=== PATIENT | male | born 1980 | race Caucasian/White ===

== ENCOUNTER 2018-07-08 14:22 | Emergency (ER) | payer MEDICAID, SELFPAY ==
[2018-07-08 14:23] VITALS: BP 155/99; PULSE 104; RESP 18; TEMP 36.2; O2SAT 99; BMI 23.3
--- NOTE | 2018-07-08 15:07 | ED.VISSUMM ---
- ER Visit Summary Date of Service: 07/08/18 Chief Complaint: Left flank pain History of Present Illness: The patient is a 37 M presenting with left flank pain. Patient states this started after lunch today. He has pain in the left flank. He states this morning he noted blood in his urine. He has a family history of kidney stones, no personal history of kidney stones. He has nausea with no vomiting. No fever. Denies other complaints. Physical Examination: Vitals are stable. Patient is afebrile. Alert no acute distress. HEENT exam is unremarkable. Neck is supple. Lungs are clear and equal bilaterally. Heart is regular rate and rhythm. Abdomen is soft nontender nondistended. No guarding or rebound Back: Left CVA tenderness Extremities are unremarkable. Skin is warm and dry. Remainder of exam is unremarkable. Emergency Department Course and Treatment: Patient was given IV morphine, zofran, toradol. CT flank shows left hydronephrosis secondary to 6 mm calculus at the ureteropelvic junction. Urinalysis shows 0 white blood cells, over 100 red blood cells. On reevaluation, patient is resting comfortably. He is given prescription for [place] and Zofran. Advised to follow-up with . Advised return to ED if worsening complaints. Disposition: Discharge home Impression: Urolithiasis This note was generated with [employer] dictation software. It may contain incorrect words, spelling, and punctuation that were not noted in review of the chart prior to signing ED Disposition - Plan for ED Patient: Referrals: Ramiro Sheets MD [Primary Care Provider] -
--- NOTE | 2018-07-08 15:09 | CT_ITS ---
STUDY: CT ABDOMEN AND PELVIS WITHOUT CONTRAST REASON FOR EXAM: Male, 37 years old. Left flank pain, hematuria. RADIATION DOSAGE (If Supplied By Facility): CTDIvol = ( 12.15 ) mGy, DLP = ( 682.99 ) mGycm TECHNIQUE: Transaxial images were obtained from the dome of the diaphragm to the symphysis pubis without oral contrast, and without intravenous contrast. Sagittal and coronal images were reconstructed. Individualized dose optimization techniques were used for this CT. COMPARISON: None. FINDINGS: Body wall soft tissues: No acute process. Osseous structures: No acute process. Mild scoliosis. Minimal lumbar spondylosis without evidence of significant stenosis. There is mild foraminal narrowing on the right at L5-S1 secondary to disc narrowing and posterior lateral disc margin osteophytic lipping. Inferior chest: Lung bases clear, normal distal esophagus, mild cardiomegaly, ectasia in particular of the left ventricle compared to the other chambers, coronary calcifications present in the proximal circumflex, proximal LAD, distal RCA. Hepatobiliary: Unremarkable liver, gallbladder and biliary tree. Pancreas: No acute process. Spleen: Normal. Adrenal glands: Normal. Urogenital: 3 punctate nonobstructing calyceal calculi are present in the right kidney without right-sided hydronephrosis or hydroureter. There is mild acute left hydronephrosis with renal plethora, perinephric stranding, grade 1 bordering on grade 2 pelvocaliectasis, retained nonobstructing calyceal calculi in the mid polar and inferior pole calyces, the largest measuring about 6 mm, calculus at the ureteropelvic junction measuring approximate 6 mm contributing to obstruction. Distal ureters normal. Unremarkable urinary bladder, prostate and seminal vesicles. Grossly simple appearing cyst of the left kidney measures 11.6 mm, oval shaped, sharply circumscribed margins, central water density. Pelvic floor and sidewalls and retroperitoneum: No mass or adenopathy. Vasculature: No acute process. Stomach: No acute process. Small bowel and mesentery: No acute process. Large bowel: Normal appendix. Unremarkable large bowel and rectum. Free fluid or free air: None. CT/Abdomen/Pelvis without Cont IMPRESSION: Left hydronephrosis secondary to 6 mm calculus at the ureteropelvic junction. Retained calyceal calculi in the right and left kidneys more numerous and larger on the left. Grossly simple appearing left renal cyst measuring 11.6 mm, incompletely characterized on noncontrast CT. Mild cardiomegaly. Ectasia in particular of the left ventricle compared to the other chambers. Coronary calcifications unusual for the patient's age. Electronically Signed: Lawson Ferris MD at 16:27 EST Tel , Service support ,
[2018-07-08] MEDS: Morphine 4 MG/ML Syringe IV (15:47)
[2018-07-08] MEDS: Ondansetron 4 MG/2 ML Vial IV (15:47)
[2018-07-08] MEDS: Ketorolac 30 MG/ML Syringe IV (15:48)
[2018-07-08 16:11] LABS: Bacteria 0 SEEN /hpf (None Seen); Mucous, Urine 0 SEEN /hpf (<or=2+); Squamous Epithelial Cells - UA 0 SEEN /hpf (0-5); White Blood Cells 0 SEEN /hpf (0-5)
[2018-07-08 16:36] LABS: Color, Urine Yellow (Yellow); Glucose, Dipstick Normal (Normal); Ketone-Dipstick 5 mg/dl (Negative); Leukocyte Esterase-Dipstick 25 /ul (Negative); Nitrite-Dipstick Negative (Negative); Occult Blood-Urine 250 /ul (Negative); Protein-Dipstick 30 mg/dl (Negative); Specific Gravity, Urine 1.015 (1.002-1.030); Urine Bilirubin Dipstick Negative (Negative); Urine Clarity Cloudy (Clear); Urine Urobilinogen Normal (Normal)
[2018-07-08 16:49] LABS: Red Blood Cells-Urine > 100 SEEN /hpf (0-5)
--- NOTE | 2018-07-08 16:54 | DCINST.ED_ITS ---
ED Disposition - Plan for ED Patient: Instructions: ED Stone Renal W Colic Prescriptions: Hydrocodone Bitart/Apap 5-325 [[place] 5MG-325MG] 1 tablet PO Q6H PRN PRN 3 Days #10 tablet PRN Reason: Pain Ondansetron [Zofran Odt] 4 mg PO Q8H PRN PRN #10 tablet PRN Reason: Nausea Referrals: Ramiro Sheets MD [Primary Care Provider] - Salvador Rush MD [STAFF PHYSICIAN] -
[2018-07-08 17:25] VITALS: BP 131/89; PULSE 86; RESP 16; O2SAT 97
== END 2018-07-08 17:28 | disposition home or self-care (01) ==
PROVIDERS: Emergency Provider Emergency Medicine; Family Provider Family Medicine; PCP Family Medicine
DX: N13.2 Hydronephrosis with renal and ureteral calculous obstruction (principal); I10 Essential (primary) hypertension; E78.00 Pure hypercholesterolemia, unspecified; Z84.1 Family history of disorders of kidney and ureter
CPT/HCPCS: 74176; 81001; 96374; 96375; 99283; A4216; J2405

== ENCOUNTER → 2021-03-02 17:09 | Outpatient (CLI) | payer MEDICAID, SELFPAY ==
--- NOTE | 2021-03-02 17:42 | CT_ITS ---
STUDY: CT ABDOMEN AND PELVIS WITHOUT CONTRAST REASON FOR EXAM: Male, 40 years old. Hematuria RADIATION DOSAGE (If Supplied By Facility): CTDIvol = ( 10.29 ) mGy, DLP = ( 570.84 ) mGycm TECHNIQUE: Transaxial images were obtained from the dome of the diaphragm to the symphysis pubis without oral contrast, and without intravenous contrast. Sagittal and coronal images were reconstructed. Individualized dose optimization techniques were used for this CT. COMPARISON: 07/08/2018 FINDINGS: The visualized lung bases demonstrate atelectasis and some groundglass opacity. The visualized portions of the heart are within normal limits. Normal liver. Normal gallbladder and extrahepatic biliary system. Normal spleen. Normal pancreas. Normal bilateral adrenal glands. Normal right kidney. Normal left kidney. There are multiple bilateral coarse renal stones most notably however is an obstructing stone in the distal left ureter measuring up to 6 mm. Normal visualized stomach. Normal small intestine. Normal colon. The appendix is visualized and appears normal. Normal abdominal aorta. Normal inferior vena cava. Normal retroperitoneum. Multiple bladder calculi. There are prostatic calcifications. Normal abdominal wall. Normal osseous structures. CT/Abdomen/Pelvis without Cont IMPRESSION: Obstructing stone of the distal left ureter with moderate associated hydroureteronephrosis. Bladder calculi. Multiple coarse bilateral nonobstructing renal calyceal stones. Electronically Signed: Alejo Ledesma MD at 18:21 EDT Tel , Service support ,
== END ==
PROVIDERS: PCP Family Medicine
DX: R31.0 Gross hematuria (principal); R10.9 Unspecified abdominal pain
CPT/HCPCS: 74176

== ENCOUNTER 2021-03-03 09:02 | Emergency (ER) | payer MEDICAID, SELFPAY ==
[2021-03-03 09:03] VITALS: BP 166/104; PULSE 111; RESP 16; TEMP 36; O2SAT 98; BMI 28.4
--- NOTE | 2021-03-03 09:28 | EDS_ITS ---
HPI History of Present Illness Chief Complaint: Flank Pain Informant: patient and other Onset/Context/Timing Onset: Yesterday Context: Sudden Onset Timing: Continuous Quality: Burning Location: Left flank Worsened by: Nothing Relieved by: Nothing Associated Symptoms Associated Symptoms: Nausea, vomiting, hematuria Narrative Narrative: Patient presents with left flank pain that began yesterday. Patient states it began suddenly. Patient states it radiates into his left lower abdomen. Patient describes his pain as burning. Patient states nothing makes it better nothing makes it worse. Patient noted some blood in his urine today. Patient had an outpatient CT scan done yesterday which showed a left distal ureteral calculus measuring up to 6 mm. Patient states his pain became worse today. Patient had nausea and vomiting yesterday. Prior similar symptoms: Yes PFSH PFSH Medical History (Updated 03/03/21 @ 12:[address] Harman Toro DO) Kidney stone Home Medications atorvastatin 20 mg PO QHS 07/08/18 [History Last Taken Unknown] clonidine HCl 0.1 mg PO BID 07/08/18 [History Last Taken Unknown] fenofibrate nanocrystallized 145 mg PO DAILY 07/08/18 [History Last Taken Unknown] folic acid 0.4 mg PO DAILY@0800 07/08/18 [History Last Taken Unknown] garlic 350 mg PO DAILY 07/08/18 [History Last Taken Unknown] loratadine [Claritin] 10 mg PO DAILY 07/08/18 [History Last Taken Unknown] uipbjezu-tnk-QW-lycopen-lutein [Certavite Sr-Antioxidant Tab] 1 ea PO DAILY 07/08/18 [History Last Taken Unknown] omega-3 fatty acids-fish oil [Fish Oil 1,000 mg Capsule] 3 ea PO DAILY 07/08/18 [History Last Taken Unknown] ondansetron 4 mg PO Q8H PRN PRN #10 tab 07/08/18 [Rx Last Taken Unknown] oxycodone-acetaminophen 1 tab PO Q6H PRN PRN 3 Days #12 tablet 03/03/21 [Rx Last Taken Unknown] Allergy/AdvReac Type Severity Reaction Status Date / Time risperidone [From Risperdal] Allergy Unknown Verified 03/03/21 09:07 Surgical History no surgical history no surgical history Social History Smoking Status: Never smoker ROS ROS ED Constitutional Constitutional ED: Reports sweats; Denies chills or fever(s) Eyes Eyes: Denies blurry vision or change in vision ENT ENT ED: Denies rhinorrhea or sore throat Cardiovascular Cardiovascular: Denies chest pain or palpitations Respiratory/Chest Respiratory/Chest: Denies cough or dyspnea Gastrointestinal Gastrointestinal: Reports abdominal pain, nausea and vomiting Genitourinary Genitourinary ED: Reports hematuria; Denies dysuria Musculoskeletal Musculoskeletal: Reports back pain; Denies neck pain Integumentary Denies abscess or rash Neurologic Neurologic: Reports headache(s); Denies weakness Allergic/Immunologic Allergic/Immunologic ED: Denies mouth swelling or urticaria EXAM Physical Exam Const Vital Signs: 03/03/21 09:03 Temperature 96.8 F L Temperature Source Temporal Pulse Rate 111 H Respiratory Rate 16 Blood Pressure 166/104 H Blood Pressure Mean 124 Pulse Ox 98 Oxygen Delivery Method Room Air Positive well nourished and well developed General Appearance ED: well developed HEENT Reports moist mucous membranes Neck supple and no JVD Resp normal respiratory effort and clear to auscultation bilaterally Cardio regular rate, regular rhythm and no murmurs GI normal to inspection, nondistended, normoactive bowel sounds Palpation: soft and tender LLQ; Negative for guarding or rebound tenderness present Back/Spine General Back: CVA tenderness left Extremity normal to inspection General Extremety ED: Negative for edema or tenderness General Extremity: Negative for edema Neuro oriented x3, CN's II-XII intact bilaterally and no sensory deficits noted Sensorium / Orientation: alert Motor Exam: strength 5/5 throughout Psych mental status grossly normal Skin no rashes or lesions noted MDM MDM MDM Narrative Medical decision making narrative: Patient was given IV fluids, morphine, Zofran, and Toradol. CBC shows a leukocytosis of 16.4. Urinalysis does not show any evidence of urinary tract infection. Basic metabolic profile was within normal limits. Patient is feeling better on reevaluation. Patient was instructed to drink plenty of fluids. Patient was given a prescription for Percocet. Patient was given a referral for urology. Patient was instructed to return if worse in any way. Patient and caregiver understood and were agreeable with the plan. All questions were answered. Lab Data Attestation: I reviewed the patient's lab results. Labs: Laboratory Results - last 24 hr 1003/03/21 03/03/21 09:25 09:25 10:28 WBC 16.4 H RBC 5.39 Hgb 15.8 Hct 46.3 MCV 85.9 MCH 29.3 MCHC 34.1 RDW Std Deviation 40.0 RDW Coeff of Jaime 13.0 Plt Count 400 MPV 9.1 Immature Gran % (Auto) 0.500 Neut % (Auto) 82.4 H Lymph % (Auto) 11.9 L [place] % (Auto) 3.8 Eos % (Auto) 0.9 Baso % (Auto) 0.5 Absolute Neuts (auto) 13.5 H Absolute Lymphs (auto) 1.95 Nucleated RBC % 0 Sodium 137 Potassium 3.8 Chloride 104 Carbon Dioxide 25.0 Anion Gap 8 BUN 17 Creatinine 1.45 H Estim Creat Clear Calc 59.89 Est GFR (MDRD) Af Amer 69 Est GFR (MDRD) Non-Af 57 L BUN/Creatinine Ratio 11.7 Glucose 123 H Calcium 10.2 H Urine Color Yellow Urine Clarity Clear Urine pH 8.0 Ur Specific [place] 1.015 Urine Protein Negative Urine Glucose (UA) Normal Urine Ketones Negative Urine Occult Blood 50 H Urine Nitrite Negative Urine Bilirubin Negative Urine Urobilinogen Normal Ur Leukocyte Esterase Negative Urine RBC 5-10 SEEN Urine WBC 0-5 SEEN Ur Squamous Epith Cells 0-5 SEEN Urine Bacteria RARE Urine Mucus 1+ Discharge Plan Triage Chief Complaint: Flank Pain ED Provider: Harman Toro Dx/Rx/DC Orders Clinical Impression: Calculus of distal left ureter Instructions: ED Kidney Stone w/ Colic Prescriptions: New oxycodone-acetaminophen [oxycodone-acetaminophen] 1 TABLET tablet 1 tab PO Q6H PRN PRN (Reason: Pain) 3 Days Qty: 12 RF: 0 No Action clonidine HCl 0.1 MG tablet 0.1 mg PO BID RF: 0 atorvastatin 20 MG tablet 20 mg PO QHS RF: 0 folic acid 0.4 MG tablet 0.4 mg PO DAILY@0800 RF: 0 feyihltt-hce-FZ-lycopen-lutein [CertaVite Senior] 1 EACH tablet 1 ea PO DAILY RF: 0 fenofibrate nanocrystallized 145 MG tablet 145 mg PO DAILY RF: 0 omega-3 fatty acids-fish oil [Fish Oil] 1 EACH capsule 3 ea PO DAILY RF: 0 loratadine [Claritin Liqui-Gel] 10 MG capsule 10 mg PO DAILY RF: 0 garlic 200 MG tablet 350 mg PO DAILY RF: 0 ondansetron 4 MG tablet 4 mg PO Q8H PRN PRN (Reason: Nausea) Qty: 10 RF: 0 Primary Care Provider: Ramiro Sheets Referrals: Ramiro Sheets MD [Primary Care Provider] - 3-5 Days Salvador Rush MD [STAFF PHYSICIAN] - 3-5 Days Disposition Disposition: Home, Self Care
[2021-03-03 09:39] LABS: Absolute Lymphocyte Count 1.95 X10^3/uL (0.83-4.51); Absolute Neutrophil Count 13.5 X10^3/uL (2.0-7.7); Basophil# 0.08 X10^3/uL; Basophil% 0.5 % (0-1); Eosinophil# 0.15 X10^3/uL; Eosinophils% 0.9 % (0-5); Hematocrit 46.3 % (40-54); Hemoglobin 15.8 g/dL (13.0-16.5); Lymphocyte # 1.95 X10^3/ul (0.83-4.51); Lymphocyte % 11.9 % (19-41); Mean Corp Hgb Conc 34.1 g/dL (32-36); Mean Corpuscular Hgb 29.3 pg (27.0-32.0); Mean Corpuscular Volume 85.9 fL (80-94); Mean Platelet Vol. 9.1 fl (6.2-12.0); Monocyte# 0.63 X10^3/uL; Monocyte% 3.8 % (0-10); NRBC Flagged by Analyzer 0 % (0-5); Neutrophil # 13.49 X10^3/uL (2.7-7.7); Neutrophil % 82.4 % (47-70); Platelet Count 400 K/mm3 (150-450); Red Blood Count 5.39 M/mm3 (4.6-6.2); White Blood Count 16.4 K/mm3 (4.4-11.0)
[2021-03-03 09:53] LABS: Anion Gap 8 (5-15); BUN 17 mg/dL (7-18); BUN/Creat Ratio 11.7 RATIO (10-20); Calcium,Total 10.2 mg/dL (8.5-10.1); Chloride 104 mmol/L (98-107); Creatinine, Serum 1.45 mg/dL (0.70-1.30); EST Glomerular Filtration Rate 57 mL/min (>60); Est Glom Filt Rate - Afr Amer 69 mL/min (>60); Estimated Creatinine Clearance 59.89 ml/min; Glucose 123 mg/dL (74-106); Potassium 3.8 mmol/L (3.5-5.1); Sodium Level 137 mmol/L (136-145)
[2021-03-03] MEDS: 0.9% Normal Saline 1,000 ML 1000 ML IV (10:34)
[2021-03-03 10:35] LABS: Color, Urine Yellow (Yellow); Glucose, Dipstick Normal (Normal); Ketone-Dipstick Negative (Negative); Leukocyte Esterase-Dipstick Negative /ul (Negative); Nitrite-Dipstick Negative (Negative); Occult Blood-Urine 50 /ul (Negative); Protein-Dipstick Negative (Negative); Specific Gravity, Urine 1.015 (1.002-1.030); Urine Bilirubin Dipstick Negative (Negative); Urine Clarity Clear (Clear); Urine Urobilinogen Normal (Normal)
[2021-03-03] MEDS: Ondansetron 4 MG/2 ML Vial IV (10:38)
[2021-03-03] MEDS: Ketorolac 30 MG/ML Syringe IV (10:38)
[2021-03-03] MEDS: Morphine 4 MG/ML Syringe IV (10:39)
[2021-03-03 10:41] LABS: Bacteria RARE /hpf (None Seen); Mucous, Urine 1+ /hpf (<or=2+); Red Blood Cells-Urine 5-10 SEEN /hpf (0-5); Squamous Epithelial Cells - UA 0-5 SEEN /hpf (0-5); White Blood Cells 0-5 SEEN /hpf (0-5)
[2021-03-03 12:28] VITALS: PULSE 71; RESP 16; O2SAT 99
--- NOTE | 2021-03-03 12:28 | ED.RN ---
THIS NURSE REVIEWED D/C INSTRUCTIONS WITH PT AND CIVIL RIGHTS REPRESENTATIVE. BOTH VERBALIZED UNDERSTANDING OF INSTRUCTIONS. IV D/C. IV CATHETER INTACT. PT TOLERATED WELL. PT DENIES FURTHER NEEDS OR QUESTIONS AT THIS TIME. PT AMBULATES FROM ROOM ON OWN WITHOUT ASSISTANCE FROM STAFF
== END 2021-03-03 12:37 | disposition home or self-care (01) ==
PROVIDERS: Emergency Provider Emergency Medicine; PCP Family Medicine
DX: N20.2 Calculus of kidney with calculus of ureter (principal)
CPT/HCPCS: 80048; 81001; 85025; 96361; 96374; 96375; 99283; J7030; A4216; J2405

== ENCOUNTER → 2022-02-23 | Outpatient (CLI) | payer MEDICAID, SELFPAY ==
[2022-02-23 08:50] LABS: Hematocrit 45.8 % (40-54); Hemoglobin 15.4 g/dL (13.0-16.5); Mean Corp Hgb Conc 33.6 g/dL (32-36); Mean Corpuscular Hgb 29.1 pg (27.0-32.0); Mean Corpuscular Volume 86.4 fL (80-94); Mean Platelet Vol. 9.4 fl (6.2-12.0); Platelet Count 382 K/mm3 (150-450); RBC Distribution Width CV 13.4 % (11.6-14.6); White Blood Count 9.8 K/mm3 (4.4-11.0)
[2022-02-23 09:17] LABS: ALB/GLOB Ratio 1.2 RATIO (0.9-2.4); AST(SGOT) 53 U/L (15-37); Alanine Aminotransfer ALT/SGPT 120 U/L (16-61); Alkaline Phosphatase 72 U/L (45-117); Anion Gap 8 (5-15); BUN 10 mg/dL (7-18); BUN/Creat Ratio 9.9 RATIO (10-20); Calcium,Total 9.5 mg/dL (8.5-10.1); Chloride 108 mmol/L (98-107); Creatinine, Serum 1.01 mg/dL (0.70-1.30); EST Glomerular Filtration Rate 86 mL/min (>60); Est Glom Filt Rate - Afr Amer 104 mL/min (>60); Globulin 3.4 g/dL (2.2-4.2); Glucose 113 mg/dL (74-106); Potassium 3.7 mmol/L (3.5-5.1); Protein, Total 7.4 g/dL (6.4-8.2); Sodium Level 140 mmol/L (136-145)
[2022-02-23 09:21] LABS: Hemoglobin A1c 5.8 % (3.8-5.6)
[2022-02-26 02:48] LABS: Cholesterol 199 mg/dL (200); High Density Lipoprotein 35 mg/dL; Triglycerides 239 mg/dL; Very Low Density Lipoprotein 48 mg/dL (5-40)
[2022-02-27 17:52] LABS: Trileptal-Oxcarbazepine 22 ug/mL (10-35)
== END | disposition home or self-care (01) ==
LOC: LAB 07:58
PROVIDERS: PCP Family Medicine; Referring Provider Psychiatry & Neurology Child & Adolescent Psychiatry; Visit Provider Psychiatry & Neurology Child & Adolescent Psychiatry
DX: Z79.899 Other long term (current) drug therapy (principal)
CPT/HCPCS: 36415; 80053; 80061; 82542; 83036; 85027

== ENCOUNTER 2022-04-17 09:39 | Emergency (ER) | payer MEDICAID, SELFPAY ==
[2022-04-17 09:39] VITALS: BP 165/106; PULSE 87; RESP 16; TEMP 36.3; O2SAT 97; BMI 30.9
--- NOTE | 2022-04-17 10:21 | CT_ITS ---
STUDY: CT BRAIN WITHOUT CONTRAST REASON FOR EXAM: Male, 41 years old. Encephalopathy RADIATION DOSAGE (If Supplied By Facility): CTDIvol = ( 44.99 ) mGy, DLP = ( 779.24 ) mGycm TECHNIQUE: Transaxial CT imaging of the brain was performed without administration of intravenous contrast material. Individualized dose optimization techniques were used for this CT. COMPARISON: No relevant priors. FINDINGS: Normal soft tissue structures. Normal calvarium. Normal size ventricles and extra-axial spaces for the patient''s age. Normal white matter tracts of the cerebral hemispheres. Normal basal ganglia and thalami. Normal brainstem. Normal cerebellum. There is no intracranial hemorrhage. There are no findings of an acute ischemic infarction. Mucous retention cyst in the left maxillary sinus consistent with chronic sinusitis. CT/Brain/Head without Contrast IMPRESSION: Normal unenhanced CT scan of the brain. Electronically Signed: Lawson Bal MD at 10:50 EST ,
--- NOTE | 2022-04-17 10:21 | EX.ED.DYSGE1 ---
HPI History of Present Illness Chief Complaint: Hypertension Narrative Narrative: 41-year-old male past medical history of IDD, hyper cholesterolemia presents with caregiver because of headaches and elevated blood pressure. They state that he is not on blood pressure medication, but today his blood pressure was elevated above 200 systolic. He denies any chest pain or shortness of breath. No nausea or vomiting, no other symptoms. While his blood pressure may have come down and is currently 165/106, they state that he needs to be evaluated. He has been getting headaches recently and he states he gets them all the time. He took Tylenol this morning. He has an appoint with his primary care provider on to address his blood pressure readings which have been elevated recently, but caregiver states that he had a family member recently so he is under a lot of stress. [facility] Medical History Kidney stone Home Medications atorvastatin 20 mg tablet 20 mg PO QHS 07/08/18 [History Last Taken Unknown] clonidine HCl 0.1 mg tablet 0.1 mg PO BID 07/08/18 [History Last Taken Unknown] fenofibrate nanocrystallized 145 mg tablet 145 mg PO DAILY 07/08/18 [History Last Taken Unknown] folic acid 400 mcg tablet 0.4 mg PO DAILY@0800 07/08/18 [History Last Taken Unknown] garlic 200 mg tablet 350 mg PO DAILY 07/08/18 [History Last Taken Unknown] loratadine 10 mg capsule (Claritin Liqui-Gel) 10 mg PO DAILY 07/08/18 [History Last Taken Unknown] krwenbcx-rwq-xsmxf acid 0.4 mg-lycopene 300 mcg-lutein 250 mcg tablet (CertaVite Senior) 1 ea PO DAILY 07/08/18 [History Last Taken Unknown] omega-3 fatty acids-fish oil 340 mg-1,000 mg capsule (Fish Oil) 3 ea PO DAILY 07/08/18 [History Last Taken Unknown] ondansetron 4 mg disintegrating tablet 4 mg PO Q8H PRN PRN Nausea #10 tabs 07/08/18 [Rx Last Taken Unknown] oxycodone-acetaminophen 5 mg-325 mg tablet 1 tab PO Q6H PRN PRN Pain 3 days #12 TABLETS 03/03/21 [Rx Last Taken Unknown] dexamethasone 6 mg tablet 6 mg PO DAILY #5 tabs 02/09/22 [Rx Last Taken Unknown] quetiapine 150 mg tablet,extended release 24 hr tablet PO 02/09/22 [History Last Taken Unknown] Allergy/AdvReac Type Severity Reaction Status Date / Time risperidone [From Risperdal] Allergy Unknown Verified 04/17/22 09:43 Social History Smoking Status: Never smoker ROS ROS ED ROS Narrative Constitutional: No fever, no chills. Elevated blood pressure reading this morning above 200 systolic. HEENT: No sore throat. No neck pain. No loss of vision. No rhinorrhea. Cardiovascular: No chest pain. No palpitations. No pedal edema. Respiratory: No cough, no shortness of breath. Abdominal: No abdominal pain. No nausea. No vomiting. Genitourinary: No dysuria. No hematuria. Musculoskeletal: No myalgias. No arthralgias. Neurologic: Positive headaches. No dizziness. No lightheadedness. Skin: No rash. No change in color. Psychiatric: No depression. No anxiety. EXAM Physical Exam Narrative Exam Narrative: Afebrile. Vital signs noted. HEENT: Normocephalic. Atraumatic. PERRL, EOMI. Neck soft and supple. No point tenderness or step off. Cardiovascular: Regular rate and rhythm. No murmurs, rubs, or gallops appreciated. Respiratory: No tachypnea. Lungs clear to auscultation bilaterally. Gastrointestinal: Abdomen soft, nontender, with normoactive bowel sounds. No rebound or guarding. Neurological: Awake. Alert. Oriented x3, consistent with IDD, nonfocal, nonlateralizing. Skin: No rash. Normal color. No pallor. Musculoskeletal: No pedal edema. Full range of motion extremities. Const Vital Signs: 04/17/22 09:39 Temperature 97.3 F L Temperature Source Temporal Pulse Rate 87 Respiratory Rate 16 Blood Pressure 165/106 H Blood Pressure Mean 125 Pulse Ox 97 Oxygen Delivery Method Room Air MDM MDM MDM Narrative Medical decision making narrative: CT of the brain was obtained. His current blood pressure is 165/106. I see in his medications that he used to take clonidine 0.1 mg twice a day, but that was in 2019. They confirmed that he takes clonidine 0.2 mg, but this may not be necessary for his blood pressure. Blood pressure reading currently is 165/106. This is come down considerably from his reported above [address] of the brain was obtained which shows no evidence of acute hemorrhage. At this point in time, I feel he can be discharged to follow-up with his primary care provider. They already have a scheduled appointment. Return instructions were reviewed. Disposition is discharged home in stable condition. Radiography Diagnostic Testing: Clinical Impression(s) from Imaging Studies Brain CT 04/17/22 10:21 IMPRESSION: Normal unenhanced CT scan of the brain. Electronically Signed: Lawson Bal MD at 10:50 EST , Discharge Plan Triage Chief Complaint: Hypertension ED Provider: Guero Foster Dx/Rx/DC Orders Clinical Impression: Headache, Elevated blood pressure reading Instructions: ED Hypertension, To Be Confirmed Prescriptions: No Action quetiapine 150 mg tablet extended release 24 hr PO Label Comments: TAKE 1 TABLET BY MOUTHEONCE DAILY AT 4PM dexamethasone 6 mg tablet 6 mg PO DAILY Qty: 5 0RF clonidine HCl 0.1 MG tablet 0.1 mg PO BID atorvastatin 20 MG tablet 20 mg PO QHS folic acid 0.4 MG tablet 0.4 mg PO DAILY@0800 owbuozlh-ebg-GN-lycopen-lutein [CertaVite Senior] 1 EACH tablet 1 ea PO DAILY fenofibrate nanocrystallized 145 MG tablet 145 mg PO DAILY omega-3 fatty acids-fish oil [Fish Oil] 1 EACH capsule 3 ea PO DAILY loratadine [Claritin Liqui-Gel] 10 MG capsule 10 mg PO DAILY garlic 200 MG tablet 350 mg PO DAILY ondansetron 4 MG tablet 4 mg PO Q8H PRN PRN (Reason: Nausea) Qty: 10 0RF oxycodone-acetaminophen [oxycodone-acetaminophen] 1 TABLET tablet 1 tab PO Q6H PRN PRN (Reason: Pain) 3 Days Qty: 12 0RF Primary Care Provider: Ramiro Sheets Referrals: Ramiro Sheets MD [Primary Care Provider] - [facility] appointment Disposition Disposition: Home, Self Care
[2022-04-17 11:29] VITALS: BP 166/95; PULSE 67; RESP 16; O2SAT 97
== END 2022-04-17 11:29 | disposition home or self-care (01) ==
PROVIDERS: Emergency Provider Emergency Medicine; PCP Family Medicine; Visit Provider Emergency Medicine
DX: R51.9 Headache, unspecified (principal); R03.0 Elevated blood-pressure reading, without diagnosis of hypertension; E78.00 Pure hypercholesterolemia, unspecified; Z63.4 Disappearance and death of family member
CPT/HCPCS: 70450; 99282

== ENCOUNTER → 2022-08-09 | Outpatient (CLI) | payer MEDICAID, SELFPAY ==
[2022-08-09 10:38] LABS: ALB/GLOB Ratio 1.3 RATIO (0.9-2.4); AST(SGOT) 63 U/L (15-37); Alanine Aminotransfer ALT/SGPT 138 U/L (16-61); Albumin, Serum 4.1 g/dL (3.2-5.0); Alkaline Phosphatase 56 U/L (45-117); Anion Gap 5 (5-15); BUN 13 mg/dL (7-18); BUN/Creat Ratio 11.7 RATIO (10-20); Chloride 105 mmol/L (98-107); Cholesterol 151 mg/dL (200); Creatinine, Serum 1.11 mg/dL (0.70-1.30); EST Glomerular Filtration Rate 77 mL/min (>60); Est Glom Filt Rate - Afr Amer 93 mL/min (>60); Globulin 3.2 g/dL (2.2-4.2); Glucose 91 mg/dL (74-106); High Density Lipoprotein 42 mg/dL; Potassium 3.9 mmol/L (3.5-5.1); Protein, Total 7.3 g/dL (6.4-8.2); Sodium Level 136 mmol/L (136-145); Triglycerides 142 mg/dL; Very Low Density Lipoprotein 28 mg/dL (5-40)
[2022-08-09 10:43] LABS: Hemoglobin A1c 5.4 % (3.8-5.6)
== END | disposition home or self-care (01) ==
LOC: LAB 08:53
PROVIDERS: PCP Family Medicine; Visit Provider Psychiatry & Neurology Child & Adolescent Psychiatry
DX: Z79.899 Other long term (current) drug therapy (principal)
CPT/HCPCS: 36415; 80053; 80061; 83036

== ENCOUNTER → 2023-05-29 | Outpatient (CLI) | payer MEDICAID, SELFPAY | END | disposition home or self-care (01) | LOC: LABSPEC 12:12 | PROVIDERS: PCP Family Medicine; Referring Provider Physician Assistant; Visit Provider Physician Assistant | DX: R30.0 Dysuria (principal) | CPT/HCPCS: 87077; 87086; 87088 ==

== ENCOUNTER 2023-07-16 10:00 | Outpatient (RCR) | payer MEDICAID, SELFPAY ==
--- NOTE | 2023-06-03 12:52 | HP.PTEVAL_ITS ---
Patient's Visit Information Visit Information Visit Information: CHAN ACE is a 42 year old M referred to Physical Therapy by Dr. 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 Date of Evaluation: 06/03/23 Physical Therapist: Milly Andrew PT, Cert MDT Visit Plan Frequency: 2x /Week Duration: 4-6 Weeks Plan: POSTURE CORRECTION/STRENGTHENING, INSTRUCTION IN APPROPRIATE BODY MECHANICS WITH WORK SIMULATION AND ACTIVITY MODIFICATIONS. DLS STARTING WITH A NEUTRAL SPINE PROGRESSING ROM TOLERATED. LATOYA LE ROM, STRETCHING AND STRENGTHENING. HEP INSTRUCTION. 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 PATIENT LIVES IN A PRISON WITH EXHAUST AND MUFFLER FITTER CARE AVAILABLE. Disability: MILD INTELECTUALLY DISABLITIY. IMPULSE CONTROL DISORDER. Delusional Personality Disorder. Present symptoms: MID BACK PAIN. SHARP PAIN IN L THIGH (PATIENT POINTS TO PROXIMAL L THIGH AND REPORTS IT STARTED WHEN HE GOT TO WORK TODAY AND TODAY IS THE FIRST DAY HE HAD IT). Present since: ABOUT A YEAR Pain Scale: WORST 9/10, LEAST 7/10 Currently: 9/10 Is it getting better, worse or staying the same: STAYING THE SAME Commenced as a result of: NO APPARENT REASON OTHER THAN SLEEPING ON THE FLOOR FROM TIME TO TIME. Symptoms at onset: SAME Worse: WHEN I LIFT UP THOSE HEAVY PLATES, TAKING THE TRASH OUT AND LIFTING IT UP TO THROW IT IN THE DUMPSTER. Better: SITTING IN THE RECLINER UPSTAIRS Disturbed sleep: YES Previous history/Previous treatment: PAIN MEDICATION PRESCRIBED BY DOCTOR A YEAR AGO AND STILL TAKES IT ON AND OFF. SEEMED TO HELP INITALLY BUT NOT HELPING MUCH NOW. ICE PACKS. NO BACK SURGERY OR CHIROPRACTIC. Coughing/sneezing/straining: POSITIVE FOR INCREASED BACK PAIN. Gait: NO AD USE. WALKING USUALLY DOES NOT INCREASE PAIN UNLESS REALLY FAR LIKE SHOPPING AT [employer]. Bowel or Bladder Dysfunction: NO Accidents: NO Unexplained weight loss: NO Imaging: BACK X-RAYS ABOUT A YEAR AGO THAT SHOWED MODERATE ARTHRITIS PER SENIOR SHAREPOINT ARCHITECT REPORT. PMH/Recent major surgery: HTN, HIGH CHOLESTEROL, SEE DISABILITIES ABOVE. FLAT FEET - ORIF LATOYA ANKLES. OTHER: PATIENTS CAREGIVER NATALIE IS WITH HIM THROUGHOUT THE EVAL TODAY. Objective Objective: Sitting/Standing Posture: POOR. FH. RSH'S. INCREASED KYPHOSIS. DECREASED LORDOSIS. NO RELEVANT LATERAL SHIFT. Active Correction of posture: ABLE TO CORRECT BUT DOES NOT MAINTAIN. Other Observations: POOR POSTURAL AWARENESS. INDEP GAIT AND TRANSFERS. RESPONDS BETTER TO VISUAL CUES THAN VERBAL CUES ALONE. GENERALLY PLEASANT AND COOPERATIVE TO WORK WITH. EXPRESSING APPRECIATION FOR HELP WITH HIS PAIN. FAIR HISTORIAN BUT LOOKS TO HIS CAREGIVER TO HELP WITH HIS HISTORY AT TIMES. Sensory deficit: LATOYA UE AND LE LIGHT TOUCH SENSATION APPEARS GROSSLY INTACT AND SYMMETRICAL ROM deficit: LATOYA UE AND LE ROM WFL BUT LE HS AND CALF TIGHTNESS EVIDENT. Motor deficit: LATOYA UE AND LE STRENGTH GROSSLY 5/5 WITH MMT'ING AND PATIENT DENIES INCREASED PAIN WITH TESTING AND DOES NOT EXHIBIT PAIN BEHAVIOR WITH TESTING. Reflexes: UNABLE TO ELICIT LATOYA UE DTR'S BUT LATOYA LE DTR'S 2/3. Lumbar mvmt loss: flex - MIN ext - MOD R SG - MOD L SG - MOD PATIENT REPORTS MILD INCREASED MID BACK PAIN WITH LUMBAR ROM TESTING ALL PLANES. THORACIC MVMT LOSS: R ROT - MOD L ROT - MOD PATIENT C/O INCREASED MID BACK PAIN WITH R THORACIC ROT BUT NOT L ROT TESTING ALTHOUGH HE HAS A LITTLE BIT MORE MOTION TO THE R THAN LEFT. CERVICAL ROM TESTING - PATIENT DENIES PAIN WITH CERVICAL ROM TESTING ALL PLANES AND CERVICAL ROM IS GROSSLY WFL HOWEVER L ROT OBVIOUSLY MORE LIMITED THAN R. Postural Strength: Poor. Core strength: FAIR TREATMENT: THER ACT - INSTRUCTED PATIENT/CAREGIVER IN USE OF LUMBAR SUPPORT IN SITTING, FREQUENT BREAKS FROM SITTING, MINIMIZING LIFTING THAT INCREASES BACK PAIN AND IMPORTANCE OF POSTURE CONTROL. DISCUSSED POC AND PATIENT AND CAREGIVER AGREEABLE. PATIENT RESPONDED REALLY WELL TO POSTURE CORRECTION WITH LUMBAR SUPPORT IN SITTING IN CLINIC TODAY AND REPORTED 0/10 PAIN. Balance/Special Test Scores Oswestry Low Back Score: 8 Goals Goal 1:: PATIENT WILL REPORT DECREASED BACK PAIN TO 0-3/10 X 1 WEEK TO EASE ADL'S. Goal Time Frame: 4-6 Weeks Goal 2:: PATIENT WILL HAVE INCREASED TRUNK ROM ALL PLANES WITHOUT C/O PAIN. Goal Time Frame: 4-6 Weeks Goal 3:: PATIENT WILL HAVE INCREASED TRUNK AND POSTURAL STRENGTH BY ONE GRADE Goal Time Frame: 4-6 Weeks Goal 4:: INDEP HEP Goal Time Frame: 4-6 Weeks Rehabilitation Potential Physical Therapy Diagnosis: THIS PATIENT PRESENTS TO PT WITH C/O CONSTANT MID BACK PAIN INCREASING WITH LIFTING. HE HAS DECREASED POSTURAL AND CORE STRENGTH, POSTURAL AND TRUNK STIFFNESS AND IS A GOOD CANDIDATE FOR PT. Rehabilitation Potential: Good Anticipated Interventions Patient/Client Instruction: Educate patient on: Condition, Plan of Care and Risk Factors For the Purpose of:: To improve self management Therapeutic Exercise to Include: Strength training, Body mechanics, Postural training, Flexibilty training, Neuromotor development and Dynamic Lumbar Stabilization For the Purpose of:: To decrease pain, To increase ROM, To improve muscle performance and motor function, To increase tolerance to activity/condition/po sition and To improve ability of physical actions for home/community/work/leisure Cryotherapy (ice pack, ice massage): Yes Thermo therapy (hot pack): Yes For the Purpose of:: To decrease pain, To decrease swelling/inflammation and To improve nutrient delivery to tissue Text: Thank you for the opportunity to evaluate your patient. For Medicare and Medicare HMO plans, please review the plan of care and approve it. It will need to be FAXED BACK to us at [phone] for Medicare purposes. For Medicare only, by signing this I certify the plan of care. Please let me know if there are questions or concerns regarding this plan of care. Physician Signature:_ Date:
--- NOTE | 2023-08-25 21:14 | HP.PTDCSUM ---
Discharge Summary D/C summary: It has been my pleasure to treat CHAN ACE referred by Dr. 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 Discharge Date: 07/16/23 Please see the following information for a summary of their discharge status. Subjective Subjective: PATIENT REPORTS HE IS DOING BETTER OVER-ALL AND FEELS HE CAN MANAGE WITHOUT PHYSICAL THERAPY NOW. STILL GETS MID BACK PAIN BUT IT COMES AND GOES. PROVOKED WITH LIFTING. DENIES LE SX'S. DOING HEP. Pain Back: Pain Intensity (Out of 10): 0 Overall Improvement % Improvement: 50 Objective Objective/Function: PATIENT WAS SEEN TODAY FOR RE-ASSESSMENT OF PROGRESS TOWARD THE SET PT GOALS AND THE NEED FOR FURTHER PHYSICAL THERAPY VS READINESS FOR DISCHARGE. PATIENT HAS MADE GOOD PROGRESS WITH PT, HAS TOLERATED PROGRESSIVE RESISTIVE EX WELL AND IS REPORTING TOLERATING SITTING, STANDING AND SLEEPING BETTER. HE IS APPROPRIATE FOR DISCHARGE TO [facility] AT THIS TIME. UPON EXAM TODAY: THIS PATIENT AMBULATES INDEP'LY INTO PT WITH HIS CAREGIVER. HE IS INDEP WITH GAIT AND TRANSFERS. HE IS ABLE TO FOLLOW COMMANDS FOR TESTING. LATOYA UE AND LE ROM AND STRENGTH IS GROSSLY WFL. Lumbar mvmt loss: flex - MIN ext - MOD R SG - MIN L SG - MIN PATIENT DENIES PAIN WITH LUMBAR ROM TESTING TODAY. THORACIC MVMT LOSS: R ROT - MIN L ROT - MIN PATIENT DENIES PAIN WITH THORACIC ROM TESTING TODAY. CERVICAL ROM TESTING - PATIENT DENIES PAIN WITH CERVICAL ROM TESTING ALL PLANES AND CERVICAL ROM IS GROSSLY WFL HOWEVER L ROT OBVIOUSLY MORE LIMITED THAN R. Postural Strength: FAIR PLUS Core strength: GOOD MINUS Goals Goal 1:: PATIENT WILL REPORT DECREASED BACK PAIN TO 0-3/10 X 1 WEEK TO EASE ADL'S. Goal Progress: Goal Met Goal 2:: PATIENT WILL HAVE INCREASED TRUNK ROM ALL PLANES WITHOUT C/O PAIN. Goal Progress: Goal Met Goal 3:: PATIENT WILL HAVE INCREASED TRUNK AND POSTURAL STRENGTH BY ONE GRADE Goal Progress: Goal Met Goal 4:: INDEP [facility] Goal Progress: Goal Met Plan Plan: D/C D/C Information d/c sentence: If there are questions or concerns regarding this patient's physical therapy, please feel free to call me at [phone]. Thank you for the referral of this patient. Sincerely, Milly Andrew, PT, Cert MDT Balance/Gait/Functional tests Balance/Special Test Scores Oswestry Low Back Score: 8 30 Second Chair Rise Test Seconds: 16 Improvement % Improvement: 50
== END 2023-07-16 19:00 | disposition home or self-care (01) ==
LOC: PT 10:00
PROVIDERS: PCP Family Medicine; Visit Provider Family Medicine
DX: M54.50 Low back pain, unspecified (principal); G89.29 Other chronic pain
CPT/HCPCS: 97110; 97162; 97164; 97530

== ENCOUNTER 2023-12-19 08:47 | Day surgery (SDC) | payer MEDICAID, SELFPAY ==
[2023-12-19] VITALS (9 sets, daily range): BP systolic 84–110; BP diastolic 39–76; PULSE 58–82; RESP 16; TEMP 36–36.3; O2SAT 95–98; BMI 28.3
--- NOTE | 2023-12-19 | IMM_PTH ---
PATIENT: CHAN ACE LOC: EN U#:[id number] AGE/SX: 43/M ROOM: RE12/19/[address]: Dr. Michael Laguerre DO : 1980 BED: DIS: 12/19/2023 SPEC #: [id number] RECD: 12/20/23 11:13 STATUS: HUSSEIN REQ #: [id number] LUNA: 12/19/23 00:[address]: Mcihael Laguerre DEPT: IMMUNOHISTOCHEMISTRY RECD BY: Shawn Lopez ENTERED: 12/20/23 11:14 SP TYPE: IMMUNO OTHR DR: Dr. Ramiro Sheets MD Tissues: Ileum, NOS Procedures: BCL-2 (add) CD20 (add) CD45 (add) CD5 (add) CD79A (add) KI-67 (add) CD3 (initial) PHYSICIAN & INSTITUTION [place] [address] SPECIMEN INFORMATION: Tissue Source: Terminal ileum biopsy Clinical Info: Encounter for screening for malignant neoplasm of colon Specimen Number: [id number] CPT code: 85604,24952g2 METHODOLOGY: Deparaffinized sections of prefer/formalin-fixed tissue or PAP/DQ stained slides are incubated with monoclonal/polyclonal antibodies/oligonucleotide probes. Localization is made via biotin free immunoperoxidase method. Appropriate controls are performed and reacted as expected. Results on target cell population are indicated in the following table: RESULTS: ANTIBODY / CLONE RESULT CD3 (PS1) positive CD5 (SP10) positive CD20 (L26) positive CD45 (RP2/18) positive CD79a (11E3) positive BCL-2 (bcl-2/100/D5) positive Ki-67 (30-9) positive,low These tests were developed and their performance characteristics determined by [facility]. They may not have been cleared or approved by the U.S. Food and Drug Administration. The FDA has determined that such clearance or approval is not necessary. The above immunohistochemical/dualISH markers are ordered and reviewed by the Pathologist. INTERPRETATION: Terminal ileum, biopsy: Polytypic lymphoid aggregates. SILVIANO/ 12/23/2023
[2023-12-19] MEDS: Lactated Ringers 1,000 ML 15 ML IV (09:35)
--- NOTE | 2023-12-19 09:43 | PRE.ANES_ITS ---
ASA Classification* ASA Classification ASA Classification: 2 Assessment & Plan Anesthesia* Anesthesia Assessment Anesthesia Assessment: Discussed sedation and/or anesthesia options, risks, benefits, and alternatives with patient/parents/legal guardian/POA. Questions invited. The patient/parents/legal guardian/POA seems to understand and agrees to proceed with anesthesia plan. Reviewed the physical assessment, medical history, allergy history and patient home medications list prior to surgery/procedure/anesthetic and documented any changes. Performed airway and anesthesia risk assessments. Anesthesia Type Anesthesia Type: MAC (see written pre-anesthesia record for full assessment) Anesthesia Focused Assessment* Temperature: 97.2 F Pulse Rate: 82 Blood Pressure: 106/76 Respiratory Rate: 16 Pulse Ox: 97 Airway Assessment Mouth opens: >3 cm Mallampati Score: II Focused Labs Anesthesia Preop lab: CBC WBC 9.8 K/mm3 (4.4-11.0) 02/23/22 08:11 RBC 5.30 M/mm3 (4.6-6.2) 02/23/22 08:11 Hgb 15.4 g/dL (13.0-16.5) 02/23/22 08:11 Hct 45.8 % (40-54) 02/23/22 08:11 Plt Count 382 K/mm3 (150-450) 02/23/22 08:11 CHEMISTRY Potassium 3.9 mmol/L (3.5-5.1) 08/09/22 08:55 Sodium 136 mmol/L (136-145) 08/09/22 08:55 BUN 13 mg/dL (7-18) 08/09/22 08:55 Creatinine 1.11 mg/dL (0.70-1.30) 08/09/22 08:55 Glucose 91 mg/dL (74-106) 08/09/22 08:55 COAG Pre-Assessment Diagnosis/Proposed Procedure Planned Operative Procedure(s): CSCOPE OA Anesthesia History 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 When Was Last Pacemaker Check QUESTION #4 FULL TEXT: You/Your Family Experience fever (hyperthermia) with Anesthesia Last Oral Intake Last Oral intake: Last Oral Intake NPO since 04:00 12/19/23 09:26 Meds taken in AM with sips of Yes 12/19/23 09:26 water? 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 Female No 12/16/23 15:36 HX of Motion Sickness No 12/16/23 15:36 HX of N/V After Surgery No 12/16/23 15:36 Non-Smoker Yes 12/16/23 15:36 Duration of Surgery greater No 12/16/23 15:36 than 60 minutes Number of Risk Factors 1 12/16/23 15:36 PONV Score Low Risk 12/16/23 15:36 Height & Weight Height & Weight: Anesthesia: Height & Weight Height 5 ft 6 in 12/19/23 09:26 Weight: 79.469 kg 12/19/23 09:26 Body Mass Index (BMI) 28.3 12/19/23 09:26 Respiratory Assessment Respiratory Assessment - edge trimming machine operator: Respiratory Tract Infection Hx - edge trimming machine operator Hx Respiratory Tract Infection No 12/16/23 15:36 STOP Sleep Apnea STOP Sleep Apnea - edge trimming machine operator: STOP Sleep Apnea - edge trimming machine operator Hx Hypertension Yes: CONTROLLED WITH MED 12/16/23 15:36 Hx Sleep Apnea No 12/16/23 15:36 CPAP BIPAP Do you snore loudly (louder Yes 12/16/23 15:36 than talking or can be heard Do you often feel tired/ Yes 12/16/23 15:36 fatigued/ sleepy during daytime? Has anyone observed you stop No 12/16/23 15:36 breathing during sleep? STOP Results Positive 12/16/23 15:36 QUESTION #5 FULL TEXT : Do you snore loudly (louder than talking or can be heard through closed doors)? 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 Specify any problems Hx of Preganancy in last 3 N/A 12/16/23 15:36 Months Nurse Filling Out Transfusion DSCHRIBER 12/16/23 15:36 & Questions: Date: 12/16/23 12/16/23 15:36 Time: 15:37 12/16/23 15:36 Patient unable to answer at this time (ie. 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 machine operator: /Reproductive Hx- edge trimming machine operator Hx Now No 12/16/23 15:36 Gestational Age (in weeks): EDC: Hx Hx Para Hx Section SAB No 12/16/23 15:36 Active Medications Active Medications: Current Medications Generic Name Dose Route Start Last Admin Trade Name Jonatanq PRN Reason Stop Dose Admin Lactated Ringer's 1,000 mls @ 15 mls/hr 12/19/23 09:15 12/19/23 09:35 IV 15 mls/hr .Q48H VIDHI Administration PFSH Medical History (Updated 12/16/23 @ 15:42 by Debora Wong) Lives in residential Arthritis Back pain Non-smoker Shortness of breath on exertion Intellectual disability Recurrent major depression in full remission Hyperlipidemia Essential hypertension Urinary tract infection with hematuria Home Medications ?Medication ?Instructions ?Recorded ?Last Taken ?Type fenofibrate nanocrystallized 145 145 mg PO DAILY 07/08/18 12/18/23 History mg tablet folic acid 400 mcg tablet 0.4 mg PO DAILY@0800 07/08/18 12/18/23 History garlic 200 mg tablet 350 mg PO DAILY 07/08/18 12/18/23 History loratadine 10 mg capsule (Claritin 10 mg PO DAILY 07/08/18 12/18/23 History Liqui-Gel) omega-3 fatty acids-fish oil 340 3 ea PO DAILY 07/08/18 12/15/23 History mg-1,000 mg capsule (Fish Oil) ammonium lactate 12 % topical cream 1 applic topical DAILY 05/29/23 12/18/23 History atorvastatin 40 mg tablet 40 mg PO DAILY 05/29/23 12/18/23 History clonidine HCl 0.2 mg tablet 0.2 mg PO BID 05/29/23 12/19/23 06:30 History doxazosin 2 mg tablet 2 mg PO QHS 05/29/23 12/18/23 History fluticasone propionate 50 2 spray intranasal DAILY 05/29/23 12/18/23 History mcg/actuation nasal spray,suspension (Allergy Relief (fluticasone)) losartan 100 mg tablet 100 mg PO DAILY 05/29/23 12/19/23 06:30 History multivitamin-ferrous 1 tab PO DAILY 05/29/23 12/18/23 History fumarate-folic acid 18 mg-400 mcg tablet (Certavite-Antioxidant) nabumetone 500 mg tablet 500 mg PO BID PRN pain 05/29/23 Unknown History quetiapine 150 mg tablet,extended 150 mg PO 1600 05/29/23 12/18/23 History release 24 hr neomycin-bacitracn Zn-polymyx 3.5 1 applic topical TID PRN dry skin 11/05/23 Unknown History mg-400 unit-5,000 unit/gram top oint (Neosporin (guj-lmi-amfay)) oxcarbazepine 600 mg tablet 600 mg PO BID 11/05/23 12/19/23 06:30 History polyethylene glycol 3350 17 238 g PO ONCE Colonoscopy prep 11/12/23 12/19/23 Rx gram/dose oral powder (Miralax) #238 grams Allergy/AdvReac Type Severity Reaction Status Date / Time risperidone (From Risperdal) Allergy ANXIETY Verified 12/19/23 09:23 Surgical History (Updated 12/16/23 @ 15:42 by Debora Wong) Hx of cystoscopy History of testicular surgery History of ankle surgery Social History (Updated 11/05/23 @ 09:22 by Fanta Quiroga) household members: other details: Lives with others in residential home number of children: 0 Smoking Status: Never smoker alcohol intake: never substance use type: does not use Review of Systems (Anesthesia) ROS Narrative System reviewed and no additional complaints, except as documented.
--- NOTE | 2023-12-19 10:00 | COLBX_PTH ---
PATIENT: CHAN ACE LOC: EN U#:[id number] AGE/SX: 43/M ROOM: RE12/19/[address]: Dr. Michael Laguerre DO : 1980 BED: DIS: 12/19/2023 SPEC #: [id number] RECD: 12/19/23 10:55 STATUS: HUSSEIN REEllen #: [id number] LUNA: 12/19/23 10:[address]: Michael Laguerre DEPT: SURGICAL PATHOLOGY RECD BY: Holli Nguyễn ENTERED: 12/19/23 11:29 SP TYPE: COLON BX OTF DR: Dr. Ramiro Sheets MD Tissues: Ileum, NOS Procedures: Surgery Specimen Level IV HEADER OPERATION: Colonoscopy with biopsy PRE-OP DIAGNOSIS: Encounter for screening for malignant neoplasm of colon TISSUE SUBMITTED: Terminal ileum biopsy MICROSCOPIC DIAGNOSIS Terminal ileum, biopsy: Focal acute ileitis with associated mucosal denudation. Polytypic lymphoid aggregates. See comment. AM.mr 12/20/2023 COMMENT A mucosal ulcer is suspected. Eosinophils are mildly increased in the lambda propria. The significance is unclear. Benign lymphoid aggregates are also present. Immunohistochemistry ([id number]) supports the above diagnosis and reveals polytypic lymphoid aggregates. Case has been reviewed in consultation with Dr. Johnson who concurs with the above diagnosis. IDC:BARNEY MICROSCOPIC DESCRIPTION Slides are reviewed. GROSS DESCRIPTION Received in fixative is one container labeled with the patient's name and designated Terminal ileum biopsy. The specimen consists of multiple irregular fragments of light sands soft tissue that in aggregate measure 1.2 x 0.3 x 0.1 cm. The specimen is totally submitted in one cassette. 12/19/2023 TC:2 CPT:77552
--- NOTE | 2023-12-19 10:05 | HP.PCM_ITS ---
HPI - General General Date of Admission: 12/19/23 Date of Service: 12/19/23 Chief Complaint: Screening colonoscopy HPI Narrative CHAN ACE, is a 43 M who presents today for screening colonoscopy. He is never had a colonoscopy in the past. He does not have any abdominal pain, chest pain or shortness of breath. REPLACED BY [facility] Medical History (Updated 12/16/23 @ 15:42 by Debora Wong) Lives in shelter Arthritis Back pain Non-smoker Shortness of breath on exertion Intellectual disability Recurrent major depression in full remission Hyperlipidemia Essential hypertension Urinary tract infection with hematuria Home Medications ?Medication ?Instructions ?Recorded ?Last Taken ?Type fenofibrate nanocrystallized 145 145 mg PO DAILY 07/08/18 12/18/23 History mg tablet folic acid 400 mcg tablet 0.4 mg PO DAILY@0800 07/08/18 12/18/23 History garlic 200 mg tablet 350 mg PO DAILY 07/08/18 12/18/23 History loratadine 10 mg capsule (Claritin 10 mg PO DAILY 07/08/18 12/18/23 History Liqui-Gel) omega-3 fatty acids-fish oil 340 3 ea PO DAILY 07/08/18 12/15/23 History mg-1,000 mg capsule (Fish Oil) ammonium lactate 12 % topical cream 1 applic topical DAILY 05/29/23 12/18/23 History atorvastatin 40 mg tablet 40 mg PO DAILY 05/29/23 12/18/23 History clonidine HCl 0.2 mg tablet 0.2 mg PO BID 05/29/23 12/19/23 06:30 History doxazosin 2 mg tablet 2 mg PO QHS 05/29/23 12/18/23 History fluticasone propionate 50 2 spray intranasal DAILY 05/29/23 12/18/23 History mcg/actuation nasal spray,suspension (Allergy Relief (fluticasone)) losartan 100 mg tablet 100 mg PO DAILY 05/29/23 12/19/23 06:30 History multivitamin-ferrous 1 tab PO DAILY 05/29/23 12/18/23 History fumarate-folic acid 18 mg-400 mcg tablet (Certavite-Antioxidant) nabumetone 500 mg tablet 500 mg PO BID PRN pain 05/29/23 Unknown History quetiapine 150 mg tablet,extended 150 mg PO 1600 05/29/23 12/18/23 History release 24 hr neomycin-bacitracn Zn-polymyx 3.5 1 applic topical TID PRN dry skin 11/05/23 Unknown History mg-400 unit-5,000 unit/gram top oint (Neosporin ([id number])) oxcarbazepine 600 mg tablet 600 mg PO BID 11/05/23 12/19/23 06:30 History polyethylene glycol 3350 17 238 g PO ONCE Colonoscopy prep 11/12/23 12/19/23 Rx gram/dose oral powder (Miralax) #238 grams Allergy/AdvReac Type Severity Reaction Status Date / Time risperidone (From Risperdal) Allergy ANXIETY Verified 12/19/23 09:23 Surgical History (Updated 12/16/23 @ 15:42 by Debora Wong) Hx of cystoscopy History of testicular surgery History of ankle surgery Social History (Updated 11/05/23 @ 09:22 by Fanta Quiroga) household members: other details: Lives with others in residential home number of children: 0 Smoking Status: Never smoker alcohol intake: never substance use type: does not use ROS Review of Systems ROS Unobtainable: other Constitutional Constitutional: Denies fatigue, fever(s), poor appetite, weight gain or weight loss ENT HEENT: Denies mouth lesions Cardiovascular Cardiovascular: Denies abdominal bloating, abdominal edema or abdominal pain Respiratory/Chest Respiratory/Chest: Denies change in mental status, change in phlegm color, chest congestion or chest tightness Gastrointestinal Gastrointestinal: Denies belching, bloating, change in bowel habits, change in stool character, chewing difficulty, coffee ground emesis, constipation, cramping, diarrhea, dyspepsia, dysphagia, early satiety, excessive flatus, fecal incontinence, heartburn, hematemesis, hematochezia, hemorrhoids, loose stools, melena, nausea, odynophagia, rectal bleeding, tenesmus, vomiting or weight changes Genitourinary Genitourinary: Denies abdominal discomfort, burning urination or itching Musculoskeletal Musculoskeletal: Reports as per HPI; Denies muscle weakness or myalgias Integumentary Integumentary: Denies jaundice Neurologic Neurologic: Denies lack of coordination or weakness Psychiatric Psychiatric: Denies confusion, depression, memory loss, mood swings, paranoia or suicidal ideation Endocrine Endocrinology: Denies systems reviewed and no addt'l complaints, except as documented Hematologic/Lymphatic Hematologic/Lymphatic: Denies anemia, easy bleeding, easy bruising or lymphadenopathy Allergic/Immunologic Allergic/Immunologic: Denies systems reviewed and no addt'l complaints, except as documented Vital Signs Vital Signs Vital Signs: 12/19/23 09:20 12/19/23 09:26 12/19/23 09:43 Temperature 97.2 F L 97.2 F L Temperature Source Temporal Pulse Rate 82 82 Respiratory Rate 16 16 Respiratory Pattern Normal Blood Pressure 106/76 106/76 Blood Pressure Mean 86 Blood Pressure Source Monitor Blood Pressure Position Semi-Fowlers Blood Pressure Location Left Arm Pulse Ox 97 97 Oxygen Delivery Method Room Air Weight Weight: 175 lb 3.2 oz Body Mass Index (BMI) 28.3 Physical Exam Const alert General Appearance: cooperative Orientation / Consciousness: oriented to person HEENT hearing grossly normal bilaterally Head and Scalp: normal to inspection Face and Sinus: face symmetric Nose: external nose normal Mouth: oral and palatal mucosa normal Eyes conjunctivae normal General Eye: normal appearance of both eyes Neck full ROM General: normal visual inspection Lymph Lymphatic: no lymphadenopathy noted Chest inspection of chest normal and palpation of chest normal Chest: symmetrical chest wall rise Resp normal respiratory effort Effort and Inspection: able to speak in complete sentences Cardio regular rate GI non-distended Percussion: normal to percussion Rectal Exam: deferred Neuro Speech: speech normal Gait (Neuro): normal gait Assessment & Plan Assessment/Plan (1) Encounter for screening for malignant neoplasm of colon: PLAN: He was explained alternatives, risk, benefits including not withstanding bleeding, infection, sepsis, perforation, need for emergent surgery . He will have an ASA of 3.
--- NOTE | 2023-12-19 10:33 | OP.COLON_ITS ---
Patient Name: Shay Burciaga Procedure Date: 12/19/2023 10:03 AM Date of : 1980 Age: 43 Procedure: Colonoscopy Indications: Screening for colorectal malignant neoplasm Providers: Michael Laguerre DO Medicines: Monitored Anesthesia Care Patient Profile: This is a 43 year old male. Refer to note in patient chart for documentation of history and physical. Last Colonoscopy: none. The patient's first colonoscopy is today. Complications: No immediate complications. Procedure: Pre-Anesthesia Assessment: - Prior to the procedure, a History and Physical was performed, and patient medications and allergies were reviewed. The patient is competent. The risks and benefits of the procedure and the sedation options and risks were discussed with the patient. All questions were answered and informed consent was obtained. Patient identification and proposed procedure were verified by the physician in the pre-procedure area. Mental Status Examination: alert and oriented. Airway Examination: normal oropharyngeal airway and neck mobility. Respiratory Examination: clear to auscultation. CV Examination: normal. Prophylactic Antibiotics: The patient does not require prophylactic antibiotics. Prior Anticoagulants: The patient has taken no anticoagulant or antiplatelet agents. ASA Grade Assessment: III - A patient with severe systemic disease. After reviewing the risks and benefits, the patient was deemed in satisfactory condition to undergo the procedure. The anesthesia plan was to use monitored anesthesia care (MAC). Immediately prior to administration of medications, the patient was re-assessed for adequacy to receive sedatives. The heart rate, respiratory rate, oxygen saturations, blood pressure, adequacy of pulmonary ventilation, and response to care were monitored throughout the procedure. The physical status of the patient was re-assessed after the procedure. After I obtained informed consent, the scope was passed under direct vision. Throughout the procedure, the patient's blood pressure, pulse, and oxygen saturations were monitored continuously. The pediatric colonoscope was introduced through the anus and advanced to the terminal ileum. The colonoscopy was performed without difficulty. The patient tolerated the procedure well. The quality of the bowel preparation was adequate. The terminal ileum, ileocecal valve, appendiceal orifice, and rectum were photographed. Scope In: 10:13:35 AM Scope Withdrawal Time 0 hours 7 minutes 36 seconds Scope Out: 10:25:21 AM Total Procedure Duration Time 0 hours 11 minutes 46 seconds Findings: The perianal and digital rectal examinations were normal. The colon (entire examined portion) appeared normal. Localized mild inflammation characterized by erythema and aphthous ulcerations was found in the terminal ileum. Biopsies were taken with a cold forceps for histology. Verification of patient identification for the specimen was done. Estimated blood loss was minimal. Impression: - The entire examined colon is normal. - Mild inflammation was found in the ileum secondary to ileitis. Biopsied. Recommendation: - Discharge patient to home. - Resume previous diet. - Continue present medications. - Repeat colonoscopy in 5 years for surveillance based on pathology results. Procedure Code(s): --- Professional --- 35037, Colonoscopy, flexible; with biopsy, single or multiple CPT copyright 2021 [employer]. All rights reserved. The codes documented in this report are preliminary and upon offal roller review may be revised to meet current compliance requirements. Michael Laguerre DO 12/19/2023 10:32:20 AM This report has been signed electronically. Number of Addenda: 0 Note Initiated On: 12/19/2023 10:03 AM
--- NOTE | 2023-12-19 10:33 | OP.CCLET_ITS ---
12/19/2023 Ramiro Sheets Re : Colonoscopy procedure for Shay Burciaga Dear Sudeep This procedure was performed on December. My impressions and recommendations are as follows: Impressions : - The entire examined colon is normal. - Mild inflammation was found in the ileum secondary to ileitis. Biopsied. Recommendations : - Discharge patient to home. - Resume previous diet. - Continue present medications. - Repeat colonoscopy in 5 years for surveillance based on pathology results. My findings are described in the full procedure note, which is enclosed. If I can be of further assistance, please feel free to contact me at . Sincerely, Michael Laguerre, 12/19/2023 10:32:20 AM This report has been signed electronically.
--- NOTE | 2023-12-19 10:36 | PCM.POST.ANE ---
Anesthesia: Postop Eval I Current Vital Signs Temperature: 97.3 F Pulse Rate: 73 Blood Pressure: 84/39 Respiratory Rate: 16 Pulse Ox: 96 Oxygen Delivery Method: Room Air Assessment Airway patent: Yes Spontaneous unlabored respirations: Yes Mental status: Asleep nausea: No Vomiting: No Anesthesia Complication: No Fluid Hydration Crystalloid volume administer (ml): 600 Total IV fluid infused: 600 Progress Note Anesthesia document: Postop Eval 1 completed: Yes
--- NOTE | 2023-12-19 10:51 | PCM.POSTANE2 ---
Anesthesia Postop Eval I Sum Postop Eval Completion status Anesthesia document: Postop Eval 1 completed: Yes Anesthesia Postop Eval I Summary Anesthesia Postop Eval I Summary: Anesthesia Postop Eval I: Assessment Summary Airway patent Yes 12/19/23 10:37 [email or web address] Spontaneous unlabored Yes 12/19/23 10:37 [email or web address] respirations Mental status Asleep 12/19/23 10:37 [email or web address] nausea No 12/19/23 10:37 [email or web address] Vomiting No 12/19/23 10:37 [email or web address] Anesthesia Postop Eval I: Fluid Summary Crystalloid volume administer 600 12/19/23 10:37 [email or web address] (ml) Colloids volume administered ( ml) Blood Product volume administered (ml) Total IV fluid infused 600 12/19/23 10:37 [email or web address] Anesthesia Postop Eval I: Summary Notes Anesthesia Complication No 12/19/23 10:37 [email or web address] Anesthesia Complication Comment: Post-operative progress note Anesthesia: Postop Eval II Evaluation Mental status: Awake Pain Level: 0 nausea: No Vomiting: No
== END 2023-12-19 11:13 | disposition home or self-care (01) ==
LOC: EN 08:49 → AC 08:50
PROVIDERS: PCP Family Medicine; Referring Provider Family Medicine; Visit Provider Internal Medicine Gastroenterology
PROC: 0DJD8ZZ Inspection of Lower Intestinal Tract, Via Natural or Artificial Opening Endoscopic (ICD-10-PCS; CPT 45378; principal; 2023-12-19 09:55)
DX: Z12.11 Encounter for screening for malignant neoplasm of colon (principal); K50.00 Crohn's disease of small intestine without complications; I10 Essential (primary) hypertension; E78.5 Hyperlipidemia, unspecified; F79 Unspecified intellectual disabilities; Z79.899 Other long term (current) drug therapy
CPT/HCPCS: 45380; 88305; 88341; 88342; J7120; J2405

== ENCOUNTER → 2024-02-14 | Outpatient (CLI) | payer MEDICAID, SELFPAY ==
[2024-02-14 12:11] LABS: Absolute Lymphocyte Count 1.76 X10^3/uL (0.83-4.51); Basophil# 0.06 X10^3/uL; Basophil% 0.5 % (0-1); Eosinophil# 0.54 X10^3/uL; Eosinophils% 4.6 % (0-5); Hematocrit 42.4 % (40-54); Lymphocyte # 1.76 X10^3/ul (0.83-4.51); Lymphocyte % 14.8 % (19-41); Mean Corpuscular Hgb 29.1 pg (27.0-32.0); Mean Corpuscular Volume 88.1 fL (80-94); Mean Platelet Vol. 9.2 fl (6.2-12.0); Monocyte% 3.4 % (0-10); NRBC Flagged by Analyzer 0 % (0-5); Neutrophil # 9.03 X10^3/uL (2.7-7.7); Neutrophil % 76.1 % (47-70); Platelet Count 344 K/mm3 (150-450); RBC Distribution Width CV 13.4 % (11.6-14.6); RBC Distribution Width SD 43.2 fl (35.1-43.9); Red Blood Count 4.81 M/mm3 (4.6-6.2); White Blood Count 11.9 K/mm3 (4.4-11.0)
[2024-02-14 13:03] LABS: ALB/GLOB Ratio 1.4 RATIO (0.9-2.4); AST(SGOT) 53 U/L (15-37); Alanine Aminotransfer ALT/SGPT 121 U/L (16-61); Albumin, Serum 3.9 g/dL (3.2-5.0); Alkaline Phosphatase 71 U/L (45-117); Anion Gap 8 (5-15); BUN 18 mg/dL (7-18); BUN/Creat Ratio 13.8 RATIO (10-20); Chloride 103 mmol/L (98-107); EST Glomerular Filtration Rate 63 mL/min (>60); Est Glom Filt Rate - Afr Amer 77 mL/min (>60); Globulin 2.7 g/dL (2.2-4.2); Glucose 164 mg/dL (74-106); Potassium 3.9 mmol/L (3.5-5.1); Protein, Total 6.6 g/dL (6.4-8.2); Sodium Level 136 mmol/L (136-145)
== END | disposition home or self-care (01) ==
LOC: LABSPEC 11:13
PROVIDERS: PCP Family Medicine; Visit Provider Internal Medicine
DX: F06.30 Mood disorder due to known physiological condition, unspecified (principal)
CPT/HCPCS: 80053; 85025

== ENCOUNTER → 2024-06-26 | Outpatient (CLI) | payer MEDICAID, SELFPAY ==
[2024-06-26 08:11] LABS: Hematocrit 42.3 % (40-54); Mean Corp Hgb Conc 33.1 g/dL (32-36); Mean Corpuscular Hgb 28.6 pg (27.0-32.0); Mean Corpuscular Volume 86.5 fL (80-94); Mean Platelet Vol. 9.3 fl (6.2-12.0); Platelet Count 324 K/mm3 (150-450); RBC Distribution Width CV 13.3 % (11.6-14.6); RBC Distribution Width SD 42.1 fl (35.1-43.9); Red Blood Count 4.89 M/mm3 (4.6-6.2); White Blood Count 9.2 K/mm3 (4.4-11.0)
[2024-06-26 08:32] LABS: ALB/GLOB Ratio 1.2 RATIO (0.9-2.4); AST(SGOT) 41 U/L (15-37); Alanine Aminotransfer ALT/SGPT 99 U/L (16-61); Albumin, Serum 3.7 g/dL (3.2-5.0); Alkaline Phosphatase 63 U/L (45-117); Anion Gap 8 (5-15); BUN 17 mg/dL (7-18); BUN/Creat Ratio 15.7 RATIO (10-20); Calcium,Total 9.4 mg/dL (8.5-10.1); Chloride 107 mmol/L (98-107); Creatinine, Serum 1.08 mg/dL (0.70-1.30); EST Glomerular Filtration Rate 78 mL/min (>60); Est Glom Filt Rate - Afr Amer 95 mL/min (>60); Globulin 3.2 g/dL (2.2-4.2); Glucose 107 mg/dL (74-106); Potassium 3.8 mmol/L (3.5-5.1); Protein, Total 6.9 g/dL (6.4-8.2); Sodium Level 138 mmol/L (136-145)
[2024-07-02 09:08] LABS: Trileptal-Oxcarbazepine 31 ug/mL (10-35)
== END | disposition home or self-care (01) ==
LOC: LABSPEC 07:48
PROVIDERS: PCP Family Medicine; Referring Provider Internal Medicine; Visit Provider Internal Medicine
DX: F06.30 Mood disorder due to known physiological condition, unspecified (principal)
CPT/HCPCS: 80053; 82542; 85027

== ENCOUNTER 2024-10-08 16:52 | Observation (INO) | payer MEDICAID, SELFPAY ==
[2024-10-08 16:53] VITALS: BP 141/94; PULSE 101; RESP 16; TEMP 36.4; O2SAT 98; BMI 30.5
--- NOTE | 2024-10-08 17:09 | CT_ITS ---
PROCEDURE: ABDOMEN/PELVIS W IV CONT ONLY 10/08/2024 REASON FOR EXAM: ABDOMINAL PAIN. HISTORY OF KIDNEY STONES. TECHNIQUE: Abdomen and pelvis CT with intravenous contrast. Coronal and Sagittal reconstruction series were provided. PATIENT PREPARATION: Per protocol ORAL CONTRAST TYPE: None. CONTRAST: 100 mL of Isovue 370 One or more dose reduction techniques were used (e.g., Automated exposure control, adjustment of the mA and/or kV according to patient size, use of iterative reconstruction technique. RADIATION DOSE SUMMARY: DLP: 1100 mGycm COMPARISON: 03/02/2021 FINDINGS: Limited sections of the lung bases demonstrate no focal pulmonary mass. Coronary atherosclerosis. Heart is borderline enlarged. The liver, spleen, pancreas, and both adrenal glands demonstrate no acute findings. Hepatic steatosis. The gallbladder is unremarkable. Tiny hiatal hernia; otherwise stomach is unremarkable. The aorta and IVC demonstrate no acute findings. There is no free air, free fluid or intestinal obstruction. The small bowel loops are not dilated. The appendix is normal. No bowel obstruction. The pelvic structures are intact. There is no solid pelvic mass. 9 mm obstructive stone at the distal left ureter with associated upstream moderate hydroureteronephrosis. Scattered additional nonobstructive stones are noted within the bilateral kidneys. Multiple cystic structures within bilateral kidneys measuring up to 2.9 cm within the left and 1.6 cm within the right. Multiple urinary bladder stones are noted. Mild thickening of the urinary bladder wall which may reflect cystitis versus partial nondistention; consider correlation with urinalysis. Enlarged prostate with abutment onto the urinary bladder wall. Visualized osseous structures demonstrate no acute abnormality. Bilateral small fat containing inguinal hernias, right larger than left. CT/Abdomen/Pelvis W IV Cont ONLY IMPRESSION: 9 mm obstructive stone at the distal left ureter with associated upstream moder ate hydroureteronephrosis. Multiple urinary bladder stones are noted. Mild thickening of the urinary bladd er wall which may reflect cystitis versus partial nondistention; consider correlation with urinalysis. Enlarged prostate with ab utment onto the urinary bladder wall. Reading Location: [facility]
--- NOTE | 2024-10-08 17:10 | ED.VIS.GI ---
HPI HPI - GI History of Present Illness Chief Complaint: Abd Pain Informant: patient and other (Staff member of patient's facility.) Abdominal Pain/Flank Pain Onset: Days Context: Gradual Onset Timing: Continuous Quality: Dull Location: See Diagram (Back pain and periumbilical.) Current Severity: Mild Maximum Severity: Mild Worsened by: Nothing Relieved by: Nothing Nausea/Vomiting/Emesis GI Symptom: Negative for Nausea or Vomiting Diarrhea/Melena/Hematochezia GI Symptom: Negative for Diarrhea, Melena or Hematochezia Associated Symptoms Associated Symptoms: Negative for Dysuria, Frequency or Hematuria Narrative Narrative: 43-year-old male from [facility]. History of hypertension kidney stones. Said the back pain for the last 5 days. Went to urgent care today sent in the Emergency Department for further evaluation. Recently was on antibiotic for possible UTI because he had blood in his urine but the culture ended up being negative. Staff this with the patient states that he has had no vomiting diarrhea or fever. No dysuria. Prior similar symptoms: No Recent Illness/Hospitalization: No PFSH PFSH Medical History Lives in [facility] Arthritis Back pain Non-smoker Shortness of breath on exertion Intellectual disability Recurrent major depression in full remission Hyperlipidemia Essential hypertension Urinary tract infection with hematuria Home Medications ?Medication ?Instructions ?Recorded ?Last Taken ?Type fenofibrate nanocrystallized 145 145 mg PO DAILY 07/08/18 12/18/23 History mg tablet folic acid 400 mcg tablet 0.4 mg PO DAILY@0800 07/08/18 12/18/23 History garlic 200 mg tablet 350 mg PO DAILY 07/08/18 12/18/23 History loratadine 10 mg capsule (Claritin 10 mg PO DAILY 07/08/18 12/18/23 History Liqui-Gel) omega-3 fatty acids-fish oil 340 3 ea PO DAILY 07/08/18 12/15/23 History mg-1,000 mg capsule (Fish Oil) ammonium lactate 12 % topical cream 1 applic topical DAILY 05/29/23 12/18/23 History atorvastatin 40 mg tablet 40 mg PO DAILY 05/29/23 12/18/23 History clonidine HCl 0.2 mg tablet 0.2 mg PO BID 05/29/23 12/19/23 06:30 History doxazosin 2 mg tablet 2 mg PO QHS 05/29/23 12/18/23 History fluticasone propionate 50 2 spray intranasal DAILY 05/29/23 12/18/23 History mcg/actuation nasal spray,suspension (Allergy Relief (fluticasone)) losartan 100 mg tablet 100 mg PO DAILY 05/29/23 12/19/23 06:30 History multivitamin-ferrous 1 tab PO DAILY 05/29/23 12/18/23 History fumarate-folic acid 18 mg-400 mcg tablet (Certavite-Antioxidant) nabumetone 500 mg tablet 500 mg PO BID PRN pain 05/29/23 Unknown History quetiapine 150 mg tablet,extended 150 mg PO 1600 05/29/23 12/18/23 History release 24 hr neomycin-bacitracn Zn-polymyx 3.5 1 applic topical TID PRN dry skin 11/05/23 Unknown History mg-400 unit-5,000 unit/gram top oint (Neosporin ([id number])) oxcarbazepine 600 mg tablet 600 mg PO BID 11/05/23 12/19/23 06:30 History polyethylene glycol 3350 17 238 g PO ONCE Colonoscopy prep 11/12/23 12/19/23 Rx gram/dose oral powder (Miralax) #238 grams Allergy/AdvReac Type Severity Reaction Status Date / Time risperidone (From Risperdal) Allergy ANXIETY Verified 10/08/24 16:53 Surgical History Hx of cystoscopy History of testicular surgery History of ankle surgery Social History household members: other details: Lives with others in residential home number of children: 0 Smoking Status: Never smoker alcohol intake: never substance use type: does not use ROS ROS ED Constitutional Constitutional ED: Denies chills or fever(s) ENT ENT ED: Denies ear pain Cardiovascular Cardiovascular: Denies chest pain Respiratory/Chest Respiratory/Chest: Denies cough Gastrointestinal Gastrointestinal: Reports abdominal pain; Denies constipation, diarrhea, melena, nausea or vomiting Genitourinary Genitourinary ED: Denies dysuria or hematuria Musculoskeletal Musculoskeletal: Denies arthralgias Integumentary Denies abscess Psychiatric Psychiatric: Denies anxiety Endocrine Endocrinology: Denies polydipsia Hematologic/Lymphatic Hematologic/Lymphatic: Denies easy bleeding Allergic/Immunologic Allergic/Immunologic ED: Denies mouth swelling, tongue swelling or urticaria EXAM Physical Exam Narrative Exam Narrative: Well-appearing middle-aged male. Vital signs stable afebrile. Does not look septic toxic. Staff member with him. No acute distress. H EENT exam pupils round react light. Moist mucous membranes. No trauma. Neck nontender. Lungs clear to auscultation bilaterally. Heart regular rhythm no murmur. Chest wall ribs nontender. Abdomen soft, nondistended normal bowel sounds without peritoneal signs. Mild periumbilical tenderness. No rebound guarding rigidity. No hernia or mass. No obstruction. Back nontender. Moving all 4 extremities. Nontender no edema. Neurologically patient is awake alert. Answer questions following commands. Limited informant. Const Vital Signs: 10/08/24 16:53 10/08/24 18:52 Temperature 97.6 F L Temperature Source Temporal Pulse Rate 101 H 78 Respiratory Rate 16 20 H Blood Pressure 141/94 H 154/97 H Blood Pressure Mean 109 116 Pulse Ox 98 96 Oxygen Delivery Method Room Air Room Air Positive well nourished and well developed; Negative for cachectic, contractures or unkempt General Appearance ED: well developed, NAD and pallor; Negative for unkempt, cachectic or contractures Nutritional Appearance: Negative for cachectic HEENT Reports moist mucous membranes normocephalic and atraumatic Eyes PERRL and EOMs intact bilaterally Neck no lymphadenopathy, supple and no JVD Resp normal respiratory effort and clear to auscultation bilaterally Cardio regular rate, regular rhythm, S1 normal heart sound, S2 normal heart sound and no murmurs GI non-distended and no masses; Negative for non-tender GI Narrative: Very mild periumbilical tenderness. Auscultation: normoactive bowel sounds Palpation: soft and tender; Negative for guarding, rigid, hepatomegaly, splenomegaly, hernia, mass, pulsatile mass or rebound tenderness present Back/Spine no CVA tenderness General Back: Negative for CVA tenderness Cervical Spine: Negative for cervical spine tenderness Thoracic Spine / Upper Back: Negative for thoracic spinal tenderness Lumbar Spine / Lower Back: Negative for lumbar spinal tenderness Extremity General Extremety ED: Negative for edema or tenderness General Extremity: Negative for edema Neuro CN's II-XII intact bilaterally and moves all extremities Sensorium / Orientation: alert, oriented to person and oriented to place Motor Exam: strength 5/5 throughout Psych mental status grossly normal and thought process normal Appearance: Negative for unkempt Skin no wounds General Skin Exam: pallor; Negative for jaundice Lesions: no lesions Rashes: no rashes Trauma: Negative for abrasion Nails: Negative for discolored MDM MDM MDM Narrative Medical decision making narrative: 43-year-old male atypical back and abdominal pain. Really not classic for kidney stone. Differential would include gastritis. Possible pancreatitis or gallbladder disease but I do not think it is very likely I do not think is appendicitis and clinically does not come off as a bowel obstruction. CAT scan labs to be obtained. Given Toradol for pain. Patient require additional pain medications he was initially given for morphine and 4 Zofran. Then given additional 6 mg of morphine. CAT scans consistent with a large left ureteral 9 mm stone with obstruction. Discussed patient's case with urology on-call and the patient will be admitted for intractable pain and possible urologic procedure. At the hospitalist on page. History & Record Review Discussion w/independent historian: Other (Staff that is with him.) Additional record(s) reviewed:: Prior inpatient record, Prior outpatient record, Prior ED visit and Prior labs Lab Data Attestation: I reviewed the patient's lab results. Lab results narrative: CBC shows no elevated white count 13.8. H&H 13 and 40. Platelets 327. Chemistry shows sodium 135. Gap 15. BUN and creatinine 18 and 1.32. Liver enzymes shows slightly elevated AST and ALT. UA shows occult blood in the urine. No nitrates. Awaiting micro. CAT scan shows a left distal ureter, ureteral calculi about 9 mm with hydroureter and hydronephrosis. Labs: Laboratory Results - last 24 hr 10/08/24 10/08/24 17:17 18:31 WBC 13.8 H RBC 4.73 Hgb 13.7 Hct 40.6 MCV 85.8 MCH 29.0 MCHC 33.7 RDW Std Deviation 41.9 RDW Coeff of Jaime 13.4 Plt Count 327 MPV 9.0 Immature Gran % (Auto) 0.700 Neut % (Auto) 68.7 Lymph % (Auto) 19.2 [place] % (Auto) 8.0 Eos % (Auto) 2.9 Baso % (Auto) 0.5 Absolute Neuts (auto) 9.5 H Absolute Lymphs (auto) 2.64 Nucleated RBC % 0 Sodium 135 Potassium 4.0 Chloride 101 Carbon Dioxide 19.3 L Anion Gap 15 BUN 18 Creatinine 1.32 H Estim Creat Clear Calc 72.57 Est GFR (MDRD) Non-Af 68 BUN/Creatinine Ratio 13.4 Glucose 100 H Calcium 9.9 Total Bilirubin 0.33 AST 51 H ALT 66 H Alkaline Phosphatase 75 Total Protein 7.1 Albumin 4.4 Globulin 2.7 Albumin/Globulin Ratio 1.6 Urine Color Yellow Urine Clarity Cloudy Urine pH 7.0 Ur Specific [place] 1.010 Urine Protein 30 H Urine Glucose (UA) Normal Urine Ketones Negative Urine Occult Blood 250 H Urine Nitrite Negative Urine Bilirubin Negative Urine Urobilinogen Normal Ur Leukocyte Esterase 25 H Radiography Diagnostic Testing: Clinical Impression(s) from Imaging Studies Abdomen/Pelvis CT 10/08/24 17:09 IMPRESSION: 9 mm obstructive stone at the distal left ureter with associated upstream moderate hydroureteronephrosis. Multiple urinary bladder stones are noted. Mild thickening of the urinary bladder wall which may reflect cystitis versus partial nondistention; consider correlation with urinalysis. Enlarged prostate with abutment onto the urinary bladder wall. Reading Location: [facility] Discharge Plan Triage Chief Complaint: Abd Pain ED Provider: Brad Goins Dx/Rx/DC Orders Prescriptions: No Action quetiapine 150 mg tablet extended release 24 hr 150 mg PO 1600 Patient Comments: TAKE 1 TABLET BY MOUTHEONCE DAILY AT 4PM ammonium lactate 12 % cream 1 applic topical DAILY atorvastatin 40 mg tablet 40 mg PO DAILY Certavite-Antioxidant 18-400 mg-mcg tablet 1 tab PO DAILY clonidine HCl 0.2 mg tablet 0.2 mg PO BID doxazosin 2 mg tablet 2 mg PO QHS fluticasone propionate [Allergy Relief (fluticasone)] 50 mcg/actuation spray,suspension 2 spray intranasal DAILY Rx Instructions: administer into each nostril losartan 100 mg tablet 100 mg PO DAILY nabumetone 500 mg tablet 500 mg PO BID PRN (Reason: pain) Patient Comments: take 1 tablet by mouth twice a day oxcarbazepine 600 mg tablet 600 mg PO BID Neosporin (fvh-vrw-gzgin) 3.5mg-400 unit- 5,000 unit/gram ointment 1 applic topical TID PRN (Reason: dry skin) Rx Instructions: To inside of nose for dry patches folic acid 0.4 MG tablet 0.4 mg PO DAILY@0800 fenofibrate nanocrystallized 145 MG tablet 145 mg PO DAILY Fish Oil 1 EACH capsule 3 ea PO DAILY Claritin Liqui-Gel 10 MG capsule 10 mg PO DAILY garlic 200 MG tablet 350 mg PO DAILY polyethylene glycol 3350 [Miralax] 17 gram/dose powder 238 g PO ONCE Qty: 238 0RF Rx Instructions: Mix 8.3oz bottle with 2-32oz bottles of yellow or orange Gatorade. Use as directed by Physician. Primary Care Provider: Ramiro Sheets Referrals: Ramiro Sheets MD [Primary Care Provider] - Print Language: Tamazight
[2024-10-08] MEDS: Ketorolac 30 MG/ML Syringe IV (17:14)
[2024-10-08 17:41] LABS: Absolute Lymphocyte Count 2.64 X10^3/uL (0.83-4.51); Absolute Neutrophil Count 9.5 X10^3/uL (2.0-7.7); Basophil# 0.07 X10^3/uL; Basophil% 0.5 % (0-1); Eosinophils% 2.9 % (0-5); Hematocrit 40.6 % (40-54); Hemoglobin 13.7 g/dL (13.0-16.5); Lymphocyte # 2.64 X10^3/ul (0.83-4.51); Lymphocyte % 19.2 % (19-41); Mean Corp Hgb Conc 33.7 g/dL (32-36); Mean Corpuscular Volume 85.8 fL (80-94); NRBC Flagged by Analyzer 0 % (0-5); Neutrophil # 9.46 X10^3/uL (2.7-7.7); Neutrophil % 68.7 % (47-70); Platelet Count 327 K/mm3 (150-450); RBC Distribution Width CV 13.4 % (11.6-14.6); RBC Distribution Width SD 41.9 fl (35.1-43.9); Red Blood Count 4.73 M/mm3 (4.6-6.2); White Blood Count 13.8 K/mm3 (4.4-11.0)
[2024-10-08] MEDS: Ondansetron 4 MG/2 ML Vial IV (17:45)
[2024-10-08] MEDS: morphine 8 MG/ML Syringe 4 MG IV (17:45)
[2024-10-08 18:03] LABS: ALB/GLOB Ratio 1.6 RATIO (0.9-2.4); AST(SGOT) 51 U/L (<=37); Alanine Aminotransfer ALT/SGPT 66 U/L (<=46); Albumin, Serum 4.4 g/dL (3.5-5.0); Alkaline Phosphatase 75 U/L (40-129); Anion Gap 15 (5-15); BUN 18 mg/dL (4-19); BUN/Creat Ratio 13.4 RATIO (10-20); Calcium,Total 9.9 mg/dL (7.6-11.0); Carbon Dioxide 19.3 mmol/L (21.0-32.0); Chloride 101 mmol/L (98-108); Creatinine, Serum 1.32 mg/dL (0.70-1.20); EST Glomerular Filtration Rate 68 (>60); Estimated Creatinine Clearance 72.57 ml/min (50-250); Globulin 2.7 g/dL (2.2-4.2); Glucose 100 mg/dL (70-99); Protein, Total 7.1 g/dL (5.9-8.4); Sodium Level 135 mmol/L (133-145); Total Bilirubin 0.33 mg/dL (0.00-1.30)
[2024-10-08 18:34] LABS: Mucous, Urine 0 SEEN /hpf (<or=2+); Squamous Epithelial Cells - UA 0 SEEN /hpf (0-5); White Blood Cells 0 SEEN /hpf (0-5)
[2024-10-08 18:42] LABS: Color, Urine Yellow (Yellow); Glucose, Dipstick Normal (Normal); Ketone-Dipstick Negative (Negative); Leukocyte Esterase-Dipstick 25 /ul (Negative); Nitrite-Dipstick Negative (Negative); Occult Blood-Urine 250 /ul (Negative); Protein-Dipstick 30 mg/dl (Negative); Urine Bilirubin Dipstick Negative (Negative); Urine Clarity Cloudy (Clear); Urine Urobilinogen Normal (Normal)
[2024-10-08 18:52] VITALS: BP 154/97; PULSE 78; RESP 20; O2SAT 96
[2024-10-08] MEDS: morphine 8 MG/ML Syringe 6 MG IV (19:53)
[2024-10-08 19:56] VITALS: BP 149/90; PULSE 96; RESP 18; TEMP 36.7; O2SAT 97
--- NOTE | 2024-10-08 20:02 | PCM.HP.STD ---
HPI - General General Date of Admission: 10/08/24 Date of Service: 10/08/24 Chief Complaint: Abdominal pain, flank pain. HPI Narrative The patient is a 43 y/o M w/ intellectual debilities living in a senior care w/ PMHx: CKD stage II per GFR trending, HTN, HLD, Anxiety and Depression/Mood disorder, Obesity who presents to the [facility] ED on 10/08/24 with history of abdominal pain with no associated nausea or emesis but persistent described primarily in the back/flank and periumbilical region with history of previous kidney stones noting that the discomfort in the back/flank is been ongoing for at least 5 days sent to the urgent care initially referred to the ED given concern for possible UTI and antibiotic needs with no fevers or chills. Patient currently notes pain is improved after morphine but discussion with patient and senior care staff he rates his discomfort previously potentially 7-8 out of 10 in severity and more in the back/flank. Workup in the ED included T97.6, heart rate 101, BP 141/94, respiratory rate 16, percent room air with most recent repeat vital signs T98, heart rate 96, BP 149/90, respiratory rate 18, 97% on room air, CBC with WBC 13.8, hemoglobin 13.7, platelet 327 with left shift, CMP with come back side 19.3, BUN/creatinine 18/1.32, GFR 68, glucose 100, AST/LT 51/66, urinalysis with no obvious overt UTI but pending urine RBC/WBC/squamous epithelial cells/urine bacteria, CT abdomen and pelvis with a 9 mm obstructive stone at the distal left ureter with associated upstream moderate hydroureteronephrosis with multiple urinary bladder stones, mild thickening of the urinary bladder wall reflective of possible cystitis versus partial nondistention with an enlarged prostate with abutment into the urinary bladder wall. In the ED patient ministered Zofran 4 mg IV x 2, morphine 4 mg IV x 1, morphine 6 mg IV x 1, Toradol 30 mg IV x 1. ED discussed case with urology. [facility] Medical History Lives in senior care Arthritis Back pain Non-smoker Shortness of breath on exertion Intellectual disability Recurrent major depression in full remission Hyperlipidemia Essential hypertension Urinary tract infection with hematuria Home Medications ?Medication ?Instructions ?Recorded ?Last Taken ?Type fenofibrate nanocrystallized 145 145 mg PO DAILY 07/08/18 12/18/23 History mg tablet folic acid 400 mcg tablet 0.4 mg PO DAILY@0800 07/08/18 12/18/23 History garlic 200 mg tablet 350 mg PO DAILY 07/08/18 12/18/23 History loratadine 10 mg capsule (Claritin 10 mg PO DAILY 07/08/18 12/18/23 History Liqui-Gel) omega-3 fatty acids-fish oil 340 3 ea PO DAILY 07/08/18 12/15/23 History mg-1,000 mg capsule (Fish Oil) ammonium lactate 12 % topical cream 1 applic topical DAILY 05/29/23 12/18/23 History atorvastatin 40 mg tablet 40 mg PO DAILY 05/29/23 12/18/23 History clonidine HCl 0.2 mg tablet 0.2 mg PO BID 05/29/23 12/19/23 06:30 History doxazosin 2 mg tablet 2 mg PO QHS 05/29/23 12/18/23 History fluticasone propionate 50 2 spray intranasal DAILY 05/29/23 12/18/23 History mcg/actuation nasal spray,suspension (Allergy Relief (fluticasone)) losartan 100 mg tablet 100 mg PO DAILY 05/29/23 12/19/23 06:30 History multivitamin-ferrous 1 tab PO DAILY 05/29/23 12/18/23 History fumarate-folic acid 18 mg-400 mcg tablet (Certavite-Antioxidant) nabumetone 500 mg tablet 500 mg PO BID PRN pain 05/29/23 Unknown History quetiapine 150 mg tablet,extended 150 mg PO 1600 05/29/23 12/18/23 History release 24 hr neomycin-bacitracn Zn-polymyx 3.5 1 applic topical TID PRN dry skin 11/05/23 Unknown History mg-400 unit-5,000 unit/gram top oint (Neosporin ([id number]-dscqn)) oxcarbazepine 600 mg tablet 600 mg PO BID 11/05/23 12/19/23 06:30 History polyethylene glycol 3350 17 238 g PO ONCE Colonoscopy prep 11/12/23 12/19/23 Rx gram/dose oral powder (Miralax) #238 grams Allergy/AdvReac Type Severity Reaction Status Date / Time risperidone (From Risperdal) Allergy ANXIETY Verified 10/08/24 16:53 Family History (Updated 10/08/24 @ 20:[address] Yamileth Aguirre MD) Mother Hyperlipidemia Father Hyperlipidemia Surgical History Hx of cystoscopy History of testicular surgery History of ankle surgery Social History household members: other details: Lives with others in residential home number of children: 0 Smoking Status: Never smoker alcohol intake: never substance use type: does not use ROS ROS Narrative Admission Review of Systems: CONSTITUTIONAL: No weight loss, fever, chills, + weakness or fatigue. HEENT: Eyes: No visual loss, blurred vision, double vision or yellow sclerae. Ears, Nose, Throat: No hearing loss, sneezing, congestion, runny nose or sore throat. SKIN: No rash or itching, lesions, wounds. CARDIOVASCULAR: No chest pain, chest pressure or chest discomfort, palpitations, edema, orthopnea, syncopal events. RESPIRATORY: No shortness of breath, cough or sputum, wheezing, hemoptysis. GASTROINTESTINAL: + Decreased appetite. No markedly reported nausea, vomiting or diarrhea, abdominal pain, melena, BRBPR. GENITOURINARY: + Flank discomfort. No dysuria, frequency, urgency or retention. NEUROLOGICAL: No headache, dizziness, syncope, paralysis, ataxia, numbness or tingling in the extremities, focal weakness, change in bowel or bladder control, seizure. MUSCULOSKELETAL: + muscle, back pain, joint pain or stiffness. HEMATOLOGIC: No anemia, bleeding or bruising. LYMPHATICS: No enlarged nodes. No history of splenectomy. PSYCHIATRIC: + History of anxiety and depression/intellectual debility. ENDOCRINOLOGIC: No reports of sweating, cold or heat intolerance. No polyuria or polydipsia. ALLERGIES: + Allergic rhinitis. Vital Signs Vital Signs Vital Signs: 10/08/24 16:53 10/08/24 18:52 10/08/24 19:56 Temperature 97.6 F L 98.0 F Temperature Source Temporal Pulse Rate 101 H 78 96 Respiratory Rate 16 20 H 18 Blood Pressure 141/94 H 154/97 H 149/90 H Blood Pressure Mean 109 116 109 Pulse Ox 98 96 97 Oxygen Delivery Method Room Air Room Air Weight Weight: 189 lb 2.506 oz Body Mass Index (BMI) 30.5 Physical Exam Narrative Physical Examination: General: Awake, alert, oriented to self, place, recent vents, senior care staff present, remains cooperative, seated upright in ED bed, pain currently resolved following recent morphine he notes. Skin: Normal color, normal turgor, no icterus, no cyanosis except occasional stage ecchymoses, abrasion. HEENT: AT/NC, EOMI, PERRLA, moderately dry MM, no carotid bruits or JVD noted. Lungs: Mildly diminished, greater bases, appropriate effort, no rales, ronchi or wheezing. Heart: Mildly tachycardic with regular rhythm; no gallop, rub audible. Abdomen: Soft, NTTP currently and no flank discomfort but did have recent morphine, no obvious distention, distant BS, no appreciated HSM. Extremities: No cyanosis, clubbing, or edema. Neurological: Patient awake, alert, oriented as noted, cognitive function impaired baseline but currently is baseline intact per discussion with senior care staff, pupils equally reactive to light and accommodation, cranial nerves grossly normal, moving all 4 extremities, no focal deficits, strength moderately globally decreased secondary to acute presentation. Psychiatric: Affect appears fatigued, denies any current pain, no acute evidence of depressive or anxiety feelings but does have underlying psychiatric history. Results Lab / Micro Data 10/08/24 17:17 10/08/24 17:17 Labs: Laboratory Results - last 24 hr 10/08/24 17:17: WBC 13.8 H, RBC 4.73, Hgb 13.7, Hct 40.6, MCV 85.8, MCH 29.0, MCHC 33.7, RDW Std Deviation 41.9, RDW Coeff of Jaime 13.4, Plt Count 327, MPV 9.0, Immature Gran % (Auto) 0.700, Neut % (Auto) 68.7, Lymph % (Auto) 19.2, [place] % (Auto) 8.0, Eos % (Auto) 2.9, Baso % (Auto) 0.5, Absolute Neuts (auto) 9.5 H, Absolute Lymphs (auto) 2.64, Nucleated RBC % 0, Sodium 135, Potassium 4.0, Chloride 101, Carbon Dioxide 19.3 L, Anion Gap 15, BUN 18, Creatinine 1.32 H, Estim Creat Clear Calc 72.57, Est GFR (MDRD) Non-Af 68, BUN/Creatinine Ratio 13.4, Glucose 100 H, Calcium 9.9, Total Bilirubin 0.33, AST 51 H, ALT 66 H, Alkaline Phosphatase 75, Total Protein 7.1, Albumin 4.4, Globulin 2.7, Albumin/Globulin Ratio 1.6 10/08/24 18:31: Urine Color Yellow, Urine Clarity Cloudy, Urine pH 7.0, Ur Specific [place] 1.010, Urine Protein 30 H, Urine Glucose (UA) Normal, Urine Ketones Negative, Urine Occult Blood 250 H, Urine Nitrite Negative, Urine Bilirubin Negative, Urine Urobilinogen Normal, Ur Leukocyte Esterase 25 H Imaging Radiology Impression Abdomen/Pelvis CT 10/08/24 17:09 IMPRESSION: 9 mm obstructive stone at the distal left ureter with associated upstream moderate hydroureteronephrosis. Multiple urinary bladder stones are noted. Mild thickening of the urinary bladder wall which may reflect cystitis versus partial nondistention; consider correlation with urinalysis. Enlarged prostate with abutment onto the urinary bladder wall. Reading Location: [facility] Assessment & Plan Assessment/Plan (1) Kidney stone on left side: PLAN: Plan The patient is a 43 y/o M w/ intellectual debilities living in a senior care w/ PMHx: CKD stage II per GFR trending, HTN, HLD, Anxiety and Depression/Mood disorder, Obesity who presents to the [facility] ED on 10/08/24 with history of abdominal pain with no associated nausea or emesis but persistent described primarily in the back/flank and periumbilical region with history of previous kidney stones noting that the discomfort in the back/flank is been ongoing for at least 5 days sent to the urgent care initially referred to the ED given concern for possible UTI and antibiotic needs with no fevers or chills. #1. Acute Flank Pain secondary to Acute obstructive stone at the distal left ureter with associated upstream moderate hydronephrosis with also incidentally noted enlarged prostate abutting the urinary bladder wall: Will admit to [facility], maintain on hydration, currently urinalysis with no overt evidence of UTI but awaiting completion of UA with addition of Rocephin if appropriate if needed, will allow cardiac diet until midnight with n.p.o. following for urological intervention, urology consulted and aware of patient, will have PRN oral and IV pain regimen, PRN anti-emetics, monitor I&Os. #2. Chronic Kidney Disease Stage II per GFR trending: Admission BUN/Cr 18/1.32, GFR 68, baseline renal function 1.0-1.3, repeat BMP in AM. #3. Anxiety and depression/mood disorder complicated by underlying intellectual disability: Will continue patient home oxcarbazepine and Seroquel home regimen, encourage continued outpatient follow-up as previously arranged. #4. Hypertension: Continue home regimen including clonidine, doxazosin, losartan, PRN hydralazine. #5. Hyperlipidemia: Will continue patient home statin and fenofibrate regimen. #6. Obesity: Weight loss and lifestyle changes encouraged. #7. DVT prophylaxis: SCDs, hold chemoprophylaxis for planned urological intervention given size. #8. CODE STATUS: Full Code per discussion with the senior care staff. Charges/Coding Visit Charges Inpatient E&M: 54553 Init Hosp L3
--- NOTE | 2024-10-08 20:19 | CASEMGMT ---
Social Work SW met with patient and patients caregiver. Patient is from [place] [facility], his father is his legal guardian. Patient lives in the basement with approx 10 steps to get down to his room. prison staff state they are able to assist should patient require assistance with his ADLs. Updates should be called to Tena Ross LPN at [phone]. Fior Handley, SUPERVISOR [employer], CRA OFFICER
[2024-10-08 21:03] LABS: Bacteria 2+ /hpf (None Seen); Red Blood Cells-Urine > 100 SEEN /hpf (0-5)
[2024-10-08 21:35] VITALS: BP 135/88; PULSE 88; RESP 16; TEMP 36.7; O2SAT 96
[2024-10-08 21:36] VITALS: BMI 31.1
[2024-10-08] MEDS: guaiFENesin 10 ML UDC (200MG/10ML) 20 ML PO (22:02)
[2024-10-08] MEDS: Acetaminophen 325 MG Tablet 650 MG PO (22:02)
[2024-10-08] MEDS: 0.9% Normal Saline (1000mL) 1,000 ML 100 ML IV (22:03)
[2024-10-08] MEDS: Atorvastatin Calcium 40 MG Tablet PO (22:03)
[2024-10-08] MEDS: cloNIDine HCl 0.2 MG Tablet PO (22:03)
[2024-10-08] MEDS: Doxazosin 1 MG Tablet 2 MG PO (22:03)
[2024-10-08] MEDS: OXcarbazepine 600 MG Tablet PO (22:04)
[2024-10-08] MEDS: Famotidine 20 MG Tablet PO (22:04)
[2024-10-08] MEDS: 0.9% Saline Lock 10 ML Syringe IV (22:07)
--- OUTSIDE RECORDS SUMMARY | 2024-10-08 22:16 | XMS RPT_ITS | CCD ---
Author Organization [facility] Clini[facility] Care Team Providers Care Oncology Patient Navigator Name Role Phone Dr. Ramiro Rosa Primary Care Provider Dr. Ramiro Rosa Referring Provider [phone] NORRIS Calvillo Attending Provider NORRIS Isidro Attending Provider Ramiro Rosa MD Primary Care Provider Ramiro Rosa MD Primary Care Provider Ramiro Rosa Primary Care Provider Dr. Ramiro Rosa Primary Care Provider Dr. Ramiro Rosa Referring Provider NORRIS Isidro Attending Provider Dr. Ramiro Rosa Primary Care Provider Dr. Ramiro Rosa Referring Provider NORRIS Isidro Attending Provider Ramiro Rosa Primary Care Unavailable Ramiro Rosa Referring Unavailable Friend, Michael Consulting Unavailable Friend, Michael Attending Unavailable Moe, Ramiro Primary Care Unavailable Fanta Quiroga Attending Unavailable Moe, Ramiro Primary Care Unavailable Moe, Ramiro Attending Unavailable Moe, Ramiro Primary Care Unavailable Dajuan Metz Attending Unavailable Moe, Ramiro Primary Care Unavailable Dajuan Metz Attending Unavailable Dajuan Metz Referring Unavailable Moe, Ramiro Primary Care Unavailable Moe, Ramiro Referring Unavailable Friend, Michael Attending Unavailable Dr. Ramiro Rosa MD Primary Care Provider Dr. Dajuan Morrison MD Attending Provider Dr. Dajuan Dickson MD Referring Provider Ramiro Ware Primary Care Provider SEAN VERDUZCO Attending Unavailable SELF Referring Unavailable RAMIRO ROSA Primary Care Unavailabl e RAMIRO ROSA Primary Care Unavailable RAMIRO ROSA Attending Unavailable RAMIRO ROSA Referring Unavailable RAMIRO ROSA Attending Unavailable RAMIRO ROSA Primary Care Unavailable RAMIRO ROSA Primary Care Unavailable RAMIRO ROSA Attending Unavailable Allergies Allergy Classification Reported Allergen(s) Allergy Type Date of Onset Reaction(s) Facility risperiDONE (1 source) risperiDONE Drug Allergy 5 Anxiety [facility] (10 sources) risperiDONE; Translations: [RISPERIDONE] Drug Allergy 5 Mental Status Change [facility] (20 sources) risperiDONE Drug Allergy 5 [facility] (1 source) risperiDONE Drug Allergy 4 [facility] Repository Medications Current Medications Medication Drug Class(es) Dates Sig (Normalized) Sig (Original) atorvastatin 40 mg oral tablet (20 sources) HMG-CoA Reductase Inhibitor Start: 04-19-2022 End: 08-20-2024 take 1 tablet by mouth once daily atorvastatin (Lipitor) 40 MG tablet Indications: Hyperlipidemia LDL goal Take 1 tablet (40 mg) by mouth daily. 90 tablet 1 08/20/2024 Active Start: 07-08-2018 End: 05-29-2023 take 1 tablet by mouth at bedtime Atorvastatin 20 MG tablet Discontinued 20 mg PO AT BEDTIME July 08, 2018 12:00am May 29, 2023 10:02am Comment on above: Take 1 tablet by marcell once daily. bacitracin 0.4 unt/mg / neomycin 0.0035 mg/mg / polymyxin b 5 unt/mg topical ointment (20 sources) Aminoglycoside Antibacterial, Polymyxin-class Antibacterial Start: 11-05-2023 Neomycin-Bacitracnzn -Polymyxnb (Neosporin (Div-Jpc-Luijj)) 3.5mg-400 unit- 5,000 unit/gram ointment Active 1 NMA TOPICAL THREE TIMES A DAY as needed for dry skin November 04, 2023 11:00pm To inside of nose for dry patches Start: 02-19-2022 neomycin-bacit racin-polymyxin (Neosporin) ointment APPLY TOPICALLY TO INSIDE OF NOSE 3 TIMES DAILY NEEDED FOR DRY PATCHES 02/19/2022 Active Comment on above: APPLY TOPICALLY TO I NSIDE OF NOSE 3 TIMES DAILY NEEDED FOR DRY PATCHES cephalexin 500 mg oral capsule (3 sources) Cephalosporin Antibacterial Start: 5 End: take 1 capsule by mouth twice daily cephALEXin (KEFLEX) 500 mg capsule Take 1 capsule by mouth two times a day for 7 days. 14 capsule 09/27/2024 10/04/2024 Active Start: 02-18-2023 End: 02-18-2023 take 1 capsule by mouth four times daily cephALEXin (KEFLEX) 500 mg capsule Take 1 capsule by mouth four times daily for 5 days. 20 capsule 0 02/18/2023 02/18/2023 Discontinued Comment on above: Take 1 capsule by [facility] four times daily for 5 days. clonazePAM 0.5 mg oral tablet (9 sources) Benzodiazepine Start: 04-08-20 take 0.25 mg by mouth twice daily clonazePAM (KlonoPIN) 0.5 MG tablet Take 0.25 mg by mouth 2 times daily. 04/08/2024 Active cloNIDine hydrochloride 0.2 mg oral tablet (20 sources) Central alpha-2 Adrenergic Agonist Start: 02-20-20 take 1 tablet by mouth twice daily cloNIDine (Catapres) 0.2 MG tablet TAKE 1 TABLET BY MOUTH TWICE DAILY (7AM,8PM) 02/19/2022 Active Start: 06-13-2017 End: 05-29-2023 take 1 tablet by mouth twice daily cloNIDine HCl (CATAPRES) 0.1 mg tablet Take 1 tablet by mouth two times a day. 06/13/2017 Active Comment on above: Take 1 tablet by [facility] two times a day. docosahexaenoic acid 120 mg / eicosapentaenoic acid 180 mg oral capsule (20 sources) Start: 022 End: 025 take 3 capsules by mouth once daily omega-3 (Fish Oil) 1000 MG capsule Indications: Hyperlipidemia LDL goal TAKE 3 CAPSULES (3000MG) BY MOUTH ONCE EVERY DAY 93 capsule 1 10/02/2024 Active doxazosin 2 mg oral tablet (20 sources) alpha-Adrenergic Laisha Start: End: take 1 tablet by mouth once daily at bedtime doxazosin (Cardura) 2 MG tablet TAKE 1 TABLET BY MOUTH EVERY NIGHT AT BEDTIME (8PM) 31 tablet 11 07/14/2024 Active Comment on above: TAKE 1 TABLET BY MARCELL TH EVERY NIGHT AT BEDTIME (8PM) doxycycline monohydrate 100 mg oral tablet (1 source) Tetracycline-class Drug Start: End: take 1 tablet by mouth twice daily doxycycline monohydrate 100 mg tablet Take 1 tablet by mouth two times a day for 7 days. 14 tablet 0 02/18/2023 02/25/2023 Active Comment on above: Take 1 tablet by marcell th two times a day for 7 days. fenofibrate 145 mg oral tablet (20 sources) Peroxisome Proliferator Receptor alpha Agonist Start: End: take 1 tablet by mouth once daily fenofibrate (Tricor) 145 MG tablet Indications: Hyperlipidemia LDL goal Take 1 tablet (145 mg) by mouth daily. 93 tablet 1 10/02/2024 Active Comment on above: Take 1 tablet by marcell th once daily. fluticasone propionate 0.05 mg/actuat metered dose nasal spray (20 sources) Corticosteroid Start: End: take 2 spray(s) nasal route once daily fluticasone (Flonase) 50 MCG/ACT nasal spray Indications: Seasonal allergic rhinitis due to pollen Administer 2 sprays into each nostril daily. Shake gently. Before first use, prime pump. After use, clean tip and replace cap. 16 g 02/03/2024 Active Start: 05-29-2023 take 50 ug nasal rou te once daily Fluticasone Propionate (Allergy Relief (Fluticasone)) 50 mcg/actuation spray,suspension Active 2 NMA INTRANASAL DAILY May 29, 2023 12:00am administer into each nostril Start: 05-29-2023 take 1 spray(s) nasa l route once daily Fluticasone Propionate (Allergy Relief (Fluticasone)) 50 mcg/actuation spray,suspension Active 2 SPRAY INTRANASAL DAILY May 29, 2023 1:00am administer into each nostril Start: 03-29-2023 End: 02-03-2024 take 2 spray(s) nasal route once daily fluticasone (Flonase) 50 MCG/ACT nasal spray Indications: Seasonal allergic rhinitis due to pollen USE 2 SPRAYS IN EACH NOSTRIL ONCE EVERY DAY (8AM) SHAKE GENTLY. BEFORE FIRST USE, PRIME PUMP. AFTER USE, CLEAN TIP AND REPLACE CAP 16 g 11 03/29/2023 02/03/2024 Discontinued (Reorder) Start: 08-14-2022 End: 03-29-2023 take 2 spray(s) nasal route once daily fluticasone (Flonase) 50 MCG/ACT nasal spray Indications: Seasonal allergic rhinitis due to pollen Administer 2 sprays into each nostril daily. Shake gently. Before first use, prime pump. After use, clean tip and replace cap. 16 g 3 12/07/2022 03/29/2023 Discontinued Start: 02-19-2022 fluticasone (F LONASE) 50 mcg/actuation nasal spray 2 Sprays. 02/19/2022 Active Start: 02-19-2022 take 2 spray(s) nasa l route once daily at bedtime fluticasone (Flonase) 50 MCG/ACT nasal spray USE 2 SPRAYS IN EACH NOSTRIL EVERY NIGHT AT BEDTIME (8PM) 0 02/19/2022 Active Comment on above: 2 Sprays. folic acid 0.4 mg oral tablet (20 sources) Start: 02-19-2022 End: 10-02-2024 take 1 tablet by mouth once daily folic acid (Folvite) 400 MCG tablet Take 1 tablet (400 mcg) by mouth daily. 93 tablet 1 10/02/2024 Active Start: 07-08-2018 take 1 tablet by marcell th once daily Folic Acid 0.4 MG tablet Active 0.4 mg PO DAILY@0800 July 08, 2018 12:00am Comment on above: Take 1 tablet by marcell th once daily. garlic preparation 350 mg oral tablet (20 sources) Non-Standardized Food Allergenic Extract Start: 04-06-2024 take 1 tablet by mouth once daily Garlic 350 MG tablet TAKE 1 TABLET BY MOUTH ONCE EVERY DAY 31 tablet 11 04/06/2024 Active Start: 11-12-2023 End: 04-06-2024 take 1 tablet by mouth once daily Garlic 350 MG tablet TAKE 1 TABLET BY MOUTH ONCE EVERY DAY 31 tablet 4 11/12/2023 04/06/2024 Discontinued Start: 11-12-2023 take 1 tablet by marcell th once daily Garlic 350 MG tablet TAKE 1 TABLET BY MOUTH ONCE EVERY DAY 31 tablet 4 11/12/2023 Active Start: 06-04-2023 End: 11-12-2023 take 1 tablet by mouth once daily Garlic 350 MG tablet Take 1 tablet by mouth daily. 90 tablet 1 06/04/2023 11/12/2023 Discontinued Start: 06-04-2023 take 1 tablet by marcell th once daily Garlic 350 MG tablet Take 1 tablet by mouth daily. 90 tablet 1 06/04/2023 Active Start: 01-08-2023 take 1 tablet by marcell th once daily Garlic 350 MG tablet Take 1 tablet by mouth daily. 90 tablet 1 01/08/2023 Active Start: 08-27-2022 End: 01-08-2023 take 1 tablet by mouth once daily Garlic 350 MG tablet Take 1 tablet by mouth daily. 90 tablet 1 08/27/2022 01/08/2023 Discontinued (Reorder) Start: 08-27-2022 take 1 tablet by marcell th once daily Garlic 350 MG tablet Take 1 tablet by mouth daily. 90 tablet 1 08/27/2022 Active Start: 03-09-2022 End: 08-27-2022 take 1 tablet by mouth in the morning Garlic 350 MG tablet Take 1 tablet by mouth in the morning. 90 tablet 1 03/09/2022 08/27/2022 Discontinued (Reorder) Start: 03-09-2022 take 1 tablet by marcell th in the morning Garlic 350 MG tablet Take 1 tablet by mouth in the morning. 90 tablet 1 03/09/2022 Active Start: 02-19-2022 take 350 mg by mouth once deloris y GARLIC Take 350 mg by mouth once daily. 02/19/2022 Active Start: 02-19-2022 take 350 mg by mouth once deloris y GARLIC Take 350 mg by mouth once daily. 0 02/19/2022 Active Start: 07-08-2018 Garlic 200 MG tablet Active 350 mg PO DAILY July 08, 2018 12:00am Start: 07-08-2018 take 350 mg by mouth once deloris y Garlic Active 350 MG PO DAILY July 08, 2018 12:00am Start: 07-08-2018 take 350 mg by mouth once deloris y Garlic Active 350 MG PO DAILY July 08, 2018 1:00am Comment on above: Take 350 mg by mouth once daily. ammonium lactate 120 mg/ml topical cream (20 sources) Start: 05-29-2023 Ammonium Lactate 12 % cream Active 1 NMA TOPICAL DAILY May 29, 2023 12:00am Start: 02-19-2022 End: 06-23-2024 ammonium lactate (Amlactin) 12 % cream APPLY TOPICALLY TO FEET ONCE EVERY DAY (8PM) 385 g 11 06/23/2024 Active Comment on above: APPLY TOPICALLY TO F EET ONCE EVERY DAY (8PM) loratadine 10 mg oral tablet (20 sources) Start: 02-19-2022 End: 12-19-2023 take 1 tablet by mouth once daily loratadine (Claritin) 10 MG tablet TAKE 1 TABLET BY MOUTH ONCE EVERY DAY (4PM) 31 tablet 11 12/19/2023 Active Start: 07-08-2018 take 1 capsule by [facility] once daily Loratadine (Claritin) 10 MG capsule Active 10 mg PO DAILY July 08, 2018 12:00am Comment on above: TAKE 1 TABLET BY MARCELL ONCE EVERY DAY (4PM) losartan potassium 100 mg oral tablet (20 sources) Angiotensin 2 Receptor Laisha Start: 09-04-2024 take 1 tablet by mouth once daily losartan (Cozaar) 100 MG tablet Take 1 tablet (100 mg) by mouth daily. 30 tablet 5 09/04/2024 Active Start: 05-04-2022 End: 11-01-2022 take 1 tablet by mouth once daily losartan (COZAAR) 100 mg tablet Take 1 tablet by mouth once daily. 11/01/2022 Active Start: 04-19-2022 End: 05-04-2022 take 1 tablet by mouth once daily losartan (Cozaar) 50 MG tablet Take 1 tablet (50 mg) by mouth daily. 30 tablet 0 04/19/2022 05/04/2022 Discontinued Comment on above: Take 1 tablet by marcell once daily. Multiple Vitamins-Minerals (CertaVite/Antioxida nts) tablet (20 sources) Start: 10-02-2024 take 1 tablet by mouth once daily Multiple Vitamins-Minerals (CertaVite/Antioxid ants) tablet Take 1 tablet by mouth daily. 93 tablet 1 10/02/2024 Active Start: 05-01-2024 End: 10-02-2024 take 1 tablet by mouth once daily Multiple Vitamins-Minerals (CertaVite/Antioxidants) tablet Take 1 tablet by mouth daily. 90 tablet 1 05/01/2024 10/02/2024 Discontinued (Reorder) Start: 05-01-2024 take 1 tablet by marcell th once daily Multiple Vitamins-Minerals (CertaVite/Antioxidants) tablet Take 1 tablet by mouth daily. 90 tablet 1 05/01/2024 Active Start: 12-03-2023 End: 05-01-2024 take 1 tablet by mouth once daily Multiple Vitamins-Minerals (CertaVite/Antioxidants) tablet Take 1 tablet by mouth daily. 90 tablet 1 12/03/2023 05/01/2024 Discontinued (Reorder) Start: 12-03-2023 take 1 tablet by marcell th once daily Multiple Vitamins-Minerals (CertaVite/Antioxidants) tablet Take 1 tablet by mouth daily. 90 tablet 1 12/03/2023 Active Start: 07-02-2023 End: 12-03-2023 take 1 tablet by mouth once daily Multiple Vitamins-Minerals (CertaVite/Antioxidants) tablet Take 1 tablet by mouth daily. 90 tablet 1 07/02/2023 12/03/2023 Discontinued (Reorder) Start: 07-02-2023 take 1 tablet by marcell th once daily Multiple Vitamins-Minerals (CertaVite/Antioxidants) tablet Take 1 tablet by mouth daily. 90 tablet 1 07/02/2023 Active Start: 08-08-2022 End: 07-02-2023 take 1 tablet by mouth once daily Multiple Vitamins-Minerals (CertaVite/Antioxidants) tablet TAKE 1 TABLET BY MOUTH ONCE EVERY DAY 30 tablet 10 08/08/2022 07/02/2023 Discontinued (Reorder) Start: 08-08-2022 take 1 tablet by marcell th once daily Multiple Vitamins-Minerals (CertaVite/Antioxidants) tablet TAKE 1 TABLET BY MOUTH ONCE EVERY DAY 30 tablet 10 08/08/2022 Active Start: 02-19-2022 End: 08-08-2022 take 1 tablet by mouth once daily Multiple Vitamins-Minerals (CertaVite/Antioxidants) tablet Take 1 tablet by mouth daily. 0 02/19/2022 08/08/2022 Discontinued Start: 02-19-2022 take 1 tablet by marcell th once daily Multiple Vitamins-Minerals (CertaVite/Antioxidants) tablet Take 1 tablet by mouth daily. 0 02/19/2022 Active Ubflgwmpgjyl-Rbny-Erazv Acid (Certavite-Antioxidant) 18-400 mg-mcg tablet (3 sources) Start: 05-29-2023 Multivitamin-I mony-Folic Acid (Certavite-Antioxidant) 18-400 mg-mcg tablet Active 1 {tbl} PO DAILY May 29, 2023 12:00am Start: 05-29-2023 take 1 tablet by marcell th once daily Miclrocswvas-Oqax-Xyusm Acid (Certavite-Antioxidant) 18-400 mg-mcg tablet Active 1 TABLET PO DAILY May 29, 2023 1:00am Start: 05-29-2023 take 1 tablet by marcell th once daily Aoxmvadqbizj-Tkbu-Ewrql Acid (Certavite-Antioxidant) 18-400 mg-mcg tablet Active 1 TABLET PO DAILY May 29, 2023 12:00am multivitamin/iron/folic acid (CERTAVITE-ANTIOXIDANT ORAL) (3 sources) multivitamin/iro n/folic acid (CERTAVITE-ANTIOXIDANT ORAL) Take by mouth. Active multivitamin/iro n/folic acid (CERTAVITE-ANTIOXIDANT ORAL) Take by mouth. 0 Active Comment on above: Take by mouth. nabumetone 500 mg oral tablet (20 sources) Nonsteroidal Anti-inflammatory Drug Start: take 1 tablet by mouth twice daily as needed for pain nabumetone (Relafen) 500 MG tablet Take 1 tablet (500 mg) by mouth 2 times daily as needed for mild pain (1-3) or moderate pain (4-6). 60 tablet 09/24/2024 Active Start: 10-26-2022 End: 07-23-2024 nabumetone (RELAFEN) 500 mg tablet Take 500 mg by mouth. 10/26/2022 Active Start: 08-27-2022 End: 10-18-2022 take 1 tablet by mouth twice daily nabumetone (Relafen) 500 MG tablet Take 1 tablet (500 mg) by mouth 2 times daily. 60 tablet 0 10/18/2022 Active Comment on above: Take 500 mg by mouth . omega 8-tbh-pbk-fish oil 300 mg-100 mg- 150 mg-1,000 mg cap (3 sources) Start: 02-19-2022 take 3 capsules by mouth once daily omega 1-gcb-oud-fish oil 300 mg-100 mg- 150 mg-1,000 mg cap TAKE 3 CAPSULES (3000MG) BY MOUTH ONCE EVERY DAY 02/19/2022 Active Start: 02-19-2022 take 3 capsules by out once daily omega 4-pyy-hle-fish oil 300 mg-100 mg- 150 mg-1,000 mg cap TAKE 3 CAPSULES (3000MG) BY MOUTH ONCE EVERY DAY 0 02/19/2022 Active Comment on above: TAKE 3 CAPSULES (300 0MG) BY MOUTH ONCE EVERY DAY Nome-3 Fatty Acids-Fish Oil (Fish Oil 1,000 Mg Capsule) 1 EACH capsule (6 sources) Start: 07-08-2018 Nome-3 Fatty Acids-Fish Oil (Fish Oil 1,000 Mg Capsule) 1 EACH capsule Active 3 NMA PO DAILY July 08, 2018 12:00am Start: 07-08-2018 Nome-3 Fatty Acids-Fish Oil (Fish Oil 1,000 Mg Capsule) 1 EACH capsule Active 3 EACH PO DAILY July 08, 2018 12:00am Start: 07-08-2018 Nome-3 Fatty Acids-Fish Oil (Fish Oil 1,000 Mg Capsule) 1 EACH capsule Active 3 EACH PO DAILY July 08, 2018 1:00am OXcarbazepine 600 mg oral tablet (20 sources) Anti-epileptic Agent Start: 02-19-2022 take 1 tablet by mouth twice daily OXcarbazepine (Trileptal) 600 MG tablet TAKE 1 TABLET BY MOUTH TWICE DAILY (7AM,8PM) 02/19/2022 Active Comment on above: TAKE 1 TABLET BY MARCELL TWICE DAILY (7AM,8PM) polyethylene glycol 3350 95157 mg powder for oral solution (1 source) Osmotic Laxative Start: 11-12-2023 Polyethylene Glycol 3350 (Miralax) 17 gram/dose powder Active 238 g PO ONCE 238 November 11, 2023 11:00pm Mix 8.3oz bottle with 2-32oz bottles of yellow or orange Gatorade. Use as directed by Physician. QUEtiapine 100 mg oral tablet (20 sources) Atypical Antipsychotic Start: 04-14-2024 take 1 tablet by mouth once daily QUEtiapine (SEROquel) 100 MG tablet Take 100 mg by mouth daily. 04/14/2024 Active Start: 02-09-2022 End: 05-29-2023 take 1 tablet by mouth every twenty-four hours Quetiapine 150 mg tablet extended release 24 hr Active 150 mg PO 1600 May 29, 2023 10:06am Start: 02-09-2022 End: 04-20-2024 take 150 mg by mouth once daily Quetiapine Active 150 MG PO DAILY May 29, 2023 11:06am Comment on above: Take 150 mg by mouth . Completed/Discontinued Medications Medication Drug Class(es) Dates Sig (Normalized) Sig (Original) acetaminophen 325 mg / HYDROcodone bitartrate 5 mg oral tablet (6 sources) Opioid Agonist Start: 07-08-2018 End: 07-11-2018 Hydrocodone-Acetami nophen 1 TABLET tablet Discontinued 1 {tbl} PO EVERY 6 HOURS NEEDED as needed for Pain 10 July 08, 2018 12:00am July 10, 2018 12:00am July 11, 2018 12:09am Start: 07-08-2018 End: 07-11-2018 take 1 tablet by mouth every six hours as needed Hydrocodone-Acetaminophen Discontinued 1 TABLET PO EVERY 6 HOURS NEEDED 10 July 08, 2018 1:00am July 11, 2018 1:09am acetaminophen 325 mg / oxyCODONE hydrochloride 5 mg oral tablet (6 sources) Opioid Agonist Start: 03-03-2021 End: 05-29-2023 Oxycodone-Acetaminophen 1 TABLET tablet Discontinued 1 {tbl} PO EVERY 6 HOURS NEEDED as needed for Pain 12 March 03, 2021 May 29, 2023 10:07am Start: 03-03-2021 End: 05-29-2023 take 1 tablet by mouth every six hours as needed Oxycodone-Acetaminophen Discontinued 1 TABLET PO EVERY 6 HOURS NEEDED 04 07March 03, 2021 May 29, 2023 11:07am amoxicillin 875 mg / clavulanate 125 mg oral tablet (3 sources) Penicillin-class Antibacterial Start: 05-29-2023 End: 12-16-2023 Amoxicillin-Pot Clavulanate 875-125 mg tablet Discontinued 1 {tbl} PO TWICE A DAY 20 Lavinia 24th, 2024 12:00am December 16, 2023 2:32pm Start: 05-29-2023 take 1 tablet by marcell twice daily Amoxicillin-Pot Clavulanate Active 1 TABLET PO TWICE A DAY May 29, 2023 1:00am bisacodyl 5 mg delayed release oral tablet (1 source) Stimulant Laxative Start: 11-12-2023 End: 12-16-2023 take 1 tablet by mouth once Bisacodyl (Dulcolax (Bisacodyl)) 5 mg tablet,delayed release (DR/EC) Discontinued 5 mg PO ONCE November 11, 2023 11:00pm December 16, 2023 2:32pm Take as directed by physician, per colonoscopy prep instructions carbamide peroxide 65 mg/ml otic solution (20 sources) Start: 05-29-2023 End: 10-24-2023 carbamide peroxide (Debrox) 6.5 % otic solution Carbamide Peroxide Active 5 DRP OTIC TWICE A DAY May 29, 2023 1:00am 1st 2 days of month 05/29/2023 10/24/2023 Discontinued (Therapy completed) Start: 05-29-2023 End: 12-16-2023 Carbamide Peroxide 6.5 % juan m ps Discontinued 5 NMA OTIC TWICE A DAY May 29, 2023 12:00am December 16, 2023 2:33pm 1st 2 days of month Start: 02-19-2022 End: 04-24-2023 carbamide peroxide (EAR DROP S) 6.5 % otic solution INSTILL 5 DROPS IN BOTH EARS TWICE DAILY THE 1ST 4 DAYS OF THE MONTH (7AM,8PM) 02/19/2022 Active Comment on above: INSTILL 5 DROPS IN B OTH EARS TWICE DAILY THE 1ST 4 DAYS OF THE MONTH (7AM,8PM) dexamethasone 6 mg oral tablet (6 sources) Corticosteroid Start: 02-10-20 End: 05-29-19 take 1 tablet by mouth once daily Dexamethasone 6 mg tablet Discontinued 6 mg PO DAILY February 08, 2022 11:00pm May 29, 2023 10:07am Tfktbyua-Joj-Zz-Lycop en-Lutein (Certavite Sr-Antioxidant Tab) 1 EACH tablet (6 sources) Start: 07-09-19 End: 05-29-19 Thpsgoov-Oli-Cl-Lyco pen-Lutein (Certavite Sr-Antioxidant Tab) 1 EACH tablet Discontinued 1 NMA PO DAILY July 08, 2018 12:00am May 29, 2023 10:07am Start: 07-08-2018 End: 05-29-2023 Yyduhndh-Mqu-Fs-Lycopen-Lute in (Certavite Sr-Antioxidant Tab) 1 EACH tablet Discontinued 1 EACH PO DAILY July 08, 2018 1:00am May 29, 2023 11:07am Start: 07-08-2018 End: 05-29-2023 Ghnowuti-Sca-Jv-Lycopen-Lute in (Certavite Sr-Antioxidant Tab) 1 EACH tablet Discontinued 1 EACH PO DAILY July 08, 2018 12:00am May 29, 2023 10:07am Start: 07-08-2018 Emxbyddd-Fzc-B i-Xyuryhm-Ymgoea (Certavite Sr-Antioxidant Tab) 1 EACH tablet Active 1 EACH PO DAILY July 08, 2018 12:00am Start: 07-08-2018 Nlzalmjk-Inh-B n-Lcnyvvc-Tayhog (Certavite Sr-Antioxidant Tab) 1 EACH tablet Active 1 EACH PO DAILY July 08, 2018 1:00am multivitamin with minerals (Cerovite) 18-400 mg-mcg tablet tablet (1 source) End: 04-18-2023 multivitamin with minerals (Cerovite) 18-400 mg-mcg tablet tablet Take by mouth. 0 04/18/2023 Discontinued (Therapy completed) ondansetron 4 mg disintegrating oral tablet (6 sources) Serotonin-3 Receptor Antagonist Start: 07-08-2018 End: 05-29-2023 take 1 tablet by mouth every eight hours as needed for nausea Ondansetron 4 MG tablet Discontinued 4 mg PO EVERY 8 HOURS NEEDED as needed for Nausea July 08, 2018 12:00am May 29, 2023 10:07am Problems Active Problems Problem Classification Problem Date Documented Date Episodic/Chronic Developmental disorders (20 sources) Intellectual disability; Translations: [Unspecified intellectual disabilities] Onset: 10-13-2018 02-19-2022 Chronic Disorders of lipid metabolism (20 sources) Hyperlipidemia; Translations: [Hyperlipidemia, unspecified] Onset: 03-11-2015 02-19-2022 Chronic Essential hypertension (20 sources) Essential hypertension; Translations: [Essential (primary) hypertension] Onset: 10-09-2017 02-19-2022 Chronic Headache; including migraine (5 sources) Headache; Translations: [Headache] 04-25-2022 Episodic Mood disorders (20 sources) Recurrent major depression in full remission; Translations: [Major depressive disorder, recurrent, in full remission] Onset: 10-19-2019 02-19-2022 Chronic Mood disorders (1 source) Mood disorder due to known physiological condition, unspecified; Translations: [Mood disorder due to known physiological condition, unspecified] Onset: 07-09-2024 Episodic Other circulatory disease (5 sources) Elevated blood pressure; Translations: [Elevated blood-pressure reading, without diagnosis of hypertension] 04-25-2022 Episodic Other injuries and conditions due to external causes (1 source) Avulsion of toenail; Translations: [Other specified injuries of unspecified foot, initial encounter] 02-18-2023 Episodic Other nervous system disorders (1 source) Other chronic pain; Translations: [Other chronic pain] Onset: 09-04-2023 Chronic Other upper respiratory disease (20 sources) Allergic rhinitis due to pollen; Translations: [Allergic rhinitis due to pollen] Onset: 10-12-2021 02-19-2022 Chronic Other upper respiratory disease (2 sources) Allergic rhinitis due to pollen; Translations: [Allergic rhinitis due to pollen] Onset: 02-19-2022 Chronic Residual codes; unclassified (19 sources) Obstructive sleep apnea syndrome; Translations: [Obstructive sleep apnea (adult) (pediatric)] Onset: 10-24-2023 10-24-2023 Chronic Residual codes; unclassified (2 sources) Obstructive sleep apnea (adult) (pediatric); Translations: [Obstructive sleep apnea (adult) (pediatric)] Onset: 10-24-2023 Chronic Unclassified (1 source) Low back pain, unspecified; Translations: [Low back pain, unspecified] Onset: 09-04-2023 Viral infection (8 sources) Disease caused by 2019-nCoV; Translations: [COVID-19] Episodic Past or Other Problems Problem Classification Problem Date Documented Da te Episodic/Chronic Calculus of urinary tract (20 sources) Ureteric stone of lower third of ureter; Translations: [Calculus of ureter] Onset: 04-17-2019 02-19-2022 Episodic Genitourinary symptoms and ill-defined conditions (20 sources) Benign essential microscopic hematuria; Translations: [Benign essential microscopic hematuria] Onset: 08-31-2020 02-19-2022 Episodic Mood disorders (20 sources) Mood disorders Onset: 04-18-2023 Resolved: 04-20-2024 04-18-2023 Other ear and sense organ disorders (20 sources) Impacted cerumen of bilateral ears; Translations: [Impacted cerumen, bilateral] Onset: 10-09-2017 02-19-2022 Episodic Other lower respiratory disease (20 sources) Snoring; Translations: [Snoring] Onset: 10-24-2023 10-24-2023 Episodic Other lower respiratory disease (2 sources) Snoring; Translations: [Snoring] Onset: 10-24-2023 Episodic Other screening for suspected conditions (not mental disorders or infectious disease) (14 sources) Patient encounter status; Translations: [Encounter for screening for diabetes mellitus] Onset: 10-24-2023 04-18-2023 Episodic Spondylosis; intervertebral disc disorders; other back problems (20 sources) Acute low back pain; Translations: [Acute midline low back pain without sciatica] Onset: 08-27-2022 Episodic Urinary tract infections (20 sources) Cystitis; Translations: [Cystitis, unspecified without hematuria] Onset: 08-31-2020 02-19-2022 Episodic Results Test Name Value Interpretation Reference Range Facility 36on 10-02-2024 36 Reviewed chart. Refi ll appropriate. RX sent. Normal [facility] 36 Pharmacy sent over f ax requesting refills for a 31 day supply with 11 refills OR 93 day supply with 3 refills. I pended a 93 day supply with 1 refill. Next appt: 10/15/2024 Normal [facility] Bacteria Ur Culton Bacteria identified Cx Nom (U) ORGANISM ID: 1 <10,000 CFU/ml Normal urogenital princess Normal [facility] Comment on above: Performed By: #### 6 30-4 #### [facility] CLIA [id number] [address] [place] [address] [place] [address] [place] CNOVon 09-27-2024 CNOV Office Visit ([facility] ) CHAN BURCIAGA ([id number]) 1980 M Date Time Provider Department 09/27/24 10:00 AM SEAN VERDUZCO [facility] During your visit today, we recorded the following information about you: Temperature Pulse Blood pressure Weight 97.1 degrees 96/minute 110/66 86.2 kg Sean Verduzco APRN.[facility] 09/27/2024 10:14 AM Signed [facility] Subjective Chan Burciaga is a 43 year old male. Patient presents with: Hematuria HPI Nontoxic-appearing 43-year-old male presents urgent care accompanied by caregiver. Chief complaint hematuria. Duration of symptoms 2 days. Associated symptoms dysuria and bloody urine. Pain after urination only for short amount of time. History of UTIs and kidney stones. States this feels a UTI. It is not as painful as a kidney stone. Is able to pass urine without difficulties. No fevers vomiting abdominal pain back pain flank pain testicular pain penile drainage or rashes. States overall feels well. Past medical history prescription medications allergies reviewed. Review of Systems Constitutional: Negative for appetite change, chills, diaphoresis, fatigue and fever. Gastrointestinal: Negative for abdominal pain, diarrhea, nausea and vomiting. Genitourinary: Positive for dysuria and hematuria. Negative for decreased urine volume, enuresis, flank pain, genital sores, penile discharge, penile pain, penile swelling, scrotal swelling, testicular pain and urgency. Objective BP 110/66 Pulse 96 Temp 36.2 ?C (97.1 ?F) Wt 86.2 kg (190 lb 0.6 oz) SpO2 96% Physical Exam Constitutional: Appearance: Normal appearance. He is normal weight. HENT: Head: Normocephalic. Cardiovascular: Rate and Rhythm: Normal rate and regular rhythm. Pulmonary: Effort: Pulmonary effort is normal. Breath sounds: Normal breath sounds. Abdominal: Tenderness: There is no abdominal tenderness. There is no right CVA tenderness, left CVA tenderness or guarding. Musculoskeletal: Cervical back: Normal range of motion. Neurological: Mental Status: He is alert. {ASSESSMENT/PLAN: 1. Acute cystitis with hematuria - ICD9: 595.0, ICD10: N30.01 - BACTERIAL CULTURE, URINE - UA DIP, URINE (POC) Differentials include renal calculi versus acute cystitis versus pyelonephritis. Treat as acute cystitis. placed on Keflex. Urine dip positive for blood and protein. Red flags prompt ER evaluation discussed. Follow-up with PCP 2 to 3 days. Patient was educated on supportive therapies. Patient was instructed to immediately proceed to emergency room for any new, worsening, or symptoms lasting longer than anticipated. The patient's clinical presentation is otherwise unremarkable at this time. Based on exam and clinical finding, the patient is stable for discharge. Plan of care was discussed with patient. Patient verbalizes understanding and agrees to plan of care. This note was generated using [facility] software. It may contain errors in wording, punctuation, or spelling. Sean Verduzco APRN.[facility] History and Record Review Clinical information obtained from an independent historian. History obtained from or confirmed by: other (see comments) and parent. External record(s) reviewed: prior outpatient record. Disposition The patient was discharged. Procedures Referring Provider: SELF [[id number]] Allergies As of Date: 09/27/2024 Noted Allergy Reaction RISPERIDONE 03/10/2015 1 - Mental Status Change Date Reviewed: 09/27/2024 Reviewed by: Sean Verduzco APRN.CONTENT CHECKER - Fully Assessed Reason for Visit: Hematuria [335] Primary Visit Diagnosis:Acute cystitis with hematuria [N30.01] Order(s):BACTERIAL CULTURE, URINE [SQURCUL] Order #: [id number]. #:[id number] UA DIP, URINE (POC) [[id number]] Order #: [id number] UA DIP, URINE (POC) [[id number]] Order #: [id number]. #:[id number] -LAB cephALEXin (KEFLEX) 500 mg capsuleTake 1 capsule by mouth two times a day for 7 days.Disp: 14 capsuleRfl: 0 Prescriptions as of 09/27/2024 - cephALEXin (KEFLEX) 500 mg capsule Take 1 capsule by mouth two times a day for 7 days. - ammonium lactate (LAC-HYDRIN) 12 % cream APPLY TOPICALLY TO FEET ONCE EVERY DAY (8PM) - atorvastatin (LIPITOR) 40 mg tablet Take 1 tablet by mouth once daily. - cloNIDine HCl (CATAPRES) 0.1 mg tablet Take 1 tablet by mouth two times a day. - carbamide peroxide (EAR DROPS) 6.5 % otic solution INSTILL 5 DROPS IN BOTH EARS TWICE DAILY THE 1ST 4 DAYS OF THE MONTH (7AM,8PM) - doxazosin (CARDURA) 2 mg tablet TAKE 1 TABLET BY MOUTH EVERY NIGHT AT BEDTIME (8PM) - fenofibrate nanocrystallized (TRICOR) 145 mg tablet Take 1 tablet by mouth once daily. - fluticasone (FLONASE) 50 mcg/actuation nasal spray 2 Sprays. - folic acid 400 mcg tablet Take 1 tablet by mouth once daily. - loratadine (CLARITIN) 10 mg tablet TAKE 1 TABLET BY M (more content not included)... Normal [facility] UA DIP, URINE (POC)on 2024 BILIRUBIN UA (POCT) Small Abnormal Negative [facility] CLARITY UA (POCT) Cloudy [facility] COLOR UA (POCT) Red [facility] GLUCOSE UA (POCT) Negative Negative mg/dL [facility] Hemoglobin Ql (U) Large Abnormal Negative [facility] Interpretation and review of laboratory results Abnormal [facility] KETONE UA (POCT) Negative Negative mg/dL [facility] LEUKOCYTES UA (POCT) Negative Negative [facility] NITRITE UA (POCT) Negative Negative [facility] PH UA (POCT) 6.5 4.5 - 8.0 [facility] Protein Ql (U) 100 mg/dL Abnormal Negative [facility] SPECIFIC GRAVITY UA (POCT) 1.02 1.005 - 1.030 [facility] UROBILINOGEN UA (POCT) 1 Lin l E.U./dL [facility] Location:[address], [place], [address] [facility] POINT OF CARE [facility] 36on 09-24-2024 36 Medication name: nab umetone (Relafen) 500 MG tablet Medication dosage: 500 mg (Miligrams Monthly quantity needed: 60 How many day supply requestin days Medication route: oral (PO) Medication administration time(s): 2 times a day (BID) If taking medication PRN, reason for taking medication: as needed for mild pain (1-3) or moderate pain (4-6) If this is a controlled substance do you receive this or any other controlled medication from any other doctor or facility: N/A Ordering provider: Ramiro Rosa MD Date of last office visit: 04/20/24 Date of next office visit: 10/15/24 Date of last refill: (see medication tab): 07/23/24 Updated/Validated preferred pharmacy: Yes [facility] - [facility] [address] [facility] [address] [address] Patient instructed to contact the pharmacy prior to picking up the medication: Yes [place] [id number] 36 Notified Brad. [place] [address] Yes, he is still see ing Dr. Rosa and yes I will continue to sign for his home care [place] [address] Name of caller: Brad ([facility]) Contact phone number: [phone] Relationship to Patient: na Provider: Dr. Rosa Practice: [facility] Chief Complaint/Reason for Call: Calling to advise Pt will have re-cert for penitentiary next week. Needs to verify that Pt is still seeing Dr. Rosa and that Dr. Rosa will continue to follow Pt for services. Please advise Best time of day caller can be reached: Any AM Patient advised that office/PCP has 24-48 business hours to return their call: Yes [facility] 3609-04-2024 36 Rx sent. Follow up a s scheduled. [place] [address] Received fax for ref ill request. Pended. [facility] 3608-20-2024 36 Prescription Request : Last medication check: 10/24/2023 Last physical exam: 04/20/2024 Next scheduled appointment: 10/15/2024 CSA on file (date): N/A Last urine drug screen: N/A Last date of refill on this medication 05/01/[address] 08-10-2024 [address] 07-23-2024 36 Medication name: nab umetone (Relafen) 500 MG tablet Medication dosage: 500 mg (Miligrams Monthly quantity needed: 60 How many day supply requestin days Medication route: oral (PO) Medication administration time(s): as needed (PRN) If taking medication PRN, reason for taking medication: mild pain(1-3) or moderate pain(4-6) If this is a controlled substance do you receive this or any other controlled medication from any other doctor or facility: No Ordering provider: Dr. Rosa Date of last office visit: 04.20.2024 Date of next office visit: 10.20.2024 Date of last refill: (see medication tab): 09.27.2023 Updated/Validated preferred pharmacy: Yes Patient instructed to contact the pharmacy prior to picking up the medication: Yes [address] 07-15-2024 36 Notified Brad. [place] [address] Okay to continue, ye s we will sign and follow [place] [address] Name of caller: Brad Contact phone number: [phone] Relationship to Patient: [facility] Provider: Dr. Rosa Practice: [facility] Chief Complaint/Reason for Call: Brad called and stated Chan is doing fine and is asking to re certify patient for penitentiary to be continued and is asking to have a call back by 07/17/24. Brad is asking to follow and sign the plan of care. Please advise. Best time of day caller can be reached: any Patient advised that office/PCP has 24-48 business hours to return their call: Yes [address] 07-14-2024 36 Medication name: doxazosin (Cardura) 2 MG tablet Medication dosage: 2 mg (Miligrams Monthly quantity needed: 31 tab How many day supply requestin/refills Medication route: oral (PO) Medication administration time(s): bedtime (HS) If taking medication PRN, reason for taking medication: N/A If this is a controlled substance do you receive this or any other controlled medication from any other doctor or facility: N/A Ordering provider: Dr. Rosa Date of last office visit: 04/20/24 Date of next office visit: 10/20/24 Date of last refill: (see medication tab): 07/11/23 Updated/Validated preferred pharmacy: Yes Patient instructed to contact the pharmacy prior to picking up the medication: Yes Normal [facility] Trileptal-Oxcarbazepineon OXCARBAZEPINE 31 ug/mL Normal 10-35 [facility] Comment on above: Result Comment: This test was developed and its performance characteristics determined by [facility]. It has not been cleared or approved by the Food and Drug Administration. Detection Limit = 1 Performed at: [address] [id number] Clinical Material Handler: Andra Sawant MD, Phone: [phone] Performed By: #### L 3800.1700, L100.0500, L500.4050 #### [facility] [address] [place], [address] Albumin to globulin ratioOrd ered By: Dajuan Morrison on 06-26-2024 Albumin/Globulin [Mass ratio] 1.2 {ratio} 0.9-2.4 [facility] Bilirubin, totalOrdered By: Dajuan Morrison on 06-26-2024 Bilirubin [Mass/Vol] 0.50 mg/dL 0.20-1.00 [facility] Comment on above: For patients on eltr ombopag therapy, use of Dimension [place] TBIL is not recommended. Blood urea nitrogen (BUN)/cr eatinine ratioOrdered By: Dajuan Morrison on 06-26-2024 Urea nitrogen/Creatinine [Mass ratio] 15.7 mg/mg 10-20 [facility] CBC-Complete Blood Cnt No Di ffon 06-26-2024 Erythrocyte distribution width (RBC) [Ratio] 13.3 % Normal 11.6-14.6 [facility] Comment on above: Performed By: #### L 3800.1700, L100.0500, L500.4050 #### [facility] [address] [place], [address] Hematocrit (Bld) [Volume fraction] 42.3 % Normal 40-54 [facility] Comment on above: Performed By: #### L 3800.1700, L100.0500, L500.4050 #### [facility] [address] [place], [address] Hemoglobin (Bld) [Mass/Vol] 14.0 g/dL Normal 13.0-16.5 [facility] Comment on above: Performed By: #### L 3800.1700, L100.0500, L500.4050 #### [facility] [address] [place], [address] MCH (RBC) [Entitic mass] 28.6 pg Normal 27.0-32.0 [facility] Comment on above: Performed By: #### L 3800.1700, L100.0500, L500.4050 #### [facility] [address] [place], [address] MCHC (RBC) [Mass/Vol] 33.1 g/dL Normal 32-36 [facility] Comment on above: Performed By: #### L 3800.1700, L100.0500, L500.4050 #### [facility] [address] [place], [address] MCV (RBC) [Entitic vol] 86.5 fL Normal 80-94 [facility] Comment on above: Performed By: #### L 3800.1700, L100.0500, L500.4050 #### [facility] [address] [place], [address] Platelet mean volume (Bld) [Entitic vol] 9.3 fL Normal 6.2-12.0 [facility] Comment on above: Performed By: #### L 3800.1700, L100.0500, L500.4050 #### [facility] [address] [place], [address] Platelets (Bld) [#/Vol] 324 10*3/uL Normal 150-450 [facility] Comment on above: Performed By: #### L 3800.1700, L100.0500, L500.4050 #### [facility] [address] [place], [address] RBC (Bld) [#/Vol] 4.89 10*6/uL Normal 4.6-6.2 [facility] Comment on above: Performed By: #### L 3800.1700, L100.0500, L500.4050 #### [facility] [address] [place], [address] RDW SD 42.1 fl Normal 35.1-43.9 [facility] Comment on above: Performed By: #### L 3800.1700, L100.0500, L500.4050 #### [facility] [address] [place], [address] WBC (Bld) [#/Vol] 9.2 10*3/uL Normal 4.4-11.0 [facility] Comment on above: Performed By: #### L 3800.1700, L100.0500, L500.4050 #### [facility] [address] [place], [address] Carbon dioxide measurementOr dered By: Dajuan Morrison on 06-26-2024 CO2 [Moles/Vol] 23.0 mmol/L 21.0-32.0 [facility] Chloride measurementOrdered By: Dajuan Morrison on 06-26-2024 Chloride [Moles/Vol] 107 mmol/L 98-107 [facility] Comprehensive Metabolic Prof ilon 06-26-2024 Albumin [Mass/Vol] 3.7 g/dL Normal 3.2-5.0 [facility] Comment on above: Performed By: #### L 3800.1700, L100.0500, L500.4050 #### [facility] [address] [place], [address] Albumin/Globulin [Mass ratio] 1.2 {ratio} Normal 0.9-2.4 [facility] Comment on above: Performed By: #### L 3800.1700, L100.0500, L500.4050 #### [facility] [address] [place], [address] ALK P 63 U/L Normal 45-117 [facility] Comment on above: Performed By: #### L 3800.1700, L100.0500, L500.4050 #### [facility] [address] [place], [address] ALT [Catalytic activity/Vol] 99 U/L High 16-61 [facility] Comment on above: Performed By: #### L 3800.1700, L100.0500, L500.4050 #### [facility] [address] [place], [address] AST [Catalytic activity/Vol] 41 U/L High 15-37 [facility] Comment on above: Performed By: #### L 3800.1700, L100.0500, L500.4050 #### [facility] [address] [place], [address] Bilirubin [Mass/Vol] 0.50 mg/dL Normal 0.20-1.00 [facility] Comment on above: Result Comment: For patients on eltrombopag therapy, use of Dimension [place] TBIL is not recommended. Performed By: #### L 3800.1700, L100.0500, L500.4050 #### [facility] [address] [place], [address] BUN/CRE 15.7 RATIO Normal 10-20 [facility] Comment on above: Performed By: #### L 3800.1700, L100.0500, L500.4050 #### [facility] [address] [place], [address] CA,Total 9.4 mg/dL Normal 8.5-10.1 [facility] Comment on above: Performed By: #### L 3800.1700, L100.0500, L500.4050 #### [facility] [address] [place], [address] Chloride [Moles/Vol] 107 mmol/L Normal 98-107 [facility] Comment on above: Performed By: #### L 3800.1700, L100.0500, L500.4050 #### [facility] [address] [place], [address] CO2 [Moles/Vol] 23.0 mmol/L Normal 21.0-32.0 [facility] Comment on above: Performed By: #### L 3800.1700, L100.0500, L500.4050 #### [facility] [address] [place], [address] Creatinine [Mass/Vol] 1.08 mg/dL Normal 0.70-1.30 [facility] Comment on above: Result Comment: The validity of the calculated GFR GFRAA in patients over 70 years has not been determined. Clinical correlation is essential. Performed By: #### L 3800.1700, L100.0500, L500.4050 #### [facility] [address] [place], [address] EST GFR - AA 95 mL/min Normal >60 [facility] Comment on above: Result Comment: Afri can [place] GFR Calc Performed By: #### L 3800.1700, L100.0500, L500.4050 #### [facility] [address] [place], [address] GAP 8 Normal 5-15 [facility] Comment on above: Performed By: #### L 3800.1700, L100.0500, L500.4050 #### [facility] [address] [place], [address] GFR/1.73 sq M.predicted among non-blacks MDRD (S/P/Bld) [Vol rate/Area] 78 mL/min/{1.73_m2} Normal >60 [facility] Comment on above: Result Comment: Non- GFR Calc Performed By: #### L 3800.1700, L100.0500, L500.4050 #### [facility] [address] [place], [address] Globulin (S) [Mass/Vol] 3.2 g/dL Normal 2.2-4.2 [facility] Comment on above: Performed By: #### L 3800.1700, L100.0500, L500.4050 #### [facility] [address] [place], [address] Glucose [Mass/Vol] 107 mg/dL High 74-106 [facility] Comment on above: Result Comment: Fast ing Glucose result from 100 to 125 mg/dL suggests IMPAIRED HOMEOSTASIS per A.D.A. criteria. Performed By: #### L 3800.1700, L100.0500, L500.4050 #### [facility] [address] [place], [address] Potassium [Moles/Vol] 3.8 mmol/L Normal 3.5-5.1 [facility] Comment on above: Performed By: #### L 3800.1700, L100.0500, L500.4050 #### [facility] [address] [place], [address] Sodium [Moles/Vol] 138 mmol/L Normal 136-145 [facility] Comment on above: Performed By: #### L 3800.1700, L100.0500, L500.4050 #### [facility] [address] [place], [address] T PROT 6.9 g/dL Normal 6.4-8.2 [facility] Comment on above: Performed By: #### L 3800.1700, L100.0500, L500.4050 #### [facility] [address] [place], [address] Urea nitrogen [Mass/Vol] 17 mg/dL Normal 7-18 [facility] Comment on above: Performed By: #### L 3800.1700, L100.0500, L500.4050 #### [facility] [address] [place], [address] Erythrocyte distribution wid th ratioOrdered By: Dajuan Morrison on 06-26-2024 Erythrocyte distribution width (RBC) [Ratio] 13.3 % 11.6-14.6 [facility] Erythrocyte distribution wid th standard deviationOrdered By: Dajuan Morrison on 06-26-2024 Erythrocyte distribution width (RBC) [Entitic vol] 42.1 fL 35.1-43.9 [facility] Estimated glomerular filtrat ion rate (GFR) AmericanOrdered By: Dajuan Morrison on 06-26-2024 Estimated GFR (MDRD) Amer 95 mL/min >60 [facility] Comment on above: GFR Calc Glomerular filtration rate ( GFR) estimationOrdered By: Dajuan Morrison on 06-26-2024 Estimated GFR (MDRD) Non-Af Amer 78 mL/min >60 [facility] Comment on above: Non- GFR Calc Glucose measurementOrdered B y: Dajuan Morrison on 06-26-2024 Glucose [Mass/Vol] 107 mg/dL High 74-106 [facility] Comment on above: Fasting Glucose resu lt from 100 to 125 mg/dL suggests IMPAIRED HOMEOSTASIS per A.D.A. criteria. Hematocrit Auto (Bld) [Volum e fraction]Ordered By: Dajuan Morrison on 06-26-2024 Hematocrit (Bld) [Volume fraction] 42.3 % 40-54 [facility] Hemoglobin measurementOrdere d By: Dajuan Morrison on 06-26-2024 Hemoglobin (Bld) [Mass/Vol] 14.0 g/dL 13.0-16.5 [facility] - Chemistry and C hemistry - challengeOrdered By: Dajuan Morrison on 06-26-2024 AST [Catalytic activity/Vol] 41 U/L High 15-37 [facility] MCV (mean corpuscular volume ) determinationOrdered By: Dajuan Morrison on 06-26-2024 MCV (RBC) [Entitic vol] 86.5 fL 80-94 [facility] Mean corpuscular hemoglobin (MCH) determinationOrdered By: Dajuan Morrison on 06-26-2024 MCH (RBC) [Entitic mass] 28.6 pg 27.0-32.0 [facility] Mean corpuscular hemoglobin concentration (MCHC) determinationOrdered By: Dajuan Morrison on 06-26-2024 MCHC (RBC) [Mass/Vol] 33.1 g/dL 32-36 [facility] Mean platelet volume determi nationOrdered By: Dajuan Morrison on 06-26-2024 Platelet mean volume (Bld) [Entitic vol] 9.3 fL 6.2-12.0 [facility] OXcarbazepine [Mass/Vol]Orde red By: Dajuan Morrison on 06-26-2024 Oxcarbazepine Level 31 ug/mL 10-35 [facility] Comment on above: This test was develo ped and its performance characteristicsdetermined by [employer]. It has not been cleared orapproved by the Food and Drug Administration. Detection Limit = 1Performed at: [facility] [place] [id number] [place], [place] [id number] Director: Andra Sawant MD, Phone: [phone] Platelet countOrdered By: Mary Morrison on 06-26-2024 Platelets (Bld) [#/Vol] 324 10*3/uL 150-450 [facility] Potassium measurementOrdered By: Dajuan Morrison on 06-26-2024 Potassium [Moles/Vol] 3.8 mmol/L 3.5-5.1 [facility] RBC Auto (Bld) [#/Vol]Ordere d By: Dajuan Morrison on 06-26-2024 RBC (Bld) [#/Vol] 4.89 10*6/uL 4.6-6.2 [facility] Serum anion gap measurementO rdered By: Dajuan Morrison on 06-26-2024 Anion gap [Moles/Vol] 8 mmol/L 5-15 [facility] Serum globulin measurementOr dered By: Dajuan Morrison on 06-26-2024 Globulin (S) [Mass/Vol] 3.2 g/dL 2.2-4.2 [facility] Serum or plasma alanine rousseau otransferase (ALT) measurementOrdered By: Dajuan Morrison on 06-26-2024 ALT [Catalytic activity/Vol] 99 U/L High 16-61 [facility] Serum or plasma albumin ashlee urement (mass/volume)Ordered By: Dajuan Morrison on 06-26-2024 Albumin [Mass/Vol] 3.7 g/dL 3.2-5.0 [facility] Serum or plasma alkaline monica sphatase measurementOrdered By: Dajuan Morrison on 06-26-2024 ALP [Catalytic activity/Vol] 63 U/L 45-117 [facility] Serum or plasma calcium ashlee urement (mass/volume)Ordered By: Dajuan Morrison on 06-26-2024 Calcium [Mass/Vol] 9.4 mg/dL 8.5-10.1 [facility] Serum or plasma creatinine m easurement (mass/volume)Ordered By: Dajuan Morrison on 06-26-2024 Creatinine [Mass/Vol] 1.08 mg/dL 0.70-1.30 [facility] Comment on above: The validity of the calculated GFR & GFRAA in patients over 70 years has not been determined. Clinical correlation is essential. Serum or plasma urea nitroge n measurement (mass/volume)Ordered By: Dajuan Morrison on 06-26-2024 Urea nitrogen [Mass/Vol] 17 mg/dL 7-18 [facility] Sodium levelOrdered By: Cricket Morrison on 06-26-2024 Sodium [Moles/Vol] 138 mmol/L 136-145 [facility] Total proteinOrdered By: Juvenal Morrison on 06-26-2024 Protein [Mass/Vol] 6.9 g/dL 6.4-8.2 [facility] White blood cell (WBC) count Ordered By: Dajuan Morrison on 06-26-2024 WBC (Bld) [#/Vol] 9.2 10*3/uL 4.4-11.0 [facility] 36on 06-23-2024 36 Prescription Request : Last medication check: 10/24/2023 Last physical exam: 04/20/2024 Next scheduled appointment: 10/20/2024 Last date of refill on this medication: 06/04/23 [facility] 36on 05-04-2024 36 Reviewed chart. Refi ll appropriate. RX sent. [facility] 36 [place] [facility] requesting refill for Folic Acid 400mcg for 9 days w/1 refill. Prescription Request: Last medication check: 10/24/2023 Last physical exam: 04/20/2024 Next scheduled appointment: 10/20/2024 Last date of refill on this medication: 12/03/2023 [facility] 36on 05-01-2024 36 Reviewed chart. Refi ll appropriate. RX sent. [facility] 36 Prescription Request : Last medication check: 10/24/23 Last physical exam: 04/20/24 Next scheduled appointment: 10/20/24 Last date of refill on this medication 12/03/23 90 day 1 refill [facility] Office Visiton 04-20-2024 Follow-up visit [id number] Cb Burciaga 1980 M Date Provider Department Center 04/20/2024 [id number] [facility] Family History Family Status - Relation Status Age at Mother Father Alive Level of Service:67850 [place] PERIODIC PREVENTIVE MED EST PATIENT 40-64YRS Reason for Visit and Comments: Annual Exam [83] Blood Work [932401] Health Maintenance [872] - 4th covid vaccine- not done [facility] Progress Noteon 04-20-2024 Progress Note Stable, continue Foster nase and Claritin. Normal [facility] Progress Note Stable, managed by luiz cole continue current medications Normal [facility] Progress Note Stable, no current problem [facility] Progress Note controlled, continue a atorvastatin 40 mg daily and fenofibrate 145 mg daily Normal [facility] Progress Note Can roll, continue clonidine 0.2 mg, doxazosin 2 mg losartan 100 mg Normal [facility] Progress Note Stable, no sleep [employer] ea on sleep sleep study Normal [facility] Progress Note 04/20/2024 Chan Burciaga (: 1980) is a 43 y.o. male , Established patient, here for evaluation of the following chief complaint(s): Annual Exam, Blood Work, and Health Maintenance (4th covid vaccine- not done) ASSESSMENT/PLAN: 1. Annual physical exam 2. Essential hypertension Assessment & Plan: Can roll, continue clonidine 0.2 mg, doxazosin 2 mg losartan 100 mg 3. Hyperlipidemia LDL goal <100 Assessment & Plan: controlled, continue a atorvastatin 40 mg daily and fenofibrate 145 mg daily Orders: - Lipid panel 4. Intellectual disability Assessment & Plan: Stable, no current problem 5. Recurrent major depressive disorder, in full remission (HCC) Assessment & Plan: Stable, managed by psych continue current medications 6. Seasonal allergic rhinitis due to pollen Assessment & Plan: Stable, continue Flonase and Claritin. 7. Loud snoring Assessment & Plan: Stable, no sleep apnea on sleep sleep study 8. Screening for diabetes mellitus - Comprehensive metabolic panel 9. Screening for prostate cancer - PSA Total (Screening) Follow up in about 6 months (around 10/19/2024). SUBJECTIVE/OBJECTIVE: MIGUEL ÁNGEL Bird comes in today for an annual exam, he has no complaints today. He has a history of loud snoring but he had a sleep study which was negative for sleep apnea, he has an intellectual disability and he lives in a [facility]. He has hypertension and his blood pressure is excellent today he has hyperlipidemia which is controlled seasonal allergies and he has depression and anxiety. Review of Systems Constitutional: Negative for activity change, appetite change, chills, fever and unexpected weight change. HENT: Negative for ear pain and sore throat. Respiratory: Negative for shortness of breath. Cardiovascular: Negative for chest pain and palpitations. Gastrointestinal: Negative for abdominal pain, blood in stool, constipation and diarrhea. Genitourinary: Negative for dysuria, frequency, hematuria and urgency. Musculoskeletal: Negative for arthralgias and back pain. Skin: Negative. Neurological: Negative for weakness and numbness. Psychiatric/Behavioral: Negative for dysphoric mood. The patient is not nervous/anxious. Vitals: 04/20/24 1104 BP: 117/74 Pulse: 73 SpO2: 94% Weight: 190 lb 12.8 oz (86.5 kg) Height: 5' 5.5 (1.664 m) Physical Exam Vitals and nursing note reviewed. Constitutional: General: He is not in acute distress. Appearance: Normal appearance. He is obese. HENT: Right Ear: Tympanic membrane, ear canal and external ear normal. Left Ear: Tympanic membrane, ear canal and external ear normal. Mouth/Throat: Mouth: Mucous membranes are moist. Pharynx: Oropharynx is clear. Eyes: Extraocular Movements: Extraocular movements intact. Conjunctiva/sclera: Conjunctivae normal. Pupils: Pupils are equal, round, and reactive to light. Neck: Thyroid: No thyromegaly. Cardiovascular: Rate and Rhythm: Normal rate and regular rhythm. Heart sounds: Normal heart sounds. No murmur heard. Pulmonary: Effort: Pulmonary effort is normal. Breath sounds: Normal breath sounds. Abdominal: General: Bowel sounds are normal. Palpations: Abdomen is soft. Tenderness: There is no abdominal tenderness. Musculoskeletal: General: Normal range of motion. Cervical back: Neck supple. Lymphadenopathy: Cervical: No cervical adenopathy. Skin: General: Skin is warm and dry. Neurological: General: No focal deficit present. Mental Status: He is alert and oriented to person, place, and time. Psychiatric: Mood and Affect: Mood normal. An electronic signature was used to authenticate this note. Ramiro Rosa MD 04/20/2024 12:50 PM [facility] Progress Note Patient verified by last name and date of . [facility] 36on 04-17-2024 36 lm to pre-visit plan for appointment with dr Rosa on 04/20/24 11am. Please ask patient to arrive 15 minutes early with Photo ID, insurance card Fasting: yes Put call through to office for pvp [facility] 36on 04-06-2024 36 Reviewed chart. Refi ll appropriate. RX sent. [facility] 36 Prescription Request : Last medication check: 10/24/2023 Last physical exam: 04/18/2023 Next scheduled appointment: 04/20/2024 Last date of refill on this medication: 11/12/2023 [facility] 36on 03-20-2024 36 Notified on angela luo. [facility] 36 Will follow patient. Thank you. [facility] 36 Name of caller: Brad Contact phone number: [phone] Relationship to Patient: [facility] Provider: Dr. Rosa Practice: [facility] Chief Complaint/Reason for Call: Caller stated pt plan of care is up next week and they will be doing a re certification for pt and caller wants to make sure Dr. Rosa will still be following patient. Please advise. Thank you. Best time of day caller can be reached: Any Patient advised that office/PCP has 24-48 business hours to return their call: Yes [facility] CBC W/Diff, Automatedon 02-03 Absolute Lymph 1.76 X10 3/uL Normal 0.83-4.51 [facility] Comment on above: Performed By: #### L 100.0100, L500.4050 #### [facility] [address] [place], [address] Absolute Neut 9.0 X10 3/uL High 2.0-7.7 [facility] Comment on above: Performed By: #### L 100.0100, L500.4050 #### [facility] [address] [place], [address] Basophils/100 WBC (Bld) 0.5 % Normal 0-1 [facility] Comment on above: Performed By: #### L 100.0100, L500.4050 #### [facility] [address] [place], [address] Eosinophils/100 WBC (Bld) 4.6 % Normal 0-5 [facility] Comment on above: Performed By: #### L 100.0100, L500.4050 #### [facility] [address] [place], [address] Erythrocyte distribution width (RBC) [Ratio] 13.4 % Normal 11.6-14.6 [facility] Comment on above: Performed By: #### L 100.0100, L500.4050 #### [facility] [address] [place] [place], [address] Hematocrit (Bld) [Volume fraction] 42.4 % Normal 40-54 [facility] Comment on above: Performed By: #### L 100.0100, L500.4050 #### [facility] [address] [place], [address] Hemoglobin (Bld) [Mass/Vol] 14.0 g/dL Normal 13.0-16.5 [facility] Comment on above: Performed By: #### L 100.0100, L500.4050 #### [facility] [address] [place] [place], [address] IG% 0.600 Normal 0.0-0.9 [facility] Comment on above: Result Comment: IG% - Immature Granulocytes (promyelocytes, myelocytes and metamyelocytes) > 1% indicates that a LEFT SHIFT is Present. Performed By: #### L 100.0100, L500.4050 #### [facility] [address] [place], [address] Lymphocytes/100 WBC (Bld) 14.8 % Low 19-41 [facility] Comment on above: Performed By: #### L 100.0100, L500.4050 #### [facility] [address] [place], [address] MCH (RBC) [Entitic mass] 29.1 pg Normal 27.0-32.0 [facility] Comment on above: Performed By: #### L 100.0100, L500.4050 #### [facility] [address] [place], [address] MCHC (RBC) [Mass/Vol] 33.0 g/dL Normal 32-36 [facility] Comment on above: Performed By: #### L 100.0100, L500.4050 #### [facility] [address] [place], [address] MCV (RBC) [Entitic vol] 88.1 fL Normal 80-94 [facility] Comment on above: Performed By: #### L 100.0100, L500.4050 #### [facility] [address] [place], [address] Monocytes/100 WBC (Bld) 3.4 % Normal 0-10 [facility] Comment on above: Performed By: #### L 100.0100, L500.4050 #### [facility] [address] [place], [address] Neutrophils/100 WBC (Bld) 76.1 % High 47-70 [facility] Comment on above: Performed By: #### L 100.0100, L500.4050 #### [facility] [address] [place], [address] Nucleated RBC (Bld) [#/Vol] 0 10*3/uL Normal 0-5 [facility] Comment on above: Performed By: #### L 100.0100, L500.4050 #### [facility] [address] [place], [address] Platelet mean volume (Bld) [Entitic vol] 9.2 fL Normal 6.2-12.0 [facility] Comment on above: Performed By: #### L 100.0100, L500.4050 #### [facility] [address] [place], [address] Platelets (Bld) [#/Vol] 344 10*3/uL Normal 150-450 [facility] Comment on above: Performed By: #### L 100.0100, L500.4050 #### [facility] [address] [place], [address] RBC (Bld) [#/Vol] 4.81 10*6/uL Normal 4.6-6.2 [facility] Comment on above: Performed By: #### L 100.0100, L500.4050 #### [facility] [address] [place], [address] RDW SD 43.2 fl Normal 35.1-43.9 [facility] Comment on above: Performed By: #### L 100.0100, L500.4050 #### [facility] [address] [place], [address] WBC (Bld) [#/Vol] 11.9 10*3/uL High 4.4-11.0 [facility] Comment on above: Performed By: #### L 100.0100, L500.4050 #### [facility] [address] [place], [address] Comprehensive Metabolic Prof [facility] 02-14-2024 Albumin [Mass/Vol] 3.9 g/dL Normal 3.2-5.0 [facility] Comment on above: Performed By: #### L 100.0100, L500.4050 #### [facility] [address] [place], [address] Albumin/Globulin [Mass ratio] 1.4 {ratio} Normal 0.9-2.4 [facility] Comment on above: Performed By: #### L 100.0100, L500.4050 #### [facility] [address] [place], [address] ALK P 71 U/L Normal 45-117 [facility] Comment on above: Performed By: #### L 100.0100, L500.4050 #### [facility] [address] [place], [address] ALT [Catalytic activity/Vol] 121 U/L High 16-61 [facility] Comment on above: Performed By: #### L 100.0100, L500.4050 #### [facility] [address] [place], [address] AST [Catalytic activity/Vol] 53 U/L High 15-37 [facility] Comment on above: Performed By: #### L 100.0100, L500.4050 #### [facility] [address] [place], [address] Bilirubin [Mass/Vol] 0.50 mg/dL Normal 0.20-1.00 [facility] Comment on above: Result Comment: For patients on eltrombopag therapy, use of Dimension [place] TBIL is not recommended. Performed By: #### L 100.0100, L500.4050 #### [facility] [address] [place], [address] BUN/CRE 13.8 RATIO Normal 10-20 [facility] Comment on above: Performed By: #### L 100.0100, L500.4050 #### [facility] [address] [place], [address] CA,Total 10.0 mg/dL Normal 8.5-10.1 [facility] Comment on above: Performed By: #### L 100.0100, L500.4050 #### [facility] [address] [place], [address] Chloride [Moles/Vol] 103 mmol/L Normal 98-107 [facility] Comment on above: Performed By: #### L 100.0100, L500.4050 #### [facility] [address] [place], [address] CO2 [Moles/Vol] 25.0 mmol/L Normal 21.0-32.0 [facility] Comment on above: Performed By: #### L 100.0100, L500.4050 #### [facility] [address] [place], [address] Creatinine [Mass/Vol] 1.30 mg/dL Normal 0.70-1.30 [facility] Comment on above: Result Comment: The validity of the calculated GFR GFRAA in patients over 70 years has not been determined. Clinical correlation is essential. Performed By: #### L 100.0100, L500.4050 #### [facility] [address] [place], [address] EST GFR - AA 77 mL/min Normal >60 [facility] Comment on above: Result Comment: Afri can Slovak GFR Calc Performed By: #### L 100.0100, L500.4050 #### [facility] [address] [place] [place], [address] GAP 8 Normal 5-15 [facility] Comment on above: Performed By: #### L 100.0100, L500.4050 #### [facility] [address] [place], [address] GFR/1.73 sq M.predicted among non-blacks MDRD (S/P/Bld) [Vol rate/Area] 63 mL/min/{1.73_m2} Normal >60 [facility] Comment on above: Result Comment: Non- GFR Calc Performed By: #### L 100.0100, L500.4050 #### [facility] [address] [place], [address] Globulin (S) [Mass/Vol] 2.7 g/dL Normal 2.2-4.2 [facility] Comment on above: Performed By: #### L 100.0100, L500.4050 #### [facility] [address] [place], [address] Glucose [Mass/Vol] 164 mg/dL High 74-106 [facility] Comment on above: Result Comment: Fast ing Glucose result greater than or equal to 126 mg/dL suggests DIABETES MELLITUS per A.D.A. criteria. Performed By: #### L 100.0100, L500.4050 #### [facility] [address] [place], [address] Potassium [Moles/Vol] 3.9 mmol/L Normal 3.5-5.1 [facility] Comment on above: Performed By: #### L 100.0100, L500.4050 #### [facility] [address] [place], [address] Sodium [Moles/Vol] 136 mmol/L Normal 136-145 [facility] Comment on above: Performed By: #### L 100.0100, L500.4050 #### [facility] [address] [place], [address] T PROT 6.6 g/dL Normal 6.4-8.2 [facility] Comment on above: Performed By: #### L 100.0100, L500.4050 #### [facility] [address] [place], [address] Urea nitrogen [Mass/Vol] 18 mg/dL Normal 7-18 [facility] Comment on above: Performed By: #### L 100.0100, L500.4050 #### [facility] [address] [place], [address] 36on 02-03-2024 36 Pharmacy requesting refill. Prescription Request: Last medication check: 10/24/2023 Last physical exam: 04/18/2023 Next scheduled appointment: 04/20/2024 Last date of refill on this medication: 03/29/2023 [facility] 36on 01-24-2024 36 Yes, thank you [facility] 36 Name of caller: Brad Contact phone number: [phone] Relationship to Patient: [facility] Provider: Dr Rosa Practice: [facility] Chief Complaint/Reason for Call: Caller stated that there are no changes with patient. Caller is asking if Dr Rosa will continue to follow patient for nursing and plan of care. Best time of day caller can be reached: any Patient advised that office/PCP has 24-48 business hours to return their call: No Normal [facility] 36on 01-17-2024 36 Message released to patient as written. YANNICK Deal CNP 01/16/2024 9:02 PM EDT Home sleep study demonstrates no sleep related disorder- no sleep apnea detected. Patient's further questions if applicable: Iesha, patient's caregiver voiced understanding, no further questions or concerns at this time. Were all questions from office addressed or relayed to the patient from encounter: Yes Normal [facility] Home sleep teston 01-16-2024 [facility] 36on 12-19-2023 36 Prescription Request : Last medication check: 10/24/23 Last physical exam: 04/18/23 Next scheduled appointment: 04/20/24 Last date of refill on this medication 06/07/23 [facility] CD3 (initial)on 12-19-2023 CD3 (initial) ------- Patient Age/Sex Location Account Attending Physician CHAN BURCIAGA/Andrez VALENCIA [id number] Michael Laguerre DO Specimen: [id number] Received: 12/20/23-1112 Status: HUSSEIN Pressley Num: [id number] Spec Type: IMMUNO Subm Dr: Michael Laguerre DO PHYSICIAN INSTITUTION [place] [address] SPECIMEN INFORMATION: Tissue Source: Terminal ileum biopsy Clinical Info: Encounter for screening for malignant neoplasm of colon Specimen Number: [id number] CPT code: 67522,07780y3 METHODOLOGY: Deparaffinized sections of prefer/formalin-fixed tissue or PAP/DQ stained slides are incubated with monoclonal/polyclonal antibodies/oligonucleotide probes. Localization is made via biotin free immunoperoxidase method. Appropriate controls are performed and reacted as expected. Results on target cell population are indicated in the following table: RESULTS: ANTIBODY / CLONE RESULT CD3 (PS1) positive CD5 (SP10) positive CD20 (L26) positive CD45 (RP2/18) positive CD79a (11E3) positive BCL-2 (bcl-2/100/D5) positive Ki-67 (30-9) positive,low These tests were developed and their performance characteristics determined by [facility]. They may not have been cleared or approved by the U.S. Food and Drug Administration. The FDA has determined that such clearance or approval is not necessary. The above immunohistochemical/dualISH markers are ordered and reviewed by the Pathologist. INTERPRETATION: Terminal ileum, biopsy: Polytypic lymphoid aggregates. AM/mr 12/23/2023 Signed (signature on file) Dr. Huy Pollock, DO 12/23/23 1536 Normal [facility] Comment on above: Performed By: #### P CD3 #### [facility] [address] [place], [address] Colonoscopy Reporton 024 Colonoscopy Report [facility] Medical Records Department [address] [place] [address] Colonoscopy Report MR#: [id number] Acct: [id number] Name: CHAN BURCIAGA Rep #: [id number] : 1980 43 From: Michael Laguerre DO PCP: Dr. Ramiro Rosa MD Status:REG [facility] Patient Name: Chan Burciaga Procedure Date: 12/19/2023 10:03 AM Date of : 1980 Age: 43 Procedure: Colonoscopy Indications: Screening for colorectal malignant neoplasm Providers: Michael Laguerre DO Medicines: Monitored Anesthesia Care Patient Profile: This is a 43 year old male. Refer to note in patient chart for documentation of history and physical. Last Colonoscopy: none. The patient's first colonoscopy is today. Complications: No immediate complications. Procedure: Pre-Anesthesia Assessment: - Prior to the procedure, a History and Physical was performed, and patient medications and allergies were reviewed. The patient is competent. The risks and benefits of the procedure and the sedation options and risks were discussed with the patient. All questions were answered and informed consent was obtained. Patient identification and proposed procedure were verified by the physician in the pre-procedure area. Mental Status Examination: alert and oriented. Airway Examination: normal oropharyngeal airway and neck mobility. Respiratory Examination: clear to auscultation. CV Examination: normal. Prophylactic Antibiotics: The patient does not require prophylactic antibiotics. Prior Anticoagulants: The patient has taken no anticoagulant or antiplatelet agents. ASA Grade Assessment: III - A patient with severe systemic disease. After reviewing the risks and benefits, the patient was deemed in satisfactory condition to undergo the procedure. The anesthesia plan was to use monitored anesthesia care (MAC). Immediately prior to administration of medications, the patient was re-assessed for adequacy to receive sedatives. The heart rate, respiratory rate, oxygen saturations, blood pressure, adequacy of pulmonary ventilation, and response to care were monitored throughout the procedure. The physical status of the patient was re-assessed after the procedure. After I obtained informed consent, the scope was passed under direct vision. Throughout the procedure, the patient's blood pressure, pulse, and oxygen saturations were monitored continuously. The pediatric colonoscope was introduced through the anus and advanced to the terminal ileum. The colonoscopy was performed without difficulty. The patient tolerated the procedure well. The quality of the bowel preparation was adequate. The terminal ileum, ileocecal valve, appendiceal orifice, and rectum were photographed. Scope In: 10:13:35 AM Scope Withdrawal Time 0 hours 7 minutes 36 seconds Scope Out: 10:25:21 AM Total Procedure Duration Time 0 hours 11 minutes 46 seconds Findings: The perianal and digital rectal examinations were normal. The colon (entire examined portion) appeared normal. Localized mild inflammation characterized by erythema and aphthous ulcerations was found in the terminal ileum. Biopsies were taken with a cold forceps for histology. Verification of patient identification for the specimen was done. Estimated blood loss was minimal. Impression: - The entire examined colon is normal. - Mild inflammation was found in the ileum secondary to ileitis. Biopsied. Recommendation: - Discharge patient to home. - Resume previous diet. - Continue present medications. - Repeat colonoscopy in 5 years for surveillance based on pathology results. Procedure Code(s): --- Professional --- 15433, Colonoscopy, flexible; with biopsy, single or multiple CPT copyright 2021 [employer]. All rights reserved. The codes documented in this report are preliminary and upon machine pack assembler review may be revised to meet current compliance requirements. Michael Laguerre DO 12/19/2023 10:32:20 AM This report has been signed electronically. Number of Addenda: 0 Note Initiated On: 12/19/2023 10:03 AM 12/19/23 1032 Date Michael Aden Signature: Date (if indicated) CC: Dr. Ramiro Rosa MD; Michael Laguerre DO Date Dictated: 12/19/23 1003 Date Transcribed: Felt Cutting Machine Operator: DARRELL Signed [facility] MR/POSTOP.ANEon 12-19-2023 MR/POSTOP.ANE [facility] Medical Records Department [address] [place] [address] Anesthesia Postop Eval I 12/19/23 1036 MR#: [id number] Acct: [id number] Name: CHAN UBRCIAGA Rep #: [id number] : 1980 43 From: Esvin Awan PCP: Dr. Ramiro Rosa MD Status:REG SDC Y Race: C Location: [place] [address] Anesthesia: Postop Eval I Current Vital Signs Temperature: 97.3 F Pulse Rate: 73 Blood Pressure: 84/39 Respiratory Rate: 16 Pulse Ox: 96 Oxygen Delivery Method: Room Air Assessment Airway patent: Yes Spontaneous unlabored respirations: Yes Mental status: Asleep nausea: No Vomiting: No Anesthesia Complication: No Fluid Hydration Crystalloid volume administer (ml): 600 Total IV fluid infused: 600 Progress Note Anesthesia document: Postop Eval 1 completed: Yes 12/19/23 1037 Date Esvin Regalado Signature: Date CC: Signed [facility] MR/UWRAMLZM4en 12-19-2023 MR/POSTOPAN2 [facility] Medical Records Department [address] [place] [address] Anesthesia Postop Eval II 12/19/23 1051 MR#: [id number] Acct: [id number] Name: MALKACHAN Rep #: [id number] : 1980 43 From: Harman Conrad MD PCP: Dr. Ramiro Rosa MD Status:REG SD Y Race: C Location: [place] [address] Anesthesia Postop Eval I Sum Postop Eval Completion status Anesthesia document: Postop Eval 1 completed: Yes Anesthesia Postop Eval I Summary Anesthesia Postop Eval I Summary: Anesthesia Postop Eval I: Assessment Summary Airway patent Yes 12/19/23 10:37 [email or web address] Spontaneous unlabored Yes 12/19/23 10:37 [email or web address] respirations Mental status Asleep 12/19/23 10:37 [email or web address] nausea No 12/19/23 10:37 [email or web address] Vomiting No 12/19/23 10:37 [email or web address] Anesthesia Postop Eval I: Fluid Summary Crystalloid volume administer 600 12/19/23 10:37 [email or web address] (ml) Colloids volume administered ( ml) Blood Product volume administered (ml) Total IV fluid infused 600 12/19/23 10:37 [email or web address] Anesthesia Postop Eval I: Summary Notes Anesthesia Complication No 12/19/23 10:37 [email or web address] Anesthesia Complication Comment: Post-operative progress note Anesthesia: Postop Eval II Evaluation Mental status: Awake Pain Level: 0 nausea: No Vomiting: No 12/19/23 1051 Date Harman Conrad MD Cosigner Signature: Date CC: Signed [facility] Surgery Specimen Level Zhou 12-19-2023 Surgery Specimen Level IV Patient Age/Sex Location Account Attending Physician MARTIR BURCIAGAN 43/M EN [id number] Michael Laguerre DO Specimen: [id number] Received: 12/19/23 Status: HUSSEIN Hartmanjoann Num: [id number] Spec Type: COLON BX Subm Dr: Michael Laguerre DO HEADER OPERATION: Colonoscopy with biopsy PRE-OP DIAGNOSIS: Encounter for screening for malignant neoplasm of colon TISSUE SUBMITTED: Terminal ileum biopsy MICROSCOPIC DIAGNOSIS Terminal ileum, biopsy: Focal acute ileitis with associated mucosal denudation. Polytypic lymphoid aggregates. See comment. AM. 12/20/2023 COMMENT A mucosal ulcer is suspected. Eosinophils are mildly increased in the lambda propria. The significance is unclear. Benign lymphoid aggregates are also present. Immunohistochemistry ([id number]) supports the above diagnosis and reveals polytypic lymphoid aggregates. Case has been reviewed in consultation with Dr. Johnson who concurs with the above diagnosis. IDC:BARNEY MICROSCOPIC DESCRIPTION Slides are reviewed. GROSS DESCRIPTION Received in fixative is one container labeled with the patient's name and designated Terminal ileum biopsy. The specimen consists of multiple irregular fragments of light sands soft tissue that in aggregate measure 1.2 x 0.3 x 0.1 cm. The specimen is totally submitted in one cassette. BARNEY. 12/19/2023 TC:2 CPT:29559 Patient Age/Sex Location Account Attending Physician CHAN BURCIAGA 43/M EN [id number] Michael Laguerre DO Signed (signature on file) Dr. Huy Pollock DO 12/23/23 1218 [facility] Comment on above: Performed By: #### P MARIS #### [facility] [place], [address] 36on 12-03-2023 36 Reviewed chart. Refi ll appropriate. RX sent. [facility] 36 Prescription Request : Last medication check: 10/24/23 Last physical exam: 04/18/23 Next scheduled appointment: 01/09/24 Last date of refill on this medication 06/26/23 [facility] 36on 11-21-2023 36 Notified on angela luo. [facility] 36 Yes, recertification would be appropriate [facility] 36 Name of caller: Brad Contact phone number: [phone] Relationship to Patient: [facility] Provider: Dr. Rosa Practice: [facility] Chief Complaint/Reason for Call: Brad is requesting confirmation, of medical recertification for [facility]. Please advise. Best time of day caller can be reached: any Patient advised that office/PCP has 24-48 business hours to return their call: Yes [facility] 36on 11-12-2023 36 Prescription Request : Last medication check: 10/24/23 Last physical exam: 04/18/23 Next scheduled appointment: 04/20/24 Last date of refill on this medication 06/04/23 [facility] Office Visiton 10-24-2023 Follow-up visit [id number] Cb Burciaga 1980 M Date Provider Department Center 10/24/2023 [id number] ROSA [facility] Family History Family Status - Relation Status Age at Mother Father Alive Level of Service:79119 [place] OFFICE/OUTPATIENT ESTABLISHED MOD MDM 30 MIN Reason for Visit and Comments: Hypertension [193895] Hyperlipidemia [182] Depression [32] Medication Check [[id number]] - 6 month Health Maintenance [872] - Hiv/hep c screening- refuse Hep b vaccine- advised to go to pharmacy if wanting this Tdap vaccine-advised to go to pharmacy if wanting this Colonoscopy- agree [facility] Progress Noteon 10-24-2023 Progress Note Stable, continue Cla ritin and Flonase. [facility] Progress Note Remission, continue Seroquel 150 mg nightly Normal [facility] Progress Note Controlled, continue atorvastatin 40 mg daily and fenofibrate 100 mg daily [facility] Progress Note Controlled, continue doxazosin 2 mg, clonidine 0.2 mg twice a day and losartan 100 mg daily Normal [facility] Progress Note Order home sleep study. Normal [facility] Progress Note Witnessed apneic epi sodes, will schedule patient for home sleep study. Normal [facility] Progress Note 10/24/2023 Chan Burciaga (: 1980) is a 43 y.o. male , Established patient, here for evaluation of the following chief complaint(s): Hypertension, Hyperlipidemia, Depression, Medication Check (6 month), and Health Maintenance (Hiv/hep c screening- refuse/Hep b vaccine- advised to go to pharmacy if wanting this /Tdap vaccine-advised to go to pharmacy if wanting this /Colonoscopy- agree) ASSESSMENT/PLAN: 1. Essential hypertension Assessment & Plan: Controlled, continue doxazosin 2 mg, clonidine 0.2 mg twice a day and losartan 100 mg daily 2. Hyperlipidemia LDL goal <100 Assessment & Plan: Controlled, continue atorvastatin 40 mg daily and fenofibrate 100 mg daily 3. Recurrent major depressive disorder, in full remission (HCC) Assessment & Plan: Remission, continue Seroquel 150 mg nightly 4. Seasonal allergic rhinitis due to pollen Assessment & Plan: Stable, continue Claritin and Flonase. 5. MILAGROS (obstructive sleep apnea) Assessment & Plan: Witnessed apneic episodes, will schedule patient for home sleep study. Orders: - Home sleep test 6. Loud snoring Assessment & Plan: Order home sleep study. Orders: - Home sleep test 7. Screening for colon cancer - External referral to Gastroenterology Follow up in about 6 months (around 04/24/2024) for annual. SUBJECTIVE/OBJECTIVE: [facility] -Chan comes in today for 6-month follow-up on his multiple health issues which include hypertension which is well-controlled today, hyperlipidemia, depression which is in full remission seasonal allergies and his department head that is with him said they were on a weekend trip and they were in the same hotel room when he was snoring very loudly and his snoring would slow down and he would gasp and start breathing again and snoring loudly again. Review of Systems Constitutional: Negative for activity change, appetite change, chills, fever and unexpected weight change. HENT: Negative for ear pain and sore throat. Respiratory: Negative for shortness of breath. Cardiovascular: Negative for chest pain and palpitations. Gastrointestinal: Negative for abdominal pain, blood in stool, constipation and diarrhea. Genitourinary: Negative for dysuria, frequency, hematuria and urgency. Musculoskeletal: Negative for arthralgias and back pain. Skin: Negative. Neurological: Negative for weakness and numbness. Psychiatric/Behavioral: Negative for dysphoric mood. The patient is not nervous/anxious. Vitals: 10/24/23 0929 BP: 115/76 Pulse: 66 SpO2: 95% Weight: 183 lb 9.6 oz (83.3 kg) Height: 5' 5.5 (1.664 m) Physical Exam Vitals and nursing note reviewed. Constitutional: General: He is not in acute distress. Appearance: Normal appearance. HENT: Right Ear: Tympanic membrane, ear canal and external ear normal. Left Ear: Tympanic membrane, ear canal and external ear normal. Mouth/Throat: Mouth: Mucous membranes are moist. Pharynx: Oropharynx is clear. Eyes: Extraocular Movements: Extraocular movements intact. Conjunctiva/sclera: Conjunctivae normal. Pupils: Pupils are equal, round, and reactive to light. Neck: Thyroid: No thyromegaly. Vascular: No carotid bruit. Cardiovascular: Rate and Rhythm: Normal rate and regular rhythm. Heart sounds: Normal heart sounds. No murmur heard. Pulmonary: Effort: Pulmonary effort is normal. Breath sounds: Normal breath sounds. Abdominal: General: Bowel sounds are normal. Palpations: Abdomen is soft. Tenderness: There is no abdominal tenderness. Musculoskeletal: General: Normal range of motion. Cervical back: Neck supple. Lymphadenopathy: Cervical: No cervical adenopathy. Skin: General: Skin is warm and dry. Neurological: General: No focal deficit present. Mental Status: He is alert and oriented to person, place, and time. Psychiatric: Mood and Affect: Mood normal. An electronic signature was used to authenticate this note. Ramiro Rosa MD 10/24/2023 11:50 AM [facility] Progress Note Patient verified by last name and date of . [facility] 36on 10-23-2023 36 Left a message to re turn call to [facility] for appointment with Dr. Rosa on 10/24/23. If the patient calls back during business hours, please transfer to our backline. Otherwise, Please arrive 15 minutes early with your insurance card and photo ID. Thank you! Normal [facility] PT D/C Summary (1)on 024 PT D/C Summary (1) [facility] [address] [place] [address] / REHABILITATION SERVICES DISCHARGE SUMMARY MR#: [id number] Acct: [id number] Name: CHAN BURCIAGA Rep #: [id number] : 1980 42 From: Milly Andrew PT, Cert. MDT Referring Dr.: Dr. Ramiro Rosa MD Status: R EG RCR Insurance: MEDICAID SELF PAY INSURANCE Discharge Summary D/C summary: It has been my pleasure to treat CHAN BURCIAGA referred by Dr. Ramiro Rosa MD, with the diagnosis of CHRONIC MIDLINE LBP WITHOUT SCIATICA for a total of 13 visit(s). Discharge Date: 07/16/23 Please see the following information for a summary of their discharge status. Subjective Subjective: PATIENT REPORTS HE IS DOING BETTER OVER-ALL AND FEELS HE CAN MANAGE WITHOUT PHYSICAL THERAPY NOW. STILL GETS MID BACK PAIN BUT IT COMES AND GOES. PROVOKED WITH LIFTING. DENIES LE SX'S. DOING HEP. Pain Back: Pain Intensity (Out of 10): 0 Overall Improvement % Improvement: 50 Objective Objective/Function: PATIENT WAS SEEN TODAY FOR RE-ASSESSMENT OF PROGRESS TOWARD THE SET PT GOALS AND THE NEED FOR FURTHER PHYSICAL THERAPY VS READINESS FOR DISCHARGE. PATIENT HAS MADE GOOD PROGRESS WITH PT, HAS TOLERATED PROGRESSIVE RESISTIVE EX WELL AND IS REPORTING TOLERATING SITTING, STANDING AND SLEEPING BETTER. HE IS APPROPRIATE FOR DISCHARGE TO [facility] AT THIS TIME. UPON EXAM TODAY: THIS PATIENT AMBULATES INDEP'LY INTO PT WITH HIS CAREGIVER. HE IS INDEP WITH GAIT AND TRANSFERS. HE IS ABLE TO FOLLOW COMMANDS FOR TESTING. LATOYA UE AND LE ROM AND STRENGTH IS GROSSLY WFL. Lumbar mvmt loss: flex - MIN ext - MOD R SG - MIN L SG - MIN PATIENT DENIES PAIN WITH LUMBAR ROM TESTING TODAY. THORACIC MVMT LOSS: R ROT - MIN L ROT - MIN PATIENT DENIES PAIN WITH THORACIC ROM TESTING TODAY. CERVICAL ROM TESTING - PATIENT DENIES PAIN WITH CERVICAL ROM TESTING ALL PLANES AND CERVICAL ROM IS GROSSLY WFL HOWEVER L ROT OBVIOUSLY MORE LIMITED THAN R. Postural Strength: FAIR PLUS Core strength: GOOD MINUS Goals Goal 1:: PATIENT WILL REPORT DECREASED BACK PAIN TO 0-3/10 X 1 WEEK TO EASE ADL'S. Goal Progress: Goal Met Goal 2:: PATIENT WILL HAVE INCREASED TRUNK ROM ALL PLANES WITHOUT C/O PAIN. Goal Progress: Goal Met Goal 3:: PATIENT WILL HAVE INCREASED TRUNK AND POSTURAL STRENGTH BY ONE GRADE Goal Progress: Goal Met Goal 4:: INDEP HEP Goal Progress: Goal Met Plan Plan: D/C D/C Information d/c sentence: If there are questions or concerns regarding this patient's physical therapy, please feel free to call me at [phone]. Thank you for the referral of this patient. Sincerely, Milly Andrew, PT, Cert MDT Balance/Gait/Functional tests Balance/Special Test Scores Oswestry Low Back Score: 8 30 Second Chair Rise Test Seconds: 16 Improvement % Improvement: 50 08/25/232114 CC: Dr. Ramiro Rosa MD MERY Signed [facility] Culture, urineOrdered By: St heri Miles on 05-29-2023 Bacteria identified Cx Nom (U) [place] odontolyticus [facility] - Chemistry and C hemistry - challengeon 05-29-2023 Bilirubin Ql (U) Small (1+) [facility] Glucose Ql (U) Negative [facility] Ketones Ql (U) Negative [facility] pH (U) 7.5 [pH] [facility] Specific gravity (U) [Rel density] 1.010 [facility] Urobilinogen (U) [Mass/Vol] 0.8977820 mg/dL [facility] - Hematology and Cell countson 05-29-2023 Hemoglobin Ql (U) Hemolyzed [facility] - Specimen inform ationon 05-29-2023 Clarity (U) Slightly Hazy [facility] Color (U) Dk Yellow [facility] - Urinalysison Nitrite Ql (U) Negative [facility] Protein Ql (U) Trace [facility] No Panel Informationon 05-29 Urine Leukocytes Positive [facility] Urine Non-Hemolyzed Blood Large [facility] XR Lumbar spine 4 Viewson Mild to moderate mul tilevel degenerative changes. Probable bilateral renal calculi measuring up to 1 cm. Further evaluation with renal ultrasound is recommended. Report Dictated on Electronically Signed By: Isidro Lara Electronically Signed Date/Time: 08/27/2022 4:16 PM EDT [facility] Patient Name: CHAN CONNELL : 1980 Exam Date/Time: 08/27/2022 10:41 Procedure: XR LUMBAR SPINE COMP INCL BEND VW Ordering Provider: ROSA DARRELL Reason For Exam: midline lowback pain LUMBAR SPINE: CLINICAL INDICATION: Back pain. TECHNIQUE: AP, lateral, bilateral oblique and coned-down L5-S1. COMPARISON: None. FINDINGS: Five lumbar vertebrae are present. No acute fracture or subluxation. Mild to moderate multilevel disc height loss and osteophyte formation. Lower lumbar facet arthropathy. There is no spondylolysis or spondylolisthesis. Multiple calcifications are seen overlying the expected locations of the bilateral kidneys measuring up to 1 cm. [facility] Isidro Lara MD - 08/27/2022 Patient Name: CHAN BURCIAGA : 1980 Exam Date/Time: 08/27/2022 10:41 Procedure: XR LUMBAR SPINE COMP INCL BEND VW Ordering Provider: ROSA DARRELL Reason For Exam: midline lowback pain LUMBAR SPINE: CLINICAL INDICATION: Back pain. TECHNIQUE: AP, lateral, bilateral oblique and coned-down L5-S1. COMPARISON: None. FINDINGS: Five lumbar vertebrae are present. No acute fracture or subluxation. Mild to moderate multilevel disc height loss and osteophyte formation. Lower lumbar facet arthropathy. There is no spondylolysis or spondylolisthesis. Multiple calcifications are seen overlying the expected locations of the bilateral kidneys measuring up to 1 cm. IMPRESSION: Mild to moderate multilevel degenerative changes. Probable bilateral renal calculi measuring up to 1 cm. Further evaluation with renal ultrasound is recommended. Report Dictated on Electronically Signed By: Isidro Lara Electronically Signed Date/Time: 08/27/2022 4:[address] [facility] 3sun Radiology Study observation (narrative) [employer] XR Lumbar spine 4 ViewsOrder ed By: Isidro Lara on 08-27-2022 [employer] Work Phone: Basophil percentageOrdered B y: Dr. Borden on 08-09-2022 Bilirubin [Mass/Vol] 0.40 mg/dL 0.20-1.00 [facility] Comment on above: For patients on eltr ombopag therapy, use of Dimension [place] TBIL is not recommended. Chloride [Moles/Vol] 105 mmol/L 98-107 [facility] Cholesterol [Mass/Vol] 151 mg/dL <200 [facility] Comment on above: <200 mg/dL Desirable 200-240 mg/dL Borderline >240 mg/dL High Risk Glucose [Mass/Vol] 91 mg/dL 74-106 [facility] Potassium [Moles/Vol] 3.9 mmol/L 3.5-5.1 [facility] Protein [Mass/Vol] 7.3 g/dL 6.4-8.2 [facility] Sodium [Moles/Vol] 136 mmol/L 136-145 [facility] Triglyceride [Mass/Vol] 142 mg/dL <199 [facility] Comment on above: The drugs N-Acetylcy steine and Metamizole may falsely depress this assay.Serum Triglycerides Reference Interval Normal <150 mg/dL Borderline high 150 - 199 mg/dL High 200 - 499 mg/dL Very High > or = 500 mg/dL Laboratory - Chemistry and C hemistry - challengeOrdered By: Dr. Borden on 08-09-2022 ALP [Catalytic activity/Vol] 56 U/L 45-117 [facility] ALT [Catalytic activity/Vol] 138 U/L 16-61 [facility] CO2 [Moles/Vol] 26.0 mmol/L 21.0-32.0 [facility] Globulin (S) [Mass/Vol] 3.2 g/dL 2.2-4.2 [facility] Urea nitrogen/Creatinine [Mass ratio] 11.7 mg/mg 10-20 [facility] No Panel InformationOrdered By: Dr. Borden on 08-09-2022 Estimated GFR (MDRD) Amer 93 mL/min >60 [facility] Comment on above: GFR Calc Estimated GFR (MDRD) Non-Af Amer 77 mL/min >60 [facility] Comment on above: Non- GFR Calc Serum or plasma albumin ashlee urement (mass/volume)Ordered By: Dr. Borden on 08-09-2022 Albumin [Mass/Vol] 4.1 g/dL 3.2-5.0 [facility] Serum or plasma albumin/glob ulin mass ratioOrdered By: Dr. Borden on 08-09-2022 Albumin/Globulin [Mass ratio] 1.3 {ratio} 0.9-2.4 [facility] Serum or plasma calcium ashlee urement (mass/volume)Ordered By: Dr. Borden on 08-09-2022 Calcium [Mass/Vol] 10.0 mg/dL 8.5-10.1 [facility] Serum or plasma cholesterol in HDL measurement (mass/volume)Ordered By: Dr. Borden on 08-09-2022 Cholesterol in HDL [Mass/Vol] 42 mg/dL >40 [facility] Comment on above: The drugs N-Acetylcy steine and Metamizole may falsely depress this assay. Reference Range HDL <40 mg/dL Low HDL Cholesterol HDL >or= 60 mg/dL High HDL Cholesterol Serum or plasma cholesterol in VLDL measurement (mass/volume)Ordered By: Dr. Borden on 08-09-2022 Cholesterol in VLDL [Mass/Vol] 28 mg/dL 5-40 [facility] Serum or plasma creatinine m easurement (mass/volume)Ordered By: Dr. Borden on 08-09-2022 Creatinine [Mass/Vol] 1.11 mg/dL 0.70-1.30 [facility] Comment on above: The validity of the calculated GFR & GFRAA in patients over 70 years has not been determined. Clinical correlation is essential. Serum or plasma low density lipoprotein (LDL) cholesterol measurement (mass/volume)Ordered By: Dr. Borden on 08-09-2022 Cholesterol in LDL [Mass/Vol] 81 mg/dL 0-130 [facility] Serum or plasma urea nitroge n measurement (mass/volume)Ordered By: Dr. Borden on 08-09-2022 Urea nitrogen [Mass/Vol] 13 mg/dL 7-18 [facility] Thin prep Papanicolaou smear with manual screeningOrdered By: Dr. Borden on 08-09-2022 Thin prep Papanicolaou smear with manual screening 63 U/L 15-37 [facility] Thin prep Papanicolaou smear with manual screening 5 5-15 [facility] Whole blood hemoglobin A1c/t otal hemoglobin ratio (mass fraction)Ordered By: Dr. Borden on 08-09-2022 HbA1c (Bld) [Mass fraction] 5.4 % 3.8-5.6 [facility] Comment on above: Normal < 5.7 % Predi abetic 5.7 - 6.4 % Diabetic >or= 6.5 % Please note range changes. Basophil percentageon 2021 Bilirubin [Mass/Vol] 0.30 mg/dL 0.20-1.00 [facility] Work Phone: Comment on above: For patients on eltr ombopag therapy, use of Dimension [place] TBIL is not recommended. Chloride [Moles/Vol] 108 mmol/L 98-107 [facility] Work Phone: Cholesterol [Mass/Vol] 199 mg/dL <200 [facility] Work Phone: Comment on above: <200 mg/dL Desirable 200-240 mg/dL Borderline >240 mg/dL High Risk Glucose [Mass/Vol] 113 mg/dL 74-106 [facility] Work Phone: Comment on above: Fasting Glucose resu lt from 100 to 125 mg/dL suggests IMPAIRED HOMEOSTASIS per A.D.A. criteria. Potassium [Moles/Vol] 3.7 mmol/L 3.5-5.1 [facility] Work Phone: Protein [Mass/Vol] 7.4 g/dL 6.4-8.2 [facility] Work Phone: Sodium [Moles/Vol] 140 mmol/L 136-145 [facility] Work Phone: Triglyceride [Mass/Vol] 239 mg/dL <199 [facility] Work Phone: Comment on above: The drugs N-Acetylcy steine and Metamizole may falsely depress this assay.Serum Triglycerides Reference Interval Normal <150 mg/dL Borderline high 150 - 199 mg/dL High 200 - 499 mg/dL Very High > or = 500 mg/dL WBC (Bld) [#/Vol] 9.8 10*3/uL 4.4-11.0 [facility] Work Phone: Blood erythrocytes count (nu mber/volume)on 02-23-2022 RBC (Bld) [#/Vol] 5.30 10*6/uL 4.6-6.2 [facility] Work Phone: Blood hemoglobin measurement (mass/volume)on 02-23-2022 Hemoglobin (Bld) [Mass/Vol] 15.4 g/dL 13.0-16.5 [facility] Work Phone: Blood platelet mean volumeon 02-23-2022 Platelet mean volume (Bld) [Entitic vol] 9.4 fL 6.2-12.0 [facility] Work Phone: Determination of erythrocyte mean corpuscular volume (MCV)on 02-23-2022 MCV (RBC) [Entitic vol] 86.4 fL 80-94 [facility] Work Phone: Hematocrit Auto (Bld) [Volum e fraction]on 02-23-2022 Hematocrit (Bld) [Volume fraction] 45.8 % 40-54 [facility] Work Phone: Laboratory - Chemistry and C hemistry - challengeon 02-23-2022 ALP [Catalytic activity/Vol] 72 U/L 45-117 [facility] Work Phone: ALT [Catalytic activity/Vol] 120 U/L 16-61 [facility] Work Phone: CO2 [Moles/Vol] 24.0 mmol/L 21.0-32.0 [facility] Work Phone: Globulin (S) [Mass/Vol] 3.4 g/dL 2.2-4.2 [facility] Work Phone: Urea nitrogen/Creatinine [Mass ratio] 9.9 mg/mg 10-20 [facility] Work Phone: Laboratory - Hematology and Cell countson 02-23-2022 Erythrocyte distribution width (RBC) [Entitic vol] 42.0 fL 35.1-43.9 [facility] Work Phone: Erythrocyte distribution width (RBC) [Ratio] 13.4 % 11.6-14.6 [facility] Work Phone: MCH (RBC) [Entitic mass] 29.1 pg 27.0-32.0 [facility] Work Phone: MCHC Auto (RBC) [Mass/Vol]on 02-23-2022 MCHC (RBC) [Mass/Vol] 33.6 g/dL 32-36 [facility] Work Phone: No Panel Informationon 02-23 Estimated GFR (MDRD) Amer 104 mL/min >60 [facility] Work Phone: Comment on above: GFR Calc Estimated GFR (MDRD) Non-Af Amer 86 mL/min >60 [facility] Work Phone: Comment on above: Non- GFR Calc Platelets bldon 02-23-2022 Platelets (Bld) [#/Vol] 382 10*3/uL 150-450 [facility] Work Phone: Serum or plasma albumin ashlee urement (mass/volume)on 02-23-2022 Albumin [Mass/Vol] 4.0 g/dL 3.2-5.0 [facility] Work Phone: Serum or plasma albumin/glob ulin mass ratioon 02-23-2022 Albumin/Globulin [Mass ratio] 1.2 {ratio} 0.9-2.4 [facility] Work Phone: Serum or plasma calcium ashlee urement (mass/volume)on 02-23-2022 Calcium [Mass/Vol] 9.5 mg/dL 8.5-10.1 [facility] Work Phone: Serum or plasma cholesterol in HDL measurement (mass/volume)on 02-23-2022 Cholesterol in HDL [Mass/Vol] 35 mg/dL >40 [facility] Work Phone: Comment on above: The drugs N-Acetylcy steine and Metamizole may falsely depress this assay. Reference Range HDL <40 mg/dL Low HDL Cholesterol HDL >or= 60 mg/dL High HDL Cholesterol Serum or plasma cholesterol in VLDL measurement (mass/volume)on 02-23-2022 Cholesterol in VLDL [Mass/Vol] 48 mg/dL 5-40 [facility] Work Phone: Serum or plasma creatinine m easurement (mass/volume)on 02-23-2022 Creatinine [Mass/Vol] 1.01 mg/dL 0.70-1.30 [facility] Work Phone: Comment on above: The validity of the calculated GFR & GFRAA in patients over 70 years has not been determined. Clinical correlation is essential. Serum or plasma low density lipoprotein (LDL) cholesterol measurement (mass/volume)on 02-23-2022 Cholesterol in LDL [Mass/Vol] 116 mg/dL 0-130 [facility] Work Phone: Serum or plasma oxcarbazepin e measurement (mass/volume)on 02-23-2022 OXcarbazepine [Mass/Vol] 22 ug/mL 10-35 [facility] Work Phone: Comment on above: This test was develo ped and its performance characteristicsdetermined by [facility]. It has not been cleared orapproved by the Food and Drug Administration. Detection Limit = 1Performed at: - [facility] [id number] [place], [place] [id number] Director: Andra Sawant MD, Phone: [phone] Serum or plasma urea nitroge n measurement (mass/volume)on 02-23-2022 Urea nitrogen [Mass/Vol] 10 mg/dL 7-18 [facility] Work Phone: Thin prep Papanicolaou smear with manual screeningon 02-23-2022 Thin prep Papanicolaou smear with manual screening 53 U/L 15-37 [facility] Work Phone: Thin prep Papanicolaou smear with manual screening 8 5-15 [facility] Work Phone: Whole blood hemoglobin A1c/t otal hemoglobin ratio (mass fraction)on 02-23-2022 HbA1c (Bld) [Mass fraction] 5.8 % 3.8-5.6 [facility] Work Phone: Comment on above: Normal < 5.7 % Predi abetic 5.7 - 6.4 % Diabetic >or= 6.5 % Please note range changes. No Panel Informationon 02-19 POC SARS CoV-2 Antigen Negative [facility] Work Phone: No Panel Informationon 02-09 POC SARS CoV-2 Antigen Positive [facility] Work Phone: Vital Signs Date Time Vital Sign Value Performing Clinician Facility 09-27-2024 09:54-0400 Body temperature 97.11 [degF] Sean Verduzco DIRECTOR OF PHYSIOTHERAPY SERVICES.CONTENT CHECKER Work Phone: [facility] 09-27-2024 09:54-0400 Body weight 86.2 kg Sean Verduzco APRN.CONTENT CHECKER Work Phone: [facility] 09-27-2024 09:54-0400 Diastolic blood pressure 66 mm[Hg] Sean Verduzco DIRECTOR OF PHYSIOTHERAPY SERVICES.CONTENT CHECKER Work Phone: [facility] 09-27-2024 09:54-0400 Heart rate 96 /min Sean Verduzco DIRECTOR OF PHYSIOTHERAPY SERVICES.CONTENT CHECKER Work Phone: [facility] 09-27-2024 09:54-0400 SaO2% (BldA) [Mass fraction] 96 % Sean Verduzco APRN.CONTENT CHECKER Work Phone: [facility] 09-27-2024 09:54-0400 Systolic blood pressure 110 mm[Hg] Sean Verduzco DIRECTOR OF PHYSIOTHERAPY SERVICES.CONTENT CHECKER Work Phone: [facility] 04-20-2024 11:04-0500 Body height 166.4 cm Ramiro Moe MD Work Phone: [employer] [facility] 04-20-2024 11:04-0500 Body mass index (BMI) [Ratio] 31.27 kg/m2 Ramiro Rosa MD Work Phone: [facility] 04-20-2024 11:04-0500 Body weight 86.55 kg Ramiro Rosa MD Work Phone: [facility] 04-20-2024 11:04-0500 Diastolic blood pressure 74 mm[Hg] Ramiro Rosa MD Work Phone: [facility] 04-20-2024 11:04-0500 Heart rate 73 /min Ramiro Rosa MD Work Phone: [facility] 04-20-2024 11:04-0500 SaO2% (BldA) [Mass fraction] 94 % Ramiro Rosa MD Work Phone: [facility] 04-20-2024 11:04-0500 Systolic blood pressure 117 mm[Hg] Ramiro Rosa MD Work Phone: [facility] 10-24-2023 09:29-0400 Body height 166.4 cm Ramiro Rosa MD Work Phone: [facility] 10-24-2023 09:29-0400 Body mass index (BMI) [Ratio] 30.09 kg/m2 Ramiro Rosa MD Work Phone: [facility] 10-24-2023 09:29-0400 Body weight 83.28 kg Ramiro Rosa MD Work Phone: [facility] 10-24-2023 09:29-0400 Diastolic blood pressure 76 mm[Hg] Ramiro Rosa MD Work Phone: [facility] 10-24-2023 09:29-0400 Heart rate 66 /min Ramiro Rosa MD Work Phone: [facility] 10-24-2023 09:29-0400 SaO2% (BldA) [Mass fraction] 95 % Ramiro Rosa MD Work Phone: [facility] 10-24-2023 09:29-0400 Systolic blood pressure 115 mm[Hg] Ramiro Rosa MD Work Phone: [facility] 09-27-2023 11:13-0400 Body height 166.4 cm Ramiro Rosa MD Work Phone: [facility] 09-27-2023 11:13-0400 Body mass index (BMI) [Ratio] 29.6 kg/m2 Ramiro Rosa MD Work Phone: [facility] 09-27-2023 11:13-0400 Body weight 81.92 kg Ramiro Rosa MD Work Phone: [facility] 09-27-2023 11:13-0400 Diastolic blood pressure 81 mm[Hg] Ramiro Rosa MD Work Phone: [facility] 09-27-2023 11:13-0400 Heart rate 82 /min Ramiro Rosa MD Work Phone: [facility] 09-27-2023 11:13-0400 SaO2% (BldA) [Mass fraction] 95 % Ramiro Rosa MD Work Phone: [facility] 09-27-2023 11:13-0400 Systolic blood pressure 122 mm[Hg] Ramiro Rosa MD Work Phone: [facility] 05-29-2023 10:14-0500 Body temperature 98.2 [degF] Dr. Ramiro Rosa Work Phone: [facility] 05-29-2023 10:14-0500 Diastolic blood pressure 74 mm[Hg] Dr. Ramiro Rosa Work Phone: [facility] 05-29-2023 10:14-0500 Heart rate 98 /min Dr. Ramiro Rosa Work Phone: [facility] 05-29-2023 10:14-0500 Respiratory rate 18 /min Dr. Ramiro Rosa Work Phone: [facility] 05-29-2023 10:14-0500 SaO2% (BldA) [Mass fraction] 97 % Dr. Ramiro Rosa Work Phone: [facility] 05-29-2023 10:14-0500 Systolic blood pressure 115 mm[Hg] Dr. Ramiro Rosa Work Phone: [facility] 04-18-2023 09:03-0500 Body height 166.4 cm Ramiro Rosa MD Work Phone: [facility] 04-18-2023 09:03-0500 Body mass index (BMI) [Ratio] 30.65 kg/m2 Ramiro Rosa MD Work Phone: [facility] 04-18-2023 09:03-0500 Body weight 84.82 kg Ramiro Rosa MD Work Phone: [facility] 04-18-2023 09:03-0500 Diastolic blood pressure 72 mm[Hg] Ramiro Rosa MD Work Phone: [facility] 04-18-2023 09:03-0500 Heart rate 79 /min Ramiro Rosa MD Work Phone: [facility] 04-18-2023 09:03-0500 SaO2% (BldA) [Mass fraction] 94 % Ramiro Rosa MD Work Phone: [facility] 04-18-2023 09:03-0500 Systolic blood pressure 108 mm[Hg] Ramiro Rosa MD Work Phone: [facility] 02-18-2023 14:49-0400 Body temperature 98.01 [degF] Yulia Lujan DIRECTOR OF PHYSIOTHERAPY SERVICES.CONTENT CHECKER Work Phone: [facility] 02-18-2023 14:49-0400 Body weight 84.19 kg Yulia Lujan DIRECTOR OF PHYSIOTHERAPY SERVICES.CONTENT CHECKER Work Phone: [facility] 02-18-2023 14:49-0400 Diastolic blood pressure 70 mm[Hg] Yulia Lujan DIRECTOR OF PHYSIOTHERAPY SERVICES.CONTENT CHECKER Work Phone: [facility] 02-18-2023 14:49-0400 Heart rate 98 /min Yulia Lujan DIRECTOR OF PHYSIOTHERAPY SERVICES.CONTENT CHECKER Work Phone: [facility] 02-18-2023 14:49-0400 Respiratory rate 16 /min Yulia Lujan DIRECTOR OF PHYSIOTHERAPY SERVICES.CONTENT CHECKER Work Phone: [facility] 02-18-2023 14:49-0400 SaO2% (BldA) [Mass fraction] 96 % Yulia Lujan DIRECTOR OF PHYSIOTHERAPY SERVICES.CONTENT CHECKER Work Phone: [facility] 02-18-2023 14:49-0400 Systolic blood pressure 124 mm[Hg] Yulia Lujan DIRECTOR OF PHYSIOTHERAPY SERVICES.CONTENT CHECKER Work Phone: [facility] 10-18-2022 14:23-0400 Body height 166.4 cm Ramiro Rosa MD Work Phone: [facility] 10-18-2022 14:23-0400 Body mass index (BMI) [Ratio] 30.15 kg/m2 Ramiro Rosa MD Work Phone: [facility] 10-18-2022 14:23-0400 Body weight 83.46 kg Ramiro Rosa MD Work Phone: [facility] 10-18-2022 14:23-0400 Diastolic blood pressure 84 mm[Hg] Ramiro Rosa MD Work Phone: [facility] 10-18-2022 14:23-0400 Heart rate 90 /min Ramiro Rosa MD Work Phone: [facility] 10-18-2022 14:23-0400 SaO2% (BldA) [Mass fraction] 95 % Ramiro Rosa MD Work Phone: [facility] 10-18-2022 14:23-0400 Systolic blood pressure 125 mm[Hg] Ramiro Rosa MD Work Phone: [facility] 08-27-2022 09:43-0400 Body height 166.4 cm Ramiro Rosa MD Work Phone: [facility] 08-27-2022 09:43-0400 Body mass index (BMI) [Ratio] 29.53 kg/m2 Ramiro Rosa MD Work Phone: [facility] 08-27-2022 09:43-0400 Body weight 81.74 kg Ramiro Rosa MD Work Phone: [facility] 08-27-2022 09:43-0400 Diastolic blood pressure 62 mm[Hg] Ramiro Rosa MD Work Phone: [facility] 08-27-2022 09:43-0400 Heart rate 65 /min Ramiro Rosa MD Work Phone: [facility] 08-27-2022 09:43-0400 Systolic blood pressure 110 mm[Hg] Ramiro Rosa MD Work Phone: [facility] 04-17-2022 11:29-0500 Diastolic blood pressure 95 mm[Hg] Dr. Ramiro Rosa Work Phone: [facility] Work Phone: 04-17-2022 11:29-0500 Heart rate 67 /min Dr. Ramiro Rosa Work Phone: [facility] Work Phone: 04-17-2022 11:29-0500 Respiratory rate 16 /min Dr. Ramiro Rosa Work Phone: [facility] Work Phone: 04-17-2022 11:29-0500 SaO2% (BldA) [Mass fraction] 97 % Dr. Ramiro Rosa Work Phone: [facility] Work Phone: 04-17-2022 11:29-0500 Systolic blood pressure 166 mm[Hg] Dr. Ramiro Rosa Work Phone: [facility] Work Phone: 04-17-2022 09:39-0500 Body height 165.[address] Ramiro Rosa Work Phone: [facility] Work Phone: 04-17-2022 09:39-0500 Body mass index (BMI) [Ratio] 30.9 kg/m2 Dr. Ramiro Rosa Work Phone: [facility] Work Phone: 04-17-2022 09:39-0500 Body temperature 97.3 [degF] Dr. Ramiro Rosa Work Phone: [facility] Work Phone: 04-17-2022 09:39-0500 Body weight 84.[address] Ramiro Rosa Work Phone: [facility] Work Phone: 02-19-2022 10:12-0400 Body temperature 97.2 [degF] Dr. Ramiro Rosa Work Phone: [facility] Work Phone: 02-19-2022 10:12-0400 Diastolic blood pressure 88 mm[Hg] Dr. Ramiro Rosa Work Phone: [facility] Work Phone: 02-19-2022 10:12-0400 Heart rate 81 /min Dr. Ramiro Rosa Work Phone: [facility] Work Phone: 02-19-2022 10:12-0400 Respiratory rate 16 /min Dr. Ramiro Rosa Work Phone: [facility] Work Phone: 02-19-2022 10:12-0400 SaO2% (BldA) [Mass fraction] 97 % Dr. Ramiro Rosa Work Phone: [facility] Work Phone: 02-19-2022 10:12-0400 Systolic blood pressure 128 mm[Hg] Dr. Ramiro Rosa Work Phone: [facility] Work Phone: 02-09-2022 09:43-0400 Body height 165.[address] Ramiro Rosa Work Phone: [facility] Work Phone: 02-09-2022 09:43-0400 Body mass index (BMI) [Ratio] 29.2 kg/m2 Dr. Ramiro Rosa Work Phone: [facility] Work Phone: 02-09-2022 09:43-0400 Body temperature 97.5 [degF] Dr. Ramiro Rosa Work Phone: [facility] Work Phone: 02-09-2022 09:43-0400 Body weight 79.[address] Ramiro Rosa Work Phone: [facility] Work Phone: 02-09-2022 09:43-0400 Diastolic blood pressure 82 mm[Hg] Dr. Ramiro Rosa Work Phone: [facility] Work Phone: 02-09-2022 09:43-0400 Heart rate 101 /min Dr. Ramiro Rosa Work Phone: [facility] Work Phone: 02-09-2022 09:43-0400 Respiratory rate 17 /min Dr. Ramiro Rosa Work Phone: [facility] Work Phone: 02-09-2022 09:43-0400 SaO2% (BldA) [Mass fraction] 97 % Dr. Ramiro Rosa Work Phone: [facility] Work Phone: 02-09-2022 09:43-0400 Systolic blood pressure 120 mm[Hg] Dr. Ramiro Rosa Work Phone: [facility] Work Phone: Encounters Encounter Date Encounter Type Care Provider Facility Start: 10-02-2024 End: 10-02-[address] [facility] Comment on above: Hyperlipidemia LDL g oal <100 Start: 09-28-2024 End: 09-29-2024 Follow-up encounter Nicole PISANO Work Phone: [facility] Comment on above: Results Start: 09-27-2024 End: 09-27-2024 Office outpatient visit 25 minutes Sean Verduzco DIRECTOR OF PHYSIOTHERAPY SERVICES.CONTENT CHECKER Work Phone: [facility] Comment on above: Acute cystitis with hematuria (Primary Dx) Start: 09-27-2024 End: 09-27-2024 ambulatory [facility] Facility:[facility] Start: 08-20-2024 End: 08-20-2024 Refill Virgie Cee DIRECTOR OF PHYSIOTHERAPY SERVICES - CONTENT CHECKER Work Phone: [facility] Comment on above: Hyperlipidemia LDL g oal <100 Start: 08-10-2024 End: 08-10-2024 Telephone encounter Ramiro Rosa MD Work Phone: [facility] Clinical Communication Start: 07-23-2024 End: 07-23-2024 Refill Ramiro Rosa MD Work Phone: [facility] Start: 07-14-2024 End: 07-14-2024 Refill Ramiro Rosa MD Work Phone: [facility] Start: 06-26-2024 End: 06-26-[address] Ramiro Rosa MD Work Phone: [facility] Work Phone: Start: 06-26-2024 End: 06-26-[address] Dajuan Morrison MD -Laboratory, Specimen Work Phone: Start: 06-26-2024 End: 06-26-2024 ambulatory Ramiro Rosa Facility:[facility] Start: 06-23-2024 End: 06-23-2024 Refill Ramiro Rosa MD Work Phone: [facility] Start: 05-04-2024 End: 05-04-2024 Refill Virgie Bridenthal DIRECTOR OF PHYSIOTHERAPY SERVICES - CONTENT CHECKER [facility] Phone[facility] Start: 05-01-2024 End: 05-01-2024 Refill Virgie Bridenthal DIRECTOR OF PHYSIOTHERAPY SERVICES - CONTENT CHECKER Work Phone: [facility] Comment on above: Hyperlipidemia LDL g oal <100 Start: 04-20-2024 End: 04-20-2024 ambulatory RAMIRO ROSA [facility] Start: 04-20-2024 End: 04-20-2024 Encounter for general adult medical examination without abnormal findings RAMIRO MOE [facility] Start: 04-20-2024 End: 04-20-2024 Patient encounter procedure Ramiro Rosa MD Work Phone: [facility] Work Phone: Start: 04-20-2024 End: 04-20-2024 Periodic preventive med est patient 40-64yrs Ramiro Rosa MD Work Phone: [facility] Comment on above: Annual physical exam (Primary Dx); Essential hypertension; Hyperlipidemia LDL goal <100; Intellectual disability; Recurrent major depressive disorder, in full remission (HCC); Seasonal allergic rhinitis due to pollen; Loud snoring; Screening for diabetes mellitus; Screening for prostate cancer Start: 04-03-2024 End: 04-06-2024 Refill Ramiro Rosa MD Work Phone: [facility] Start: 02-14-2024 End: 02-14-2024 ambulatory Ramiro Rosa Facility:[facility] Start: 02-03-2024 End: 02-03-2024 Refill Virgie Bridenthal DIRECTOR OF PHYSIOTHERAPY SERVICES - CONTENT CHECKER Work Phone: [facility] Comment on above: Seasonal allergic rh initis due to pollen Start: 01-17-2024 End: 01-17-2024 Telephone encounter Coco Cheema DIRECTOR OF PHYSIOTHERAPY SERVICES - CONTENT CHECKER Work Phone: [facility] Comment on above: Results; Release of Information Start: 01-09-2024 End: 01-09-2024 ambulatory Ramiro Rosa MD Work Phone: [facility] Comment on above: MILAGROS (obstructive sle ep apnea); Loud snoring Start: 12-19-2023 ambulatory Ramiro Rosa Facility :[facility] Start: 12-19-2023 End: 12-19-2023 ambulatory Ramiro Rosa Facility:[facility] Start: 12-18-2023 End: 12-19-2023 Refill Ramiro Rosa MD Work Phone: [facility] Start: 12-03-2023 End: 12-03-2023 Refill Puja D'Cecily [facility] Comment on above: Hyperlipidemia LDL g oal <100 Start: 11-12-2023 End: 11-12-2023 Refill Ramiro Rosa MD Work Phone: [facility] Start: 11-05-2023 ambulatory Ramiro Rosa Facility :[facility] Start: 10-24-2023 End: 10-24-2023 Office outpatient visit 25 minutes Ramiro Rosa MD Work Phone: [facility] Comment on above: Essential hypertensi on (Primary Dx); Hyperlipidemia LDL goal <100; Recurrent major depressive disorder, in full remission (HCC); Seasonal allergic rhinitis due to pollen; MILAGROS (obstructive sleep apnea); Loud snoring; Screening for colon cancer Start: 10-24-2023 End: 10-24-2023 ambulatory RAMIRO ROSA [facility] Start: 09-27-2023 End: 09-27-2023 Office outpatient visit 15 minutes Ramiro Rosa MD Work Phone: [facility] Comment on above: Chronic midline low back pain without sciatica (Primary Dx) Start: 07-16-2023 End: 07-16-[address] Ramiro Rosa Work Phone: [facility] Work Phone: Start: 07-16-2023 End: 07-16-[address] Ramiro Rosa Work Phone: [facility]-Physical Therapy Work Phone: Start: 07-10-2023 Refill Ramiro Rosa MD Work Phone: [facility] Start: 07-02-2023 Refill Puja D'Cecily [facility] Comment on above: Essential hypertensi on (Primary Dx); Hyperlipidemia LDL goal <100 Start: 06-07-2023 Refill Ramiro Rosa MD Work Phone: [facility] Start: 05-29-2023 End: 05-29-[address] Ramiro Rosa Work Phone: [facility] Work Phone: Start: 05-29-2023 End: 05-29-[address] Ramiro Rosa Work Phone: [facility]-Laboratory, Specimen Work Phone: Start: 05-29-2023 End: 05-29-[address] Ramiro Rosa Work Phone: [facility] Work Phone: Start: 04-24-2023 Refill Ramiro Rosa MD Work Phone: [facility] Start: 04-18-2023 End: 04-18-2023 Patient encounter procedure Ramiro Rosa MD Work Phone: [facility] Work Phone: Start: 04-18-2023 End: 04-18-2023 Periodic preventive med est patient 40-64yrs Ramiro Rosa MD Work Phone: [facility] Comment on above: Annual physical exam (Primary Dx); Essential hypertension; Seasonal allergic rhinitis due to pollen; Recurrent major depressive disorder, in full remission (HCC); Hyperlipidemia LDL goal <100; Intellectual disability; Screening for diabetes mellitus; Screening for prostate cancer; Chronic midline low back pain without sciatica Start: 03-29-2023 Refill Ramiro Rosa MD Work Phone: [facility] Comment on above: Seasonal allergic rh initis due to pollen Start: 02-18-2023 ambulatory [facility] Start: 02-18-2023 End: 02-18-2023 Patient encounter procedure Milly Miller RN [facility] Clinical Communication Comment on above: Toenail torn away (P rimary Dx) Start: 01-08-2023 Refill Ramiro Rosa MD Work Phone: [facility] Start: 12-07-2022 Refill Ramiro Rosa MD Work Phone: [facility] Comment on above: Seasonal allergic rh initis due to pollen Start: 10-31-2022 Refill Ramiro Rosa MD Work Phone: [facility] Start: 10-19-2022 Telephone encounter Ramiro Vasquez MD Work Phone: [facility] Comment on above: Medication Problem ( nabumetone (Relafen) 500 MG tablet //) Start: 10-18-2022 End: 10-18-2022 Office outpatient visit 25 minutes Ramiro Rosa MD Work Phone: [facility] Comment on above: Essential hypertensi on (Primary Dx); Hyperlipidemia LDL goal <100; Recurrent major depressive disorder, in full remission (HCC); Acute midline low back pain without sciatica Start: 08-27-2022 End: 08-27-2022 Subsequent hospital visit by physician Ramiro Rosa MD Work Phone: [facility] Radiology Comment on above: Acute midline low ba ck pain without sciatica Start: 08-27-2022 End: 08-27-2022 Office outpatient visit 15 minutes Ramiro Rosa MD Work Phone: [facility] Comment on above: Acute midline low ba ck pain without sciatica (Primary Dx) Start: 08-09-2022 End: 08-09-2022 ambulatory [facility] Work Phone: Start: 08-09-2022 End: 08-09-2022 Patient encounter procedure [facility]Labor[facility] Start: 08-07-2022 Refill Ramiro Rosa MD Work Phone: [facility] Start: 07-06-2022 Refill Ramiro Rosa MD Work Phone: [facility] Start: 05-04-2022 Telephone encounter Ramiro Vasquez MD Work Phone: [facility] Comment on above: other (BP readings f or one week patient may need more meds) Start: 04-17-2022 End: 04-17-2022 Emergency department patient visit Dr. Ramiro Rosa Work Phone: [facility]-Emergency Department Start: 02-23-2022 End: 02-23-[address] Ramiro Rosa Work Phone: [facility] Work Phone: Start: 02-23-2022 End: 02-23-[address] Ramiro Rosa Work Phone: [facility]-Laboratory Start: 02-19-2022 End: 02-19-[address] Ramiro Rosa Work Phone: [facility] Start: 02-09-2022 End: 02-09-[address] Ramiro Rosa Work Phone: [facility] Procedures Date Procedure Procedure Detail Performing Clinician Start: 09-27-2024 Urnls dip stick/tabl et rgnt auto w/o microscopy [facility] Provider Start: 04-20-2024 Lipid 1995 panel - S joe or Plasma Virgie Coleman DIRECTOR OF PHYSIOTHERAPY SERVICES - CONTENT CHECKER Work Phone: Start: 01-16-2024 HOME SLEEP TEST Ramiro Rosa MD Work Phone: Start: 12-19-2023 Colonoscopy Ramiro rose MD Work Phone: Start: 05-29-[address] Paulo Rosa Work Phone: Start: 04-18-2023 Lipid 1996 panel - S joe or Plasma Ramiro Rosa MD Work Phone: Start: 08-27-2022 Radex spine lumbosac ral minimum 4 views Ramiro Rosa MD Work Phone: Start: 08-09-2022 Lipid 1995 panel - S joe or Plasma Ramiro Rosa MD Work Phone: Start: 04-17-2022 CT of head without contrast Dr. Ramiro Rosa Work Phone: Start: 02-23-2022 Lipid 1996 panel - S joe or Plasma Ramiro Rosa MD Work Phone: Start: 06-15-2021 Lipid 1995 panel - S joe or Plasma Yulia Tai DIRECTOR OF PHYSIOTHERAPY SERVICES.CONTENT CHECKER Work Phone: Plan of Treatment Date Care Activity Detail Author Start: 2053 RSV Immunization for Adults (1 - 1-dose 75+ series) RSV Immunization for Adults (1 - 1-dose 75+ series) [facility] Start: 2038 RSV Immunization age d 60 or older (1 - 1-dose 60+ series) RSV Immunization aged 60 or older (1 - 1-dose 60+ series) [facility] Start: 12-18-2033 Screening for malign ant neoplasm of colon [facility] Start: 04-20-2029 Lipid panel [facility] Start: 2028 Zoster Vaccines (1 o f 2) Zoster Vaccines (1 of 2) [facility] Start: 04-18-2028 Lipid panel Lipid Panel [facility] Start: 08-10-2027 Lipid panel Lipid Panel [facility] Start: 04-20-2027 Diabetes Screening Diabetes Screenin g [facility] Start: 02-23-2027 Lipid panel Lipid Panel [facility] Start: 06-15-2026 Lipid 1996 panel - Serum or Plasma Lipid Screening [facility] Start: 08-09-2025 Diabetes mellitus screening Diabetes Screening [facility] Start: 02-23-2025 Diabetes mellitus screening Diabetes Screening [facility] Start: 10-23-2024 DTaP/Tdap/Td Vaccine s (1 - Tdap) DTaP/Tdap/Td Vaccines (1 - Tdap) [facility] Comment on above: Postponed from 10/16 (Patient Refused) Start: 10-23-2024 Hepatitis B Vaccines (1 of 3 - 19+ 3-dose series) Hepatitis B Vaccines (1 of 3 - 19+ 3-dose series) [facility] Comment on above: Postponed from 10/16 (Patient Refused) Start: 10-23-2024 Hepatitis C screening Hepatitis C Sc reening [facility] Comment on above: Postponed from 10/16 (Patient Refused) Start: 10-23-2024 HIV screening HIV Screening [facility] Comment on above: Postponed from 10/16 (Patient Refused) Start: 10-20-2024 End: 10-20-2024 Patient encounter procedure 10/20/2024 11:30 AM EDT Office Visit [address] [place] [address] Ramiro Rosa MD [address] [place], [place] [address] [address] [facility] Start: 10-19-2024 Depression Monitoring Depression Mon [facility] Start: 10-15-2024 End: 10-15-2024 Patient encounter procedure 10/15/2024 11:45 AM EDT Office Visit [address] [place] [address] Ramiro Rosa MD [address] [place], [place] [address] [address] [facility] Start: 09-16-2024 Diabetes mellitus screening Diabetes Screening [facility] Start: 04-24-2024 Depression Monitoring [facility] Start: 04-20-2024 End: 04-20-2025 Comprehensive metabolic 1998 panel - Serum or Plasma Comprehensive metabolic panel Lab Routine Screening for diabetes mellitus Expected: 04/20/2024 (Approximate), Expires: 04/20/2025 [facility] Comment on above: Expected: 04/20/2024 (Approximate), Expires: 04/20/2025 Start: 04-20-2024 End: 04-20-2025 Lipid 1996 panel - Serum or Plasma Lipid panel Lab Routine Hyperlipidemia LDL goal <100 Expected: 04/20/2024 (Approximate), Expires: 04/20/2025 [facility] Work Phone: Comment on above: Expected: 04/20/2024 (Approximate), Expires: 04/20/2025 Start: 04-20-2024 End: 04-20-2025 PSA Total (Screening) PSA Total (Screening) Lab Routine Screening for prostate cancer Expected: 04/20/2024 (Approximate), Expires: 04/20/2025 [facility] Comment on above: Expected: 04/20/2024 (Approximate), Expires: 04/20/2025 Start: 04-20-2024 End: 04-20-2024 Patient encounter procedure [facility] Start: 01-09-2024 End: 01-09-2024 Clinical Support 01/09/2024 9:00 AM EDT Clinical Support [facility] [address] [place] [phone] Ramiro Rosa MD [address] [place], [place] [address] [facility] Start: 01-05-2024 COVID-19 Vaccine () COVID-19 Vaccine () [facility] Start: 01-05-2024 COVID-19 Vaccine () COVID-19 Vaccine () [facility] Start: 01-05-2024 Influenza vaccination Influenza Vacc ine (#1) [facility] Start: 10-24-2023 End: 10-23-2024 Home sleep test Home sleep test Sleep Center Routine MILAGROS (obstructive sleep apnea) Loud snoring Expected: 10/24/2023 (Approximate), Expires: 10/23/2024 [facility] [employer] Work Phone: Comment on above: Expected: 10/24/2023 (Approximate), Expires: 10/23/2024 Start: 10-24-2023 End: 10-24-2023 Patient encounter procedure 10/24/2023 9:30 AM EDT Office Visit [facility] [address] [place] [address] Ramiro Rosa MD [address] [place] [id number] [facility] Start: 10-18-2023 Depression Monitoring Depression Mon itoring [facility] Start: 10-18-2023 Depresssion Monitoring Depresssion M onitoring [facility] Start: 10-17-2023 Screening for malign ant neoplasm of colon [facility] Start: 08-10-2023 Diabetes mellitus screening Diabetes Screening [facility] Start: 05-29-2023 Urine culture Urine Culture [facility] Start: 05-29-2023 [facility] Start: 04-18-2023 End: 04-18-2024 Comprehensive metabolic 1998 panel - Serum or Plasma Comprehensive metabolic panel Lab Routine Screening for diabetes mellitus Expected: 04/18/2023 (Approximate), Expires: 04/18/2024 [facility] [employer] Work Phone: Comment on above: Expected: 04/18/2023 (Approximate), Expires: 04/18/2024 Start: 04-18-2023 End: 04-18-2024 Lipid 1996 panel - Serum or Plasma Lipid panel Lab Routine Hyperlipidemia LDL goal <100 Expected: 04/18/2023 (Approximate), Expires: 04/18/2024 [facility] Comment on above: Expected: 04/18/2023 (Approximate), Expires: 04/18/2024 Start: 04-18-2023 End: 04-18-2024 PSA Total (Screening) PSA Total (Screening) Lab Routine Screening for prostate cancer Expected: 04/18/2023 (Approximate), Expires: 04/18/2024 [facility] Comment on above: Expected: 04/18/2023 (Approximate), Expires: 04/18/2024 Start: 04-18-2023 End: 04-18-2023 Patient encounter procedure 04/18/2023 9:30 AM EST Office Visit [facility] [address] [place] [address] [place] [address] Ramiro Rosa MD [address] [place], [place] [address] [address] [facility] Start: 01-04-2023 Covid-19 Vaccine ( season) Covid-19 Vaccine ( season) [facility] Start: 01-04-2023 Influenza vaccination Influenza Vacc ine (#1) [facility] Start: 10-18-2022 End: 10-18-2022 Patient encounter procedure 10/18/2022 Office Visit [facility] Ramiro Rosa MD [address] [place] [id number] [facility] Start: 05-06-2022 Depression Assessment Depression Ass essment [facility] Start: 06-05-2021 COVID-19 Vaccine (4 - Booster for Moderna series) COVID-19 Vaccine (4 - Booster for Moderna series) [facility] Start: 06-05-2021 COVID-19 Vaccine (4 - Moderna series) COVID-19 Vaccine (4 - Moderna series) [facility] Start: 1997 DTaP/Tdap/Td Vaccine s (1 - Tdap) DTaP/Tdap/Td Vaccines (1 - Tdap) [facility] Start: 1997 Hepatitis B Vaccine (1 of 3 - 19+ 3-dose series) Hepatitis B Vaccine (1 of 3 - 19+ 3-dose series) [facility] Start: 1997 Hepatitis B Vaccines (1 of 3 - 19+ 3-dose series) Hepatitis B Vaccines (1 of 3 - 19+ 3-dose series) [facility] Start: 1997 Urine microalbumin profile DTaP,Tdap,Td Vaccine (1 - Tdap) [facility] Start: 1996 Anxiety Screening Anxiety Screening [facility] Start: 1996 Depression Screening Depression Scre [facility] Start: 1996 Hepatitis C screening Hepatitis C [facility] Start: 1996 Hepatitis C Screening Hepatitis C [facility] Start: 1996 HIV Screening HIV Screening [facility] Start: 1996 HIV screening HIV Screening [facility] Start: 1990 [facility]: [facility] Hepatitis B Vaccine (1 of 3 - 3-dose series) Hepatitis B Vaccine (1 of 3 - 3-dose series) [facility] Start: 1978 Hepatitis B Vaccines (1 of 3 - 3-dose series) Hepatitis B Vaccines (1 of 3 - 3-dose series) [facility] Start: 1978 HIV screening HIV Screening [facility] Start: 1978 Screening for malign ant neoplasm of colon [facility] Bacteria identified in Urine by Culture BACTERIAL CULTURE, URINE Microbiology Routine Acute cystitis with hematuria Ordered: 09/27/2024 [facility] Work Phone: Comment on above: Ordered: 09/27/2024 OUTSIDE PROCEDURE SCAN OUTSIDE P ROCEDURE SCAN Procedures Ordered: 08/27/2022 [facility] Comment on above: Ordered: 08/27/2022 Patient Education ED Hypertensio n, To Be Confirmed [facility] Work Phone: Patient referral [facility] Work Phone: UA DIP, URINE (POC) UA DIP, URIN E (POC) Lab Routine Acute cystitis with hematuria Ordered: 09/27/2024 [facility] Comment on above: Ordered: 09/27/2024 Immunizations Immunization Date Immunization Notes Care Provider Kobi richards 03-26-2024 Seasonal, trivalent, recombinant, injectable influenza vaccine, preservative free Ramiro Rosa MD Work Phone: [facility] 02-07-2023 influenza, injectabl e, quadrivalent, contains preservative Milly Miller RN [facility] 02-07-2023 Seasonal, quadrivale nt, recombinant, injectable influenza vaccine, preservative free Puja D'Cecily [facility] 02-07-2023 influenza virus vacc ine, unspecified formulation Ramiro Rosa MD Work Phone: [facility] 02-23-2022 Influenza, injectabl e, Madin Beaumont Canine Kidney, preservative free, quadrivalent Ramiro Rosa MD Work Phone: [facility] 02-23-2022 influenza virus vacc ine, unspecified formulation Ramiro Rosa MD Work Phone: [facility] 04-10-2021 Moderna SARS-CoV-2 Vaccination Ramiro Rosa MD Work Phone: [facility] 01-25-2021 influenza, injectabl e, quadrivalent, preservative free Ramiro Rosa MD Work Phone: [facility] 03-24-2020 Seasonal, quadrivale nt, recombinant, injectable influenza vaccine, preservative free Ramiro Rosa MD Work Phone: [facility] 02-11-2019 Influenza, injectabl e, Madin Marcela Canine Kidney, preservative free, quadrivalent Ramiro Rosa MD Work Phone: [facility] 04-11-2018 influenza, seasonal, injectable Ramiro Rosa MD Work Phone: [facility] 04-10-2017 influenza, injectabl e, quadrivalent, contains preservative Ramiro Rosa MD Work Phone: [facility] 03-28-2016 influenza, injectabl e, quadrivalent, contains preservative Ramiro Rosa MD Work Phone: [facility] 03-08-2014 influenza, seasonal, injectable Ramiro Rosa MD Work Phone: [facility] 09-14-2013 measles, mumps and r ubella virus vaccine Ramiro Rosa MD Work Phone: [facility] 02-25-2009 influenza virus vacc ine, whole virus Ramiro Rosa MD Work Phone: [facility] Payers Date Payer Category Payer Self-pay [id number] 2017 Medicaid [id number] 2009 Medicaid [id number] 78 [id number] Unknown [id number] Unknown [id number] [id number] Unknown [id number] [id number] Unknown [id number] Unknown [id number] Unknown [id number] [id number] Social History Date Type Detail Facility Start: 02-19-2022 End: 05-29-2023 Tobacco smoking status AKIS Unknown if ever smoked [facility] Start: 03-02-2021 None [facility] Start: 03-02-2021 Non-smoker [facility] Start: 1980 Sex Assigned At Male [facility] Start: 12-16-2023 [facility] Start: 04-19-2022 End: 04-20-2024 Alcohol intake Current non-drinker of alcohol (finding) [facility] Start: 1980 Sex Assigned At Not on file [facility] Start: 04-09-2022 End: 08-27-2022 Exposure to SARS-CoV-2 (event) Not sure [facility] Start: 08-27-2022 End: 10-24-2023 History of Social function [facility] Start: 08-27-2022 End: 10-24-2023 Tobacco use panel [facility] Start: 10-08-2022 End: 10-18-2022 Exposure to SARS-CoV-2 (event) Yes [facility] National Score (1-10 0), lower number is lower risk Not on file [facility] (I/We) worried [facility] (my/our) food would run out before (I/we) got money to buy more. Never true [facility] In the past 12 month s, was there a time when you were not able to pay the mortgage or rent on time? No [facility] Are you now , , , , never or living with a partner? Never [facility] Do you feel stress - tense, restless, nervous, or anxious, or unable to sleep at night because your mind is troubled all the time - these days [OSQ] Only a little [facility] Start: 12-04-2021 End: 07-09-2024 Sex Male (finding) [facility] How often do you nee d to have someone help you when you read instructions, pamphlets, or other written material from your doctor or pharmacy [SILS] Always [facility] Mental Status Date Assessment Result Facility 04-17-2022 Cognitive function Level Of Cons ciousness Awake;Alert;Appropriate;Follow s Commands [facility] Work Phone: Clinical Notes 05-04-2022 to 10-02-2024 Telephone Encounter - YANNICK Jones CNP - 10/02/2024 12:47 PM EDTTelephone Encounter - YANNICK Jones CNP - 10/02/2024 12:47 PM ALVAREZ Lynch 04/20/2024 11:00 AM EST Note Date & Type Note Facility 10-02-2024 Telephone encounter Note Reviewed chart. Refill appropriate. RX sent. [facility] 10-02-2024 Miscellaneous Notes Reviewed chart. Refill appropriate. RX sent. Pharmacy sent over fax requesting refills for a 31 day supply with 11 refills OR 93 day supply with 3 refills. I pended a 93 day supply with 1 refill. Next appt: 10/15/2024 documented in this encounter [facility] 10-02-2024 Telephone encounter Note Pharmacy sent over fax requesting refills for a 31 day supply with 11 refills OR 93 day supply with 3 refills. I pended a 93 day supply with 1 refill. Next appt: 10/15/2024 [facility] 09-29-2024 Telephone encounter Note Tena nurse with [facility] calling back-given provider's recommendations and verbalizes understanding. [facility] 09-29-2024 Miscellaneous Notes Tena nurse with [facility] calling back-given provider's recommendations and verbalizes understanding. Left message for patient to return call for results.Sabrina Dang LPN Please let patient know urine culture revealed no UTI. Please follow-up with PCP to ensure resolution of blood in the urine documented in this encounter [facility] 09-28-2024 Telephone encounter Note Left message for patient to return call for results.Sabrina Dang LPN [facility] 09-28-2024 Telephone encounter Note Please let patient know urine culture revealed no UTI. Please follow-up with PCP to ensure resolution of blood in the urine [facility] 09-27-2024 Note HNO ID: [id number] Author: SEAN VERDUZCO APRN.CONTENT CHECKER Service: ? Author Type: Nurse Practitioner Type: Progress Notes Filed: 09/27/2024 10:14 Note Text: [facility] Subjective Chan Bucriaga is a 43 year old male. Patient presents with: Hematuria HPI Nontoxic-appearing 43-year-old male presents urgent care accompanied by caregiver. Chief complaint hematuria. Duration of symptoms 2 days. Associated symptoms dysuria and bloody urine. Pain after urination only for short amount of time. History of UTIs and kidney stones. States this feels a UTI. It is not as painful as a kidney stone. Is able to pass urine without difficulties. No fevers vomiting abdominal pain back pain flank pain testicular pain penile drainage or rashes. States overall feels well. Past medical history prescription medications allergies reviewed. Review of Systems Constitutional: Negative for appetite change, chills, diaphoresis, fatigue and fever. Gastrointestinal: Negative for abdominal pain, diarrhea, nausea and vomiting. Genitourinary: Positive for dysuria and hematuria. Negative for decreased urine volume, enuresis, flank pain, genital sores, penile discharge, penile pain, penile swelling, scrotal swelling, testicular pain and urgency. Objective BP 110/66 Pulse 96 Temp 36.2 ?C (97.1 ?F) Wt 86.2 kg (190 lb 0.6 oz) SpO2 96% Physical Exam Constitutional: Appearance: Normal appearance. He is normal weight. HENT: Head: Normocephalic. Cardiovascular: Rate and Rhythm: Normal rate and regular rhythm. Pulmonary: Effort: Pulmonary effort is normal. Breath sounds: Normal breath sounds. Abdominal: Tenderness: There is no abdominal tenderness. There is no right CVA tenderness, left CVA tenderness or guarding. Musculoskeletal: Cervical back: Normal range of motion. Neurological: Mental Status: He is alert. {ASSESSMENT/PLAN: 1. Acute cystitis with hematuria - ICD9: 595.0, ICD10: N30.01 - BACTERIAL CULTURE, URINE - UA DIP, URINE (POC) Differentials include renal calculi versus acute cystitis versus pyelonephritis. Treat as acute cystitis. placed on Keflex. Urine dip positive for blood and protein. Red flags prompt ER evaluation discussed. Follow-up with PCP 2 to 3 days. Patient was educated on supportive therapies. Patient was instructed to immediately proceed to emergency room for any new, worsening, or symptoms lasting longer than anticipated. The patient's clinical presentation is otherwise unremarkable at this time. Based on exam and clinical finding, the patient is stable for discharge. Plan of care was discussed with patient. Patient verbalizes understanding and agrees to plan of care. This note was generated using [facility] software. It may contain errors in wording, punctuation, or spelling. Sean Verduzco APRN.CONTENT CHECKER History and Record Review Clinical information obtained from an independent historian. History obtained from or confirmed by: other (see comments) and parent. External record(s) reviewed: prior outpatient record. Disposition The patient was discharged. Procedures [facility] 09-27-2024 History of Presen t illness Narrative [facility] Subjective Chan Burciaga is a 43 year old male. Patient presents with: Hematuria HPI Nontoxic-appearing 43-year-old male presents urgent care accompanied by caregiver. Chief complaint hematuria. Duration of symptoms 2 days. Associated symptoms dysuria and bloody urine. Pain after urination only for short amount of time. History of UTIs and kidney stones. States this feels a UTI. It is not as painful as a kidney stone. Is able to pass urine without difficulties. No fevers vomiting abdominal pain back pain flank pain testicular pain penile drainage or rashes. States overall feels well. Past medical history prescription medications allergies reviewed. Review of Systems Constitutional: Negative for appetite change, chills, diaphoresis, fatigue and fever. Gastrointestinal: Negative for abdominal pain, diarrhea, nausea and vomiting. Genitourinary: Positive for dysuria and hematuria. Negative for decreased urine volume, enuresis, flank pain, genital sores, penile discharge, penile pain, penile swelling, scrotal swelling, testicular pain and urgency. Objective BP 110/66 Pulse 96 Temp 36.2 C (97.1 F) Wt 86.2 kg (190 lb 0.6 oz) SpO2 96% Physical Exam Constitutional: Appearance: Normal appearance. He is normal weight. HENT: Head: Normocephalic. Cardiovascular: Rate and Rhythm: Normal rate and regular rhythm. Pulmonary: Effort: Pulmonary effort is normal. Breath sounds: Normal breath sounds. Abdominal: Tenderness: There is no abdominal tenderness. There is no right CVA tenderness, left CVA tenderness or guarding. Musculoskeletal: Cervical back: Normal range of motion. Neurological: Mental Status: He is alert. {ASSESSMENT/PLAN: 1. Acute cystitis with hematuria - ICD9: 595.0, ICD10: N30.01 - BACTERIAL CULTURE, URINE - UA DIP, URINE (POC) Differentials include renal calculi versus acute cystitis versus pyelonephritis. Treat as acute cystitis. placed on Keflex. Urine dip positive for blood and protein. Red flags prompt ER evaluation discussed. Follow-up with PCP 2 to 3 days. Patient was educated on supportive therapies. Patient was instructed to immediately proceed to emergency room for any new, worsening, or symptoms lasting longer than anticipated. The patient's clinical presentation is otherwise unremarkable at this time. Based on exam and clinical finding, the patient is stable for discharge. Plan of care was discussed with patient. Patient verbalizes understanding and agrees to plan of care. This note was generated using [facility] software. It may contain errors in wording, punctuation, or spelling. Sean Verduzco APRN.CONTENT CHECKER History and Record Review Clinical information obtained from an independent historian. History obtained from or confirmed by: other (see comments) and parent. External record(s) reviewed: prior outpatient record. Disposition The patient was discharged. Procedures documented in this encounter [facility] 08-20-2024 Telephone encounter Note Prescription Request: Last medication check: 10/24/2023 Last physical exam: 04/20/2024 Next scheduled appointment: 10/15/2024 CSA on file (date): N/A Last urine drug screen: N/A Last date of refill on this medication 05/01/2024 [facility] 08-20-2024 Miscellaneous Notes Prescription Request: Last medication check: 10/24/2023 Last physical exam: 04/20/2024 Next scheduled appointment: 10/15/2024 CSA on file (date): N/A Last urine drug screen: N/A Last date of refill on this medication 05/01/2024 documented in this encounter [facility] 08-10-2024 Telephone encounter Note Error [facility] 08-10-2024 Miscellaneous Notes Error documented in this encounter [facility] 07-23-2024 Telephone encounter Note Medication name: nabumetone (Relafen) 500 MG tablet Medication dosage: 500 mg (Miligrams Monthly quantity needed: 60 How many day supply requestin days Medication route: oral (PO) Medication administration time(s): as needed (PRN) If taking medication PRN, reason for taking medication: mild pain(1-3) or moderate pain(4-6) If this is a controlled substance do you receive this or any other controlled medication from any other doctor or facility: No Ordering provider: Dr. Rosa Date of last office visit: 04.20.2024 Date of next office visit: 10.20.2024 Date of last refill: (see medication tab): 09.27.2023 Updated/Validated preferred pharmacy: Yes Patient instructed to contact the pharmacy prior to picking up the medication: Yes [facility] 07-23-2024 Miscellaneous Notes Medication name: nabumetone (Relafen) 500 MG tablet Medication dosage: 500 mg (Miligrams Monthly quantity needed: 60 How many day supply requestin days Medication route: oral (PO) Medication administration time(s): as needed (PRN) If taking medication PRN, reason for taking medication: mild pain(1-3) or moderate pain(4-6) If this is a controlled substance do you receive this or any other controlled medication from any other doctor or facility: No Ordering provider: Dr. Rosa Date of last office visit: 04.20.2024 Date of next office visit: 10.20.2024 Date of last refill: (see medication tab): 09.27.2023 Updated/Validated preferred pharmacy: Yes Patient instructed to contact the pharmacy prior to picking up the medication: Yes documented in this encounter [facility] 07-14-2024 Telephone encounter Note Medication name: doxazosin (Cardura) 2 MG tablet Medication dosage: 2 mg (Miligrams Monthly quantity needed: 31 tab How many day supply requestin/refills Medication route: oral (PO) Medication administration time(s): bedtime (HS) If taking medication PRN, reason for taking medication: N/A If this is a controlled substance do you receive this or any other controlled medication from any other doctor or facility: N/A Ordering provider: Dr. Rosa Date of last office visit: 04/20/24 Date of next office visit: 10/20/24 Date of last refill: (see medication tab): 07/11/23 Updated/Validated preferred pharmacy: Yes Patient instructed to contact the pharmacy prior to picking up the medication: Yes [facility] 07-14-2024 Miscellaneous Notes Medication name: doxazosin (Cardura) 2 MG tablet Medication dosage: 2 mg (Miligrams Monthly quantity needed: 31 tab How many day supply requestin/refills Medication route: oral (PO) Medication administration time(s): bedtime (HS) If taking medication PRN, reason for taking medication: N/A If this is a controlled substance do you receive this or any other controlled medication from any other doctor or facility: N/A Ordering provider: Dr. Rosa Date of last office visit: 04/20/24 Date of next office visit: 10/20/24 Date of last refill: (see medication tab): 07/11/23 Updated/Validated preferred pharmacy: Yes Patient instructed to contact the pharmacy prior to picking up the medication: Yes documented in this encounter [facility] 06-23-2024 Telephone encounter Note Prescription Request: Last medication check: 10/24/2023 Last physical exam: 04/20/2024 Next scheduled appointment: 10/20/2024 Last date of refill on this medication: 06/04/23 [facility] 06-23-2024 Miscellaneous Notes Prescription Request: Last medication check: 10/24/2023 Last physical exam: 04/20/2024 Next scheduled appointment: 10/20/2024 Last date of refill on this medication: 06/04/23 documented in this encounter [facility] 05-04-2024 Telephone encounter Note Reviewed chart. Refill appropriate. RX sent. [facility] 05-04-2024 Miscellaneous Notes Reviewed chart. Refill appropriate. RX sent. [facility] requesting refill for Folic Acid 400mcg for 9 days w/1 refill. Prescription Request: Last medication check: 10/24/2023 Last physical exam: 04/20/2024 Next scheduled appointment: 10/20/2024 Last date of refill on this medication: 12/03/2023 documented in this encounter [facility] 05-04-2024 Telephone encounter Note [facility] requesting refill for Folic Acid 400mcg for 9 days w/1 refill. Prescription Request: Last medication check: 10/24/2023 Last physical exam: 04/20/2024 Next scheduled appointment: 10/20/2024 Last date of refill on this medication: 12/03/2023 [facility] 05-01-2024 Telephone encounter Note Reviewed chart. Refill appropriate. RX sent. [facility] 05-01-2024 Miscellaneous Notes Reviewed chart. Refill appropriate. RX sent. Prescription Request: Last medication check: 10/24/23 Last physical exam: 04/20/24 Next scheduled appointment: 10/20/24 Last date of refill on this medication 12/03/23 90 day 1 refill documented in this encounter [facility] 05-01-2024 Telephone encounter Note Prescription Request: Last medication check: 10/24/23 Last physical exam: 04/20/24 Next scheduled appointment: 10/20/24 Last date of refill on this medication 12/03/23 90 day 1 refill [facility] 04-20-2024 Evaluation + Plan note Associated Problem(s): Seasonal allergic rhinitis due to pollen Stable, continue Flonase and Claritin. [facility] 04-20-2024 Evaluation + Plan note Associated Problem(s): Recurrent major depressive disorder, in full remission (HCC) Stable, managed by psych continue current medications [facility] 04-20-2024 Miscellaneous Notes Associated Problem(s): Seasonal allergic rhinitis due to pollen Stable, continue Flonase and Claritin. Associated Problem(s): Recurrent major depressive disorder, in full remission (HCC) Stable, managed by psych continue current medications Associated Problem(s): Intellectual disability Stable, no current problem Associated Problem(s): Hyperlipidemia LDL goal <100 controlled, continue a atorvastatin 40 mg daily and fenofibrate 145 mg daily Associated Problem(s): Essential hypertension Can roll, continue clonidine 0.2 mg, doxazosin 2 mg losartan 100 mg Associated Problem(s): Loud snoring Stable, no sleep apnea on sleep sleep study documented in this encounter [facility] 04-20-2024 Evaluation + Plan note Associated Problem(s): Intellectual disability Stable, no current problem [facility] 04-20-2024 Evaluation + Plan note Associated Problem(s): Hyperlipidemia LDL goal <100 controlled, continue a atorvastatin 40 mg daily and fenofibrate 145 mg daily [facility] 04-20-2024 Evaluation + Plan note Associated Problem(s): Essential hypertension Can roll, continue clonidine 0.2 mg, doxazosin 2 mg losartan 100 mg [facility] 04-20-2024 Evaluation + Plan note Associated Problem(s): Loud snoring Stable, no sleep apnea on sleep sleep study [facility] 04-20-2024 History of Presen t illness Narrative Patient verified by last name and date of . Images from the original note were not included. 04/20/2024 Chan Burciaga (: 1980) is a 43 y.o. male , Established patient, here for evaluation of the following chief complaint(s): Annual Exam, Blood Work, and Health Maintenance (4th covid vaccine- not done) ASSESSMENT/PLAN: 1. Annual physical exam 2. Essential hypertension Assessment & Plan: Can roll, continue clonidine 0.2 mg, doxazosin 2 mg losartan 100 mg 3. Hyperlipidemia LDL goal <100 Assessment & Plan: controlled, continue a atorvastatin 40 mg daily and fenofibrate 145 mg daily Orders: - Lipid panel 4. Intellectual disability Assessment & Plan: Stable, no current problem 5. Recurrent major depressive disorder, in full remission (HCC) Assessment & Plan: Stable, managed by psych continue current medications 6. Seasonal allergic rhinitis due to pollen Assessment & Plan: Stable, continue Flonase and Claritin. 7. Loud snoring Assessment & Plan: Stable, no sleep apnea on sleep sleep study 8. Screening for diabetes mellitus - Comprehensive metabolic panel 9. Screening for prostate cancer - PSA Total (Screening) Follow up in about 6 months (around 10/19/2024). SUBJECTIVE/OBJECTIVE: MIGUEL ÁNGEL Bird comes in today for an annual exam, he has no complaints today. He has a history of loud snoring but he had a sleep study which was negative for sleep apnea, he has an intellectual disability and he lives in a [facility]. He has hypertension and his blood pressure is excellent today he has hyperlipidemia which is controlled seasonal allergies and he has depression and anxiety. Review of Systems Constitutional: Negative for activity change, appetite change, chills, fever and unexpected weight change. HENT: Negative for ear pain and sore throat. Respiratory: Negative for shortness of breath. Cardiovascular: Negative for chest pain and palpitations. Gastrointestinal: Negative for abdominal pain, blood in stool, constipation and diarrhea. Genitourinary: Negative for dysuria, frequency, hematuria and urgency. Musculoskeletal: Negative for arthralgias and back pain. Skin: Negative. Neurological: Negative for weakness and numbness. Psychiatric/Behavioral: Negative for dysphoric mood. The patient is not nervous/anxious. Vitals: 04/20/24 1104 BP: 117/74 Pulse: 73 SpO2: 94% Weight: 190 lb 12.8 oz (86.5 kg) Height: 5' 5.5 (1.664 m) Physical Exam Vitals and nursing note reviewed. Constitutional: General: He is not in acute distress. Appearance: Normal appearance. He is obese. HENT: Right Ear: Tympanic membrane, ear canal and external ear normal. Left Ear: Tympanic membrane, ear canal and external ear normal. Mouth/Throat: Mouth: Mucous membranes are moist. Pharynx: Oropharynx is clear. Eyes: Extraocular Movements: Extraocular movements intact. Conjunctiva/sclera: Conjunctivae normal. Pupils: Pupils are equal, round, and reactive to light. Neck: Thyroid: No thyromegaly. Cardiovascular: Rate and Rhythm: Normal rate and regular rhythm. Heart sounds: Normal heart sounds. No murmur heard. Pulmonary: Effort: Pulmonary effort is normal. Breath sounds: Normal breath sounds. Abdominal: General: Bowel sounds are normal. Palpations: Abdomen is soft. Tenderness: There is no abdominal tenderness. Musculoskeletal: General: Normal range of motion. Cervical back: Neck supple. Lymphadenopathy: Cervical: No cervical adenopathy. Skin: General: Skin is warm and dry. Neurological: General: No focal deficit present. Mental Status: He is alert and oriented to person, place, and time. Psychiatric: Mood and Affect: Mood normal. An electronic signature was used to authenticate this note. Ramiro Rosa MD 04/20/2024 12:50 PM documented in this encounter [facility] 04-06-2024 Telephone encounter Note Reviewed chart. Refill appropriate. RX sent. [facility] 04-06-2024 Miscellaneous Notes Reviewed chart. Refill appropriate. RX sent. Prescription Request: Last medication check: 10/24/2023 Last physical exam: 04/18/2023 Next scheduled appointment: 04/20/2024 Last date of refill on this medication: 11/12/2023 documented in this encounter [facility] 04-06-2024 Telephone encounter Note Prescription Request: Last medication check: 10/24/2023 Last physical exam: 04/18/2023 Next scheduled appointment: 04/20/2024 Last date of refill on this medication: 11/12/2023 [facility] 02-03-2024 Telephone encounter Note [facility] 02-03-2024 Miscellaneous Notes Pharmacy requesting refill. Prescription Request: Last medication check: 10/24/2023 Last physical exam: 04/18/2023 Next scheduled appointment: 04/20/2024 Last date of refill on this medication: 03/29/2023 documented in this encounter [facility] 02-03-2024 Telephone encounter Note Pharmacy requesting refill. Prescription Request: Last medication check: 10/24/2023 Last physical exam: 04/18/2023 Next scheduled appointment: 04/20/2024 Last date of refill on this medication: 03/29/2023 [facility] 01-17-2024 Telephone encounter Note Message released to patient as written. YANNICK Deal CNP 01/16/2024 9:02 PM EDT Home sleep study demonstrates no sleep related disorder- no sleep apnea detected. Patient's further questions if applicable: Iesha, patient's caregiver voiced understanding, no further questions or concerns at this time. Were all questions from office addressed or relayed to the patient from encounter: Yes [facility] 01-17-2024 Miscellaneous Notes Message released to patient as written. Coco Cheema APRN - [facility] 01/16/2024 9:02 PM EDT Home sleep study demonstrates no sleep related disorder- no sleep apnea detected. Patient's further questions if applicable: Iesha, patient's caregiver voiced understanding, no further questions or concerns at this time. Were all questions from office addressed or relayed to the patient from encounter: Yes documented in this encounter [facility] 12-19-2023 Note [facility] Medical Records Department [address] [place] [address] History Physical Exam 12/19/23 1005 MR#: [id number] Acct: [id number] Name: CHAN BURCIAGA Rep #: [id number] : 1980 43 From: Michael Laguerre DO PCP: Dr. Ramiro Rosa MD Status:[facility] Location: [place] [address] HPI - General General Date of Admission: 12/19/23 Date of Service: 12/19/23 Chief Complaint: Screening colonoscopy HPI Narrative CHAN BURCIAGA, is a 43 M who presents today for screening colonoscopy. He is never had a colonoscopy in the past. He does not have any abdominal pain, chest pain or shortness of breath. [facility] Medical History (Updated 12/16/23 @ 15:42 by Debora Wong) Lives in [facility] Arthritis Back pain Non-smoker Shortness of breath on exertion Intellectual disability Recurrent major depression in full remission Hyperlipidemia Essential hypertension Urinary tract infection with hematuria Home Medications ???Medication ???Instructions ???Recorded ???Last Taken ???Type fenofibrate nanocrystallized 145 145 mg PO DAILY 07/08/18 12/18/23 History mg tablet folic acid 400 mcg tablet 0.4 mg PO DAILY@0800 07/08/18 12/18/23 History garlic 200 mg tablet 350 mg PO DAILY 07/08/18 12/18/23 History loratadine 10 mg capsule (Claritin 10 mg PO DAILY 07/08/18 12/18/23 History Liqui-Gel) omega-3 fatty acids-fish oil 340 3 ea PO DAILY 07/08/18 12/15/23 History mg-1,000 mg capsule (Fish Oil) ammonium lactate 12 % topical cream 1 applic topical DAILY 05/29/23 12/18/23 History atorvastatin 40 mg tablet 40 mg PO DAILY 05/29/23 12/18/23 History clonidine HCl 0.2 mg tablet 0.2 mg PO BID 05/29/23 12/19/23 06:30 History doxazosin 2 mg tablet 2 mg PO QHS 05/29/23 12/18/23 History fluticasone propionate 50 2 spray intranasal DAILY 05/29/23 12/18/23 History mcg/actuation nasal spray,suspension (Allergy Relief (fluticasone)) losartan 100 mg tablet 100 mg PO DAILY 05/29/23 12/19/23 06:30 History multivitamin-ferrous 1 tab PO DAILY 05/29/23 12/18/23 History fumarate-folic acid 18 mg-400 mcg tablet (Certavite-Antioxidant) nabumetone 500 mg tablet 500 mg PO BID PRN pain 05/29/23 Unknown History quetiapine 150 mg tablet,extended 150 mg PO 1600 05/29/23 12/18/23 History release 24 hr neomycin-bacitracn Zn-polymyx 3.5 1 applic topical TID PRN dry skin 11/05/23 Unknown History mg-400 unit-5,000 unit/gram top oint (Neosporin ([id number])) oxcarbazepine 600 mg tablet 600 mg PO BID 11/05/23 12/19/23 06:30 History polyethylene glycol 3350 17 238 g PO ONCE Colonoscopy prep 11/12/23 12/19/23 Rx gram/dose oral powder (Miralax) #238 grams Allergy/AdvReac Type Severity Reaction Status Date / Time risperidone (From Risperdal) Allergy ANXIETY Verified 12/19/23 09:23 Surgical History (Updated 12/16/23 @ 15:42 by Debora Wong) Hx of cystoscopy History of testicular surgery History of ankle surgery Social History (Updated 11/05/23 @ 09:22 by Fanta Quiroga) household members: other details: Lives with others in residential home number of children: 0 Smoking Status: Never smoker alcohol intake: never substance use type: does not use ROS Review of Systems ROS Unobtainable: other Constitutional Constitutional: Denies fatigue, fever(s), poor appetite, weight gain or weight loss ENT HEENT: Denies mouth lesions Cardiovascular Cardiovascular: Denies abdominal bloating, abdominal edema or abdominal pain Respiratory/Chest Respiratory/Chest: Denies change in mental status, change in phlegm color, chest congestion or chest tightness Gastrointestinal Gastrointestinal: Denies belching, bloating, change in bowel habits, change in stool character, chewing difficulty, coffee ground emesis, constipation, cramping, diarrhea, dyspepsia, dysphagia, early satiety, excessive flatus, fecal incontinence, heartburn, hematemesis, hematochezia, hemorrhoids, loose stools, melena, nausea, odynophagia, rectal bleeding, tenesmus, vomiting or weight changes Genitourinary Genitourinary: Denies abdominal discomfort, burning urination or itching Musculoskeletal Musculoskeletal: Reports as per HPI; Denies muscle weakness or myalgias Integumentary Integumentary: Denies jaundice Neurologic Neurologic: Denies lack of coordination or weakness Psychiatric Psychiatric: Denies confusion, depression, memory loss, mood swings, paranoia or suicidal ideation Endocrine Endocrinology: Denies systems reviewed and no addt'l complaints, except as documented Hematologic/Lymphatic Hematologic/Lymphatic: Denies anemia, easy bleeding, easy bruising or lymphadenopathy Allergic/Immunologic Allergic/Immunologic: Denies systems reviewed and no addt'l complaints, except as documented Vital Signs Vital Signs Vital Signs: 12/19/23 09:20 12/19/23 09: (more content not included)... [facility] 12-19-2023 Telephone encounter Note Prescription Request: Last medication check: 10/24/23 Last physical exam: 04/18/23 Next scheduled appointment: 04/20/24 Last date of refill on this medication 06/07/23 [facility] 12-19-2023 Miscellaneous Notes Prescription Request: Last medication check: 10/24/23 Last physical exam: 04/18/23 Next scheduled appointment: 04/20/24 Last date of refill on this medication 06/07/23 documented in this encounter [facility] 12-03-2023 Telephone encounter Note Reviewed chart. Refill appropriate. RX sent. [facility] 12-03-2023 Miscellaneous Notes Reviewed chart. Refill appropriate. RX sent. Prescription Request: Last medication check: 10/24/23 Last physical exam: 04/18/23 Next scheduled appointment: 01/09/24 Last date of refill on this medication 06/26/23 documented in this encounter [facility] 12-03-2023 Telephone encounter Note Prescription Request: Last medication check: 10/24/23 Last physical exam: 04/18/23 Next scheduled appointment: 01/09/24 Last date of refill on this medication 06/26/23 [facility] 11-12-2023 Telephone encounter Note Prescription Request: Last medication check: 10/24/23 Last physical exam: 04/18/23 Next scheduled appointment: 04/20/24 Last date of refill on this medication 06/04/23 [facility] 11-12-2023 Miscellaneous Notes Prescription Request: Last medication check: 10/24/23 Last physical exam: 04/18/23 Next scheduled appointment: 04/20/24 Last date of refill on this medication 06/04/23 documented in this encounter [facility] 10-24-2023 Evaluation + Plan note Associated Problem(s): Seasonal allergic rhinitis due to pollen Stable, continue Claritin and Flonase. [facility] 10-24-2023 Evaluation + Plan note Associated Problem(s): Recurrent major depressive disorder, in full remission (HCC) Remission, continue Seroquel 150 mg nightly [facility] 10-24-2023 Miscellaneous Notes Associated Problem(s): Seasonal allergic rhinitis due to pollen Stable, continue Claritin and Flonase. Associated Problem(s): Recurrent major depressive disorder, in full remission (HCC) Remission, continue Seroquel 150 mg nightly Associated Problem(s): Hyperlipidemia LDL goal <100 Controlled, continue atorvastatin 40 mg daily and fenofibrate 100 mg daily Associated Problem(s): Essential hypertension Controlled, continue doxazosin 2 mg, clonidine 0.2 mg twice a day and losartan 100 mg daily Associated Problem(s): Loud snoring Order home sleep study. Associated Problem(s): MILAGROS (obstructive sleep apnea) Witnessed apneic episodes, will schedule patient for home sleep study. documented in this encounter [facility] 10-24-2023 Evaluation + Plan note Associated Problem(s): Hyperlipidemia LDL goal <100 Controlled, continue atorvastatin 40 mg daily and fenofibrate 100 mg daily [facility] 10-24-2023 Evaluation + Plan note Associated Problem(s): Essential hypertension Controlled, continue doxazosin 2 mg, clonidine 0.2 mg twice a day and losartan 100 mg daily [facility] 10-24-2023 Evaluation + Plan note Associated Problem(s): Loud snoring Order home sleep study. [facility] 10-24-2023 Evaluation + Plan note Associated Problem(s): MILAGROS (obstructive sleep apnea) Witnessed apneic episodes, will schedule patient for home sleep study. [facility] 10-24-2023 History of Presen t illness Narrative Patient verified by last name and date of . Images from the original note were not included. 10/24/2023 Chan Burciaga (: 1980) is a 43 y.o. male , Established patient, here for evaluation of the following chief complaint(s): Hypertension, Hyperlipidemia, Depression, Medication Check (6 month), and Health Maintenance (Hiv/hep c screening- refuse/Hep b vaccine- advised to go to pharmacy if wanting this /Tdap vaccine-advised to go to pharmacy if wanting this /Colonoscopy- agree) ASSESSMENT/PLAN: 1. Essential hypertension Assessment & Plan: Controlled, continue doxazosin 2 mg, clonidine 0.2 mg twice a day and losartan 100 mg daily 2. Hyperlipidemia LDL goal <100 Assessment & Plan: Controlled, continue atorvastatin 40 mg daily and fenofibrate 100 mg daily 3. Recurrent major depressive disorder, in full remission (HCC) Assessment & Plan: Remission, continue Seroquel 150 mg nightly 4. Seasonal allergic rhinitis due to pollen Assessment & Plan: Stable, continue Claritin and Flonase. 5. MILAGROS (obstructive sleep apnea) Assessment & Plan: Witnessed apneic episodes, will schedule patient for home sleep study. Orders: - Home sleep test 6. Loud snoring Assessment & Plan: Order home sleep study. Orders: - Home sleep test 7. Screening for colon cancer - External referral to Gastroenterology Follow up in about 6 months (around 04/24/2024) for annual. SUBJECTIVE/OBJECTIVE: MIGUEL ÁNGEL Monaco comes in today for 6-month follow-up on his multiple health issues which include hypertension which is well-controlled today, hyperlipidemia, depression which is in full remission seasonal allergies and his department head that is with him said they were on a weekend trip and they were in the same hotel room when he was snoring very loudly and his snoring would slow down and he would gasp and start breathing again and snoring loudly again. Review of Systems Constitutional: Negative for activity change, appetite change, chills, fever and unexpected weight change. HENT: Negative for ear pain and sore throat. Respiratory: Negative for shortness of breath. Cardiovascular: Negative for chest pain and palpitations. Gastrointestinal: Negative for abdominal pain, blood in stool, constipation and diarrhea. Genitourinary: Negative for dysuria, frequency, hematuria and urgency. Musculoskeletal: Negative for arthralgias and back pain. Skin: Negative. Neurological: Negative for weakness and numbness. Psychiatric/Behavioral: Negative for dysphoric mood. The patient is not nervous/anxious. Vitals: 10/24/23 0929 BP: 115/76 Pulse: 66 SpO2: 95% Weight: 183 lb 9.6 oz (83.3 kg) Height: 5' 5.5 (1.664 m) Physical Exam Vitals and nursing note reviewed. Constitutional: General: He is not in acute distress. Appearance: Normal appearance. HENT: Right Ear: Tympanic membrane, ear canal and external ear normal. Left Ear: Tympanic membrane, ear canal and external ear normal. Mouth/Throat: Mouth: Mucous membranes are moist. Pharynx: Oropharynx is clear. Eyes: Extraocular Movements: Extraocular movements intact. Conjunctiva/sclera: Conjunctivae normal. Pupils: Pupils are equal, round, and reactive to light. Neck: Thyroid: No thyromegaly. Vascular: No carotid bruit. Cardiovascular: Rate and Rhythm: Normal rate and regular rhythm. Heart sounds: Normal heart sounds. No murmur heard. Pulmonary: Effort: Pulmonary effort is normal. Breath sounds: Normal breath sounds. Abdominal: General: Bowel sounds are normal. Palpations: Abdomen is soft. Tenderness: There is no abdominal tenderness. Musculoskeletal: General: Normal range of motion. Cervical back: Neck supple. Lymphadenopathy: Cervical: No cervical adenopathy. Skin: General: Skin is warm and dry. Neurological: General: No focal deficit present. Mental Status: He is alert and oriented to person, place, and time. Psychiatric: Mood and Affect: Mood normal. An electronic signature was used to authenticate this note. Ramiro Rosa MD 10/24/2023 11:50 AM documented in this encounter [facility] 09-27-2023 Evaluation + Plan note Associated Problem(s): Chronic midline low back pain without sciatica Will refill his nabumetone and he is to take that regularly twice a day for up to 1 to 2 weeks. Rx sent if we need to we will send him back to physical therapy. [facility] 09-27-2023 Miscellaneous Notes Associated Problem(s): Chronic midline low back pain without sciatica Will refill his nabumetone and he is to take that regularly twice a day for up to 1 to 2 weeks. Rx sent if we need to we will send him back to physical therapy. documented in this encounter [facility] 09-27-2023 History of Presen t illness Narrative Patient verified by last name and date of . Images from the original note were not included. 09/27/2023 Chan Burciaga (: 1980) is a 42 y.o. male , Established patient, here for evaluation of the following chief complaint(s): Back Pain (Was better after physical therapy then pain is back ) ASSESSMENT/PLAN: 1. Chronic midline low back pain without sciatica Assessment & Plan: Will refill his nabumetone and he is to take that regularly twice a day for up to 1 to 2 weeks. Rx sent if we need to we will send him back to physical therapy. Follow up if symptoms worsen or fail to improve. SUBJECTIVE/OBJECTIVE: MIGUEL ÁNGEL Monaco comes in today complaining that his arthritis in his lower back is flared up again for the last 3 to 4 days. He does take Tylenol that seems to help but he also has nabumetone that helps even more if he takes it regularly. He denies any injury to his back, he denies any pain or numbness or tingling down his legs or loss of bowel or bladder control. Review of Systems Gastrointestinal: Denies stool incontinence Genitourinary: Denies urine incontinence Musculoskeletal: Positive for back pain and myalgias. Negative for gait problem and joint swelling. Neurological: Negative for weakness and numbness. Vitals: 09/27/23 1113 BP: 122/81 Pulse: 82 SpO2: 95% Weight: 180 lb 9.6 oz (81.9 kg) Height: 5' 5.5 (1.664 m) Physical Exam An electronic signature was used to authenticate this note. Ramiro Rosa MD 09/27/2023 12:24 PM documented in this encounter [facility] 08-25-2023 Discharge summary Note Date/Time August 25, 2023 9:15pm [facility] Physical [facility] [address] [place] [address] / REHABILITATION SERVICES DISCHARGE SUMMARY MR#: [id number] Acct: [id number] Name: CHAN BURCIAGA Rep #: [id number] : 1980 42 From: Milly Andrew PT, Cert. MDT Referring Dr.: Dr. Ramiro Rosa MD Status: REG RCR Insurance: MEDICAID SELF PAY INSURANCE Discharge Summary D/C summary: It has been my pleasure to treat CHAN BURCIAGA referred by Dr. Ramiro Rosa MD, with the diagnosis of CHRONIC MIDLINE LBP WITHOUT SCIATICA for a total of 13visit(s). Discharge Date: 07/16/23 Please see the following information for a summary of their discharge status. Subjective Subjective: PATIENT REPORTS HE IS DOING BETTER OVER-ALL AND FEELS HE CAN MANAGE WITHOUT PHYSICAL THERAPY NOW. STILL GETS MID BACK PAIN BUT IT COMES AND GOES. PROVOKED WITH LIFTING. DENIES LE SX'S. DOING HEP. Pain Back: Pain Intensity (Out of 10): 0 Overall Improvement % Improvement: 50 Objective Objective/Function: PATIENT WAS SEEN TODAY FOR RE-ASSESSMENT OF PROGRESS TOWARD THE SET PT GOALS AND THE NEED FOR FURTHER PHYSICAL THERAPY VS READINESS FOR DISCHARGE. PATIENT HAS MADE GOOD PROGRESS WITH PT, HAS TOLERATED PROGRESSIVE RESISTIVE EX WELL AND IS REPORTING TOLERATING SITTING, STANDING AND SLEEPING BETTER. HE IS APPROPRIATE FOR DISCHARGE TO [facility] AT THIS TIME. UPON EXAM TODAY: THIS PATIENT AMBULATES INDEP'LY INTO PT WITH HIS CAREGIVER. HE IS INDEP WITH GAIT AND TRANSFERS. HE IS ABLE TO FOLLOW COMMANDS FOR TESTING. LATOYA UE AND LE ROM AND STRENGTH IS GROSSLY WFL. Lumbar mvmt loss: flex - MIN ext - MOD R SG - MIN L SG - MIN PATIENT DENIES PAIN WITH LUMBAR ROM TESTING TODAY. THORACIC MVMT LOSS: R ROT - MIN L ROT - MIN PATIENT DENIES PAIN WITH THORACIC ROM TESTING TODAY. CERVICAL ROM TESTING - PATIENT DENIES PAIN WITH CERVICAL ROM TESTING ALL PLANESAND CERVICAL ROM IS GROSSLY WFL HOWEVER L ROT OBVIOUSLY MORE LIMITED THAN R. Postural Strength: FAIR PLUS Core strength: GOOD MINUS Goals Goal 1:: PATIENT WILL REPORT DECREASED BACK PAIN TO 0-3/10 X 1 WEEK TO EASE ADL'S. Goal Progress: Goal Met Goal 2:: PATIENT WILL HAVE INCREASED TRUNK ROM ALL PLANES WITHOUT C/O PAIN. Goal Progress: Goal Met Goal 3:: PATIENT WILL HAVE INCREASED TRUNK AND POSTURAL STRENGTH BY ONE GRADE Goal Progress: Goal Met Goal 4:: INDEP HEP Goal Progress: Goal Met Plan Plan: D/C D/C Information d/c sentence: If there are questions or concerns regarding this patient's physical therapy, please feel free to call me at [phone]. Thank you for the referral of thispatient. Sincerely, Milly Andrew, PT, Cert MDT Balance/Gait/Functional tests Balance/Special Test Scores Oswestry Low Back Score: 8 30 Second Chair Rise Test Seconds: 16 Improvement % Improvement: 50 <Electronically signed by Surinder Sandra PT. MDT> 08/25/232114 CC: Dr. Ramiro Rosa MD ~ MERY Signed [facility] Work Phone: 1(933) 994-428503-07-2024 Telephone encounter Note* Telephone Encounter - Puja White - 07/11/2023 8:27 AM EST Prescription Request: Last medication check: 10/18/22 Last physical exam: 04/18/23 Next scheduled appointment: 10/24/23 Last date of refill on this medication [facility]/08/23 [id number] Miscellaneous Notes* Telephone Encounter - Puja White - 07/11/2023 8:27 AM EST Prescription Request: Last medication check: 10/18/22 Last physical exam: 04/18/23 Next scheduled appointment: 10/24/23 Last date of refill on this medication 01/08/23 documented in this [id number] Telephone encounter Note* Telephone Encounter - Puja White - 07/02/2023 12:04 PM EST Prescription Request: Last medication check: 10/18/22 Last physical exam: 04/18/23 Next scheduled appointment: 10/24/23 Last date of refill on this medication 08/08/22 [id number] Miscellaneous Notes* Telephone Encounter - Puja White - 07/02/2023 12:04 PM EST Prescription Request: Last medication check: 10/18/22 Last physical exam: 04/18/23 Next scheduled appointment: 10/24/23 Last date of refill on this medication 08/08/22 documented in this [facility]02-02-2024 Telephone encounter Note* Telephone Encounter - Puja White - 06/07/2023 8:01 AM EST Prescription Request: Last medication check: 10/18/22 Last physical exam: 04/18/23 Next scheduled appointment: 10/24/23 Last date of refill on this medication 08/08/22 [place] [id number] Miscellaneous Notes* Telephone Encounter - Puja White - 06/07/2023 8:01 AM EST Prescription Request: Last medication check: 10/18/22 Last physical exam: 04/18/23 Next scheduled appointment: 10/24/23 Last date of refill on this medication 08/08/22 documented in this [facility]12-20-2023 Telephone encounter Note* Telephone Encounter - Antonella Silva MA - 04/24/2023 11:30 AM EST Prescription Request: Last medication check: 10/18/22 Last physical exam: 04/18/23 Next scheduled appointment: 10/24/2023 Last date of refill on this medication: 02/19/22 [id number] Miscellaneous Notes* Telephone Encounter - Antonella Silva MA - 04/24/2023 11:30 AM EST Prescription Request: Last medication check: 10/18/22 Last physical exam: 04/18/23 Next scheduled appointment: 10/24/2023 Last date of refill on this medication: 02/19/22 documented in this [facility]12-14-2023 Evaluation + Plan note* Assessment & Plan Note - Ramiro Rosa MD - 04/18/2023 10:35 AM EST Associated Problem(s): Chronic midline low back pain without sciatica Continue nabumetone and will start him in physical therapy. [facility] [id number] Miscellaneous Notes* Assessment & Plan Note - Ramiro Rosa MD - 04/18/2023 10:35 AM ESTAssociated Problem(s): Chronic midline low back pain without sciatica Continue nabumetone and will start him in physical therapy. * Assessment & Plan Note - Ramiro Rosa MD - 04/18/2023 10:34 AM EST Associated Problem(s): Hyperlipidemia LDL goal <100 Controlled, continue atorvastatin 40 mg daily and fenofibrate 145 mg daily * Assessment & Plan Note - Ramiro Rosa MD - 04/18/2023 10:34 AM EST Associated Problem(s): Intellectual disability Stable, no significant change * Assessment & Plan Note - Ramiro Rosa MD - 04/18/2023 10:33 AM EST Associated Problem(s): Recurrent major depressive disorder, in full remission (HCC) Remission, continue Trileptal and Seroquel, these are managed by psych * Assessment & Plan Note - Ramiro Rosa MD - 04/18/2023 10:33 AM EST Associated Problem(s): Seasonal allergic rhinitis due to pollen Currently stable, continue allergy medicines as needed. * Assessment & Plan Note - Ramiro Rosa MD - 04/18/2023 10:33 AM EST Associated Problem(s): Essential hypertension Controlled, continue clonidine 0.2 mg, doxazosin 2 mg and losartan 100 mg documented in this [facility]12-14-2023 Evaluation + Plan note* Assessment & Plan Note - Ramiro Rosa MD - 04/18/2023 10:34 AM EST Associated Problem(s): Hyperlipidemia LDL goal <100 Controlled, continue atorvastatin 40 mg daily and fenofibrate 145 mg daily [facility] [id number] Evaluation + Plan note* Assessment & Plan Note - Ramiro Rosa MD - 04/18/2023 10:34 AM ESTAssociated Problem(s): Intellectual disability Stable, no significant change [facility] [id number] Evaluation + Plan note* Assessment & Plan Note - Ramiro Rosa MD - 04/18/2023 10:33 AM ESTAssociated Problem(s): Recurrent major depressive disorder, in full remission (HCC) Remission, continue Trileptal and Seroquel, these are managed by psych [facility] [id number] Evaluation + Plan note* Assessment & Plan Note - Ramiro Rosa MD - 04/18/2023 10:33 AM ESTAssociated Problem(s): Seasonal allergic rhinitis due to pollen Currently stable, continue allergy medicines as needed. [place] [id number] Evaluation + Plan note* Assessment & Plan Note - Ramiro Rosa MD - 04/18/2023 10:33 AM ESTAssociated Problem(s): Essential hypertension Controlled, continue clonidine 0.2 mg, doxazosin 2 mg and losartan 100 mg [place] [id number] History of Present illness Narrative* Antonella Silva MA - 04/18/2023 9:30 AM EST Patient was verified by name and . * Ramiro Rosa MD - 04/18/2023 9:30 AM EST Images from the original note were not included. 04/18/2023 Chan Burciaga (: 1980) is a 42 y.o. male , Established patient, here for evaluation of thefollowing chief complaint(s): Annual Exam, Health Maintenance (Did not get a 4th COVID vaccine-only 3), and Blood Work ASSESSMENT/PLAN: 1. Annual physical exam Comments: Healthy male, fill out paperwork for his [facility] 2. Essential hypertension Assessment & Plan: Controlled, continue clonidine 0.2 mg, doxazosin 2 mg and losartan 100 mg 3. Seasonal allergic rhinitis due to pollen Assessment & Plan: Currently stable, continue allergy medicines as needed. 4. Recurrent major depressive disorder, in full remission (HCC) Assessment & Plan: Remission, continue Trileptal and Seroquel, these are managed by psych 5. Hyperlipidemia LDL goal <100 Assessment & Plan: Controlled, continue atorvastatin 40 mg daily and fenofibrate 145 mg daily Orders: - Lipid panel 6. Intellectual disability Assessment & Plan: Stable, no significant change 7. Screening for diabetes mellitus - Comprehensive metabolic panel 8. Screening for prostate cancer - PSA Total (Screening) 9. Chronic midline low back pain without sciatica Assessment & Plan: Continue nabumetone and will start him in physical therapy. Orders: - External referral to Physical Therapy Follow up in about 6 months (around 10/18/2023). SUBJECTIVE/OBJECTIVE: [facility] Carlos Enrique comes in today for an annual exam, he needs fasting lab work his only complaint is continued back pain that comes and goes in the has treated it with a NSAID multiple times and it seems tohelp and he also uses Tylenol for. He denies any radiation of pain into his arms or down his legs and no weakness numbness or tinglingor loss of bowel or bladder control. Review of Systems Constitutional: Negative for activity change, appetite change, chills, fever and unexpected weight change. HENT: Negative for ear pain and sore throat. Respiratory: Negative for shortness of breath. Cardiovascular: Negative for chest pain and palpitations. Gastrointestinal: Negative for abdominal pain, blood in stool, constipation and diarrhea. Genitourinary: Negative for dysuria, frequency, hematuria and urgency. Musculoskeletal: Negative for arthralgias and back pain. Skin: Negative. Neurological: Negative for weakness and numbness. Psychiatric/Behavioral: Negative for dysphoric mood. The patient is not nervous/anxious. Vitals: 04/18/23 0903 BP: 108/72 Pulse: 79 SpO2: 94% Weight: 187 lb (84.8 kg) Height: 5' 5.5 (1.664 m) Physical Exam Vitals and nursing note reviewed. Constitutional: General: He is not in acute distress. Appearance: Normal appearance. HENT: Right Ear: Tympanic membrane, ear canal and external ear normal. Left Ear: Tympanic membrane, ear canal and external ear normal. Mouth/Throat: Mouth: Mucous membranes are moist. Pharynx: Oropharynx is clear. Eyes: Extraocular Movements: Extraocular movements intact. Conjunctiva/sclera: Conjunctivae normal. Pupils: Pupils are equal, round, and reactive to light. Neck: Thyroid: No thyromegaly. Vascular: No carotid bruit. Cardiovascular: Rate and Rhythm: Normal rate and regular rhythm. Heart sounds: Normal heart sounds. No murmur heard. Pulmonary: Effort: Pulmonary effort is normal. Breath sounds: Normal breath sounds. Abdominal: General: Bowel sounds are normal. Palpations: Abdomen is soft. Tenderness: There is no abdominal tenderness. Musculoskeletal: General: Normal range of motion. Cervical back: Neck supple. Comments: Back is straight with normal range of motion he points to an area of the lower thoracic area just left of midline. And says that is where his pain seems to come from. All of his extremitieshas free range of motion and muscle strength is 5/5. Lymphadenopathy: Cervical: No cervical adenopathy. Skin: General: Skin is warm and dry. Neurological: General: No focal deficit present. Mental Status: He is alert and oriented to person, place, and time. Deep Tendon Reflexes: Reflexes normal. Psychiatric: Mood and Affect: Mood normal. An electronic signature was used to authenticate this note. Ramiro Rosa MD 04/18/2023 10:35 AM documented in this encounterSSt. Mary's Medical [id number] Telephone encounter Note* Telephone Encounter - YANNICK Jones CNP - 03/29/2023 11:06 AM EST Reviewed chart. Refill appropriate. RX sent. [facility] [id number] Miscellaneous Notes* Telephone Encounter - YANNICK Jones CNP - 03/29/2023 11:06 AM EST Reviewed chart. Refill appropriate. RX sent. * Telephone Encounter - Antonella Silva MA - 03/29/2023 11:04 AM EST Prescription Request: Last medication check: 10/18/22 Last physical exam: 04/19/22 Next scheduled appointment: 04/18/23 Last date of refill on this medication 8.4.23 documented in this [facility]11-24-2023 Telephone encounter Note* Telephone Encounter - Antonella Silva MA - 03/29/2023 11:04 AM EST Prescription Request: Last medication check: 10/18/22 Last physical exam: 04/19/22 Next scheduled appointment: 04/18/23 Last date of refill on this medication 8.4.23 [facility] [id number] Telephone encounter Note* Telephone Encounter - Ramiro Rosa MD - 02/18/2023 4:11 PM EDT Okay, thank you [facility] [id number] Miscellaneous Notes* Telephone Encounter - Ramiro Rosa MD - 02/18/2023 4:11 PM EDT Okay, thank you * Telephone Encounter - Antonella Silva MA - 02/18/2023 3:46 PM EDT Notified, states he went to urgent care today but will keep appt on 02/25/23 with the foot doctor as well. * Telephone Encounter - Ramiro Rosa MD - 02/18/2023 3:45 PM EDT If he has an appointment on the with the foot doctor he should keep that. * Telephone Encounter - Milly Miller RN - 02/18/2023 12:27 PM EDT S: Patient's caregiver Iesha spoke with [facility] nurse regarding toe injury B: Onset of symptoms/concern this morning A: Pt picked off one of his toenails this morning- right 1st digit. It was bandaged and antibiotic ointment applied. Unknown if bleeding or if pt is in pain. Nursing staff emailed her and asked her to get an appointment to check the toe. Pt has done this before. There are no appointments available this week that [facility] nurse can schedule. Offered first available which is 02-25-23. Declined stating that pt has an appointment on that day with his foot doctor. Asking if there is anyway for him to be seen this week. R: TE sent to the office for review. Please contact Iesha at [phone] if able to be seen sooner or with further interventions. Advised to keep covered with antibiotic ointment. Ice if painful.Understands care advice. Instructed to call back with new or worsening symptoms. Reason for Disposition Toenail is completely torn off Protocols used: Toe [id number] documented in this encounterSSt. Mary's Medical [id number] Telephone encounter Note* Telephone Encounter - Antonella Silva MA - 02/18/2023 3:46 PM EDT Notified, states he went to urgent care today but will keep appt on 02/25/23 with the foot doctor as well. [facility] [id number] Telephone encounter Note* Telephone Encounter - Ramiro Rosa MD - 02/18/2023 3:45 PM EDT If he has an appointment on the with the foot doctor he should keep that. [id number] History of Present illness Narrative* Tai YuliaYANNICK díaz.CONTENT CHECKER - 02/18/2023 3:00 PM EDT This note was created using TrialReachriter. Subjective Chan Burciaga is a 42 year old male. 42 year old male with PMH mild ID, impulse control, NOS, mycotic toenails, hyperlipidemia, and organic brain delusional personality disorder presents for complaints of toe pain. Acute onset 0130 today He ripped his toenail off, citing that he has a habit of doing same. States bored and nothing to do Accompanied by staff of [place], where patient resides, citing he has done similar in past. 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 Wanted to get him checked out Staff applied topical ATB cream No fever or chills No active bleeding Pain when he puts on his tennis shoes. The history is provided by the patient and a caregiver. The history is limited by a developmental delay. No site interpreter was used. Pain (foot) Pain location: right great toe. This is a new problem. The current episode started today. There hasbeen a history of trauma. The problem occurs constantly. The problem has been unchanged. The quality of the pain is described as sharp. The pain is at a severity of 4/10. The pain is mild. Pertinent negatives include no fever, inability to bear weight, itching, joint locking, joint swelling, limited range of motion, numbness, stiffness or tingling. The symptoms are aggravated by activity (wearingof shoes). Treatments tried: ATB ointment. The treatment provided no relief. Family history does not include gout or rheumatoid arthritis. There is no history of diabetes, gout, osteoarthritis or rheumatoid arthritis. No past medical history on file. No past surgical history on file. ALLERGIES Risperidone MEDICATIONS ammonium lactate (LAC-HYDRIN) 12 % cream APPLY TOPICALLY TO FEET ONCE EVERY DAY (8PM) atorvastatin (LIPITOR) 40 mg tablet Take 1 tablet by mouth once daily. carbamide peroxide (EAR DROPS) 6.5 % otic solution INSTILL 5 DROPS IN BOTH EARS TWICE DAILY THE 1ST4 DAYS OF THE MONTH (7AM,8PM) cloNIDine HCl (CATAPRES) 0.1 mg tablet Take 1 tablet by mouth two times a day. doxazosin (CARDURA) 2 mg tablet TAKE 1 TABLET BY MOUTH EVERY NIGHT AT BEDTIME (8PM) doxycycline monohydrate 100 mg tablet Take 1 tablet by mouth two times a day for 7 days. fenofibrate nanocrystallized (TRICOR) 145 mg tablet Take 1 tablet by mouth once daily. fluticasone (FLONASE) 50 mcg/actuation nasal spray 2 Sprays. folic acid 400 mcg tablet Take 1 tablet by mouth once daily. GARLIC Take 350 mg by mouth once daily. loratadine (CLARITIN) 10 mg tablet TAKE 1 TABLET BY MOUTH ONCE EVERY DAY (4PM) losartan (COZAAR) 100 mg tablet Take 1 tablet by mouth once daily. multivitamin/iron/folic acid (CERTAVITE-ANTIOXIDANT ORAL) Take by mouth. nabumetone (RELAFEN) 500 mg tablet Take 500 mg by mouth. Wbxlmfyu-RtxmsamuzXr-Uypklzolm 3.5-500-10,000 sf-zagw-iund oint APPLY TOPICALLY TO INSIDE OF NOSE 3TIMES DAILY NEEDED FOR DRY PATCHES omega 3-sds-brb-fish oil 300 mg-100 mg- 150 mg-1,000 mg cap TAKE 3 CAPSULES (3000MG) BY MOUTH ONCE EVERY DAY OXcarbazepine (TRILEPTAL) 600 mg tablet TAKE 1 TABLET BY MOUTH TWICE DAILY (7AM,8PM) QUEtiapine XR (SEROQUEL XR) 150 mg Tb24 Take 150 mg by mouth. No family history on file. Review of Systems Constitutional: Negative for activity change, appetite change, chills and fever. Eyes: Negative for photophobia, discharge, redness, itching and visual disturbance. Respiratory: Negative for apnea, cough, choking and chest tightness. Cardiovascular: Negative for chest pain, palpitations and leg swelling. Gastrointestinal: Negative for abdominal pain, diarrhea, nausea and vomiting. Musculoskeletal: Negative for gout and stiffness. Right great toe Skin: Negative for color change, itching, pallor, rash and wound. Allergic/Immunologic: Negative for environmental allergies, food allergies and immunocompromised state. Neurological: Negative for dizziness, tingling, facial asymmetry, numbness and headaches. Hematological: Negative for adenopathy. Does not bruise/bleed easily. Psychiatric/Behavioral: Negative for agitation and behavioral problems. Objective BP 124/70 Pulse 98 Temp 36.7 C (98 F) Resp 16 Wt 84.2 kg (185 lb 9.6 oz) SpO2 96% Physical Exam Vitals and nursing note reviewed. Constitutional: General: He is not in acute distress. Appearance: Normal appearance. He is not ill-appearing, toxic-appearing or diaphoretic. HENT: Head: Normocephalic and atraumatic. Right Ear: External ear normal. Left Ear: External ear normal. Nose: Nose normal. No congestion or rhinorrhea. Mouth/Throat: Mouth: Mucous membranes are moist. Pharynx: Oropharynx is clear. No oropharyngeal exudate or posterior oropharyngeal erythema. Eyes: General: Right eye: No discharge. Left eye: No discharge. Extraocular Movements: Extraocular movements intact. Conjunctiva/sclera: Conjunctivae normal. Pupils: Pupils are equal, round, and reactive to light. Cardiovascular: Rate and Rhythm: Normal rate and regular rhythm. Pulses: Normal pulses. Heart sounds: Normal heart sounds. No murmur heard. No friction rub. No gallop. Pulmonary: Effort: Pulmonary effort is normal. No respiratory distress. Breath sounds: Normal breath sounds. No stridor. No wheezing, rhonchi or rales. Chest: Chest wall: No tenderness. Abdominal: General: Abdomen is flat. There is no distension. Palpations: Abdomen is soft. There is no mass. Tenderness: There is no abdominal tenderness. There is no guarding or rebound. Hernia: No hernia is present. Musculoskeletal: General: Tenderness and signs of injury present. No swelling or deformity. Normal range of motion. Cervical back: Normal range of motion and neck supple. No rigidity or tenderness. Right lower leg: No edema. Left lower leg: No edema. Comments: Right great toe with nail absent. White cream substance noted (consistent with caregiver story of topical ATB ointment applied) No active bleeding No abscess +full range of motion. Lymphadenopathy: Cervical: No cervical adenopathy. Skin: General: Skin is warm and dry. Capillary Refill: Capillary refill takes less than 2 seconds. Coloration: Skin is not jaundiced or pale. Findings: No bruising, lesion or rash. Neurological: General: No focal deficit present. Mental Status: He is alert and oriented to person, place, and time. Cranial Nerves: No cranial nerve deficit. Sensory: No sensory deficit. Motor: No weakness. Coordination: Coordination normal. Gait: Gait normal. Deep Tendon Reflexes: Reflexes normal. Psychiatric: Mood and Affect: Mood normal. Behavior: Behavior normal. Thought Content: Thought content normal. Assessment and Plan ASSESSMENT/PLAN: 1. Toenail torn away - ICD9: 959.7, ICD10: S99.829A Traumatically, self induced by patient History of same No red flags DSD applied over toe Post op shoe Will provide Doxycyline Warm soapy soaks Follow up with podiatry in 2 weeks Yulia Lujan APRN.CONTENT CHECKER documented in this encounterMem[facility] System[facility]23 Telephone encounter Note * Telephone Encounter - Milly Miller RN - 02/18/2023 12:27 PM EDT S: Patient's caregiver Iesha spoke with [facility] nurse regarding toe injury B: Onset of symptoms/concern this morning A: Pt picked off one of his toenails this morning- right 1st digit. It was bandaged and antibiotic ointment applied. Unknown if bleeding or if pt is in pain. Nursing staff emailed her and asked her to get an appointment to check the toe. Pt has done this before. There are no appointments available this week that [facility] nurse can schedule. Offered first available which is 02-25-23. Declined stating that pt has an appointment on that day with his foot doctor. Asking if there is anyway for him to be seen this week. R: TE sent to the office for review. Please contact Iesha at [phone] if able to be seen sooner or with further interventions. Advised to keep covered with antibiotic ointment. Ice if painful.Understands care advice. Instructed to call back with new or worsening symptoms. Reason for Disposition Toenail is completely torn off Protocols used: Toe [id number] [facility] [id number] Telephone encounter Note* Telephone Encounter - Cindi Fisher MA - 01/08/2023 11:18 AM EDT Prescription Request: Last medication check: 10/18/22 Last physical exam: 04/19/22 Next scheduled appointment: 04/18/23 Last date of refill on this medication 07/09/22 31 days 5 refills [facility] [id number] Miscellaneous Notes* Telephone Encounter - Cindi Fisher MA - 01/08/2023 11:18 AM EDT Prescription Request: Last medication check: 10/18/22 Last physical exam: 04/19/22 Next scheduled appointment: 04/18/23 Last date of refill on this medication 07/09/22 31 days 5 refills documented in this [facility]08-04-2023 Telephone encounter Note* Telephone Encounter - Cindi Fisher MA - 12/07/2022 6:51 AM EDT Prescription Request: Last medication check: 10/18/22 Last physical exam: 04/19/22 Next scheduled appointment: 04/18/23 Last date of refill on this medication 08/14/22 16g 3 refills [facility] [id number] Miscellaneous Notes* Telephone Encounter - Cindi Fisher MA - 12/07/2022 6:51 AM EDT Prescription Request: Last medication check: 10/18/22 Last physical exam: 04/19/22 Next scheduled appointment: 04/18/23 Last date of refill on this medication 08/14/22 16g 3 refills documented in this [facility]06-29-2023 Telephone encounter Note* Telephone Encounter - Antonella Silva MA - 11/01/2022 10:58 AM EDT Prescription Request: Last medication check: 10/18/22 Last physical exam: 04/19/22 Next scheduled appointment: 04/18/23 Last date of refill on this medication: 05/15/22 [facility] [id number] Miscellaneous Notes* Telephone Encounter - Antonella Silva MA - 11/01/2022 10:58 AM EDT Prescription Request: Last medication check: 10/18/22 Last physical exam: 04/19/22 Next scheduled appointment: 04/18/23 Last date of refill on this medication: 05/15/22 documented in this [facility]SSt[facility] [id number] Telephone encounter Note* Telephone Encounter - Azul Walters - 10/25/2022 3:00 PM EDT Message released to patient as written. Patient's further questions if applicable: Yes Iesha states she has a new # [phone]. Iesha states they need the order for the prescription faxed to their office at [phone]. Stating the patient should take the medication once every 12 hours as needed for pain. Please advise. Were all questions from office addressed or relayed to the patient from encounter: Yes [facility] [id number] Miscellaneous Notes* Telephone Encounter - Azul Walters - 10/25/2022 3:00 PM EDT Message released to patient as written. Patient's further questions if applicable: Yes Iesha states she has a new # [phone]. Iesha states they need the order for the prescription faxed to their office at [phone]. Stating the patient should take the medication once every 12 hours as needed for pain. Please advise. Were all questions from office addressed or relayed to the patient from encounter: Yes * Telephone Encounter - Antonella Silva MA - 10/24/2022 9:17 AM EDT Called Iesha, no answer and no vm. * Telephone Encounter - Antonella Silva MA - 10/23/2022 8:20 AM EDT Images from the original note were not included. YANNICK Deal CNP [facility] Services Tech 23 hours ago (8:32 AM) HL It was sent for 60 tablets. Even though it was sent saying twice a day he can use it twice a day, which is every 12 hours, as needed. Called Iesha, no answer and no vm. * Telephone Encounter - Antonella Silva MA - 10/22/2022 8:41 AM EDT Images from the original note were not included. YANNICK Deal CNP [facility] Clinical Support Services Tech 8 minutes ago (8:32 AM) HL It was sent for 60 tablets. Even though it was sent saying twice a day he can use it twice a day, which is every 12 hours, as needed. I called Iesha back, no answer and vm is not set up. * Telephone Encounter - YANNICK Deal CNP - 10/22/2022 8:32 AM EDT It was sent for 60 tablets. Even though it was sent saying twice a day he can use it twice a day, which is every 12 hours, as needed. 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 Rosa Practice: [facility] Chief Complaint/Reason for Call: Caller stated they received pt Rx for nabumetone (Relafen) 500 MG tablet and stated this is written to take 1 tablet by mouth 2 times daily. Caller stated this needs to be changed to one tablet by mouth every 12 hours as needed for pain, or something similar to that. Caller stated this needs to be a written order and to please fax this to: [phone] Attn: Laureen Gilmore. Please advise. Thank you. Best time of day caller can be reached: Any Patient advised that office/PCP has 24-48 business hours to return their call: Yes documented in this encounterSSt. Mary's Medical [id number] Telephone encounter Note* Telephone Encounter - Antonella Silva MA - 10/24/2022 9:17 AM EDT Called Iesha, no answer and no vm. [facility] [id number] Telephone encounter Note* Telephone Encounter - Antonella Silva MA - 10/23/2022 8:20 AM EDT Images from the original note were not included. Coco Cheema, DIRECTOR OF PHYSIOTHERAPY SERVICES - CONTENT CHECKER [facility] Clinical Support Services Tech 23 hours ago (8:32 AM) HL It was sent for 60 tablets. Even though it was sent saying twice a day he can use it twice a day, which is every 12 hours, as needed. Called Iesha, no answer and no vm. [facility] [id number] Telephone encounter Note* Telephone Encounter - Antonella Silva MA - 10/22/2022 8:41 AM EDT Images from the original note were not included. YANNICK Deal CNP [facility] Clinical Support Services Tech 8 minutes ago (8:32 AM) HL It was sent for 60 tablets. Even though it was sent saying twice a day he can use it twice a day, which is every 12 hours, as needed. I called Iesha back, no answer and vm is not set up. [facility] [id number] Telephone encounter Note* Telephone Encounter - YANNICK Deal CNP - 10/22/2022 8:32 AM EDT It was sent for 60 tablets. Even though it was sent saying twice a day he can use it twice a day, which is every 12 hours, as needed. 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 Caller stated this needs to be changed to one tablet by mouth every 12 hours as needed for pain, or something similar to that. Caller stated this needs to be a written order and to please fax this to: [phone] Attn: Laureen Gilmore. Please advise. Thank you. Best time of day caller can be reached: Any Patient advised that office/PCP has 24-48 business hours to return their call: Yes [facility] [id number] Evaluation + Plan note* Assessment & Plan Note - Ramiro Rosa MD - 10/18/2022 4:30 PM EDTAssociated Problem(s): Recurrent major depressive disorder, in full remission (HCC) Remission, continue Trileptal and Seroquel as prescribed by his psych. [place] [id number] Evaluation + Plan note* Assessment & Plan Note - Ramiro Rosa MD - 10/18/2022 4:30 PM EDTAssociated Problem(s): Hyperlipidemia LDL goal <100 Controlled, continue atorvastatin 40 mg daily and fenofibrate 145 mg daily [place] [id number] Evaluation + Plan note* Assessment & Plan Note - Ramiro Rosa MD - 10/18/2022 4:30 PM EDTAssociated Problem(s): Acute midline low back pain without sciatica Comes and goes, we will get him a refill on his nabumetone to be used twice a day as needed. [address] [id number] Miscellaneous Notes* Assessment & Plan Note - Ramiro Rosa MD - 10/18/2022 4:30 PM EDTAssociated Problem(s): Recurrent major depressive disorder, in full remission (HCC) Remission, continue Trileptal and Seroquel as prescribed by his psych. * Assessment & Plan Note - Ramiro Rosa MD - 10/18/2022 4:30 PM EDT Associated Problem(s): Hyperlipidemia LDL goal <100 Controlled, continue atorvastatin 40 mg daily and fenofibrate 145 mg daily * Assessment & Plan Note - Ramiro Rosa MD - 10/18/2022 4:30 PM EDT Associated Problem(s): Acute midline low back pain without sciatica Comes and goes, we will get him a refill on his nabumetone to be used twice a day as needed. * Assessment & Plan Note - Ramiro Rosa MD - 10/18/2022 4:29 PM EDT Associated Problem(s): Essential hypertension Controlled, continue losartan 100 mg daily documented in this [facility]06-15-2023 Evaluation + Plan note* Assessment & Plan Note - Ramiro Rosa MD - 10/18/2022 4:29 PM EDT Associated Problem(s): Essential hypertension Controlled, continue losartan 100 mg daily [facility] [id number] History of Present illness Narrative* Lexus Landrum MA - 10/18/2022 2:15 PM EDT Patient verified by last name and date of . Patient wants a stain applicator in the room during during the visit. no Distribution Center Supervisor na [place] in room during visit * Ramiro Rosa MD - 10/18/2022 2:15 PM EDT Images from the original note were not included. 10/18/2022 Chan Burciaga (: 1980) is a 42 y.o. male , Established patient, here for evaluation of thefollowing chief complaint(s): Hyperlipidemia, Hypertension, Depression (Tried to do PHQ9 but pt was not really understanding the questions ), and Medication Check ASSESSMENT/PLAN: 1. Essential hypertension Assessment & Plan: Controlled, continue losartan 100 mg daily 2. Hyperlipidemia LDL goal <100 Assessment & Plan: Controlled, continue atorvastatin 40 mg daily and fenofibrate 145 mg daily 3. Recurrent major depressive disorder, in full remission (HCC) Assessment & Plan: Remission, continue Trileptal and Seroquel as prescribed by his psych. 4. Acute midline low back pain without sciatica Assessment & Plan: Comes and goes, we will get him a refill on his nabumetone to be used twice a day as needed. Follow up in about 6 months (around 04/19/2023). SUBJECTIVE/OBJECTIVE: MIGUEL ÁNGEL Monaco comes in today for 6-month follow-up on his hypertension, hyperlipidemia depression and he said he is back pain has started bothering him again and he is wondering about getting some more medication for that. He denies any other complaints at this time, see ROS. He needs paperwork filled out for [employer]. Review of Systems Constitutional: Negative for activity change, appetite change, chills, fever and unexpected weight change. HENT: Negative for ear pain and sore throat. Respiratory: Negative for shortness of breath. Cardiovascular: Negative for chest pain and palpitations. Gastrointestinal: Negative for abdominal pain, blood in stool, constipation and diarrhea. Genitourinary: Negative for dysuria, frequency, hematuria and urgency. Musculoskeletal: Positive for back pain. Negative for arthralgias. Skin: Negative. Neurological: Negative for weakness and numbness. Psychiatric/Behavioral: Negative for dysphoric mood. The patient is not nervous/anxious. Vitals: 10/18/22 1423 BP: 125/84 Pulse: 90 SpO2: 95% Weight: 184 lb (83.5 kg) Height: 5' 5.5 (1.664 m) Physical Exam Vitals and nursing note reviewed. Constitutional: General: He is not in acute distress. Appearance: Normal appearance. HENT: Right Ear: Tympanic membrane, ear canal and external ear normal. Left Ear: Tympanic membrane, ear canal and external ear normal. Mouth/Throat: Mouth: Mucous membranes are moist. Pharynx: Oropharynx is clear. Eyes: Extraocular Movements: Extraocular movements intact. Pupils: Pupils are equal, round, and reactive to light. Cardiovascular: Rate and Rhythm: Normal rate and regular rhythm. Heart sounds: Normal heart sounds. No murmur heard. Pulmonary: Effort: Pulmonary effort is normal. Breath sounds: Normal breath sounds. Abdominal: General: Bowel sounds are normal. Palpations: Abdomen is soft. Tenderness: There is no abdominal tenderness. Musculoskeletal: General: Normal range of motion. Cervical back: Neck supple. Skin: General: Skin is warm and dry. Neurological: General: No focal deficit present. Mental Status: He is alert and oriented to person, place, and time. Psychiatric: Mood and Affect: Mood normal. An electronic signature was used to authenticate this note. Ramiro Rosa MD 10/18/2022 4:31 PM documented in this [facility]04-24-2023 Evaluation + Plan note* Assessment & Plan Note - Ramiro Rosa MD - 08/27/2022 12:35 PM EDT Associated Problem(s): Acute midline low back pain without sciatica We will send him for x-rays of his lumbar spine. Nabumetone 500 mg twice a day for up to 7 days and he can use Tylenol in addition to that. [facility] [id number] Miscellaneous Notes* Assessment & Plan Note - Ramiro Rosa MD - 08/27/2022 12:35 PM EDTAssociated Problem(s): Acute midline low back pain without sciatica We will send him for x-rays of his lumbar spine. Nabumetone 500 mg twice a day for up to 7 days and he can use Tylenol in addition to that. documented in this [place] [id number] History of Present illness Narrative* Ramiro Rosa MD - 08/27/2022 9:45 AM EDT Images from the original note were not included. 08/27/2022 Chan Burciaga (: 1980) is a 41 y.o. male , Established patient, here for evaluation of thefollowing chief complaint(s): Back Pain (For last week and half) ASSESSMENT/PLAN: 1. Acute midline low back pain without sciatica Assessment & Plan: We will send him for x-rays of his lumbar spine. Nabumetone 500 mg twice a day for up to 7 days and he can use Tylenol in addition to that. Orders: - XR lumbar spine complete 4+ views Follow up if symptoms worsen or fail to improve. SUBJECTIVE/OBJECTIVE: HPI -Chan comes in today complaining of some mid back pain, he says he slept on the floor 2 weeks ago and since then he has been complaining of pain worse in the morning when he gets up and then throughout the day seems to improve but he says he takes Tylenol every morning and occasionally he willtake it in the evening. He denies any pain down his legs no numbness or tingling of his legs and denies any loss of bowel or bladder control and he points to his midline at the upper lumbar region as to where the pain is located. Review of Systems Gastrointestinal: Denies stool incontinence Genitourinary: Denies urinary incontinence Musculoskeletal: Positive for back pain and myalgias. Negative for arthralgias, gait problem and joint swelling. Neurological: Negative for weakness and numbness. Vitals: 08/27/22 0943 BP: 110/62 Pulse: 65 Weight: 180 lb 3.2 oz (81.7 kg) Height: 5' 5.5 (1.664 m) Physical Exam Vitals and nursing note reviewed. Constitutional: General: He is not in acute distress. Appearance: Normal appearance. He is obese. Genitourinary: Comments: Back is straight with normal lordotic curve, he has some mild tenderness to palpation of the midline over the spinous processes at the upper lumbar lower thoracic region. He has decreased flexion normal extension with pain on extreme extension and lateral flexion is normal. Lower extremities are completely normal. Neurological: Mental Status: He is alert. An electronic signature was used to authenticate this note. Ramiro Rosa MD 08/27/2022 12:36 PM documented in this [place] [id number] Telephone encounter Note* Telephone Encounter - YANNICK Jones CNP - 08/08/2022 9:05 AM EDT Reviewed chart. Refill appropriate. RX sent. [facility] [id number] Miscellaneous Notes* Telephone Encounter - YANNICK Jones CNP - 08/08/2022 9:05 AM EDT Reviewed chart. Refill appropriate. RX sent. * Telephone Encounter - Lexus Landrum MA - 08/08/2022 8:23 AM EDT Prescription Request: Last medication check: 10/12/21 Last physical exam: 04/19/22 Next scheduled appointment: 10/18/22 CSA on file (date): na Last urine drug screen: na Last date of refill on this medication 02/19/22 loratadine, folic acid, fenofibrate, multivitamin, omega 3 all 1month 5 refills 04/19/22 atorvastatin 90 day 1 refill documented in this [place] [id number] Telephone encounter Note* Telephone Encounter - Lexus Landrum MA - 08/08/2022 8:23 AM EDT Prescription Request: Last medication check: 10/12/21 Last physical exam: 04/19/22 Next scheduled appointment: 10/18/22 CSA on file (date): na Last urine drug screen: na Last date of refill on this medication 02/19/22 loratadine, folic acid, fenofibrate, multivitamin, omega 3 all 1month 5 refills 04/19/22 atorvastatin 90 day 1 refill [facility] [id number] Telephone encounter Note* Telephone Encounter - YANNICK Deal CNP - 07/09/2022 2:58 PM EST Rx sent. Follow up as scheduled. [facility] [id number] Miscellaneous Notes* Telephone Encounter - YANNICK Deal CNP - 07/09/2022 2:58 PM EST Rx sent. Follow up as scheduled. * Telephone Encounter - Lexus Landrum MA - 07/09/2022 7:23 AM EST Prescription Request: Last medication check: 10/12/21 Last physical exam: 04/19/22 Next scheduled appointment: 10/18/22 CSA on file (date): na Last urine drug screen: na Last date of refill on this medication 02/26/22 90 day 1 refill documented in this encounterSSt. [facility] [id number] Telephone encounter Note* Telephone Encounter - Lexus Landrum MA - 07/09/2022 7:23 AM EST Prescription Request: Last medication check: 10/12/21 Last physical exam: 04/19/22 Next scheduled appointment: 10/18/22 CSA on file (date): na Last urine drug screen: na Last date of refill on this medication 02/26/22 90 day 1 refill [facility] [id number] Telephone encounter Note* Telephone Encounter - Cindi Fisher - 05/04/2022 12:42 PM EST Iesha notified. [facility] [id number] Miscellaneous Notes* Telephone Encounter - Cindi Fisher - 05/04/2022 12:42 PM EST Iesha notified. * Telephone Encounter - YANNICK Jones CNP - 05/04/2022 12:24 PM EST The fax was reviewed. Blood pressures remain elevated. Increase losartan to 100 mg and monitor blood pressure daily, provide readings to office in 2 weeks. Will sent new rx * Telephone Encounter - Dmitry Benedict - 05/04/2022 11:05 AM EST URGENT: PATIENT WILL BE OUT OF BP MEDICATION THIS WEEKEND. 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 Patient will be out of Blood Pressure medication this weekend. Please advise / refill Losartan 50 MG if provider wishes to keep patient on this me dication per BP reading review. Please advise Best time of day caller can be reached: Available until 9pm Patient advised that office/PCP has 24-48 business hours to return their call: Yes documented in this encounterSSt. Mary's Medical [id number] Telephone encounter Note* Telephone Encounter - YANNICK Jones CNP - 05/04/2022 12:24 PM EST The fax was reviewed. Blood pressures remain elevated. Increase losartan to 100 mg and monitor blood pressure daily, provide readings to office in 2 weeks. Will sent new rx [facility] [id number] Telephone encounter Note* Telephone Encounter - Dmitry Benedict - 05/04/2022 11:05 AM EST URGENT: PATIENT WILL BE OUT OF BP MEDICATION THIS WEEKEND. 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 Patient will be out of Blood Pressure medication this weekend. Please advise / refill Losartan 50 MG if provider wishes to keep patient on this me dication per BP reading review. Please advise Best time of day caller can be reached: Available until 9pm Patient advised that office/PCP has 24-48 business hours to return their call: Yes [facility] complaint+Reason for visit Narrative* Chief Complaint COVID COVID TEST Reason for Visit COVID-19 [facility] Work Phone: Chief complaint+Reason for visit Narrative* Chief Complaint COVID COVID TEST HTN Reason for Visit COVID-19 [facility] Work Phone: Evaluation note* Diagnosis Onset Date Resolution Status COVID-19 acute [facility] Work Phone: Evaluation noteNo assessment information available [facility] Work Phone: Evaluation note* Diagnosis Acute midline low back pain without sciatica- Primary Acute midline low back pain without sciatica documented in this encounter [facility]* Diagnosis Acute midline low back pain without sciatica documented in this encounter [facility]* Diagnosis Essential hypertension- Primary Unspecified essential hypertension Hyperlipidemia LDL goal <100 Other and unspecified hyperlipidemia Recurrent major depressive disorder, in full remission (HCC) Acute midline low back pain without sciatica documented in this encounter [facility]* Diagnosis Seasonal allergic rhinitis due to pollen documented in this encounter [facility]* Diagnosis Toenail torn away- Primary [facility]* Diagnosis Seasonal allergic rhinitis due to pollen documented in this encounter [facility]* Diagnosis Annual physical exam- Primary Routine general medical examination at a health care facility Essential hypertension Unspecified essential hypertension Seasonal allergic rhinitis due to pollen Recurrent major depressive disorder, in full remission (HCC) Hyperlipidemia LDL goal <100 Other and unspecified hyperlipidemia Intellectual disability Unspecified mental retardation Screening for diabetes mellitus Screening for prostate cancer Special screening for malignant neoplasm of prostate Chronic midline low back pain without sciatica [facility]* Diagnosis Onset Date Resolution Status Urinary tract infection with hematuria acute [facility] Work Phone: Evaluation note* Diagnosis Essential hypertension- Primary Unspecified essential hypertension Hyperlipidemia LDL goal <100 Other and unspecified hyperlipidemia [facility]* Diagnosis Chronic midline low back pain without sciatica- Primary [facility] in this encounter [facility]* Diagnosis Essential hypertension- Primary Unspecified essential hypertension Hyperlipidemia LDL goal <100 Other and unspecified hyperlipidemia Recurrent major depressive disorder, in full remission (HCC) Seasonal allergic rhinitis due to pollen MILAGROS (obstructive sleep apnea) Obstructive sleep apnea (adult) (pediatric) Loud snoring Screening for colon cancer Special screening for malignant neoplasms, colon [facility] Diagnosis Hyperlipidemia LDL goal <100 Other and unspecified hyperlipidemia [facility] Diagnosis Seasonal allergic rhinitis due to pollen [facility] Diagnosis MILAGROS (obstructive sleep apnea) Obstructive sleep apnea (adult) (pediatric) Loud snoring [facility] Diagnosis Annual physical exam- Primary Routine general medical examination at a health care facility Essential hypertension Unspecified essential hypertension Seasonal allergic rhinitis due to pollen Hyperlipidemia LDL goal <100 Other and unspecified hyperlipidemia Recurrent major depressive disorder, in full remission (HCC) Intellectual disability Unspecified mental retardation Acute midline low back pain without sciatica- Primary Essential hypertension- Primary Unspecified essential hypertension Hyperlipidemia LDL goal <100 Other and unspecified hyperlipidemia Recurrent major depressive disorder, in full remission (HCC) Acute midline low back pain without sciatica Annual physical exam- Primary Routine general medical examination at a health care facility Essential hypertension Unspecified essential hypertension Seasonal allergic rhinitis due to pollen Recurrent major depressive disorder, in full remission (HCC) Hyperlipidemia LDL goal <100 Other and unspecified hyperlipidemia Intellectual disability Unspecified mental retardation Screening for diabetes mellitus Screening for prostate cancer Special screening for malignant neoplasm of prostate Chronic midline low back pain without sciatica Chronic midline low back pain without sciatica- Primary Essential hypertension- Primary Unspecified essential hypertension Hyperlipidemia LDL goal <100 Other and unspecified hyperlipidemia Recurrent major depressive disorder, in full remission (HCC) Seasonal allergic rhinitis due to pollen MILAGROS (obstructive sleep apnea) Obstructive sleep apnea (adult) (pediatric) Loud snoring Screening for colon cancer Special screening for malignant neoplasms, colon Annual physical exam- Primary Routine general medical examination at a health care facility Essential hypertension Unspecified essential hypertension Hyperlipidemia LDL goal <100 Other and unspecified hyperlipidemia Intellectual disability Unspecified mental retardation Recurrent major depressive disorder, in full remission (HCC) Seasonal allergic rhinitis due to pollen Loud snoring Screening for diabetes mellitus Screening for prostate cancer Special screening for malignant neoplasm of prostate [facility] Annual physical exam- Primary Routine general medical examination at a health care facility Essential hypertension Unspecified essential hypertension Seasonal allergic rhinitis due to pollen Hyperlipidemia LDL goal <100 Other and unspecified hyperlipidemia Recurrent major depressive disorder, in full remission (HCC) Intellectual disability Unspecified mental retardation Acute midline low back pain without sciatica- Primary Essential hypertension- Primary Unspecified essential hypertension Hyperlipidemia LDL goal <100 Other and unspecified hyperlipidemia Recurrent major depressive disorder, in full remission (HCC) Acute midline low back pain without sciatica Annual physical exam- Primary Routine general medical examination at a health care facility Essential hypertension Unspecified essential hypertension Seasonal allergic rhinitis due to pollen Recurrent major depressive disorder, in full remission (HCC) Hyperlipidemia LDL goal <100 Other and unspecified hyperlipidemia Intellectual disability Unspecified mental retardation Screening for diabetes mellitus Screening for prostate cancer Special screening for malignant neoplasm of prostate Chronic midline low back pain without sciatica Chronic midline low back pain without sciatica- Primary Essential hypertension- Primary Unspecified essential hypertension Hyperlipidemia LDL goal <100 Other and unspecified hyperlipidemia Recurrent major depressive disorder, in full remission (HCC) Seasonal allergic rhinitis due to pollen MILAGROS (obstructive sleep apnea) Obstructive sleep apnea (adult) (pediatric) Loud snoring Screening for colon cancer Special screening for malignant neoplasms, colon Annual physical exam- Primary Routine general medical examination at a health care facility Essential hypertension Unspecified essential hypertension Hyperlipidemia LDL goal <100 Other and unspecified hyperlipidemia Intellectual disability Unspecified mental retardation Recurrent major depressive disorder, in full remission (HCC) Seasonal allergic rhinitis due to pollen Loud snoring Screening for diabetes mellitus Screening for prostate cancer Special screening for malignant neoplasm of prostate Hyperlipidemia LDL goal <100 Other and unspecified hyperlipidemia [facility] Diagnosis Annual physical exam- Primary Routine general medical examination at a health care facility Essential hypertension Unspecified essential hypertension Seasonal allergic rhinitis due to pollen Hyperlipidemia LDL goal <100 Other and unspecified hyperlipidemia Recurrent major depressive disorder, in full remission (HCC) Intellectual disability Unspecified mental retardation Acute midline low back pain without sciatica- Primary Essential hypertension- Primary Unspecified essential hypertension Hyperlipidemia LDL goal <100 Other and unspecified hyperlipidemia Recurrent major depressive disorder, in full remission (HCC) Acute midline low back pain without sciatica Annual physical exam- Primary Routine general medical examination at a health care facility Essential hypertension Unspecified essential hypertension Seasonal allergic rhinitis due to pollen Recurrent major depressive disorder, in full remission (HCC) Hyperlipidemia LDL goal <100 Other and unspecified hyperlipidemia Intellectual disability Unspecified mental retardation Screening for diabetes mellitus Screening for prostate cancer Special screening for malignant neoplasm of prostate Chronic midline low back pain without sciatica Chronic midline low back pain without sciatica- Primary Essential hypertension- Primary Unspecified essential hypertension Hyperlipidemia LDL goal <100 Other and unspecified hyperlipidemia Recurrent major depressive disorder, in full remission (HCC) Seasonal allergic rhinitis due to pollen MILAGROS (obstructive sleep apnea) Obstructive sleep apnea (adult) (pediatric) Loud snoring Screening for colon cancer Special screening for malignant neoplasms, colon Annual physical exam- Primary Routine general medical examination at a health care facility Essential hypertension Unspecified essential hypertension Hyperlipidemia LDL goal <100 Other and unspecified hyperlipidemia Intellectual disability Unspecified mental retardation Recurrent major depressive disorder, in full remission (HCC) Seasonal allergic rhinitis due to pollen Loud snoring Screening for diabetes mellitus Screening for prostate cancer Special screening for malignant neoplasm of prostate Hyperlipidemia LDL goal <100 Other and unspecified hyperlipidemia [facility] Diagnosis Acute cystitis with hematuria- Primary Acute cystitis [facility] Diagnosis Annual physical exam- Primary Routine general medical examination at a health care facility Essential hypertension Unspecified essential hypertension Seasonal allergic rhinitis due to pollen Hyperlipidemia LDL goal <100 Other and unspecified hyperlipidemia Recurrent major depressive disorder, in full remission (HCC) Intellectual disability Unspecified mental retardation Acute midline low back pain without sciatica- Primary Essential hypertension- Primary Unspecified essential hypertension Hyperlipidemia LDL goal <100 Other and unspecified hyperlipidemia Recurrent major depressive disorder, in full remission (HCC) Acute midline low back pain without sciatica Annual physical exam- Primary Routine general medical examination at a health care facility Essential hypertension Unspecified essential hypertension Seasonal allergic rhinitis due to pollen Recurrent major depressive disorder, in full remission (HCC) Hyperlipidemia LDL goal <100 Other and unspecified hyperlipidemia Intellectual disability Unspecified mental retardation Screening for diabetes mellitus Screening for prostate cancer Special screening for malignant neoplasm of prostate Chronic midline low back pain without sciatica Chronic midline low back pain without sciatica- Primary Essential hypertension- Primary Unspecified essential hypertension Hyperlipidemia LDL goal <100 Other and unspecified hyperlipidemia Recurrent major depressive disorder, in full remission (HCC) Seasonal allergic rhinitis due to pollen MILAGROS (obstructive sleep apnea) Obstructive sleep apnea (adult) (pediatric) Loud snoring Screening for colon cancer Special screening for malignant neoplasms, colon Annual physical exam- Primary Routine general medical examination at a health care facility Essential hypertension Unspecified essential hypertension Hyperlipidemia LDL goal <100 Other and unspecified hyperlipidemia Intellectual disability Unspecified mental retardation Recurrent major depressive disorder, in full remission (HCC) Seasonal allergic rhinitis due to pollen Loud snoring Screening for diabetes mellitus Screening for prostate cancer Special screening for malignant neoplasm of prostate Hyperlipidemia LDL goal <100 Other and unspecified hyperlipidemia documented in this encounter [facility] for referral (narrative)No reason for referral [facility]WC[facility] Work Phone: Advance Directives No Advanced Directives Records Found Advance Directive Response Recorded Date/ Time Living Will No March 03 12:18pm Power of Pesticide Control Inspector No March 03, 2021 12:18pm Advance Directive Response Recorded Date/ Time Living Will No April 17, 2 022 11:27am Power of Pesticide Control Inspector No April 17, 2022 11:27am Advance Directive Response Recorded Date/ Time Living Will No April 17, 2 022 12:27pm Power of Pesticide Control Inspector No April 17, 2022 12:27pm Reason for Referral Specialty Diagnoses / Procedures Referred By Di cook Referred To Contact Physical Therapy Diagnoses Chronic midline low back pain without sciatica Procedures [place] OFFICE/OUTPATIENT [facility] MDM 60-74 MINUTES Ramiro Rosa MD [address] [facility] [facility] [place] [address] Referral ID Status Reason Start Date Expiration Date Visits Requested Visits Authorized [id number] Pending Review Eval and Treat 3 10/15/2023 99 99 Scheduling Instructions [facility] Specialty Diagnoses / Procedures Referred By Di cook Referred To Contact Sleep Medicine Diagnoses MILAGROS (obstructive sleep apnea) Loud snoring Procedures Home sleep test Ramiro Rosa MD [address] [facility], [facility] [place] [address] Referral ID Status Reason Start Date Expiration Date V isits Requested Visits Authorized [id number] Authorized 10/24/2023 10/18/2024 1 1 Specialty Diagnoses / Procedures Referred By Di cook Referred To Contact Gastroenterology Diagnoses Screening for colon cancer Procedures [place] OFFICE/OUTPATIENT [facility] MDM 60 MINUTES Ramiro Rosa MD [address] [place] [address], [facility] [place] [address] [address], [address] [place] [address] Referral ID Status Reason Start Date Expiration Date Visits Requested Visits Authorized [id number] Pending Review Specialty Services Required 10/24/2023 10/23/2024 1 1 Chief Complaint and Reason for Visit Chief Complaint URINARY COMPLAINTS/F LANK PAIN Reason for Visit Urinary tract infect ion with hematuria Chief Complaint URINARY COMPLAINTS/F LANK PAIN LOW BACK PAIN. RX HERE Reason for Visit Urinary tract infect ion with hematuria Summary Purpose Family History No Family History Records FoundNo Family History Records FoundNo Family History Records Found Additional Source Comments Goals (unrecognized section and content) Goals may be documented in a n alternate sectionGoals may be documented in an alternate sectionGoals may be documented in an alternate sectionGoals may be documented in an alternate sectionGoals may be documented in an alternate sectionGoals may be documented in an alternate section Reason for Visit (unrecogniz ed section and content) Reason Comments Med Refill Reason Comments Back Pain For last week and hwang lf Reason Comments Hyperlipidemia Hypertension Depression Tried to do PHQ9 but pt was not really understanding the questions Medication Check Reason Onset Date Comments Medication Problem 10/19/2022 nabumetone (R elafen) 500 MG tablet Reason Onset Date Comments Med Refill 12/07/2022 Reason Onset Date Comments Med Refill 01/08/2023 Reason Onset Date Comments Toe Injury 02/18/2023 Reason Comments Ingrown Toenail right big toenail fe ll off x 1:30am Reason Comments Annual Exam Health Maintenance Did not get a 4th [place] VID vaccine-only 3 Blood Work Reason Onset Date Comments Med Refill 06/07/2023 Reason Onset Date Comments Med Refill 07/02/2023 Reason Comments Back Pain Was better after phy sical therapy then pain is back Reason Comments Hypertension Hyperlipidemia Depression Medication Check 6 month Health Maintenance Hiv/hep c screening- refuseHep b vaccine- advised to go to pharmacy if wanting this Tdap vaccine-advised to go to pharmacy if wanting this Colonoscopy- agree Reason Onset Date Comments Med Refill 12/03/2023 Reason Onset Date Comments Results 01/17/2024 Release of Information 01/17/2024 Reason Onset Date Comments Med Refill 02/03/2024 Specialty Diagnoses / Procedures Referred By Contneto t Referred To Contact Sleep Medicine Diagnoses MILAGROS (obstructive sleep apnea) Loud snoring Procedures Home sleep test Ramiro oRsa MD [employer] [id number] Referral ID Status Reason Start Date Expiration Date Visits Re quested Visits Authorized [id number] Closed 10/24/2023 10/18/2024 1 1 Reason Onset Date Comments other 05/04/2022 BP readings for one week patient may need more meds Reason Comments Annual Exam Blood Work Health Maintenance 4th covid vaccine- n ot done Reason Onset Date Comments Med Refill 05/01/2024 Reason Onset Date Comments Med Refill 05/04/2024 Reason Onset Date Comments Med Refill 07/14/2024 Reason Onset Date Comments Med Refill 07/23/2024 Reason Onset Date Comments Med Refill 08/10/2024 Error (VOID this visit) 08/10/2024 Reason Onset Date Comments Med Refill 08/20/2024 Reason Comments Hematuria Reason Onset Date Comments Results 09/28/2024 Reason Onset Date Comments Med Refill 10/02/2024 Care Teams (unrecognized sec tion and content) Oncology Patient Navigator Relationship Specialty Start Date [place] [address] PCP - General 03/11/15 Team Status: Active Member Role Status Dates Dr. Ramiro Rosa MD Family Provider Active Dr. Ramiro Rosa MD Primary Care Provider Active Team Status: Inactive Member Role Status Dates Dr. Ramiro Rosa MD Primary Care Provider Active Dr. Eleni Borden MD Attending Provider Active Oncology Patient Navigator Relationship Specialty Start Date [place] [address] PCP - General 03/11/15 Oncology Patient Navigator Relationship Specialty Start Date End [place] [address] PCP - General 03/11/15 Oncology Patient Navigator Relationship Specialty Start Date End Date Ramiro Rosa MD [address] [place] [address] PCP - General 03/11/15 Oncology Patient Navigator Relationship Specialty Start Date End Date Ramiro Rosa MD [address] [place] [address] PCP - General 03/11/15 Oncology Patient Navigator Relationship Specialty Start Date End Date Ramiro Rosa MD [address] [place] [address] PCP - General 03/11/15 Oncology Patient Navigator Relationship Specialty Start Date End Date Ramiro Rosa MD [address] [place] [address] PCP - General 03/11/15 Oncology Patient Navigator Relationship Specialty Start Date End Date Ramiro Rosa MD [address] [facility] [place] [address] PCP - General 03/11/15 Oncology Patient Navigator Relationship Specialty Start Date End Date Ramiro Rosa [address] [facility] [place] [address] PCP - General Family Medicine 06/12/21 Oncology Patient Navigator Relationship Specialty Start Date End Date Ramiro Rosa MD [address] [facility] [place] [address] PCP - General 03/11/15 Oncology Patient Navigator Relationship Specialty Start Date End Date Ramiro Rosa MD [address] [facility] [place] [address] PCP - General 03/11/15 Oncology Patient Navigator Relationship Specialty Start Date End Date Ramiro Rosa MD [address] [place] [address] [place] [address] PCP - General 03/11/15 Team Status: Inactive Member Role Status Dates Dr. Ramiro Rosa MD Primary Care Provider, Referri ng Provider Active NORRIS Ramos Attending Provider Active Team Status: Inactive Member Role Status Dates Dr. Ramiro Rosa MD Primary Care Provider Active NORRIS Ramos Attending Provider, Referring Pr ovider Active Oncology Patient Navigator Relationship Specialty Start Date End Date Ramiro Rosa MD [address] [facility] [place] [address] PCP - General 03/11/15 Oncology Patient Navigator Relationship Specialty Start Date End Date Ramiro Rosa MD [address] [facility] [place] [address] PCP - General 03/11/15 Team Status: Inactive Member Role Status Dates Dr. Ramiro Rosa MD Primary Care Provider, Attendi Provider Active Oncology Patient Navigator Relationship Specialty Start Date End Date Ramiro Rosa MD [address] [facility] [place] [address] PCP - General 03/11/15 Oncology Patient Navigator Relationship Specialty Start Date End Date Ramiro Rosa MD [address] [facility] [place] [address] PCP - General 03/11/15 Oncology Patient Navigator Relationship Specialty Start Date End Date Ramiro Rosa MD [address] [facility] [place] [address] PCP - General 03/11/15 Oncology Patient Navigator Relationship Specialty Start Date End Date Ramiro Rosa MD [address] [facility] [place] [address] PCP - General 03/11/15 Oncology Patient Navigator Relationship Specialty Start Date End Date Ramiro Rosa MD [address] [facility] [place] [address] PCP - General 03/11/15 Oncology Patient Navigator Relationship Specialty Start Date End Date Ramiro Rosa MD [address] [facility] [place] [address] PCP - General 03/11/15 Oncology Patient Navigator Relationship Specialty Start Date End Date Ramiro Rosa MD [address] [facility] [place] [address] PCP - General 03/11/15 Oncology Patient Navigator Relationship Specialty Start Date End Date Ramiro Rosa MD [address] [facility] [place] [address] PCP - General 03/11/15 Oncology Patient Navigator Relationship Specialty Start Date End Date Ramiro Rosa MD [address] [facility] [place] [address] PCP - General 03/11/15 Oncology Patient Navigator Relationship Specialty Start Date End Date Ramiro Rosa MD [address] [place] [address] PCP - General 03/11/15 Oncology Patient Navigator Relationship Specialty Start Date End Date [place]ami[place] Rosa [place] [address] PCP - General 03/11/15 Oncology Patient Navigator Relationship Specialty Start Date End Date Ramiro Rosa MD [address] [place] [address] PCP - General 03/11/15 Oncology Patient Navigator Relationship Specialty Start Date End Date Ramiro Rosa MD [address] [place] [address] PCP - General 03/11/15 Oncology Patient Navigator Relationship Specialty Start Date End Date Ramiro Rosa MD [address] [place] [address] PCP - General 03/11/15 Team Status: Inactive Member Role Status Dates Dr. Ramiro Rosa MD Primary Care Provider Active Start: June 26, 2024 End: June 26, 2024 Dr. Dajuan HINDS MD Attending Provider Active Start: June 26, 2024 End: June 26, 2024 Dr. Dajuan HINDS MD Referring Provider Active Start: June 26, 2024 End: June 26, 2024 Oncology Patient Navigator Relationship Specialty Start Date End Date Ramiro Rosa MD [address] [place] [address] PCP - General 03/11/15 Oncology Patient Navigator Relationship Specialty Start Date End Date Ramiro Rosa [address] [place], [place] [id number] PCP - General Family Medicine 06/12/21 Oncology Patient Navigator Relationship Specialty Start Date End Date Ramiro Rosa [address] [place] [address] PCP - General Family Medicine 06/12/21 Source Comments (unrecognize d section and content) In the event this informatio n is protected by the Federal Confidentiality of Alcohol and Drug Abuse Patient Records regulations: The Federal rules restrict any use of the information to criminally investigate or prosecute any alcohol or drug abuse patient.[facility] the event this information is protected by the Federal Confidentiality of Alcohol and Drug Abuse Patient Records regulations: The Federal rules restrict any use of the information to criminally investigate or prosecute any alcohol or drug abuse patient.[facility] System[facility] the event this information is protected by the Federal Confidentiality of Alcohol and Drug Abuse Patient Records regulations: The Federal rules restrict any use of the information to criminally investigate or prosecute any alcohol or drug abuse patient.[facility] (unrecognized sect ion and content) No Status Records FoundNo Status Records FoundNo Status Records Found INFORMATION SOURCE (unrecogn ized section and content) DATE CREATED AUTHOR 07/11/2024 [facility] DATE CREATED AUTHOR AUTHOR'S ORGANIZ ATION 10/02/2024 [facility] DATE CREATED AUTHOR AUTHOR'S ORGANIZ ATION 10/04/2024 [facility] FOR RECORDS PERTAINING TO PATIENTS WHO ARE OR HAVE BEEN ENROLLED IN A CHEMICAL DEPENDENCY/SUBSTANCEABUSE PROGRAM, SOME INFORMATION MAY BE OMITTED. This clinical summary was aggregated from multiple sources. Caution should be exercised in using it in the provision of clinical care. This summary normalizes information from multiple sources, and as a consequence, information in this document may materially change the coding, format and clinical context of patient data. In addition, data may be omitted in some cases. CLINICAL DECISIONS SHOULD BE BASED ON THE PRIMARY CLINICAL RECORDS. [facility] [facility]. provides no warranty or guarantee of the accuracy or completeness of information in this document.
--- OUTSIDE RECORDS SUMMARY | 2024-10-08 22:19 | XMS RPT_ITS | CCD ---
Author Organization [facility] CliniSyia Care Team Providers Care Irrigation District Manager Name Role Phone Dr. Ramiro Rosa Primary Care Provider Dr. Ramiro Rosa Referring Provider NORRIS Calvillo Attending Provider [phone] NORRIS Isidro Attending Provider Ramiro Rosa MD Primary Care Provider Ramiro Rosa MD Primary Care Provider Ramiro Rosa Primary Care Provider Dr. Ramiro Rosa Primary Care Provider Dr. Ramiro Rosa Referring Provider [phone] NORRIS Isidro Attending Provider Dr. Ramiro Rosa Primary Care Provider Dr. Ramiro Rosa Referring Provider [phone] NORRIS Isidro Attending Provider Ramiro Rosa Primary Care Unavailable Ramiro Rosa Referring Unavailable Friend, Michael Consulting Unavailable Friend, Michael Attending Unavailable Moe, Ramiro Primary Care Unavailable Fanta Quiroga Attending Unavailable Moe, Ramiro Primary Care Unavailable Moe, Ramiro Attending Unavailable Moe, Ramiro Primary Care Unavailable Dajuan Metz Attending Unavailable Moe, Ramiro Primary Care Unavailable Dajuan Metz Attending Unavailable Dajuan Metz Referring Unavailable Ome, Ramiro Primary Care Unavailable Moe, Ramiro Referring Unavailable Friend, Michael Attending Unavailable Dr. Ramiro Rosa MD Primary Care Provider Dr. Dajuan Morrison MD Attending Provider Dr. Dajuan Dickson MD Referring Provider Ramiro Ware Primary Care Provider [phone] SEAN VERDUZCO Attending Unavailable SELF Referring Unavailable [...] (1 source) risperiDONE Drug Allergy 5 Anxiety [facility] (10 sources) risperiDONE; Translations: [RISPERIDONE] Drug Allergy 5 Mental Status Change [facility] (20 sources) risperiDONE Drug Allergy 5 [facility] (1 source) risperiDONE Drug Allergy 4 [facility] Repository Medications Current Medications Medication Drug Class(es) [...] Polymyxin-class Antibacterial Start: 11-05-2023 Neomycin-Bacitracnzn -Polymyxnb (Neosporin (Skh-Ejk-Pbxth)) 3.5mg-400 unit- 5,000 unit/gram ointment Active 1 [...] on above: Take 1 capsule by mo [facility] four times daily for 5 days. [...] Comment on above: Take 1 tablet [facility]. docosahexaenoic acid [...] Start: 07-08-2018 take 1 capsule by mo [facility] once daily Loratadine (Claritin) 10 MG [...] tablet by mouth daily. 0 02/19/2022 Active Yxcajkkieeqq-Lhvv-Sykgw Acid (Certavite-Antioxidant) 18-400 mg-mcg tablet (3 sources) Start: 05-29-2023 Multivitamin-I mony-Folic Acid (Certavite-Antioxidant) 18-400 mg-mcg tablet Active 1 {tbl} PO DAILY May 29, 2023 12:00am Start: 05-29-2023 take 1 tablet by marcell th once daily Hpbthiobsylu-Zrmm-Jwznz Acid (Certavite-Antioxidant) 18-400 mg-mcg tablet Active 1 TABLET PO DAILY May 29, 2023 1:00am Start: 05-29-2023 take 1 tablet by marcell th once daily Knjpnipnpeaw-Fuxy-Jikdi Acid (Certavite-Antioxidant) 18-400 mg-mcg tablet Active 1 [...] Take 500 mg by mouth . omega 3-hfm-okm-fish oil 300 mg-100 mg- 150 mg-1,000 mg cap (3 sources) Start: 02-19-2022 take 3 capsules by mouth once daily omega 2-tst-mfx-fish oil 300 mg-100 mg- 150 mg-1,000 mg cap TAKE 3 CAPSULES (3000MG) BY MOUTH ONCE EVERY DAY 02/19/2022 Active Start: 02-19-2022 take 3 capsules by out once daily omega 6-tiq-wqa-fish oil 300 mg-100 mg- 150 mg-1,000 mg cap TAKE 3 CAPSULES (3000MG) BY MOUTH ONCE EVERY DAY 0 02/19/2022 Active Comment on above: TAKE 3 CAPSULES (300 0MG) BY MOUTH ONCE EVERY DAY [place]-3 Fatty Acids-Fish Oil (Fish Oil 1,000 Mg Capsule) 1 EACH capsule (6 sources) Start: 07-08-2018 [place]-3 Fatty Acids-Fish Oil (Fish Oil 1,000 Mg Capsule) 1 EACH capsule Active 3 NMA PO DAILY July 08, 2018 12:00am Start: 07-08-2018 [place]-3 Fatty Acids-Fish Oil (Fish Oil 1,000 Mg Capsule) 1 EACH capsule Active 3 EACH PO DAILY July 08, 2018 12:00am Start: 07-08-2018 [place]-3 Fatty Acids-Fish Oil (Fish Oil 1,000 Mg [...] MARCELL TWICE DAILY (7AM,8PM) polyethylene glycol 3350 88529 mg powder for oral solution (1 source) [...] 08, 2022 11:00pm May 29, 2023 10:07am Uvwhpcxd-Bqf-Un-Lycop en-Lutein (Certavite Sr-Antioxidant Tab) 1 EACH tablet (6 sources) Start: 07-09-19 End: 05-29-19 Xzsxawlb-Tsc-Kj-Lyco pen-Lutein (Certavite Sr-Antioxidant Tab) 1 EACH tablet Discontinued 1 NMA PO DAILY July 08, 2018 12:00am May 29, 2023 10:07am Start: 07-08-2018 End: 05-29-2023 Wxoigcae-Tqd-Jk-Lycopen-Lute in (Certavite Sr-Antioxidant Tab) 1 EACH tablet Discontinued 1 EACH PO DAILY July 08, 2018 1:00am May 29, 2023 11:07am Start: 07-08-2018 End: 05-29-2023 Ergieqlw-Wmm-Rf-Lycopen-Lute in (Certavite Sr-Antioxidant Tab) 1 EACH tablet Discontinued 1 EACH PO DAILY July 08, 2018 12:00am May 29, 2023 10:07am Start: 07-08-2018 Vnefvyrs-Clo-Q t-Wiiujuz-Jlarao (Certavite Sr-Antioxidant Tab) 1 EACH tablet Active 1 EACH PO DAILY July 08, 2018 12:00am Start: 07-08-2018 Newzslxp-Hem-B z-Mohmugq-Wtaxvd (Certavite Sr-Antioxidant Tab) 1 EACH tablet Active [...] chart. Refi ll appropriate. RX sent. Normal [facility] 36 Pharmacy sent over f ax requesting refills for a 31 day supply with 11 refills OR 93 day supply with 3 refills. I pended a 93 day supply with 1 refill. Next appt: 10/15/2024 Normal [facility] Bacteria Ur Culton Bacteria identified Cx Nom (U) ORGANISM ID: 1 <10,000 CFU/ml Normal urogenital princess Normal [facility] Comment on above: Performed By: #### 6 30-4 #### [facility] CLIA [id number] [address] [place] [address] [place] [address] [place] CNOVon 09-27-2024 CNOV Office Visit (UCWSTR ) CHAN BURCIAGA ([id number]) 1980 M Date Time Provider Department 09/27/24 10:00 AM SEAN VERDUZCO [facility] During your visit today, we recorded the following information about you: Temperature Pulse Blood pressure Weight 97.1 degrees 96/minute 110/66 86.2 kg Sean Verduzco APRN.[facility] 09/27/2024 10:14 AM Signed [facility] [employer] [...] of care. This note was generated using [employer] software. It may contain errors in wording, punctuation, or spelling. Sean Verduzco APRN.[facility] History and Record Review Clinical information obtained from an independent historian. History obtained from or confirmed by: other (see comments) and parent. External record(s) reviewed: prior outpatient record. Disposition The patient was discharged. Procedures Referring Provider: SELF [200] Allergies As of Date: 09/27/2024 Noted Allergy Reaction RISPERIDONE 03/10/2015 1 - Mental Status Change Date Reviewed: 09/27/2024 Reviewed by: Sean Verduzco APRN.COMBINE OPERATOR - Fully Assessed Reason for Visit: Hematuria [335] Primary Visit Diagnosis:Acute cystitis with hematuria [N30.01] Order(s):BACTERIAL CULTURE, URINE [SQURCUL] Order #: [id number]. #:[id number] UA DIP, URINE (POC) [[id number]] Order #: [id number] UA DIP, URINE (POC) [[id number]] Order #: [id number]. #:[id number] -LAB cephALEXin (KEFLEX) 500 mg capsuleTake 1 [...] BY M (more content not included)... Normal [facility] UA DIP, URINE (POC)on 2024 BILIRUBIN UA (POCT) Small Abnormal Negative [facility] CLARITY UA (POCT) Cloudy [facility] COLOR UA (POCT) [facility] GLUCOSE UA (POCT) Negative Negative mg/dL [facility] Hemoglobin Ql (U) Large Abnormal Negative [facility] Interpretation and review of laboratory results Abnormal [facility] KETONE UA (POCT) Negative Negative mg/dL [facility] LEUKOCYTES UA (POCT) Negative Negative [facility] NITRITE UA (POCT) Negative Negative [facility] PH UA (POCT) 6.5 4.5 - 8.0 [facility] Protein Ql (U) 100 mg/dL Abnormal Negative [facility] SPECIFIC GRAVITY UA (POCT) 1.02 1.005 - 1.030 [facility] UROBILINOGEN UA (POCT) 1 Lin l E.U./dL [facility] Location:[address], [place], [address] [facility] POINT OF CARE [facility] 36on 09-24-2024 36 Medication name: nab umetone [...] medication tab): 07/23/24 Updated/Validated preferred pharmacy: Yes [facility] ([facility]) - [facility] [address] [facility] [address] [address] Patient instructed to contact the pharmacy prior to picking up the medication: Yes [place] [id number] 36 Notified Brad. [place] [address] Yes, he is still see ing Dr. Rosa and yes I will continue to sign for his home care [place] [address] Name of caller: Brad ([facility]) Contact phone number: [phone] Relationship to Patient: na Provider: Dr. Rosa Practice: [facility] Chief Complaint/Reason for Call: Calling to advise Pt will have re-cert for shelter next week. Needs to verify that Pt is still seeing Dr. Rosa and that Dr. Rosa will continue to follow Pt for services. Please advise Best time of day caller can be reached: Any AM Patient advised that office/PCP has 24-48 business hours to return their call: Yes [facility] 3609-04-2024 36 Rx sent. Follow up a s scheduled. [place] [address] Received fax for ref ill request. Pended. [facility] 3608-20-2024 36 Prescription Request : Last medication check: 10/24/2023 Last physical exam: 04/20/2024 Next scheduled appointment: 10/15/2024 CSA on file (date): N/A Last urine drug screen: N/A Last date of refill on this medication 05/01/[address] 08-10-2024 [address] 07-23-2024 36 Medication name: nab umetone [...] prior to picking up the medication: Yes [address] 07-15-2024 36 Notified Brda. [place] [address] Okay to continue, ye s we will sign and follow [place] [address] Name of caller: Brad Contact phone number: [phone] Relationship to Patient: [facility] Provider: Dr. Rosa Practice: [facility] Chief Complaint/Reason for Call: Brad called and stated Chan is doing fine and is asking to re certify patient for shelter to be continued and is asking to have a call back by 07/17/24. Brad is asking to follow and sign the plan of care. Please advise. Best time of day caller can be reached: any Patient advised that office/PCP has 24-48 business hours to return their call: Yes [address] 07-14-2024 36 Medication name: doxazosin (Cardura) [...] to picking up the medication: Yes Normal [facility] Trileptal-Oxcarbazepineon OXCARBAZEPINE 31 ug/mL Normal 10-35 [facility] Comment on above: Result Comment: This test was developed and its performance characteristics determined by [facility]. It has not been cleared or approved by the Food and Drug Administration. Detection Limit = 1 Performed at: [address] [id number] Senior Warehouse Clerk: Andra Sawant MD, Phone: [phone] Performed By: #### L 3800.1700, L100.0500, L500.4050 #### [facility] [address] [place], [address] Albumin to globulin ratioOrd ered By: Dajuan Morrison on 06-26-2024 Albumin/Globulin [Mass ratio] 1.2 {ratio} 0.9-2.4 [facility] Bilirubin, totalOrdered By: Dajuan Morrison on 06-26-2024 Bilirubin [Mass/Vol] 0.50 mg/dL 0.20-1.00 [facility] Comment on above: For patients on eltr ombopag therapy, use of Dimension [place] TBIL is not recommended. Blood urea nitrogen (BUN)/cr eatinine ratioOrdered By: Dajuan Morrison on 06-26-2024 Urea nitrogen/Creatinine [Mass ratio] 15.7 mg/mg 10-20 [facility] CBC-Complete Blood Cnt No Di ffon 06-26-2024 Erythrocyte distribution width (RBC) [Ratio] 13.3 % Normal 11.6-14.6 [facility] Comment on above: Performed By: #### L 3800.1700, L100.0500, L500.4050 #### [facility] [address] [place], [address] Hematocrit (Bld) [Volume fraction] 42.3 % Normal 40-54 [facility] Comment on above: Performed By: #### L 3800.1700, L100.0500, L500.4050 #### [facility] [address] [place], [address] Hemoglobin (Bld) [Mass/Vol] 14.0 g/dL Normal 13.0-16.5 [facility] Comment on above: Performed By: #### L 3800.1700, L100.0500, L500.4050 #### [facility] [address] [place], [address] MCH (RBC) [Entitic mass] 28.6 pg Normal 27.0-32.0 [facility] Comment on above: Performed By: #### L 3800.1700, L100.0500, L500.4050 #### [facility] [address] [place], [address] MCHC (RBC) [Mass/Vol] 33.1 g/dL Normal 32-36 [facility] Comment on above: Performed By: #### L 3800.1700, L100.0500, L500.4050 #### [facility] [address] [place], [address] MCV (RBC) [Entitic vol] 86.5 fL Normal 80-94 [facility] Comment on above: Performed By: #### L 3800.1700, L100.0500, L500.4050 #### [facility] [address] [place], [address] Platelet mean volume (Bld) [Entitic vol] 9.3 fL Normal 6.2-12.0 [facility] Comment on above: Performed By: #### L 3800.1700, L100.0500, L500.4050 #### [facility] [address] [place], [address] Platelets (Bld) [#/Vol] 324 10*3/uL Normal 150-450 [facility] Comment on above: Performed By: #### L 3800.1700, L100.0500, L500.4050 #### [facility] [address] [place], [address] RBC (Bld) [#/Vol] 4.89 10*6/uL Normal 4.6-6.2 [facility] Comment on above: Performed By: #### L 3800.1700, L100.0500, L500.4050 #### [facility] [address] [place], [address] RDW SD 42.1 fl Normal 35.1-43.9 [facility] Comment on above: Performed By: #### L 3800.1700, L100.0500, L500.4050 #### [facility] [address] [place], [address] WBC (Bld) [#/Vol] 9.2 10*3/uL Normal 4.4-11.0 [facility] Comment on above: Performed By: #### L 3800.1700, L100.0500, L500.4050 #### [facility] [address] [place], [address] Carbon dioxide measurementOr dered By: Dajuan Morrison on 06-26-2024 CO2 [Moles/Vol] 23.0 mmol/L 21.0-32.0 [facility] Chloride measurementOrdered By: Dajuan Morrison on 06-26-2024 Chloride [Moles/Vol] 107 mmol/L 98-107 [facility] Comprehensive Metabolic Prof ilon 06-26-2024 Albumin [Mass/Vol] 3.7 g/dL Normal 3.2-5.0 [facility] Comment on above: Performed By: #### L 3800.1700, L100.0500, L500.4050 #### [facility] [address] [place], [address] Albumin/Globulin [Mass ratio] 1.2 {ratio} Normal 0.9-2.4 [facility] Comment on above: Performed By: #### L 3800.1700, L100.0500, L500.4050 #### [facility] [address] [place], [address] ALK P 63 U/L Normal 45-117 [facility] Comment on above: Performed By: #### L 3800.1700, L100.0500, L500.4050 #### [facility] [address] [place], [address] ALT [Catalytic activity/Vol] 99 U/L High 16-61 [facility] Comment on above: Performed By: #### L 3800.1700, L100.0500, L500.4050 #### [facility] [address] [place], [address] AST [Catalytic activity/Vol] 41 U/L High 15-37 [facility] Comment on above: Performed By: #### L 3800.1700, L100.0500, L500.4050 #### [facility] [address] [place], [address] Bilirubin [Mass/Vol] 0.50 mg/dL Normal 0.20-1.00 [facility] Comment on above: Result Comment: For patients on eltrombopag therapy, use of Dimension [place] TBIL is not recommended. Performed By: #### L 3800.1700, L100.0500, L500.4050 #### [facility] [address] [place], [address] BUN/CRE 15.7 RATIO Normal 10-20 [facility] Comment on above: Performed By: #### L 3800.1700, L100.0500, L500.4050 #### [facility] [address] [place], [address] CA,Total 9.4 mg/dL Normal 8.5-10.1 [facility] Comment on above: Performed By: #### L 3800.1700, L100.0500, L500.4050 #### [facility] [address] [place], [address] Chloride [Moles/Vol] 107 mmol/L Normal 98-107 [facility] Comment on above: Performed By: #### L 3800.1700, L100.0500, L500.4050 #### [facility] [address] [place], [address] CO2 [Moles/Vol] 23.0 mmol/L Normal 21.0-32.0 [facility] Comment on above: Performed By: #### L 3800.1700, L100.0500, L500.4050 #### [facility] [address] [place], [address] Creatinine [Mass/Vol] 1.08 mg/dL Normal 0.70-1.30 [facility] Comment on above: Result Comment: The validity of the calculated GFR GFRAA in patients over 70 years has not been determined. Clinical correlation is essential. Performed By: #### L 3800.1700, L100.0500, L500.4050 #### [facility] [address] [place], [address] EST GFR - AA 95 mL/min Normal >60 [facility] Comment on above: Result Comment: Afri can Samoan GFR Calc Performed By: #### L 3800.1700, L100.0500, L500.4050 #### [facility] [address] [place], [address] GAP 8 Normal 5-15 [facility] Comment on above: Performed By: #### L 3800.1700, L100.0500, L500.4050 #### [facility] [address] [place], [address] GFR/1.73 sq M.predicted among non-blacks MDRD (S/P/Bld) [Vol rate/Area] 78 mL/min/{1.73_m2} Normal >60 [facility] Comment on above: Result Comment: Non- GFR Calc Performed By: #### L 3800.1700, L100.0500, L500.4050 #### [facility] [address] [place], [address] Globulin (S) [Mass/Vol] 3.2 g/dL Normal 2.2-4.2 [facility] Comment on above: Performed By: #### L 3800.1700, L100.0500, L500.4050 #### [facility] [address] [place], [address] Glucose [Mass/Vol] 107 mg/dL High 74-106 [facility] Comment on above: Result Comment: Fast ing Glucose result from 100 to 125 mg/dL suggests IMPAIRED HOMEOSTASIS per A.D.A. criteria. Performed By: #### L 3800.1700, L100.0500, L500.4050 #### [facility] [address] [place], [address] Potassium [Moles/Vol] 3.8 mmol/L Normal 3.5-5.1 [facility] Comment on above: Performed By: #### L 3800.1700, L100.0500, L500.4050 #### [facility] [address] [place], [address] Sodium [Moles/Vol] 138 mmol/L Normal 136-145 [facility] Comment on above: Performed By: #### L 3800.1700, L100.0500, L500.4050 #### [facility] [address] [place], [address] T PROT 6.9 g/dL Normal 6.4-8.2 [facility] Comment on above: Performed By: #### L 3800.1700, L100.0500, L500.4050 #### [facility] [address] [place], [address] Urea nitrogen [Mass/Vol] 17 mg/dL Normal 7-18 [facility] Comment on above: Performed By: #### L 3800.1700, L100.0500, L500.4050 #### [facility] [address] [place], [address] Erythrocyte distribution wid th ratioOrdered By: Dajuan Morrison on 06-26-2024 Erythrocyte distribution width (RBC) [Ratio] 13.3 % 11.6-14.6 [facility] Erythrocyte distribution wid th standard deviationOrdered By: Dajuan Morrison on 06-26-2024 Erythrocyte distribution width (RBC) [Entitic vol] 42.1 fL 35.1-43.9 [facility] Estimated glomerular filtrat ion rate (GFR) AmericanOrdered By: Dajuan Morrison on 06-26-2024 Estimated GFR (MDRD) Amer 95 mL/min >60 [facility] Comment on above: GFR Calc Glomerular filtration rate ( GFR) estimationOrdered By: Dajuan Morrison on 06-26-2024 Estimated GFR (MDRD) Non-Af Amer 78 mL/min >60 [facility] Comment on above: Non- GFR Calc Glucose measurementOrdered B y: Dajuan Morrison on 06-26-2024 Glucose [Mass/Vol] 107 mg/dL High 74-106 [facility] Comment on above: Fasting Glucose resu lt from 100 to 125 mg/dL suggests IMPAIRED HOMEOSTASIS per A.D.A. criteria. Hematocrit Auto (Bld) [Volum e fraction]Ordered By: Dajuan Morrison on 06-26-2024 Hematocrit (Bld) [Volume fraction] 42.3 % 40-54 [facility] Hemoglobin measurementOrdere d By: Dajuan Morrison on 06-26-2024 Hemoglobin (Bld) [Mass/Vol] 14.0 g/dL 13.0-16.5 [facility] - Chemistry and C hemistry - challengeOrdered By: Dajuan Morrison on 06-26-2024 AST [Catalytic activity/Vol] 41 U/L High 15-37 [facility] MCV (mean corpuscular volume ) determinationOrdered By: Dajuan Morrison on 06-26-2024 MCV (RBC) [Entitic vol] 86.5 fL 80-94 [facility] Mean corpuscular hemoglobin (MCH) determinationOrdered By: Dajuan Morrison on 06-26-2024 MCH (RBC) [Entitic mass] 28.6 pg 27.0-32.0 [facility] Mean corpuscular hemoglobin concentration (MCHC) determinationOrdered By: Dajuan Morrison on 06-26-2024 MCHC (RBC) [Mass/Vol] 33.1 g/dL 32-36 [facility] Mean platelet volume determi nationOrdered By: Dajuan Morrison on 06-26-2024 Platelet mean volume (Bld) [Entitic vol] 9.3 fL 6.2-12.0 [facility] OXcarbazepine [Mass/Vol]Orde red By: Dajuan Morrison on 06-26-2024 Oxcarbazepine Level 31 ug/mL 10-35 [facility] Comment on above: This test was develo ped and its performance characteristicsdetermined by [employer]. It has not been cleared orapproved by the Food and Drug Administration. Detection Limit = 1Performed at: [facility] [place] [address] [place], [place] [id number] Director: Andra Sawant MD, Phone: [phone] Platelet countOrdered By: Mary Morrison on 06-26-2024 Platelets (Bld) [#/Vol] 324 10*3/uL 150-450 [facility] Potassium measurementOrdered By: Dajuan Morrison on 06-26-2024 Potassium [Moles/Vol] 3.8 mmol/L 3.5-5.1 [facility] RBC Auto (Bld) [#/Vol]Ordere d By: Dajuan Morrison on 06-26-2024 RBC (Bld) [#/Vol] 4.89 10*6/uL 4.6-6.2 [facility] Serum anion gap measurementO rdered By: Dajuan Morrison on 06-26-2024 Anion gap [Moles/Vol] 8 mmol/L 5-15 [facility] Serum globulin measurementOr dered By: Dajuan Morrison on 06-26-2024 Globulin (S) [Mass/Vol] 3.2 g/dL 2.2-4.2 [facility] Serum or plasma alanine rousseau otransferase (ALT) measurementOrdered By: Dajuan Morrison on 06-26-2024 ALT [Catalytic activity/Vol] 99 U/L High 16-61 [facility] Serum or plasma albumin ashlee urement (mass/volume)Ordered By: Dajuan Morrison on 06-26-2024 Albumin [Mass/Vol] 3.7 g/dL 3.2-5.0 [facility] Serum or plasma alkaline monica sphatase measurementOrdered By: Dajuan Morrison on 06-26-2024 ALP [Catalytic activity/Vol] 63 U/L 45-117 [facility] Serum or plasma calcium ashlee urement (mass/volume)Ordered By: Dajuan Morrison on 06-26-2024 Calcium [Mass/Vol] 9.4 mg/dL 8.5-10.1 [facility] Serum or plasma creatinine m easurement (mass/volume)Ordered By: Dajuan Morrison on 06-26-2024 Creatinine [Mass/Vol] 1.08 mg/dL 0.70-1.30 [facility] Comment on above: The validity of the calculated GFR & GFRAA in patients over 70 years has not been determined. Clinical correlation is essential. Serum or plasma urea nitroge n measurement (mass/volume)Ordered By: Dajuan Morrison on 06-26-2024 Urea nitrogen [Mass/Vol] 17 mg/dL 7-18 [facility] Sodium levelOrdered By: Cricket Morrison on 06-26-2024 Sodium [Moles/Vol] 138 mmol/L 136-145 [facility] Total proteinOrdered By: Juvenal Morrison on 06-26-2024 Protein [Mass/Vol] 6.9 g/dL 6.4-8.2 [facility] White blood cell (WBC) count Ordered By: Dajuan Morrison on 06-26-2024 WBC (Bld) [#/Vol] 9.2 10*3/uL 4.4-11.0 [facility] 36on 06-23-2024 36 Prescription Request : Last medication check: 10/24/2023 Last physical exam: 04/20/2024 Next scheduled appointment: 10/20/2024 Last date of refill on this medication: 06/04/23 [facility] 36on 05-04-2024 36 Reviewed chart. Refi ll appropriate. RX sent. [facility] 36 [facility] requesting refill for Folic Acid 400mcg for 9 days w/1 refill. Prescription Request: Last medication check: 10/24/2023 Last physical exam: 04/20/2024 Next scheduled appointment: 10/20/2024 Last date of refill on this medication: 12/03/2023 [facility] 36on 05-01-2024 36 Reviewed chart. Refi ll appropriate. RX sent. [facility] 36 Prescription Request : Last medication check: 10/24/23 Last physical exam: 04/20/24 Next scheduled appointment: 10/20/24 Last date of refill on this medication 12/03/23 90 day 1 refill [facility] Office Visiton 04-20-2024 Follow-up visit [id number] Cb Burciaga 1980 M Date Provider Department Center 04/20/2024 [id number] Family History Family Status - Relation Status Age at Mother Father Alive Level of Service:70645 DE PERIODIC PREVENTIVE MED EST PATIENT 40-64YRS Reason for Visit and Comments: Annual Exam [83] Blood Work [828772] Health Maintenance [872] - 4th covid vaccine- not done [facility] Progress Noteon 04-20-2024 Progress Note Stable, continue Foster nase and Claritin. 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 He has hypertension and his blood pressure [...] note. Ramiro Rosa MD 04/20/2024 12:50 PM [facility] Progress Note Patient verified by last name and date of . [facility] 36on 04-17-2024 36 lm to pre-visit plan for appointment with dr Rosa on 04/20/24 11am. Please ask patient to arrive 15 minutes early with Photo ID, insurance card Fasting: yes Put call through to office for pvp [facility] 36on 04-06-2024 36 Reviewed chart. Refi ll appropriate. RX sent. [facility] 36 Prescription Request : Last medication check: 10/24/2023 Last physical exam: 04/18/2023 Next scheduled appointment: 04/20/2024 Last date of refill on this medication: 11/12/2023 [facility] 36on 03-20-2024 36 Notified on angela luo. [facility] 36 Will follow patient. Thank you. [facility] 36 Name of caller: Brad Contact phone number: [phone] Relationship to Patient: [facility] Provider: Dr. Rosa Practice: [facility] [...] business hours to return their call: Yes [facility] CBC W/Diff, Automatedon 02-03 Absolute Lymph 1.76 X10 3/uL Normal 0.83-4.51 [facility] Comment on above: Performed By: #### L 100.0100, L500.4050 #### [facility] Laboratory [address] [place], [address] Absolute Neut 9.0 X10 3/uL High 2.0-7.7 [facility] Comment on above: Performed By: #### L 100.0100, L500.4050 #### [facility] [address] [place], [address] Basophils/100 WBC (Bld) 0.5 % Normal 0-1 [facility] Comment on above: Performed By: #### L 100.0100, L500.4050 #### [facility] [address] [place], [address] Eosinophils/100 WBC (Bld) 4.6 % Normal 0-5 [facility] Comment on above: Performed By: #### L 100.0100, L500.4050 #### [facility] [address] [place], [address] Erythrocyte distribution width (RBC) [Ratio] 13.4 % Normal 11.6-14.6 [facility] Comment on above: Performed By: #### L 100.0100, L500.4050 #### [facility] [address] [place], [address] Hematocrit (Bld) [Volume fraction] 42.4 % Normal 40-54 [facility] Comment on above: Performed By: #### L 100.0100, L500.4050 #### [facility] [address] [place], [address] Hemoglobin (Bld) [Mass/Vol] 14.0 g/dL Normal 13.0-16.5 [facility] Comment on above: Performed By: #### L 100.0100, L500.4050 #### [facility] [address] [place], [address] IG% 0.600 Normal 0.0-0.9 [facility] Comment on above: Result Comment: IG% - Immature Granulocytes (promyelocytes, myelocytes and metamyelocytes) > 1% indicates that a LEFT SHIFT is Present. Performed By: #### L 100.0100, L500.4050 #### [facility] [address] [place], [address] Lymphocytes/100 WBC (Bld) 14.8 % Low 19-41 [facility] Comment on above: Performed By: #### L 100.0100, L500.4050 #### [facility] [address] [place], [address] MCH (RBC) [Entitic mass] 29.1 pg Normal 27.0-32.0 [facility] Comment on above: Performed By: #### L 100.0100, L500.4050 #### [facility] [address] [place], [address] MCHC (RBC) [Mass/Vol] 33.0 g/dL Normal 32-36 [facility] Comment on above: Performed By: #### L 100.0100, L500.4050 #### [facility] [address] [place], [address] MCV (RBC) [Entitic vol] 88.1 fL Normal 80-94 [facility] Comment on above: Performed By: #### L 100.0100, L500.4050 #### [facility] [address] [place], [address] Monocytes/100 WBC (Bld) 3.4 % Normal 0-10 [facility] Comment on above: Performed By: #### L 100.0100, L500.4050 #### [facility] [address] [place], [address] Neutrophils/100 WBC (Bld) 76.1 % High 47-70 [facility] Comment on above: Performed By: #### L 100.0100, L500.4050 #### [facility] [address] [place], [address] Nucleated RBC (Bld) [#/Vol] 0 10*3/uL Normal 0-5 [facility] Comment on above: Performed By: #### L 100.0100, L500.4050 #### [facility] [address] [place], [address] Platelet mean volume (Bld) [Entitic vol] 9.2 fL Normal 6.2-12.0 [facility] Comment on above: Performed By: #### L 100.0100, L500.4050 #### [facility] [address] [place], [address] Platelets (Bld) [#/Vol] 344 10*3/uL Normal 150-450 [facility] Comment on above: Performed By: #### L 100.0100, L500.4050 #### [facility] [address] [place], [address] RBC (Bld) [#/Vol] 4.81 10*6/uL Normal 4.6-6.2 [facility] Comment on above: Performed By: #### L 100.0100, L500.4050 #### [facility] [address] [place], [address] RDW SD 43.2 fl Normal 35.1-43.9 [facility] Comment on above: Performed By: #### L 100.0100, L500.4050 #### [facility] [address] [place], [address] WBC (Bld) [#/Vol] 11.9 10*3/uL High 4.4-11.0 [facility] Comment on above: Performed By: #### L 100.0100, L500.4050 #### [facility] [address] [place], [address] Comprehensive Metabolic Prof [facility] 02-14-2024 Albumin [Mass/Vol] 3.9 g/dL Normal 3.2-5.0 [facility] Comment on above: Performed By: #### L 100.0100, L500.4050 #### [facility] [address] [place], [address] Albumin/Globulin [Mass ratio] 1.4 {ratio} Normal 0.9-2.4 [facility] Comment on above: Performed By: #### L 100.0100, L500.4050 #### [facility] [address] [place], [address] ALK P 71 U/L Normal 45-117 [facility] Comment on above: Performed By: #### L 100.0100, L500.4050 #### [facility] [address] [place], [address] ALT [Catalytic activity/Vol] 121 U/L High 16-61 [facility] Comment on above: Performed By: #### L 100.0100, L500.4050 #### [facility] [address] [place], [address] AST [Catalytic activity/Vol] 53 U/L High 15-37 [facility] Comment on above: Performed By: #### L 100.0100, L500.4050 #### [facility] [address] [place], [address] Bilirubin [Mass/Vol] 0.50 mg/dL Normal 0.20-1.00 [facility] Comment on above: Result Comment: For patients on eltrombopag therapy, use of Dimension [place] TBIL is not recommended. Performed By: #### L 100.0100, L500.4050 #### [facility] [address] [place], [address] BUN/CRE 13.8 RATIO Normal 10-20 [facility] Comment on above: Performed By: #### L 100.0100, L500.4050 #### [facility] [address] [place], [address] CA,Total 10.0 mg/dL Normal 8.5-10.1 [facility] Comment on above: Performed By: #### L 100.0100, L500.4050 #### [facility] [address] [place], [address] Chloride [Moles/Vol] 103 mmol/L Normal 98-107 [facility] Comment on above: Performed By: #### L 100.0100, L500.4050 #### [facility] [address] [place], [address] CO2 [Moles/Vol] 25.0 mmol/L Normal 21.0-32.0 [facility] Comment on above: Performed By: #### L 100.0100, L500.4050 #### [facility] [address] [place], [address] Creatinine [Mass/Vol] 1.30 mg/dL Normal 0.70-1.30 [facility] Comment on above: Result Comment: The validity of the calculated GFR GFRAA in patients over 70 years has not been determined. Clinical correlation is essential. Performed By: #### L 100.0100, L500.4050 #### [facility] [address] [place], [address] EST GFR - AA 77 mL/min Normal >60 [facility] Comment on above: Result Comment: Afri can Samoan GFR Calc Performed By: #### L 100.0100, L500.4050 #### [facility] [address] [place], [address] GAP 8 Normal 5-15 [facility] Comment on above: Performed By: #### L 100.0100, L500.4050 #### [facility] [address] [place], [address] GFR/1.73 sq M.predicted among non-blacks MDRD (S/P/Bld) [Vol rate/Area] 63 mL/min/{1.73_m2} Normal >60 [facility] Comment on above: Result Comment: Non- GFR Calc Performed By: #### L 100.0100, L500.4050 #### [facility] [address] [place], [address] Globulin (S) [Mass/Vol] 2.7 g/dL Normal 2.2-4.2 [facility] Comment on above: Performed By: #### L 100.0100, L500.4050 #### [facility] [address] [place], [address] Glucose [Mass/Vol] 164 mg/dL High 74-106 [facility] Comment on above: Result Comment: Fast ing Glucose result greater than or equal to 126 mg/dL suggests DIABETES MELLITUS per A.D.A. criteria. Performed By: #### L 100.0100, L500.4050 #### [facility] [address] [place], [address] Potassium [Moles/Vol] 3.9 mmol/L Normal 3.5-5.1 [facility] Comment on above: Performed By: #### L 100.0100, L500.4050 #### [facility] [address] [place], [address] Sodium [Moles/Vol] 136 mmol/L Normal 136-145 [facility] Comment on above: Performed By: #### L 100.0100, L500.4050 #### [facility] [address] [place], [address] T PROT 6.6 g/dL Normal 6.4-8.2 [facility] Comment on above: Performed By: #### L 100.0100, L500.4050 #### [facility] [address] [place], [address] Urea nitrogen [Mass/Vol] 18 mg/dL Normal 7-18 [facility] Comment on above: Performed By: #### L 100.0100, L500.4050 #### [facility] [address] [place], [address] 36on 02-03-2024 36 Pharmacy requesting refill. Prescription Request: Last medication check: 10/24/2023 Last physical exam: 04/18/2023 Next scheduled appointment: 04/20/2024 Last date of refill on this medication: 03/29/2023 [facility] 36on 01-24-2024 36 Yes, thank you [facility] 36 Name of caller: Brad Contact phone number: [phone] Relationship to Patient: [facility] Provider: Dr Rosa Practice: [facility] Chief Complaint/Reason for Call: Caller stated that there are no changes with patient. Caller is asking if Dr Rosa will continue to follow patient for nursing and plan of care. Best time of day caller can be reached: any Patient advised that office/PCP has 24-48 business hours to return their call: No Normal [facility] 36on 01-17-2024 36 Message released to patient as written. YANNICK Deal CNP 01/16/2024 9:02 PM EDT Home sleep study demonstrates no sleep related disorder- no sleep apnea detected. Patient's further questions if applicable: Iesha, patient's caregiver voiced understanding, no further questions or concerns at this time. Were all questions from office addressed or relayed to the patient from encounter: Yes Normal [facility] Home sleep teston 01-16-2024 [facility] 36on 12-19-2023 36 Prescription Request : Last medication check: 10/24/23 Last physical exam: 04/18/23 Next scheduled appointment: 04/20/24 Last date of refill on this medication 06/07/23 [facility] CD3 (initial)on 12-19-2023 CD3 (initial) ------- Patient Age/Sex Location Account Attending Physician CHAN BURCIAGA/Andrez VALENCIA [id number] Michael Laguerre DO Specimen: [id number] Received: 12/20/23-1112 Status: HUSSEIN Pressley Num: [id number] Spec Type: IMMUNO Subm Dr: Michael Laguerre DO PHYSICIAN INSTITUTION [place] [address] SPECIMEN INFORMATION: Tissue Source: Terminal ileum biopsy Clinical Info: Encounter for screening for malignant neoplasm of colon Specimen Number: [id number] CPT code: 86905,34602j8 METHODOLOGY: Deparaffinized sections of prefer/formalin-fixed tissue or [...] developed and their performance characteristics determined by [facility]. They may not have been cleared or approved by the U.S. Food and Drug Administration. The FDA has determined that such clearance or approval is not necessary. The above immunohistochemical/dualISH markers are ordered and reviewed by the Pathologist. INTERPRETATION: Terminal ileum, biopsy: Polytypic lymphoid aggregates. AM/mr 12/23/2023 Signed (signature on file) Dr. Huy Pollock, DO 12/23/23 1536 Normal [facility] Comment on above: Performed By: #### P CD3 #### [facility] [address] [place], [address] Colonoscopy Reporton 024 Colonoscopy Report [facility] Medical Records Department [address] [place] [address] Colonoscopy Report MR#: [id number] Acct: [id number] Name: CHAN BURCIAGA Rep #: [id number] : 1980 43 From: Michael Laguerre DO PCP: Dr. Ramiro Rosa MD [place] [facility] [place] Name: Chan Burciaga Procedure Date: 12/19/2023 [...] pathology results. Procedure Code(s): --- Professional --- 97419, Colonoscopy, flexible; with biopsy, single or multiple CPT copyright 2021 [employer]. All rights reserved. The codes documented in this report are preliminary and upon fraternity house cook review may be revised to meet current compliance requirements. Michael Laguerre DO 12/19/2023 10:32:20 AM This report has been signed electronically. Number of Addenda: 0 Note Initiated On: 12/19/2023 10:03 AM 12/19/23 1032 Date Michael Aden Signature: Date (if indicated) CC: Dr. Ramiro Rosa MD; Michael Laguerre DO Date Dictated: 12/19/23 1003 Date Transcribed: Curb Supervisor: DARRELL Signed [facility] MR/POSTOP.ANEon 12-19-2023 MR/POSTOP.ANE [facility] Medical Records Department [address] [place] [address] Anesthesia Postop Eval I 12/19/23 1036 MR#: [id number] Acct: [id number] Name: CHAN BURCIAGA Rep #: [id number] : 1980 43 From: Esvin Awan PCP: Dr. Ramiro Rosa MD Status:REG SDC Y Race: C Location: [place] [address] Anesthesia: Postop Eval I Current Vital Signs [...] Date Esvin Regalado Signature: Date CC: Signed [facility] MR/[id number] 12-19-2023 MR/POSTOPAN2 [facility] Medical Records Department [address] [place] [address] Anesthesia Postop Eval II 12/19/23 1051 MR#: [id number] Acct: [id number] Name: MALKACHAN Rep #: [id number] : 1980 43 From: Harman Conrad MD PCP: Dr. Ramiro Rosa MD Status:REG SD Y Race: C Location: [place] [address] Anesthesia Postop Eval I Sum Postop Eval [...] MD Cosigner Signature: Date CC: Signed Normal [facility] Surgery Specimen Level Zhou 12-19-2023 Surgery Specimen Level IV Patient Age/Sex Location Account Attending Physician MARTIR BURCIAGAN 43/M EN [id number] Michael Laguerre DO Specimen: [id number] Received: 12/19/23 Status: HUSSEIN Hartmanjoann Num: [id number] Spec Type: COLON BX Subm Dr: Michael [...] Benign lymphoid aggregates are also present. Immunohistochemistry ([id number]) supports the above diagnosis and reveals polytypic [...] submitted in one cassette. BARNEY. 12/19/2023 TC:2 CPT:08045 Patient Age/Sex Location Account Attending Physician CHAN BURCIAGA 43/M EN [id number] Michael Laguerre DO Signed (signature on file) Dr. Huy Pollock DO 12/23/23 1218 Normal [facility] Comment on above: Performed By: #### P MARIS #### [facility] [place], [address] 36on 12-03-2023 36 Reviewed chart. Refi ll appropriate. RX sent. [facility] 36 Prescription Request : Last medication check: 10/24/23 Last physical exam: 04/18/23 Next scheduled appointment: 01/09/24 Last date of refill on this medication 06/26/23 [facility] 36on 11-21-2023 36 Notified on angela luo. [facility] 36 Yes, recertification would be appropriate [facility] 36 Name of caller: Brad Contact phone number: [phone] Relationship to Patient: [facility] Provider: Dr. Rosa Practice: [facility] Chief Complaint/Reason for Call: Brad is requesting confirmation, of medical recertification for shelter. Please advise. Best time of day caller can be reached: any Patient advised that office/PCP has 24-48 business hours to return their call: Yes [facility] 36on 11-12-2023 36 Prescription Request : Last medication check: 10/24/23 Last physical exam: 04/18/23 Next scheduled appointment: 04/20/24 Last date of refill on this medication 06/04/23 [facility] Office Visiton 10-24-2023 Follow-up visit [id number] Cb Burciaga 1980 M Date Provider Department Center 10/24/2023 [id number]-LOLUWARAMIRO ROSA [facility] Family History Family Status - Relation Status Age at Mother Father Alive Level of Service:82548 DE OFFICE/OUTPATIENT ESTABLISHED MOD MDM 30 MIN Reason for Visit and Comments: Hypertension [918509] Hyperlipidemia [182] Depression [32] Medication Check [3859125807] - 6 month Health Maintenance [872] - Hiv/hep c screening- refuse Hep b vaccine- advised to go to pharmacy if wanting this Tdap vaccine-advised to go to pharmacy if wanting this Colonoscopy- agree [facility] Progress Noteon 10-24-2023 Progress Note Stable, continue Cla ritin and Flonase. [facility] Progress Note Remission, continue Seroquel 150 mg nightly Normal [facility] Progress Note Controlled, continue atorvastatin 40 mg daily and fenofibrate 100 mg daily [facility] Progress Note Controlled, continue doxazosin 2 mg, clonidine 0.2 mg twice a day and losartan 100 mg daily Normal [facility] Progress Note Order home sleep study. Normal [facility] Progress Note Witnessed apneic epi sodes, will schedule patient for home sleep study. Normal [facility] Progress Note 10/24/2023 Chan Burciaga (: 1980) [...] 6 months (around 04/24/2024) for annual. 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 Ramiro Rosa MD 10/24/2023 11:50 AM [facility] Progress Note Patient verified by last name and date of . [facility] 36on 10-23-2023 36 Left a message to re turn call to [facility] for appointment with Dr. Rosa on 10/24/23. If the patient calls back during business hours, please transfer to our backline. Otherwise, Please arrive 15 minutes early with your insurance card and photo ID. Thank you! Normal [facility] PT D/C Summary (1)on 024 PT D/C Summary (1) [facility] Physical Therapy [facility] [address] [facility] [place] [address] / REHABILITATION SERVICES DISCHARGE SUMMARY MR#: [id number] Acct: [id number] Name: CHAN BURCIAGA Rep #: [id number] : 1980 42 From: Milly Andrew PT, [...] BETTER. HE IS APPROPRIATE FOR DISCHARGE TO [facility] AT THIS TIME. UPON EXAM TODAY: THIS [...] please feel free to call me at [phone]. Thank you for the referral of this patient. Sincerely, Milly Andrew, PT, Cert MDT Balance/Gait/Functional tests Balance/Special Test Scores Oswestry Low Back Score: 8 30 Second Chair Rise Test Seconds: 16 Improvement % Improvement: 50 08/25/232114 CC: Dr. Ramiro Rosa MD MERY Signed Normal [facility] Culture, urineOrdered By: St heri Miles on 05-29-2023 Bacteria identified Cx Nom (U) [place] odontolyticus [facility] Laboratory - Chemistry and C hemistry - challengeon 05-29-2023 Bilirubin Ql (U) Small (1+) [facility] Glucose Ql (U) Negative [facility] Ketones Ql (U) Negative [facility] pH (U) 7.5 [pH] [facility] Specific gravity (U) [Rel density] 1.010 [facility] Urobilinogen (U) [Mass/Vol] 0.2645608 mg/dL [facility] Laboratory - Hematology and Cell countson 05-29-2023 Hemoglobin Ql (U) Hemolyzed [facility] Laboratory - Specimen inform ationon 05-29-2023 Clarity (U) Slightly Hazy [facility] Color (U) Dk Yellow [facility] Laboratory - Urinalysison Nitrite Ql (U) Negative [facility] Protein Ql (U) Trace [facility] No Panel Informationon 05-29 Urine Leukocytes Positive [facility] Urine Non-Hemolyzed Blood Large [facility] XR Lumbar spine 4 Viewson Mild to [...] bilateral kidneys measuring up to 1 cm. [facility] Isidro Lara MD - 08/27/2022 Patient [...] Electronically Signed Date/Time: 08/27/2022 4:16 PM EDT [facility] Radiology Study observation (narrative) [facility] XR Lumbar spine 4 ViewsOrder ed By: Isidro Lara on 08-27-2022 [employer] Work Phone: Basophil percentageOrdered B y: Dr. Borden on 08-09-2022 Bilirubin [Mass/Vol] 0.40 mg/dL 0.20-1.00 [facility] Comment on above: For patients on eltr ombopag therapy, use of Dimension [place] TBIL is not recommended. Chloride [Moles/Vol] 105 mmol/L 98-107 [facility] Cholesterol [Mass/Vol] 151 mg/dL <200 [facility] Comment on above: <200 mg/dL Desirable 200-240 mg/dL Borderline >240 mg/dL High Risk Glucose [Mass/Vol] 91 mg/dL 74-106 [facility] Potassium [Moles/Vol] 3.9 mmol/L 3.5-5.1 [facility] Protein [Mass/Vol] 7.3 g/dL 6.4-8.2 [facility] Sodium [Moles/Vol] 136 mmol/L 136-145 [facility] Triglyceride [Mass/Vol] 142 mg/dL <199 [facility] Comment on above: The drugs N-Acetylcy steine and Metamizole may falsely depress this assay.Serum Triglycerides Reference Interval Normal <150 mg/dL Borderline high 150 - 199 mg/dL High 200 - 499 mg/dL Very High > or = 500 mg/dL Laboratory - Chemistry and C hemistry - challengeOrdered By: Dr. Borden on 08-09-2022 ALP [Catalytic activity/Vol] 56 U/L 45-117 [facility] ALT [Catalytic activity/Vol] 138 U/L 16-61 [facility] CO2 [Moles/Vol] 26.0 mmol/L 21.0-32.0 [facility] Globulin (S) [Mass/Vol] 3.2 g/dL 2.2-4.2 [facility] Urea nitrogen/Creatinine [Mass ratio] 11.7 mg/mg 10-20 [facility] No Panel InformationOrdered By: Dr. Borden on 08-09-2022 Estimated GFR (MDRD) Amer 93 mL/min >60 [facility] Comment on above: GFR Calc Estimated GFR (MDRD) Non-Af Amer 77 mL/min >60 [facility] Comment on above: Non- GFR Calc Serum or plasma albumin ashlee urement (mass/volume)Ordered By: Dr. Borden on 08-09-2022 Albumin [Mass/Vol] 4.1 g/dL 3.2-5.0 [facility] Serum or plasma albumin/glob ulin mass ratioOrdered By: Dr. Borden on 08-09-2022 Albumin/Globulin [Mass ratio] 1.3 {ratio} 0.9-2.4 [facility] Serum or plasma calcium ashlee urement (mass/volume)Ordered By: Dr. Borden on 08-09-2022 Calcium [Mass/Vol] 10.0 mg/dL 8.5-10.1 [facility] Serum or plasma cholesterol in HDL measurement (mass/volume)Ordered By: Dr. Borden on 08-09-2022 Cholesterol in HDL [Mass/Vol] 42 mg/dL >40 [facility] Comment on above: The drugs N-Acetylcy steine and Metamizole may falsely depress this assay. Reference Range HDL <40 mg/dL Low HDL Cholesterol HDL >or= 60 mg/dL High HDL Cholesterol Serum or plasma cholesterol in VLDL measurement (mass/volume)Ordered By: Dr. Borden on 08-09-2022 Cholesterol in VLDL [Mass/Vol] 28 mg/dL 5-40 [facility] Serum or plasma creatinine m easurement (mass/volume)Ordered By: Dr. Borden on 08-09-2022 Creatinine [Mass/Vol] 1.11 mg/dL 0.70-1.30 [facility] Comment on above: The validity of the calculated GFR & GFRAA in patients over 70 years has not been determined. Clinical correlation is essential. Serum or plasma low density lipoprotein (LDL) cholesterol measurement (mass/volume)Ordered By: Dr. Borden on 08-09-2022 Cholesterol in LDL [Mass/Vol] 81 mg/dL 0-130 [facility] Serum or plasma urea nitroge n measurement (mass/volume)Ordered By: Dr. Borden on 08-09-2022 Urea nitrogen [Mass/Vol] 13 mg/dL 7-18 [facility] Thin prep Papanicolaou smear with manual screeningOrdered By: Dr. Borden on 08-09-2022 Thin prep Papanicolaou smear with manual screening 63 U/L 15-37 [facility] Thin prep Papanicolaou smear with manual screening 5 5-15 [facility] Whole blood hemoglobin A1c/t otal hemoglobin ratio (mass fraction)Ordered By: Dr. Borden on 08-09-2022 HbA1c (Bld) [Mass fraction] 5.4 % 3.8-5.6 [facility] Comment on above: Normal < 5.7 % Predi abetic 5.7 - 6.4 % Diabetic >or= 6.5 % Please note range changes. Basophil percentageon 2021 Bilirubin [Mass/Vol] 0.30 mg/dL 0.20-1.00 [facility] Work Phone: Comment on above: For patients on eltr ombopag therapy, use of Dimension [place] TBIL is not recommended. Chloride [Moles/Vol] 108 mmol/L 98-107 [facility] Work Phone: Cholesterol [Mass/Vol] 199 mg/dL <200 [facility] Work Phone: Comment on above: <200 mg/dL Desirable 200-240 mg/dL Borderline >240 mg/dL High Risk Glucose [Mass/Vol] 113 mg/dL 74-106 [facility] Work Phone: Comment on above: Fasting Glucose resu lt from 100 to 125 mg/dL suggests IMPAIRED HOMEOSTASIS per A.D.A. criteria. Potassium [Moles/Vol] 3.7 mmol/L 3.5-5.1 [facility] Work Phone: Protein [Mass/Vol] 7.4 g/dL 6.4-8.2 [facility] Work Phone: Sodium [Moles/Vol] 140 mmol/L 136-145 [facility] Work Phone: Triglyceride [Mass/Vol] 239 mg/dL <199 [facility] Work Phone: Comment on above: The drugs N-Acetylcy steine and Metamizole may falsely depress this assay.Serum Triglycerides Reference Interval Normal <150 mg/dL Borderline high 150 - 199 mg/dL High 200 - 499 mg/dL Very High > or = 500 mg/dL WBC (Bld) [#/Vol] 9.8 10*3/uL 4.4-11.0 [facility] Work Phone: Blood erythrocytes count (nu mber/volume)on 02-23-2022 RBC (Bld) [#/Vol] 5.30 10*6/uL 4.6-6.2 [facility] Work Phone: Blood hemoglobin measurement (mass/volume)on 02-23-2022 Hemoglobin (Bld) [Mass/Vol] 15.4 g/dL 13.0-16.5 [facility] Work Phone: Blood platelet mean volumeon 02-23-2022 Platelet mean volume (Bld) [Entitic vol] 9.4 fL 6.2-12.0 [facility] Work Phone: Determination of erythrocyte mean corpuscular volume (MCV)on 02-23-2022 MCV (RBC) [Entitic vol] 86.4 fL 80-94 [facility] Work Phone: Hematocrit Auto (Bld) [Volum e fraction]on 02-23-2022 Hematocrit (Bld) [Volume fraction] 45.8 % 40-54 [facility] Work Phone: Laboratory - Chemistry and C hemistry - challengeon 02-23-2022 ALP [Catalytic activity/Vol] 72 U/L 45-117 [facility] Work Phone: ALT [Catalytic activity/Vol] 120 U/L 16-61 [facility] Work Phone: CO2 [Moles/Vol] 24.0 mmol/L 21.0-32.0 [facility] Work Phone: Globulin (S) [Mass/Vol] 3.4 g/dL 2.2-4.2 [facility] Work Phone: Urea nitrogen/Creatinine [Mass ratio] 9.9 mg/mg 10-20 [facility] Work Phone: Laboratory - Hematology and Cell countson 02-23-2022 Erythrocyte distribution width (RBC) [Entitic vol] 42.0 fL 35.1-43.9 [facility] Work Phone: Erythrocyte distribution width (RBC) [Ratio] 13.4 % 11.6-14.6 [facility] Work Phone: MCH (RBC) [Entitic mass] 29.1 pg 27.0-32.0 [facility] Work Phone: MCHC Auto (RBC) [Mass/Vol]on 02-23-2022 MCHC (RBC) [Mass/Vol] 33.6 g/dL 32-36 [facility] Work Phone: No Panel Informationon 02-23 Estimated GFR (MDRD) Amer 104 mL/min >60 [facility] Work Phone: Comment on above: GFR Calc Estimated GFR (MDRD) Non-Af Amer 86 mL/min >60 [facility] Work Phone: Comment on above: Non- GFR Calc Platelets bldon 02-23-2022 Platelets (Bld) [#/Vol] 382 10*3/uL 150-450 [facility] Work Phone: Serum or plasma albumin ashlee urement (mass/volume)on 02-23-2022 Albumin [Mass/Vol] 4.0 g/dL 3.2-5.0 [facility] Work Phone: Serum or plasma albumin/glob ulin mass ratioon 02-23-2022 Albumin/Globulin [Mass ratio] 1.2 {ratio} 0.9-2.4 [facility] Work Phone: Serum or plasma calcium ashlee urement (mass/volume)on 02-23-2022 Calcium [Mass/Vol] 9.5 mg/dL 8.5-10.1 [facility] Work Phone: Serum or plasma cholesterol in HDL measurement (mass/volume)on 02-23-2022 Cholesterol in HDL [Mass/Vol] 35 mg/dL >40 [facility] Work Phone: Comment on above: The drugs N-Acetylcy steine and Metamizole may falsely depress this assay. Reference Range HDL <40 mg/dL Low HDL Cholesterol HDL >or= 60 mg/dL High HDL Cholesterol Serum or plasma cholesterol in VLDL measurement (mass/volume)on 02-23-2022 Cholesterol in VLDL [Mass/Vol] 48 mg/dL 5-40 [facility] Work Phone: Serum or plasma creatinine m easurement (mass/volume)on 02-23-2022 Creatinine [Mass/Vol] 1.01 mg/dL 0.70-1.30 [facility] Work Phone: Comment on above: The validity of the calculated GFR & GFRAA in patients over 70 years has not been determined. Clinical correlation is essential. Serum or plasma low density lipoprotein (LDL) cholesterol measurement (mass/volume)on 02-23-2022 Cholesterol in LDL [Mass/Vol] 116 mg/dL 0-130 [facility] Work Phone: Serum or plasma oxcarbazepin e measurement (mass/volume)on 02-23-2022 OXcarbazepine [Mass/Vol] 22 ug/mL 10-35 [facility] Work Phone: Comment on above: This test was develo ped and its performance characteristicsdetermined by [facility]. It has not been cleared orapproved by the Food and Drug Administration. Detection Limit = 1Performed at: - [facility] [id number] [place], [place] [id number] Director: Andra Sawant MD, Phone: [phone] Serum or plasma urea nitroge n measurement (mass/volume)on 02-23-2022 Urea nitrogen [Mass/Vol] 10 mg/dL 7-18 [facility] Work Phone: Thin prep Papanicolaou smear with manual screeningon 02-23-2022 Thin prep Papanicolaou smear with manual screening 53 U/L 15-37 [facility] Work Phone: Thin prep Papanicolaou smear with manual screening 8 5-15 [facility] Work Phone: Whole blood hemoglobin A1c/t otal hemoglobin ratio (mass fraction)on 02-23-2022 HbA1c (Bld) [Mass fraction] 5.8 % 3.8-5.6 [facility] Work Phone: Comment on above: Normal < 5.7 % Predi abetic 5.7 - 6.4 % Diabetic >or= 6.5 % Please note range changes. No Panel Informationon 02-19 POC SARS CoV-2 Antigen Negative [facility] Work Phone: No Panel Informationon 02-09 POC SARS CoV-2 Antigen Positive [facility] Work Phone: Vital Signs Date Time Vital Sign Value Performing Clinician Facility 09-27-2024 09:54-0400 Body temperature 97.11 [degF] Sean Verduzco CHILDCARE AIDE.COMBINE OPERATOR Work Phone: [facility] 09-27-2024 09:54-0400 Body weight 86.2 kg Sean Verduzco APRN.COMBINE OPERATOR Work Phone: [facility] 09-27-2024 09:54-0400 Diastolic blood pressure 66 mm[Hg] Sean Verduzco CHILDCARE AIDE.COMBINE OPERATOR Work Phone: [facility] 09-27-2024 09:54-0400 Heart rate 96 /min Sean Verduzco CHILDCARE AIDE.COMBINE OPERATOR Work Phone: [facility] 09-27-2024 09:54-0400 SaO2% (BldA) [Mass fraction] 96 % Sean Verduzco APRN.COMBINE OPERATOR Work Phone: [facility] 09-27-2024 09:54-0400 Systolic blood pressure 110 mm[Hg] Sean Verduzco CHILDCARE AIDE.COMBINE OPERATOR Work Phone: [facility] 04-20-2024 11:04-0500 Body height 166.4 cm Ramiro Moe MD Work Phone: [facility] 04-20-2024 11:04-0500 Body mass index (BMI) [Ratio] 31.27 kg/m2 Ramiro Rosa MD Work Phone: [facility] 04-20-2024 11:04-0500 Body weight 86.55 kg Ramiro Rosa MD Work Phone: [facility] 04-20-2024 11:04-0500 Diastolic blood pressure 74 mm[Hg] Ramiro Rosa MD Work Phone: [facility] 04-20-2024 11:04-0500 Heart rate 73 /min Ramiro Rosa MD Work Phone: [facility] 04-20-2024 11:04-0500 SaO2% (BldA) [Mass fraction] 94 % Ramiro Rosa MD Work Phone: [facility] 04-20-2024 11:04-0500 Systolic blood pressure 117 mm[Hg] Ramiro Rosa MD Work Phone: [facility] 10-24-2023 09:29-0400 Body height 166.4 cm Ramiro Rosa MD Work Phone: [facility] 10-24-2023 09:29-0400 Body mass index (BMI) [Ratio] 30.09 kg/m2 Ramiro Rosa MD Work Phone: [facility] 10-24-2023 09:29-0400 Body weight 83.28 kg Ramiro Rosa MD Work Phone: [facility] 10-24-2023 09:29-0400 Diastolic blood pressure 76 mm[Hg] Ramiro Rosa MD Work Phone: [facility] 10-24-2023 09:29-0400 Heart rate 66 /min Ramiro Rosa MD Work Phone: [facility] 10-24-2023 09:29-0400 SaO2% (BldA) [Mass fraction] 95 % Ramiro Rosa MD Work Phone: [facility] 10-24-2023 09:29-0400 Systolic blood pressure 115 mm[Hg] Ramiro Rosa MD Work Phone: [facility] 09-27-2023 11:13-0400 Body height 166.4 cm Ramiro Rosa MD Work Phone: [facility] 09-27-2023 11:13-0400 Body mass index (BMI) [Ratio] 29.6 kg/m2 Ramiro Rosa MD Work Phone: [facility] 09-27-2023 11:13-0400 Body weight 81.92 kg Ramiro Rosa MD Work Phone: [facility] 09-27-2023 11:13-0400 Diastolic blood pressure 81 mm[Hg] Ramiro Rosa MD Work Phone: [facility] 09-27-2023 11:13-0400 Heart rate 82 /min Ramiro Rosa MD Work Phone: [facility] 09-27-2023 11:13-0400 SaO2% (BldA) [Mass fraction] 95 % Ramiro Rosa MD Work Phone: [facility] 09-27-2023 11:13-0400 Systolic blood pressure 122 mm[Hg] Ramiro Rosa MD Work Phone: [facility] 05-29-2023 10:14-0500 Body temperature 98.2 [degF] Dr. Ramiro Rosa Work Phone: [facility] 05-29-2023 10:14-0500 Diastolic blood pressure 74 mm[Hg] Dr. Ramiro Rosa Work Phone: [facility] 05-29-2023 10:14-0500 Heart rate 98 /min Dr. Ramiro Rosa Work Phone: [facility] 05-29-2023 10:14-0500 Respiratory rate 18 /min Dr. Ramiro Rosa Work Phone: [facility] 05-29-2023 10:14-0500 SaO2% (BldA) [Mass fraction] 97 % Dr. Ramiro Rosa Work Phone: [facility] 05-29-2023 10:14-0500 Systolic blood pressure 115 mm[Hg] Dr. Ramiro Rosa Work Phone: [facility] 04-18-2023 09:03-0500 Body height 166.4 cm Ramiro Rosa MD Work Phone: [facility] 04-18-2023 09:03-0500 Body mass index (BMI) [Ratio] 30.65 kg/m2 Ramiro Rosa MD Work Phone: [facility] 04-18-2023 09:03-0500 Body weight 84.82 kg Ramiro Rosa MD Work Phone: [facility] 04-18-2023 09:03-0500 Diastolic blood pressure 72 mm[Hg] Ramiro Rosa MD Work Phone: [facility] 04-18-2023 09:03-0500 Heart rate 79 /min Ramiro Roas MD Work Phone: [facility] 04-18-2023 09:03-0500 SaO2% (BldA) [Mass fraction] 94 % Ramiro Rosa MD Work Phone: [facility] 04-18-2023 09:03-0500 Systolic blood pressure 108 mm[Hg] Ramiro Rosa MD Work Phone: [facility] 02-18-2023 14:49-0400 Body temperature 98.01 [degF] Yulia Lujan CHILDCARE AIDE.COMBINE OPERATOR Work Phone: [facility] 02-18-2023 14:49-0400 Body weight 84.19 kg Yulia Lujan CHILDCARE AIDE.COMBINE OPERATOR Work Phone: [facility] 02-18-2023 14:49-0400 Diastolic blood pressure 70 mm[Hg] Yulia Lujan CHILDCARE AIDE.COMBINE OPERATOR Work Phone: [facility] 02-18-2023 14:49-0400 Heart rate 98 /min Yulia Lujan CHILDCARE AIDE.COMBINE OPERATOR Work Phone: [facility] 02-18-2023 14:49-0400 Respiratory rate 16 /min Yulia Lujan CHILDCARE AIDE.COMBINE OPERATOR Work Phone: [facility] 02-18-2023 14:49-0400 SaO2% (BldA) [Mass fraction] 96 % Yulia Lujan CHILDCARE AIDE.COMBINE OPERATOR Work Phone: [facility] 02-18-2023 14:49-0400 Systolic blood pressure 124 mm[Hg] Yulia Lujan CHILDCARE AIDE.COMBINE OPERATOR Work Phone: [facility] 10-18-2022 14:23-0400 Body height 166.4 cm Ramiro Rosa MD Work Phone: [facility] 10-18-2022 14:23-0400 Body mass index (BMI) [Ratio] 30.15 kg/m2 Ramiro Rosa MD Work Phone: [facility] 10-18-2022 14:23-0400 Body weight 83.46 kg Ramiro Rosa MD Work Phone: [facility] 10-18-2022 14:23-0400 Diastolic blood pressure 84 mm[Hg] Ramiro Rosa MD Work Phone: [facility] 10-18-2022 14:23-0400 Heart rate 90 /min Ramiro Rosa MD Work Phone: [facility] 10-18-2022 14:23-0400 SaO2% (BldA) [Mass fraction] 95 % Ramiro Rosa MD Work Phone: [facility] 10-18-2022 14:23-0400 Systolic blood pressure 125 mm[Hg] Ramiro Rosa MD Work Phone: [facility] 08-27-2022 09:43-0400 Body height 166.4 cm Ramiro Rosa MD Work Phone: [facility] 08-27-2022 09:43-0400 Body mass index (BMI) [Ratio] 29.53 kg/m2 Ramiro Rosa MD Work Phone: [facility] 08-27-2022 09:43-0400 Body weight 81.74 kg Ramiro Rosa MD Work Phone: [facility] 08-27-2022 09:43-0400 Diastolic blood pressure 62 mm[Hg] Ramiro Rosa MD Work Phone: [facility] 08-27-2022 09:43-0400 Heart rate 65 /min Ramiro Rosa MD Work Phone: [facility] 08-27-2022 09:43-0400 Systolic blood pressure 110 mm[Hg] Ramiro Rosa MD Work Phone: [facility] 04-17-2022 11:29-0500 Diastolic blood pressure 95 mm[Hg] Dr. Ramiro Rosa Work Phone: [facility] Work Phone: 04-17-2022 11:29-0500 Heart rate 67 /min Dr. Ramiro Rosa Work Phone: [facility] Work Phone: 04-17-2022 11:29-0500 Respiratory rate 16 /min Dr. Ramiro Rosa Work Phone: [facility] Work Phone: 04-17-2022 11:29-0500 SaO2% (BldA) [Mass fraction] 97 % Dr. Ramiro Rosa Work Phone: [facility] Work Phone: 04-17-2022 11:29-0500 Systolic blood pressure 166 mm[Hg] Dr. Ramiro Rosa Work Phone: [facility] Work Phone: 04-17-2022 09:39-0500 Body height 165.[address] Ramiro Rosa Work Phone: [facility] Work Phone: 04-17-2022 09:39-0500 Body mass index (BMI) [Ratio] 30.9 kg/m2 Dr. Ramiro Rosa Work Phone: [facility] Work Phone: 04-17-2022 09:39-0500 Body temperature 97.3 [degF] Dr. Ramiro Rosa Work Phone: [facility] Work Phone: 04-17-2022 09:39-0500 Body weight 84.[address] Ramiro Rosa Work Phone: [facility] Work Phone: 02-19-2022 10:12-0400 Body temperature 97.2 [degF] Dr. Ramiro Rosa Work Phone: [facility] Work Phone: 02-19-2022 10:12-0400 Diastolic blood pressure 88 mm[Hg] Dr. Ramiro Rosa Work Phone: [facility] Work Phone: 02-19-2022 10:12-0400 Heart rate 81 /min Dr. Ramiro Rosa Work Phone: [facility] Work Phone: 02-19-2022 10:12-0400 Respiratory rate 16 /min Dr. Ramiro Rosa Work Phone: [facility] Work Phone: 02-19-2022 10:12-0400 SaO2% (BldA) [Mass fraction] 97 % Dr. Ramiro Rosa Work Phone: [facility] Work Phone: 02-19-2022 10:12-0400 Systolic blood pressure 128 mm[Hg] Dr. Ramiro Rosa Work Phone: [facility] Work Phone: 02-09-2022 09:43-0400 Body height 165.[address] Ramiro Rosa Work Phone: [facility] Work Phone: 02-09-2022 09:43-0400 Body mass index (BMI) [Ratio] 29.2 kg/m2 Dr. Ramiro Rosa Work Phone: [facility] Work Phone: 02-09-2022 09:43-0400 Body temperature 97.5 [degF] Dr. Ramiro Rosa Work Phone: [facility] Work Phone: 02-09-2022 09:43-0400 Body weight 79.[address] Ramiro Rosa Work Phone: [facility] Work Phone: 02-09-2022 09:43-0400 Diastolic blood pressure 82 mm[Hg] Dr. Ramiro Rosa Work Phone: [facility] Work Phone: 02-09-2022 09:43-0400 Heart rate 101 /min Dr. Ramiro Rosa Work Phone: [facility] Work Phone: 02-09-2022 09:43-0400 Respiratory rate 17 /min Dr. Ramiro Rosa Work Phone: [facility] Work Phone: 02-09-2022 09:43-0400 SaO2% (BldA) [Mass fraction] 97 % Dr. Ramiro Rosa Work Phone: [facility] Work Phone: 02-09-2022 09:43-0400 Systolic blood pressure 120 mm[Hg] Dr. Ramiro Rosa Work Phone: [facility] Work Phone: Encounters Encounter Date Encounter Type Care Provider Facility Start: 10-02-2024 End: 10-02-2024 Refill Puja D'Cecily [facility] Comment on above: Hyperlipidemia LDL g oal <100 Start: 09-28-2024 End: 09-29-2024 Follow-up encounter Nicole PISANO Work Phone: [facility] Comment on above: Results Start: 09-27-2024 End: 09-27-2024 Office outpatient visit 25 minutes Sean Verduzco CHILDCARE AIDE.COMBINE OPERATOR Work Phone: [facility] Comment on above: Acute cystitis with hematuria (Primary Dx) Start: 09-27-2024 End: 09-27-2024 ambulatory [facility] Facility:[facility] Start: 08-20-2024 End: 08-20-2024 Refill Virgie Cee CHILDCARE AIDE - COMBINE OPERATOR Work Phone: [facility] Comment on above: Hyperlipidemia LDL g oal <100 Start: 08-10-2024 End: 08-10-2024 Telephone encounter Ramiro Rosa MD Work Phone: [facility] Clinical Communication Start: 07-23-2024 End: 07-23-2024 Refill Ramiro Rosa MD Work Phone: [facility] Start: 07-14-2024 End: 07-14-2024 Refill Ramiro Rosa MD Work Phone: [facility] Start: 06-26-2024 End: 06-26-[address] Ramiro Rosa MD Work Phone: [facility] Work Phone: Start: 06-26-2024 End: 06-26-[address] Dajuan Morrison MD -Laboratory, Specimen Work Phone: Start: 06-26-2024 End: 06-26-2024 ambulatory Ramiro Rosa Facility:[facility] Start: 06-23-2024 End: 06-23-2024 Refill Ramiro Rosa MD Work Phone: [facility] Start: 05-04-2024 End: 05-04-2024 Refill Virgie Bridenthal CHILDCARE AIDE - COMBINE OPERATOR Work Phone: [facility] Start: 05-01-2024 End: 05-01-2024 Refill Virgie Bridenthal CHILDCARE AIDE - COMBINE OPERATOR Work Phone: [facility] Comment on above: Hyperlipidemia LDL g oal <100 Start: 04-20-2024 End: 04-20-2024 ambulatory RAMIRO ROSA [facility] Start: 04-20-2024 End: 04-20-2024 Encounter for general adult medical examination without abnormal findings RAMIRO MOE [facility] Start: 04-20-2024 End: 04-20-2024 Patient encounter procedure Ramiro Rosa MD Work Phone: [facility] Work Phone: Start: 04-20-2024 End: 04-20-2024 Periodic preventive med est patient 40-64yrs Ramiro Rosa MD Work Phone: [facility] Comment on above: Annual physical exam (Primary Dx); Essential hypertension; Hyperlipidemia LDL goal <100; Intellectual disability; Recurrent major depressive disorder, in full remission (HCC); Seasonal allergic rhinitis due to pollen; Loud snoring; Screening for diabetes mellitus; Screening for prostate cancer Start: 04-03-2024 End: 04-06-2024 Refill Ramiro Rosa MD Work Phone: [facility] Start: 02-14-2024 End: 02-14-2024 ambulatory Ramiro Rosa Facility:[facility] Start: 02-03-2024 End: 02-03-2024 Refill Virgie Bridenthal CHILDCARE AIDE - COMBINE OPERATOR Work Phone: [facility] Comment on above: Seasonal allergic rh initis due to pollen Start: 01-17-2024 End: 01-17-2024 Telephone encounter Coco Cheema CHILDCARE AIDE - COMBINE OPERATOR Work Phone: [facility] Comment on above: Results; Release of Information Start: 01-09-2024 End: 01-09-2024 ambulatory Ramiro Rosa MD Work Phone: [facility] Comment on above: MILAGROS (obstructive sle ep apnea); Loud snoring Start: 12-19-2023 ambulatory Ramiro Rosa Facility :[facility] Start: 12-19-2023 End: 12-19-2023 ambulatory Ramiro Rosa Facility:[facility] Start: 12-18-2023 End: 12-19-2023 Refill Ramiro Rosa MD Work Phone: [facility] Start: 12-03-2023 End: 12-03-2023 Refill Puja D'Cecily [facility] Comment on above: Hyperlipidemia LDL g oal <100 Start: 11-12-2023 End: 11-12-2023 Refill Ramiro Rosa MD Work Phone: [facility] Start: 11-05-2023 ambulatory Ramiro Rosa Facility :[facility] Start: 10-24-2023 End: 10-24-2023 Office outpatient visit 25 minutes Ramiro Rosa MD Work Phone: [facility] Comment on above: Essential hypertensi on (Primary Dx); Hyperlipidemia LDL goal <100; Recurrent major depressive disorder, in full remission (HCC); Seasonal allergic rhinitis due to pollen; MILAGROS (obstructive sleep apnea); Loud snoring; Screening for colon cancer Start: 10-24-2023 End: 10-24-2023 ambulatory RAMIRO ROSA [facility] Start: 09-27-2023 End: 09-27-2023 Office outpatient visit 15 minutes Ramiro Rosa MD Work Phone: [facility] Comment on above: Chronic midline low back pain without sciatica (Primary Dx) Start: 07-16-2023 End: 07-16-[address] Ramiro Rosa Work Phone: [facility] Work Phone: Start: 07-16-2023 End: 07-16-[address] Ramiro Rosa Work Phone: [facility]-Physical Therapy Work Phone: Start: 07-10-2023 Refill Ramiro Rosa MD Work Phone: [facility] Medicine Start: 07-02-2023 Refill Puja D'Cecily [facility] Comment on above: Essential hypertensi on (Primary Dx); Hyperlipidemia LDL goal <100 Start: 06-07-2023 Refill Ramiro Rosa MD Work Phone: [facility] Medicine Start: 05-29-2023 End: 05-29-[address] Ramiro Rosa Work Phone: [facility] Work Phone: Start: 05-29-2023 End: 05-29-[address] Ramiro Rosa Work Phone: [facility]-Laboratory, Specimen Work Phone: Start: 05-29-2023 End: 05-29-[address] Ramiro Rosa Work Phone: [facility] Work Phone: Start: 04-24-2023 Refill Ramiro Rosa MD Work Phone: [facility] Medicine Start: 04-18-2023 End: 04-18-2023 Patient encounter procedure Ramiro Rosa MD Work Phone: [facility] Work Phone: Start: 04-18-2023 End: 04-18-2023 Periodic preventive med est patient 40-64yrs Ramiro Rosa MD Work Phone: [facility] Medicine Comment on above: Annual physical exam (Primary Dx); Essential hypertension; Seasonal allergic rhinitis due to pollen; Recurrent major depressive disorder, in full remission (HCC); Hyperlipidemia LDL goal <100; Intellectual disability; Screening for diabetes mellitus; Screening for prostate cancer; Chronic midline low back pain without sciatica Start: 03-29-2023 Refill Ramiro Rosa MD Work Phone: [facility] Medicine Comment on above: Seasonal allergic rh initis due to pollen Start: 02-18-2023 ambulatory Milly Miller RN [facility] Start: 02-18-2023 End: 02-18-2023 Patient encounter procedure Milly Miller RN [facility] Clinical Communication Comment on above: Toenail torn away (P rimary Dx) Start: 01-08-2023 Refill Ramiro Rosa MD Work Phone: [facility] Start: 12-07-2022 Refill Ramiro Rosa MD Work Phone: [facility] Medicine Comment on above: Seasonal allergic rh initis due to pollen Start: 10-31-2022 Refill Ramiro Rosa MD Work Phone: [facility] Medicine Start: 10-19-2022 Telephone encounter Ramiro Vasquez MD Work Phone: [facility] Comment on above: Medication Problem ( nabumetone (Relafen) 500 MG tablet //) Start: 10-18-2022 End: 10-18-2022 Office outpatient visit 25 minutes Ramiro Rosa MD Work Phone: [facility] Medicine Comment on above: Essential hypertensi on (Primary Dx); Hyperlipidemia LDL goal <100; Recurrent major depressive disorder, in full remission (HCC); Acute midline low back pain without sciatica Start: 08-27-2022 End: 08-27-2022 Subsequent hospital visit by physician Ramiro Rosa MD Work Phone: [facility] Radiology Comment on above: Acute midline low ba ck pain without sciatica Start: 08-27-2022 End: 08-27-2022 Office outpatient visit 15 minutes Ramiro Rosa MD Work Phone: [facility] Comment on above: Acute midline low ba ck pain without sciatica (Primary Dx) Start: 08-09-2022 End: 08-09-2022 ambulatory [facility] Work Phone: Start: 08-09-2022 End: 08-09-2022 Patient encounter procedure [facility]-Laboratory Start: 08-07-2022 Refill Ramiro Rosa MD Work Phone: [facility] Start: 07-06-2022 Refill Ramiro Rosa MD Work Phone: [facility] Start: 05-04-2022 Telephone encounter Ramiro Vasquez MD Work Phone: [facility] Comment on above: other (BP readings f or one week patient may need more meds) Start: 04-17-2022 End: 04-17-2022 Emergency department patient visit Dr. Ramiro Rosa Work Phone: [facility]-Emergency Department Start: 02-23-2022 End: 02-23-[address] Ramiro Rosa Work Phone: [facility] Work Phone: Start: 02-23-2022 End: 02-23-[address] Ramiro Rosa Work Phone: [facility]-Laboratory Start: 02-19-2022 End: 02-19-[address] Ramiro Rosa Work Phone: [facility] Start: 02-09-2022 End: 02-09-[address] Ramiro Rosa Work Phone: [facility] Procedures Date Procedure Procedure Detail Performing Clinician Start: 09-27-2024 Urnls dip stick/tabl et rgnt auto w/o microscopy [facility] Provider Start: 04-20-2024 Lipid 1995 panel - S joe or Plasma Virgie Coleman CHILDCARE AIDE - COMBINE OPERATOR Work Phone: Start: 01-16-2024 HOME SLEEP TEST [...] - S joe or Plasma Yulia Tai CHILDCARE AIDE.COMBINE OPERATOR Work Phone: Plan of Treatment Date Care Activity Detail Author Start: 2053 RSV Immunization for Adults (1 - 1-dose 75+ series) RSV Immunization for Adults (1 - 1-dose 75+ series) [facility] Start: 2038 RSV Immunization age d 60 or older (1 - 1-dose 60+ series) RSV Immunization aged 60 or older (1 - 1-dose 60+ series) [facility] Start: 12-18-2033 Screening for malign ant neoplasm of colon [facility] Start: 04-20-2029 Lipid panel [facility] Start: 2028 Zoster Vaccines (1 o f 2) Zoster Vaccines (1 of 2) [facility] Start: 04-18-2028 Lipid panel Lipid Panel [facility] Start: 08-10-2027 Lipid panel Lipid Panel [facility] Start: 04-20-2027 Diabetes Screening Diabetes Screenin g [facility] Start: 02-23-2027 Lipid panel Lipid Panel [facility] Start: 06-15-2026 Lipid 1996 panel - Serum or Plasma Lipid Screening [facility] Start: 08-09-2025 Diabetes mellitus screening Diabetes Screening [facility] Start: 02-23-2025 Diabetes mellitus screening Diabetes Screening [facility] Start: 10-23-2024 DTaP/Tdap/Td Vaccine s (1 - Tdap) DTaP/Tdap/Td Vaccines (1 - Tdap) [facility] Comment on above: Postponed from 10/16 (Patient Refused) Start: 10-23-2024 Hepatitis B Vaccines (1 of 3 - 19+ 3-dose series) Hepatitis B Vaccines (1 of 3 - 19+ 3-dose series) [facility] Comment on above: Postponed from 10/16 (Patient Refused) Start: 10-23-2024 Hepatitis C screening Hepatitis C Sc reening [facility] Comment on above: Postponed from 10/16 (Patient Refused) Start: 10-23-2024 HIV screening HIV Screening [facility] Comment on above: Postponed from 10/16 (Patient Refused) Start: 10-20-2024 End: 10-20-2024 Patient encounter procedure 10/20/2024 11:30 AM EDT Office [address] [place] [address] Ramiro Rosa MD [address] [place], [place] [address] [address] [facility] Start: 10-19-2024 Depression Monitoring Depression Mon [facility] Start: 10-15-2024 End: 10-15-2024 Patient encounter procedure 10/15/2024 11:45 AM EDT Office Visit [address] [place] [address] Ramiro Rosa MD [address] [place], [place] [address] [address] [facility] Start: 09-16-2024 Diabetes mellitus screening Diabetes Screening [facility] Start: 04-24-2024 [facility] Start: 04-20-2024 End: 04-20-2025 Comprehensive metabolic 1998 panel - Serum or Plasma Comprehensive metabolic panel Lab Routine Screening for diabetes mellitus Expected: 04/20/2024 (Approximate), Expires: 04/20/2025 [facility] Comment on above: Expected: 04/20/2024 (Approximate), Expires: 04/20/2025 Start: 04-20-2024 End: 04-20-2025 Lipid 1996 panel - Serum or Plasma Lipid panel Lab Routine Hyperlipidemia LDL goal <100 Expected: 04/20/2024 (Approximate), Expires: 04/20/2025 [facility] Work Phone: Comment on above: Expected: 04/20/2024 (Approximate), Expires: 04/20/2025 Start: 04-20-2024 End: 04-20-2025 PSA Total (Screening) PSA Total (Screening) Lab Routine Screening for prostate cancer Expected: 04/20/2024 (Approximate), Expires: 04/20/2025 [facility] Comment on above: Expected: 04/20/2024 (Approximate), Expires: 04/20/2025 Start: 04-20-2024 End: 04-20-2024 Patient encounter procedure [facility] Start: 01-09-2024 End: 01-09-2024 Clinical Support 01/09/2024 9:00 AM EDT Clinical Support [facility] [address] [place] [id number] Ramiro Rosa MD [address] [place], [address] [place] [address] [facility] Start: 01-05-2024 COVID-19 Vaccine () COVID-19 Vaccine () [facility] Start: 01-05-2024 COVID-19 Vaccine () COVID-19 Vaccine () [facility] Start: 01-05-2024 Influenza vaccination Influenza Vacc ine (#1) [facility] Start: 10-24-2023 End: 10-23-2024 Home sleep test Home sleep test Sleep Center Routine MILAGROS (obstructive sleep apnea) Loud snoring Expected: 10/24/2023 (Approximate), Expires: 10/23/2024 [facility] [employer] Work Phone: Comment on above: Expected: 10/24/2023 (Approximate), Expires: 10/23/2024 Start: 10-24-2023 End: 10-24-2023 Patient encounter procedure 10/24/2023 9:30 AM EDT Office Visit [facility] Medicine [address] [place] [id number] Ramiro Rosa MD [address] [place] [id number] [facility] Start: 10-18-2023 Depression Monitoring Depression Mon itoring [facility] Start: 10-18-2023 Depresssion Monitoring Depresssion M onitoring [facility] Start: 10-17-2023 Screening for malign ant neoplasm of colon [facility] Start: 08-10-2023 Diabetes mellitus screening Diabetes Screening [facility] Start: 05-29-2023 Urine culture Urine Culture [facility] Start: 05-29-2023 [facility] Start: 04-18-2023 End: 04-18-2024 Comprehensive metabolic 1998 panel - Serum or Plasma Comprehensive metabolic panel Lab Routine Screening for diabetes mellitus Expected: 04/18/2023 (Approximate), Expires: 04/18/2024 [facility] [employer] Work Phone: Comment on above: Expected: 04/18/2023 (Approximate), Expires: 04/18/2024 Start: 04-18-2023 End: 04-18-2024 Lipid 1996 panel - Serum or Plasma Lipid panel Lab Routine Hyperlipidemia LDL goal <100 Expected: 04/18/2023 (Approximate), Expires: 04/18/2024 [facility] Comment on above: Expected: 04/18/2023 (Approximate), Expires: 04/18/2024 Start: 04-18-2023 End: 04-18-2024 PSA Total (Screening) PSA Total (Screening) Lab Routine Screening for prostate cancer Expected: 04/18/2023 (Approximate), Expires: 04/18/2024 [facility] Comment on above: Expected: 04/18/2023 (Approximate), Expires: 04/18/2024 Start: 04-18-2023 End: 04-18-2023 Patient encounter procedure 04/18/2023 9:30 AM EST Office Visit [facility] Medicine [address] [place] [address] [place] [address] Ramiro Rosa MD [address] [place], [place] [address] [address] [facility] Start: 01-04-2023 Covid-19 Vaccine ( season) Covid-19 Vaccine ( season) [facility] Start: 01-04-2023 Influenza vaccination Influenza Vacc ine (#1) [facility] Start: 10-18-2022 End: 10-18-2022 Patient encounter procedure 10/18/2022 Office Visit [facility] Ramiro Rosa MD [address] [place] [id number] [facility] Start: 05-06-2022 Depression Assessment Depression Ass essment [facility] Start: 06-05-2021 COVID-19 Vaccine (4 - Booster for Moderna series) COVID-19 Vaccine (4 - Booster for Moderna series) [facility] Start: 06-05-2021 COVID-19 Vaccine (4 - Moderna series) COVID-19 Vaccine (4 - Moderna series) [facility] Start: 1997 DTaP/Tdap/Td Vaccine s (1 - Tdap) DTaP/Tdap/Td Vaccines (1 - Tdap) [facility] Start: 1997 Hepatitis B Vaccine (1 of 3 - 19+ 3-dose series) Hepatitis B Vaccine (1 of 3 - 19+ 3-dose series) [facility] Start: 1997 Hepatitis B Vaccines (1 of 3 - 19+ 3-dose series) Hepatitis B Vaccines (1 of 3 - 19+ 3-dose series) [facility] Start: 1997 Urine microalbumin profile DTaP,Tdap,Td Vaccine (1 - Tdap) [facility] Start: 1996 Anxiety Screening Anxiety Screening [facility] Start: 1996 Depression Screening Depression Scre [facility] Start: 1996 Hepatitis C screening Hepatitis C [facility] Start: 1996 Hepatitis C Screening Hepatitis C [facility] Start: 1996 HIV Screening HIV Screening [facility] Start: 1996 HIV screening HIV Screening [facility] Start: 1990 [facility]: 1978 Hepatitis B Vaccine (1 of 3 - 3-dose series) Hepatitis B Vaccine (1 of 3 - 3-dose series) [facility] Start: 1978 Hepatitis B Vaccines (1 of 3 - 3-dose series) Hepatitis B Vaccines (1 of 3 - 3-dose series) [facility] Start: 1978 HIV screening HIV Screening [facility] Start: 1978 Screening for malign ant neoplasm of colon [facility] Bacteria identified in Urine by Culture BACTERIAL CULTURE, URINE Microbiology Routine Acute cystitis with hematuria Ordered: 09/27/2024 [facility] Work Phone: Comment on above: Ordered: 09/27/2024 OUTSIDE PROCEDURE SCAN OUTSIDE P ROCEDURE SCAN Procedures Ordered: 08/27/2022 [facility] Comment on above: Ordered: 08/27/2022 Patient Education ED Hypertensio n, To Be Confirmed [facility] Work Phone: Patient referral [facility] Work Phone: UA DIP, URINE (POC) UA DIP, URIN E (POC) Lab Routine Acute cystitis with hematuria Ordered: 09/27/2024 [facility] Comment on above: Ordered: 09/27/2024 Immunizations Immunization Date Immunization Notes Care Provider Kobi richards 03-26-2024 Seasonal, trivalent, recombinant, injectable influenza vaccine, preservative free Ramiro Rosa MD Work Phone: [facility] 02-07-2023 influenza, injectabl e, quadrivalent, contains preservative Milly Miller RN [facility] 02-07-2023 Seasonal, quadrivale nt, recombinant, injectable influenza vaccine, preservative free Puja D'Cecily [facility] 02-07-2023 influenza virus vacc ine, unspecified formulation Ramiro Rosa MD Work Phone: [facility] 02-23-2022 Influenza, injectabl e, Madin Cruger Canine Kidney, preservative free, quadrivalent Ramiro Rosa MD Work Phone: [facility] 02-23-2022 influenza virus vacc ine, unspecified formulation Ramiro Rosa MD Work Phone: [facility] 04-10-2021 Moderna SARS-CoV-2 Vaccination Ramiro Rosa MD Work Phone: [facility] 01-25-2021 influenza, injectabl e, quadrivalent, preservative free Ramiro Rosa MD Work Phone: [facility] 03-24-2020 Seasonal, quadrivale nt, recombinant, injectable influenza vaccine, preservative free Ramiro Rosa MD Work Phone: [facility] 02-11-2019 Influenza, injectabl e, Madin Marcela Canine Kidney, preservative free, quadrivalent Ramiro Rosa MD Work Phone: [facility] 04-11-2018 influenza, seasonal, injectable Ramiro Rosa MD Work Phone: [facility] 04-10-2017 influenza, injectabl e, quadrivalent, contains preservative Ramiro Rosa MD Work Phone: [facility] 03-28-2016 influenza, injectabl e, quadrivalent, contains preservative Ramiro Rosa MD Work Phone: [facility] 03-08-2014 influenza, seasonal, injectable Ramiro Rosa MD Work Phone: [facility] 09-14-2013 measles, mumps and r ubella virus vaccine Ramiro Rosa MD Work Phone: [facility] 02-25-2009 influenza virus vacc ine, whole virus Ramiro Rosa MD Work Phone: [facility] Payers Date Payer Category Payer Self-pay [id number] 2017 Medicaid [id number] 2009 Medicaid [id number] Unknown [id number] Unknown [id number] Unknown [id number] Unknown [id number] Unknown [id number] Unknown [id number] Social History Date Type Detail Facility Start: 02-19-2022 End: 05-29-2023 Tobacco smoking status VTIS Unknown if ever smoked [facility] Start: 03-02-2021 None [facility] Start: 03-02-2021 Non-smoker [facility] Start: 1980 Sex Assigned At Male [facility] Start: 12-16-2023 [facility] Start: 04-19-2022 End: 04-20-2024 Alcohol intake Current non-drinker of alcohol (finding) [facility] Start: 1980 Sex Assigned At Not on file [facility] Start: 04-09-2022 End: 08-27-2022 Exposure to SARS-CoV-2 (event) Not sure [facility] Start: 08-27-2022 End: 10-24-2023 History of Social function [facility] Start: 08-27-2022 End: 10-24-2023 Tobacco use panel [facility] Start: 10-08-2022 End: 10-18-2022 Exposure to SARS-CoV-2 (event) Yes [facility] National Score (1-10 0), lower number is lower risk Not on file [facility] (I/We) worried [facility] (my/our) food would run out before (I/we) got money to buy more. Never true [facility] In the past 12 month s, was there a time when you were not able to pay the mortgage or rent on time? No [facility] Are you now , , , , never or living with a partner? Never [facility] Do you feel stress - tense, restless, nervous, or anxious, or unable to sleep at night because your mind is troubled all the time - these days [OSQ] Only a little [facility] Start: 12-04-2021 End: 07-09-2024 Sex Male (finding) [facility] How often do you nee d to have someone help you when you read instructions, pamphlets, or other written material from your doctor or pharmacy [SILS] Always [facility] Mental Status Date Assessment Result Facility 04-17-2022 Cognitive function Level Of Cons ciousness Awake;Alert;Appropriate;Follow s Commands [facility] Work Phone: Clinical Notes 05-04-2022 to 10-02-2024 Telephone Encounter - YANNICK Jones CNP - 10/02/2024 12:47 PM EDTTelephone Encounter - YANNICK Jones CNP - 10/02/2024 12:47 PM ALVAREZ Lynch 04/20/2024 11:00 AM EST Note Date & Type Note Facility 10-02-2024 Telephone encounter Note Reviewed chart. Refill appropriate. RX sent. [facility] 10-02-2024 Miscellaneous Notes Reviewed chart. Refill appropriate. RX sent. Pharmacy sent over fax requesting refills for a 31 day supply with 11 refills OR 93 day supply with 3 refills. I pended a 93 day supply with 1 refill. Next appt: 10/15/2024 documented in this encounter [facility] 10-02-2024 Telephone encounter Note Pharmacy sent over fax requesting refills for a 31 day supply with 11 refills OR 93 day supply with 3 refills. I pended a 93 day supply with 1 refill. Next appt: 10/15/2024 [facility] 09-29-2024 Telephone encounter Note [facility] calling back-given provider's recommendations and verbalizes understanding. [facility] 09-29-2024 Miscellaneous Notes [facility] with [facility] calling back-given provider's recommendations and verbalizes understanding. Left message for patient to return call for results.Sabrina Dang LPN Please let patient know urine culture revealed no UTI. Please follow-up with PCP to ensure resolution of blood in the urine documented in this encounter [facility] 09-28-2024 Telephone encounter Note Left message for patient to return call for results.Sabrina Dang LPN [facility] 09-28-2024 Telephone encounter Note Please let patient know urine culture revealed no UTI. Please follow-up with PCP to ensure resolution of blood in the urine [facility] 09-27-2024 Note HNO ID: [id number] Author: SEAN VERDUZCO APRN.COMBINE OPERATOR Service: ? Author Type: Nurse Practitioner Type: Progress Notes Filed: 09/27/2024 10:14 Note Text: NUBIA DA SILVA Subjective Chan Burciaga is a 43 year [...] of care. This note was generated using [employer] software. It may contain errors in wording, punctuation, or spelling. Sean Verduzco APRN.COMBINE OPERATOR History and Record Review Clinical information obtained from an independent historian. History obtained from or confirmed by: other (see comments) and parent. External record(s) reviewed: prior outpatient record. Disposition The patient was discharged. Procedures [facility] 09-27-2024 History of Presen t illness Narrative [...] of care. This note was generated using [employer] software. It may contain errors in wording, punctuation, or spelling. Sean Verduzco APRN.COMBINE OPERATOR History and Record Review Clinical information obtained from an independent historian. History obtained from or confirmed by: other (see comments) and parent. External record(s) reviewed: prior outpatient record. Disposition The patient was discharged. Procedures documented in this encounter [facility] 08-20-2024 Telephone encounter Note Prescription Request: Last medication check: 10/24/2023 Last physical exam: 04/20/2024 Next scheduled appointment: 10/15/2024 CSA on file (date): N/A Last urine drug screen: N/A Last date of refill on this medication 05/01/2024 [facility] 08-20-2024 Miscellaneous Notes Prescription Request: Last medication check: 10/24/2023 Last physical exam: 04/20/2024 Next scheduled appointment: 10/15/2024 CSA on file (date): N/A Last urine drug screen: N/A Last date of refill on this medication 05/01/2024 documented in this encounter [facility] 08-10-2024 Telephone encounter Note Error [facility] 08-10-2024 Miscellaneous Notes Error documented in this encounter [facility] 07-23-2024 Telephone encounter Note Medication name: nabumetone [...] prior to picking up the medication: Yes [facility] 07-23-2024 Miscellaneous Notes Medication name: nabumetone (Relafen) [...] the medication: Yes documented in this encounter [facility] 07-14-2024 Telephone encounter Note Medication name: doxazosin [...] prior to picking up the medication: Yes [facility] 07-14-2024 Miscellaneous Notes Medication name: doxazosin (Cardura) [...] the medication: Yes documented in this encounter [facility] 06-23-2024 Telephone encounter Note Prescription Request: Last medication check: 10/24/2023 Last physical exam: 04/20/2024 Next scheduled appointment: 10/20/2024 Last date of refill on this medication: 06/04/23 [facility] 06-23-2024 Miscellaneous Notes Prescription Request: Last medication check: 10/24/2023 Last physical exam: 04/20/2024 Next scheduled appointment: 10/20/2024 Last date of refill on this medication: 06/04/23 documented in this encounter [facility] 05-04-2024 Telephone encounter Note Reviewed chart. Refill appropriate. RX sent. [facility] 05-04-2024 Miscellaneous Notes Reviewed chart. Refill appropriate. RX sent. [facility] requesting refill for Folic Acid 400mcg for 9 days w/1 refill. Prescription Request: Last medication check: 10/24/2023 Last physical exam: 04/20/2024 Next scheduled appointment: 10/20/2024 Last date of refill on this medication: 12/03/2023 documented in this encounter [facility] 05-04-2024 Telephone encounter Note [facility] requesting refill for Folic Acid 400mcg for 9 days w/1 refill. Prescription Request: Last medication check: 10/24/2023 Last physical exam: 04/20/2024 Next scheduled appointment: 10/20/2024 Last date of refill on this medication: 12/03/2023 [facility] 05-01-2024 Telephone encounter Note Reviewed chart. Refill appropriate. RX sent. [facility] 05-01-2024 Miscellaneous Notes Reviewed chart. Refill appropriate. RX sent. Prescription Request: Last medication check: 10/24/23 Last physical exam: 04/20/24 Next scheduled appointment: 10/20/24 Last date of refill on this medication 12/03/23 90 day 1 refill documented in this encounter [facility] 05-01-2024 Telephone encounter Note Prescription Request: Last medication check: 10/24/23 Last physical exam: 04/20/24 Next scheduled appointment: 10/20/24 Last date of refill on this medication 12/03/23 90 day 1 refill [facility] 04-20-2024 Evaluation + Plan note Associated Problem(s): Seasonal allergic rhinitis due to pollen Stable, continue Flonase and Claritin. [facility] 04-20-2024 Evaluation + Plan note Associated Problem(s): Recurrent major depressive disorder, in full remission (HCC) Stable, managed by psych continue current medications [facility] 04-20-2024 Miscellaneous Notes Associated Problem(s): Seasonal allergic [...] sleep sleep study documented in this encounter [facility] 04-20-2024 Evaluation + Plan note Associated Problem(s): Intellectual disability Stable, no current problem [facility] 04-20-2024 Evaluation + Plan note Associated Problem(s): Hyperlipidemia LDL goal <100 controlled, continue a atorvastatin 40 mg daily and fenofibrate 145 mg daily [facility] 04-20-2024 Evaluation + Plan note Associated Problem(s): Essential hypertension Can roll, continue clonidine 0.2 mg, doxazosin 2 mg losartan 100 mg [facility] 04-20-2024 Evaluation + Plan note Associated Problem(s): Loud snoring Stable, no sleep apnea on sleep sleep study [facility] 04-20-2024 History of Presen t illness Narrative [...] intellectual disability and he lives in a [facility]. He has hypertension and his blood pressure [...] 04/20/2024 12:50 PM documented in this encounter [facility] 04-06-2024 Telephone encounter Note Reviewed chart. Refill appropriate. RX sent. [facility] 04-06-2024 Miscellaneous Notes Reviewed chart. Refill appropriate. RX sent. Prescription Request: Last medication check: 10/24/2023 Last physical exam: 04/18/2023 Next scheduled appointment: 04/20/2024 Last date of refill on this medication: 11/12/2023 documented in this encounter [facility] 04-06-2024 Telephone encounter Note Prescription Request: Last medication check: 10/24/2023 Last physical exam: 04/18/2023 Next scheduled appointment: 04/20/2024 Last date of refill on this medication: 11/12/2023 [facility] 02-03-2024 Telephone encounter Note [facility] 02-03-2024 Miscellaneous Notes Pharmacy requesting refill. Prescription Request: Last medication check: 10/24/2023 Last physical exam: 04/18/2023 Next scheduled appointment: 04/20/2024 Last date of refill on this medication: 03/29/2023 documented in this encounter [facility] 02-03-2024 Telephone encounter Note Pharmacy requesting refill. Prescription Request: Last medication check: 10/24/2023 Last physical exam: 04/18/2023 Next scheduled appointment: 04/20/2024 Last date of refill on this medication: 03/29/2023 [facility] 01-17-2024 Telephone encounter Note Message released to patient as written. YANNICK Deal CNP 01/16/2024 9:02 PM EDT Home sleep study demonstrates no sleep related disorder- no sleep apnea detected. Patient's further questions if applicable: Iesha, patient's caregiver voiced understanding, no further questions or concerns at this time. Were all questions from office addressed or relayed to the patient from encounter: Yes [facility] 01-17-2024 Miscellaneous Notes Message released to patient [...] from encounter: Yes documented in this encounter [facility] 12-19-2023 Note [facility] Medical Records Department [address] [place] [address] History Physical Exam 12/19/23 1005 MR#: [id number] Acct: [id number] Name: CHAN BURCIAGA Rep #: [id number] : 1980 43 From: Michael Laguerre DO PCP: Dr. Ramiro Rosa MD Status:[facility] Location: [place] [address] HPI - General General Date of Admission: 12/19/23 Date of Service: 12/19/23 Chief Complaint: Screening colonoscopy HPI Narrative CHAN BURCIAGA, is a 43 M who presents today for screening colonoscopy. He is never had a colonoscopy in the past. He does not have any abdominal pain, chest pain or shortness of breath. [facility] Medical History (Updated 12/16/23 @ 15:42 by Debora Wong) Lives in [facility] Arthritis Back pain Non-smoker Shortness of breath [...] History mg-400 unit-5,000 unit/gram top oint (Neosporin (dst-rvn-bswes)) oxcarbazepine 600 mg tablet 600 mg PO BID 11/05/23 12/19/23 06:30 History polyethylene glycol 3350 17 238 g PO ONCE Colonoscopy prep 11/12/23 12/19/23 Rx gram/dose oral powder (Miralax) #238 grams Allergy/AdvReac Type Severity Reaction Status Date / Time risperidone (From Risperdal) Allergy ANXIETY Verified 12/19/23 09:23 Surgical History (Updated 12/16/23 @ 15:42 by Debora Wnog) Hx of cystoscopy History of testicular surgery [...] 09:20 12/19/23 09: (more content not included)... [facility] 12-19-2023 Telephone encounter Note Prescription Request: Last medication check: 10/24/23 Last physical exam: 04/18/23 Next scheduled appointment: 04/20/24 Last date of refill on this medication 06/07/23 [facility] 12-19-2023 Miscellaneous Notes Prescription Request: Last medication check: 10/24/23 Last physical exam: 04/18/23 Next scheduled appointment: 04/20/24 Last date of refill on this medication 06/07/23 documented in this encounter [facility] 12-03-2023 Telephone encounter Note Reviewed chart. Refill appropriate. RX sent. [facility] 12-03-2023 Miscellaneous Notes Reviewed chart. Refill appropriate. RX sent. Prescription Request: Last medication check: 10/24/23 Last physical exam: 04/18/23 Next scheduled appointment: 01/09/24 Last date of refill on this medication 06/26/23 documented in this encounter [facility] 12-03-2023 Telephone encounter Note Prescription Request: Last medication check: 10/24/23 Last physical exam: 04/18/23 Next scheduled appointment: 01/09/24 Last date of refill on this medication 06/26/23 [facility] 11-12-2023 Telephone encounter Note Prescription Request: Last medication check: 10/24/23 Last physical exam: 04/18/23 Next scheduled appointment: 04/20/24 Last date of refill on this medication 06/04/23 [facility] 11-12-2023 Miscellaneous Notes Prescription Request: Last medication check: 10/24/23 Last physical exam: 04/18/23 Next scheduled appointment: 04/20/24 Last date of refill on this medication 06/04/23 documented in this encounter [facility] 10-24-2023 Evaluation + Plan note Associated Problem(s): Seasonal allergic rhinitis due to pollen Stable, continue Claritin and Flonase. [facility] 10-24-2023 Evaluation + Plan note Associated Problem(s): Recurrent major depressive disorder, in full remission (HCC) Remission, continue Seroquel 150 mg nightly [facility] 10-24-2023 Miscellaneous Notes Associated Problem(s): Seasonal allergic [...] home sleep study. documented in this encounter [facility] 10-24-2023 Evaluation + Plan note Associated Problem(s): Hyperlipidemia LDL goal <100 Controlled, continue atorvastatin 40 mg daily and fenofibrate 100 mg daily [facility] 10-24-2023 Evaluation + Plan note Associated Problem(s): Essential hypertension Controlled, continue doxazosin 2 mg, clonidine 0.2 mg twice a day and losartan 100 mg daily [facility] 10-24-2023 Evaluation + Plan note Associated Problem(s): Loud snoring Order home sleep study. [facility] 10-24-2023 Evaluation + Plan note Associated Problem(s): MILAGROS (obstructive sleep apnea) Witnessed apneic episodes, will schedule patient for home sleep study. 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 Rx sent if we need to we will send him back to physical therapy. [facility] 09-27-2023 Miscellaneous Notes Associated Problem(s): Chronic midline low back pain without sciatica Will refill his nabumetone and he is to take that regularly twice a day for up to 1 to 2 weeks. Rx sent if we need to we will send him back to physical therapy. documented in this encounter [facility] 09-27-2023 History of Presen t illness Narrative [...] 09/27/2023 12:24 PM documented in this encounter [facility] 08-25-2023 Discharge summary Note Date/Time August 25, 2023 9:15pm [facility] Physical Therapy [facility] [address] [place] [address] / REHABILITATION SERVICES DISCHARGE SUMMARY MR#: [id number] Acct: [id number] Name: CHAN BURCIAGA Rep #: [id number] : 1980 42 From: Milly Andrew PT, [...] BETTER. HE IS APPROPRIATE FOR DISCHARGE TO [facility] AT THIS TIME. UPON EXAM TODAY: THIS [...] please feel free to call me at [phone]. Thank you for the referral of thispatient. Sincerely, Milly Andrew, PT, Cert MDT Balance/Gait/Functional tests Balance/Special Test Scores Oswestry Low Back Score: 8 30 Second Chair Rise Test Seconds: 16 Improvement % Improvement: 50 <Electronically signed by Surinder Sandra PT. MDT> 08/25/232114 CC: Dr. Ramiro Rosa MD ~ MERY Signed [facility] Work Phone: 1(360) 465-303103-07-2024 Telephone encounter Note* Telephone Encounter - Puja White - 07/11/2023 8:27 AM EST Prescription Request: Last medication check: 10/18/22 Last physical exam: 04/18/23 Next scheduled appointment: 10/24/23 Last date of refill on this medication 01/08/23 [id number] Miscellaneous Notes* Telephone Encounter - Puja White - 07/11/2023 8:27 AM EST Prescription Request: Last medication check: 10/18/22 Last physical exam: 04/18/23 Next scheduled appointment: 10/24/23 Last date of refill on this medication 01/08/23 [id number] Telephone encounter Note* Telephone Encounter - Puja White - 07/02/2023 12:04 PM EST Prescription Request: Last medication check: 10/18/22 Last physical exam: 04/18/23 Next scheduled appointment: 10/24/23 Last date of refill on this medication 08/08/22 [id number] Miscellaneous Notes* Telephone Encounter - Puja White - 07/02/2023 12:04 PM EST Prescription Request: Last medication check: 10/18/22 Last physical exam: 04/18/23 Next scheduled appointment: 10/24/23 Last date of refill on this medication 08/08/22 documented in this [facility]02-02-2024 Telephone encounter Note* Telephone Encounter - Puja White - 06/07/2023 8:01 AM EST Prescription Request: Last medication check: 10/18/22 Last physical exam: 04/18/23 Next scheduled appointment: 10/24/23 Last date of refill on this medication 08/08/22 [place] [id number] Miscellaneous Notes* Telephone Encounter - Puja White - 06/07/2023 8:01 AM EST Prescription Request: Last medication check: 10/18/22 Last physical exam: 04/18/23 Next scheduled appointment: 10/24/23 Last date of refill on this medication 08/08/22 documented in this [facility]12-20-2023 Telephone encounter Note* Telephone Encounter - Antonella Silva MA - 04/24/2023 11:30 AM EST Prescription Request: Last medication check: 10/18/22 Last physical exam: 04/18/23 Next scheduled appointment: 10/24/2023 Last date of refill on this medication: 02/19/22 [id number] Miscellaneous Notes* Telephone Encounter - Antonella Silva MA - 04/24/2023 11:30 AM EST Prescription Request: Last medication check: 10/18/22 Last physical exam: 04/18/23 Next scheduled appointment: 10/24/2023 Last date of refill on this medication: 02/19/22 documented in this [facility]12-14-2023 Evaluation + Plan note* Assessment & Plan Note - Ramiro Rosa MD - 04/18/2023 10:35 AM EST Associated Problem(s): Chronic midline low back pain without sciatica Continue nabumetone and will start him in physical therapy. [id number] Miscellaneous Notes* Assessment & Plan Note - [...] and losartan 100 mg documented in this [facility]12-14-2023 Evaluation + Plan note* Assessment & Plan Note - Ramiro Rosa MD - 04/18/2023 10:34 AM EST Associated Problem(s): Hyperlipidemia LDL goal <100 Controlled, continue atorvastatin 40 mg daily and fenofibrate 145 mg daily [id number] Evaluation + Plan note* Assessment & Plan Note - Ramiro Rosa MD - 04/18/2023 10:34 AM ESTAssociated Problem(s): Intellectual disability Stable, no significant change [id number] Evaluation + Plan note* Assessment & Plan Note - Ramiro Rosa MD - 04/18/2023 10:33 AM ESTAssociated Problem(s): Recurrent major depressive disorder, in full remission (HCC) Remission, continue Trileptal and Seroquel, these are managed by psych [id number] Evaluation + Plan note* Assessment & Plan Note - Ramiro Rosa MD - 04/18/2023 10:33 AM ESTAssociated Problem(s): Seasonal allergic rhinitis due to pollen Currently stable, continue allergy medicines as needed. [place] [id number] Evaluation + Plan note* Assessment & Plan Note - Ramiro Rosa MD - 04/18/2023 10:33 AM ESTAssociated Problem(s): Essential hypertension Controlled, continue clonidine 0.2 mg, doxazosin 2 mg and losartan 100 mg [place] [id number] History of Present illness Narrative* Antonella Silva [...] Healthy male, fill out paperwork for his [facility] 2. Essential hypertension Assessment & Plan: Controlled, [...] in about 6 months (around 10/18/2023). SUBJECTIVE/OBJECTIVE: [facility] Carlos Enrique comes in today for an [...] AM documented in this [facility] [id number] Telephone encounter Note* Telephone Encounter - YANNICK Jones CNP - 03/29/2023 11:06 AM EST Reviewed chart. Refill appropriate. RX sent. [id number] Miscellaneous Notes* Telephone Encounter - YANNICK Jones CNP - 03/29/2023 11:06 AM EST Reviewed chart. Refill appropriate. RX sent. * Telephone Encounter - Antonella Silva MA - 03/29/2023 11:04 AM EST Prescription Request: Last medication check: 10/18/22 Last physical exam: 04/19/22 Next scheduled appointment: 04/18/23 Last date of refill on this medication 8.4.23 documented in this [facility]11-24-2023 Telephone encounter Note* Telephone Encounter - Antonella Silva MA - 03/29/2023 11:04 AM EST Prescription Request: Last medication check: 10/18/22 Last physical exam: 04/19/22 Next scheduled appointment: 04/18/23 Last date of refill on this medication 8.4.23 [id number] Telephone encounter Note* Telephone Encounter - Ramiro Rosa MD - 02/18/2023 4:11 PM EDT Okay, thank you [id number] Miscellaneous Notes* Telephone Encounter - Ramiro Rosa [...] EDT S: Patient's caregiver Iesha spoke with [facility] nurse regarding toe injury B: Onset of [...] are no appointments available this week that [facility] nurse can schedule. Offered first available which is 02-25-23. Declined stating that pt has an appointment on that day with his foot doctor. Asking if there is anyway for him to be seen this week. R: TE sent to the office for review. Please contact Iesha at [phone] if able to be seen sooner or with further interventions. Advised to keep covered with antibiotic ointment. Ice if painful.Understands care advice. Instructed to call back with new or worsening symptoms. Reason for Disposition Toenail is completely torn off Protocols used: Toe [id number] documented in this encounterSSt. [facility] [id number] Telephone encounter Note* Telephone Encounter - Antonella Silva MA - 02/18/2023 3:46 PM EDT Notified, states he went to urgent care today but will keep appt on 02/25/23 with the foot doctor as well. [facility] [id number] Telephone encounter Note* Telephone Encounter - Ramiro Rosa MD - 02/18/2023 3:45 PM EDT If he has an appointment on the with the foot doctor he should keep that. [id number] History of Present illness Narrative* Tai YuliaYANNICK díaz.COMBINE OPERATOR - 02/18/2023 3:00 PM EDT This note was created using [employer]. Subjective Chan Burciaga is a 42 year old male. 42 year old male with PMH mild ID, impulse control, NOS, mycotic toenails, hyperlipidemia, and organic brain delusional personality disorder presents for complaints of toe pain. Acute onset 0130 today He ripped his toenail off, citing that he has a habit of doing same. States bored and nothing to do Accompanied by staff of [facility], where patient resides, citing he has done similar in past. 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 Wanted to get him checked out Staff applied topical ATB cream No fever or chills No active bleeding Pain when he puts on his tennis shoes. The history is provided by the patient and a caregiver. The history is limited by a developmental delay. No english language learner teacher was used. Pain (foot) Pain location: right [...] mg tablet Take 500 mg by mouth. Nywdiejv-VuryffhnrMk-Qepxulmiq 3.5-500-10,000 mf-uhil-jyxz oint APPLY TOPICALLY TO INSIDE OF NOSE 3TIMES DAILY NEEDED FOR DRY PATCHES omega 7-wkq-mun-fish oil 300 mg-100 mg- 150 mg-1,000 mg [...] with podiatry in 2 weeks Yulia Lujan APRN.COMBINE OPERATOR [facility] * Telephone Encounter - Milly Miller RN - 02/18/2023 12:27 PM EDT S: Patient's caregiver Iesha spoke with [facility] nurse regarding toe injury B: Onset of [...] are no appointments available this week that [facility] nurse can schedule. Offered first available which is 02-25-23. Declined stating that pt has an appointment on that day with his foot doctor. Asking if there is anyway for him to be seen this week. R: TE sent to the office for review. Please contact Iesha at [phone] if able to be seen sooner or with further interventions. Advised to keep covered with antibiotic ointment. Ice if painful.Understands care advice. Instructed to call back with new or worsening symptoms. Reason for Disposition Toenail is completely torn off Protocols used: Toe [id number] [id number] Telephone encounter Note* Telephone Encounter - Cindi Fisher MA - 01/08/2023 11:18 AM EDT Prescription Request: Last medication check: 10/18/22 Last physical exam: 04/19/22 Next scheduled appointment: 04/18/23 Last date of refill on this medication 07/09/22 31 days 5 refills [facility]hikju14-03-3876 Miscellaneous Notes* Telephone Encounter - Cindi Fisher MA - 01/08/2023 11:18 AM EDT Prescription Request: Last medication check: 10/18/22 Last physical exam: 04/19/22 Next scheduled appointment: 04/18/23 Last date of refill on this medication 07/09/22 31 days 5 refills documented in this [facility]08-04-2023 Telephone encounter Note* Telephone Encounter - Cindi Fisher MA - 12/07/2022 6:51 AM EDT Prescription Request: Last medication check: 10/18/22 Last physical exam: 04/19/22 Next scheduled appointment: 04/18/23 Last date of refill on this medication 08/14/22 16g 3 refills [facility]Oxnhua10-93-5221 Miscellaneous Notes* Telephone Encounter - Cindi Fisher MA - 12/07/2022 6:51 AM EDT Prescription Request: Last medication check: 10/18/22 Last physical exam: 04/19/22 Next scheduled appointment: 04/18/23 Last date of refill on this medication 08/14/22 16g 3 refills documented in this [facility]06-29-2023 Telephone encounter Note* Telephone Encounter - Antonella Silva MA - 11/01/2022 10:58 AM EDT Prescription Request: Last medication check: 10/18/22 Last physical exam: 04/19/22 Next scheduled appointment: 04/18/23 Last date of refill on this medication: 05/15/22 [facility]Xniisc36-47-7253 Miscellaneous Notes* Telephone Encounter - Antonella Silva MA - 11/01/2022 10:58 AM EDT Prescription Request: Last medication check: 10/18/22 Last physical exam: 04/19/22 Next scheduled appointment: 04/18/23 Last date of refill on this medication: 05/15/22 documented in [facility] CampusJodgvs09-78-2114 Telephone encounter Note* Telephone Encounter - Azul Walters - 10/25/2022 3:00 PM EDT Message released to patient as written. Patient's further questions if applicable: Yes Iesha states she has a new # [phone]. Iesha states they need the order for the prescription faxed to their office at [phone]. Stating the patient should take the medication once every 12 hours as needed for pain. Please advise. Were all questions from office addressed or relayed to the patient from encounter: Yes [facility]Xsjuey49-83-4659 Miscellaneous Notes* Telephone Encounter - Azul Walters - 10/25/2022 3:00 PM EDT Message released to patient as written. Patient's further questions if applicable: Yes Iesha states she has a new # [phone]. Iesha states they need the order for the prescription faxed to their office at [phone]. Stating the patient should take the medication [...] note were not included. YANNICK Deal CNP [facility] Clinical Community Organization Worker 23 hours ago (8:32 AM) HL It [...] note were not included. 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 Rosa Practice: [facility] Chief [...] order and to please fax this to: [phone] Attn: Laureen Gilmore. Please advise. Thank you. Best time of day caller can be reached: Any Patient advised that office/PCP has 24-48 business hours to return their call: Yes documented in this encounterSSt. [facility] CampusJrkkjc29-41-3511 Telephone encounter Note* Telephone Encounter - Antonella Silva MA - 10/24/2022 9:17 AM EDT Called Iesha, no answer and no vm. [facility] HospitalJapwrx57-11-6252 Telephone encounter Note* Telephone Encounter - Antonella Silva MA - 10/23/2022 8:20 AM EDT Images from the original note were not included. Coco Cheema, CHILDCARE AIDE - COMBINE OPERATOR [facility] Clinical Community Organization Worker 23 hours ago (8:32 AM) HL It was sent for 60 tablets. Even though it was sent saying twice a day he can use it twice a day, which is every 12 hours, as needed. Called Iesha, no answer and no vm. [facility] HospitalBelrgl45-81-1759 Telephone encounter Note* Telephone Encounter - Antonella Silva MA - 10/22/2022 8:41 AM EDT Images from the original note were not included. YANNICK Deal CNP [facility] Clinical Community Organization Worker 8 minutes ago (8:32 AM) HL It was sent for 60 tablets. Even though it was sent saying twice a day he can use it twice a day, which is every 12 hours, as needed. I called Iesha back, no answer and vm is not set up. [facility] [id number] Telephone encounter Note* Telephone Encounter - YANNICK Deal CNP - 10/22/2022 8:32 AM EDT It was sent for 60 tablets. Even though it was sent saying twice a day he can use it twice a day, which is every 12 hours, as needed. 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 Rosa Practice: [facility] Chief Complaint/Reason for Call: Caller stated they [...] order and to please fax this to: [phone] Attn: Laureen Gilmore. Please advise. Thank you. Best time of day caller can be reached: Any Patient advised that office/PCP has 24-48 business hours to return their call: Yes [facility]Jvdxlo42-43-8508 Evaluation + Plan note* Assessment & Plan Note - Ramiro Rosa MD - 10/18/2022 4:30 PM EDTAssociated Problem(s): Recurrent major depressive disorder, in full remission (HCC) Remission, continue Trileptal and Seroquel as prescribed by his psych. [place] [id number] Evaluation + Plan note* Assessment & Plan Note - Ramiro Rosa MD - 10/18/2022 4:30 PM EDTAssociated Problem(s): Hyperlipidemia LDL goal <100 Controlled, continue atorvastatin 40 mg daily and fenofibrate 145 mg daily [place] [id number] Evaluation + Plan note* Assessment & Plan Note - Ramiro Rosa MD - 10/18/2022 4:30 PM EDTAssociated Problem(s): Acute midline low back pain without sciatica Comes and goes, we will get him a refill on his nabumetone to be used twice a day as needed. [address]Mkgbwd84-33-3985 Miscellaneous Notes* Assessment & Plan Note - [...] losartan 100 mg daily documented in this [facility]06-15-2023 Evaluation + Plan note* Assessment & Plan Note - Ramiro Rosa MD - 10/18/2022 4:29 PM EDT Associated Problem(s): Essential hypertension Controlled, continue losartan 100 mg daily [facility] HospitalNbdrgb89-23-9229 History of Present illness Narrative* Lexus Landrum MA - 10/18/2022 2:15 PM EDT Patient verified by last name and date of . Patient wants a plastics fabrication supervisor in the room during during the visit. no Horseback Riding Instructor na Chelsea in room during visit * [...] He needs paperwork filled out for [employer]. Review of Systems Constitutional: Negative for activity [...] MD 10/18/2022 4:31 PM documented in this [facility]04-24-2023 Evaluation + Plan note* Assessment & Plan Note - Ramiro Rosa MD - 08/27/2022 12:35 PM EDT Associated Problem(s): Acute midline low back pain without sciatica We will send him for x-rays of his lumbar spine. Nabumetone 500 mg twice a day for up to 7 days and he can use Tylenol in addition to that. [facility] HospitalBuxxrw93-67-1115 Miscellaneous Notes* Assessment & Plan Note - Ramiro Rosa MD - 08/27/2022 12:35 PM EDTAssociated Problem(s): Acute midline low back pain without sciatica We will send him for x-rays of his lumbar spine. Nabumetone 500 mg twice a day for up to 7 days and he can use Tylenol in addition to that. documented in this [place] [address]-24-2023 History of Present illness Narrative* Ramiro Rosa [...] MD 08/27/2022 12:36 PM documented in this [place] [address]-05-2023 Telephone encounter Note* Telephone Encounter - YANNICK Jones CNP - 08/08/2022 9:05 AM EDT Reviewed chart. Refill appropriate. RX sent. [facility] HospitalGkjpfx19-02-8158 Miscellaneous Notes* Telephone Encounter - YANNICK Jones [...] 90 day 1 refill documented in this [place] [address]-05-2023 Telephone encounter Note* Telephone Encounter - Lexus Landrum MA - 08/08/2022 8:23 AM EDT Prescription Request: Last medication check: 10/12/21 Last physical exam: 04/19/22 Next scheduled appointment: 10/18/22 CSA on file (date): na Last urine drug screen: na Last date of refill on this medication 02/19/22 loratadine, folic acid, fenofibrate, multivitamin, omega 3 all 1month 5 refills 04/19/22 atorvastatin 90 day 1 refill [facility]Xytbfj37-57-2764 Telephone encounter Note* Telephone Encounter - YANNICK Deal CNP - 07/09/2022 2:58 PM EST Rx sent. Follow up as scheduled. [facility] HospitalLgfrje07-97-6260 Miscellaneous Notes* Telephone Encounter - YANNICK Deal [...] refill documented in this encounterSSt. [facility] CampusQpaphw82-75-0589 Telephone encounter Note* Telephone Encounter - Lexus Landrum MA - 07/09/2022 7:23 AM EST Prescription Request: Last medication check: 10/12/21 Last physical exam: 04/19/22 Next scheduled appointment: 10/18/22 CSA on file (date): na Last urine drug screen: na Last date of refill on this medication 02/26/22 90 day 1 refill [facility] HospitalSfintd89-25-3524 Telephone encounter Note* Telephone Encounter - Cindi Fisher - 05/04/2022 12:42 PM EST Iesha notified. 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 [facility] CampusYtkeqf52-59-5629 Telephone encounter Note* Telephone Encounter - YANNICK Jones CNP - 05/04/2022 12:24 PM EST The fax was reviewed. Blood pressures remain elevated. Increase losartan to 100 mg and monitor blood pressure daily, provide readings to office in 2 weeks. Will sent new rx [employer] [id number] Telephone encounter Note* Telephone Encounter - Dmitry Benedict - 05/04/2022 11:05 AM EST URGENT: PATIENT WILL BE OUT OF BP MEDICATION THIS WEEKEND. 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 complaint+Reason for visit Narrative* Chief Complaint COVID COVID TEST Reason for Visit COVID-19 [facility] Work Phone: Chief complaint+Reason for visit Narrative* Chief Complaint COVID COVID TEST HTN Reason for Visit COVID-19 [facility] Work Phone: Evaluation note* Diagnosis Onset Date Resolution Status COVID-19 acute [facility] Work Phone: Evaluation noteNo assessment information available [facility] Work Phone: Evaluation note* Diagnosis Acute midline low back pain without sciatica- Primary Acute midline low back pain without sciatica documented in this [facility]* Diagnosis Acute midline low back pain without sciatica documented in this encounter [facility]* Diagnosis Essential hypertension- Primary Unspecified essential hypertension Hyperlipidemia LDL goal <100 Other and unspecified hyperlipidemia Recurrent major depressive disorder, in full remission (HCC) Acute midline low back pain without sciatica documented in this encounter [facility]* Diagnosis Seasonal allergic rhinitis due to pollen documented in this encounter [facility]* Diagnosis Toenail torn away- Primary [facility]* Diagnosis Seasonal allergic rhinitis due to pollen documented in this encounter [facility]* Diagnosis Annual physical exam- Primary Routine [...] pain without sciatica [facility]* Diagnosis Onset Date Resolution Status Urinary tract infection with hematuria acute [facility] Work Phone: Evaluation note* Diagnosis Essential hypertension- Primary Unspecified essential hypertension Hyperlipidemia LDL goal <100 Other and unspecified hyperlipidemia [facility] this [facility]* Diagnosis Chronic midline low back pain without sciatica- Primary documented in this encounter [facility]* Diagnosis Essential hypertension- Primary Unspecified essential hypertension Hyperlipidemia LDL goal <100 Other and unspecified hyperlipidemia Recurrent major depressive disorder, in full remission (HCC) Seasonal allergic rhinitis due to pollen MILAGROS (obstructive sleep apnea) Obstructive sleep apnea (adult) (pediatric) Loud snoring Screening for colon cancer Special screening for malignant neoplasms, colon documented in this encounter [facility]* Diagnosis Hyperlipidemia LDL goal <100 Other and unspecified hyperlipidemia documented in this encounter [facility]* Diagnosis Seasonal allergic rhinitis due to pollen documented in this encounter [facility]* Diagnosis MILAGROS (obstructive sleep apnea) Obstructive sleep apnea (adult) (pediatric) Loud snoring [facility]* Diagnosis Annual physical exam- Primary Routine [...] and unspecified hyperlipidemia [facility]* Diagnosis Annual physical exam- Primary Routine [...] and unspecified hyperlipidemia [facility] this encounter [facility]* Diagnosis Acute cystitis with hematuria- Primary Acute cystitis [facility] Diagnosis Annual physical exam- Primary Routine [...] and unspecified hyperlipidemia documented in this encounter [facility] for referral (narrative)No reason for referral information availableWWexner Medical Center Work Phone: Advance Directives No Advanced Directives Records Found Advance Directive Response Recorded Date/ Time Living Will No March 03 12:18pm Power of Bead Maker No March 03, 2021 12:18pm Advance Directive Response Recorded Date/ Time Living Will No April 17, 2 022 11:27am Power of Bead Maker No April 17, 2022 11:27am Advance Directive Response Recorded Date/ Time Living Will No April 17, 2 022 12:27pm Power of Bead Maker No April 17, 2022 12:27pm Reason for Referral Specialty Diagnoses / Procedures Referred By Di cook Referred To Contact Physical Therapy Diagnoses Chronic midline low back pain without sciatica Procedures DE OFFICE/OUTPATIENT [facility] HIGH MDM 60-74 MINUTES Ramiro Rosa MD [address] [facility] [facility], [place] [address] Referral ID Status Reason Start Date Expiration Date Visits Requested Visits Authorized [id number] Pending Review Eval and Treat 3 10/15/2023 99 99 Scheduling Instructions [facility] [place] Specialty Diagnoses / Procedures Referred By Di cook Referred To Contact Sleep Medicine Diagnoses MILAGROS (obstructive sleep apnea) Loud snoring Procedures Home sleep test Ramiro Rosa MD [address] [facility] [place] [address] Referral ID Status Reason Start Date Expiration Date V isits Requested Visits Authorized [id number] Authorized 10/24/2023 10/18/2024 1 1 Specialty Diagnoses / Procedures Referred By Di cook Referred To Contact Gastroenterology Diagnoses Screening for colon cancer Procedures DE OFFICE/OUTPATIENT [facility] MDM 60 MINUTES Ramiro Rosa MD [address] [place] [address], [facility] [place] [address] [address], [address] [place] [address] Referral ID Status Reason Start Date Expiration Date Visits Requested Visits Authorized [id number] Pending Review Specialty Services Required 10/24/2023 10/23/2024 [...] Procedures Home sleep test Ramiro Rosa MD [place] [phone] Referral ID Status Reason Start Date Expiration Date Visits Re quested Visits Authorized [id number] Closed 10/24/2023 10/18/2024 1 1 Reason Onset [...] Care Teams (unrecognized sec tion and content) Irrigation District Manager Relationship Specialty Start Date [place] [address] PCP - General 03/11/15 Team Status: Active Member Role Status Dates Dr. Ramiro Rosa MD Family Provider Active Dr. Ramiro Rosa MD Primary Care Provider Active Team Status: Inactive Member Role Status Dates Dr. Ramiro Rosa MD Primary Care Provider Active Dr. lEeni Borden MD Attending Provider Active Irrigation District Manager Relationship Specialty Start Date [place] [address] PCP - General 03/11/15 Irrigation District Manager Relationship Specialty Start Date [place] [address] PCP - General 03/11/15 Irrigation District Manager Relationship Specialty Start Date End Date Ramiro Rosa MD [address] [place] [id number] PCP - General 03/11/15 Irrigation District Manager Relationship Specialty Start Date End Date Ramiro Rosa MD [address] [place] [id number] PCP - General 03/11/15 Irrigation District Manager Relationship Specialty Start Date End Date Ramiro Rosa MD [address] [place] [id number] PCP - General 03/11/15 Irrigation District Manager Relationship Specialty Start Date End Date Ramiro Rosa MD [address] [place] [id number] PCP - General 03/11/15 Irrigation District Manager Relationship Specialty Start Date End Date Ramiro Rosa MD [address] [facility] [place] [address] PCP - General 03/11/15 Irrigation District Manager Relationship Specialty Start Date End Date Ramiro Rosa [address] [facility] [place] [address] PCP - General Family Medicine 06/12/21 Irrigation District Manager Relationship Specialty Start Date End Date Ramiro Rosa MD [address] [facility] [place] [address] PCP - General 03/11/15 Irrigation District Manager Relationship Specialty Start Date End Date Ramiro Rosa MD [address] [facility] [place] [address] PCP - General 03/11/15 Irrigation District Manager Relationship Specialty Start Date End Date Ramiro Rosa MD [address] [place] [address] [place] [address] PCP - General 03/11/15 Team Status: Inactive Member Role Status Dates Dr. Ramiro Rosa MD Primary Care Provider, Referri ng Provider Active NORRIS Ramos Attending Provider Active Team Status: Inactive Member Role Status Dates Dr. Ramiro Rosa MD Primary Care Provider Active NORRIS Ramos Attending Provider, Referring Pr ovider Active Irrigation District Manager Relationship Specialty Start Date End Date Ramiro Rosa MD [address] [facility] [place] [address] PCP - General 03/11/15 Irrigation District Manager Relationship Specialty Start Date End Date Ramiro Rosa MD [address] [facility] [place] [address] PCP - General 03/11/15 Team Status: Inactive Member Role Status Dates Dr. Ramiro Rosa MD Primary Care Provider, Attendi Provider Active Irrigation District Manager Relationship Specialty Start Date End Date Ramiro Rosa MD [address] [facility] [place] [address] PCP - General 03/11/15 Irrigation District Manager Relationship Specialty Start Date End Date Ramiro Rosa MD [address] [facility] [place] [address] PCP - General 03/11/15 Irrigation District Manager Relationship Specialty Start Date End Date Ramiro Rosa MD [address] [facility] [place] [address] PCP - General 03/11/15 Irrigation District Manager Relationship Specialty Start Date End Date Ramiro Rosa MD [address] [facility] [place] [address] PCP - General 03/11/15 Irrigation District Manager Relationship Specialty Start Date End Date Ramiro Rosa MD [address] [facility] [place] [address] PCP - General 03/11/15 Irrigation District Manager Relationship Specialty Start Date End Date Ramiro Rosa MD [address] [facility] [place] [address] PCP - General 03/11/15 Irrigation District Manager Relationship Specialty Start Date End Date Ramiro Rosa MD [address] [facility] [place] [address] PCP - General 03/11/15 Irrigation District Manager Relationship Specialty Start Date End Date Ramiro Rosa MD [address] [facility] [place] [address] PCP - General 03/11/15 Irrigation District Manager Relationship Specialty Start Date End Date Ramiro Rosa MD [address] [facility] [place] [address] PCP - General 03/11/15 Irrigation District Manager Relationship Specialty Start Date End Date Ramiro Rosa MD [address] [place] [address] PCP - General 03/11/15 Irrigation District Manager Relationship Specialty Start Date End Date [place]amiro Rosa [place] [address] PCP - General 03/11/15 Irrigation District Manager Relationship Specialty Start Date End Date Ramiro Rosa MD [address] [place] [address] PCP - General 03/11/15 Irrigation District Manager Relationship Specialty Start Date End Date Ramiro Rosa MD [address] [place] [address] PCP - General 03/11/15 Irrigation District Manager Relationship Specialty Start Date End Date Ramiro Rosa MD [address] [place] [address] PCP - General 03/11/15 Team Status: Inactive Member Role Status Dates Dr. Ramiro Rosa MD Primary Care Provider Active Start: June 26, 2024 End: June 26, 2024 Dr. Dajuan HINDS MD Attending Provider Active Start: June 26, 2024 End: June 26, 2024 Dr. Dajuan HINDS MD Referring Provider Active Start: June 26, 2024 End: June 26, 2024 Irrigation District Manager Relationship Specialty Start Date End Date Ramiro Rosa MD [address] [place] [address] PCP - General 03/11/15 Irrigation District Manager Relationship Specialty Start Date End Date Ramiro Rosa [address] [place], [place] [id number] PCP - General Family Medicine 06/12/21 Irrigation District Manager Relationship Specialty Start Date End Date Ramiro Rosa [address] [place] [address] PCP - General Family Medicine 06/12/21 Source Comments (unrecognize d section and content) In the event this informatio n is protected by the Federal Confidentiality of Alcohol and Drug Abuse Patient Records regulations: The Federal rules restrict any use of the information to criminally investigate or prosecute any alcohol or drug abuse patient.[facility] the event this information is protected by the Federal Confidentiality of Alcohol and Drug Abuse Patient Records regulations: The Federal rules restrict any use of the information to criminally investigate or prosecute any alcohol or drug abuse patient.[facility] Center[facility] the event this information is protected by the Federal Confidentiality of Alcohol and Drug Abuse Patient Records regulations: The Federal rules restrict any use of the information to criminally investigate or prosecute any alcohol or drug abuse patient.[facility] (unrecognized sect ion and content) No Status Records FoundNo Status Records FoundNo Status Records Found INFORMATION SOURCE (unrecogn ized section and content) DATE CREATED AUTHOR 07/11/2024 [facility] DATE CREATED AUTHOR AUTHOR'S ORGANIZ ATION 10/02/2024 [facility] DATE CREATED AUTHOR AUTHOR'S ORGANIZ ATION 10/04/2024 [facility] FOR RECORDS PERTAINING TO PATIENTS WHO ARE [...] BE BASED ON THE PRIMARY CLINICAL RECORDS. [facility]. provides no warranty or guarantee of the accuracy or completeness of information in this document.
[2024-10-09] VITALS (10 sets, daily range): BP systolic 121–156; BP diastolic 78–87; PULSE 79–87; RESP 16–18; TEMP 36.1–36.8; O2SAT 88–98; BMI 31.6
[2024-10-09] MEDS: oxyCODONE 5 MG Tablet PO (01:00)
[2024-10-09] MEDS: Morphine 4 MG/ML Syringe IV (03:45)
[2024-10-09] MEDS: 0.9% Saline Lock 10 ML Syringe IV (03:45)
[2024-10-09] MEDS: guaiFENesin 10 ML UDC (200MG/10ML) 20 ML PO (03:46)
[2024-10-09 05:15] LABS: Absolute Neutrophil Count 4.9 X10^3/uL (2.0-7.7); Basophil# 0.06 X10^3/uL; Basophil% 0.7 % (0-1); Eosinophils% 5.5 % (0-5); Hematocrit 38.1 % (40-54); Hemoglobin 12.7 g/dL (13.0-16.5); Lymphocyte % 31.8 % (19-41); Mean Corp Hgb Conc 33.3 g/dL (32-36); Mean Corpuscular Hgb 28.8 pg (27.0-32.0); Mean Corpuscular Volume 86.4 fL (80-94); Mean Platelet Vol. 8.8 fl (6.2-12.0); Monocyte# 0.77 X10^3/uL; Monocyte% 8.4 % (0-10); NRBC Flagged by Analyzer 0 % (0-5); Neutrophil # 4.87 X10^3/uL (2.7-7.7); Neutrophil % 53.3 % (47-70); Platelet Count 332 K/mm3 (150-450); RBC Distribution Width CV 13.7 % (11.6-14.6); RBC Distribution Width SD 42.9 fl (35.1-43.9); Red Blood Count 4.41 M/mm3 (4.6-6.2); White Blood Count 9.1 K/mm3 (4.4-11.0)
[2024-10-09 05:57] LABS: ALB/GLOB Ratio 1.8 RATIO (0.9-2.4); AST(SGOT) 40 U/L (<=37); Alanine Aminotransfer ALT/SGPT 55 U/L (<=46); Albumin, Serum 3.9 g/dL (3.5-5.0); Alkaline Phosphatase 67 U/L (40-129); Anion Gap 12 (5-15); BUN 17 mg/dL (4-19); BUN/Creat Ratio 12.4 RATIO (10-20); Calcium,Total 9.1 mg/dL (7.6-11.0); Carbon Dioxide 21.2 mmol/L (21.0-32.0); Chloride 104 mmol/L (98-108); Creatinine, Serum 1.39 mg/dL (0.70-1.20); EST Glomerular Filtration Rate 64 (>60); Estimated Creatinine Clearance 67.68 ml/min (50-250); Globulin 2.2 g/dL (2.2-4.2); Glucose 100 mg/dL (70-99); Potassium 3.8 mmol/L (3.3-5.1); Protein, Total 6.2 g/dL (5.9-8.4); Sodium Level 137 mmol/L (133-145); Total Bilirubin 0.38 mg/dL (0.00-1.30)
--- NOTE | 2024-10-09 06:04 | EKG12_ITS ---
Test Reason : SOB Blood Pressure : */* mmHG Vent. Rate : 82 BPM Atrial Rate : 82 BPM P-R Int : 158 ms QRS Dur : 100 ms QT Int : 374 ms P-R-T Axes : 36 -24 26 degrees QTcB Int : 436 ms Normal sinus rhythm Incomplete right bundle branch block Borderline ECG When compared with ECG of 28-Sep-2010 09:58, Vent. rate has decreased by [address] no longer depressed in Lateral leads T wave inversion no longer evident in Lateral leads Confirmed by Delbert Faye ([id number]), editor newspaper KATELYNN RODRIGUEZ ([id number]) on 10/12/2024 9:11:11 AM Referred By: MELIDA Confirmed By: Delbert Faye
[2024-10-09] MEDS: 0.9% Normal Saline (1000mL) 1,000 ML 100 ML IV (08:14)
--- NOTE | 2024-10-09 11:39 | PCM.CONS.U ---
HPI Consult Data Date of Consult: 10/09/24 HPI Narrative Reason for Consultation: BPH with obstruction, bladder stones, and left kidney stone HPI Narrative: CHAN ACE, is a 43 M who presentswith abdominal pain CAT scan was done demonstrated stone and obstructing the left kidney plan to do a cystoscopy left stent placement today he also has multiple stones his bladder he does have significant BPH with obstruction a very large prostate. At this point were to do this place a stent to alleviate obstruction and what the deal with the other stones and of the findings a separate setting once everything stable. FORMERLY [facility], [facility]–1983 Medical History Lives in assisted Arthritis Back pain Non-smoker Shortness of breath on exertion Intellectual disability Recurrent major depression in full remission Hyperlipidemia Essential hypertension Urinary tract infection with hematuria Home Medications ?Medication ?Instructions ?Recorded ?Last Taken ?Type fenofibrate nanocrystallized 145 145 mg PO DAILY 07/08/18 12/18/23 History mg tablet folic acid 400 mcg tablet 0.4 mg PO DAILY@0800 07/08/18 12/18/23 History garlic 200 mg tablet 350 mg PO DAILY 07/08/18 12/18/23 History loratadine 10 mg capsule (Claritin 10 mg PO DAILY 07/08/18 12/18/23 History Liqui-Gel) omega-3 fatty acids-fish oil 340 3 ea PO DAILY 07/08/18 12/15/23 History mg-1,000 mg capsule (Fish Oil) ammonium lactate 12 % topical cream 1 applic topical DAILY 05/29/23 12/18/23 History atorvastatin 40 mg tablet 40 mg PO DAILY 05/29/23 12/18/23 History clonidine HCl 0.2 mg tablet 0.2 mg PO BID 05/29/23 12/19/23 06:30 History doxazosin 2 mg tablet 2 mg PO QHS 05/29/23 12/18/23 History fluticasone propionate 50 2 spray intranasal DAILY 05/29/23 12/18/23 History mcg/actuation nasal spray,suspension (Allergy Relief (fluticasone)) losartan 100 mg tablet 100 mg PO DAILY 05/29/23 12/19/23 06:30 History multivitamin-ferrous 1 tab PO DAILY 05/29/23 12/18/23 History fumarate-folic acid 18 mg-400 mcg tablet (Certavite-Antioxidant) nabumetone 500 mg tablet 500 mg PO BID PRN pain 05/29/23 Unknown History quetiapine 150 mg tablet,extended 150 mg PO 1600 05/29/23 12/18/23 History release 24 hr neomycin-bacitracn Zn-polymyx 3.5 1 applic topical TID PRN dry skin 11/05/23 Unknown History mg-400 unit-5,000 unit/gram top oint (Neosporin ([id number]-bsnls)) oxcarbazepine 600 mg tablet 600 mg PO BID 11/05/23 12/19/23 06:30 History polyethylene glycol 3350 17 238 g PO ONCE Colonoscopy prep 11/12/23 12/19/23 Rx gram/dose oral powder (Miralax) #238 grams Allergy/AdvReac Type Severity Reaction Status Date / Time risperidone (From Risperdal) Allergy ANXIETY Verified 10/08/24 16:53 Family History (Updated 10/08/24 @ 20:[address] Yamileth Aguirre MD) Mother Hyperlipidemia Father Hyperlipidemia Surgical History Hx of cystoscopy History of testicular surgery History of ankle surgery Social History household members: other details: Lives with others in residential home number of children: 0 Smoking Status: Never smoker alcohol intake: never substance use type: does not use Lab / Micro Data 10/09/24 05:03 10/09/24 05:03 Labs: Laboratory Results - last 24 hr 10/08/24 17:17: WBC 13.8 H, RBC 4.73, Hgb 13.7, Hct 40.6, MCV 85.8, MCH 29.0, MCHC 33.7, RDW Std Deviation 41.9, RDW Coeff of Jaime 13.4, Plt Count 327, MPV 9.0, Immature Gran % (Auto) 0.700, Neut % (Auto) 68.7, Lymph % (Auto) 19.2, Wayne % (Auto) 8.0, Eos % (Auto) 2.9, Baso % (Auto) 0.5, Absolute Neuts (auto) 9.5 H, Absolute Lymphs (auto) 2.64, Nucleated RBC % 0, Sodium 135, Potassium 4.0, Chloride 101, Carbon Dioxide 19.3 L, Anion Gap 15, BUN 18, Creatinine 1.32 H, Estim Creat Clear Calc 72.57, Est GFR (MDRD) Non-Af 68, BUN/Creatinine Ratio 13.4, Glucose 100 H, Calcium 9.9, Total Bilirubin 0.33, AST 51 H, ALT 66 H, Alkaline Phosphatase 75, Total Protein 7.1, Albumin 4.4, Globulin 2.7, Albumin/Globulin Ratio 1.6 10/08/24 18:31: Urine Color Yellow, Urine Clarity Cloudy, Urine pH 7.0, Ur Specific [place] 1.010, Urine Protein 30 H, Urine Glucose (UA) Normal, Urine Ketones Negative, Urine Occult Blood 250 H, Urine Nitrite Negative, Urine Bilirubin Negative, Urine Urobilinogen Normal, Ur Leukocyte Esterase 25 H, Urine RBC > 100 SEEN, Urine WBC 0 SEEN, Ur Squamous Epith Cells 0 SEEN, Urine Bacteria 2+, Urine Mucus 0 SEEN 10/09/24 05:03: WBC 9.1, RBC 4.41 L, Hgb 12.7 L, Hct 38.1 L, MCV 86.4, MCH 28.8, MCHC 33.3, RDW Std Deviation 42.9, RDW Coeff of Jaime 13.7, Plt Count 332, MPV 8.8, Immature Gran % (Auto) 0.300, Neut % (Auto) 53.3, Lymph % (Auto) 31.8, Wayne % (Auto) 8.4, Eos % (Auto) 5.5 H, Baso % (Auto) 0.7, Absolute Neuts (auto) 4.9, Absolute Lymphs (auto) 2.90, Nucleated RBC % 0, Sodium 137, Potassium 3.8, Chloride 104, Carbon Dioxide 21.2, Anion Gap 12, BUN 17, Creatinine 1.39 H, Estim Creat Clear Calc 67.68, Est GFR (MDRD) Non-Af 64, BUN/Creatinine Ratio 12.4, Glucose 100 H, Calcium 9.1, Total Bilirubin 0.38, AST 40 H, ALT 55 H, Alkaline Phosphatase 67, Total Protein 6.2, Albumin 3.9, Globulin 2.2, Albumin/Globulin Ratio 1.8 Imaging Radiology Impression Abdomen/Pelvis CT 10/08/24 17:09 IMPRESSION: 9 mm obstructive stone at the distal left ureter with associated upstream moderate hydroureteronephrosis. Multiple urinary bladder stones are noted. Mild thickening of the urinary bladder wall which may reflect cystitis versus partial nondistention; consider correlation with urinalysis. Enlarged prostate with abutment onto the urinary bladder wall. Reading Location: [id number]
--- NOTE | 2024-10-09 12:14 | PRE.ANES_ITS ---
ASA Classification* ASA Classification ASA Classification: 3 and E Assessment & Plan Anesthesia* Anesthesia Assessment Anesthesia Assessment: Discussed sedation and/or anesthesia options, risks, benefits, and alternatives with patient/parents/legal guardian/POA. Questions invited. The patient/parents/legal guardian/POA seems to understand and agrees to proceed with anesthesia plan. Reviewed the physical assessment, medical history, allergy history and patient home medications list prior to surgery/procedure/anesthetic and documented any changes. Performed airway and anesthesia risk assessments. Anesthesia Type Anesthesia Type: MAC Anesthesia Focused Assessment* Temperature: 97.8 F Pulse Rate: 87 Blood Pressure: 156/81 Respiratory Rate: 16 Pulse Ox: 95 Airway Assessment Mouth opens: >3 cm Mallampati Score: II Labs Anesthesia Preop lab: CBC WBC 9.1 K/mm3 (4.4-11.0) 10/09/24 05:03 10/09/24 RBC 4.41 M/mm3 (4.6-6.2) L 10/09/24 05:03 10/09/24 Hgb 12.7 g/dL (13.0-16.5) L 10/09/24 05:03 5 Hct 38.1 % (40-54) L 10/09/24 05:03 10/09/24 Plt Count 332 K/mm3 (150-450) 10/09/24 05:03 10/09/24 CHEMISTRY Potassium 3.8 mmol/L (3.3-5.1) 10/09/24 05:03 10/09/24 Sodium 137 mmol/L (133-145) 10/09/24 05:03 10/09/24 BUN 17 mg/dL (4-19) 10/09/24 05:03 10/09/24 Creatinine 1.39 mg/dL (0.70-1.20) H 10/09/24 05:03 Glucose 100 mg/dL (70-99) H 10/09/24 05:03 10/09/24 COAG Pre-Assessment Diagnosis/Proposed Procedure Planned Operative Procedure(s): Cystoscopy ureteral stent placement. Anesthesia History Anesthesia History - clinical studies specialist: Anesthesia History - clinical studies specialist Hx Hospitalization No 12/16/23 15:36 Any Problems With Anesthesia No 12/16/23 15:36 Cholinesterase deficiency No 12/16/23 15:36 You/Your Family Experience No 12/16/23 15:36 fever (hyperthermia) with Relationship Recent Exposure to Contagious No 12/19/23 09:20 Disease Does patient have nerve No 12/16/23 15:36 stimulator Patient instructed to have device shut off --Does patient have Pacemaker No 10/09/24 10:19 or ICD? When Was Last Pacemaker Check QUESTION #4 FULL TEXT: You/Your Family Experience fever (hyperthermia) with Anesthesia Last Oral Intake Last Oral intake: Last Oral Intake NPO since 00:00 10/09/24 10:19 Meds taken in AM with sips of No 10/09/24 10:19 water? Meds patient instructed to take am of surgery PONV PONV - clinical studies specialist: PONV - clinical studies specialist Female HX of Motion Sickness HX of N/V After Surgery Non-Smoker Duration of Surgery greater than 60 minutes Number of Risk Factors PONV Score Height & Weight Height & Weight: Anesthesia: Height & Weight Height 5 ft 4.96 in 10/09/24 10:19 Weight: 86 kg 10/09/24 10:19 Body Mass Index (BMI) 31.6 10/09/24 10:19 Respiratory Assessment Respiratory Assessment - clinical studies specialist: Respiratory Tract Infection Hx - clinical studies specialist Hx Respiratory Tract Infection No 12/16/23 15:36 STOP Sleep Apnea STOP Sleep Apnea - clinical studies specialist: STOP Sleep Apnea - clinical studies specialist Hx Hypertension Yes: CONTROLLED WITH MED 10/08/24 21:22 Hx Sleep Apnea No 10/08/24 21:22 CPAP BIPAP Do you snore loudly (louder Yes 10/08/24 21:22 than talking or can be heard Do you often feel tired/ Yes 10/08/24 21:22 fatigued/ sleepy during daytime? Has anyone observed you stop No 10/08/24 21:22 breathing during sleep? STOP Results Positive 10/08/24 21:22 QUESTION #5 FULL TEXT : Do you snore loudly (louder than talking or can be heard through closed doors)? Tobacco Use History Tobacco Use History - clinical studies specialist: Tobacco Use History - clinical studies specialist Tobacco Use Non-smoker 03/02/21 15:59 Smoking Status Never smoker 10/08/24 21:22 Hx Tobacco Use No 10/08/24 21:22 Years Smoking Packs Smoked per Day Smoking Cessation Date was within the last 15 years Hx Smoking Cessation Date Hx Smoking Cessation Counseling Hematologic Medial History Hematologic Hx - clinical studies specialist: Hematologic Medical Hx - websphere commerce architect Hx of Blood Transfusion No 10/08/24 21:22 Hx of Transfusion in last 3 No 10/08/24 21:22 Months Date of Last Transfusion (if within last 3 months) Ever experience any problems No 10/08/24 21:22 with transfusion(s)? Specify any problems Hx of Preganancy in last 3 N/A 10/08/24 21:22 Months Nurse Filling Out Transfusion [email or web address] 10/08/24 21:22 & Questions: Date: 10/08/24 10/08/24 21:22 Time: 10/08/24 21:22 Patient unable to answer at this time (ie. confused, unrespo /Reproduction History /Reproductive History - clinical studies specialist: /Reproductive Hx- clinical studies specialist Hx Now Gestational Age (in weeks): EDC: Hx Hx Para Hx Section SAB No 12/16/23 15:36 Active Medications Active Medications: Current Medications Generic Name Dose Route Start Last Admin Trade Name Freq PRN Reason Stop Dose Admin Acetaminophen 650 mg 10/08/24 21:21 10/08/24 22:02 Acetaminophen 325 Mg Tablet PO 650 mg Q4H PRN PRN Administration Fever, pain 1-10/10 Al Hydroxide/Mg Hydroxide 30 ml 10/08/24 21:21 Mag Hydrox/Al Hydrox/Simeth 30 Ml Udc PO Q6H PRN PRN Gastric Burning Albuterol Sulfate 2.5 mg 10/08/24 21:21 Albuterol 2.5 Mg/3 Ml Vial.Neb. INHALATION Q2H PRN PRN Dyspnea, wheezing Atorvastatin Calcium 40 mg 10/08/24 22:00 10/08/24 22:03 Atorvastatin Calcium 40 Mg Tablet PO 40 mg 2200 VIDHI Administration Clonidine 0.2 mg 10/08/24 22:00 10/08/24 22:03 Clonidine Hcl 0.2 Mg Tablet PO 0.2 mg BID VIDHI Administration Protocol Doxazosin Mesylate 2 mg 10/08/24 22:00 10/08/24 22:03 Doxazosin 1 Mg Tablet PO 2 mg QHS VIDHI Administration Famotidine 20 mg 10/08/24 22:00 10/08/24 22:04 Famotidine 20 Mg Tablet PO 20 mg BID VIDHI Administration Fenofibrate 145 mg 10/09/24 10:00 Fenofibrate 145 Mg Tablet PO DAILY [facility] Fluticasone Propionate 2 spray 10/09/24 10:00 Fluticasone 0.05% 1 [place] Nasal.Sry NASAL DAILY [facility] Guaifenesin 20 ml 10/08/24 21:21 10/09/24 03:46 Guaifenesin 10 Ml Udc (200mg/10ml) PO 20 ml Q4H PRN PRN Administration COUGH Hydralazine HCl 10 mg 10/08/24 21:21 Hydralazine 20 Mg/Ml Vial IV Q4H PRN PRN SBP > 160 Protocol Sodium Chloride 250 mls @ 15 mls/hr 10/08/24 21:42 IV .[id number] PRN Saline Flush Sodium Chloride 250 mls @ 15 mls/hr 10/08/24 21:42 IV .[id number] PRN Additional IVPB Infusion Cefazolin Sodium 2 gm/ Sodium 110 mls @ 150 mls/hr 10/09/24 12:04 Chloride IV 10/09/24 12:47 X1 ONE Ketorolac Tromethamine 15 mg 10/08/24 21:21 Ketorolac 15 Mg/Ml Vial IV 10/13/24 21:21 Q6H PRN PRN Pain Score 1-10 Lactic Acid 1 applic 10/09/24 10:00 Ammonium Lactate 225 Gm Bottle TOPICAL DAILY [facility] Loratadine 10 mg 10/09/24 10:00 Loratadine 10 Mg Tablet PO DAILY [facility] Losartan Potassium 100 mg 10/09/24 10:00 Losartan Potassium 100 Mg Tablet PO DAILY [facility] Protocol Melatonin 3 mg 10/08/24 21:21 Melatonin 3 Mg Tablet PO QHS PRN PRN INSOMNIA Morphine Sulfate 4 mg 10/08/24 21:21 10/09/24 03:45 Morphine 4 Mg/Ml Syringe IV 4 mg Q3H PRN PRN Administration Pain Score 6-10 Ondansetron HCl 4 mg 10/08/24 21:21 Ondansetron 4 Mg/2 Ml Vial IV Q8H PRN PRN NAUSEA/VOMITING Oxcarbazepine 600 mg 10/08/24 22:00 10/08/24 22:04 Oxcarbazepine 600 Mg Tablet PO 600 mg BID VIDHI Administration Oxycodone HCl 5 mg 10/08/24 21:21 10/09/24 01:00 Oxycodone 5 Mg Tablet PO 5 mg Q4H PRN PRN Administration Pain Score 4-10 Prochlorperazine Edisylate 5 mg 10/08/24 21:21 Prochlorperazine 10 Mg/2 Ml Vial IV Q4H PRN PRN Breakthrough nausea/vomiting Quetiapine Fumarate 100 mg 10/09/24 16:00 Quetiapine 100 Mg Tablet PO 1600 VIDHI Quetiapine Fumarate 50 mg 10/09/24 16:00 Quetiapine 25 Mg Tablet PO 1600 VIDHI Senna/Docusate Sodium 2 tablet 10/08/24 21:21 Senna/Docusate Sodium 1 Tablet PO BID PRN PRN Constipation Sodium Chloride 10 - 40 ml 10/08/24 21:42 10/09/24 03:45 0.9% Saline Lock 10 Ml Syringe IV 10 ml UD PRN Administration SALINE FLUSH PFSH Medical History Lives in shelter Arthritis Back pain Non-smoker Shortness of breath on exertion Intellectual disability Recurrent major depression in full remission Hyperlipidemia Essential hypertension Urinary tract infection with hematuria Home Medications ?Medication ?Instructions ?Recorded ?Last Taken ?Type fenofibrate nanocrystallized 145 145 mg PO DAILY 07/0812/18/23 History mg tablet folic acid 400 mcg tablet 0.4 mg PO DAILY@0800 9 12/18/23 History garlic 200 mg tablet 350 mg PO DAILY 07/08/18 History loratadine 10 mg capsule (Claritin 10 mg PO DAILY 09/2112/18/23 History Liqui-Gel) omega-3 fatty acids-fish oil 340 3 ea PO DAILY 9 12/15/23 History mg-1,000 mg capsule (Fish Oil) ammonium lactate 12 % topical cream 1 applic topical D AILY 05/29/23 12/18/23 History atorvastatin 40 mg tablet 40 mg PO DAILY 05/29/2312/04 History clonidine HCl 0.2 mg tablet 0.2 mg PO BID 05/29/23 06:30 History doxazosin 2 mg tablet 2 mg PO QHS 05/29/23 4 History fluticasone propionate 50 2 spray intranasal DAILY 12/18/23 History mcg/actuation nasal spray,suspension (Allergy Relief (fluticasone)) losartan 100 mg tablet 100 mg PO DAILY 05/29/23 06:30 History multivitamin-ferrous 1 tab PO DAILY 05/29/2312/04 History fumarate-folic acid 18 mg-400 mcg tablet (Certavite-Antioxidant) nabumetone 500 mg tablet 500 mg PO BID PRN pain 05/29 Unknown History quetiapine 150 mg tablet,extended 150 mg PO 1600 05/2912/18/23 History release 24 hr neomycin-bacitracn Zn-polymyx 3.5 1 applic topical TID PRN dry skin 11/05/23 Unknown History mg-400 unit-5,000 unit/gram top oint (Neosporin (jdg-qwj-cxydr)) oxcarbazepine 600 mg tablet 600 mg PO BID 11/05/23 06:30 History polyethylene glycol 3350 17 238 g PO ONCE Colonoscopy prep 11/12/23 12/19/23 Rx gram/dose oral powder (Miralax) #238 grams Allergy/AdvReac Type Severity Reaction Status Date / Time risperidone (From Risperdal) Allergy ANXIETY Verified 10/08/24 16:53 Family History Mother Hyperlipidemia Father Hyperlipidemia Surgical History Hx of cystoscopy History of testicular surgery History of ankle surgery Social History household members: other details: Lives with others in residential home number of children: 0 Smoking Status: Never smoker alcohol intake: never substance use type: does not use Review of Systems (Anesthesia) ROS Narrative System reviewed and no additional complaints, except as documented.
[2024-10-09] MEDS: Cefazolin 2 GM in 0.9% Normal Saline (100mL Bag) 100 ML IV (12:26)
--- NOTE | 2024-10-09 12:46 | OP.PCM_ITS ---
Operative Report (Standard) Operative Information Date of Procedure: 10/09/24 Pre-Operative Diagnosis: Left obstructing kidney stone Post-Operative Diagnosis: Same Surgery/Procedure Performed: Cystoscopy and left stent placement lens polisher hand: No Type of Anesthesia: General RN Documented Start/Stop Times: Operation Date: 10/09/24 08:00 Case Time Into Pre-Op 10/09/24 11:35 Into Room 10/09/24 12:26 Anesthesia Start 10/09/24 12:31 Procedure Start 10/09/24 12:42 Procedure End 10/09/24 12:46 Procedure Start Time: 12:42 Procedure Stop Time: 12:46 Select all DRAINS/GRAFTS/IMPLANTS that apply: None and Drains Drain details: left stent Estimated Blood Loss: None Specimen collected: No Description of surgery: Patient was taken back to the operating room after smooth induction of anesthesia he was placed in dorsolithotomy position. One of the bladder with a 21 Green[place]ic rigid cystourethroscope found that he had a very large obstructive prostate very large median lobe a bunch of stones in the base of his bladder did not plan to do anything at this point with this but significant findings that he is going to have the stones lasered out at some point in the future and also we need to have surgery on his prostate from such a large obstructing prostate. He did have a large stone blocking his left kidney so wire was put up in the left kidney and we placed a stent to the left side to allow the kidney to drain and allow the ureter to dilate for anticipation for laser lithotripsy in the future. Patient acetic was a reversed thing back to the PACU good condition and we will set him up for outpatient surgery to laser the stone. Surgical Findings: Stent placement a left-sided en bloc kidney Complications Complications: No Admit VTE Documentation VTE Present on Admission: No VTE Mechan Device Prophylaxis: SCD's VTE Pharm Prophylaxis ordered?: No
--- NOTE | 2024-10-09 13:02 | PCM.POST.ANE ---
Anesthesia: Postop Eval I Current Vital Signs Temperature: 97.3 F Pulse Rate: 87 Blood Pressure: 126/78 Respiratory Rate: 16 Pulse Ox: 93 Oxygen Delivery Method: Nasal Cannula Oxygen Flow Rate (L/min): 3 Assessment Airway patent: Yes Spontaneous unlabored respirations: Yes Mental status: Awake and Calm nausea: No Vomiting: No Anesthesia Complication: No Fluid Hydration Crystalloid volume administer (ml): 500 Total IV fluid infused: 500 Progress Note Anesthesia document: Postop Eval 1 completed: Yes
--- NOTE | 2024-10-09 13:14 | CASEMGMT ---
Social Work SW attempted to call pt's father/guardian with no answer, VM left. SW called Custodial nurse Tena Ross ([phone]) who states father is out at a job site and unable to return calls right now. Tena confirms pt can return to halfway when medically ready. snf will provide transportation. Meenu Blank, cotton program technician is to be called with discharge and she will arrange transport ([phone]). Green sheet placed on pt chart to facilitate weekend discharge. SW also requested halfway fax guardianship papers to [facility]. Plan: Return to Custodial, when medically ready CALVIN Kendall
--- NOTE | 2024-10-09 13:38 | POSTOPAN2_ITS ---
Anesthesia Postop Eval I Sum Postop Eval Completion status Anesthesia document: Postop Eval 1 completed: Yes Anesthesia Postop Eval I Summary Anesthesia Postop Eval I Summary: Anesthesia Postop Eval I: Assessment Summary Airway patent Yes 10/09/24 13:03 [email or web address] Spontaneous unlabored Yes 10/09/24 13:03 [email or web address] [email or web address] respirations Mental status Awake,Calm 10/09/24 13:03 [email or web address] [email or web address] nausea No 10/09/24 13:03 WASTE [email or web address] Vomiting No 10/09/24 13:03 [email or web address] [email or web address] Anesthesia Postop Eval I: Fluid Summary Crystalloid volume administer 500 10/09/24 13:03 [email or web address] [email or web address] (ml) Colloids volume administered ( ml) Blood Product volume administered (ml) Total IV fluid infused 500 10/09/24 13:03 [email or web address] [email or web address] Anesthesia Postop Eval I: Summary Notes Anesthesia Complication No 10/09/24 13:03 [email or web address] [email or web address] Anesthesia Complication Comment: Post-operative progress note Anesthesia: Postop Eval II Evaluation Mental status: Awake Pain Level: 0 nausea: No Vomiting: No
--- NOTE | 2024-10-09 13:38 | PCM.POSTANE2 ---
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 Spontaneous unlabored Yes 10/09/24 13:03 BOARD MILL [email or web address] respirations Mental status Awake,Calm 10/09/24 13:03 BOARD MILL [email or web address] nausea No 10/09/24 13:03 BOARD MILL [email or web address] Vomiting No 10/09/24 13:03 BOARD MILL [email or web address] Anesthesia Postop Eval I: Fluid Summary Crystalloid volume administer 500 10/09/24 13:03 BOARD MILL [email or web address] (ml) Colloids volume administered ( ml) Blood Product volume administered (ml) Total IV fluid infused 500 10/09/24 13:03 BOARD MILL [email or web address] Anesthesia Postop Eval I: Summary Notes Anesthesia Complication No 10/09/24 13:03 BOARD MILL [email or web address] Anesthesia Complication Comment: Post-operative progress note Anesthesia: Postop Eval II Evaluation Mental status: Awake Pain Level: 0 nausea: No Vomiting: No
[2024-10-09] MEDS: Fenofibrate 145 MG Tablet PO (13:50)
[2024-10-09] MEDS: Losartan Potassium 100 MG Tablet PO (13:50)
[2024-10-09] MEDS: Fluticasone 0.05% 1 SPRAY NASAL.SRY 2 SPRAY NASAL (13:50)
[2024-10-09] MEDS: Loratadine 10 MG Tablet PO (13:51)
[2024-10-09] MEDS: cloNIDine HCl 0.2 MG Tablet PO (13:51)
[2024-10-09] MEDS: Famotidine 20 MG Tablet PO (13:52)
[2024-10-09] MEDS: OXcarbazepine 600 MG Tablet PO (13:52)
--- NOTE | 2024-10-09 14:59 | NURSING ---
[facility] notified that pt will be discharged today
--- NOTE | 2024-10-09 15:45 | PCM.DC ---
Discharge Instructions Diet Discharge Diet: Low fat / Low cholesterol DC O2, CPAP, BIPAP needs Home O2 Discharge instructions: No Dressing / Incision Discharge Activity: Return to Normal Activity Dressing / Incision Call your doctor if you observe: Fever of 101 or Higher, Shortness of breath, Dizziness, Fainting spells, Swelling in the ankles, Chest pain and Increased palpitations (irregular heartbeat) Follow Up Care Test Results: Test results from this visit will be discussed in further detail at your follow-up appointment, if applicable. Discharge Plan Admission Admit Date/Time: 10/08/24 20:03 Attending Provider: Austin Mares Primary Care Provider: Ramiro Sheets Consulting Providers: Salvador Rush; Yamileth Aguirre Instructions Patient Instructions: Having a Ureteral Stent Additional Instructions / Restrictions: Constipation is a risk with narcotics therefore I do recommend [id number] stool softeners while taking narcotics. Discharge Orders/Prescriptions Prescriptions: New oxycodone 5 mg Tablet 5 mg PO Q4H PRN PRN (Reason: Pain Score 4-10) 3 Days Qty: 10 0RF Continued quetiapine 150 mg tablet extended release 24 hr 150 mg PO 1600 Patient Comments: TAKE 1 TABLET BY MOUTHEONCE DAILY AT 4PM ammonium lactate 12 % cream 1 applic topical DAILY atorvastatin 40 mg tablet 40 mg PO DAILY Certavite-Antioxidant 18-400 mg-mcg tablet 1 tab PO DAILY clonidine HCl 0.2 mg tablet 0.2 mg PO BID doxazosin 2 mg tablet 2 mg PO QHS fluticasone propionate [Allergy Relief (fluticasone)] 50 mcg/actuation spray,suspension 2 spray intranasal DAILY Rx Instructions: administer into each nostril losartan 100 mg tablet 100 mg PO DAILY nabumetone 500 mg tablet 500 mg PO BID PRN (Reason: pain) Patient Comments: take 1 tablet by mouth twice a day oxcarbazepine 600 mg tablet 600 mg PO BID Neosporin (uxb-saj-hjdcy) 3.5mg-400 unit- 5,000 unit/gram ointment 1 applic topical TID PRN (Reason: dry skin) Rx Instructions: To inside of nose for dry patches folic acid 0.4 MG tablet 0.4 mg PO DAILY@0800 fenofibrate nanocrystallized 145 MG tablet 145 mg PO DAILY Fish Oil 1 EACH capsule 3 ea PO DAILY Claritin Liqui-Gel 10 MG capsule 10 mg PO DAILY garlic 200 MG tablet 350 mg PO DAILY polyethylene glycol 3350 [Miralax] 17 gram/dose powder 238 g PO ONCE Qty: 238 0RF Rx Instructions: Mix 8.3oz bottle with 2-32oz bottles of yellow or orange Gatorade. Use as directed by Physician. Referrals / Follow Up: Ramiro Sheets MD [Primary Care Provider] - Within 1 Week Salvador Rush MD [Med Staff - Active Staff] - Within 2 Weeks Disposition Disposition (needs filled in before D/C Order can be placed): Home, Self Care
--- NOTE | 2024-10-09 16:08 | PCM.DC.SUM ---
Providers Date of Admission: 10/08/24 Primary Care Physician: Dr. Ramiro Sheets MD Consultations 10/08/24 21:21 Consult: Urology Routine Consulting Provider: Salvador Rush Reason for Consult: Obstructive nephrolithiasis, hydronephrosis EMERGENT Consult: No MD Notified: Yes Date Notified: 10/08/24 Time Notified: 20:04 Method of Notification: ED Physician Initiated Reason For Visit: NEPHROLITHIASIS, OBSTRUCTIVE WITH HYDRONEPHROSIS Diagnosis Discharge Diagnosis (1) Kidney stone on left side: Status: Acute Code(s): N20.0 - Calculus of kidney Medications at Discharge Home Medications fenofibrate nanocrystallized 145 mg tablet 145 mg PO DAILY 07/08/18 folic acid 400 mcg tablet 0.4 mg PO DAILY@0800 07/08/18 garlic 200 mg tablet 350 mg PO DAILY 07/08/18 loratadine 10 mg capsule (Claritin Liqui-Gel) 10 mg PO DAILY 07/08/18 omega-3 fatty acids-fish oil 340 mg-1,000 mg capsule (Fish Oil) 3 ea PO DAILY 07/08/18 ammonium lactate 12 % topical cream 1 applic topical DAILY 05/29/23 atorvastatin 40 mg tablet 40 mg PO DAILY 05/29/23 clonidine HCl 0.2 mg tablet 0.2 mg PO BID 05/29/23 doxazosin 2 mg tablet 2 mg PO QHS 05/29/23 fluticasone propionate 50 mcg/actuation nasal spray,suspension (Allergy Relief (fluticasone)) 2 spray intranasal DAILY 05/29/23 losartan 100 mg tablet 100 mg PO DAILY 05/29/23 multivitamin-ferrous fumarate-folic acid 18 mg-400 mcg tablet (Certavite-Antioxidant) 1 tab PO DAILY 05/29/23 nabumetone 500 mg tablet 500 mg PO BID PRN pain 05/29/23 quetiapine 150 mg tablet,extended release 24 hr 150 mg PO 1600 05/29/23 neomycin-bacitracn Zn-polymyx 3.5 mg-400 unit-5,000 unit/gram top oint (Neosporin ([id number]-zswya)) 1 applic topical TID PRN dry skin 11/05/23 oxcarbazepine 600 mg tablet 600 mg PO BID 11/05/23 polyethylene glycol 3350 17 gram/dose oral powder (Miralax) 238 g PO ONCE Colonoscopy prep #238 grams 11/12/23 oxycodone 5 mg tablet 5 mg PO Q4H PRN PRN Pain Score 4-10 3 days #10 tabs 10/09/24 Hospital Course Operations - (Cystoscopy with left ureteral stent) Procedures None Summary of Care Provided Minutes Spent on Discharge: 32 Hospital Course: Per HPI: The patient is a 43 y/o M w/ intellectual debilities living in a halfway w/ PMHx: CKD stage II per GFR trending, HTN, HLD, Anxiety and Depression/Mood disorder, Obesity who presents to the [facility] ED on 10/08/24 with history of abdominal pain with no associated nausea or emesis but persistent described primarily in the back/flank and periumbilical region with history of previous kidney stones noting that the discomfort in the back/flank is been ongoing for at least 5 days sent to the urgent care initially referred to the ED given concern for possible UTI and antibiotic needs with no fevers or chills. Patient currently notes pain is improved after morphine but discussion with patient and halfway staff he rates his discomfort previously potentially 7-8 out of 10 in severity and more in the back/flank. Workup in the ED included T97.6, heart rate 101, BP 141/94, respiratory rate 16, percent room air with most recent repeat vital signs T98, heart rate 96, BP 149/90, respiratory rate 18, 97% on room air, CBC with WBC 13.8, hemoglobin 13.7, platelet 327 with left shift, CMP with come back side 19.3, BUN/creatinine 18/1.32, GFR 68, glucose 100, AST/LT 51/66, urinalysis with no obvious overt UTI but pending urine RBC/WBC/squamous epithelial cells/urine bacteria, CT abdomen and pelvis with a 9 mm obstructive stone at the distal left ureter with associated upstream moderate hydroureteronephrosis with multiple urinary bladder stones, mild thickening of the urinary bladder wall reflective of possible cystitis versus partial nondistention with an enlarged prostate with abutment into the urinary bladder wall. In the ED patient ministered Zofran 4 mg IV x 2, morphine 4 mg IV x 1, morphine 6 mg IV x 1, Toradol 30 mg IV x 1. ED discussed case with urology. Hospital Course: 1. Left ureteral stone?43-year-old male who resides in a halfway secondary to intellectual debilities presents to the hospital with abdominal pain and left flank pain. He was to have a left ureteral stone. The pain going on for about 5 days so urology was consulted and had a cystoscopy today with a left ureteral stent. He will need to follow-up as an outpatient with urology for definitive laser lithotripsy. He did tolerate the procedure well and there is no signs of UTI within normal white blood cell count, and an unimpressive, at least from an infectious standpoint, urinalysis. Will plan for 3 days of oxycodone on discharge secondary to the flank pain, I do recommend continued stool softeners while taking narcotics. 2. Essential hypertension, hyperlipidemia, anxiety, depression, mood disorder, intellectual disability are chronic medical conditions which complicate his care. His home medications were continued where appropriate Physical Exam Narrative General: Alert, Oriented x3, Cooperative, No apparent distress HEENT: Atraumatic, PERRLA, EOMI, Normocephalic Oral: Moist Mucosa Neck: Supple, No JVD Lungs: Clear to auscultation, Normal air movement, No rhonchi, No wheeze, No rales Cardiovascular: Regular rate, Regular Rhythm, Normal S1, Normal S2, No murmurs Abdomen: Soft, Non Tender, Non-Distended, No Hepato-splenomegaly Extremities: No edema, Capillary Refill Less than 3 Seconds Skin: No rashes, No breakdown Musculoskeletal: No Tenderness to Palpation of Joints or Extremities Neurological: No focal neurological deficits, Motor Exam 5/5 strength throughout, Sensory exam intact to light touch and pain Psych/Mental Status: Normal Affect, Appropriate Weight / BMI Weight Weight: 189 lb 9.561 oz Body Mass Index (BMI) 31.6 ABG / Lab / Microbiology Data 10/09/24 05:03 10/09/24 05:03 Laboratory: Laboratory Results - last 24 hr 10/08/24 17:17: WBC 13.8 H, RBC 4.73, Hgb 13.7, Hct 40.6, MCV 85.8, MCH 29.0, MCHC 33.7, RDW Std Deviation 41.9, RDW Coeff of Jaime 13.4, Plt Count 327, MPV 9.0, Immature Gran % (Auto) 0.700, Neut % (Auto) 68.7, Lymph % (Auto) 19.2, [place] % (Auto) 8.0, Eos % (Auto) 2.9, Baso % (Auto) 0.5, Absolute Neuts (auto) 9.5 H, Absolute Lymphs (auto) 2.64, Nucleated RBC % 0, Sodium 135, Potassium 4.0, Chloride 101, Carbon Dioxide 19.3 L, Anion Gap 15, BUN 18, Creatinine 1.32 H, Estim Creat Clear Calc 72.57, Est GFR (MDRD) Non-Af 68, BUN/Creatinine Ratio 13.4, Glucose 100 H, Calcium 9.9, Total Bilirubin 0.33, AST 51 H, ALT 66 H, Alkaline Phosphatase 75, Total Protein 7.1, Albumin 4.4, Globulin 2.7, Albumin/Globulin Ratio 1.6 10/08/24 18:31: Urine Color Yellow, Urine Clarity Cloudy, Urine pH 7.0, Ur Specific [place] 1.010, Urine Protein 30 H, Urine Glucose (UA) Normal, Urine Ketones Negative, Urine Occult Blood 250 H, Urine Nitrite Negative, Urine Bilirubin Negative, Urine Urobilinogen Normal, Ur Leukocyte Esterase 25 H, Urine RBC > 100 SEEN, Urine WBC 0 SEEN, Ur Squamous Epith Cells 0 SEEN, Urine Bacteria 2+, Urine Mucus 0 SEEN 10/09/24 05:03: WBC 9.1, RBC 4.41 L, Hgb 12.7 L, Hct 38.1 L, MCV 86.4, MCH 28.8, MCHC 33.3, RDW Std Deviation 42.9, RDW Coeff of Jaime 13.7, Plt Count 332, MPV 8.8, Immature Gran % (Auto) 0.300, Neut % (Auto) 53.3, Lymph % (Auto) 31.8, [place] % (Auto) 8.4, Eos % (Auto) 5.5 H, Baso % (Auto) 0.7, Absolute Neuts (auto) 4.9, Absolute Lymphs (auto) 2.90, Nucleated RBC % 0, Sodium 137, Potassium 3.8, Chloride 104, Carbon Dioxide 21.2, Anion Gap 12, BUN 17, Creatinine 1.39 H, Estim Creat Clear Calc 67.68, Est GFR (MDRD) Non-Af 64, BUN/Creatinine Ratio 12.4, Glucose 100 H, Calcium 9.1, Total Bilirubin 0.38, AST 40 H, ALT 55 H, Alkaline Phosphatase 67, Total Protein 6.2, Albumin 3.9, Globulin 2.2, Albumin/Globulin Ratio 1.8 Radiography Diagnostic Testing: Radiology Impression Abdomen/Pelvis CT 10/08/24 17:09 IMPRESSION: 9 mm obstructive stone at the distal left ureter with associated upstream moderate hydroureteronephrosis. Multiple urinary bladder stones are noted. Mild thickening of the urinary bladder wall which may reflect cystitis versus partial nondistention; consider correlation with urinalysis. Enlarged prostate with abutment onto the urinary bladder wall. Reading Location: [facility] D/C Instructions Discharge Diet: Low fat / Low cholesterol Call your doctor if you observe: Fever of 101 or Higher, Shortness of breath, Dizziness, Fainting spells, Swelling in the ankles, Chest pain and Increased palpitations (irregular heartbeat) DC O2, CPAP, BIPAP Needs Home O2 Discharge instructions: No Meaningful Use Info Meaningful Use Meaningful Use Diagnoses (Choose all that apply): None applicable Ischemic Stroke Statin Dosing Therapy Reference: STATIN DOSE THERAPY REFERENCE: * Patients > 75 years receive moderate or high dose statin therapy. * Patients 75 years or YOUNGER should receive HIGH intensity statin dose unless contraindicated. You will be required to document reason for non-treatment if statin daily dose does not meet guidelines. HIGH DOSE STATIN THERAPY DAILY Atorvastatin > than or = to 40 mg Rosuvastatin > than or = to 20 mg Amlodipine + Atorvastatin > than or = to 2.5/40 mg Ezetimibe + Simvastatin 10/80 mg Simvastatin 80mg Discharge Plan Admission Admit Date/Time: 10/08/24 20:03 Attending Provider: Austin Mares Primary Care Provider: Ramiro Sheets Consulting Providers: Salvador Rush; Yamileth Aguirre Instructions Patient Instructions: Having a Ureteral Stent Additional Instructions / Restrictions: Constipation is a risk with narcotics therefore I do recommend [id number] stool softeners while taking narcotics. Discharge Orders/Prescriptions Prescriptions: New oxycodone 5 mg Tablet 5 mg PO Q4H PRN PRN (Reason: Pain Score 4-10) 3 Days Qty: 10 0RF Continued quetiapine 150 mg tablet extended release 24 hr 150 mg PO 1600 Patient Comments: TAKE 1 TABLET BY MOUTHEONCE DAILY AT 4PM ammonium lactate 12 % cream 1 applic topical DAILY atorvastatin 40 mg tablet 40 mg PO DAILY Certavite-Antioxidant 18-400 mg-mcg tablet 1 tab PO DAILY clonidine HCl 0.2 mg tablet 0.2 mg PO BID doxazosin 2 mg tablet 2 mg PO QHS fluticasone propionate [Allergy Relief (fluticasone)] 50 mcg/actuation spray,suspension 2 spray intranasal DAILY Rx Instructions: administer into each nostril losartan 100 mg tablet 100 mg PO DAILY nabumetone 500 mg tablet 500 mg PO BID PRN (Reason: pain) Patient Comments: take 1 tablet by mouth twice a day oxcarbazepine 600 mg tablet 600 mg PO BID Neosporin ([id number]-[id number]-[id number]) 3.5mg-400 unit- 5,000 unit/gram ointment 1 applic topical TID PRN (Reason: dry skin) Rx Instructions: To inside of nose for dry patches folic acid 0.4 MG tablet 0.4 mg PO DAILY@0800 fenofibrate nanocrystallized 145 MG tablet 145 mg PO DAILY Fish Oil 1 EACH capsule 3 ea PO DAILY Claritin Liqui-Gel 10 MG capsule 10 mg PO DAILY garlic 200 MG tablet 350 mg PO DAILY polyethylene glycol 3350 [Miralax] 17 gram/dose powder 238 g PO ONCE Qty: 238 0RF Rx Instructions: Mix 8.3oz bottle with 2-32oz bottles of yellow or orange Gatorade. Use as directed by Physician. Referrals / Follow Up: Ramiro Sheets MD [Primary Care Provider] - Within 1 Week Salvador Rush MD [Med Staff - Active Staff] - Within 2 Weeks Disposition Disposition (needs filled in before D/C Order can be placed): Home, Self Care Charges/Coding Visit Charges Inpatient E&M: 32326 Disch Hosp >30min
--- OUTSIDE RECORDS SUMMARY | 2024-10-10 15:40 | XMS RPT_ITS | CCD ---
Author Organization [facility] Care Team Providers Care Applications System Analyst Name Role Phone Dr. Ramiro Rosa Primary Care Provider Dr. Ramiro Rosa Referring Provider NORRIS Calvillo Attending Provider NORRIS Isidro Attending Provider Ramiro Rosa MD Primary Care Provider Ramiro Rosa MD Primary Care Provider Ramiro Rosa Primary Care Provider Dr. Ramiro Rosa Primary Care Provider Dr. Ramiro Rosa Referring Provider NORRIS Isidro Attending Provider Dr. Ramiro Rosa Primary Care Provider Dr. Ramiro Rosa Referring Provider [phone] NORRIS Isidro Attending Provider Dr. Ramiro Rosa MD Primary Care Provider Dr. Dajuan Morrison MD Attending Provider Dr. Dajuan Dickson MD Referring Provider UnavailRamiro Dominguez Primary Care Provider SEAN VERDUZCO Attending Unavailable SELF Referring Unavailable RAMIRO ROSA Primary Care UnavailRAMIRO Gonzalez Primary Care UnavailZACH Evangelista Attending Unavailable MOE, RAMIRO Attending Unavailable MOE, RAMIRO Referring Unavailable MOE, RAMIRO Primary Care Unavailable MOE, RAMIRO Attending Unavailable MOE, RAMIRO Primary Care Unavailable MOE, RAMIRO Attending Unavailable MOE, RAMIRO Primary Care Unavailable Black OLS, Dajuan Attending Unavailable Moe, Ramiro Primary Care Unavailable Black Dajuan HINDS Attending Unavailable Dajuan Metz Referring Unavailable Moe, Ramiro Primary Care Unavailable AdriSalvador Consulting Unavailable Austin Mares F Attending Unavailable Moe, Ramiro Primary Care Unavailable White, Yamileth L Admitting Unavailable White, Yamileth L Consulting Unavailable EuniceoniAustin bell F Consulting Unavailable White, Yamileth L Attending Unavailable Adri, Kyree Consulting Unavailable Moe, Ramiro Primary Care Unavailable KobradyonisCruzAustin F Attending Unavailable White, Yamileth L Admitting Unavailable White, Yamileth L Consulting Unavailable JunaidNickiy Attending Unavailable Moe, Ramiro Primary Care Unavailable Friend, Michael Consulting Unavailable Friend, Michael Attending Unavailable Moe, Ramiro Primary Care Unavailable Moe, Ramiro Referring Unavailable Friend, Michael Attending Unavailable Moe, Ramiro Primary Care Unavailable Moe, Ramiro Referring Unavailable Moe , Dr. Rubio Primary Care Provider [phone] rPince HERNANDEZ, Dr. Graff Attending Provider Unavailkimberlee Morrison MD, Dr. Graff Referring Provider Unavailkimberlee Goins MD, Dr. Salinas Emergency Provider Dr. Yamileth Aguirre MD Admit Provider [phone] Carla HERNANDEZ, Dr. Yamileth Best Attending Provider Carla HERNANDEZ, Dr. Yamileth Best Other Provider [phone] Dr. Salvador Rush MD Other Provider [phone] Vishnu HERNANDEZ, Dr. Austin Salmon Attending Provider Dr. Austin Mares MD Other Provider Allergies Allergy Classification Reported Allergen(s) Allergy Type Date of Onset Reaction(s) Facility risperiDONE (1 source) risperiDONE Drug Allergy 5 Anxiety [facility] (13 sources) risperiDONE; Translations: [RISPERIDONE] Drug Allergy 5 Mental Status Change [facility] (20 sources) risperiDONE Drug Allergy 5 [facility] (1 source) risperiDONE Drug Allergy [facility] Repository Medications Current Medications Medication Drug Class(es) Dates Sig (Normalized) Sig (Original) atorvastatin 40 mg oral tablet (20 sources) HMG-CoA Reductase Inhibitor Start: 04-19-2022 End: 08-20-2024 take 1 tablet by mouth once daily Atorvastatin 40 mg tablet Active 40 mg PO DAILY May 29, 2023 1:00am Start: 07-08-2018 End: 05-29-2023 take 1 tablet by mouth at bedtime Atorvastatin 20 MG tablet Discontinued 20 mg PO AT BEDTIME July 08, 2018 1:00am May 29, 2023 11:02am Comment on above: Take 1 tablet by marcell th once daily. bacitracin 0.4 unt/mg / neomycin 0.0035 mg/mg / polymyxin b 5 unt/mg topical ointment (20 sources) Aminoglycoside Antibacterial, Polymyxin-class Antibacterial Start: 11-05-2023 Neomycin-Bacitracnzn -Polymyxnb (Neosporin (Otg-Vxh-Jxece)) 3.5mg-400 unit- 5,000 unit/gram ointment Active 1 NMA TOPICAL THREE TIMES A DAY as needed for dry skin November 05, 2023 12:00am To inside of nose for dry patches Start: 02-19-2022 Neomycin-Bacit racnZn-Polymyxin 3.5-500-10,000 kh-arbu-klcx oint APPLY TOPICALLY TO INSIDE OF NOSE 3 TIMES DAILY NEEDED FOR DRY PATCHES 02/19/2022 Active Comment on above: APPLY TOPICALLY TO I NSIDE OF NOSE 3 TIMES DAILY NEEDED FOR DRY PATCHES cephalexin 500 mg oral capsule (3 sources) Cephalosporin Antibacterial Start: End: take 1 capsule by mouth twice [...] on above: Take 1 capsule by mo uth four times daily for 5 days. clonazePAM 0.5 mg oral tablet (10 sources) Benzodiazepine Start: take 1 tablet by mouth three times daily clonazePAM (KLONOPIN) 0.5 mg tablet Take 0.5 mg by mouth three times a day. 10/05/2024 Active Start: 04-08-2024 take 0.25 mg by mout h twice daily clonazePAM (KlonoPIN) 0.5 MG tablet Take 0.25 mg by mouth 2 times daily. 04/08/2024 Active docosahexaenoic acid 120 mg / eicosapentaenoic acid 180 mg oral capsule (20 sources) Start: 02-19-2022 End: 10-02-2024 take 3 capsules by mouth once daily omega-3 (Fish Oil) 1000 MG capsule Indications: Hyperlipidemia LDL goal TAKE 3 CAPSULES (3000MG) BY MOUTH ONCE EVERY DAY 93 capsule 1 10/02/2024 Active doxazosin 2 mg oral tablet (20 sources) alpha-Adrenergic Laisha Start: 02-26-2022 End: 07-14-2024 take 1 tablet by mouth at bedtime Doxazosin 2 mg tablet Active 2 mg PO AT BEDTIME May 29, 2023 1:00am Comment on above: TAKE 1 TABLET BY MARCELL EVERY NIGHT AT BEDTIME (8PM) doxycycline monohydrate 100 mg oral tablet (1 source) Tetracycline-class Drug Start: 02-18-2023 End: 02-25-2023 take 1 tablet by mouth twice daily doxycycline monohydrate 100 mg tablet Take 1 tablet by mouth two times a day for 7 days. 14 tablet 0 02/18/2023 02/25/2023 Active Comment on above: Take 1 tablet by marcell th two times a day for 7 days. fluticasone propionate 0.05 mg/actuat metered dose nasal spray (20 sources) Corticosteroid Start: 02-03-2024 End: 03-04-2024 take 2 spray(s) nasal route once daily fluticasone (Flonase) 50 MCG/ACT nasal spray Indications: Seasonal allergic rhinitis due to pollen Administer 2 sprays into each nostril daily. Shake gently. Before first use, prime pump. After use, clean tip and replace cap. 16 g 11 02/03/2024 Active Start: 05-29-2023 take 50 ug nasal rou te once daily Fluticasone Propionate (Allergy Relief (Fluticasone)) 50 mcg/actuation spray,suspension Active 2 NMA INTRANASAL DAILY May 29, 2023 1:00am administer into each nostril Start: 05-29-2023 take [...] tablet by mouth once daily folic acid 400 mcg tablet Take 1 tablet by mouth once daily. 02/19/2022 Active Start: 07-08-2018 take 1 tablet by marcell th once daily Folic Acid 0.4 MG tablet Active 0.4 mg PO DAILY@0800 July 08, 2018 1:00am Comment on above: Take 1 tablet by [...] 350 mg PO DAILY July 08, 2018 1:00am Start: 07-08-2018 Garlic 200 MG tablet Active [...] 1 NMA TOPICAL DAILY May 29, 2023 1:00am Start: 02-19-2022 End: 06-23-2024 ammonium lactate (LAC-HYDRIN ) 12 % cream APPLY TOPICALLY TO FEET ONCE EVERY DAY (8PM) 02/19/2022 Active Comment on above: APPLY TOPICALLY TO F EET ONCE EVERY DAY (8PM) loratadine 10 mg oral tablet (20 sources) Start: 02-19-2022 End: 12-19-2023 take 1 tablet by mouth once daily loratadine (CLARITIN) 10 mg tablet TAKE 1 TABLET BY MOUTH ONCE EVERY DAY (4PM) 02/19/2022 Active Start: 07-08-2018 take 1 capsule by mo [facility] once daily Loratadine (Claritin Liqui-Gel) 10 MG capsule Active 10 mg PO DAILY July 08, 2018 1:00am Comment on above: TAKE 1 TABLET BY MARCELL ONCE EVERY DAY (4PM) losartan potassium 100 mg oral tablet (20 sources) Angiotensin 2 Receptor Laisha Start: 05-29-2023 take 1 tablet by mouth once daily Losartan 100 mg tablet Active 100 mg PO DAILY May 29, 2023 1:00am Start: 05-04-2022 End: 11-01-2022 take 1 tablet by mouth once daily losartan (Cozaar) 100 MG tablet Take 1 tablet (100 mg) by mouth daily. 30 tablet 5 09/04/2024 Active Start: 04-19-2022 End: 05-04-2022 take 1 tablet by mouth once daily losartan (Cozaar) 50 MG tablet Take 1 tablet (50 mg) by mouth daily. 30 tablet 0 04/19/2022 05/04/2022 Discontinued Comment on above: Take 1 tablet by marcell th once daily. Multiple Vitamins-Minerals (CertaVite/Antioxida nts) tablet [...] BY MOUTH ONCE EVERY DAY 30 tablet 08/08/2022 07/02/2023 Discontinued (Reorder) Start: 08-08-2022 take 1 tablet by marcell th once daily Multiple Vitamins-Minerals (CertaVite/Antioxidants) tablet TAKE 1 TABLET BY MOUTH ONCE EVERY DAY 30 tablet 08/08/2022 Active Start: 02-19-2022 End: 08-08-2022 take 1 tablet by mouth once daily Multiple Vitamins-Minerals (CertaVite/Antioxidants) tablet Take 1 tablet by mouth daily. 0 02/19/2022 08/08/2022 Discontinued Start: 02-19-2022 take 1 tablet by marcell th once daily Multiple Vitamins-Minerals (CertaVite/Antioxidants) tablet Take 1 tablet by mouth daily. 0 02/19/2022 Active Enqimmkcdidd-Nhbq-Waxvr Acid (Certavite-Antioxidant) 18-400 mg-mcg tablet (5 sources) Start: 05-29-2023 Multivitamin-I mony-Folic Acid (Certavite-Antioxidant) 18-400 mg-mcg tablet Active 1 {tbl} PO DAILY May 29, 2023 1:00am Start: 05-29-2023 Multivitamin-I mony-Folic Acid (Certavite-Antioxidant) 18-400 mg-mcg tablet Active 1 {tbl} PO DAILY May 29, 2023 12:00am Start: 05-29-2023 take 1 tablet by marcell th once daily Bunkgmfdlupa-Lzar-Icsxj Acid (Certavite-Antioxidant) 18-400 mg-mcg tablet Active 1 TABLET PO DAILY May 29, 2023 1:00am Start: 05-29-2023 take 1 tablet by marcell th once daily Bceupwaldhga-Wzkx-Bgyjk Acid (Certavite-Antioxidant) 18-400 mg-mcg tablet Active 1 TABLET PO DAILY May 29, 2023 12:00am multivitamin/iron/folic acid (CERTAVITE-ANTIOXIDANT ORAL) (4 sources) multivitamin/iro n/folic acid (CERTAVITE-ANTIOXIDANT ORAL) Take by mouth. Active multivitamin/iro n/folic acid (CERTAVITE-ANTIOXIDANT ORAL) Take by mouth. 0 Active Comment on above: Take by mouth. nabumetone 500 mg oral tablet (20 sources) Nonsteroidal Anti-inflammatory Drug Start: End: take 1 tablet by mouth twice daily as needed for pain Nabumetone 500 mg tablet Active 500 mg PO TWICE A DAY as needed for pain May 29, 2023 1:00am Start: 08-27-2022 End: 10-18-2022 take 1 tablet by mouth twice daily nabumetone (Relafen) 500 MG tablet Take 1 tablet (500 mg) by mouth 2 times daily. 60 tablet 0 10/18/2022 Active Comment on above: Take 500 mg by mouth . omega 1-rdf-wfm-fish oil 300 mg-100 mg- 150 mg-1,000 mg cap (4 sources) Start: 02-19-2022 take 3 capsules by mouth once daily omega 3-olf-ein-fish oil 300 mg-100 mg- 150 mg-1,000 mg cap TAKE 3 CAPSULES (3000MG) BY MOUTH ONCE EVERY DAY 02/19/2022 Active Start: 02-19-2022 take 3 capsules by m out once daily omega 3-kav-ioh-fish oil 300 mg-100 mg- 150 mg-1,000 mg cap TAKE 3 CAPSULES (3000MG) BY MOUTH ONCE EVERY DAY 0 02/19/2022 Active Comment on above: TAKE 3 CAPSULES (300 0MG) BY MOUTH ONCE EVERY DAY [place]-3 Fatty Acids-Fish Oil (Fish Oil 1,000 Mg Capsule) 1 EACH capsule (7 sources) Start: 07-08-2018 [place]-3 Fatty Acids-Fish Oil (Fish Oil 1,000 Mg Capsule) 1 EACH capsule Active 3 NMA PO DAILY July 08, 2018 1:00am Start: 07-08-2018 [place]-3 Fatty Acids-Fish Oil (Fish Oil 1,000 Mg Capsule) 1 EACH capsule Active 3 NMA PO DAILY July 08, 2018 12:00am Start: 07-08-2018 [place]-3 Fatty Acids-Fish Oil (Fish Oil 1,000 Mg Capsule) 1 EACH capsule Active 3 EACH PO DAILY July 08, 2018 12:00am Start: 07-08-2018 [place]-3 Fatty Acids-Fish Oil (Fish Oil 1,000 Mg Capsule) 1 EACH capsule Active 3 EACH PO DAILY July 08, 2018 1:00am [place]-3 Fatty Acids-Fish Oil (Fish Oil) 1 EACH capsule (1 source) Start: 07-08-2018 [place]-3 Fatty Acids-Fish Oil (Fish Oil) 1 EACH capsule Active 3 NMA PO DAILY July 08, 2018 1:00am OXcarbazepine 600 mg oral tablet (20 sources) Anti-epileptic Agent Start: 02-19-2022 take 1 tablet by mouth twice daily Oxcarbazepine 600 mg tablet Active 600 mg PO TWICE A DAY November 05, 2023 12:00am Comment on above: TAKE 1 TABLET BY MARCELL TH TWICE DAILY (7AM,8PM) oxyCODONE hydrochloride 5 mg oral tablet (1 source) Opioid Agonist Start: 10-09-2024 take 1 tablet by mouth every four hours as needed for pain Oxycodone 5 mg Tablet Active 5 mg PO EVERY 4 HOURS NEEDED as needed for Pain Score 4-10 10 3 October 09, 2024 polyethylene glycol 3350 24649 mg powder for oral solution (3 sources) Osmotic Laxative Start: 11-12-2023 Polyethylene Glycol 3350 (Miralax) 17 gram/dose powder Active 238 g PO ONCE 238 November 12, 2023 12:00am Mix 8.3oz bottle with 2-32oz bottles of [...] 150 mg PO 1600 May 29, 2023 11:06am Start: 02-09-2022 End: 04-20-2024 take 150 mg by mouth once daily Quetiapine Active 150 MG PO DAILY May 29, 2023 11:06am take 1 tablet by mouth once QUEt iapine (SEROQUEL) 200 mg tablet Take 200 mg by mouth every afternoon. Active Comment on above: Take 150 mg by mouth . Completed/Discontinued Medications Medication Drug Class(es) Dates Sig (Normalized) Sig (Original) acetaminophen 325 mg / HYDROcodone bitartrate 5 mg oral tablet (8 sources) Opioid Agonist Start: 07-08-2018 End: 07-11-2018 Hydrocodone-Acetami nophen 1 TABLET tablet Discontinued 1 {tbl} PO EVERY 6 HOURS NEEDED as needed for Pain 10 July 08, 2018 1:00am July 10, 2018 1:00am July 11, 2018 1:09am Start: 07-08-2018 End: 07-11-2018 take 1 tablet by mouth every six hours as needed Hydrocodone-Acetaminophen Discontinued 1 TABLET PO EVERY 6 HOURS NEEDED 10 July 08, 2018 1:00am July 11, 2018 1:09am acetaminophen 325 mg / oxyCODONE hydrochloride 5 mg oral tablet (8 sources) Opioid Agonist Start: 03-03-2021 End: 05-29-2023 Oxycodone-Acetaminophen 1 TABLET tablet Discontinued 1 {tbl} PO EVERY 6 HOURS NEEDED as needed for Pain 12 March 03, 2021 May 29, 2023 11:07am Start: 03-03-2021 End: 05-29-2023 take 1 tablet by mouth every six hours as needed Oxycodone-Acetaminophen Discontinued 1 TABLET PO EVERY 6 HOURS NEEDED 12 March 03, 2021 May 29, 2023 11:07am amoxicillin 875 mg / clavulanate 125 mg oral tablet (5 sources) Penicillin-class Antibacterial Start: 05-29-2023 End: 12-16-2023 Amoxicillin-Pot Clavulanate 875-125 mg tablet Discontinued 1 {tbl} PO TWICE A DAY May 29, 2023 1:00am December 16, 2023 3:32pm Start: 05-29-2023 take 1 tablet by [facility] twice daily Amoxicillin-Pot Clavulanate Active 1 TABLET PO TWICE A DAY May 29, 2023 1:00am bisacodyl 5 mg delayed release oral tablet (3 sources) Stimulant Laxative Start: 11-12-2023 End: 12-16-2023 take 1 tablet by mouth once Bisacodyl (Dulcolax (Bisacodyl)) 5 mg tablet,delayed release (DR/EC) Discontinued 5 mg PO ONCE November 12, 2023 12:00am December 16, 2023 3:32pm Take as directed by physician, per colonoscopy [...] TWICE A DAY May 29, 2023 1:00am December 16, 2023 3:33pm 1st 2 days of month Start: 02-19-2022 End: 04-24-2023 carbamide peroxide (EAR DROP S) 6.5 % otic solution INSTILL 5 DROPS IN BOTH EARS TWICE DAILY THE 1ST 4 DAYS OF THE MONTH (7AM,8PM) 02/19/2022 Active Comment on above: INSTILL 5 DROPS IN B OTH EARS TWICE DAILY THE 1ST 4 DAYS OF THE MONTH (7AM,8PM) cloNIDine hydrochloride 0.1 mg oral tablet (20 sources) Central alpha-2 Adrenergic Agonist Start: take 1 tablet by mouth twice daily Clonidine Hcl 0.2 mg tablet Active 0.2 mg PO TWICE A DAY May 29, 2023 1:00am Start: 06-13-2017 End: 05-29-2023 take 1 tablet by mouth twice daily Clonidine Hcl 0.1 MG tablet Discontinued 0.1 mg PO TWICE A DAY July 08, 2018 1:00am May 29, 2023 11:03am Comment on above: Take 1 tablet by [facility] two times a day. dexamethasone 6 mg oral tablet (8 sources) Corticosteroid Start: End: take 1 tablet by mouth once daily Dexamethasone 6 mg tablet Discontinued 6 mg PO DAILY February 09, 2022 12:00am May 29, 2023 11:07am fenofibrate 145 mg oral tablet (20 sources) Peroxisome Proliferator Receptor alpha Agonist Start: 019 End: 025 take 1 tablet by mouth once daily Fenofibrate Nanocrystallized 145 mg tablet Discontinued 145 mg PO DAILY May 29, 2023 1:00am May 29, 2023 11:07am Comment on above: Take 1 tablet by marcell once daily. Pzmxnymo-Rgm-Gs-Lycop en-Lutein (Certavite Sr-Antioxidant Tab) 1 EACH tablet (8 sources) Start: 019 End: Vwmpyidq-Ibk-Mg-Lycopen -Lutein (Certavite Sr-Antioxidant Tab) 1 EACH tablet Discontinued 1 NMA PO DAILY July 08, 2018 1:00am May 29, 2023 11:07am Start: 07-08-2018 End: 05-29-2023 Pqnwbmhm-Csb-Gh-Lycopen-Lute in (Certavite Sr-Antioxidant Tab) 1 EACH tablet Discontinued 1 NMA PO DAILY July 08, 2018 12:00am May 29, 2023 10:07am Start: 07-08-2018 End: 05-29-2023 Nvylwhup-Okp-Vj-Lycopen-Lute in (Certavite Sr-Antioxidant Tab) 1 EACH tablet Discontinued 1 EACH PO DAILY July 08, 2018 1:00am May 29, 2023 11:07am Start: 07-08-2018 End: 05-29-2023 Aczjcato-Fsi-Wd-Lycopen-Lute in (Certavite Sr-Antioxidant Tab) 1 EACH tablet Discontinued 1 EACH PO DAILY July 08, 2018 12:00am May 29, 2023 10:07am Start: 07-08-2018 Cvobhfif-Fdd-P e-Kjtzvlq-Uekskf (Certavite Sr-Antioxidant Tab) 1 EACH tablet Active 1 EACH PO DAILY July 08, 2018 12:00am Start: 07-08-2018 Ilfyjapv-Dnr-Y y-Gfaysey-Hiqbit (Certavite Sr-Antioxidant Tab) 1 EACH tablet Active 1 EACH PO DAILY July 08, 2018 1:00am multivitamin with minerals (Cerovite) 18-400 mg-mcg tablet tablet (1 source) End: 04-18-2023 multivitamin with minerals (Cerovite) 18-400 mg-mcg tablet tablet Take by mouth. 0 04/18/2023 Discontinued (Therapy completed) ondansetron 4 mg disintegrating oral tablet (8 sources) Serotonin-3 Receptor Antagonist Start: 07-08-2018 End: 05-29-2023 take 1 tablet by mouth every eight hours as needed for nausea Ondansetron 4 MG tablet Discontinued 4 mg PO EVERY 8 HOURS NEEDED as needed for Nausea July 08, 2018 1:00am May 29, 2023 11:07am Problems Active Problems Problem Classification Problem Date Documented Da te Episodic/Chronic Abdominal pain (10 sources) Unspecified abdominal pain; Translations: [Abdominal pain] Onset: 10-08-2024 10-08-2024 Episodic Calculus of urinary tract (20 sources) Ureteric stone of lower third of ureter; Translations: [Calculus of ureter] Onset: 04-17-2019 02-19-2022 Episodic Developmental disorders (20 sources) Intellectual disability; Translations: [Unspecified intellectual disabilities] Onset: 10-13-2018 02-19-2022 Chronic Disorders of lipid metabolism (20 sources) Hyperlipidemia; Translations: [Hyperlipidemia, unspecified] Onset: 03-11-2015 02-19-2022 Chronic Essential hypertension (20 sources) Essential hypertension; Translations: [Essential (primary) hypertension] Onset: 10-09-2017 02-19-2022 Chronic Genitourinary symptoms and ill-defined conditions (20 sources) Benign essential microscopic hematuria; Translations: [Benign essential microscopic hematuria] Onset: 08-31-2020 02-19-2022 Episodic Headache; including migraine (7 sources) Headache; Translations: [Headache] 04-25-2022 Episodic Mood disorders (20 sources) Recurrent major depression in full remission; Translations: [Major depressive disorder, recurrent, in full remission] Onset: 10-19-2019 02-19-2022 Chronic Other circulatory disease (7 sources) Elevated blood pressure; Translations: [Elevated blood-pressure reading, without diagnosis of hypertension] 04-25-2022 Episodic Other circulatory disease (4 sources) H/O: hypertension; Translations: [Personal history of other diseases of the circulatory system] 10-08-2024 Episodic Other injuries and conditions due to external causes (1 source) Avulsion of toenail; Translations: [Other specified injuries of unspecified foot, initial encounter] 02-18-2023 Episodic Other upper respiratory disease (20 sources) Allergic [...] sleep apnea (adult) (pediatric)] Onset: 10-24-2023 Chronic Spondylosis; intervertebral disc disorders; other back problems (20 sources) Acute low back pain; Translations: [Acute midline low back pain without sciatica] Onset: 08-27-2022 Episodic Unclassified (1 source) Midline low back pain, unspecified chronicity, unspecified whether sciatica present; Translations: [Midline low back pain, unspecified chronicity, unspecified whether sciatica present] Onset: 10-08-2024 Urinary tract infections (20 sources) Cystitis; Translations: [Cystitis, unspecified without hematuria] Onset: 08-31-2020 02-19-2022 Episodic Viral infection (10 sources) Disease caused by 2019-nCoV; Translations: [COVID-19] Episodic Past or Other Problems Problem Classification Problem Date Documented Date Episodic/Chronic Mood disorders (1 source) Mood disorder due to known physiological condition, unspecified; Translations: [Mood disorder due to known physiological condition, unspecified] Onset: 07-09-2024 Episodic Mood disorders (20 sources) Mood disorders [...] conditions (not mental disorders or infectious disease) (16 sources) Patient encounter status; Translations: [Encounter for screening for diabetes mellitus] Onset: 10-24-2023 04-18-2023 Episodic Results Test Name Value Interpretation Reference Range Facility Absolute lymphocyte countOrd ered By: Yamileth Aguirre on 10-09-2024 Lymphocytes Auto (Unsp spec) [#/Vol] 2.90 10*3/uL 0.83-4.51 [facility] Absolute neutrophil countOrd ered By: Yamileth Aguirre on 10-09-2024 Neutrophils (Bld) [#/Vol] 4.9 10*3/uL 2.0-7.7 [facility] Anion gap in Serum or Plasma Ordered By: Yamileth Carla on 10-09-2024 Anion gap [Moles/Vol] 12 mmol/L 5-15 [facility] Automated lymphocyte count a s percentage of total leukocytesOrdered By: Yamileth Carla on 10-09-2024 Lymphocytes/100 WBC Auto (Unsp spec) 31.8 % 19- [facility] BUN/creatinine ratioOrdered By: [facility] Carla on 10-09-2024 Urea nitrogen/Creatinine [Mass ratio] 12.4 mg/mg 10- [facility] Basophil percentageOrdered B y: Yamileth Carla on 10-09-2024 Basophils/100 WBC (Bld) 0.7 % 0-1 [facility] Bilirubin, totalOrdered By: Yamileth Carla on 10-09-2024 Bilirubin [Mass/Vol] 0.38 mg/dL 0.00-1.30 [facility] CBC W/Diff, Automatedon Absolute Lymph 2.90 X10 3/uL Normal 0.83-4.51 [facility] Comment on above: Performed By: #### L 500.4050, L100.0100 ####[facility] [address] [place], [address] Absolute Neut 4.9 X10 3/uL Normal 2.0-7.7 [facility] Comment on above: Performed By: #### L 500.4050, L100.0100 ####[facility] [address] [place], [address] Basophils/100 WBC (Bld) 0.7 % Normal 0-1 [facility] Comment on above: Performed By: #### L [id number], L100.0100 ####[facility] [address] [place], [address] Eosinophils/100 WBC (Bld) 5.5 % High 0-5 [facility] Comment on above: Performed By: #### L 500.4050, L100.0100 ####[facility] [address] [place], [address] Erythrocyte distribution width (RBC) [Ratio] 13.7 % Normal 11.6-14.6 [facility] Comment on above: Performed By: #### L 500.4050, L100.0100 ####[facility] [address] [place], [address] Hematocrit (Bld) [Volume fraction] 38.1 % Low 40-54 [facility] Comment on above: Performed By: #### L 500.4050, L100.0100 ####[facility] [address] [place], [address] Hemoglobin (Bld) [Mass/Vol] 12.7 g/dL Low 13.0-16.5 [facility] Comment on above: Performed By: #### L 500.4050, L100.0100 ####[facility] [address] [place], [address] IG% 0.300 Normal 0.0-0.9 [facility] Comment on above: Result Comment: IG% - Immature Granulocytes (promyelocytes, myelocytes and metamyelocytes) > 1% indicates that a LEFT SHIFT is Present. Performed By: #### L 500.4050, L100.0100 ####[facility] [address] [place], [address] Lymphocytes/100 WBC (Bld) 31.8 % Normal 19-41 [facility] Comment on above: Performed By: #### L [id number], L100.0100 ####[facility] [address] [place], [address] MCH (RBC) [Entitic mass] 28.8 pg Normal 27.0-32.0 [facility] Comment on above: Performed By: #### L [id number], L100.0100 ####[facility] [address] [place], [address] MCHC (RBC) [Mass/Vol] 33.3 g/dL Normal 32-36 [facility] [facility] Comment on above: Performed By: #### L 500.4050, L100.0100 ####[facility] [address] [place], [address] MCV (RBC) [Entitic vol] 86.4 fL Normal 80-94 [facility] Comment on above: Performed By: #### L 500.4050, L100.0100 ####[facility] [address] [place], [address] Monocytes/100 WBC (Bld) 8.4 % Normal 0-10 [facility] Comment on above: Performed By: #### L 500.4050, L100.0100 ####[facility] [address] [place], [address] Neutrophils/100 WBC (Bld) 53.3 % Normal 47-70 [facility] Comment on above: Performed By: #### L 500.4050, L100.0100 ####[facility] [address] [place], [address] Nucleated RBC (Bld) [#/Vol] 0 10*3/uL Normal 0-5 [facility] Comment on above: Performed By: #### L 500.4050, L100.0100 ####[facility] [address] [place], [address] Platelet mean volume (Bld) [Entitic vol] 8.8 fL Normal 6.2-12.0 [facility] Comment on above: Performed By: #### L 500.4050, L100.0100 ####[facility] [address] [place], [address] Platelets (Bld) [#/Vol] 332 10*3/uL Normal 150-450 [facility] Comment on above: Performed By: #### L 500.4050, L100.0100 ####[facility] [address] [place], [address] RBC (Bld) [#/Vol] 4.41 10*6/uL Low 4.6-6.2 [facility] Comment on above: Performed By: #### L 500.4050, L100.0100 ####[facility] [address] [place], [address] RDW SD 42.9 fl Normal 35.1-43.9 [facility] Comment on above: Performed By: #### L 500.4050, L100.0100 ####[facility] [address] [place], [address] WBC (Bld) [#/Vol] 9.1 10*3/uL Normal 4.4-11.0 [facility] Comment on above: Performed By: #### L 500.4050, L100.0100 ####[facility] [address] [place], [address] Carbon dioxide, total [Moles /volume] in Central venous bloodOrdered By: Yamileth Aguirre on 10-09-2024 CO2 [Moles/Vol] 21.2 mmol/L 21.0-32.0 [facility] Chloride assayOrdered By: Cnythia Aguirre on 10-09-2024 Chloride [Moles/Vol] 104 mmol/L 98-108 [facility] Comprehensive Metabolic Prof ilon 10-09-2024 Albumin [Mass/Vol] 3.9 g/dL Normal 3.5-5.0 [facility] Comment on above: Performed By: #### L 500.4050, L100.0100 ####[facility] [address] [place], [address] Albumin/Globulin [Mass ratio] 1.8 {ratio} Normal 0.9-2.4 [facility] Comment on above: Performed By: #### L 500.4050, L100.0100 ####[facility] [address] [place], [address] ALK PHOS 67 U/L Normal 40-129 [facility] Comment on above: Performed By: #### L 500.4050, L100.0100 ####[facility] [address] [place], [address] ALT [Catalytic activity/Vol] 55 U/L High <=46 [facility] Comment on above: Performed By: #### L 500.4050, L100.0100 ####[facility] [address] [place], [address] AST [Catalytic activity/Vol] 40 U/L High <=37 [facility] Comment on above: Performed By: #### L 500.4050, L100.0100 ####[facility] [address] [place], [address] Bilirubin [Mass/Vol] 0.38 mg/dL Normal 0.00-1.30 [facility] Comment on above: Performed By: #### L 500.4050, L100.0100 ####[facility] [address] [place], [address] BUN/CRE 12.4 RATIO Normal 10-20 [facility] Comment on above: Performed By: #### L 500.4050, L100.0100 ####[facility] [address] [place], [address] Calcium [Mass/Vol] 9.1 mg/dL Normal 7.6-11.0 [facility] Comment on above: Performed By: #### L 500.4050, L100.0100 ####[facility] [address] [place], [address] Chloride [Moles/Vol] 104 mmol/L Normal 98-108 [facility] Comment on above: Performed By: #### L 500.4050, L100.0100 ####[facility] [address] [place], [address] CO2 [Moles/Vol] 21.2 mmol/L Normal 21.0-32.0 [facility] Comment on above: Performed By: #### L 500.4050, L100.0100 ####[facility] [address] [place], [address] Creatinine [Mass/Vol] 1.39 mg/dL High 0.70-1.20 [facility] Comment on above: Performed By: #### L 500.4050, L100.0100 ####[facility] [address] [place], [address] ECRCL 67.68 ml/min Normal 50-250 [facility] Comment on above: Performed By: #### L 500.4050, L100.0100 ####[facility] [address] [place], [address] GAP 12 Normal 5-15 [facility] Comment on above: Performed By: #### L 500.4050, L100.0100 ####[facility] [address] [place], [address] GFR/1.73 sq M.predicted among non-blacks MDRD (S/P/Bld) [Vol rate/Area] 64 mL/min/{1.73_m2} Normal >60 [facility] Comment on above: Result Comment: mL/m in/1.73m2 CKD-EPI Creatinine Equation (2020) Performed By: #### L 500.4050, L100.0100 ####[facility] [address] [place], [address] Globulin (S) [Mass/Vol] 2.2 g/dL Normal 2.2-4.2 [facility] Comment on above: Performed By: #### L 500.4050, L100.0100 ####[facility] [address] [place], [address] Glucose [Mass/Vol] 100 mg/dL High 70-99 [facility] Comment on above: Performed By: #### L 500.4050, L100.0100 ####[facility] [address] [place], [address] Potassium [Moles/Vol] 3.8 mmol/L Normal 3.3-5.1 [facility] Comment on above: Performed By: #### L 500.4050, L100.0100 ####[facility] [address] [place], [address] Sodium [Moles/Vol] 137 mmol/L Normal 133-145 [facility] Comment on above: Performed By: #### L 500.4050, L100.0100 ####[facility] [address] [place], [address] T PROT 6.2 g/dL Normal 5.9-8.4 [facility] Comment on above: Performed By: #### L 500.4050, L100.0100 ####[facility] [address] [place], [address] Urea nitrogen [Mass/Vol] 17 mg/dL Normal 4-19 [facility] Comment on above: Performed By: #### L 500.4050, L100.0100 ####[facility] [address] [place], [address] Consultation - Urologyon Consultation - Urology [facility] Medical Records Department [address] [place] [address] Consultation - Urology 10/09/24 1139 MR#: [id number] Acct: [id number] Name: CHAN BURCIAGA Rep #: [id number] : 1980 43 From: Salvador Rush MD PCP: Dr. Ramiro Rosa MD Status:ADM IN Location: MS3 LD350-9 HPI Consult Data Date of Consult: 10/09/24 HPI Narrative Reason for Consultation: BPH with obstruction, bladder stones, and left kidney stone HPI Narrative: CHAN BURCIAGA, is a 43 M who presentswith abdominal pain CAT scan was done demonstrated stone and obstructing the left kidney plan to do a cystoscopy left stent placement today he also has multiple stones his bladder he does have significant BPH with obstruction a very large prostate. At this point were to do this place a stent to alleviate obstruction and what the deal with the other stones and of the findings a separate setting once everything stable. [facility] Medical History Lives in [facility] Arthritis Back pain Non-smoker Shortness of breath on exertion Intellectual disability Recurrent major depression in full remission Hyperlipidemia Essential hypertension Urinary tract infection with hematuria Home Medications ???Medication ???Instructions ???Recorded ???Last Taken ???Type fenofibrate nanocrystallized 145 145 mg PO DAILY 07/08/18 12/18/23 History mg tablet folic acid 400 mcg tablet 0.4 mg PO DAILY@0800 07/08/1812/04 History garlic 200 mg tablet 350 mg PO DAILY 07/08/18 12/18/23 History loratadine 10 mg capsule (Claritin 10 mg PO DAILY 07/08/18 12/18/23 History Liqui-Gel) omega-3 fatty acids-fish oil 340 3 ea PO DAILY 07/08/18 12/15/23 Hi story mg-1,000 mg capsule (Fish Oil) ammonium lactate 12 % topical cream 1 applic topical DAILY 05/29/23 12/18/23 History atorvastatin 40 mg tablet 40 mg PO DAILY 05/29/23 12/18/23 H istory clonidine HCl 0.2 mg tablet 0.2 mg PO BID 05/29/23 12/19/23 06 :30 History doxazosin 2 mg tablet 2 mg PO QHS 05/29/23 12/18/23 Hist ory fluticasone propionate 50 2 spray intranasal DAILY 05/29/23 12/18/23 History mcg/actuation nasal spray,suspension (Allergy Relief (fluticasone)) losartan 100 mg tablet 100 mg PO DAILY 05/29/23 12/19/23 06:30 History multivitamin-ferrous 1 tab PO DAILY 05/29/23 12/18/23 H istory fumarate-folic acid 18 mg-400 mcg tablet (Certavite-Antioxidant) nabumetone 500 mg tablet 500 mg PO BID PRN pain 05/29/23 Un known History quetiapine 150 mg tablet,extended 150 mg PO 1600 05/29/23 12/18/23 History release 24 hr neomycin-bacitracn Zn-polymyx 3.5 1 applic topical TID PRN dry skin 11/05/23 Unknown History mg-400 unit-5,000 unit/gram top oint (Neosporin (vra-rvo-jqwam)) oxcarbazepine 600 mg tablet 600 mg PO BID 11/05/23 12/19/23 06 :30 History polyethylene glycol 3350 17 238 g PO ONCE Colonoscopy prep 01/2712/19/23 Rx gram/dose oral powder (Miralax) #238 grams Allergy/AdvReac Type Severity Reaction Status Date / Time risperidone (From Risperdal) Allergy ANXIETY Verified 10/08/24 16:53 Family History (Updated 10/08/24 @ 20:[address] Yamileth Aguirre MD) Mother Hyperlipidemia Father Hyperlipidemia Surgical History Hx of cystoscopy History of testicular surgery History of ankle surgery Social History household members: other details: Lives with others in residential home number of children: 0 Smoking Status: Never smoker alcohol intake: never substance use type: does not use Lab / Micro Data 10/09/24 05:03 10/09/24 05:03 Labs: Laboratory Results - last 24 hr 10/08/24 17:17: WBC 13.8 H, RBC 4.73, Hgb 13.7, Hct 40.6, MCV 85.8, MCH 29.0, MCHC 33.7, RDW Std Deviation 41.9, RDW Coeff of Jaime 13.4, Plt Count 327, MPV 9.0, Immature Gran % (Auto) 0.700, Neut % (Auto) 68.7, Lymph % (Auto) 19.2, [place] % (Auto) 8.0, Eos % (Auto) 2.9, Baso % (Auto) 0.5, Absolute Neuts (auto) 9.5 H, Absolute Lymphs (auto) 2.64, Nucleated RBC % 0, Sodium 135, Potassium 4.0, Chloride 101, Carbon Dioxide 19.3 L, Anion Gap 15, BUN 18, Creatinine 1.32 H, Estim Creat Clear Calc 72.57, Est GFR (MDRD) Non-Af 68, BUN/Creatinine Ratio 13.4, Glucose 100 H, Calcium 9.9, Total Bilirubin 0.33, AST 51 H, ALT 66 H, Alkaline Phosphatase 75, Total Protein 7.1, Albumin 4.4, Globulin 2.7, Albumin/Globulin Ratio 1.6 10/08/24 18:31: Urine Color Yellow, Urine Clarity Cloudy, Urine pH 7.0, Ur Specific [place] 1.010, U rine Protein 30 H, Urine Glucose (UA) Normal, Urine Ketones Negative, Urine Occult Blood 250 H, Urine Nitrite Negative, Urine Bilirubin Negative, Urine Urobilinogen Normal, Ur Leukocyte Esterase 25 H, Urine RBC > 100 SEEN, (more content not included)... Normal [facility] Discharge Instructionon Discharge Instruction [facility] Medical Records Department [address] [place] [address] Instructions for Home/Discharge Instructions 10/09/24 1545 MR#: [id number] Acct: [id number] Name: CHAN BURCIAGA Rep #: [id number] : 1980 43 From: Austin Mares MD PCP: Dr. Ramiro Rosa MD Status:ADM IN Discharge Instructions Diet Discharge Diet: Low fat / Low cholesterol DC O2, CPAP, BIPAP needs Home O2 Discharge instructions: No Dressing / Incision Discharge Activity: Return to Normal Activity Dressing / Incision Call your doctor if you observe: Fever of 101 or Higher, Shortness of breath, Dizziness, Fainting spells, Swelling in the ankles, Chest pain and Increased palpitations (irregular heartbeat) Follow Up Care Test Results: Test results from this visit will be discussed in further detail at your follow-up appointment, if applicable. Discharge Plan Admission Admit Date/Time: 10/08/24 20:03 Attending Provider: Austin Mares Primary Care Provider: Ramiro Rosa Consulting Providers: Salvador Rush; Yamileth Aguirre Instructions Patient Instructions: Having a Ureteral Stent Additional Instructions / Restrictions: Constipation is a risk with narcotics therefore I do recommend nzwb-eli-twzomos stool softeners while taking narcotics. Discharge Orders/Prescriptions Prescriptions: New oxycodone 5 mg Tablet 5 mg PO Q4H PRN PRN (Reason: Pain Score 4-10) 3 Days Qty: 10 0RF Continued quetiapine 150 mg tablet extended release 24 hr 150 mg PO 1600 Patient Comments: TAKE 1 TABLET BY MOUTHEONCE DAILY AT 4PM ammonium lactate 12 % cream 1 applic topical DAILY atorvastatin 40 mg tablet 40 mg PO DAILY Certavite-Antioxidant 18-400 mg-mcg tablet 1 tab PO DAILY clonidine HCl 0.2 mg tablet 0.2 mg PO BID doxazosin 2 mg tablet 2 mg PO QHS fluticasone propionate [Allergy Relief (fluticasone)] 50 mcg/actuation spray,suspension 2 spray intranasal DAILY Rx Instructions: administer into each nostril losartan 100 mg tablet 100 mg PO DAILY nabumetone 500 mg tablet 500 mg PO BID PRN (Reason: pain) Patient Comments: take 1 tablet by mouth twice a day oxcarbazepine 600 mg tablet 600 mg PO BID Neosporin (lzf-xht-cgghz) 3.5mg-400 unit- 5,000 unit/gram ointment 1 applic topical TID PRN (Reason: dry skin) Rx Instructions: To inside of nose for dry patches folic acid 0.4 MG tablet 0.4 mg PO DAILY@0800 fenofibrate nanocrystallized 145 MG tablet 145 mg PO DAILY Fish Oil 1 EACH capsule 3 ea PO DAILY Claritin Liqui-Gel 10 MG capsule 10 mg PO DAILY garlic 200 MG tablet 350 mg PO DAILY polyethylene glycol 3350 [Miralax] 17 gram/dose powder 238 g PO ONCE Qty: 238 0RF Rx Instructions: Mix 8.3oz bottle with 2-32oz bottles of yellow or orange Gatorade. Use as directed by Physician. Referrals / Follow Up: Ramiro Rosa MD [Primary Care Provider] - Within 1 Week Salvador Rush MD [Med Staff - Active Staff] - Within 2 Weeks Disposition Disposition (needs filled in before D/C Order can be placed): Home, Self Care 10/09/24 2469 Austin Mares MD CC: Dr. Yamileth Aguirre MD; Dr. Ramiro Rosa MD; Dr. Salvador Rush MD Signed Normal [facility] Eosinophil percentageOrdered By: Yamileth Aguirre on 10-09-2024 Eosinophils/100 WBC (Bld) 5.5 % High 0-5 [facility] Erythrocyte distribution wid th ratioOrdered By: Yamileth Carla on 10-09-2024 Erythrocyte distribution width (RBC) [Ratio] 13.7 % 11.6-14.6 [facility] Erythrocyte distribution wid th standard deviationOrdered By: Yamileth Aguirre on 10-09-2024 Erythrocyte distribution width (RBC) [Ratio] 42.9 fl 35.1-43.9 [facility] Glomerular filtration rate ( GFR) estimation/1.73 sq m using serum, plasma, or whole bOrdered By: Yamileth Aguirre on 10-09-2024 GFR/1.73 sq M.predicted among non-blacks MDRD (S/P/Bld) [Vol rate/Area] 64 mL/min/{1.73_m2} >60 [facility] Comment on above: mL/min/1.73m2 CKD-EP I Creatinine Equation (2020) Hematocrit Auto (Bld) [Volum e fraction]Ordered By: Yamileth Aguirre on 10-09-2024 Hematocrit (Bld) [Volume fraction] 38.1 % Low 40-54 [facility] Hemoglobin measurementOrdere d By: Yamileth Aguirre on 10-09-2024 Hemoglobin (Bld) [Mass/Vol] 12.7 g/dL Low 13.0-16.5 [facility] Immature granulocytes/100 WB C Auto (Bld)Ordered By: Yamileth Aguirre on 10-09-2024 Immature granulocytes/100 WBC (Bld) 0.300 % 0.0-0.9 [facility] Comment on above: IG% - Immature Granu locytes (promyelocytes, myelocytes and metamyelocytes) > 1% indicates that a LEFT SHIFT is Present. Laboratory - Chemistry and C hemistry - challengeOrdered By: Yamileth Aguirre on 10-09-2024 AST [Catalytic activity/Vol] 40 U/L High <38 [facility] MCV (mean corpuscular volume ) determinationOrdered By: Yamileth White on 10-09-2024 MCV (RBC) [Entitic vol] 86.4 fL 80-94 [facility] MR/POSTOP.ANEon 10-09-2024 MR/POSTOP.ANE [facility] Medical Records Department [address] [facility] [address] Anesthesia Postop Eval I 10/09/24 1302 MR#: [id number] Acct: [id number] Name: CHAN BURCIAGA Rep #: [id number] : 1980 43 From: Jeevan Madden CRNA PCP: Dr. Ramiro Rosa MD Status:ADM IN Y Race: C Location: [place] [address] Anesthesia: Postop Eval I Current Vital Signs Temperature: 97.3 F Pulse Rate: 87 Blood Pressure: 126/78 Respiratory Rate: 16 Pulse Ox: 93 Oxygen Delivery Method: Nasal Cannula Oxygen Flow Rate (L/min): 3 Assessment Airway patent: Yes Spontaneous unlabored respirations: Yes Mental status: Awake and Calm nausea: No Vomiting: No Anesthesia Complication: No Fluid Hydration Crystalloid volume administer (ml): 500 Total IV fluid infused: 500 Progress Note Anesthesia document: Postop Eval 1 completed: Yes 10/09/24 1303 Date Jeevan Madden [employer]SEM[employer]ER Cosigner Signature: Date CC: Signed Normal [facility] [id number] 10-09-2024 MR/POSTOPAN2 [facility] Medical Records Department [address] [place] [address] Anesthesia Postop Eval II 10/09/24 1338 MR#: [id number] Acct: [id number] Name: CHAN BURCIAGA Rep #: [id number] : 1980 43 From: Sandro Julian MD PCP: Dr. Ramiro Rosa MD Status:ADM IN Y Race: C Location: MS3 DV139-7 Anesthesia Postop Eval I Sum Postop Eval Completion status Anesthesia document: Postop Eval 1 completed: Yes Anesthesia Postop Eval I Summary Anesthesia Postop Eval I Summary: Anesthesia Postop Eval I: Assessment Summary Airway patent Yes 10/09/24 13:03 [employer]ER.SOBR Spontaneous unlabored Yes 10/09/24 13:03 [employer].SOBR respirations Mental status Awake,Calm 10/09/24 13:03 [employer].SOBR nausea No 10/09/24 13:03 [employer] CONDITION[employer]IT [employer].SOBR Vomiting No 10/09/24 13:03 [employer].SOBR Anesthesia Postop Eval I: Fluid Summary Crystalloid volume administer 500 10/09/24 13:03 [employer] CONDITION[employer]IT [employer]ER.SOBR (ml) Colloids volume administered ( ml) Blood Product volume administered (ml) Total IV fluid infused 500 10/09/24 13:03 [employer].SOBR Anesthesia Postop Eval I: Summary Notes Anesthesia Complication No 10/09/24 13:03 [employer].SOBR Anesthesia Complication Comment: Post-operative progress note Anesthesia: Postop Eval II Evaluation Mental status: Awake Pain Level: 0 nausea: No Vomiting: No 10/09/24 1338 Date Sandro Julian MD Cosigner Signature: Date CC: Signed Normal [facility] Mean corpuscular hemoglobin (MCH) determinationOrdered By: Yamileth Aguirre on 10-09-2024 MCH (RBC) [Entitic mass] 28.8 pg 27.0-32.0 [facility] Mean corpuscular hemoglobin concentration (MCHC) determinationOrdered By: Yamileth Aguirre on 10-09-2024 MCHC (RBC) [Mass/Vol] 33.3 g/dL 32-36 [facility] Mean platelet volume determi nationOrdered By: White on 10-09-2024 Platelet mean volume (Bld) [Entitic vol] 8.8 fL 6.2-12.0 [facility] Monocyte percentageOrdered B y: White on 10-09-2024 Monocytes/100 WBC (Bld) 8.4 % 0-10 [facility] Neutrophil percentageOrdered By: Yamileth White on 10-09-2024 Neutrophils/100 WBC (Bld) 53.3 % 47-70 [facility] Nucleated red blood cell per centageOrdered By: White on 10-09-2024 Nucleated RBC/100 WBC (Bld) [Ratio] 0 % 0-5 [facility] Operative Reporton Operative Report [facility] Medical Records Department [address] [place] [address] Operative Report 10/09/24 1246 MR#: [id number] Acct: [id number] Name: CHAN BURCIAGA Rep #: [id number] : 1980 43 From: Salvador Rush MD PCP: Dr. Ramiro Rosa MD Status:ADM IN [facility] (Standard) Operative Information Date of Procedure: 10/09/24 Pre-Operative Diagnosis: Left obstructing kidney stone Post-Operative Diagnosis: Same Surgery/Procedure Performed: Cystoscopy and left stent placement correction officer supervisor: No Type of Anesthesia: General RN Documented Start/Stop Times: Operation Date: 10/09/24 08:00 Case Time Into Pre-Op 10/09/24 11:35 Into Room 10/09/24 12:26 Anesthesia Start 10/09/24 12:31 Procedure Start 10/09/24 12:42 Procedure End 10/09/24 12:46 Procedure Start Time: 12:42 Procedure Stop Time: 12:46 Select all DRAINS/GRAFTS/IMPLANTS that apply: None and Drains Drain details: left stent Estimated Blood Loss: None Specimen collected: No Description of surgery: Patient was taken back to the operating room after smooth induction of anesthesia he was placed in dorsolithotomy position. One of the bladder with a 21 [place] rigid cystourethroscope found that he had a very large obstructive prostate very large median lobe a bunch of stones in the base of his bladder did not plan to do anything at this point with this but significant findings that he is going to have the stones lasered out at some point in the future and also we need to have surgery on his prostate from such a large obstructing prostate. He did have a large stone blocking his left kidney so wire was put up in the left kidney and we placed a stent to the left side to allow the kidney to drain and allow the ureter to dilate for anticipation for laser lithotripsy in the future. Patient acetic was a reversed thing back to the PACU good condition and we will set him up for outpatient surgery to laser the stone. Surgical Findings: Stent placement a left-sided en bloc kidney Complications Complications: No Admit VTE Documentation VTE Present on Admission: No VTE Mechan Device Prophylaxis: SCD's VTE Pharm Prophylaxis ordered?: No 10/09/24 1248 Cosigner Signature (if applicable): CC: Dr. Yamileth Aguirre MD; Dr. Ramiro Rosa MD; Dr. Salvador Rush MD Signed Normal [facility] Platelet countOrdered By: Cynthia triston Carla on 10-09-2024 Platelets (Bld) [#/Vol] 332 10*3/uL 150-450 [facility] Potassium measurement (mass/ volume)Ordered By: Yamileth Aguirre on 10-09-2024 Potassium (Unsp spec) [Mass/Vol] 3.8 mmol/L 3.3-5.1 [facility] RBC Auto (Bld) [#/Vol]Ordere d By: Yamileth Aguirre on 10-09-2024 RBC (Bld) [#/Vol] 4.41 10*6/uL Low 4.6-6.2 [facility] Serum creatinine measurement (mass/volume)Ordered By: Yamileth Aguirre on 10-09-2024 Creatinine [Mass/Vol] 1.39 mg/dL High 0.70-1.20 [facility] Serum globulin measurementOr dered By: Yamileth Aguirre on 10-09-2024 Globulin (S) [Mass/Vol] 2.2 g/dL 2.2-4.2 [facility] Serum glucose measurement (m ass/volume)Ordered By: Yamileth Aguirre on 10-09-2024 Glucose [Mass/Vol] 100 mg/dL High 70-99 [facility] Serum or plasma alanine rousseau otransferase (ALT) measurementOrdered By: Yamileth Aguirre on 10-09-2024 ALT [Catalytic activity/Vol] 55 U/L High <47 [facility] Serum or plasma albumin ashlee urement (mass/volume)Ordered By: Yamileth Aguirre on 10-09-2024 Albumin [Mass/Vol] 3.9 g/dL 3.5-5.0 [facility] Serum or plasma albumin/glob ulin mass ratioOrdered By: Yamileth Aguirre on 10-09-2024 Albumin/Globulin [Mass ratio] 1.8 {ratio} 0.9-2.4 [facility] Serum or plasma alkaline monica sphatase measurementOrdered By: Yamileth Carla on 10-09-2024 ALP [Catalytic activity/Vol] 67 U/L 40-129 [facility] Serum or plasma calcium ashlee urement (mass/volume)Ordered By: Yamileth Aguirre on 10-09-2024 Calcium [Mass/Vol] 9.1 mg/dL 7.6-11.0 [facility] Serum or plasma urea nitroge n measurement (mass/volume)Ordered By: Yamileth Aguirre on 10-09-2024 Urea nitrogen [Mass/Vol] 17 mg/dL 4-19 [facility] Sodium levelOrdered By: Treyu mn Carla on 10-09-2024 Sodium [Moles/Vol] 137 mmol/L 133-145 [facility] Total proteinOrdered By: Aut umn Carla on 10-09-2024 Protein [Mass/Vol] 6.2 g/dL 5.9-8.4 [facility] [facility] White blood cell (WBC) count Ordered By: Yamileth Aguirre on 10-09-2024 WBC (Bld) [#/Vol] 9.1 10*3/uL 4.4-11.0 [facility] 36on 10-08-2024 36 Agree, thank you [facility] 36 S: Patient's caregiv er, Iesha, spoke with [facility] nurse regarding abdominal pain and back pain B:onset symptoms/concern: back pain at least 5 day , seen in on 09/27 for UTI- completed antibiotic Abdominal pain- today A: Per Iesha, Patient complaints of mid abdominal pain. Pain is intermittent. Ranging from mild to moderate. No bloody or black Bm's. Patient is urinating regularly. Has not had blood in urine since UC visit. No swelling/pain in genitals. Back pain remains the same as when had UTI symptoms. No known injury. Denies diarrhea, vomiting, fever, injury, yellow sclera, pallor, chest pain. R: no openings in advised timeframe- advised UC in the next 24 hours.nathalie is agreeable to plan. Reason for Disposition [1] MODERATE pain (e.g., interferes with normal activities) AND [2] pain comes and goes (cramps) AND [3] present > 24 hours (Exception: Pain with Vomiting or Diarrhea - see that Guideline.) Protocols used: Abdominal Pain -ADULT-[facility] Abdomen/Pelvis W IV Cont ONL Yon 10-08-2024 Abdomen/Pelvis W IV Cont ONLY [facility] Imaging Services [address], [place] [address] Abdomen/Pelvis W IV Cont ONLY MR#: [id number] Acct: [id number] Name: CHAN BURCIAGA Rep #: [id number] : 1980 M 43 From: Jd Garza PCP: Dr. Ramiro Rosa MD Status: REG ER Study: Abdomen/Pelvis W IV Cont ONLY Date of Exam: Exam# [id number] Ordering Dr: Brad Goins MD PROCEDURE: ABDOMEN/PELVIS W IV CONT ONLY 10/08/2024 REASON FOR EXAM: ABDOMINAL PAIN. HISTORY OF KIDNEY STONES. TECHNIQUE: Abdomen and pelvis CT with intravenous contrast. Coronal and Sagittal reconstruction series were provided. PATIENT PREPARATION: Per protocol ORAL CONTRAST TYPE: None. CONTRAST: 100 mL of Isovue 370 One or more dose reduction techniques were used (e.g., Automated exposure control, adjustment of the mA and/or kV according to patient size, use of iterative reconstruction technique. RADIATION DOSE SUMMARY: DLP: 1100 mGycm COMPARISON: 03/02/2021 FINDINGS: Limited sections of the lung bases demonstrate no focal pulmonary mass. Coronary atherosclerosis. Heart is borderline enlarged. The liver, spleen, pancreas, and both adrenal glands demonstrate no acute findings. Hepatic steatosis. The gallbladder is unremarkable. Tiny hiatal hernia; otherwise stomach is unremarkable. The aorta and IVC demonstrate no acute findings. There is no free air, free fluid or intestinal obstruction. The small bowel loops are not dilated. The appendix is normal. No bowel obstruction. The pelvic structures are intact. There is no solid pelvic mass. 9 mm obstructive stone at the distal left ureter with associated upstream moderate hydroureteronephrosis. Scattered additional nonobstructive stones are noted within the bilateral kidneys. Multiple cystic structures within bilateral kidneys measuring up to 2.9 cm within the left and 1.6 cm within the right. Multiple urinary bladder stones are noted. Mild thickening of the urinary bladder wall which may reflect cystitis versus partial nondistention; consider correlation with urinalysis. Enlarged prostate with abutment onto the urinary bladder wall. Visualized osseous structures demonstrate no acute abnormality. Bilateral small fat containing inguinal hernias, right larger than left. CT/Abdomen/Pelvis W IV Cont ONLY IMPRESSION: 9 mm obstructive stone at the distal left ureter with associated upstream moderate hydroureteronephrosis. Multiple urinary bladder stones are noted. Mild thickening of the urinary bladder wall which may reflect cystitis versus partial nondistention; consider correlation with urinalysis. Enlarged prostate with abutment onto the urinary bladder wall. Reading Location: [facility] CC: Dr. Ramiro Rosa MD; Dr. Brad Goins MD Mold Puller: Signed Normal [facility] Absolute lymphocyte countOrd ered By: Brad Goins on 10-08-2024 Lymphocytes Auto (Unsp spec) [#/Vol] 2.64 10*3/uL 0.83-4.51 [facility] Absolute neutrophil countOrd ered By: Brad Goins on 10-08-2024 Neutrophils (Bld) [#/Vol] 9.5 10*3/uL High 2.0-7.7 [facility] Anion gap in Serum or Plasma Ordered By: Brad Goins on 10-08-2024 Anion gap [Moles/Vol] 15 mmol/L 5-15 [facility] Automated lymphocyte count a s percentage of total leukocytesOrdered By: Brad Goins on 10-08-2024 Lymphocytes/100 WBC Auto (Unsp spec) 19.2 % 19-41 [facility] BUN/creatinine ratioOrdered By: Brad Goins on 10-08-2024 Urea nitrogen/Creatinine [Mass ratio] 13.4 mg/mg 10-20 [facility] Basophil percentageOrdered B y: Brad Goins on 10-08-2024 Basophils/100 WBC (Bld) 0.5 % 0-1 [facility] Bilirubin Test strip Ql (U)O rdered By: Brad Goins on 10-08-2024 Bilirubin Ql (U) Negative Negative [facility] Bilirubin, totalOrdered By: Brad Goins on 10-08-2024 Bilirubin [Mass/Vol] 0.33 mg/dL 0.00-1.30 [facility] CBC W/Diff, Automatedon Absolute Lymph 2.64 X10 3/uL Normal 0.83-4.51 [facility] Comment on above: Performed By: #### L 100.0100, L500.4050 #### [facility] [address] [place], [address] Absolute Neut 9.5 X10 3/uL High 2.0-7.7 [facility] Comment on above: Performed By: #### L 100.0100, L500.4050 #### [facility] [address] [place], [address] Basophils/100 WBC (Bld) 0.5 % Normal 0-1 [facility] Comment on above: Performed By: #### L 100.0100, L500.4050 #### [facility] [address] [place], [address] Eosinophils/100 WBC (Bld) 2.9 % Normal 0-5 [facility] Comment on above: Performed By: #### L 100.0100, L500.4050 #### [facility] [address] [place], [address] Erythrocyte distribution width (RBC) [Ratio] 13.4 % Normal 11.6-14.6 [facility] Comment on above: Performed By: #### L 100.0100, L500.4050 #### [facility] [address] [place], [address] Hematocrit (Bld) [Volume fraction] 40.6 % Normal 40-54 [facility] Comment on above: Performed By: #### L 100.0100, L500.4050 #### [facility] [address] [place], [address] Hemoglobin (Bld) [Mass/Vol] 13.7 g/dL Normal 13.0-16.5 [facility] Comment on above: Performed By: #### L 100.0100, L500.4050 #### [facility] [address] [place], [address] IG% 0.700 Normal 0.0-0.9 [facility] Comment on above: Result Comment: IG% - Immature Granulocytes (promyelocytes, myelocytes and metamyelocytes) > 1% indicates that a LEFT SHIFT is Present. Performed By: #### L 100.0100, L500.4050 #### [facility] [address] [place], [address] Lymphocytes/100 WBC (Bld) 19.2 % Normal 19-41 [facility] Comment on above: Performed By: #### L 100.0100, L500.4050 #### [facility] [address] [place], [address] MCH (RBC) [Entitic mass] 29.0 pg Normal 27.0-32.0 [facility] Comment on above: Performed By: #### L 100.0100, L500.4050 #### [facility] [address] [place], [address] MCHC (RBC) [Mass/Vol] 33.7 g/dL Normal 32-36 [facility] Comment on above: Performed By: #### L 100.0100, L500.4050 #### [facility] [address] [place], [address] MCV (RBC) [Entitic vol] 85.8 fL Normal 80-94 [facility] Comment on above: Performed By: #### L 100.0100, L500.4050 #### [facility] [address] [place], [address] Monocytes/100 WBC (Bld) 8.0 % Normal 0-10 [facility] Comment on above: Performed By: #### L 100.0100, L500.4050 #### [facility] [address] [place], [address] Neutrophils/100 WBC (Bld) 68.7 % Normal 47-70 [facility] Comment on above: Performed By: #### L 100.0100, L500.4050 #### [facility] [address] [place], [address] Nucleated RBC (Bld) [#/Vol] 0 10*3/uL Normal 0-5 [facility] Comment on above: Performed By: #### L 100.0100, L500.4050 #### [facility] [address] [place], [address] Platelet mean volume (Bld) [Entitic vol] 9.0 fL Normal 6.2-12.0 [facility] Comment on above: Performed By: #### L 100.0100, L500.4050 #### [facility] [address] [place], [address] Platelets (Bld) [#/Vol] 327 10*3/uL Normal 150-450 [facility] Comment on above: Performed By: #### L 100.0100, L500.4050 #### [facility] [address] [place], [address] RBC (Bld) [#/Vol] 4.73 10*6/uL Normal 4.6-6.2 [facility] Comment on above: Performed By: #### L 100.0100, L500.4050 #### [facility] [address] [place], [address] RDW SD 41.9 fl Normal 35.1-43.9 [facility] Comment on above: Performed By: #### L 100.0100, L500.4050 #### [facility] [address] [place], [address] WBC (Bld) [#/Vol] 13.8 10*3/uL High 4.4-11.0 [facility] Comment on above: Performed By: #### L 100.0100, L500.4050 #### [facility] [address] [place], [address] CNOVon 10-08-2024 CNOV Office Visit (UCWSTR ) CHAN BURCIAGA ([id number]) 1980 M Date Time Provider Department 10/08/24 4:15 PM ZACH CARDENAS [facility] During your visit today, we recorded the following information about you: Temperature Pulse Respiration Blood pressure 97 degrees 97/minute 20/minute 134/88 Weight 85 kg Zach Cardenas MD 10/08/2024 4:34 PM Signed [facility] Subjective Chan Medrano Gualberto is a 43 year old male. Patient presents with: Back Pain: Mid lower back pain, lower abd pain x 1 week Patient presents with persistent back pain. He was evaluated he we did not hear 09/27/2024. Urinalysis showed blood and he was treated with Keflex. Urine culture had no significant growth. He returns today with mid lumbar pain and now has abdominal pain. He is unable to localize the abdominal pain. He has had no fever, nausea, vomiting, diarrhea, constipation. He has been treated with acetaminophen for pain. He has a history of kidney stones. Back Pain Review of Systems Musculoskeletal: Positive for back pain. Objective BP 134/88 Pulse 97 Temp 36.1 ?C (97 ?F) Resp 20 Wt 85 kg (187 lb 6.3 oz) SpO2 95% Physical Exam Constitutional: General: He is not in acute distress. Appearance: He is not ill-appearing. Comments: Accompanied by [facility] caregiver Eyes: Extraocular Movements: Extraocular movements intact. Conjunctiva/sclera: Conjunctivae normal. Pupils: Pupils are equal, round, and reactive to light. Cardiovascular: Rate and Rhythm: Normal rate and regular rhythm. Heart sounds: No murmur heard. Pulmonary: Effort: No respiratory distress. Breath sounds: No wheezing or rhonchi. Abdominal: General: There is no distension. Palpations: There is no mass. Tenderness: There is abdominal tenderness (Discomfort with palpation over the suprapubic area). There is no right CVA tenderness or left CVA tenderness. Musculoskeletal: Cervical back: Neck supple. Comments: BACK: Normal curvature of spine. Midline mid lumbar discomfort with palpation. No paraspinal tenderness. Straight leg test negative. Deep tendon reflexes 2+/4 at patellas. Normal lower extremity strength. Neurological: Mental Status: He is alert. {ASSESSMENT/PLAN: 1. Midline low back pain, unspecified chronicity, unspecified whether sciatica present - ICD9: 724.2, ICD10: M54.50 (primary diagnosis) 2. Abdominal pain, unspecified abdominal location - ICD9: 789.00, ICD10: R10.9 3. Microscopic hematuria - ICD9: 599.72, ICD10: R31.29 4. History of kidney stones - ICD9: V13.01, ICD10: Z87.442 - UA DIP, URINE (POC) - large blood. + protein. Suspect renal calculus. Proceed to the emergency room for persistent back pain and now abdominal pain where imaging is available. His caregiver will take him. Zach Cardenas MD MDM Procedures Allergies As of Date: 10/08/2024 Noted Allergy Reaction RISPERIDONE 03/10/2015 1 - Mental Status Change Date Reviewed: 10/08/2024 Reviewed by: Aislinn Simpson LPN - Fully Assessed Reason for Visit: Back Pain [12] Cmt: Mid lower back pain, lower abd pain x 1 week Primary Visit Diagnosis:Midline low back pain, unspecified chronicity, unspecified whether sciatica present [M54.50] Other Visit Diagnoses:Abdominal pain, unspecified abdominal location [R10.9] Microscopic hematuria [R31.29] History of kidney stones [Z87.442] Order(s):UA DIP, URINE (POC) [4557966] Order #: [id number] #:[id number] -LAB Prescriptions as of 10/08/2024 - clonazePAM (KLONOPIN) 0.5 mg tablet Take 0.5 mg by mouth three times a day. - QUEtiapine (SEROQUEL) 100 mg tablet Take 100 mg by mouth once daily. - ammonium lactate (LAC-HYDRIN) 12 % cream APPLY TOPICALLY TO FEET ONCE EVERY DAY (8PM) - atorvastatin (LIPITOR) 40 mg tablet Take 1 tablet by mouth once daily. - cloNIDine HCl (CATAPRES) 0.2 mg tablet Take 0.2 mg by mouth two times a day. - [...] TABLET BY MOUTH ONCE EVERY DAY (4PM) - losartan (COZAAR) 100 mg tablet Take 1 tablet by mouth once daily. - OXcarbazepine (TRILEPTAL) 600 mg tablet TAKE 1 TABLET BY MOUTH TWICE DAILY (7AM,8PM) - QUEtiapine (SEROQUEL) 200 mg tablet Take 200 mg by mouth every afternoon. - nabumetone (RELAFEN) 500 mg tablet Take 500 mg by mouth. - Lvpernzc-KurprtbqwZw-Auiqrl vikram 3.5-500-10,000 sm-vbfw-bfoi oint APPLY TOPICALLY TO INSIDE OF NOSE 3 TIMES DAILY NEEDED FOR DR (more content not included)... Normal [facility] Carbon dioxide, total [Moles /volume] in Central venous bloodOrdered By: Brad Goins on 10-08-2024 CO2 [Moles/Vol] 19.3 mmol/L Low 21.0-32.0 [facility] Chloride assayOrdered By: Hemanth Goins on 10-08-2024 Chloride [Moles/Vol] 101 mmol/L 98-108 [facility] Comprehensive Metabolic Prof ilon 10-08-2024 Albumin [Mass/Vol] 4.4 g/dL Normal 3.5-5.0 [facility] Comment on above: Performed By: #### L 100.0100, L500.4050 #### [facility] [address] [place], [address] Albumin/Globulin [Mass ratio] 1.6 {ratio} Normal 0.9-2.4 [facility] Comment on above: Performed By: #### L 100.0100, L500.4050 #### [facility] [address] [place], [address] ALK PHOS 75 U/L Normal 40-129 [facility] Comment on above: Performed By: #### L 100.0100, L500.4050 #### [facility] [address] [place], [address] ALT [Catalytic activity/Vol] 66 U/L High <=46 [facility] Comment on above: Performed By: #### L 100.0100, L500.4050 #### [facility] [address] [place], [address] AST [Catalytic activity/Vol] 51 U/L High <=37 [facility] Comment on above: Performed By: #### L 100.0100, L500.4050 #### [facility] [address] [place], [address] Bilirubin [Mass/Vol] 0.33 mg/dL Normal 0.00-1.30 [facility] Comment on above: Performed By: #### L 100.0100, L500.4050 #### [facility] [address] [place], [address] BUN/CRE 13.4 RATIO Normal 10-20 [facility] Comment on above: Performed By: #### L 100.0100, L500.4050 #### [facility] [address] [place], [address] Calcium [Mass/Vol] 9.9 mg/dL Normal 7.6-11.0 [facility] Comment on above: Performed By: #### L 100.0100, L500.4050 #### [facility] [address] [place], [address] Chloride [Moles/Vol] 101 mmol/L Normal 98-108 [facility] Comment on above: Performed By: #### L 100.0100, L500.4050 #### [facility] [address] [place], [address] CO2 [Moles/Vol] 19.3 mmol/L Low 21.0-32.0 [facility] Comment on above: Performed By: #### L 100.0100, L500.4050 #### [facility] [address] [place], [address] Creatinine [Mass/Vol] 1.32 mg/dL High 0.70-1.20 [facility] Comment on above: Performed By: #### L 100.0100, L500.4050 #### [facility] [address] [place], [address] ECRCL 72.57 ml/min Normal 50-250 [facility] Comment on above: Performed By: #### L 100.0100, L500.4050 #### [facility] [address] [place], [address] GAP 15 Normal 5-15 [facility] Comment on above: Performed By: #### L 100.0100, L500.4050 #### [facility] [address] [place], [address] GFR/1.73 sq M.predicted among non-blacks MDRD (S/P/Bld) [Vol rate/Area] 68 mL/min/{1.73_m2} Normal >60 [facility] Comment on above: Result Comment: mL/m in/1.73m2 CKD-EPI Creatinine Equation (2020) Performed By: #### L 100.0100, L500.4050 #### [facility] [address] [place], [address] Globulin (S) [Mass/Vol] 2.7 g/dL Normal 2.2-4.2 [facility] Comment on above: Performed By: #### L 100.0100, L500.4050 #### [facility] [address] [place], [address] Glucose [Mass/Vol] 100 mg/dL High 70-99 [facility] Comment on above: Performed By: #### L 100.0100, L500.4050 #### [facility] [address] [place], [address] Potassium [Moles/Vol] 4.0 mmol/L Normal 3.3-5.1 [facility] Comment on above: Performed By: #### L 100.0100, L500.4050 #### [facility] [address] [place], [address] Sodium [Moles/Vol] 135 mmol/L Normal 133-145 [facility] Comment on above: Performed By: #### L 100.0100, L500.4050 #### [facility] [address] [place], [address] T PROT 7.1 g/dL Normal 5.9-8.4 [facility] Comment on above: Performed By: #### L 100.0100, L500.4050 #### [facility] [address] [place], [address] Urea nitrogen [Mass/Vol] 18 mg/dL Normal 4-19 [facility] Comment on above: Performed By: #### L 100.0100, L500.4050 #### [facility] [address] [place], [address] Emergency Department Summary on 10-08-2024 Emergency Department Summary [facility] Medical Records Department [address] [place] [address] Emergency Department Summary 10/08/24 MR#: [id number] Acct: [id number] Name: CHAN BURCIAGA Rep #: [id number] : 1980 43 From: Brad Goins MD PCP: Dr. Ramiro Rosa MD Status:ADM IN Location: [facility]3 JR710-2 HPI HPI - GI History of Present Illness Chief Complaint: Abd Pain Informant: patient and other (Staff member of patient's facility.) Abdominal Pain/Flank Pain Onset: Days Context: Gradual Onset Timing: Continuous Quality: Dull Location: See Diagram (Back pain and periumbilical.) Current Severity: Mild Maximum Severity: Mild Worsened by: Nothing Relieved by: Nothing Nausea/Vomiting/Emesis GI Symptom: Negative for Nausea or Vomiting Diarrhea/Melena/Hematochezi a GI Symptom: Negative for Diarrhea, Melena or Hematochezia Associated Symptoms Associated Symptoms: Negative for Dysuria, Frequency or Hematuria Narrative Narrative: 43-year-old male from [facility]. History of hypertension kidney stones. Said the back pain for the last 5 days. Went to urgent care today sent in the Emergency Department for further evaluation. Recently was on antibiotic for possible UTI because he had blood in his urine but the culture ended up being negative. Staff this with the patient states that he has had no vomiting diarrhea or fever. No dysuria. Prior similar symptoms: No Recent Illness/Hospitalization: No [facility] Medical History Lives in [facility] Arthritis Back pain Non-smoker Shortness of breath on exertion Intellectual disability Recurrent major depression in full remission Hyperlipidemia Essential hypertension Urinary tract infection with hematuria Home Medications ???Medication ???Instructions ???Recorded ???Last Taken ???Type fenofibrate nanocrystallized 145 145 mg PO DAILY 07/08/18 12/18/23 History mg tablet folic acid 400 mcg tablet 0.4 mg PO DAILY@0800 07/08/1812/04 History garlic 200 mg tablet 350 mg PO DAILY 07/08/18 12/18/23 History loratadine 10 mg capsule (Claritin 10 mg PO DAILY 07/08/18 12/18/23 History Liqui-Gel) omega-3 fatty acids-fish oil 340 3 ea PO DAILY 07/08/18 12/15/23 Hi story mg-1,000 mg capsule (Fish Oil) ammonium lactate 12 % topical cream 1 applic topical DAILY 05/29/23 12/18/23 History atorvastatin 40 mg tablet 40 mg PO DAILY 05/29/23 12/18/23 H istory clonidine HCl 0.2 mg tablet 0.2 mg PO BID 05/29/23 12/19/23 06 :30 History doxazosin 2 mg tablet 2 mg PO QHS 05/29/23 12/18/23 Hist ory fluticasone propionate 50 2 spray intranasal DAILY 05/29/23 12/18/23 History mcg/actuation nasal spray,suspension (Allergy Relief (fluticasone)) losartan 100 mg tablet 100 mg PO DAILY 05/29/23 12/19/23 06:30 History multivitamin-ferrous 1 tab PO DAILY 05/29/23 12/18/23 H istory fumarate-folic acid 18 mg-400 mcg tablet (Certavite-Antioxidant) nabumetone 500 mg tablet 500 mg PO BID PRN pain 05/29/23 Un known History quetiapine 150 mg tablet,extended 150 mg PO 1600 05/29/23 12/18/23 History release 24 hr neomycin-bacitracn Zn-polymyx 3.5 1 applic topical TID PRN dry skin 11/05/23 Unknown History mg-400 unit-5,000 unit/gram top oint (Neosporin (aqv-pvy-ybfxb)) oxcarbazepine 600 mg tablet 600 mg PO BID 11/05/23 12/19/23 06 :30 History polyethylene glycol 3350 17 238 g PO ONCE Colonoscopy prep 01/2712/19/23 Rx gram/dose oral powder (Miralax) #238 grams Allergy/AdvReac Type Severity Reaction Status Date / Time risperidone (From Risperdal) Allergy ANXIETY Verified 10/08/24 16:53 Surgical History Hx of cystoscopy History of testicular surgery History of ankle surgery Social History household members: other details: Lives with others in residential home number of children: 0 Smoking Status: Never smoker alcohol intake: never substance use type: does not use ROS ROS ED Constitutional Constitutional ED: Denies chills or fever(s) ENT ENT ED: Denies ear pain Cardiovascular Cardiovascular: Denies chest pain Respiratory/Chest Respiratory/Chest: Denies cough Gastrointestinal Gastrointestinal: Reports abdominal pain; Denies constipation, diarrhea, melena, nausea or vomiting Genitourinary Genitourinary ED: Denies dysuria or hematuria Musculoskeletal Musculoskeletal: Denies arthralgias Integumentary Denies abscess Psychiatric Psychiatric: Denies anxiety Endocrine Endocrinology: Denies polydipsia Hematologic/Lymphatic Hematologic/Lymphatic: Denies easy bleeding Allergic/Immunologic Allergic/Immunologic ED: Denies mouth swelling, tongue swelling or urticaria EXAM Physical E (more content not included)... Normal [facility] Eosinophil percentageOrdered By: Brad Goins on 10-08-2024 Eosinophils/100 WBC (Bld) 2.9 % 0-5 [facility] Erythrocyte distribution wid th ratioOrdered By: Brad Goins on 10-08-2024 Erythrocyte distribution width (RBC) [Ratio] 13.4 % 11.6-14.6 [facility] Erythrocyte distribution wid th standard deviationOrdered By: Brad Goins on 10-08-2024 Erythrocyte distribution width (RBC) [Ratio] 41.9 fl 35.1-43.9 [facility] Glomerular filtration rate ( GFR) estimation/1.73 sq m using serum, plasma, or whole bOrdered By: Brad Goins on 10-08-2024 GFR/1.73 sq M.predicted among non-blacks MDRD (S/P/Bld) [Vol rate/Area] 68 mL/min/{1.73_m2} >60 [facility] Comment on above: mL/min/1.73m2 CKD-EP I Creatinine Equation (2020) H AND P Exam - [facility] 10-08-2024 H&P Exam - Hospitalist [facility] Medical Records Department [address] [place] [address] H P Exam - Hospitalist 10/08/242001 MR#: [id number] Acct: [id number] Name: CHAN BURCIAGA Rep #: [id number] : 1980 43 From: Yamileth Aguirre MD PCP: Dr. Ramiro Rosa MD Status:ADM IN Location: [facility] [place] RI233-1 HPI - General General Date of Admission: 10/08/24 Date of Service: 10/08/24 Chief Complaint: Abdominal pain, flank pain. HPI Narrative The patient is a 43 y/o M w/ intellectual debilities living in a mcc w/ PMHx: CKD stage II per GFR trending, HTN, HLD, Anxiety and Depression/Mood disorder, Obesity who presents to the [facility] ED on 10/08/24 with history of abdominal pain with no associated nausea or emesis but persistent described primarily in the back/flank and periumbilical region with history of previous kidney stones noting that the discomfort in the back/flank is been ongoing for at least 5 days sent to the urgent care initially referred to the ED given concern for possible UTI and antibiotic needs with no fevers or chills. Patient currently notes pain is improved after morphine but discussion with patient and mcc staff he rates his discomfort previously potentially 7-8 out of 10 in severity and more in the back/flank. Workup in the ED included T97.6, heart rate 101, BP 141/94, respiratory rate 16, percent room air with most recent repeat vital signs T98, heart rate 96, BP 149/90, respiratory rate 18, 97% on room air, CBC with WBC 13.8, hemoglobin 13.7, platelet 327 with left shift, CMP with come back side 19.3, BUN/creatinine 18/1.32, GFR 68, glucose 100, AST/LT 51/66, urinalysis with no obvious overt UTI but pending urine RBC/WBC/squamous epithelial cells/urine bacteria, CT abdomen and pelvis with a 9 mm obstructive stone at the distal left ureter with associated upstream moderate hydroureteronephrosis with multiple urinary bladder stones, mild thickening of the urinary bladder wall reflective of possible cystitis versus partial nondistention with an enlarged prostate with abutment into the urinary bladder wall. In the ED patient ministered Zofran 4 mg IV x 2, morphine 4 mg IV x 1, morphine 6 mg IV x 1, Toradol 30 mg IV x 1. ED discussed case with urology. [facility] Medical History Lives in mcc Arthritis Back pain Non-smoker Shortness of breath on exertion Intellectual disability Recurrent major depression in full remission Hyperlipidemia Essential hypertension Urinary tract infection with hematuria Home Medications ???Medication ???Instructions ???Recorded ???Last Taken ???Type fenofibrate nanocrystallized 145 145 mg PO DAILY 07/08/18 12/18/23 History mg tablet folic acid 400 mcg tablet 0.4 mg PO DAILY@0800 07/08/1812/04 History garlic 200 mg tablet 350 mg PO DAILY 07/08/18 12/18/23 History loratadine 10 mg capsule (Claritin 10 mg PO DAILY 07/08/18 12/18/23 History Liqui-Gel) omega-3 fatty acids-fish oil 340 3 ea PO DAILY 07/08/18 12/15/23 Hi story mg-1,000 mg capsule (Fish Oil) ammonium lactate 12 % topical cream 1 applic topical DAILY 05/29/23 12/18/23 History atorvastatin 40 mg tablet 40 mg PO DAILY 05/29/23 12/18/23 H istory clonidine HCl 0.2 mg tablet 0.2 mg PO BID 05/29/23 12/19/23 06 :30 History doxazosin 2 mg tablet 2 mg PO QHS 05/29/23 12/18/23 Hist ory fluticasone propionate 50 2 spray intranasal DAILY 05/29/23 12/18/23 History mcg/actuation nasal spray,suspension (Allergy Relief (fluticasone)) losartan 100 mg tablet 100 mg PO DAILY 05/29/23 12/19/23 06:30 History multivitamin-ferrous 1 tab PO DAILY 05/29/23 12/18/23 H istory fumarate-folic acid 18 mg-400 mcg tablet (Certavite-Antioxidant) nabumetone 500 mg tablet 500 mg PO BID PRN pain 05/29/23 Un known History quetiapine 150 mg tablet,extended 150 mg PO 1600 05/29/23 12/18/23 History release 24 hr neomycin-bacitracn Zn-polymyx 3.5 1 applic topical TID PRN dry skin 11/05/23 Unknown History mg-400 unit-5,000 unit/gram top oint (Neosporin (hzg-yvn-vmpoy)) oxcarbazepine 600 mg tablet 600 mg PO BID 11/05/23 12/19/23 06 :30 History polyethylene glycol 3350 17 238 g PO ONCE Colonoscopy prep 01/2712/19/23 Rx gram/dose oral powder (Miralax) #238 grams Allergy/AdvReac Type Severity Reaction Status Date / Time risperidone (From Risperdal) Allergy ANXIETY Verified 10/08/24 16:53 Family History (Updated 10/08/24 @ 20:[address] Yamileth Aguirre MD) Mother Hyperlipidemia Father Hyperlipidemia Surgical History Hx of cystoscopy History of testicular surgery History of ankle surgery Social History household members: other details: Lives with oth (more content not included)... Normal [facility] Hematocrit Auto (Bld) [Volum e fraction]Ordered By: Brad Goins on 10-08-2024 Hematocrit (Bld) [Volume fraction] 40.6 % 40-54 [facility] Hemoglobin measurementOrdere d By: Brad Goins on 10-08-2024 Hemoglobin (Bld) [Mass/Vol] 13.7 g/dL 13.0-16.5 [facility] Immature granulocytes/100 WB C Auto (Bld)Ordered By: Brad Goins on 10-08-2024 Immature granulocytes/100 WBC (Bld) 0.700 % 0.0-0.9 [facility] Comment on above: IG% - Immature Granu locytes (promyelocytes, myelocytes and metamyelocytes) > 1% indicates that a LEFT SHIFT is Present. Ketones Test strip Ql (U)Ord ered By: Brad Goins on 10-08-2024 Ketones Ql (U) Negative Negative [facility] Laboratory - Chemistry and C hemistry - challengeOrdered By: Brad Goins on 10-08-2024 AST [Catalytic activity/Vol] 51 U/L High <38 [facility] MCV (mean corpuscular volume ) determinationOrdered By: Brad Goins on 10-08-2024 MCV (RBC) [Entitic vol] 85.8 fL 80-94 [facility] Mean corpuscular hemoglobin (MCH) determinationOrdered By: Brad Goins on 10-08-2024 MCH (RBC) [Entitic mass] 29.0 pg 27.0-32.0 [facility] Mean corpuscular hemoglobin concentration (MCHC) determinationOrdered By: Brad Goins on 10-08-2024 MCHC (RBC) [Mass/Vol] 33.7 g/dL 32-36 [facility] Mean platelet volume determi nationOrdered By: Brad Goins on 10-08-2024 Platelet mean volume (Bld) [Entitic vol] 9.0 fL 6.2-12.0 [facility] Microscopic analysis of urin e for red blood cells (RBC)Ordered By: Brad Goins on 10-08-2024 Microscopic analysis of urine for red blood cells (RBC) > 100 SEEN /hpf 0-5 [facility] Monocyte percentageOrdered B y: Brad oGins on 10-08-2024 Monocytes/100 WBC (Bld) 8.0 % 0-10 [facility] Mucus LM Ql (Urine sed)Order ed By: Brad Goins on 10-08-2024 Mucus Ql (Urine sed) 0 SEEN /hpf [facility] Neutrophil percentageOrdered By: Brad Goins on 10-08-2024 Neutrophils/100 WBC (Bld) 68.7 % 47-70 [facility] Nitrite Test strip Ql (U)Ord ered By: Brad Goins on 10-08-2024 Nitrite Ql (U) Negative Negative [facility] Nucleated red blood cell per centageOrdered By: Brad Goins on 10-08-2024 Nucleated RBC/100 WBC (Bld) [Ratio] 0 % 0-5 [facility] Platelet countOrdered By: Hemanth Goins on 10-08-2024 Platelets (Bld) [#/Vol] 327 10*3/uL 150-450 [facility] Potassium measurement (mass/ volume)Ordered By: Brad Goins on 10-08-2024 Potassium (Unsp spec) [Mass/Vol] 4.0 mmol/L 3.3-5.1 [facility] Protein Test strip Ql (U)Ord ered By: Brad Goins on 10-08-2024 Protein Ql (U) 30 mg/dl High Negative [facility] RBC Auto (Bld) [#/Vol]Ordere d By: Brad Goins on 10-08-2024 RBC (Bld) [#/Vol] 4.73 10*6/uL 4.6-6.2 [facility] Serum creatinine measurement (mass/volume)Ordered By: Brad Goins on 10-08-2024 Creatinine [Mass/Vol] 1.32 mg/dL High 0.70-1.20 [facility] Serum globulin measurementOr dered By: Brad Goins on 10-08-2024 Globulin (S) [Mass/Vol] 2.7 g/dL 2.2-4.2 [facility] Serum glucose measurement (m ass/volume)Ordered By: Brad Goins on 10-08-2024 Glucose [Mass/Vol] 100 mg/dL High 70-99 [facility] Serum or plasma alanine rousseau otransferase (ALT) measurementOrdered By: Brad Goins on 10-08-2024 ALT [Catalytic activity/Vol] 66 U/L High <47 [facility] Serum or plasma albumin ashlee urement (mass/volume)Ordered By: Brad Goins on 10-08-2024 Albumin [Mass/Vol] 4.4 g/dL 3.5-5.0 [facility] Serum or plasma albumin/glob ulin mass ratioOrdered By: Brad Goins on 10-08-2024 Albumin/Globulin [Mass ratio] 1.6 {ratio} 0.9-2.4 [facility] Serum or plasma alkaline monica sphatase measurementOrdered By: Brad Goins on 10-08-2024 ALP [Catalytic activity/Vol] 75 U/L 40-129 [facility] Serum or plasma calcium ashlee urement (mass/volume)Ordered By: Brad Goins on 10-08-2024 Calcium [Mass/Vol] 9.9 mg/dL 7.6-11.0 [facility] Serum or plasma urea nitroge n measurement (mass/volume)Ordered By: Brad Goins on 10-08-2024 Urea nitrogen [Mass/Vol] 18 mg/dL 4-19 [facility] Sodium levelOrdered By: Brad Goins on 10-08-2024 Sodium [Moles/Vol] 135 mmol/L 133-145 [facility] Squamous epithelial cells de tection in urine sediment by light microscopyOrdered By: Brad Goins on 10-08-2024 Epithelial cells.squamous LM Ql (Urine sed) 0 SEEN /hpf 0-5 [facility] Total proteinOrdered By: Marek Goins on 10-08-2024 Protein [Mass/Vol] 7.1 g/dL 5.9-8.4 [facility] UA DIP, URINE (POC)on 2024 BILIRUBIN UA (POCT) Negative Negative [facility] CLARITY [facility] (POCT) [facility] COLOR UA (POCT) Dark yellow [facility] GLUCOSE UA (POCT) Negative Negative mg/dL [facility] Hemoglobin Ql (U) Large Abnormal Negative [facility] Interpretation and review of laboratory results Abnormal [facility] KETONE UA (POCT) Negative Negative mg/dL [facility] LEUKOCYTES UA (POCT) Negative Negative [facility] NITRITE UA (POCT) Negative Negative [facility] PH UA (POCT) 7 4.5 - 8.0 [facility] Protein Ql (U) 30 mg/dL Abnormal Negative [facility] SPECIFIC GRAVITY UA (POCT) 1.02 1.005 - 1.030 [facility] UROBILINOGEN UA (POCT) 1 Lin l E.U./dL [facility] Location:[address], [place], [place], [id number] [place] [address] POINT OF CARE [facility] Urinalysis, Completeon 10-08 BACTERIA 2+ /hpf Normal None Seen [facility] Comment on above: Order Comment: CLEAN CATCH Performed By: #### L 400.0001 ####[facility] [address] [place], [place], [id number] RBC > 100 SEEN Normal 0-5 [facility] Comment on above: Order Comment: CLEAN CATCH Performed By: #### L 400.0001 ####[facility] [address] [place], [place], [id number] EPI,SQUAMOUS 0 SEEN Normal 0-5 [facility] Comment on above: Order Comment: CLEAN CATCH Performed By: #### L 400.0001 ####[facility] [address] [place], [place], [id number] Mucus Ql (Urine sed) 0 SEEN Normal [facility] Comment on above: Order Comment: CLEAN CATCH Performed By: #### L 400.0001 ####[facility] [address] [place], [place], [phone] WBC 0 SEEN Normal 0-5 [facility] Comment on above: Order Comment: CLEAN CATCH Performed By: #### L 400.0001 ####[facility] [address] [place], [place], [id number] Urine clarityOrdered By: Marek Goins on 10-08-2024 Clarity (U) Cloudy Clear [facility] Urine color determinationOrd ered By: Brad Goins on 10-08-2024 Color (U) Yellow Yellow [facility] Urine glucose detectionOrder ed By: Brad Goins on 10-08-2024 Glucose Ql (U) Normal mg/dl Normal [facility] Urine leukocyte esterase det ection by dipstickOrdered By: Brad Goins on 10-08-2024 Leukocyte esterase Test strip Ql (U) 25 /ul High Negative [facility] Urine pHOrdered By: Brad Greer ghjoey on 10-08-2024 pH (U) 7.0 [pH] 5.0 - 8.0 [facility] Urine sediment bacteria coun t by microscopy (number/high power field)Ordered By: Brad Goins on 10-08-2024 Bacteria LM.HPF (Urine sed) [#/Area] 2 /[HPF] None Seen [facility] Urine specific gravity measu rementOrdered By: Brad Goins on 10-08-2024 Specific gravity (U) [Rel density] 1.010 1.002-1.03 0 [facility] Urine urobilinogen measureme ntOrdered By: Brad Goins on 10-08-2024 Urobilinogen Ql (U) Normal mg/dl Normal [facility] White blood cell (WBC) count Ordered By: Brad Goins on 10-08-2024 WBC (Bld) [#/Vol] 13.8 10*3/uL High 4.4-11.0 [facility] White blood cell countOrdere d By: Brad Goins on 10-08-2024 White blood cell count 0 SEEN /hpf 0-[address] [facility] 36on 10-02-2024 36 Reviewed chart. Refi ll appropriate. RX sent. Normal [facility] 36 Pharmacy sent over f ax requesting refills for a 31 day supply with 11 refills OR 93 day supply with 3 refills. I pended a 93 day supply with 1 refill. Next appt: 10/15/2024 Normal [facility] Bacteria Ur Culton Bacteria identified Cx Nom (U) ORGANISM ID: 1 <10,000 CFU/ml Normal urogenital princess Normal [facility] Comment on above: Performed By: #### 6 30-4 #### [facility] CLIA [id number] [address] [place] [address] STATES OF [facility] CNOVon 09-27-2024 CNOV Office Visit (UCWSTR ) CHAN BURCIAGA ([id number]) 1980 M Date Time Provider Department 09/27/24 10:00 AM SEAN VERDUZCO [facility] During your visit today, we recorded the following information about you: Temperature Pulse Blood pressure Weight 97.1 degrees 96/minute 110/66 86.2 kg Sean Verduzco APRN.[employer] 09/27/2024 10:14 AM Signed [facility] Subjective Chan Medrano Gualberto is a 43 year old male. Patient [...] of care. This note was generated using Epic Playground software. It may contain errors in wording, punctuation, or spelling. Sean Verduzco APRN.[employer]GEANT History and Record Review Clinical information obtained from an independent historian. History obtained from or confirmed by: other (see comments) and parent. External record(s) reviewed: prior outpatient record. Disposition The patient was discharged. Procedures Referring Provider: SELF [200] Allergies As of Date: 09/27/2024 Noted Allergy Reaction RISPERIDONE 03/10/2015 1 - Mental Status Change Date Reviewed: 09/27/2024 Reviewed by: Sean Verduzco APRN.[facility] - Fully Assessed Reason for Visit: Hematuria [335] Primary Visit Diagnosis:Acute cystitis with hematuria [N30.01] Order(s):BACTERIAL CULTURE, URINE [SQURCUL] Order #: [id number]. #:[id number] UA DIP, URINE (POC) [2790113] Order #: [id number] UA DIP, URINE (POC) [9382009] Order #: [id number]. #:[id number] -LAB cephALEXin (KEFLEX) 500 mg capsuleTake 1 [...] BY M (more content not included)... Normal [facility] UA DIP, URINE (POC)on 2024 BILIRUBIN UA (POCT) Small Abnormal Negative [facility] CLARITY UA (POCT) Cloudy [facility] COLOR UA (POCT) Red [facility] GLUCOSE UA (POCT) Negative Negative mg/dL [facility] Hemoglobin Ql (U) Large Abnormal Negative [facility] Interpretation and review of laboratory results Abnormal [facility] KETONE UA (POCT) Negative Negative mg/dL [facility] LEUKOCYTES UA (POCT) Negative Negative [facility] NITRITE UA (POCT) Negative Negative [facility] PH UA (POCT) 6.5 4.5 - 8.0 [facility] Protein Ql (U) 100 mg/dL Abnormal Negative [facility] SPECIFIC GRAVITY UA (POCT) 1.02 1.005 - 1.030 [facility] UROBILINOGEN UA (POCT) 1 Lin l E.U./dL [facility] Location:[address], [address] [place] [address] POINT OF CARE [facility] 36on 09-24-2024 36 Medication name: nab umetone [...] medication tab): 07/23/24 Updated/Validated preferred pharmacy: Yes Steve MCBRIDE ([facility]) - [facility] [address] [facility] [address] [address] Patient instructed to contact the pharmacy prior to picking up the medication: Yes [facility] 36on 09-16-2024 36 Notified [place] [address] Yes, he is still see ing Dr. Rosa and yes I will continue to sign for his home care [place] [address] Name of caller: Brad ([facility]) Contact phone number: [phone] Relationship to Patient: na Provider: Dr. Rosa Practice: [facility] Chief Complaint/Reason for Call: Calling to advise Pt will have re-cert for retirement next week. Needs to verify that Pt is still seeing Dr. Rosa and that Dr. Rosa will continue to follow Pt for services. Please advise Best time of day caller can be reached: Any AM Patient advised that office/PCP has 24-48 business hours to return their call: Yes [address] 09-04-2024 36 Rx sent. Follow up a s scheduled. [place] [address] Received fax for ref ill request. Pended. [place] [id number] 36 Prescription Request : Last medication check: 10/24/2023 Last physical exam: 04/20/2024 Next scheduled appointment: 10/15/2024 CSA on file (date): N/A Last urine drug screen: N/A Last date of refill on this medication 05/01/[address] 08-10-2024 [address] 07-23-2024 36 Medication name: nab umetone [...] prior to picking up the medication: Yes [place] [id number] 36 Notified Brad. [facility] 36 Okay to continue, ye s we will sign and follow [facility] 36 Name of caller: Brad Contact phone number: [phone] Relationship to Patient: [facility] Provider: Dr. Rosa Practice: [facility] Chief Complaint/Reason for Call: Brad called and stated Chan is doing fine and is asking to re certify patient for retirement to be continued and is asking to have a call back by 07/17/24. Brad is asking to follow and sign the plan of care. Please advise. Best time of day caller can be reached: any Patient advised that office/PCP has 24-48 business hours to return their call: Yes [address] 07-14-2024 36 Medication name: doxazosin (Cardura) [...] prior to picking up the medication: Yes [facility] Trileptal-Oxcarbazepineon OXCARBAZEPINE 31 ug/mL Normal 10-35 [facility] Comment on above: Result Comment: This test was developed and its performance characteristics determined by [employer]. It has not been cleared or approved by the Food and Drug Administration. Detection Limit = 1 Performed at: [address] [id number] Graduate Teaching Assistant: Andra Sawant MD, Phone: [phone] Performed By: #### L 500.4510, L3800.1700, L100.0500 ####[facility] [address] [place], [address] Albumin to globulin ratioOrd ered By: Dajuan Prince on 06-26-2024 Albumin/Globulin [Mass ratio] 1.2 {ratio} 0.9-2.4 [facility] Bilirubin, totalOrdered By: Dajaun Prince on 06-26-2024 Bilirubin [Mass/Vol] 0.50 mg/dL 0.20-1.00 [facility] Comment on above: For patients on eltr ombopag therapy, use of Dimension Graham TBIL is not recommended. Blood urea nitrogen (BUN)/cr eatinine ratioOrdered By: Dajuanlalitha Morrison on 06-26-2024 Urea nitrogen/Creatinine [Mass ratio] 15.7 mg/mg 10-20 [facility] CBC-Complete Blood Cnt No Di ffon 06-26-2024 Erythrocyte distribution width (RBC) [Ratio] 13.3 % Normal 11.6-14.6 [facility] Comment on above: Performed By: #### L 500.4050, L3800.1700, L100.0500 ####[facility] [address] [place], [address] Hematocrit (Bld) [Volume fraction] 42.3 % Normal 40-54 [facility] Comment on above: Performed By: #### L 500.4050, L3800.1700, L100.0500 ####[facility] [address] [place], [address] Hemoglobin (Bld) [Mass/Vol] 14.0 g/dL Normal 13.0-16.5 [facility] Comment on above: Performed By: #### L 500.4050, L3800.1700, L100.0500 ####[facility] [address] [place], [address] MCH (RBC) [Entitic mass] 28.6 pg Normal 27.0-32.0 [facility] Comment on above: Performed By: #### L 500.4050, L3800.1700, L100.0500 ####[facility] [address] [place], [address] MCHC (RBC) [Mass/Vol] 33.1 g/dL Normal 32-36 [facility] Comment on above: Performed By: #### L 500.4050, L3800.1700, L100.0500 ####[facility] [address] [place], [address] MCV (RBC) [Entitic vol] 86.5 fL Normal 80-94 [facility] Comment on above: Performed By: #### L 500.4050, L3800.1700, L100.0500 ####[facility] [address] [place], [address] Platelet mean volume (Bld) [Entitic vol] 9.3 fL Normal 6.2-12.0 [facility] Comment on above: Performed By: #### L 500.4050, L3800.1700, L100.0500 ####[facility] [address] [place], [address] Platelets (Bld) [#/Vol] 324 10*3/uL Normal 150-450 [facility] Comment on above: Performed By: #### L 500.4050, L3800.1700, L100.0500 ####[facility] [address] [place], [address] RBC (Bld) [#/Vol] 4.89 10*6/uL Normal 4.6-6.2 [facility] Comment on above: Performed By: #### L 500.4050, L3800.1700, L100.0500 ####[facility] [address] [place], [address] RDW SD 42.1 fl Normal 35.1-43.9 [facility] Comment on above: Performed By: #### L 500.4050, L3800.1700, L100.0500 ####[facility] [address] [place], [address] WBC (Bld) [#/Vol] 9.2 10*3/uL Normal 4.4-11.0 [facility] Comment on above: Performed By: #### L 500.4050, L3800.1700, L100.0500 ####[facility] [address] [place], [address] Carbon dioxide measurementOr dered By: Dajuan Morrison on 06-26-2024 CO2 [Moles/Vol] 23.0 mmol/L 21.0-32.0 [facility] Chloride measurementOrdered By: Dajuan Morrison on 06-26-2024 Chloride [Moles/Vol] 107 mmol/L 98-107 [facility] Comprehensive Metabolic Prof ilon 06-26-2024 Albumin [Mass/Vol] 3.7 g/dL Normal 3.2-5.0 [facility] Comment on above: Performed By: #### L 500.4050, L3800.1700, L100.0500 ####[facility] [address] [place], [address] Albumin/Globulin [Mass ratio] 1.2 {ratio} Normal 0.9-2.4 [facility] Comment on above: Performed By: #### L 500.4050, L3800.1700, L100.0500 ####[facility] [address] [place], [address] ALK P 63 U/L Normal 45-117 [facility] Comment on above: Performed By: #### L 500.4050, L3800.1700, L100.0500 ####[facility] [address] [place], [address] ALT [Catalytic activity/Vol] 99 U/L High 16-61 [facility] Comment on above: Performed By: #### L 500.4050, L3800.1700, L100.0500 ####[facility] [address] [place], [address] AST [Catalytic activity/Vol] 41 U/L High 15-37 [facility] Comment on above: Performed By: #### L 500.4050, L3800.1700, L100.0500 ####[facility] [address] [place], [address] Bilirubin [Mass/Vol] 0.50 mg/dL Normal 0.20-1.00 [facility] Comment on above: Result Comment: For patients on eltrombopag therapy, use of Dimension Graham TBIL is not recommended. Performed By: #### L 500.4050, L3800.1700, L100.0500 ####[facility] [address] [place], [address] BUN/CRE 15.7 RATIO Normal 10-20 [facility] Comment on above: Performed By: #### L 500.4050, L3800.1700, L100.0500 ####[facility] [address] [place], [address] CA,Total 9.4 mg/dL Normal 8.5-10.1 [facility] Comment on above: Performed By: #### L 500.4050, L3800.1700, L100.0500 ####[facility] [address] [place], [address] Chloride [Moles/Vol] 107 mmol/L Normal 98-107 [facility] Comment on above: Performed By: #### L 500.4050, L3800.1700, L100.0500 ####[facility] [address] [place], [address] CO2 [Moles/Vol] 23.0 mmol/L Normal 21.0-32.0 [facility] Comment on above: Performed By: #### L 500.4050, L3800.1700, L100.0500 ####[facility] [address] [place], [address] Creatinine [Mass/Vol] 1.08 mg/dL Normal 0.70-1.30 [facility] Comment on above: Result Comment: The validity of the calculated GFR GFRAA in patients over 70 years has not been determined. Clinical correlation is essential. Performed By: #### L 500.4050, L3800.1700, L100.0500 ####[facility] [address] [place], [address] EST GFR - AA 95 mL/min Normal >60 [facility] Comment on above: Result Comment: Afri can Japanese GFR Calc Performed By: #### L 500.4050, L3800.1700, L100.0500 ####[facility] [address] [place], [address] GAP 8 Normal 5-15 [facility] Comment on above: Performed By: #### L 500.4050, L3800.1700, L100.0500 ####[facility] [address] [place], [address] GFR/1.73 sq M.predicted among non-blacks MDRD (S/P/Bld) [Vol rate/Area] 78 mL/min/{1.73_m2} Normal >60 [facility] Comment on above: Result Comment: Non- GFR Calc Performed By: #### L 500.4050, L3800.1700, L100.0500 ####[facility] [address] [place], [address] Globulin (S) [Mass/Vol] 3.2 g/dL Normal 2.2-4.2 [facility] Comment on above: Performed By: #### L 500.4050, L3800.1700, L100.0500 ####[facility] [address] [place], [address] Glucose [Mass/Vol] 107 mg/dL High 74-106 [facility] Comment on above: Result Comment: Fast ing Glucose result from 100 to 125 mg/dL suggests IMPAIRED HOMEOSTASIS per A.D.A. criteria. Performed By: #### L 500.4050, L3800.1700, L100.0500 ####[facility] [address] [place], [address] Potassium [Moles/Vol] 3.8 mmol/L Normal 3.5-5.1 [facility] Comment on above: Performed By: #### L 500.4050, L3800.1700, L100.0500 ####[facility] [address] [place], [address] Sodium [Moles/Vol] 138 mmol/L Normal 136-145 [facility] Comment on above: Performed By: #### L 500.4050, L3800.1700, L100.0500 ####[facility] [address] [place], [address] T PROT 6.9 g/dL Normal 6.4-8.2 [facility] Comment on above: Performed By: #### L 500.4050, L3800.1700, L100.0500 ####[facility] [address] [place], [address] Urea nitrogen [Mass/Vol] 17 mg/dL Normal 7-18 [facility] Comment on above: Performed By: #### L 500.4050, L3800.1700, L100.0500 ####[facility] [address] [place], [address] Erythrocyte distribution wid th ratioOrdered By: Dajuan Morrison on 06-26-2024 Erythrocyte distribution width (RBC) [Ratio] 13.3 % 11.6-14.6 [facility] Erythrocyte distribution wid th standard deviationOrdered By: Dajuan Morrison on 06-26-2024 Erythrocyte distribution width (RBC) [Entitic vol] 42.1 fL 35.1-43.9 [facility] Erythrocyte distribution width (RBC) [Ratio] 42.1 fl 35.1-43.9 [facility] Estimated glomerular filtrat ion rate (GFR) AmericanOrdered By: Dajuan Morrison on 06-26-2024 Estimated GFR (MDRD) Amer 95 mL/min >60 [facility] Comment on above: GFR Calc Glomerular filtration rate ( GFR) estimationOrdered By: Dajuan Morrison on 06-26-2024 Estimated GFR (MDRD) Non-Af Amer 78 mL/min >60 [facility] Comment on above: Non- GFR Calc GFR/1.73 sq M.predicted among non-blacks MDRD (S/P/Bld) [Vol rate/Area] 78 mL/min/{1.73_m2} >60 [facility] Comment on above: Non- GFR Calc Glucose measurementOrdered B y: Dajuan Morrison on 06-26-2024 Glucose [Mass/Vol] 107 mg/dL High 74-106 [facility] Comment on above: Fasting Glucose resu lt from 100 to 125 mg/dL suggests IMPAIRED HOMEOSTASIS per A.D.A. criteria. Hematocrit Auto (Bld) [Volum e fraction]Ordered By: Dajuan Morrison on 06-26-2024 Hematocrit (Bld) [Volume fraction] 42.3 % 40-54 [facility] Hemoglobin measurementOrdere d By: Dajuan Morrison on 06-26-2024 Hemoglobin (Bld) [Mass/Vol] 14.0 g/dL 13.0-16.5 [facility] Laboratory - Chemistry and C hemistry - challengeOrdered By: Dajuan Morrison on 06-26-2024 AST [Catalytic activity/Vol] 41 U/L High 15-37 [facility] MCV (mean corpuscular volume ) determinationOrdered By: Dajuan Morrison on 06-26-2024 MCV (RBC) [Entitic vol] 86.5 fL 80-94 [facility] Mean corpuscular hemoglobin (MCH) determinationOrdered By: Dajuan Morrison on 06-26-2024 MCH (RBC) [Entitic mass] 28.6 pg 27.0-32.0 [facility] Mean corpuscular hemoglobin concentration (MCHC) determinationOrdered By: Dajuan Morrison on 06-26-2024 MCHC (RBC) [Mass/Vol] 33.1 g/dL 32-36 [facility] Mean platelet volume determi nationOrdered By: Dajuan Morriosn on 06-26-2024 Platelet mean volume (Bld) [Entitic vol] 9.3 fL 6.2-12.0 [facility] OXcarbazepine [Mass/Vol]Orde red By: Dajuan Morrison on 06-26-2024 Oxcarbazepine Level 31 ug/mL 10-35 [facility] Comment on above: This test was develo ped and its performance characteristicsdetermined by [facility]. It has not been cleared orapproved by the Food and Drug Administration. Detection Limit = 1Performed at: [facility] [employer] [id number] Director: Andra Sawant MD, Phone: [phone] Platelet countOrdered By: aMry Morrison on 06-26-2024 Platelets (Bld) [#/Vol] 324 10*3/uL 150-450 [facility] Potassium measurementOrdered By: Dajuan Morrison on 06-26-2024 Potassium [Moles/Vol] 3.8 mmol/L 3.5-5.1 [facility] RBC Auto (Bld) [#/Vol]Ordere d By: Dajuan Morrison on 06-26-2024 RBC (Bld) [#/Vol] 4.89 10*6/uL 4.6-6.2 [facility] Serum anion gap measurementO rdered By: Dajuan Morrison on 06-26-2024 Anion gap [Moles/Vol] 8 mmol/L 5-15 [facility] Serum globulin measurementOr dered By: Dajuan Morrison on 06-26-2024 Globulin (S) [Mass/Vol] 3.2 g/dL 2.2-4.2 [facility] Serum or plasma alanine rousseau otransferase (ALT) measurementOrdered By: Dajuan Morrison on 06-26-2024 ALT [Catalytic activity/Vol] 99 U/L High 16-61 [facility] Serum or plasma albumin ashlee urement (mass/volume)Ordered By: Dajuan Morrison on 06-26-2024 Albumin [Mass/Vol] 3.7 g/dL 3.2-5.0 [facility] Serum or plasma alkaline monica sphatase measurementOrdered By: Dajuan Morrison on 06-26-2024 ALP [Catalytic activity/Vol] 63 U/L 45-117 [facility] Serum or plasma calcium ashlee urement (mass/volume)Ordered By: Dajuan Morrison on 06-26-2024 Calcium [Mass/Vol] 9.4 mg/dL 8.5-10.1 [facility] Serum or plasma creatinine m easurement (mass/volume)Ordered By: Dajuan Morrison on 06-26-2024 Creatinine [Mass/Vol] 1.08 mg/dL 0.70-1.30 [facility] Comment on above: The validity of the calculated GFR & GFRAA in patients over 70 years has not been determined. Clinical correlation is essential. Serum or plasma oxcarbazepin e measurement (mass/volume)Ordered By: Dajuan Morrison on 06-26-2024 OXcarbazepine [Mass/Vol] 31 ug/mL 10-35 [facility] Comment on above: This test was develo ped and its performance characteristicsdetermined by [facility] [employer]. It has not been cleared orapproved by the Food and Drug Administration. Detection Limit = 1Performed at: [facility] [employer] [address] [id number] Director: Andra Sawant MD, Phone: [phone] Serum or plasma urea nitroge n measurement (mass/volume)Ordered By: Dajuan Morrison on 06-26-2024 Urea nitrogen [Mass/Vol] 17 mg/dL 7-18 [facility] Sodium levelOrdered By: Cricket Morrison on 06-26-2024 Sodium [Moles/Vol] 138 mmol/L 136-145 [facility] Total proteinOrdered By: Juvenal Morrison on 06-26-2024 Protein [Mass/Vol] 6.9 g/dL 6.4-8.2 [facility] White blood cell (WBC) count Ordered By: Dajuan Morrison on 06-26-2024 WBC (Bld) [#/Vol] 9.2 10*3/uL 4.4-11.0 [facility] 36on 06-23-2024 36 Prescription Request : Last medication check: 10/24/2023 Last physical exam: 04/20/2024 Next scheduled appointment: 10/20/2024 Last date of refill on this medication: 06/04/23 [facility] 36on 05-04-2024 36 Reviewed chart. Refi ll appropriate. RX sent. Normal [facility] 36 [place] pharmacy requesting refill for Folic Acid 400mcg for 9 days w/1 refill. Prescription Request: Last medication check: 10/24/2023 Last physical exam: 04/20/2024 Next scheduled appointment: 10/20/2024 Last date of refill on this medication: 12/03/2023 [facility] 36on 05-01-2024 36 Reviewed chart. Refi ll appropriate. RX sent. Normal [facility] 36 Prescription Request : Last medication check: 10/24/23 Last physical exam: 04/20/24 Next scheduled appointment: 10/20/24 Last date of refill on this medication 12/03/23 90 day 1 refill Normal [facility] Office Visiton 04-20-2024 Follow-up visit [id number] Cb Burciaga 1980 M Date Provider Department Center 04/20/2024 [id number] ROSA [facility] Family History Family Status - Relation Status Age at Mother Father Alive Level of Service:23275 AL PERIODIC PREVENTIVE MED EST PATIENT 40-64YRS Reason for Visit and Comments: Annual Exam [83] Blood Work [408588] Health Maintenance [872] - 4th covid vaccine- not done Normal [facility] Progress Noteon 04-20-2024 Progress Note Stable, continue Foster nase and Claritin. 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 Ramiro Rosa MD 04/20/2024 12:50 PM [facility] Progress Note Patient verified by last name and date of . [facility] 36on 04-17-2024 36 lm to pre-visit plan for appointment with dr Rosa on 04/20/24 11am. Please ask patient to arrive 15 minutes early with Photo ID, insurance card Fasting: yes Put call through to office for pvp [facility] 36on 04-06-2024 36 Reviewed chart. Refi ll appropriate. RX sent. [place] [id number] Prescription Request : Last medication check: 10/24/2023 Last physical exam: 04/18/2023 Next scheduled appointment: 04/20/2024 Last date of refill on this medication: 11/12/2023 [place] [address]on 03-20-2024 36 Notified on angela luo. Normal [facility] 36 Will follow patient. Thank you. Normal [facility] 36 Name of caller: Brad Contact phone number: [phone] Relationship to Patient: [facility] Provider: Dr. Rosa Practice: [facility] Chief [...] business hours to return their call: Yes Normal [facility] CBC W/Diff, Automatedon 10- Absolute Lymph 1.76 X10 3/uL Normal 0.83-4.51 [facility] Comment on above: Performed By: #### L 100.0100, L500.4050 #### [facility] [address] [place], [address] Absolute Neut 9.0 X10 3/uL High 2.0-7.7 [facility] Comment on above: Performed By: #### L 100.0100, L500.4050 #### [facility] [address] [place], [address] Basophils/100 WBC (Bld) 0.5 % Normal 0-1 [facility] Comment on above: Performed By: #### L 100.0100, L500.4050 #### [facility] [address] [place], [address] Eosinophils/100 WBC (Bld) 4.6 % Normal 0-5 [facility] Comment on above: Performed By: #### L 100.0100, L500.4050 #### [facility] [address] [place], [address] Erythrocyte distribution width (RBC) [Ratio] 13.4 % Normal 11.6-14.6 [facility] Comment on above: Performed By: #### L 100.0100, L500.4050 #### [facility] [address] [place], [address] Hematocrit (Bld) [Volume fraction] 42.4 % Normal 40-54 [facility] Comment on above: Performed By: #### L 100.0100, L500.4050 #### [facility] [address] [place], [address] Hemoglobin (Bld) [Mass/Vol] 14.0 g/dL Normal 13.0-16.5 [facility] Comment on above: Performed By: #### L 100.0100, L500.4050 #### [facility] [address] [place], [address] IG% 0.600 Normal 0.0-0.9 [facility] Comment on above: Result Comment: IG% - Immature Granulocytes (promyelocytes, myelocytes and metamyelocytes) > 1% indicates that a LEFT SHIFT is Present. Performed By: #### L 100.0100, L500.4050 #### [facility] [address] [place], [address] Lymphocytes/100 WBC (Bld) 14.8 % Low 19-41 [facility] Comment on above: Performed By: #### L 100.0100, L500.4050 #### [facility] [address] [place], [address] MCH (RBC) [Entitic mass] 29.1 pg Normal 27.0-32.0 [facility] Comment on above: Performed By: #### L 100.0100, L500.4050 #### [facility] [address] [place], [address] MCHC (RBC) [Mass/Vol] 33.0 g/dL Normal 32-36 [facility] Comment on above: Performed By: #### L 100.0100, L500.4050 #### [facility] [address] [place], [address] MCV (RBC) [Entitic vol] 88.1 fL Normal 80-94 [facility] Comment on above: Performed By: #### L 100.0100, L500.4050 #### [facility] [address] [place], [address] Monocytes/100 WBC (Bld) 3.4 % Normal 0-10 [facility] Comment on above: Performed By: #### L 100.0100, L500.4050 #### [facility] [address] [place], [address] Neutrophils/100 WBC (Bld) 76.1 % High 47-70 [facility] Comment on above: Performed By: #### L 100.0100, L500.4050 #### [facility] [address] [place], [address] Nucleated RBC (Bld) [#/Vol] 0 10*3/uL Normal 0-5 [facility] Comment on above: Performed By: #### L 100.0100, L500.4050 #### [facility] [address] [place], [address] Platelet mean volume (Bld) [Entitic vol] 9.2 fL Normal 6.2-12.0 [facility] Comment on above: Performed By: #### L 100.0100, L500.4050 #### [facility] [address] [place], [address] Platelets (Bld) [#/Vol] 344 10*3/uL Normal 150-450 [facility] Comment on above: Performed By: #### L 100.0100, L500.4050 #### [facility] [address] [place], [address] RBC (Bld) [#/Vol] 4.81 10*6/uL Normal 4.6-6.2 [facility] Comment on above: Performed By: #### L 100.0100, L500.4050 #### [facility] [address] [place], [address] RDW SD 43.2 fl Normal 35.1-43.9 [facility] Comment on above: Performed By: #### L 100.0100, L500.4050 #### [facility] [address] [place], [address] WBC (Bld) [#/Vol] 11.9 10*3/uL High 4.4-11.0 [facility] Comment on above: Performed By: #### L 100.0100, L500.4050 #### [facility] [address] [place], [address] Comprehensive Metabolic Prof il 02-14-2024 Albumin [Mass/Vol] 3.9 g/dL Normal 3.2-5.0 [facility] Comment on above: Performed By: #### L 100.0100, L500.4050 #### [facility] [address] [place], [address] Albumin/Globulin [Mass ratio] 1.4 {ratio} Normal 0.9-2.4 [facility] Comment on above: Performed By: #### L 100.0100, L500.4050 #### [facility] [address] [place], [address] ALK P 71 U/L Normal 45-117 [facility] Comment on above: Performed By: #### L 100.0100, L500.4050 #### [facility] [address] [place], [address] ALT [Catalytic activity/Vol] 121 U/L High 16-61 [facility] Comment on above: Performed By: #### L 100.0100, L500.4050 #### [facility] [address] [place], [address] AST [Catalytic activity/Vol] 53 U/L High 15-37 [facility] Comment on above: Performed By: #### L 100.0100, L500.4050 #### [facility] [address] [place], [address] Bilirubin [Mass/Vol] 0.50 mg/dL Normal 0.20-1.00 [facility] Comment on above: Result Comment: For patients on eltrombopag therapy, use of Dimension Graham TBIL is not recommended. Performed By: #### L 100.0100, L500.4050 #### [facility] [address] [place], [address] BUN/CRE 13.8 RATIO Normal 10-20 [facility] Comment on above: Performed By: #### L 100.0100, L500.4050 #### [facility] [address] [place], [address] CA,Total 10.0 mg/dL Normal 8.5-10.1 [facility] Comment on above: Performed By: #### L 100.0100, L500.4050 #### [facility] [address] [place], [address] Chloride [Moles/Vol] 103 mmol/L Normal 98-107 [facility] Comment on above: Performed By: #### L 100.0100, L500.4050 #### [facility] [address] [place], [address] CO2 [Moles/Vol] 25.0 mmol/L Normal 21.0-32.0 [facility] Comment on above: Performed By: #### L 100.0100, L500.4050 #### [facility] [address] [place], [address] Creatinine [Mass/Vol] 1.30 mg/dL Normal 0.70-1.30 [facility] Comment on above: Result Comment: The validity of the calculated GFR GFRAA in patients over 70 years has not been determined. Clinical correlation is essential. Performed By: #### L 100.0100, L500.4050 #### [facility] [address] [place], [address] EST GFR - AA 77 mL/min Normal >60 [facility] Comment on above: Result Comment: Afri can Japanese GFR Calc Performed By: #### L 100.0100, L500.4050 #### [facility] [address] [place], [address] GAP 8 Normal 5-15 [facility] Comment on above: Performed By: #### L 100.0100, L500.4050 #### [facility] [address] [place], [address] GFR/1.73 sq M.predicted among non-blacks MDRD (S/P/Bld) [Vol rate/Area] 63 mL/min/{1.73_m2} Normal >60 [facility] Comment on above: Result Comment: Non- GFR Calc Performed By: #### L 100.0100, L500.4050 #### [facility] [address] [place], [address] Globulin (S) [Mass/Vol] 2.7 g/dL Normal 2.2-4.2 [facility] Comment on above: Performed By: #### L 100.0100, L500.4050 #### [facility] [address] [place], [address] Glucose [Mass/Vol] 164 mg/dL High 74-106 [facility] Comment on above: Result Comment: Fast ing Glucose result greater than or equal to 126 mg/dL suggests DIABETES MELLITUS per A.D.A. criteria. Performed By: #### L 100.0100, L500.4050 #### [facility] [address] [place], [address] Potassium [Moles/Vol] 3.9 mmol/L Normal 3.5-5.1 [facility] Comment on above: Performed By: #### L 100.0100, L500.4050 #### [facility] [address] [place], [address] Sodium [Moles/Vol] 136 mmol/L Normal 136-145 [facility] Comment on above: Performed By: #### L 100.0100, L500.4050 #### [facility] [address] [place], [address] T PROT 6.6 g/dL Normal 6.4-8.2 [facility] Comment on above: Performed By: #### L 100.0100, L500.4050 #### [facility] [address] [place], [address] Urea nitrogen [Mass/Vol] 18 mg/dL Normal 7-18 [facility] Comment on above: Performed By: #### L 100.0100, L500.4050 #### [facility] [address] [place], [address] 36on 02-03-2024 36 Pharmacy requesting refill. Prescription Request: Last medication check: 10/24/2023 Last physical exam: 04/18/2023 Next scheduled appointment: 04/20/2024 Last date of refill on this medication: 03/29/2023 [facility] 36on 01-24-2024 36 Yes, thank you [facility] 36 Name of caller: Brad Contact phone number: [phone] Relationship to Patient: [facility] Provider: Dr Rosa Practice: [facility] Chief Complaint/Reason for Call: Caller stated that there are no changes with patient. Caller is asking if Dr Rosa will continue to follow patient for nursing and plan of care. Best time of day caller can be reached: any Patient advised that office/PCP has 24-48 business hours to return their call: No [facility] 36on 01-17-2024 36 Message released to patient as written. YANNICK Deal CNP 01/16/2024 9:02 PM EDT Home sleep study demonstrates no sleep related disorder- no sleep apnea detected. Patient's further questions if applicable: Iesha, patient's caregiver voiced understanding, no further questions or concerns at this time. Were all questions from office addressed or relayed to the patient from encounter: Yes [facility] Home sleep teston 01-16-2024 [facility] 36on 12-19-2023 36 Prescription Request : Last medication check: 10/24/23 Last physical exam: 04/18/23 Next scheduled appointment: 04/20/24 Last date of refill on this medication 06/07/23 [facility] CD3 (initial)on 12-19-2023 CD3 (initial) ------- Patient Age/Sex Location Account Attending Physician CHAN BURCIAGA/Andrez EN [id number] Michael Laguerre DO Specimen: [id number] Received: 12/20/23-1113 Status: HUSSEIN Pressley Num: [id number] Spec Type: IMMUNO Subm Dr: Michael Laguerre, PHYSICIAN INSTITUTION [place] [id number] SPECIMEN INFORMATION: Tissue Source: Terminal ileum biopsy Clinical Info: Encounter for screening for malignant neoplasm of colon Specimen Number: [id number] CPT code: 50539,01909s7 METHODOLOGY: Deparaffinized sections of prefer/formalin-fixed tissue or [...] developed and their performance characteristics determined by [facility]. They may not have been cleared or approved by the U.S. Food and Drug Administration. The FDA has determined that such clearance or approval is not necessary. The above immunohistochemical/dualISH markers are ordered and reviewed by the Pathologist. INTERPRETATION: Terminal ileum, biopsy: Polytypic lymphoid aggregates. AM/mr 12/23/2023 Signed (signature on file) Dr. Huy Pollock, 12/23/23 1536 Normal [facility] Comment on above: Performed By: #### P CD3 #### [facility] [address] [place] [address], [address] Colonoscopy Reporton 024 Colonoscopy Report [facility] Medical Records Department [address] [place] [address] Colonoscopy Report MR#: [id number] Acct: [id number] Name: CHAN BURCIAGA Rep #: [id number] : 1980 43 From: Michael Laguerre DO PCP: Dr. Ramiro Rosa MD Status:[facility] Patient Name: Chan Burciaga Procedure Date: 12/19/2023 [...] pathology results. Procedure Code(s): --- Professional --- 28276, Colonoscopy, flexible; with biopsy, single or multiple CPT copyright 2021 [employer]. All rights reserved. The codes documented in this report are preliminary and upon informix developer review may be revised to meet current compliance requirements. Michael Laguerre DO 12/19/2023 10:32:20 AM This report has been signed electronically. Number of Addenda: 0 Note Initiated On: 12/19/2023 10:03 AM 12/19/23 1032 Date Michael Laguerre DO Cosigner Signature: Date (if indicated) CC: Dr. Ramiro Rosa MD; Michael Laguerre DO Date Dictated: 12/19/23 1003 Date Transcribed: Mold Puller: DARRELL Signed [facility] MR/POSTOP.Brian 12-19-2023 MR/POSTOP.[facility] Medical Records Department [address] [place] [address] Anesthesia Postop Eval I 12/19/23 1036 MR#: [id number] Acct: [id number] Name: CHAN BURCIAGA Rep #: [id number] : 1980 43 From: Esvin Awan PCP: Dr. Ramiro Rosa MD [place] [facility] [place] C Location: [place] [address] Anesthesia: Postop Eval I Current Vital Signs [...] Date Esvin Regalado Signature: Date CC: Signed Normal [facility] MR/[id number] 12-19-2023 [facility] Medical Records Department [address] [place] [address] Anesthesia Postop Eval II 12/19/23 1051 MR#: [id number] Acct: [id number] Name: CHAN BURCIAGA Rep #: [id number] : 1980 43 From: Harman Conrad MD PCP: Dr. Ramiro Rosa MD [place] [facility] [place] [place] Race: C Location: [place] [address] Anesthesia Postop Eval I Sum Postop Eval [...] No Vomiting: No 12/19/23 1051 Date Harman Pegueroer Signature: Date CC: Signed Normal [facility] Surgery Specimen Level Zhou 12-19-2023 Surgery Specimen Level IV Patient Age/Sex Location Account Attending Physician CHAN BURCIAGA 43/M EN [id number] Michael Laguerre DO Specimen: [id number] Received: 12/19/23 Status: HUSSEIN Pressley Num: [id number] Spec Type: COLON BX Subm Dr: Michael Laguerre DO HEADER OPERATION: Colonoscopy with biopsy PRE-OP DIAGNOSIS: Encounter for screening for malignant neoplasm of colon TISSUE SUBMITTED: Terminal ileum biopsy MICROSCOPIC DIAGNOSIS Terminal ileum, biopsy: Focal acute ileitis with associated mucosal denudation. Polytypic lymphoid aggregates. See comment. AM.mr 12/20/2023 COMMENT A mucosal ulcer is suspected. Eosinophils are mildly increased in the lambda propria. The significance is unclear. Benign lymphoid aggregates are also present. Immunohistochemistry ([id number]) supports the above diagnosis and reveals polytypic [...] submitted in one cassette. BARNEY. 12/19/2023 TC:2 CPT:97731 Patient Age/Sex Location Account Attending Physician CHAN BURCIAGA 43/M EN [id number] Michael Laguerre DO Signed (signature on file) Dr. Huy Pollock, 12/23/23 1218 Normal [facility] Comment on above: Performed By: #### P MARIS ####[facility] [id number] [place], [address] 36on 12-03-2023 36 Reviewed chart. Refi ll appropriate. RX sent. [place] [employer] [facility] 36 Prescription Request : Last medication check: 10/24/23 Last physical exam: 04/18/23 Next scheduled appointment: 01/09/24 Last date of refill on this medication 06/26/23 [facility] 36on 11-21-2023 36 Notified on angela luo. [facility] 36 Yes, recertification would be appropriate [facility] 36 Name of caller: Brad Contact phone number: [phone] Relationship to Patient: [facility] Provider: Dr. Rosa Practice: [facility] Chief Complaint/Reason for Call: Brad is requesting confirmation, of medical recertification for retirement. Please advise. Best time of day caller can be reached: any Patient advised that office/PCP has 24-48 business hours to return their call: Yes [facility] 36on 11-12-2023 36 Prescription Request : Last medication check: 10/24/23 Last physical exam: 04/18/23 Next scheduled appointment: 04/20/24 Last date of refill on this medication 06/04/23 [facility] Office Visiton 10-24-2023 Follow-up visit [id number] Cb Burciaga 1980 M Date Provider Department Center 10/24/2023 02381-PVXNYORAMIRO ROSA [facility] Family History Family Status - Relation Status Age at Mother Father Alive Level of Service:34421 AL OFFICE/OUTPATIENT ESTABLISHED MOD MDM 30 MIN Reason for Visit and Comments: Hypertension [772460] Hyperlipidemia [182] Depression [32] Medication Check [9514121237] - 6 month Health Maintenance [872] - Hiv/hep c screening- refuse Hep b vaccine- advised to go to pharmacy if wanting this Tdap vaccine-advised to go to pharmacy if wanting this Colonoscopy- agree [facility] Progress Noteon 10-24-2023 Progress Note Stable, continue Cla ritin and Flonase. Normal [facility] Progress Note Remission, continue Seroquel 150 mg nightly Normal [facility] Progress Note Controlled, continue atorvastatin 40 mg daily and fenofibrate 100 mg daily [facility] Progress Note Controlled, continue doxazosin 2 mg, clonidine 0.2 mg twice a day and losartan 100 mg daily [facility] Progress Note Order home sleep study. Normal [facility] Progress Note Witnessed apneic epi sodes, will schedule patient for home sleep study. Normal [facility] Progress Note 10/24/2023 Chan Burciaga (: 1980) [...] 6 months (around 04/24/2024) for annual. SUBJECTIVE/OBJECTIVE: HPI -Chan comes in today for 6-month follow-up on his multiple health issues which include hypertension which is well-controlled today, hyperlipidemia, depression which is in full remission seasonal allergies and his hammerer helper that is with him said they were [...] note. Ramiro Rosa MD 10/24/2023 11:50 AM [facility] Progress Note Patient verified by last name and date of . [facility] 36on 10-23-2023 36 Left a message to re turn call to [facility] for appointment with Dr. Rosa on 10/24/23. If the patient calls back during business hours, please transfer to our backline. Otherwise, Please arrive 15 minutes early with your insurance card and photo ID. Thank you! [facility] Culture, urineOrdered By: St heri Miles on 05-29-2023 Bacteria identified Cx Nom (U) [place] odontolyticus [facility] Laboratory - Chemistry and C hemistry - challengeon 05-29-2023 Bilirubin Ql (U) Small (1+) [facility] Glucose Ql (U) Negative [facility] Ketones Ql (U) Negative [facility] pH (U) 7.5 [pH] [facility] Specific gravity (U) [Rel density] 1.010 [facility] Urobilinogen (U) [Mass/Vol] 0.0392784 mg/dL [facility] Laboratory - Hematology and Cell countson 05-29-2023 Hemoglobin Ql (U) Hemolyzed [facility] Laboratory - Specimen inform ationon 05-29-2023 Clarity (U) Slightly Hazy [facility] Color (U) Dk Yellow [facility] Laboratory - Urinalysison Nitrite Ql (U) Negative [facility] Protein Ql (U) Trace [facility] No Panel Informationon 05-29 Urine Leukocytes Positive [facility] Urine Non-Hemolyzed Blood Large [facility] XR Lumbar spine 4 Viewson Mild to moderate mul tilevel degenerative changes. Probable bilateral renal calculi measuring up to 1 cm. Further evaluation with renal ultrasound is recommended. Report Dictated on Electronically Signed By: Isidro Lara Electronically Signed Date/Time: 08/27/2022 4:16 PM EDT [employer] [facility]LL [facility] 1980 [id number] Exam Date/Time: 08/27/2022 10:41 Procedure: XR LUMBAR [...] bilateral kidneys measuring up to 1 cm. [employer] Isidro Lara MD - 08/27/2022 Patient Name: CHAN BURCIAGA : 1980 [facility]#: [id number] Exam Date/Time: 08/27/2022 10:41 Procedure: XR LUMBAR [...] Electronically Signed Date/Time: 08/27/2022 4:16 PM EDT [facility] [employer] Radiology Study observation (narrative) [facility] [employer] XR Lumbar spine 4 ViewsOrder ed By: Isidro Lara on 08-27-2022 [facility] [employer] Work Phone: [id number] percentageOrdered B y: Dr. Borden on 08-09-2022 Bilirubin [Mass/Vol] 0.40 mg/dL 0.20-1.00 [facility] Comment on above: For patients on eltr ombopag therapy, use of Dimension Graham TBIL is not recommended. Chloride [Moles/Vol] 105 mmol/L 98-107 [facility] Cholesterol [Mass/Vol] 151 mg/dL <200 [facility] Comment on above: <200 mg/dL Desirable 200-240 mg/dL Borderline >240 mg/dL High Risk Glucose [Mass/Vol] 91 mg/dL 74-106 [facility] Potassium [Moles/Vol] 3.9 mmol/L 3.5-5.1 [facility] Protein [Mass/Vol] 7.3 g/dL 6.4-8.2 [facility] Sodium [Moles/Vol] 136 mmol/L 136-145 [facility] Triglyceride [Mass/Vol] 142 mg/dL <199 [facility] Comment on above: The drugs N-Acetylcy steine and Metamizole may falsely depress this assay.Serum Triglycerides Reference Interval Normal <150 mg/dL Borderline high 150 - 199 mg/dL High 200 - 499 mg/dL Very High > or = 500 mg/dL Laboratory - Chemistry and C hemistry - challengeOrdered By: Dr. Borden on 08-09-2022 ALP [Catalytic activity/Vol] 56 U/L 45-117 [facility] ALT [Catalytic activity/Vol] 138 U/L 16-61 [facility] CO2 [Moles/Vol] 26.0 mmol/L 21.0-32.0 [facility] Globulin (S) [Mass/Vol] 3.2 g/dL 2.2-4.2 [facility] Urea nitrogen/Creatinine [Mass ratio] 11.7 mg/mg 10-20 [facility] No Panel InformationOrdered By: Dr. Borden on 08-09-2022 Estimated GFR (MDRD) Amer 93 mL/min >60 [facility] Comment on above: GFR Calc Estimated GFR (MDRD) Non-Af Amer 77 mL/min >60 [facility] Comment on above: Non- GFR Calc Serum or plasma albumin ashlee urement (mass/volume)Ordered By: Dr. Borden on 08-09-2022 Albumin [Mass/Vol] 4.1 g/dL 3.2-5.0 [facility] Serum or plasma albumin/glob ulin mass ratioOrdered By: Dr. Borden on 08-09-2022 Albumin/Globulin [Mass ratio] 1.3 {ratio} 0.9-2.4 [facility] Serum or plasma calcium ashlee urement (mass/volume)Ordered By: Dr. Borden on 08-09-2022 Calcium [Mass/Vol] 10.0 mg/dL 8.5-10.1 [facility] Serum or plasma cholesterol in HDL measurement (mass/volume)Ordered By: Dr. Borden on 08-09-2022 Cholesterol in HDL [Mass/Vol] 42 mg/dL >40 [facility] Comment on above: The drugs N-Acetylcy steine and Metamizole may falsely depress this assay. Reference Range HDL <40 mg/dL Low HDL Cholesterol HDL >or= 60 mg/dL High HDL Cholesterol Serum or plasma cholesterol in VLDL measurement (mass/volume)Ordered By: Dr. Borden on 08-09-2022 Cholesterol in VLDL [Mass/Vol] 28 mg/dL 5-40 [facility] Serum or plasma creatinine m easurement (mass/volume)Ordered By: Dr. Borden on 08-09-2022 Creatinine [Mass/Vol] 1.11 mg/dL 0.70-1.30 [facility] Comment on above: The validity of the calculated GFR & GFRAA in patients over 70 years has not been determined. Clinical correlation is essential. Serum or plasma low density lipoprotein (LDL) cholesterol measurement (mass/volume)Ordered By: Dr. Borden on 08-09-2022 Cholesterol in LDL [Mass/Vol] 81 mg/dL 0-130 [facility] Serum or plasma urea nitroge n measurement (mass/volume)Ordered By: Dr. Borden on 08-09-2022 Urea nitrogen [Mass/Vol] 13 mg/dL 7-18 [facility] Thin prep Papanicolaou smear with manual screeningOrdered By: Dr. Borden on 08-09-2022 Thin prep Papanicolaou smear with manual screening 63 U/L 15-37 [facility] Thin prep Papanicolaou smear with manual screening 5 5-15 [facility] Whole blood hemoglobin A1c/t otal hemoglobin ratio (mass fraction)Ordered By: Dr. Borden on 08-09-2022 HbA1c (Bld) [Mass fraction] 5.4 % 3.8-5.6 [facility] Comment on above: Normal < 5.7 % Predi abetic 5.7 - 6.4 % Diabetic >or= 6.5 % Please note range changes. Basophil percentageon 2021 Bilirubin [Mass/Vol] 0.30 mg/dL 0.20-1.00 [facility] Work Phone: Comment on above: For patients on eltr ombopag therapy, use of Dimension Graham TBIL is not recommended. Chloride [Moles/Vol] 108 mmol/L 98-[address] [facility] Work Phone: Cholesterol [Mass/Vol] 199 mg/dL <200 [facility] Work Phone: Comment on above: <200 mg/dL Desirable 200-240 mg/dL Borderline >240 mg/dL High Risk Glucose [Mass/Vol] 113 mg/dL 74-106 [facility] Work Phone: Comment on above: Fasting Glucose resu lt from 100 to 125 mg/dL suggests IMPAIRED HOMEOSTASIS per A.D.A. criteria. Potassium [Moles/Vol] 3.7 mmol/L 3.5-5.1 [facility] Work Phone: Protein [Mass/Vol] 7.4 g/dL 6.4-8.2 [facility] Work Phone: Sodium [Moles/Vol] 140 mmol/L 136-145 [facility] Work Phone: Triglyceride [Mass/Vol] 239 mg/dL <199 [facility] Work Phone: Comment on above: The drugs N-Acetylcy steine and Metamizole may falsely depress this assay.Serum Triglycerides Reference Interval Normal <150 mg/dL Borderline high 150 - 199 mg/dL High 200 - 499 mg/dL Very High > or = 500 mg/dL WBC (Bld) [#/Vol] 9.8 10*3/uL 4.4-11.0 [facility] Work Phone: Blood erythrocytes count (nu mber/volume)on 02-23-2022 RBC (Bld) [#/Vol] 5.30 10*6/uL 4.6-6.2 [facility] Work Phone: Blood hemoglobin measurement (mass/volume)on 02-23-2022 Hemoglobin (Bld) [Mass/Vol] 15.4 g/dL 13.0-16.5 [facility] Work Phone: Blood platelet mean volumeon 02-23-2022 Platelet mean volume (Bld) [Entitic vol] 9.4 fL 6.2-12.0 [facility] Work Phone: Determination of erythrocyte mean corpuscular volume (MCV)on 02-23-2022 MCV (RBC) [Entitic vol] 86.4 fL 80-94 [facility] Work Phone: Hematocrit Auto (Bld) [Volum e fraction]on 02-23-2022 Hematocrit (Bld) [Volume fraction] 45.8 % 40-54 [facility] Work Phone: Laboratory - Chemistry and C hemistry - challengeon 02-23-2022 ALP [Catalytic activity/Vol] 72 U/L 45-117 [facility] Work Phone: ALT [Catalytic activity/Vol] 120 U/L 16-61 [facility] Work Phone: CO2 [Moles/Vol] 24.0 mmol/L 21.0-32.0 [facility] Work Phone: Globulin (S) [Mass/Vol] 3.4 g/dL 2.2-4.2 [facility] Work Phone: Urea nitrogen/Creatinine [Mass ratio] 9.9 mg/mg 10-20 [facility] Work Phone: Laboratory - Hematology and Cell countson 02-23-2022 Erythrocyte distribution width (RBC) [Entitic vol] 42.0 fL 35.1-43.9 [facility] Work Phone: Erythrocyte distribution width (RBC) [Ratio] 13.4 % 11.6-14.6 [facility] Work Phone: MCH (RBC) [Entitic mass] 29.1 pg 27.0-32.0 [facility] Work Phone: MCHC Auto (RBC) [Mass/Vol]on 02-23-2022 MCHC (RBC) [Mass/Vol] 33.6 g/dL 32-36 [facility] Work Phone: No Panel Informationon 02-23 Estimated GFR (MDRD) Amer 104 mL/min >60 [facility] Work Phone: Comment on above: GFR Calc Estimated GFR (MDRD) Non-Af Amer 86 mL/min >60 [facility] Work Phone: Comment on above: Non- GFR Calc Platelets bldon 02-23-2022 Platelets (Bld) [#/Vol] 382 10*3/uL 150-450 [facility] Work Phone: Serum or plasma albumin ashlee urement (mass/volume)on 02-23-2022 Albumin [Mass/Vol] 4.0 g/dL 3.2-5.0 [facility] Work Phone: Serum or plasma albumin/glob ulin mass ratioon 02-23-2022 Albumin/Globulin [Mass ratio] 1.2 {ratio} 0.9-2.4 [facility] Work Phone: Serum or plasma calcium ashlee urement (mass/volume)on 02-23-2022 Calcium [Mass/Vol] 9.5 mg/dL 8.5-10.1 [facility] Work Phone: Serum or plasma cholesterol in HDL measurement (mass/volume)on 02-23-2022 Cholesterol in HDL [Mass/Vol] 35 mg/dL >40 [facility] Work Phone: Comment on above: The drugs N-Acetylcy steine and Metamizole may falsely depress this assay. Reference Range HDL <40 mg/dL Low HDL Cholesterol HDL >or= 60 mg/dL High HDL Cholesterol Serum or plasma cholesterol in VLDL measurement (mass/volume)on 02-23-2022 Cholesterol in VLDL [Mass/Vol] 48 mg/dL 5-40 [facility] Work Phone: Serum or plasma creatinine m easurement (mass/volume)on 02-23-2022 Creatinine [Mass/Vol] 1.01 mg/dL 0.70-1.30 [facility] Work Phone: Comment on above: The validity of the calculated GFR & GFRAA in patients over 70 years has not been determined. Clinical correlation is essential. Serum or plasma low density lipoprotein (LDL) cholesterol measurement (mass/volume)on 02-23-2022 Cholesterol in LDL [Mass/Vol] 116 mg/dL 0-130 [facility] Work Phone: Serum or plasma oxcarbazepin e measurement (mass/volume)on 02-23-2022 OXcarbazepine [Mass/Vol] 22 ug/mL 10-35 [facility] Work Phone: Comment on above: This test was develo ped and its performance characteristicsdetermined by [employer] [facility] [employer]. It has not been cleared orapproved by the Food and Drug Administration. Detection Limit = 1Performed at: [facility] [id number] Director: Andra Sawant MD, Phone: [phone] Serum or plasma urea nitroge n measurement (mass/volume)on 02-23-2022 Urea nitrogen [Mass/Vol] 10 mg/dL 7-18 [facility] Work Phone: Thin prep Papanicolaou smear with manual screeningon 02-23-2022 Thin prep Papanicolaou smear with manual screening 53 U/L 15-37 [facility] Work Phone: Thin prep Papanicolaou smear with manual screening 8 5-15 [facility] Work Phone: Whole blood hemoglobin A1c/t otal hemoglobin ratio (mass fraction)on 02-23-2022 HbA1c (Bld) [Mass fraction] 5.8 % 3.8-5.6 [facility] Work Phone: Comment on above: Normal < 5.7 % Predi abetic 5.7 - 6.4 % Diabetic >or= 6.5 % Please note range changes. No Panel Informationon 02-19 POC SARS CoV-2 Antigen Negative [facility] Work Phone: No Panel Informationon 02-09 POC SARS CoV-2 Antigen Positive [facility] Work Phone: Vital Signs Date Time Vital Sign Value Performing Clinician Facility 10-09-2024 13:56-0400 SaO2% (BldA) [Mass fraction] 95 % Dr. Ramiro Rosa MD Work Phone: [facility] 10-09-2024 13:32-0400 Body temperature 98.1 [degF] Dr. Ramiro Rosa MD Work Phone: 3(687)911-960503 [place] [address] 10-09-2024 13:32-0400 Diastolic blood pressure 87 mm[Hg] Dr. Ramiro Rosa MD Work Phone: 0(813)124-083303 [place] [address] 10-09-2024 13:32-0400 Heart rate 80 /min Dr. Ramiro Rosa MD Work Phone: 5(052)614-955703 [place] [address] 10-09-2024 13:32-0400 Respiratory rate 16 /min Dr. Ramiro Rosa MD Work Phone: 4(059)765-978903 [place] [address] 10-09-2024 13:32-0400 Systolic blood pressure 144 mm[Hg] Dr. Ramiro Rosa MD Work Phone: 8(636)269-580503 [place] [address] 10-09-2024 13:10-0400 Inhaled oxygen flow rate 2 L/min Dr. Ramiro Rosa MD Work Phone: 4(621)716-827503 [place] [address] 10-09-2024 10:19-0400 Body height [address] Ramiro Rosa MD Work Phone: 0(391)637-813303 [place] [address] 10-09-2024 10:19-0400 Body mass index (BMI) [Ratio] 31.6 kg/m2 Dr. Ramiro Rosa MD Work Phone: 5(629)799-967003 [place] [address] 10-09-2024 10:19-0400 Body weight [address] Ramiro Rosa MD Work Phone: 0(155)375-847203 [place] [address] 10-08-2024 19:56-0400 Body temperature 98 [degF] Dr. Ramiro Rosa MD Work Phone: 8(781)446-089703 [place] [address] 10-08-2024 19:56-0400 Diastolic blood pressure 90 mm[Hg] Dr. Ramiro Rosa MD Work Phone: 2(703)086-240303 [place] [address] 10-08-2024 19:56-0400 Heart rate 96 /min Dr. Ramiro Rosa MD Work Phone: [facility] 10-08-2024 19:56-0400 Respiratory rate 18 /min Dr. Ramiro Rosa MD Work Phone: [facility] 10-08-2024 19:56-0400 SaO2% (BldA) [Mass fraction] 97 % Dr. Ramiro Rosa MD Work Phone: [facility] 10-08-2024 19:56-0400 Systolic blood pressure 149 mm[Hg] Dr. Ramiro Rosa MD Work Phone: [facility] 10-08-2024 16:53-0400 Body height 167.[address] Ramiro Rosa MD Work Phone: [facility] 10-08-2024 16:53-0400 Body mass index (BMI) [Ratio] 30.5 kg/m2 Dr. Ramiro Rosa MD Work Phone: [facility] 10-08-2024 16:53-0400 Body weight 85.[address] Ramiro Rosa MD Work Phone: [facility] 10-08-2024 16:16-0400 Body temperature 97 [degF] Zach Cardenas MD Work Phone: [facility] 10-08-2024 16:16-0400 Body weight 85 kg aZch Cardenas MD Work Phone: [facility] 10-08-2024 16:16-0400 Diastolic blood pressure 88 mm[Hg] Zach Cardenas MD Work Phone: [facility] 10-08-2024 16:16-0400 Heart rate 97 /min Zach Cardenas MD Work Phone: [facility] 10-08-2024 16:16-0400 Respiratory rate 20 /min Zach Cardenas MD Work Phone: [facility] 10-08-2024 16:16-0400 SaO2% (BldA) [Mass fraction] 95 % Zach Cardenas MD Work Phone: [facility] 10-08-2024 16:16-0400 Systolic blood pressure 134 mm[Hg] Zach Cardenas MD Work Phone: [facility] 09-27-2024 09:54-0400 Body temperature 97.11 [degF] [facility] RAIL DIRECTOR.FORENSIC SERGEANT Work Phone: [facility] 09-27-2024 09:54-0400 Body weight 86.2 kg [facility] RAIL DIRECTOR.FORENSIC SERGEANT Work Phone: [facility] 09-27-2024 09:54-0400 Diastolic blood pressure 66 mm[Hg] [facility] RAIL DIRECTOR.FORENSIC SERGEANT Work Phone: [facility] 09-27-2024 09:54-0400 Heart rate 96 /min [facility] RAIL DIRECTOR.FORENSIC SERGEANT Work Phone: [facility] 09-27-2024 09:54-0400 SaO2% (BldA) [Mass fraction] 96 % [facility] RAIL DIRECTOR.FORENSIC SERGEANT Work Phone: [facility] 09-27-2024 09:54-0400 Systolic blood pressure 110 mm[Hg] [facility] RAIL DIRECTOR.FORENSIC SERGEANT Work Phone: [facility] 04-20-2024 11:04-0500 Body height 166.4 cm Ramiro Rosa MD Work Phone: [facility] [employer] 04-20-2024 11:04-0500 Body mass index (BMI) [Ratio] 31.27 kg/m2 Ramiro Rosa MD Work Phone: [facility] [employer] 04-20-2024 11:04-0500 Body weight 86.55 kg Ramiro Rosa MD Work Phone: [facility] [employer] 04-20-2024 11:04-0500 Diastolic blood pressure 74 mm[Hg] Ramiro Rosa MD Work Phone: [facility] [employer] 04-20-2024 11:04-0500 Heart rate 73 /min Ramiro Rosa MD Work Phone: [facility] [employer] 04-20-2024 11:04-0500 SaO2% (BldA) [Mass fraction] 94 % Ramiro Rosa MD Work Phone: [facility] [employer] 04-20-2024 11:04-0500 Systolic blood pressure 117 mm[Hg] Ramiro Rosa MD Work Phone: [facility] [employer] 10-24-2023 09:29-0400 Body height 166.4 cm Ramiro Rosa MD Work Phone: [facility] [employer] 10-24-2023 09:29-0400 Body mass index (BMI) [Ratio] 30.09 kg/m2 Ramiro Rosa MD Work Phone: [facility] [employer] 10-24-2023 09:29-0400 Body weight 83.28 kg Ramiro Rosa MD Work Phone: [facility] [employer] 10-24-2023 09:29-0400 Diastolic blood pressure 76 mm[Hg] Ramiro Rosa MD Work Phone: [facility] [employer] 10-24-2023 09:29-0400 Heart rate 66 /min Ramiro Rosa MD Work Phone: [facility] [employer] 10-24-2023 09:29-0400 SaO2% (BldA) [Mass fraction] 95 % Ramiro Rosa MD Work Phone: [facility] [employer] 10-24-2023 09:29-0400 Systolic blood pressure 115 mm[Hg] Ramiro Rosa MD Work Phone: [facility] [employer] 09-27-2023 11:13-0400 Body height 166.4 cm Ramiro Rosa MD Work Phone: [employer] 09-27-2023 11:13-0400 Body mass index (BMI) [Ratio] 29.6 kg/m2 Ramiro Rosa MD Work Phone: [employer] 09-27-2023 11:13-0400 Body weight 81.92 kg Ramiro Rosa MD Work Phone: [facility] 09-27-2023 11:13-0400 Diastolic blood pressure 81 mm[Hg] Ramiro Rosa MD Work Phone: [facility] 09-27-2023 11:13-0400 Heart rate 82 /min Ramiro Rosa MD Work Phone: [facility] 09-27-2023 11:13-0400 SaO2% (BldA) [Mass fraction] 95 % Ramiro Rosa MD Work Phone: [facility] 09-27-2023 11:13-0400 Systolic blood pressure 122 mm[Hg] Ramiro Rosa MD Work Phone: [facility] 05-29-2023 10:14-0500 Body temperature 98.2 [degF] Dr. Ramiro Rosa Work Phone: [facility] 05-29-2023 10:14-0500 Diastolic blood pressure 74 mm[Hg] Dr. Ramiro Rosa Work Phone: [facility] 05-29-2023 10:14-0500 Heart rate 98 /min Dr. Ramiro Rosa Work Phone: [facility] 05-29-2023 10:14-0500 Respiratory rate 18 /min Dr. Ramiro Rosa Work Phone: [facility] 05-29-2023 10:14-0500 SaO2% (BldA) [Mass fraction] 97 % Dr. Ramiro Rosa Work Phone: [facility] 05-29-2023 10:14-0500 Systolic blood pressure 115 mm[Hg] Dr. Ramiro Rosa Work Phone: [facility] 04-18-2023 09:03-0500 Body height 166.4 cm Ramrio Rosa MD Work Phone: [facility] 04-18-2023 09:03-0500 Body mass index (BMI) [Ratio] 30.65 kg/m2 Ramiro Rosa MD Work Phone: [facility] 04-18-2023 09:03-0500 Body weight 84.82 kg Ramiro Rosa MD Work Phone: [facility] 04-18-2023 09:03-0500 Diastolic blood pressure 72 mm[Hg] Ramiro Rosa MD Work Phone: [facility] 04-18-2023 09:03-0500 Heart rate 79 /min Ramiro Rosa MD Work Phone: [facility] 04-18-2023 09:03-0500 SaO2% (BldA) [Mass fraction] 94 % Ramiro Rosa MD Work Phone: [facility] 04-18-2023 09:03-0500 Systolic blood pressure 108 mm[Hg] Ramiro Rosa MD Work Phone: [facility] 02-18-2023 14:49-0400 Body temperature 98.01 [degF] Yulia Lujan RAIL DIRECTOR.FORENSIC SERGEANT Work Phone: [facility] 02-18-2023 14:49-0400 Body weight 84.19 kg Yulia Lujan RAIL DIRECTOR.FORENSIC SERGEANT Work Phone: [facility] 02-18-2023 14:49-0400 Diastolic blood pressure 70 mm[Hg] Yulia Lujan RAIL DIRECTOR.FORENSIC SERGEANT Work Phone: [facility] 02-18-2023 14:49-0400 Heart rate 98 /min Yulia Lujan RAIL DIRECTOR.FORENSIC SERGEANT Work Phone: [facility] 02-18-2023 14:49-0400 Respiratory rate 16 /min Yulia Lujan RAIL DIRECTOR.FORENSIC SERGEANT Work Phone: [facility] 02-18-2023 14:49-0400 SaO2% (BldA) [Mass fraction] 96 % Yulia Lujan RAIL DIRECTOR.FORENSIC SERGEANT Work Phone: [facility] 02-18-2023 14:49-0400 Systolic blood pressure 124 mm[Hg] Yulia Lujan RAIL DIRECTOR.FORENSIC SERGEANT Work Phone: [facility] 10-18-2022 14:23-0400 Body height 166.4 cm Ramiro Rosa MD Work Phone: [facility] [employer] 10-18-2022 14:23-0400 Body mass index (BMI) [Ratio] 30.15 kg/m2 Ramiro Rosa MD Work Phone: [facility] [employer] 10-18-2022 14:23-0400 Body weight 83.46 kg Ramiro Rosa MD Work Phone: [facility] [employer] 10-18-2022 14:23-0400 Diastolic blood pressure 84 mm[Hg] Ramiro Rosa MD Work Phone: [facility] [employer] 10-18-2022 14:23-0400 Heart rate 90 /min Ramiro Rosa MD Work Phone: [facility] [employer] 10-18-2022 14:23-0400 SaO2% (BldA) [Mass fraction] 95 % Ramiro Rosa MD Work Phone: [facility] [employer] 10-18-2022 14:23-0400 Systolic blood pressure 125 mm[Hg] Ramiro Rosa MD Work Phone: [facility] [employer] 08-27-2022 09:43-0400 Body height 166.4 cm Ramiro Rosa MD Work Phone: [facility] [employer] 08-27-2022 09:43-0400 Body mass index (BMI) [Ratio] 29.53 kg/m2 Ramiro Rosa MD Work Phone: [facility] [employer] 08-27-2022 09:43-0400 Body weight 81.74 kg Ramiro Rosa MD Work Phone: [facility] [employer] 08-27-2022 09:43-0400 Diastolic blood pressure 62 mm[Hg] Ramiro Rosa MD Work Phone: [facility] [employer] 08-27-2022 09:43-0400 Heart rate 65 /min Ramiro Rosa MD Work Phone: [facility] 08-27-2022 09:43-0400 Systolic blood pressure 110 mm[Hg] Ramiro Rosa MD Work Phone: [facility] 04-17-2022 11:29-0500 Diastolic blood pressure 95 mm[Hg] Dr. Ramiro Rosa Work Phone: [facility] Work Phone: 04-17-2022 11:29-0500 Heart rate 67 /min Dr. Ramiro Rosa Work Phone: [facility] Work Phone: 04-17-2022 11:29-0500 Respiratory rate 16 /min Dr. Ramiro Rosa Work Phone: [facility] Work Phone: 04-17-2022 11:29-0500 SaO2% (BldA) [Mass fraction] 97 % Dr. Ramiro Rosa Work Phone: [facility] Work Phone: 04-17-2022 11:29-0500 Systolic blood pressure 166 mm[Hg] Dr. Ramiro Rosa Work Phone: [facility] Work Phone: 04-17-2022 09:39-0500 Body height 165.[address] Ramiro Rosa Work Phone: [facility] Work Phone: 04-17-2022 09:39-0500 Body mass index (BMI) [Ratio] 30.9 kg/m2 Dr. Ramiro Rosa Work Phone: [facility] Work Phone: 04-17-2022 09:39-0500 Body temperature 97.3 [degF] Dr. Ramiro Rosa Work Phone: [facility] Work Phone: 04-17-2022 09:39-0500 Body weight 84.[address] Ramiro Rosa Work Phone: [facility] Work Phone: 02-19-2022 10:12-0400 Body temperature 97.2 [degF] Dr. Ramiro Rosa Work Phone: [facility] Work Phone: 02-19-2022 10:12-0400 Diastolic blood pressure 88 mm[Hg] Dr. Ramiro Rosa Work Phone: [facility] Work Phone: 02-19-2022 10:12-0400 Heart rate 81 /min Dr. Ramiro Rosa Work Phone: [facility] Work Phone: 02-19-2022 10:12-0400 Respiratory rate 16 /min Dr. Ramiro Rosa Work Phone: [facility] Work Phone: 02-19-2022 10:12-0400 SaO2% (BldA) [Mass fraction] 97 % Dr. Ramiro Rosa Work Phone: [facility] Work Phone: 02-19-2022 10:12-0400 Systolic blood pressure 128 mm[Hg] Dr. Ramiro Rosa Work Phone: [facility] Work Phone: 02-09-2022 09:43-0400 Body height 165.[address] Ramiro Rosa Work Phone: [facility] Work Phone: 02-09-2022 09:43-0400 Body mass index (BMI) [Ratio] 29.2 kg/m2 Dr. Ramiro Rosa Work Phone: [facility] Work Phone: 02-09-2022 09:43-0400 Body temperature 97.5 [degF] Dr. Ramiro Rosa Work Phone: [facility] Work Phone: 02-09-2022 09:43-0400 Body weight 79.[address] Ramiro Rosa Work Phone: [facility] Work Phone: 02-09-2022 09:43-0400 Diastolic blood pressure 82 mm[Hg] Dr. Ramiro Rosa Work Phone: [facility] Work Phone: 02-09-2022 09:43-0400 Heart rate 101 /min Dr. Ramiro Rosa Work Phone: [facility] Work Phone: 02-09-2022 09:43-0400 Respiratory rate 17 /min Dr. Ramiro Rosa Work Phone: [facility] Work Phone: 02-09-2022 09:43-0400 SaO2% (BldA) [Mass fraction] 97 % Dr. Ramiro Rosa Work Phone: [facility] Work Phone: 02-09-2022 09:43-0400 Systolic blood pressure 120 mm[Hg] Dr. Ramiro Rosa Work Phone: [facility] Work Phone: Encounters Encounter Date Encounter Type Care Provider Facility Start: 10-09-2024 Non-patient / Non-visit Dr. Odette Mares MD -[facility] Work Phone: Start: 10-08-2024 ambulatory Salvador Rush Faci lity:[facility] Start: 10-08-2024 End: 10-09-2024 Evaluation and management of inpatient Salvador Rush Facility:[facility] Start: 10-08-2024 End: 10-08-2024 Office outpatient visit 25 minutes Zach Cardenas MD Work Phone: [facility] Comment on above: Midline low back taurus n, unspecified chronicity, unspecified whether sciatica present (Primary Dx); Abdominal pain, unspecified abdominal location; Microscopic hematuria; History of kidney stones Start: 10-08-2024 End: 10-08-2024 ambulatory RAMIRO ROSA Facility:[facility] Start: 10-02-2024 End: 10-02-2024 Refill Puja [facility] Comment on above: Hyperlipidemia LDL g oal <100 Start: 09-28-2024 End: 09-29-2024 Follow-up encounter Nicole PISANO Work Phone: [facility] Comment on above: Results Start: 09-27-2024 End: 09-27-2024 Office outpatient visit 25 minutes [facility] RAIL DIRECTOR.FORENSIC SERGEANT Work Phone: [facility] Comment on above: Acute cystitis with hematuria (Primary Dx) Start: 09-27-2024 End: 09-27-2024 ambulatory [facility] Facility:[facility] Start: 08-20-2024 End: 08-20-2024 Refill Virgie Cee RAIL DIRECTOR - [employer]IC [employer]GEANT Work Phone: [facility] Comment on above: Hyperlipidemia LDL g oal <100 Start: 08-10-2024 End: 08-10-2024 Telephone encounter Ramiro Rosa MD Work Phone: [facility] Clinical Communication Start: 07-23-2024 End: 07-23-2024 Refill Ramiro Rosa MD Work Phone: [facility] Start: 07-14-2024 End: 07-14-2024 Refill Ramiro Rosa MD Work Phone: [facility] Start: 06-26-2024 End: 06-26-[address] Ramiro Rosa MD Work Phone: [facility] Work Phone: Start: 06-26-2024 End: 06-26-[address] Dajuan Morrison MD -Laboratory, Specimen Work Phone: Start: 06-26-2024 End: 06-26-2024 ambulatory Dajuan HINDS Facility:[facility] Start: 06-23-2024 End: 06-23-2024 Refill Ramiro Rosa MD Work Phone: [facility] Start: 05-04-2024 End: 05-04-2024 Refill Virgie Bridenthal RAIL DIRECTOR - [employer]GEANT Work Phone: [facility] Start: 05-01-2024 End: 05-01-2024 Refill Virgie Bridenthal RAIL DIRECTOR - [employer]GEANT Work Phone: [facility] Comment on above: Hyperlipidemia LDL g oal <100 Start: 04-20-2024 End: 04-20-2024 ambulatory [facility] Start: 04-20-2024 End: 04-20-2024 Encounter for general adult medical examination without abnormal findings [facility] Start: 04-20-2024 End: 04-20-2024 Patient encounter procedure Ramiro Rosa MD Work Phone: [facility] Work Phone: Start: 04-20-2024 End: 04-20-2024 Periodic preventive med est patient 40-64yrs Ramiro Rosa MD Work Phone: [facility] Comment on above: Annual physical exam (Primary Dx); Essential hypertension; Hyperlipidemia LDL goal <100; Intellectual disability; Recurrent major depressive disorder, in full remission (HCC); Seasonal allergic rhinitis due to pollen; Loud snoring; Screening for diabetes mellitus; Screening for prostate cancer Start: 04-03-2024 End: 04-06-2024 Refill Ramiro Rosa MD Work Phone: [facility] Start: 02-14-2024 End: 02-14-2024 ambulatory Dajuan HINDS Facility:[facility] Start: 02-03-2024 End: 02-03-2024 Refill Virgie Bridenthal RAIL DIRECTOR - [employer]GEANT Work Phone: [facility] Comment on above: Seasonal allergic rh initis due to pollen Start: 01-17-2024 End: 01-17-2024 Telephone encounter Coco Cheema RAIL DIRECTOR - FORENSIC SERGEANT Work Phone: [facility] Comment on above: Results; Release of Information Start: 01-09-2024 End: 01-09-2024 ambulatory Ramiro Rosa MD Work Phone: [facility] Comment on above: MILAGROS (obstructive sle ep apnea); Loud snoring Start: 12-19-2023 ambulatory [facility] Facility :[facility] Start: 12-19-2023 End: 12-19-2023 ambulatory [facility] Facility:[facility] Start: 12-18-2023 End: 12-19-2023 Refill Ramiro Rosa MD Work Phone: [facility] Start: 12-03-2023 End: 12-03-2023 Refill Puja D'Cecily [facility] Comment on above: Hyperlipidemia LDL g oal <100 Start: 11-12-2023 End: 11-12-2023 Refill Ramiro Rosa MD Work Phone: [facility] Start: 11-05-2023 ambulatory [facility] Start: 10-24-2023 End: 10-24-2023 Office outpatient visit 25 minutes Ramiro Rosa MD Work Phone: [facility] Comment on above: Essential hypertensi on (Primary Dx); Hyperlipidemia LDL goal <100; Recurrent major depressive disorder, in full remission (HCC); Seasonal allergic rhinitis due to pollen; MILAGROS (obstructive sleep apnea); Loud snoring; Screening for colon cancer Start: 10-24-2023 End: 10-24-2023 ambulatory RAMIRO ROSA [facility] Start: 09-27-2023 End: 09-27-2023 Office outpatient visit 15 minutes Ramiro Rosa MD Work Phone: [facility] Comment on above: Chronic midline low back pain without sciatica (Primary Dx) Start: 07-16-2023 End: 07-16-[address] Ramiro Rosa Work Phone: [facility] Work Phone: Start: 07-16-2023 End: 07-16-[address] Ramiro Rosa Work Phone: [facility]-Physical Therapy Work Phone: Start: 07-10-2023 Refill Ramiro Rosa MD Work Phone: [facility] Start: 07-02-2023 Refill Puja D'Cecily [facility] Comment on above: Essential hypertensi on (Primary Dx); Hyperlipidemia LDL goal <100 Start: 06-07-2023 Refill Ramiro Rosa MD Work Phone: [facility] Start: 05-29-2023 End: 05-29-[address] Ramiro Rosa Work Phone: [facility] Work Phone: Start: 05-29-2023 End: 05-29-[address] Ramiro Rosa Work Phone: [facility]-Laboratory, Specimen Work Phone: Start: 05-29-2023 End: 05-29-[address] Ramiro Rosa Work Phone: [facility] Work Phone: Start: 04-24-2023 Refill Ramiro Rosa MD Work Phone: [facility] Start: 04-18-2023 End: 04-18-2023 Patient encounter procedure Ramiro Rosa MD Work Phone: [facility] Work Phone: Start: 04-18-2023 End: 04-18-2023 Periodic preventive med est patient 40-64yrs Ramiro Rosa MD Work Phone: [facility] Comment on above: Annual physical exam (Primary Dx); Essential hypertension; Seasonal allergic rhinitis due to pollen; Recurrent major depressive disorder, in full remission (HCC); Hyperlipidemia LDL goal <100; Intellectual disability; Screening for diabetes mellitus; Screening for prostate cancer; Chronic midline low back pain without sciatica Start: 03-29-2023 Refill Ramiro Rosa MD Work Phone: [facility] Comment on above: Seasonal allergic rh initis due to pollen Start: 02-18-2023 ambulatory Milly Miller RN [facility] Clin ical Communication Start: 02-18-2023 End: 02-18-2023 Patient encounter procedure Milly Miller RN [facility] Clinical Communication Comment on above: Toenail torn away (P rimary Dx) Start: 01-08-2023 Refill Ramiro Rosa MD Work Phone: [facility] Start: 12-07-2022 Refill Ramiro Rosa MD Work Phone: [facility] Comment on above: Seasonal allergic rh initis due to pollen Start: 10-31-2022 Refill Ramiro Rosa MD Work Phone: [facility] Start: 10-19-2022 Telephone encounter Ramiro Vasquez MD Work Phone: [facility] Comment on above: Medication Problem ( nabumetone (Relafen) 500 MG tablet //) Start: 10-18-2022 End: 10-18-2022 Office outpatient visit 25 minutes Ramiro Rosa MD Work Phone: [facility] Comment on above: Essential hypertensi on (Primary Dx); Hyperlipidemia LDL goal <100; Recurrent major depressive disorder, in full remission (HCC); Acute midline low back pain without sciatica Start: 08-27-2022 End: 08-27-2022 Subsequent hospital visit by physician Ramiro Rosa MD Work Phone: [facility] Rad[facility] Comment on above: Acute midline low ba ck pain without sciatica Start: 08-27-2022 End: 08-27-2022 Office outpatient visit 15 minutes Ramiro Rosa MD Work Phone: [facility] Comment on above: Acute midline low ba ck pain without sciatica (Primary Dx) Start: 08-09-2022 End: 08-09-2022 ambulatory [facility] Work Phone: Start: 08-09-2022 End: 08-09-2022 Patient encounter procedure [facility]Laboratory Start: 08-07-2022 Refill Ramiro Rosa MD Work Phone: [facility] Start: 07-06-2022 Refill Ramiro Rosa MD Work Phone: [facility] Start: 05-04-2022 Telephone encounter Ramiro Vasquez MD Work Phone: [facility] Comment on above: other (BP readings f or one week patient may need more meds) Start: 04-17-2022 End: 04-17-2022 Emergency department patient visit Dr. Ramiro Rosa Work Phone: [facility]-Emergency Department Start: 02-23-2022 End: 02-23-[address] Ramiro Rosa Work Phone: [facility] Work Phone: Start: 02-23-2022 End: 02-23-[address] Ramiro Rosa Work Phone: [facility]Laboratory Start: 02-19-2022 End: 02-19-[address] Ramiro Rosa Work Phone: [facility] Start: 02-09-2022 End: 02-09-[address] Ramiro Rosa Work Phone: [facility] Procedures Date Procedure Procedure Detail Performing Clinician Start: 10-09-2024 Fluoroscopic guidance Kayla Rosa MD Work Phone: Start: 10-09-2024 Insertion of stent i nto ureter Dr. Ramiro Rosa MD Work Phone: Start: 10-09-[address] Ramiro Rosa MD Work Phone: Start: 10-08-2024 Urnls dip stick/tabl et reagent auto microscopy Dr. Ramiro Rosa MD Work Phone: Start: 10-08-[address] Ramiro Rosa MD Work Phone: Start: 10-08-2024 Computed tomography of abdomen and pelvis with intravenous contrast Dr. Ramiro Rosa MD Work Phone: Start: 10-08-2024 Urnls dip stick/tabl et rgnt auto w/o microscopy Zach Cardenas MD Work Phone: Start: 09-27-2024 Urnls dip stick/tabl et rgnt auto w/o microscopy [facility] Provider Start: 06-26-2024 Measurement of renal function Dr. Ramiro Rosa MD Work Phone: Comment on above: GFR Calc Start: 04-20-2024 Lipid 1996 panel - S joe or Plasma Virgie Dudleyal RAIL DIRECTOR - [employer]IC [employer]GEANT Work Phone: Start: 01-16-2024 HOME SLEEP TEST Ramiro Rosa MD Work Phone: Start: 12-19-2023 Colonoscopy Ramiro rose MD Work Phone: Start: 05-29-[address] Paulo Rosa Work Phone: Start: 04-18-2023 Lipid 1996 panel - S joe or Plasma Ramiro Rosa MD Work Phone: Start: 08-27-2022 Radex spine lumbosac ral minimum 4 views Ramiro Rosa MD Work Phone: Start: 08-09-2022 Lipid 1996 panel - S joe or Plasma Ramiro Rosa MD Work Phone: Start: 04-17-2022 CT of head without contrast Dr. Ramiro Rosa Work Phone: Start: 02-23-2022 Lipid 1996 panel - S joe or Plasma Ramiro Rosa MD Work Phone: Start: 06-15-2021 Lipid 1996 panel - S joe or Plasma Yulia Lujan APRN.FORENSIC SERGEANT Work Phone: Plan of Treatment Date Care Activity Detail Author Start: 2053 RSV Immunization for Adults (1 - 1-dose 75+ series) RSV Immunization for Adults (1 - 1-dose 75+ series) [facility] Start: 2038 RSV Immunization age d 60 or older (1 - 1-dose 60+ series) RSV Immunization aged 60 or older (1 - 1-dose 60+ series) [facility] Start: 12-18-2033 Screening for malign ant neoplasm of colon [facility] Start: 04-20-2029 Lipid panel [facility] Start: 2028 Zoster Vaccines (1 of 2) Zoster Vacc romulo (1 of 2) [facility] Start: 04-18-2028 Lipid panel Lipid Panel [facility] Start: 08-10-2027 Lipid panel Lipid Panel [facility] Start: 04-20-2027 Diabetes Screening Diabetes Screenin g [facility] Start: 02-23-2027 Lipid panel Lipid Panel [facility] Start: 06-15-2026 Lipid 1996 panel - S joe or Plasma Lipid Screening [facility] Start: 08-09-2025 Diabetes mellitus screening Diabetes Screening [facility] Start: 02-23-2025 Diabetes mellitus screening Diabetes Screening [facility] Start: 10-23-2024 DTaP/Tdap/Td Vaccine s (1 - Tdap) DTaP/Tdap/Td Vaccines (1 - Tdap) [facility] Comment on above: Postponed from 10/16 (Patient Refused) Start: 10-23-2024 Hepatitis B Vaccines (1 of 3 - 19+ 3-dose series) Hepatitis B Vaccines (1 of 3 - 19+ 3-dose series) [facility] Comment on above: Postponed from 10/16 (Patient Refused) Start: 10-23-2024 Hepatitis C screening Hepatitis C Sc reening [facility] Comment on above: Postponed from 10/16 (Patient Refused) Start: 10-23-2024 HIV screening HIV Screening [facility] Comment on above: Postponed from 10/16 (Patient Refused) Start: 10-20-2024 End: 10-20-2024 Patient encounter procedure 10/20/2024 11:30 AM EDT [address] [place] [address] [place] [address] Ramiro Rosa MD [address] [place] [id number] [facility] Start: 10-19-2024 Depression Monitoring Depression [facility] Start: 10-15-2024 End: 10-15-2024 Patient encounter procedure 10/15/2024 11:45 AM EDT Office [address] [place] [address] Ramiro Rosa MD [address] [place] [id number] [facility] Start: 10-09-2024 Patient discharge [facility] Start: 10-08-2024 Following clinical pathway protocol [facility] Start: 10-08-2024 Assessment of risk o f venous thromboembolism [facility] Start: 10-08-2024 Consultation [facility] Start: 10-08-2024 Incentive spirometry [facility] Start: 10-08-2024 Inhalation therapy procedure [facility] Start: 10-08-2024 Insertion of cathete r into peripheral vein [facility] Start: 10-08-2024 Introduction of urin kashif catheter [facility] Start: 10-08-2024 Measuring intake and output [facility] Start: 10-08-2024 Oxygen therapy [facility] Start: 10-08-2024 Providing care accor ding to standard [facility] Start: 10-08-2024 Provision of activit y privileges [facility] Start: 10-08-2024 Referral to service [facility] Start: 10-08-2024 [facility] Start: 10-08-2024 Verification routine [facility] Start: 10-08-2024 Admission procedure [facility] Start: 10-08-2024 Hospital admission, emergency, from emergency room, medical nature [facility] Start: 09-16-2024 Diabetes mellitus screening Diabetes Screening [facility] Start: 04-24-2024 Depression Monitoring Depression Mon [facility] Start: 04-20-2024 End: 04-20-2025 Comprehensive metabolic 1998 panel - Serum or Plasma Comprehensive metabolic panel Lab Routine Screening for diabetes mellitus Expected: 04/20/2024 (Approximate), Expires: 04/20/2025 [facility] Comment on above: Expected: 04/20/2024 (Approximate), Expires: 04/20/2025 Start: 04-20-2024 End: 04-20-2025 Lipid 1996 panel - Serum or Plasma Lipid panel Lab Routine Hyperlipidemia LDL goal <100 Expected: 04/20/2024 (Approximate), Expires: 04/20/2025 [facility] Work Phone: Comment on above: Expected: 04/20/2024 (Approximate), Expires: 04/20/2025 Start: 04-20-2024 End: 04-20-2025 PSA Total (Screening) PSA Total (Screening) Lab Routine Screening for prostate cancer Expected: 04/20/2024 (Approximate), Expires: 04/20/2025 [facility] Comment on above: Expected: 04/20/2024 (Approximate), Expires: 04/20/2025 Start: 04-20-2024 End: 04-20-2024 Patient encounter procedure [facility] Start: 01-09-2024 End: 01-09-2024 Clinical Support 01/09/2024 9:00 AM EDT Clinical Support [facility] [address] [place] [address] Ramiro Rosa MD [facility] [place] [address] [facility] Start: 01-05-2024 COVID-19 Vaccine () COVID-19 Vaccine () [facility] Start: 01-05-2024 COVID-19 Vaccine () COVID-19 Vaccine () [facility] Start: 01-05-2024 Influenza vaccination Influenza Vacc ine (#1) [facility] Start: 10-24-2023 End: 10-23-2024 Home sleep test Home sleep test Sleep Center Routine MILAGROS (obstructive sleep apnea) Loud snoring Expected: 10/24/2023 (Approximate), Expires: 10/23/2024 [facility] [facility] Work Phone: Comment on above: Expected: 10/24/2023 (Approximate), Expires: 10/23/2024 Start: 10-24-2023 End: 10-24-2023 Patient encounter procedure 10/24/2023 9:30 AM EDT Office Visit [facility] Medicine [address] [place] [address] [place] [address] Ramiro Rosa MD [address] [place] [address] [facility] [place] [address] [facility] Medicine Start: 10-18-2023 Depression Monitoring Depression Mon itoring [facility] Start: 10-18-2023 Depresssion Monitoring Depresssion M onitoring [facility] Start: 10-17-2023 Screening for malign ant neoplasm of colon [facility] Start: 08-10-2023 Diabetes mellitus screening Diabetes Screening [facility] Start: 05-29-2023 Urine culture Urine Culture [facility] Start: 05-29-2023 [facility] Start: 04-18-2023 End: 04-18-2024 Comprehensive metabolic 1998 panel - Serum or Plasma Comprehensive metabolic panel Lab Routine Screening for diabetes mellitus Expected: 04/18/2023 (Approximate), Expires: 04/18/2024 [facility] Work Phone: Comment on above: Expected: 04/18/2023 (Approximate), Expires: 04/18/2024 Start: 04-18-2023 End: 04-18-2024 Lipid 1996 panel - Serum or Plasma Lipid panel Lab Routine Hyperlipidemia LDL goal <100 Expected: 04/18/2023 (Approximate), Expires: 04/18/2024 [facility] Comment on above: Expected: 04/18/2023 (Approximate), Expires: 04/18/2024 Start: 04-18-2023 End: 04-18-2024 PSA Total (Screening) PSA Total (Screening) Lab Routine Screening for prostate cancer Expected: 04/18/2023 (Approximate), Expires: 04/18/2024 [facility] Comment on above: Expected: 04/18/2023 (Approximate), Expires: 04/18/2024 Start: 04-18-2023 End: 04-18-2023 Patient encounter procedure 04/18/2023 9:30 AM EST Office Visit [facility] Medicine [address] [place] [id number] Ramiro Rosa MD [address] [place] [id number] [facility] Start: 01-04-2023 Covid-19 Vaccine ( season) Covid-19 Vaccine ( season) [facility] Start: 01-04-2023 Influenza vaccination Influenza Vacc ine (#1) [facility] Start: 10-18-2022 End: 10-18-2022 Patient encounter procedure 10/18/2022 Office Visit Family Medicine Ramiro Rosa MD [address] [place] [id number] [facility] Start: 05-06-2022 Depression Assessment Depression Ass essment [facility] Start: 06-05-2021 COVID-19 Vaccine (4 - Booster for Moderna series) COVID-19 Vaccine (4 - Booster for Moderna series) [facility] Start: 06-05-2021 COVID-19 Vaccine (4 - Moderna series) COVID-19 Vaccine (4 - Moderna series) [facility] Start: 1997 DTaP/Tdap/Td Vaccine s (1 - Tdap) DTaP/Tdap/Td Vaccines (1 - Tdap) [facility] Start: 1997 Hepatitis B Vaccine (1 of 3 - 19+ 3-dose series) Hepatitis B Vaccine (1 of 3 - 19+ 3-dose series) [facility] Start: 1997 Hepatitis B Vaccines (1 of 3 - 19+ 3-dose series) Hepatitis B Vaccines (1 of 3 - 19+ 3-dose series) [facility] Start: 1997 Urine microalbumin profile DTaP,Tdap,Td Vaccine (1 - Tdap) [facility] Start: 1996 Anxiety Screening Anxiety Screening [facility] Start: 1996 Depression Screening Depression Scre [facility] Start: 1996 Hepatitis C screening Hepatitis C [facility] Start: 1996 Hepatitis C Screening Hepatitis C [facility] Start: 1996 HIV Screening HIV Screening [facility] Start: 1996 HIV screening HIV Screening [facility] Start: 1990 [facility] Hepatitis B Vaccine (1 of 3 - 3-dose series) Hepatitis B Vaccine (1 of 3 - 3-dose series) [facility] Start: 1978 Hepatitis B Vaccines (1 of 3 - 3-dose series) Hepatitis B Vaccines (1 of 3 - 3-dose series) [facility] Start: 1978 HIV screening HIV Screening [facility] Start: 1978 Screening for malign ant neoplasm of colon [facility] Bacteria identified in Urine by Culture BACTERIAL CULTURE, URINE Microbiology Routine Acute cystitis with hematuria Ordered: 09/27/2024 [facility] Work Phone: Comment on above: Ordered: 09/27/2024 OUTSIDE PROCEDURE SCAN OUTSIDE P ROCEDURE SCAN Procedures Ordered: 08/27/2022 [facility] Comment on above: Ordered: 08/27/2022 Patient Education [facility] Work Phone: Patient referral [facility] Work Phone: UA DIP, URINE (POC) UA DIP, URIN E (POC) Lab Routine Acute cystitis with hematuria Ordered: 09/27/2024 [facility] Comment on above: Ordered: 09/27/2024 Immunizations Immunization Date Immunization Notes Care Provider Kobi [facility] 03-26-2024 Seasonal, trivalent, recombinant, injectable influenza vaccine, preservative free Ramiro Rosa MD Work Phone: [facility] 02-07-2023 influenza, injectabl e, quadrivalent, contains preservative Milly Miller RN [facility] 02-07-2023 Seasonal, quadrivale nt, recombinant, injectable influenza vaccine, preservative free Puja D'Cecily [facility] 02-07-2023 influenza virus vacc ine, unspecified formulation Ramiro Rosa MD Work Phone: [facility] 02-23-2022 Influenza, injectabl e, Madin Marcela Canine Kidney, preservative free, quadrivalent Ramiro Rosa MD Work Phone: [facility] 02-23-2022 influenza virus vacc ine, unspecified formulation Ramiro Rosa MD Work Phone: [facility] 04-10-2021 Moderna SARS-CoV-2 Vaccination Ramiro Rosa MD Work Phone: [facility] 01-25-2021 influenza, injectabl e, quadrivalent, preservative free Ramiro Rosa MD Work Phone: [facility] 03-24-2020 Seasonal, quadrivale nt, recombinant, injectable influenza vaccine, preservative free Ramiro Rosa MD Work Phone: [facility] 02-11-2019 Influenza, injectabl e, Madin [place] Canine Kidney, preservative free, quadrivalent Ramiro Rosa MD Work Phone: [facility] 04-11-2018 influenza, seasonal, injectable Ramiro Rosa MD Work Phone: [facility] 04-10-2017 influenza, injectabl e, quadrivalent, contains preservative Ramiro Rosa MD Work Phone: [facility] 03-28-2016 influenza, injectabl e, quadrivalent, contains preservative Ramiro Rosa MD Work Phone: [facility] 03-08-2014 influenza, seasonal, injectable Ramiro Rosa MD Work Phone: [facility] 09-14-2013 measles, mumps and r ubella virus vaccine Ramiro Rosa MD Work Phone: [facility] 02-25-2009 influenza virus vacc ine, whole virus Ramiro Rosa MD Work Phone: [facility] Payers Date Payer Category Payer Self-pay [id number] 2017 Medicaid [id number] 2009 Medicaid [id number] Unknown [id number] [id number] Unknown [id number] 2.16.8 [id number] Unknown [id number] 2.16.8 [id number] Unknown [id number] 2.16.8 [id number] Unknown [id number] 2.16.8 [id number] Unknown [id number] 2.16.8 [id number] Unknown [id number] 2.16.8 [id number] Unknown [id number] 16.8 [id number] Social History Date Type Detail Facility Start: 02-19-2022 End: 05-29-2023 Tobacco smoking status NHIS Unknown if ever smoked [facility] Start: 03-02-2021 None [facility] Start: 03-02-2021 Non-smoker [facility] Start: 1980 Sex Assigned At Male W [facility] Start: 12-16-2023 End: 10-08-2024 Tobacco smoking status MSIS Never smoked tobacco [facility] Start: 04-19-2022 End: 04-20-2024 Alcohol intake Current non-drinker of alcohol (finding) [facility] Start: 1980 Sex Assigned At Not on file [facility] Start: 04-09-2022 End: 08-27-2022 Exposure to SARS-CoV-2 (event) Not sure [facility] Start: 08-18-2020 End: 08-27-2022 History of Social function [facility] Start: 08-18-2020 End: 08-27-2022 Tobacco use panel [facility] Start: 10-08-2022 End: 10-18-2022 Exposure to SARS-CoV-2 (event) Yes [facility] National Score (1-100), lower number is lower risk Not on file [facility] (I/We) worried [facility] (my/our) food would run out before (I/we) got money to buy more. Never true [facility] In the past 12 month s, was there a time when you were not able to pay the mortgage or rent on time? No [facility] Are you now , , , , never or living with a partner? Never [facility] Do you feel stress - tense, restless, nervous, or anxious, or unable to sleep at night because your mind is troubled all the time - these days [OSQ] Only a little [facility] Start: 12-04-2021 End: 07-09-2024 Sex Male (finding) [facility] How often do you nee d to have someone help you when you read instructions, pamphlets, or other written material from your doctor or pharmacy [SILS] Always [facility] Start: 10-08-2024 Tobacco use and exposure Smokeless tobacco non-user [facility] Goals Date Patient Goal Desired Activity /State Functional Status Date Assessment Result Facility 10-09-2024 Functional status Bathroom Privi lege;Back to bed [facility] Work Phone: Mental Status Date Assessment Result Facility 10-09-2024 Cognitive function Level Of Cons ciousness Awake;Alert;Appropriate [facility] Work Phone: 10-09-2024 Cognitive function Voice/Name [facility] Work Phone: 10-09-2024 Cognitive function Cooperative;Anxious [facility] Work Phone: 04-17-2022 Cognitive function Level Of Cons ciousness Awake;Alert;Appropriate;Follow s Commands [facility] Work Phone: Clinical Notes 05-04-2022 to 10-09-2024 Note Date & Type Note Facility 10-09-2024 Consult note [facility] 10-09-2024 Consult note [facility] 10-09-2024 Discharge summary [facility] 10-09-2024 Note [facility] Medical Records Department [address] [place] [address] Discharge Summary 10/09/24 1608 MR#: [id number] Acct: [id number] Name: CHAN BURCIAGA Rep #: [id number] : 1980 43 From: Austin Mares MD PCP: Dr. Ramiro Rosa MD Status:ADM IN [id number] Providers Date of Admission: 10/08/24 Primary Care Physician: Dr. Ramiro Rosa MD Consultations 10/08/24 21:21 Consult: Urology Routine Consulting Provider: Salvador Rush Reason for Consult: Obstructive nephrolithiasis, hydronephrosis EMERGENT Consult: No MD Notified: Yes Date Notified: 10/08/24 Time Notified: 20:04 Method of Notification: ED Physician Initiated Reason For Visit: NEPHROLITHIASIS, OBSTRUCTIVE WITH HYDRONEPHROSIS Diagnosis Discharge Diagnosis (1) Kidney stone on left side: Status: Acute Code(s): N20.0 - Calculus of kidney Medications at Discharge Home Medications fenofibrate nanocrystallized 145 mg tablet 145 mg PO DAILY 07/08/18 folic acid 400 mcg tablet 0.4 mg PO DAILY@0800 07/08/18 garlic 200 mg tablet 350 mg PO DAILY 07/08/18 loratadine 10 mg capsule (Claritin Liqui-Gel) 10 mg PO DAILY 07/08/18 omega-3 fatty acids-fish oil 340 mg-1,000 mg capsule (Fish Oil) 3 ea PO DAILY 07/08/18 ammonium lactate 12 % topical cream 1 applic topical DAILY 05/29/23 atorvastatin 40 mg tablet 40 mg PO DAILY 05/29/23 clonidine HCl 0.2 mg tablet 0.2 mg PO BID 05/29/23 doxazosin 2 mg tablet 2 mg PO QHS 05/29/23 fluticasone propionate 50 mcg/actuation nasal spray,suspension (Allergy Relief (fluticasone)) 2 spray intranasal DAILY 05/29/23 losartan 100 mg tablet 100 mg PO DAILY 05/29/23 multivitamin-ferrous fumarate-folic acid 18 mg-400 mcg tablet (Certavite-Antioxidant) 1 tab PO DAILY 05/29/23 nabumetone 500 mg tablet 500 mg PO BID PRN pain 05/29/23 quetiapine 150 mg tablet,extended release 24 hr 150 mg PO 1600 05/29/23 neomycin-bacitracn Zn-polymyx 3.5 mg-400 unit-5,000 unit/gram top oint (Neosporin (iyy-gam-mlmns)) 1 applic topical TID PRN dry skin 11/05/23 oxcarbazepine 600 mg tablet 600 mg PO BID 11/05/23 polyethylene glycol 3350 17 gram/dose oral powder (Miralax) 238 g PO ONCE Colonoscopy prep #238 grams 11/12/23 oxycodone 5 mg tablet 5 mg PO Q4H PRN PRN Pain Score 4-10 3 days #10 tabs 10/09/24 Hospital Course Operations - (Cystoscopy with left ureteral stent) Procedures None Summary of Care Provided Minutes Spent on Discharge: 32 Hospital Course: Per HPI: The patient is a 43 y/o M w/ intellectual debilities living in a mcc w/ PMHx: CKD stage II per GFR trending, HTN, HLD, Anxiety and Depression/Mood disorder, Obesity who presents to the [facility] ED on 10/08/24 with history of abdominal pain with no associated nausea or emesis but persistent described primarily in the back/flank and periumbilical region with history of previous kidney stones noting that the discomfort in the back/flank is been ongoing for at least 5 days sent to the urgent care initially referred to the ED given concern for possible UTI and antibiotic needs with no fevers or chills. Patient currently notes pain is improved after morphine but discussion with patient and mcc staff he rates his discomfort previously potentially 7-8 out of 10 in severity and more in the back/flank. Workup in the ED included T97.6, heart rate 101, BP 141/94, respiratory rate 16, percent room air with most recent repeat vital signs T98, heart rate 96, BP 149/90, respiratory rate 18, 97% on room air, CBC with WBC 13.8, hemoglobin 13.7, platelet 327 with left shift, CMP with come back side 19.3, BUN/creatinine 18/1.32, GFR 68, glucose 100, AST/LT 51/66, urinalysis with no obvious overt UTI but pending urine RBC/WBC/squamous epithelial cells/urine bacteria, CT abdomen and pelvis with a 9 mm obstructive stone at the distal left ureter with associated upstream moderate hydroureteronephrosis with multiple urinary bladder stones, mild thickening of the urinary bladder wall reflective of possible cystitis versus partial nondistention with an enlarged prostate with abutment into the urinary bladder wall. In the ED patient ministered Zofran 4 mg IV x 2, morphine 4 mg IV x 1, morphine 6 mg IV x 1, Toradol 30 mg IV x 1. ED discussed case with urology. Hospital Course: 1. Left ureteral stone???43-year-old male who resides in a mcc secondary to intellectual debilities presents to the hospital with abdominal pain and left flank pain. He was to have a left ureteral stone. The pain going on for about 5 days so urology was consulted and had a cystoscopy today with a left ureteral stent. He will need to follow-up as an outpatient with urology for definitive laser lithotripsy. He did tolerate the procedure well and there is no signs of UTI within normal white blood cell count, and an unimpressive, at least from an infectious standpoin (more content not included)... [facility] 10-09-2024 Discharge summary [facility] 10-09-2024 Consult note Note Date/Time October 09, 2024 4:25pm [facility] Medical Records Department [address] [place] [address] Anesthesia Postop Eval II 10/09/24 1338 MR#: [id number] Acct: [id number] Name: CHAN BURCIAGA Rep #:[id number] : 1980 43 From: Sandro Julian MD PCP: Dr. Ramiro Rosa MD Status:ADM IN Y Race: C Location: [facility] Postop Eval I Sum Postop Eval Completion status Anesthesia document: Postop Eval 1 completed: Yes Anesthesia Postop Eval I Summary Anesthesia Postop Eval I Summary: Anesthesia Postop Eval I: Assessment Summary Airway patent Yes 10/09/24 13:03 AIR CONDITIONING UNIT [email or web address] Spontaneous unlabored Yes 10/09/24 13:03 AIR CONDITIONING UNIT [email or web address] respirations Mental status Awake,Calm 10/09/24 13:03 AIR CONDITIONING UNIT [email or web address] nausea No 10/09/24 13:03 AIR CONDITIONING UNIT [email or web address] Vomiting No 10/09/24 13:03 AIR CONDITIONING UNIT [email or web address] Anesthesia Postop Eval I: Fluid Summary Crystalloid volume administer 500 10/09/24 13:03 AIR CONDITIONING UNIT [email or web address] (ml) Colloids volume administered ( ml) Blood Product volume administered (ml) Total IV fluid infused 500 10/09/24 13:03 AIR CONDITIONING UNIT [email or web address] Anesthesia Postop Eval I: Summary Notes Anesthesia Complication No 10/09/24 13:03 AIR CONDITIONING UNIT [email or web address] Anesthesia Complication Comment: Post-operative progress note Anesthesia: Postop Eval II Evaluation Mental status: Awake Pain Level: 0 nausea: No Vomiting: No 10/09/24 1338 <Electronically signed by Sandro Julian MD > Date _ Sandro Julian MD Cosigner Signature: Date CC: ~ Signed [facility] Work Phone: 1(175) 610-849406-06-2025 Consult note Author Jeevan Madden [facility] Note Date/Time October 09, 2024 1:03p [facility] Medical Records Department [address] [place] [address] Anesthesia Postop Eval I 10/09/24 1302 MR#: [id number] Acct: [id number] Name: CHAN BURCIAGA Rep #:[id number] : 1980 43 From: Jeevan LUNDBERG PCP: Dr. Ramiro Rosa MD Status:ADM IN Y Race: C Location: [place] [address] Anesthesia: Postop Eval I Current Vital Signs Temperature: 97.3 F Pulse Rate: 87 Blood Pressure: 126/78 Respiratory Rate: 16 Pulse Ox: 93 Oxygen Delivery Method: Nasal Cannula Oxygen Flow Rate (L/min): 3 Assessment Airway patent: Yes Spontaneous unlabored respirations: Yes Mental status: Awake and Calm nausea: No Vomiting: No Anesthesia Complication: No Fluid Hydration Crystalloid volume administer (ml): 500 Total IV fluid infused: 500 Progress Note Anesthesia document: Postop Eval 1 completed: Yes 10/09/24 1303 <Electronically signed by Jeevan Madden CRNA> Date _ Jeevan Madden CRNA Cosigner Signature: Date CC: ~ Signed [facility] Work Phone: 1(563) 113-744106-06-2025 Consult note Author Sandro Julian [facility] Note Date/Time October 09, 2024 4:25p [facility] Medical Records Department [address] [facility] [place] [address] Pre-Anesthesia Evaluation 10/09/24 1214 MR#: [id number] Acct: [id number] Name: CHAN BURCIAGA Rep #:[id number] : 1980 43 From: Sandro Julian MD PCP: Dr. Ramiro Rosa MD Status:ADM IN Y Race: C Location: MS3 MS308 -1 ASA Classification* ASA Classification ASA Classification: 3 and E Assessment & Plan Anesthesia* Anesthesia Assessment Anesthesia Assessment: Discussed sedation and/or anesthesia options, risks, benefits, and alternatives with patient/parents/legal guardian/POA. Questions invited. The patient/parents/legal guardian/POA seems to understand and agrees to proceedwith anesthesia plan. Reviewed the physical assessment, medical history, allergy history and patient home medications list prior to surgery/procedure/anesthetic and documented any changes. Performed airway and anesthesia risk assessments. Anesthesia Type Anesthesia Type: MAC Anesthesia Focused Assessment* Temperature: 97.8 F Pulse Rate: 87 Blood Pressure: 156/81 Respiratory Rate: 16 Pulse Ox: 95 Airway Assessment Mouth opens: >3 cm Mallampati Score: II Labs Anesthesia Preop lab: CBC WBC 9.1 K/mm3 (4.4-11.0) 10/09/24 05:03 10/09/24 RBC 4.41 M/mm3 (4.6-6.2) L 10/09/24 05:03 10/09/24 Hgb 12.7 g/dL (13.0-16.5) L 10/09/24 05:03 5 Hct 38.1 % (40-54) L 10/09/24 05:03 10/09/24 Plt Count 332 K/mm3 (150-450) 10/09/24 05:03 10/09/24 CHEMISTRY Potassium 3.8 mmol/L (3.3-5.1) 10/09/24 05:03 10/09/24 Sodium 137 mmol/L (133-145) 10/09/24 05:03 10/09/24 BUN 17 mg/dL (4-19) 10/09/24 05:03 10/09/24 Creatinine 1.39 mg/dL (0.70-1.20) H 10/09/24 05:03 Glucose 100 mg/dL (70-99) H 10/09/24 05:03 10/09/24 COAG Pre-Assessment Diagnosis/Proposed Procedure Planned Operative Procedure(s): Cystoscopy ureteral stent placement. Anesthesia History Anesthesia History - change of address clerk: Anesthesia History - change of address clerk Hx Hospitalization No 12/16/23 15:36 Any Problems With Anesthesia No 12/16/23 15:36 Cholinesterase deficiency No 12/16/23 15:36 You/Your Family Experience No 12/16/23 15:36 fever (hyperthermia) with Relationship Recent Exposure to Contagious No 12/19/23 09:20 Disease Does patient have nerve No 12/16/23 15:36 stimulator Patient instructed to have device shut off --Does patient have Pacemaker No 10/09/24 10:19 or ICD? When Was Last Pacemaker Check QUESTION #4 FULL TEXT: You/Your Family Experience fever (hyperthermia) with Anesthesia Last Oral Intake Last Oral intake: Last Oral Intake NPO since 00:00 10/09/24 10:19 Meds taken in AM with sips of No 10/09/24 10:19 water? Meds patient instructed to take am of surgery PONV PONV - change of address clerk: PONV - change of address clerk Female HX of Motion Sickness HX of N/V After Surgery Non-Smoker Duration of Surgery greater than 60 minutes Number of Risk Factors PONV Score Height & Weight Height & Weight: Anesthesia: Height & Weight Height 5 ft 4.96 in 10/09/24 10:19 Weight: 86 kg 10/09/24 10:19 Body Mass Index (BMI) 31.6 10/09/24 10:19 Respiratory Assessment Respiratory Assessment - change of address clerk: Respiratory Tract Infection Hx - change of address clerk Hx Respiratory Tract Infection No 12/16/23 15:36 STOP Sleep Apnea STOP Sleep Apnea - change of address clerk: STOP Sleep Apnea - change of address clerk Hx Hypertension Yes: CONTROLLED WITH MED 10/08/24 21:22 Hx Sleep Apnea No 10/08/24 21:22 CPAP BIPAP Do you snore loudly (louder Yes 10/08/24 21:22 than talking or can be heard Do you often feel tired/ Yes 10/08/24 21:22 fatigued/ sleepy during daytime? Has anyone observed you stop No 10/08/24 21:22 breathing during sleep? STOP Results Positive 10/08/24 21:22 QUESTION #5 FULL TEXT : Do you snore loudly (louder than talking or can be heard through closed doors)? 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 Specify any problems Hx of Preganancy in last 3 N/A 10/08/24 21:22 Months Nurse Filling Out Transfusion [email or web address] 10/08/24 21:22 & Questions: Date: 10/08/24 10/08/24 21:22 Time: :10/08/24 21:22 Patient unable to answer at this time (ie. confused, unrespo /Reproduction History /Reproductive History - change of address clerk: /Reproductive Hx- change of address clerk Hx Now Gestational Age (in weeks): EDC: Hx Hx Para Hx Section SAB No 12/16/23 15:36 Active Medications Active Medications: Current Medications Generic Name Dose Route Start Last Admin Trade Name Freq PRN Reason Stop Dose Admin Acetaminophen 650 mg 10/08/24 21:21 10/08/24 22:02 Acetaminophen 325 Mg Tablet PO 650 mg Q4H PRN PRN Administration Fever, pain 1-10 Al Hydroxide/Mg Hydroxide 30 ml 10/08/24 21:21 Mag Hydrox/Al Hydrox/Simeth 30 Ml Udc PO Q6H PRN PRN Gastric Burning Albuterol Sulfate 2.5 mg 10/08/24 21:21 Albuterol 2.5 Mg/3 Ml Vial.Neb. INHALATION Q2H PRN PRN Dyspnea, wheezing Atorvastatin Calcium 40 mg 10/08/24 22:00 10/08/24 22:03 Atorvastatin Calcium 40 Mg Tablet PO 40 mg 2200 VIDHI Administration Clonidine 0.2 mg 10/08/24 22:00 10/08/24 22:03 Clonidine Hcl 0.2 Mg Tablet PO 0.2 mg BID VIDHI Administration Protocol Doxazosin Mesylate 2 mg 10/08/24 22:00 10/08/24 22:03 Doxazosin 1 Mg Tablet PO 2 mg QHS VIDHI Administration Famotidine 20 mg 10/08/24 22:00 10/08/24 22:04 Famotidine 20 Mg Tablet PO 20 mg BID VIDHI Administration Fenofibrate 145 mg 10/09/24 10:00 Fenofibrate 145 Mg Tablet PO DAILY [facility] Fluticasone Propionate 2 spray 10/09/24 10:00 Fluticasone 0.05% 1 [place] Nasal.Sry NASAL DAILY [facility] Guaifenesin 20 ml 10/08/24 21:21 10/09/24 03:46 Guaifenesin 10 Ml Udc (200mg/10ml) PO 20 ml Q4H PRN PRN Administration COUGH Hydralazine HCl 10 mg 10/08/24 21:21 Hydralazine 20 Mg/Ml Vial IV Q4H PRN PRN SBP > 160 Protocol Sodium Chloride 250 mls @ 15 mls/hr 10/08/24 21:42 IV .[id number] PRN Saline Flush Sodium Chloride 250 mls @ 15 mls/hr 10/08/24 21:42 IV .[id number] PRN Additional IVPB Infusion Cefazolin Sodium 2 gm/ Sodium 110 mls @ 150 mls/hr 10/09/24 12:04 Chloride IV 10/09/24 12:47 X1 ONE Ketorolac Tromethamine 15 mg 10/08/24 21:21 Ketorolac 15 Mg/Ml Vial IV 10/13/24 21:21 Q6H PRN PRN Pain Score 1-10 Lactic Acid 1 applic 10/09/24 10:00 Ammonium Lactate 225 Gm Bottle TOPICAL DAILY [facility] Loratadine 10 mg 10/09/24 10:00 Loratadine 10 Mg Tablet PO DAILY [facility] Losartan Potassium 100 mg 10/09/24 10:00 Losartan Potassium 100 Mg Tablet PO DAILY [facility] Protocol Melatonin 3 mg 10/08/24 21:21 Melatonin 3 Mg Tablet PO QHS PRN PRN INSOMNIA Morphine Sulfate 4 mg 10/08/24 21:21 10/09/24 03:45 Morphine 4 Mg/Ml Syringe IV 4 mg Q3H PRN PRN Administration Pain Score 6-10 Ondansetron HCl 4 mg 10/08/24 21:21 Ondansetron 4 Mg/2 Ml Vial IV Q8H PRN PRN NAUSEA/VOMITING Oxcarbazepine 600 mg 10/08/24 22:00 10/08/24 22:04 Oxcarbazepine 600 Mg Tablet PO 600 mg BID VIDHI Administration Oxycodone HCl 5 mg 10/08/24 21:21 10/09/24 01:00 Oxycodone 5 Mg Tablet PO 5 mg Q4H PRN PRN Administration Pain Score 4-10 Prochlorperazine Edisylate 5 mg 10/08/24 21:21 Prochlorperazine 10 Mg/2 Ml Vial IV Q4H PRN PRN Breakthrough nausea/vomiting Quetiapine Fumarate 100 mg 10/09/24 16:00 Quetiapine 100 Mg Tablet PO 1600 VIDHI Quetiapine Fumarate 50 mg 10/09/24 16:00 Quetiapine 25 Mg Tablet PO 1600 VIDHI Senna/Docusate Sodium 2 tablet 10/08/24 21:21 Senna/Docusate Sodium 1 Tablet PO BID PRN PRN Constipation Sodium Chloride 10 - 40 ml 10/08/24 21:42 10/09/24 03:45 0.9% Saline Lock 10 Ml Syringe IV 10 ml UD PRN Administration SALINE FLUSH PFSH Medical History Lives in [facility] Arthritis Back pain Non-smoker Shortness of breath on exertion Intellectual disability Recurrent major depression in full remission Hyperlipidemia Essential hypertension Urinary tract infection with hematuria Home Medications ?Medication ?Instructions ?Recorded ?Last Taken ?Type fenofibrate nanocrystallized 145 145 mg PO DAILY 07/0812/18/23 History mg tablet folic acid 400 mcg tablet 0.4 mg PO DAILY@0800 9 12/18/23 History garlic 200 mg tablet 350 mg PO DAILY 07/08/18 History loratadine 10 mg capsule (Claritin 10 mg PO DAILY 09/2112/18/23 History Liqui-Gel) omega-3 fatty acids-fish oil 340 3 ea PO DAILY 9 12/15/23 History mg-1,000 mg capsule (Fish Oil) ammonium lactate 12 % topical cream 1 applic topical D AILY 05/29/23 12/18/23 History atorvastatin 40 mg tablet 40 mg PO DAILY 05/29/2312/04 History clonidine HCl 0.2 mg tablet 0.2 mg PO BID 05/29/23 06:30 History doxazosin 2 mg tablet 2 mg PO QHS 05/29/23 4 History fluticasone propionate 50 2 spray intranasal DAILY 12/18/23 History mcg/actuation nasal spray,suspension (Allergy Relief (fluticasone)) losartan 100 mg tablet 100 mg PO DAILY 05/29/23 06:30 History multivitamin-ferrous 1 tab PO DAILY 05/29/2312/04 History fumarate-folic acid 18 mg-400 mcg tablet (Certavite-Antioxidant) nabumetone 500 mg tablet 500 mg PO BID PRN pain 05/29 Unknown History quetiapine 150 mg tablet,extended 150 mg PO 1600 05/2912/18/23 History release 24 hr neomycin-bacitracn Zn-polymyx 3.5 1 applic topical TID PRN dry skin 11/05/23 Unknown History mg-400 unit-5,000 unit/gram top oint (Neosporin (shs-mwf-cbygu)) oxcarbazepine 600 mg tablet 600 mg PO BID 11/05/23 06:30 History polyethylene glycol 3350 17 238 g PO ONCE Colonoscopy prep 11/12/23 12/19/23 Rx gram/dose oral powder (Miralax) #238 grams Allergy/AdvReac Type Severity Reaction Status Date / Time risperidone (From Risperdal) Allergy ANXIETY Verified 10/08/24 16:53 Family History Mother Hyperlipidemia Father Hyperlipidemia Surgical History Hx of cystoscopy History of testicular surgery History of ankle surgery Social History household members: other details: Lives with others in residential home number of children: 0 Smoking Status: Never smoker alcohol intake: never substance use type: does not use Review of Systems (Anesthesia) ROS Narrative System reviewed and no additional complaints, except as documented. 10/09/24 1214 <Electronically signed by Sandro Julian MD > Date _ Sandro Julian MD Cosign Signature: Date CC: ~ Signed [facility] Work Phone: 1(852) 848-659906-06-2025 Consult note Author Salvador Rush [facility] Note Date/Time October 09, 2024 12:10 pm [facility] Medical Records Department [address] [place] [address] Consultation - Urology 10/09/24 1139 MR#: [id number] Acct: [id number] Name: CHAN BURCIAGA Rep #:[id number] : 1980 43 From: Salvador Rush MD PCP: Dr. Ramiro Rosa MD Status:ADM IN Location: [facility] [place] FI249-4 HPI Consult Data Date of Consult: 10/09/24 HPI Narrative Reason for Consultation: BPH with obstruction, bladder stones, and left kidney stone HPI Narrative: CHAN BURCIAGA, is a 43 M who presentswith abdominal pain CAT scan was done demonstrated stone and obstructing the left kidney plan to do a cystoscopy left stent placement today he also has multiple stones his bladder he does have significant BPH with obstruction a very large prostate. At this point were to dothis place a stent to alleviate obstruction and what the deal with the other stones and of the findings a separate setting once everything stable. [facility] Medical History Lives in [facility] Arthritis Back pain Non-smoker Shortness of breath on exertion Intellectual disability Recurrent major depression in full remission Hyperlipidemia Essential hypertension Urinary tract infection with hematuria Home Medications ?Medication ?Instructions ?Recorded ?Last Taken ?Type fenofibrate nanocrystallized 145 145 mg PO DAILY 07/0812/18/23 History mg tablet folic acid 400 mcg tablet 0.4 mg PO DAILY@0800 9 12/18/23 History garlic 200 mg tablet 350 mg PO DAILY 07/08/18 History loratadine 10 mg capsule (Claritin 10 mg PO DAILY 0309/2112/18/23 History Liqui-Gel) omega-3 fatty acids-fish oil 340 3 ea PO DAILY 9 12/15/23 History mg-1,000 mg capsule (Fish Oil) ammonium lactate 12 % topical cream 1 applic topical D AILY 05/29/23 12/18/23 History atorvastatin 40 mg tablet 40 mg PO DAILY 05/29/2312/04 History clonidine HCl 0.2 mg tablet 0.2 mg PO BID 05/29/23 06:30 History doxazosin 2 mg tablet 2 mg PO QHS 05/29/23 4 History fluticasone propionate 50 2 spray intranasal DAILY 12/18/23 History mcg/actuation nasal spray,suspension (Allergy Relief (fluticasone)) losartan 100 mg tablet 100 mg PO DAILY 05/29/23 06:30 History multivitamin-ferrous 1 tab PO DAILY 05/29/2312/04 History fumarate-folic acid 18 mg-400 mcg tablet (Certavite-Antioxidant) nabumetone 500 mg tablet 500 mg PO BID PRN pain 05/29 Unknown History quetiapine 150 mg tablet,extended 150 mg PO 1600 05/2912/18/23 History release 24 hr neomycin-bacitracn Zn-polymyx 3.5 1 applic topical TID PRN dry skin 11/05/23 Unknown History mg-400 unit-5,000 unit/gram top oint (Neosporin (gce-fdt-fubsy)) oxcarbazepine 600 mg tablet 600 mg PO BID 11/05/23 06:30 History polyethylene glycol 3350 17 238 g PO ONCE Colonoscopy prep 11/12/23 12/19/23 Rx gram/dose oral powder (Miralax) #238 grams Allergy/AdvReac Type Severity Reaction Status Date / Time risperidone (From Risperdal) Allergy ANXIETY Verified 10/08/24 16:53 Family History (Updated 10/08/24 @ 20:[address] Yamileth Aguirre MD) Mother Hyperlipidemia Father Hyperlipidemia Surgical History Hx of cystoscopy History of testicular surgery History of ankle surgery Social History household members: other details: Lives with others in residential home number of children: 0 Smoking Status: Never smoker alcohol intake: never substance use type: does not use Lab / Micro Data 10/09/24 05:03 10/09/24 05:03 Labs: Laboratory Results - last 24 hr 10/08/24 17:17: WBC 13.8 H, RBC 4.73, Hgb 13.7, Hct 40.6, MCV 85.8, MCH 29.0, MCHC 33.7, RDW Std Deviation 41.9, RDW Coeff of Jaime 13.4, Plt Count 327, MPV 9.0, Immature Gran % (Auto) 0.700, Neut % (Auto) 68.7, Lymph % (Auto) 19.2, [place]% (Auto) 8.0, Eos % (Auto) 2.9, Baso % (Auto) 0.5, Absolute Neuts (auto) 9.5 H, Absolute Lymphs (auto) 2.64, Nucleated RBC % 0, Sodium 135, Potassium 4.0, Chloride 101, Carbon Dioxide 19.3 L, Anion Gap 15, BUN 18, Creatinine 1.32 H, Estim Creat Clear Calc 72.57, Est GFR (MDRD) Non-Af 68, BUN/Creatinine Ratio 13.4, Glucose 100 H, Calcium 9.9, Total Bilirubin 0.33, AST 51 H, ALT 66 H, Alkaline Phosphatase 75, Total Protein 7.1, Albumin 4.4, Globulin 2.7, Albumin/Globulin Ratio 1.6 10/08/24 18:31: Urine Color Yellow, Urine Clarity Cloudy, Urine pH 7.0, Ur Specific [place] 1.010, Urine Protein 30 H, Urine Glucose (UA) Normal, Urine Ketones Negative, Urine Occult Blood 250 H, Urine Nitrite Negative, Urine Bilirubin Negative, Urine Urobilinogen Normal, Ur Leukocyte Esterase 25 H, UrineRBC > 100 SEEN, Urine WBC 0 SEEN, Ur Squamous Epith Cells 0 SEEN, Urine Bacteria2+, Urine Mucus 0 SEEN 10/09/24 05:03: WBC 9.1, RBC 4.41 L, Hgb 12.7 L, Hct 38.1 L, MCV 86.4, MCH 28.8,MCHC 33.3, RDW Std Deviation 42.9, RDW Coeff of Jaime 13.7, Plt Count 332, MPV 8.8, Immature Gran % (Auto) 0.300, Neut % (Auto) 53.3, Lymph % (Auto) 31.8, [place]% (Auto) 8.4, Eos % (Auto) 5.5 H, Baso % (Auto) 0.7, Absolute Neuts (auto) 4.9, Absolute Lymphs (auto) 2.90, Nucleated RBC % 0, Sodium 137, Potassium 3.8, Chloride 104, Carbon Dioxide 21.2, Anion Gap 12, BUN 17, Creatinine 1.39 H, Estim Creat Clear Calc 67.68, Est GFR (MDRD) Non-Af 64, BUN/Creatinine Ratio 12.4, Glucose 100 H, Calcium 9.1, Total Bilirubin 0.38, AST 40 H, ALT 55 H, Alkaline Phosphatase 67, Total Protein 6.2, Albumin 3.9, Globulin 2.2, Albumin/Globulin Ratio 1.8 Imaging Radiology Impression Abdomen/Pelvis CT 10/08/24 17:09 IMPRESSION: 9 mm obstructive stone at the distal left ureter with associated upstream moderate hydroureteronephrosis. Multiple urinary bladder stones are noted. Mild thickening of the urinary bladder wall which may reflect cystitis versus partial nondistention; consider correlation with urinalysis. Enlarged prostate with abutment onto the urinary bladder wall. Reading Location: [facility] 10/09/24 1140 <Electronically signed by Salvador Rush MD> Cosigner Signature (if applicable): CC: Dr. Ramiro Rosa MD~ Signed ADDENDUM by Dr. Salvador Rush MD on 10/09/24 at 1210 Addendum 43-year-old male with obstructing stone we are unable to get a hold of family orguardian, the patient is agreeable with having the procedure done for cystoscopyand stent placement we had to Drs. Review his chart myself and Dr. Julian and tyreeeed that surgical intervention with an emergency stent is appropriate to unblock his kidney clear of any infection plus the patient has given assent. 10/09/24 1210<Electronically signed by Salvador Rush MD> Cosigner Signature (if applicable): cc: Dr. Ramiro Rosa MD ~* Signed [facility] Work Phone: 1(767) 254-487706-06-2025 Consult note [facility] Medical Records Department [address] [place] [address] Anesthesia Postop Eval I 10/09/24 1302 MR#: [id number] Acct: [id number] Name: CHAN BURCIAGA Rep #:[id number] : 1980 43 From: Jeevan LUNDBERG PCP: Dr. Ramiro Rosa MD Status:ADM IN Y Race: C Location: [place] [address] Anesthesia: Postop Eval I Current Vital Signs Temperature: 97.3 F Pulse Rate: 87 Blood Pressure: 126/78 Respiratory Rate: 16 Pulse Ox: 93 Oxygen Delivery Method: Nasal Cannula Oxygen Flow Rate (L/min): 3 Assessment Airway patent: Yes Spontaneous unlabored respirations: Yes Mental status: Awake and Calm nausea: No Vomiting: No Anesthesia Complication: No Fluid Hydration Crystalloid volume administer (ml): 500 Total IV fluid infused: 500 Progress Note Anesthesia document: Postop Eval 1 completed: Yes 10/09/24 1303 [employer] CONDITIONING UNIT [employer]SEMBLER> Date _ Jeevan Madden AIR CONDITIONING UNIT ASSEMBLER Cosigner Signature: Date CC: ~ Signed [facility]06-06-2025 Procedure note [facility] Medical Records Department [address] [place] [address] Operative Report 10/09/24 1246 MR#: [id number] Acct: [id number] Name: CHAN BURCIAGA Rep #:[id number] : 1980 43 From: Salvador Rush MD PCP: Dr. Ramiro Rosa MD Status:ADM IN [facility] (Standard[facility] Operative Information Date of Procedure: 10/09/24 Pre-Operative Diagnosis: Left obstructing kidney stone Post-Operative Diagnosis: Same Surgery/Procedure Performed: Cystoscopy and left stent placement correction officer supervisor: No Type of Anesthesia: General RN Documented Start/Stop Times: Operation Date: 10/09/24 08:00 Case Time Into Pre-Op 10/09/24 11:35 Into Room 10/09/24 12:26 Anesthesia Start 10/09/24 12:31 Procedure Start 10/09/24 12:42 Procedure End 10/09/24 12:46 Procedure Start Time: 12:42 Procedure Stop Time: 12:46 Select all DRAINS/GRAFTS/IMPLANTS that apply: None and Drains Drain details: left stent Estimated Blood Loss: None Specimen collected: No Description of surgery: Patient was taken back to the operating room after smooth induction of anesthesia he was placed in dorsolithotomy position. One of the bladder with a 21 [place] rigid cystourethroscope found that he had a very large obstructive prostate very large median lobe a bunch of stones in the base of his bladder did not plan to do anything at this point with this but significant findings that heis going tohave the stones lasered out at some point in the future and also we need to have surgery on his prostate from such a large obstructing prostate. Chandan have a large stone blocking his left kidney so wire was put up in the left kidney and we placed a stent to the left side to allow the kidney to drain and allow the ureter to dilate for anticipation for laser lithotripsy in the future. Patient acetic was a reversed thing back to the PACU good condition and we willset him up for outpatient surgery to laser the stone. Surgical Findings: Stent placement a left-sided en bloc kidney Complications Complications: No Admit VTE Documentation VTE Present on Admission: No VTE Mechan Device Prophylaxis: SCD's VTE Pharm Prophylaxis ordered?: No 10/09/24 1248 Cosigner Signature (if applicable): CC: Dr. Yamileth Aguirre MD; Dr. Ramiro Rosa MD; Dr. Salvador Rush MD~ Signed [facility]06-06-2025 Consult note [facility] Medical Records Department [address] [place] [address] Consultation - Urology 10/09/24 1139 MR#: [id number] Acct: [id number] Name: CHAN BURCIAGA Rep #:[id number] : 1980 43 From: Salvador Rush MD PCP: Dr. Ramiro Rosa MD Status:ADM IN Location: [facility] FI477-9 HPI Consult Data Date of Consult: 10/09/24 HPI Narrative Reason for Consultation: BPH with obstruction, bladder stones, and left kidney stone HPI Narrative: CHAN BURCIAGA, is a 43 M who presentswith abdominal pain CAT scan was done demonstrated stone and obstructing the left kidney plan to do a cystoscopy left stent placement today he also has multiple stones his bladder he does have significant BPH with obstruction a very large prostate. At this point were to dothis place a stent to alleviate obstruction and what the deal with the other stones and of the findings a separate setting once everything stable. [facility] Medical History Lives in [facility] Arthritis Back pain Non-smoker Shortness of breath on exertion Intellectual disability Recurrent major depression in full remission Hyperlipidemia Essential hypertension Urinary tract infection with hematuria Home Medications ?Medication ?Instructions ?Recorded ?Last Taken ?Type fenofibrate nanocrystallized 145 145 mg PO DAILY 07/0812/18/23 History mg tablet folic acid 400 mcg tablet 0.4 mg PO DAILY@0800 9 12/18/23 History garlic 200 mg tablet 350 mg PO DAILY 07/08/18 History loratadine 10 mg capsule (Claritin 10 mg PO DAILY 09/2112/18/23 History Liqui-Gel) omega-3 fatty acids-fish oil 340 3 ea PO DAILY 9 12/15/23 History mg-1,000 mg capsule (Fish Oil) ammonium lactate 12 % topical cream 1 applic topical D AILY 05/29/23 12/18/23 History atorvastatin 40 mg tablet 40 mg PO DAILY 05/29/2312/04 History clonidine HCl 0.2 mg tablet 0.2 mg PO BID 05/29/23 06:30 History doxazosin 2 mg tablet 2 mg PO QHS 05/29/23 4 History fluticasone propionate 50 2 spray intranasal DAILY 12/18/23 History mcg/actuation nasal spray,suspension (Allergy Relief (fluticasone)) losartan 100 mg tablet 100 mg PO DAILY 05/29/23 06:30 History multivitamin-ferrous 1 tab PO DAILY 05/29/2312/04 History fumarate-folic acid 18 mg-400 mcg tablet (Certavite-Antioxidant) nabumetone 500 mg tablet 500 mg PO BID PRN pain 05/29 Unknown History quetiapine 150 mg tablet,extended 150 mg PO 1600 05/2912/18/23 History release 24 hr neomycin-bacitracn Zn-polymyx 3.5 1 applic topical TID PRN dry skin 11/05/23 Unknown History mg-400 unit-5,000 unit/gram top oint (Neosporin (ygr-wzs-iccxi)) oxcarbazepine 600 mg tablet 600 mg PO BID 11/05/23 06:30 History polyethylene glycol 3350 17 238 g PO ONCE Colonoscopy prep 11/12/23 12/19/23 Rx gram/dose oral powder (Miralax) #238 grams Allergy/AdvReac Type Severity Reaction Status Date / Time risperidone (From Risperdal) Allergy ANXIETY Verified 10/08/24 16:53 Family History (Updated 10/08/24 @ 20:[address] Yamileth Aguirre MD) Mother Hyperlipidemia Father Hyperlipidemia Surgical History Hx of cystoscopy History of testicular surgery History of ankle surgery Social History household members: other details: Lives with others in residential home number of children: 0 Smoking Status: Never smoker alcohol intake: never substance use type: does not use Lab / Micro Data 10/09/24 05:03 10/09/24 05:03 Labs: Laboratory Results - last 24 hr 10/08/24 17:17: WBC 13.8 H, RBC 4.73, Hgb 13.7, Hct 40.6, MCV 85.8, MCH 29.0, MCHC 33.7, RDW Std Deviation 41.9, RDW Coeff of Jaime 13.4, Plt Count 327, MPV 9.0, Immature Gran % (Auto) 0.700, Neut % (Auto) 68.7, Lymph % (Auto) 19.2, [place]% (Auto) 8.0, Eos % (Auto) 2.9, Baso % (Auto) 0.5, Absolute Neuts (auto) 9.5 H, Absolute Lymphs (auto) 2.64, Nucleated RBC % 0, Sodium 135, Potassium 4.0, Chloride 101, Carbon Dioxide 19.3 L, Anion Gap 15, BUN 18, Creatinine 1.32 H, Estim Creat Clear Calc 72.57, Est GFR (MDRD) Non-Af 68, BUN/Creatinine Ratio 13.4, Glucose 100 H, Calcium 9.9, Total Bilirubin 0.33, AST 51 H, ALT 66 H, Alkaline Phosphatase 75, Total Protein 7.1, Albumin 4.4, Globulin 2.7, Albumin/ Globulin Ratio 1.6 10/08/24 18:31: Urine Color Yellow, Urine Clarity Cloudy, Urine pH 7.0, Ur Specific [place] 1.010, Urine Protein 30 H, Urine Glucose (UA) Normal, Urine Ketones Negative, Urine Occult Blood 250 H, Urine Nitrite Negative, Urine Bilirubin Negative, Urine Urobilinogen Normal, Ur Leukocyte Esterase 25 H, UrineRBC > 100 SEEN, Urine WBC 0 SEEN, Ur Squamous Epith Cells 0 SEEN, Urine Bacteria2+, Urine Mucus 0 SEEN 10/09/24 05:03: WBC 9.1, RBC 4.41 L, Hgb 12.7 L, Hct 38.1 L, MCV 86.4, MCH 28.8,MCHC 33.3, RDW Std Deviation 42.9, RDW Coeff of Jaime 13.7, Plt Count 332, MPV 8.8, Immature Gran % (Auto) 0.300, Neut % (Auto) 53.3, Lymph % (Auto) 31.8, [place]% (Auto) 8.4, Eos % (Auto) 5.5 H, Baso % (Auto) 0.7, Absolute Neuts (auto) 4.9, Absolute Lymphs (auto) 2.90, Nucleated RBC % 0, Sodium 137, Potassium 3.8, Chloride 104, Carbon Dioxide 21.2, Anion Gap 12, BUN 17, Creatinine 1.39 H, Estim Creat Clear Calc 67.68, Est GFR (MDRD) Non-Af 64, BUN/Creatinine Ratio 12.4, Glucose 100 H, Calcium 9.1, Total Bilirubin 0.38, AST 40 H, ALT 55 H, Alkaline Phosphatase 67, Total Protein 6.2, Albumin 3.9, Globulin 2.2, Albumin/ Globulin Ratio 1.8 Imaging Radiology Impression Abdomen/Pelvis CT 10/08/24 17:09 IMPRESSION: 9 mm obstructive stone at the distal left ureter with associated upstream moderate hydroureteronephrosis. Multiple urinary bladder stones are noted. Mild thickening of the urinary bladder wall which may reflect cystitis versus partial nondistention; consider correlation with urinalysis. Enlarged prostate with abutment onto the urinary bladder wall. Reading Location: [facility] 10/09/24 1140 Cosigner Signature (if applicable): CC: Dr. Ramiro Rosa MD~ Signed ADDENDUM by Dr. Salvador Rush MD on 10/09/24 at 1210 Addendum 43-year-old male with obstructing stone we are unable to get a hold of family orguardian, the patient is agreeable with having the procedure done for cystoscopyand stent placement we had to Drs. Review his chart myself and Dr. Julian and hollis that surgical intervention with an emergency stent is appropriate to unblock his kidney clear of any infection plus the patient has given assent. 10/09/24 1210 Cosigner Signature (if applicable): cc: Dr. Ramiro Rosa MD ~* Signed [facility]06-06-2025 Discharge summary Author Brad Goins [facility] Note Date/Time October 08, 2024 10:07 pm [facility] Medical Records Department [address] [place] [address] Emergency Department Summary 10/08/24 MR#: [id number] Acct: [id number] Name: CHAN BURCIAGA Rep #:[id number] : 1980 43 From: Brad Goins MD PCP: Dr. Ramiro Rosa MD Status:ADM IN Location: [facility] SL184-4 HPI HPI - GI History of Present Illness Chief Complaint: Abd Pain Informant: patient and other (Staff member of patient's facility.) Abdominal Pain/Flank Pain Onset: Days Context: Gradual Onset Timing: Continuous Quality: Dull Location: See Diagram (Back pain and periumbilical.) Current Severity: Mild Maximum Severity: Mild Worsened by: Nothing Relieved by: Nothing Nausea/Vomiting/Emesis GI Symptom: Negative for Nausea or Vomiting Diarrhea/Melena/Hematochezia GI Symptom: Negative for Diarrhea, Melena or Hematochezia Associated Symptoms Associated Symptoms: Negative for Dysuria, Frequency or Hematuria Narrative Narrative: 43-year-old male from [facility]. History of hypertension kidney stones. Said the back pain for the last 5 days. Went to urgent care today sent in the Emergency Department for further evaluation. Recently was on antibiotic for possible UTI because he had blood in his urine but the culture ended up being negative. Staff this with the patient states that he has had no vomiting diarrhea or fever. No dysuria. Prior similar symptoms: No Recent Illness/Hospitalization: No PFSH PFSH Medical History Lives in [facility] Arthritis Back pain Non-smoker Shortness of breath on exertion Intellectual disability Recurrent major depression in full remission Hyperlipidemia Essential hypertension Urinary tract infection with hematuria Home Medications ?Medication ?Instructions ?Recorded ?Last Taken ?Type fenofibrate nanocrystallized 145 145 mg PO DAILY 07/0812/18/23 History mg tablet folic acid 400 mcg tablet 0.4 mg PO DAILY@0800 9 12/18/23 History garlic 200 mg tablet 350 mg PO DAILY 07/08/18 History loratadine 10 mg capsule (Claritin 10 mg PO DAILY 09/2112/18/23 History Liqui-Gel) omega-3 fatty acids-fish oil 340 3 ea PO DAILY 9 12/15/23 History mg-1,000 mg capsule (Fish Oil) ammonium lactate 12 % topical cream 1 applic topical D AILY 05/29/23 12/18/23 History atorvastatin 40 mg tablet 40 mg PO DAILY 05/29/2312/04 History clonidine HCl 0.2 mg tablet 0.2 mg PO BID 05/29/23 06:30 History doxazosin 2 mg tablet 2 mg PO QHS 05/29/23 4 History fluticasone propionate 50 2 spray intranasal DAILY 12/18/23 History mcg/actuation nasal spray,suspension (Allergy Relief (fluticasone)) losartan 100 mg tablet 100 mg PO DAILY 05/29/23 06:30 History multivitamin-ferrous 1 tab PO DAILY 05/29/2312/04 History fumarate-folic acid 18 mg-400 mcg tablet (Certavite-Antioxidant) nabumetone 500 mg tablet 500 mg PO BID PRN pain 05/29 Unknown History quetiapine 150 mg tablet,extended 150 mg PO 1600 05/2912/18/23 History release 24 hr neomycin-bacitracn Zn-polymyx 3.5 1 applic topical TID PRN dry skin 11/05/23 Unknown History mg-400 unit-5,000 unit/gram top oint (Neosporin ([id number])) oxcarbazepine 600 mg tablet 600 mg PO BID 11/05/23 06:30 History polyethylene glycol 3350 17 238 g PO ONCE Colonoscopy prep 11/12/23 12/19/23 Rx gram/dose oral powder (Miralax) #238 grams Allergy/AdvReac Type Severity Reaction Status Date / Time risperidone (From Risperdal) Allergy ANXIETY Verified 10/08/24 16:53 Surgical History Hx of cystoscopy History of testicular surgery History of ankle surgery Social History household members: other details: Lives with others in residential home number of children: 0 Smoking Status: Never smoker alcohol intake: never substance use type: does not use ROS ROS ED Constitutional Constitutional ED: Denies chills or fever(s) ENT ENT ED: Denies ear pain Cardiovascular Cardiovascular: Denies chest pain Respiratory/Chest Respiratory/Chest: Denies cough Gastrointestinal Gastrointestinal: Reports abdominal pain; Denies constipation, diarrhea, melena,nausea or vomiting Genitourinary Genitourinary ED: Denies dysuria or hematuria Musculoskeletal Musculoskeletal: Denies arthralgias Integumentary Denies abscess Psychiatric Psychiatric: Denies anxiety Endocrine Endocrinology: Denies polydipsia Hematologic/Lymphatic Hematologic/Lymphatic: Denies easy bleeding Allergic/Immunologic Allergic/Immunologic ED: Denies mouth swelling, tongue swelling or urticaria EXAM Physical Exam Narrative Exam Narrative: Well-appearing middle-aged male. Vital signs stable afebrile. Does not look septic toxic. Staff member with him. No acute distress. H EENT exam pupils round react light. Moist mucous membranes. No trauma. Neck nontender. Lungs clear to auscultation bilaterally. Heart regular rhythm no murmur. Chest wall ribs nontender. Abdomen soft, nondistended normal bowel sounds without peritoneal signs. Mild periumbilical tenderness. No rebound guarding rigidity. No hernia or mass. No obstruction. Back nontender. Moving all 4 extremities. Nontender no edema. Neurologically patient is awake alert. Answer questions following commands. Limited informant. Const Vital Signs: 10/08/24 16:53 10/08/24 18:52 Temperature 97.6 F L Temperature Source Temporal Pulse Rate 101 H 78 Respiratory Rate 16 20 H Blood Pressure 141/94 H 154/97 H Blood Pressure Mean 109 116 Pulse Ox 98 96 Oxygen Delivery Method Room Air Room Air Positive well nourished and well developed; Negative for cachectic, contracturesor unkempt General Appearance ED: well developed, NAD and pallor; Negative for unkempt, cachectic or contractures Nutritional Appearance: Negative for cachectic HEENT Reports moist mucous membranes normocephalic and atraumatic Eyes PERRL and EOMs intact bilaterally Neck no lymphadenopathy, supple and no JVD Resp normal respiratory effort and clear to auscultation bilaterally Cardio regular rate, regular rhythm, S1 normal heart sound, S2 normal heart sound and no murmurs GI non-distended and no masses; Negative for non-tender GI Narrative: Very mild periumbilical tenderness. Auscultation: normoactive bowel sounds Palpation: soft and tender; Negative for guarding, rigid, hepatomegaly, splenomegaly, hernia, mass, pulsatile mass or rebound tenderness present Back/Spine no CVA tenderness General Back: Negative for CVA tenderness Cervical Spine: Negative for cervical spine tenderness Thoracic Spine / Upper Back: Negative for thoracic spinal tenderness Lumbar Spine / Lower Back: Negative for lumbar spinal tenderness Extremity General Extremety ED: Negative for edema or tenderness General Extremity: Negative for edema Neuro CN's II-XII intact bilaterally and moves all extremities Sensorium / Orientation: alert, oriented to person and oriented to place Motor Exam: strength 5/5 throughout Psych mental status grossly normal and thought process normal Appearance: Negative for unkempt Skin no wounds General Skin Exam: pallor; Negative for jaundice Lesions: no lesions Rashes: no rashes Trauma: Negative for abrasion Nails: Negative for discolored MDM MDM MDM Narrative Medical decision making narrative: 43-year-old male atypical back and abdominal pain. Really not classic for kidney stone. Differential would include gastritis. Possible pancreatitis or gallbladder disease but I do not think it is very likely I do not think is appendicitis and clinically does not come off as a bowel obstruction. CAT scan labs to be obtained. Given Toradol for pain. Patient require additional pain medications he was initially given for morphine and 4 Zofran. Then given additional 6 mg of morphine. CAT scans consistent with a large left ureteral 9 mm stone with obstruction. Discussed patient's case with urology on-call and the patient will be admitted for intractable pain and possible urologic procedure. At the hospitalist on page. History & Record Review Discussion w/independent historian: Other (Staff that is with him.) Additional record(s) reviewed:: Prior inpatient record, Prior outpatient record,Prior ED visit and Prior labs Lab Data Attestation: I reviewed the patient's lab results. Lab results narrative: CBC shows no elevated white count 13.8. H&H 13 and 40. Platelets 327. Chemistry shows sodium 135. Gap 15. BUN and creatinine 18 and 1.32. Liver enzymes shows slightly elevated AST and ALT. UA shows occult blood in the urine. No nitrates. Awaiting micro. CAT scan shows a left distal ureter, ureteral calculi about 9 mm with hydroureter and hydronephrosis. Labs: Laboratory Results - last 24 hr 10/08/24 10/08/24 17:17 18:31 WBC 13.8 H RBC 4.73 Hgb 13.7 Hct 40.6 MCV 85.8 MCH 29.0 MCHC 33.7 RDW Std Deviation 41.9 RDW Coeff of Jaime 13.4 Plt Count 327 MPV 9.0 Immature Gran % (Auto) 0.700 Neut % (Auto) 68.7 Lymph % (Auto) 19.2 [place] % (Auto) 8.0 Eos % (Auto) 2.9 Baso % (Auto) 0.5 Absolute Neuts (auto) 9.5 H Absolute Lymphs (auto) 2.64 Nucleated RBC % 0 Sodium 135 Potassium 4.0 Chloride 101 Carbon Dioxide 19.3 L Anion Gap 15 BUN 18 Creatinine 1.32 H Estim Creat Clear Calc 72.57 Est GFR (MDRD) Non-Af 68 BUN/Creatinine Ratio 13.4 Glucose 100 H Calcium 9.9 Total Bilirubin 0.33 AST 51 H ALT 66 H Alkaline Phosphatase 75 Total Protein 7.1 Albumin 4.4 Globulin 2.7 Albumin/Globulin Ratio 1.6 Urine Color Yellow Urine Clarity Cloudy Urine pH 7.0 Ur Specific [place] 1.010 Urine Protein 30 H Urine Glucose (UA) Normal Urine Ketones Negative Urine Occult Blood 250 H Urine Nitrite Negative Urine Bilirubin Negative Urine Urobilinogen Normal Ur Leukocyte Esterase 25 H Radiography Diagnostic Testing: Clinical Impression(s) from Imaging Studies Abdomen/Pelvis CT 10/08/24 17:09 IMPRESSION: 9 mm obstructive stone at the distal left ureter with associated upstream moderate hydroureteronephrosis. Multiple urinary bladder stones are noted. Mild thickening of the urinary bladder wall which may reflect cystitis versus partial nondistention; consider correlation with urinalysis. Enlarged prostate with abutment onto the urinary bladder wall. Reading Location: [facility] Discharge Plan Triage Chief Complaint: Abd Pain ED Provider: Brad Goins Dx/Rx/DC Orders Prescriptions: No Action quetiapine 150 mg tablet extended release 24 hr 150 mg PO 1600 Patient Comments: TAKE 1 TABLET BY MOUTHEONCE DAILY AT 4PM ammonium lactate 12 % cream 1 applic topical DAILY atorvastatin 40 mg tablet 40 mg PO DAILY Certavite-Antioxidant 18-400 mg-mcg tablet 1 tab PO DAILY clonidine HCl 0.2 mg tablet 0.2 mg PO BID doxazosin 2 mg tablet 2 mg PO QHS fluticasone propionate [Allergy Relief (fluticasone)] 50 mcg/actuation spray,suspension 2 spray intranasal DAILY Rx Instructions: administer into each nostril losartan 100 mg tablet 100 mg PO DAILY nabumetone 500 mg tablet 500 mg PO BID PRN (Reason: pain) Patient Comments: take 1 tablet by mouth twice a day oxcarbazepine 600 mg tablet 600 mg PO BID Neosporin (isl-pqn-ruola) 3.5mg-400 unit- 5,000 unit/gram ointment 1 applic topical TID PRN (Reason: dry skin) Rx Instructions: To inside of nose for dry patches folic acid 0.4 MG tablet 0.4 mg PO DAILY@0800 fenofibrate nanocrystallized 145 MG tablet 145 mg PO DAILY Fish Oil 1 EACH capsule 3 ea PO DAILY Claritin Liqui-Gel 10 MG capsule 10 mg PO DAILY garlic 200 MG tablet 350 mg PO DAILY polyethylene glycol 3350 [Miralax] 17 gram/dose powder 238 g PO ONCE Qty: 238 0RF Rx Instructions: Mix 8.3oz bottle with 2-32oz bottles of yellow or orange Gatorade. Use as directed by Physician. Primary Care Provider: Ramiro Rosa Referrals: Ramiro Rosa MD [Primary Care Provider] - Print Language: Chinese What to do if you have Problems For any increased pain, shortness of breath, bleeding, nausea or vomiting, chestpain, or any unexpected problems, contact your Primary Care Provider. Call [facility] ([phone]) or report to the closest Emergency Room. Call 911 if necessary. 10/08/242206 <Electronically signed by Brad Goins MD> Cosigner Signature (if applicable): CC: Dr. Ramiro Rosa MD ~ Signed [facility] Work Phone: [phone] History and physical note Author Yamileth Aguirre [facility] Note Date/Time October 08, 2024 8:46p m [facility] Medical Records Department [address] [place] [address] H&P Exam - Hospitalist 10/08/242001 MR#: [id number] Acct: [id number] Name: CHAN BURCIAGA Rep #:[id number] : 1980 43 From: Yamileth Aguirre MD PCP: Dr. Ramiro Rosa MD Status:ADM IN Location: MI3 [id number] HPI - General General Date of Admission: 10/08/24 Date of Service: 10/08/24 Chief Complaint: Abdominal pain, flank pain. HPI Narrative The patient is a 43 y/o M w/ intellectual debilities living in a [facility] w/ PMHx: CKD stage II per GFR trending, HTN, HLD, Anxiety and Depression/Mood disorder, Obesity who presents to the [facility] ED on 10/08/24 with history of abdominalpain with no associated nausea or emesis but persistent described primarily in the back/flank and periumbilical region with history of previous kidney stones noting that the discomfort in the back/flank is been ongoing for at least 5 dayssent to the urgent care initially referred to the ED given concern for possible UTI and antibiotic needs with no fevers or chills. Patient currently notes painis improved after morphine but discussion with patient and [facility] staff he rates his discomfort previously potentially 7-8 out of 10 in severity and more in the back/flank. Workup in the ED included T97.6, heart rate 101, BP 141/94, respiratory rate 16, percent room air with most recent repeat vital signs T98, heart rate 96, BP 149/90, respiratory rate 18, 97% on room air, CBC with WBC 13.8, hemoglobin 13.7, platelet 327 with left shift, CMP with come back side 19.3, BUN/creatinine 18/1.32, GFR 68, glucose 100, AST/LT 51/66, urinalysis withno obvious overt UTI but pending urine RBC/WBC/squamous epithelial cells/urine bacteria, CT abdomen and pelvis with a 9 mm obstructive stone at the distal leftureter with associated upstream moderate hydroureteronephrosis with multiple urinary bladder stones, mild thickening of the urinary bladder wall reflective of possible cystitis versus partial nondistention with an enlarged prostate withabutment into the urinary bladder wall. In the ED patient ministered Zofran 4 mg IV x 2, morphine 4 mg IV x 1, morphine 6 mg IV x 1, Toradol 30 mg IV x 1. EDdiscussed case with urology. [facility] Medical History Lives in [facility] Arthritis Back pain Non-smoker Shortness of breath on exertion Intellectual disability Recurrent major depression in full remission Hyperlipidemia Essential hypertension Urinary tract infection with hematuria Home Medications ?Medication ?Instructions ?Recorded ?Last Taken ?Type fenofibrate nanocrystallized 145 145 mg PO DAILY 07/0812/18/23 History mg tablet folic acid 400 mcg tablet 0.4 mg PO DAILY@0800 9 12/18/23 History garlic 200 mg tablet 350 mg PO DAILY 07/08/18 History loratadine 10 mg capsule (Claritin 10 mg PO DAILY 09/2112/18/23 History Liqui-Gel) omega-3 fatty acids-fish oil 340 3 ea PO DAILY 9 12/15/23 History mg-1,000 mg capsule (Fish Oil) ammonium lactate 12 % topical cream 1 applic topical D AILY 05/29/23 12/18/23 History atorvastatin 40 mg tablet 40 mg PO DAILY 05/29/2312/04 History clonidine HCl 0.2 mg tablet 0.2 mg PO BID 05/29/23 06:30 History doxazosin 2 mg tablet 2 mg PO QHS 05/29/23 4 History fluticasone propionate 50 2 spray intranasal DAILY 12/18/23 History mcg/actuation nasal spray,suspension (Allergy Relief (fluticasone)) losartan 100 mg tablet 100 mg PO DAILY 05/29/23 06:30 History multivitamin-ferrous 1 tab PO DAILY 05/29/2312/04 History fumarate-folic acid 18 mg-400 mcg tablet (Certavite-Antioxidant) nabumetone 500 mg tablet 500 mg PO BID PRN pain 05/29 Unknown History quetiapine 150 mg tablet,extended 150 mg PO 1600 05/2912/18/23 History release 24 hr neomycin-bacitracn Zn-polymyx 3.5 1 applic topical TID PRN dry skin 11/05/23 Unknown History mg-400 unit-5,000 unit/gram top oint (Neosporin ([id number])) oxcarbazepine 600 mg tablet 600 mg PO BID 11/05/23 06:30 History polyethylene glycol 3350 17 238 g PO ONCE Colonoscopy prep 11/12/23 12/19/23 Rx gram/dose oral powder (Miralax) #238 grams Allergy/AdvReac Type Severity Reaction Status Date / Time risperidone (From Risperdal) Allergy ANXIETY Verified 10/08/24 16:53 Family History (Updated 10/08/24 @ 20:[address] Yamileth Aguirre MD) Mother Hyperlipidemia Father Hyperlipidemia Surgical History Hx of cystoscopy History of testicular surgery History of ankle surgery Social History household members: other details: Lives with others in residential home number of children: 0 Smoking Status: Never smoker alcohol intake: never substance use type: does not use ROS ROS Narrative Admission Review of Systems: CONSTITUTIONAL: No weight loss, fever, chills, + weakness or fatigue. HEENT: Eyes: No visual loss, blurred vision, double vision or yellow sclerae. Ears, Nose, Throat: No hearing loss, sneezing, congestion, runny nose or sore throat. SKIN: No rash or itching, lesions, wounds. CARDIOVASCULAR: No chest pain, chest pressure or chest discomfort, palpitations,edema, orthopnea, syncopal events. RESPIRATORY: No shortness of breath, cough or sputum, wheezing, hemoptysis. GASTROINTESTINAL: + Decreased appetite. No markedly reported nausea, vomiting ordiarrhea, abdominal pain, melena, BRBPR. GENITOURINARY: + Flank discomfort. No dysuria, frequency, urgency or retention. NEUROLOGICAL: No headache, dizziness, syncope, paralysis, ataxia, numbness or tingling in the extremities, focal weakness, change in bowel or bladder control,seizure. MUSCULOSKELETAL: + muscle, back pain, joint pain or stiffness. HEMATOLOGIC: No anemia, bleeding or bruising. LYMPHATICS: No enlarged nodes. No history of splenectomy. PSYCHIATRIC: + History of anxiety and depression/intellectual debility. ENDOCRINOLOGIC: No reports of sweating, cold or heat intolerance. No polyuria orpolydipsia. ALLERGIES: + Allergic rhinitis. Vital Signs Vital Signs Vital Signs: 10/08/24 16:53 10/08/24 18:52 10/08/24 19:56 Temperature 97.6 F L 98.0 F Temperature Source Temporal Pulse Rate 101 H 78 96 Respiratory Rate 16 20 H 18 Blood Pressure 141/94 H 154/97 H 149/90 H Blood Pressure Mean 109 116 109 Pulse Ox 98 96 97 Oxygen Delivery Method Room Air Room Air Weight Weight: 189 lb 2.506 oz Body Mass Index (BMI) 30.5 Physical Exam Narrative Physical Examination: General: Awake, alert, oriented to self, place, recent vents, [facility] staff present, remains cooperative, seated upright in ED bed, pain currently resolved following recent morphine he notes. Skin: Normal color, normal turgor, no icterus, no cyanosis except occasional stage ecchymoses, abrasion. HEENT: AT/NC, EOMI, PERRLA, moderately dry MM, no carotid bruits or JVD noted. Lungs: Mildly diminished, greater bases, appropriate effort, no rales, ronchi orwheezing. Heart: Mildly tachycardic with regular rhythm; no gallop, rub audible. Abdomen: Soft, NTTP currently and no flank discomfort but did have recent morphine, no obvious distention, distant BS, no appreciated HSM. Extremities: No cyanosis, clubbing, or edema. Neurological: Patient awake, alert, oriented as noted, cognitive function impaired baseline but currently is baseline intact per discussion with [facility]cc staff, pupils equally reactive to light and accommodation, cranial nerves grossly normal, moving all 4 extremities, no focal deficits, strength moderatelyglobally decreased secondary to acute presentation. Psychiatric: Affect appears fatigued, denies any current pain, no acute evidenceof depressive or anxiety feelings but does have underlying psychiatric history. Results Lab / Micro Data 10/08/24 17:17 10/08/24 17:17 Labs: Laboratory Results - last 24 hr 10/08/24 17:17: WBC 13.8 H, RBC 4.73, Hgb 13.7, Hct 40.6, MCV 85.8, MCH 29.0, MCHC 33.7, RDW Std Deviation 41.9, RDW Coeff of Jaime 13.4, Plt Count 327, MPV 9.0, Immature Gran % (Auto) 0.700, Neut % (Auto) 68.7, Lymph % (Auto) 19.2, [place]% (Auto) 8.0, Eos % (Auto) 2.9, Baso % (Auto) 0.5, Absolute Neuts (auto) 9.5 H, Absolute Lymphs (auto) 2.64, Nucleated RBC % 0, Sodium 135, Potassium 4.0, Chloride 101, Carbon Dioxide 19.3 L, Anion Gap 15, BUN 18, Creatinine 1.32 H, Estim Creat Clear Calc 72.57, Est GFR (MDRD) Non-Af 68, BUN/Creatinine Ratio 13.4, Glucose 100 H, Calcium 9.9, Total Bilirubin 0.33, AST 51 H, ALT 66 H, Alkaline Phosphatase 75, Total Protein 7.1, Albumin 4.4, Globulin 2.7, Albumin/Globulin Ratio 1.6 10/08/24 18:31: Urine Color Yellow, Urine Clarity Cloudy, Urine pH 7.0, Ur Specific [place] 1.010, Urine Protein 30 H, Urine Glucose (UA) Normal, Urine Ketones Negative, Urine Occult Blood 250 H, Urine Nitrite Negative, Urine Bilirubin Negative, Urine Urobilinogen Normal, Ur Leukocyte Esterase 25 H Imaging Radiology Impression Abdomen/Pelvis CT 10/08/24 17:09 IMPRESSION: 9 mm obstructive stone at the distal left ureter with associated upstream moderate hydroureteronephrosis. Multiple urinary bladder stones are noted. Mild thickening of the urinary bladder wall which may reflect cystitis versus partial nondistention; consider correlation with urinalysis. Enlarged prostate with abutment onto the urinary bladder wall. Reading Location: [id number] Assessment & Plan Assessment/Plan (1) Kidney stone on left side: PLAN: Plan The patient is a 43 y/o M w/ intellectual debilities living in a [facility] w/ PMHx: CKD stage II per GFR trending, HTN, HLD, Anxiety and Depression/Mood disorder, Obesity who presents to the [facility] ED on 10/08/24 with history of abdominalpain with no associated nausea or emesis but persistent described primarily in the back/flank and periumbilical region with history of previous kidney stones noting that the discomfort in the back/flank is been ongoing for at least 5 dayssent to the urgent care initially referred to the ED given concern for possible UTI and antibiotic needs with no fevers or chills. #1. Acute Flank Pain secondary to Acute obstructive stone at the distal left ureter with associated upstream moderate hydronephrosis with also incidentally noted enlarged prostate abutting the urinary bladder wall: Will admit to [facility], maintain on hydration, currently urinalysis with no overt evidence of UTI but awaiting completion of UA with addition of Rocephin if appropriate if needed, will allow cardiac diet until midnight with n.p.o. following for urological intervention, urology consulted and aware of patient, will have PRN oral and IV pain regimen, PRN anti-emetics, monitor I&Os. #2. Chronic Kidney Disease Stage II per GFR trending: Admission BUN/Cr 18/1.32,GFR 68, baseline renal function 1.0-1.3, repeat BMP in AM. #3. Anxiety and depression/mood disorder complicated by underlying intellectualdisability: Will continue patient home oxcarbazepine and Seroquel home regimen, encourage continued outpatient follow-up as previously arranged. #4. Hypertension: Continue home regimen including clonidine, doxazosin, losartan, PRN hydralazine. #5. Hyperlipidemia: Will continue patient home statin and fenofibrate regimen. #6. Obesity: Weight loss and lifestyle changes encouraged. #7. DVT prophylaxis: SCDs, hold chemoprophylaxis for planned urological intervention given size. #8. CODE STATUS: Full Code per discussion with the [facility] staff. Charges/Coding Visit Charges Inpatient E&M: 19583 Init Hosp L3 10/08/242045 <Electronically signed by Yamileth Aguirre MD> Cosigner Signature (if applicable): CC: Dr. Yamileth Aguirre MD; Dr. Ramiro Rosa MD~ Signed [facility] Work Phone: [phone] Discharge summary [facility] Medical Records Department [address] [place] [address] Emergency Department Summary 10/08/24 MR#: [id number] Acct: [id number] Name: CHAN BURCIAGA Rep #:[id number] : 1980 43 From: Brad Goins MD PCP: Dr. Ramiro Rosa MD Status:ADM IN Location: MI3 [id number] HPI HPI - GI History of Present Illness Chief Complaint: Abd Pain Informant: patient and other (Staff member of patient's facility.) Abdominal Pain/Flank Pain Onset: Days Context: Gradual Onset Timing: Continuous Quality: Dull Location: See Diagram (Back pain and periumbilical.) Current Severity: Mild Maximum Severity: Mild Worsened by: Nothing Relieved by: Nothing Nausea/Vomiting/Emesis GI Symptom: Negative for Nausea or Vomiting Diarrhea/Melena/Hematochezia GI Symptom: Negative for Diarrhea, Melena or Hematochezia Associated Symptoms Associated Symptoms: Negative for Dysuria, Frequency or Hematuria Narrative Narrative: 43-year-old male from [facility]. History of hypertension kidney stones. Said the back pain for thelast 5 days. Went to urgent care today sent in the Emergency Department for further evaluation. Recently was on antibiotic for possible UTI because he had blood in his urine but the culture ended up being negative. Staff this with the patient states that he has had no vomiting diarrhea or fever. Nodysuria. Prior similar symptoms: No Recent Illness/Hospitalization: No PFSH [facility] Medical History Lives in [facility] Arthritis Back pain Non-smoker Shortness of breath on exertion Intellectual disability Recurrent major depression in full remission Hyperlipidemia Essential hypertension Urinary tract infection with hematuria Home Medications ?Medication ?Instructions ?Recorded ?Last Taken ?Type fenofibrate nanocrystallized 145 145 mg PO DAILY 07/0812/18/23 History mg tablet folic acid 400 mcg tablet 0.4 mg PO DAILY@0800 9 12/18/23 History garlic 200 mg tablet 350 mg PO DAILY 07/08/18 History loratadine 10 mg capsule (Claritin 10 mg PO DAILY 09/2112/18/23 History Liqui-Gel) omega-3 fatty acids-fish oil 340 3 ea PO DAILY 9 12/15/23 History mg-1,000 mg capsule (Fish Oil) ammonium lactate 12 % topical cream 1 applic topical D AILY 05/29/23 12/18/23 History atorvastatin 40 mg tablet 40 mg PO DAILY 05/29/2312/04 History clonidine HCl 0.2 mg tablet 0.2 mg PO BID 05/29/23 06:30 History doxazosin 2 mg tablet 2 mg PO QHS 05/29/23 4 History fluticasone propionate 50 2 spray intranasal DAILY 12/18/23 History mcg/actuation nasal spray,suspension (Allergy Relief (fluticasone)) losartan 100 mg tablet 100 mg PO DAILY 05/29/23 06:30 History multivitamin-ferrous 1 tab PO DAILY 05/29/2312/04 History fumarate-folic acid 18 mg-400 mcg tablet (Certavite-Antioxidant) nabumetone 500 mg tablet 500 mg PO BID PRN pain 05/29 Unknown History quetiapine 150 mg tablet,extended 150 mg PO 1600 05/2912/18/23 History release 24 hr neomycin-bacitracn Zn-polymyx 3.5 1 applic topical TID PRN dry skin 11/05/23 Unknown History mg-400 unit-5,000 unit/gram top oint (Neosporin ([id number])) oxcarbazepine 600 mg tablet 600 mg PO BID 11/05/23 06:30 History polyethylene glycol 3350 17 238 g PO ONCE Colonoscopy prep 11/12/23 12/19/23 Rx gram/dose oral powder (Miralax) #238 grams Allergy/AdvReac Type Severity Reaction Status Date / Time risperidone (From Risperdal) Allergy ANXIETY Verified 10/08/24 16:53 Surgical History Hx of cystoscopy History of testicular surgery History of ankle surgery Social History household members: other details: Lives with others in residential home number of children: 0 Smoking Status: Never smoker alcohol intake: never substance use type: does not use ROS ROS ED Constitutional Constitutional ED: Denies chills or fever(s) ENT ENT ED: Denies ear pain Cardiovascular Cardiovascular: Denies chest pain Respiratory/Chest Respiratory/Chest: Denies cough Gastrointestinal Gastrointestinal: Reports abdominal pain; Denies constipation, diarrhea, melena,nausea or vomiting Genitourinary Genitourinary ED: Denies dysuria or hematuria Musculoskeletal Musculoskeletal: Denies arthralgias Integumentary Denies abscess Psychiatric Psychiatric: Denies anxiety Endocrine Endocrinology: Denies polydipsia Hematologic/Lymphatic Hematologic/Lymphatic: Denies easy bleeding Allergic/Immunologic Allergic/Immunologic ED: Denies mouth swelling, tongue swelling or urticaria EXAM Physical Exam Narrative Exam Narrative: Well-appearing middle-aged male. Vital signs stable afebrile. Does not look septic toxic. Staff member with him. No acute distress. H EENT exam pupils round react light. Moist mucous membranes. No trauma. Neck nontender. Lungs clear to auscultation bilaterally. Heart regular rhythm no murmur. Chestwall ribs nontender. Abdomen soft, nondistended normal bowel sounds without peritoneal signs. Mild periumbilical tenderness. No rebound guarding rigidity. No hernia or mass. No obstruction. Back nontender. Moving all 4 extremities. Nontender no edema. Neurologically patient is awake alert. Answer questions following commands. Limited informant. Const Vital Signs: 10/08/24 16:53 10/08/24 18:52 Temperature 97.6 F L Temperature Source Temporal Pulse Rate 101 H 78 Respiratory Rate 16 20 H Blood Pressure 141/94 H 154/97 H Blood Pressure Mean 109 116 Pulse Ox 98 96 Oxygen Delivery Method Room Air Room Air Positive well nourished and well developed; Negative for cachectic, contracturesor unkempt General Appearance ED: well developed, NAD and pallor; Negative for unkempt, cachectic or contractures Nutritional Appearance: Negative for cachectic HEENT Reports moist mucous membranes normocephalic and atraumatic Eyes PERRL and EOMs intact bilaterally Neck no lymphadenopathy, supple and no JVD Resp normal respiratory effort and clear to auscultation bilaterally Cardio regular rate, regular rhythm, S1 normal heart sound, S2 normal heart sound and no murmurs GI non-distended and no masses; Negative for non-tender GI Narrative: Very mild periumbilical tenderness. Auscultation: normoactive bowel sounds Palpation: soft and tender; Negative for guarding, rigid, hepatomegaly, splenomegaly, hernia, mass,pulsatile mass or rebound tenderness present Back/Spine no CVA tenderness General Back: Negative for CVA tenderness Cervical Spine: Negative for cervical spine tenderness Thoracic Spine / Upper Back: Negative for thoracic spinal tenderness Lumbar Spine / Lower Back: Negative for lumbar spinal tenderness Extremity General Extremety ED: Negative for edema or tenderness General Extremity: Negative for edema Neuro CN's II-XII intact bilaterally and moves all extremities Sensorium / Orientation: alert, oriented to person and oriented to place Motor Exam: strength 5/5 throughout Psych mental status grossly normal and thought process normal Appearance: Negative for unkempt Skin no wounds General Skin Exam: pallor; Negative for jaundice Lesions: no lesions Rashes: no rashes Trauma: Negative for abrasion Nails: Negative for discolored MDM MDM MDM Narrative Medical decision making narrative: 43-year-old male atypical back and abdominal pain. Really not classic for kidney stone. Differential would include gastritis. Possible pancreatitis or gallbladder disease but I do not think it is very likely I do not think is appendicitis and clinically does not come off as a bowel obstruction. CATscan labs to be obtained. Given Toradol for pain. Patient require additional pain medications he was initially given for morphine and 4 Zofran. Then given additional 6 mg of morphine. CAT scans consistent with a large left ureteral 9 mm stone with obstruction. Discussed patient's case with urology on-call and the patient will be admitted for intractable pain and possible urologic procedure. At the hospitalist on page. History & Record Review Discussion w/independent historian: Other (Staff that is with him.) Additional record(s) reviewed:: Prior inpatient record, Prior outpatient record,Prior ED visit and Prior labs Lab Data Attestation: I reviewed the patient's lab results. Lab results narrative: CBC shows no elevated white count 13.8. H&H 13 and 40. Platelets 327. Chemistry shows sodium 135. Gap 15. BUN and creatinine 18 and 1.32. Liver enzymes shows slightly elevated AST and ALT. UA shows occult blood in the urine. No nitrates. Awaiting micro. CAT scan shows a left distal ureter, ureteral calculi about 9 mm with hydroureter and hydronephrosis. Labs: Laboratory Results - last 24 hr 10/08/24 10/08/24 17:17 18:31 WBC 13.8 H RBC 4.73 Hgb 13.7 Hct 40.6 MCV 85.8 MCH 29.0 MCHC 33.7 RDW Std Deviation 41.9 RDW Coeff of Jaime 13.4 Plt Count 327 MPV 9.0 Immature Gran % (Auto) 0.700 Neut % (Auto) 68.7 Lymph % (Auto) 19.2 [place] % (Auto) 8.0 Eos % (Auto) 2.9 Baso % (Auto) 0.5 Absolute Neuts (auto) 9.5 H Absolute Lymphs (auto) 2.64 Nucleated RBC % 0 Sodium 135 Potassium 4.0 Chloride 101 Carbon Dioxide 19.3 L Anion Gap 15 BUN 18 Creatinine 1.32 H Estim Creat Clear Calc 72.57 Est GFR (MDRD) Non-Af 68 BUN/Creatinine Ratio 13.4 Glucose 100 H Calcium 9.9 Total Bilirubin 0.33 AST 51 H ALT 66 H Alkaline Phosphatase 75 Total Protein 7.1 Albumin 4.4 Globulin 2.7 Albumin/Globulin Ratio 1.6 Urine Color Yellow Urine Clarity Cloudy Urine pH 7.0 Ur Specific [place] 1.010 Urine Protein 30 H Urine Glucose (UA) Normal Urine Ketones Negative Urine Occult Blood 250 H Urine Nitrite Negative Urine Bilirubin Negative Urine Urobilinogen Normal Ur Leukocyte Esterase 25 H Radiography Diagnostic Testing: Clinical Impression(s) from Imaging Studies Abdomen/Pelvis CT 10/08/24 17:09 IMPRESSION: 9 mm obstructive stone at the distal left ureter with associated upstream moderate hydroureteronephrosis. Multiple urinary bladder stones are noted. Mild thickening of the urinary bladder wall which may reflect cystitis versus partial nondistention; consider correlation with urinalysis. Enlarged prostate with abutment onto the urinary bladder wall. Reading Location: [facility] Discharge Plan Triage Chief Complaint: Abd Pain ED Provider: Brad Goins Dx/Rx/DC Orders Prescriptions: No Action quetiapine 150 mg tablet extended release 24 hr 150 mg PO 1600 Patient Comments: TAKE 1 TABLET BY MOUTHEONCE DAILY AT 4PM ammonium lactate 12 % cream 1 applic topical DAILY atorvastatin 40 mg tablet 40 mg PO DAILY Certavite-Antioxidant 18-400 mg-mcg tablet 1 tab PO DAILY clonidine HCl 0.2 mg tablet 0.2 mg PO BID doxazosin 2 mg tablet 2 mg PO QHS fluticasone propionate [Allergy Relief (fluticasone)] 50 mcg/actuation spray,suspension 2 spray intranasal DAILY Rx Instructions: administer into each nostril losartan 100 mg tablet 100 mg PO DAILY nabumetone 500 mg tablet 500 mg PO BID PRN (Reason: pain) Patient Comments: take 1 tablet by mouth twice a day oxcarbazepine 600 mg tablet 600 mg PO BID Neosporin (yep-rdp-lrrgn) 3.5mg-400 unit- 5,000 unit/gram ointment 1 applic topical TID PRN (Reason: dry skin) Rx Instructions: To inside of nose for dry patches folic acid 0.4 MG tablet 0.4 mg PO DAILY@0800 fenofibrate nanocrystallized 145 MG tablet 145 mg PO DAILY Fish Oil 1 EACH capsule 3 ea PO DAILY Claritin Liqui-Gel 10 MG capsule 10 mg PO DAILY garlic 200 MG tablet 350 mg PO DAILY polyethylene glycol 3350 [Miralax] 17 gram/dose powder 238 g PO ONCE Qty: 238 0RF Rx Instructions: Mix 8.3oz bottle with 2-32oz bottles of yellow or orange Gatorade. Use as directed by Physician. Primary Care Provider: Ramiro Rosa Referrals: Ramiro Rosa MD [Primary Care Provider] - Print Language: Chinese What to do if you have Problems For any increased pain, shortness of breath, bleeding, nausea or vomiting, chestpain, or any unexpected problems, contact your Primary Care Provider. Call [facility] ([phone]) or report tothe closest Emergency Room. Call 911 if necessary. 10/08/242206 Cosigner Signature (if applicable): CC: Dr. Ramiro Rosa MD ~ Signed [facility]06-05-2025 Evaluation note* Diagnosis Onset Date Resolution Status Admit Date Abdominal pain acute October 08, 2024 8:03pm History of hypertension acute J 2024 8:03pm Intractable abdominal pain acute October 08, 2024 8:03pm Kidney stone on left side acute October 08, 2024 8:03pm [facility] Work Phone: [phone]) 156-249106-05-2025 History and physical note [facility] Medical Records Department [address] [place] [address] H&P Exam - Hospitalist 10/08/242001 MR#: [id number] Acct: [id number] Name: CHAN BURCIAGA Rep #:[id number] : 1980 43 From: Yamileth Aguirre MD PCP: Dr. Ramiro Rosa MD Status:ADM IN Location: [facility] [place] JO847-3 HPI - General General Date of Admission: 10/08/24 Date of Service: 10/08/24 Chief Complaint: Abdominal pain, flank pain. HPI Narrative The patient is a 43 y/o M w/ intellectual debilities living in a [facility] w/ PMHx: CKD stage II per GFR trending, HTN, HLD, Anxiety and Depression/Mood disorder, Obesity who presents to the [facility] ED on 10/08/24 with history of abdominalpain with no associated nausea or emesis but persistent described primarily in the back/flank and periumbilical region with history of previous kidney stones noting that the discomfort in the back/flank is been ongoing for at least 5 dayssent to the urgent care initially referred to the ED given concern for possible UTI and antibiotic needs with no fevers or chills. Patient currently notes painis improved after morphine but discussion with patient and [facility] staff he rates his discomfort previously potentially 7-8 out of 10 in severity and more in the back/flank. Workup in the ED included T97.6, heart rate 101, BP 141/94, respiratory rate 16, percent room air with most recent repeat vital signs T98, heart rate 96, BP 149/90, respiratory rate 18, 97% on room air, CBC with WBC 13.8, hemoglobin 13.7, platelet 327 with left shift, CMP with come back side 19.3, BUN/creatinine 18/1.32, GFR 68, glucose 100, AST/LT 51/66, urinalysis withno obvious overt UTI but pending urine RBC/WBC/squamous epithelial cells/urine bacteria, CT abdomen and pelvis with a 9 mm obstructive stone at the distal leftureter with associated upstream moderate hydroureteronephrosis with multiple urinary bladder stones, mild thickening of the urinary bladder wall reflective of possible cystitis versus partial nondistention with an enlarged prostate withabutment into the urinary bladder wall. In the ED patient ministered Zofran 4 mg IV x 2, morphine 4 mg IV x 1, morphine 6 mg IV x 1, Toradol 30 mg IV x 1. EDdiscussed case with urology. [facility] Medical History Lives in mcc Arthritis Back pain Non-smoker Shortness of breath on exertion Intellectual disability Recurrent major depression in full remission Hyperlipidemia Essential hypertension Urinary tract infection with hematuria Home Medications ?Medication ?Instructions ?Recorded ?Last Taken ?Type fenofibrate nanocrystallized 145 145 mg PO DAILY 07/0812/18/23 History mg tablet folic acid 400 mcg tablet 0.4 mg PO DAILY@0800 9 12/18/23 History garlic 200 mg tablet 350 mg PO DAILY 07/08/18 History loratadine 10 mg capsule (Claritin 10 mg PO DAILY 09/2112/18/23 History Liqui-Gel) omega-3 fatty acids-fish oil 340 3 ea PO DAILY 9 12/15/23 History mg-1,000 mg capsule (Fish Oil) ammonium lactate 12 % topical cream 1 applic topical D AILY 05/29/23 12/18/23 History atorvastatin 40 mg tablet 40 mg PO DAILY 05/29/2312/04 History clonidine HCl 0.2 mg tablet 0.2 mg PO BID 05/29/23 06:30 History doxazosin 2 mg tablet 2 mg PO QHS 05/29/23 4 History fluticasone propionate 50 2 spray intranasal DAILY 12/18/23 History mcg/actuation nasal spray,suspension (Allergy Relief (fluticasone)) losartan 100 mg tablet 100 mg PO DAILY 05/29/23 06:30 History multivitamin-ferrous 1 tab PO DAILY 05/29/2312/04 History fumarate-folic acid 18 mg-400 mcg tablet (Certavite-Antioxidant) nabumetone 500 mg tablet 500 mg PO BID PRN pain 05/29 Unknown History quetiapine 150 mg tablet,extended 150 mg PO 1600 05/2912/18/23 History release 24 hr neomycin-bacitracn Zn-polymyx 3.5 1 applic topical TID PRN dry skin 11/05/23 Unknown History mg-400 unit-5,000 unit/gram top oint (Neosporin (shh-uts-xmlsu)) oxcarbazepine 600 mg tablet 600 mg PO BID 11/05/23 06:30 History polyethylene glycol 3350 17 238 g PO ONCE Colonoscopy prep 11/12/23 12/19/23 Rx gram/dose oral powder (Miralax) #238 grams Allergy/AdvReac Type Severity Reaction Status Date / Time risperidone (From Risperdal) Allergy ANXIETY Verified 10/08/24 16:53 Family History (Updated 10/08/24 @ 20:[address] Yamileth Aguirre MD) Mother Hyperlipidemia Father Hyperlipidemia Surgical History Hx of cystoscopy History of testicular surgery History of ankle surgery Social History household members: other details: Lives with others in residential home number of children: 0 Smoking Status: Never smoker alcohol intake: never substance use type: does not use ROS ROS Narrative Admission Review of Systems: CONSTITUTIONAL: No weight loss, fever, chills, + weakness or fatigue. HEENT: Eyes: No visual loss, blurred vision, double vision or yellow sclerae. Ears, Nose, Throat: No hearing loss, sneezing, congestion, runny nose or sore throat. SKIN: No rash or itching, lesions, wounds. CARDIOVASCULAR: No chest pain, chest pressure or chest discomfort, palpitations,edema, orthopnea, syncopal events. RESPIRATORY: No shortness of breath, cough or sputum, wheezing, hemoptysis. GASTROINTESTINAL: + Decreased appetite. No markedly reported nausea, vomiting ordiarrhea, abdominalpain, melena, BRBPR. GENITOURINARY: + Flank discomfort. No dysuria, frequency, urgency or retention. NEUROLOGICAL: No headache, dizziness, syncope, paralysis, ataxia, numbness or tingling in the extremities, focal weakness, change in bowel or bladder control,seizure. MUSCULOSKELETAL: + muscle, back pain, joint pain or stiffness. HEMATOLOGIC: No anemia, bleeding or bruising. LYMPHATICS: No enlarged nodes. No history of splenectomy. PSYCHIATRIC: + History of anxiety and depression/intellectual debility. ENDOCRINOLOGIC: No reports of sweating, cold or heat intolerance. No polyuria orpolydipsia. ALLERGIES: + Allergic rhinitis. Vital Signs Vital Signs Vital Signs: 10/08/24 16:53 10/08/24 18:52 10/08/24 19:56 Temperature 97.6 F L 98.0 F Temperature Source Temporal Pulse Rate 101 H 78 96 Respiratory Rate 16 20 H 18 Blood Pressure 141/94 H 154/97 H 149/90 H Blood Pressure Mean 109 116 109 Pulse Ox 98 96 97 Oxygen Delivery Method Room Air Room Air Weight Weight: 189 lb 2.506 oz Body Mass Index (BMI) 30.5 Physical Exam Narrative Physical Examination: General: Awake, alert, oriented to self, place, recent vents, [facility]cc staff present, remains cooperative, seated upright in ED bed, pain currently resolved following recent morphine he notes. Skin: Normal color, normal turgor, no icterus, no cyanosis except occasional stage ecchymoses, abrasion. HEENT: AT/NC, EOMI, PERRLA, moderately dry MM, no carotid bruits or JVD noted. Lungs: Mildly diminished, greater bases, appropriate effort, no rales, ronchi orwheezing. Heart: Mildly tachycardic with regular rhythm; no gallop, rub audible. Abdomen: Soft, NTTP currently and no flank discomfort but did have recent morphine, no obvious distention, distant BS, no appreciated HSM. Extremities: No cyanosis, clubbing, or edema. Neurological: Patient awake, alert, oriented as noted, cognitive function impaired baseline but currently is baseline intact per discussion with mcc staff, pupils equally reactive to light andaccommodation, cranial nerves grossly normal, moving all 4 extremities, no focal deficits, strength moderatelyglobally decreased secondary to acute presentation. Psychiatric: Affect appears fatigued, denies any current pain, no acute evidenceof depressive or anxiety feelings but does have underlying psychiatric history. Results Lab / Micro Data 10/08/24 17:17 10/08/24 17:17 Labs: Laboratory Results - last 24 hr 10/08/24 17:17: WBC 13.8 H, RBC 4.73, Hgb 13.7, Hct 40.6, MCV 85.8, MCH 29.0, MCHC 33.7, RDW Std Deviation 41.9, RDW Coeff of Jaime 13.4, Plt Count 327, MPV 9.0, Immature Gran % (Auto) 0.700, Neut % (Auto) 68.7, Lymph % (Auto) 19.2, [place]% (Auto) 8.0, Eos % (Auto) 2.9, Baso % (Auto) 0.5, Absolute Neuts (auto) 9.5 H, Absolute Lymphs (auto) 2.64, Nucleated RBC % 0, Sodium 135, Potassium 4.0, Chloride 101, Carbon Dioxide 19.3 L, Anion Gap 15, BUN 18, Creatinine 1.32 H, Estim Creat Clear Calc 72.57, Est GFR (MDRD) Non-Af 68, BUN/Creatinine Ratio 13.4, Glucose 100 H, Calcium 9.9, Total Bilirubin 0.33, AST 51 H, ALT 66 H, Alkaline Phosphatase 75, Total Protein 7.1, Albumin 4.4, Globulin 2.7, Albumin/ Globulin Ratio 1.6 10/08/24 18:31: Urine Color Yellow, Urine Clarity Cloudy, Urine pH 7.0, Ur Specific [place] 1.010, Urine Protein 30 H, Urine Glucose (UA) Normal, Urine Ketones Negative, Urine Occult Blood 250 H, Urine Nitrite Negative, Urine Bilirubin Negative, Urine Urobilinogen Normal, Ur Leukocyte Esterase 25 H Imaging Radiology Impression Abdomen/Pelvis CT 10/08/24 17:09 IMPRESSION: 9 mm obstructive stone at the distal left ureter with associated upstream moderate hydroureteronephrosis. Multiple urinary bladder stones are noted. Mild thickening of the urinary bladder wall which may reflect cystitis versus partial nondistention; consider correlation with urinalysis. Enlarged prostate with abutment onto the urinary bladder wall. Reading Location: [facility] Assessment & Plan Assessment/Plan (1) Kidney stone on left side: PLAN: Plan The patient is a 43 y/o M w/ intellectual debilities living in a [facility] w/ PMHx: CKD stage II per GFR trending, HTN, HLD, Anxiety and Depression/Mood disorder, Obesity who presents to the [facility] ED on 10/08/24 with history of abdominalpain with no associated nausea or emesis but persistent described primarily in the back/flank and periumbilical region with history of previous kidney stones noting that the discomfort in the back/flank is been ongoing for at least 5 dayssent to the urgent care initially referred to the ED given concern for possible UTI and antibiotic needs with no fevers or chills. #1. Acute Flank Pain secondary to Acute obstructive stone at the distal left ureter with associatedupstream moderate hydronephrosis with also incidentally noted enlarged prostate abutting the urinary bladder wall: Will admit to MS, maintain on hydration, currently urinalysis with no overt evidenceof UTI but awaiting completion of UA with addition of Rocephin if appropriate if needed, will allowcardiac diet until midnight with n.p.o. following for urological intervention, urology consulted and aware of patient, will have PRN oral and IV pain regimen, PRN anti-emetics, monitor I&Os. #2. Chronic Kidney Disease Stage II per GFR trending: Admission BUN/Cr 18/1.32,GFR 68, baseline renal function 1.0-1.3, repeat BMP in AM. #3. Anxiety and depression/mood disorder complicated by underlying intellectualdisability: Will continue patient home oxcarbazepine and Seroquel home regimen, encourage continued outpatient follow-upas previously arranged. #4. Hypertension: Continue home regimen including clonidine, doxazosin, losartan, PRN hydralazine. #5. Hyperlipidemia: Will continue patient home statin and fenofibrate regimen. #6. Obesity: Weight loss and lifestyle changes encouraged. #7. DVT prophylaxis: SCDs, hold chemoprophylaxis for planned urological intervention given size. #8. CODE STATUS: Full Code per discussion with the [facility] staff. Charges/Coding Visit Charges Inpatient E&M: 89357 Init Hosp L3 10/08/242045 Cosigner Signature (if applicable): CC: Dr. Yamileth Aguirre MD; Dr. Ramiro Rosa MD~ Signed [facility]06-05-2025 Radiology Diagnostic study note [facility] Imaging Services [address], [place] [address] Abdomen/Pelvis W IV Cont ONLY MR#: [id number] Acct: [id number] Name: CHAN BURCIAGA Rep #: [id number] : 1980 M 43 From: Silvia Morley MD PCP: Dr. Ramiro Rosa MD Status: REG ER Study:Abdomen/Pelvis W IV Cont ONLY Date of E xam: 10/08/24 Exam# [id number] Ordering Dr: Devin Goins MD PROCEDURE: ABDOMEN/PELVIS W IV CONT ONLY 10/08/2024 REASON FOR EXAM: ABDOMINAL PAIN. HISTORY OF KIDNEY STONES. TECHNIQUE: Abdomen and pelvis CT with intravenous contrast. Coronal and Sagittal reconstruction series were provided. PATIENT PREPARATION: Per protocol ORAL CONTRAST TYPE: None. CONTRAST: 100 mL of Isovue 370 One or more dose reduction techniques were used (e.g., Automated exposure control, adjustment of the mA and/or kV according to patient size, use of iterative reconstruction technique. RADIATION DOSE SUMMARY: DLP: 1100 mGycm COMPARISON: 03/02/2021 FINDINGS: Limited sections of the lung bases demonstrate no focal pulmonary mass. Coronary atherosclerosis. Heart is borderline enlarged. The liver, spleen, pancreas, and both adrenal glands demonstrate no acute findings. Hepatic steatosis. The gallbladder is unremarkable. Tiny hiatal hernia; otherwise stomach is unremarkable. The aorta and IVC demonstrate no acute findings. There is no free air, free fluid or intestinal obstruction. The small bowel loops are not dilated. The appendix is normal. No bowel obstruction. The pelvic structures are intact. There is no solid pelvic mass. 9 mm obstructive stone at the distal left ureter with associated upstream moderate hydroureteronephrosis. Scattered additional nonobstructive stones are noted within the bilateral kidneys. Multiple cystic structures within bilateral kidneys measuring up to 2.9 cm within the left and 1.6 cm within the right. Multiple urinary bladder stones are noted. Mild thickening of the urinary bladder wall which may reflect cystitis versus partial nondistention; consider correlation with urinalysis. Enlarged prostate with abutment onto the urinary bladder wall. Visualized osseous structures demonstrate no acute abnormality. Bilateral small fat containing inguinal hernias, right larger than left. CT/Abdomen/Pelvis W IV Cont ONLY IMPRESSION: 9 mm obstructive stone at the distal left ureter with associated upstream moderate hydroureteronephrosis. Multiple urinary bladder stones are noted. Mild thickening of the urinary bladder wall which may reflect cystitis versus partial nondistention; consider correlation with urinalysis. Enlarged prostate with abutment onto the urinary bladder wall. Reading Location: [facility] CC: Dr. Ramiro Rosa MD; Dr. Brad Goins MD ~ Mold Puller: Signed [facility] [facility] NoteHNO ID: [id number] Author: ZACH CARDENAS MD Service: ? Author Type: Physician Type: Progress Notes Filed: 10/08/2024 16:34 Note Text: [facility] Subjective Chan Burciaga is a 43 year old male. Patient presents with: Back Pain: Mid lower back pain, lower abd pain x 1 week Patient presents with persistent back pain. He was evaluated he we did not hear 09/27/2024. Urinalysis showed blood and he was treated with Keflex. Urine culture had no significant growth. He returns today with mid lumbar pain and now has abdominal pain. He is unable to localize the abdominal pain. He has had no fever, nausea, vomiting, diarrhea, constipation. He has been treated with acetaminophen for pain. He has a history of kidney stones. Back Pain Review of Systems Musculoskeletal: Positive for back pain. Objective BP 134/88 Pulse 97 Temp 36.1 ?C (97 ?F) Resp 20 Wt 85 kg (187 lb 6.3 oz) SpO2 95% Physical Exam Constitutional: General: He is not in acute distress. Appearance: He is not ill-appearing. Comments: Accompanied by mcc caregiver Eyes: Extraocular Movements: Extraocular movements intact. Conjunctiva/sclera: Conjunctivae normal. Pupils: Pupils are equal, round, and reactive to light. Cardiovascular: Rate and Rhythm: Normal rate and regular rhythm. Heart sounds: No murmur heard. Pulmonary: Effort: No respiratory distress. Breath sounds: No wheezing or rhonchi. Abdominal: General: There is no distension. Palpations: There is no mass. Tenderness: There is abdominal tenderness (Discomfort with palpation over the suprapubic area). There is no right CVA tenderness or left CVA tenderness. Musculoskeletal: Cervical back: Neck supple. Comments: BACK: Normal curvature of spine. Midline mid lumbar discomfort with palpation. No paraspinal tenderness. Straight leg test negative. Deep tendon reflexes 2+/4 at patellas. Normal lower extremity strength. Neurological: Mental Status: He is alert. {ASSESSMENT/PLAN: 1. Midline low back pain, unspecified chronicity, unspecified whether sciatica present - ICD9: 724.2, ICD10: M54.50 (primary diagnosis) 2. Abdominal pain, unspecified abdominal location - ICD9: 789.00, ICD10: R10.9 3. Microscopic hematuria - ICD9: 599.72, ICD10: R31.29 4. History of kidney stones - ICD9: V13.01, ICD10: Z87.442 - UA DIP, URINE (POC) - large blood. + protein. Suspect renal calculus. Proceed to the emergency room for persistent back pain and now abdominal pain where imaging is available. His caregiver will take him. Zach Cardenas MD [facility]06-05-2025 History of Present illness Narrative* Zach Cardenas MD - 10/08/2024 4:27 PM EDT [facility] Subjective Chan Burciaga is a 43 year old male. Patient presents with: Back Pain: Mid lower back pain, lower abd pain x 1 week Patient presents with persistent back pain. He was evaluated he we did not hear 09/27/2024. Urinalysis showed blood and he was treated with Keflex. Urine culture had no significant growth. He returns today with mid lumbar pain and now has abdominal pain. He is unable to localize the abdominal pain. He has had no fever, nausea, vomiting, diarrhea, constipation. He has been treated with acetaminophen for pain. He has a history of kidney stones. Back Pain Review of Systems Musculoskeletal: Positive for back pain. Objective BP 134/88 Pulse 97 Temp 36.1 C (97 F) Resp 20 Wt 85 kg (187 lb 6.3 oz) SpO2 95% Physical Exam Constitutional: General: He is not in acute distress. Appearance: He is not ill-appearing. Comments: Accompanied by mcc caregiver Eyes: Extraocular Movements: Extraocular movements intact. Conjunctiva/sclera: Conjunctivae normal. Pupils: Pupils are equal, round, and reactive to light. Cardiovascular: Rate and Rhythm: Normal rate and regular rhythm. Heart sounds: No murmur heard. Pulmonary: Effort: No respiratory distress. Breath sounds: No wheezing or rhonchi. Abdominal: General: There is no distension. Palpations: There is no mass. Tenderness: There is abdominal tenderness (Discomfort with palpation over the suprapubic area). There is no right CVA tenderness or left CVA tenderness. Musculoskeletal: Cervical back: Neck supple. Comments: BACK: Normal curvature of spine. Midline mid lumbar discomfort with palpation. No paraspinal tenderness. Straight leg test negative. Deep tendon reflexes 2+/4 at patellas. Normal lower extremity strength. Neurological: Mental Status: He is alert. {ASSESSMENT/PLAN: 1. Midline low back pain, unspecified chronicity, unspecified whether sciatica present - ICD9: 724.2, ICD10: M54.50 (primary diagnosis) 2. Abdominal pain, unspecified abdominal location - ICD9: 789.00, ICD10: R10.9 3. Microscopic hematuria - ICD9: 599.72, ICD10: R31.29 4. History of kidney stones - ICD9: V13.01, ICD10: Z87.442 - UA DIP, URINE (POC) - large blood. + protein. Suspect renal calculus. Proceed to the emergency room for persistent back pain and now abdominal pain where imaging is available. His caregiver will take him. Zach Cardenas MD MDM Procedures [facility] Telephone encounter Note * Telephone Encounter - YANNICK Jones CNP - 10/02/2024 12:47 PM EDT Reviewed chart. Refill appropriate. [facility]. [id number] Miscellaneous Notes* Telephone Encounter - YANNICK Jones CNP - 10/02/2024 12:47 PM EDT Reviewed chart. Refill appropriate. RX sent. * Telephone Encounter - Puja White - 10/02/2024 12:18 PM EDT Pharmacy sent over fax requesting refills for a 31 day supply with 11 refills OR 93 day supply with3 refills. I pended a 93 day supply with 1 refill. Next appt: 10/15/2024 documented in this encounterSOur [facility] Mer[facility] HospitalQmoafs56-10-2693 Telephone encounter Note* Telephone Encounter - Puja White - 10/02/2024 12:18 PM EDT Pharmacy sent over fax requesting refills for a 31 day supply with 11 refills OR 93 day supply with3 refills. I pended a 93 day supply with 1 refill. Next appt: 10/15/2024 [facility] [id number] Telephone encounter Note* Telephone Encounter - Pari Wiley RN - 09/29/2024 2:15 PM EDT Tena nurse with [facility] ([facility]) calling back-given provider's recommendations and verbalizes understanding. [facility]05-27-2025 Miscellaneous Notes* Telephone Encounter - Pari Wiley RN - 09/29/2024 2:15 PM EDT Tena nurse with [facility] ([facility]) calling back-given provider's recommendations and verbalizes understanding. * Telephone Encounter - Sabrina Dang LPN - 09/28/2024 3:10 PM EDT Left message for patient to return call for results.Sabrina Dang LPN * Telephone Encounter - Nicole Starr PA - 09/28/2024 10:04 AM EDT Please let patient know urine culture revealed no UTI. Please follow-up with PCP to ensure resolution of blood in the urine [facility]05-[facility]25 Telephone encounter Note * Telephone Encounter - Sabrina Dang LPN - 09/28/2024 3:10 PM EDT Left message for patient to return call for results.Sabrina Dang LPN [facility]05-26-2025 Telephone encounter Note* Telephone Encounter - Nicole Starr PA - 09/28/2024 10:04 AM EDT Please let patient know urine culture revealed no UTI. Please follow-up with PCP to ensure resolution of blood in the urine [facility]05-25-2025 NoteHNO ID: [id number] Author: SEAN VERDUZCO APRN.FORENSIC SERGEANT Service: ? Author Type: Nurse Practitioner Type: Progress Notes Filed: 09/27/2024 10:14 Note Text: [facility] Subjective Chan Burciaga is a [...] of care. This note was generated using Epic Playground software. It may contain errors in wording, punctuation, or spelling. Sean Verduzco APRN.SHELBY History and Record Review Clinical information obtained from an independent historian. History obtained from or confirmed by: other (see comments) and parent. External record(s) reviewed: prior outpatient record. Disposition The patient was [facility]. [facility] History of Present illness Narrative* Sean Verduzco APRN.SHELBY - 09/27/2024 10:00 AM EDT [facility] Subjective Chan Burciaga is a 43 year old male. Patient presents with: Hematuria HPI Nontoxic-appearing 43-year-old male presents urgent care accompanied by caregiver. Chief complaint hematuria. Duration of symptoms 2 days. Associated symptoms dysuria and bloody urine. Pain after urination only for short amount of time. History of UTIs and kidney stones. States this feels a UTI. Itis not as painful as a kidney stone. Is able to pass urine without difficulties. No fevers vomitingabdominal pain back pain flank pain testicular pain penile drainage or rashes. States overall feelswell. Past medical history prescription medications allergies reviewed. [...] is no right CVA tenderness, left CVA tendernessor guarding. Musculoskeletal: Cervical back: Normal range of [...] for discharge. Plan of care was discussed withpatient. Patient verbalizes understanding and agrees to plan of care. This note was generated usingEpic Playground software. It may contain errors in wording, punctuation, or spelling. Sean Verduzco APRN.FORENSIC SERGEANT History and Record Review Clinical information obtained from an independent historian. History obtained from or confirmed by:other (see comments) and parent. External record(s) reviewed: prior outpatient record. Disposition The patient was discharged. Procedures documented in [facility]04-17-2025 Telephone encounter Note * Telephone Encounter - Barb Leung MA - 08/20/2024 9:00 AM EDT Prescription Request: Last medication check: 10/24/2023 Last physical exam: 04/20/2024 Next scheduled appointment: 10/15/2024 CSA on file (date): N/A Last urine drug screen: N/A Last date of refill on this medication 05/01/2024 [id number] Miscellaneous Notes* Telephone Encounter - Barb Leung MA - 08/20/2024 9:00 AM EDT Prescription Request: Last medication check: 10/24/2023 Last physical exam: 04/20/2024 Next scheduled appointment: 10/15/2024 CSA on file (date): N/A Last urine drug screen: N/A Last date of refill on this medication 05/01/2024 documented in this [facility]04-07-2025 Telephone encounter Note* Telephone Encounter - Carmella Morrison - 08/10/2024 1:27 PM EDT Error [facility] CenterSdhctw17-87-5667 Miscellaneous Notes* Telephone Encounter - Carmella Morrison - 08/10/2024 1:27 PM EDT Error documented in this [facility]03-20-2025 Telephone encounter Note* Telephone Encounter - Geovanna Rebollar - 07/23/2024 12:38 PM EDT Medication name: nabumetone (Relafen) 500 MG tablet [...] prior to picking up the medication: Yes [facility] CenterQswbsb08-87-2482 Miscellaneous Notes* Telephone Encounter - Geovanna Rebollar - 07/23/2024 12:38 PM EDT Medication name: nabumetone (Relafen) 500 MG tablet [...] up the medication: Yes documented in this [facility]03-11-2025 Telephone encounter Note* Telephone Encounter - Lucila Malik - 07/14/2024 1:08 PM EDT Medication name: doxazosin (Cardura) 2 MG tablet [...] prior to picking up the medication: Yes [facility] CenterYlbvjp58-04-0246 Miscellaneous Notes* Telephone Encounter - Lucila Malik - 07/14/2024 1:08 PM EDT Medication name: doxazosin (Cardura) 2 MG tablet [...] up the medication: Yes documented in this encounterSOur [facility] of Mer[facility] HospitalBfxubf78-70-9581 Telephone encounter Note* Telephone Encounter - Antonella Silva MA - 06/23/2024 10:22 AM EST Prescription Request: Last medication check: 10/24/2023 Last physical exam: 04/20/2024 Next scheduled appointment: 10/20/2024 Last date of refill on this medication: 06/04/23 [facility] CenterSilbmk31-53-3208 Miscellaneous Notes* Telephone Encounter - Antonella Silva MA - 06/23/2024 10:22 AM EST Prescription Request: Last medication check: 10/24/2023 Last physical exam: 04/20/2024 Next scheduled appointment: 10/20/2024 Last date of refill on this medication: 06/04/23 documented in this [facility]12-30-2024 Telephone encounter Note* Telephone Encounter - YANNICK Jones CNP - 05/04/2024 9:45 AM EST Reviewed chart. Refill appropriate. RX sent. [place] [id number] Miscellaneous Notes* Telephone Encounter - YANNICK Jones CNP - 05/04/2024 9:45 AM EST Reviewed chart. Refill appropriate. RX sent. * Telephone Encounter - Rizwana Gupta MA - 05/04/2024 9:43 AM EST [facility] [facility] requesting refill for Folic Acid 400mcg for 9 days w/1 refill. Prescription Request: Last medication check: 10/24/2023 Last physical exam: 04/20/2024 Next scheduled appointment: 10/20/2024 Last date of refill on this medication: 12/03/2023 documented in this [facility]12-30-2024 Telephone encounter Note* Telephone Encounter - Rizwana Gupta MA - 05/04/2024 9:43 AM EST [facility] [facility] requesting refill for Folic Acid 400mcg for 9 days w/1 refill. Prescription Request: Last medication check: 10/24/2023 Last physical exam: 04/20/2024 Next scheduled appointment: 10/20/2024 Last date of refill on this medication: 12/03/2023 [place] [id number] Telephone encounter Note* Telephone Encounter - YANNICK Jones CNP - 05/01/2024 11:31 AM EST Reviewed chart. Refill appropriate. [address]. [address]whhi02-01-7679 Miscellaneous Notes* Telephone Encounter - YANNICK Jones CNP - 05/01/2024 11:31 AM EST Reviewed chart. Refill appropriate. RX sent. * Telephone Encounter - Lexus Landrum MA - 05/01/2024 10:04 AM EST Prescription Request: Last medication check: 10/24/23 Last physical exam: 04/20/24 Next scheduled appointment: 10/20/24 Last date of refill on this medication 12/03/23 90 day 1 refill documented in this [facility]12-27-2024 Telephone encounter Note* Telephone Encounter - Lexus Landrum MA - 05/01/2024 10:04 AM EST Prescription Request: Last medication check: 10/24/23 Last physical exam: 04/20/24 Next scheduled appointment: 10/20/24 Last date of refill on this medication 12/03/23 90 day 1 refill [place] [id number] Evaluation + Plan note* Assessment & Plan Note - Ramiro Rosa MD - 04/20/2024 12:50 PM ESTAssociated Problem(s): Seasonal allergic rhinitis due to pollen Stable, continue Flonase and Claritin. [id number] Evaluation + Plan note* Assessment & Plan Note - Ramiro Rosa MD - 04/20/2024 12:50 PM ESTAssociated Problem(s): Recurrent major depressive disorder, in full remission (HCC) Stable, managed by psych continue current medications [facility] CenterFantdk91-85-9099 Miscellaneous Notes* Assessment & Plan Note - Ramiro Rosa MD - 04/20/2024 12:50 PM ESTAssociated Problem(s): Seasonal allergic rhinitis due to pollen Stable, continue Flonase and Claritin. * Assessment & Plan Note - Ramiro Rosa MD - 04/20/2024 12:50 PM EST Associated Problem(s): Recurrent major depressive disorder, in full remission (HCC) Stable, managed by psych continue current medications * Assessment & Plan Note - Ramiro Rosa MD - 04/20/2024 12:49 PM EST Associated Problem(s): Intellectual disability Stable, no current problem * Assessment & Plan Note - Ramiro Rosa MD - 04/20/2024 12:49 PM EST Associated Problem(s): Hyperlipidemia LDL goal <100 controlled, continue a atorvastatin 40 mg daily and fenofibrate 145 mg daily * Assessment & Plan Note - Ramiro Rosa MD - 04/20/2024 12:48 PM EST Associated Problem(s): Essential hypertension Can roll, continue clonidine 0.2 mg, doxazosin 2 mg losartan 100 mg * Assessment & Plan Note - Ramiro Rosa MD - 04/20/2024 12:48 PM EST Associated Problem(s): Loud snoring Stable, no sleep apnea on sleep sleep study documented in this [facility]12-16-2024 Evaluation + Plan note* Assessment & Plan Note - Ramiro Rosa MD - 04/20/2024 12:49 PM EST Associated Problem(s): Intellectual disability Stable, no current problem [facility] [id number] Evaluation + Plan note* Assessment & Plan Note - Ramiro Rosa MD - 04/20/2024 12:49 PM ESTAssociated Problem(s): Hyperlipidemia LDL goal <100 controlled, continue a atorvastatin 40 mg daily and fenofibrate 145 mg daily [facility] CenterLfbxvh69-79-5730 Evaluation + Plan note* Assessment & Plan Note - Raimro Rosa MD - 04/20/2024 12:48 PM ESTAssociated Problem(s): Essential hypertension Can roll, continue clonidine 0.2 mg, doxazosin 2 mg losartan 100 mg [place] [id number] Evaluation + Plan note* Assessment & Plan Note - Ramiro Rosa MD - 04/20/2024 12:48 PM ESTAssociated Problem(s): Loud snoring Stable, no sleep apnea on sleep sleep study [id number] History of Present illness Narrative* Lexus Landrum MA - 04/20/2024 11:00 AM EST Patient verified by last name and date of . * Ramiro Rosa MD - 04/20/2024 11:00 AM EST Images from the original note were not included. 04/20/2024 Chan Burciaga (: 1980) is a 43 y.o. male , Established patient, here for evaluation of thefollowing chief complaint(s): Annual Exam, Blood Work, and [...] MD 04/20/2024 12:50 PM documented in this [facility]12-02-2024 Telephone encounter Note* Telephone Encounter - Virgie Cee APRN - [facility] - 04/06/2024 2:12 PM EST Reviewed chart. Refill appropriate. RX sent. [facility] CenterBrmrjq59-07-2077 Miscellaneous Notes* Telephone Encounter - YANNICK Jones CNP - 04/06/2024 2:12 PM EST Reviewed chart. Refill appropriate. RX sent. * Telephone Encounter - Rizwana Gupta MA - 04/06/2024 1:37 PM EST Prescription Request: Last medication check: 10/24/2023 Last physical exam: 04/18/2023 Next scheduled appointment: 04/20/2024 Last date of refill on this medication: 11/12/2023 documented in this [facility]12-02-2024 Telephone encounter Note* Telephone Encounter - Rizwana Gupta MA - 04/06/2024 1:37 PM EST Prescription Request: Last medication check: 10/24/2023 Last physical exam: 04/18/2023 Next scheduled appointment: 04/20/2024 Last date of refill on this medication: 11/12/2023 [facility] CenterYaynyz34-50-5085 Telephone encounter Note* Telephone Encounter - YANNICK Jones CNP - 02/03/2024 10:05 AM EDT [facility] CenterXpyboj10-44-1577 Miscellaneous Notes* Telephone Encounter - YANNICK Jones CNP - 02/03/2024 10:05 AM EDT * Telephone Encounter - Rizwana Gupta MA - 02/03/2024 9:28 AM EDT Pharmacy requesting refill. Prescription Request: Last medication check: 10/24/2023 Last physical exam: 04/18/2023 Next scheduled appointment: 04/20/2024 Last date of refill on this medication: 03/29/2023 documented in this encounterSOur Lady of Mercy HospitalMpehng39-40-3347 Telephone encounter Note* Telephone Encounter - Rizwana Gupta MA - 02/03/2024 9:28 AM EDT Pharmacy requesting refill. Prescription Request: Last medication check: 10/24/2023 Last physical exam: 04/18/2023 Next scheduled appointment: 04/20/2024 Last date of refill on this medication: 03/29/2023 [facility] [id number] Telephone encounter Note* Telephone Encounter - Lynn Watts - 01/17/2024 11:08 AM EDT Message released to patient as written. YANNICK Deal CNP 01/16/2024 9:02 PM EDT Home sleep study demonstrates no sleep related disorder- no sleep apnea detected. Patient's further questions if applicable: Iesha, patient's caregiver voiced understanding, no further questions or concerns at this time. Were all questions from office addressed or relayed to the patient from encounter: Yes [facility] CenterVmmnpw11-58-6627 Miscellaneous Notes* Telephone Encounter - Lynn Watts - 01/17/2024 11:08 AM EDT Message released to patient as written. YANNICK Deal CNP 01/16/2024 9:02 PM EDT Home sleep study demonstrates no sleep related disorder- no sleep apnea detected. Patient's further questions if applicable: Iesha, patient's caregiver voiced understanding, no further questions or concerns at this time. Were all questions from office addressed or relayed to the patient from encounter: Yes documented in this [facility]08-15-2024 [facility] Medical Records Department [address] [place] [address] History Physical Exam 12/19/23 1005 MR#: [id number] Acct: [id number] Name: CHAN BURCIAGA Rep #: [id number] : 1980 43 From: Michael Friend DO PCP: Dr. Ramiro Rosa MD Status:[facility] Location: [place] [address] HPI - General General Date of Admission: 12/19/23 Date of Service: 12/19/23 Chief Complaint: Screening colonoscopy HPI Narrative CHAN BURCIAGA, is a 43 M who presents today for screening colonoscopy. He is never had a colonoscopy in the past. He does not have any abdominal pain, chest pain or shortness of breath. [facility] Medical History (Updated 12/16/23 @ 15:42 [...] History mg-400 unit-5,000 unit/gram top oint (Neosporin ([id number])) oxcarbazepine 600 mg tablet 600 mg PO [...] 12/19/23 09:20 12/19/23 09: (more content not included)...[facility]08-15-2024 Telephone encounter Note* Telephone Encounter - Lexus Landrum MA - 12/19/2023 7:45 AM EDT Prescription Request: Last medication check: 10/24/23 Last physical exam: 04/18/23 Next scheduled appointment: 04/20/24 Last date of refill on this medication 06/07/23 [facility] CenterHnsdip75-12-1717 Miscellaneous Notes* Telephone Encounter - Lexus Landrum MA - 12/19/2023 7:45 AM EDT Prescription Request: Last medication check: 10/24/23 Last physical exam: 04/18/23 Next scheduled appointment: 04/20/24 Last date of refill on this medication 06/07/23 documented in this [facility]07-30-2024 Telephone encounter Note* Telephone Encounter - YANNICK Jones CNP - 12/03/2023 5:32 PM EDT Reviewed chart. Refill appropriate. RX sent. [facility] CenterBpzuzp05-99-6311 Miscellaneous Notes* Telephone Encounter - YANNICK Jones CNP - 12/03/2023 5:32 PM EDT Reviewed chart. Refill appropriate. RX sent. * Telephone Encounter - Puja White - 12/03/2023 4:40 PM EDT Prescription Request: Last medication check: 10/24/23 Last physical exam: 04/18/23 Next scheduled appointment: 01/09/24 Last date of refill on this medication 06/26/23 documented in this [facility]07-30-2024 Telephone encounter Note* Telephone Encounter - Puja White - 12/03/2023 4:40 PM EDT Prescription Request: Last medication check: 10/24/23 Last physical exam: 04/18/23 Next scheduled appointment: 01/09/24 Last date of refill on this medication 06/26/23 [facility] CenterLiwbzx84-24-1391 Telephone encounter Note* Telephone Encounter - Lexus Landrum MA - 11/12/2023 7:05 AM EDT Prescription Request: Last medication check: 10/24/23 Last physical exam: 04/18/23 Next scheduled appointment: 04/20/24 Last date of refill on this medication 06/04/23 [facility] CenterRfgxmq48-41-0264 Miscellaneous Notes* Telephone Encounter - Lexus Landrum MA - 11/12/2023 7:05 AM EDT Prescription Request: Last medication check: 10/24/23 Last physical exam: 04/18/23 Next scheduled appointment: 04/20/24 Last date of refill on this medication 06/04/23 documented in this encounterSOur Lady of Mercy HospitalXhpnli95-14-7575 Evaluation + Plan note* Assessment & Plan Note - Ramiro Rosa MD - 10/24/2023 11:48 AM EDT Associated Problem(s): Seasonal allergic rhinitis due to pollen Stable, continue Claritin and Flonase. [facility] CenterJxntns91-93-6188 Evaluation + Plan note* Assessment & Plan Note - Ramiro Rosa MD - 10/24/2023 11:48 AM EDTAssociated Problem(s): Recurrent major depressive disorder, in full remission (HCC) Remission, continue Seroquel 150 mg nightly [facility] CenterTvlbqg60-03-8449 Miscellaneous Notes* Assessment & Plan Note - Ramiro Rosa MD - 10/24/2023 11:48 AM EDTAssociated Problem(s): Seasonal allergic rhinitis due to pollen Stable, continue Claritin and Flonase. * Assessment & Plan Note - Ramiro Rosa MD - 10/24/2023 11:48 AM EDT Associated Problem(s): Recurrent major depressive disorder, in full remission (HCC) Remission, continue Seroquel 150 mg nightly * Assessment & Plan Note - Ramiro Rosa MD - 10/24/2023 11:47 AM EDT Associated Problem(s): Hyperlipidemia LDL goal <100 Controlled, continue atorvastatin 40 mg daily and fenofibrate 100 mg daily * Assessment & Plan Note - Ramiro Rosa MD - 10/24/2023 11:46 AM EDT Associated Problem(s): Essential hypertension Controlled, continue doxazosin 2 mg, clonidine 0.2 mg twice a day and losartan 100 mg daily * Assessment & Plan Note - Ramiro Rosa MD - 10/24/2023 11:45 AM EDT Associated Problem(s): Loud snoring Order home sleep study. * Assessment & Plan Note - Ramiro Rosa MD - 10/24/2023 11:45 AM EDT Associated Problem(s): MILAGROS (obstructive sleep apnea) Witnessed apneic episodes, will schedule patient for home sleep study. documented in this [facility]06-20-2024 Evaluation + Plan note* Assessment & Plan Note - Ramiro Rosa MD - 10/24/2023 11:47 AM EDT Associated Problem(s): Hyperlipidemia LDL goal <100 Controlled, continue atorvastatin 40 mg daily and fenofibrate 100 mg daily [facility] [id number] Evaluation + Plan note* Assessment & Plan Note - Ramiro Rosa MD - 10/24/2023 11:46 AM EDTAssociated Problem(s): Essential hypertension Controlled, continue doxazosin 2 mg, clonidine 0.2 mg twice a day and losartan 100 mg daily [facility] CenterTscdia14-30-3253 Evaluation + Plan note* Assessment & Plan Note - Ramiro Rosa MD - 10/24/2023 11:45 AM EDTAssociated Problem(s): Loud snoring Order home sleep study. [facility] CenterJtltvf70-63-1853 Evaluation + Plan note* Assessment & Plan Note - Ramiro Rosa MD - 10/24/2023 11:45 AM EDTAssociated Problem(s): MILAGROS (obstructive sleep apnea) Witnessed apneic episodes, will schedule patient for home sleep study. [facility] CenterPbybso10-45-6121 History of Present illness Narrative* Lexus Landrum MA - 10/24/2023 9:30 AM EDT Patient verified by last name and date of . * Ramiro Rosa MD - 10/24/2023 9:30 AM EDT Images from the original note were not included. 10/24/2023 Chan Burciaga (: 1980) is a 43 y.o. male , Established patient, here for evaluation of thefollowing chief complaint(s): Hypertension, Hyperlipidemia, Depression, Medication Check [...] hyperlipidemia, depression which is in full remission seasonalallergies and his hammerer helper that is with him said they were [...] MD 10/24/2023 11:50 AM documented in this [facility]05-24-2024 Evaluation + Plan note* Assessment & Plan Note - Ramiro Rosa MD - 09/27/2023 12:24 PM EDT Associated Problem(s): Chronic midline low back pain without sciatica Will refill his nabumetone and he is to take that regularly twice a day for up to 1 to 2 weeks. Rx sent if we need to we will send him back to physical therapy. [facility] CenterXfxrei90-59-2018 Miscellaneous Notes* Assessment & Plan Note - Ramiro Rosa MD - 09/27/2023 12:24 PM EDTAssociated Problem(s): Chronic midline low back pain without sciatica Will refill his nabumetone and he is to take that regularly twice a day for up to 1 to 2 weeks. Rx sent if we need to we will send him back to physical therapy. documented in this [facility]05-24-2024 History of Present illness Narrative* Lexus Landrum MA - 09/27/2023 11:15 AM EDT Patient verified by last name and date of . * Ramiro Rosa MD - 09/27/2023 11:15 AM EDT Images from the original note were not included. 09/27/2023 Chan Burciaga (: 1980) is a 42 y.o. male , Established patient, here for evaluation of thefollowing chief complaint(s): Back Pain (Was better after [...] MD 09/27/2023 12:24 PM documented in this [place] [address]-21-2024 Discharge summary Author Milly Andrew [facility] August 25, 2023 9:15pm Note Date/Time August 25, 2023 9:1 5pm [facility] Physical Therapy [facility] [address] [place] [address] / REHABILITATION SERVICES DISCHARGE SUMMARY MR#: [id number] Acct: [id number] Name: CHAN BURCIAGA Rep #: [id number] : 1980 42 From: Milly Andrew PT, [...] BETTER. HE IS APPROPRIATE FOR DISCHARGE TO [facility] AT THIS TIME. UPON EXAM TODAY: THIS [...] please feel free to call me at [phone]. Thank you for the referral of thispatient. Sincerely, Milly Andrew, PT, Cert MDT Balance/Gait/Functional tests Balance/Special Test Scores Oswestry Low Back Score: 8 30 Second Chair Rise Test Seconds: 16 Improvement % Improvement: 50 <Electronically signed by Milly Andrew PT Cert. MDT> 08/25/232114 CC: Dr. Ramiro Rosa MD ~ MERY Signed [facility] Work Phone: 1(588) 822-946203-07-2024 Telephone encounter Note* Telephone Encounter - Puja White - 07/11/2023 8:27 AM EST Prescription Request: Last medication check: 10/18/22 Last physical exam: 04/18/23 Next scheduled appointment: 10/24/23 Last date of refill on this medication 01/08/23 [facility] CenterZdyutb87-92-9332 Miscellaneous Notes* Telephone Encounter - Puja White - 07/11/2023 8:27 AM EST Prescription Request: Last medication check: 10/18/22 Last physical exam: 04/18/23 Next scheduled appointment: 10/24/23 Last date of refill on this medication 01/08/23 documented in this [facility]02-27-2024 Telephone encounter Note* Telephone Encounter - Puja White - 07/02/2023 12:04 PM EST Prescription Request: Last medication check: 10/18/22 Last physical exam: 04/18/23 Next scheduled appointment: 10/24/23 Last date of refill on this medication 08/08/22 [facility] CenterRjowfz56-76-0490 Miscellaneous Notes* Telephone Encounter - Puja White - 07/02/2023 12:04 PM EST Prescription Request: Last medication check: 10/18/22 Last physical exam: 04/18/23 Next scheduled appointment: 10/24/23 Last date of refill on this medication 08/08/22 documented in this [facility]02-02-2024 Telephone encounter Note* Telephone Encounter - Puja White - 06/07/2023 8:01 AM EST Prescription Request: Last medication check: 10/18/22 Last physical exam: 04/18/23 Next scheduled appointment: 10/24/23 Last date of refill on this medication 08/08/22 [address]hcika01-92-9810 Miscellaneous Notes* Telephone Encounter - uPja White - 06/07/2023 8:01 AM EST Prescription Request: Last medication check: 10/18/22 Last physical exam: 04/18/23 Next scheduled appointment: 10/24/23 Last date of refill on this medication 08/08/22 documented in this [facility]12-20-2023 Telephone encounter Note* Telephone Encounter - Antonella Silva MA - 04/24/2023 11:30 AM EST Prescription Request: Last medication check: 10/18/22 Last physical exam: 04/18/23 Next scheduled appointment: 10/24/2023 Last date of refill on this medication: 02/19/22 [facility] CenterMvzmix81-35-5162 Miscellaneous Notes* Telephone Encounter - Antonella Silva MA - 04/24/2023 11:30 AM EST Prescription Request: Last medication check: 10/18/22 Last physical exam: 04/18/23 Next scheduled appointment: 10/24/2023 Last date of refill on this medication: 02/19/22 documented in this [facility]12-14-2023 Evaluation + Plan note* Assessment & Plan Note - Ramiro Rosa MD - 04/18/2023 10:35 AM EST Associated Problem(s): Chronic midline low back pain without sciatica Continue nabumetone and will start him in physical therapy. [place] [id number] Miscellaneous Notes* Assessment & Plan Note - [...] mg and losartan 100 mg documented in [facility]12-14-2023 Evaluation + Plan note* Assessment & Plan Note - Ramiro Rosa MD - 04/18/2023 10:34 AM EST Associated Problem(s): Hyperlipidemia LDL goal <100 Controlled, continue atorvastatin 40 mg daily and fenofibrate 145 mg daily [facility] CenterAshcky39-13-7269 Evaluation + Plan note* Assessment & Plan Note - Ramiro Rosa MD - 04/18/2023 10:34 AM ESTAssociated Problem(s): Intellectual disability Stable, no significant change [address]Fiyswv51-95-3525 Evaluation + Plan note* Assessment & Plan Note - Ramiro Rosa MD - 04/18/2023 10:33 AM ESTAssociated Problem(s): Recurrent major depressive disorder, in full remission (HCC) Remission, continue Trileptal and Seroquel, these are managed by psych [facility] CenterIyifrd00-55-9750 Evaluation + Plan note* Assessment & Plan Note - Ramiro Rosa MD - 04/18/2023 10:33 AM ESTAssociated Problem(s): Seasonal allergic rhinitis due to pollen Currently stable, continue allergy medicines as needed. [place] [id number] Evaluation + Plan note* Assessment & Plan Note - Ramiro Rosa MD - 04/18/2023 10:33 AM ESTAssociated Problem(s): Essential hypertension Controlled, continue clonidine 0.2 mg, doxazosin 2 mg and losartan 100 mg [place] [id number] History of Present illness Narrative* Antonella Silva [...] in about 6 months (around 10/18/2023). SUBJECTIVE/OBJECTIVE: HPI -Chan comes in today for an annual exam, [...] MD 04/18/2023 10:35 AM documented in this [facility]11-24-2023 Telephone encounter Note* Telephone Encounter - VirgieYANNICK Willams CNP - 03/29/2023 11:06 AM EST Reviewed chart. Refill appropriate. RX sent. [facility] CenterAknqbj81-21-8910 Miscellaneous Notes* Telephone Encounter - YANNICK Jones CNP - 03/29/2023 11:06 AM EST Reviewed chart. Refill appropriate. RX sent. * Telephone Encounter - Antonella Silva MA - 03/29/2023 11:04 AM EST Prescription Request: Last medication check: 10/18/22 Last physical exam: 04/19/22 Next scheduled appointment: 04/18/23 Last date of refill on this medication 8.4.23 documented in this encounterSOur [facility] HospitalYjokku28-20-9817 Telephone encounter Note* Telephone Encounter - Antonella Silva MA - 03/29/2023 11:04 AM EST Prescription Request: Last medication check: 10/18/22 Last physical exam: 04/19/22 Next scheduled appointment: 04/18/23 Last date of refill on this medication 8.4.23 [facility] CenterAbpxdp88-98-5332 Telephone encounter Note* Telephone Encounter - Ramiro Rosa MD - 02/18/2023 4:11 PM EDT Okareli, thank you [facility] CenterOeyklw39-85-6782 Miscellaneous Notes* Telephone Encounter - Ramiro Rosa [...] EDT S: Patient's caregiver Iesha spoke with [facility] nurse regarding toe injury B: Onset [...] are no appointments available this week that [facility] nurse can schedule. Offered first available which is 02-25-23. Declined stating that pt has an appointment on that day with his foot doctor. Asking if there is anyway for him to be seen this week. R: TE sent to the office for review. Please contact Iesha at [phone] if able to be seen sooner or with further interventions. Advised to keep covered with antibiotic ointment. Ice if painful.Understands care advice. Instructed to call back with new or worsening symptoms. Reason for Disposition Toenail is completely torn off Protocols used: Toe Jleegs-[id number]-KA documented in this [facility]2023 Telephone encounter Note* Telephone Encounter - Antonella Silva MA - 02/18/2023 3:46 PM EDT Notified, states he went to urgent care today but will keep appt on 02/25/23 with the foot doctor as well. [facility] CenterEpmuez90-98-8438 Telephone encounter Note* Telephone Encounter - Ramiro Rosa MD - 02/18/2023 3:45 PM EDT If he has an appointment on the with the foot doctor he should keep that. [facility] CenterUvuvju01-54-3194 History of Present illness Narrative* Yulia Lujan APRN.FORENSIC SERGEANT - 02/18/2023 3:00 PM EDT This note was created using TrackerSphereriter. Subjective Chan Burciaga is a 42 year old male. 42 year old male with PMH mild ID, impulse control, NOS, mycotic toenails, hyperlipidemia, and organic brain delusional personality disorder presents for complaints of toe pain. Acute onset 0130 today He ripped his toenail off, citing that he has a habit of doing same. States bored and nothing to do Accompanied by staff of [facility], where patient resides, citing he has done similar in past. 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 Wanted to get him checked out Staff applied topical ATB cream No fever or chills No active bleeding Pain when he puts on his tennis shoes. The history is provided by the patient and a caregiver. The history is limited by a developmental delay. No language and literature division chair was used. Pain (foot) Pain location: right [...] mg tablet Take 500 mg by mouth. Aguqlnfe-AizhstapyBe-Nrjcjfrie 3.5-500-10,000 va-finl-jles oint APPLY TOPICALLY TO INSIDE OF NOSE 3TIMES DAILY NEEDED FOR DRY PATCHES omega 7-jeu-zxn-fish oil 300 mg-100 mg- 150 mg-1,000 mg [...] with podiatry in 2 weeks Yulia Lujan APRN.FORENSIC SERGEANT [facility] Tele[facility] Note * Telephone Encounter - Milly Miller RN - 02/18/2023 12:27 PM EDT S: Patient's caregiver Iesha spoke with [facility] nurse regarding toe injury B: Onset [...] are no appointments available this week that [facility] nurse can schedule. Offered first available which is 02-25-23. Declined stating that pt has an appointment on that day with his foot doctor. Asking if there is anyway for him to be seen this week. R: TE sent to the office for review. Please contact Iesha at [phone] if able to be seen sooner or with further interventions. Advised to keep covered with antibiotic ointment. Ice if painful.Understands care advice. Instructed to call back with new or worsening symptoms. Reason for Disposition Toenail is completely torn off Protocols used: Toe Jlsyhf-OZBMZ-IP [facility] CenterQennah28-92-1539 Telephone encounter Note* Telephone Encounter - Cindi Fisher MA - 01/08/2023 11:18 AM EDT Prescription Request: Last medication check: 10/18/22 Last physical exam: 04/19/22 Next scheduled appointment: 04/18/23 Last date of refill on this medication 07/09/22 31 days 5 refills [facility] CenterUvbqkf36-07-4351 Miscellaneous Notes* Telephone Encounter - Cindi Fisher MA - 01/08/2023 11:18 AM EDT Prescription Request: Last medication check: 10/18/22 Last physical exam: 04/19/22 Next scheduled appointment: 04/18/23 Last date of refill on this medication 07/09/22 31 days 5 refills documented in this encounterSOur [facility] HospitalZxlwjn54-46-6997 Telephone encounter Note* Telephone Encounter - Cindi Fisher MA - 12/07/2022 6:51 AM EDT Prescription Request: Last medication check: 10/18/22 Last physical exam: 04/19/22 Next scheduled appointment: 04/18/23 Last date of refill on this medication 08/14/22 16g 3 refills [facility] CenterMgiefh99-67-8522 Miscellaneous Notes* Telephone Encounter - Cindi Fisher MA - 12/07/2022 6:51 AM EDT Prescription Request: Last medication check: 10/18/22 Last physical exam: 04/19/22 Next scheduled appointment: 04/18/23 Last date of refill on this medication 08/14/22 16g 3 refills documented in this [facility]06-29-2023 Telephone encounter Note* Telephone Encounter - Antonella Silva MA - 11/01/2022 10:58 AM EDT Prescription Request: Last medication check: 10/18/22 Last physical exam: 04/19/22 Next scheduled appointment: 04/18/23 Last date of refill on this medication: 05/15/22 [facility] CenterAncdwt99-58-6697 Miscellaneous Notes* Telephone Encounter - Antonella Silva MA - 11/01/2022 10:58 AM EDT Prescription Request: Last medication check: 10/18/22 Last physical exam: 04/19/22 Next scheduled appointment: 04/18/23 Last date of refill on this medication: 05/15/22 documented in this [facility]06-22-2023 Telephone encounter Note* Telephone Encounter - Azul Walters - 10/25/2022 3:00 PM EDT Message released to patient as written. Patient's further questions if applicable: Yes Iesha states she has a new # [phone]. Iesha states they need the order for the prescription faxed to their office at [phone]. Stating the patient should take the medication once every 12 hours as needed for pain. Please advise. Were all questions from office addressed or relayed to the patient from encounter: Yes [facility] CenterHfbizs76-38-9427 Miscellaneous Notes* Telephone Encounter - Azul Walters - 10/25/2022 3:00 PM EDT Message released to patient as written. Patient's further questions if applicable: Yes Iesha states she has a new # [phone]. Iesha states they need the order for the prescription faxed to their office at [phone]. Stating the patient should take the medication [...] note were not included. YANNICK Deal CNP Clinical End User Consultant 23 hours ago (8:32 AM) HL It [...] note were not included. YANNICK Deal CNP Clinical End User Consultant 8 minutes ago (8:32 AM) HL It [...] hours, as needed. * Telephone Encounter - Madelin Puentes - 10/19/2022 2:14 PM EDT Name of caller: Iesha Cali Contact phone number: [phone] Relationship to Patient: Mannequin Molder, Usp Provider: Dr. Rosa Practice: [place] Chief Complaint/Reason for Call: Caller stated they [...] order and to please fax this to: [phone] Attn: Laureen Gilmore. Please advise. Thank you. Best time of day caller can be reached: Any Patient advised that office/PCP has 24-48 business hours to return their call: Yes documented in this encounterSOur [facility] of Mercy HospitalLkdvnx79-39-6674 Telephone encounter Note* Telephone Encounter - Antonella Silva MA - 10/24/2022 9:17 AM EDT Called Iesha, no answer and no vm. [facility] CenterVneffy22-30-8257 Telephone encounter Note* Telephone Encounter - Antonella Silva MA - 10/23/2022 8:20 AM EDT Images from the original note were not included. YANNICK Deal CNP [facility] Rikki Levine Clinical End User Consultant 23 hours ago (8:32 AM) HL It was sent for 60 tablets. Even though it was sent saying twice a day he can use it twice a day, which is every 12 hours, as needed. Called Iesha, no answer and no vm. [facility] CenterYevqdk00-96-3455 Telephone encounter Note* Telephone Encounter - Antonella Silva MA - 10/22/2022 8:41 AM EDT Images from the original note were not included. YANNICK Deal CNP [facility] Rikki Levine Clinical End User Consultant 8 minutes ago (8:32 AM) HL It was sent for 60 tablets. Even though it was sent saying twice a day he can use it twice a day, which is every 12 hours, as needed. I called Iesha back, no answer and vm is not set up. [facility] CenterPddydl07-76-7793 Telephone encounter Note* Telephone Encounter - YANNICK Deal CNP - 10/22/2022 8:32 AM EDT It was sent for 60 tablets. Even though it was sent saying twice a day he can use it twice a day, which is every 12 hours, as needed. [facility] CenterBkvncv11-05-1980 Telephone encounter Note* Telephone Encounter - Madelin MaguireJose Manuel Puentes - 10/19/2022 2:14 PM EDT Name of caller: Iesha Carranzacker Contact phone number: [phone] Relationship to Patient: Mannequin Molder, Usp Provider: Dr. Rosa Practice: [facility] Chief [...] order and to please fax this to: [phone] Attn: Laureen Gilmore. Please advise. Thank you. Best time of day caller can be reached: Any Patient advised that office/PCP has 24-48 business hours to return their call: Yes [facility] CenterMxhins96-40-2227 Evaluation + Plan note* Assessment & Plan Note - Ramiro Rosa MD - 10/18/2022 4:30 PM EDTAssociated Problem(s): Recurrent major depressive disorder, in full remission (HCC) Remission, continue Trileptal and Seroquel as prescribed by his psych. [facility] CenterCsfrvl47-41-9301 Evaluation + Plan note* Assessment & Plan Note - Ramiro Rosa MD - 10/18/2022 4:30 PM EDTAssociated Problem(s): Hyperlipidemia LDL goal <100 Controlled, continue atorvastatin 40 mg daily and fenofibrate 145 mg daily [facility] CenterGdjgyr64-95-6894 Evaluation + Plan note* Assessment & Plan Note - Ramiro Rosa MD - 10/18/2022 4:30 PM EDTAssociated Problem(s): Acute midline low back pain without sciatica Comes and goes, we will get him a refill on his nabumetone to be used twice a day as needed. [address]Lpqwsu13-00-6011 Miscellaneous Notes* Assessment & Plan Note - [...] losartan 100 mg daily documented in this [facility]06-15-2023 Evaluation + Plan note* Assessment & Plan Note - Ramiro Rosa MD - 10/18/2022 4:29 PM EDT Associated Problem(s): Essential hypertension Controlled, continue losartan 100 mg daily [facility] CenterJbyxxp92-31-2838 History of Present illness Narrative* Lexus Landrum MA - 10/18/2022 2:15 PM EDT Patient verified by last name and date of . Patient wants a human services worker in the room during during the visit. no [employer] Supervisor javon Tran in room during visit * Ramiro Rosa [...] He needs paperwork filled out for [employer]. Review of Systems Constitutional: Negative for activity [...] MD 10/18/2022 4:31 PM documented in this [facility]04-24-2023 Evaluation + Plan note* Assessment & Plan Note - Ramiro Rosa MD - 08/27/2022 12:35 PM EDT Associated Problem(s): Acute midline low back pain without sciatica We will send him for x-rays of his lumbar spine. Nabumetone 500 mg twice a day for up to 7 days and he can use Tylenol in addition to that. [facility] CenterXgkcpi86-40-0523 Miscellaneous Notes* Assessment & Plan Note - Ramiro Rosa MD - 08/27/2022 12:35 PM EDTAssociated Problem(s): Acute midline low back pain without sciatica We will send him for x-rays of his lumbar spine. Nabumetone 500 mg twice a day for up to 7 days and he can use Tylenol in addition to that. documented in this [facility]04-24-2023 History of Present illness Narrative* Ramiro Rosa [...] MIGUEL ÁNGEL Monaco comes in today complaining of some mid [...] MD 08/27/2022 12:36 PM documented in this [facility]04-05-2023 Telephone encounter Note* Telephone Encounter - YANNICK Jones CNP - 08/08/2022 9:05 AM EDT Reviewed chart. Refill appropriate. RX sent. [facility] CenterLvbloe59-63-8919 Miscellaneous Notes* Telephone Encounter - YANNICK Jones [...] 90 day 1 refill documented in this [place] [address]-05-2023 Telephone encounter Note* Telephone Encounter - Lexus Landrum MA - 08/08/2022 8:23 AM EDT Prescription Request: Last medication check: 10/12/21 Last physical exam: 04/19/22 Next scheduled appointment: 10/18/22 CSA on file (date): na Last urine drug screen: na Last date of refill on this medication 02/19/22 loratadine, folic acid, fenofibrate, multivitamin, omega 3 all 1month 5 refills 04/19/22 atorvastatin 90 day 1 refill [facility] CenterBzkhrg30-25-4205 Telephone encounter Note* Telephone Encounter - YANNICK Deal CNP - 07/09/2022 2:58 PM EST Rx sent. Follow up as scheduled. [facility] CenterSehylu23-61-7091 Miscellaneous Notes* Telephone Encounter - YANNICK Deal [...] 90 day 1 refill documented in this encounterSOur [facility] of Mercy HospitalIkdbum30-50-4721 Telephone encounter Note* Telephone Encounter - Lexus Landrum MA - 07/09/2022 7:23 AM EST Prescription Request: Last medication check: 10/12/21 Last physical exam: 04/19/22 Next scheduled appointment: 10/18/22 CSA on file (date): na Last urine drug screen: na Last date of refill on this medication 02/26/22 90 day 1 refill [facility] CenterKepyoh25-53-4757 Telephone encounter Note* Telephone Encounter - Cindi Fisher - 05/04/2022 12:42 PM EST Iesha notified. [facility] Pglbks69-25-6876 Miscellaneous Notes* Telephone Encounter - Cindi Fisher - 05/04/2022 12:42 PM EST Iesha notified. * Telephone Encounter - YANNICK Jones CNP - 05/04/2022 12:24 PM EST The fax was reviewed. Blood pressures remain elevated. Increase losartan to 100 mg and monitor blood pressure daily, provide readings to office in 2 weeks. Will sent new rx * Telephone Encounter - Dmitry Marichuy - 05/04/2022 11:05 AM EST URGENT: PATIENT WILL BE OUT OF BP MEDICATION THIS WEEKEND. Name of caller: Iesha Contact phone number: [phone] Relationship to Patient: Mannequin Molder at [facility] Provider: Dr Rosa Practice: [facility] Chief Complaint/Reason for Call: Caller sent [...] return their call: Yes documented in this encounterS[facility] [id number] Telephone encounter Note* Telephone Encounter - YANNICK Jones CNP - 05/04/2022 12:24 PM EST The fax was reviewed. Blood pressures remain elevated. Increase losartan to 100 mg and monitor blood pressure daily, provide readings to office in 2 weeks. [id number] Telephone encounter Note* Telephone Encounter - Dmitry Benedict - 05/04/2022 11:05 AM EST URGENT: PATIENT WILL BE OUT OF BP MEDICATION THIS WEEKEND. Name of caller: Iesha Contact phone number: [phone] Relationship to Patient: Mannequin Molder at [facility] Provider: Dr Rosa Practice: [facility] Chief Complaint/Reason for Call: Caller sent [...] business hours to return their call: Yes [facility]+Reason for visit Narrative* Chief Complaint COVID COVID TEST Reason for Visit COVID-19 [facility] Work Phone: Chief complaint+Reason for visit Narrative* Chief Complaint COVID COVID TEST HTN [facility] Visit [facility] Work Phone: Discharge summary Author Austin Mares [facility] Note Date/Time October 09, 2024 3:53p m [facility] Medical Records Department [address] [place] [address] Instructions for Home/Discharge Instructions 10/09/24 1545 MR#: [id number] Acct: [id number] Name: CHAN BURCIAGA Rep #:[id number] : 1980 43 From: Austin avalos MD PCP: Dr. Ramiro Rosa MD Status:ADM IN Discharge Instructions Diet Discharge Diet: Low fat / Low cholesterol DC O2, CPAP, BIPAP needs Home O2 Discharge instructions: No Dressing / Incision Discharge Activity: Return to Normal Activity Dressing / Incision Call your doctor if you observe: Fever of 101 or Higher, Shortness of breath, Dizziness, Fainting spells, Swelling in the ankles, Chest pain and Increased palpitations (irregular heartbeat) Follow Up Care Test Results: Test results from this visit will be discussed in further detail at your follow- up appointment, if applicable. Discharge Plan Admission Admit Date/Time: 10/08/24 20:03 Attending Provider: Austin Mares Primary Care Provider: Ramiro Rosa Consulting Providers: Salvador Rush; Yamileth Aguirre Instructions Patient Instructions: Having a Ureteral Stent Additional Instructions / Restrictions: Constipation is a risk with narcotics therefore I do recommend qzyu-fne-sxqrmoi stool softeners while taking narcotics. Discharge Orders/Prescriptions Prescriptions: New oxycodone 5 mg Tablet 5 mg PO Q4H PRN PRN (Reason: Pain Score 4-10) 3 Days Qty: 10 0RF Continued quetiapine 150 mg tablet extended release 24 hr 150 mg PO 1600 Patient Comments: TAKE 1 TABLET BY MOUTHEONCE DAILY AT 4PM ammonium lactate 12 % cream 1 applic topical DAILY atorvastatin 40 mg tablet 40 mg PO DAILY Certavite-Antioxidant 18-400 mg-mcg tablet 1 tab PO DAILY clonidine HCl 0.2 mg tablet 0.2 mg PO BID doxazosin 2 mg tablet 2 mg PO QHS fluticasone propionate [Allergy Relief (fluticasone)] 50 mcg/actuation spray,suspension 2 spray intranasal DAILY Rx Instructions: administer into each nostril losartan 100 mg tablet 100 mg PO DAILY nabumetone 500 mg tablet 500 mg PO BID PRN (Reason: pain) Patient Comments: take 1 tablet by mouth twice a day oxcarbazepine 600 mg tablet 600 mg PO BID Neosporin (dca-pzw-wddth) 3.5mg-400 unit- 5,000 unit/gram ointment 1 applic topical TID PRN (Reason: dry skin) Rx Instructions: To inside of nose for dry patches folic acid 0.4 MG tablet 0.4 mg PO DAILY@0800 fenofibrate nanocrystallized 145 MG tablet 145 mg PO DAILY Fish Oil 1 EACH capsule 3 ea PO DAILY Claritin Liqui-Gel 10 MG capsule 10 mg PO DAILY garlic 200 MG tablet 350 mg PO DAILY polyethylene glycol 3350 [Miralax] 17 gram/dose powder 238 g PO ONCE Qty: 238 0RF Rx Instructions: Mix 8.3oz bottle with 2-32oz bottles of yellow or orange Gatorade. Use as directed by Physician. Referrals / Follow Up: Ramiro Rosa MD [Primary Care Provider] - Within 1 Week Salvador Rush MD [Med Staff - Active Staff] - Within 2 Weeks Disposition Disposition (needs filled in before D/C Order can be placed): Home, Self Care 10/09/24 0684<Electronically signed by Austin Mares MD>Austin Mares MD CC: Dr. Yamileth Aguirre MD; Dr. Ramiro Rosa MD; Dr. Salvador Rush MD ~ Signed [facility] Work Phone: Discharge summary Author Austin Mares [facility] Note Date/Time October 09, 2024 4:15p m [facility] Medical Records Department [address] [place] [address] Discharge Summary 10/09/24 1608 MR#: [id number] Acct: [id number] Name: CHAN BURCIAGA Rep #:[id number] : 1980 43 From: Austin avalos MD PCP: Dr. Ramiro Rosa MD Status:ADM IN Location: [facility] [place] [id number] Providers Date of Admission: 10/08/24 Primary Care Physician: Dr. Ramiro Rosa MD Consultations 10/08/24 21:21 Consult: Urology Routine Consulting Provider: Salvador Rush Reason for Consult: Obstructive nephrolithiasis, hydronephrosis EMERGENT Consult: No MD Notified: Yes Date Notified: 10/08/24 Time Notified: 20:04 Method of Notification: ED Physician Initiated Reason For Visit: NEPHROLITHIASIS, OBSTRUCTIVE WITH HYDRONEPHROSIS Diagnosis Discharge Diagnosis (1) Kidney stone on left side: Status: Acute Code(s): N20.0 - Calculus of kidney Medications at Discharge Home Medications fenofibrate nanocrystallized 145 mg tablet 145 mg PO DAILY 07/08/18 folic acid 400 mcg tablet 0.4 mg PO DAILY@0800 07/08/18 garlic 200 mg tablet 350 mg PO DAILY 07/08/18 loratadine 10 mg capsule (Claritin Liqui-Gel) 10 mg PO DAILY 07/08/18 omega-3 fatty acids-fish oil 340 mg-1,000 mg capsule (Fish Oil) 3 ea PO DAILY 07/08/18 ammonium lactate 12 % topical cream 1 applic topical DAILY 05/29/23 atorvastatin 40 mg tablet 40 mg PO DAILY 05/29/23 clonidine HCl 0.2 mg tablet 0.2 mg PO BID 05/29/23 doxazosin 2 mg tablet 2 mg PO QHS 05/29/23 fluticasone propionate 50 mcg/actuation nasal spray,suspension (Allergy Relief (fluticasone)) 2 spray intranasal DAILY 05/29/23 losartan 100 mg tablet 100 mg PO DAILY 05/29/23 multivitamin-ferrous fumarate-folic acid 18 mg-400 mcg tablet (Certavite- Antioxidant) 1 tab PO DAILY 05/29/23 nabumetone 500 mg tablet 500 mg PO BID PRN pain 05/29/23 quetiapine 150 mg tablet,extended release 24 hr 150 mg PO 1600 05/29/23 neomycin-bacitracn Zn-polymyx 3.5 mg-400 unit-5,000 unit/gram top oint (Neosporin (hhr-jnj-jsrns)) 1 applic topical TID PRN dry skin 11/05/23 oxcarbazepine 600 mg tablet 600 mg PO BID 11/05/23 polyethylene glycol 3350 17 gram/dose oral powder (Miralax) 238 g PO ONCE Colonoscopy prep #238 grams 11/12/23 oxycodone 5 mg tablet 5 mg PO Q4H PRN PRN Pain Score 4-10 3 days #10 tabs 10/09/24 Hospital Course Operations - (Cystoscopy with left ureteral stent) Procedures None Summary of Care Provided Minutes Spent on Discharge: 32 Hospital Course: Per HPI: The patient is a 43 y/o M w/ intellectual debilities living in a mcc w/ PMHx: CKD stage II per GFR trending, HTN, HLD, Anxiety and Depression/Mood disorder, Obesity who presents to the [facility] ED on 10/08/24 with history of abdominal pain with no associated nausea or emesis but persistent described primarily in the back/flank and periumbilical region with history of previous kidney stones noting that the discomfort in the back/flank is been ongoing for at least 5 days sent to the urgent care initially referred to the EDgiven concern for possible UTI and antibiotic needs with no fevers or chills. Patient currently notes pain is improved after morphine but discussion with patient and mcc staff he rates his discomfort previously potentially 7-8 out of 10 in severity and more in the back/flank. Workup in the ED included T97.6, heart rate 101, BP 141/94, respiratory rate 16, percent room air with most recent repeat vital signs T98, heart rate 96, BP 149/90, respiratory rate 18, 97% on room air, CBC with WBC 13.8, hemoglobin 13.7, platelet 327 with left shift, CMP with come back side 19.3, BUN/creatinine 18/1.32, GFR 68, glucose 100, AST/LT 51/66, urinalysis with no obvious overt UTI but pending urine RBC/WBC/squamous epithelial cells/urine bacteria, CT abdomen and pelvis with a 9mm obstructive stone at the distal left ureter with associated upstream moderatehydroureteronephrosis with multiple urinary bladder stones, mild thickening of the urinary bladder wall reflective of possible cystitis versus partial nondistention with an enlarged prostate with abutment into the urinary bladder wall. In the ED patient ministered Zofran 4 mg IV x 2, morphine 4 mg IV x 1, morphine 6 mg IV x 1, Toradol 30 mg IV x 1. ED discussed case with urology. Hospital Course: 1. Left ureteral stone?43-year-old male who resides in a mcc secondary to intellectual debilities presents to the hospital with abdominal pain and leftflank pain. He was to have a left ureteral stone. The pain going on for about 5 days so urology was consulted and had a cystoscopy today with a left ureteral stent. He will need to follow-up as an outpatient with urology for definitive laser lithotripsy. He did tolerate the procedure well and there is no signs of UTI within normal white blood cell count, and an unimpressive, at least from an infectious standpoint, urinalysis. Will plan for 3 days of oxycodone on discharge secondary to the flank pain, I do recommend continued stool softeners while taking narcotics. 2. Essential hypertension, hyperlipidemia, anxiety, depression, mood disorder, intellectual disability are chronic medical conditions which complicate his care. His home medications were continued where appropriate Physical Exam Narrative General: Alert, Oriented x3, Cooperative, No apparent distress HEENT: Atraumatic, PERRLA, EOMI, Normocephalic Oral: Moist Mucosa Neck: Supple, No JVD Lungs: Clear to auscultation, Normal air movement, No rhonchi, No wheeze, No rales Cardiovascular: Regular rate, Regular Rhythm, Normal S1, Normal S2, No murmurs Abdomen: Soft, Non Tender, Non-Distended, No Hepato-splenomegaly Extremities: No edema, Capillary Refill Less than 3 Seconds Skin: No rashes, No breakdown Musculoskeletal: No Tenderness to Palpation of Joints or Extremities Neurological: No focal neurological deficits, Motor Exam 5/5 strength throughout, Sensory exam intact to light touch and pain Psych/Mental Status: Normal Affect, Appropriate Weight / BMI Weight Weight: 189 lb 9.561 oz Body Mass Index (BMI) 31.6 ABG / Lab / Microbiology Data 10/09/24 05:03 10/09/24 05:03 Laboratory: Laboratory Results - last 24 hr 10/08/24 17:17: WBC 13.8 H, RBC 4.73, Hgb 13.7, Hct 40.6, MCV 85.8, MCH 29.0, MCHC 33.7, RDW Std Deviation 41.9, RDW Coeff of Jaime 13.4, Plt Count 327, MPV 9.0, Immature Gran % (Auto) 0.700, Neut % (Auto) 68.7, Lymph % (Auto) 19.2, [place]% (Auto) 8.0, Eos % (Auto) 2.9, Baso % (Auto) 0.5, Absolute Neuts (auto) 9.5 H, Absolute Lymphs (auto) 2.64, Nucleated RBC % 0, Sodium 135, Potassium 4.0, Chloride 101, Carbon Dioxide 19.3 L, Anion Gap 15, BUN 18, Creatinine 1.32 H, Estim Creat Clear Calc 72.57, Est GFR (MDRD) Non-Af 68, BUN/Creatinine Ratio 13.4, Glucose 100 H, Calcium 9.9, Total Bilirubin 0.33, AST 51 H, ALT 66 H, Alkaline Phosphatase 75, Total Protein 7.1, Albumin 4.4, Globulin 2.7, Albumin/Globulin Ratio 1.6 10/08/24 18:31: Urine Color Yellow, Urine Clarity Cloudy, Urine pH 7.0, Ur Specific [place] 1.010, Urine Protein 30 H, Urine Glucose (UA) Normal, Urine Ketones Negative, Urine Occult Blood 250 H, Urine Nitrite Negative, Urine Bilirubin Negative, Urine Urobilinogen Normal, Ur Leukocyte Esterase 25 H, UrineRBC > 100 SEEN, Urine WBC 0 SEEN, Ur Squamous Epith Cells 0 SEEN, Urine Bacteria2+, Urine Mucus 0 SEEN 10/09/24 05:03: WBC 9.1, RBC 4.41 L, Hgb 12.7 L, Hct 38.1 L, MCV 86.4, MCH 28.8,MCHC 33.3, RDW Std Deviation 42.9, RDW Coeff of Jaime 13.7, Plt Count 332, MPV 8.8, Immature Gran % (Auto) 0.300, Neut % (Auto) 53.3, Lymph % (Auto) 31.8, [place]% (Auto) 8.4, Eos % (Auto) 5.5 H, Baso % (Auto) 0.7, Absolute Neuts (auto) 4.9, Absolute Lymphs (auto) 2.90, Nucleated RBC % 0, Sodium 137, Potassium 3.8, Chloride 104, Carbon Dioxide 21.2, Anion Gap 12, BUN 17, Creatinine 1.39 H, Estim Creat Clear Calc 67.68, Est GFR (MDRD) Non-Af 64, BUN/Creatinine Ratio 12.4, Glucose 100 H, Calcium 9.1, Total Bilirubin 0.38, AST 40 H, ALT 55 H, Alkaline Phosphatase 67, Total Protein 6.2, Albumin 3.9, Globulin 2.2, Albumin/Globulin Ratio 1.8 Radiography Diagnostic Testing: Radiology Impression Abdomen/Pelvis CT 10/08/24 17:09 IMPRESSION: 9 mm obstructive stone at the distal left ureter with associated upstream moderate hydroureteronephrosis. Multiple urinary bladder stones are noted. Mild thickening of the urinary bladder wall which may reflect cystitis versus partial nondistention; consider correlation with urinalysis. Enlarged prostate with abutment onto the urinary bladder wall. Reading Location: [facility] D/C Instructions Discharge Diet: Low fat / Low cholesterol Call your doctor if you observe: Fever of 101 or Higher, Shortness of breath, Dizziness, Fainting spells, Swelling in the ankles, Chest pain and Increased palpitations (irregular heartbeat) DC O2, CPAP, BIPAP Needs Home O2 Discharge instructions: No Meaningful Use Info Meaningful Use Meaningful Use Diagnoses (Choose all that apply): None applicable Ischemic Stroke Statin Dosing Therapy Reference: STATIN DOSE THERAPY REFERENCE: * Patients > 75 years receive moderate or high dose statin therapy. * Patients 75 years or YOUNGER should receive HIGH intensity statin dose unless contraindicated. You will be required to document reason for non-treatment if statin daily dose does not meet guidelines. HIGH DOSE STATIN THERAPY DAILY Atorvastatin > than or = to 40 mg Rosuvastatin > than or = to 20 mg Amlodipine + Atorvastatin > than or = to 2.5/40 mg Ezetimibe + Simvastatin 10/80 mg Simvastatin 80mg Discharge Plan Admission Admit Date/Time: 10/08/24 20:03 Attending Provider: Austin Mares Primary Care Provider: Ramiro Rosa Consulting Providers: Salvador Rush; Yamileth Aguirre Instructions Patient Instructions: Having a Ureteral Stent Additional Instructions / Restrictions: Constipation is a risk with narcotics therefore I do recommend oyge-eoj-kefncxu stool softeners while taking narcotics. Discharge Orders/Prescriptions Prescriptions: New oxycodone 5 mg Tablet 5 mg PO Q4H PRN PRN (Reason: Pain Score 4-10) 3 Days Qty: 10 0RF Continued quetiapine 150 mg tablet extended release 24 hr 150 mg PO 1600 Patient Comments: TAKE 1 TABLET BY MOUTHEONCE DAILY AT 4PM ammonium lactate 12 % cream 1 applic topical DAILY atorvastatin 40 mg tablet 40 mg PO DAILY Certavite-Antioxidant 18-400 mg-mcg tablet 1 tab PO DAILY clonidine HCl 0.2 mg tablet 0.2 mg PO BID doxazosin 2 mg tablet 2 mg PO QHS fluticasone propionate [Allergy Relief (fluticasone)] 50 mcg/actuation spray,suspension 2 spray intranasal DAILY Rx Instructions: administer into each nostril losartan 100 mg tablet 100 mg PO DAILY nabumetone 500 mg tablet 500 mg PO BID PRN (Reason: pain) Patient Comments: take 1 tablet by mouth twice a day oxcarbazepine 600 mg tablet 600 mg PO BID Neosporin (yzy-kfm-pkill) 3.5mg-400 unit- 5,000 unit/gram ointment 1 applic topical TID PRN (Reason: dry skin) Rx Instructions: To inside of nose for dry patches folic acid 0.4 MG tablet 0.4 mg PO DAILY@0800 fenofibrate nanocrystallized 145 MG tablet 145 mg PO DAILY Fish Oil 1 EACH capsule 3 ea PO DAILY Claritin Liqui-Gel 10 MG capsule 10 mg PO DAILY garlic 200 MG tablet 350 mg PO DAILY polyethylene glycol 3350 [Miralax] 17 gram/dose powder 238 g PO ONCE Qty: 238 0RF Rx Instructions: Mix 8.3oz bottle with 2-32oz bottles of yellow or orange Gatorade. Use as directed by Physician. Referrals / Follow Up: Ramiro Rosa MD [Primary Care Provider] - Within 1 Week Salvador Rush MD [Med Staff - Active Staff] - Within 2 Weeks Disposition Disposition (needs filled in before D/C Order can be placed): Home, Self Care Charges/Coding Visit Charges Inpatient E&M: 96011 Disch Hosp >30min 10/09/24 1615 <Electronically signed by Austin Mares MD> Cosigner Signature (if applicable): CC: Dr. Ramiro Rosa MD; Dr. Austin Mares MD~ Signed [facility] Work Phone: Evaluation note* Diagnosis Onset Date Resolution Status COVID-19 acute [facility] Work Phone: Evaluation noteNo assessment information available [facility] Work Phone: Evaluation note* Diagnosis Acute midline low back pain without sciatica- Primary Acute midline low back pain without sciatica [facility] Diagnosis Acute midline low back pain without sciatica [facility] Diagnosis Essential hypertension- Primary Unspecified essential hypertension Hyperlipidemia LDL goal <100 Other and unspecified hyperlipidemia Recurrent major depressive disorder, in full remission (HCC) Acute midline low back pain without sciatica [facility] Diagnosis Seasonal allergic rhinitis due to pollen [facility]* Diagnosis Toenail torn away- Primary [facility] Diagnosis Seasonal allergic rhinitis due to pollen [facility]* Diagnosis Annual physical exam- Primary Routine [...] pain without sciatica [facility]* Diagnosis Onset Date Resolution Status Urinary tract infection with hematuria acute [facility] Work Phone: Evaluation note* Diagnosis Essential hypertension- Primary Unspecified essential hypertension Hyperlipidemia LDL goal <100 Other and unspecified hyperlipidemia [facility]* Diagnosis Chronic midline low back pain without sciatica- Primary [facility]* Diagnosis Essential hypertension- Primary Unspecified essential hypertension Hyperlipidemia LDL goal <100 Other and unspecified hyperlipidemia Recurrent major depressive disorder, in full remission (HCC) Seasonal allergic rhinitis due to pollen MILAGROS (obstructive sleep apnea) Obstructive sleep apnea (adult) (pediatric) Loud snoring Screening for colon cancer Special screening for malignant neoplasms, colon [facility] Diagnosis Hyperlipidemia LDL goal <100 Other and unspecified hyperlipidemia [facility]* Diagnosis Seasonal allergic rhinitis due to pollen documented [facility]* Diagnosis MILAGROS (obstructive sleep apnea) Obstructive sleep apnea (adult) (pediatric) Loud snoring documented in this encounter [facility]* Diagnosis Annual physical exam- Primary [...] and unspecified hyperlipidemia [facility]* Diagnosis Annual physical exam- [...] and unspecified hyperlipidemia [facility]* Diagnosis Acute cystitis with hematuria- Primary Acute cystitis documented [facility]* Diagnosis Annual physical exam- [...] and unspecified hyperlipidemia [facility] Diagnosis Onset Date Resolution Status Admit Date Abdominal pain acute October 08, 2024 8:03pm History of hypertension acute J 2024 8:03pm Intractable abdominal pain acute October 08, 2024 8:03pm Kidney stone on left side acute October 08, 2024 8:03pm [facility] Work Phone: Evaluation note* Diagnosis Midline low back pain, unspecified chronicity, unspecified whether sciatica present- Primary Abdominal pain, unspecified abdominal location Microscopic hematuria History of kidney stones Personal history of urinary calculi [facility] Author Yamileth Aguirre [facility] Note Date/Time October 08, 2024 8:46p m [facility] Medical Records Department [address] [place] [address] H&P Exam - Hospitalist 10/08/242001 MR#: [id number] Acct: [id number] Name: CHAN BURCIAGA Rep #:[id number] : 1980 43 From: Yamileth Aguirre MD PCP: Dr. Ramiro Rosa MD Status:ADM IN Location: [facility] [place] [id number] HPI - General General Date of Admission: 10/08/24 Date of Service: 10/08/24 Chief Complaint: Abdominal pain, flank pain. HPI Narrative The patient is a 43 y/o M w/ intellectual debilities living in a mcc w/ PMHx: CKD stage II per GFR trending, HTN, HLD, Anxiety and Depression/Mood disorder, Obesity who presents to the [facility] ED on 10/08/24 with history of abdominalpain with no associated nausea or emesis but persistent described primarily in the back/flank and periumbilical region with history of previous kidney stones noting that the discomfort in the back/flank is been ongoing for at least 5 dayssent to the urgent care initially referred to the ED given concern for possible UTI and antibiotic needs with no fevers or chills. Patient currently notes painis improved after morphine but discussion with patient and mcc staff he rates his discomfort previously potentially 7-8 out of 10 in severity and more in the back/flank. Workup in the ED included T97.6, heart rate 101, BP 141/94, respiratory rate 16, percent room air with most recent repeat vital signs T98, heart rate 96, BP 149/90, respiratory rate 18, 97% on room air, CBC with WBC 13.8, hemoglobin 13.7, platelet 327 with left shift, CMP with come back side 19.3, BUN/creatinine 18/1.32, GFR 68, glucose 100, AST/LT 51/66, urinalysis withno obvious overt UTI but pending urine RBC/WBC/squamous epithelial cells/urine bacteria, CT abdomen and pelvis with a 9 mm obstructive stone at the distal leftureter with associated upstream moderate hydroureteronephrosis with multiple urinary bladder stones, mild thickening of the urinary bladder wall reflective of possible cystitis versus partial nondistention with an enlarged prostate withabutment into the urinary bladder wall. In the ED patient ministered Zofran 4 mg IV x 2, morphine 4 mg IV x 1, morphine 6 mg IV x 1, Toradol 30 mg IV x 1. EDdiscussed case with urology. [facility] Medical History Lives in mcc Arthritis Back pain Non-smoker Shortness of breath on exertion Intellectual disability Recurrent major depression in full remission Hyperlipidemia Essential hypertension Urinary tract infection with hematuria Home Medications ?Medication ?Instructions ?Recorded ?Last Taken ?Type fenofibrate nanocrystallized 145 145 mg PO DAILY 07/0812/18/23 History mg tablet folic acid 400 mcg tablet 0.4 mg PO DAILY@0800 9 12/18/23 History garlic 200 mg tablet 350 mg PO DAILY 07/08/18 History loratadine 10 mg capsule (Claritin 10 mg PO DAILY 09/2112/18/23 History Liqui-Gel) omega-3 fatty acids-fish oil 340 3 ea PO DAILY 9 12/15/23 History mg-1,000 mg capsule (Fish Oil) ammonium lactate 12 % topical cream 1 applic topical D AILY 05/29/23 12/18/23 History atorvastatin 40 mg tablet 40 mg PO DAILY 05/29/2312/04 History clonidine HCl 0.2 mg tablet 0.2 mg PO BID 05/29/23 06:30 History doxazosin 2 mg tablet 2 mg PO QHS 05/29/23 4 History fluticasone propionate 50 2 spray intranasal DAILY 12/18/23 History mcg/actuation nasal spray,suspension (Allergy Relief (fluticasone)) losartan 100 mg tablet 100 mg PO DAILY 05/29/23 06:30 History multivitamin-ferrous 1 tab PO DAILY 05/29/2312/04 History fumarate-folic acid 18 mg-400 mcg tablet (Certavite-Antioxidant) nabumetone 500 mg tablet 500 mg PO BID PRN pain 05/29 Unknown History quetiapine 150 mg tablet,extended 150 mg PO 1600 05/2912/18/23 History release 24 hr neomycin-bacitracn Zn-polymyx 3.5 1 applic topical TID PRN dry skin 11/05/23 Unknown History mg-400 unit-5,000 unit/gram top oint (Neosporin (adw-flm-eblpc)) oxcarbazepine 600 mg tablet 600 mg PO BID 11/05/23 06:30 History polyethylene glycol 3350 17 238 g PO ONCE Colonoscopy prep 11/12/23 12/19/23 Rx gram/dose oral powder (Miralax) #238 grams Allergy/AdvReac Type Severity Reaction Status Date / Time risperidone (From Risperdal) Allergy ANXIETY Verified 10/08/24 16:53 Family History (Updated 10/08/24 @ 20:[address] Yamileth Aguirre MD) Mother Hyperlipidemia Father Hyperlipidemia Surgical History Hx of cystoscopy History of testicular surgery History of ankle surgery Social History household members: other details: Lives with others in residential home number of children: 0 Smoking Status: Never smoker alcohol intake: never substance use type: does not use ROS ROS Narrative Admission Review of Systems: CONSTITUTIONAL: No weight loss, fever, chills, + weakness or fatigue. HEENT: Eyes: No visual loss, blurred vision, double vision or yellow sclerae. Ears, Nose, Throat: No hearing loss, sneezing, congestion, runny nose or sore throat. SKIN: No rash or itching, lesions, wounds. CARDIOVASCULAR: No chest pain, chest pressure or chest discomfort, palpitations,edema, orthopnea, syncopal events. RESPIRATORY: No shortness of breath, cough or sputum, wheezing, hemoptysis. GASTROINTESTINAL: + Decreased appetite. No markedly reported nausea, vomiting ordiarrhea, abdominal pain, melena, BRBPR. GENITOURINARY: + Flank discomfort. No dysuria, frequency, urgency or retention. NEUROLOGICAL: No headache, dizziness, syncope, paralysis, ataxia, numbness or tingling in the extremities, focal weakness, change in bowel or bladder control,seizure. MUSCULOSKELETAL: + muscle, back pain, joint pain or stiffness. HEMATOLOGIC: No anemia, bleeding or bruising. LYMPHATICS: No enlarged nodes. No history of splenectomy. PSYCHIATRIC: + History of anxiety and depression/intellectual debility. ENDOCRINOLOGIC: No reports of sweating, cold or heat intolerance. No polyuria orpolydipsia. ALLERGIES: + Allergic rhinitis. Vital Signs Vital Signs Vital Signs: 10/08/24 16:53 10/08/24 18:52 10/08/24 19:56 Temperature 97.6 F L 98.0 F Temperature Source Temporal Pulse Rate 101 H 78 96 Respiratory Rate 16 20 H 18 Blood Pressure 141/94 H 154/97 H 149/90 H Blood Pressure Mean 109 116 109 Pulse Ox 98 96 97 Oxygen Delivery Method Room Air Room Air Weight Weight: 189 lb 2.506 oz Body Mass Index (BMI) 30.5 Physical Exam Narrative Physical Examination: General: Awake, alert, oriented to self, place, recent vents, [facility] staff present, remains cooperative, seated upright in ED bed, pain currently resolved following recent morphine he notes. Skin: Normal color, normal turgor, no icterus, no cyanosis except occasional stage ecchymoses, abrasion. HEENT: AT/NC, EOMI, PERRLA, moderately dry MM, no carotid bruits or JVD noted. Lungs: Mildly diminished, greater bases, appropriate effort, no rales, ronchi orwheezing. Heart: Mildly tachycardic with regular rhythm; no gallop, rub audible. Abdomen: Soft, NTTP currently and no flank discomfort but did have recent morphine, no obvious distention, distant BS, no appreciated HSM. Extremities: No cyanosis, clubbing, or edema. Neurological: Patient awake, alert, oriented as noted, cognitive function impaired baseline but currently is baseline intact per discussion with [facility] staff, pupils equally reactive to light and accommodation, cranial nerves grossly normal, moving all 4 extremities, no focal deficits, strength moderatelyglobally decreased secondary to acute presentation. Psychiatric: Affect appears fatigued, denies any current pain, no acute evidenceof depressive or anxiety feelings but does have underlying psychiatric history. Results Lab / Micro Data 10/08/24 17:17 10/08/24 17:17 Labs: Laboratory Results - last 24 hr 10/08/24 17:17: WBC 13.8 H, RBC 4.73, Hgb 13.7, Hct 40.6, MCV 85.8, MCH 29.0, MCHC 33.7, RDW Std Deviation 41.9, RDW Coeff of Jaime 13.4, Plt Count 327, MPV 9.0, Immature Gran % (Auto) 0.700, Neut % (Auto) 68.7, Lymph % (Auto) 19.2, [place]% (Auto) 8.0, Eos % (Auto) 2.9, Baso % (Auto) 0.5, Absolute Neuts (auto) 9.5 H, Absolute Lymphs (auto) 2.64, Nucleated RBC % 0, Sodium 135, Potassium 4.0, Chloride 101, Carbon Dioxide 19.3 L, Anion Gap 15, BUN 18, Creatinine 1.32 H, Estim Creat Clear Calc 72.57, Est GFR (MDRD) Non-Af 68, BUN/Creatinine Ratio 13.4, Glucose 100 H, Calcium 9.9, Total Bilirubin 0.33, AST 51 H, ALT 66 H, Alkaline Phosphatase 75, Total Protein 7.1, Albumin 4.4, Globulin 2.7, Albumin/Globulin Ratio 1.6 10/08/24 18:31: Urine Color Yellow, Urine Clarity Cloudy, Urine pH 7.0, Ur Specific [place] 1.010, Urine Protein 30 H, Urine Glucose (UA) Normal, Urine Ketones Negative, Urine Occult Blood 250 H, Urine Nitrite Negative, Urine Bilirubin Negative, Urine Urobilinogen Normal, Ur Leukocyte Esterase 25 H Imaging Radiology Impression Abdomen/Pelvis CT 10/08/24 17:09 IMPRESSION: 9 mm obstructive stone at the distal left ureter with associated upstream moderate hydroureteronephrosis. Multiple urinary bladder stones are noted. Mild thickening of the urinary bladder wall which may reflect cystitis versus partial nondistention; consider correlation with urinalysis. Enlarged prostate with abutment onto the urinary bladder wall. Reading Location: [id number] Assessment & Plan Assessment/Plan (1) Kidney stone on left side: PLAN: Plan The patient is a 43 y/o M w/ intellectual debilities living in a [facility] w/ PMHx: CKD stage II per GFR trending, HTN, HLD, Anxiety and Depression/Mood disorder, Obesity who presents to the [facility] ED on 10/08/24 with history of abdominalpain with no associated nausea or emesis but persistent described primarily in the back/flank and periumbilical region with history of previous kidney stones noting that the discomfort in the back/flank is been ongoing for at least 5 dayssent to the urgent care initially referred to the ED given concern for possible UTI and antibiotic needs with no fevers or chills. #1. Acute Flank Pain secondary to Acute obstructive stone at the distal left ureter with associated upstream moderate hydronephrosis with also incidentally noted enlarged prostate abutting the urinary bladder wall: Will admit to [facility], maintain on hydration, currently urinalysis with no overt evidence of UTI but awaiting completion of UA with addition of Rocephin if appropriate if needed, will allow cardiac diet until midnight with n.p.o. following for urological intervention, urology consulted and aware of patient, will have PRN oral and IV pain regimen, PRN anti-emetics, monitor I&Os. #2. Chronic Kidney Disease Stage II per GFR trending: Admission BUN/Cr 18/1.32,GFR 68, baseline renal function 1.0-1.3, repeat BMP in AM. #3. Anxiety and depression/mood disorder complicated by underlying intellectualdisability: Will continue patient home oxcarbazepine and Seroquel home regimen, encourage continued outpatient follow-up as previously arranged. #4. Hypertension: Continue home regimen including clonidine, doxazosin, losartan, PRN hydralazine. #5. Hyperlipidemia: Will continue patient home statin and fenofibrate regimen. #6. Obesity: Weight loss and lifestyle changes encouraged. #7. DVT prophylaxis: SCDs, hold chemoprophylaxis for planned urological intervention given size. #8. CODE STATUS: Full Code per discussion with the [facility] staff. Charges/Coding Visit Charges Inpatient E&M: 25514 Init Hosp L3 10/08/242045 <Electronically signed by Yamileth Aguirre MD> Cosigner Signature (if applicable): CC: Dr. Yamileth Aguirre MD; Dr. Ramiro Rosa MD~ Signed [facility] Work Phone: Hospital Discharge instructions Additional Instructions Constipation is a risk with narcotics therefore I do recommend optu-avq-cnlmiby stool softeners while taking narcotics.[facility] Work Phone: Reason for referral (narrative)No reason for referral information availableWMercy Health St[facility] Work Phone: Advance Directives Advance Directive Response Recorded Date/ Time Living Will No March 03 12:18pm Power of Value Analysis Coordinator No March 03, 2021 12:18pm Advance Directive Response Recorded Date/ Time Living Will No April 17, 022 11:27am Power of Value Analysis Coordinator No April 17, 2022 11:27am Advance Directive Response Recorded Date/ Time Living Will No April 17, 022 12:27pm Power of Value Analysis Coordinator No April 17, 2022 12:27pm Advance Directive Response Recorded Date/ Time Do you have a Healthcare Power of Value Analysis Coordinator? Yes October 08, 2024 5:01pm Advance Directive Response Recorded Date/ Time Do you have a Healthcare Power of Value Analysis Coordinator? Yes October 08, 2024 9:22pm Reason for Referral Specialty Diagnoses / Procedures Referred By Contac t Referred To Contact Physical Therapy Diagnoses Chronic midline low back pain without sciatica Procedures AL OFFICE/OUTPATIENT NEW HIGH MDM 60-74 MINUTES Ramiro Rosa MD [address] [place] [id number] Referral ID Status Reason Start Date Expiration Date Visits Requested Visits Authorized [id number] Pending Review Eval and Treat 3 10/15/2023 99 99 Scheduling Instructions [facility] [place] Specialty Diagnoses / Procedures Referred By Di t Referred To Contact Sleep Medicine Diagnoses MILAGROS (obstructive sleep apnea) Loud snoring Procedures Home sleep test Ramiro Rosa MD [address] [place] [address] Referral ID Status Reason Start Date Expiration Date V isits Requested Visits Authorized [id number] Authorized 10/24/2023 10/18/2024 1 1 Specialty Diagnoses / Procedures Referred By Contac t Referred To Contact Gastroenterology Diagnoses Screening for colon cancer Procedures AL OFFICE/OUTPATIENT NEW [facility] MDM 60 MINUTES Ramiro Rosa MD [address] [place] [address] FriendMichael Thierno, [facility] [address] [place] [address] Referral ID Status Reason Start Date Expiration Date Visits Requested Visits Authorized [id number] Pending Review Specialty Services Required 10/24/2023 10/23/2024 1 1 Chief Complaint and Reason for Visit Chief Complaint URINARY COMPLAINTS/F LANK PAIN Reason for Visit Urinary tract infect ion with hematuria Chief Complaint URINARY COMPLAINTS/F LANK PAIN LOW BACK PAIN. RX HERE Reason for Visit Urinary tract infect ion with hematuria Chief Complaint Admit Date NEPHROLITHIASIS, OBSTRUCTIVE WITH HYDRON EPHROSIS October 08, 2024 8:03pm Reason for Visit Admit Date Abdominal pain October 08, 2024 8:03p m History of hypertension October 08, 2024 8 :03pm Intractable abdominal pain October 08 8:03pm Kidney stone on left side October 08, 2024 8:03pm Chief Complaint Admit Date NEPHROLITHIASIS, OBSTRUCTIVE WITH HYDRON EPHROSIS October 08, 2024 8:03pm NEPHROLITHIASIS, OBSTRUCTIVE WITH HYDRON EPHROSIS October 09, 2024 4:08pm Summary Purpose Family History Relationship Condition Age at Onset Recorded Date/T drew mother Hyperlipidemia Unknown father Hyperlipidemia Unknown Additional Source Comments Goals (unrecognized section and [...] 02/03/2024 Specialty Diagnoses / Procedures Referred By Contac t Referred To Contact Sleep Medicine Diagnoses MILAGROS (obstructive sleep apnea) Loud snoring Procedures Home sleep test Ramiro Rosa MD [address] [place] [address], [place] [address] Referral ID Status Reason Start Date Expiration Date Visits Re quested Visits Authorized [id number] Closed 10/24/2023 10/18/2024 1 1 Reason Onset [...] Reason Onset Date Comments Med Refill 10/02/2024 Reason Comments Back Pain Mid lower back pain, lower abd pain x 1 week Care Teams (unrecognized sec tion and content) Team Status: Active Member Role Status Dates [...] June 26, 2024 End: June 26, 2024 Team Status: Active Member Role Status Dates Dr. Ramiro Rosa MD Primary Care Provider Active Start: October 08, 2024 Dr. Brad Goins MD Emergency Provider Active S tart: October 08, 2024 Dr. Yamileth Aguirre MD Admit Provider Active St art: October 08, 2024 Dr. Yamileth Aguirre MD Attending Provider Active Start: October 08, 2024 Dr. Yamileth Aguirre MD Other Provider Active St art: October 08, 2024 Applications System Analyst Relationship Specialty Start Date [place] [address] PCP - General 03/11/15 Team Status: Active Member Role Status Dates Dr. Ramiro Rosa MD Family Provider Active Dr. Ramiro Rosa MD Primary Care Provider Active Team Status: Inactive Member Role Status Dates Dr. Ramiro Rosa MD Primary Care Provider Active Dr. Eleni Borden MD Attending Provider Active Applications System Analyst Relationship Specialty Start Date [place] [address] PCP - General 03/11/15 Applications System Analyst Relationship Specialty Start Date End Date Ramiro Rosa MD [address] [place] [id number] PCP - General 03/11/15 Applications System Analyst Relationship Specialty Start Date End Date Ramiro Rosa MD [address] [place] [id number] PCP - General 03/11/15 Applications System Analyst Relationship Specialty Start Date End Date Ramiro Rosa MD [address] [place] [address] PCP - General 03/11/15 Applications System Analyst Relationship Specialty Start Date End Date Ramiro Rosa MD [address] [place] [id number] PCP - General 03/11/15 Applications System Analyst Relationship Specialty Start Date End Date Ramiro Rosa MD [address] [place] [address] PCP - General 03/11/15 Applications System Analyst Relationship Specialty Start Date End Date Ramiro Rosa MD [address] [place] [address] PCP - General 03/11/15 Applications System Analyst Relationship Specialty Start Date End Date Ramiro Rosa [address] [place] [id number] PCP - General Family Medicine 06/12/21 Applications System Analyst Relationship Specialty Start Date End Date Ramiro Rosa MD [address] [place] [address] PCP - General 03/11/15 Applications System Analyst Relationship Specialty Start Date End Date Ramiro Rosa MD [address] [place] [address] PCP - General 03/11/15 Applications System Analyst Relationship Specialty Start Date End Date Ramiro Rosa MD [address] [place] [address] PCP - General 03/11/15 Team Status: Inactive Member Role Status Dates Dr. Ramiro Rosa MD Primary Care Provider, Referri ng Provider Active Bernabe PISANO PA Attending Provider Active Team Status: Inactive Member Role Status Dates Dr. Ramiro Rosa MD Primary Care Provider Active Bernabe PISANO PA Attending Provider, Referring Pr ovider Active Applications System Analyst Relationship Specialty Start Date End Date Ramiro Rosa MD [address] [place] [address] PCP - General 03/11/15 Applications System Analyst Relationship Specialty Start Date End Date Ramiro Rosa MD [address] [place] [address] PCP - General 03/11/15 Team Status: Inactive Member Role Status Dates Dr. Ramiro Rosa MD Primary Care Provider, [facility] Provider Active Applications System Analyst Relationship Specialty Start Date End Date Ramiro Rosa MD [address] [facility] [place] [address] PCP - General 03/11/15 Applications System Analyst Relationship Specialty Start Date End Date Ramiro Rosa MD [address] [facility] [place] [address] PCP - General 03/11/15 Applications System Analyst Relationship Specialty Start Date End Date Ramiro Rosa MD [address] [place] [address] PCP - General 03/11/15 Applications System Analyst Relationship Specialty Start Date End Date Ramiro Rosa MD [address] [place] [address] PCP - General 03/11/15 Applications System Analyst Relationship Specialty Start Date End Date Ramiro Rosa MD [address] [place] [address] PCP - General 03/11/15 Applications System Analyst Relationship Specialty Start Date End Date Ramiro Rosa MD [address] [facility] [place] [address] PCP - General 03/11/15 Applications System Analyst Relationship Specialty Start Date End Date Ramiro Rosa MD [address] [facility] [place] [address] PCP - General 03/11/15 Applications System Analyst Relationship Specialty Start Date End Date Ramiro Rosa MD [address] [facility] [place] [address] PCP - General 03/11/15 Applications System Analyst Relationship Specialty Start Date End Date Ramiro Rosa MD [address] [place] [address] PCP - General 03/11/15 Applications System Analyst Relationship Specialty Start Date End Date Ramiro Rosa MD [address] [facility] [place] [address] PCP - General 03/11/15 Applications System Analyst Relationship Specialty Start Date End Date Ramiro Rosa MD [address] [facility] [place] [address] PCP - General 03/11/15 Applications System Analyst Relationship Specialty Start Date End Date Ramiro Rosa MD [address] [facility] [place] [address] PCP - General 03/11/15 Applications System Analyst Relationship Specialty Start Date End Date Ramiro Rosa MD [address] [place] [address] PCP - General 03/11/15 Applications System Analyst Relationship Specialty Start Date End Date Ramiro Rosa MD [address] [facility] [place] [address] PCP - General 03/11/15 Applications System Analyst Relationship Specialty Start Date End Date Ramiro Rosa MD [address] [facility] [place] [phone] PCP - General 03/11/15 Applications System Analyst Relationship Specialty Start Date End Date Ramiro Rosa [address] [facility] [place] [id number] PCP - General Family Medicine 06/12/21 Applications System Analyst Relationship Specialty Start Date End Date Ramiro Rosa [address] [facility] [place] [phone] PCP - General Family Medicine 06/12/21 Applications System Analyst Relationship Specialty Start Date End Date Ramiro Rosa [address] [facility] [place] [phone] PCP - General Family Medicine 06/12/21 Team Status: Inactive Member Role Status Dates Dr. Ramiro Rosa MD Primary Care Provider Active Start: October 08, 2024 End: October 09, 2024 Dr. Brad Goins MD Emergency Provider Active S tart: October 08, 2024 End: October 09, 2024 Dr. Yamileth Aguirre MD Admit Provider Active St art: October 08, 2024 End: October 09, 2024 Dr. Yamileth Aguirre MD Other Provider Active St art: October 08, 2024 End: October 09, 2024 Dr. Salvador Rush MD Other Provider Active Start: October 08, 2024 End: October 09, 2024 Dr. Austin Mares MD Attending Provider Active Start: October 08, 2024 End: October 09, 2024 Team Status: Active Member Role Status Dates Dr. Ramiro Rosa MD Primary Care Provider Active Start: October 09, 2024 Dr. Brad Goins MD Emergency Provider Active S tart: October 09, 2024 Dr. Yamileth Aguirre MD Admit Provider Active St art: October 09, 2024 Dr. Yamileth Aguirre MD Other Provider Active St art: October 09, 2024 Dr. Salvador Rush MD Other Provider Active Start: October 09, 2024 Dr. Austin Mares MD Attending Provider Active Start: October 09, 2024 Dr. Austin Mares MD Other Provider Active Start: October 09, 2024 Source Comments (unrecognize d section and content) In the event this informatio n is protected by the Federal Confidentiality of Alcohol and Drug Abuse Patient Records regulations: The Federal rules restrict any use of the information to criminally investigate or prosecute any alcohol or drug abuse patient.[facility] the event this information is protected by the Federal Confidentiality of Alcohol and Drug Abuse Patient Records regulations: The Federal rules restrict any use of the information to criminally investigate or prosecute any alcohol or drug abuse patient.[facility] Hospital[facility] the event this information is protected by the Federal Confidentiality of Alcohol and Drug Abuse Patient Records regulations: The Federal rules restrict any use of the information to criminally investigate or prosecute any alcohol or drug abuse patient.[facility] Hospital[facility] the event this information is protected by the Federal Confidentiality of Alcohol and Drug Abuse Patient Records regulations: The Federal rules restrict any use of the information to criminally investigate or prosecute any alcohol or drug abuse patient.[facility] (unrecognized sect ion and content) No Status Records FoundNo Status Records FoundNo Status Records Found INFORMATION SOURCE (unrecogn ized section and content) DATE CREATED AUTHOR 10/10/2024 [facility] DATE CREATED AUTHOR AUTHOR'S ORGANIZ ATION 10/10/2024 [facility] DATE CREATED AUTHOR AUTHOR'S ORGANIZ ATION 10/10/2024 [facility] FOR RECORDS PERTAINING TO PATIENTS WHO [...] BE BASED ON THE PRIMARY CLINICAL RECORDS. [employer] [facility]. provides no warranty or guarantee of the accuracy or completeness of information in this document.
== END 2024-10-09 16:25 | disposition home or self-care (01) ==
LOC: ED 19:48 → MS3 10-09 06:19
PROVIDERS: Urology; Admitting Provider Family Medicine; Emergency Provider Emergency Medicine; PCP Family Medicine; Visit Provider Family Medicine
PROC: (CPT 52332; principal; 2024-10-09 07:50)
DX: N13.2 Hydronephrosis with renal and ureteral calculous obstruction (principal); E66.9 Obesity, unspecified; I12.9 Hypertensive chronic kidney disease with stage 1 through stage 4 chronic kidney disease, or unspecified chronic kidney disease; E78.5 Hyperlipidemia, unspecified; N18.2 Chronic kidney disease, stage 2 (mild); F79 Unspecified intellectual disabilities; F41.9 Anxiety disorder, unspecified; F39 Unspecified mood [affective] disorder; N40.1 Benign prostatic hyperplasia with lower urinary tract symptoms; N13.8 Other obstructive and reflux uropathy; Z68.30 Body mass index [BMI] 30.0-30.9, adult; F32.A Depression, unspecified
CPT/HCPCS: 52332; 00910; C1769; C2617; 36415; 74177; 76000; 80053; 81001; 85025; 93005; 94668; 96361; 96374; 96375; 96376; 99221; 99284; Q9967; A4216; G0378; J2405

== ENCOUNTER 2024-10-23 05:59 | Day surgery (SDC) | payer MEDICAID, SELFPAY ==
--- NOTE | 2024-10-15 11:13 | PAT.ANESEVAL ---
Pre-Assessment Diagnosis/Proposed Procedure Planned Operative Procedure(s): LEFT URETEROSCOPY LASER STENT Anesthesia History Anesthesia History - strapping machine tender: Anesthesia History - strapping machine tender Hx Hospitalization Yes: 10/09/24 KIDNEY STONE 10/15/24 10:22 Any Problems With Anesthesia No 10/15/24 10:22 Cholinesterase deficiency No 10/15/24 10:22 You/Your Family Experience No 10/15/24 10:22 fever (hyperthermia) with Relationship Recent Exposure to Contagious No 12/19/23 09:20 Disease Does patient have nerve No 10/15/24 10:22 stimulator Patient instructed to have device shut off --Does patient have Pacemaker or ICD? When Was Last Pacemaker Check QUESTION #4 FULL TEXT: You/Your Family Experience fever (hyperthermia) with Anesthesia Last Oral Intake Last Oral intake: Last Oral Intake NPO since Meds taken in AM with sips of water? Meds patient instructed to take am of surgery PONV PONV - strapping machine tender: PONV - strapping machine tender Female No 10/15/24 10:22 HX of Motion Sickness No 10/15/24 10:22 HX of N/V After Surgery No 10/15/24 10:22 Non-Smoker No 10/15/24 10:22 Duration of Surgery greater No 10/15/24 10:22 than 60 minutes Number of Risk Factors PONV Score Height & Weight Height & Weight: Anesthesia: Height & Weight Height 5 ft 4.96 in 10/09/24 10:19 Respiratory Assessment Respiratory Assessment - strapping machine tender: Respiratory Tract Infection Hx - strapping machine tender Hx Respiratory Tract Infection No: COUGH 10/15/24 10:22 STOP Sleep Apnea STOP Sleep Apnea - strapping machine tender: STOP Sleep Apnea - strapping machine tender Hx Hypertension Yes: CONTROLLED WITH MED 10/15/24 10:22 Hx Sleep Apnea No 10/15/24 10:22 CPAP BIPAP Do you snore loudly (louder Yes 10/15/24 10:22 than talking or can be heard Do you often feel tired/ Yes 10/15/24 10:22 fatigued/ sleepy during daytime? Has anyone observed you stop No 10/15/24 10:22 breathing during sleep? STOP Results Positive 10/15/24 10:22 QUESTION #5 FULL TEXT : Do you snore loudly (louder than talking or can be heard through closed doors)? Tobacco Use History Tobacco Use History - strapping machine tender: Tobacco Use History - strapping machine tender Tobacco Use Non-smoker 03/02/21 15:59 Smoking Status Never smoker 10/15/24 10:22 Hx Tobacco Use No 10/15/24 10:22 Years Smoking Packs Smoked per Day Smoking Cessation Date was within the last 15 years Hx Smoking Cessation Date Hx Smoking Cessation Counseling Hematologic Medial History Hematologic Hx - strapping machine tender: Hematologic Medical Hx - opener tender Hx of Blood Transfusion No 10/15/24 10:22 Hx of Transfusion in last 3 No 10/15/24 10:22 Months Date of Last Transfusion (if within last 3 months) Ever experience any problems No 10/15/24 10:22 with transfusion(s)? Specify any problems Hx of Preganancy in last 3 N/A 10/15/24 10:22 Months Nurse Filling Out Transfusion DSCHRIBER 10/15/24 10:22 & Questions: Date: 10/15/24 10/15/24 10:22 Time: 10:24 10/15/24 10:22 Patient unable to answer at this time (ie. confused, unrespo /Reproduction History /Reproductive History - strapping machine tender: /Reproductive Hx- strapping machine tender Hx Now No 10/15/24 10:22 Gestational Age (in weeks): EDC: Hx Hx Para Hx Section SAB No 10/15/24 10:22 [facility] Medical History (Updated 10/15/24 @ 10:30 by Debora Wong) Anxiety Dietary restriction Lives in halfway Arthritis Back pain Non-smoker Shortness of breath on exertion Intellectual disability Recurrent major depression in full remission Hyperlipidemia Essential hypertension Urinary tract infection with hematuria Home Medications ?Medication ?Instructions ?Recorded ?Last Taken ?Type fenofibrate nanocrystallized 145 145 mg PO DAILY 07/08/18 12/18/23 History mg tablet folic acid 400 mcg tablet 0.4 mg PO DAILY@0800 07/08/18 12/18/23 History garlic 200 mg tablet 350 mg PO DAILY 07/08/18 12/18/23 History loratadine 10 mg capsule (Claritin 10 mg PO DAILY 07/08/18 12/18/23 History Liqui-Gel) omega-3 fatty acids-fish oil 340 3 ea PO DAILY 07/08/18 12/15/23 History mg-1,000 mg capsule (Fish Oil) ammonium lactate 12 % topical cream 1 applic topical DAILY 05/29/23 12/18/23 History atorvastatin 40 mg tablet 40 mg PO DAILY 05/29/23 12/18/23 History clonidine HCl 0.2 mg tablet 0.2 mg PO BID 05/29/23 12/19/23 06:30 History doxazosin 2 mg tablet 2 mg PO QHS 05/29/23 12/18/23 History fluticasone propionate 50 2 spray intranasal DAILY 05/29/23 12/18/23 History mcg/actuation nasal spray,suspension (Allergy Relief (fluticasone)) losartan 100 mg tablet 100 mg PO DAILY 05/29/23 12/19/23 06:30 History multivitamin-ferrous 1 tab PO DAILY 05/29/23 12/18/23 History fumarate-folic acid 18 mg-400 mcg tablet (Certavite-Antioxidant) nabumetone 500 mg tablet 500 mg PO BID PRN pain 05/29/23 Unknown History quetiapine 150 mg tablet,extended 100 mg PO 0700 05/29/23 12/18/23 History release 24 hr neomycin-bacitracn Zn-polymyx 3.5 1 applic topical TID PRN dry skin 11/05/23 Unknown History mg-400 unit-5,000 unit/gram top oint (Neosporin ([id number])) oxcarbazepine 600 mg tablet 600 mg PO BID 11/05/23 12/19/23 06:30 History clonazepam 0.5 mg tablet 0.25 mg PO TID 10/15/24 Unknown History quetiapine 200 mg tablet 200 mg PO 1600 10/15/24 Unknown History Allergy/AdvReac Type Severity Reaction Status Date / Time risperidone (From Risperdal) Allergy ANXIETY Verified 10/15/24 10:16 Family History Mother Hyperlipidemia Father Hyperlipidemia Surgical History (Updated 10/15/24 @ 10:30 by Debora Wong) Hx of colonoscopy Hx of cystoscopy Hx of cystoscopy History of testicular surgery History of ankle surgery Social History household members: other details: Lives with others in residential home number of children: 0 Smoking Status: Never smoker alcohol intake: never substance use type: does not use Audit: Pertinent Findings Pertinent Findings EKG Perinent findings: 10/09/2024. Normal sinus rhythm. Incomplete right bundle branch block. Rate 82 bpm. Recommendation Anesthesia Recommendation Anesthesia recommendation: OPTIMIZED for anesthesia
[2024-10-23] VITALS (10 sets, daily range): BP systolic 100–136; BP diastolic 63–92; PULSE 65–97; RESP 16–18; TEMP 35.7–36.2; O2SAT 93–97; BMI 31.4
--- OUTSIDE RECORDS SUMMARY | 2024-10-23 06:09 | XMS RPT_ITS | CCD ---
Author Organization [facility] CliniSyga Care Team Providers Care Furnace Puncher Name Role Phone Dr. Ramiro Rosa Primary [...] Dr. Ramiro Rosa MD Primary Care Provider Prince HERNANDEZ, Dr. Graff Attending Provider Dr. Dajuan Dickson MD Referring Provider Ramiro Ware Primary Care Provider Dr. Ramiro Rosa MD Primary Care Provider Dr. Dajuan Morrison MD Attending Provider Dr. Dajuan Dickson MD Referring Provider Dr. Brad Amos MD Emergency Provider Carla HERNANDEZ, Dr. Yamileth Best Admit Provider Carla HERNANDEZ, Dr. Yamileth Best Attending Provider Carla HERNANDEZ, Dr. Yamileth Best Other Provider Adri HERNANDEZ, Dr. Salvador Duran Other Provider Vishnu HERNANDEZ, Dr. Austin Salmon Attending Provider Vishnu HERNANDEZ, Dr. Austin Salmon Other Provider SEAN VERDUZCO Attending Unavailable SELF Referring Unavailable MOE, RAMIRO KALPANA Primary Care Unavailabl e MOE, RAMIRO KALPANA Primary Care Unavailabl e ZACH CARDENAS Attending Unavailable MOE, RAMIRO Attending Unavailable MOE, RAMIRO Primary Care Unavailable MOE, RAMIRO Attending Unavailable MOE, RAMIRO Primary Care Unavailable MOE, RAMIRO Attending Unavailable MOE, RAMIRO Primary Care Unavailable MOE, RAMIRO Attending Unavailable MOE, RAMIRO Referring Unavailable MOE, RAMIRO Primary Care Unavailable Austin Mares Attending Unavailable Moe, Ramiro Primary Care Unavailable Yamileth Aguirre L Admitting Unavailable AdriSalvador Consulting Unavailable White, Yamileth L Consulting Unavailable Austin Mares Consulting Unavailable Moe, Ramiro Primary Care Unavailable AdriSalvador Attending Unavailable Moe, Ramiro Primary Care Unavailable Austin Mares Attending Unavailable Carla, Yamileth L Admitting Unavailable AdriSalvador Consulting Unavailable WhiteYamileth L Consulting Unavailable Fanta Quiroga Attending Unavailable Moe, Ramiro Primary Care Unavailable Friend, Michael Consulting Unavailable Friend, Michael Attending Unavailable Moe, Ramiro Primary Care Unavailable Moe, Ramiro Referring Unavailable Friend, Michael Attending Unavailable Moe, Ramiro Primary Care Unavailable Moe, Ramiro Referring Unavailable Black Dajuan HINDS Referring Unavailable Moe, Ramiro Primary Care Unavailable Dajuan Metz Attending Unavailable Black Dajuan HINDS Attending Unavailable Moe, Ramiro Primary Care Unavailable Delbert Faye Attending Unavailable Moe, Ramiro Primary Care Unavailable White, Yamileth L Referring Unavailable White, Yamileth L Attending Unavailable Allergies Allergy Classification Reported Allergen(s) Allergy Type Date of Onset Reaction(s) Facility risperiDONE (1 source) risperiDONE Drug Allergy 5 [facility] (13 sources) risperiDONE; Translations: [RISPERIDONE] Drug Allergy 5 Mental Status Change [facility] (20 sources) risperiDONE Drug Allergy 5 Anxiety [facility] (1 source) risperiDONE Drug Allergy 5 [facility] Repository Medications Current Medications Medication [...] tablet by marcell th once daily. bacitracin 0.5 unt/mg / neomycin 0.0035 mg/mg / polymyxin b 10 unt/mg topical ointment (20 sources) Aminoglycoside Antibacterial, Polymyxin-class Antibacterial Start: 10-15-2024 cdlkvcbg-onkiuapivf-z olymyxin (Neosporin) 5-400-5000 ointment Apply topically 3 times daily. 28 g 2 10/15/2024 Active Start: 11-05-2023 Neomycin-Bacit racnzn-Polymyxnb (Neosporin (Wwz-Ans-Lipnj)) 3.5mg-400 unit- 5,000 unit/gram ointment Active 1 NMA TOPICAL THREE TIMES A DAY as needed for dry skin November 05, 2023 12:00am To inside of nose for dry patches Start: 02-19-2022 End: 10-15-2024 aimkdrph-omndzfisih-tjyhwhri n (Neosporin) ointment APPLY TOPICALLY TO INSIDE OF NOSE 3 TIMES DAILY NEEDED FOR DRY PATCHES 02/19/2022 10/15/2024 Discontinued (Reorder) Comment on above: APPLY TOPICALLY TO I [...] on above: Take 1 capsule by mo [facility] four times daily for 5 days. clonazePAM 0.5 mg oral tablet (12 sources) Benzodiazepine Start: take 0.5 tablet by mouth three times daily clonazePAM (KlonoPIN) 0.5 MG tablet Take 0.5 tablets (0.25 mg) by mouth 3 times daily. 10/15/2024 Active Start: 10-05-2024 take 1 tablet by marcell three times daily clonazePAM (KLONOPIN) 0.5 mg tablet Take 0.5 mg by mouth three times a day. 10/05/2024 Active Start: 04-08-2024 End: 10-15-2024 take 0.25 mg by mouth twice daily clonazePAM (KlonoPIN) 0.5 MG tablet Take 0.25 mg by mouth 2 times daily. 04/08/2024 10/15/2024 Discontinued cloNIDine hydrochloride 0.2 mg oral tablet (20 sources) Central alpha-2 Adrenergic Agonist Start: 06-13-2017 take 1 tablet by mouth twice daily cloNIDine (Catapres) 0.2 MG tablet TAKE 1 TABLET BY MOUTH TWICE DAILY (7AM,8PM) 02/19/2022 Active Start: 06-13-2017 End: 05-29-2023 take 1 tablet by mouth twice daily Clonidine Hcl 0.1 MG tablet Discontinued 0.1 mg PO TWICE A DAY July 08, 2018 1:00am May 29, 2023 11:03am Comment on above: Take 1 tablet by marcell two times a day. docosahexaenoic acid 120 mg / eicosapentaenoic acid 180 mg oral capsule (20 sources) Start: End: take 3 capsules by mouth once daily [...] 1:00am Start: 02-19-2022 End: 06-23-2024 ammonium lactate (Amlactin) [...] Start: 07-08-2018 take 1 capsule by mo [facility] once daily Loratadine (Claritin Liqui-Gel) 10 MG capsule Active 10 mg PO DAILY July 08, 2018 1:00am Comment on above: [facility] (4PM) losartan potassium 100 [...] tablet by mouth daily. 0 02/19/2022 Active Mxlmqrncprjq-Nuev-Zwoxb Acid (Certavite-Antioxidant) 18-400 mg-mcg tablet (5 sources) Start: 05-29-2023 Multivitamin-I michell-Folic Acid (Certavite-Antioxidant) 18-400 mg-mcg tablet Active 1 {tbl} PO DAILY May 29, 2023 1:00am Start: 05-29-2023 Multivitamin-I michell-Folic Acid (Certavite-Antioxidant) 18-400 mg-mcg tablet Active 1 {tbl} PO DAILY May 29, 2023 12:00am Start: 05-29-2023 take 1 tablet by marcell th once daily Dtolvhdjdvme-Tqzl-Elxut Acid (Certavite-Antioxidant) 18-400 mg-mcg tablet Active 1 TABLET PO DAILY May 29, 2023 1:00am Start: 05-29-2023 take 1 tablet by marcell th once daily Ksahlcqhoula-Vmmk-Kzxri Acid (Certavite-Antioxidant) 18-400 mg-mcg tablet Active 1 TABLET PO DAILY May 29, 2023 12:00am multivitamin/iron/folic acid (CERTAVITE-ANTIOXIDANT ORAL) (4 sources) multivitamin/iro n/folic acid (CERTAVITE-ANTIOXIDANT ORAL) Take by mouth. Active multivitamin/iro n/folic acid (CERTAVITE-ANTIOXIDANT ORAL) Take by mouth. 0 Active Comment on above: Take by mouth. omega 2-vuv-jos-fish oil 300 mg-100 mg- 150 mg-1,000 mg cap (4 sources) Start: 02-19-2022 take 3 capsules by mouth once daily omega 6-dhx-dne-fish oil 300 mg-100 mg- 150 mg-1,000 mg cap TAKE 3 CAPSULES (3000MG) BY MOUTH ONCE EVERY DAY 02/19/2022 Active Start: 02-19-2022 take 3 capsules by m outh once daily omega 9-ubl-nun-fish oil 300 mg-100 mg- 150 mg-1,000 mg cap TAKE 3 CAPSULES (3000MG) BY MOUTH ONCE EVERY DAY 0 02/19/2022 Active Comment on above: TAKE 3 CAPSULES (300 0MG) BY MOUTH ONCE EVERY DAY [place]-3 Fatty Acids-Fish Oil (Fish Oil 1,000 Mg Capsule) 1 EACH capsule (7 sources) Start: 07-08-2018 [place]-3 Fatty Acids-Fish Oil (Fish Oil 1,000 Mg Capsule) 1 EACH capsule Active 3 NMA PO DAILY July 08, 2018 1:00am Start: 07-08-2018 [place]-3 Fatty Acids-Fish Oil (Fish Oil 1,000 Mg Capsule) 1 EACH capsule Active 3 NMA PO DAILY July 08, 2018 12:00am Start: 07-08-2018 [place]-3 Fatty Acids-Fish Oil (Fish Oil 1,000 Mg Capsule) 1 EACH capsule Active 3 EACH PO DAILY July 08, 2018 12:00am Start: 07-08-2018 [place]-3 Fatty Acids-Fish Oil (Fish Oil 1,000 Mg Capsule) 1 EACH capsule Active 3 EACH PO DAILY July 08, 2018 1:00am [place]-3 Fatty Acids-Fish Oil (Fish Oil) 1 EACH capsule (1 source) Start: 07-08-2018 [place]-3 Fatty Acids-Fish Oil (Fish Oil) 1 EACH capsule Active 3 NMA PO DAILY July 08, 2018 1:00am OXcarbazepine 600 mg oral tablet (20 sources) Anti-epileptic Agent Start: 02-19-2022 take 1 tablet by mouth twice daily OXcarbazepine (Trileptal) 600 MG tablet TAKE 1 TABLET BY MOUTH TWICE DAILY (7AM,8PM) 02/19/2022 Active Comment on above: TAKE 1 TABLET BY MARCELL TWICE DAILY (7AM,8PM) oxyCODONE hydrochloride 5 mg oral tablet (1 source) Opioid Agonist Start: 10-09-2024 take 1 tablet by mouth every four hours as needed for pain Oxycodone 5 mg Tablet Active 5 mg PO EVERY 4 HOURS NEEDED as needed for Pain Score 4-10 10 3 October 09, 2024 polyethylene glycol 3350 90313 mg powder for oral solution (3 sources) [...] 3:32pm Start: 05-29-2023 take 1 tablet by marcell th twice daily Amoxicillin-Pot Clavulanate Active 1 TABLET [...] MONTH (7AM,8PM) dexamethasone 6 mg oral tablet (8 sources) Corticosteroid Start: 02-10-20 End: 05-29-19 take 1 tablet by mouth once daily Dexamethasone 6 mg tablet Discontinued 6 mg PO DAILY February 09, 2022 12:00am May 29, 2023 11:07am Hujmdcyu-Zqa-Oj-Lycop en-Lutein (Certavite Sr-Antioxidant Tab) 1 EACH tablet (8 sources) Start: 07-09-19 End: 05-29-19 Rjrsgibq-Cqe-Hi-Lyco pen-Lutein (Certavite Sr-Antioxidant Tab) 1 EACH tablet Discontinued 1 NMA PO DAILY July 08, 2018 1:00am May 29, 2023 11:07am Start: 07-08-2018 End: 05-29-2023 Ughtlsij-Ppi-Dd-Lycopen-Lute in (Certavite Sr-Antioxidant Tab) 1 EACH tablet Discontinued 1 NMA PO DAILY July 08, 2018 12:00am May 29, 2023 10:07am Start: 07-08-2018 End: 05-29-2023 Bmjcaven-Eom-Rf-Lycopen-Lute in (Certavite Sr-Antioxidant Tab) 1 EACH tablet Discontinued 1 EACH PO DAILY July 08, 2018 1:00am May 29, 2023 11:07am Start: 07-08-2018 End: 05-29-2023 Ttlgiznx-Mjn-Lv-Lycopen-Lute in (Certavite Sr-Antioxidant Tab) 1 EACH tablet Discontinued 1 EACH PO DAILY July 08, 2018 12:00am May 29, 2023 10:07am Start: 07-08-2018 Mtsgrpyk-Gkr-M u-Jhqadqz-Meoumm (Certavite Sr-Antioxidant Tab) 1 EACH tablet Active 1 EACH PO DAILY July 08, 2018 12:00am Start: 07-08-2018 Apebzoiy-Iru-W c-Nkcvcba-Eigkbh (Certavite Sr-Antioxidant Tab) 1 EACH tablet Active 1 EACH PO DAILY July 08, 2018 1:00am multivitamin with minerals (Cerovite) 18-400 mg-mcg tablet tablet (1 source) End: 04-18-2023 multivitamin with minerals (Cerovite) 18-400 mg-mcg tablet tablet Take by mouth. 0 04/18/2023 Discontinued (Therapy completed) nabumetone 500 mg oral tablet (20 sources) Nonsteroidal Anti-inflammatory Drug Start: 09-24-2024 End: 10-15-2024 take 1 tablet by mouth twice daily as needed for pain nabumetone (Relafen) 500 MG tablet Take 1 tablet (500 mg) by mouth 2 times daily as needed for mild pain (1-3) or moderate pain (4-6). 60 tablet 09/24/2024 10/15/2024 Discontinued (Therapy completed) Start: 10-26-2022 End: 07-23-2024 take 1 tablet by mouth twice daily [...] above: Take 500 mg by mouth . ondansetron 4 mg disintegrating oral tablet (8 sources) Serotonin-3 Receptor Antagonist Start: End: take 1 tablet by mouth every eight hours as needed for nausea Ondansetron 4 MG tablet Discontinued 4 mg PO EVERY 8 HOURS NEEDED as needed for Nausea July 08, 2018 1:00am May 29, 2023 11:07am Problems Active Problems Problem Classification Problem Date Documented Date Episodic/Chronic Abdominal pain (10 sources) Abdominal pain; Translations: [Unspecified abdominal pain] Onset: 10-08-2024 10-08-2024 Episodic Calculus of [...] Onset: 10-09-2017 02-19-2022 Chronic Headache; including migraine (7 sources) Headache; Translations: [...] of the circulatory system] 10-08-2024 Episodic Other diseases of kidney and ureters (1 source) Hydronephrosis with renal and ureteral calculous obstruction; Translations: [Hydronephrosis with renal and ureteral calculous obstruction] Onset: 10-19-2024 Episodic Other injuries and conditions due to [...] pollen] Onset: 02-19-2022 Chronic Residual codes; unclassified (2 sources) Obstructive sleep apnea (adult) (pediatric); Translations: [Obstructive sleep apnea (adult) (pediatric)] Onset: 10-24-2023 Chronic Unclassified (1 source) Midline low back pain, unspecified chronicity, unspecified whether sciatica present; Translations: [Midline low back pain, unspecified chronicity, unspecified whether sciatica present] Onset: 10-08-2024 Viral infection (10 sources) Disease caused by 2019-nCoV; Translations: [COVID-19] Episodic Past or Other Problems Problem Classification Problem Date Documented Date Episodic/Chronic Genitourinary symptoms and ill-defined conditions (20 sources) Benign essential microscopic hematuria; Translations: [Benign essential microscopic hematuria] Onset: 08-31-2020 02-19-2022 Episodic Mood disorders (1 source) Mood disorder due [...] for diabetes mellitus] Onset: 10-24-2023 04-18-2023 Episodic Residual codes; unclassified (20 sources) Obstructive sleep apnea syndrome; Translations: [Obstructive sleep apnea (adult) (pediatric)] Onset: 10-24-2023 Resolved: 10-15-2024 10-24-2023 Chronic Spondylosis; intervertebral disc disorders; other back problems (20 sources) Acute low back pain; Translations: [Acute midline low back pain without sciatica] Onset: 08-27-2022 Episodic Urinary tract infections (20 sources) Cystitis; Translations: [Cystitis, unspecified without hematuria] Onset: 08-31-2020 02-19-2022 Episodic Results Test Name Value Interpretation Reference Range Facility MR/PATLionel 10-15-2024 [place]CODY [facility] [address] [place] [id number] PAT - Anesthesia 10/15/24 1113 MR#: [id number] Acct: [id number] Name: CHAN BURCIAGA Rep #: [id number] : 1980 43 From: Sandro Julian MD PCP: Dr. Ramiro Rosa MD Status:PRE [facility] Y Race: C Location: [facility] Pre-Assessment Diagnosis/Proposed Procedure Planned Operative Procedure(s): LEFT URETEROSCOPY LASER STENT Anesthesia History Anesthesia History - 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: Anesthesia History - 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 Hx Hospitalization Yes: 10/09/24 KIDNEY STONE 10/15/24 10:22 Any Problems With Anesthesia No 10/15/24 10:22 Cholinesterase deficiency No 10/15/24 10:22 You/Your Family Experience No 10/15/24 10:22 fever (hyperthermia) with Relationship Recent Exposure to Contagious No 12/19/23 09:20 Disease Does patient have nerve No 10/15/24 10:22 stimulator Patient instructed to have device shut off --Does patient have Pacemaker or ICD? When Was Last Pacemaker Check QUESTION #4 FULL TEXT: You/Your Family Experience fever (hyperthermia) with Anesthesia Last Oral Intake Last Oral intake: Last Oral Intake NPO since Meds taken in AM with sips of water? Meds patient instructed to take am of surgery PONV PONV - 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: PONV - 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 Female No 10/15/24 10:22 HX of Motion Sickness No 10/15/24 10:22 HX of N/V After Surgery No 10/15/24 10:22 Non-Smoker No 10/15/24 10:22 Duration of Surgery greater No 10/15/24 10:22 than 60 minutes Number of Risk Factors PONV Score Height Weight Height Weight: Anesthesia: Height Weight Height 5 ft 4.96 in 10/09/24 10:19 Respiratory Assessment Respiratory Assessment - 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: Respiratory Tract Infection Hx - 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 Hx Respiratory Tract Infection No: COUGH 10/15/24 10:22 STOP Sleep Apnea STOP Sleep Apnea - 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: STOP Sleep Apnea - 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 Hx Hypertension Yes: CONTROLLED WITH MED 10/15/24 10:22 Hx Sleep Apnea No 10/15/24 10:22 CPAP BIPAP Do you snore loudly (louder Yes 10/15/24 10:22 than talking or can be heard Do you often feel tired/ Yes 10/15/24 10:22 fatigued/ sleepy during daytime? Has anyone observed you stop No 10/15/24 10:22 breathing during sleep? STOP Results Positive 10/15/24 10:22 QUESTION #5 FULL TEXT : Do you snore loudly (louder than talking or can be heard through closed doors)? Tobacco Use History Tobacco 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: Tobacco 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 Tobacco Use Non-smoker 03/02/21 15:59 Smoking Status Never smoker 10/15/24 10:22 Hx Tobacco Use No 10/15/24 10:22 Years Smoking Packs Smoked per Day Smoking Cessation Date was within the last 15 years Hx Smoking Cessation Date Hx Smoking Cessation Counseling Hematologic Medial History Hematologic Hx - 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: 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 Hx of Blood Transfusion No 10/15/24 10:22 Hx of Transfusion in last 3 No 10/15/24 10:22 Months Date of Last Transfusion (if within last 3 months) Ever experience any problems No 10/15/24 10:22 with transfusion(s)? Specify any problems Hx of Preganancy in last 3 N/A 10/15/24 10:22 Months Nurse Filling Out Transfusion DSCHRIBER 10/15/24 10:22 Questions: Date: 10/15/24 10/15/24 10:22 Time: 10:24 10/15/24 10:22 Patient unable to answer at this time (ie. confused, unrespo /Reproduction History /Reproductive History - 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: /Reproductive Hx- 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 Hx Now No 10/15/24 10:22 Gestational Age (in weeks): EDC: Hx Hx Para Hx Section SAB No 10/15/24 10:22 [facility] Medical History (Updated 10/15/24 @ 10:30 by Debora Wong) Anxiety Dietary restriction Lives in [place] Arthritis Back pain Non-smoker Shortness of breath [...] topical cream 1 applic topical DAILY 05/29/23 08 (more content not included)... Normal [facility] Office Visiton 10-15-2024 Follow-up visit [id number] Cb Burciaga 1980 M Date Provider Department Center 10/15/2024 [id number] [facility] Family History Family Status - Relation Status Age at Mother Father Alive Level of Service:02061 [place] OFFICE/OUTPATIENT ESTABLISHED MOD MDM 30 MIN Reason for Visit and Comments: Follow-up [340018] - 6m follow up, medication check, recent ED visit for kidney stone Progress Noteon 10-15-2024 Progress Note Remission, continue Trileptal 600 mg and Seroquel 100 mg daily and clonazepam 0.25 mg 3 times a day Progress Note Controlled, continue atorvastatin 40 mg daily and fenofibrate 145 mg daily Progress Note Currently has a sten t in place is waiting for surgery to break up the stone. Follow-up with urology as scheduled. Progress Note Controlled, continue clonidine 0.2 mg, losartan 100 mg, Progress Note 10/15/2024 Chan Burciaga (: 1980) is a 43 y.o. male , Established patient, here for evaluation of the following chief complaint(s): Follow-up (6m follow up, medication check, recent ED visit for kidney stone) ASSESSMENT/PLAN: 1. Essential hypertension Assessment & Plan: Controlled, continue clonidine 0.2 mg, losartan 100 mg, 2. Calculus of kidney Assessment & Plan: Currently has a stent in place is waiting for surgery to break up the stone. Follow-up with urology as scheduled. 3. Hyperlipidemia LDL goal <100 Assessment & Plan: Controlled, continue atorvastatin 40 mg daily and fenofibrate 145 mg daily 4. Recurrent major depressive disorder, in full remission (HCC) Assessment & Plan: Remission, continue Trileptal 600 mg and Seroquel 100 mg daily and clonazepam 0.25 mg 3 times a day Follow up in about 6 months (around 04/16/2025). SUBJECTIVE/OBJECTIVE: MIGUEL ÁNGEL Monaco comes in today for a 6-month follow-up on his hypertension, hyperlipidemia and depression and these all seem to be well-controlled at this time. He recently had another kidney stone he had a stent placed and he is now waiting to have surgery to break up the stone. Review of Systems Constitutional: Negative for activity [...] mood. The patient is not nervous/anxious. Vitals: 10/15/24 1144 BP: 120/81 Pulse: 95 SpO2: 95% Weight: 190 lb (86.2 kg) Height: 5' 5 (1.651 m) Physical Exam Vitals and nursing note [...] to authenticate this note. Ramiro Rosa MD 10/15/2024 12:39 PM Normal [facility] 12 Lead EKGon 10-09-2024 12 Lead EKG [facility] Cardiovascular Services [address] [place] [address] 12 Lead EKG 10/09/24 0958 MR#: [id number] Acct: [id number] Name: CHAN BURCIAGA Rep #: [id number] : 1980 43 From: Delbert Faye MD Attending Dr: Dr. Austin Mares MD Status : DIS REAGAN Ordering Dr: Sandro Julian MD Date: 10/09/24 Location: [facility] Sex: M C Admitted: 10/08/24 Test Reason : SOB Blood Pressure : */* mmHG Vent. Rate : 82 BPM Atrial Rate : 82 BPM P-R Int : 158 ms QRS Dur : 100 ms QT Int : 374 ms P-R-T Axes : 36 -24 26 degrees QTcB Int : 436 ms Normal sinus rhythm Incomplete right bundle branch block Borderline ECG When compared with ECG of 28-Sep-2010 09:58, Vent. rate has decreased by [address] no longer depressed in Lateral leads T wave inversion no longer evident in Lateral leads Confirmed by Delbert Faye ([id number]), editor school photograph KATELYNN RODRIGUEZ ([id number]) on 10/12/2024 9:11:11 AM Referred By: CARLA Confirmed By: Delbert Faye 10/12/24 0911 Date Delbert Faye MD CC: Dr. Sandro Julian MD; Dr. Ramiro Rosa MD; Dr. Austin Mares MD Signed Normal [facility] Absolute lymphocyte countOrd ered By: Carla on 10-09-2024 Lymphocytes Auto (Unsp spec) [#/Vol] 2.90 10*3/uL 0.83-4.51 [facility] Absolute neutrophil countOrd ered By: Carla on 10-09-2024 Neutrophils (Bld) [#/Vol] 4.9 10*3/uL 2.0-7.7 [facility] Anion gap in Serum or Plasma Ordered By: Carla on 10-09-2024 Anion gap [Moles/Vol] 12 mmol/L 5-15 [facility] Automated lymphocyte count a s percentage of total leukocytesOrdered By: Yamileth Carla on 10-09-2024 Lymphocytes/100 WBC Auto (Unsp spec) 31.8 % 19-41 [facility] BUN/creatinine ratioOrdered By: White on 10-09-2024 Urea nitrogen/Creatinine [Mass ratio] 12.4 mg/mg 10-20 [facility] Basophil percentageOrdered B y: White on 10-09-2024 Basophils/100 WBC (Bld) 0.7 % 0-1 [facility] Bilirubin, totalOrdered By: White on 10-09-2024 Bilirubin [Mass/Vol] 0.38 mg/dL 0.00-1.30 [facility] CBC W/Diff, Automatedon Absolute Lymph 2.90 X10 3/uL Normal 0.83-4.51 [facility] Comment on above: Performed By: #### L 500.4050, L100.0100 ####[facility] [address] [place], [address] Absolute Neut 4.9 X10 3/uL Normal 2.0-7.7 [facility] Comment on above: Performed By: #### L 500.4050, L100.0100 ####[facility] [address] [place], [address] Basophils/100 WBC (Bld) 0.7 % Normal 0-1 [facility] Comment on above: Performed By: #### L 500.4050, L100.0100 ####[facility] [address] [place], [address] Eosinophils/100 WBC (Bld) 5.5 % High 0-5 [facility] Comment on above: Performed By: #### L 500.4050, L100.0100 ####[facility] [address] [place], [address] Erythrocyte distribution width (RBC) [Ratio] 13.7 % Normal 11.6-14.6 [facility] Comment on above: Performed By: #### L 500.4050, L100.0100 ####[facility] [address] [place], [address] Hematocrit (Bld) [Volume fraction] 38.1 % Low 40-54 [facility] Comment on above: Performed By: #### L 500.4050, L100.0100 ####[facility] [address] [place], [address] Hemoglobin (Bld) [Mass/Vol] 12.7 g/dL Low 13.0-16.5 [facility] Comment on above: Performed By: #### L 500.4050, L100.0100 ####[facility] [address] [place], [address] IG% 0.300 Normal 0.0-0.9 [facility] Comment on above: Result Comment: IG% - Immature Granulocytes (promyelocytes, myelocytes and metamyelocytes) > 1% indicates that a LEFT SHIFT is Present. Performed By: #### L 500.4050, L100.0100 ####[facility] [address] [place], [address] Lymphocytes/100 WBC (Bld) 31.8 % Normal 19-41 [facility] Comment on above: Performed By: #### L 500.4050, L100.0100 ####[facility] [address] [place], [address] MCH (RBC) [Entitic mass] 28.8 pg Normal 27.0-32.0 [facility] Comment on above: Performed By: #### L 500.4050, L100.0100 ####[facility] [address] [place], [address] MCHC (RBC) [Mass/Vol] 33.3 g/dL Normal 32-36 [facility] Comment on above: Performed By: #### L 500.4050, L100.0100 ####[facility] [address] [place], [address] MCV (RBC) [Entitic vol] 86.4 fL Normal 80-94 [facility] Comment on above: Performed By: #### L 500.4050, L100.0100 ####[facility] [address] [place], [address] Monocytes/100 WBC (Bld) 8.4 % Normal 0-10 [facility] Comment on above: Performed By: #### L 500.4050, L100.0100 ####[facility] [address] [place], [address] Neutrophils/100 WBC (Bld) 53.3 % Normal 47-70 [facility] Comment on above: Performed By: #### L 500.4050, L100.0100 ####[facility] [address] [place], [address] Nucleated RBC (Bld) [#/Vol] 0 10*3/uL Normal 0-5 [facility] Comment on above: Performed By: #### L 500.4050, L100.0100 ####[facility] [address] [place], [address] Platelet mean volume (Bld) [Entitic vol] 8.8 fL Normal 6.2-12.0 [facility] Comment on above: Performed By: #### L 500.4050, L100.0100 ####[facility] [address] [place], [address] Platelets (Bld) [#/Vol] 332 10*3/uL Normal 150-450 [facility] Comment on above: Performed By: #### L 500.4050, L100.0100 ####[facility] [address] [place], [address] RBC (Bld) [#/Vol] 4.41 10*6/uL Low 4.6-6.2 [facility] Comment on above: Performed By: #### L 500.4050, L100.0100 ####[facility] [address] [place], [address] RDW SD 42.9 fl Normal 35.1-43.9 [facility] Comment on above: Performed By: #### L 500.4050, L100.0100 ####[facility] [address] [place], [address] WBC (Bld) [#/Vol] 9.1 10*3/uL Normal 4.4-11.0 [facility] Comment on above: Performed By: #### L 500.4050, L100.0100 ####[facility] [address] [place], [address] Carbon dioxide, total [Moles /volume] in Central venous bloodOrdered By: Yamileth Aguirre on 10-09-2024 CO2 [Moles/Vol] 21.2 mmol/L 21.0-32.0 [facility] Chloride assayOrdered By: Cynthia Aguirre on 10-09-2024 Chloride [Moles/Vol] 104 mmol/L 98-108 [facility] Comprehensive Metabolic Prof ilon 10-09-2024 Albumin [Mass/Vol] 3.9 g/dL Normal 3.5-5.0 [facility] Comment on above: Performed By: #### L 500.4050, L100.0100 ####[facility] [address] [place], [address] Albumin/Globulin [Mass ratio] 1.8 {ratio} Normal 0.9-2.4 [facility] Comment on above: Performed By: #### L 500.4050, L100.0100 ####[facility] [address] [place], [address] ALK PHOS 67 U/L Normal 40-129 [facility] Comment on above: Performed By: #### L 500.4050, L100.0100 ####[facility] [address] [place], [address] ALT [Catalytic activity/Vol] 55 U/L High <=46 [facility] Comment on above: Performed By: #### L 500.4050, L100.0100 ####[facility] [address] [place], [address] AST [Catalytic activity/Vol] 40 U/L High <=37 [facility] Comment on above: Performed By: #### L 500.4050, L100.0100 ####[facility] [address] [place], [address] Bilirubin [Mass/Vol] 0.38 mg/dL Normal 0.00-1.30 [facility] Comment on above: Performed By: #### L 500.4050, L100.0100 ####[facility] [address] [place], [address] BUN/CRE 12.4 RATIO Normal 10-20 [facility] Comment on above: Performed By: #### L 500.4050, L100.0100 ####[facility] [address] [place], [address] Calcium [Mass/Vol] 9.1 mg/dL Normal 7.6-11.0 [facility] Comment on above: Performed By: #### L 500.4050, L100.0100 ####[facility] [address] [place], [address] Chloride [Moles/Vol] 104 mmol/L Normal 98-108 [facility] Comment on above: Performed By: #### L 500.4050, L100.0100 ####[facility] [address] [place], [address] CO2 [Moles/Vol] 21.2 mmol/L Normal 21.0-32.0 [facility] Comment on above: Performed By: #### L 500.4050, L100.0100 ####[facility] [address] [place], [address] Creatinine [Mass/Vol] 1.39 mg/dL High 0.70-1.20 [facility] Comment on above: Performed By: #### L 500.4050, L100.0100 ####[facility] [address] [place], [address] ECRCL 67.68 ml/min Normal 50-250 [facility] Comment on above: Performed By: #### L 500.4050, L100.0100 ####[facility] [address] [place], [address] GAP 12 Normal 5-15 [facility] Comment on above: Performed By: #### L 500.4050, L100.0100 ####[facility] [address] [place], [address] GFR/1.73 sq M.predicted among non-blacks MDRD (S/P/Bld) [Vol rate/Area] 64 mL/min/{1.73_m2} Normal >60 [facility] Comment on above: Result Comment: mL/m in/1.73m2 CKD-EPI Creatinine Equation (2020) Performed By: #### L 500.4050, L100.0100 ####[facility] [address] [place], [address] Globulin (S) [Mass/Vol] 2.2 g/dL Normal 2.2-4.2 [facility] Comment on above: Performed By: #### L 500.4050, L100.0100 ####[facility] [address] [place], [address] Glucose [Mass/Vol] 100 mg/dL High 70-99 [facility] Comment on above: Performed By: #### L 500.4050, L100.0100 ####[facility] [address] [place], [address] Potassium [Moles/Vol] 3.8 mmol/L Normal 3.3-5.1 [facility] Comment on above: Performed By: #### L 500.4050, L100.0100 ####[facility] [address] [place], [address] Sodium [Moles/Vol] 137 mmol/L Normal 133-145 [facility] Comment on above: Performed By: #### L 500.4050, L100.0100 ####[facility] [address] [place], [address] T PROT 6.2 g/dL Normal 5.9-8.4 [facility] Comment on above: Performed By: #### L 500.4050, L100.0100 ####[facility] [address] [place], [address] Urea nitrogen [Mass/Vol] 17 mg/dL Normal 4-19 [facility] Comment on above: Performed By: #### L 500.4050, L100.0100 ####[facility] [address] [place], [address] Consultation - Urologyon Consultation - Urology [facility] Medical Records Department [address] [place] [address] Consultation - Urology 10/09/24 1139 MR#: [id number] Acct: [id number] Name: CHAN BURCIAGA Rep #: [id number] : 1980 43 From: Salvador Rush MD PCP: Dr. Ramiro Rosa MD Status:[facility]M [facility] Consult Data Date of Consult: 10/09/24 [...] findings a separate setting once everything stable. [facility] Medical History Lives in [facility] Arthritis Back pain Non-smoker Shortness of breath [...] History mg-400 unit-5,000 unit/gram top oint (Neosporin (fei-yon-aqpnk)) oxcarbazepine 600 mg tablet 600 mg PO [...] RDW Std Deviation 41.9, RDW Coeff of Jamie 13.4, Plt Count 327, MPV 9.0, Immature Gran % (Auto) 0.700, Neut % (Auto) 68.7, Lymph % (Auto) 19.2, Ward % (Auto) 8.0, Eos % (Auto) 2.9, [...] Clarity Cloudy, Urine pH 7.0, Ur Specific [place] 1.010, U rine Protein 30 H, Urine Glucose (UA) Normal, Urine Ketones Negative, Urine Occult Blood 250 H, Urine Nitrite Negative, Urine Bilirubin Negative, Urine Urobilinogen Normal, Ur Leukocyte Esterase 25 H, Urine RBC > 100 SEEN, (more content not included)... Normal [facility] Discharge Instructionon Discharge Instruction [facility] Medical Records Department [address] [facility] [place] [address] Instructions for Home/Discharge Instructions 10/09/24 1545 MR#: [id number] Acct: [id number] Name: CHAN BURCIAGA Rep #: [id number] : 1980 43 From: Austin Mares MD [...] risk with narcotics therefore I do recommend tsir-dij-kcmmvpx stool softeners while taking narcotics. Discharge Orders/Prescriptions [...] mg tablet 600 mg PO BID Neosporin (pae-wxg-bhwrn) 3.5mg-400 unit- 5,000 unit/gram ointment 1 applic [...] can be placed): Home, Self Care 10/09/24 7532 Austin Mares MD CC: Dr. Yamileth Aguirre MD; Dr. Ramiro Rosa MD; Dr. Salvador Rush MD Signed Normal [facility] Eosinophil percentageOrdered By: Yamileth Aguirre on 10-09-2024 Eosinophils/100 WBC (Bld) 5.5 % High 0-5 [facility] Erythrocyte distribution wid th ratioOrdered By: [facility] Carla on 10-09-2024 Erythrocyte distribution width (RBC) [Ratio] 13.7 % 11.6-14.6 [facility] Erythrocyte distribution wid th standard deviationOrdered By: [facility] Carla on 10-09-2024 Erythrocyte distribution width (RBC) [Ratio] 42.9 fl 35.1-43.9 [facility] Glomerular filtration rate ( GFR) estimation/1.73 sq m using serum, plasma, or whole bOrdered By: Yamileth Aguirre on 10-09-2024 GFR/1.73 sq M.predicted among non-blacks MDRD (S/P/Bld) [Vol rate/Area] 64 mL/min/{1.73_m2} >60 [facility] Comment on above: mL/min/1.73m2 CKD-EP I Creatinine Equation (2020) Hematocrit Auto (Bld) [Volum e fraction]Ordered By: [facility] Carla on 10-09-2024 Hematocrit (Bld) [Volume fraction] 38.1 % Low 40-54 [facility] Hemoglobin measurementOrdere d By: [facility] Carla on 10-09-2024 Hemoglobin (Bld) [Mass/Vol] 12.7 g/dL Low 13.0-16.5 [facility] Immature granulocytes/100 WB C Auto (Bld)Ordered By: Yamileth Carla 10-09-2024 Immature granulocytes/100 WBC (Bld) 0.300 % 0.0-0.9 [facility] Comment on above: IG% - Immature Granu locytes (promyelocytes, myelocytes and metamyelocytes) > 1% indicates that a LEFT SHIFT is Present. Laboratory - Chemistry and C hemistry - challengeOrdered By: Yamileth Carla on 10-09-2024 AST [Catalytic activity/Vol] 40 U/L High <38 [facility] MCV (mean corpuscular volume ) determinationOrdered By: [facility] 10-09-2024 MCV (RBC) [Entitic vol] 86.4 fL 80-94 [facility] MR/POSTOP.ANEon 10-09-2024 MR/POSTOP.ANE [facility] Medical Records Department [address] [place] [address] Anesthesia Postop Eval I 10/09/24 1302 MR#: [id number] Acct: [id number] Name: CHAN BURCIAGA Rep #: [id number] : 1980 43 From: Jeevan Madden [employer]ICE [employer] PCP: Dr. Ramiro Rosa MD Status:ADM IN Y Race: C Location: LA3 [id number] Anesthesia: Postop Eval I Current Vital Signs [...] completed: Yes 10/09/24 1303 Date Jeevan Madden [employer]ICE [employer] Cosigner Signature: Date CC: Signed Normal [facility] MR/[id number] 10-09-2024 /POSTOPAN2 [facility] Medical Records Department [address] [place] [address] Anesthesia Postop Eval II 10/09/24 1338 MR#: [id number] Acct: [id number] Name: CHAN BURCIAGA Rep #: [id number] : 1980 43 From: Sandro Julian MD PCP: Dr. Ramiro Rosa MD Status:ADM IN Y Race: C Location: MS3 [id number] Anesthesia Postop Eval I Sum Postop Eval Completion status Anesthesia document: Postop Eval 1 completed: Yes Anesthesia Postop Eval I Summary Anesthesia Postop Eval I Summary: Anesthesia Postop Eval I: Assessment Summary Airway patent Yes 10/09/24 13:03 [employer].SOBR Spontaneous unlabored Yes 10/09/24 13:03 [employer].SOBR respirations Mental status Awake,Calm 10/09/24 13:03 [employer].SOBR nausea No 10/09/24 13:03 [employer].SOBR Vomiting No 10/09/24 13:03 [employer].SOBR Anesthesia Postop Eval I: Fluid Summary Crystalloid volume administer 500 10/09/24 13:03 [employer].SOBR (ml) Colloids volume administered ( ml) Blood Product volume administered (ml) Total IV fluid infused 500 10/09/24 13:03 [employer].SOBR Anesthesia Postop Eval I: Summary Notes Anesthesia Complication No 10/09/24 13:03 [employer].SOBR Anesthesia Complication Comment: Post-operative progress note Anesthesia: Postop Eval II Evaluation Mental status: Awake Pain Level: 0 nausea: No Vomiting: No 10/09/24 1338 Date Sandro Regalado Signature: Date CC: Signed Normal [facility] Mean corpuscular hemoglobin (MCH) determinationOrdered By: Carla on 10-09-2024 MCH (RBC) [Entitic mass] 28.8 pg 27.0-32.0 [facility] Mean corpuscular hemoglobin concentration (MCHC) determinationOrdered By: on 10-09-2024 MCHC (RBC) [Mass/Vol] 33.3 g/dL 32-36 [facility] Mean platelet volume determi nationOrdered By: on 10-09-2024 Platelet mean volume (Bld) [Entitic vol] 8.8 fL 6.2-12.0 [facility] Monocyte percentageOrdered B y: on 10-09-2024 Monocytes/100 WBC (Bld) 8.4 % 0-10 [facility] Neutrophil percentageOrdered By: on 10-09-2024 Neutrophils/100 WBC (Bld) 53.3 % 47-70 [facility] Nucleated red blood cell per centageOrdered By: Yamileth White on 10-09-2024 Nucleated RBC/100 WBC (Bld) [Ratio] 0 % 0-5 [facility] Operative Reporton 5 Operative Report [facility] Medical Records Department [address] [place] [address] Operative Report 10/09/24 1246 MR#: [id number] Acct: [id number] Name: CHAN BURCIAGA Rep #: [id number] : 1980 43 From: Salvador Rush MD PCP: Dr. Ramiro Rosa MD Status:ADM IN [facility] Operative Report (Standard) Operative Information Date of Procedure: 10/09/24 Pre-Operative Diagnosis: Left obstructing kidney stone Post-Operative Diagnosis: Same Surgery/Procedure Performed: Cystoscopy and left stent placement knockdown worker: No Type of Anesthesia: General RN Documented [...] One of the bladder with a 21 [place] rigid cystourethroscope found that he had a [...] MD; Dr. Salvador Rush MD Signed Normal [facility] Platelet countOrdered By: Cynthia goldstein Carla on 10-09-2024 Platelets (Bld) [#/Vol] 332 10*3/uL 150-450 [facility] Potassium measurement (mass/ volume)Ordered By: Yamileth Aguirre on 10-09-2024 Potassium (Unsp spec) [Mass/Vol] 3.8 mmol/L 3.3-5.1 [facility] RBC Auto (Bld) [#/Vol]Ordere d By: Yamileth Aguirre on 10-09-2024 RBC (Bld) [#/Vol] 4.41 10*6/uL Low 4.6-6.2 [facility] Serum creatinine measurement (mass/volume)Ordered By: Yamileth Aguirre on 10-09-2024 Creatinine [Mass/Vol] 1.39 mg/dL High 0.70-1.20 [facility] Serum globulin measurementOr dered By: Yamileth Aguirre on 10-09-2024 Globulin (S) [Mass/Vol] 2.2 g/dL 2.2-4.2 [facility] Serum glucose measurement (m ass/volume)Ordered By: Yamileth Aguirre on 10-09-2024 Glucose [Mass/Vol] 100 mg/dL High 70-99 [facility] Serum or plasma alanine rousseau otransferase (ALT) measurementOrdered By: Yamileth Aguirre on 10-09-2024 ALT [Catalytic activity/Vol] 55 U/L High <47 [facility] Serum or plasma albumin ashlee urement (mass/volume)Ordered By: Yamileth Aguirre on 10-09-2024 Albumin [Mass/Vol] 3.9 g/dL 3.5-5.0 [facility] Serum or plasma albumin/glob ulin mass ratioOrdered By: Yamileth Aguirre on 10-09-2024 Albumin/Globulin [Mass ratio] 1.8 {ratio} 0.9-2.4 [facility] Serum or plasma alkaline monica sphatase measurementOrdered By: Yamileth Carla on 10-09-2024 ALP [Catalytic activity/Vol] 67 U/L 40-129 [facility] Serum or plasma calcium ashlee urement (mass/volume)Ordered By: Yamileth Carla on 10-09-2024 Calcium [Mass/Vol] 9.1 mg/dL 7.6-11.0 [facility] Serum or plasma urea nitroge n measurement (mass/volume)Ordered By: Yamileth Aguirre on 10-09-2024 Urea nitrogen [Mass/Vol] 17 mg/dL 4-19 [facility] Sodium levelOrdered By: Treyu mn White on 10-09-2024 Sodium [Moles/Vol] 137 mmol/L 133-145 [facility] Total proteinOrdered By: Trey umn White on 10-09-2024 Protein [Mass/Vol] 6.2 g/dL 5.9-8.4 [facility] White blood cell (WBC) count Ordered By: Yamileth Aguirre on 10-09-2024 WBC (Bld) [#/Vol] 9.1 10*3/uL 4.4-11.0 [facility] 36on 10-08-2024 36 Agree, thank you 36 S: Patient's [facility] er, Iesha, spoke with [facility] nurse regarding abdominal pain and back pain B:onset symptoms/concern: back pain at least 5 day , seen in [facility] on 09/27 for UTI- completed antibiotic Abdominal [...] see that Guideline.) Protocols used: Abdominal Pain -ADULT-AH Normal [facility] Abdomen/Pelvis W IV Cont ONL Yon 10-08-2024 Abdomen/Pelvis W IV Cont ONLY [facility] Imaging Services [address] [place] [address] Abdomen/Pelvis W IV Cont ONLY MR#: [id number] Acct: [id number] Name: CHAN BURCIAGA Rep #: [id number] : 1980 M 43 From: Jd Garza PCP: Dr. Ramiro Rosa MD Status: REG ER Study: Abdomen/Pelvis W IV Cont ONLY Date of Exam: Exam# [id number] Ordering Dr: Brad Goins MD PROCEDURE: ABDOMEN/PELVIS [...] onto the urinary bladder wall. [place] Location: [facility] CC: Dr. Ramiro Rosa MD; Dr. Brad Goins MD Electronic Equipment Maint Tech: Signed Normal [facility] Absolute lymphocyte countOrd ered By: Brad Goins on 10-08-2024 Lymphocytes Auto (Unsp spec) [#/Vol] 2.64 10*3/uL 0.83-4.51 [facility] Absolute neutrophil countOrd ered By: Brad Goins on 10-08-2024 Neutrophils (Bld) [#/Vol] 9.5 10*3/uL High 2.0-7.7 [facility] Anion gap in Serum or Plasma Ordered By: Brad Goins on 10-08-2024 Anion gap [Moles/Vol] 15 mmol/L 5-15 [facility] Automated lymphocyte count a s percentage of total leukocytesOrdered By: Brad Goins on 10-08-2024 Lymphocytes/100 WBC Auto (Unsp spec) 19.2 % 19-41 [facility] BUN/creatinine ratioOrdered By: Brad Goins on 10-08-2024 Urea nitrogen/Creatinine [Mass ratio] 13.4 mg/mg 10-20 [facility] Basophil percentageOrdered B y: Brad Goins on 10-08-2024 Basophils/100 WBC (Bld) 0.5 % 0-1 [facility] Bilirubin Test strip Ql (U)O rdered By: Brad Goins on 10-08-2024 Bilirubin Ql (U) Negative Negative [facility] Bilirubin, totalOrdered By: Brad Goins on 10-08-2024 Bilirubin [Mass/Vol] 0.33 mg/dL 0.00-1.30 [facility] CBC W/Diff, Automatedon 06-0 5-2024 Absolute Lymph 2.64 X10 3/uL Normal 0.83-4.51 [facility] Comment on above: Performed By: #### L 100.0100, L500.4050 #### [facility] Laboratory [address] [place], [address] Absolute Neut 9.5 X10 3/uL High 2.0-7.7 [facility] Comment on above: Performed By: #### L 100.0100, L500.4050 #### [facility] [address] [place], [address] Basophils/100 WBC (Bld) 0.5 % Normal 0-1 [facility] Comment on above: Performed By: #### L 100.0100, L500.4050 #### [facility] [address] [place], [address] Eosinophils/100 WBC (Bld) 2.9 % Normal 0-5 [facility] Comment on above: Performed By: #### L 100.0100, L500.4050 #### [facility] [address] [place], [address] Erythrocyte distribution width (RBC) [Ratio] 13.4 % Normal 11.6-14.6 [facility] Comment on above: Performed By: #### L 100.0100, L500.4050 #### [facility] [address] [place], [address] Hematocrit (Bld) [Volume fraction] 40.6 % Normal 40-54 [facility] Comment on above: Performed By: #### L 100.0100, L500.4050 #### [facility] [address] [place], [address] Hemoglobin (Bld) [Mass/Vol] 13.7 g/dL Normal 13.0-16.5 [facility] Comment on above: Performed By: #### L 100.0100, L500.4050 #### [facility] [address] [place], [address] IG% 0.700 Normal 0.0-0.9 [facility] Comment on above: Result Comment: IG% - Immature Granulocytes (promyelocytes, myelocytes and metamyelocytes) > 1% indicates that a LEFT SHIFT is Present. Performed By: #### L 100.0100, L500.4050 #### [facility] [address] [place], [address] Lymphocytes/100 WBC (Bld) 19.2 % Normal 19-41 [facility] Comment on above: Performed By: #### L 100.0100, L500.4050 #### [facility] [address] [place], [address] MCH (RBC) [Entitic mass] 29.0 pg Normal 27.0-32.0 [facility] Comment on above: Performed By: #### L 100.0100, L500.4050 #### [facility] [address] [place], [address] MCHC (RBC) [Mass/Vol] 33.7 g/dL Normal 32-36 [facility] Comment on above: Performed By: #### L 100.0100, L500.4050 #### [facility] [address] [place], [address] MCV (RBC) [Entitic vol] 85.8 fL Normal 80-94 [facility] Comment on above: Performed By: #### L 100.0100, L500.4050 #### [facility] [address] [place], [address] Monocytes/100 WBC (Bld) 8.0 % Normal 0-10 [facility] Comment on above: Performed By: #### L 100.0100, L500.4050 #### [facility] [address] [place], [address] Neutrophils/100 WBC (Bld) 68.7 % Normal 47-70 [facility] Comment on above: Performed By: #### L 100.0100, L500.4050 #### [facility] [address] [place], [address] Nucleated RBC (Bld) [#/Vol] 0 10*3/uL Normal 0-5 [facility] Comment on above: Performed By: #### L 100.0100, L500.4050 #### [facility] [address] [place], [address] Platelet mean volume (Bld) [Entitic vol] 9.0 fL Normal 6.2-12.0 [facility] Comment on above: Performed By: #### L 100.0100, L500.4050 #### [facility] [address] [place], [address] Platelets (Bld) [#/Vol] 327 10*3/uL Normal 150-450 [facility] Comment on above: Performed By: #### L 100.0100, L500.4050 #### [facility] [address] [place], [address] RBC (Bld) [#/Vol] 4.73 10*6/uL Normal 4.6-6.2 [facility] Comment on above: Performed By: #### L 100.0100, L500.4050 #### [facility] [address] [place], [address] RDW SD 41.9 fl Normal 35.1-43.9 [facility] Comment on above: Performed By: #### L 100.0100, L500.4050 #### [facility] [address] [place], [address] WBC (Bld) [#/Vol] 13.8 10*3/uL High 4.4-11.0 [facility] Comment on above: Performed By: #### L 100.0100, L500.4050 #### [facility] [address] [place], [address] CNOVon 10-08-2024 CNOV Office Visit (UCWSTR ) BURCIAGAMARTIRN Marcela ([id number]) 1980 M Date Time Provider Department 10/08/24 4:15 PM ZACH CARDENAS [facility] During your visit today, we recorded the following information about you: Temperature Pulse Respiration Blood pressure 97 degrees 97/minute 20/minute 134/88 Weight 85 kg Zach Cardenas MD 10/08/2024 4:34 PM Signed [facility] Subjective Chan Burciaga is a [...] He is not ill-appearing. Comments: Accompanied by [facility] caregiver Eyes: Extraocular Movements: Extraocular movements intact. [...] kidney stones [Z87.442] Order(s):UA DIP, URINE (POC) [2089101] Order #: [id number]. #:[id number] Prescriptions as of 10/11/2024 - clonazePAM (KLONOPIN) 0.5 mg tablet Take [...] tablet Take 500 mg by mouth. - Vmafwvgz-GppmznjzgFw-Djhdnj vikram 3.5-500-10,000 bn-qjkm-vdqr oint APPLY TOPICALLY TO INSIDE OF NOSE 3 TIMES DAILY NEEDED FOR DR (more content not included)... Normal [facility] Carbon dioxide, total [Moles /volume] in Central venous bloodOrdered By: rBad Goins on 10-08-2024 CO2 [Moles/Vol] 19.3 mmol/L Low 21.0-32.0 [facility] Chloride assayOrdered By: Hemanth Goins on 10-08-2024 Chloride [Moles/Vol] 101 mmol/L 98-108 [facility] Comprehensive Metabolic Prof mono 10-08-2024 Albumin [Mass/Vol] 4.4 g/dL Normal 3.5-5.0 [facility] Comment on above: Performed By: #### L 100.0100, L500.4050 #### [facility] [address] [place], [address] Albumin/Globulin [Mass ratio] 1.6 {ratio} Normal 0.9-2.4 [facility] Comment on above: Performed By: #### L 100.0100, L500.4050 #### [facility] [address] [place], [address] ALK PHOS 75 U/L Normal 40-129 [facility] Comment on above: Performed By: #### L 100.0100, L500.4050 #### [facility] [address] [place], [address] ALT [Catalytic activity/Vol] 66 U/L High <=46 [facility] Comment on above: Performed By: #### L 100.0100, L500.4050 #### [facility] [address] [place], [address] AST [Catalytic activity/Vol] 51 U/L High <=37 [facility] Comment on above: Performed By: #### L 100.0100, L500.4050 #### [facility] [address] [place], [address] Bilirubin [Mass/Vol] 0.33 mg/dL Normal 0.00-1.30 [facility] Comment on above: Performed By: #### L 100.0100, L500.4050 #### [facility] [address] [place], [address] BUN/CRE 13.4 RATIO Normal 10-20 [facility] Comment on above: Performed By: #### L 100.0100, L500.4050 #### [facility] [address] [place], [address] Calcium [Mass/Vol] 9.9 mg/dL Normal 7.6-11.0 [facility] Comment on above: Performed By: #### L 100.0100, L500.4050 #### [facility] [address] [place], [address] Chloride [Moles/Vol] 101 mmol/L Normal 98-108 [facility] Comment on above: Performed By: #### L 100.0100, L500.4050 #### [facility] [address] [place], [address] CO2 [Moles/Vol] 19.3 mmol/L Low 21.0-32.0 [facility] Comment on above: Performed By: #### L 100.0100, L500.4050 #### [facility] [address] [place], [address] Creatinine [Mass/Vol] 1.32 mg/dL High 0.70-1.20 [facility] Comment on above: Performed By: #### L 100.0100, L500.4050 #### [facility] [address] [place], [address] ECRCL 72.57 ml/min Normal 50-250 [facility] Comment on above: Performed By: #### L 100.0100, L500.4050 #### [facility] [address] [place], [address] GAP 15 Normal 5-15 [facility] Comment on above: Performed By: #### L 100.0100, L500.4050 #### [facility] [address] [place], [address] GFR/1.73 sq M.predicted among non-blacks MDRD (S/P/Bld) [Vol rate/Area] 68 mL/min/{1.73_m2} Normal >60 [facility] Comment on above: Result Comment: mL/m in/1.73m2 CKD-EPI Creatinine Equation (2020) Performed By: #### L 100.0100, L500.4050 #### [facility] [address] [place], [address] Globulin (S) [Mass/Vol] 2.7 g/dL Normal 2.2-4.2 [facility] Comment on above: Performed By: #### L 100.0100, L500.4050 #### [facility] [address] [place], [address] Glucose [Mass/Vol] 100 mg/dL High 70-99 [facility] Comment on above: Performed By: #### L 100.0100, L500.4050 #### [facility] [address] [place], [address] Potassium [Moles/Vol] 4.0 mmol/L Normal 3.3-5.1 [facility] Comment on above: Performed By: #### L 100.0100, L500.4050 #### [facility] [address] [place], [address] Sodium [Moles/Vol] 135 mmol/L Normal 133-145 [facility] Comment on above: Performed By: #### L 100.0100, L500.4050 #### [facility] [address] [place], [address] T PROT 7.1 g/dL Normal 5.9-8.4 [facility] Comment on above: Performed By: #### L 100.0100, L500.4050 #### [facility] [address] [place], [address] Urea nitrogen [Mass/Vol] 18 mg/dL Normal 4-19 [facility] Comment on above: Performed By: #### L 100.0100, L500.4050 #### [facility] [address] [place], [address] Emergency Department Summary on 10-08-2024 Emergency Department Summary [facility] Medical Records Department [address] [place] [address] Emergency Department Summary 10/08/24 MR#: [id number] Acct: [id number] Name: CHAN BUCRIAGA Rep #: [id number] : 1980 43 From: Brad Goins MD PCP: Dr. Ramiro Rosa MD Status:ADM IN Location: MS3 SE851-1 HPI HPI - GI History of Present [...] or Hematuria Narrative Narrative: 43-year-old male from [facility]. History of hypertension kidney stones. Said the [...] Prior similar symptoms: No Recent Illness/[facility]: [facility] Medical History Lives in [facility] Arthritis Back pain Non-smoker Shortness of breath [...] History mg-400 unit-5,000 unit/gram top oint (Neosporin (zwk-jqx-utqnx)) oxcarbazepine 600 mg tablet 600 mg PO [...] Physical E (more content not included)... Normal [facility] Eosinophil percentageOrdered By: Brad Goins on 10-08-2024 Eosinophils/100 WBC (Bld) 2.9 % 0-5 [facility] Erythrocyte distribution wid th ratioOrdered By: Brad Goins on 10-08-2024 Erythrocyte distribution width (RBC) [Ratio] 13.4 % 11.6-14.6 [facility] Erythrocyte distribution wid th standard deviationOrdered By: Brad Goins on 10-08-2024 Erythrocyte distribution width (RBC) [Ratio] 41.9 fl 35.1-43.9 [facility] Glomerular filtration rate ( GFR) estimation/1.73 sq m using serum, plasma, or whole bOrdered By: Brad Goins on 10-08-2024 GFR/1.73 sq M.predicted among non-blacks MDRD (S/P/Bld) [Vol rate/Area] 68 mL/min/{1.73_m2} >60 [facility] Comment on above: mL/min/1.73m2 CKD-EP I Creatinine Equation (2020) [facility]&P Exam - Hospitalist [facility] Medical Records Department [address] [place] [address] H P Exam - Hospitalist 10/08/242001 MR#: [id number] Acct: [id number] Name: CHAN BURCIAGA Rep #: [id number] : 1980 43 From: Yamileth Aguirre MD PCP: Dr. Ramiro Rosa MD Status:ADM IN Location: MS3 MI915-0 HPI - General General Date of Admission: 10/08/24 Date of Service: 10/08/24 Chief Complaint: Abdominal pain, flank pain. HPI Narrative The patient is a 43 y/o M w/ intellectual debilities living in a [facility] w/ PMHx: CKD stage II per GFR trending, HTN, HLD, Anxiety and Depression/Mood disorder, Obesity who presents to the [facility] ED on 10/08/24 with history of abdominal [...] after morphine but discussion with patient and [facility] staff he rates his discomfort previously potentially [...] x 1. ED discussed case with urology. [facility] Medical History Lives in [facility] Arthritis Back pain Non-smoker Shortness of breath [...] History mg-400 unit-5,000 unit/gram top oint (Neosporin (aqd-lod-madek)) oxcarbazepine 600 mg tablet 600 mg PO [...] with oth (more content not included)... Normal [facility] Hematocrit Auto (Bld) [Volum e fraction]Ordered By: Brad Goins on 10-08-2024 Hematocrit (Bld) [Volume fraction] 40.6 % 40-54 [facility] Hemoglobin measurementOrdere d By: Brad Goins on 10-08-2024 Hemoglobin (Bld) [Mass/Vol] 13.7 g/dL 13.0-16.5 [facility] Immature granulocytes/100 WB C Auto (Bld)Ordered By: Brad Goins on 10-08-2024 Immature granulocytes/100 WBC (Bld) 0.700 % 0.0-0.9 [facility] Comment on above: IG% - Immature Granu locytes (promyelocytes, myelocytes and metamyelocytes) > 1% indicates that a LEFT SHIFT is Present. Ketones Test strip Ql (U)Ord ered By: Brad Goins on 10-08-2024 Ketones Ql (U) Negative Negative [facility] - Chemistry and C hemistry - challengeOrdered By: Brad Goins on 10-08-2024 AST [Catalytic activity/Vol] 51 U/L High <38 [facility] MCV (mean corpuscular volume ) determinationOrdered By: Brad Goins on 10-08-2024 MCV (RBC) [Entitic vol] 85.8 fL 80-94 [facility] Mean corpuscular hemoglobin (MCH) determinationOrdered By: Brad Goins on 10-08-2024 MCH (RBC) [Entitic mass] 29.0 pg 27.0-32.0 [facility] Mean corpuscular hemoglobin concentration (MCHC) determinationOrdered By: Brad Goins on 10-08-2024 MCHC (RBC) [Mass/Vol] 33.7 g/dL 32-36 [facility] Mean platelet volume determi nationOrdered By: Brad Goins on 10-08-2024 Platelet mean volume (Bld) [Entitic vol] 9.0 fL 6.2-12.0 [facility] Microscopic analysis of urin e for red blood cells (RBC)Ordered By: Brad Goins on 10-08-2024 Microscopic analysis of urine for red blood cells (RBC) > 100 SEEN /hpf 0-5 [facility] Monocyte percentageOrdered B y: Brad Goins on 10-08-2024 Monocytes/100 WBC (Bld) 8.0 % 0-10 [facility] Mucus LM Ql (Urine sed)Order ed By: Brad Goins on 10-08-2024 Mucus Ql (Urine sed) 0 SEEN /hpf [facility] Neutrophil percentageOrdered By: Brad Goins on 10-08-2024 Neutrophils/100 WBC (Bld) 68.7 % 47-70 [facility] Nitrite Test strip Ql (U)Ord ered By: Brad Goins on 10-08-2024 Nitrite Ql (U) Negative Negative [facility] Nucleated red blood cell per centageOrdered By: Brad Goins on 10-08-2024 Nucleated RBC/100 WBC (Bld) [Ratio] 0 % 0-5 [facility] Platelet countOrdered By: Hemanth Goins on 10-08-2024 Platelets (Bld) [#/Vol] 327 10*3/uL 150-450 [facility] Potassium measurement (mass/ volume)Ordered By: Brad Goins on 10-08-2024 Potassium (Unsp spec) [Mass/Vol] 4.0 mmol/L 3.3-5.1 [facility] Protein Test strip Ql (U)Ord ered By: Brad Goins on 10-08-2024 Protein Ql (U) 30 mg/dl High Negative [facility] RBC Auto (Bld) [#/Vol]Ordere d By: Brad Goins on 10-08-2024 RBC (Bld) [#/Vol] 4.73 10*6/uL 4.6-6.2 [facility] Serum creatinine measurement (mass/volume)Ordered By: Brad Goins on 10-08-2024 Creatinine [Mass/Vol] 1.32 mg/dL High 0.70-1.20 [facility] Serum globulin measurementOr dered By: Brad Goins on 10-08-2024 Globulin (S) [Mass/Vol] 2.7 g/dL 2.2-4.2 [facility] Serum glucose measurement (m ass/volume)Ordered By: Brad Goins on 10-08-2024 Glucose [Mass/Vol] 100 mg/dL High 70-99 [facility] Serum or plasma alanine rousseau otransferase (ALT) measurementOrdered By: Brad Goins on 10-08-2024 ALT [Catalytic activity/Vol] 66 U/L High <47 [facility] Serum or plasma albumin ashlee urement (mass/volume)Ordered By: Brad Goins on 10-08-2024 Albumin [Mass/Vol] 4.4 g/dL 3.5-5.0 [facility] Serum or plasma albumin/glob ulin mass ratioOrdered By: Brad Goins on 10-08-2024 Albumin/Globulin [Mass ratio] 1.6 {ratio} 0.9-2.4 [facility] Serum or plasma alkaline monica sphatase measurementOrdered By: Brad Goins on 10-08-2024 ALP [Catalytic activity/Vol] 75 U/L 40-129 [facility] Serum or plasma calcium ashlee urement (mass/volume)Ordered By: Brad Goins on 10-08-2024 Calcium [Mass/Vol] 9.9 mg/dL 7.6-11.0 [facility] Serum or plasma urea nitroge n measurement (mass/volume)Ordered By: Brad Goins on 10-08-2024 Urea nitrogen [Mass/Vol] 18 mg/dL 4-19 [facility] Sodium levelOrdered By: Brad Goins on 10-08-2024 Sodium [Moles/Vol] 135 mmol/L 133-145 [facility] Squamous epithelial cells de tection in urine sediment by light microscopyOrdered By: Brad Goins on 10-08-2024 Epithelial cells.squamous LM Ql (Urine sed) 0 SEEN /hpf 0-5 [facility] Total proteinOrdered By: Marek Goins on 10-08-2024 Protein [Mass/Vol] 7.1 g/dL 5.9-8.4 [facility] UA DIP, URINE (POC)on 2024 BILIRUBIN UA (POCT) Negative Negative [facility] CLARITY UA (POCT) Cloudy [facility] COLOR UA (POCT) Dark yellow [facility] GLUCOSE UA (POCT) Negative Negative mg/dL [facility] Hemoglobin Ql (U) Large Abnormal Negative [facility] Interpretation and review of laboratory results Abnormal [facility] KETONE UA (POCT) Negative Negative mg/dL [facility] LEUKOCYTES UA (POCT) Negative Negative [facility] NITRITE UA (POCT) Negative Negative [facility] PH UA (POCT) 7 4.5 - 8.0 [facility] Protein Ql (U) 30 mg/dL Abnormal Negative [facility] SPECIFIC GRAVITY UA (POCT) 1.02 1.005 - 1.030 [facility] UROBILINOGEN UA (POCT) 1 Lin l E.U./dL [facility] Location:[facility], [address] [place] [address], [place], [place], [id number] [place] [address] POINT OF CARE [facility] Urinalysis, Completeon 10-08 BACTERIA 2+ /hpf Normal None Seen [facility] Comment on above: Order Comment: CLEAN CATCH Performed By: #### L 400.0001 ####[facility] [address] [place], [address] RBC > 100 SEEN Normal 0-5 [facility] Comment on above: Order Comment: CLEAN CATCH Performed By: #### L 400.0001 ####[facility] [address] [place], [address] EPI,SQUAMOUS 0 SEEN Normal 0-5 [facility] Comment on above: Order Comment: CLEAN CATCH Performed By: #### L 400.0001 ####[facility] [address] [place], [address] Mucus Ql (Urine sed) 0 SEEN Normal [facility] Comment on above: Order Comment: CLEAN CATCH Performed By: #### L 400.0001 ####[facility] [address] [place], [address] WBC 0 SEEN Normal 0-5 [facility] Comment on above: Order Comment: CLEAN CATCH Performed By: #### L 400.0001 ####[facility] [address] [place], [address] Urine clarityOrdered By: Marek Goins on 10-08-2024 Clarity (U) Cloudy Clear [facility] Urine color determinationOrd ered By: Brad Goins on 10-08-2024 Color (U) Yellow Yellow [facility] Urine glucose detectionOrder ed By: Brad Goins on 10-08-2024 Glucose Ql (U) Normal mg/dl Normal [facility] Urine leukocyte esterase det ection by dipstickOrdered By: Brad Goins on 10-08-2024 Leukocyte esterase Test strip Ql (U) 25 /ul High Negative [facility] Urine pHOrdered By: Brad marquez on 10-08-2024 pH (U) 7.0 [pH] 5.0 - 8.0 [facility] Urine sediment bacteria coun t by microscopy (number/high power field)Ordered By: Brad Goins on 10-08-2024 Bacteria LM.HPF (Urine sed) [#/Area] 2 /[HPF] None Seen [facility] Urine specific gravity measu rementOrdered By: Brad Goins on 10-08-2024 Specific gravity (U) [Rel density] 1.010 1.002-1.03 0 [facility] Urine urobilinogen measureme ntOrdered By: Brad Goins on 10-08-2024 Urobilinogen Ql (U) Normal mg/dl Normal [facility] White blood cell (WBC) count Ordered By: Brad Goins on 10-08-2024 WBC (Bld) [#/Vol] 13.8 10*3/uL High 4.4-11.0 [facility] White blood cell countOrdere d By: Brad Goins on 10-08-2024 White blood cell count 0 SEEN /hpf 0-5 [facility] 36on 10-02-2024 36 Reviewed chart. Refi ll appropriate. RX sent. Normal [facility] 36 Pharmacy sent over f ax requesting refills for a 31 day supply with 11 refills OR 93 day supply with 3 refills. I pended a 93 day supply with 1 refill. Next appt: 10/15/2024 Normal [facility] Bacteria Ur Culton 5 Bacteria identified Cx Nom (U) ORGANISM ID: 1 <10,000 CFU/ml Normal urogenital princess Normal [facility] Comment on above: Performed By: #### 6 30-4 #### [facility] CLIA [id number] [address] [place] [address] [place] [facility] CNOVon 09-27-2024 CNOV Office Visit (UCWSTR ) CHAN BURCIAGA ([id number]) 1980 M Date Time Provider Department 09/27/24 10:00 AM SEAN VERDUZCO [facility] During your visit today, we recorded the following information about you: Temperature Pulse Blood pressure Weight 97.1 degrees 96/minute 110/66 86.2 kg Sean Verduzco APRN.[facility] 09/27/2024 10:14 AM Signed [facility] Subjective Chan Burciaga is a [...] of care. This note was generated using [employer] software. It may contain errors in wording, punctuation, or spelling. Sean Verduzco APRN.[employer] History and Record Review Clinical information obtained from an independent historian. History obtained from or confirmed by: other (see comments) and parent. External record(s) reviewed: prior outpatient record. Disposition The patient was discharged. Procedures Referring Provider: SELF [200] Allergies As of Date: 09/27/2024 Noted Allergy Reaction RISPERIDONE 03/10/2015 1 - Mental Status Change Date Reviewed: 09/27/2024 Reviewed by: Sean Verduzco APRN.[employer]ANDER - Fully Assessed Reason for Visit: Hematuria [335] Primary Visit Diagnosis:Acute cystitis with hematuria [N30.01] Order(s):BACTERIAL CULTURE, URINE [SQURCUL] Order #: [id number]. #:[id number] UA DIP, URINE (POC) [] Order #: [id number] UA DIP, URINE (POC) [] Order #: [id number]. #:[id number] -LAB cephALEXin (KEFLEX) 500 mg capsuleTake 1 [...] BY M (more content not included)... Normal [facility] UA DIP, URINE (POC)on 2024 BILIRUBIN UA (POCT) Small Abnormal Negative [facility] CLARITY UA (POCT) Cloudy [facility] COLOR UA (POCT) Red [facility] GLUCOSE UA (POCT) Negative Negative mg/dL [facility] Hemoglobin Ql (U) Large Abnormal Negative [facility] Interpretation and review of laboratory results Abnormal [facility] KETONE UA (POCT) Negative Negative mg/dL [facility] LEUKOCYTES UA (POCT) Negative Negative [facility] NITRITE UA (POCT) Negative Negative [facility] PH UA (POCT) 6.5 4.5 - 8.0 [facility] Protein Ql (U) 100 mg/dL Abnormal Negative [facility] SPECIFIC GRAVITY UA (POCT) 1.02 1.005 - 1.030 [facility] UROBILINOGEN UA (POCT) 1 Lin l E.U./dL [facility] Location:[address], [place], [place], [address] [place] [address] POINT OF CARE [facility] 3609-24-2024 36 Medication name: nab umetone (Relafen) 500 [...] 07/23/24 Updated/Validated preferred pharmacy: Yes Steve MCBRIDE ([facility]) - [facility] [address] [facility] [address] [place] [address] Patient instructed to contact the pharmacy prior to picking up the medication: Yes 36on 09-16-2024 36 Notified Brad. 36 Yes, he is still see ing Dr. Rosa and yes I will continue to sign for his home care 36 Name of caller: Brad ([facility]) Contact phone number: [phone] Relationship to Patient: na Provider: Dr. Rosa Practice: [facility] Chief Complaint/Reason for Call: Calling to advise Pt will have re-cert for residential next week. Needs to verify that Pt is still seeing Dr. Rosa and that Dr. Rosa will continue to follow Pt for services. Please advise Best time of day caller can be reached: Any AM Patient advised that office/PCP has 24-48 business hours to return their call: Yes [address] 09-04-2024 36 Rx sent. Follow up a s scheduled. [place] [address] Received fax for ref ill request. Pended. [address] 08-20-2024 36 Prescription Request : Last medication check: 10/24/2023 Last physical exam: 04/20/2024 Next scheduled appointment: 10/15/2024 CSA on file (date): N/A Last urine drug screen: N/A Last date of refill on this medication 05/01/[address] 08-10-2024 [address] 07-23-2024 36 Medication name: nab umetone [...] prior to picking up the medication: Yes [address] 07-15-2024 36 Notified Brad. [place] [address] Okay to continue, ye s we will sign and follow [place] [address] Name of caller: Brad Contact phone number: [phone] Relationship to Patient: [facility] Provider: Dr. Rosa Practice: [facility] Chief Complaint/Reason for Call: Brad called and stated Chan is doing fine and is asking to re certify patient for residential to be continued and is asking to have a call back by 07/17/24. Brad is asking to follow and sign the plan of care. Please advise. Best time of day caller can be reached: any Patient advised that office/PCP has 24-48 business hours to return their call: Yes 36on 07-14-2024 36 Medication name: doxazosin (Cardura) 2 [...] prior to picking up the medication: Yes Trileptal-Oxcarbazepineon OXCARBAZEPINE 31 ug/mL Normal 10-35 [facility] Comment on above: Result Comment: This test was developed and its performance characteristics determined by [employer]. It has not been cleared or approved by the Food and Drug Administration. Detection Limit = 1 Performed at: [address] [id number] Real Estate Appraiser: Andra Sawant MD, Phone: [phone] Performed By: #### L 500.4050, L3800.1700, L100.0500 ####[facility] [address] [place], [place], [id number] Albumin to globulin ratioOrd ered By: Dajuan Morrison on 06-26-2024 Albumin/Globulin [Mass ratio] 1.2 {ratio} 0.9-2.4 [facility] Bilirubin, totalOrdered By: Dajuan Morrison on 06-26-2024 Bilirubin [Mass/Vol] 0.50 mg/dL 0.20-1.00 [facility] Comment on above: For patients on eltr ombopag therapy, use of Dimension Dowling TBIL is not recommended. Blood urea nitrogen (BUN)/cr eatinine ratioOrdered By: Dajuan Morrison on 06-26-2024 Urea nitrogen/Creatinine [Mass ratio] 15.7 mg/mg 02-22 [facility] CBC-Complete Blood Cnt No Di ffon 06-26-2024 Erythrocyte distribution width (RBC) [Ratio] 13.3 % Normal 11.6-14.6 [facility] Comment on above: Performed By: #### L 500.4050, L3800.1700, L100.0500 ####[facility] [address] [place], [address] Hematocrit (Bld) [Volume fraction] 42.3 % Normal 40-54 [facility] Comment on above: Performed By: #### L 500.4050, L3800.1700, L100.0500 ####[facility] [address] [place], [address] Hemoglobin (Bld) [Mass/Vol] 14.0 g/dL Normal 13.0-16.5 [facility] Comment on above: Performed By: #### L 500.4050, L3800.1700, L100.0500 ####[facility] [address] [place], [address] MCH (RBC) [Entitic mass] 28.6 pg Normal 27.0-32.0 [facility] Comment on above: Performed By: #### L 500.4050, L3800.1700, L100.0500 ####[facility] [address] [place], [address] MCHC (RBC) [Mass/Vol] 33.1 g/dL Normal 32-36 [facility] Comment on above: Performed By: #### L 500.4050, L3800.1700, L100.0500 ####[facility] [address] [place], [address] MCV (RBC) [Entitic vol] 86.5 fL Normal 80-94 [facility] Comment on above: Performed By: #### L 500.4050, L3800.1700, L100.0500 ####[facility] [address] [place], [address] Platelet mean volume (Bld) [Entitic vol] 9.3 fL Normal 6.2-12.0 [facility] Comment on above: Performed By: #### L 500.4050, L3800.1700, L100.0500 ####[facility] [address] [place], [address] Platelets (Bld) [#/Vol] 324 10*3/uL Normal 150-450 [facility] Comment on above: Performed By: #### L 500.4050, L3800.1700, L100.0500 ####[facility] [address] [place], [address] RBC (Bld) [#/Vol] 4.89 10*6/uL Normal 4.6-6.2 [facility] Comment on above: Performed By: #### L 500.4050, L3800.1700, L100.0500 ####[facility] [address] [place], [address] RDW SD 42.1 fl Normal 35.1-43.9 [facility] Comment on above: Performed By: #### L 500.4050, L3800.1700, L100.0500 ####[facility] [address] [place], [address] WBC (Bld) [#/Vol] 9.2 10*3/uL Normal 4.4-11.0 [facility] Comment on above: Performed By: #### L 500.4050, L3800.1700, L100.0500 ####[facility] [address] [place], [address] Carbon dioxide measurementOr dered By: Dajuan Morrison on 06-26-2024 CO2 [Moles/Vol] 23.0 mmol/L 21.0-32.0 [facility] Chloride measurementOrdered By: Dajuan Morrison on 06-26-2024 Chloride [Moles/Vol] 107 mmol/L 98-107 [facility] Comprehensive Metabolic Prof ilon 06-26-2024 Albumin [Mass/Vol] 3.7 g/dL Normal 3.2-5.0 [facility] Comment on above: Performed By: #### L 500.4050, L3800.1700, L100.0500 ####[facility] [address] [place], [address] Albumin/Globulin [Mass ratio] 1.2 {ratio} Normal 0.9-2.4 [facility] Comment on above: Performed By: #### L 500.4050, L3800.1700, L100.0500 ####[facility] [address] [place], [address] ALK P 63 U/L Normal 45-117 [facility] Comment on above: Performed By: #### L 500.4050, L3800.1700, L100.0500 ####[facility] [address] [place], [address] ALT [Catalytic activity/Vol] 99 U/L High 16-61 [facility] Comment on above: Performed By: #### L 500.4050, L3800.1700, L100.0500 ####[facility] [address] [place], [address] AST [Catalytic activity/Vol] 41 U/L High 15-37 [facility] Comment on above: Performed By: #### L 500.4050, L3800.1700, L100.0500 ####[facility] [address] [place], [address] Bilirubin [Mass/Vol] 0.50 mg/dL Normal 0.20-1.00 [facility] Comment on above: Result Comment: For patients on eltrombopag therapy, use of Dimension Dowling TBIL is not recommended. Performed By: #### L 500.4050, L3800.1700, L100.0500 ####[facility] [address] [place], [address] BUN/CRE 15.7 RATIO Normal 10-20 [facility] Comment on above: Performed By: #### L 500.4050, L3800.1700, L100.0500 ####[facility] [address] [place], [address] CA,Total 9.4 mg/dL Normal 8.5-10.1 [facility] Comment on above: Performed By: #### L 500.4050, L3800.1700, L100.0500 ####[facility] [address] [place], [address] Chloride [Moles/Vol] 107 mmol/L Normal 98-107 [facility] Comment on above: Performed By: #### L 500.4050, L3800.1700, L100.0500 ####[facility] [address] [place], [address] CO2 [Moles/Vol] 23.0 mmol/L Normal 21.0-32.0 [facility] Comment on above: Performed By: #### L 500.4050, L3800.1700, L100.0500 ####[facility] [address] [place], [address] Creatinine [Mass/Vol] 1.08 mg/dL Normal 0.70-1.30 [facility] Comment on above: Result Comment: The validity of the calculated GFR GFRAA in patients over 70 years has not been determined. Clinical correlation is essential. Performed By: #### L 500.4050, L3800.1700, L100.0500 ####[facility] [address] [place], [address] EST GFR - AA 95 mL/min Normal >60 [facility] Comment on above: Result Comment: Afri can [place] GFR Calc Performed By: #### L 500.4050, L3800.1700, L100.0500 ####[facility] [address] [place], [address] GAP 8 Normal 5-15 [facility] Comment on above: Performed By: #### L 500.4050, L3800.1700, L100.0500 ####[facility] [address] [place], [address] GFR/1.73 sq M.predicted among non-blacks MDRD (S/P/Bld) [Vol rate/Area] 78 mL/min/{1.73_m2} Normal >60 [facility] Comment on above: Result Comment: Non- GFR Calc Performed By: #### L 500.4050, L3800.1700, L100.0500 ####[facility] [address] [place], [address] Globulin (S) [Mass/Vol] 3.2 g/dL Normal 2.2-4.2 [facility] Comment on above: Performed By: #### L 500.4050, L3800.1700, L100.0500 ####[facility] [address] [place], [address] Glucose [Mass/Vol] 107 mg/dL High 74-106 [facility] Comment on above: Result Comment: Fast ing Glucose result from 100 to 125 mg/dL suggests IMPAIRED HOMEOSTASIS per A.D.A. criteria. Performed By: #### L 500.4050, L3800.1700, L100.0500 ####[facility] [address] [place], [address] Potassium [Moles/Vol] 3.8 mmol/L Normal 3.5-5.1 [facility] Comment on above: Performed By: #### L 500.4050, L3800.1700, L100.0500 ####[facility] [address] [place], [address] Sodium [Moles/Vol] 138 mmol/L Normal 136-145 [facility] Comment on above: Performed By: #### L 500.4050, L3800.1700, L100.0500 ####[facility] [address] [place], [address] T PROT 6.9 g/dL Normal 6.4-8.2 [facility] Comment on above: Performed By: #### L 500.4050, L3800.1700, L100.0500 ####[facility] [address] [place], [address] Urea nitrogen [Mass/Vol] 17 mg/dL Normal 7-18 [facility] Comment on above: Performed By: #### L 500.4050, L3800.1700, L100.0500 ####[facility] [address] [place], [address] Erythrocyte distribution wid th ratioOrdered By: Dajuan Morrison on 06-26-2024 Erythrocyte distribution width (RBC) [Ratio] 13.3 % 11.6-14.6 [facility] Erythrocyte distribution wid th standard deviationOrdered By: Dajuan Morrison on 06-26-2024 Erythrocyte distribution width (RBC) [Entitic vol] 42.1 fL 35.1-43.9 [facility] Erythrocyte distribution width (RBC) [Ratio] 42.1 fl 35.1-43.9 [facility] Estimated glomerular filtrat ion rate (GFR) AmericanOrdered By: Dajuan Morrison on 06-26-2024 Estimated GFR (MDRD) Amer 95 mL/min >60 [facility] Comment on above: GFR Calc Glomerular filtration rate ( GFR) estimationOrdered By: Dajuan Morrison on 06-26-2024 Estimated GFR (MDRD) Non-Af Amer 78 mL/min >60 [facility] Comment on above: Non- GFR Calc GFR/1.73 sq M.predicted among non-blacks MDRD (S/P/Bld) [Vol rate/Area] 78 mL/min/{1.73_m2} >60 [facility] Comment on above: Non- GFR Calc Glucose measurementOrdered B y: Dajuan Morrison on 06-26-2024 Glucose [Mass/Vol] 107 mg/dL High 74-106 [facility] Comment on above: Fasting Glucose resu lt from 100 to 125 mg/dL suggests IMPAIRED HOMEOSTASIS per A.D.A. criteria. Hematocrit Auto (Bld) [Volum e fraction]Ordered By: Dajuan Morrison on 06-26-2024 Hematocrit (Bld) [Volume fraction] 42.3 % 40-54 [facility] Hemoglobin measurementOrdere d By: Dajuan Morrison on 06-26-2024 Hemoglobin (Bld) [Mass/Vol] 14.0 g/dL 13.0-16.5 [facility] Laboratory - Chemistry and C hemistry - challengeOrdered By: Dajuan Morrison on 06-26-2024 AST [Catalytic activity/Vol] 41 U/L High 15-37 [facility] MCV (mean corpuscular volume ) determinationOrdered By: Dajuan Morrison on 06-26-2024 MCV (RBC) [Entitic vol] 86.5 fL 80-94 [facility] Mean corpuscular hemoglobin (MCH) determinationOrdered By: Dajuan Morrison on 06-26-2024 MCH (RBC) [Entitic mass] 28.6 pg 27.0-32.0 [facility] Mean corpuscular hemoglobin concentration (MCHC) determinationOrdered By: Dajuan Morrison on 06-26-2024 MCHC (RBC) [Mass/Vol] 33.1 g/dL 32-36 [facility] Mean platelet volume determi nationOrdered By: Dajuan Morrison on 06-26-2024 Platelet mean volume (Bld) [Entitic vol] 9.3 fL 6.2-12.0 [facility] OXcarbazepine [Mass/Vol]Orde red By: Dajuan Morrison on 06-26-2024 Oxcarbazepine Level 31 ug/mL 10-35 [facility] Comment on above: This test was develo ped and its performance characteristicsdetermined by [employer]. It has not been cleared orapproved by the Food and Drug Administration. Detection Limit = 1Performed at: [facility] [address] [id number] Director: Andra Sawant MD, Phone: [phone] Platelet countOrdered By: Mary Morrison on 06-26-2024 Platelets (Bld) [#/Vol] 324 10*3/uL 150-450 [facility] Potassium measurementOrdered By: Dajuan Morrison on 06-26-2024 Potassium [Moles/Vol] 3.8 mmol/L 3.5-5.1 [facility] RBC Auto (Bld) [#/Vol]Ordere d By: Dajuan Morrison on 06-26-2024 RBC (Bld) [#/Vol] 4.89 10*6/uL 4.6-6.2 [facility] Serum anion gap measurementO rdered By: Dajuan Morrison on 06-26-2024 Anion gap [Moles/Vol] 8 mmol/L 5-15 [facility] Serum globulin measurementOr dered By: Dajuan Morrison on 06-26-2024 Globulin (S) [Mass/Vol] 3.2 g/dL 2.2-4.2 [facility] Serum or plasma alanine rousseau otransferase (ALT) measurementOrdered By: Dajuan Morrison on 06-26-2024 ALT [Catalytic activity/Vol] 99 U/L High 16-61 [facility] Serum or plasma albumin ashlee urement (mass/volume)Ordered By: Dajuan Morrison on 06-26-2024 Albumin [Mass/Vol] 3.7 g/dL 3.2-5.0 [facility] Serum or plasma alkaline monica sphatase measurementOrdered By: Dajuan Morrison on 06-26-2024 ALP [Catalytic activity/Vol] 63 U/L 45-117 [facility] Serum or plasma calcium ashlee urement (mass/volume)Ordered By: Dajuan Morrison on 06-26-2024 Calcium [Mass/Vol] 9.4 mg/dL 8.5-10.1 [facility] Serum or plasma creatinine m easurement (mass/volume)Ordered By: Dajuan Morrison on 06-26-2024 Creatinine [Mass/Vol] 1.08 mg/dL 0.70-1.30 [facility] Comment on above: The validity of the calculated GFR & GFRAA in patients over 70 years has not been determined. Clinical correlation is essential. Serum or plasma oxcarbazepin e measurement (mass/volume)Ordered By: Dajuan Morrison on 06-26-2024 OXcarbazepine [Mass/Vol] 31 ug/mL 10-35 [facility] Comment on above: This test was develo ped and its performance characteristicsdetermined by [employer]. It has not been cleared orapproved by the Food and Drug Administration. Detection Limit = 1Performed at: [facility] [employer] [id number] Director: Andra Sawant MD, Phone: [phone] Serum or plasma urea nitroge n measurement (mass/volume)Ordered By: Dajuan Morrison on 06-26-2024 Urea nitrogen [Mass/Vol] 17 mg/dL 7-18 [facility] Sodium levelOrdered By: Cricket Morrison on 06-26-2024 Sodium [Moles/Vol] 138 mmol/L 136-145 [facility] Total proteinOrdered By: Juvenal Morrison on 06-26-2024 Protein [Mass/Vol] 6.9 g/dL 6.4-8.2 [facility] White blood cell (WBC) count Ordered By: Dajuan Morrison on 06-26-2024 WBC (Bld) [#/Vol] 9.2 10*3/uL 4.4-11.0 [facility] 36on 06-23-2024 36 Prescription Request : Last medication check: 10/24/2023 Last physical exam: 04/20/2024 Next scheduled appointment: 10/20/2024 Last date of refill on this medication: 06/04/23 36on 05-04-2024 36 Reviewed chart. Refi ll appropriate. RX sent. 36 [facility] requesting refill for Folic Acid 400mcg for 9 days w/1 refill. Prescription Request: Last medication check: 10/24/2023 Last physical exam: 04/20/2024 Next scheduled appointment: 10/20/2024 Last date of refill on this medication: 12/03/2023 36on 05-01-2024 36 Reviewed chart. Refi ll appropriate. RX sent. Normal [facility] 36 Prescription Request : Last medication check: 10/24/23 Last physical exam: 04/20/24 Next scheduled appointment: 10/20/24 Last date of refill on this medication 12/03/23 90 day 1 refill Office Visiton 04-20-2024 Follow-up visit [id number] Cb Burciaga 1980 M Date Provider Department Center 04/20/2024 [id number]-FIVHGERAMIRO [facility] Family History Family Status - Relation Status Age at Mother Father Alive Level of Service:07370 [place] PERIODIC PREVENTIVE MED EST PATIENT 40-64YRS Reason for Visit and Comments: Annual Exam [83] Blood Work [851670] Health Maintenance [872] - 4th covid vaccine- not done Normal [facility] Progress Noteon 04-20-2024 Progress Note Stable, continue Foster nase and Claritin. Normal [facility] Progress Note Stable, managed by luiz cole continue current medications Normal [facility] Progress Note Stable, no current problem Normal [facility] Progress Note controlled, continue a atorvastatin 40 mg daily and fenofibrate 145 mg daily Normal [facility] Progress Note Can roll, continue clonidine 0.2 mg, doxazosin 2 mg losartan 100 mg Normal [facility] Progress Note Stable, no sleep disability manager ea on sleep sleep study Normal [facility] Progress Note 04/20/2024 Chanwale Burciaga (: 1980) is a 43 y.o. [...] intellectual disability and he lives in a chcf. He has hypertension and his blood pressure [...] note. Ramiro Rosa MD 04/20/2024 12:50 PM Progress Note Patient verified by last name and date of . [place] [address] 04-17-2024 36 lm to pre-visit plan for appointment with dr Rosa on 04/20/24 11am. Please ask patient to arrive 15 minutes early with Photo ID, insurance card Fasting: yes Put call through to office for pvp [place] [address]on 04-06-2024 36 Reviewed chart. Refi ll appropriate. RX sent. 36 Prescription Request : Last medication check: 10/24/2023 Last physical exam: 04/18/2023 Next scheduled appointment: 04/20/2024 Last date of refill on this medication: 11/12/2023 [place] [address] 03-20-2024 36 Notified on angela luo. [place] [address] Will follow patient. Thank you. [place] [address] Name of caller: Brad Contact phone number: [phone] Relationship to Patient: [facility] Provider: Dr. Rosa Practice: [facility] [...] hours to return their call: Yes Normal [facility] CBC W/Diff, Automatedon 10- Absolute Lymph 1.76 X10 3/uL Normal 0.83-4.51 [facility] Comment on above: Performed By: #### L 100.0100, L500.4050 #### [facility] [address] [place], [address] Absolute Neut 9.0 X10 3/uL High 2.0-7.7 [facility] Comment on above: Performed By: #### L 100.0100, L500.4050 #### [facility] [address] [place], [address] Basophils/100 WBC (Bld) 0.5 % Normal 0-1 [facility] Comment on above: Performed By: #### L 100.0100, L500.4050 #### [facility] [address] [place], [address] Eosinophils/100 WBC (Bld) 4.6 % Normal 0-5 [facility] Comment on above: Performed By: #### L 100.0100, L500.4050 #### [facility] [address] [place], [address] Erythrocyte distribution width (RBC) [Ratio] 13.4 % Normal 11.6-14.6 [facility] Comment on above: Performed By: #### L 100.0100, L500.4050 #### [facility] [address] [place], [address] Hematocrit (Bld) [Volume fraction] 42.4 % Normal 40-54 [facility] Comment on above: Performed By: #### L 100.0100, L500.4050 #### [facility] [address] [place], [address] Hemoglobin (Bld) [Mass/Vol] 14.0 g/dL Normal 13.0-16.5 [facility] Comment on above: Performed By: #### L 100.0100, L500.4050 #### [facility] [address] [place], [address] IG% 0.600 Normal 0.0-0.9 [facility] Comment on above: Result Comment: IG% - Immature Granulocytes (promyelocytes, myelocytes and metamyelocytes) > 1% indicates that a LEFT SHIFT is Present. Performed By: #### L 100.0100, L500.4050 #### [facility] [address] [place], [address] Lymphocytes/100 WBC (Bld) 14.8 % Low 19-41 [facility] Comment on above: Performed By: #### L 100.0100, L500.4050 #### [facility] [address] [place], [address] MCH (RBC) [Entitic mass] 29.1 pg Normal 27.0-32.0 [facility] Comment on above: Performed By: #### L 100.0100, L500.4050 #### [facility] [address] [place], [address] MCHC (RBC) [Mass/Vol] 33.0 g/dL Normal 32-36 [facility] Comment on above: Performed By: #### L 100.0100, L500.4050 #### [facility] [address] [place], [address] MCV (RBC) [Entitic vol] 88.1 fL Normal 80-94 [facility] Comment on above: Performed By: #### L 100.0100, L500.4050 #### [facility] [address] [place], [address] Monocytes/100 WBC (Bld) 3.4 % Normal 0-10 [facility] Comment on above: Performed By: #### L 100.0100, L500.4050 #### [facility] [address] [place], [address] Neutrophils/100 WBC (Bld) 76.1 % High 47-70 [facility] Comment on above: Performed By: #### L 100.0100, L500.4050 #### [facility] [address] [place], [address] Nucleated RBC (Bld) [#/Vol] 0 10*3/uL Normal 0-5 [facility] Comment on above: Performed By: #### L 100.0100, L500.4050 #### [facility] [address] [place], [address] Platelet mean volume (Bld) [Entitic vol] 9.2 fL Normal 6.2-12.0 [facility] Comment on above: Performed By: #### L 100.0100, L500.4050 #### [facility] [address] [place], [address] Platelets (Bld) [#/Vol] 344 10*3/uL Normal 150-450 [facility] Comment on above: Performed By: #### L 100.0100, L500.4050 #### [facility] [address] [place], [address] RBC (Bld) [#/Vol] 4.81 10*6/uL Normal 4.6-6.2 [facility] Comment on above: Performed By: #### L 100.0100, L500.4050 #### [facility] [address] [place], [address] RDW SD 43.2 fl Normal 35.1-43.9 [facility] Comment on above: Performed By: #### L 100.0100, L500.4050 #### [facility] [address] [place], [address] WBC (Bld) [#/Vol] 11.9 10*3/uL High 4.4-11.0 [facility] Comment on above: Performed By: #### L 100.0100, L500.4050 #### [facility] [address] [place], [address] Comprehensive Metabolic Prof ilon 02-14-2024 Albumin [Mass/Vol] 3.9 g/dL Normal 3.2-5.0 [facility] Comment on above: Performed By: #### L 100.0100, L500.4050 #### [facility] [facility] [address] [place], [address] Albumin/Globulin [Mass ratio] 1.4 {ratio} Normal 0.9-2.4 [facility] Comment on above: Performed By: #### L 100.0100, L500.4050 #### [facility] [address] [place], [address] ALK P 71 U/L Normal 45-117 [facility] Comment on above: Performed By: #### L 100.0100, L500.4050 #### [facility] [address] [place], [address] ALT [Catalytic activity/Vol] 121 U/L High 16-61 [facility] Comment on above: Performed By: #### L 100.0100, L500.4050 #### [facility] [address] [place], [address] AST [Catalytic activity/Vol] 53 U/L High 15-37 [facility] Comment on above: Performed By: #### L 100.0100, L500.4050 #### [facility] [address] [place], [address] Bilirubin [Mass/Vol] 0.50 mg/dL Normal 0.20-1.00 [facility] Comment on above: Result Comment: For patients on eltrombopag therapy, use of Dimension Dowling TBIL is not recommended. Performed By: #### L 100.0100, L500.4050 #### [facility] [address] [place], [address] BUN/CRE 13.8 RATIO Normal 10-20 [facility] Comment on above: Performed By: #### L 100.0100, L500.4050 #### [facility] [address] [place], [address] CA,Total 10.0 mg/dL Normal 8.5-10.1 [facility] Comment on above: Performed By: #### L 100.0100, L500.4050 #### [facility] [address] [place], [address] Chloride [Moles/Vol] 103 mmol/L Normal 98-107 [facility] Comment on above: Performed By: #### L 100.0100, L500.4050 #### [facility] [address] [place], [address] CO2 [Moles/Vol] 25.0 mmol/L Normal 21.0-32.0 [facility] Comment on above: Performed By: #### L 100.0100, L500.4050 #### [facility] [address] [place], [address] Creatinine [Mass/Vol] 1.30 mg/dL Normal 0.70-1.30 [facility] Comment on above: Result Comment: The validity of the calculated GFR GFRAA in patients over 70 years has not been determined. Clinical correlation is essential. Performed By: #### L 100.0100, L500.4050 #### [facility] [address] [place], [address] EST GFR - AA 77 mL/min Normal >60 [facility] Comment on above: Result Comment: Afri can [place] GFR Calc Performed By: #### L 100.0100, L500.4050 #### [facility] [address] [place], [address] GAP 8 Normal 5-15 [facility] Comment on above: Performed By: #### L 100.0100, L500.4050 #### [facility] [address] [place], [address] GFR/1.73 sq M.predicted among non-blacks MDRD (S/P/Bld) [Vol rate/Area] 63 mL/min/{1.73_m2} Normal >60 [facility] Comment on above: Result Comment: Non- GFR Calc Performed By: #### L 100.0100, L500.4050 #### [facility] [address] [place], [address] Globulin (S) [Mass/Vol] 2.7 g/dL Normal 2.2-4.2 [facility] Comment on above: Performed By: #### L 100.0100, L500.4050 #### [facility] [address] [place], [address] Glucose [Mass/Vol] 164 mg/dL High 74-106 [facility] Comment on above: Result Comment: Fast ing Glucose result greater than or equal to 126 mg/dL suggests DIABETES MELLITUS per A.D.A. criteria. Performed By: #### L 100.0100, L500.4050 #### [facility] [address] [place], [address] Potassium [Moles/Vol] 3.9 mmol/L Normal 3.5-5.1 [facility] Comment on above: Performed By: #### L 100.0100, L500.4050 #### [facility] [address] [place], [address] Sodium [Moles/Vol] 136 mmol/L Normal 136-145 [facility] Comment on above: Performed By: #### L 100.0100, L500.4050 #### [facility] [address] [place], [address] T PROT 6.6 g/dL Normal 6.4-8.2 [facility] Comment on above: Performed By: #### L 100.0100, L500.4050 #### [facility] [address] [place], [address] Urea nitrogen [Mass/Vol] 18 mg/dL Normal 7-18 [facility] Comment on above: Performed By: #### L 100.0100, L500.4050 #### [facility] [address] [place], [address] 36on 02-03-2024 36 Pharmacy requesting refill. Prescription Request: Last medication check: 10/24/2023 Last physical exam: 04/18/2023 Next scheduled appointment: 04/20/2024 Last date of refill on this medication: 03/29/2023 36on 01-24-2024 36 Yes, thank you 36 Name of caller: Brad Contact phone number: [phone] Relationship to Patient: [facility] Provider: Dr Rosa Practice: [facility] Chief Complaint/Reason for Call: Caller stated that there are no changes with patient. Caller is asking if Dr Rosa will continue to follow patient for nursing and plan of care. Best time of day caller can be reached: any Patient advised that office/PCP has 24-48 business hours to return their call: No 36on 01-17-2024 36 Message released to patient as written. YANNICK Deal CNP 01/16/2024 9:02 PM EDT Home sleep study demonstrates no sleep related disorder- no sleep apnea detected. Patient's further questions if applicable: Iesha, patient's caregiver voiced understanding, no further questions or concerns at this time. Were all questions from office addressed or relayed to the patient from encounter: Yes Home sleep teston 01-16-2024 [facility] 36on 12-19-2023 36 Prescription Request : Last medication check: 10/24/23 Last physical exam: 04/18/23 Next scheduled appointment: 04/20/24 Last date of refill on this medication 06/07/23 Normal [facility] CD3 (initial)on 12-19-2023 CD3 (initial) ------- Patient Age/Sex Location Account Attending Physician CHAN BURCIAGA/M EN [id number] Michael Laguerre DO Specimen: [id number] Received: 12/20/23 Status: HUSSEIN Pressley Num: [id number] Spec Type: IMMUNO Subm Dr: Michael Friend, PHYSICIAN INSTITUTION [place] [id number] SPECIMEN INFORMATION: Tissue Source: Terminal ileum biopsy Clinical Info: Encounter for screening for malignant neoplasm of colon Specimen Number: [id number] CPT code: 96187,02672u3 METHODOLOGY: Deparaffinized sections of prefer/formalin-fixed tissue or [...] developed and their performance characteristics determined by [facility]. They may not have been cleared or approved by the U.S. Food and Drug Administration. The FDA has determined that such clearance or approval is not necessary. The above immunohistochemical/dualISH markers are ordered and reviewed by the Pathologist. INTERPRETATION: Terminal ileum, biopsy: Polytypic lymphoid aggregates. AM/mr 12/23/2023 Signed (signature on file) Dr. Huy Pollock, 12/23/23 1536 Normal [facility] Comment on above: Performed By: #### P CD3 #### [facility] [address] [place], [address] Colonoscopy Reporton 024 Colonoscopy Report [facility] Medical Records Department [address] [place] [address] Colonoscopy Report MR#: [id number] Acct: [id number] Name: CHAN BURCIAGA Rep #: [id number] : 1980 43 From: Michael Laguerre DO PCP: Dr. Ramiro Rosa MD Status:REG [facility] Patient Name: Chan Burciaga Procedure Date: 12/19/2023 [...] pathology results. Procedure Code(s): --- Professional --- 72147, Colonoscopy, flexible; with biopsy, single or multiple CPT copyright 2021 [employer]. All rights reserved. The codes documented in this report are preliminary and upon airline lounge receptionist review may be revised to meet current compliance requirements. Michael Laguerre DO 12/19/2023 10:32:20 AM This report has been signed electronically. Number of Addenda: 0 Note Initiated On: 12/19/2023 10:03 AM 12/19/23 1032 Date Michael Laguerre DO Cosigner Signature: Date (if indicated) CC: Dr. Ramiro Rosa MD; Michael Laguerre DO Date Dictated: 12/19/23 1003 Date Transcribed: Electronic Equipment Maint Tech: RF Signed [facility] MR/POSTOP.[facility] 12-19-2023 MR/POSTOP.[facility] Medical Records Department [address] [place] [address] Anesthesia Postop Eval I 12/19/23 1036 MR#: [id number] Acct: [id number] Name: CHAN BURCIAGA Rep #: [id number] : 1980 43 From: Esvin Awan PCP: Dr. Ramiro Rosa MD Status:REG SDC Y Race: C Location: [place] [address] Anesthesia: Postop Eval I Current Vital Signs [...] 1 completed: Yes 12/19/23 1037 Date Esvin Goodemargaretjd Signature: Date CC: Signed Normal [facility] MR/[id number] 12-19-2023 MR/POSTOPAN2 [facility] Medical Records Department [address] [place] [address] Anesthesia Postop Eval II 12/19/23 1051 MR#: [id number] Acct: [id number] Name: CHAN BURCIAGA Rep #: [id number] : 1980 43 From: Harman Conrad MD PCP: Dr. Ramiro Rosa MD Status:REG [facility] Y Race: C Location: [place] [address] Anesthesia Postop Eval I Sum Postop Eval [...] No Vomiting: No 12/19/23 1051 Date Harman Regalado Signature: Date CC: Signed Normal [facility] Surgery Specimen Level Zhou 12-19-2023 Surgery Specimen Level IV Patient Age/Sex Location Account Attending Physician CHAN BURCIAGA/M EN [id number] Michael Laguerre DO Specimen: [id number] Received: 12/19/23 Status: HUSSEIN Pressley Num: [id number] Spec Type: COLON BX Subm Dr: Michael [...] Benign lymphoid aggregates are also present. Immunohistochemistry ([id number]) supports the above diagnosis and reveals polytypic [...] submitted in one cassette. BARNEY. 12/19/2023 TC:2 CPT:40363 Patient Age/Sex Location Account Attending Physician CHAN BURCIAGA 43/M EN [id number] Michael Shade, DO Signed (signature on file) Dr. Huy Pollock DO 12/23/23 1218 Normal [facility] Comment on above: Performed By: #### P SUIV ####[facility] [address] [place], [address] 36on 12-03-2023 36 Reviewed chart. Refi ll appropriate. RX sent. [place] [address] Prescription Request : Last medication check: 10/24/23 Last physical exam: 04/18/23 Next scheduled appointment: 01/09/24 Last date of refill on this medication 06/26/23 36on 11-21-2023 36 Notified on angela luo. [place] [address] Yes, recertification would be appropriate [place] [address] Name of caller: Brad Contact phone number: [phone] Relationship to Patient: [facility] Provider: Dr. Rosa Practice: [facility] Chief Complaint/Reason for Call: Brad is requesting confirmation, of medical recertification for residential. Please advise. Best time of day caller can be reached: any Patient advised that office/PCP has 24-48 business hours to return their call: Yes 36on 11-12-2023 36 Prescription Request : Last medication check: 10/24/23 Last physical exam: 04/18/23 Next scheduled appointment: 04/20/24 Last date of refill on this medication 06/04/23 Office Visiton 10-24-2023 Follow-up visit [id number] GualbertoCb awmitul 1980 M Date Provider Department Center 10/24/2023 [id number]-[id number] [facility]A [facility] Family History Family Status - Relation Status Age at Mother Father Alive Level of Service:73224 [place] OFFICE/OUTPATIENT ESTABLISHED MOD MDM 30 MIN Reason for Visit and Comments: Hypertension [078009] Hyperlipidemia [182] Depression [32] Medication Check [0676339497] - 6 month Health Maintenance [872] - Hiv/hep c screening- refuse Hep b vaccine- advised to go to pharmacy if wanting this Tdap vaccine-advised to go to pharmacy if wanting this Colonoscopy- agree Progress Noteon 10-24-2023 Progress Note Stable, continue Cla ritin and Flonase. Normal [facility] Progress Note Remission, continue Seroquel 150 mg nightly Normal [facility] Progress Note Controlled, continue atorvastatin 40 mg daily and fenofibrate 100 mg daily Normal [facility] Progress Note Controlled, continue doxazosin 2 mg, clonidine 0.2 mg twice a day and losartan 100 mg daily Normal [facility] Progress Note Order home sleep study. Normal [facility] Progress Note Witnessed apneic epi sodes, will schedule patient for home sleep study. Normal [facility] Progress Note 10/24/2023 Chan Burciaga (: 1980) [...] (around 04/24/2024) for annual. SUBJECTIVE/OBJECTIVE: MIGUEL ÁNGEL MirandaChan comes in today for 6-month follow-up on his multiple health issues which include hypertension which is well-controlled today, hyperlipidemia, depression which is in full remission seasonal allergies and his grounds caretaker that is with him said they were [...] note. Ramiro Rosa MD 10/24/2023 11:50 AM Progress Note Patient verified by last name and date of . 36on 10-23-2023 36 Left a message to re turn call to [facility] for appointment with Dr. Rosa on 10/24/23. If the patient calls back during business hours, please transfer to our backline. Otherwise, Please arrive 15 minutes early with your insurance card and photo ID. Thank you! Culture, urineOrdered By: St heri Miles on 05-29-2023 Bacteria identified Cx Nom (U) [place] odontolyticus [facility] - Chemistry and C hemistry - challengeon 05-29-2023 Bilirubin Ql (U) Small (1+) [facility] Glucose Ql (U) Negative [facility] Ketones Ql (U) Negative [facility] pH (U) 7.5 [pH] [facility] Specific gravity (U) [Rel density] 1.010 [facility] Urobilinogen (U) [Mass/Vol] 0.0120158 mg/dL [facility] - Hematology and Cell countson 05-29-2023 Hemoglobin Ql (U) Hemolyzed [facility] - Specimen inform ationon 05-29-2023 Clarity (U) Slightly Hazy [facility] Color (U) Dk Yellow [facility] - Urinalysison Nitrite Ql (U) Negative [facility] Protein Ql (U) Trace [facility] No Panel Informationon 05-29 Urine Leukocytes Positive [facility] Urine Non-Hemolyzed Blood Large [facility] XR Lumbar spine 4 Viewson Mild to moderate mul tilevel degenerative changes. Probable bilateral renal calculi measuring up to 1 cm. Further evaluation with renal ultrasound is recommended. Report Dictated on Electronically Signed By: Isidro Lara Electronically Signed Date/Time: 08/27/2022 4:16 PM EDT [facility] [employer] [facility] Patient Name: CHAN CONNELL : 1980 [...] bilateral kidneys measuring up to 1 cm. [facility] Isidro Lara MD - 08/27/2022 Patient [...] Electronically Signed Date/Time: 08/27/2022 4:16 PM EDT [facility] Study observation (narrative) [facility] XR Lumbar spine 4 ViewsOrder ed By: Isidro Lara on 08-27-2022 [facility] Work Phone: [id number] percentageOrdered B y: Dr. Borden on 08-09-2022 Bilirubin [Mass/Vol] 0.40 mg/dL 0.20-1.00 [facility] Comment on above: For patients on eltr ombopag therapy, use of Dimension Dowling TBIL is not recommended. Chloride [Moles/Vol] 105 mmol/L 98-107 [facility] Cholesterol [Mass/Vol] 151 mg/dL <200 [facility] Comment on above: <200 mg/dL Desirable 200-240 mg/dL Borderline >240 mg/dL High Risk Glucose [Mass/Vol] 91 mg/dL 74-106 [facility] Potassium [Moles/Vol] 3.9 mmol/L 3.5-5.1 [facility] Protein [Mass/Vol] 7.3 g/dL 6.4-8.2 [facility] Sodium [Moles/Vol] 136 mmol/L 136-145 [facility] Triglyceride [Mass/Vol] 142 mg/dL <199 [facility] Comment on above: The drugs N-Acetylcy steine and Metamizole may falsely depress this assay.Serum Triglycerides Reference Interval Normal <150 mg/dL Borderline high 150 - 199 mg/dL High 200 - 499 mg/dL Very High > or = 500 mg/dL Laboratory - Chemistry and C hemistry - challengeOrdered By: Dr. Borden on 08-09-2022 ALP [Catalytic activity/Vol] 56 U/L 45-117 [facility] ALT [Catalytic activity/Vol] 138 U/L 16-61 [facility] CO2 [Moles/Vol] 26.0 mmol/L 21.0-32.0 [facility] Globulin (S) [Mass/Vol] 3.2 g/dL 2.2-4.2 [facility] Urea nitrogen/Creatinine [Mass ratio] 11.7 mg/mg 10-20 [facility] No Panel InformationOrdered By: Dr. Borden on 08-09-2022 Estimated GFR (MDRD) Amer 93 mL/min >60 [facility] Comment on above: GFR Calc Estimated GFR (MDRD) Non-Af Amer 77 mL/min >60 [facility] Comment on above: Non- GFR Calc Serum or plasma albumin ashlee urement (mass/volume)Ordered By: Dr. Borden on 08-09-2022 Albumin [Mass/Vol] 4.1 g/dL 3.2-5.0 [facility] Serum or plasma albumin/glob ulin mass ratioOrdered By: Dr. Borden on 08-09-2022 Albumin/Globulin [Mass ratio] 1.3 {ratio} 0.9-2.4 [facility] Serum or plasma calcium ashlee urement (mass/volume)Ordered By: Dr. Borden on 08-09-2022 Calcium [Mass/Vol] 10.0 mg/dL 8.5-10.1 [facility] Serum or plasma cholesterol in HDL measurement (mass/volume)Ordered By: Dr. Borden on 08-09-2022 Cholesterol in HDL [Mass/Vol] 42 mg/dL >40 [facility] Comment on above: The drugs N-Acetylcy steine and Metamizole may falsely depress this assay. Reference Range HDL <40 mg/dL Low HDL Cholesterol HDL >or= 60 mg/dL High HDL Cholesterol Serum or plasma cholesterol in VLDL measurement (mass/volume)Ordered By: Dr. Borden on 08-09-2022 Cholesterol in VLDL [Mass/Vol] 28 mg/dL 5-40 [facility] Serum or plasma creatinine m easurement (mass/volume)Ordered By: Dr. Borden on 08-09-2022 Creatinine [Mass/Vol] 1.11 mg/dL 0.70-1.30 [facility] Comment on above: The validity of the calculated GFR & GFRAA in patients over 70 years has not been determined. Clinical correlation is essential. Serum or plasma low density lipoprotein (LDL) cholesterol measurement (mass/volume)Ordered By: Dr. Borden on 08-09-2022 Cholesterol in LDL [Mass/Vol] 81 mg/dL 0-130 [facility] Serum or plasma urea nitroge n measurement (mass/volume)Ordered By: Dr. Borden on 08-09-2022 Urea nitrogen [Mass/Vol] 13 mg/dL 7-18 [facility] Thin prep Papanicolaou smear with manual screeningOrdered By: Dr. Borden on 08-09-2022 Thin prep Papanicolaou smear with manual screening 63 U/L 15-37 [facility] Thin prep Papanicolaou smear with manual screening 5 5-15 [facility] Whole blood hemoglobin A1c/t otal hemoglobin ratio (mass fraction)Ordered By: Dr. Borden on 08-09-2022 HbA1c (Bld) [Mass fraction] 5.4 % 3.8-5.6 [facility] Comment on above: Normal < 5.7 % Predi abetic 5.7 - 6.4 % Diabetic >or= 6.5 % Please note range changes. Basophil percentageon 2021 Bilirubin [Mass/Vol] 0.30 mg/dL 0.20-1.00 [facility] Work Phone: Comment on above: For patients on eltr ombopag therapy, use of Dimension [place] TBIL is not recommended. Chloride [Moles/Vol] 108 mmol/L 98-107 [facility] Work Phone: Cholesterol [Mass/Vol] 199 mg/dL <200 [facility] Work Phone: Comment on above: <200 mg/dL Desirable 200-240 mg/dL Borderline >240 mg/dL High Risk Glucose [Mass/Vol] 113 mg/dL 74-106 [facility] Work Phone: Comment on above: Fasting Glucose resu lt from 100 to 125 mg/dL suggests IMPAIRED HOMEOSTASIS per A.D.A. criteria. Potassium [Moles/Vol] 3.7 mmol/L 3.5-5.1 [facility] Work Phone: Protein [Mass/Vol] 7.4 g/dL 6.4-8.2 [facility] Work Phone: Sodium [Moles/Vol] 140 mmol/L 136-145 [facility] Work Phone: Triglyceride [Mass/Vol] 239 mg/dL <199 [facility] Work Phone: Comment on above: The drugs N-Acetylcy steine and Metamizole may falsely depress this assay.Serum Triglycerides Reference Interval Normal <150 mg/dL Borderline high 150 - 199 mg/dL High 200 - 499 mg/dL Very High > or = 500 mg/dL WBC (Bld) [#/Vol] 9.8 10*3/uL 4.4-11.0 [facility] Work Phone: Blood erythrocytes count (nu mber/volume)on 02-23-2022 RBC (Bld) [#/Vol] 5.30 10*6/uL 4.6-6.2 [facility] Work Phone: Blood hemoglobin measurement (mass/volume)on 02-23-2022 Hemoglobin (Bld) [Mass/Vol] 15.4 g/dL 13.0-16.5 [facility] Work Phone: Blood platelet mean volumeon 02-23-2022 Platelet mean volume (Bld) [Entitic vol] 9.4 fL 6.2-12.0 [facility] Work Phone: Determination of erythrocyte mean corpuscular volume (MCV)on 02-23-2022 MCV (RBC) [Entitic vol] 86.4 fL 80-94 [facility] Work Phone: Hematocrit Auto (Bld) [Volum e fraction]on 02-23-2022 Hematocrit (Bld) [Volume fraction] 45.8 % 40-54 [facility] Work Phone: Laboratory - Chemistry and C hemistry - challengeon 02-23-2022 ALP [Catalytic activity/Vol] 72 U/L 45-117 [facility] Work Phone: ALT [Catalytic activity/Vol] 120 U/L 16-61 [facility] Work Phone: CO2 [Moles/Vol] 24.0 mmol/L 21.0-32.0 [facility] Work Phone: Globulin (S) [Mass/Vol] 3.4 g/dL 2.2-4.2 [facility] Work Phone: Urea nitrogen/Creatinine [Mass ratio] 9.9 mg/mg 10-20 [facility] Work Phone: Laboratory - Hematology and Cell countson 02-23-2022 Erythrocyte distribution width (RBC) [Entitic vol] 42.0 fL 35.1-43.9 [facility] Work Phone: Erythrocyte distribution width (RBC) [Ratio] 13.4 % 11.6-14.6 [facility] Work Phone: MCH (RBC) [Entitic mass] 29.1 pg 27.0-32.0 [facility] Work Phone: MCHC Auto (RBC) [Mass/Vol]on 02-23-2022 MCHC (RBC) [Mass/Vol] 33.6 g/dL 32-36 [facility] Work Phone: No Panel Informationon 02-23 Estimated GFR (MDRD) Amer 104 mL/min >60 [facility] Work Phone: Comment on above: GFR Calc Estimated GFR (MDRD) Non-Af Amer 86 mL/min >60 [facility] Work Phone: Comment on above: Non- GFR Calc Platelets bldon 02-23-2022 Platelets (Bld) [#/Vol] 382 10*3/uL 150-450 [facility] Work Phone: Serum or plasma albumin ashlee urement (mass/volume)on 02-23-2022 Albumin [Mass/Vol] 4.0 g/dL 3.2-5.0 [facility] Work Phone: Serum or plasma albumin/glob ulin mass ratioon 02-23-2022 Albumin/Globulin [Mass ratio] 1.2 {ratio} 0.9-2.4 [facility] Work Phone: Serum or plasma calcium ashlee urement (mass/volume)on 02-23-2022 Calcium [Mass/Vol] 9.5 mg/dL 8.5-10.1 [facility] Work Phone: Serum or plasma cholesterol in HDL measurement (mass/volume)on 02-23-2022 Cholesterol in HDL [Mass/Vol] 35 mg/dL >40 [facility] Work Phone: Comment on above: The drugs N-Acetylcy steine and Metamizole may falsely depress this assay. Reference Range HDL <40 mg/dL Low HDL Cholesterol HDL >or= 60 mg/dL High HDL Cholesterol Serum or plasma cholesterol in VLDL measurement (mass/volume)on 02-23-2022 Cholesterol in VLDL [Mass/Vol] 48 mg/dL 5-40 [facility] Work Phone: Serum or plasma creatinine m easurement (mass/volume)on 02-23-2022 Creatinine [Mass/Vol] 1.01 mg/dL 0.70-1.30 [facility] Work Phone: Comment on above: The validity of the calculated GFR & GFRAA in patients over 70 years has not been determined. Clinical correlation is essential. Serum or plasma low density lipoprotein (LDL) cholesterol measurement (mass/volume)on 02-23-2022 Cholesterol in LDL [Mass/Vol] 116 mg/dL 0-130 [facility] Work Phone: Serum or plasma oxcarbazepin e measurement (mass/volume)on 02-23-2022 OXcarbazepine [Mass/Vol] 22 ug/mL 10-35 [facility] Work Phone: Comment on above: This test was develo ped and its performance characteristicsdetermined by [employer]. It has not been cleared orapproved by the Food and Drug Administration. Detection Limit = 1Performed at: [facility] [place] [id number] [place], [place] [id number] Director: Andra Sawant MD, Phone: [phone] Serum or plasma urea nitroge n measurement (mass/volume)on 02-23-2022 Urea nitrogen [Mass/Vol] 10 mg/dL 7-18 [facility] Work Phone: Thin prep Papanicolaou smear with manual screeningon 02-23-2022 Thin prep Papanicolaou smear with manual screening 53 U/L 15- [facility] Work Phone: Thin prep Papanicolaou smear with manual screening 8 5-15 [facility] Work Phone: Whole blood hemoglobin A1c/t otal hemoglobin ratio (mass fraction)on 02-23-2022 HbA1c (Bld) [Mass fraction] 5.8 % 3.8-5.6 [facility] Work Phone: Comment on above: Normal < 5.7 % Predi abetic 5.7 - 6.4 % Diabetic >or= 6.5 % Please note range changes. No Panel Informationon 02-19 POC SARS CoV-2 Antigen Negative [facility] Work Phone: No Panel Informationon 02-09 POC SARS CoV-2 Antigen Positive [facility] Work Phone: Vital Signs Date Time Vital Sign Value Performing Clinician Facility 10-15-2024 11:44-0400 Body height 165.1 cm Ramiro Rosa MD Work Phone: [facility] 10-15-2024 11:44-0400 Body mass index (BMI) [Ratio] 31.62 kg/m2 Ramiro Rosa MD Work Phone: [facility] 10-15-2024 11:44-0400 Body weight 86.18 kg Ramiro Rosa MD Work Phone: [facility] 10-15-2024 11:44-0400 Diastolic blood pressure 81 mm[Hg] Ramiro Rosa MD Work Phone: [facility] 10-15-2024 11:44-0400 Heart rate 95 /min Ramiro Rosa MD Work Phone: [facility] 10-15-2024 11:44-0400 SaO2% (BldA) [Mass fraction] 95 % Ramiro Rosa MD Work Phone: [facility] 10-15-2024 11:44-0400 Systolic blood pressure 120 mm[Hg] Ramiro Rosa MD Work Phone: [facility] 10-09-2024 13:56-0400 SaO2% (BldA) [Mass fraction] 95 % Dr. Ramiro Rosa MD Work Phone: [facility] 10-09-2024 13:32-0400 Body temperature 98.1 [degF] Dr. Ramiro Rosa MD Work Phone: [phone](645)[phone] [place] [address] 10-09-2024 13:32-0400 Diastolic blood pressure 87 mm[Hg] Dr. Ramiro Rosa MD Work Phone: [phone])[phone] [place] [address] 10-09-2024 13:32-0400 Heart rate 80 /min Dr. Ramiro Rosa MD Work Phone: [facility] 10-09-2024 13:32-0400 Respiratory rate 16 /min Dr. Ramiro Rosa MD Work Phone: [facility] 10-09-2024 13:32-0400 Systolic blood pressure 144 mm[Hg] Dr. Ramiro Rosa MD Work Phone: [facility] 10-09-2024 13:10-0400 Inhaled oxygen flow rate 2 L/min Dr. Ramiro Rosa MD Work Phone: [facility] 10-09-2024 10:19-0400 Body height [address] Ramiro Rosa MD Work Phone: [facility] 10-09-2024 10:19-0400 Body mass index (BMI) [Ratio] 31.6 kg/m2 Dr. Ramiro Rosa MD Work Phone: [facility] 10-09-2024 10:19-0400 Body weight [address] Ramiro Rosa MD Work Phone: [facility] 10-08-2024 19:56-0400 Body temperature 98 [degF] Dr. Ramiro Rosa MD Work Phone: [facility] 10-08-2024 19:56-0400 Diastolic blood pressure 90 mm[Hg] Dr. Ramiro Rosa MD Work Phone: [facility] 10-08-2024 19:56-0400 Heart rate 96 /min Dr. Ramiro Rosa MD Work Phone: [facility] 10-08-2024 19:56-0400 Respiratory rate 18 /min Dr. Ramiro Rosa MD Work Phone: [facility] 10-08-2024 19:56-0400 SaO2% (BldA) [Mass fraction] 97 % Dr. Ramiro Rosa MD Work Phone: [facility] 10-08-2024 19:56-0400 Systolic blood pressure 149 mm[Hg] Dr. Ramiro Rosa MD Work Phone: [facility] 10-08-2024 16:53-0400 Body height 167.[address] Ramiro Rosa MD Work Phone: [facility] 10-08-2024 16:53-0400 Body mass index (BMI) [Ratio] 30.5 kg/m2 Dr. Ramiro Rosa MD Work Phone: [facility] 10-08-2024 16:53-0400 Body weight 85.[address] Ramiro Rosa MD Work Phone: [facility] 10-08-2024 16:16-0400 Body temperature 97 [degF] Zach Cardenas MD Work Phone: [facility] 10-08-2024 16:16-0400 Body weight 85 kg Zach Cardenas MD Work Phone: [facility] 10-08-2024 16:16-0400 Diastolic blood pressure 88 mm[Hg] Zach Cardenas MD Work Phone: [facility] 10-08-2024 16:16-0400 Heart rate 97 /min Zach Cardenas MD Work Phone: [facility] 10-08-2024 16:16-0400 Respiratory rate 20 /min Zach Cardenas MD Work Phone: [facility] 10-08-2024 16:16-0400 SaO2% (BldA) [Mass fraction] 95 % Zach Cardenas MD Work Phone: [facility] 10-08-2024 16:16-0400 Systolic blood pressure 134 mm[Hg] Zach Cardenas MD Work Phone: [facility] 09-27-2024 09:54-0400 Body temperature 97.11 [degF] Sean Pendlebury COMPONENTS ENGINEER.TIP BANDER Work Phone: [facility] 09-27-2024 09:54-0400 Body weight 86.2 kg Sean Penddevin COMPONENTS ENGINEER.TIP BANDER Work Phone: [facility] 09-27-2024 09:54-0400 Diastolic blood pressure 66 mm[Hg] Sean Pendlebury COMPONENTS ENGINEER.TIP BANDER Work Phone: [facility] 09-27-2024 09:54-0400 Heart rate 96 /min Sean Pendlebury COMPONENTS ENGINEER.TIP B[employer]ER Work Phone: [facility] 09-27-2024 09:54-0400 SaO2% (BldA) [Mass fraction] 96 % Sean Pendlebury COMPONENTS ENGINEER.TIP BANDER Work Phone: [facility] 09-27-2024 09:54-0400 Systolic blood pressure 110 mm[Hg] Sean Pendlebury COMPONENTS ENGINEER.TIP BANDER Work Phone: [facility] 04-20-2024 11:04-0500 Body height 166.4 cm Ramiro Rosa MD Work Phone: [employer] 04-20-2024 11:04-0500 Body mass index (BMI) [Ratio] 31.27 kg/m2 Ramiro Rosa MD Work Phone: [employer] 04-20-2024 11:04-0500 Body weight 86.55 kg Ramiro Rosa MD Work Phone: [facility] [employer] 04-20-2024 11:04-0500 Diastolic blood pressure 74 mm[Hg] Ramiro Rosa MD Work Phone: [employer] 04-20-2024 11:04-0500 Heart rate 73 /min Ramiro Rosa MD Work Phone: [employer] 04-20-2024 11:04-0500 SaO2% (BldA) [Mass fraction] 94 % Ramiro Rosa MD Work Phone: [facility] [employer] 04-20-2024 11:04-0500 Systolic blood pressure 117 mm[Hg] Ramiro Rosa MD Work Phone: [employer] 10-24-2023 09:29-0400 Body height 166.4 cm Ramiro Rosa MD Work Phone: [employer] 10-24-2023 09:29-0400 Body mass index (BMI) [Ratio] 30.09 kg/m2 Ramiro Rosa MD Work Phone: [employer] 10-24-2023 09:29-0400 Body weight 83.28 kg Ramiro Rosa MD Work Phone: [employer] 10-24-2023 09:29-0400 Diastolic blood pressure 76 mm[Hg] Ramiro Rosa MD Work Phone: [employer] 10-24-2023 09:29-0400 Heart rate 66 /min Ramiro Rosa MD Work Phone: [employer] 10-24-2023 09:29-0400 SaO2% (BldA) [Mass fraction] 95 % Ramiro Rosa MD Work Phone: [facility] 10-24-2023 09:29-0400 Systolic blood pressure 115 mm[Hg] Ramiro Rosa MD Work Phone: [facility] 09-27-2023 11:13-0400 Body height 166.4 cm Ramiro Rosa MD Work Phone: [facility] 09-27-2023 11:13-0400 Body mass index (BMI) [Ratio] 29.6 kg/m2 Ramiro Rosa MD Work Phone: [facility] 09-27-2023 11:13-0400 Body weight 81.92 kg Ramiro Rosa MD Work Phone: [facility] 09-27-2023 11:13-0400 Diastolic blood pressure 81 mm[Hg] Ramiro Rosa MD Work Phone: [facility] 09-27-2023 11:13-0400 Heart rate 82 /min Ramiro Rosa MD Work Phone: [facility] 09-27-2023 11:13-0400 SaO2% (BldA) [Mass fraction] 95 % Ramiro Rosa MD Work Phone: [facility] 09-27-2023 11:13-0400 Systolic blood pressure 122 mm[Hg] Ramiro Rosa MD Work Phone: [facility] 05-29-2023 10:14-0500 Body temperature 98.2 [degF] Dr. Ramiro Rosa Work Phone: [facility] 05-29-2023 10:14-0500 Diastolic blood pressure 74 mm[Hg] Dr. Ramiro Rosa Work Phone: [facility] 05-29-2023 10:14-0500 Heart rate 98 /min Dr. Ramiro Rosa Work Phone: [facility] 05-29-2023 10:14-0500 Respiratory rate 18 /min Dr. Ramiro Rosa Work Phone: [facility] 05-29-2023 10:14-0500 SaO2% (BldA) [Mass fraction] 97 % Dr. Ramiro Rosa Work Phone: [facility] 05-29-2023 10:14-0500 Systolic blood pressure 115 mm[Hg] Dr. Ramiro Rosa Work Phone: [facility] 04-18-2023 09:03-0500 Body height 166.4 cm Ramiro Rosa MD Work Phone: [facility] 04-18-2023 09:03-0500 Body mass index (BMI) [Ratio] 30.65 kg/m2 Ramiro Rosa MD Work Phone: [facility] 04-18-2023 09:03-0500 Body weight 84.82 kg Ramiro Rosa MD Work Phone: [facility] 04-18-2023 09:03-0500 Diastolic blood pressure 72 mm[Hg] Ramiro Rosa MD Work Phone: [facility] 04-18-2023 09:03-0500 Heart rate 79 /min Ramiro Rsoa MD Work Phone: [facility] 04-18-2023 09:03-0500 SaO2% (BldA) [Mass fraction] 94 % Ramiro Rosa MD Work Phone: [facility] 04-18-2023 09:03-0500 Systolic blood pressure 108 mm[Hg] Ramiro Rosa MD Work Phone: [facility] 02-18-2023 14:49-0400 Body temperature 98.01 [degF] Yulia Lujan COMPONENTS ENGINEER.[employer]IP BANDER Work Phone: [facility] 02-18-2023 14:49-0400 Body weight 84.19 kg Yulia Lujan COMPONENTS ENGINEER.TIP BANDER Work Phone: [facility] 02-18-2023 14:49-0400 Diastolic blood pressure 70 mm[Hg] Yulia Lujan COMPONENTS ENGINEER.TIP BANDER Work Phone: [facility] 02-18-2023 14:49-0400 Heart rate 98 /min Yulia Lujan COMPONENTS ENGINEER.[employer] B[employer]ER Work Phone: [facility] 02-18-2023 14:49-0400 Respiratory rate 16 /min Yulia Lujan COMPONENTS ENGINEER.TIP BANDER Work Phone: [facility] 02-18-2023 14:49-0400 SaO2% (BldA) [Mass fraction] 96 % Yulia Lujan COMPONENTS ENGINEER.TIP BANDER Work Phone: [facility] 02-18-2023 14:49-0400 Systolic blood pressure 124 mm[Hg] Yulia Lujan COMPONENTS ENGINEER.TIP BANDER Work Phone: [facility] 10-18-2022 14:23-0400 Body height 166.4 cm Ramiro Rosa MD Work Phone: [facility] [employer] 10-18-2022 14:23-0400 Body mass index (BMI) [Ratio] 30.15 kg/m2 Ramiro Rosa MD Work Phone: [facility] [employer] 10-18-2022 14:23-0400 Body weight 83.46 kg Ramiro Rosa MD Work Phone: [facility] [employer] 10-18-2022 14:23-0400 Diastolic blood pressure 84 mm[Hg] Ramiro Rosa MD Work Phone: [facility] [employer] 10-18-2022 14:23-0400 Heart rate 90 /min Ramiro Rsoa MD Work Phone: [facility] [employer] 10-18-2022 14:23-0400 SaO2% (BldA) [Mass fraction] 95 % Ramiro Rosa MD Work Phone: [facility] [employer] 10-18-2022 14:23-0400 Systolic blood pressure 125 mm[Hg] Ramiro Rosa MD Work Phone: [facility] [employer] 08-27-2022 09:43-0400 Body height 166.4 cm Ramiro Rosa MD Work Phone: [facility] 08-27-2022 09:43-0400 Body mass index (BMI) [Ratio] 29.53 kg/m2 Ramiro Rosa MD Work Phone: [facility] 08-27-2022 09:43-0400 Body weight 81.74 kg Ramiro Rosa MD Work Phone: [facility] 08-27-2022 09:43-0400 Diastolic blood pressure 62 mm[Hg] Ramiro Rosa MD Work Phone: [facility] 08-27-2022 09:43-0400 Heart rate 65 /min Ramiro Rosa MD Work Phone: [facility] 08-27-2022 09:43-0400 Systolic blood pressure 110 mm[Hg] Ramiro Rosa MD Work Phone: [facility] 04-17-2022 11:29-0500 Diastolic blood pressure 95 mm[Hg] Dr. Ramiro Rosa Work Phone: [facility] Work Phone: 04-17-2022 11:29-0500 Heart rate 67 /min Dr. Ramiro Rosa Work Phone: [facility] Work Phone: 04-17-2022 11:29-0500 Respiratory rate 16 /min Dr. Ramiro Rosa Work Phone: [facility] Work Phone: 04-17-2022 11:29-0500 SaO2% (BldA) [Mass fraction] 97 % Dr. Ramiro Rosa Work Phone: [facility] Work Phone: 04-17-2022 11:29-0500 Systolic blood pressure 166 mm[Hg] Dr. Ramiro Rosa Work Phone: [facility] Work Phone: 04-17-2022 09:39-0500 Body height 165.[address] Ramiro Rosa Work Phone: [facility] Work Phone: 04-17-2022 09:39-0500 Body mass index (BMI) [Ratio] 30.9 kg/m2 Dr. Ramiro Rosa Work Phone: [facility] Work Phone: 04-17-2022 09:39-0500 Body temperature 97.3 [degF] Dr. Ramrio Rosa Work Phone: [facility] Work Phone: 04-17-2022 09:39-0500 Body weight 84.[address] Ramiro Rosa Work Phone: [facility] Work Phone: 02-19-2022 10:12-0400 Body temperature 97.2 [degF] Dr. Ramiro Rosa Work Phone: [facility] Work Phone: 02-19-2022 10:12-0400 Diastolic blood pressure 88 mm[Hg] Dr. Ramiro Rosa Work Phone: [facility] Work Phone: 02-19-2022 10:12-0400 Heart rate 81 /min Dr. Ramiro Rosa Work Phone: [facility] Work Phone: 02-19-2022 10:12-0400 Respiratory rate 16 /min Dr. Ramiro Rosa Work Phone: [facility] Work Phone: 02-19-2022 10:12-0400 SaO2% (BldA) [Mass fraction] 97 % Dr. Ramiro Rosa Work Phone: [facility] Work Phone: 02-19-2022 10:12-0400 Systolic blood pressure 128 mm[Hg] Dr. Ramiro Rosa Work Phone: [facility] Work Phone: 02-09-2022 09:43-0400 Body height 165.[address] Ramiro Rosa Work Phone: [facility] Work Phone: 02-09-2022 09:43-0400 Body mass index (BMI) [Ratio] 29.2 kg/m2 Dr. Ramiro Rosa Work Phone: [facility] Work Phone: 02-09-2022 09:43-0400 Body temperature 97.5 [degF] Dr. Ramiro Rosa Work Phone: [facility] Work Phone: 02-09-2022 09:43-0400 Body weight 79.[address] Ramiro Rosa Work Phone: [facility] Work Phone: 02-09-2022 09:43-0400 Diastolic blood pressure 82 mm[Hg] Dr. Ramiro Rosa Work Phone: [facility] Work Phone: 02-09-2022 09:43-0400 Heart rate 101 /min Dr. Ramiro Rosa Work Phone: [facility] Work Phone: 02-09-2022 09:43-0400 Respiratory rate 17 /min Dr. Ramiro Rosa Work Phone: [facility] Work Phone: 02-09-2022 09:43-0400 SaO2% (BldA) [Mass fraction] 97 % Dr. Ramiro Rosa Work Phone: [facility] Work Phone: 02-09-2022 09:43-0400 Systolic blood pressure 120 mm[Hg] Dr. Ramiro Rosa Work Phone: [facility] Work Phone: Encounters Encounter Date Encounter Type Care Provider Facility Start: 10-23-2024 ambulatory [facility] Facility :[facility] Start: 10-15-2024 End: 10-15-2024 Office outpatient visit 25 minutes Ramiro Rosa MD Work Phone: [facility] Comment on above: Essential hypertensi on (Primary Dx); Calculus of kidney; Hyperlipidemia LDL goal <100; Recurrent major depressive disorder, in full remission (HCC) Start: 10-15-2024 End: 10-15-2024 ambulatory [facility] Start: 10-09-2024 Non-patient / Non-visit Dr. Odette Mares MD [facility] Work Phone: Start: 10-09-2024 End: 10-09-2024 ambulatory [facility] Facility:[facility] Start: 10-08-2024 End: 10-09-2024 ambulatory [facility] Facility:[facility] Start: 10-08-2024 End: 10-09-2024 Evaluation and management of inpatient Dr. Yamileth Aguirre MD -Medical Surgical 3 Work Phone: Start: 10-08-2024 End: 10-08-2024 Office outpatient visit 25 minutes Zach Cardenas MD Work Phone: [facility] Comment on above: Midline low back taurus n, unspecified chronicity, unspecified whether sciatica present (Primary Dx); Abdominal pain, unspecified abdominal location; Microscopic hematuria; History of kidney stones Start: 10-08-2024 End: 10-08-2024 ambulatory RAMIRO ROSA Facility:[facility] Start: 10-02-2024 End: 10-02-2024 Refill Puja D'Cecily [facility] Comment on above: Hyperlipidemia LDL g oal <100 Start: 09-28-2024 End: 09-29-2024 Follow-up encounter Nicole PISANO Work Phone: [facility] Comment on above: Results Start: 09-27-2024 End: 09-27-2024 Office outpatient visit 25 minutes Sean Verduzco APRN.CNP Work Phone: [facility] Comment on above: Acute cystitis with hematuria (Primary Dx) Start: 09-27-2024 End: 09-27-2024 ambulatory [facility] Facility:[facility] Start: 08-20-2024 End: 08-20-2024 Refill Virgie Bridenthal COMPONENTS ENGINEER - [employer] Work Phone: [facility] Comment on above: Hyperlipidemia LDL g oal <100 Start: 08-10-2024 End: 08-10-2024 Telephone encounter Ramiro Rosa MD Work Phone: [facility] Clinical Communication Start: 07-23-2024 End: 07-23-2024 Refill Ramiro Rosa MD Work Phone: [facility] Start: 07-14-2024 End: 07-14-2024 Refill Ramiro Rosa MD Work Phone: [facility] Start: 06-26-2024 End: 06-26-[address] Ramiro Rosa MD Work Phone: [facility] Work Phone: Start: 06-26-2024 End: 06-26-[address] Dajuan Morrison MD -Laboratory, Specimen Work Phone: Start: 06-26-2024 End: 06-26-2024 ambulatory Dajuan HINDS Facility:[facility] Start: 06-23-2024 End: 06-23-2024 Refill Ramiro Rosa MD Work Phone: [facility] Start: 05-04-2024 End: 05-04-2024 Refill Virgie Bridenthal COMPONENTS ENGINEER - [employer]ER Work Phone: [facility] Start: 05-01-2024 End: 05-01-2024 Refill Virgie Bridenthal COMPONENTS ENGINEER - [employer] B[employer]ER Work Phone: [facility] Comment on above: Hyperlipidemia LDL g oal <100 Start: 04-20-2024 End: 04-20-2024 ambulatory RAMIRO ROSA [facility] Start: 04-20-2024 End: 04-20-2024 Encounter for general adult medical examination without abnormal findings RAMIRO ROSA [facility] Start: 04-20-2024 End: 04-20-2024 Patient encounter procedure Ramiro Rosa MD Work Phone: [facility] Work Phone: Start: 04-20-2024 End: 04-20-2024 Periodic preventive med est patient 40-64yrs Ramiro Rosa MD Work Phone: [facility] Comment on above: Annual physical exam (Primary Dx); Essential hypertension; Hyperlipidemia LDL goal <100; Intellectual disability; Recurrent major depressive disorder, in full remission (HCC); Seasonal allergic rhinitis due to pollen; Loud snoring; Screening for diabetes mellitus; Screening for prostate cancer Start: 04-03-2024 End: 04-06-2024 Refill Ramiro Rosa MD Work Phone: [facility] Start: 02-14-2024 End: 02-14-2024 ambulatory Dajuan HINDS Facility:[facility] Start: 02-03-2024 End: 02-03-2024 Refill Virgie Cee COMPONENTS ENGINEER - [employer]ER Work Phone: [facility] Comment on above: Seasonal allergic rh initis due to pollen Start: 01-17-2024 End: 01-17-2024 Telephone encounter Coco Cheema COMPONENTS ENGINEER - [employer]ER Work Phone: [facility] Comment on above: Results; Release of Information Start: 01-09-2024 End: 01-09-2024 ambulatory Ramiro Rosa MD Work Phone: [facility] Comment on above: MILAGROS (obstructive sle ep apnea); Loud snoring Start: 12-19-2023 ambulatory Michael Laguerre Facility :[facility] Start: 12-19-2023 End: 12-19-2023 ambulatory [facility] Facility:[facility] Start: 12-18-2023 End: 12-19-2023 Refill Ramiro Rosa MD Work Phone: [facility] Start: 12-03-2023 End: 12-03-2023 Refill Puja D'Cecily [facility] Comment on above: Hyperlipidemia LDL g oal <100 Start: 11-12-2023 End: 11-12-2023 Refill Ramiro Rosa MD Work Phone: [facility] Start: 11-05-2023 ambulatory [facility] Start: 10-24-2023 End: 10-24-2023 Office outpatient visit 25 minutes Ramiro Rosa MD Work Phone: [facility] Comment on above: Essential hypertensi on (Primary Dx); Hyperlipidemia LDL goal <100; Recurrent major depressive disorder, in full remission (HCC); Seasonal allergic rhinitis due to pollen; MILAGROS (obstructive sleep apnea); Loud snoring; Screening for colon cancer Start: 10-24-2023 End: 10-24-2023 ambulatory RAMIRO MOE [facility] Start: 09-27-2023 End: 09-27-2023 Office outpatient visit 15 minutes Ramiro Rosa MD Work Phone: [facility] Comment on above: Chronic midline low back pain without sciatica (Primary Dx) Start: 07-16-2023 End: 07-16-[address] Ramiro Rosa Work Phone: [facility] Work Phone: Start: 07-16-2023 End: 07-16-[address] Ramiro Rosa Work Phone: [facility]-Physical Therapy Work Phone: Start: 07-10-2023 Refill Ramiro Rosa MD Work Phone: [facility] Start: 07-02-2023 Refill Puja CandidaCecily [facility] Comment on above: Essential hypertensi on (Primary Dx); Hyperlipidemia LDL goal <100 Start: 06-07-2023 Refill Ramiro Rosa MD Work Phone: [facility] Start: 05-29-2023 End: 05-29-[address] Ramiro Rosa Work Phone: [facility] Work Phone: Start: 05-29-2023 End: 05-29-[address] Ramiro Rosa Work Phone: [facility]-Laboratory, Specimen Work Phone: Start: 05-29-2023 End: 05-29-[address] Ramiro Rosa Work Phone: [facility] Work Phone: Start: 04-24-2023 Refill Ramiro Rosa MD Work Phone: [facility] Start: 04-18-2023 End: 04-18-2023 Patient encounter procedure Ramiro Rosa MD Work Phone: [facility] Work Phone: Start: 04-18-2023 End: 04-18-2023 Periodic preventive med est patient 40-64yrs Ramiro Rosa MD Work Phone: [facility] Comment on above: Annual physical exam (Primary Dx); Essential hypertension; Seasonal allergic rhinitis due to pollen; Recurrent major depressive disorder, in full remission (HCC); Hyperlipidemia LDL goal <100; Intellectual disability; Screening for diabetes mellitus; Screening for prostate cancer; Chronic midline low back pain without sciatica Start: 03-29-2023 Refill Ramiro Rosa MD Work Phone: [facility] Comment on above: Seasonal allergic rh initis due to pollen Start: 02-18-2023 [facility]ulatory [facility] Start: 02-18-2023 End: 02-18-2023 Patient encounter [facility] Comment on above: Toenail torn away (P rimary Dx) Start: 01-08-2023 Refill Ramiro Rosa MD Work Phone: [facility] Start: 12-07-2022 Refill Ramiro Rosa MD Work Phone: [facility] Comment on above: Seasonal allergic rh initis due to pollen Start: 10-31-2022 Refill Ramiro Rosa MD Work Phone: [facility] Start: 10-19-2022 Telephone encounter Ramiro Vasquez MD Work Phone: [facility] Comment on above: Medication Problem ( nabumetone (Relafen) 500 MG tablet //) Start: 10-18-2022 End: 10-18-2022 Office outpatient visit 25 minutes Ramiro Rosa MD Work Phone: [facility] Comment on above: Essential hypertensi on (Primary Dx); Hyperlipidemia LDL goal <100; Recurrent major depressive disorder, in full remission (HCC); Acute midline low back pain without sciatica Start: 08-27-2022 End: 08-27-2022 Subsequent hospital visit by physician Ramiro Rosa MD Work Phone: [facility] Radiology Comment on above: Acute midline low ba ck pain without sciatica Start: 08-27-2022 End: 08-27-2022 Office outpatient visit 15 minutes Ramiro Rosa MD Work Phone: [facility] Comment on above: Acute midline low ba ck pain without sciatica (Primary Dx) Start: 08-09-2022 End: 08-09-2022 ambulatory [facility] Work Phone: Start: 08-09-2022 End: 04-06-2023 Patient encounter procedure [facility] Start: 08-07-2022 Charity Rosa MD Work Phone: [facility] Start: 07-06-2022 Charity Rosa MD Work Phone: [facility] Start: 05-04-2022 Telephone encounter Ramiro Vasquez MD Work Phone: [facility] Comment on above: other (BP readings f or one week patient may need more meds) Start: 04-17-2022 End: 04-17-2022 Emergency department patient [facility] Start: 02-23-2022 End: 02-23-[address] Ramiro Rosa Work Phone: [facility] Work Phone: Start: 02-23-2022 End: 02-23-[address] [facility] Start: 02-19-2022 End: 02-19-[address] Ramiro Rosa Work Phone: [facility] Start: 02-09-2022 End: 02-09-[address] Ramiro Rosa Work Phone: [facility] Procedures Date Procedure Procedure Detail Performing Clinician [...] on above: GFR Calc Start: 04-20-2024 Lipid 1995 panel - S joe or Plasma Virgie Cee COMPONENTS ENGINEER - [employer]ER Work Phone: Start: 01-16-2024 HOME SLEEP TEST Ramiro Rosa MD Work Phone: Start: 12-19-2023 Colonoscopy Ramiro rose MD Work Phone: Start: 05-29-[address] Paulo Rosa Work Phone: Start: 04-18-2023 Lipid 1995 panel - S joe or Plasma Ramiro Rosa MD Work Phone: Start: 08-27-2022 Radex spine lumbosac ral minimum 4 views Ramiro Rosa MD Work Phone: Start: 08-09-2022 Lipid 1995 panel - S joe or Plasma Ramiro Rosa MD Work Phone: Start: 04-17-2022 CT of head without contrast Dr. Ramiro Rosa Work Phone: Start: 02-23-2022 Lipid 1995 panel - S joe or Plasma Ramiro Rosa MD Work Phone: Start: 06-15-2021 Lipid 1995 panel - S joe or Plasma Yulia Lujan COMPONENTS ENGINEER.TIP BANDER Work Phone: Plan of Treatment Date Care Activity Detail Author Start: 2053 RSV Immunization for Adults (1 - 1-dose 75+ series) RSV Immunization for Adults (1 - 1-dose 75+ series) [facility] Start: 2038 RSV Immunization age d 60 or older (1 - 1-dose 60+ series) RSV Immunization aged 60 or older (1 - 1-dose 60+ series) [facility] Start: 12-18-2033 Screening for malign ant neoplasm of colon [facility] Start: 04-20-2029 Lipid panel [facility] Start: 2028 Zoster Vaccines (1 of 2) Zoster Vacc romulo (1 of 2) [facility] Start: 04-18-2028 Lipid panel Lipid Panel [facility] Start: 08-10-2027 Lipid panel Lipid Panel [facility] Start: 04-20-2027 Diabetes Screening Diabetes Screenin g [facility] Start: 02-23-2027 Lipid panel Lipid Panel [facility] Start: 06-15-2026 Lipid 1996 panel - S joe or Plasma Lipid Screening [facility] Start: 08-09-2025 Diabetes mellitus screening Diabetes Screening [facility] Start: 04-22-2025 End: 04-22-2025 Patient encounter procedure 04/22/2025 10:00 AM EST Office Visit [address] [address] Ramiro Rosa MD [address] [place] [id number] [facility] Start: 04-16-2025 Depression Monitoring Depression Mon itoring [facility] Start: 02-23-2025 Diabetes mellitus screening Diabetes Screening [facility] Start: 10-23-2024 DTaP/Tdap/Td Vaccine s (1 - Tdap) DTaP/Tdap/Td Vaccines (1 - Tdap) [facility] Comment on above: Postponed from 10/16 (Patient Refused) Start: 10-23-2024 Hepatitis B Vaccines (1 of 3 - 19+ 3-dose series) Hepatitis B Vaccines (1 of 3 - 19+ 3-dose series) [facility] Comment on above: Postponed from 10/16 (Patient Refused) Start: 10-23-2024 Hepatitis C screening Hepatitis C Sc reening [facility] Comment on above: Postponed from 10/16 (Patient Refused) Start: 10-23-2024 HIV screening HIV Screening [facility] Comment on above: Postponed from 10/16 (Patient Refused) Start: 10-20-2024 End: 10-20-2024 Patient encounter procedure 10/20/2024 11:30 AM EDT Office Visit [facility] [address] [place] [address] Ramiro Rosa MD [address] [place] [id number] [facility] Start: 10-19-2024 Depression Monitoring Depression Mon [facility] Start: 10-15-2024 End: 10-15-2024 Patient encounter procedure 10/15/2024 11:45 AM EDT Office Visit [facility] [address] [place] [address] Ramiro Rosa MD [address] [place] [id number] [facility] Start: 10-09-2024 Patient discharge [facility] Start: 10-08-2024 Following clinical pathway protocol [facility] Start: 10-08-2024 Assessment of risk o f venous thromboembolism [facility] Start: 10-08-2024 Consultation [facility] Start: 10-08-2024 Incentive spirometry [facility] Start: 10-08-2024 Inhalation therapy procedure [facility] Start: 10-08-2024 Insertion of cathete r into peripheral vein [facility] Start: 10-08-2024 Introduction of urin kashif catheter [facility] Start: 10-08-2024 Measuring intake and output [facility] Start: 10-08-2024 Oxygen therapy [facility] Start: 10-08-2024 Providing care accor ding to standard [facility] Start: 10-08-2024 Provision of activit y privileges [facility] Start: 10-08-2024 Referral to service [facility] Start: 10-08-2024 [facility] Start: 10-08-2024 Verification routine [facility] Start: 10-08-2024 Admission procedure [facility] Start: 10-08-2024 Hospital admission, emergency, from emergency room, medical nature [facility] Start: 09-16-2024 Diabetes mellitus screening Diabetes Screening [facility] Start: 04-24-2024 Depression Monitoring Depression [facility] Start: 04-20-2024 End: 04-20-2025 Comprehensive metabolic 1998 panel - Serum or Plasma Comprehensive metabolic panel Lab Routine Screening for diabetes mellitus Expected: 04/20/2024 (Approximate), Expires: 04/20/2025 [facility] [employer] Comment on above: Expected: 04/20/2024 (Approximate), Expires: 04/20/2025 Start: 04-20-2024 End: 04-20-2025 Lipid 1996 panel - Serum or Plasma Lipid panel Lab Routine Hyperlipidemia LDL goal <100 Expected: 04/20/2024 (Approximate), Expires: 04/20/2025 [facility] [employer] [facility] Work Phone: Comment on above: Expected: 04/20/2024 (Approximate), Expires: 04/20/2025 Start: 04-20-2024 End: 04-20-2025 PSA Total (Screening) PSA Total (Screening) Lab Routine Screening for prostate cancer Expected: 04/20/2024 (Approximate), Expires: 04/20/2025 [facility] [employer] Comment on above: Expected: 04/20/2024 (Approximate), Expires: 04/20/2025 Start: 04-20-2024 End: 04-20-2024 Patient encounter procedure [facility] Start: 01-09-2024 End: 01-09-2024 Clinical Support 01/09/2024 9:00 AM EDT Clinical Support [facility] [address] [place] [address] Ramiro Rosa MD [address] [place] [address] [facility] Start: 01-05-2024 COVID-19 Vaccine ( season) COVID-19 Vaccine () [facility] Start: 01-05-2024 COVID-19 Vaccine () COVID-19 Vaccine () [facility] Start: 01-05-2024 Influenza vaccination Influenza Vacc ine (#1) [facility] Start: 10-24-2023 End: 10-23-2024 Home sleep test Home sleep test Sleep Center Routine MILAGROS (obstructive sleep apnea) Loud snoring Expected: 10/24/2023 (Approximate), Expires: 10/23/2024 [facility] Work Phone: Comment on above: Expected: 10/24/2023 (Approximate), Expires: 10/23/2024 Start: 10-24-2023 End: 10-24-2023 Patient encounter procedure 10/24/2023 9:30 AM EDT Office Visit [facility] [address] [place], [place] [address], [place] [address] Ramiro Rosa MD [address] [place] [address] [phone] [facility] Start: 10-18-2023 Depression Monitoring Depression Mon itoring [facility] Start: 10-18-2023 Depresssion Monitoring Depresssion M onitoring [facility] Start: 10-17-2023 Screening for malign ant neoplasm of colon [facility] Start: 08-10-2023 Diabetes mellitus screening Diabetes Screening [facility] Start: 05-29-2023 Urine culture Urine Culture [facility] Start: 05-29-2023 [facility] Start: 04-18-2023 End: 04-18-2024 Comprehensive metabolic 1998 panel - Serum or Plasma Comprehensive metabolic panel Lab Routine Screening for diabetes mellitus Expected: 04/18/2023 (Approximate), Expires: 04/18/2024 [facility] Work Phone: Comment on above: Expected: 04/18/2023 (Approximate), Expires: 04/18/2024 Start: 04-18-2023 End: 04-18-2024 Lipid 1996 panel - Serum or Plasma Lipid panel Lab Routine Hyperlipidemia LDL goal <100 Expected: 04/18/2023 (Approximate), Expires: 04/18/2024 [facility] Comment on above: Expected: 04/18/2023 (Approximate), Expires: 04/18/2024 Start: 04-18-2023 End: 04-18-2024 PSA Total (Screening) PSA Total (Screening) Lab Routine Screening for prostate cancer Expected: 04/18/2023 (Approximate), Expires: 04/18/2024 [facility] Comment on above: Expected: 04/18/2023 (Approximate), Expires: 04/18/2024 Start: 04-18-2023 End: 04-18-2023 Patient encounter procedure 04/18/2023 9:30 AM EST Office Visit [facility] [address] [place], [place] [address], [place] [address] Ramiro Rosa MD [address] [place] [id number] [facility] Start: 01-04-2023 Covid-19 Vaccine ( season) Covid-19 Vaccine ( season) [facility] Start: 01-04-2023 Influenza vaccination Influenza Vacc ine (#1) [facility] Start: 10-18-2022 End: 10-18-2022 Patient encounter procedure 10/18/2022 Office Visit Family [place] [address] [facility] Start: 05-06-2022 Depression Assessment Depression Ass essment [facility] Start: 01-31-2022 COVID-19 Vaccine (4 - Booster for Moderna series) COVID-19 Vaccine (4 - Booster for Moderna series) [facility] Start: 06-05-2021 COVID-19 Vaccine (4 - Moderna series) COVID-19 Vaccine (4 - Moderna series) [facility] Start: 1997 DTaP/Tdap/Td Vaccine s (1 - Tdap) DTaP/Tdap/Td Vaccines (1 - Tdap) [facility] Start: 1997 Hepatitis B Vaccine (1 of 3 - 19+ 3-dose series) Hepatitis B Vaccine (1 of 3 - 19+ 3-dose series) [facility] Start: 1997 Hepatitis B Vaccines (1 of 3 - 19+ 3-dose series) Hepatitis B Vaccines (1 of 3 - 19+ 3-dose series) [facility] Start: 1997 Urine microalbumin profile DTaP,Tdap,Td Vaccine (1 - Tdap) [facility] Start: 1996 Anxiety Screening Anxiety Screening [facility] Start: 1996 [facility] Start: 1996 Hepatitis C screening Hepatitis C [facility] Start: 1996 Hepatitis C Screening Hepatitis C [facility] Start: 1996 HIV Screening HIV Screening [facility] Start: 1996 HIV screening HIV Screening [facility] Start: 1990 [facility]: [facility] Hepatitis B Vaccine (1 of 3 - 3-dose series) Hepatitis B Vaccine (1 of 3 - 3-dose series) [facility] Start: 1978 Hepatitis B Vaccines (1 of 3 - 3-dose series) Hepatitis B Vaccines (1 of 3 - 3-dose series) [facility] Start: 1978 HIV screening HIV Screening [facility] Start: 1978 Screening for malign ant neoplasm of colon [facility] Bacteria identified in Urine by Culture BACTERIAL CULTURE, URINE Microbiology Routine Acute cystitis with hematuria Ordered: 09/27/2024 [facility] Work Phone: Comment on above: Ordered: 09/27/2024 OUTSIDE PROCEDURE SCAN OUTSIDE P ROCEDURE SCAN Procedures Ordered: 08/27/2022 [facility] Comment on above: Ordered: 08/27/2022 Patient Education [facility] Work Phone: Patient referral [facility] Work Phone: UA DIP, URINE (POC) UA DIP, URIN E (POC) Lab Routine Acute cystitis with hematuria Ordered: 09/27/2024 [facility] Comment on above: Ordered: 09/27/2024 Immunizations Immunization Date Immunization Notes Care Provider Kobi richards 03-26-2024 Seasonal, trivalent, recombinant, injectable influenza vaccine, preservative free Ramiro Rosa MD Work Phone: [facility] 02-07-2023 influenza, injectabl e, quadrivalent, contains preservative Milly Miller RN [facility] 02-07-2023 Seasonal, quadrivale nt, recombinant, injectable influenza vaccine, preservative free Puja D'Cecily [facility] 02-07-2023 influenza virus vacc ine, unspecified formulation Ramiro Rosa MD Work Phone: [facility] 02-23-2022 Influenza, injectabl e, Madin [place] Canine Kidney, preservative free, quadrivalent Ramiro Rosa MD Work Phone: [facility] 02-23-2022 influenza virus vacc ine, unspecified formulation Ramiro Rosa MD Work Phone: [facility] 04-10-2021 Moderna SARS-CoV-2 Vaccination Ramiro Rosa MD Work Phone: [facility] 01-25-2021 influenza, injectabl e, quadrivalent, preservative free Ramiro Rosa MD Work Phone: [facility] 03-24-2020 Seasonal, quadrivale nt, recombinant, injectable influenza vaccine, preservative free Ramiro Rosa MD Work Phone: [facility] 02-11-2019 Influenza, injectabl e, Madin Marcela Canine Kidney, preservative free, quadrivalent Ramiro Rosa MD Work Phone: [facility] 04-11-2018 influenza, seasonal, injectable Ramiro Rosa MD Work Phone: [facility] 04-10-2017 influenza, injectabl e, quadrivalent, contains preservative Ramiro Rosa MD Work Phone: [facility] 03-28-2016 influenza, injectabl e, quadrivalent, contains preservative Ramiro Rosa MD Work Phone: [facility] 03-08-2014 influenza, seasonal, injectable Ramiro Rosa MD Work Phone: [facility] 09-14-2013 measles, mumps and r ubella virus vaccine Ramiro Rosa MD Work Phone: [facility] 02-25-2009 influenza virus vacc ine, whole virus Ramiro Rosa MD Work Phone: [facility] Payers Date Payer Category Payer Self-pay [id number] 2017 Medicaid [id number] 2009 Medicaid [id number] Unknown [id number] [id number] Unknown [id number] 2.16.8 [id number] Unknown [id number] 2.16.8 [id number] Unknown [id number] [id number] Unknown [id number] 2.16.8 [id number] Unknown [id number] 2.16.8 [id number] Unknown [id number] 2.16.8 [id number] Unknown [id number] 2.16.8 [id number] Unknown [id number] [id number] Unknown [id number] [id number] Social History Date Type Detail Facility Start: 02-19-2022 End: 05-29-2023 Tobacco smoking status ARIS Unknown if ever smoked [facility] Start: 03-02-2021 None [facility] Start: 03-02-2021 Non-smoker [facility] Start: 1980 Sex Assigned At Male [facility] Start: 12-16-2023 End: 10-08-2024 Tobacco smoking status ARIS Never smoked tobacco [facility] Start: 04-19-2022 End: 10-15-2024 Alcohol intake Current non-drinker of alcohol (finding) [facility] Start: 1980 Sex Assigned At Not on file [facility] Start: 04-09-2022 End: 08-27-2022 Exposure to SARS-CoV-2 (event) Not sure [facility] Start: 08-27-2022 End: 10-24-2023 History of Social function [facility] Start: 08-27-2022 End: 10-24-2023 Tobacco use panel [facility] Start: 10-08-2022 End: 10-18-2022 Exposure to SARS-CoV-2 (event) Yes [facility] National Score (1-100), lower number is lower risk Not on file [facility] (I/We) worried [facility] (my/our) food would run out before (I/we) got money to buy more. Never true [facility] [employer] In the past 12 month s, was there a time when you were not able to pay the mortgage or rent on time? No [facility] Are you now , , , , never or living with a partner? Never [facility] Do you feel stress - tense, restless, nervous, or anxious, or unable to sleep at night because your mind is troubled all the time - these days [OSQ] Only a little [facility] Start: 12-04-2021 End: 07-09-2024 Sex Male (finding) [facility] How often do you nee d to have someone help you when you read instructions, pamphlets, or other written material from your doctor or pharmacy [SILS] Always [facility] Start: 10-08-2024 Tobacco use and exposure Smokeless tobacco non-user [facility] Goals Date Patient Goal Desired Activity /State Functional Status Date Assessment Result Facility 10-15-2024 Patient Health Quest ionnaire 2 item (PHQ-2) [Reported] [facility] 10-15-2024 PHQ-9 quick depressi on assessment panel [Reported.PHQ] [facility] 10-09-2024 Functional status Bathroom Privi lege;Back to bed [facility] Work Phone: Mental Status Date Assessment Result Facility 10-09-2024 Cognitive function Level Of Cons ciousness Awake;Alert;Appropriate [facility] Work Phone: 10-09-2024 Cognitive function Voice/Name [facility] Work Phone: 10-09-2024 Cognitive function Cooperative;Anxious [facility] Work Phone: 04-17-2022 Cognitive function Level Of Cons ciousness Awake;Alert;Appropriate;Follow s Commands [facility] Work Phone: Clinical Notes 05-04-2022 to 10-15-2024 Assessment & Plan Note - Ramiro Rosa MD - 10/15/2024 12:38 PM EDTAssessment & Plan Note - Ramiro Rosa MD - 10/15/2024 12:38 PM EDT Note Date & Type Note Facility 10-15-2024 Evaluation + Plan note Associ ated Problem(s): Recurrent major depressive disorder, in full remission (HCC) Remission, continue Trileptal 600 mg and Seroquel 100 mg daily and clonazepam 0.25 mg 3 times a day [facility] 10-15-2024 Miscellaneous Notes Associate d Problem(s): Recurrent major depressive disorder, in full remission (HCC) Remission, continue Trileptal 600 mg and Seroquel 100 mg daily and clonazepam 0.25 mg 3 times a day Associated Problem(s): Hyperlipidemia LDL goal <100 Controlled, continue atorvastatin 40 mg daily and fenofibrate 145 mg daily Associated Problem(s): Calculus of kidney Currently has a stent in place is waiting for surgery to break up the stone. Follow-up with urology as scheduled. Associated Problem(s): Essential hypertension Controlled, continue clonidine 0.2 mg, losartan 100 mg, documented in this encounter [facility] 10-15-2024 Evaluation + Plan note Associ ated Problem(s): Hyperlipidemia LDL goal <100 Controlled, continue atorvastatin 40 mg daily and fenofibrate 145 mg daily [facility] 10-15-2024 Evaluation + Plan note Associ ated Problem(s): Calculus of kidney Currently has a stent in place is waiting for surgery to break up the stone. Follow-up with urology as scheduled. [facility] 10-15-2024 Evaluation + Plan note Associ ated Problem(s): Essential hypertension Controlled, continue clonidine 0.2 mg, losartan 100 mg, [facility] 10-15-2024 History of Presen t illness Narrative Images from the original note were not included. 10/15/2024 Chan Burciaga (: 1980) is a 43 y.o. male , Established patient, here for evaluation of the following chief complaint(s): Follow-up (6m follow up, medication check, recent ED visit for kidney stone) ASSESSMENT/PLAN: 1. Essential hypertension Assessment & Plan: Controlled, continue clonidine 0.2 mg, losartan 100 mg, 2. Calculus of kidney Assessment & Plan: Currently has a stent in place is waiting for surgery to break up the stone. Follow-up with urology as scheduled. 3. Hyperlipidemia LDL goal <100 Assessment & Plan: Controlled, continue atorvastatin 40 mg daily and fenofibrate 145 mg daily 4. Recurrent major depressive disorder, in full remission (HCC) Assessment & Plan: Remission, continue Trileptal 600 mg and Seroquel 100 mg daily and clonazepam 0.25 mg 3 times a day Follow up in about 6 months (around 04/16/2025). SUBJECTIVE/OBJECTIVE: MIGUEL ÁNGEL Monaco comes in today for a 6-month follow-up on his hypertension, hyperlipidemia and depression and these all seem to be well-controlled at this time. He recently had another kidney stone he had a stent placed and he is now waiting to have surgery to break up the stone. Review of Systems Constitutional: Negative for activity [...] mood. The patient is not nervous/anxious. Vitals: 10/15/24 1144 BP: 120/81 Pulse: 95 SpO2: 95% Weight: 190 lb (86.2 kg) Height: 5' 5 (1.651 m) Physical Exam Vitals and nursing note [...] to authenticate this note. Ramiro Rosa MD 10/15/2024 12:39 PM documented in this encounter [facility] 10-09-2024 Consult note [facility] 10-09-2024 Consult note [facility] 10-09-2024 Discharge summary [facility] 10-09-2024 Note [facility] Medical Records Department [address] [place] [address] Discharge Summary 10/09/24 1608 MR#: [id number] Acct: [id number] Name: CHAN BURCIAGA Rep #: [id number] : 1980 43 From: Austin Mares MD PCP: Dr. 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 [facility] 10-09-2024 Discharge summary [facility] 10-09-2024 Consult note Note Date/Time October 09, 2024 4:25pm [facility] Medical Records Department [address] [place] [address] Anesthesia Postop Eval II 10/09/24 1338 MR#: [id number] Acct: [id number] Name: CHAN BURCIAGA Rep #:[id number] : 1980 43 From: Sandro Julian MD PCP: Dr. Ramiro Rosa MD Status:ADM IN Y Race: C Location: [facility] MS308 -1 Anesthesia Postop Eval I Sum Postop Eval Completion status Anesthesia document: Postop Eval 1 completed: Yes Anesthesia Postop Eval I Summary Anesthesia Postop Eval I Summary: Anesthesia Postop Eval I: Assessment Summary Airway patent Yes 10/09/24 13:03 VICE PRESIDENT FINANCIAL.SOBR Spontaneous unlabored Yes 10/09/24 13:03 VICE PRESIDENT FINANCIAL.SOBR respirations Mental status Awake,Calm 10/09/24 13:03 VICE PRESIDENT FINANCIAL.SOBR nausea No 10/09/24 13:03 VICE PRESIDENT FINANCIAL.SOBR Vomiting No 10/09/24 13:03 VICE PRESIDENT FINANCIAL.SOBR Anesthesia Postop Eval I: Fluid Summary Crystalloid volume administer 500 10/09/24 13:03 VICE PRESIDENT FINANCIAL.SOBR (ml) Colloids volume administered ( ml) Blood Product volume administered (ml) Total IV fluid infused 500 10/09/24 13:03 VICE PRESIDENT FINANCIAL.SOBR Anesthesia Postop Eval I: Summary Notes Anesthesia Complication No 10/09/24 13:03 VICE PRESIDENT FINANCIAL.SOBR Anesthesia Complication Comment: Post-operative progress note Anesthesia: Postop Eval II Evaluation Mental status: Awake Pain Level: 0 nausea: No Vomiting: No 10/09/24 1338 <Electronically signed by Sandro Julian MD > Date _ Sandro Regalado Signature: Date CC: ~ Signed [facility] Work Phone: 1(710) 768-328606-06-2025 Consult note Author Jeevan Madden [facility] Note Date/Time October 09, 2024 1:03p [facility] Medical Records Department [address] [facility] [place] [address] Anesthesia Postop Eval I 10/09/24 1302 MR#: [id number] Acct: [id number] Name: CHAN BURCIAGA Rep #:[id number] : 1980 43 From: Jeevan LUNDBERG PCP: Dr. Ramiro Rosa MD Status:ADM IN Y Race: C [facility] Anesthesia: Postop Eval I Current Vital Signs [...] by Jeevan Madden CRNA> Date _ Jeevan Regalado Signature: Date CC: ~ Signed [facility] Work Phone: 1(151) 278-437906-06-2025 Consult note Author Sandro Julian [facility] Note Date/Time October 09, 2024 4:25p m [facility] Medical Records Department [address] [place] [address] Pre-Anesthesia Evaluation 10/09/24 1214 MR#: [id number] Acct: [id number] Name: CHAN BURCIAGA Rep #:[id number] : 1980 43 From: Sandro Julian MD [...] stent placement. Anesthesia History Anesthesia History - 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: Anesthesia History - 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 Hx Hospitalization No 12/16/23 15:36 Any Problems [...] take am of surgery PONV PONV - 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: PONV - 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 Female HX of Motion Sickness HX of N/V After Surgery Non-Smoker Duration of Surgery greater than 60 minutes Number of Risk Factors PONV Score Height & Weight Height & Weight: Anesthesia: Height & Weight Height 5 ft 4.96 in 10/09/24 10:19 Weight: 86 kg 10/09/24 10:19 Body Mass Index (BMI) 31.6 10/09/24 10:19 Respiratory Assessment Respiratory Assessment - 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: Respiratory Tract Infection Hx - 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 Hx Respiratory Tract Infection No 12/16/23 15:36 STOP Sleep Apnea STOP Sleep Apnea - 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: STOP Sleep Apnea - 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 Hx Hypertension Yes: CONTROLLED WITH MED 10/08/24 [...] Tobacco Use History Tobacco 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: Tobacco 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 Tobacco Use Non-smoker 03/02/21 15:59 Smoking Status Never smoker 10/08/24 21:22 Hx Tobacco Use No 10/08/24 21:22 Years Smoking Packs Smoked per Day Smoking Cessation Date was within the last 15 years Hx Smoking Cessation Date Hx Smoking Cessation Counseling Hematologic Medial History Hematologic Hx - 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: 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 Hx of Blood Transfusion No 10/08/24 21:22 [...] confused, unrespo /Reproduction History /Reproductive History - 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: /Reproductive Hx- 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 Hx Now Gestational Age (in weeks): EDC: Hx Hx Para Hx Section SAB No 12/16/23 15:36 Active Medications Active Medications: Current Medications Generic Name Dose Route Start Last Admin Trade Name Freq PRN Reason Stop Dose Admin Acetaminophen 650 mg 10/08/24 21:21 10/08/24 22:02 Acetaminophen 325 Mg Tablet PO 650 mg Q4H PRN PRN Administration Fever, pain 1-10/10 Al Hydroxide/Mg Hydroxide 30 ml 10/08/24 21:21 [...] 10:00 Fenofibrate 145 Mg Tablet PO DAILY VIDHI Fluticasone Propionate 2 spray 10/09/24 10:00 Fluticasone 0.05% 1 [place] Nasal.Sry NASAL DAILY VIDHI Guaifenesin 20 ml 10/08/24 21:21 10/09/24 03:46 Guaifenesin 10 Ml Udc (200mg/10ml) PO 20 ml Q4H PRN PRN Administration COUGH Hydralazine HCl 10 mg 10/08/24 21:21 Hydralazine 20 Mg/Ml Vial IV Q4H PRN PRN SBP > 160 Protocol Sodium Chloride 250 mls @ 15 mls/hr 10/08/24 21:42 IV .[id number] PRN Saline Flush Sodium Chloride 250 mls @ 15 mls/hr 10/08/24 21:42 IV .[id number] PRN Additional IVPB Infusion Cefazolin Sodium 2 gm/ Sodium 110 mls @ 150 mls/hr 10/09/24 12:04 Chloride IV 10/09/24 12:47 X1 ONE Ketorolac Tromethamine 15 mg 10/08/24 21:21 Ketorolac 15 Mg/Ml Vial IV 10/13/24 21:21 Q6H PRN PRN Pain Score 1-10 Lactic Acid 1 applic 10/09/24 10:00 Ammonium Lactate 225 Gm Bottle TOPICAL DAILY VIDHI Loratadine 10 mg 10/09/24 10:00 Loratadine 10 Mg Tablet PO DAILY VIDHI Losartan Potassium 100 mg 10/09/24 10:00 Losartan Potassium 100 Mg Tablet PO DAILY [facility] Protocol Melatonin 3 mg 10/08/24 21:21 Melatonin [...] SALINE FLUSH PFSH Medical History Lives in chcf Arthritis Back pain Non-smoker Shortness of breath [...] History mg-400 unit-5,000 unit/gram top oint (Neosporin (sne-yue-bmhvv)) oxcarbazepine 600 mg tablet 600 mg PO [...] MD Cosigner Signature: Date CC: ~ Signed [facility] Work Phone: 1([phone]) 732-354506-06-2025 Consult note Author Salvador Rush [facility] Note Date/Time October 09, 2024 12:10 pm [facility] Medical Records Department [address] [place] [address] Consultation - Urology 10/09/24 1139 MR#: [id number] Acct: [id number] Name: CHAN BURCIAGA Rep #:[id number] : 1980 43 From: Salvador Rush MD PCP: Dr. Ramiro Rosa MD Status:ADM IN [facility] HPI Consult Data Date of Consult: 10/09/24 [...] findings a separate setting once everything stable. [facility] Medical History Lives in chcf Arthritis Back pain Non-smoker Shortness of breath [...] History mg-400 unit-5,000 unit/gram top oint (Neosporin (xcz-fia-qxlmo)) oxcarbazepine 600 mg tablet 600 mg PO [...] % (Auto) 68.7, Lymph % (Auto) 19.2, Ward% (Auto) 8.0, Eos % (Auto) 2.9, Baso [...] Clarity Cloudy, Urine pH 7.0, Ur Specific [place] 1.010, Urine Protein 30 H, Urine Glucose [...] % (Auto) 53.3, Lymph % (Auto) 31.8, Ward% (Auto) 8.4, Eos % (Auto) 5.5 H, [...] onto the urinary bladder wall. Reading Location: [facility] 10/09/24 1140 <Electronically signed by Salvador Rush [...] cc: Dr. Ramiro Rosa MD ~* Signed [facility] Work Phone: 1(221) 609-427606-06-2025 Consult note [facility] Medical Records Department [address] [facility] [place] [address] Anesthesia Postop Eval I 10/09/24 1302 MR#: [id number] Acct: [id number] Name: CHAN BURCIAGA Rep #:[id number] : 1980 43 From: Jeevan LUNDBERG PCP: Dr. Ramiro Rosa MD Status:ADM IN Y Race: C Location: [place] [address] Anesthesia: Postop Eval I Current Vital Signs [...] Postop Eval 1 completed: Yes 10/09/24 1303 VICE PRESIDENT FINANCIAL> Date _ Jeevan Madden VICE PRESIDENT FINANCIAL Cosigner Signature: Date CC: ~ Signed [facility]06-06-2025 Procedure note [facility] Medical Records Department [address] [place] [address] Operative Report 10/09/24 1246 MR#: [id number] Acct: [id number] Name: CHAN BURCIAGA Rep #:[id number] : 1980 43 From: Salvador Rush MD PCP: Dr. Ramiro Rosa MD Status:ADM IN Location: [facility] [id number] Operative Report (Standard) Operative Information Date of Procedure: 10/09/24 Pre-Operative Diagnosis: Left obstructing kidney stone Post-Operative Diagnosis: Same Surgery/Procedure Performed: Cystoscopy and left stent placement knockdown worker: No Type of Anesthesia: General RN Documented [...] One of the bladder with a 21 Slovak rigid cystourethroscope found that he had a [...] Rosa MD; Dr. Salvador Rush MD~ Signed [facility]06-06-2025 Consult note [facility] Medical Records Department [address] [place] [address] Consultation - Urology 10/09/24 1139 MR#: [id number] Acct: [id number] Name: CHAN BURCIAGA Rep #:[id number] : 1980 43 From: Salvador Rush MD PCP: Dr. Ramiro Rosa MD Status:ADM IN Location: [facility] LO418-6 HPI Consult Data Date of Consult: 10/09/24 [...] findings a separate setting once everything stable. [facility] Medical History Lives in chcf Arthritis Back pain Non-smoker Shortness of breath [...] History mg-400 unit-5,000 unit/gram top oint (Neosporin (yrs-uao-zzvpi)) oxcarbazepine 600 mg tablet 600 mg PO [...] % (Auto) 68.7, Lymph % (Auto) 19.2, Ward% (Auto) 8.0, Eos % (Auto) 2.9, Baso [...] Clarity Cloudy, Urine pH 7.0, Ur Specific [place] 1.010, Urine Protein 30 H, Urine Glucose [...] % (Auto) 53.3, Lymph % (Auto) 31.8, Ward% (Auto) 8.4, Eos % (Auto) 5.5 H, [...] onto the urinary bladder wall. Reading Location: [facility] 10/09/24 1140 Cosigner Signature (if applicable): CC: Dr. Ramiro Rosa MD~ Signed ADDENDUM by Dr. Salvador Rush MD on 10/09/24 at 1210 Addendum 43-year-old male with obstructing stone we are unable to get [facility], the patient is agreeable with having the procedure done for cystoscopyand stent placement we had to DrsJose Manuel Review his chart myself and Dr. Julian and tyreeeed that surgical intervention with an emergency stent is appropriate to unblock his kidney clear of any infection plus the patient has given assent. 10/09/24 1210 Cosigner Signature (if applicable): cc: Dr. Ramiro Rosa MD ~* Signed [facility]06-06-2025 Discharge summary Author Brad Goins [facility] Note Date/Time October 08, 2024 10:07 pm [facility] Medical Records Department [address] [place] [address] Emergency Department Summary 10/08/24 MR#: [id number] Acct: [id number] Name: CHAN BURCIAGA Rep #:[id number] : 1980 43 From: Brad Goins MD PCP: Dr. Ramiro Rosa MD Status:ADM IN Location: MS3 ZW494-5 HPI HPI - GI History of Present [...] or Hematuria Narrative Narrative: 43-year-old male from chcf. History of hypertension kidney stones. Said the [...] similar symptoms: No Recent Illness/Hospitalization: No PFSH [facility] Medical History Lives in chcf Arthritis Back pain Non-smoker Shortness of breath [...] History mg-400 unit-5,000 unit/gram top oint (Neosporin (hax-pdr-yabxr)) oxcarbazepine 600 mg tablet 600 mg PO [...] % (Auto) 68.7 Lymph % (Auto) 19.2 Ward % (Auto) 8.0 Eos % (Auto) 2.9 [...] Clarity Cloudy Urine pH 7.0 Ur Specific [place] 1.010 Urine Protein 30 H Urine Glucose [...] onto the urinary bladder wall. Reading Location: [facility] Discharge Plan Triage Chief Complaint: Abd Pain [...] mg tablet 600 mg PO BID Neosporin (nyb-qcb-rhwnx) 3.5mg-400 unit- 5,000 unit/gram ointment 1 applic [...] MD [Primary Care Provider] - Print Language: Danish What to do if you have Problems For any increased pain, shortness of breath, bleeding, nausea or vomiting, chestpain, or any unexpected problems, contact your Primary Care Provider. Call [facility] ([phone]) or report to the closest Emergency Room. Call 911 if necessary. 10/08/242206 <Electronically signed by Brad Goins MD> Cosigner Signature (if applicable): CC: Dr. Ramiro Rosa MD ~ Signed [facility] Work Phone: 1(221) [phone] History and physical note Author Yamileth Aguirre [facility] Note Date/Time October 08, 2024 8:46p m [facility] Medical Records Department [address] [place] [address] H&P Exam - Hospitalist 10/08/242001 MR#: [id number] Acct: [id number] Name: CHAN BURCIAGA Rep #:[id number] : 1980 43 From: Yamileth Aguirre MD PCP: Dr. Ramiro Rosa MD Status:ADM IN Location: [facility] GB787-1 HPI - General General Date of Admission: 10/08/24 Date of Service: 10/08/24 Chief Complaint: Abdominal pain, flank pain. 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 EDdiscussed case with urology. [facility] Medical History Lives in chcf Arthritis Back pain Non-smoker Shortness of breath [...] History mg-400 unit-5,000 unit/gram top oint (Neosporin (yjn-avv-xilct)) oxcarbazepine 600 mg tablet 600 mg PO [...] alert, oriented to self, place, recent vents, chcf staff present, remains cooperative, seated upright in [...] currently is baseline intact per discussion with chcf staff, pupils equally reactive to light and [...] % (Auto) 68.7, Lymph % (Auto) 19.2, Ward% (Auto) 8.0, Eos % (Auto) 2.9, Baso [...] Clarity Cloudy, Urine pH 7.0, Ur Specific [place] 1.010, Urine Protein 30 H, Urine Glucose [...] onto the urinary bladder wall. Reading Location: [facility] Assessment & Plan Assessment/Plan (1) Kidney stone on left side: PLAN: Plan The patient is a 43 y/o M w/ intellectual debilities living in a chcf w/ PMHx: CKD stage II per GFR trending, HTN, HLD, Anxiety and Depression/Mood disorder, Obesity who presents to the [facility] ED on 10/08/24 with history of abdominalpain [...] the urinary bladder wall: Will admit to [place], maintain on hydration, currently urinalysis with no [...] STATUS: Full Code per discussion with the chcf staff. Charges/Coding Visit Charges Inpatient E&M: 55701 Init Hosp L3 10/08/242045 <Electronically signed by Yamileth Aguirre MD> Cosigner Signature (if applicable): CC: Dr. Yamileth Aguirre MD; Dr. Ramiro Rosa MD~ Signed [facility] Work Phone: 1(661) 902-553306-05-2025 Discharge summary [facility] Medical Records Department [address] [place] [address] Emergency Department Summary 10/08/24 MR#: [id number] Acct: [id number] Name: CHAN BURCIAGA Rep #:[id number] : 1980 43 From: Brad Goins MD PCP: Dr. Ramiro Rosa MD Status:ADM IN Location: [facility]3 NO121-3 HPI HPI - GI History of Present [...] or Hematuria Narrative Narrative: 43-year-old male from chcf. History of hypertension kidney stones. Said the [...] similar symptoms: No Recent Illness/Hospitalization: No PFSH [facility] Medical History Lives in chcf Arthritis Back pain Non-smoker Shortness of breath [...] History mg-400 unit-5,000 unit/gram top oint (Neosporin (bkf-yiq-leqcp)) oxcarbazepine 600 mg tablet 600 mg PO [...] % (Auto) 68.7 Lymph % (Auto) 19.2 Ward % (Auto) 8.0 Eos % (Auto) 2.9 [...] Clarity Cloudy Urine pH 7.0 Ur Specific [place] 1.010 Urine Protein 30 H Urine Glucose [...] onto the urinary bladder wall. Reading Location: [facility] Discharge Plan Triage Chief Complaint: Abd Pain [...] mg tablet 600 mg PO BID Neosporin (wuv-stm-jejom) 3.5mg-400 unit- 5,000 unit/gram ointment 1 applic [...] MD [Primary Care Provider] - Print Language: Danish What to do if you have Problems For any increased pain, shortness of breath, bleeding, nausea or vomiting, chestpain, or any unexpected problems, contact your Primary Care Provider. Call [facility] ([phone]) or report tothe closest Emergency Room. Call 911 if necessary. 10/08/242206 Cosigner Signature (if applicable): CC: Dr. Ramiro Rosa MD ~ Signed [facility]06-05-2025 Evaluation note* Diagnosis Onset Date Resolution Status Admit Date Abdominal pain acute October 08, 2024 8:03pm History of hypertension acute J 2024 8:03pm Intractable abdominal pain acute October 08, 2024 8:03pm Kidney stone on left side acute October 08, 2024 8:03pm [facility] Work Phone: 1(457) 265-936306-05-2025 History and physical note [facility] Medical Records Department [address] [place] [address] H&P Exam - Hospitalist 10/08/242001 MR#: [id number] Acct: [id number] Name: CHAN BURCIAGA Rep #:[id number] : 1980 43 From: Yamileth Aguirre MD PCP: Dr. Ramiro Rosa MD Status:ADM IN Location: [facility] CE974-6 HPI - General General Date of Admission: 10/08/24 Date of Service: 10/08/24 Chief Complaint: Abdominal pain, flank pain. 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 EDdiscussed case with urology. [facility] Medical History Lives in chcf Arthritis Back pain Non-smoker Shortness of breath [...] History mg-400 unit-5,000 unit/gram top oint (Neosporin (eqo-dem-xapkf)) oxcarbazepine 600 mg tablet 600 mg PO [...] alert, oriented to self, place, recent vents, chcf staff present, remains cooperative, seated upright in [...] currently is baseline intact per discussion with chcf staff, pupils equally reactive to light andaccommodation, [...] % (Auto) 68.7, Lymph % (Auto) 19.2, Ward% (Auto) 8.0, Eos % (Auto) 2.9, Baso [...] Clarity Cloudy, Urine pH 7.0, Ur Specific [place] 1.010, Urine Protein 30 H, Urine Glucose [...] onto the urinary bladder wall. Reading Location: [facility] Assessment & Plan Assessment/Plan (1) Kidney stone on left side: PLAN: Plan The patient is a 43 y/o M w/ intellectual debilities living in a chcf w/ PMHx: CKD stage II per GFR trending, HTN, HLD, Anxiety and Depression/Mood disorder, Obesity who presents to the [facility] ED on 10/08/24 with history of abdominalpain [...] STATUS: Full Code per discussion with the chcf staff. Charges/Coding Visit Charges Inpatient E&M: 02068 Init Hosp L3 10/08/242045 Cosigner Signature (if applicable): CC: Dr. Yamileth Aguirre MD; Dr. Ramiro Rosa MD~ Signed [facility]06-05-2025 Radiology Diagnostic study note [facility] Imaging Services [address] [place], [place] [address] Abdomen/Pelvis W IV Cont ONLY MR#: [id number] Acct: [id number] Name: CHAN BURCIAGA Rep #: [id number] : 1980 M 43 From: Silvia Morley MD PCP: Dr. Ramiro Rosa MD Status: REG ER Study:Abdomen/Pelvis W IV Cont ONLY Date of E xam: 10/08/24 Exam# [id number] Ordering Dr: Devin Goins MD PROCEDURE: ABDOMEN/PELVIS [...] onto the urinary bladder wall. Reading Location: [facility] CC: Dr. Ramiro Rosa MD; Dr. Brad Goins MD ~ Electronic Equipment Maint Tech: Signed [facility]06-05-2025 NoteHNO ID: [id number] Author: ZACH CARDENAS MD Service: ? Author Type: Physician Type: Progress Notes Filed: 10/08/2024 16:34 Note Text: [facility] Subjective Chan Burciaga is a 43 [...] He is not ill-appearing. Comments: Accompanied by chcf caregiver Eyes: Extraocular Movements: Extraocular movements intact. [...] caregiver will take him. Zach Cardenas MD [facility]06-05-2025 History of Present illness Narrative* Zach [...] He is not ill-appearing. Comments: Accompanied by chcf caregiver Eyes: Extraocular Movements: Extraocular movements intact. [...] caregiver will take him. Zach Cardenas MD [facility] Telephone encounter Note * Telephone Encounter - YANNICK Jones CNP - 10/02/2024 12:47 PM EDT Reviewed chart. Refill appropriate. [id number] Miscellaneous Notes* Telephone Encounter - YANNICK Jones [...] refill. Next appt: 10/15/2024 documented in [facility] [id number] Telephone encounter Note* Telephone Encounter - Puja White - 10/02/2024 12:18 PM EDT Pharmacy sent over fax requesting refills for a 31 day supply with 11 refills OR 93 day supply with3 refills. I pended a 93 day supply with 1 refill. Next appt: 10/15/2024 [id number] Telephone encounter Note* Telephone Encounter - Pari Wiley RN - 09/29/2024 2:15 PM EDT Tena nurse with [facility] ([facility]y [facility] [place]) calling back-given provider's recommendations and verbalizes understanding. [facility]05-27-2025 Miscellaneous Notes* Telephone Encounter - Pari Wiley RN - 09/29/2024 2:15 PM EDT Tena nurse with [facility] ([facility] [place]) calling back-given provider's recommendations and verbalizes understanding. [...] blood in the urine [facility] Telephone encounter Note * Telephone Encounter - Sabrina Dang LPN - 09/28/2024 3:10 PM EDT Left message for patient to return call for results.Sabrina Dang LPN [facility]05-26-2025 Telephone encounter Note* Telephone Encounter - Nicole Starr PA - 09/28/2024 10:04 AM EDT Please let patient know urine culture revealed no UTI. Please follow-up with PCP to ensure resolution of blood in the urine [facility]05-25-2025 NoteHNO ID: [id number] Author: SEAN VERDUZCO APRN.TIP BANDER Service: ? Author Type: Nurse Practitioner Type: Progress Notes Filed: 09/27/2024 10:14 Note Text: [facility] Subjective Chan Burciaga is [...] of care. This note was generated using Quantapore software. It may contain errors in wording, punctuation, or spelling. Sean Verduzco APRN.SHELBY History and Record Review Clinical information obtained from an independent historian. History obtained from or confirmed by: other (see comments) and parent. External record(s) reviewed: prior outpatient record. Disposition The [facility] was [facility] History of Present illness Narrative* Sean [...] plan of care. This note was generated usingQuantapore software. It may contain errors in wording, punctuation, or spelling. Sean Verduzco APRN.TIP BANDER History and Record Review Clinical information obtained from an independent historian. History obtained from or confirmed by:other (see comments) and parent. External record(s) reviewed: prior outpatient record. Disposition The patient was discharged. Procedures documented in [facility] Telephone encounter Note * Telephone Encounter - Barb Leung MA - 08/20/2024 9:00 AM EDT Prescription Request: Last medication check: 10/24/2023 Last physical exam: 04/20/2024 Next scheduled appointment: 10/15/2024 CSA on file (date): N/A Last urine drug screen: N/A Last date of refill on this medication [id number] Miscellaneous Notes* Telephone Encounter - Barb Leung MA - 08/20/2024 9:00 AM EDT Prescription Request: Last medication check: 10/24/2023 Last physical exam: 04/20/2024 Next scheduled appointment: 10/15/2024 CSA on file (date): N/A Last urine drug screen: N/A Last date of refill on this medication 05/01/2024 documented [facility] this [facility]04-07-2025 Telephone encounter Note* Telephone Encounter - Carmella Morrison - 08/10/2024 1:27 PM EDT Error [facility] HospitalRatuwv57-38-3931 Miscellaneous Notes* Telephone Encounter - Carmella Morrison - 08/10/2024 1:27 PM EDT Error documented in this [facility]03-20-2025 Telephone encounter Note* Telephone Encounter - [...] prior to picking up the medication: Yes [facility] HospitalKcgqff18-98-9840 Miscellaneous Notes* Telephone Encounter - Geovanna Rebollar [...] up the medication: Yes documented in this [facility]03-11-2025 Telephone encounter Note* Telephone Encounter - [...] prior to picking up the medication: Yes [facility] HospitalYqqtpb72-87-8743 Miscellaneous Notes* Telephone Encounter - Lucila Malik [...] up the medication: Yes documented in this [facility]SMet[facility] CenterJykcsi99-65-0601 Telephone encounter Note* Telephone Encounter - Antonella Silva MA - 06/23/2024 10:22 AM EST Prescription Request: Last medication check: 10/24/2023 Last physical exam: 04/20/2024 Next scheduled appointment: 10/20/2024 Last date of refill on this medication: 06/04/23 [facility] HospitalXnjaea86-56-9301 Miscellaneous Notes* Telephone Encounter - Antonella Silva MA - 06/23/2024 10:22 AM EST Prescription Request: Last medication check: 10/24/2023 Last physical exam: 04/20/2024 Next scheduled appointment: 10/20/2024 Last date of refill on this medication: 06/04/23 documented in this [facility]12-30-2024 Telephone encounter Note* Telephone Encounter - YANNICK Jones CNP - 05/04/2024 9:45 AM EST Reviewed chart. Refill appropriate. RX sent. [facility] HospitalMgaadh51-08-0714 Miscellaneous Notes* Telephone Encounter - YANNICK Jones CNP - 05/04/2024 9:45 AM EST Reviewed chart. Refill appropriate. RX sent. * Telephone Encounter - Rizwana Gupta MA - 05/04/2024 9:43 AM EST [facility] requesting refill for Folic Acid 400mcg for 9 days w/1 refill. Prescription Request: Last medication check: 10/24/2023 Last physical exam: 04/20/2024 Next scheduled appointment: 10/20/2024 Last date of refill on this medication: 12/03/2023 documented in this [facility]12-30-2024 Telephone encounter Note* Telephone Encounter - Rizwana Gupta MA - 05/04/2024 9:43 AM EST [facility] requesting refill for Folic Acid 400mcg for 9 days w/1 refill. Prescription Request: Last medication check: 10/24/2023 Last physical exam: 04/20/2024 Next scheduled appointment: 10/20/2024 Last date of refill on this medication: 12/03/2023 [facility] HospitalCfmngz92-54-8016 Telephone encounter Note* Telephone Encounter - YANNICK Jones CNP - 05/01/2024 11:31 AM EST Reviewed chart. Refill appropriate. RX sent. [place] [id number] Miscellaneous Notes* Telephone Encounter - YANNICK Jones CNP - 05/01/2024 11:31 AM EST Reviewed chart. Refill appropriate. RX sent. * Telephone Encounter - Lexus Landrum MA - 05/01/2024 10:04 AM EST Prescription Request: Last medication check: 10/24/23 Last physical exam: 04/20/24 Next scheduled appointment: 10/20/24 Last date of refill on this medication 12/03/23 90 day 1 refill documented in this [facility]12-27-2024 Telephone encounter Note* Telephone Encounter - Lexus Landrum MA - 05/01/2024 10:04 AM EST Prescription Request: Last medication check: 10/24/23 Last physical exam: 04/20/24 Next scheduled appointment: 10/20/24 Last date of refill on this medication 12/03/23 90 day 1 refill [place] [id number] Evaluation + Plan note* Assessment & Plan Note - Ramiro Rosa MD - 04/20/2024 12:50 PM ESTAssociated Problem(s): Seasonal allergic rhinitis due to pollen Stable, continue Flonase and Claritin. [facility] HospitalQliklo16-50-2398 Evaluation + Plan note* Assessment & Plan Note - Ramiro Rosa MD - 04/20/2024 12:50 PM ESTAssociated Problem(s): Recurrent major depressive disorder, in full remission (HCC) Stable, managed by psych continue current medications [facility] HospitalFjereb40-09-6382 Miscellaneous Notes* Assessment & Plan Note - [...] on sleep sleep study documented in this [facility]12-16-2024 Evaluation + Plan note* Assessment & Plan Note - Ramiro Rosa MD - 04/20/2024 12:49 PM EST Associated Problem(s): Intellectual disability Stable, no current problem [facility] HospitalYfsuie82-57-3237 Evaluation + Plan note* Assessment & Plan Note - Ramiro Rosa MD - 04/20/2024 12:49 PM ESTAssociated Problem(s): Hyperlipidemia LDL goal <100 controlled, continue a atorvastatin 40 mg daily and fenofibrate 145 mg daily [facility] HospitalOawetz50-60-8712 Evaluation + Plan note* Assessment & Plan Note - Ramiro Rosa MD - 04/20/2024 12:48 PM ESTAssociated Problem(s): Essential hypertension Can roll, continue clonidine 0.2 mg, doxazosin 2 mg losartan 100 mg [place] [id number] Evaluation + Plan note* Assessment & Plan Note - Ramiro Rosa MD - 04/20/2024 12:48 PM ESTAssociated Problem(s): Loud snoring Stable, no sleep apnea on sleep sleep study AviacommApaomr80-68-4410 History of Present illness Narrative* Lexus Landrum [...] intellectual disability and he lives in a ch[facility]. He has hypertension and his blood pressure [...] MD 04/20/2024 12:50 PM documented in this [facility]12-02-2024 Telephone encounter Note* Telephone Encounter - YANNICK Jones CNP - 04/06/2024 2:12 PM EST Reviewed chart. Refill appropriate. RX sent. [facility] HospitalNxxuop52-34-7130 Miscellaneous Notes* Telephone Encounter - YANNICK Jones CNP - 04/06/2024 2:12 PM EST Reviewed chart. Refill appropriate. RX sent. * Telephone Encounter - Rizwana Gupta MA - 04/06/2024 1:37 PM EST Prescription Request: Last medication check: 10/24/2023 Last physical exam: 04/18/2023 Next scheduled appointment: 04/20/2024 Last date of refill on this medication: 11/12/2023 documented in this [facility]12-02-2024 Telephone encounter Note* Telephone Encounter - Rizwana Gupta MA - 04/06/2024 1:37 PM EST Prescription Request: Last medication check: 10/24/2023 Last physical exam: 04/18/2023 Next scheduled appointment: 04/20/2024 Last date of refill on this medication: 11/12/2023 [facility] HospitalWdibdp28-51-0649 Telephone encounter Note* Telephone Encounter - YANNICK Jones CNP - 02/03/2024 10:05 AM EDT [facility] HospitalNstxkk97-69-6071 Miscellaneous Notes* Telephone Encounter - YANNICK Jones CNP - 02/03/2024 10:05 AM EDT * Telephone Encounter - Rizwana Gupta MA - 02/03/2024 9:28 AM EDT Pharmacy requesting refill. Prescription Request: Last medication check: 10/24/2023 Last physical exam: 04/18/2023 Next scheduled appointment: 04/20/2024 Last date of refill on this medication: 03/29/2023 documented in this [facility]SM[facility] CenterGytdgi58-12-0171 Telephone encounter Note* Telephone Encounter - Rizwana Gupta MA - 02/03/2024 9:28 AM EDT Pharmacy requesting refill. Prescription Request: Last medication check: 10/24/2023 Last physical exam: 04/18/2023 Next scheduled appointment: 04/20/2024 Last date of refill on this medication: 03/29/2023 [facility] HospitalExestg34-88-1675 Telephone encounter Note* Telephone Encounter - Lynn [...] relayed to the patient from encounter: Yes [place] [id number] Miscellaneous Notes* Telephone Encounter - Lynn Watts - 01/17/2024 11:08 AM EDT Message released to patient as written. Coco Cheema APRN - [place] 01/16/2024 9:02 PM EDT Home sleep study demonstrates no sleep related disorder- no sleep apnea detected. Patient's further questions if applicable: Iesha, patient's caregiver voiced understanding, no further questions or concerns at this time. Were all questions from office addressed or relayed to the patient from encounter: Yes documented in this [facility]08-15-2024 [facility] Medical Records Department [address] [place] [address] History Physical Exam 12/19/23 1005 MR#: [id number] Acct: [id number] Name: CHAN BURCIAGA Rep #: [id number] : 1980 43 From: Michael Friend DO PCP: Dr. Ramiro Rosa MD Status:[facility] Location: [place] [address] HPI - General General Date of Admission: 12/19/23 Date of Service: 12/19/23 Chief Complaint: Screening colonoscopy HPI Narrative CHAN BURCIAGA, is a 43 M who presents today for screening colonoscopy. He is never had a colonoscopy in the past. He does not have any abdominal pain, chest pain or shortness of breath. [facility] Medical History (Updated 12/16/23 @ 15:42 by Debora Wong) Lives in chcf Arthritis Back pain Non-smoker Shortness of breath [...] History mg-400 unit-5,000 unit/gram top oint (Neosporin (bqs-fsl-jbokg)) oxcarbazepine 600 mg tablet 600 mg PO [...] 12/19/23 09:20 12/19/23 09: (more content not included)...[facility]08-15-2024 Telephone encounter Note* Telephone Encounter - Lexus Landrum MA - 12/19/2023 7:45 AM EDT Prescription Request: Last medication check: 10/24/23 Last physical exam: 04/18/23 Next scheduled appointment: 04/20/24 Last date of refill on this medication 06/07/23 [facility] HospitalUmnvil83-42-4066 Miscellaneous Notes* Telephone Encounter - Lexus Landrum MA - 12/19/2023 7:45 AM EDT Prescription Request: Last medication check: 10/24/23 Last physical exam: 04/18/23 Next scheduled appointment: 04/20/24 Last date of refill on this medication 06/07/23 documented in [facility]07-30-2024 Telephone encounter Note* Telephone Encounter - YANNICK Jones CNP - 12/03/2023 5:32 PM EDT Reviewed chart. Refill appropriate. RX sent. [facility] HospitalJglgbw15-49-9951 Miscellaneous Notes* Telephone Encounter - YANNICK Jones CNP - 12/03/2023 5:32 PM EDT Reviewed chart. Refill appropriate. RX sent. * Telephone Encounter - Puja White - 12/03/2023 4:40 PM EDT Prescription Request: Last medication check: 10/24/23 Last physical exam: 04/18/23 Next scheduled appointment: 01/09/24 Last date of refill on this medication 06/26/23 documented in this [facility]07-30-2024 Telephone encounter Note* Telephone Encounter - Puja White - 12/03/2023 4:40 PM EDT Prescription Request: Last medication check: 10/24/23 Last physical exam: 04/18/23 Next scheduled appointment: 01/09/24 Last date of refill on this medication 06/26/23 [facility] HospitalMlcrbc34-28-4367 Telephone encounter Note* Telephone Encounter - Lexus Landrum MA - 11/12/2023 7:05 AM EDT Prescription Request: Last medication check: 10/24/23 Last physical exam: 04/18/23 Next scheduled appointment: 04/20/24 Last date of refill on this medication 06/04/23 [facility] HospitalGanugd12-91-2390 Miscellaneous Notes* Telephone Encounter - Lexus Landrum MA - 11/12/2023 7:05 AM EDT Prescription Request: Last medication check: 10/24/23 Last physical exam: 04/18/23 Next scheduled appointment: 04/20/24 Last date of refill on this medication 06/04/23 documented in this encounterSMetro[facility] CenterUhocfd16-31-7105 Evaluation + Plan note* Assessment & Plan Note - Ramiro Rosa MD - 10/24/2023 11:48 AM EDT Associated Problem(s): Seasonal allergic rhinitis due to pollen Stable, continue Claritin and Flonase. [facility] HospitalHasuzz90-80-4898 Evaluation + Plan note* Assessment & Plan Note - Ramiro Rosa MD - 10/24/2023 11:48 AM EDTAssociated Problem(s): Recurrent major depressive disorder, in full remission (HCC) Remission, continue Seroquel 150 mg nightly [facility] HospitalTbrsyx51-69-1749 Miscellaneous Notes* Assessment & Plan Note - [...] for home sleep study. documented in this [facility]06-20-2024 Evaluation + Plan note* Assessment & Plan Note - Ramiro Rosa MD - 10/24/2023 11:47 AM EDT Associated Problem(s): Hyperlipidemia LDL goal <100 Controlled, continue atorvastatin 40 mg daily and fenofibrate 100 mg daily [facility] HospitalRafocr71-48-0835 Evaluation + Plan note* Assessment & Plan Note - Ramiro Rosa MD - 10/24/2023 11:46 AM EDTAssociated Problem(s): Essential hypertension Controlled, continue doxazosin 2 mg, clonidine 0.2 mg twice a day and losartan 100 mg daily [facility] HospitalNetefe58-14-1421 Evaluation + Plan note* Assessment & Plan Note - Ramiro Rosa MD - 10/24/2023 11:45 AM EDTAssociated Problem(s): Loud snoring Order home sleep study. [facility] HospitalPpcods82-36-3758 Evaluation + Plan note* Assessment & Plan Note - Ramiro Rosa MD - 10/24/2023 11:45 AM EDTAssociated Problem(s): MILAGROS (obstructive sleep apnea) Witnessed apneic episodes, will schedule patient for home sleep study. [facility] HospitalXatnjv89-67-7097 History of Present illness Narrative* Lexus Landrum [...] (around 04/24/2024) for annual. SUBJECTIVE/OBJECTIVE: MIGUEL ÁNGEL -Chan comes in today for 6-month follow-up on his multiple health issues which include hypertension which is well-controlled today, hyperlipidemia, depression which is in full remission seasonalallergies and his grounds caretaker that is with him said they were [...] MD 10/24/2023 11:50 AM documented in this [facility]05-24-2024 Evaluation + Plan note* Assessment & Plan Note - Ramiro Rosa MD - 09/27/2023 12:24 PM EDT Associated Problem(s): Chronic midline low back pain without sciatica Will refill his nabumetone and he is to take that regularly twice a day for up to 1 to 2 weeks. Rx sent if we need to we will send him back to physical therapy. [facility] HospitalAtwxzc31-85-4720 Miscellaneous Notes* Assessment & Plan Note - Ramiro Rosa MD - 09/27/2023 12:24 PM EDTAssociated Problem(s): Chronic midline low back pain without sciatica Will refill his nabumetone and he is to take that regularly twice a day for up to 1 to 2 weeks. Rx sent if we need to we will send him back to physical therapy. documented in this [facility]05-24-2024 History of Present illness Narrative* Lexus [...] MD 09/27/2023 12:24 PM documented in this [facility]04-21-2024 Discharge summary Author Milly Andrew [facility] August 25, 2023 9:15pm Note Date/Time August 25, 2023 9:1 5pm [facility] Physical Therapy [facility] [address] [place] [address] [address] [place] [address] / REHABILITATION SERVICES DISCHARGE SUMMARY MR#: [id number] Acct: [id number] Name: CHAN BURCIAGA Rep #: [id number] : 1980 42 From: Milly Andrew PT, [...] BETTER. HE IS APPROPRIATE FOR DISCHARGE TO [facility] AT THIS TIME. UPON EXAM TODAY: [...] please feel free to call me at [phone]. Thank you for the referral of thispatient. Sincerely, Milly Andrew, PT, Cert MDT Balance/Gait/Functional tests Balance/Special Test Scores Oswestry Low Back Score: 8 30 Second Chair Rise Test Seconds: 16 Improvement % Improvement: 50 <Electronically signed by Milly Andrew PT, Cert. MDT> 08/25/232114 CC: Dr. Ramiro Rosa MD ~ MERY Signed [facility] Work Phone: 1(548) 229-447503-07-2024 Telephone encounter Note* Telephone Encounter - Puja White - 07/11/2023 8:27 AM EST Prescription Request: Last medication check: 10/18/22 Last physical exam: 04/18/23 Next scheduled appointment: 10/24/23 Last date of refill on this medication 01/08/23 [facility] HospitalUgylxx81-76-5079 Miscellaneous Notes* Telephone Encounter - Puja White - 07/11/2023 8:27 AM EST Prescription Request: Last medication check: 10/18/22 Last physical exam: 04/18/23 Next scheduled appointment: 10/24/23 Last date of refill on this medication 01/08/23 documented in this [facility]02-27-2024 Telephone encounter Note* Telephone Encounter - Puja White - 07/02/2023 12:04 PM EST Prescription Request: Last medication check: 10/18/22 Last physical exam: 04/18/23 Next scheduled appointment: 10/24/23 Last date of refill on this medication 08/08/22 [facility] HospitalYdokox30-70-3737 Miscellaneous Notes* Telephone Encounter - Puja White - 07/02/2023 12:04 PM EST Prescription Request: Last medication check: 10/18/22 Last physical exam: 04/18/23 Next scheduled appointment: 10/24/23 Last date of refill on this medication 08/08/22 documented in this [facility]02-02-2024 Telephone encounter Note* Telephone Encounter - Puja White - 06/07/2023 8:01 AM EST Prescription Request: Last medication check: 10/18/22 Last physical exam: 04/18/23 Next scheduled appointment: 10/24/23 Last date of refill on this medication 08/08/22 [facility] HospitalEonels67-54-7170 Miscellaneous Notes* Telephone Encounter - Puja White - 06/07/2023 8:01 AM EST Prescription Request: Last medication check: 10/18/22 Last physical exam: 04/18/23 Next scheduled appointment: 10/24/23 Last date of refill on this medication 08/08/22 documented in this [facility]12-20-2023 Telephone encounter Note* Telephone Encounter - Antonella Silva MA - 04/24/2023 11:30 AM EST Prescription Request: Last medication check: 10/18/22 Last physical exam: 04/18/23 Next scheduled appointment: 10/24/2023 Last date of refill on this medication: 02/19/22 [place] [id number] Miscellaneous Notes* Telephone Encounter - Antonella Silva MA - 04/24/2023 11:30 AM EST Prescription Request: Last medication check: 10/18/22 Last physical exam: 04/18/23 Next scheduled appointment: 10/24/2023 Last date of refill on this medication: 02/19/22 documented in this [facility]12-14-2023 Evaluation + Plan note* Assessment & Plan Note - Ramiro Rosa MD - 04/18/2023 10:35 AM EST Associated Problem(s): Chronic midline low back pain without sciatica Continue nabumetone and will start him in physical therapy. [address]Dcjuym26-99-4351 Miscellaneous Notes* Assessment & Plan Note - [...] and losartan 100 mg documented in this [facility]12-14-2023 Evaluation + Plan note* Assessment & Plan Note - Ramiro Rosa MD - 04/18/2023 10:34 AM EST Associated Problem(s): Hyperlipidemia LDL goal <100 Controlled, continue atorvastatin 40 mg daily and fenofibrate 145 mg daily [facility] Hlukol09-85-8390 Evaluation + Plan note* Assessment & Plan Note - Ramiro Rosa MD - 04/18/2023 10:34 AM ESTAssociated Problem(s): Intellectual disability Stable, no significant change [facility] Jfqdqx15-54-3290 Evaluation + Plan note* Assessment & Plan Note - Ramiro Rosa MD - 04/18/2023 10:33 AM ESTAssociated Problem(s): Recurrent major depressive disorder, in full remission (HCC) Remission, continue Trileptal and Seroquel, these are managed by psych [facility] Wglduw31-19-7663 Evaluation + Plan note* Assessment & Plan Note - Ramiro Rosa MD - 04/18/2023 10:33 AM ESTAssociated Problem(s): Seasonal allergic rhinitis due to pollen Currently stable, continue allergy medicines as needed. [facility] Hwfdwh56-92-5311 Evaluation + Plan note* Assessment & Plan Note - Ramiro Rosa MD - 04/18/2023 10:33 AM ESTAssociated Problem(s): Essential hypertension Controlled, continue clonidine 0.2 mg, doxazosin 2 mg and losartan 100 mg [facility] Rjzjkp64-69-0139 History of Present illness Narrative* ALVAREZ Katz 04/18/2023 9:30 AM EST Patient was verified [...] Healthy male, fill out paperwork for his [facility] 2. Essential hypertension Assessment & Plan: Controlled, [...] MD 04/18/2023 10:35 AM documented in this [facility]11-24-2023 Telephone encounter Note* Telephone Encounter - YANNICK Jones CNP - 03/29/2023 11:06 AM EST Reviewed chart. Refill appropriate. RX sent. [facility] HospitalNctrgg41-09-8424 Miscellaneous Notes* Telephone Encounter - YANNICK Jones CNP - 03/29/2023 11:06 AM EST Reviewed chart. Refill appropriate. RX sent. * Telephone Encounter - Antonella Silva MA - 03/29/2023 11:04 AM EST Prescription Request: Last medication check: 10/18/22 Last physical exam: 04/19/22 Next scheduled appointment: 04/18/23 Last date of refill on this medication 8.4.23 documented in this [facility]11-24-2023 Telephone encounter Note* Telephone Encounter - Antonella Silva MA - 03/29/2023 11:04 AM EST Prescription Request: Last medication check: 10/18/22 Last physical exam: 04/19/22 Next scheduled appointment: 04/18/23 Last date of refill on this medication 8.4.23 [facility] HospitalJczkbc41-55-5801 Telephone encounter Note* Telephone Encounter - Ramiro Rosa MD - 02/18/2023 4:11 PM EDT Okay, thank you [facility] HospitalAcpptk25-35-3007 Miscellaneous Notes* Telephone Encounter - Ramiro Rosa MD - 02/18/2023 4:11 PM EDT Okay, thank you * Telephone Encounter - nAtonella Silva MA - 02/18/2023 3:46 PM EDT [...] EDT S: Patient's caregiver Iesha spoke with [facility] nurse regarding toe injury B: Onset of [...] are no appointments available this week that [facility] nurse can schedule. Offered first available which is 02-25-23. Declined stating that pt has an appointment on that day with his foot doctor. Asking if there is anyway for him to be seen this week. R: TE sent to the office for review. Please contact Iesha at [phone] if able to be seen sooner or with further interventions. Advised to keep covered with antibiotic ointment. Ice if painful.Understands care advice. Instructed to call back with new or worsening symptoms. Reason for Disposition Toenail is completely torn off Protocols used: Toe Qzoxyi-JOZPF-XL documented in this encounterSMetroHealth [facility] [id number] Telephone encounter Note* Telephone Encounter - Antonella Silva MA - 02/18/2023 3:46 PM EDT Notified, states he went to urgent care today but will keep appt on 02/25/23 with the foot doctor as well. [place] [id number] Telephone encounter Note* Telephone Encounter - Ramiro Rosa MD - 02/18/2023 3:45 PM EDT If he has an appointment on the with the foot doctor he should keep that. [facility] [id number] History of Present illness Narrative* Yulia Lujan APRN.TIP BANDER - 02/18/2023 3:00 PM EDT This note was created using [employer]. Subjective Chan Burciaga is a 42 year old male. 42 year old male with PMH mild ID, impulse control, NOS, mycotic toenails, hyperlipidemia, and organic brain delusional personality disorder presents for complaints of toe pain. Acute onset 0130 today He ripped his toenail off, citing that he has a habit of doing same. States bored and nothing to do Accompanied by staff of [facility], where patient resides, citing he has done similar in past. He has a cash person, and appt made for next week. Wanted to get him checked out Staff applied topical ATB cream No fever or chills No active bleeding Pain when he puts on his tennis shoes. The history is provided by the patient and a caregiver. The history is limited by a developmental delay. No foreign language teacher was used. Pain (foot) Pain location: [...] mg tablet Take 500 mg by mouth. Qvtxblom-XydsuxucwZb-Ousjpgbrb 3.5-500-10,000 js-yiqg-odjx oint APPLY TOPICALLY TO INSIDE OF NOSE 3TIMES DAILY NEEDED FOR DRY PATCHES omega 8-xwb-fna-fish oil 300 mg-100 mg- 150 mg-1,000 mg [...] with podiatry in 2 weeks Yulia Lujan APRN.TIP BANDER documented in this encounterC[facility]2023 Telephone encounter Note * Telephone Encounter - Milly Miller RN - 02/18/2023 12:27 PM EDT S: Patient's caregiver Iesha spoke with [facility] nurse regarding toe injury B: Onset of [...] are no appointments available this week that [facility] nurse can schedule. Offered first available which is 02-25-23. Declined stating that pt has an appointment on that day with his foot doctor. Asking if there is anyway for him to be seen this week. R: TE sent to the office for review. Please contact Iesha at [phone] if able to be seen sooner or with further interventions. Advised to keep covered with antibiotic ointment. Ice if painful.Understands care advice. Instructed to call back with new or worsening symptoms. Reason for Disposition Toenail is completely torn off Protocols used: Toe Rcsdyb-BVETU-SC [facility] [id number] Telephone encounter Note* Telephone Encounter - Cindi Fisher MA - 01/08/2023 11:18 AM EDT Prescription Request: Last medication check: 10/18/22 Last physical exam: 04/19/22 Next scheduled appointment: 04/18/23 Last date of refill on this medication 07/09/22 31 days 5 refills [facility] HospitalAfyecm20-46-1428 Miscellaneous Notes* Telephone Encounter - Cindi Fisher MA - 01/08/2023 11:18 AM EDT Prescription Request: Last medication check: 10/18/22 Last physical exam: 04/19/22 Next scheduled appointment: 04/18/23 Last date of refill on this medication 07/09/22 31 days 5 refills documented in this encounterSMetroHealth [facility] [id number] Telephone encounter Note* Telephone Encounter - Cindi Fisher MA - 12/07/2022 6:51 AM EDT Prescription Request: Last medication check: 10/18/22 Last physical exam: 04/19/22 Next scheduled appointment: 04/18/23 Last date of refill on this medication 08/14/22 16g 3 refills [facility] [id number] Miscellaneous Notes* Telephone Encounter - Cindi Fisher MA - 12/07/2022 6:51 AM EDT Prescription Request: Last medication check: 10/18/22 Last physical exam: 04/19/22 Next scheduled appointment: 04/18/23 Last date of refill on this medication 08/14/22 16g 3 refills [facility] this [facility]06-29-2023 Telephone encounter Note* Telephone Encounter - Antonella Silva MA - 11/01/2022 10:58 AM EDT Prescription Request: Last medication check: 10/18/22 Last physical exam: 04/19/22 Next scheduled appointment: 04/18/23 Last date of refill on this medication: 05/15/22 [facility] HospitalLdtfyu14-70-7439 Miscellaneous Notes* Telephone Encounter - Antonella Silva MA - 11/01/2022 10:58 AM EDT Prescription Request: Last medication check: 10/18/22 Last physical exam: 04/19/22 Next scheduled appointment: 04/18/23 Last date of refill on this medication: 05/15/22 documented in this [facility] Telephone encounter Note* Telephone Encounter - Azul Walters - 10/25/2022 3:00 PM EDT Message released to patient as written. Patient's further questions if applicable: Yes Iesha states she has a new # [phone]. Iesha states they need the order for the prescription faxed to their office at [phone]. Stating the patient should take the medication once every 12 hours as needed for pain. Please advise. Were all questions from office addressed or relayed to the patient from encounter: Yes [facility] HospitalAjtdru77-10-2976 Miscellaneous Notes* Telephone Encounter - Azul Walters - 10/25/2022 3:00 PM EDT Message released to patient as written. Patient's further questions if applicable: Yes Iesha states she has a new # [phone]. Iesha states they need the order for the prescription faxed to their office at [phone]. Stating the patient should take the medication [...] were not included. YANNICK Deal CNP Clinical Guitar Repairer 23 hours ago (8:32 AM) HL It [...] were not included. YANNICK Deal CNP Clinical Guitar Repairer 8 minutes ago (8:32 AM) HL It [...] 2:14 PM EDT Name of caller: Iesha Viraj Contact phone number: [phone] Relationship to Patient: State Federal Relations Deputy Director, Senior Living Provider: Dr. Rosa Practice: [facility] [...] order and to please fax this to: [phone] Attn: Laureen Gilmore. Please advise. Thank you. Best time of day caller can be reached: Any Patient advised that office/PCP has 24-48 business hours to return their call: Yes documented in this [facility]06-[facility]-20[facility] Telephone encounter Note* Telephone Encounter - Antonella Silva MA - 10/24/2022 9:17 AM EDT Called Iesha, no answer and no vm. [facility] HospitalXugllo09-66-2474 Telephone encounter Note* Telephone Encounter - Antonella Silva MA - 10/23/2022 8:20 AM EDT Images from the original note were not included. YANNICK Deal CNP mg [facility]ine Clinical Guitar Repairer 23 hours ago (8:32 AM) HL It was sent for 60 tablets. Even though it was sent saying twice a day he can use it twice a day, which is every 12 hours, as needed. Called Iesha, no answer and no vm. [facility] HospitalDkligq29-76-1853 Telephone encounter Note* Telephone Encounter - Antonella Silva MA - 10/22/2022 8:41 AM EDT Images from the original note were not included. YANNICK Deal CNP Clinical Guitar Repairer 8 minutes ago (8:32 AM) HL It was sent for 60 tablets. Even though it was sent saying twice a day he can use it twice a day, which is every 12 hours, as needed. I called Iesha back, no answer and vm is not set up. [facility] HospitalAgifjw78-43-5096 Telephone encounter Note* Telephone Encounter - YANNICK Deal CNP - 10/22/2022 8:32 AM EDT It was sent for 60 tablets. Even though it was sent saying twice a day he can use it twice a day, which is every 12 hours, as needed. [facility] HospitalRclqcy28-54-9463 Telephone encounter Note* Telephone Encounter - Madelin MaguireJose Manuel Puentes - 10/19/2022 2:14 PM EDT Name of caller: Iesha Cali Contact phone number: [phone] Relationship to Patient: State Federal Relations Deputy Director, Senior Living Provider: Dr. Rosa Practice: [facility] [...] order and to please fax this to: [phone] Attn: Laureen Gilmore. Please advise. Thank you. Best time of day caller can be reached: Any Patient advised that office/PCP has 24-48 business hours to return their call: Yes [facility] [id number] Evaluation + Plan note* Assessment & Plan Note - Ramiro Rosa MD - 10/18/2022 4:30 PM EDTAssociated Problem(s): Recurrent major depressive disorder, in full remission (HCC) Remission, continue Trileptal and Seroquel as prescribed by his psych. [facility] HospitalJaexpx02-03-4364 Evaluation + Plan note* Assessment & Plan Note - Ramiro Rosa MD - 10/18/2022 4:30 PM EDTAssociated Problem(s): Hyperlipidemia LDL goal <100 Controlled, continue atorvastatin 40 mg daily and fenofibrate 145 mg daily [facility] [id number] Evaluation + Plan note* Assessment & Plan Note - Ramiro Rosa MD - 10/18/2022 4:30 PM EDTAssociated Problem(s): Acute midline low back pain without sciatica Comes and goes, we will get him a refill on his nabumetone to be used twice a day as needed. [facility] HospitalYdswge27-55-1273 Miscellaneous Notes* Assessment & Plan Note - [...] losartan 100 mg daily documented in this [facility]06-15-2023 Evaluation + Plan note* Assessment & Plan Note - Ramiro Rosa MD - 10/18/2022 4:29 PM EDT Associated Problem(s): Essential hypertension Controlled, continue losartan 100 mg daily [facility] CenterGqhnrz87-43-1993 History of Present illness Narrative* Lexus Landrum MA - 10/18/2022 2:15 PM EDT Patient verified by last name and date of . Patient wants a rhic systems safety engineer in the room during during the visit. no Stove Polisher na [place] in room during visit * [...] MD 10/18/2022 4:31 PM documented in this [facility]04-24-2023 Evaluation + Plan note* Assessment & Plan Note - Ramiro Rosa MD - 08/27/2022 12:35 PM EDT Associated Problem(s): Acute midline low back pain without sciatica We will send him for x-rays of his lumbar spine. Nabumetone 500 mg twice a day for up to 7 days and he can use Tylenol in addition to that. [facility] HospitalXbpfta64-16-9021 Miscellaneous Notes* Assessment & Plan Note - Ramiro Rosa MD - 08/27/2022 12:35 PM EDTAssociated Problem(s): Acute midline low back pain without sciatica We will send him for x-rays of his lumbar spine. Nabumetone 500 mg twice a day for up to 7 days and he can use Tylenol in addition to that. documented in this [facility]04-24-2023 History of Present illness Narrative* Ramiro Rosa MD - 08/27/2022 9:45 AM EDT Images from the original note were not included. 08/27/2022 Chan Burciaga (: 1980) is a 41 y.o. male , Established patient, here for evaluation of thefolling chief complaint(s): Back Pain (For last week [...] MD 08/27/2022 12:36 PM documented in this encounterSMetroHealth [facility] Medical CenterCaiclo76-86-6103 Telephone encounter Note* Telephone Encounter - YANNICK Jones CNP - 08/08/2022 9:05 AM EDT Reviewed chart. Refill appropriate. RX sent. [facility] HospitalVaduuz35-88-0984 Miscellaneous Notes* Telephone Encounter - YANNICK Jones [...] 90 day 1 refill documented in this [facility]04-05-2023 Telephone encounter Note* Telephone Encounter - Lexus Landrum MA - 08/08/2022 8:23 AM EDT Prescription Request: Last medication check: 10/12/21 Last physical exam: 04/19/22 Next scheduled appointment: 10/18/22 CSA on file (date): na Last urine drug screen: na Last date of refill on this medication 02/19/22 loratadine, folic acid, fenofibrate, multivitamin, omega 3 all 1month 5 refills 04/19/22 atorvastatin 90 day 1 refill [facility] HospitalCdmudk74-32-3377 Telephone encounter Note* Telephone Encounter - YANNICK Deal CNP - 07/09/2022 2:58 PM EST Rx sent. Follow up as scheduled. [facility] HospitalGuwsvj60-74-3361 Miscellaneous Notes* Telephone Encounter - YANNICK Deal [...] 90 day 1 refill documented in this encounterSMetroHealth [facility] CenterWjzqzz37-63-1816 Telephone encounter Note* Telephone Encounter - Lexus Landrum MA - 07/09/2022 7:23 AM EST Prescription Request: Last medication check: 10/12/21 Last physical exam: 04/19/22 Next scheduled appointment: 10/18/22 CSA on file (date): na Last urine drug screen: na Last date of refill on this medication 02/26/22 90 day 1 refill [facility] HospitalHjyhmc79-85-4751 Telephone encounter Note* Telephone Encounter - Cindi Fisher - 05/04/2022 12:42 PM EST Iesha notified. 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 Blood pressures remain elevated. Increase losartan to 100 mg and monitor blood pressure daily, provide readings to office in 2 weeks. Will sent new rx [facility] Sizdje20-72-6057 Telephone encounter Note* Telephone Encounter - Dmitry Benedict - 05/04/2022 11:05 AM EST URGENT: PATIENT WILL BE OUT OF BP MEDICATION THIS WEEKEND. 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 [facility] Provider: Dr Rosa Practice: [facility] Chief Complaint/Reason for Call: Caller sent [...] business hours to return their call: Yes [facility] complaint+Reason for visit Narrative* Chief Complaint COVID COVID TEST Reason for Visit COVID-19 [facility] Work Phone: [place] complaint+Reason for visit Narrative* Chief Complaint COVID COVID TEST HTN Reason for Visit COVID-19 [facility] Work Phone: Discharge summary Author Austin Mares [facility] Note Date/Time October 09, 2024 3:53p m [facility] Medical Records Department [address] [place] [address] Instructions for Home/Discharge Instructions 10/09/24 1545 MR#: [id number] Acct: [id number] Name: CHAN BURCIAGA Rep #:[id number] : 1980 43 From: Austin avalos MD [...] risk with narcotics therefore I do recommend mtlo-pcj-bkkuqkr stool softeners while taking narcotics. Discharge Orders/Prescriptions [...] mg tablet 600 mg PO BID Neosporin (zrg-iyp-ohcak) 3.5mg-400 unit- 5,000 unit/gram ointment 1 applic [...] can be placed): Home, Self Care 10/09/24 5665<Electronically signed by Austin Mares MD>Austin Mares MD CC: Dr. Yamileth Aguirre MD; Dr. Ramiro Rosa MD; Dr. Salvador Rush MD ~ Signed [facility] Work Phone: Discharge summary Author Austin Mares [facility] Note Date/Time October 09, 2024 4:15p m [facility] Medical Records Department [address] [place] [address] Discharge Summary 10/09/24 1608 MR#: [id number] Acct: [id number] Name: CHAN BURCIAGA Rep #:[id number] : 1980 43 From: Austin avalos MD PCP: Dr. 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 w/ PMHx: CKD stage II per GFR trending, HTN, HLD, Anxiety and Depression/Mood disorder, Obesity who presents to the [facility] ED on 10/08/24 with history of abdominal [...] after morphine but discussion with patient and chcf staff he rates his discomfort previously potentially [...] ureteral stone?43-year-old male who resides in a chcf secondary to intellectual debilities presents to the [...] % (Auto) 68.7, Lymph % (Auto) 19.2, Ward% (Auto) 8.0, Eos % (Auto) 2.9, Baso [...] Clarity Cloudy, Urine pH 7.0, Ur Specific [place] 1.010, Urine Protein 30 H, Urine Glucose [...] % (Auto) 53.3, Lymph % (Auto) 31.8, Ward% (Auto) 8.4, Eos % (Auto) 5.5 H, [...] onto the urinary bladder wall. Reading Location: [facility] D/C Instructions Discharge Diet: Low fat / [...] risk with narcotics therefore I do recommend rkpp-unb-ovucyfs stool softeners while taking narcotics. Discharge Orders/Prescriptions [...] mg tablet 600 mg PO BID Neosporin (par-jlf-yofws) 3.5mg-400 unit- 5,000 unit/gram ointment 1 applic [...] Self Care Charges/Coding Visit Charges Inpatient E&M: 43779 Disch Hosp >30min 10/09/24 1615 <Electronically signed by Austin Mares MD> Cosigner Signature (if applicable): CC: Dr. Ramiro Rosa MD; Dr. Austin Mares MD~ Signed [facility] Work Phone: Evaluation note* Diagnosis Onset Date Resolution Status COVID-19 acute [facility] Work Phone: Evaluation noteNo assessment information available [facility] Work Phone: evaluation note* Diagnosis Acute midline low back pain without sciatica- Primary Acute midline low back pain without sciatica documented in this encounter [facility]* Diagnosis Acute midline low back pain without sciatica documented in this encounter [facility]* Diagnosis Essential hypertension- Primary Unspecified essential hypertension Hyperlipidemia LDL goal <100 Other and unspecified hyperlipidemia Recurrent major depressive disorder, in full remission (HCC) Acute midline low back pain without sciatica documented in this encounter [facility]* Diagnosis Seasonal allergic rhinitis due to pollen documented in this encounter [facility]* Diagnosis Toenail torn away- Primary documented in this encounter [facility]* Diagnosis Seasonal allergic rhinitis due to pollen documented [facility] this encounter [facility]* Diagnosis Annual physical exam- Primary [...] pain without sciatica documented in this encounter [facility]Evaluation note* Diagnosis Onset Date Resolution Status Urinary tract infection with hematuria acute [facility] Work Phone: evaluation note* Diagnosis Essential hypertension- Primary Unspecified essential hypertension Hyperlipidemia LDL goal <100 Other and unspecified hyperlipidemia documented in this encounter [facility]Evaluation note* Diagnosis Chronic midline low back pain without sciatica- Primary documented in this encounter [facility] note* Diagnosis Essential hypertension- Primary Unspecified essential hypertension Hyperlipidemia LDL goal <100 Other and unspecified hyperlipidemia Recurrent major depressive disorder, in full remission (HCC) Seasonal allergic rhinitis due to pollen MILAGROS (obstructive sleep apnea) Obstructive sleep apnea (adult) (pediatric) Loud snoring Screening for colon cancer Special screening for malignant neoplasms, colon documented in this encounter [facility]Evaluation note* Diagnosis Hyperlipidemia LDL goal <100 Other and unspecified hyperlipidemia [facility]* Diagnosis Seasonal allergic rhinitis due to pollen documented in this encounter [facility] HealthEvaluation note* Diagnosis MILAGROS (obstructive sleep apnea) Obstructive sleep apnea (adult) (pediatric) Loud snoring [facility] [...] neoplasm of prostate [facility]* Diagnosis Annual physical exam- Primary [...] and unspecified hyperlipidemia [facility]* [...] and unspecified hyperlipidemia documented in this encounter [facility]* Diagnosis Acute cystitis with hematuria- Primary Acute cystitis documented in this encounter [facility]* Diagnosis Annual physical exam- Primary Routine [...] and unspecified hyperlipidemia [facility]* Diagnosis Onset Date Resolution Status Admit Date Abdominal pain acute October 08, 2024 8:03pm History of hypertension acute J 2024 8:03pm Intractable abdominal pain acute October 08, 2024 8:03pm Kidney stone on left side acute October 08, 2024 8:03pm [facility] Work Phone: Evaluation note* Diagnosis Midline low back pain, unspecified chronicity, unspecified whether sciatica present- Primary Abdominal pain, unspecified abdominal location Microscopic hematuria History of kidney stones Personal history of urinary calculi documented [facility] this encounter [facility]* Diagnosis Annual physical exam- Primary Routine [...] Special screening for malignant neoplasm of prostate Essential hypertension- Primary Unspecified essential hypertension Calculus of kidney Hyperlipidemia LDL goal <100 Other and unspecified hyperlipidemia Recurrent major depressive disorder, in full remission (HCC) documented [facility] this encounter [facility] Author Yamileth Aguirre [facility] Note Date/Time October 08, 2024 8:46p [facility] Medical Records Department [address] [place] [address] H&P Exam - Hospitalist 10/08/242001 MR#: [id number] Acct: [id number] Name: MARTIR BURCIAGAN Rep #:[id number] : 1980 43 From: Yamileth Aguirre MD PCP: Dr. Ramiro Rosa MD Status:ADM IN Location: MS3 [id number] HPI - General General Date of Admission: 10/08/24 Date of Service: 10/08/24 Chief Complaint: Abdominal pain, flank pain. 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 EDdiscussed case with urology. [facility] Medical History Lives in chcf Arthritis Back pain Non-smoker Shortness of breath [...] History mg-400 unit-5,000 unit/gram top oint (Neosporin (zfz-bxf-vtvyg)) oxcarbazepine 600 mg tablet 600 mg PO [...] alert, oriented to self, place, recent vents, chcf staff present, remains cooperative, seated upright in [...] currently is baseline intact per discussion with chcf staff, pupils equally reactive to light and [...] % (Auto) 68.7, Lymph % (Auto) 19.2, Ward% (Auto) 8.0, Eos % (Auto) 2.9, Baso [...] Clarity Cloudy, Urine pH 7.0, Ur Specific [place] 1.010, Urine Protein 30 H, Urine Glucose [...] onto the urinary bladder wall. 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 Charges/Coding Visit Charges Inpatient E&M: 86480 Init Hosp L3 10/08/242045 <Electronically signed by Yamileth Aguirre MD> Cosigner Signature (if applicable): CC: Dr. Yamileth Aguirre MD; Dr. Ramiro Rosa MD~ Signed [facility] Work Phone: Hospital Discharge instructions Additional Instructions Constipation is a risk with narcotics therefore I do recommend [id number] stool softeners while taking narcotics.[facility] Work Phone: Reason for referral (narrative)No reason for referral information [facility] Work Phone: Advance Directives No Advanced Directives Records Found Advance Directive Response Recorded Date/ Time Living Will No March 03 12:18pm Power of Business Intelligence Etl Developer No March 03, 2021 12:18pm Advance Directive Response Recorded Date/ Time Living Will No April 17 11:27am Power of Business Intelligence Etl Developer No Daniel 13th, 2022 11:27am Advance Directive Response Recorded Date/ Time Living Will No April 17 12:27pm Power of Business Intelligence Etl Developer No April 17, 2022 12:27pm Advance Directive Response Recorded Date/ Time Do you have a Healthcare Power of Business Intelligence Etl Developer? Yes October 08, 2024 5:01pm Advance Directive Response Recorded Date/ Time Do you have a Healthcare Power of Business Intelligence Etl Developer? 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 Power of Business Intelligence Etl Developer 10/15/2024 11:37 AM Guar dianship papers Reason for Referral Specialty Diagnoses / Procedures Referred By Contac t Referred To Contact Physical Therapy Diagnoses Chronic midline low back pain without sciatica Procedures IA OFFICE/OUTPATIENT [facility] MDM 60-74 MINUTES Ramiro Rosa MD [address] [place] [address] Referral ID Status Reason Start Date Expiration Date Visits Requested Visits Authorized [id number] Pending Review Eval and Treat 3 10/15/2023 99 99 Scheduling Instructions [facility] Specialty Diagnoses / Procedures Referred By Liangac t Referred To Contact Sleep Medicine Diagnoses MILAGROS (obstructive sleep apnea) Loud snoring Procedures Home sleep test Ramiro Rosa MD [address] [place] [address] Referral ID Status Reason Start Date Expiration Date V isits Requested Visits Authorized [id number] Authorized 10/24/2023 10/18/2024 1 1 Specialty Diagnoses / Procedures Referred By Contac t Referred To Contact Gastroenterology Diagnoses Screening for colon cancer Procedures IA OFFICE/OUTPATIENT [facility] MDM 60 [place] [address] [address], [address], [address] [place] [address] Referral ID Status Reason Start Date Expiration Date Visits Requested Visits Authorized [id number] Pending Review Specialty Services Required 10/24/2023 10/23/2024 [...] WITH HYDRON EPHROSIS October 09, 2024 4:08pm Family History No Family History Records Found Relationship Condition Age at Onset Recorded Date/T drew mother Hyperlipidemia Unknown father Hyperlipidemia Unknown Summary Purpose Additional Source Comments Goals (unrecognized section and [...] 02/03/2024 Specialty Diagnoses / Procedures Referred By Di cook Referred To Contact Sleep Medicine Diagnoses MILAGROS (obstructive sleep apnea) Loud snoring Procedures Home sleep test Ramiro Rosa MD [address] [place] [address], [place] [address] Referral ID Status Reason Start Date Expiration Date Visits Re quested Visits Authorized [id number] Closed 10/24/2023 10/18/2024 1 1 Reason Onset [...] pain, lower abd pain x 1 week Reason Comments Follow-up 6m follow up, medica tion check, recent ED visit for kidney stone Care Teams (unrecognized sec tion and content) [...] Provider Active St art: October 08, 2024 Furnace Puncher Relationship Specialty Start Date [place] [address] PCP - General 03/11/15 Team Status: Active Member Role Status Dates Dr. Ramiro Rosa MD Family Provider Active Dr. Ramiro Rosa MD Primary Care Provider Active Team Status: Inactive Member Role Status Dates Dr. Ramiro Rosa MD Primary Care Provider Active Dr. Eleni Borden MD Attending Provider Active Furnace Puncher Relationship Specialty Start Date End Date Ramiro Rosa MD [address] [place] [id number] PCP - General 03/11/15 Furnace Puncher Relationship Specialty Start Date End Date Ramiro Rosa MD [address] [place] [address] [phone] PCP - General 03/11/15 Furnace Puncher Relationship Specialty Start Date End Date Ramiro Rosa MD [address] [place] [address] [id number] PCP - General 03/11/15 Furnace Puncher Relationship Specialty Start Date End Date Ramiro Rosa MD [address] [place], [place] [address], [place] [id number] PCP - General 03/11/15 Furnace Puncher Relationship Specialty Start Date End Date Ramiro Rosa MD [address] [place] [address] [phone] PCP - General 03/11/15 Furnace Puncher Relationship Specialty Start Date End Date Ramiro Rosa MD [address] [place] [address] PCP - General 03/11/15 Furnace Puncher Relationship Specialty Start Date End Date Ramiro Rosa MD [address] [place] [address] PCP - General 03/11/15 Furnace Puncher Relationship Specialty Start Date End Date Ramiro Rosa [address] [place] [id number] PCP - General Family Medicine 06/12/21 Furnace Puncher Relationship Specialty Start Date End Date Ramiro Rosa MD [address] [place] [id number] PCP - General 03/11/15 Furnace Puncher Relationship Specialty Start Date End Date Ramiro Rosa MD [address] [place] [id number] PCP - General 03/11/15 Furnace Puncher Relationship Specialty Start Date End Date Ramiro Rosa MD [address] [place] [phone] PCP - General 03/11/15 Team Status: Inactive Member Role Status Dates Dr. Ramiro Rosa MD Primary Care Provider, Referri ng Provider Active NORRIS Ramos Attending Provider Active Team Status: Inactive Member Role Status Dates Dr. Ramiro Rosa MD Primary Care Provider Active NORRIS Ramos Attending Provider, Referring Pr ovider Active Furnace Puncher Relationship Specialty Start Date End Date Ramiro Rosa MD [address] [place] [address] PCP - General 03/11/15 Furnace Puncher Relationship Specialty Start Date End Date Ramiro Rosa MD [address] [facility] [place] [address] PCP - General 03/11/15 Team Status: Inactive Member Role Status Dates Dr. Ramiro Rosa MD Primary Care Provider, [facility] Provider Active Furnace Puncher Relationship Specialty Start Date End Date Ramiro Rosa MD [address] [facility] [place] [address] PCP - General 03/11/15 Furnace Puncher Relationship Specialty Start Date End Date Ramiro Rosa MD [address] [facility] [place] [address] PCP - General 03/11/15 Furnace Puncher Relationship Specialty Start Date End Date Ramiro Rosa MD [address] [facility] [place] [address] PCP - General 03/11/15 Furnace Puncher Relationship Specialty Start Date End Date Ramiro Rosa MD [address] [facility] [place] [address] PCP - General 03/11/15 Furnace Puncher Relationship Specialty Start Date End Date Ramiro Rosa MD [address] [facility] [place] [address] PCP - General 03/11/15 Furnace Puncher Relationship Specialty Start Date End Date Ramiro Rosa MD [address] [facility] [place] [address] PCP - General 03/11/15 Furnace Puncher Relationship Specialty Start Date End Date Ramiro Rosa MD [address] [facility] [place] [address] PCP - General 03/11/15 Furnace Puncher Relationship Specialty Start Date End Date Ramiro Rosa MD [address] [facility] [place] [address] PCP - General 03/11/15 Furnace Puncher Relationship Specialty Start Date End Date Ramiro Rosa MD [address] [facility] [place] [address] PCP - General 03/11/15 Furnace Puncher Relationship Specialty Start Date End Date Ramiro Rosa MD [address] [facility] [place] [address] PCP - General 03/11/15 Furnace Puncher Relationship Specialty Start Date End Date Ramiro Rosa MD [address] [facility] [place] [address] PCP - General 03/11/15 Furnace Puncher Relationship Specialty Start Date End Date Ramiro Rosa MD [address] [facility] [place] [address] PCP - General 03/11/15 Furnace Puncher Relationship Specialty Start Date End Date Ramiro Rosa MD [address] [facility] [place] [address] PCP - General 03/11/15 Furnace Puncher Relationship Specialty Start Date End Date Ramiro Rosa MD [address] [facility] [place] [address] PCP - General 03/11/15 Furnace Puncher Relationship Specialty Start Date End Date Ramiro Rosa MD [address] [facility] [place] [address] PCP - General 03/11/15 Furnace Puncher Relationship Specialty Start Date End Date Ramiro Rosa [address] [facility] [address] PCP - General Family Medicine 06/12/21 Furnace Puncher Relationship Specialty Start Date End Date Ramiro Rosa [address] [facility] [address] PCP - General Family Medicine 06/12/21 Furnace Puncher Relationship Specialty Start Date End Date Ramiro Rosa [address] [facility] [place] [phone] PCP - General Family Medicine 06/12/21 Team [...] Other Provider Active Start: October 09, 2024 Furnace Puncher Relationship Specialty Start Date End Date Ramiro Rosa MD [address] [place] [address] [place] [address] PCP - General 03/11/15 Source Comments (unrecognize d section and content) In the event this informatio n is protected by the Federal Confidentiality of Alcohol and Drug Abuse Patient Records regulations: The Federal rules restrict any use of the information to criminally investigate or prosecute any alcohol or drug abuse patient.[facility] the event this information is protected by the Federal Confidentiality of Alcohol and Drug Abuse Patient Records regulations: The Federal rules restrict any use of the information to criminally investigate or prosecute any alcohol or drug abuse patient.[facility] the event this information is protected by the Federal Confidentiality of Alcohol and Drug Abuse Patient Records regulations: The Federal rules restrict any use of the information to criminally investigate or prosecute any alcohol or drug abuse patient.[facility] the event this information is protected by the Federal Confidentiality of Alcohol and Drug Abuse Patient Records regulations: The Federal rules restrict any use of the information to criminally investigate or prosecute any alcohol or drug abuse patient.[facility] (unrecognized sect ion and content) No Status Records FoundNo Status Records FoundNo Status Records Found INFORMATION SOURCE (unrecogn ized section and content) DATE CREATED AUTHOR 10/11/2024 [facility] DATE CREATED AUTHOR AUTHOR'S ORGANIZ ATION 10/18/2024 [facility] DATE CREATED AUTHOR AUTHOR'S ORGANIZ ATION 10/21/2024 [facility] FOR RECORDS PERTAINING TO PATIENTS WHO [...] BE BASED ON THE PRIMARY CLINICAL RECORDS. [facility]. provides no warranty or guarantee of the accuracy or completeness of information in this document.
[2024-10-23] MEDS: Lactated Ringers 1,000 ML 15 ML IV (06:28)
--- NOTE | 2024-10-23 06:43 | PCM.PRE.AN2 ---
ASA Classification* ASA Classification ASA Classification: 2 Assessment & Plan Anesthesia* Anesthesia Assessment Anesthesia Assessment: Discussed sedation and/or anesthesia options, risks, benefits, and alternatives with patient/parents/legal guardian/POA. Questions invited. The patient/parents/legal guardian/POA seems to understand and agrees to proceed with anesthesia plan. Reviewed the physical assessment, medical history, allergy history and patient home medications list prior to surgery/procedure/anesthetic and documented any changes. Performed airway and anesthesia risk assessments. Anesthesia Type Anesthesia Type: General History Source History Obtained from:: Patient and Chart Anesthesia Focused Assessment* Temperature: 96.3 F Pulse Rate: 87 Blood Pressure: 136/92 Respiratory Rate: 16 Pulse Ox: 97 Oxygen Delivery Method: Room Air Airway Assessment Mouth opens: >3 cm Mallampati Score: IV Teeth Condition: Intact Neck Range of motion (ROM): Limited ROM Labs Anesthesia Preop lab: CBC WBC 9.1 K/mm3 (4.4-11.0) 10/09/24 05:03 10/09/24 RBC 4.41 M/mm3 (4.6-6.2) L 10/09/24 05:03 10/09/24 Hgb 12.7 g/dL (13.0-16.5) L 10/09/24 05:03 10/09/24 Hct 38.1 % (40-54) L 10/09/24 05:03 10/09/24 Plt Count 332 K/mm3 (150-450) 10/09/24 05:03 10/09/24 CHEMISTRY Potassium 3.8 mmol/L (3.3-5.1) 10/09/24 05:03 10/09/24 Sodium 137 mmol/L (133-145) 10/09/24 05:03 10/09/24 BUN 17 mg/dL (4-19) 10/09/24 05:03 10/09/24 Creatinine 1.39 mg/dL (0.70-1.20) H 10/09/24 05:03 10/09/24 Glucose 100 mg/dL (70-99) H 10/09/24 05:03 10/09/24 COAG Pre-Assessment Diagnosis/Proposed Procedure Planned Operative Procedure(s): LEFT URETEROSCOPY LASER STENT Anesthesia History 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 When Was Last Pacemaker Check QUESTION #4 FULL TEXT: You/Your Family Experience fever (hyperthermia) with Anesthesia Last Oral Intake Last Oral intake: Last Oral Intake NPO since 05:00 10/23/24 06:29 Meds taken in AM with sips of Yes 10/23/24 06:29 water? Meds patient instructed to take am of surgery Any additional information?: Yes Meds taken in AM with sips of water?: Yes PONV PONV - chair spring assembler: PONV - chair spring assembler Female No 10/15/24 10:22 HX of Motion Sickness No 10/15/24 10:22 HX of N/V After Surgery No 10/15/24 10:22 Non-Smoker No 10/15/24 10:22 Duration of Surgery greater No 10/15/24 10:22 than 60 minutes Number of Risk Factors PONV Score Height & Weight Height & Weight: Anesthesia: Height & Weight Height 5 ft 5 in 10/23/24 06:29 Weight: 85.6 kg 10/23/24 06:29 Body Mass Index (BMI) 31.4 10/23/24 06:29 Respiratory Assessment Respiratory Assessment - chair spring assembler: Respiratory Tract Infection Hx - chair spring assembler Hx Respiratory Tract Infection No: COUGH 10/15/24 10:22 Any additional information?: Yes Hx Respiratory Tract Infection: No STOP Sleep Apnea STOP Sleep Apnea - chair spring assembler: STOP Sleep Apnea - chair spring assembler Hx Hypertension Yes: CONTROLLED WITH MED 10/15/24 10:22 Hx Sleep Apnea No 10/15/24 10:22 CPAP BIPAP Do you snore loudly (louder Yes 10/15/24 10:22 than talking or can be heard Do you often feel tired/ Yes 10/15/24 10:22 fatigued/ sleepy during daytime? Has anyone observed you stop No 10/15/24 10:22 breathing during sleep? STOP Results Positive 10/15/24 10:22 QUESTION #5 FULL TEXT : Do you snore loudly (louder than talking or can be heard through closed doors)? 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 Specify any problems Hx of Preganancy in last 3 N/A 10/15/24 10:22 Months Nurse Filling Out Transfusion DSCHRIBER 10/15/24 10:22 & Questions: Date: 10/15/24 10/15/24 10:22 Time: 10:24 10/15/24 10:22 Patient unable to answer at this time (ie. confused, unrespo /Reproduction History /Reproductive History - chair spring assembler: /Reproductive Hx- chair spring assembler Hx Now No 10/15/24 10:22 Gestational Age (in weeks): EDC: Hx Hx Para Hx Section SAB No 10/15/24 10:22 Active Medications Active Medications: Current Medications Generic Name Dose Route Start Last Admin Trade Name Freq PRN Reason Stop Dose Admin Cefazolin Sodium 2 gm/ Sodium 110 mls @ 200 mls/hr 10/23/24 07:30 Chloride IV 10/23/24 08:02 INTRAOP ONE Lactated Ringer's 1,000 mls @ 15 mls/hr 10/23/24 06:15 10/23/24 06:28 IV 15 mls/hr .Q48H VIDHI Administration PFSH Medical History Anxiety Dietary restriction Lives in fpc Arthritis Back pain Non-smoker Shortness of breath on exertion Intellectual disability Recurrent major depression in full remission Hyperlipidemia Essential hypertension Urinary tract infection with hematuria Home Medications ?Medication ?Instructions ?Recorded ?Last Taken ?Type fenofibrate nanocrystallized 145 145 mg PO DAILY 07/08/18 10/23/24 History mg tablet folic acid 400 mcg tablet 0.4 mg PO DAILY@0800 07/08/18 10/22/24 History garlic 200 mg tablet 350 mg PO DAILY 07/08/18 10/22/24 History loratadine 10 mg capsule (Claritin 10 mg PO DAILY 07/08/18 10/22/24 History Liqui-Gel) omega-3 fatty acids-fish oil 340 3 ea PO DAILY 07/08/18 10/22/24 History mg-1,000 mg capsule (Fish Oil) ammonium lactate 12 % topical cream 1 applic topical DAILY 05/29/23 10/22/24 History atorvastatin 40 mg tablet 40 mg PO DAILY 05/29/23 10/22/24 History clonidine HCl 0.2 mg tablet 0.2 mg PO BID 05/29/23 10/23/24 History doxazosin 2 mg tablet 2 mg PO QHS 05/29/23 10/22/24 History fluticasone propionate 50 2 spray intranasal DAILY 05/29/23 10/22/24 History mcg/actuation nasal spray,suspension (Allergy Relief (fluticasone)) losartan 100 mg tablet 100 mg PO DAILY 05/29/23 10/23/24 History multivitamin-ferrous 1 tab PO DAILY 05/29/23 10/22/24 History fumarate-folic acid 18 mg-400 mcg tablet (Certavite-Antioxidant) nabumetone 500 mg tablet 500 mg PO BID PRN pain 05/29/23 Unknown History quetiapine 150 mg tablet,extended 100 mg PO 0700 05/29/23 10/23/24 History release 24 hr neomycin-bacitracn Zn-polymyx 3.5 1 applic topical TID PRN dry skin 11/05/23 10/22/24 History mg-400 unit-5,000 unit/gram top oint (Neosporin (qcr-ewh-aawrt)) oxcarbazepine 600 mg tablet 600 mg PO BID 11/05/23 10/23/24 History clonazepam 0.5 mg tablet 0.25 mg PO TID 10/15/24 10/23/24 History quetiapine 200 mg tablet 200 mg PO 1600 10/15/24 10/22/24 History Allergy/AdvReac Type Severity Reaction Status Date / Time risperidone (From Risperdal) Allergy ANXIETY Verified 10/23/24 06:26 Family History Mother Hyperlipidemia Father Hyperlipidemia Surgical History Hx of colonoscopy Hx of cystoscopy Hx of cystoscopy History of testicular surgery History of ankle surgery Social History household members: other details: Lives with others in residential home number of children: 0 Smoking Status: Never smoker alcohol intake: never substance use type: does not use Review of Systems (Anesthesia) ROS Narrative System reviewed and no additional complaints, except as documented.
[2024-10-23] MEDS: Cefazolin 2 GM in 0.9% Normal Saline (100mL Bag) 100 ML IV (07:25)
--- NOTE | 2024-10-23 08:49 | OP.PCM_ITS ---
Operative Report (Standard) Operative Information Date of Procedure: 10/23/24 Pre-Operative Diagnosis: Kidney stones and ureteral stones large and multiple Post-Operative Diagnosis: The same Surgery/Procedure Performed: Cystoscopy left ureteroscopy laser lithotripsy of multiple stones in the ureter multiple stones in the kidney and left stent placement tube depatcher: No Type of Anesthesia: General RN Documented Start/Stop Times: Operation Date: 10/23/24 07:30 Case Time Into Pre-Op 10/23/24 06:07 Out of Pre-Op 10/23/24 07:20 Anesthesia Start 10/23/24 07:25 Into Room 10/23/24 07:25 Procedure Start 10/23/24 07:38 Procedure End 10/23/24 08:45 Procedure Start Time: 07:38 Procedure Stop Time: 08:50 Select all DRAINS/GRAFTS/IMPLANTS that apply: Drains Drain details: 6 Chinese by 26 cm stent Estimated Blood Loss: None Specimen collected: No Description of surgery: Patient was taken back to the operating room after smooth induction of general anesthesia he was placed supine on the operating room table and then in dorsolithotomy position. The penis and testicles were prepped and draped in usual sterile fashion went into the bladder with a 21 Chinese rigid cystourethroscope he had a large amount of bladder stones that were known and they can take care of these today since he has obstructing stones working at work on first I then grabbed the stent and pulled the stent out to the meatus and then through the stent I put a wire up on the left side and then over the wire went in with a flexible ureteroscope I first encountered 2 very large stones in the ureter these were lasered completely using the thulium laser I then worked my way up the ureter and found another stone this was lasered again then up in the kidney I lasered a stone in the upper pole that was quite large stone in the midpole that was quite large and then multiple large stone in the lower pole I was not able to reach 1 stone in the lower pole this will have to be treated with shockwave lithotripsy in the future. I then worked my way down the ureter lasered some other stones as a went down the ureter I then went back in with a semirigid ureteroscope and lasered some distal stones fragments that were coming down the ureter and then I came out of the bladder drained the bladder and then we placed a stent up on the left side stent coiled in the kidney bladder in good position the bladder was drained plan will be to bring him back next week for stent removal and we will laser the bladder stones. Surgical Findings: Multiple stones in the ureter lasered completely multiple stones in the kidney with most of them lasered the lower pole stone in the left kidney could not be reached what to do shockwave lithotripsy Complications Complications: No Admit VTE Documentation VTE Present on Admission: No VTE Mechan Device Prophylaxis: SCD's VTE Pharm Prophylaxis ordered?: No
--- NOTE | 2024-10-23 08:49 | DCINST_ITS ---
Discharge Instructions Diet Discharge Diet: No restrictions DC O2, CPAP, BIPAP needs Home O2 Discharge instructions: No Dressing / Incision Discharge Activity: Return to Normal Activity and May Not Drive (while taking narcotic pain medications.) Dressing / Incision Call your doctor if you observe: Fever of 101 or Higher Follow Up Care Please Follow Up With: Salvador Rush MD When: Call [phone] for an appointment Test Results: Test results from this visit will be discussed in further detail at your follow- up appointment, if applicable. Discharge Plan Admission Primary Reason for Your Visit: laser stone and stent Attending Provider: Salvador Rush Primary Care Provider: Ramiro Sheets Instructions Print Language: Amharic Discharge Orders/Prescriptions Prescriptions: New cephalexin 500 mg capsule 500 mg PO TID Qty: 15 0RF oxycodone 5 mg tablet 5 mg PO Q6H PRN (Reason: pain) 7 Days Qty: 20 0RF Continued quetiapine 150 mg tablet extended release 24 hr 100 mg PO 0700 Patient Comments: TAKE 1 TABLET BY MOUTHEONCE DAILY AT 4PM ammonium lactate 12 % cream 1 applic topical DAILY atorvastatin 40 mg tablet 40 mg PO DAILY Certavite-Antioxidant 18-400 mg-mcg tablet 1 tab PO DAILY clonidine HCl 0.2 mg tablet 0.2 mg PO BID doxazosin 2 mg tablet 2 mg PO QHS fluticasone propionate [Allergy Relief (fluticasone)] 50 mcg/actuation spray,suspension 2 spray intranasal DAILY Rx Instructions: administer into each nostril losartan 100 mg tablet 100 mg PO DAILY nabumetone 500 mg tablet 500 mg PO BID PRN (Reason: pain) Patient Comments: take 1 tablet by mouth twice a day oxcarbazepine 600 mg tablet 600 mg PO BID Neosporin ([id number]-[id number]) 3.5mg-400 unit- 5,000 unit/gram ointment 1 applic topical TID PRN (Reason: dry skin) Rx Instructions: To inside of nose for dry patches folic acid 0.4 MG tablet 0.4 mg PO DAILY@0800 fenofibrate nanocrystallized 145 MG tablet 145 mg PO DAILY Fish Oil 1 EACH capsule 3 ea PO DAILY Claritin Liqui-Gel 10 MG capsule 10 mg PO DAILY garlic 200 MG tablet 350 mg PO DAILY quetiapine 200 mg tablet 200 mg PO 1600 clonazepam 0.5 mg tablet 0.25 mg PO TID Referrals / Follow Up: Ramiro Sheets MD [Primary Care Provider] - Disposition Disposition (needs filled in before D/C Order can be placed): Home, Self Care
--- NOTE | 2024-10-23 08:58 | PCM.POST.ANE ---
Anesthesia: Postop Eval I Current Vital Signs Temperature: 97 F Pulse Rate: 97 Blood Pressure: 113/78 Respiratory Rate: 16 Pulse Ox: 94 Assessment Airway patent: Yes Spontaneous unlabored respirations: Yes nausea: No Vomiting: No Anesthesia Complication: No Fluid Hydration Crystalloid volume administer (ml): 800 Total IV fluid infused: 800 Progress Note Anesthesia document: Postop Eval 1 completed: Yes
--- NOTE | 2024-10-23 15:42 | POSTOPAN2_ITS ---
Anesthesia Postop Eval I Sum Postop Eval Completion status Anesthesia document: Postop Eval 1 completed: Yes Anesthesia Postop Eval I Summary Anesthesia Postop Eval I Summary: Anesthesia Postop Eval I: Assessment Summary Airway patent Yes 10/23/24 08:58 [email or web address] Spontaneous unlabored Yes 10/23/24 08:58 [email or web address] respirations Mental status nausea No 10/23/24 08:58 [email or web address] Vomiting No 10/23/24 08:58 [email or web address] Anesthesia Postop Eval I: Fluid Summary Crystalloid volume administer 800 10/23/24 08:58 [email or web address] (ml) Colloids volume administered ( ml) Blood Product volume administered (ml) Total IV fluid infused 800 10/23/24 08:58 [email or web address] Anesthesia Postop Eval I: Summary Notes Anesthesia Complication No 10/23/24 08:58 [email or web address] Anesthesia Complication Comment: Post-operative progress note Anesthesia: Postop Eval II Evaluation Mental status: Awake Pain Level: 2 nausea: No Vomiting: No
--- NOTE | 2024-10-23 15:42 | PCM.POSTANE2 ---
Anesthesia Postop Eval I Sum Postop Eval Completion status Anesthesia document: Postop Eval 1 completed: Yes Anesthesia Postop Eval I Summary Anesthesia Postop Eval I Summary: Anesthesia Postop Eval I: Assessment Summary Airway patent Yes 10/23/24 08:58 [email or web address] Spontaneous unlabored Yes 10/23/24 08:58 [email or web address] respirations Mental status nausea No 10/23/24 08:58 CUSTOM [email or web address] Vomiting No 10/23/24 08:58 [email or web address] Anesthesia Postop Eval I: Fluid Summary Crystalloid volume administer 800 10/23/24 08:58 [email or web address] (ml) Colloids volume administered ( ml) Blood Product volume administered (ml) Total IV fluid infused 800 10/23/24 08:58 CUSTOM [email or web address] [email or web address] Anesthesia Postop Eval I: Summary Notes Anesthesia Complication No 10/23/24 08:58 [email or web address] [email or web address] Anesthesia Complication Comment: Post-operative progress note Anesthesia: Postop Eval II Evaluation Mental status: Awake Pain Level: 2 nausea: No Vomiting: No
== END 2024-10-23 10:18 | disposition home or self-care (01) ==
LOC: SDC 06:00 → AC 06:01
PROVIDERS: PCP Family Medicine; Referring Provider Urology; Visit Provider Urology
PROC: 0TJ98ZZ Inspection of Ureter, Via Natural or Artificial Opening Endoscopic (ICD-10-PCS; CPT 52352; principal; 2024-10-23 07:20)
DX: N13.2 Hydronephrosis with renal and ureteral calculous obstruction (principal); N40.1 Benign prostatic hyperplasia with lower urinary tract symptoms; N13.8 Other obstructive and reflux uropathy; N21.0 Calculus in bladder; I10 Essential (primary) hypertension; E78.5 Hyperlipidemia, unspecified; F79 Unspecified intellectual disabilities; Z79.899 Other long term (current) drug therapy
CPT/HCPCS: 52356; 00918; 76000; C1769; C2617; J2405

== ENCOUNTER 2024-10-30 10:34 | Day surgery (SDC) | payer MEDICAID, SELFPAY ==
--- NOTE | 2024-10-28 22:55 | PAT.ANESEVAL ---
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 When Was Last Pacemaker Check QUESTION #4 FULL TEXT: You/Your Family Experience fever (hyperthermia) with Anesthesia Last Oral Intake Last Oral intake: Last Oral Intake NPO since Meds taken in AM with sips of water? Meds patient instructed to take am of surgery PONV PONV - mycologist: PONV - mycologist Female No 10/28/24 16:22 HX of Motion Sickness No 10/28/24 16:22 HX of N/V After Surgery No 10/28/24 16:22 Non-Smoker Yes 10/28/24 16:22 Duration of Surgery greater No 10/28/24 16:22 than 60 minutes Number of Risk Factors 1 10/28/24 16:22 PONV Score Low Risk 10/28/24 16:22 Height & Weight Height & Weight: Anesthesia: Height & Weight Height 5 ft 5 in 10/23/24 06:29 Respiratory Assessment Respiratory Assessment - mycologist: Respiratory Tract Infection Hx - mycologist Hx Respiratory Tract Infection No 10/28/24 16:22 STOP Sleep Apnea STOP Sleep Apnea - mycologist: STOP Sleep Apnea - mycologist Hx Hypertension Yes: CONTROLLED WITH MED 10/28/24 16:22 Hx Sleep Apnea No 10/28/24 16:22 CPAP BIPAP Do you snore loudly (louder No 10/28/24 16:22 than talking or can be heard Do you often feel tired/ No 10/28/24 16:22 fatigued/ sleepy during daytime? Has anyone observed you stop No 10/28/24 16:22 breathing during sleep? STOP Results Negative 10/28/24 16:22 QUESTION #5 FULL TEXT : Do you snore loudly (louder than talking or can be heard through closed doors)? 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 Specify any problems Hx of Preganancy in last 3 N/A 10/28/24 16:22 Months Nurse Filling Out Transfusion [facility] 10/28/24 16:22 & Questions: Date: 10/28/24 10/28/24 16:22 Time: 16:23 10/28/24 16:22 Patient unable to answer at this time (ie. confused, unrespo /Reproduction History /Reproductive History - mycologist: /Reproductive Hx- mycologist Hx Now No 10/28/24 16:22 Gestational Age (in weeks): EDC: Hx Hx Para Hx Section SAB No 10/15/24 10:22 PFSH Medical History Anxiety Dietary restriction Lives in assisted Arthritis Back pain Non-smoker Shortness of breath on exertion Intellectual disability Recurrent major depression in full remission Hyperlipidemia Essential hypertension Urinary tract infection with hematuria Home Medications ?Medication ?Instructions ?Recorded ?Last Taken ?Type fenofibrate nanocrystallized 145 145 mg PO DAILY 07/08/18 10/23/24 History mg tablet folic acid 400 mcg tablet 0.4 mg PO DAILY@0800 07/08/18 10/22/24 History garlic 200 mg tablet 350 mg PO DAILY 07/08/18 10/22/24 History loratadine 10 mg capsule (Claritin 10 mg PO DAILY 07/08/18 10/22/24 History Liqui-Gel) omega-3 fatty acids-fish oil 340 3 ea PO DAILY 07/08/18 10/22/24 History mg-1,000 mg capsule (Fish Oil) ammonium lactate 12 % topical cream 1 applic topical DAILY 05/29/23 10/22/24 History atorvastatin 40 mg tablet 40 mg PO DAILY 05/29/23 10/22/24 History clonidine HCl 0.2 mg tablet 0.2 mg PO BID 05/29/23 10/23/24 History doxazosin 2 mg tablet 2 mg PO QHS 05/29/23 10/22/24 History fluticasone propionate 50 2 spray intranasal DAILY 05/29/23 10/22/24 History mcg/actuation nasal spray,suspension (Allergy Relief (fluticasone)) losartan 100 mg tablet 100 mg PO DAILY 05/29/23 10/23/24 History multivitamin-ferrous 1 tab PO DAILY 05/29/23 10/22/24 History fumarate-folic acid 18 mg-400 mcg tablet (Certavite-Antioxidant) nabumetone 500 mg tablet 500 mg PO BID PRN pain 05/29/23 Unknown History quetiapine 150 mg tablet,extended 100 mg PO 0700 05/29/23 10/23/24 History release 24 hr neomycin-bacitracn Zn-polymyx 3.5 1 applic topical TID PRN dry skin 11/05/23 10/22/24 History mg-400 unit-5,000 unit/gram top oint (Neosporin ([id number]-[id number])) oxcarbazepine 600 mg tablet 600 mg PO BID 11/05/23 10/23/24 History clonazepam 0.5 mg tablet 0.25 mg PO TID 10/15/24 10/23/24 History quetiapine 200 mg tablet 200 mg PO 1600 10/15/24 10/22/24 History cephalexin 500 mg capsule 500 mg PO TID #15 caps 10/23/24 Unknown Rx oxycodone 5 mg tablet 5 mg PO Q6H PRN pain 7 days #20 10/23/24 Unknown Rx tabs Allergy/AdvReac Type Severity Reaction Status Date / Time risperidone (From Risperdal) Allergy ANXIETY Verified 10/23/24 06:26 Family History Mother Hyperlipidemia Father Hyperlipidemia Surgical History Hx of colonoscopy Hx of cystoscopy Hx of cystoscopy History of testicular surgery History of ankle surgery Social History household members: other details: Lives with others in residential home number of children: 0 Smoking Status: Never smoker alcohol intake: never substance use type: does not use Audit: Pertinent Findings Pertinent Findings EKG Perinent findings: EKG Perinent findings: 10/09/2024. Normal sinus rhythm. Incomplete right bundle branch block. Rate 82 bpm. Recommendation Anesthesia Recommendation Anesthesia recommendation: OPTIMIZED for anesthesia
[2024-10-30] VITALS (8 sets, daily range): BP systolic 115–130; BP diastolic 73–85; PULSE 95–108; RESP 16–18; TEMP 37.7–38.2; O2SAT 90–97; BMI 30.8
[2024-10-30 11:29] LABS: Hematocrit 36.9 % (40-54); Hemoglobin 12.4 g/dL (13.0-16.5); Mean Corp Hgb Conc 33.6 g/dL (32-36); Mean Corpuscular Hgb 28.7 pg (27.0-32.0); Mean Corpuscular Volume 85.4 fL (80-94); Platelet Count 399 K/mm3 (150-450); RBC Distribution Width CV 13.5 % (11.6-14.6); RBC Distribution Width SD 42.9 fl (35.1-43.9); Red Blood Count 4.32 M/mm3 (4.6-6.2); White Blood Count 15.1 K/mm3 (4.4-11.0)
[2024-10-30] MEDS: Lactated Ringers 1,000 ML 15 ML IV (11:35)
[2024-10-30 11:54] LABS: ALB/GLOB Ratio 1.7 RATIO (0.9-2.4); AST(SGOT) 57 U/L (<=37); Alanine Aminotransfer ALT/SGPT 64 U/L (<=46); Albumin, Serum 4.2 g/dL (3.5-5.0); Alkaline Phosphatase 93 U/L (40-129); Anion Gap 13 (5-15); BUN 13 mg/dL (4-19); BUN/Creat Ratio 11.7 RATIO (10-20); Calcium,Total 9.6 mg/dL (7.6-11.0); Carbon Dioxide 20.9 mmol/L (21.0-32.0); Chloride 98 mmol/L (98-108); Creatinine, Serum 1.09 mg/dL (0.70-1.20); EST Glomerular Filtration Rate 85 (>60); Estimated Creatinine Clearance 84.44 ml/min (50-250); Globulin 2.5 g/dL (2.2-4.2); Glucose 122 mg/dL (70-99); Potassium 4.7 mmol/L (3.3-5.1); Protein, Total 6.7 g/dL (5.9-8.4); Sodium Level 132 mmol/L (133-145); Total Bilirubin 0.51 mg/dL (0.00-1.30)
--- NOTE | 2024-10-30 12:14 | PRE.ANES_ITS ---
ASA Classification* ASA Classification ASA Classification: 3 Assessment & Plan Anesthesia* Anesthesia Assessment Anesthesia Assessment: Discussed sedation and/or anesthesia options, risks, benefits, and alternatives with patient/parents/legal guardian/POA. Questions invited. The patient/parents/legal guardian/POA seems to understand and agrees to proceed with anesthesia plan. Reviewed the physical assessment, medical history, allergy history and patient home medications list prior to surgery/procedure/anesthetic and documented any changes. Performed airway and anesthesia risk assessments. Anesthesia Type Anesthesia Type: General (LMA versus [place] scope for endotracheal intubation.) History Source History Obtained from:: Patient and Chart Anesthesia Focused Assessment* Temperature: 100.7 F Pulse Rate: 108 Blood Pressure: 130/85 Respiratory Rate: 18 Pulse Ox: 96 Oxygen Delivery Method: Room Air Airway Assessment Mouth opens: >3 cm Mallampati Score: IV Teeth Condition: Intact Neck Range of motion (ROM): Limited ROM Labs Anesthesia Preop lab: CBC WBC 15.1 K/mm3 (4.4-11.0) H 10/30/24 11:15 5 RBC 4.32 M/mm3 (4.6-6.2) L 10/30/24 11:15 10/30/24 Hgb 12.4 g/dL (13.0-16.5) L 10/30/24 11:15 5 Hct 36.9 % (40-54) L 10/30/24 11:15 10/30/24 Plt Count 399 K/mm3 (150-450) 10/30/24 11:15 10/30/24 CHEMISTRY Potassium 4.7 mmol/L (3.3-5.1) 10/30/24 11:15 10/30/24 Sodium 132 mmol/L (133-145) L 10/30/24 11:15 10/30/24 BUN 13 mg/dL (4-19) 10/30/24 11:15 10/30/24 Creatinine 1.09 mg/dL (0.70-1.20) 10/30/24 11:15 10/30/24 Glucose 122 mg/dL (70-99) H 10/30/24 11:15 10/30/24 COAG Pre-Assessment Diagnosis/Proposed Procedure Planned Operative Procedure(s): LITHOPLAXY OF BLADDER STONE Anesthesia History 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 When Was Last Pacemaker Check QUESTION #4 FULL TEXT: You/Your Family Experience fever (hyperthermia) with Anesthesia Last Oral Intake Last Oral intake: Last Oral Intake NPO since 06:00 10/30/24 11:29 Meds taken in AM with sips of Yes 10/30/24 11:29 water? Meds patient instructed to take am of surgery Any additional information?: Yes Meds taken in AM with sips of water?: Yes PONV PONV - thermo cementing folder operator: PONV - thermo cementing folder operator Female No 10/28/24 16:22 HX of Motion Sickness No 10/28/24 16:22 HX of N/V After Surgery No 10/28/24 16:22 Non-Smoker Yes 10/28/24 16:22 Duration of Surgery greater No 10/28/24 16:22 than 60 minutes Number of Risk Factors 1 10/28/24 16:22 PONV Score Low Risk 10/28/24 16:22 Height & Weight Height & Weight: Anesthesia: Height & Weight Height 5 ft 5 in 10/30/24 11:29 Weight: 84 kg 10/30/24 11:29 Body Mass Index (BMI) 30.8 10/30/24 11:29 Respiratory Assessment Respiratory Assessment - thermo cementing folder operator: Respiratory Tract Infection Hx - thermo cementing folder operator Hx Respiratory Tract Infection No 10/28/24 16:22 STOP Sleep Apnea STOP Sleep Apnea - thermo cementing folder operator: STOP Sleep Apnea - thermo cementing folder operator Hx Hypertension Yes: CONTROLLED WITH MED 10/28/24 16:22 Hx Sleep Apnea No 10/28/24 16:22 CPAP BIPAP Do you snore loudly (louder No 10/28/24 16:22 than talking or can be heard Do you often feel tired/ No 10/28/24 16:22 fatigued/ sleepy during daytime? Has anyone observed you stop No 10/28/24 16:22 breathing during sleep? STOP Results Negative 10/28/24 16:22 QUESTION #5 FULL TEXT : Do you snore loudly (louder than talking or can be heard through closed doors)? 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 cementing folder operator Tobacco Use Non-smoker 03/02/21 15:59 Smoking Status Never smoker 10/28/24 16:22 Hx Tobacco Use No 10/28/24 16:22 Years Smoking Packs Smoked per Day Smoking Cessation Date was within the last 15 years Hx Smoking Cessation Date Hx Smoking Cessation Counseling Hematologic Medial History Hematologic Hx - thermo cementing folder operator: Hematologic Medical Hx - filler wiper Hx of Blood Transfusion No 10/28/24 16:22 Hx of Transfusion in last 3 No 10/28/24 16:22 Months Date of Last Transfusion (if within last 3 months) Ever experience any problems No 10/28/24 16:22 with transfusion(s)? Specify any problems Hx of Preganancy in last 3 N/A 10/28/24 16:22 Months Nurse Filling Out Transfusion [facility] 10/28/24 16:22 & Questions: Date: 10/28/24 10/28/24 16:22 Time: 16:23 10/28/24 16:22 Patient unable to answer at this time (ie. confused, unrespo /Reproduction History /Reproductive History - thermo cementing folder operator: /Reproductive Hx- thermo cementing folder operator Hx Now No 10/28/24 16:22 Gestational Age (in weeks): EDC: Hx Hx Para Hx Section SAB No 10/15/24 10:22 Active Medications Active Medications: Current Medications Generic Name Dose Route Start Last Admin Trade Name Freq PRN Reason Stop Dose Admin Lactated Ringer's 1,000 mls @ 15 mls/hr 10/30/24 10:45 10/30/24 11:35 IV 15 mls/hr .Q48H VIDHI Administration PFSH Medical History Anxiety Dietary restriction Lives in prison Arthritis Back pain Non-smoker Shortness of breath on exertion Intellectual disability Recurrent major depression in full remission Hyperlipidemia Essential hypertension Urinary tract infection with hematuria Home Medications ?Medication ?Instructions ?Recorded ?Last Taken ?Type fenofibrate nanocrystallized 145 145 mg PO DAILY 07/0810/23/24 History mg tablet folic acid 400 mcg tablet 0.4 mg PO DAILY@0800 9 10/22/24 History garlic 200 mg tablet 350 mg PO DAILY 07/08/18 History loratadine 10 mg capsule (Claritin 10 mg PO DAILY 09/2110/22/24 History Liqui-Gel) omega-3 fatty acids-fish oil 340 3 ea PO DAILY 9 10/22/24 History mg-1,000 mg capsule (Fish Oil) ammonium lactate 12 % topical cream 1 applic topical D AILY 05/29/23 10/22/24 History atorvastatin 40 mg tablet 40 mg PO DAILY 05/29/2310/04 History clonidine HCl 0.2 mg tablet 0.2 mg PO BID 05/29/23 History doxazosin 2 mg tablet 2 mg PO QHS 05/29/23 5 History fluticasone propionate 50 2 spray intranasal DAILY 10/22/24 History mcg/actuation nasal spray,suspension (Allergy Relief (fluticasone)) losartan 100 mg tablet 100 mg PO DAILY 05/29/23 History multivitamin-ferrous 1 tab PO DAILY 05/29/2310/04 History fumarate-folic acid 18 mg-400 mcg tablet (Certavite-Antioxidant) nabumetone 500 mg tablet 500 mg PO BID PRN pain 05/29 Unknown History quetiapine 150 mg tablet,extended 100 mg PO 0700 05/2910/30/24 History release 24 hr neomycin-bacitracn Zn-polymyx 3.5 1 applic topical TID PRN dry skin 11/05/23 10/22/24 History mg-400 unit-5,000 unit/gram top oint (Neosporin (sho-cqj-fvieh)) oxcarbazepine 600 mg tablet 600 mg PO BID 11/05/23 History clonazepam 0.5 mg tablet 0.25 mg PO TID 10/15/2410/05 History quetiapine 200 mg tablet 200 mg PO 1600 10/15/24 0601/28 History cephalexin 500 mg capsule 500 mg PO TID #15 caps 10/23 Unknown Rx oxycodone 5 mg tablet 5 mg PO Q6H PRN pain 7 days #20 10/23/24 10/29/24 Rx tabs Allergy/AdvReac Type Severity Reaction Status Date / Time risperidone (From Risperdal) Allergy ANXIETY Verified 10/23/24 06:26 Family History Mother Hyperlipidemia Father Hyperlipidemia Surgical History Hx of colonoscopy Hx of cystoscopy Hx of cystoscopy History of testicular surgery History of ankle surgery Social History household members: other details: Lives with others in residential home number of children: 0 Smoking Status: Never smoker alcohol intake: never substance use type: does not use Review of Systems (Anesthesia) ROS Narrative System reviewed and no additional complaints, except as documented.
--- NOTE | 2024-10-30 13:31 | DCINST_ITS ---
Discharge Instructions Diet Discharge Diet: No restrictions DC O2, CPAP, BIPAP needs Home O2 Discharge instructions: No Dressing / Incision Discharge Activity: Return to Normal Activity Follow Up Care Please Follow Up With: Salvador Rush MD When: Call [phone] for an appointment Test Results: Test results from this visit will be discussed in further detail at your follow- up appointment, if applicable. Discharge Plan Admission Primary Reason for Your Visit: laser bladder stones Attending Provider: Salvador Rush Primary Care Provider: Ramiro Sheets Instructions Print Language: Mohawk Discharge Orders/Prescriptions Prescriptions: New sulfamethoxazole-trimethoprim [Bactrim DS] 800-160 mg tablet 1 tab PO BID Qty: 14 0RF tamsulosin [Flomax] 0.4 mg capsule 0.4 mg PO QHS Qty: 30 1RF finasteride [Proscar] 5 mg tablet 5 mg PO DAILY Qty: 30 1RF Continued quetiapine 150 mg tablet extended release 24 hr 100 mg PO 0700 Patient Comments: TAKE 1 TABLET BY MOUTHEONCE DAILY AT 4PM ammonium lactate 12 % cream 1 applic topical DAILY atorvastatin 40 mg tablet 40 mg PO DAILY Certavite-Antioxidant 18-400 mg-mcg tablet 1 tab PO DAILY clonidine HCl 0.2 mg tablet 0.2 mg PO BID doxazosin 2 mg tablet 2 mg PO QHS fluticasone propionate [Allergy Relief (fluticasone)] 50 mcg/actuation spray,suspension 2 spray intranasal DAILY Rx Instructions: administer into each nostril losartan 100 mg tablet 100 mg PO DAILY nabumetone 500 mg tablet 500 mg PO BID PRN (Reason: pain) Patient Comments: take 1 tablet by mouth twice a day oxcarbazepine 600 mg tablet 600 mg PO BID Neosporin ([id number]-yio-ukauj) 3.5mg-400 unit- 5,000 unit/gram ointment 1 applic topical TID PRN (Reason: dry skin) Rx Instructions: To inside of nose for dry patches folic acid 0.4 MG tablet 0.4 mg PO DAILY@0800 fenofibrate nanocrystallized 145 MG tablet 145 mg PO DAILY Fish Oil 1 EACH capsule 3 ea PO DAILY Claritin Liqui-Gel 10 MG capsule 10 mg PO DAILY garlic 200 MG tablet 350 mg PO DAILY quetiapine 200 mg tablet 200 mg PO 1600 clonazepam 0.5 mg tablet 0.25 mg PO TID cephalexin 500 mg capsule 500 mg PO TID Qty: 15 0RF oxycodone 5 mg tablet 5 mg PO Q6H PRN (Reason: pain) 7 Days Qty: 20 0RF Referrals / Follow Up: Ramiro Sheets MD [Primary Care Provider] - Salvador Rush MD [Med Staff - Active Staff] - Disposition Disposition (needs filled in before D/C Order can be placed): Home, Self Care
[2024-10-30] MEDS: Cefazolin 2 GM in 0.9% Normal Saline (100mL Bag) 100 ML IV (13:40)
--- NOTE | 2024-10-30 14:10 | PCM.OPRPT ---
Operative Report (Standard) Operative Information Date of Procedure: 10/30/24 Pre-Operative Diagnosis: Large bladder stones status post laser of left stones Post-Operative Diagnosis: Same Surgery/Procedure Performed: Cystolitholapaxy and laser of large bladder stones and removal of left stent merchandise displayer: No Type of Anesthesia: General RN Documented Start/Stop Times: Operation Date: 10/30/24 12:40 Case Time Into Pre-Op 10/30/24 10:37 Procedure Start Time: 13:46 Procedure Stop Time: 14:14 Select all DRAINS/GRAFTS/IMPLANTS that apply: None Estimated Blood Loss: None Specimen collected: No Description of surgery: This is a 44-year-old male who last week and lasered multiple bunch of stones in the ureter tube and up in the kidney there is a stent on that left side he had a whole bunch of really hard large stones in the bladder today we can laser the stones in the bladder and remove the stent. Patient was taken back to the operating room after smooth duction of anesthesia went in the bladder with a 21 [place] rigid cystourethroscope went inside the bladder grabbed the existing stent from the left side and pulled out gently I then went to the stones and used a 916 ?m laser fiber and piece by piece of the laser each stone there are several stones on total size were greater than 2 cm in size after lasering all the stones little tiny pieces then all the pieces were then flushed out of the bladder he did have a large obstructive prostate large median lobe probably would benefit from surgical intervention of the prostate but for now we will put him on medical therapy with Flomax and Proscar. He will go home today and I will have him come back to the office for checkup and we will plan to do a TURP in the near future Surgical Findings: Large stones in the bladder lasered completely and removed stones were greater than 3 cm in size Complications Complications: No Admit VTE Documentation VTE Present on Admission: No VTE Mechan Device Prophylaxis: SCD's VTE Pharm Prophylaxis ordered?: No
[2024-10-30] MEDS: Ketorolac 15 MG/ML Vial IV (15:06)
--- NOTE | 2024-10-30 15:08 | PCM.POST.ANE ---
Anesthesia: Postop Eval I Current Vital Signs Temperature: 99.9 F Pulse Rate: 96 Blood Pressure: 125/74 Respiratory Rate: 16 Pulse Ox: 93 Oxygen Delivery Method: Nasal Cannula Assessment Airway patent: Yes Spontaneous unlabored respirations: Yes nausea: No Vomiting: No Anesthesia Complication: No Fluid Hydration Crystalloid volume administer (ml): 1,000 Total IV fluid infused: 1,000 Progress Note Anesthesia document: Postop Eval 1 completed: Yes
--- NOTE | 2024-11-02 10:01 | POSTOPAN2_ITS ---
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.ACAR Spontaneous unlabored Yes 10/30/24 15:09 INSTALL AND REPAIR TECHNICIAN.ACAR respirations Mental status nausea No 10/30/24 15:09 INSTALL AND REPAIR TECHNICIAN.ACAR Vomiting No 10/30/24 15:09 INSTALL AND REPAIR TECHNICIAN.ACAR Anesthesia Postop Eval I: Fluid Summary Crystalloid volume administer 1,000 10/30/24 15:09 INSTALL AND REPAIR TECHNICIAN.ACAR (ml) Colloids volume administered ( ml) Blood Product volume administered (ml) Total IV fluid infused 1,000 10/30/24 15:09 INSTALL AND REPAIR TECHNICIAN.ACAR Anesthesia Postop Eval I: Summary Notes Anesthesia Complication No 10/30/24 15:09 INSTALL AND REPAIR TECHNICIAN.ACAR Anesthesia Complication Comment: Post-operative progress note Anesthesia: Postop Eval II Evaluation Mental status: Awake and Calm Pain Level: 1 nausea: No Vomiting: No Complications Anesthesia Complication: No
--- NOTE | 2024-11-02 10:01 | PCM.POSTANE2 ---
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 FIELD [email or web address].ACAR Spontaneous unlabored Yes 10/30/24 15:09 STAFF FIELD ENGINEER.ACAR respirations Mental status nausea No 10/30/24 15:09 STAFF FIELD ENGINEER.ACAR Vomiting No 10/30/24 15:09 STAFF FIELD ENGINEER.ACAR Anesthesia Postop Eval I: Fluid Summary Crystalloid volume administer 1,000 10/30/24 15:09 STAFF FIELD [email or web address].ACAR (ml) Colloids volume administered ( ml) Blood Product volume administered (ml) Total IV fluid infused 1,000 10/30/24 15:09 STAFF FIELD ENGINEER.ACAR Anesthesia Postop Eval I: Summary Notes Anesthesia Complication No 10/30/24 15:09 STAFF FIELD ENGINEER.ACAR Anesthesia Complication Comment: Post-operative progress note Anesthesia: Postop Eval II Evaluation Mental status: Awake and Calm Pain Level: 1 nausea: No Vomiting: No Complications Anesthesia Complication: No
== END 2024-10-30 15:22 | disposition home or self-care (01) ==
LOC: SDC 10:34 → AC 10:35
PROVIDERS: PCP Family Medicine; Referring Provider Urology; Visit Provider Urology
PROC: (CPT 52318; principal; 2024-10-30 12:30)
DX: N21.0 Calculus in bladder (principal); N40.1 Benign prostatic hyperplasia with lower urinary tract symptoms; N13.8 Other obstructive and reflux uropathy; F79 Unspecified intellectual disabilities; I10 Essential (primary) hypertension; E78.5 Hyperlipidemia, unspecified; Z79.899 Other long term (current) drug therapy
CPT/HCPCS: 52318; 52310; 00910; 80053; 85027; J2405

== ENCOUNTER 2024-11-13 07:32 | Emergency (ER) | payer MEDICAID, SELFPAY ==
[2024-11-13 07:33] VITALS: BP 126/88; PULSE 96; RESP 14; TEMP 36.6; O2SAT 98; BMI 32.8
--- NOTE | 2024-11-13 08:06 | CT_ITS ---
PROCEDURE: ABDOMEN/PELVIS WITHOUT CONT 11/13/2024 REASON FOR EXAM: PAIN Hematuria. History of bilateral renal calculi and obstructive uropathy. TECHNIQUE: ABDOMEN/PELVIS WITHOUT CONT Noncontrast technique limits evaluation of the abdominal and pelvic viscera. Coronal and Sagittal reconstruction series were provided. One or more dose reduction techniques were used (e.g., Automated exposure control, adjustment of the mA and/or kV according to patient size, use of iterative reconstruction technique). RADIATION DOSE SUMMARY: CTDlvol: 11.61 mGy DLP: 684.8 mGycm COMPARISON: Prior study dated October 08, 2024. FINDINGS: Lung bases: Mild dependent atelectasis. Coronary artery calcification. Liver: Diffuse fatty infiltration. Gallbladder: Sludge is seen within the gallbladder lumen. Spleen: Normal size. Pancreas: Normal size. No surrounding inflammation. Adrenals: Unremarkable Kidneys: Once again, there were multiple small bilateral intrarenal calculi. Stable left renal cysts. No evidence of ureteral obstruction at this time. The previously seen calculus in the distal left ureter is not seen at this time. Bladder: Unremarkable. The previously seen multiple stones at the base of the bladder are not seen at this time. Prosthetic enlargement with indentation of the bladder base. Bilateral inguinal hernias containing fat more prominent on the right side. Bowel: Unremarkable Appendix: Unremarkable Lymph nodes: No lymph nodes are seen. Vasculature: Unremarkable Peritoneum / Retroperitoneum: Unremarkable. Bones: Mild degree of degenerative changes of the lumbar spine. CT/Abdomen/Pelvis without Cont IMPRESSION: Multiple nonobstructive bilateral intrarenal calculi. No evidence of obstructi ve uropathy at this time. Small bilateral inguinal hernias containing fat worse on the right side. Prostatic enlargement with indentation of the bladder base. Fatty infiltration of the liver. Reading Location: [place] [id number]
--- NOTE | 2024-11-13 08:12 | EX.ED.DYSGE1 ---
HPI History of Present Illness Chief Complaint: Complaint Narrative Narrative: Chief complaint and HPI: Hematuria. 44-year-old male with past medical history of urolithiasis, HTN who presents for evaluation of hematuria. 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 Patient follows with Dr. Rush. He had a cystoscopylithoplexy and laser of large bladder stones and removal of left stent on 10/30. 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 Hematuria continued until he passed a large clot today. He endorses dysuria. Denies any fever, chills, shortness of breath, chest pain abdominal pain, nausea, vomiting. States he feels like he is emptying his bladder. Review of systems: See HPI Medications: As listed on the chart Allergies: As listed on the chart PFSH: Per chart Vital signs: As listed on the chart. Reviewed. Physical exam: Gen: Alert and oriented, NAD Head: Normocephalic, atraumatic Eyes: No sclera icterus, conjunctiva clear ENT: Moist mucous membranes Neck: Trachea midline, No JVD CV: RRR, no murmurs, no peripheral edema Resp: Lungs CTA BL, no w/r/c GI: Abd soft, non-distended, non-tender, no r/r/g : No CVA tenderness. Circumcised penis. No penile tenderness or discharge. No penile or testicular swelling. Normal lie and position of the testicles. No testicular tenderness, masses, or skin changes. Cremasteric reflexes intact and equal bilaterally. No rashes. No palpable hernias. No blood at penile meatus. Musc: Full ROM, no deformity Skin: Warm, dry Neuro: Alert, oriented, grossly intact, sensation intact Psych: Cooperative, appropriate mood and affect [facility] Medical History Anxiety Dietary restriction Lives in retirement Arthritis Back pain Non-smoker Shortness of breath on exertion Intellectual disability Recurrent major depression in full remission Hyperlipidemia Essential hypertension Urinary tract infection with hematuria Home Medications ?Medication ?Instructions ?Recorded ?Last Taken ?Type fenofibrate nanocrystallized 145 145 mg PO DAILY 07/08/18 10/23/24 History mg tablet folic acid 400 mcg tablet 0.4 mg PO DAILY@0800 07/08/18 10/22/24 History garlic 200 mg tablet 350 mg PO DAILY 07/08/18 10/22/24 History loratadine 10 mg capsule (Claritin 10 mg PO DAILY 07/08/18 10/22/24 History Liqui-Gel) omega-3 fatty acids-fish oil 340 3 ea PO DAILY 07/08/18 10/22/24 History mg-1,000 mg capsule (Fish Oil) ammonium lactate 12 % topical cream 1 applic topical DAILY 05/29/23 10/22/24 History atorvastatin 40 mg tablet 40 mg PO DAILY 05/29/23 10/22/24 History clonidine HCl 0.2 mg tablet 0.2 mg PO BID 05/29/23 10/30/24 History doxazosin 2 mg tablet 2 mg PO QHS 05/29/23 10/22/24 History fluticasone propionate 50 2 spray intranasal DAILY 05/29/23 10/22/24 History mcg/actuation nasal spray,suspension (Allergy Relief (fluticasone)) losartan 100 mg tablet 100 mg PO DAILY 05/29/23 10/30/24 History multivitamin-ferrous 1 tab PO DAILY 05/29/23 10/22/24 History fumarate-folic acid 18 mg-400 mcg tablet (Certavite-Antioxidant) nabumetone 500 mg tablet 500 mg PO BID PRN pain 05/29/23 Unknown History quetiapine 150 mg tablet,extended 100 mg PO 0700 05/29/23 10/30/24 History release 24 hr neomycin-bacitracn Zn-polymyx 3.5 1 applic topical TID PRN dry skin 11/05/23 10/22/24 History mg-400 unit-5,000 unit/gram top oint (Neosporin (hik-qwz-ncsig)) oxcarbazepine 600 mg tablet 600 mg PO BID 11/05/23 10/30/24 History clonazepam 0.5 mg tablet 0.25 mg PO TID 10/15/24 10/30/24 History quetiapine 200 mg tablet 200 mg PO 1600 10/15/24 10/22/24 History cephalexin 500 mg capsule 500 mg PO TID #15 caps 10/23/24 Unknown Rx oxycodone 5 mg tablet 5 mg PO Q6H PRN pain 7 days #20 10/23/24 10/29/24 Rx tabs finasteride 5 mg tablet (Proscar) 5 mg PO DAILY #30 tabs 10/30/24 Unknown Rx sulfamethoxazole 800 1 tab PO BID #14 tabs 10/30/24 Unknown Rx mg-trimethoprim 160 mg tablet (Bactrim DS) tamsulosin 0.4 mg capsule (Flomax) 0.4 mg PO QHS #30 caps 10/30/24 Unknown Rx Allergy/AdvReac Type Severity Reaction Status Date / Time risperidone (From Risperdal) Allergy ANXIETY Verified 11/13/24 07:46 Family History Mother Hyperlipidemia Father Hyperlipidemia Surgical History Hx of colonoscopy Hx of cystoscopy Hx of cystoscopy History of testicular surgery History of ankle surgery Social History household members: other details: Lives with others in residential home number of children: 0 Smoking Status: Never smoker alcohol intake: never substance use type: does not use EXAM Physical Exam Const Vital Signs: 11/13/24 07:33 11/13/24 09:33 Temperature 98 F Temperature Source Temporal Pulse Rate 96 71 Respiratory Rate 14 18 Blood Pressure 126/88 H 109/76 Blood Pressure Mean 100 87 Pulse Ox 98 97 Oxygen Delivery Method Room Air Room Air MDM MDM MDM Narrative Medical decision making narrative: 44-year-old male with past medical history of urolithiasis, HTN who presents for evaluation of hematuria. 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 Patient follows with Dr. Rush. He had a cystoscopylithoplexy and laser of large bladder stones and removal of left stent on 10/30. I did personally review his operative note. Differential diagnosis includes but is not limited to hematuria, urinary retention, UTI, urolithiasis, hydronephrosis. NS bolus ordered. Will BladderScan the patient. Basic labs ordered with CT abdomen pelvis without contrast. Patient was bladder scan in our emergency department, bladder scan less than 200 mL. Patient not retaining urine. He was able to void in our emergency department without difficulty. No gross hematuria. CBC without leukocytosis. Patient has baseline anemia of 11.9. This was compared to previous labs. He has thrombocytosis of 496. BMP unremarkable without significant electrolyte abnormality or VAL. UA is positive for blood, leuk esterase, WBC. Negative for bacteria and nitrates. However still concerning for UTI. Urine culture sent. CT abdomen pelvis shows multiple nonobstructive bilateral intrarenal calculi. No evidence of obstructed uropathy at this time. Small bilateral inguinal hernias containing fat worse on the right side. Prostatic enlargement with identification of the bladder base. Fatty infiltration of the liver. Patient's hematuria likely secondary to UTI. He has no urinary retention or gross hematuria to indicate Fisher catheter placement. On chart review, patient has a urine culture from 2023 that grew out normal oral princess. However given patient's recent procedure, will cover him more broadly with a 7-day course of Levaquin. Follow-up with urology. Return back to the ED if symptoms change or worsen. Patient and retirement care worker confirmed understanding of the plan. Patient is stable to discharge home. Impression: 1. UTI 2. Hematuria 3. History of urolithiasis requiring ureteral stent Lab Data Labs: Laboratory Results - last 24 hr 11/13/24 11/13/24 08:40 09:10 WBC 6.9 RBC 4.13 L Hgb 11.9 L Hct 35.4 L MCV 85.7 MCH 28.8 MCHC 33.6 RDW Std Deviation 42.4 RDW Coeff of Jaime 13.5 Plt Count 496 H MPV 8.3 Immature Gran % (Auto) 0.700 Neut % (Auto) 54.5 Lymph % (Auto) 33.5 Moore % (Auto) 6.8 Eos % (Auto) 3.6 Baso % (Auto) 0.9 Absolute Neuts (auto) 3.8 Absolute Lymphs (auto) 2.32 Nucleated RBC % 0 Sodium 135 Potassium 3.8 Chloride 102 Carbon Dioxide 23.5 Anion Gap 10 BUN 16 Creatinine 1.02 Estim Creat Clear Calc 93.00 Est GFR (MDRD) Non-Af 92 BUN/Creatinine Ratio 15.6 Glucose 115 H Calcium 9.7 Urine Color Yellow Urine Clarity Sl. Cloudy Urine pH 7.0 Ur Specific Dixon 1.015 Urine Protein 30 H Urine Glucose (UA) Normal Urine Ketones Negative Urine Occult Blood 250 H Urine Nitrite Negative Urine Bilirubin Negative Urine Urobilinogen Normal Ur Leukocyte Esterase 100 H Urine RBC 10-25 SEEN Urine WBC 10-25 SEEN Ur Squamous Epith Cells 0 SEEN Urine Bacteria 0 SEEN Urine Mucus 0 SEEN Radiography Diagnostic Testing: Clinical Impression(s) from Imaging Studies Abdomen/Pelvis CT 11/13/24 08:06 IMPRESSION: Multiple nonobstructive bilateral intrarenal calculi. No evidence of obstructive uropathy at this time. Small bilateral inguinal hernias containing fat worse on the right side. Prostatic enlargement with indentation of the bladder base. Fatty infiltration of the liver. Reading Location: [facility] Discharge Plan Triage Chief Complaint: Complaint ED Provider: Cristian Hua Dx/Rx/DC Orders Prescriptions: No Action quetiapine 150 mg tablet extended release 24 hr 100 mg PO 0700 Patient Comments: TAKE 1 TABLET BY MOUTHEONCE DAILY AT 4PM ammonium lactate 12 % cream 1 applic topical DAILY atorvastatin 40 mg tablet 40 mg PO DAILY Certavite-Antioxidant 18-400 mg-mcg tablet 1 tab PO DAILY clonidine HCl 0.2 mg tablet 0.2 mg PO BID doxazosin 2 mg tablet 2 mg PO QHS fluticasone propionate [Allergy Relief (fluticasone)] 50 mcg/actuation spray,suspension 2 spray intranasal DAILY Rx Instructions: administer into each nostril losartan 100 mg tablet 100 mg PO DAILY nabumetone 500 mg tablet 500 mg PO BID PRN (Reason: pain) Patient Comments: take 1 tablet by mouth twice a day oxcarbazepine 600 mg tablet 600 mg PO BID Neosporin (vkd-zup-exsiy) 3.5mg-400 unit- 5,000 unit/gram ointment 1 applic topical TID PRN (Reason: dry skin) Rx Instructions: To inside of nose for dry patches folic acid 0.4 MG tablet 0.4 mg PO DAILY@0800 fenofibrate nanocrystallized 145 MG tablet 145 mg PO DAILY Fish Oil 1 EACH capsule 3 ea PO DAILY Claritin Liqui-Gel 10 MG capsule 10 mg PO DAILY garlic 200 MG tablet 350 mg PO DAILY quetiapine 200 mg tablet 200 mg PO 1600 clonazepam 0.5 mg tablet 0.25 mg PO TID cephalexin 500 mg capsule 500 mg PO TID Qty: 15 0RF oxycodone 5 mg tablet 5 mg PO Q6H PRN (Reason: pain) 7 Days Qty: 20 0RF sulfamethoxazole-trimethoprim [Bactrim DS] 800-160 mg tablet 1 tab PO BID Qty: 14 0RF tamsulosin [Flomax] 0.4 mg capsule 0.4 mg PO QHS Qty: 30 1RF finasteride [Proscar] 5 mg tablet 5 mg PO DAILY Qty: 30 1RF Primary Care Provider: Ramiro Sheets Referrals: Ramiro Sheets MD [Primary Care Provider] - Print Language: Greenlandic
--- OUTSIDE RECORDS SUMMARY | 2024-11-13 08:22 | XMS RPT_ITS | CCD ---
Author Organization [facility] Care Team Providers Care Sed [employer] Teacher Name Role Phone Dr. Ramiro Rosa Primary Care Provider Dr. Ramiro Rosa Referring Provider NORRIS Calvillo Attending Provider [phone] NORRIS Isidro Attending Provider Ramiro Rosa MD Primary Care Provider Ramiro Rosa MD Primary Care Provider Ramiro Rosa Primary Care Provider Dr. Ramiro Rosa Primary Care Provider Dr. Ramiro Rosa Referring Provider NORRIS Isidro Attending Provider Dr. Ramiro Rosa Primary Care Provider Dr. Ramiro Rosa Referring Provider NORRIS Isidro Attending Provider Dr. Ramiro Rosa MD Primary Care Provider [phone] Dr. Dajuan Morrison MD Attending Provider Dr. Dajuan Dickson MD Referring Provider Ramiro Ware Primary Care Provider Dr. Ramiro Rosa MD Primary Care Provider Dr. Dajuan Morrison MD Attending Provider Dr. Dajuan Dickson MD Referring Provider Pipe Goins MD, Dr. [place] Emergency Provider Carla HERNANDEZ, Dr. Yamileth Best [...] Care Unavailabl e ZACH CARDENAS Attending Unavailable Neyda HERNANDEZ, Dr. Mandujano Attending Provider Carla HERNANDEZ, Dr. Yamileth Best Referring Provider Adri HERNANDEZ, Dr. Salvador Duran Attending Provider Adri HERNANDEZ, Dr. Salvador Duran Referring Provider Moe HERNANDEZ, Dr. Rubio Primary Care Provider [place] Mares Attending Unavailable Moe, Ramiro Primary Care Unavailable Yamileth Aguirre Admitting Unavailable Salvador Rush Consulting Unavailable Yamileth Aguirre Consulting Unavailable Moe, Ramiro Primary Care Unavailable AdriSalvador Attending Unavailable Salvador Rush Referring Unavailable Delbert Faye Attending Unavailable Moe, Ramior Primary Care Unavailable Yamileth Aguirre Referring Unavailable Friend, Michael Consulting Unavailable Friend, Michael Attending Unavailable Moe, Ramiro Primary Care Unavailable Moe, Ramiro Referring Unavailable Friend, Michael Attending Unavailable Moe, Ramiro Primary Care Unavailable Moe, Ramiro Referring Unavailable Black OLS, Dajuan Attending Unavailable Moe, Ramiro Primary Care Unavailable Black OLS, Dajuan Attending Unavailable Black OLS, Dajuan Referring Unavailable Moe, Ramiro Primary Care Unavailable Moe, Ramiro Primary Care Unavailable Yamileth Aguirre Admitting Unavailable Yamileth Aguirre Consulting Unavailable Yamileth Aguirre Attending Unavailable [place] Mares Attending Unavailable AdriSalvador Consulting Unavailable Kotsonis, [place] F Consulting Unavailable Moe, Ramiro Primary Care Unavailable Salvador Rush Attending Unavailable Salvador Rush Referring Unavailable RAMIRO ROSA Attending Unavailable RAMIRO ROSA Primary Care Unavailable RAMIRO ROSA Attending Unavailable RAMIRO ROSA Primary Care Unavailable RAMIRO ROSA Attending Unavailable RAMIRO ROSA Referring Unavailable RAMIRO ROSA Primary Care Unavailable Allergies Allergy Classification Reported Allergen(s) Allergy Type Date of Onset Reaction(s) Facility risperiDONE (1 source) risperiDONE Drug Allergy 5 Anxiety [facility] (15 sources) risperiDONE; Translations: [RISPERIDONE] Drug Allergy 5 Mental Status Change [facility] (20 sources) risperiDONE Drug Allergy 5 [facility] (1 source) risperiDONE Drug Allergy 5 [facility] Repository Medications Current Medications Medication Drug [...] sources) Aminoglycoside Antibacterial, Polymyxin-class Antibacterial Start: 10-15-2024 iacwmcng-gorvhhdfju-c olymyxin (Neosporin) 5-400-5000 ointment Apply topically 3 times daily. 28 g 2 10/15/2024 Active Start: 11-05-2023 Neomycin-Bacit racnzn-Polymyxnb (Neosporin (Ack-Lcz-Rtxkw)) 3.5mg-400 unit- 5,000 unit/gram ointment Active 1 NMA TOPICAL THREE TIMES A DAY as needed for dry skin November 05, 2023 12:00am To inside of nose for dry patches Start: 02-19-2022 End: 10-15-2024 fxqnsxgv-zthzcrefjd-hqhczila n (Neosporin) ointment APPLY TOPICALLY TO INSIDE OF NOSE 3 TIMES DAILY NEEDED FOR DRY PATCHES 02/19/2022 10/15/2024 Discontinued (Reorder) Comment on above: APPLY TOPICALLY TO I NSIDE OF NOSE 3 TIMES DAILY NEEDED FOR DRY PATCHES cephalexin 500 mg oral capsule (5 sources) Cephalosporin Antibacterial Start: take 1 capsule by mouth three times daily Cephalexin 500 mg capsule Active 500 mg PO THREE TIMES A DAY 15 0 October 23, 2024 12:00am Start: 09-27-2024 End: 10-04-2024 take 1 capsule by mouth twice daily [...] 5 days. clonazePAM 0.5 mg oral tablet (14 sources) Benzodiazepine Start: take 0.5 tablet by mouth three times daily clonazePAM (KlonoPIN) 0.5 MG tablet Take 0.5 tablets (0.25 mg) by mouth 3 times daily. 10/15/2024 Active Start: 10-15-2024 take 0.25 mg by mout h three times daily Clonazepam 0.5 mg tablet Active 0.25 mg PO THREE TIMES A DAY October 15, 2024 12:00am Start: 10-05-2024 take 1 tablet by marcell th three times daily clonazePAM (KLONOPIN) 0.5 mg tablet Take 0.5 mg by mouth three times a day. 10/05/2024 Active Start: 04-08-2024 End: 10-15-2024 take 0.25 mg by mouth twice daily clonazePAM (KlonoPIN) 0.5 MG tablet Take 0.25 mg by mouth 2 times daily. 04/08/2024 10/15/2024 Discontinued docosahexaenoic acid 120 mg / eicosapentaenoic acid [...] two times a day for 7 days. finasteride 5 mg oral tablet (1 source) 5-alpha Reductase Inhibitor Start: 10-30-2024 take 1 tablet by mouth once daily Finasteride (Proscar) 5 mg tablet Active 5 mg PO DAILY 04 06October 30, 2024 12:00am fluticasone propionate 0.05 mg/actuat metered dose nasal [...] Start: 07-08-2018 take [address] [facility] once daily Loratadine (Claritin Liqui-Gel) 10 MG [...] tablet by mouth daily. 0 02/19/2022 Active Qdcrbtsolxhq-Ivnp-Hgkrr Acid (Certavite-Antioxidant) 18-400 mg-mcg tablet (7 sources) Start: 05-29-2023 Multivitamin-I michell-Folic Acid (Certavite-Antioxidant) 18-400 mg-mcg tablet Active 1 {tbl} PO DAILY May 29, 2023 1:00am Start: 05-29-2023 Multivitamin-I michell-Folic Acid (Certavite-Antioxidant) 18-400 mg-mcg tablet Active 1 {tbl} PO DAILY May 29, 2023 12:00am Start: 05-29-2023 take 1 tablet by marcell th once daily Pnxpgqlqseej-Ioca-Dbpls Acid (Certavite-Antioxidant) 18-400 mg-mcg tablet Active 1 TABLET PO DAILY May 29, 2023 1:00am Start: 05-29-2023 take 1 tablet by marcell th once daily Ftwgcsshqeli-Hvuo-Bawkr Acid (Certavite-Antioxidant) 18-400 mg-mcg tablet Active 1 TABLET PO DAILY May 29, 2023 12:00am multivitamin/iron/folic acid (CERTAVITE-ANTIOXIDANT ORAL) (4 sources) multivitamin/iro n/folic acid (CERTAVITE-ANTIOXIDANT ORAL) Take by mouth. Active multivitamin/iro n/folic acid (CERTAVITE-ANTIOXIDANT ORAL) Take by mouth. 0 Active Comment on above: Take by mouth. nabumetone 500 mg oral tablet (20 sources) Nonsteroidal Anti-inflammatory Drug Start: 3 End: 5 take 1 tablet by mouth twice daily [...] Take 500 mg by mouth . omega 0-izs-ghl-fish oil 300 mg-100 mg- 150 mg-1,000 mg cap (4 sources) Start: 02-19-2022 take 3 capsules by mouth once daily omega 0-sft-tbg-fish oil 300 mg-100 mg- 150 mg-1,000 mg cap TAKE 3 CAPSULES (3000MG) BY MOUTH ONCE EVERY DAY 02/19/2022 Active Start: 02-19-2022 take 3 capsules by m outh once daily omega 1-mvf-pxl-fish oil 300 mg-100 mg- 150 mg-1,000 mg cap TAKE 3 CAPSULES (3000MG) BY MOUTH ONCE EVERY DAY 0 02/19/2022 Active Comment on above: TAKE 3 CAPSULES (300 0MG) BY MOUTH ONCE EVERY DAY [place]-3 Fatty Acids-Fish Oil (Fish Oil 1,000 Mg Capsule) 1 EACH capsule (7 sources) Start: 07-08-2018 [place]-3 Fatty Acids-Fish Oil (Fish Oil 1,000 Mg Capsule) 1 EACH capsule Active 3 NMA PO DAILY July 08, 2018 1:00am Start: 07-08-2018 [place]-3 Fatty Acids-Fish Oil (Fish Oil 1,000 Mg Capsule) 1 EACH capsule Active 3 NMA PO DAILY July 08, 2018 12:00am Start: 07-08-2018 [place]-3 Fatty Acids-Fish Oil (Fish Oil 1,000 Mg Capsule) 1 EACH capsule Active 3 EACH PO DAILY July 08, 2018 12:00am Start: 07-08-2018 [place]-3 Fatty Acids-Fish Oil (Fish Oil 1,000 Mg Capsule) 1 EACH capsule Active 3 EACH PO DAILY July 08, 2018 1:00am [place]-3 Fatty Acids-Fish Oil (Fish Oil) 1 EACH capsule (3 sources) Start: 07-08-2018 [place]-3 Fatty Acids-Fish Oil (Fish Oil) 1 EACH [...] (7AM,8PM) oxyCODONE hydrochloride 5 mg oral tablet (5 sources) Opioid Agonist Start: 10-23-2024 take 1 tablet by mouth every six hours as needed for pain Oxycodone 5 mg tablet Active 5 mg PO EVERY 6 HOURS as needed for pain 20 7 0 October 23, 2024 Calculus of left kidney Calculus of kidney Start: 10-09-2024 End: 10-15-2024 take 1 tablet by mouth every four hours as needed for pain Oxycodone 5 mg Tablet Discontinued 5 mg PO EVERY 4 HOURS NEEDED as needed for Pain Score 4-10 10 3 0 October 09, 2024 October 15, 2024 10:17am Calculus of left kidney Calculus of kidney QUEtiapine 200 mg oral tablet (20 sources) Atypical Antipsychotic Start: 10-15-2024 Quetiap ine 200 mg tablet Active 200 mg PO 1600 October 15, 2024 12:00am Start: 04-14-2024 take 1 tablet by marcell th once daily QUEtiapine (SEROquel) 100 MG tablet Take 100 mg by mouth daily. 04/14/2024 Active Start: 05-29-2023 Quetiapine 150 mg tablet extended release 24 hr Active 100 mg PO 07May 29, 2023 11:06am Start: 02-09-2022 End: 05-29-2023 take 1 tablet by mouth every twenty-four hours Quetiapine 150 mg tablet extended release 24 hr Discontinued NMA PO February 09, 2022 12:00am May 29, 2023 11:08am Start: 02-09-2022 End: 04-20-2024 take 150 mg by mouth once daily Quetiapine Active 150 MG PO DAILY May 29, 2023 11:06am take 1 tablet by mouth once QUEt iapine (SEROQUEL) 200 mg tablet Take 200 mg by mouth every afternoon. Active Comment on above: Take 150 mg by mouth . sulfamethoxazole 800 mg / trimethoprim 160 mg oral tablet (1 source) Dihydrofolate Reductase Inhibitor Antibacterial, Sulfonamide Antimicrobial Start: 10-31-19 Sulfamethoxazole- Trimethoprim (Bactrim Ds) 800-160 mg tablet Active 1 {tbl} PO TWICE A DAY 14 October 30, 2024 12:00am tamsulosin hydrochloride 0.4 mg oral capsule (1 source) alpha-Adrenergic Laisha Start: 10-31-19 take 1 capsule by mouth at bedtime Tamsulosin (Flomax) 0.4 mg capsule Active 0.4 mg PO AT BEDTIME 30 October 30, 2024 12:00am Completed/Discontinued Medications Medication Drug Class(es) Dates Sig (Normalized) Sig (Original) acetaminophen 325 mg / HYDROcodone bitartrate 5 mg oral tablet (10 sources) Opioid Agonist Start: 07-08-2018 End: 07-11-2018 Hydrocodone-Acetami nophen 1 TABLET tablet Discontinued 1 {tbl} PO EVERY 6 HOURS NEEDED as needed for Pain 10 3 0 July 08, 2018 1:00am July 10, 2018 1:00am July 11, 2018 1:09am Calculus of kidney Calculus of kidney Start: 07-08-2018 End: 07-11-2018 take 1 tablet by mouth every six hours as needed Hydrocodone-Acetaminophen Discontinued 1 TABLET PO EVERY 6 HOURS NEEDED 10 3 July 08, 2018 1:00am July 11, 2018 1:09am acetaminophen 325 mg / oxyCODONE hydrochloride 5 mg oral tablet (10 sources) Opioid Agonist Start: 03-03-2021 End: 05-29-2023 Oxycodone-Acetaminophen 1 TABLET tablet Discontinued 1 {tbl} PO EVERY 6 HOURS NEEDED as needed for Pain 12 3 0 March 03, 2021 May 29, 2023 11:07am Calculus of distal left ureter Calculus of ureter Start: 03-03-2021 End: 05-29-2023 take 1 tablet by mouth every six hours as needed Oxycodone-Acetaminophen Discontinued 1 TABLET PO EVERY 6 HOURS NEEDED 12 3 March 03, 2021 May 29, 2023 11:07am amoxicillin 875 mg / clavulanate 125 mg oral tablet (7 sources) Penicillin-class Antibacterial Start: 05-29-2023 End: 12-16-2023 Amoxicillin-Pot Clavulanate 875-125 mg tablet Discontinued 1 {tbl} PO TWICE A DAY 20 May 29, 2023 1:00am December 16, 2023 3:32pm Start: 05-29-2023 take 1 tablet by marcell th twice daily Amoxicillin-Pot Clavulanate Active 1 TABLET PO TWICE A DAY May 29, 2023 1:00am bisacodyl 5 mg delayed release oral tablet (5 sources) Stimulant Laxative Start: 11-12-2023 End: 12-16-2023 take 1 tablet by mouth once Bisacodyl (Dulcolax (Bisacodyl)) 5 mg tablet,delayed release (DR/EC) Discontinued 5 mg PO ONCE 8 0 November 12, 2023 12:00am December 16, 2023 3:32pm Colonoscopy prep Take as directed by physician, per colonoscopy [...] tablet by marcell two times a day. dexamethasone 6 mg oral tablet (10 sources) Corticosteroid Start: End: take 1 tablet by mouth once daily Dexamethasone 6 mg tablet Discontinued 6 mg PO DAILY 5 February 09, 2022 12:00am May 29, 2023 11:07am fenofibrate 145 mg oral tablet (20 sources) Peroxisome Proliferator Receptor alpha Agonist Start: End: take 1 tablet by mouth once daily Fenofibrate Nanocrystallized 145 mg tablet Discontinued 145 mg PO DAILY May 29, 2023 1:00am May 29, 2023 11:07am Comment on above: Take 1 tablet by marcell once daily. Qxwhdzzz-Sog-Pp-Lycop en-Lutein (Certavite Sr-Antioxidant Tab) 1 EACH tablet (10 sources) Start: End: Jhnjtofb-Xwi-Lu-Lycopen -Lutein (Certavite Sr-Antioxidant Tab) 1 EACH tablet Discontinued 1 NMA PO DAILY July 08, 2018 1:00am May 29, 2023 11:07am Start: 07-08-2018 End: 05-29-2023 Mbcqazql-Uxi-Pu-Lycopen-Lute in (Certavite Sr-Antioxidant Tab) 1 EACH tablet Discontinued 1 NMA PO DAILY July 08, 2018 12:00am May 29, 2023 10:07am Start: 07-08-2018 End: 05-29-2023 Wqykyuhd-Zod-Im-Lycopen-Lute in (Certavite Sr-Antioxidant Tab) 1 EACH tablet Discontinued 1 EACH PO DAILY July 08, 2018 1:00am May 29, 2023 11:07am Start: 07-08-2018 End: 05-29-2023 Ilhmzdxl-Iju-Ka-Lycopen-Lute in (Certavite Sr-Antioxidant Tab) 1 EACH tablet Discontinued 1 EACH PO DAILY July 08, 2018 12:00am May 29, 2023 10:07am Start: 07-08-2018 Vxyuroal-Wyj-O e-Eopgvfy-Wtizgd (Certavite Sr-Antioxidant Tab) 1 EACH tablet Active 1 EACH PO DAILY July 08, 2018 12:00am Start: 07-08-2018 Cfpgepst-Zii-U j-Msbvntv-Dlsqoj (Certavite Sr-Antioxidant Tab) 1 EACH tablet Active 1 EACH PO DAILY July 08, 2018 1:00am multivitamin with minerals (Cerovite) 18-400 mg-mcg tablet tablet (1 source) End: 04-18-2023 multivitamin with minerals (Cerovite) 18-400 mg-mcg tablet tablet Take by mouth. 0 04/18/2023 Discontinued (Therapy completed) ondansetron 4 mg disintegrating oral tablet (10 sources) Serotonin-3 Receptor Antagonist Start: 07-08-2018 End: 05-29-2023 take 1 tablet by mouth every eight hours as needed for nausea Ondansetron 4 MG tablet Discontinued 4 mg PO EVERY 8 HOURS NEEDED as needed for Nausea July 08, 2018 1:00am May 29, 2023 11:07am polyethylene glycol 3350 04662 mg powder for oral solution (5 sources) Osmotic Laxative Start: 11-12-2023 End: 10-15-2024 Polyethylene Glycol 3350 (Miralax) 17 gram/dose powder Discontinued 238 g PO ONCE 238 0 November 12, 2023 12:00am October 15, 2024 10:17am Colonoscopy prep Mix 8.3oz bottle with 2-32oz bottles of yellow or orange Gatorade. Use as directed by Physician. Problems Active Problems Problem Classification Problem Date Documented Date Episodic/Chronic Abdominal pain (18 sources) Abdominal pain; Translations: [Unspecified abdominal pain] [...] Onset: 10-09-2017 02-19-2022 Chronic Headache; including migraine (9 sources) Headache; Translations: [Headache] 04-25-2022 Episodic Mood disorders (20 sources) Recurrent major depression in full remission; Translations: [Major depressive disorder, recurrent, in full remission] Onset: 10-19-2019 02-19-2022 Chronic Other circulatory disease (9 sources) Elevated blood pressure; Translations: [Elevated blood-pressure reading, without diagnosis of hypertension] 04-25-2022 Episodic Other circulatory disease (8 sources) H/O: hypertension; Translations: [Personal history of other diseases of the circulatory system] 10-08-2024 Episodic Other diseases of kidney and ureters (1 source) Hydronephrosis with renal and ureteral calculous obstruction; Translations: [Hydronephrosis with renal and ureteral calculous obstruction] Onset: 10-30-2024 Episodic Other injuries and conditions due to [...] hematuria] Onset: 08-31-2020 02-19-2022 Episodic Viral infection (12 sources) Disease caused by 2019-nCoV; Translations: [COVID-19] Episodic Past or Other Problems Problem Classification Problem Date Documented Date Episodic/Chronic Genitourinary symptoms and ill-defined conditions (20 sources) Benign essential microscopic hematuria; Translations: [Benign essential microscopic hematuria] Onset: 08-31-2020 02-19-2022 Episodic Mood disorders (1 source) Mood disorder due to known physiological condition, unspecified; Translations: [Mood disorder due to known physiological condition, unspecified] Onset: 03-06-2025 Episodic Mood disorders (20 sources) Mood disorders [...] [Encounter for screening for diabetes mellitus] Onset: 12-24-2023 04-18-2023 Episodic Residual codes; unclassified (20 sources) Obstructive sleep apnea syndrome; Translations: [Obstructive sleep apnea (adult) (pediatric)] Onset: 10-24-2023 Resolved: 10-15-2024 10-24-2023 Chronic Spondylosis; intervertebral disc disorders; other back problems (20 sources) Acute low back pain; Translations: [Acute midline low back pain without sciatica] Onset: 08-27-2022 Episodic Results Test Name Value Interpretation Reference Range Facility 36on 11-04-2024 36 Rx sent. Follow up a s scheduled. [facility] 36 Fax from [facility] Prescription Request: omega-3 (Fish Oil) 1000 MG capsule Last medication check: 10/24/23 Last physical exam: 04/20/24 Next scheduled appointment: 04/22/25 Last date of refill on this medication 10/02/24 ( qty 90 refill 1) [facility] MR/[id number] 11-02-2024 MR/POSTOPAN2 [facility] Medical Records Department [address] [place] [place] [address] Anesthesia Postop Eval II 11/02/24 1001 MR#: [id number] Acct: [id number] Name: CHAN BURCIAGA Rep #: [id number] : 1980 44 From: Vinay Maciel MD PCP: Dr. Ramiro Rosa MD Status:DEP [facility] [place] Race: C [place] [facility] Anesthesia Postop Eval I Sum Postop Eval Completion status Anesthesia document: Postop Eval 1 completed: Yes Anesthesia Postop Eval I Summary Anesthesia Postop Eval I Summary: Anesthesia Postop Eval I: Assessment Summary Airway patent Yes 10/30/24 15:09 LOTUS NOTES [email or web address].ACAR Spontaneous unlabored Yes 10/30/24 15:09 LOTUS NOTES DEVELOPER.ACAR respirations Mental status nausea No 10/30/24 15:09 LOTUS NOTES DEVELOPER.ACAR Vomiting No 10/30/24 15:09 LOTUS NOTES DEVELOPER.ACAR Anesthesia Postop Eval I: Fluid Summary Crystalloid volume administer 1,000 10/30/24 15:09 LOTUS NOTES DEVELOPER.ACAR (ml) Colloids volume administered ( ml) Blood Product volume administered (ml) Total IV fluid infused 1,000 10/30/24 15:09 LOTUS NOTES DEVELOPER.ACAR Anesthesia Postop Eval I: Summary Notes Anesthesia Complication No 10/30/24 15:09 LOTUS NOTES DEVELOPER.ACAR Anesthesia Complication Comment: Post-operative progress note Anesthesia: Postop Eval II Evaluation Mental status: Awake and Calm Pain Level: 1 nausea: No Vomiting: No Complications Anesthesia Complication: No 11/02/24 1002 Date Vinay Maciel MD Cosigner Signature: Date CC: Signed Normal [facility] Anion gap in Serum or Plasma Ordered By: Salvador Rush on 10-30-2024 Anion gap [Moles/Vol] 13 mmol/L 5-15 [facility] BUN/creatinine ratioOrdered By: Salvador Rush on 10-30-2024 Urea nitrogen/Creatinine [Mass ratio] 11.7 mg/mg 10- [facility] Bilirubin, totalOrdered By: Salvdaor Rush on 10-30-2024 Bilirubin [Mass/Vol] 0.51 mg/dL 0.00-1.30 [facility] CBC-Complete Blood Cnt No Di ffon 10-30-2024 Erythrocyte distribution width (RBC) [Ratio] 13.5 % Normal 11.6-14.6 [facility] Comment on above: Performed By: #### L 500.4050, L100.0500, [id number] #### [facility] [address] [place], [address] Hematocrit (Bld) [Volume fraction] 36.9 % Low 40-54 [facility] Comment on above: Performed By: #### L 500.4050, L100.0500, [id number] #### [facility] [address] [place], [address] Hemoglobin (Bld) [Mass/Vol] 12.4 g/dL Low 13.0-16.5 [facility] Comment on above: Performed By: #### L 500.4050, L100.0500, [id number] #### [facility] [address] [place], [address] MCH (RBC) [Entitic mass] 28.7 pg Normal 27.0-32.0 [facility] Comment on above: Performed By: #### L 500.4050, L100.0500, [id number] #### [facility] [address] [place], [address] MCHC (RBC) [Mass/Vol] 33.6 g/dL Normal 32-36 [facility] Comment on above: Performed By: #### L 500.4050, L100.0500, [id number] #### [facility] [address] [place], [address] MCV (RBC) [Entitic vol] 85.4 fL Normal 80-94 [facility] Comment on above: Performed By: #### L 500.4050, L100.0500, [id number] #### [facility] [address] [place], [address] Platelet mean volume (Bld) [Entitic vol] 9.0 fL Normal 6.2-12.0 [facility] Comment on above: Performed By: #### L 500.4050, L100.0500, [id number] #### [facility] [address] [place], [address] Platelets (Bld) [#/Vol] 399 10*3/uL Normal 150-450 [facility] Comment on above: Performed By: #### L 500.4050, L100.0500, [id number] #### [facility] [address] [place], [address] RBC (Bld) [#/Vol] 4.32 10*6/uL Low 4.6-6.2 [facility] Comment on above: Performed By: #### L 500.4050, L100.0500, [id number] #### [facility] [address] [place], [address] RDW SD 42.9 fl Normal 35.1-43.9 [facility] Comment on above: Performed By: #### L 500.4050, L100.0500, [id number] #### [facility] [address] [place], [address] WBC (Bld) [#/Vol] 15.1 10*3/uL High 4.4-11.0 [facility] Comment on above: Performed By: #### L 500.4050, L100.0500, [id number] #### [facility] [address] [place], [address] Carbon dioxide, total [Moles /volume] in Central venous bloodOrdered By: Salvador Rush on 10-30-2024 CO2 [Moles/Vol] 20.9 mmol/L Low 21.0-32.0 [facility] Chloride assayOrdered By: Lana Rush on 10-30-2024 Chloride [Moles/Vol] 98 mmol/L 98-108 [facility] Comprehensive Metabolic Prof ilon 10-30-2024 Albumin [Mass/Vol] 4.2 g/dL Normal 3.5-5.0 [facility] Comment on above: Performed By: #### L 500.4050, L100.0500, [id number] #### [facility] [address] [place], [address] Albumin/Globulin [Mass ratio] 1.7 {ratio} Normal 0.9-2.4 [facility] Comment on above: Performed By: #### L 500.4050, L100.0500, [id number] #### [facility] [address] [place], [address] ALK PHOS 93 U/L Normal 40-129 [facility] Comment on above: Performed By: #### L 500.4050, L100.0500, [id number] #### [facility] [address] [place], [address] ALT [Catalytic activity/Vol] 64 U/L High <=46 [facility] Comment on above: Result Comment: Hemo lysis present, Results??could be affected. ?? Performed By: #### L 500.4050, L100.0500, [id number] #### [facility] [address] [place], [address] AST [Catalytic activity/Vol] 57 U/L High <=37 [facility] Comment on above: Result Comment: Hemo lysis present, Results??could be affected. ?? Performed By: #### L 500.4050, L100.0500, [id number] #### [facility] [address] [place], [address] Bilirubin [Mass/Vol] 0.51 mg/dL Normal 0.00-1.30 [facility] Comment on above: Performed By: #### L 500.4050, L100.0500, [id number] #### [facility] [address] [place], [address] BUN/CRE 11.7 RATIO Normal 10-20 [facility] Comment on above: Performed By: #### L 500.4050, L100.0500, [id number] #### [facility] [address] [place], [address] Calcium [Mass/Vol] 9.6 mg/dL Normal 7.6-11.0 [facility] Comment on above: Performed By: #### L 500.4050, L100.0500, [id number] #### [facility] Laboratory [address] [place], [address] Chloride [Moles/Vol] 98 mmol/L Normal 98-108 [facility] Comment on above: Performed By: #### L 500.4050, L100.0500, L400.0001 #### [facility] Laboratory [address] [place], [address] CO2 [Moles/Vol] 20.9 mmol/L Low 21.0-32.0 [facility] Comment on above: Performed By: #### L 500.4050, L100.0500, L400.0001 #### [facility] [address] [place], [address] Creatinine [Mass/Vol] 1.09 mg/dL Normal 0.70-1.20 [facility] Comment on above: Performed By: #### L 500.4050, L100.0500, L400.0001 #### [facility] Laboratory [address] [place], [address] ECRCL 84.44 ml/min Normal 50-250 [facility] Comment on above: Performed By: #### L 500.4050, L100.0500, L400.0001 #### [facility] [address] [place], [address] GAP 13 Normal 5-15 [facility] Comment on above: Performed By: #### L 500.4050, L100.0500, L400.0001 #### [facility] [address] [place], [address] GFR/1.73 sq M.predicted among non-blacks MDRD (S/P/Bld) [Vol rate/Area] 85 mL/min/{1.73_m2} Normal >60 [facility] Comment on above: Result Comment: mL/m in/1.73m2 CKD-EPI Creatinine Equation (2020) Performed By: #### L 500.4050, L100.0500, L400.0001 #### [facility] Laboratory [address] [place], [address] Globulin (S) [Mass/Vol] 2.5 g/dL Normal 2.2-4.2 [facility] Comment on above: Performed By: #### L 500.4050, L100.0500, L400.0001 #### [facility] Laboratory [address] [place], [address] Glucose [Mass/Vol] 122 mg/dL High 70-99 [facility] Comment on above: Performed By: #### L 500.4050, L100.0500, L400.0001 #### [facility] [address] [place], [address] Potassium [Moles/Vol] 4.7 mmol/L Normal 3.3-5.1 [facility] Comment on above: Result Comment: Hemo lysis present, Results??could be affected. ?? Performed By: #### L 500.4050, L100.0500, L400.0001 #### [facility] [address] [place], [address] Sodium [Moles/Vol] 132 mmol/L Low 133-145 [facility] Comment on above: Performed By: #### L 500.4050, L100.0500, L400.0001 #### [facility] [address] [place], [address] T PROT 6.7 g/dL Normal 5.9-8.4 [facility] Comment on above: Performed By: #### L 500.4050, L100.0500, L400.0001 #### [facility] Laboratory [address] [place], [address] Urea nitrogen [Mass/Vol] 13 mg/dL Normal 4-19 [facility] Comment on above: Performed By: #### L 500.4050, L100.0500, L400.0001 #### [facility] Laboratory [address] [place], [address] Discharge Instructionon 10-05 Discharge Instruction [facility] Medical Records Department [address] [place] [address] Instructions for Home/Discharge Instructions 10/30/24 1331 MR#: [id number] Acct: [id number] Name: CHAN BURCIAGA Rep #: [id number] : 1980 44 From: Salvador Rush MD PCP: Dr. Ramiro Rosa MD Status:REG [facility] Discharge Instructions Diet Discharge Diet: No restrictions DC O2, CPAP, BIPAP needs Home O2 Discharge instructions: No Dressing / Incision Discharge Activity: Return to Normal Activity Follow Up Care Please Follow Up With: Salvador Rush MD When: Call [phone] for an appointment Test Results: Test results from this visit will be discussed in further detail at your follow-up appointment, if applicable. Discharge Plan Admission Primary Reason for Your Visit: laser bladder stones Attending Provider: Salvador Rush Primary Care Provider: Ramiro Rosa Instructions Print Language: Algerian Discharge Orders/Prescriptions Prescriptions: New sulfamethoxazole-trimethopr im [Bactrim DS] 800-160 mg tablet 1 tab PO BID Qty: 14 0RF tamsulosin [Flomax] 0.4 mg capsule 0.4 mg PO QHS Qty: 30 1RF finasteride [Proscar] 5 mg tablet 5 mg PO DAILY Qty: 30 1RF Continued quetiapine 150 mg tablet extended release 24 hr 100 mg PO 0700 Patient Comments: TAKE 1 TABLET BY MOUTHEONCE [...] mg tablet 600 mg PO BID Neosporin (arc-isk-bmwvx) 3.5mg-400 unit- 5,000 unit/gram ointment 1 applic [...] 200 MG tablet 350 mg PO DAILY quetiapine 200 mg tablet 200 mg PO 1600 clonazepam 0.5 mg tablet 0.25 mg PO TID cephalexin 500 mg capsule 500 mg PO TID Qty: 15 0RF oxycodone 5 mg tablet 5 mg PO Q6H PRN (Reason: pain) 7 Days Qty: 20 0RF Referrals / Follow Up: Ramiro Rosa MD [Primary Care Provider] - Salvador Rush MD [Med Staff - Active Staff] - Disposition Disposition (needs filled in before D/C Order can be placed): Home, Self Care 10/30/24 1332 Salvador Rush MD CC: Dr. Ramiro Rosa MD Signed Normal [facility] Erythrocyte distribution th ratioOrdered By: Salvador Rush on 10-30-2024 Erythrocyte distribution width (RBC) [Ratio] 13.5 % 11.6-14.6 [facility] Erythrocyte distribution wid standard deviationOrdered By: Salvador Rush on 10-30-2024 Erythrocyte distribution width (RBC) [Ratio] 42.9 fl 35.1-43.9 [facility] Glomerular filtration rate ( GFR) estimation/1.73 sq m using serum, plasma, or whole bOrdered By: Salvador Rush on 10-30-2024 GFR/1.73 sq M.predicted among non-blacks MDRD (S/P/Bld) [Vol rate/Area] 85 mL/min/{1.73_m2} >60 [facility] Comment on above: mL/min/1.73m2 CKD-EP I Creatinine Equation (2020) Hematocrit Auto (Bld) [Volum e fraction]Ordered By: Salvador Rush on 10-30-2024 Hematocrit (Bld) [Volume fraction] 36.9 % Low 40-54 [facility] Hemoglobin measurementOrdere d By: Salvador Rush on 10-30-2024 Hemoglobin (Bld) [Mass/Vol] 12.4 g/dL Low 13.0-16.5 [facility] Laboratory - Chemistry and C hemistry - challengeOrdered By: Salvador Rush on 10-30-2024 AST [Catalytic activity/Vol] 57 U/L High <38 [facility] Comment on above: Hemolysis present, R esults could be affected. MCV (mean corpuscular volume ) determinationOrdered By: Salvador Rush on 10-30-2024 MCV (RBC) [Entitic vol] 85.4 fL 80-94 [facility] MR/POSTOP.ANEon 10-30-2024 MR/POSTOP.ANE [facility] Medical Records Department [address] [place] [address] Anesthesia Postop Eval I 10/30/24 1508 MR#: [id number] Acct: [id number] Name: CHAN BURCIAGA Rep #: [id number] : 1980 44 From: Oliverio Candelaria CRNA PCP: Dr. Ramiro Rosa MD Status:REG SDC Y Race: C Location: [place] [address] Anesthesia: Postop Eval I Current Vital Signs Temperature: 99.9 F Pulse Rate: 96 Blood Pressure: 125/74 Respiratory Rate: 16 Pulse Ox: 93 Oxygen Delivery Method: Nasal Cannula Assessment Airway patent: Yes Spontaneous unlabored respirations: Yes nausea: No Vomiting: No Anesthesia Complication: No Fluid Hydration Crystalloid volume administer (ml): 1,000 Total IV fluid infused: 1,000 Progress Note Anesthesia document: Postop Eval 1 completed: Yes 10/30/24 1509 Date Oliverio Candelaria CRNA Cosigner Signature: Date CC: Signed Normal [facility] Mean corpuscular hemoglobin (MCH) determinationOrdered By: Salvador Rush on 10-30-2024 MCH (RBC) [Entitic mass] 28.7 pg 27.0-32.0 [facility] Mean corpuscular hemoglobin concentration (MCHC) determinationOrdered By: Salvador Rush on 10-30-2024 MCHC (RBC) [Mass/Vol] 33.6 g/dL 32-36 [facility] Mean platelet volume determi nationOrdered By: Salvador Rush on 10-30-2024 Platelet mean volume (Bld) [Entitic vol] 9.0 fL 6.2-12.0 [facility] Operative Reporton Operative Report [facility] Medical Records Department [address] [place] [address] Operative Report 10/30/24 1410 MR#: [id number] Acct: [id number] Name: CHAN BURCIAGA Rep #: [id number] : 1980 44 From: Salvador Rush MD PCP: Dr. Ramiro Rosa MD Status:[facility] [place] Location[place] [facility] Operative Report (Standard) Operative Information Date of Procedure: 10/30/24 Pre-Operative Diagnosis: Large bladder stones status post laser of left stones Post-Operative Diagnosis: Same Surgery/Procedure Performed: Cystolitholapaxy and laser of large bladder stones and removal of left stent euclid operator: No Type of Anesthesia: General RN Documented Start/Stop Times: Operation Date: 10/30/24 12:40 Case Time Into Pre-Op 10/30/24 10:37 Procedure Start Time: 13:46 Procedure Stop Time: 14:14 Select all DRAINS/GRAFTS/IMPLANTS that apply: None Estimated Blood Loss: None Specimen collected: No Description of surgery: This is a 44-year-old male who last week and lasered multiple bunch of stones in the ureter tube and up in the kidney there is a stent on that left side he had a whole bunch of really hard large stones in the bladder today we can laser the stones in the bladder and remove the stent. 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 He will go home today and I will have him come back to the office for checkup and we will plan to do a TURP in the near future Surgical Findings: Large stones in the bladder lasered completely and removed stones were greater than 3 cm in size Complications Complications: No Admit VTE Documentation VTE Present on Admission: No VTE Mechan Device Prophylaxis: SCD's VTE Pharm Prophylaxis ordered?: No 10/30/24 1414 Cosigner Signature (if applicable): CC: Dr. Ramiro Rosa MD; Dr. Salvador Rush MD Signed ADDENDUM by Dr. Salvador Rush MD on 11/03/24 at 1458 Addendum for coding purposes pleease note that the stones in the bladder were greater than 2.5 cm in size probably about 3 to 4 cm in size and total very large hard stones took over an hour to laser the stones from the patient's bladder 11/03/24 1458 Cosigner Signature (if applicable): cc: Dr. Ramiro Rosa MD; Dr. Salvador Rush MD * Signed Normal [facility] Platelet countOrdered By: Lana Rush on 10-30-2024 Platelets (Bld) [#/Vol] 399 10*3/uL 150-450 [facility] Potassium measurement (mass/ volume)Ordered By: Salvador Rush on 10-30-2024 Potassium (Unsp spec) [Mass/Vol] 4.7 mmol/L 3.3-5.1 [facility] Comment on above: Hemolysis present, R esults could be affected. RBC Auto (Bld) [#/Vol]Ordere d By: Salvador Rush on 10-30-2024 RBC (Bld) [#/Vol] 4.32 10*6/uL Low 4.6-6.2 [facility] Serum creatinine measurement (mass/volume)Ordered By: Salvador Rush on 10-30-2024 Creatinine [Mass/Vol] 1.09 mg/dL 0.70-1.20 [facility] Serum globulin measurementOr dered By: Salvador Rush on 10-30-2024 Globulin (S) [Mass/Vol] 2.5 g/dL 2.2-4.2 [facility] Serum glucose measurement (m ass/volume)Ordered By: Salvador Rush on 10-30-2024 Glucose [Mass/Vol] 122 mg/dL High 70-99 [facility] Serum or plasma alanine rousseau otransferase (ALT) measurementOrdered By: Salvador Rush on 10-30-2024 ALT [Catalytic activity/Vol] 64 U/L High <47 [facility] Comment on above: Hemolysis present, R esults could be affected. Serum or plasma albumin ashlee urement (mass/volume)Ordered By: Salvador Rush on 10-30-2024 Albumin [Mass/Vol] 4.2 g/dL 3.5-5.0 [facility] Serum or plasma albumin/glob ulin mass ratioOrdered By: Salvador Rush on 10-30-2024 Albumin/Globulin [Mass ratio] 1.7 {ratio} 0.9-2.4 [facility] Serum or plasma alkaline monica sphatase measurementOrdered By: Salvador Rush on 10-30-2024 ALP [Catalytic activity/Vol] 93 U/L 40-129 [facility] Serum or plasma calcium ashlee urement (mass/volume)Ordered By: Salvador Rush on 10-30-2024 Calcium [Mass/Vol] 9.6 mg/dL 7.6-11.0 [facility] Serum or plasma urea nitroge n measurement (mass/volume)Ordered By: Salvador Rush on 10-30-2024 Urea nitrogen [Mass/Vol] 13 mg/dL 4-19 [facility] Sodium levelOrdered By: Salvador Rush on 10-30-2024 Sodium [Moles/Vol] 132 mmol/L Low 133-145 [facility] Total proteinOrdered By: Colby Rush on 10-30-2024 Protein [Mass/Vol] 6.7 g/dL 5.9-8.4 [facility] Urinalysis, Completeon 10-30 BACTERIA Normal None Seen [facility] Comment on above: Order Comment: CLEAN CATCH Result Comment: NO S PECIMEN REC'D Performed By: #### L 500.4050, L100.0500, L400.0001 #### [facility] Laboratory [address] [place], [address] BILIRUBIN URINE Normal Negative [facility] Comment on above: Order Comment: CLEAN CATCH Result Comment: NO S PECIMEN REC'D Performed By: #### L 500.4050, L100.0500, L400.0001 #### [facility] [address] [place], [address] Clarity (U) Normal Clear [facility] Comment on above: Order Comment: CLEAN CATCH Result Comment: NO S PECIMEN REC'D Performed By: #### L 500.4050, L100.0500, L400.0001 #### [facility] [address] [place], [address] Color (U) Normal Yellow [facility] Comment on above: Order Comment: CLEAN CATCH Result Comment: NO S PECIMEN REC'D Performed By: #### L 500.4050, L100.0500, L400.0001 #### [facility] [address] [place], [address] EPI,SQUAMOUS Normal 0-5 [facility] Comment on above: Order Comment: CLEAN CATCH Result Comment: NO S PECIMEN REC'D Performed By: #### L 500.4050, L100.0500, L400.0001 #### [facility] [address] [place], [address] GLUCOSE, UR Normal Normal [facility] Comment on above: Order Comment: CLEAN CATCH Result Comment: NO S PECIMEN REC'D Performed By: #### L 500.4050, L100.0500, L400.0001 #### [facility] [address] [place], [address] KETONE UR Normal Negative [facility] Comment on above: Order Comment: CLEAN CATCH Result Comment: NO S PECIMEN REC'D Performed By: #### L 500.4050, L100.0500, L400.0001 #### [facility] [address] [place], [address] LEUK ESTERASE Normal Negative [facility] Comment on above: Order Comment: CLEAN CATCH Result Comment: NO S PECIMEN REC'D Performed By: #### L 500.4050, L100.0500, L400.0001 #### [facility] [address] [place], [address] Mucus Ql (Urine sed) Normal [facility] Comment on above: Order Comment: CLEAN CATCH Result Comment: NO S PECIMEN REC'D Performed By: #### L 500.4050, L100.0500, L400.0001 #### [facility] [address] [place], [address] Nitrite Ql (U) Normal Negative [facility] Comment on above: Order Comment: CLEAN CATCH Result Comment: NO S PECIMEN REC'D Performed By: #### L 500.4050, L100.0500, L400.0001 #### [facility] [address] [place], [address] OCCULT BLOOD-UR Normal Negative [facility] Comment on above: Order Comment: CLEAN CATCH Result Comment: NO S PECIMEN REC'D Performed By: #### L 500.4050, L100.0500, L400.0001 #### [facility] [address] [place], [address] pH UR Normal 5.0 - 8.0 [facility] Comment on above: Order Comment: CLEAN CATCH Result Comment: NO S PECIMEN REC'D Performed By: #### L 500.4050, L100.0500, L400.0001 #### [facility] [address] [place], [address] PROT DIPSTX Normal Negative [facility] Comment on above: Order Comment: CLEAN CATCH Result Comment: NO S PECIMEN REC'D Performed By: #### L 500.4050, L100.0500, L400.0001 #### [facility] [address] [place], [address] RBC Normal 0-5 [facility] Comment on above: Order Comment: CLEAN CATCH Result Comment: NO S PECIMEN REC'D Performed By: #### L 500.4050, L100.0500, L400.0001 #### [facility] [address] [place], [address] SP.GR. DIPSTX Normal 1.002-1.03 0 [facility] Comment on above: Order Comment: CLEAN CATCH Result Comment: NO S PECIMEN REC'D Performed By: #### L 500.4050, L100.0500, L400.0001 #### [facility] [address] [place], [address] UR Preservative Normal [facility] Comment on above: Order Comment: CLEAN CATCH Result Comment: NO S PECIMEN REC'D Performed By: #### L 500.4050, L100.0500, L400.0001 #### [facility] [address] [place], [address] UROBILI Normal Normal [facility] Comment on above: Order Comment: CLEAN CATCH Result Comment: NO S PECIMEN REC'D Performed By: #### L 500.4050, L100.0500, L400.0001 #### [facility] [address] [place], [address] WBC Normal 0-5 [facility] Comment on above: Order Comment: CLEAN CATCH Result Comment: NO S PECIMEN REC'D Performed By: #### L 500.4050, L100.0500, L400.0001 #### [facility] [address] [place], [address] White blood cell (WBC) count Ordered By: Salvador Rush on 10-30-2024 WBC (Bld) [#/Vol] 15.1 10*3/uL High 4.4-11.0 [facility] MR/PAT.ANEon 10-28-2024 MR/PAT.ANE [facility] Medical Records Department [address] [facility] [place] [address] PAT - Anesthesia 10/28/242254 MR#: [id number] Acct: [id number] Name: CHAN BURCIAGA Rep #: [id number] : 1980 44 From: Baljeet Keen MD PCP: Dr. 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 - event planning manager: Anesthesia History - event planning manager Hx Hospitalization Yes: 10/09/24 KIDNEY STONE 10/28/24 16:22 Any Problems With Anesthesia No 10/28/24 16:22 Cholinesterase deficiency No 10/28/24 16:22 You/Your Family Experience No 10/28/24 16:22 fever (hyperthermia) with Relationship Recent Exposure to Contagious No 10/23/24 06:29 Disease Does patient have nerve No 10/28/24 16:22 stimulator Patient instructed to have device shut off --Does patient have Pacemaker or ICD? When Was Last Pacemaker Check QUESTION #4 FULL TEXT: You/Your Family Experience fever (hyperthermia) with Anesthesia Last Oral Intake Last Oral intake: Last Oral Intake NPO since Meds taken in AM with sips of water? Meds patient instructed to take am of surgery PONV PONV - event planning manager: PONV - event planning manager Female No 10/28/24 16:22 HX of Motion Sickness No 10/28/24 16:22 HX of N/V After Surgery No 10/28/24 16:22 Non-Smoker Yes 10/28/24 16:22 Duration of Surgery greater No 10/28/24 16:22 than 60 minutes Number of Risk Factors 1 10/28/24 16:22 PONV Score Low Risk 10/28/24 16:22 Height Weight Height Weight: Anesthesia: Height Weight Height 5 ft 5 in 10/23/24 06:29 Respiratory Assessment Respiratory Assessment - event planning manager: Respiratory Tract Infection Hx - event planning manager Hx Respiratory Tract Infection No 10/28/24 16:22 STOP Sleep Apnea STOP Sleep Apnea - event planning manager: STOP Sleep Apnea - event planning manager Hx Hypertension Yes: CONTROLLED WITH MED 10/28/24 16:22 Hx Sleep Apnea No 10/28/24 16:22 CPAP BIPAP Do you snore loudly (louder No 10/28/24 16:22 than talking or can be heard Do you often feel tired/ No 10/28/24 16:22 fatigued/ sleepy during daytime? Has anyone observed you stop No 10/28/24 16:22 breathing during sleep? STOP Results Negative 10/28/24 16:22 QUESTION #5 FULL TEXT : Do you snore loudly (louder than talking or can be heard through closed doors)? 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 Specify any problems Hx of Preganancy in last 3 N/A 10/28/24 16:22 Months Nurse Filling Out Transfusion [facility] 10/28/24 16:22 Questions: Date: 10/28/24 10/28/24 16:22 Time: 16:23 10/28/24 16:22 Patient unable to answer at this time (ie. confused, unrespo /Reproduction History /Reproductive History - event planning manager: /Reproductive Hx- event planning manager Hx Now No 10/28/24 16:22 Gestational Age (in weeks): EDC: Hx Hx Para Hx Section SAB No 10/15/24 10:22 [facility] Medical History Anxiety Dietary restriction Lives in care home Arthritis Back pain Non-smoker Shortness of breath on exertion Intellectual disability Recurrent major depression in full remission Hyperlipidemia Essential hypertension Urinary tract infection with hematuria Home Medications ???Medication ???Instructions ???Recorded ???Last Taken ???Type fenofibrate nanocrystallized 145 145 mg PO DAILY 07/08/18 10/23/24 History mg tablet folic acid 400 mcg tablet 0.4 mg PO DAILY@0800 07/08/1810/04 History garlic 200 mg tablet 350 mg PO DAILY 07/08/18 10/22/24 History loratadine 10 mg capsule (Claritin 10 mg PO DAILY 07/08/18 10/22/24 History Liqui-Gel) omega-3 fatty acids-fish oil 340 3 ea PO DAILY 07/08/18 10/22/24 Hi story mg-1,000 mg capsule (Fish Oil) ammonium lactate 12 % topical cr (more content not included)... Normal [facility] Discharge Instructionon 10-05 Discharge Instruction [facility] Medical Records Department [address] [place] [address] Instructions for Home/Discharge Instructions 10/23/24 0849 MR#: [id number] Acct: [id number] Name: CHAN BURCIAGA Rep #: [id number] : 1980 44 From: Salvador Rush MD PCP: Dr. Ramiro Rosa MD Status:REG SDC Discharge Instructions Diet Discharge Diet: No restrictions DC O2, CPAP, BIPAP needs Home O2 Discharge instructions: No Dressing / Incision Discharge Activity: Return to Normal Activity and May Not Drive (while taking narcotic pain medications.) Dressing / Incision Call your doctor if you observe: Fever of 101 or Higher Follow Up Care Please Follow Up With: Salvador Rush MD When: Call [phone] for an appointment Test Results: Test results from this visit will be discussed in further detail at your follow-up appointment, if applicable. Discharge Plan Admission Primary Reason for Your Visit: laser stone and stent Attending Provider: Salvador Rush Primary Care Provider: Ramiro Rosa Instructions Print Language: Algerian Discharge Orders/Prescriptions Prescriptions: New cephalexin 500 mg capsule 500 mg PO TID Qty: 15 0RF oxycodone 5 mg tablet 5 mg PO Q6H PRN (Reason: pain) 7 Days Qty: 20 0RF Continued quetiapine 150 mg tablet extended release 24 hr 100 mg PO 0700 Patient Comments: TAKE 1 TABLET BY MOUTHEONCE [...] mg tablet 600 mg PO BID Neosporin (tmx-mnt-wcryv) 3.5mg-400 unit- 5,000 unit/gram ointment 1 applic [...] 200 MG tablet 350 mg PO DAILY quetiapine 200 mg tablet 200 mg PO 1600 clonazepam 0.5 mg tablet 0.25 mg PO TID Referrals / Follow Up: Ramiro Rosa MD [Primary Care Provider] - Disposition Disposition (needs filled in before D/C Order can be placed): Home, Self Care 10/23/24 0849 Salvador Rush MD CC: Dr. Ramiro Rosa MD Signed [facility] MR/POSTOP.ANE 10-23-2024 MR/POSTOP.[facility] Medical Records Department [address] [place] [address] Anesthesia Postop Eval I 10/23/24 0858 MR#: [id number] Acct: [id number] Name: CHAN BURCIAGA Rep #: [id number] : 1980 44 From: Kirk Askew CRNA PCP: Dr. Ramiro Rosa MD Status:REG [facility] [place] Race: C Location: [place] [address] Anesthesia: Postop Eval I Current Vital Signs Temperature: 97 F Pulse Rate: 97 Blood Pressure: 113/78 Respiratory Rate: 16 Pulse Ox: 94 Assessment Airway patent: Yes Spontaneous unlabored respirations: Yes nausea: No Vomiting: No Anesthesia Complication: No Fluid Hydration Crystalloid volume administer (ml): 800 Total IV fluid infused: 800 Progress Note Anesthesia document: Postop Eval 1 completed: Yes 10/23/24 0859 Date Kirk Askew LOTUS NOTES DEVELOPER Cosigner Signature: Date CC: Signed [facility] MR/QULDYSON3og 10-23-2024 MR/POSTOPAN2 [facility] Medical Records Department [address] [place] [address] Anesthesia Postop Eval II 10/23/24 1542 MR#: [id number] Acct: [id number] Name: CHAN BURCIAGA Rep #: [id number] : 1980 44 From: Padmini Page CRNA PCP: Dr. Ramiro Rosa MD Status:DEP [facility] [place] Race: C [place] [facility] Anesthesia Postop Eval I Sum Postop Eval Completion status Anesthesia document: Postop Eval 1 completed: Yes Anesthesia Postop Eval I Summary Anesthesia Postop Eval I Summary: Anesthesia Postop Eval I: Assessment Summary Airway patent Yes 10/23/24 08:58 LOTUS NOTES DEVELOPER.TNES Spontaneous unlabored Yes 10/23/24 08:58 LOTUS NOTES DEVELOPER.TNES respirations Mental status nausea No 10/23/24 08:58 LOTUS NOTES DEVELOPER.TNES Vomiting No 10/23/24 08:58 LOTUS NOTES DEVELOPER.TNES Anesthesia Postop Eval I: Fluid Summary Crystalloid volume administer 800 10/23/24 08:58 LOTUS NOTES DEVELOPER.TNES (ml) Colloids volume administered ( ml) Blood Product volume administered (ml) Total IV fluid infused 800 10/23/24 08:58 LOTUS NOTES DEVELOPER.TNES Anesthesia Postop Eval I: Summary Notes Anesthesia Complication No 10/23/24 08:58 LOTUS NOTES DEVELOPER.TNES Anesthesia Complication Comment: Post-operative progress note Anesthesia: Postop Eval II Evaluation Mental status: Awake Pain Level: 2 nausea: No Vomiting: No 10/23/24 1542 Date Padmini Page LOTUS NOTES DEVELOPER Cosigner Signature: Date CC: Signed Normal [facility] Operative Reporton 5 Operative Report [facility] Medical Records Department [address] [place] [address] Operative Report 10/23/24 0849 MR#: [id number] Acct: [id number] Name: ALEXANDRE BURCIAGAWN Rep #: [id number] : 1980 44 From: Salvador Rush MD PCP: Dr. Ramiro Rosa MD Status:[facility] Location: [place] [address]-1 Operative Report (Standard) Operative Information Date of Procedure: 10/23/24 Pre-Operative Diagnosis: Kidney stones and ureteral stones large and multiple Post-Operative Diagnosis: The same Surgery/Procedure Performed: Cystoscopy left ureteroscopy laser lithotripsy of multiple stones in the ureter multiple stones in the kidney and left stent placement euclid operator: No Type of Anesthesia: General RN Documented Start/Stop Times: Operation Date: 10/23/24 07:30 Case Time Into Pre-Op 10/23/24 06:07 Out of Pre-Op 10/23/24 07:20 Anesthesia Start 10/23/24 07:25 Into Room 10/23/24 07:25 Procedure Start 10/23/24 07:38 Procedure End 10/23/24 08:45 Procedure Start Time: 07:38 Procedure Stop Time: 08:50 Select all DRAINS/GRAFTS/IMPLANTS that apply: Drains Drain details: 6 Salvadorean by 26 cm stent Estimated Blood Loss: None Specimen collected: No Description of surgery: Patient was taken back to the operating room after smooth induction of general anesthesia he was placed supine on the operating room table and then in dorsolithotomy position. The penis and testicles were prepped and draped in usual sterile fashion went into the bladder with a 21 Salvadorean rigid cystourethroscope he had a large amount of bladder stones that were known and they can take care of these today since he has obstructing stones working at work on first I then grabbed the stent and pulled the stent out to the meatus and then through the stent I put a wire up on the left side and then over the wire went in with a flexible ureteroscope I first encountered 2 very large stones in the ureter these were lasered completely using the thulium laser I then worked my way up the ureter and found another stone this was lasered again then up in the kidney I lasered a stone in the upper pole that was quite large stone in the midpole that was quite large and then multiple large stone in the lower pole I was not able to reach 1 stone in the lower pole this will have to be treated with shockwave lithotripsy in the future. I then worked my way down the ureter lasered some other stones as a went down the ureter I then went back in with a semirigid ureteroscope and lasered some distal stones fragments that were coming down the ureter and then I came out of the bladder drained the bladder and then we placed a stent up on the left side stent coiled in the kidney bladder in good position the bladder was drained plan will be to bring him back next week for stent removal and we will laser the bladder stones. Surgical Findings: Multiple stones in the ureter lasered completely multiple stones in the kidney with most of them lasered the lower pole stone in the left kidney could not be reached what to do shockwave lithotripsy Complications Complications: No Admit VTE Documentation VTE Present on Admission: No VTE Mechan Device Prophylaxis: SCD's VTE Pharm Prophylaxis ordered?: No 10/23/24 0852 Cosigner Signature (if applicable): CC: Dr. Ramiro Rosa MD; Dr. Salvador Rush MD Signed [facility] MR/PAT.MANISH 10-15-2024 MR/PAT.[facility] Medical Records Department [address] [place] [address] PAT - Anesthesia 10/15/24 1113 MR#: [id number] Acct: [id number] Name: CHAN BURCIAGA Rep #: [id number] : 1980 43 From: Sandro Julian MD PCP: Dr. Ramiro Rosa MD Status:PRE [facility] [place] Race: C [place] [facility] Pre-Assessment Diagnosis/Proposed Procedure Planned Operative Procedure(s): LEFT URETEROSCOPY LASER STENT Anesthesia History Anesthesia History - event planning manager: Anesthesia History - event planning manager Hx Hospitalization Yes: 10/09/24 KIDNEY STONE 10/15/24 [...] take am of surgery PONV PONV - event planning manager: PONV - event planning manager Female No 10/15/24 10:22 HX of Motion Sickness No 10/15/24 10:22 HX of N/V After Surgery No 10/15/24 10:22 Non-Smoker No 10/15/24 10:22 Duration of Surgery greater No 10/15/24 10:22 than 60 minutes Number of Risk Factors PONV Score Height Weight Height Weight: Anesthesia: Height Weight Height 5 ft 4.96 in 10/09/24 10:19 Respiratory Assessment Respiratory Assessment - event planning manager: Respiratory Tract Infection Hx - event planning manager Hx Respiratory Tract Infection No: COUGH 10/15/24 10:22 STOP Sleep Apnea STOP Sleep Apnea - event planning manager: STOP Sleep Apnea - event planning manager Hx Hypertension Yes: CONTROLLED WITH MED 10/15/24 [...] Tobacco Use History Tobacco Use History - event planning manager: Tobacco Use History - event planning manager Tobacco Use Non-smoker 03/02/21 15:59 Smoking Status Never smoker 10/15/24 10:22 Hx Tobacco Use No 10/15/24 10:22 Years Smoking Packs Smoked per Day Smoking Cessation Date was within the last 15 years Hx Smoking Cessation Date Hx Smoking Cessation Counseling Hematologic Medial History Hematologic Hx - event planning manager: 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 Normal [facility] Office Visiton 10-15-2024 Follow-up visit [id number] Cb Burciaga 1980 M Date Provider Department Center 10/15/2024 [id number][facility] Family History Family Status - Relation Status Age at Mother Father Alive Level of Service:66450 [place] OFFICE/OUTPATIENT ESTABLISHED MOD MDM 30 MIN Reason for Visit and Comments: Follow-up [880718] - 6m follow up, medication check, recent ED visit for kidney stone [facility] Progress Noteon 10-15-2024 Progress Note Remission, continue Trileptal 600 mg and Seroquel 100 mg daily and clonazepam 0.25 mg 3 times a day [facility] Progress Note Controlled, continue atorvastatin 40 mg daily and fenofibrate 145 mg daily Normal [facility] Progress Note Currently has a sten t in place is waiting for surgery to break up the stone. Follow-up with urology as scheduled. Normal [facility] Progress Note Controlled, continue clonidine 0.2 mg, losartan 100 mg, Normal [facility] Progress Note 10/15/2024 Chan Burciaga (: 1980) [...] Ramiro Rosa MD 10/15/2024 12:39 PM Normal [facility] 12 Lead EKGon 10-09-2024 12 Lead EKG [facility] Cardiovascular Services [address] [place] [address] 12 Lead EKG 10/09/24 0958 MR#: [id number] Acct: [id number] Name: CHAN BURCIAGA Rep #: [id number] : 1980 43 From: Delbert Faye MD Attending Dr: Dr. [place] Mares MD Status : DIS REAGAN Ordering Dr: Sandro Julian MD Date: 10/09/24 [place] [facility] Sex: M C Admitted: 10/08/24 Test Reason [...] in Lateral leads Confirmed by Delbert Faye ([id number]), editorial project manager KATELYNN RODRIGUEZ ([id number]) on 10/12/2024 9:11:11 AM Referred By: CARLA Confirmed By: Delbert Faye 10/12/24910 Date Delbert Faye MD CC: Dr. Sandro Julian MD; Dr. Ramiro Rosa MD; Dr. [place] Mares MD Signed Normal [facility] Absolute lymphocyte countOrd ered By: Carla on 10-09-2024 Lymphocytes Auto (Unsp spec) [#/Vol] 2.90 10*3/uL 0.83-4.51 [facility] Absolute neutrophil countOrd ered By: Carla on 10-09-2024 Neutrophils (Bld) [#/Vol] 4.9 10*3/uL 2.0-7.7 [facility] Anion gap in Serum or Plasma Ordered By: Carla on 10-09-2024 Anion gap [Moles/Vol] 12 mmol/L 5-15 [facility] Automated lymphocyte count a s percentage of total leukocytesOrdered By: Carla on 10-09-2024 Lymphocytes/100 WBC Auto (Unsp spec) 31.8 % 19-41 [facility] BUN/creatinine ratioOrdered By: on 10-09-2024 Urea nitrogen/Creatinine [Mass ratio] 12.4 mg/mg 10-20 [facility] Basophil percentageOrdered B y: Carla on 10-09-2024 Basophils/100 WBC (Bld) 0.7 % 0-1 [facility] Bilirubin, totalOrdered By: Carla on 10-09-2024 Bilirubin [Mass/Vol] 0.38 mg/dL 0.00-1.30 [facility] CBC W/Diff, Automatedon 06-0 6-2024 Absolute Lymph 2.90 X10 3/uL Normal 0.83-4.51 [facility] Comment on above: Performed By: #### L 500.4050, L100.0100 ####[facility] [address] [place], [address] Absolute Neut 4.9 X10 3/uL Normal 2.0-7.7 [facility] Comment on above: Performed By: #### L 500.4050, L100.0100 ####[facility] [address] [place], [address] Basophils/100 WBC (Bld) 0.7 % Normal 0-1 [facility] Comment on above: Performed By: #### L 500.4050, L100.0100 ####[facility] [address] [place], [address] Eosinophils/100 WBC (Bld) 5.5 % High 0-5 [facility] Comment on above: Performed By: #### L 500.4050, L100.0100 ####[facility] [address] [place], [address] Erythrocyte distribution width (RBC) [Ratio] 13.7 % Normal 11.6-14.6 [facility] Comment on above: Performed By: #### L 500.4050, L100.0100 ####[facility] [address] [place], [address] Hematocrit (Bld) [Volume fraction] 38.1 % Low 40-54 [facility] Comment on above: Performed By: #### L 500.4050, L100.0100 ####[facility] [address] [place], [address] Hemoglobin (Bld) [Mass/Vol] 12.7 g/dL Low 13.0-16.5 [facility] Comment on above: Performed By: #### L 500.4050, L100.0100 ####[facility] [address] [place], [address] IG% 0.300 Normal 0.0-0.9 [facility] Comment on above: Result Comment: IG% - Immature Granulocytes (promyelocytes, myelocytes and metamyelocytes) > 1% indicates that a LEFT SHIFT is Present. Performed By: #### L 500.4050, L100.0100 ####[facility] [address] [place], [address] Lymphocytes/100 WBC (Bld) 31.8 % Normal 19-41 [facility] Comment on above: Performed By: #### L 500.4050, L100.0100 ####[facility] [address] [place], [address] MCH (RBC) [Entitic mass] 28.8 pg Normal 27.0-32.0 [facility] Comment on above: Performed By: #### L 500.4050, L100.0100 ####[facility] [address] [place], [address] MCHC (RBC) [Mass/Vol] 33.3 g/dL Normal 32-36 [facility] Comment on above: Performed By: #### L 500.4050, L100.0100 ####[facility] [address] [place], [address] MCV (RBC) [Entitic vol] 86.4 fL Normal 80-94 [facility] Comment on above: Performed By: #### L 500.4050, L100.0100 ####[facility] [address] [place], [address] Monocytes/100 WBC (Bld) 8.4 % Normal 0-10 [facility] Comment on above: Performed By: #### L 500.4050, L100.0100 ####[facility] [address] [place], [address] Neutrophils/100 WBC (Bld) 53.3 % Normal 47-70 [facility] Comment on above: Performed By: #### L 500.4050, L100.0100 ####[facility] [address] [place], [address] Nucleated RBC (Bld) [#/Vol] 0 10*3/uL Normal 0-5 [facility] Comment on above: Performed By: #### L 500.4050, L100.0100 ####[facility] [address] [place], [address] Platelet mean volume (Bld) [Entitic vol] 8.8 fL Normal 6.2-12.0 [facility] Comment on above: Performed By: #### L 500.4050, L100.0100 ####[facility] [address] [place], [address] Platelets (Bld) [#/Vol] 332 10*3/uL Normal 150-450 [facility] Comment on above: Performed By: #### L 500.4050, L100.0100 ####[facility] [address] [place], [address] RBC (Bld) [#/Vol] 4.41 10*6/uL Low 4.6-6.2 [facility] Comment on above: Performed By: #### L 500.4050, L100.0100 ####[facility] [address] [place], [address] RDW SD 42.9 fl Normal 35.1-43.9 [facility] Comment on above: Performed By: #### L 500.4050, L100.0100 ####[facility] [address] [place], [address] WBC (Bld) [#/Vol] 9.1 10*3/uL Normal 4.4-11.0 [facility] Comment on above: Performed By: #### L 500.4050, L100.0100 ####[facility] [address] [place], [address] Carbon dioxide, total [Moles /volume] in Central venous bloodOrdered By: Yamileth Aguirre on 10-09-2024 CO2 [Moles/Vol] 21.2 mmol/L 21.0-32.0 [facility] Chloride assayOrdered By: Cynthia Aguirre on 10-09-2024 Chloride [Moles/Vol] 104 mmol/L 98-108 [facility] Comprehensive Metabolic Prof ilon 10-09-2024 Albumin [Mass/Vol] 3.9 g/dL Normal 3.5-5.0 [facility] Comment on above: Performed By: #### L 500.4050, L100.0100 ####[facility] [address] [place], [address] Albumin/Globulin [Mass ratio] 1.8 {ratio} Normal 0.9-2.4 [facility] Comment on above: Performed By: #### L 500.4050, L100.0100 ####[facility] [address] [place], [address] ALK PHOS 67 U/L Normal 40-129 [facility] Comment on above: Performed By: #### L 500.4050, L100.0100 ####[facility] [address] [place], [address] ALT [Catalytic activity/Vol] 55 U/L High <=46 [facility] Comment on above: Performed By: #### L 500.4050, L100.0100 ####[facility] [address] [place], [address] AST [Catalytic activity/Vol] 40 U/L High <=37 [facility] Comment on above: Performed By: #### L 500.4050, L100.0100 ####[facility] [address] [place], [address] Bilirubin [Mass/Vol] 0.38 mg/dL Normal 0.00-1.30 [facility] Comment on above: Performed By: #### L 500.4050, L100.0100 ####[facility] [address] [place], [address] BUN/CRE 12.4 RATIO Normal 10-20 [facility] Comment on above: Performed By: #### L 500.4050, L100.0100 ####[facility] [address] [place], [address] Calcium [Mass/Vol] 9.1 mg/dL Normal 7.6-11.0 [facility] Comment on above: Performed By: #### L 500.4050, L100.0100 ####[facility] [address] [place], [address] Chloride [Moles/Vol] 104 mmol/L Normal 98-108 [facility] Comment on above: Performed By: #### L 500.4050, L100.0100 ####[facility] [address] [place], [address] CO2 [Moles/Vol] 21.2 mmol/L Normal 21.0-32.0 [facility] Comment on above: Performed By: #### L 500.4050, L100.0100 ####[facility] [address] [place], [address] Creatinine [Mass/Vol] 1.39 mg/dL High 0.70-1.20 [facility] Comment on above: Performed By: #### L 500.4050, L100.0100 ####[facility] [address] [place], [address] ECRCL 67.68 ml/min Normal 50-250 [facility] Comment on above: Performed By: #### L 500.4050, L100.0100 ####[facility] [address] [place], [address] GAP 12 Normal 5-15 [facility] Comment on above: Performed By: #### L 500.4050, L100.0100 ####[facility] [address] [place], [address] GFR/1.73 sq M.predicted among non-blacks MDRD (S/P/Bld) [Vol rate/Area] 64 mL/min/{1.73_m2} Normal >60 [facility] Comment on above: Result Comment: mL/m in/1.73m2 CKD-EPI Creatinine Equation (2020) Performed By: #### L 500.4050, L100.0100 ####[facility] [address] [place], [address] Globulin (S) [Mass/Vol] 2.2 g/dL Normal 2.2-4.2 [facility] Comment on above: Performed By: #### L 500.4050, L100.0100 ####[facility] [address] [place], [address] Glucose [Mass/Vol] 100 mg/dL High 70-99 [facility] Comment on above: Performed By: #### L 500.4050, L100.0100 ####[facility] [address] [place], [address] Potassium [Moles/Vol] 3.8 mmol/L Normal 3.3-5.1 [facility] Comment on above: Performed By: #### L 500.4050, L100.0100 ####[facility] [address] [place], [address] Sodium [Moles/Vol] 137 mmol/L Normal 133-145 [facility] Comment on above: Performed By: #### L 500.4050, L100.0100 ####[facility] [address] [place], [address] T PROT 6.2 g/dL Normal 5.9-8.4 [facility] Comment on above: Performed By: #### L 500.4050, L100.0100 ####[facility] [address] [place], [address] Urea nitrogen [Mass/Vol] 17 mg/dL Normal 4-19 [facility] Comment on above: Performed By: #### L 500.4050, L100.0100 ####[facility] [address] [place], [address] Consultation - Urologyon Consultation - Urology [facility] Medical Records Department [address] [place] [address] Consultation - Urology 10/09/24 1139 MR#: [id number] Acct: [id number] Name: CHAN BURCIAGA Rep #: [id number] : 1980 43 From: Salvador Rush MD PCP: Dr. Ramiro Rosa MD Status:ADM [facility] Consult Data Date of Consult: 10/09/24 [...] findings a separate setting once everything stable. [facility] Medical History Lives in care home Arthritis Back pain Non-smoker Shortness of breath [...] History mg-400 unit-5,000 unit/gram top oint (Neosporin (qaq-wlb-zmknm)) oxcarbazepine 600 mg tablet 600 mg PO [...] % (Auto) 68.7, Lymph % (Auto) 19.2, Prentiss % (Auto) 8.0, Eos % (Auto) 2.9, [...] Clarity Cloudy, Urine pH 7.0, Ur Specific [place] 1.010, U rine Protein 30 H, Urine Glucose (UA) Normal, Urine Ketones Negative, Urine Occult Blood 250 H, Urine Nitrite Negative, Urine Bilirubin Negative, Urine Urobilinogen Normal, Ur Leukocyte Esterase 25 H, Urine RBC > 100 SEEN, (more content not included)... Normal [facility] Discharge Instructionon Discharge Instruction [facility] Medical Records Department [address] [place] [address] Instructions for Home/Discharge Instructions 10/09/24 1545 MR#: [id number] Acct: [id number] Name: CHAN BURCIAGA Rep #: [id number] : 1980 43 From: [place] Mares MD [...] risk with narcotics therefore I do recommend lsck-msv-tzramrl stool softeners while taking narcotics. Discharge Orders/Prescriptions [...] mg tablet 600 mg PO BID Neosporin (aoi-dgl-rzusa) 3.5mg-400 unit- 5,000 unit/gram ointment 1 applic [...] can be placed): Home, Self Care 10/09/24 8352 [place] Mares MD CC: Dr. Yamileth Aguirre MD; Dr. Ramiro Rosa MD; Dr. [place] Rush MD Signed Normal [facility] Eosinophil percentageOrdered By: Yamileth Aguirre on 10-09-2024 Eosinophils/100 WBC (Bld) 5.5 % High 0-5 [facility] Erythrocyte distribution wid th ratioOrdered By: Yamileth Aguirre on 10-09-2024 Erythrocyte distribution width (RBC) [Ratio] 13.7 % 11.6-14.6 [facility] Erythrocyte distribution wid th standard deviationOrdered By: Yamileth Aguirre on 10-09-2024 Erythrocyte distribution width (RBC) [Ratio] 42.9 fl 35.1-43.9 [facility] Glomerular filtration rate ( GFR) estimation/1.73 sq m using serum, plasma, or whole bOrdered By: Yamileth Aguirre on 10-09-2024 GFR/1.73 sq M.predicted among non-blacks MDRD (S/P/Bld) [Vol rate/Area] 64 mL/min/{1.73_m2} >60 [facility] Comment on above: mL/min/1.73m2 CKD-EP I Creatinine Equation (2020) Hematocrit Auto (Bld) [Volum e fraction]Ordered By: Yamileth Aguirre on 10-09-2024 Hematocrit (Bld) [Volume fraction] 38.1 % Low 40-54 [facility] Hemoglobin measurementOrdere d By: Yamileth Aguirre on 10-09-2024 Hemoglobin (Bld) [Mass/Vol] 12.7 g/dL Low 13.0-16.5 [facility] Immature granulocytes/100 WB C Auto (Bld)Ordered By: [facility] Carla on 10-09-2024 Immature granulocytes/100 WBC (Bld) 0.300 % 0.0-0.9 [facility] Comment on above: IG% - Immature Granu locytes (promyelocytes, myelocytes and metamyelocytes) > 1% indicates that a LEFT SHIFT is Present. Laboratory - Chemistry and C hemistry - challengeOrdered By: Yamileth Aguirre on 10-09-2024 AST [Catalytic activity/Vol] 40 U/L High <38 [facility] MCV (mean corpuscular volume ) determinationOrdered By: Yamileth Carla on 10-09-2024 MCV (RBC) [Entitic vol] 86.4 fL 80-94 [facility] MR/POSTOP.ANEon 10-09-2024 MR/POSTOP.ANE [facility] Medical Records Department [address] [place] [address] Anesthesia Postop Eval I 10/09/24 1302 MR#: [id number] Acct: [id number] Name: CHAN BURCIAGA Rep #: [id number] : 1980 43 From: Jeevan Madden CRNA PCP: Dr. Ramiro Rosa MD Status:ADM IN Y Race: C Location: UT3 HV164-4 Anesthesia: Postop Eval I Current Vital Signs [...] completed: Yes 10/09/24 1303 Date Jeevan Madden LOTUS NOTES DEVELOPER Cosigner Signature: Date CC: Signed Normal [facility] MR/[id number] 10-09-2024 MR/POSTOPAN2 [facility] Medical Records Department [address] [place] [address] Anesthesia Postop Eval II 10/09/24 1338 MR#: [id number] Acct: [id number] Name: CHAN BURCIAGA Rep #: [id number] : 1980 43 From: Sandro Julian MD PCP: Dr. Ramiro Rosa MD Status:ADM IN Y Race: C [facility] Eval I Sum Postop Eval Completion status Anesthesia document: Postop Eval 1 completed: Yes Anesthesia Postop Eval I Summary Anesthesia Postop Eval I Summary: Anesthesia Postop Eval I: Assessment Summary Airway patent Yes 10/09/24 13:03 LOTUS NOTES DEVELOPER.SOBR Spontaneous unlabored Yes 10/09/24 13:03 [employer]US NOTES DEVELOPER.SOBR respirations Mental status Awake,Calm 10/09/24 13:03 [employer]US NOTES DEVELOPER.SOBR nausea No 10/09/24 13:03 LOTUS NOTES DEVELOPER.SOBR Vomiting No 10/09/24 13:03 LOTUS NOTES DEVELOPER.SOBR Anesthesia Postop Eval I: Fluid Summary Crystalloid volume administer 500 10/09/24 13:03 LOTUS NOTES DEVELOPER.SOBR (ml) Colloids volume administered ( ml) Blood Product volume administered (ml) Total IV fluid infused 500 10/09/24 13:03 LOTUS NOTES DEVELOPER.SOBR Anesthesia Postop Eval I: Summary Notes Anesthesia Complication No 10/09/24 13:03 LOTUS NOTES DEVELOPER.SOBR Anesthesia Complication Comment: Post-operative progress note Anesthesia: Postop Eval II Evaluation Mental status: Awake Pain Level: 0 nausea: No Vomiting: No 10/09/24 1338 Date Sandro Regalado Signature: Date CC: Signed Normal [facility] Mean corpuscular hemoglobin (MCH) determinationOrdered By: [facility] on 10-09-2024 MCH (RBC) [Entitic mass] 28.8 pg 27.0-32.0 [facility] Mean corpuscular hemoglobin concentration (MCHC) determinationOrdered By: [facility] on 10-09-2024 MCHC (RBC) [Mass/Vol] 33.3 g/dL 32-36 [facility] Mean platelet volume determi nationOrdered By: [facility] on 10-09-2024 Platelet mean volume (Bld) [Entitic vol] 8.8 fL 6.2-12.0 [facility] Monocyte percentageOrdered B y: [facility] on 10-09-2024 Monocytes/100 WBC (Bld) 8.4 % 0-10 [facility] Neutrophil percentageOrdered By: [facility] on 10-09-2024 Neutrophils/100 WBC (Bld) 53.3 % 47-70 [facility] Nucleated red blood cell per centageOrdered By: [facility] on 10-09-2024 Nucleated RBC/100 WBC (Bld) [Ratio] 0 % 0-5 [facility] Operative Reporton Operative Report [facility] Medical Records Department [address] [place] [address] Operative Report 10/09/24 1246 MR#: [id number] Acct: [id number] Name: CHAN BURCIAGA Rep #: [id number] : 1980 43 From: Salvador Rush MD PCP: Dr. Ramiro Rosa MD Status:ADM IN Location: UT3 HH983-4 Operative Report (Standard) Operative Information Date of Procedure: 10/09/24 Pre-Operative Diagnosis: Left obstructing kidney stone Post-Operative Diagnosis: Same Surgery/Procedure Performed: Cystoscopy and left stent placement euclid operator: No Type of Anesthesia: General RN Documented [...] One of the bladder with a 21 Salvadorean rigid cystourethroscope found that he had a [...] MD; Dr. Salvador Rush MD Signed Normal [facility] Platelet countOrdered By: Cynthia Aguirre on 10-09-2024 Platelets (Bld) [#/Vol] 332 10*3/uL 150-450 [facility] Potassium measurement (mass/ volume)Ordered By: Yamileth Aguirre on 10-09-2024 Potassium (Unsp spec) [Mass/Vol] 3.8 mmol/L 3.3-5.1 [facility] RBC Auto (Bld) [#/Vol]Ordere d By: Yamileth Aguirre on 10-09-2024 RBC (Bld) [#/Vol] 4.41 10*6/uL Low 4.6-6.2 [facility] Serum creatinine measurement (mass/volume)Ordered By: Yamileth Aguirre on 10-09-2024 Creatinine [Mass/Vol] 1.39 mg/dL High 0.70-1.20 [facility] Serum globulin measurementOr dered By: Yamileth Aguirre on 10-09-2024 Globulin (S) [Mass/Vol] 2.2 g/dL 2.2-4.2 [facility] Serum glucose measurement (m ass/volume)Ordered By: Yamileth Aguirre on 10-09-2024 Glucose [Mass/Vol] 100 mg/dL High 70-99 [facility] Serum or plasma alanine rousseau otransferase (ALT) measurementOrdered By: Yamileth Aguirre on 10-09-2024 ALT [Catalytic activity/Vol] 55 U/L High <47 [facility] Serum or plasma albumin ashlee urement (mass/volume)Ordered By: Yamileth Aguirre on 10-09-2024 Albumin [Mass/Vol] 3.9 g/dL 3.5-5.0 [facility] Serum or plasma albumin/glob ulin mass ratioOrdered By: Yamileth Aguirre on 10-09-2024 Albumin/Globulin [Mass ratio] 1.8 {ratio} 0.9-2.4 [facility] Serum or plasma alkaline monica sphatase measurementOrdered By: Yamileth Aguirre 10-09-2024 ALP [Catalytic activity/Vol] 67 U/L 40-129 [facility] Serum or plasma calcium ashlee urement (mass/volume)Ordered By: Yamileth Aguirre on 10-09-2024 Calcium [Mass/Vol] 9.1 mg/dL 7.6-11.0 [facility] Serum or plasma urea nitroge n measurement (mass/volume)Ordered By: Yamileth Aguirre on 10-09-2024 Urea nitrogen [Mass/Vol] 17 mg/dL 4-19 [facility] Sodium levelOrdered By: Treyu mn White on 10-09-2024 Sodium [Moles/Vol] 137 mmol/L 133-145 [facility] Total proteinOrdered By: Trey umn White on 10-09-2024 Protein [Mass/Vol] 6.2 g/dL 5.9-8.4 [facility] White blood cell (WBC) count Ordered By: Yamileth White on 10-09-2024 WBC (Bld) [#/Vol] 9.1 10*3/uL 4.4-11.0 [facility] 36on 10-08-2024 36 Agree, thank you [facility] 36 S: Patient's caregiv er, Iesha, spoke with [facility] nurse regarding abdominal pain and back [...] that Guideline.) Protocols used: Abdominal Pain -ADULT-AH [facility] Abdomen/Pelvis W IV Cont ONL Yon 10-08-2024 Abdomen/Pelvis W IV Cont ONLY [facility] Imaging Services [address] [place] [address] Abdomen/Pelvis W IV Cont ONLY MR#: [id number] Acct: [id number] Name: CHAN BURCIAGA Rep #: [id number] : 1980 M 43 From: dJ Garza PCP: Dr. Ramiro Rosa MD Status: REG ER Study: Abdomen/Pelvis W IV Cont ONLY Date of Exam: Exam# [id number] Ordering Dr: Brad Goins MD PROCEDURE: ABDOMEN/PELVIS [...] onto the urinary bladder wall. Reading Location: [facility] CC: Dr. Ramiro Rosa MD; Dr. Brad Goins MD Rn Utilization Management Um: Signed Normal [facility] Absolute lymphocyte countOrd ered By: Brad Goins on 10-08-2024 Lymphocytes Auto (Unsp spec) [#/Vol] 2.64 10*3/uL 0.83-4.51 [facility] Absolute neutrophil countOrd ered By: Brad Goins on 10-08-2024 Neutrophils (Bld) [#/Vol] 9.5 10*3/uL High 2.0-7.7 [facility] Anion gap in Serum or Plasma Ordered By: Brad Goins on 10-08-2024 Anion gap [Moles/Vol] 15 mmol/L 5-15 [facility] Automated lymphocyte count a s percentage of total leukocytesOrdered By: Brad Goins on 10-08-2024 Lymphocytes/100 WBC Auto (Unsp spec) 19.2 % 19-41 [facility] BUN/creatinine ratioOrdered By: Brad Goins on 10-08-2024 Urea nitrogen/Creatinine [Mass ratio] 13.4 mg/mg 10-20 [facility] Basophil percentageOrdered B y: Brad Goins on 10-08-2024 Basophils/100 WBC (Bld) 0.5 % 0-1 [facility] Bilirubin Test strip Ql (U)O rdered By: Brad Goins on 10-08-2024 Bilirubin Ql (U) Negative Negative [facility] Bilirubin, totalOrdered By: Brad Goins on 10-08-2024 Bilirubin [Mass/Vol] 0.33 mg/dL 0.00-1.30 [facility] CBC W/Diff, Automatedon Absolute Lymph 2.64 X10 3/uL Normal 0.83-4.51 [facility] Comment on above: Performed By: #### L 100.0100, L500.4050 ####[facility] [address] [place], [place], [id number] Absolute Neut 9.5 X10 3/uL High 2.0-7.7 [facility] Comment on above: Performed By: #### L 100.0100, L500.4050 ####[facility] [address] [place], [address] Basophils/100 WBC (Bld) 0.5 % Normal 0-1 [facility] Comment on above: Performed By: #### L 100.0100, L500.4050 ####[facility] [address] [place], [address] Eosinophils/100 WBC (Bld) 2.9 % Normal 0-5 [facility] Comment on above: Performed By: #### L 100.0100, L500.4050 ####[facility] [address] [place], [address] Erythrocyte distribution width (RBC) [Ratio] 13.4 % Normal 11.6-14.6 [facility] Comment on above: Performed By: #### L 100.0100, L500.4050 ####[facility] [address] [place], [address] Hematocrit (Bld) [Volume fraction] 40.6 % Normal 40-54 [facility] Comment on above: Performed By: #### L 100.0100, L500.4050 ####[facility] [address] [place], [address] Hemoglobin (Bld) [Mass/Vol] 13.7 g/dL Normal 13.0-16.5 [facility] Comment on above: Performed By: #### L 100.0100, L500.4050 ####[facility] [address] [place], [address] IG% 0.700 Normal 0.0-0.9 [facility] Comment on above: Result Comment: IG% - Immature Granulocytes (promyelocytes, myelocytes and metamyelocytes) > 1% indicates that a LEFT SHIFT is Present. Performed By: #### L 100.0100, L500.4050 ####[facility] [address] [place], [address] Lymphocytes/100 WBC (Bld) 19.2 % Normal 19-41 [facility] Comment on above: Performed By: #### L 100.0100, L500.4050 ####[facility] [address] [place], [address] MCH (RBC) [Entitic mass] 29.0 pg Normal 27.0-32.0 [facility] Comment on above: Performed By: #### L 100.0100, L500.4050 ####[facility] [address] [place], [address] MCHC (RBC) [Mass/Vol] 33.7 g/dL Normal 32-36 [facility] Comment on above: Performed By: #### L 100.0100, L500.4050 ####[facility] [address] [place], [address] MCV (RBC) [Entitic vol] 85.8 fL Normal 80-94 [facility] Comment on above: Performed By: #### L 100.0100, L500.4050 ####[facility] [address] [place], [address] Monocytes/100 WBC (Bld) 8.0 % Normal 0-10 [facility] Comment on above: Performed By: #### L 100.0100, L500.4050 ####[facility] [address] [place], [address] Neutrophils/100 WBC (Bld) 68.7 % Normal 47-70 [facility] Comment on above: Performed By: #### L 100.0100, L500.4050 ####[facility] [address] [place], [address] Nucleated RBC (Bld) [#/Vol] 0 10*3/uL Normal 0-5 [facility] Comment on above: Performed By: #### L 100.0100, L500.4050 ####[facility] [address] [place], [address] Platelet mean volume (Bld) [Entitic vol] 9.0 fL Normal 6.2-12.0 [facility] Comment on above: Performed By: #### L 100.0100, L500.4050 ####[facility] [address] [place], [address] Platelets (Bld) [#/Vol] 327 10*3/uL Normal 150-450 [facility] Comment on above: Performed By: #### L 100.0100, L500.4050 ####[facility] [address] [place], [address] RBC (Bld) [#/Vol] 4.73 10*6/uL Normal 4.6-6.2 [facility] Comment on above: Performed By: #### L 100.0100, L500.4050 ####[facility] [address] [place], [address] RDW SD 41.9 fl Normal 35.1-43.9 [facility] Comment on above: Performed By: #### L 100.0100, L500.4050 ####[facility] [address] [place], [address] WBC (Bld) [#/Vol] 13.8 10*3/uL High 4.4-11.0 [facility] Comment on above: Performed By: #### L 100.0100, L500.4050 ####[facility] [address] [place], [address] CNOVstevie 10-08-2024 CNOV Office Visit (UCWSTR ) CHAN BURCIAGA ([id number]) 1980 M Date Time Provider Department 10/08/24 4:15 PM ZACH CARDENAS [facility] During your visit today, we recorded the following information about you: Temperature Pulse Respiration Blood pressure 97 degrees 97/minute 20/minute 134/88 Weight 85 kg Zach Cardenas MD 10/08/2024 4:34 PM Signed [facility] Subjective Chan Burciaga [...] He is not ill-appearing. Comments: Accompanied by care home caregiver Eyes: Extraocular Movements: Extraocular movements intact. [...] kidney stones [Z87.442] Order(s):UA DIP, URINE (POC) [2685323] Order #: [id number]. #:[id number] -LAB Prescriptions as of 10/11/2024 - clonazePAM [...] tablet Take 500 mg by mouth. - Einevikg-NrcjsojraYg-Yybbdf vikram 3.5-500-10,000 rl-bxey-elax oint APPLY TOPICALLY TO INSIDE OF NOSE 3 TIMES DAILY NEEDED FOR DR (more content not included)... Normal [facility] Carbon dioxide, total [Moles /volume] in Central venous bloodOrdered By: Brad Goins on 10-08-2024 CO2 [Moles/Vol] 19.3 mmol/L Low 21.0-32.0 [facility] Chloride assayOrdered By: Hemanth Goins on 10-08-2024 Chloride [Moles/Vol] 101 mmol/L 98-108 [facility] Comprehensive Metabolic Prof ilon 10-08-2024 Albumin [Mass/Vol] 4.4 g/dL Normal 3.5-5.0 [facility] Comment on above: Performed By: #### L 100.0100, L500.4050 ####[facility] [address] [place], [place], [id number] Albumin/Globulin [Mass ratio] 1.6 {ratio} Normal 0.9-2.4 [facility] Comment on above: Performed By: #### L 100.0100, L500.4050 ####[facility] [address] [place], [address] ALK PHOS 75 U/L Normal 40-129 [facility] Comment on above: Performed By: #### L 100.0100, L500.4050 ####[facility] [address] [place], [address] ALT [Catalytic activity/Vol] 66 U/L High <=46 [facility] Comment on above: Performed By: #### L 100.0100, L500.4050 ####[facility] [address] [place], [address] AST [Catalytic activity/Vol] 51 U/L High <=37 [facility] Comment on above: Performed By: #### L 100.0100, L500.4050 ####[facility] [address] [place], [address] Bilirubin [Mass/Vol] 0.33 mg/dL Normal 0.00-1.30 [facility] Comment on above: Performed By: #### L 100.0100, L500.4050 ####[facility] [address] [place], [address] BUN/CRE 13.4 RATIO Normal 10-20 [facility] Comment on above: Performed By: #### L 100.0100, L500.4050 ####[facility] [address] [place], [address] Calcium [Mass/Vol] 9.9 mg/dL Normal 7.6-11.0 [facility] Comment on above: Performed By: #### L 100.0100, L500.4050 ####[facility] [address] [place], [address] Chloride [Moles/Vol] 101 mmol/L Normal 98-108 [facility] Comment on above: Performed By: #### L 100.0100, L500.4050 ####[facility] [address] [place], [address] CO2 [Moles/Vol] 19.3 mmol/L Low 21.0-32.0 [facility] Comment on above: Performed By: #### L 100.0100, L500.4050 ####[facility] [address] [place], [address] Creatinine [Mass/Vol] 1.32 mg/dL High 0.70-1.20 [facility] Comment on above: Performed By: #### L 100.0100, L500.4050 ####[facility] [address] [place], [address] ECRCL 72.57 ml/min Normal 50-250 [facility] Comment on above: Performed By: #### L 100.0100, L500.4050 ####[facility] [address] [place], [address] GAP 15 Normal 5-15 [facility] Comment on above: Performed By: #### L 100.0100, L500.4050 ####[facility] [address] [place], [address] GFR/1.73 sq M.predicted among non-blacks MDRD (S/P/Bld) [Vol rate/Area] 68 mL/min/{1.73_m2} Normal >60 [facility] Comment on above: Result Comment: mL/m in/1.73m2 CKD-EPI Creatinine Equation (2020) Performed By: #### L 100.0100, L500.4050 ####[facility] [address] [place], [address] Globulin (S) [Mass/Vol] 2.7 g/dL Normal 2.2-4.2 [facility] Comment on above: Performed By: #### L 100.0100, L500.4050 ####[facility] [address] [place], [address] Glucose [Mass/Vol] 100 mg/dL High 70-99 [facility] Comment on above: Performed By: #### L 100.0100, L500.4050 ####[facility] [address], [address] Potassium [Moles/Vol] 4.0 mmol/L Normal 3.3-5.1 [facility] Comment on above: Performed By: #### L 100.0100, L500.4050 ####[facility] [address] [place], [address] Sodium [Moles/Vol] 135 mmol/L Normal 133-145 [facility] Comment on above: Performed By: #### L 100.0100, L500.4050 ####[facility] [address] [place], [address] T PROT 7.1 g/dL Normal 5.9-8.4 [facility] Comment on above: Performed By: #### L 100.0100, L500.4050 ####[facility] [address] [place], [address] Urea nitrogen [Mass/Vol] 18 mg/dL Normal 4-19 [facility] Comment on above: Performed By: #### L 100.0100, L500.4050 ####[facility] [address] [place], [address] Emergency Department Summary on 10-08-2024 Emergency Department Summary [facility] Medical Records Department [address] [place] [address] Emergency Department Summary 10/08/24 MR#: [id number] Acct: [id number] Name: CHAN BURCIAGA Rep #: [id number] : 1980 43 From: Brad Goins MD PCP: Dr. Ramiro Rosa MD Status:ADM IN Location: UT3 RD405-8 HPI HPI - GI History of Present [...] or Hematuria Narrative Narrative: 43-year-old male from care home. History of hypertension kidney stones. Said the [...] No PFSH PFS Medical History Lives in care home Arthritis Back pain Non-smoker Shortness of breath [...] History mg-400 unit-5,000 unit/gram top oint (Neosporin (kka-awc-nquac)) oxcarbazepine 600 mg tablet 600 mg PO [...] Physical E (more content not included)... Normal [facility] Eosinophil percentageOrdered By: Brad Goins on 10-08-2024 Eosinophils/100 WBC (Bld) 2.9 % 0-5 [facility] Erythrocyte distribution wid th ratioOrdered By: Brad Goins on 10-08-2024 Erythrocyte distribution width (RBC) [Ratio] 13.4 % 11.6-14.6 [facility] Erythrocyte distribution wid th standard deviationOrdered By: Brad Goins on 10-08-2024 Erythrocyte distribution width (RBC) [Ratio] 41.9 fl 35.1-43.9 [facility] Glomerular filtration rate ( GFR) estimation/1.73 sq m using serum, plasma, or whole bOrdered By: Brad Goins on 10-08-2024 GFR/1.73 sq M.predicted among non-blacks MDRD (S/P/Bld) [Vol rate/Area] 68 mL/min/{1.73_m2} >60 [facility] Comment on above: mL/min/1.73m2 CKD-EP I Creatinine Equation (2020) H AND P Exam - Hospitaliston 10-08-2024 H&P Exam - Hospitalist [facility] Medical Records Department [address] [place] [address] H P Exam - Hospitalist 10/08/242001 MR#: [id number] Acct: [id number] Name: CHAN BURCIAGA Rep #: [id number] : 1980 43 From: Yamileth Aguirre MD PCP: Dr. Ramiro Rosa MD Status:ADM IN Location: UT3 OU075-3 HPI - General General Date of Admission: 10/08/24 Date of Service: 10/08/24 Chief Complaint: Abdominal pain, flank pain. HPI Narrative The patient is a 43 y/o M w/ intellectual debilities living in a care home w/ PMHx: CKD stage II per GFR trending, HTN, HLD, Anxiety and Depression/Mood disorder, Obesity who presents to the [facility] ED on 10/08/24 with history of [...] after morphine but discussion with patient and care home staff he rates his discomfort previously potentially [...] x 1. ED discussed case with urology. [facility] Medical History Lives in care home Arthritis Back pain Non-smoker Shortness of breath [...] History mg-400 unit-5,000 unit/gram top oint (Neosporin (nxh-ubl-fqdau)) oxcarbazepine 600 mg tablet 600 mg PO [...] with oth (more content not included)... Normal [facility] Hematocrit Auto (Bld) [Volum e fraction]Ordered By: Brad Goins on 10-08-2024 Hematocrit (Bld) [Volume fraction] 40.6 % 40-54 [facility] Hemoglobin measurementOrdere d By: Brad Goins on 10-08-2024 Hemoglobin (Bld) [Mass/Vol] 13.7 g/dL 13.0-16.5 [facility] Immature granulocytes/100 WB C Auto (Bld)Ordered By: Brad Goins on 10-08-2024 Immature granulocytes/100 WBC (Bld) 0.700 % 0.0-0.9 [facility] Comment on above: IG% - Immature Granu locytes (promyelocytes, myelocytes and metamyelocytes) > 1% indicates that a LEFT SHIFT is Present. Ketones Test strip Ql (U)Ord ered By: Brad Goins on 10-08-2024 Ketones Ql (U) Negative Negative [facility] Laboratory - Chemistry and C hemistry - challengeOrdered By: Brad Goins on 10-08-2024 AST [Catalytic activity/Vol] 51 U/L High <38 [facility] MCV (mean corpuscular volume ) determinationOrdered By: Brad Goins on 10-08-2024 MCV (RBC) [Entitic vol] 85.8 fL 80-94 [facility] Mean corpuscular hemoglobin (MCH) determinationOrdered By: Brad Goins on 10-08-2024 MCH (RBC) [Entitic mass] 29.0 pg 27.0-32.0 [facility] Mean corpuscular hemoglobin concentration (MCHC) determinationOrdered By: Brad Goins on 10-08-2024 MCHC (RBC) [Mass/Vol] 33.7 g/dL 32-36 [facility] Mean platelet volume determi nationOrdered By: Brad Goins on 10-08-2024 Platelet mean volume (Bld) [Entitic vol] 9.0 fL 6.2-12.0 [facility] Microscopic analysis of urin e for red blood cells (RBC)Ordered By: Brad Goins on 10-08-2024 Microscopic analysis of urine for red blood cells (RBC) > 100 SEEN /hpf 0-5 [facility] Monocyte percentageOrdered B y: Brad Goins on 10-08-2024 Monocytes/100 WBC (Bld) 8.0 % 0-10 [facility] Mucus LM Ql (Urine sed)Order ed By: Brad Goins on 10-08-2024 Mucus Ql (Urine sed) 0 SEEN /hpf [facility] Neutrophil percentageOrdered By: Brad Goins on 10-08-2024 Neutrophils/100 WBC (Bld) 68.7 % 47-70 [facility] Nitrite Test strip Ql (U)Ord ered By: Brad Goins on 10-08-2024 Nitrite Ql (U) Negative Negative [facility] Nucleated red blood cell per centageOrdered By: Brad Goins on 10-08-2024 Nucleated RBC/100 WBC (Bld) [Ratio] 0 % 0-5 [facility] Platelet countOrdered By: Hemanth Goins on 10-08-2024 Platelets (Bld) [#/Vol] 327 10*3/uL 150-450 [facility] Potassium measurement (mass/ volume)Ordered By: Brad Goins on 10-08-2024 Potassium (Unsp spec) [Mass/Vol] 4.0 mmol/L 3.3-5.1 [facility] Protein Test strip Ql (U)Ord ered By: Brad Goins on 10-08-2024 Protein Ql (U) 30 mg/dl High Negative [facility] RBC Auto (Bld) [#/Vol]Ordere d By: Brad Goins on 10-08-2024 RBC (Bld) [#/Vol] 4.73 10*6/uL 4.6-6.2 [facility] Serum creatinine measurement (mass/volume)Ordered By: Brad Goins on 10-08-2024 Creatinine [Mass/Vol] 1.32 mg/dL High 0.70-1.20 [facility] Serum globulin measurementOr dered By: Brad Goins on 10-08-2024 Globulin (S) [Mass/Vol] 2.7 g/dL 2.2-4.2 [facility] Serum glucose measurement (m ass/volume)Ordered By: Brad Goins on 10-08-2024 Glucose [Mass/Vol] 100 mg/dL High 70-99 [facility] Serum or plasma alanine rousseau otransferase (ALT) measurementOrdered By: Brad Goins on 10-08-2024 ALT [Catalytic activity/Vol] 66 U/L High <47 [facility] Serum or plasma albumin ashlee urement (mass/volume)Ordered By: Brad Goins on 10-08-2024 Albumin [Mass/Vol] 4.4 g/dL 3.5-5.0 [facility] Serum or plasma albumin/glob ulin mass ratioOrdered By: Brad Goins on 10-08-2024 Albumin/Globulin [Mass ratio] 1.6 {ratio} 0.9-2.4 [facility] Serum or plasma alkaline monica sphatase measurementOrdered By: Brad Goins on 10-08-2024 ALP [Catalytic activity/Vol] 75 U/L 40-129 [facility] Serum or plasma calcium ashlee urement (mass/volume)Ordered By: Brad Goins on 10-08-2024 Calcium [Mass/Vol] 9.9 mg/dL 7.6-11.0 [facility] Serum or plasma urea nitroge n measurement (mass/volume)Ordered By: Brad Goins on 10-08-2024 Urea nitrogen [Mass/Vol] 18 mg/dL 4-19 [facility] Sodium levelOrdered By: Brad Goins on 10-08-2024 Sodium [Moles/Vol] 135 mmol/L 133-145 [facility] Squamous epithelial cells de tection in urine sediment by light microscopyOrdered By: Brad Goins on 10-08-2024 Epithelial cells.squamous LM Ql (Urine sed) 0 SEEN /hpf 0-5 [facility] Total proteinOrdered By: Marek Goins on 10-08-2024 Protein [Mass/Vol] 7.1 g/dL 5.9-8.4 [facility] UA DIP, URINE (POC)on 2024 BILIRUBIN UA (POCT) Negative Negative [facility] CLARITY UA (POCT) Cloudy [facility] COLOR UA (POCT) Dark yellow [facility] GLUCOSE UA (POCT) Negative Negative mg/dL [facility] Hemoglobin Ql (U) Large Abnormal Negative [facility] Interpretation and review of laboratory results Abnormal [facility] KETONE UA (POCT) Negative Negative mg/dL [facility] LEUKOCYTES UA (POCT) Negative Negative [facility] NITRITE UA (POCT) Negative Negative [facility] PH UA (POCT) 7 4.5 - 8.0 [facility] Protein Ql (U) 30 mg/dL Abnormal Negative [facility] SPECIFIC GRAVITY UA (POCT) 1.02 1.005 - 1.030 [facility] UROBILINOGEN UA (POCT) 1 Lin l E.U./dL [facility] Location:[address], [place], [place], [id number] [place] [address] POINT OF CARE [facility] Urinalysis, Completeon 10-08 BACTERIA 2+ /hpf Normal None Seen [facility] Comment on above: Order Comment: CLEAN CATCH Performed By: #### L 400.0001 ####[facility] [address] [place], [address] RBC > 100 SEEN Normal 0-5 [facility] Comment on above: Order Comment: CLEAN CATCH Performed By: #### L 400.0001 ####[facility] [address] [place], [address] EPI,SQUAMOUS 0 SEEN Normal 0-5 [facility] Comment on above: Order Comment: CLEAN CATCH Performed By: #### L 400.0001 ####[facility] [address] [place], [address] Mucus Ql (Urine sed) [address] [facility] Comment on above: Order Comment: CLEAN CATCH Performed By: #### L 400.0001 ####[facility] [address] [place], [address] WBC 0 SEEN Normal 0-5 [facility] Comment on above: Order Comment: CLEAN CATCH Performed By: #### L 400.0001 ####[facility] [address] [place], [address] Urine clarityOrdered By: Marek Goins on 10-08-2024 Clarity (U) Cloudy Clear [facility] Urine color determinationOrd ered By: Brad Goins on 10-08-2024 Color (U) Yellow Yellow [facility] Urine glucose detectionOrder ed By: Brad Goins on 10-08-2024 Glucose Ql (U) Normal mg/dl Normal [facility] Urine leukocyte esterase det ection by dipstickOrdered By: Brad Goins on 10-08-2024 Leukocyte esterase Test strip Ql (U) 25 /ul High Negative [facility] Urine pHOrdered By: Brad Greer ght on 10-08-2024 pH (U) 7.0 [pH] 5.0 - 8.0 [facility] Urine sediment bacteria coun t by microscopy (number/high power field)Ordered By: Brad Goins on 10-08-2024 Bacteria LM.HPF (Urine sed) [#/Area] 2 /[HPF] None Seen [facility] Urine specific gravity measu rementOrdered By: Brad Goins on 10-08-2024 Specific gravity (U) [Rel density] 1.010 1.002-1.03 0 [facility] Urine urobilinogen measureme ntOrdered By: Brad Goins on 10-08-2024 Urobilinogen Ql (U) Normal mg/dl Normal [facility] White blood cell (WBC) count Ordered By: Brad Goins on 10-08-2024 WBC (Bld) [#/Vol] 13.8 10*3/uL High 4.4-11.0 [facility] White blood cell countOrdere d By: Brad Goins on 10-08-2024 White blood cell count 0 SEEN /hpf 0-5 [facility] 36on 10-02-2024 36 Reviewed chart. Refi ll appropriate. RX sent. Normal [facility] 36 Pharmacy sent over f ax requesting refills for a 31 day supply with 11 refills OR 93 day supply with 3 refills. I pended a 93 day supply with 1 refill. Next appt: 10/15/2024 Normal [facility] Bacteria Ur Culton 5 Bacteria identified Cx Nom (U) ORGANISM ID: 1 <10,000 CFU/ml Normal urogenital princess Normal [facility] Comment on above: Performed By: #### 6 30-4 #### [facility] CLIA [id number] [address] [id number] [place] CNOVon 09-27-2024 CNOV Office Visit (UCWSTR ) CHAN BURCIAGA ([id number]) 1980 M Date Time Provider Department 09/27/24 10:00 AM KAILARICHIESEAN GANN [facility] During your visit today, we recorded the following information about you: Temperature Pulse Blood pressure Weight 97.1 degrees 96/minute 110/66 86.2 kg Sean Verduzco APRN.GOVERNMENT CLERK 09/27/2024 10:14 AM Signed [facility] Subjective Chan Burciaga is a [...] of care. This note was generated using [employer] software. It may contain errors in wording, punctuation, or spelling. Sean Verduzco APRN.GOVERNMENT CLERK History and Record Review Clinical information obtained from an independent historian. History obtained from or confirmed by: other (see comments) and parent. External record(s) reviewed: prior outpatient record. Disposition The patient was discharged. Procedures Referring Provider: SELF [[id number]] Allergies As of Date: 09/27/2024 Noted Allergy Reaction RISPERIDONE 03/10/2015 1 - Mental Status Change Date Reviewed: 09/27/2024 Reviewed by: Sean Verduzco APRN.GOVERNMENT CLERK - Fully Assessed Reason for Visit: Hematuria [335] Primary Visit Diagnosis:Acute cystitis with hematuria [N30.01] Order(s):BACTERIAL CULTURE, URINE [SQURCUL] Order #: [id number]. #:[id number] UA DIP, URINE (POC) [] Order #: [id number] UA DIP, URINE (POC) [] Order #: [id number]. #:[id number] -LAB cephALEXin (KEFLEX) 500 mg capsuleTake 1 [...] BY M (more content not included)... Normal [facility] UA DIP, URINE (POC)on 2024 BILIRUBIN UA (POCT) Small Abnormal Negative [facility] CLARITY UA (POCT) Cloudy [facility] COLOR UA (POCT) Red [facility] GLUCOSE UA (POCT) Negative Negative mg/dL [facility] Hemoglobin Ql (U) Large Abnormal Negative [facility] Interpretation and review of laboratory results Abnormal [facility] KETONE UA (POCT) Negative Negative mg/dL [facility] LEUKOCYTES UA (POCT) Negative Negative [facility] NITRITE UA (POCT) Negative Negative [facility] PH UA (POCT) 6.5 4.5 - 8.0 [facility] Protein Ql (U) 100 mg/dL Abnormal Negative [facility] SPECIFIC GRAVITY UA (POCT) 1.02 1.005 - 1.030 [facility] UROBILINOGEN UA (POCT) 1 Lin l E.U./dL [facility] Location:[address], [place], [place], [id number] [place] [address] POINT OF CARE [facility] 36on 09-24-2024 36 Medication name: nab [...] 07/23/24 Updated/Validated preferred pharmacy: Yes Steve MCBRIDE ([facility]) - [facility] [address] [facility] [address] [address] Patient instructed to contact the pharmacy prior to picking up the medication: Yes [address] 09-16-2024 36 Notified Brad. [place] [address] Yes, he is still see ing Dr. Rosa and yes I will continue to sign for his home care [place] [address] Name of caller: Brad ([facility]) Contact phone number: [phone] Relationship to Patient: na Provider: Dr. Rosa [...] business hours to return their call: Yes [place] [address] 09-04-2024 36 Rx sent. Follow up a s scheduled. [place] [address] Received fax for ref ill request. Pended. [place] [address] 08-20-2024 36 Prescription Request : Last medication check: 10/24/2023 Last physical exam: 04/20/2024 Next scheduled appointment: 10/15/2024 CSA on file (date): N/A Last urine drug screen: N/A Last date of refill on this medication 05/01/[address] 08-10-2024 [address] 07-23-2024 36 Medication name: nab umetone [...] prior to picking up the medication: Yes [address] 07-15-2024 36 Notified Brad. [place] [address] Okay to continue, ye s we will sign and follow [place] [address] Name of caller: Brad Contact phone number: [phone] Relationship to Patient: [facility] Provider: Dr. Rosa Practice: [facility] [...] business hours to return their call: Yes [address] 07-14-2024 36 Medication name: doxazosin (Cardura) [...] to picking up the medication: Yes Normal [facility] Trileptal-Oxcarbazepineon OXCARBAZEPINE 31 ug/mL Normal - [facility] Comment on above: Result Comment: This test was developed and its performance characteristics determined by [employer]. It has not been cleared or approved by the Food and Drug Administration. Detection Limit = 1 Performed at: [facility] [address] [id number] Property Appraiser: Andra Sawant MD, Phone: [phone] Performed By: #### L 500.4050, L3800.1700, L100.0500 ####[facility] [address] [place], [place], [id number] Albumin to globulin ratioOrd ered By: Dajuan Morrison on 06-26-2024 Albumin/Globulin [Mass ratio] 1.2 {ratio} 0.9-2.4 [facility] Bilirubin, totalOrdered By: Dajuan Morrison on 06-26-2024 Bilirubin [Mass/Vol] 0.50 mg/dL 0.20-1.00 [facility] Comment on above: For patients on eltr ombopag therapy, use of [employer] TBIL is not recommended. Blood urea nitrogen (BUN)/cr eatinine ratioOrdered By: Dajuan Morrison on 06-26-2024 Urea nitrogen/Creatinine [Mass ratio] 15.7 mg/mg - [facility] CBC-Complete Blood Cnt No Di ffon 06-26-2024 Erythrocyte distribution width (RBC) [Ratio] 13.3 % Normal 11.6-14.6 [facility] Comment on above: Performed By: #### L 500.4050, L3800.1700, L100.0500 ####[facility] [address] [place], [address] Hematocrit (Bld) [Volume fraction] 42.3 % Normal 40-54 [facility] Comment on above: Performed By: #### L 500.4050, L3800.1700, L100.0500 ####[facility] [address] [place], [address] Hemoglobin (Bld) [Mass/Vol] 14.0 g/dL Normal 13.0-16.5 [facility] Comment on above: Performed By: #### L 500.4050, L3800.1700, L100.0500 ####[facility] [address] [place], [address] MCH (RBC) [Entitic mass] 28.6 pg Normal 27.0-32.0 [facility] Comment on above: Performed By: #### L 500.4050, L3800.1700, L100.0500 ####[facility] [address] [place], [address] MCHC (RBC) [Mass/Vol] 33.1 g/dL Normal 32-36 [facility] Comment on above: Performed By: #### L 500.4050, L3800.1700, L100.0500 ####[facility] [address] [place], [address] MCV (RBC) [Entitic vol] 86.5 fL Normal 80-94 [facility] Comment on above: Performed By: #### L 500.4050, L3800.1700, L100.0500 ####[facility] [address] [place], [address] Platelet mean volume (Bld) [Entitic vol] 9.3 fL Normal 6.2-12.0 [facility] Comment on above: Performed By: #### L 500.4050, L3800.1700, L100.0500 ####[facility] [address] [place], [address] Platelets (Bld) [#/Vol] 324 10*3/uL Normal 150-450 [facility] Comment on above: Performed By: #### L 500.4050, L3800.1700, L100.0500 ####[facility] [address] [place], [address] RBC (Bld) [#/Vol] 4.89 10*6/uL Normal 4.6-6.2 [facility] Comment on above: Performed By: #### L 500.4050, L3800.1700, L100.0500 ####[facility] [address] [place], [address] RDW SD 42.1 fl Normal 35.1-43.9 [facility] Comment on above: Performed By: #### L 500.4050, L3800.1700, L100.0500 ####[facility] [address] [place], [address] WBC (Bld) [#/Vol] 9.2 10*3/uL Normal 4.4-11.0 [facility] Comment on above: Performed By: #### L 500.4050, L3800.1700, L100.0500 ####[facility] [address] [place], [address] Carbon dioxide measurementOr dered By: Dajuan Morrison on 06-26-2024 CO2 [Moles/Vol] 23.0 mmol/L 21.0-32.0 [facility] Chloride measurementOrdered By: Dajuan Morrison on 06-26-2024 Chloride [Moles/Vol] 107 mmol/L 98-107 [facility] Comprehensive Metabolic Prof ilon 06-26-2024 Albumin [Mass/Vol] 3.7 g/dL Normal 3.2-5.0 [facility] Comment on above: Performed By: #### L 500.4050, L3800.1700, L100.0500 ####[facility] [address] [place], [address] Albumin/Globulin [Mass ratio] 1.2 {ratio} Normal 0.9-2.4 [facility] Comment on above: Performed By: #### L 500.4050, L3800.1700, L100.0500 ####[facility] [address] [place], [address] ALK P 63 U/L Normal 45-117 [facility] Comment on above: Performed By: #### L 500.4050, L3800.1700, L100.0500 ####[facility] [address] [place], [address] ALT [Catalytic activity/Vol] 99 U/L High 16-61 [facility] Comment on above: Performed By: #### L 500.4050, L3800.1700, L100.0500 ####[facility] [address] [place], [address] AST [Catalytic activity/Vol] 41 U/L High 15-37 [facility] Comment on above: Performed By: #### L 500.4050, L3800.1700, L100.0500 ####[facility] [address] [place], [address] Bilirubin [Mass/Vol] 0.50 mg/dL Normal 0.20-1.00 [facility] Comment on above: Result Comment: For patients on eltrombopag therapy, use of [employer] TBIL is not recommended. Performed By: #### L 500.4050, L3800.1700, L100.0500 ####[facility] [address] [place], [address] BUN/CRE 15.7 RATIO Normal 10-20 [facility] Comment on above: Performed By: #### L 500.4050, L3800.1700, L100.0500 ####[facility] [address] [place], [address] CA,Total 9.4 mg/dL Normal 8.5-10.1 [facility] Comment on above: Performed By: #### L 500.4050, L3800.1700, L100.0500 ####[facility] [address] [place], [address] Chloride [Moles/Vol] 107 mmol/L Normal 98-107 [facility] Comment on above: Performed By: #### L 500.4050, L3800.1700, L100.0500 ####[facility] [address] [place], [address] CO2 [Moles/Vol] 23.0 mmol/L Normal 21.0-32.0 [facility] Comment on above: Performed By: #### L 500.4050, L3800.1700, L100.0500 ####[facility] [address] [place], [address] Creatinine [Mass/Vol] 1.08 mg/dL Normal 0.70-1.30 [facility] Comment on above: Result Comment: The validity of the calculated GFR GFRAA in patients over 70 years has not been determined. Clinical correlation is essential. Performed By: #### L 500.4050, L3800.1700, L100.0500 ####[facility] [address] [place], [address] EST GFR - AA 95 mL/min Normal >60 [facility] Comment on above: Result Comment: Afri can Libyan GFR Calc Performed By: #### L 500.4050, L3800.1700, L100.0500 ####[facility] [address] [place], [address] GAP 8 Normal 5-15 [facility] Comment on above: Performed By: #### L 500.4050, L3800.1700, L100.0500 ####[facility] [address] [place], [address] GFR/1.73 sq M.predicted among non-blacks MDRD (S/P/Bld) [Vol rate/Area] 78 mL/min/{1.73_m2} Normal >60 [facility] Comment on above: Result Comment: Non- GFR Calc Performed By: #### L 500.4050, L3800.1700, L100.0500 ####[facility] [address] [place], [address] Globulin (S) [Mass/Vol] 3.2 g/dL Normal 2.2-4.2 [facility] Comment on above: Performed By: #### L 500.4050, L3800.1700, L100.0500 ####[facility] [address] [place], [address] Glucose [Mass/Vol] 107 mg/dL High 74-106 [facility] Comment on above: Result Comment: Fast ing Glucose result from 100 to 125 mg/dL suggests IMPAIRED HOMEOSTASIS per A.D.A. criteria. Performed By: #### L 500.4050, L3800.1700, L100.0500 ####[facility] [address] [place], [address] Potassium [Moles/Vol] 3.8 mmol/L Normal 3.5-5.1 [facility] Comment on above: Performed By: #### L 500.4050, L3800.1700, L100.0500 ####[facility] [address] [place], [address] Sodium [Moles/Vol] 138 mmol/L Normal 136-145 [facility] Comment on above: Performed By: #### L 500.4050, L3800.1700, L100.0500 ####[facility] [address] [place], [address] T PROT 6.9 g/dL Normal 6.4-8.2 [facility] Comment on above: Performed By: #### L 500.4050, L3800.1700, L100.0500 ####[facility] [address] [place], [address] Urea nitrogen [Mass/Vol] 17 mg/dL Normal 7-18 [facility] Comment on above: Performed By: #### L 500.4050, L3800.1700, L100.0500 ####[facility] [address] [place], [address] Erythrocyte distribution wid th ratioOrdered By: Dajuan Morrison on 06-26-2024 Erythrocyte distribution width (RBC) [Ratio] 13.3 % 11.6-14.6 [facility] Erythrocyte distribution wid th standard deviationOrdered By: Dajuan Morrison on 06-26-2024 Erythrocyte distribution width (RBC) [Entitic vol] 42.1 fL 35.1-43.9 [facility] Erythrocyte distribution width (RBC) [Ratio] 42.1 fl 35.1-43.9 [facility] Estimated glomerular filtrat ion rate (GFR) AmericanOrdered By: Dajuan Morrison on 06-26-2024 Estimated GFR (MDRD) Amer 95 mL/min >60 [facility] Comment on above: GFR Calc Glomerular filtration rate ( GFR) estimationOrdered By: Dajuan Morrison on 06-26-2024 Estimated GFR (MDRD) Non-Af Amer 78 mL/min >60 [facility] Comment on above: Non- GFR Calc GFR/1.73 sq M.predicted among non-blacks MDRD (S/P/Bld) [Vol rate/Area] 78 mL/min/{1.73_m2} >60 [facility] Comment on above: Non- GFR Calc Glucose measurementOrdered B y: Dajuan Morrison on 06-26-2024 Glucose [Mass/Vol] 107 mg/dL High 74-106 [facility] Comment on above: Fasting Glucose resu lt from 100 to 125 mg/dL suggests IMPAIRED HOMEOSTASIS per A.D.A. criteria. Hematocrit Auto (Bld) [Volum e fraction]Ordered By: Dajuan Morrison on 06-26-2024 Hematocrit (Bld) [Volume fraction] 42.3 % 40-54 [facility] Hemoglobin measurementOrdere d By: Dajuan Morrison on 06-26-2024 Hemoglobin (Bld) [Mass/Vol] 14.0 g/dL 13.0-16.5 [facility] Laboratory - Chemistry and C hemistry - challengeOrdered By: Dajuan Morrison on 06-26-2024 AST [Catalytic activity/Vol] 41 U/L High 15-37 [facility] MCV (mean corpuscular volume ) determinationOrdered By: Dajuan Morrison on 06-26-2024 MCV (RBC) [Entitic vol] 86.5 fL 80-94 [facility] Mean corpuscular hemoglobin (MCH) determinationOrdered By: Dajuan Morrison on 06-26-2024 MCH (RBC) [Entitic mass] 28.6 pg 27.0-32.0 [facility] Mean corpuscular hemoglobin concentration (MCHC) determinationOrdered By: Dajuan Morrison on 06-26-2024 MCHC (RBC) [Mass/Vol] 33.1 g/dL 32-36 [facility] Mean platelet volume determi nationOrdered By: Dajuan Morrison on 06-26-2024 Platelet mean volume (Bld) [Entitic vol] 9.3 fL 6.2-12.0 [facility] OXcarbazepine [Mass/Vol]Orde red By: Dajuan Morrison on 06-26-2024 Oxcarbazepine Level 31 ug/mL 10-35 [facility] Comment on above: This test was develo ped and its performance characteristicsdetermined by [employer]. It has not been cleared orapproved by the Food and Drug Administration. Detection Limit = 1Performed at: [facility] [id number] [place], [place] [id number] Director: Andra Sawant MD, Phone: [phone] Platelet countOrdered By: Mary Morrison on 06-26-2024 Platelets (Bld) [#/Vol] 324 10*3/uL 150-450 [facility] Potassium measurementOrdered By: Dajuan Morrison on 06-26-2024 Potassium [Moles/Vol] 3.8 mmol/L 3.5-5.1 [facility] RBC Auto (Bld) [#/Vol]Ordere d By: Dajuan Morrison on 06-26-2024 RBC (Bld) [#/Vol] 4.89 10*6/uL 4.6-6.2 [facility] Serum anion gap measurementO rdered By: Dajuan Morrison on 06-26-2024 Anion gap [Moles/Vol] 8 mmol/L 5-15 [facility] Serum globulin measurementOr dered By: Dajuan Morrison on 06-26-2024 Globulin (S) [Mass/Vol] 3.2 g/dL 2.2-4.2 [facility] Serum or plasma alanine rousseau otransferase (ALT) measurementOrdered By: Dajuan Morrison on 06-26-2024 ALT [Catalytic activity/Vol] 99 U/L High 16-61 [facility] Serum or plasma albumin ashlee urement (mass/volume)Ordered By: Dajuan Morrison on 06-26-2024 Albumin [Mass/Vol] 3.7 g/dL 3.2-5.0 [facility] Serum or plasma alkaline monica sphatase measurementOrdered By: Dajuan Morrison on 06-26-2024 ALP [Catalytic activity/Vol] 63 U/L 45-117 [facility] Serum or plasma calcium ashlee urement (mass/volume)Ordered By: Dajuan Morrison on 06-26-2024 Calcium [Mass/Vol] 9.4 mg/dL 8.5-10.1 [facility] Serum or plasma creatinine m easurement (mass/volume)Ordered By: Dajuan Morrison on 06-26-2024 Creatinine [Mass/Vol] 1.08 mg/dL 0.70-1.30 [facility] Comment on above: The validity of the calculated GFR & GFRAA in patients over 70 years has not been determined. Clinical correlation is essential. Serum or plasma oxcarbazepin e measurement (mass/volume)Ordered By: Dajuan Morrison on 06-26-2024 OXcarbazepine [Mass/Vol] 31 ug/mL 10-35 [facility] Comment on above: This test was develo ped and its performance characteristicsdetermined by [facility]. It has not been cleared orapproved by the Food and Drug Administration. Detection Limit = 1Performed at: [facility] [id number] [place], [place] [id number] Director: Andra Sawant MD, Phone: [phone] Serum or plasma urea nitroge n measurement (mass/volume)Ordered By: Dajuan Morrison on 06-26-2024 Urea nitrogen [Mass/Vol] 17 mg/dL - [facility] Sodium levelOrdered By: Cricket Morrison on 06-26-2024 Sodium [Moles/Vol] 138 mmol/L 136-145 [facility] Total proteinOrdered By: Juvenal Morrison on 06-26-2024 Protein [Mass/Vol] 6.9 g/dL 6.4-8.2 [facility] White blood cell (WBC) count Ordered By: Dajuan Morrison on 06-26-2024 WBC (Bld) [#/Vol] 9.2 10*3/uL 4.4-11.0 [facility] 36on 06-23-2024 36 Prescription Request : Last medication check: 10/24/2023 Last physical exam: 04/20/2024 Next scheduled appointment: 10/20/2024 Last date of refill on this medication: 06/04/[address] 05-04-2024 36 Reviewed chart. Refi ll appropriate. RX sent. [address] pharmacy requesting refill for Folic Acid 400mcg for 9 days w/1 refill. Prescription Request: Last medication check: 10/24/2023 Last physical exam: 04/20/2024 Next scheduled appointment: 10/20/2024 Last date of refill on this medication: 12/03/2023 [place] [address] 05-01-2024 36 Reviewed chart. Refi ll appropriate. RX sent. [place] [address] Prescription Request : Last medication check: 10/24/23 Last physical exam: 04/20/24 Next scheduled appointment: 10/20/24 Last date of refill on this medication 12/03/23 90 day 1 refill Normal [facility] Office Visiton 04-20-2024 Follow-up visit [id number] Cb Burciaga awmitul 1980 M Date Provider Department Center 04/20/2024 88632[facility]IR[facility] Family History Family Status - Relation Status Age at Mother Father Alive Level of Service:62966 ND PERIODIC PREVENTIVE MED EST PATIENT 40-64YRS Reason for Visit and Comments: Annual Exam [83] Blood Work [568161] Health Maintenance [872] - 4th covid vaccine- not done Normal [facility] Progress Noteon 04-20-2024 Progress Note Stable, continue Foster nase and Claritin. 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 He has hypertension and his blood pressure [...] note. Ramiro Rosa MD 04/20/2024 12:50 PM [facility] Progress Note Patient verified by last name and date of . [facility] 36on 04-17-2024 36 lm to pre-visit plan for appointment with dr Rosa on 04/20/24 11am. Please ask patient to arrive 15 minutes early with Photo ID, insurance card Fasting: yes Put call through to office for pvp [facility] 36on 04-06-2024 36 Reviewed chart. Refi ll appropriate. RX sent. [facility] 36 Prescription Request : Last medication check: 10/24/2023 Last physical exam: 04/18/2023 Next scheduled appointment: 04/20/2024 Last date of refill on this medication: 11/12/2023 [facility] 36on 03-20-2024 36 Notified on angela luo. [facility] 36 Will follow patient. Thank you. [facility] 36 Name of caller: Brad Contact phone number: [phone] Relationship to Patient: [facility] Provider: Dr. Rosa Practice: [facility] LEVINE Chief [...] business hours to return their call: Yes [facility] CBC W/Diff, Automatedon 10- Absolute Lymph 1.76 X10 3/uL Normal 0.83-4.51 [facility] Comment on above: Performed By: #### L 100.0100, L500.4050 #### [facility] [address] [place], [place], [id number] Absolute Neut 9.0 X10 3/uL High 2.0-7.7 [facility] Comment on above: Performed By: #### L 100.0100, L500.4050 #### [facility] [address] [place], [address] Basophils/100 WBC (Bld) 0.5 % Normal 0-1 [facility] Comment on above: Performed By: #### L 100.0100, L500.4050 #### [facility] [address] [place], [address] Eosinophils/100 WBC (Bld) 4.6 % Normal 0-5 [facility] Comment on above: Performed By: #### L 100.0100, L500.4050 #### [facility] [address] [place], [address] Erythrocyte distribution width (RBC) [Ratio] 13.4 % Normal 11.6-14.6 [facility] Comment on above: Performed By: #### L 100.0100, L500.4050 #### [facility] [address] [place], [address] Hematocrit (Bld) [Volume fraction] 42.4 % Normal 40-54 [facility] Comment on above: Performed By: #### L 100.0100, L500.4050 #### [facility] [address] [place], [address] Hemoglobin (Bld) [Mass/Vol] 14.0 g/dL Normal 13.0-16.5 [facility] Comment on above: Performed By: #### L 100.0100, L500.4050 #### [facility] [address] [place], [address] IG% 0.600 Normal 0.0-0.9 [facility] Comment on above: Result Comment: IG% - Immature Granulocytes (promyelocytes, myelocytes and metamyelocytes) > 1% indicates that a LEFT SHIFT is Present. Performed By: #### L 100.0100, L500.4050 #### [facility] [address] [place], [address] Lymphocytes/100 WBC (Bld) 14.8 % Low 19-41 [facility] Comment on above: Performed By: #### L 100.0100, L500.4050 #### [facility] [address] [place], [address] MCH (RBC) [Entitic mass] 29.1 pg Normal 27.0-32.0 [facility] Comment on above: Performed By: #### L 100.0100, L500.4050 #### [facility] [address] [place], [address] MCHC (RBC) [Mass/Vol] 33.0 g/dL Normal 32-36 [facility] Comment on above: Performed By: #### L 100.0100, L500.4050 #### [facility] [address] [place], [address] MCV (RBC) [Entitic vol] 88.1 fL Normal 80-94 [facility] Comment on above: Performed By: #### L 100.0100, L500.4050 #### [facility] [address] [place], [address] Monocytes/100 WBC (Bld) 3.4 % Normal 0-10 [facility] Comment on above: Performed By: #### L 100.0100, L500.4050 #### [facility] [address] [place], [address] Neutrophils/100 WBC (Bld) 76.1 % High 47-70 [facility] Comment on above: Performed By: #### L 100.0100, L500.4050 #### [facility] [address] [place], [address] Nucleated RBC (Bld) [#/Vol] 0 10*3/uL Normal 0-5 [facility] Comment on above: Performed By: #### L 100.0100, L500.4050 #### [facility] [address] [place], [address] Platelet mean volume (Bld) [Entitic vol] 9.2 fL Normal 6.2-12.0 [facility] Comment on above: Performed By: #### L 100.0100, L500.4050 #### [facility] [address] [place], [address] Platelets (Bld) [#/Vol] 344 10*3/uL Normal 150-450 [facility] Comment on above: Performed By: #### L 100.0100, L500.4050 #### [facility] [address] [place], [address] RBC (Bld) [#/Vol] 4.81 10*6/uL Normal 4.6-6.2 [facility] Comment on above: Performed By: #### L 100.0100, L500.4050 #### [facility] [address] [place], [address] RDW SD 43.2 fl Normal 35.1-43.9 [facility] Comment on above: Performed By: #### L 100.0100, L500.4050 #### [facility] [address] [place], [address] WBC (Bld) [#/Vol] 11.9 10*3/uL High 4.4-11.0 [facility] Comment on above: Performed By: #### L 100.0100, L500.4050 #### [facility] [address] [place], [address] Comprehensive Metabolic Prof ilon 02-14-2024 Albumin [Mass/Vol] 3.9 g/dL Normal 3.2-5.0 [facility] Comment on above: Performed By: #### L 100.0100, L500.4050 #### [facility] [address] [place], [address] Albumin/Globulin [Mass ratio] 1.4 {ratio} Normal 0.9-2.4 [facility] Comment on above: Performed By: #### L 100.0100, L500.4050 #### [facility] [address] [place], [address] ALK P 71 U/L Normal 45-117 [facility] Comment on above: Performed By: #### L 100.0100, L500.4050 #### [facility] [address] [place], [address] ALT [Catalytic activity/Vol] 121 U/L High 16-61 [facility] Comment on above: Performed By: #### L 100.0100, L500.4050 #### [facility] [address] [place], [address] AST [Catalytic activity/Vol] 53 U/L High 15-37 [facility] Comment on above: Performed By: #### L 100.0100, L500.4050 #### [facility] [address] [place], [address] Bilirubin [Mass/Vol] 0.50 mg/dL Normal 0.20-1.00 [facility] Comment on above: Result Comment: For patients on eltrombopag therapy, use of Dimension [place] TBIL is not recommended. Performed By: #### L 100.0100, L500.4050 #### [facility] [address] [place], [address] BUN/CRE 13.8 RATIO Normal 10-20 [facility] Comment on above: Performed By: #### L 100.0100, L500.4050 #### [facility] [address] [place], [address] CA,Total 10.0 mg/dL Normal 8.5-10.1 [facility] Comment on above: Performed By: #### L 100.0100, L500.4050 #### [facility] [address] [place], [address] Chloride [Moles/Vol] 103 mmol/L Normal 98-107 [facility] Comment on above: Performed By: #### L 100.0100, L500.4050 #### [facility] [address] [place], [address] CO2 [Moles/Vol] 25.0 mmol/L Normal 21.0-32.0 [facility] Comment on above: Performed By: #### L 100.0100, L500.4050 #### [facility] [address] [place], [address] Creatinine [Mass/Vol] 1.30 mg/dL Normal 0.70-1.30 [facility] Comment on above: Result Comment: The validity of the calculated GFR GFRAA in patients over 70 years has not been determined. Clinical correlation is essential. Performed By: #### L 100.0100, L500.4050 #### [facility] [address] [place], [address] EST GFR - AA 77 mL/min Normal >60 [facility] Comment on above: Result Comment: Afri can Libyan GFR Calc Performed By: #### L 100.0100, L500.4050 #### [facility] [address] [place], [address] GAP 8 Normal 5-15 [facility] Comment on above: Performed By: #### L 100.0100, L500.4050 #### [facility] [address] [place], [address] GFR/1.73 sq M.predicted among non-blacks MDRD (S/P/Bld) [Vol rate/Area] 63 mL/min/{1.73_m2} Normal >60 [facility] Comment on above: Result Comment: Non- GFR Calc Performed By: #### L 100.0100, L500.4050 #### [facility] [address] [place], [address] Globulin (S) [Mass/Vol] 2.7 g/dL Normal 2.2-4.2 [facility] Comment on above: Performed By: #### L 100.0100, L500.4050 #### [facility] [address] [place], [address] Glucose [Mass/Vol] 164 mg/dL High 74-106 [facility] Comment on above: Result Comment: Fast ing Glucose result greater than or equal to 126 mg/dL suggests DIABETES MELLITUS per A.D.A. criteria. Performed By: #### L 100.0100, L500.4050 #### [facility] [address] [place], [address] Potassium [Moles/Vol] 3.9 mmol/L Normal 3.5-5.1 [facility] Comment on above: Performed By: #### L 100.0100, L500.4050 #### [facility] [address] [place], [address] Sodium [Moles/Vol] 136 mmol/L Normal 136-145 [facility] Comment on above: Performed By: #### L 100.0100, L500.4050 #### [facility] [address] [place], [address] T PROT 6.6 g/dL Normal 6.4-8.2 [facility] Comment on above: Performed By: #### L 100.0100, L500.4050 #### [facility] [address] [place], [address] Urea nitrogen [Mass/Vol] 18 mg/dL Normal 7-18 [facility] Comment on above: Performed By: #### L 100.0100, L500.4050 #### [facility] [address] [place], [address] 36on 02-03-2024 36 Pharmacy requesting refill. Prescription Request: Last medication check: 10/24/2023 Last physical exam: 04/18/2023 Next scheduled appointment: 04/20/2024 Last date of refill on this medication: 03/29/2023 [facility] 36on 01-24-2024 36 Yes, thank you [facility] 36 Name of caller: Brad Contact phone number: [phone] Relationship to Patient: [facility] Provider: Dr Rosa Practice: [facility] Chief Complaint/Reason for Call: Caller stated that there are no changes with patient. Caller is asking if Dr Rosa will continue to follow patient for nursing and plan of care. Best time of day caller can be reached: any Patient advised that office/PCP has 24-48 business hours to return their call: No [facility] 36on 01-17-2024 36 Message released to patient as written. Coco Cheema APRN - SHELBY 01/16/2024 9:02 PM EDT Home sleep study demonstrates no sleep related disorder- no sleep apnea detected. Patient's further questions if applicable: Iesha, patient's caregiver voiced understanding, no further questions or concerns at this time. Were all questions from office addressed or relayed to the patient from encounter: Yes [facility] Home sleep teston 01-16-2024 [facility] 36on 12-19-2023 36 Prescription Request : Last medication check: 10/24/23 Last physical exam: 04/18/23 Next scheduled appointment: 04/20/24 Last date of refill on this medication 06/07/23 [facility] CD3 (initial)on 12-19-2023 CD3 (initial) ------- Patient Age/Sex Location Account Attending Physician CHAN BURCIAGA 43/M EN [id number] Michael Laguerre DO Specimen: [id number] Received: 12/20/23 Status: HUSSEIN Huan Num: [id number] Spec Type: IMMUNO Subm Dr: Michael Laguerre DO PHYSICIAN INSTITUTION [place] [address] SPECIMEN INFORMATION: Tissue Source: Terminal ileum biopsy Clinical Info: Encounter for screening for malignant neoplasm of colon Specimen Number: [id number] CPT code: 90157,48996m9 METHODOLOGY: Deparaffinized sections of prefer/formalin-fixed tissue or [...] developed and their performance characteristics determined by [facility]. They may not have been cleared or approved by the U.S. Food and Drug Administration. The FDA has determined that such clearance or approval is not necessary. The above immunohistochemical/dualISH markers are ordered and reviewed by the Pathologist. INTERPRETATION: Terminal ileum, biopsy: Polytypic lymphoid aggregates. AM/mr 12/23/2023 Signed (signature on file) Dr. Huy Pollock DO 12/23/23 1536 Normal [facility] Comment on above: Performed By: #### P CD3 ####[facility] [id number] [facility] [place], [address] Colonoscopy Reporton 024 Colonoscopy Report [facility] Medical Records Department [address] [place] [place] [address] Colonoscopy Report MR#: [id number] Acct: [id number] Name: CHAN BURCIAGA Rep #: [id number] : 1980 43 From: Michael Laguerre DO PCP: Dr. Ramiro Rosa MD Status:[facility] Patient Name: Chan Burciaga Procedure Date: 12/19/2023 [...] pathology results. Procedure Code(s): --- Professional --- 20002, Colonoscopy, flexible; with biopsy, single or multiple CPT copyright 2021 [employer]. All rights reserved. The codes documented in this report are preliminary and upon epic ambulatory analysts review may be revised to meet current compliance requirements. Michael Laguerre DO 12/19/2023 10:32:20 AM This report has been signed electronically. Number of Addenda: 0 Note Initiated On: 12/19/2023 10:03 AM 12/19/23 1032 Date Michael Shade CHRISTOPHER Cosignsneha Signature: Date (if indicated) CC: Dr. Ramiro Rosa MD; Michael Laguerre DO Date Dictated: 12/19/23 1003 Date Transcribed: Rn Utilization Management Um: DARRELL Signed [facility] MR/POSTOP.[facility] 12-19-2023 MR/POSTOP.[facility] Medical Records Department [address] [place] [address] Anesthesia Postop Eval I 12/19/23 1036 MR#: [id number] Acct: [id number] Name: CHAN BURCIAGA Rep #: [id number] : 1980 43 From: Esvin Awan PCP: Dr. Ramiro Rosa MD Status:[facility] Race: C Location: [place] [address] Anesthesia: Postop Eval I Current Vital Signs [...] 1 completed: Yes 12/19/23 1037 Date Esvin Awan Cosigner Signature: Date CC: Signed Normal [facility] MR/[id number] 12-19-2023 MR/POSTOPAN2 [facility] Medical Records Department [address] [facility] [place] [place] [address] Anesthesia Postop Eval II 12/19/23 1051 MR#: [id number] Acct: [id number] Name: CHAN BURCIAGA Rep #: [id number] : 1980 43 From: Harman Conrad MD PCP: Dr. Ramiro Rosa MD Status:[facility] Race: C Location: [facility] Anesthesia Postop Eval I Sum Postop Eval [...] MD Cosigner Signature: Date CC: Signed Normal [facility] Surgery Specimen Level Zhou 12-19-2023 Surgery Specimen Level IV Patient Age/Sex Location Account Attending Physician CHAN BURCIAGA/M EN [id number] Michael Laguerre DO Specimen: [id number] Received: 12/19/23 Status: HUSSEIN Pressley Num: [id number] Spec Type: COLON BX Subm Dr: Michael Laguerre DO HEADSNEHA OPERATION: Colonoscopy with biopsy PRE-OP DIAGNOSIS: Encounter for screening for malignant neoplasm of colon TISSUE SUBMITTED: Terminal ileum biopsy MICROSCOPIC DIAGNOSIS Terminal ileum, biopsy: Focal acute ileitis with associated mucosal denudation. Polytypic lymphoid aggregates. See comment. AM.mr 12/20/2023 COMMENT A mucosal ulcer is suspected. Eosinophils are mildly increased in the lambda propria. The significance is unclear. Benign lymphoid aggregates are also present. Immunohistochemistry ([id number]) supports the above diagnosis and reveals polytypic lymphoid aggregates. Case has been reviewed in consultation with Dr. Johnson who concurs with the above diagnosis. IDC: MICROSCOPIC DESCRIPTION Slides are reviewed. GROSS DESCRIPTION Received in fixative is one container labeled with the patient's name and designated Terminal ileum biopsy. The specimen consists of multiple irregular fragments of light sands soft tissue that in aggregate measure 1.2 x 0.3 x 0.1 cm. The specimen is totally submitted in one cassette. BARNEY. 12/19/2023 TC:2 CPT:16038 Patient Age/Sex Location Account Attending Physician CHAN BURCIAGA/Andrez VALENCIA [id number] Michael Laguerre DO Signed (signature on file) Dr. Huy Pollock, DO 12/23/23 1218 Normal [facility] Comment on above: Performed By: #### P SUIV #### [facility] [address] [place], [address] 36on 12-03-2023 36 Reviewed chart. Refi ll appropriate. RX sent. [facility] 36 Prescription Request : Last medication check: 10/24/23 Last physical exam: 04/18/23 Next scheduled appointment: 01/09/24 Last date of refill on this medication 06/26/23 [facility] 36on 11-21-2023 36 Notified on angela luo. [facility] 36 Yes, recertification would be appropriate [facility] 36 Name of caller: Brad Contact phone number: [phone] Relationship to Patient: [facility] Provider: Dr. Rosa Practice: [facility] Chief Complaint/Reason for Call: Brad is requesting confirmation, of medical recertification for residential. Please advise. Best time of day caller can be reached: any Patient advised that office/PCP has 24-48 business hours to return their call: Yes [facility] 36on 11-12-2023 36 Prescription Request : Last medication check: 10/24/23 Last physical exam: 04/18/23 Next scheduled appointment: 04/20/24 Last date of refill on this medication 06/04/23 [facility] Culture, urineOrdered By: St heri Miles on 01-24-2024 Bacteria identified Cx Nom (U) [place] odontolyticus [facility] - Chemistry and C hemistry - challengeon 05-29-2023 Bilirubin Ql (U) Small (1+) [facility] Glucose Ql (U) Negative [facility] Ketones Ql (U) Negative [facility] pH (U) 7.5 [pH] [facility] Specific gravity (U) [Rel density] 1.010 [facility] Urobilinogen (U) [Mass/Vol] 0.9720336 mg/dL [facility] - Hematology and Cell countson 05-29-2023 Hemoglobin Ql (U) Hemolyzed [facility] - Specimen inform ationon 05-29-2023 Clarity (U) Slightly Hazy [facility] Color (U) Dk Yellow [facility] - Urinalysison Nitrite Ql (U) Negative [facility] Protein Ql (U) Trace [facility] No Panel Informationon 05-29 Urine Leukocytes Positive [facility] Urine Non-Hemolyzed Blood Large [facility] XR Lumbar spine 4 Viewson Mild to moderate mul tilevel degenerative changes. Probable bilateral renal calculi measuring up to 1 cm. Further evaluation with renal ultrasound is recommended. Report Dictated on Electronically Signed By: Isidro Lara Electronically Signed Date/Time: 08/27/2022 4:16 PM EDT [employer] [facility]LL [facility] 1980 [id number] Exam Date/Time: 08/27/2022 10:41 Procedure: XR LUMBAR [...] bilateral kidneys measuring up to 1 cm. [facility] Isidro Lara MD - 08/27/2022 Patient Name: CHAN BURCIAGA : 1980 [id number] Exam Date/Time: 08/27/2022 10:41 Procedure: XR LUMBAR [...] Electronically Signed Date/Time: 08/27/2022 4:16 PM EDT [facility] Radiology Study observation (narrative) [facility] XR Lumbar spine 4 ViewsOrder ed By: Isidro Lara on 08-27-2022 [employer] Work Phone: [id number] percentageOrdered B y: Dr. Borden on 08-09-2022 Bilirubin [Mass/Vol] 0.40 mg/dL 0.20-1.00 [facility] Comment on above: For patients on eltr ombopag therapy, use of [employer] [place] TBIL is not recommended. Chloride [Moles/Vol] 105 mmol/L 98-107 [facility] Cholesterol [Mass/Vol] 151 mg/dL <200 [facility] Comment on above: <200 mg/dL Desirable 200-240 mg/dL Borderline >240 mg/dL High Risk Glucose [Mass/Vol] 91 mg/dL 74-106 [facility] Potassium [Moles/Vol] 3.9 mmol/L 3.5-5.1 [facility] Protein [Mass/Vol] 7.3 g/dL 6.4-8.2 [facility] Sodium [Moles/Vol] 136 mmol/L 136-145 [facility] Triglyceride [Mass/Vol] 142 mg/dL <199 [facility] Comment on above: The drugs N-Acetylcy steine and Metamizole may falsely depress this assay.Serum Triglycerides Reference Interval Normal <150 mg/dL Borderline high 150 - 199 mg/dL High 200 - 499 mg/dL Very High > or = 500 mg/dL Laboratory - Chemistry and C hemistry - challengeOrdered By: Dr. Borden on 08-09-2022 ALP [Catalytic activity/Vol] 56 U/L 45-117 [facility] ALT [Catalytic activity/Vol] 138 U/L 16-61 [facility] CO2 [Moles/Vol] 26.0 mmol/L 21.0-32.0 [facility] Globulin (S) [Mass/Vol] 3.2 g/dL 2.2-4.2 [facility] Urea nitrogen/Creatinine [Mass ratio] 11.7 mg/mg 10-20 [facility] No Panel InformationOrdered By: Dr. Borden on 08-09-2022 Estimated GFR (MDRD) Amer 93 mL/min >60 [facility] Comment on above: GFR Calc Estimated GFR (MDRD) Non-Af Amer 77 mL/min >60 [facility] Comment on above: Non- GFR Calc Serum or plasma albumin ashlee urement (mass/volume)Ordered By: Dr. Borden on 08-09-2022 Albumin [Mass/Vol] 4.1 g/dL 3.2-5.0 [facility] Serum or plasma albumin/glob ulin mass ratioOrdered By: Dr. Borden on 08-09-2022 Albumin/Globulin [Mass ratio] 1.3 {ratio} 0.9-2.4 [facility] Serum or plasma calcium ashlee urement (mass/volume)Ordered By: Dr. Borden on 08-09-2022 Calcium [Mass/Vol] 10.0 mg/dL 8.5-10.1 [facility] Serum or plasma cholesterol in HDL measurement (mass/volume)Ordered By: Dr. Borden on 08-09-2022 Cholesterol in HDL [Mass/Vol] 42 mg/dL >40 [facility] Comment on above: The drugs N-Acetylcy steine and Metamizole may falsely depress this assay. Reference Range HDL <40 mg/dL Low HDL Cholesterol HDL >or= 60 mg/dL High HDL Cholesterol Serum or plasma cholesterol in VLDL measurement (mass/volume)Ordered By: Dr. Borden on 08-09-2022 Cholesterol in VLDL [Mass/Vol] 28 mg/dL 5-40 [facility] Serum or plasma creatinine m easurement (mass/volume)Ordered By: Dr. Borden on 08-09-2022 Creatinine [Mass/Vol] 1.11 mg/dL 0.70-1.30 [facility] Comment on above: The validity of the calculated GFR & GFRAA in patients over 70 years has not been determined. Clinical correlation is essential. Serum or plasma low density lipoprotein (LDL) cholesterol measurement (mass/volume)Ordered By: Dr. Borden on 08-09-2022 Cholesterol in LDL [Mass/Vol] 81 mg/dL 0-130 [facility] Serum or plasma urea nitroge n measurement (mass/volume)Ordered By: Dr. Borden on 08-09-2022 Urea nitrogen [Mass/Vol] 13 mg/dL 7-18 [facility] Thin prep Papanicolaou smear with manual screeningOrdered By: Dr. Borden on 08-09-2022 Thin prep Papanicolaou smear with manual screening 63 U/L 15-37 [facility] Thin prep Papanicolaou smear with manual screening 5 5-15 [facility] Whole blood hemoglobin A1c/t otal hemoglobin ratio (mass fraction)Ordered By: Dr. Borden on 08-09-2022 HbA1c (Bld) [Mass fraction] 5.4 % 3.8-5.6 [facility] Comment on above: Normal < 5.7 % Predi abetic 5.7 - 6.4 % Diabetic >or= 6.5 % Please note range changes. Basophil percentageon 2021 Bilirubin [Mass/Vol] 0.30 mg/dL 0.20-1.00 [facility] Work Phone: Comment on above: For patients on eltr ombopag therapy, use of [employer] [place] TBIL is not recommended. Chloride [Moles/Vol] 108 mmol/L 98-107 [facility] Work Phone: Cholesterol [Mass/Vol] 199 mg/dL <200 [facility] Work Phone: Comment on above: <200 mg/dL Desirable 200-240 mg/dL Borderline >240 mg/dL High Risk Glucose [Mass/Vol] 113 mg/dL 74-106 [facility] Work Phone: Comment on above: Fasting Glucose resu lt from 100 to 125 mg/dL suggests IMPAIRED HOMEOSTASIS per A.D.A. criteria. Potassium [Moles/Vol] 3.7 mmol/L 3.5-5.1 [facility] Work Phone: Protein [Mass/Vol] 7.4 g/dL 6.4-8.2 [facility] Work Phone: Sodium [Moles/Vol] 140 mmol/L 136-145 [facility] Work Phone: Triglyceride [Mass/Vol] 239 mg/dL <199 [facility] Work Phone: Comment on above: The drugs N-Acetylcy steine and Metamizole may falsely depress this assay.Serum Triglycerides Reference Interval Normal <150 mg/dL Borderline high 150 - 199 mg/dL High 200 - 499 mg/dL Very High > or = 500 mg/dL WBC (Bld) [#/Vol] 9.8 10*3/uL 4.4-11.0 [facility] Work Phone: Blood erythrocytes count (nu mber/volume)on 02-23-2022 RBC (Bld) [#/Vol] 5.30 10*6/uL 4.6-6.2 [facility] Work Phone: Blood hemoglobin measurement (mass/volume)on 02-23-2022 Hemoglobin (Bld) [Mass/Vol] 15.4 g/dL 13.0-16.5 [facility] Work Phone: Blood platelet mean volumeon 02-23-2022 Platelet mean volume (Bld) [Entitic vol] 9.4 fL 6.2-12.0 [facility] Work Phone: Determination of erythrocyte mean corpuscular volume (MCV)on 02-23-2022 MCV (RBC) [Entitic vol] 86.4 fL 80-94 [facility] Work Phone: Hematocrit Auto (Bld) [Volum e fraction]on 02-23-2022 Hematocrit (Bld) [Volume fraction] 45.8 % 40-54 [facility] Work Phone: Laboratory - Chemistry and C hemistry - challengeon 02-23-2022 ALP [Catalytic activity/Vol] 72 U/L 45-117 [facility] Work Phone: ALT [Catalytic activity/Vol] 120 U/L 16-61 [facility] Work Phone: CO2 [Moles/Vol] 24.0 mmol/L 21.0-32.0 [facility] Work Phone: Globulin (S) [Mass/Vol] 3.4 g/dL 2.2-4.2 [facility] Work Phone: Urea nitrogen/Creatinine [Mass ratio] 9.9 mg/mg 10-20 [facility] Work Phone: Laboratory - Hematology and Cell countson 02-23-2022 Erythrocyte distribution width (RBC) [Entitic vol] 42.0 fL 35.1-43.9 [facility] Work Phone: Erythrocyte distribution width (RBC) [Ratio] 13.4 % 11.6-14.6 [facility] Work Phone: MCH (RBC) [Entitic mass] 29.1 pg 27.0-32.0 [facility] Work Phone: MCHC Auto (RBC) [Mass/Vol]on 02-23-2022 MCHC (RBC) [Mass/Vol] 33.6 g/dL 32-36 [facility] Work Phone: No Panel Informationon 02-23 Estimated GFR (MDRD) Amer 104 mL/min >60 [facility] Work Phone: Comment on above: GFR Calc Estimated GFR (MDRD) Non-Af Amer 86 mL/min >60 [facility] Work Phone: Comment on above: Non- GFR Calc Platelets bldon 02-23-2022 Platelets (Bld) [#/Vol] 382 10*3/uL 150-450 [facility] Work Phone: Serum or plasma albumin ashlee urement (mass/volume)on 02-23-2022 Albumin [Mass/Vol] 4.0 g/dL 3.2-5.0 [facility] Work Phone: Serum or plasma albumin/glob ulin mass ratioon 02-23-2022 Albumin/Globulin [Mass ratio] 1.2 {ratio} 0.9-2.4 [facility] Work Phone: Serum or plasma calcium ashlee urement (mass/volume)on 02-23-2022 Calcium [Mass/Vol] 9.5 mg/dL 8.5-10.1 [facility] Work Phone: Serum or plasma cholesterol in HDL measurement (mass/volume)on 02-23-2022 Cholesterol in HDL [Mass/Vol] 35 mg/dL >40 [facility] Work Phone: Comment on above: The drugs N-Acetylcy steine and Metamizole may falsely depress this assay. Reference Range HDL <40 mg/dL Low HDL Cholesterol HDL >or= 60 mg/dL High HDL Cholesterol Serum or plasma cholesterol in VLDL measurement (mass/volume)on 02-23-2022 Cholesterol in VLDL [Mass/Vol] 48 mg/dL 5-40 [facility] Work Phone: Serum or plasma creatinine m easurement (mass/volume)on 02-23-2022 Creatinine [Mass/Vol] 1.01 mg/dL 0.70-1.30 [facility] Work Phone: Comment on above: The validity of the calculated GFR & GFRAA in patients over 70 years has not been determined. Clinical correlation is essential. Serum or plasma low density lipoprotein (LDL) cholesterol measurement (mass/volume)on 02-23-2022 Cholesterol in LDL [Mass/Vol] 116 mg/dL 0-130 [facility] Work Phone: Serum or plasma oxcarbazepin e measurement (mass/volume)on 02-23-2022 OXcarbazepine [Mass/Vol] 22 ug/mL 10-35 [facility] Work Phone: Comment on above: This test was develo ped and its performance characteristicsdetermined by [employer]. It has not been cleared orapproved by the Food and Drug Administration. Detection Limit = 1Performed at: [facility] [address] [id number] Director: Andra Sawant MD, Phone: [phone] Serum or plasma urea nitroge n measurement (mass/volume)on 02-23-2022 Urea nitrogen [Mass/Vol] 10 mg/dL 7-18 [facility] Work Phone: Thin prep Papanicolaou smear with manual screeningon 02-23-2022 Thin prep Papanicolaou smear with manual screening 53 U/L 15-37 [facility] Work Phone: Thin prep Papanicolaou smear with manual screening 8 5-15 [facility] Work Phone: Whole blood hemoglobin A1c/t otal hemoglobin ratio (mass fraction)on 02-23-2022 HbA1c (Bld) [Mass fraction] 5.8 % 3.8-5.6 [facility] Work Phone: Comment on above: Normal < 5.7 % Predi abetic 5.7 - 6.4 % Diabetic >or= 6.5 % Please note range changes. No Panel Informationon 02-19 POC SARS CoV-2 Antigen Negative [facility] Work Phone: No Panel Informationon 02-09 POC SARS CoV-2 Antigen Positive [facility] Work Phone: Vital Signs Date Time Vital Sign Value Performing Clinician Facility 10-30-2024 15:09-0400 Body temperature 99.9 [degF] Dr. Ramiro Rosa MD Work Phone: [facility] 10-30-2024 15:09-0400 Diastolic blood pressure 74 mm[Hg] Dr. Ramiro Rosa MD Work Phone: 9(437)122-783757 [place] [address] 10-30-2024 15:09-0400 Heart rate 96 /min Dr. Ramiro Rosa MD Work Phone: 2(636)894-707916 [place] [address] 10-30-2024 15:09-0400 Respiratory rate 16 /min Dr. Ramiro Rosa MD Work Phone: 2(887)240-952457 [place] [address] 10-30-2024 15:09-0400 SaO2% (BldA) [Mass fraction] 93 % Dr. Ramiro Rosa MD Work Phone: 9(761)[phone] [place] [address] 10-30-2024 15:09-0400 Systolic blood pressure 125 mm[Hg] Dr. Ramiro Rosa MD Work Phone: 0(836)[phone] [place] [address] 10-30-2024 14:30-0400 Inhaled oxygen flow rate 2 L/min Dr. Ramiro Rosa MD Work Phone: 5(892)[phone] [place] [address] 10-30-2024 11:29-0400 Body height 165.[address] Ramiro Rosa MD Work Phone: 9(896)[phone] [place] [address] 10-30-2024 11:29-0400 Body mass index (BMI) [Ratio] 30.8 kg/m2 Dr. Ramiro Rosa MD Work Phone: 7(078)568-035257 [place] [address] 10-30-2024 11:29-0400 Body weight [address] Ramiro Rosa MD Work Phone: 7(070)172-637157 [place] [address] 10-23-2024 10:16-0400 Body temperature 96.8 [degF] Dr. Ramiro Rosa MD Work Phone: 3(680)692-558857 [place] [address] 10-23-2024 10:16-0400 Diastolic blood pressure 80 mm[Hg] Dr. Ramiro Rosa MD Work Phone: 5(690)830-234557 [place] [address] 10-23-2024 10:16-0400 Heart rate 65 /min Dr. Ramiro Rosa MD Work Phone: [facility] 10-23-2024 10:16-0400 Respiratory rate 18 /min Dr. Ramiro Rosa MD Work Phone: [facility] 10-23-2024 10:16-0400 SaO2% (BldA) [Mass fraction] 95 % Dr. Ramiro Rosa MD Work Phone: [facility] 10-23-2024 10:16-0400 Systolic blood pressure 121 mm[Hg] Dr. Ramiro Rosa MD Work Phone: [facility] 10-23-2024 06:29-0400 Body height 165.[address] Ramiro Rosa MD Work Phone: [facility] 10-23-2024 06:29-0400 Body mass index (BMI) [Ratio] 31.4 kg/m2 Dr. Ramiro Rosa MD Work Phone: [facility] 10-23-2024 06:29-0400 Body weight 85.[address] Ramiro Rosa MD Work Phone: [facility] 10-15-2024 11:44-0400 Body height 165.1 cm Ramiro Rosa MD Work Phone: [facility] 10-15-2024 11:44-0400 Body mass index (BMI) [Ratio] 31.62 kg/m2 Ramiro Rosa MD Work Phone: [facility] 10-15-2024 11:44-0400 Body weight 86.18 kg Ramiro Rosa MD Work Phone: [facility] 10-15-2024 11:44-0400 Diastolic blood pressure 81 mm[Hg] Ramiro Rosa MD Work Phone: [facility] 10-15-2024 11:44-0400 Heart rate 95 /min Ramiro Rosa MD Work Phone: [facility] 10-15-2024 11:44-0400 SaO2% (BldA) [Mass fraction] 95 % Ramiro Rosa MD Work Phone: [facility] 10-15-2024 11:44-0400 Systolic blood pressure 120 mm[Hg] Ramiro Rosa MD Work Phone: [facility] 10-09-2024 13:56-0400 SaO2% (BldA) [Mass fraction] 95 % Dr. Ramiro Rosa MD Work Phone: [facility] 10-09-2024 13:32-0400 Body temperature 98.1 [degF] Dr. Ramiro Rosa MD Work Phone: 8(093)307-053457 [place] [address] 10-09-2024 13:32-0400 Diastolic blood pressure 87 mm[Hg] Dr. Ramiro Rosa MD Work Phone: [facility] 10-09-2024 13:32-0400 Heart rate 80 /min Dr. Ramiro Rosa MD Work Phone: [facility] 10-09-2024 13:32-0400 Respiratory rate 16 /min Dr. Ramiro Rosa MD Work Phone: [facility] 10-09-2024 13:32-0400 Systolic blood pressure 144 mm[Hg] Dr. Ramiro Rosa MD Work Phone: [facility] 10-09-2024 13:10-0400 Inhaled oxygen flow rate 2 L/min Dr. Ramiro Rosa MD Work Phone: [facility] 10-09-2024 10:19-0400 Body height [address] Ramiro Rosa MD Work Phone: [facility] 10-09-2024 10:19-0400 Body mass index (BMI) [Ratio] 31.6 kg/m2 Dr. Ramiro Rosa MD Work Phone: [facility] 10-09-2024 10:19-0400 Body weight [address] Ramiro Rosa MD Work Phone: [facility] 10-08-2024 19:56-0400 Body temperature 98 [degF] Dr. Ramiro Rosa MD Work Phone: [facility] 10-08-2024 19:56-0400 Diastolic blood pressure 90 mm[Hg] Dr. Ramiro Rosa MD Work Phone: [facility] 10-08-2024 19:56-0400 Heart rate 96 /min Dr. Ramiro Rosa MD Work Phone: [facility] 10-08-2024 19:56-0400 Respiratory rate 18 /min Dr. Ramiro Rosa MD Work Phone: [facility] 10-08-2024 19:56-0400 SaO2% (BldA) [Mass fraction] 97 % Dr. Ramiro Rosa MD Work Phone: [facility] 10-08-2024 19:56-0400 Systolic blood pressure 149 mm[Hg] Dr. Ramiro Rosa MD Work Phone: [facility] 10-08-2024 16:53-0400 Body height 167.[address] Ramiro Rosa MD Work Phone: [facility] 10-08-2024 16:53-0400 Body mass index (BMI) [Ratio] 30.5 kg/m2 Dr. Ramiro Rosa MD Work Phone: [facility] 10-08-2024 16:53-0400 Body weight 85.[address] Ramiro Rosa MD Work Phone: [facility] 10-08-2024 16:16-0400 Body temperature 97 [degF] Zach Cardenas MD Work Phone: [facility] 10-08-2024 16:16-0400 Body weight 85 kg Zach Cardenas MD Work Phone: [facility] 10-08-2024 16:16-0400 Diastolic blood pressure 88 mm[Hg] Zach Cardenas MD Work Phone: [facility] 10-08-2024 16:16-0400 Heart rate 97 /min Zach Cardenas MD Work Phone: [facility] 10-08-2024 16:16-0400 Respiratory rate 20 /min Zach Cardenas MD Work Phone: [facility] 10-08-2024 16:16-0400 SaO2% (BldA) [Mass fraction] 95 % Zach Cardenas MD Work Phone: [facility] 10-08-2024 16:16-0400 Systolic blood pressure 134 mm[Hg] Zach Cardenas MD Work Phone: [facility] 09-27-2024 09:54-0400 Body temperature 97.11 [degF] Sean Verduzco SENIOR CORE [employer] DEVELOPER[employer]GOVERNMENT CLERK Work Phone: [facility] 09-27-2024 09:54-0400 Body weight 86.2 kg Sean Verduzco SENIOR CORE JAVA DEVELOPER.GOVERNMENT CLERK Work Phone: [facility] 09-27-2024 09:54-0400 Diastolic blood pressure 66 mm[Hg] Sean Luba SENIOR CORE JAVA DEVELOPER.GOVERNMENT CLERK Work Phone: [facility] 09-27-2024 09:54-0400 Heart rate 96 /min Sean Verduzco SENIOR CORE JAVA DEVELOPER.GOVERNMENT CLERK Work Phone: [facility] 09-27-2024 09:54-0400 SaO2% (BldA) [Mass fraction] 96 % Sean Verduzco SENIOR CORE JAVA DEVELOPER.GOVERNMENT CLERK Work Phone: [facility] 09-27-2024 09:54-0400 Systolic blood pressure 110 mm[Hg] Sean Verduzco SENIOR CORE JAVA DEVELOPER.GOVERNMENT CLERK Work Phone: [facility] 04-20-2024 11:04-0500 Body height 166.4 cm Ramiro Rosa MD Work Phone: [facility] 04-20-2024 11:04-0500 Body mass index (BMI) [Ratio] 31.27 kg/m2 Ramiro Rosa MD Work Phone: [facility] 04-20-2024 11:04-0500 Body weight 86.55 kg Ramiro Rosa MD Work Phone: [facility] 04-20-2024 11:04-0500 Diastolic blood pressure 74 mm[Hg] Ramiro Rosa MD Work Phone: [facility] 04-20-2024 11:04-0500 Heart rate 73 /min Ramiro Rosa MD Work Phone: [facility] 04-20-2024 11:04-0500 SaO2% (BldA) [Mass fraction] 94 % Ramiro Rosa MD Work Phone: [facility] 04-20-2024 11:04-0500 Systolic blood pressure 117 mm[Hg] Ramiro Rosa MD Work Phone: [facility] 10-24-2023 09:29-0400 Body height 166.4 cm Ramiro Rosa MD Work Phone: [facility] 10-24-2023 09:29-0400 Body mass index (BMI) [Ratio] 30.09 kg/m2 Ramiro Rosa MD Work Phone: [facility] 10-24-2023 09:29-0400 Body weight 83.28 kg Ramiro Rosa MD Work Phone: [facility] 10-24-2023 09:29-0400 Diastolic blood pressure 76 mm[Hg] Ramiro Rosa MD Work Phone: [facility] 10-24-2023 09:29-0400 Heart rate 66 /min Ramiro Rosa MD Work Phone: [employer] 10-24-2023 09:29-0400 SaO2% (BldA) [Mass fraction] 95 % Ramiro Rosa MD Work Phone: [facility] 10-24-2023 09:29-0400 Systolic blood pressure 115 mm[Hg] Ramiro Rosa MD Work Phone: [facility] 09-27-2023 11:13-0400 Body height 166.4 cm Ramrio Rosa MD Work Phone: [facility] 09-27-2023 11:13-0400 Body mass index (BMI) [Ratio] 29.6 kg/m2 Ramiro Rosa MD Work Phone: [facility] 09-27-2023 11:13-0400 Body weight 81.92 kg Ramiro Rosa MD Work Phone: [facility] 09-27-2023 11:13-0400 Diastolic blood pressure 81 mm[Hg] Ramiro Rosa MD Work Phone: [facility] 09-27-2023 11:13-0400 Heart rate 82 /min Ramiro Rosa MD Work Phone: [facility] 09-27-2023 11:13-0400 SaO2% (BldA) [Mass fraction] 95 % Ramiro Rosa MD Work Phone: [facility] 09-27-2023 11:13-0400 Systolic blood pressure 122 mm[Hg] Ramiro Rosa MD Work Phone: [facility] 05-29-2023 10:14-0500 Body temperature 98.2 [degF] Dr. Ramiro Rosa Work Phone: [facility] 05-29-2023 10:14-0500 Diastolic blood pressure 74 mm[Hg] Dr. Ramiro Rosa Work Phone: [facility] 05-29-2023 10:14-0500 Heart rate 98 /min Dr. Ramiro Rosa Work Phone: [facility] 05-29-2023 10:14-0500 Respiratory rate 18 /min Dr. Ramiro Rosa Work Phone: [facility] 05-29-2023 10:14-0500 SaO2% (BldA) [Mass fraction] 97 % Dr. Ramiro Rosa Work Phone: [facility] 05-29-2023 10:14-0500 Systolic blood pressure 115 mm[Hg] Dr. Ramiro Rosa Work Phone: [facility] 04-18-2023 09:03-0500 Body height 166.4 cm Ramiro Rosa MD Work Phone: [facility] 04-18-2023 09:03-0500 Body mass index (BMI) [Ratio] 30.65 kg/m2 Ramiro Rosa MD Work Phone: [facility] 04-18-2023 09:03-0500 Body weight 84.82 kg Ramiro Rosa MD Work Phone: [facility] 04-18-2023 09:03-0500 Diastolic blood pressure 72 mm[Hg] Ramiro Rosa MD Work Phone: [facility] 04-18-2023 09:03-0500 Heart rate 79 /min Ramiro Rosa MD Work Phone: [facility] 04-18-2023 09:03-0500 SaO2% (BldA) [Mass fraction] 94 % Ramiro Rosa MD Work Phone: [facility] 04-18-2023 09:03-0500 Systolic blood pressure 108 mm[Hg] Ramiro Rosa MD Work Phone: [facility] 02-18-2023 14:49-0400 Body temperature 98.01 [degF] Yulia Lujan SENIOR CORE JAVA DEVELOPER.GOVERNMENT CLERK Work Phone: [facility] 02-18-2023 14:49-0400 Body weight 84.19 kg Yulia Lujan SENIOR CORE JAVA DEVELOPER.GOVERNMENT CLERK Work Phone: [facility] 02-18-2023 14:49-0400 Diastolic blood pressure 70 mm[Hg] Yulia Lujan SENIOR CORE JAVA DEVELOPER.GOVERNMENT CLERK Work Phone: [facility] 02-18-2023 14:49-0400 Heart rate 98 /min Yulia Lujan SENIOR CORE JAVA DEVELOPER.GOVERNMENT CLERK Work Phone: [facility] 02-18-2023 14:49-0400 Respiratory rate 16 /min Yulia Lujan SENIOR CORE JAVA DEVELOPER.GOVERNMENT CLERK Work Phone: [facility] 02-18-2023 14:49-0400 SaO2% (BldA) [Mass fraction] 96 % Yulia Lujan SENIOR CORE JAVA DEVELOPER.GOVERNMENT CLERK Work Phone: [facility] 02-18-2023 14:49-0400 Systolic blood pressure 124 mm[Hg] Yulia Lujan SENIOR CORE JAVA DEVELOPER.GOVERNMENT CLERK Work Phone: [facility] 10-18-2022 14:23-0400 Body height 166.4 cm Ramiro Rosa MD Work Phone: [facility] 10-18-2022 14:23-0400 Body mass index (BMI) [Ratio] 30.15 kg/m2 Ramiro Rosa MD Work Phone: [facility] 10-18-2022 14:23-0400 Body weight 83.46 kg Ramiro Rosa MD Work Phone: [facility] 10-18-2022 14:23-0400 Diastolic blood pressure 84 mm[Hg] Ramiro Rosa MD Work Phone: [facility] 10-18-2022 14:23-0400 Heart rate 90 /min Ramiro Rosa MD Work Phone: [facility] 10-18-2022 14:23-0400 SaO2% (BldA) [Mass fraction] 95 % Ramiro Rosa MD Work Phone: [facility] 10-18-2022 14:23-0400 Systolic blood pressure 125 mm[Hg] Ramiro Rosa MD Work Phone: [facility] 08-27-2022 09:43-0400 Body height 166.4 cm Ramiro Rosa MD Work Phone: [facility] 08-27-2022 09:43-0400 Body mass index (BMI) [Ratio] 29.53 kg/m2 Ramiro Rosa MD Work Phone: [facility] 08-27-2022 09:43-0400 Body weight 81.74 kg Ramiro Rosa MD Work Phone: [facility] 08-27-2022 09:43-0400 Diastolic blood pressure 62 mm[Hg] Ramiro Rosa MD Work Phone: [facility] 08-27-2022 09:43-0400 Heart rate 65 /min Ramiro Rosa MD Work Phone: [facility] 08-27-2022 09:43-0400 Systolic blood pressure 110 mm[Hg] Ramiro Rosa MD Work Phone: [facility] 04-17-2022 11:29-0500 Diastolic blood pressure 95 mm[Hg] Dr. Ramiro Rosa Work Phone: [facility] Work Phone: 04-17-2022 11:29-0500 Heart rate 67 /min Dr. Ramiro Rosa Work Phone: [facility] Work Phone: 04-17-2022 11:29-0500 Respiratory rate 16 /min Dr. Ramiro Rosa Work Phone: [facility] Work Phone: 04-17-2022 11:29-0500 SaO2% (BldA) [Mass fraction] 97 % Dr. Ramiro Rosa Work Phone: [facility] Work Phone: 04-17-2022 11:29-0500 Systolic blood pressure 166 mm[Hg] Dr. Ramiro Rosa Work Phone: [facility] [facility] Work Phone: 04-17-2022 09:39-0500 Body height 165.[address] Ramiro Rosa Work Phone: [facility] Work Phone: 04-17-2022 09:39-0500 Body mass index (BMI) [Ratio] 30.9 kg/m2 Dr. Ramiro Rosa Work Phone: [facility] Work Phone: 04-17-2022 09:39-0500 Body temperature 97.3 [degF] Dr. Ramiro Rosa Work Phone: [facility] Work Phone: 04-17-2022 09:39-0500 Body weight 84.[address] Ramiro Rosa Work Phone: [facility] Work Phone: 02-19-2022 10:12-0400 Body temperature 97.2 [degF] Dr. Ramiro Rosa Work Phone: [facility] Work Phone: 02-19-2022 10:12-0400 Diastolic blood pressure 88 mm[Hg] Dr. Ramiro Rosa Work Phone: [facility] Work Phone: 02-19-2022 10:12-0400 Heart rate 81 /min Dr. Ramiro Rosa Work Phone: [facility] Work Phone: 02-19-2022 10:12-0400 Respiratory rate 16 /min Dr. Ramiro Rosa Work Phone: [facility] Work Phone: 02-19-2022 10:12-0400 SaO2% (BldA) [Mass fraction] 97 % Dr. Ramiro Rosa Work Phone: [facility] Work Phone: 02-19-2022 10:12-0400 Systolic blood pressure 128 mm[Hg] Dr. Ramiro Rosa Work Phone: [facility] Work Phone: 02-09-2022 09:43-0400 Body height 165.[address] Ramiro Rosa Work Phone: [facility] Work Phone: 02-09-2022 09:43-0400 Body mass index (BMI) [Ratio] 29.2 kg/m2 Dr. Ramiro Rosa Work Phone: [facility] Work Phone: 02-09-2022 09:43-0400 Body temperature 97.5 [degF] Dr. Ramiro Rosa Work Phone: [facility] Work Phone: 02-09-2022 09:43-0400 Body weight 79.[address] Ramiro Rosa Work Phone: [facility] Work Phone: 02-09-2022 09:43-0400 Diastolic blood pressure 82 mm[Hg] Dr. Ramiro Rosa Work Phone: [facility] Work Phone: 02-09-2022 09:43-0400 Heart rate 101 /min Dr. Ramiro Rosa Work Phone: [facility] Work Phone: 02-09-2022 09:43-0400 Respiratory rate 17 /min Dr. Ramiro Rosa Work Phone: [facility] Work Phone: 02-09-2022 09:43-0400 SaO2% (BldA) [Mass fraction] 97 % Dr. Ramiro Rosa Work Phone: [facility] Work Phone: 02-09-2022 09:43-0400 Systolic blood pressure 120 mm[Hg] Dr. Ramiro Rosa Work Phone: [facility] Work Phone: Encounters Encounter Date Encounter Type Care Provider Facility Start: 10-30-2024 End: 10-30-2024 Admission to same day surgery center Dr. Salvador Rush MD [facility] Start: 10-30-2024 End: 10-30-[address] Ramiro Rosa MD Work Phone: [facility] Start: 10-23-2024 End: 10-23-2024 Admission to same day surgery center Dr. Salvador Rush MD -[facility] Start: 10-23-2024 End: 10-23-[address] Ramiro Rosa MD Work Phone: [facility] Work Phone: Start: 10-15-2024 End: 10-15-2024 Office outpatient visit 25 minutes Ramiro Rosa MD Work Phone: [facility] Comment on above: Essential hypertensi on (Primary Dx); Calculus of kidney; Hyperlipidemia LDL goal <100; Recurrent major depressive disorder, in full remission (HCC) Start: 10-15-2024 End: 10-15-2024 ambulatory [facility] Start: 10-09-2024 Non-patient / Non-visit Dr. Odette Mares MD -[facility] Work Phone: Start: 10-09-2024 End: 10-09-2024 ambulatory Delbert Faye Facility:[facility] Start: 10-09-2024 End: 10-09-2024 Non-patient / Non-visit Dr. Delbert Faye MD -[facility] Work Phone: Start: 10-08-2024 End: 10-09-2024 ambulatory Austin Mares Facility:[facility] Start: 10-08-2024 End: 10-09-2024 Evaluation and management of inpatient Dr. Yamileth Aguirre MD -Medical Surgical 3 Work Phone: Start: 10-08-2024 End: 10-08-2024 Office outpatient visit 25 minutes Zach Cardenas MD Work Phone: [facility] Comment on above: Midline low back taurus n, unspecified chronicity, unspecified whether sciatica present (Primary Dx); Abdominal pain, unspecified abdominal location; Microscopic hematuria; History of kidney stones Start: 10-08-2024 End: 10-08-2024 ambulatory RAMIRO ROSA Facility:[facility] Start: 10-02-2024 End: 10-02-2024 Refill Puja D'Cecily [facility] Comment on above: Hyperlipidemia LDL g oal <100 Start: 09-28-2024 End: 09-29-2024 Follow-up encounter Nicole PISANO Work Phone: [facility] Comment on above: Results Start: 09-27-2024 End: 09-27-2024 [facility] SENIOR CORE JAVA DEVELOPER.GOVERNMENT CLERK Work Phone: [facility] Comment on above: Acute cystitis with hematuria (Primary Dx) Start: 09-27-2024 End: 09-27-2024 ambulatory [facility] Facility:[facility] Start: 08-20-2024 End: 08-20-2024 Refill Virgie Cee SENIOR CORE JAVA DEVELOPER - GOVERNMENT CLERK Work Phone: [facility] Comment on above: Hyperlipidemia LDL g oal <100 Start: 08-10-2024 End: 08-10-2024 Telephone encounter Ramiro Rosa MD Work Phone: [facility] Clinical Communication Start: 07-23-2024 End: 07-23-2024 Refill Ramiro Rosa MD Work Phone: [facility] Start: 07-14-2024 End: 07-14-2024 Refill Ramiro Rosa MD Work Phone: [facility] Start: 06-26-2024 End: 06-26-[address] Ramiro Rosa MD Work Phone: [facility] Work Phone: Start: 06-26-2024 End: 06-26-[address] Dajuan Morrison MD -Laboratory, Specimen Work Phone: Start: 06-26-2024 End: 06-26-2024 ambulatory Dajuan HINDS Facility:[facility] Start: 06-23-2024 End: 06-23-2024 Refill Ramiro Rosa MD Work Phone: [facility] Start: 05-04-2024 End: 05-04-2024 Refill Virgie Bridenthal SENIOR CORE JAVA DEVELOPER - GOVERNMENT CLERK [facility] Start: 05-01-2024 End: 05-01-2024 Refill Virgie Bridenthal SENIOR CORE JAVA DEVELOPER - GOVERNMENT CLERK Work Phone: [facility] Comment on above: Hyperlipidemia LDL g oal <100 Start: 04-20-2024 End: 04-20-2024 ambulatory [facility] Start: 04-20-2024 End: 04-20-2024 Encounter for general adult medical examination without abnormal findings RAMIRO [facility] Start: 04-20-2024 End: 04-20-2024 Patient encounter procedure Ramiro Rosa MD Work Phone: [facility] Work Phone: Start: 04-20-2024 End: 04-20-2024 Periodic preventive med est patient 40-64yrs Ramiro Rosa MD Work Phone: [facility] Comment on above: Annual physical exam (Primary Dx); Essential hypertension; Hyperlipidemia LDL goal <100; Intellectual disability; Recurrent major depressive disorder, in full remission (HCC); Seasonal allergic rhinitis due to pollen; Loud snoring; Screening for diabetes mellitus; Screening for prostate cancer Start: 04-03-2024 End: 04-06-2024 Refill Ramiro Rosa MD Work Phone: [facility] Start: 02-14-2024 End: 02-14-2024 ambulatory Dajuan HINDS Facility:[facility] Start: 02-03-2024 End: 02-03-2024 Refill Virgie Bridenthal SENIOR CORE JAVA DEVELOPER - GOVERNMENT CLERK Work Phone: [facility] Comment on above: Seasonal allergic rh initis due to pollen Start: 01-17-2024 End: 01-17-2024 Telephone encounter Coco Cheema YANNICK Miranda GOVERNMENT CLERK Work Phone: [facility] Comment on above: Results; Release of Information Start: 01-09-2024 End: 01-09-2024 ambulatory Ramiro Rosa MD Work Phone: [facility] Comment on above: MILAGROS (obstructive sle ep apnea); Loud snoring Start: 12-19-2023 ambulatory [facility] Facility :[facility] Start: 12-19-2023 End: 12-19-2023 ambulatory [facility] Facility:[facility] Start: 12-18-2023 End: 12-19-2023 Refill Ramiro Roas MD Work Phone: [facility] Start: 12-03-2023 End: 12-03-2023 Refill Puja D'Cecily [facility] Comment on above: Hyperlipidemia LDL g oal <100 Start: 11-12-2023 End: 11-12-2023 Refill Ramiro Rosa MD Work Phone: [facility] Start: 10-24-2023 End: 10-24-2023 Office outpatient visit 25 minutes Ramiro Rosa MD Work Phone: [facility] Comment on above: Essential hypertensi on (Primary Dx); Hyperlipidemia LDL goal <100; Recurrent major depressive disorder, in full remission (HCC); Seasonal allergic rhinitis due to pollen; MILAGROS (obstructive sleep apnea); Loud snoring; Screening for colon cancer Start: 09-27-2023 End: 09-27-2023 Office outpatient visit 15 minutes Ramiro Rosa MD Work Phone: [facility] Comment on above: Chronic midline low back pain without sciatica (Primary Dx) Start: 07-16-2023 End: 07-16-[address] Ramiro Rosa Work Phone: [facility] Work Phone: Start: 07-16-2023 End: 07-16-[address] Ramiro Rosa Work Phone: [facility]-Physical Therapy Work Phone: Start: 07-10-2023 Refill Ramiro Rosa MD Work Phone: [facility] Start: 07-02-2023 Refill Puja D'Cecily [facility] Comment on above: Essential hypertensi on (Primary Dx); Hyperlipidemia LDL goal <100 Start: 06-07-2023 Refill Ramiro Rosa MD Work Phone: [facility] Start: 05-29-2023 End: 05-29-[address] Ramiro Rosa Work Phone: [facility] Work Phone: Start: 05-29-2023 End: 05-29-[address] Ramiro Rosa Work Phone: [facility]-Laboratory, Specimen Work Phone: Start: 05-29-2023 End: 05-29-[address] Ramiro Rosa Work Phone: [facility] Work Phone: Start: 04-24-2023 Refill Ramiro Rosa MD Work Phone: [facility] Start: 04-18-2023 End: 04-18-2023 Patient encounter procedure Ramiro Rosa MD Work Phone: [facility] Work Phone: Start: 04-18-2023 End: 04-18-2023 Periodic preventive med est patient 40-64yrs Ramiro Rosa MD Work Phone: [facility] Comment on above: Annual physical exam (Primary Dx); Essential hypertension; Seasonal allergic rhinitis due to pollen; Recurrent major depressive disorder, in full remission (HCC); Hyperlipidemia LDL goal <100; Intellectual disability; Screening for diabetes mellitus; Screening for prostate cancer; Chronic midline low back pain without sciatica Start: 03-29-2023 Refill Ramiro Rosa MD Work Phone: [facility] Comment on above: Seasonal allergic rh initis due to pollen Start: 02-18-2023 ambulatory Milly Miller RN [facility] Start: 02-18-2023 End: 02-18-2023 Patient encounter procedure Milly Miller RN [facility] Comment on above: Toenail torn away (P rimary Dx) Start: 01-08-2023 Refill Ramiro Rosa MD Work Phone: [facility] Start: 12-07-2022 Refill Ramiro Rosa MD Work Phone: [facility] Comment on above: Seasonal allergic rh initis due to pollen Start: 10-31-2022 Refill Ramiro Rosa MD Work Phone: [facility] Start: 10-19-2022 Telephone encounter Ramiro Vasquez MD Work Phone: [facility] Comment on above: Medication Problem ( nabumetone (Relafen) 500 MG tablet //) Start: 10-18-2022 End: 10-18-2022 Office outpatient visit 25 minutes Ramiro Rosa MD Work Phone: [facility] Comment on above: Essential hypertensi on (Primary Dx); Hyperlipidemia LDL goal <100; Recurrent major depressive disorder, in full remission (HCC); Acute midline low back pain without sciatica Start: 08-27-2022 End: 08-27-2022 Subsequent hospital visit by physician Ramiro Rosa MD Work Phone: [facility] Comment on above: Acute midline low ba ck pain without sciatica Start: 08-27-2022 End: 08-27-2022 Office outpatient visit 15 minutes Ramiro Rosa MD Work Phone: [facility] Comment on above: Acute midline low ba ck pain without sciatica (Primary Dx) Start: 08-09-2022 End: 08-09-2022 ambulatory [facility] Work Phone: Start: 08-09-2022 End: 08-09-2022 Patient encounter procedure [facility]-Laboratory Start: 08-07-2022 Refill Ramiro Rosa MD Work Phone: [facility] Start: 07-06-2022 Refill Ramiro Rosa MD Work Phone: [facility] Start: 05-04-2022 Telephone encounter Ramiro Vasquez MD Work Phone: [facility] Comment on above: other (BP readings f or one week patient may need more meds) Start: 04-17-2022 End: 04-17-2022 Emergency department patient visit Dr. Ramiro Rosa Work Phone: [facility]-Emergency Department Start: 02-23-2022 End: 02-23-[address] Ramiro Rosa Work Phone: [facility] Work Phone: Start: 02-23-2022 End: 02-23-[address] Ramiro Rosa Work Phone: [facility]-Laboratory Start: 02-19-2022 End: 02-19-[address] Ramiro Rosa Work Phone: [facility] Start: 02-09-2022 End: 02-09-[address] Ramiro Rosa Work Phone: [facility] Procedures Date Procedure Procedure Detail Performing Clinician Start: 10-30-2024 Nany tran, litholapaxy Dr. Ramiro Rosa MD Work Phone: Start: 10-30-[address] Ramiro Rosa MD Work Phone: Start: 10-23-2024 Fluoroscopic guidance Kayla Rosa MD Work Phone: Start: 10-23-2024 Cystoscopy and retro grade pyelography Dr. Ramiro Rosa MD Work Phone: Start: 10-09-2024 Fluoroscopic guidance Kayla Rosa MD [...] - S joe or Plasma Virgie Dudleyal SENIOR CORE JAVA DEVELOPER - GOVERNMENT CLERK Work Phone: Start: 01-16-2024 HOME SLEEP TEST [...] - S joe or Plasma Yulia Lujan APRN.GOVERNMENT CLERK Work Phone: Plan of Treatment Date Care Activity Detail Author Start: 2053 RSV Immunization for Adults (1 - 1-dose 75+ series) RSV Immunization for Adults (1 - 1-dose 75+ series) [facility] Start: 2038 RSV Immunization age d 60 or older (1 - 1-dose 60+ series) RSV Immunization aged 60 or older (1 - 1-dose 60+ series) [facility] Start: 12-18-2033 Screening for malign ant neoplasm of colon [facility] Start: 04-20-2029 Lipid panel [facility] Start: 2028 Zoster Vaccines (1 of 2) Zoster Vacc romulo (1 of 2) [facility] Start: 04-18-2028 Lipid panel [facility] Start: 08-10-2027 Lipid panel [facility] Start: 04-20-2027 Diabetes Screening Diabetes Screenin g [facility] Start: 02-23-2027 Lipid panel [facility] Start: 06-15-2026 Lipid 1996 panel - S joe or Plasma Lipid Screening [facility] Start: 08-09-2025 Diabetes mellitus screening Diabetes Screening [facility] Start: 04-22-2025 End: 04-22-2025 Patient encounter procedure 04/22/2025 10:00 AM EST Office Visit [facility] [address] [place] [address] [place] [address] Ramiro Rosa MD [address] [place] [address] [address] [facility] [place] [address] [facility] Start: 04-16-2025 Depression Monitoring Depression Mon itoring [facility] Start: 02-23-2025 Diabetes mellitus screening Diabetes Screening [facility] Start: 10-30-2024 Taking patient vital signs [facility] Start: 10-30-2024 End: 10-30-2024 [facility] Start: 10-30-2024 Ambulation without limitation [facility] Start: 10-30-2024 Medication education [facility] Start: 10-30-2024 End: 10-30-2024 Patient discharge [facility] Start: 10-30-2024 Planned voiding [facility] Start: 10-30-2024 Fluoroscopic guidance O.R. Fluoro fo r C-Arm [facility] Start: 10-30-2024 [facility] Start: 10-23-2024 Anes trurl fragmntj manj&/rmvl ureteral calculus ANESTH STONE REMOVAL [facility] Start: 10-23-2024 Cysto/uretero w/lithotripsy &indwell stent insrt CYSTO/URETERO W/LITHOTRIPSY [facility] Start: 10-23-2024 DTaP/Tdap/Td Vaccine s (1 - Tdap) DTaP/Tdap/Td Vaccines (1 - Tdap) [facility] Comment on above: Postponed from 10/16 (Patient Refused) Start: 10-23-2024 Hepatitis B Vaccines (1 of 3 - 19+ 3-dose series) Hepatitis B Vaccines (1 of 3 - 19+ 3-dose series) [facility] Comment on above: Postponed from 10/16 (Patient Refused) Start: 10-23-2024 Hepatitis C screening Hepatitis C Sc reening [facility] Comment on above: Postponed from 10/16 (Patient Refused) Start: 10-23-2024 HIV screening HIV Screening [facility]i Comment on above: Postponed from 10/16 (Patient Refused) Start: 10-23-2024 Ambulation without limitation [facility] Start: 10-23-2024 Medical regimen orde rs management [facility] Start: 10-23-2024 Medication education [facility] Start: 10-23-2024 Patient discharge [facility] Start: 10-23-2024 Taking patient vital signs [facility] Start: 10-23-2024 [facility] Start: 10-20-2024 End: 10-20-2024 Patient encounter procedure 10/20/2024 11:30 AM EDT Office Visit [facility] [address] [place] [address] Ramiro Rosa MD [address] [place] [id number] [facility] Start: 10-19-2024 Depression Monitoring Depression [facility] Start: 10-15-2024 End: 10-15-2024 Patient encounter procedure 10/15/2024 11:45 AM EDT Office Visit [address] [place] [address] Ramiro Rosa MD [address] [place] [id number] [facility] Start: 10-09-2024 Patient discharge [facility] Start: 10-08-2024 Following clinical pathway protocol [facility] Start: 10-08-2024 Assessment of risk o f venous thromboembolism [facility] Start: 10-08-2024 Consultation [facility] Start: 10-08-2024 Incentive spirometry [facility] Start: 10-08-2024 Inhalation therapy procedure [facility] Start: 10-08-2024 Insertion of cathete r into peripheral vein [facility] Start: 10-08-2024 Introduction of urin kashif catheter [facility] Start: 10-08-2024 Measuring intake and output [facility] Start: 10-08-2024 Oxygen therapy [facility] Start: 10-08-2024 Providing care accor ding to standard [facility] Start: 10-08-2024 Provision of activit y privileges [facility] Start: 10-08-2024 Referral to service [facility] Start: 10-08-2024 [facility] Start: 10-08-2024 Verification routine [facility] Start: 10-08-2024 Admission procedure [facility] Start: 10-08-2024 Hospital admission, emergency, from emergency room, medical nature [facility] Start: 10-08-2024 Anes transurethral w/urethrocystoscopy nos ANESTH BLADDER SURGERY [facility] Start: 10-08-2024 Cysto w/insert urete ral stent CYSTOSCOPY AND TREATMENT [facility] Start: 09-16-2024 Diabetes mellitus screening Diabetes Screening [facility] Start: 04-24-2024 Depression Monitoring Depression [facility] Start: 04-20-2024 End: 04-20-2025 Comprehensive metabolic 1998 panel - Serum or Plasma Comprehensive metabolic panel Lab Routine Screening for diabetes mellitus Expected: 04/20/2024 (Approximate), Expires: 04/20/2025 [facility] Comment on above: Expected: 04/20/2024 (Approximate), Expires: 04/20/2025 Start: 04-20-2024 End: 04-20-2025 Lipid 1996 panel - Serum or Plasma Lipid panel Lab Routine Hyperlipidemia LDL goal <100 Expected: 04/20/2024 (Approximate), Expires: 04/20/2025 [facility] Work Phone: Comment on above: Expected: 04/20/2024 (Approximate), Expires: 04/20/2025 Start: 04-20-2024 End: 04-20-2025 PSA Total (Screening) PSA Total (Screening) Lab Routine Screening for prostate cancer Expected: 04/20/2024 (Approximate), Expires: 04/20/2025 [facility] Comment on above: Expected: 04/20/2024 (Approximate), Expires: 04/20/2025 Start: 04-20-2024 End: 04-20-2024 Patient encounter procedure [facility] Start: 01-09-2024 End: 01-09-2024 Clinical Support 01/09/2024 9:00 AM EDT Clinical Support [facility] [address] [place] [address] Ramiro Rosa MD [address] [place] [address] [facility] Start: 01-05-2024 COVID-19 Vaccine () COVID-19 Vaccine () [facility] Start: 01-05-2024 COVID-19 Vaccine () COVID-19 Vaccine () [facility] Start: 01-05-2024 Influenza vaccination Influenza Vacc ine (#1) [facility] Start: 10-24-2023 End: 10-23-2024 Home sleep test Home sleep test Sleep Center Routine MILAGROS (obstructive sleep apnea) Loud snoring Expected: 10/24/2023 (Approximate), Expires: 10/23/2024 [facility] Work Phone: Comment on above: Expected: 10/24/2023 (Approximate), Expires: 10/23/2024 Start: 10-24-2023 End: 10-24-2023 Patient encounter procedure 10/24/2023 9:30 AM EDT Office Visit [facility] [place] [place] [address] [facility]amiro Rosa [place] [address] [facility] Start: 10-18-2023 Depression Monitoring Depression Mon itoring [facility] Start: 10-18-2023 Depresssion Monitoring Depresssion M onitoring [facility] Start: 10-17-2023 Screening for malign ant neoplasm of colon [facility] Start: 08-10-2023 Diabetes mellitus screening Diabetes Screening [facility] Start: 05-29-2023 Urine culture Urine Culture [facility] Start: 05-29-2023 [facility] Start: 04-18-2023 End: 04-18-2024 Comprehensive metabolic 1998 panel - Serum or Plasma Comprehensive metabolic panel Lab Routine Screening for diabetes mellitus Expected: 04/18/2023 (Approximate), Expires: 04/18/2024 [facility] Work Phone: Comment on above: Expected: 04/18/2023 (Approximate), Expires: 04/18/2024 Start: 04-18-2023 End: 04-18-2024 Lipid 1996 panel - Serum or Plasma Lipid panel Lab Routine Hyperlipidemia LDL goal <100 Expected: 04/18/2023 (Approximate), Expires: 04/18/2024 [facility] Comment on above: Expected: 04/18/2023 (Approximate), Expires: 04/18/2024 Start: 04-18-2023 End: 04-18-2024 PSA Total (Screening) PSA Total (Screening) Lab Routine Screening for prostate cancer Expected: 04/18/2023 (Approximate), Expires: 04/18/2024 [facility] Comment on above: Expected: 04/18/2023 (Approximate), Expires: 04/18/2024 Start: 04-18-2023 End: 04-18-2023 Patient encounter procedure 04/18/2023 9:30 AM EST Office Visit [facility] [address] [place] [id number] Ramiro Rosa MD [address] [place] [id number] [facility] Start: 01-04-2023 Covid-19 Vaccine ( season) Covid-19 Vaccine ( season) [facility] Start: 01-04-2023 Influenza vaccination Influenza Vacc ine (#1) [facility] Start: 10-18-2022 End: 10-18-2022 Patient encounter procedure 10/18/2022 Office Visit Family Medicine Ramiro Rosa MD [address] [place] [address] [place] [address] [facility] Start: 05-06-2022 Depression Assessment Depression Ass essment [facility] Start: 06-05-2021 COVID-19 Vaccine (4 - Booster for Moderna series) COVID-19 Vaccine (4 - Booster for Moderna series) [facility] Start: 06-05-2021 COVID-19 Vaccine (4 - Moderna series) COVID-19 Vaccine (4 - Moderna series) [facility] Start: 1997 DTaP/Tdap/Td Vaccine s (1 - Tdap) DTaP/Tdap/Td Vaccines (1 - Tdap) [facility] Start: 1997 Hepatitis B Vaccine (1 of 3 - 19+ 3-dose series) Hepatitis B Vaccine (1 of 3 - 19+ 3-dose series) [facility] Start: 1997 Hepatitis B Vaccines (1 of 3 - 19+ 3-dose series) Hepatitis B Vaccines (1 of 3 - 19+ 3-dose series) [facility] Start: 1997 Urine microalbumin profile DTaP,Tdap,Td Vaccine (1 - Tdap) [facility] Start: 1996 Anxiety Screening Anxiety Screening [facility] Start: 1996 Depression Screening Depression Scre [facility] Start: 1996 Hepatitis C screening Hepatitis C [facility] Start: 1996 Hepatitis C Screening Hepatitis C [facility] Start: 1996 HIV Screening HIV Screening [facility] Start: 1996 HIV screening HIV Screening [facility] Start: 1990 [facility]: 1978 Hepatitis B Vaccine (1 of 3 - 3-dose series) Hepatitis B Vaccine (1 of 3 - 3-dose series) [facility] Start: 1978 Hepatitis B Vaccines (1 of 3 - 3-dose series) Hepatitis B Vaccines (1 of 3 - 3-dose series) [facility] Start: 1978 HIV screening HIV Screening [facility] Start: 1978 Screening for malign ant neoplasm of colon [facility] Bacteria identified in Urine by Culture BACTERIAL CULTURE, URINE Microbiology Routine Acute cystitis with hematuria Ordered: 09/27/2024 [facility] Work Phone: Comment on above: Ordered: 09/27/2024 Bilirubin measuremen t, urine [facility] Hemoglobin [Presence ] in Urine [facility] Measurement of keton es in urine using dipstick [facility] Microscopic urinalysis [facility] OUTSIDE PROCEDURE SCAN OUTSIDE P ROCEDURE SCAN Procedures Ordered: 08/27/2022 [facility] Comment on above: Ordered: 08/27/2022 Patient Education [facility] Work Phone: Patient referral [facility] Work Phone: pH of Urine [facility] Specific gravity of Urine [facility] UA DIP, URINE (POC) UA DIP, URIN E (POC) Lab Routine Acute cystitis with hematuria Ordered: 09/27/2024 [facility] Comment on above: Ordered: 09/27/2024 Urine blood test [facility] Urine culture [facility] Urine dipstick for glucose [facility] Urine dipstick for leukocyte esterase [facility] Urine dipstick for nitrite [facility] Urine dipstick for protein [facility] Urine examination [facility] Urine microscopy: epithelial cells [facility] Urine Microscopy: wh ite cells [facility] Urobilinogen [Presen ce] in Urine [facility] Immunizations Immunization Date Immunization Notes Care Provider Kobi richards 03-26-2024 Seasonal, trivalent, recombinant, injectable influenza vaccine, preservative free Ramiro Rosa MD Work Phone: [facility] 02-07-2023 influenza, injectabl e, quadrivalent, contains preservative Milly Miller RN [facility] 02-07-2023 Seasonal, quadrivale nt, recombinant, injectable influenza vaccine, preservative free Puja D'Cecily [facility] 02-07-2023 influenza virus vacc ine, unspecified formulation Ramiro Rosa MD Work Phone: [facility] 02-23-2022 Influenza, injectabl e, Madin Marcela Canine Kidney, preservative free, quadrivalent Ramiro Rosa MD Work Phone: [facility] 02-23-2022 influenza virus vacc ine, unspecified formulation Ramiro Rosa MD Work Phone: [facility] 04-10-2021 Moderna SARS-CoV-2 Vaccination Ramiro Rosa MD Work Phone: [facility] 01-25-2021 influenza, injectabl e, quadrivalent, preservative free Ramiro Rosa MD Work Phone: [facility] 03-24-2020 Seasonal, quadrivale nt, recombinant, injectable influenza vaccine, preservative free Ramiro Rosa MD Work Phone: [facility] 02-11-2019 Influenza, injectabl e, Madin Calhoun Canine Kidney, preservative free, quadrivalent Ramiro Rosa MD Work Phone: [facility] 04-11-2018 influenza, seasonal, injectable Ramiro Rosa MD Work Phone: [facility] 04-10-2017 influenza, injectabl e, quadrivalent, contains preservative Ramiro Rosa MD Work Phone: [facility] 03-28-2016 influenza, injectabl e, quadrivalent, contains preservative Ramiro Rosa MD Work Phone: [facility] 03-08-2014 influenza, seasonal, injectable Ramiro Rosa MD Work Phone: [facility] 09-14-2013 measles, mumps and r ubella virus vaccine Ramiro Rosa MD Work Phone: [facility] 02-25-2009 influenza virus vacc ine, whole virus Ramiro Rosa MD Work Phone: [facility] Payers Date Payer Category Payer Self-pay [id number] 2017 Medicaid [id number] 2009 Medicaid [id number] Unknown [id number] 2.16.8 [id number] Unknown [id number] 2.16.8 [id number] Unknown [id number] 2.16.8 [id number] Unknown [id number] 2.16.8 [id number] Unknown [id number] 2.16.8 [id number] Unknown [id number] 2.16.8 [id number] Unknown [id number] 2.16.8 [id number] Unknown [id number] 2.16.8 [id number] Unknown [id number] 2.16.8 [id number] Unknown [id number] 2.16.8 [id number] Social History Date Type Detail Facility Start: 02-19-2022 End: 05-29-2023 Tobacco smoking status WAIS Unknown if ever smoked [facility] Start: 03-02-2021 None [facility] Start: 03-02-2021 Non-smoker [facility] Start: 1980 Sex Assigned At Male [facility] Start: 12-16-2023 End: 10-28-2024 Tobacco smoking status NHIS Never smoked tobacco [facility] Start: 04-19-2022 End: 10-15-2024 Alcohol intake Current non-drinker of alcohol (finding) [facility] Start: 1980 Sex Assigned At Not on file [facility] Start: 04-09-2022 End: 08-27-2022 Exposure to SARS-CoV-2 (event) Not sure [facility] Start: 08-27-2022 End: 10-24-2023 History of Social function [facility] Start: 08-27-2022 End: 10-24-2023 Tobacco use panel [facility] Start: 10-08-2022 End: 10-18-2022 Exposure to SARS-CoV-2 (event) Yes [facility] National Score (1-100), lower number is lower risk Not on file [facility] (I/We) worried whemadonna er (my/our) food would run out before (I/we) got money to buy more. Never true [facility] In the past 12 month s, was there a time when you were not able to pay the mortgage or rent on time? No [facility] Are you now , , , , never or living with a partner? Never [facility] Do you feel stress - tense, restless, nervous, or anxious, or unable to sleep at night because your mind is troubled all the time - these days [OSQ] Only a little [facility] Start: 12-04-2021 End: 07-09-2024 Sex Male (finding) [facility] How often do you nee d to have someone help you when you read instructions, pamphlets, or other written material from your doctor or pharmacy [SILS] Always [facility] Start: 10-08-2024 Tobacco use and exposure Smokeless tobacco non-user [facility] Medical Equipment Procedure Code Equipment Code Equipment Origin al Text Equipment Identifier Dates Cystoscopy, with retrograde pyelogram, ureteroscopy, laser procedure, and stent inser ([id number]) Polymeric ureteral stent [id number] FDA Start: 10-23-2024 Cystoscopy, with retrograde pyelogram and ureteral stent insertion STENT,URETERAL PIGTAIL [id number] FDA Start: 10-09-2024 Cystoscopy, with retrograde pyelogram and ureteral stent insertion STENT,URETERAL PIGTAIL [id number] FDA Start: 10-09-2024 Goals Date Patient Goal Desired Activity /State Functional Status Date Assessment Result Facility 10-15-2024 Patient [facility] ionnaire 2 item (PHQ-2) [Reported] [facility] 10-15-2024 PHQ-9 quick depressi on assessment panel [Reported.PHQ] [facility] 10-09-2024 Functional status Bathroom Privi lege;Back to bed [facility] Work Phone: Mental Status Date Assessment Result Facility 10-30-2024 Cognitive function Voice/Name [facility] Work Phone: 10-23-2024 Cognitive function Voice/Name [facility] Work Phone: 10-09-2024 Cognitive function Level Of Cons ciousness Awake;Alert;Appropriate [facility] Work Phone: 10-09-2024 Cognitive function Voice/Name [facility] Work Phone: 10-09-2024 Cognitive function Cooperative;Anxious [facility] Work Phone: 04-17-2022 Cognitive function Level Of Cons ciousness Awake;Alert;Appropriate;Follow s Commands [facility] Work Phone: Clinical Notes 05-04-2022 to 10-30-2024 Note Date & Type Note Facility 10-30-2024 Consult note [facility] 10-30-2024 Consult note Note Date/Time October 30, 2024 12:23pm [facility] Medical Records Department [address] [place] [address] Pre-Anesthesia Evaluation 10/30/24 1214 MR#: [id number] Acct: [id number] Name: CHAN BURCIAGA Rep #:[id number] : 1980 44 From: Vinay Maciel MD PCP: Dr. Ramiro Rosa MD Status:REG [facility] Y Race: C Location: [place] [address] ASA Classification* ASA Classification ASA Classification: 3 Assessment & Plan Anesthesia* Anesthesia Assessment Anesthesia [...] anesthesia risk assessments. Anesthesia Type Anesthesia Type: General (LMA versus Norris scope for endotracheal intubation.) History Source History Obtained from:: Patient and Chart Anesthesia Focused Assessment* Temperature: 100.7 F Pulse Rate: 108 Blood Pressure: 130/85 Respiratory Rate: 18 Pulse Ox: 96 Oxygen Delivery Method: Room Air Airway Assessment Mouth opens: >3 cm Mallampati Score: IV Teeth Condition: Intact Neck Range of motion (ROM): Limited ROM Labs Anesthesia Preop lab: CBC WBC 15.1 K/mm3 (4.4-11.0) H 10/30/24 11:15 5 RBC 4.32 M/mm3 (4.6-6.2) L 10/30/24 11:15 10/30/24 Hgb 12.4 g/dL (13.0-16.5) L 10/30/24 11:15 5 Hct 36.9 % (40-54) L 10/30/24 11:15 10/30/24 Plt Count 399 K/mm3 (150-450) 10/30/24 11:15 10/30/24 CHEMISTRY Potassium 4.7 mmol/L (3.3-5.1) 10/30/24 11:15 10/30/24 Sodium 132 mmol/L (133-145) L 10/30/24 11:15 10/30/24 BUN 13 mg/dL (4-19) 10/30/24 11:15 10/30/24 Creatinine 1.09 mg/dL (0.70-1.20) 10/30/24 11:15 10/30/24 Glucose 122 mg/dL (70-99) H 10/30/24 11:15 10/30/24 COAG Pre-Assessment Diagnosis/Proposed Procedure Planned Operative Procedure(s): LITHOPLAXY OF BLADDER STONE Anesthesia History Anesthesia History - event planning manager: Anesthesia History - event planning manager Hx Hospitalization Yes: 10/09/24 KIDNEY STONE 10/28/24 16:22 Any Problems With Anesthesia No 10/28/24 16:22 Cholinesterase deficiency No 10/28/24 16:22 You/Your Family Experience No 10/28/24 16:22 fever (hyperthermia) with Relationship Recent Exposure to Contagious No 10/30/24 11:29 Disease Does patient have nerve No 10/28/24 16:22 stimulator Patient instructed to have device shut off --Does patient have Pacemaker No 10/30/24 11:29 or ICD? When Was Last Pacemaker Check QUESTION #4 FULL TEXT: You/Your Family Experience fever (hyperthermia) with Anesthesia Last Oral Intake Last Oral intake: Last Oral Intake NPO since 06:00 10/30/24 11:29 Meds taken in AM with sips of Yes 10/30/24 11:29 water? Meds patient instructed to take am of surgery Any additional information?: Yes Meds taken in AM with sips of water?: Yes PONV PONV - event planning manager: PONV - event planning manager Female No 10/28/24 16:22 HX of Motion Sickness No 10/28/24 16:22 HX of N/V After Surgery No 10/28/24 16:22 Non-Smoker Yes 10/28/24 16:22 Duration of Surgery greater No 10/28/24 16:22 than 60 minutes Number of Risk Factors 1 10/28/24 16:22 PONV Score Low Risk 10/28/24 16:22 Height & Weight Height & Weight: Anesthesia: Height & Weight Height 5 ft 5 in 10/30/24 11:29 Weight: 84 kg 10/30/24 11:29 Body Mass Index (BMI) 30.8 10/30/24 11:29 Respiratory Assessment Respiratory Assessment - event planning manager: Respiratory Tract Infection Hx - event planning manager Hx Respiratory Tract Infection No 10/28/24 16:22 STOP Sleep Apnea STOP Sleep Apnea - event planning manager: STOP Sleep Apnea - event planning manager Hx Hypertension Yes: CONTROLLED WITH MED 10/28/24 16:22 Hx Sleep Apnea No 10/28/24 16:22 CPAP BIPAP Do you snore loudly (louder No 10/28/24 16:22 than talking or can be heard Do you often feel tired/ No 10/28/24 16:22 fatigued/ sleepy during daytime? Has anyone observed you stop No 10/28/24 16:22 breathing during sleep? STOP Results Negative 10/28/24 16:22 QUESTION #5 FULL TEXT : Do you snore loudly (louder than talking or can be heard through closed doors)? 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 Specify any problems Hx of Preganancy in last 3 N/A 10/28/24 16:22 Months Nurse Filling Out Transfusion [facility] 10/28/24 16:22 & Questions: Date: 10/28/24 10/28/24 16:22 Time: 16:23 10/28/24 16:22 Patient unable to answer at this time (ie. confused, unrespo /Reproduction History /Reproductive History - event planning manager: /Reproductive Hx- event planning manager Hx Now No 10/28/24 16:22 Gestational Age (in weeks): EDC: Hx Hx Para Hx Section SAB No 10/15/24 10:22 Active Medications Active Medications: Current Medications Generic Name Dose Route Start Last Admin Trade Name Freq PRN Reason Stop Dose Admin Lactated Ringer's 1,000 mls @ 15 mls/hr 10/30/24 10:45 10/30/24 11:35 IV 15 mls/hr .Q48H VIDHI Administration PFSH Medical History Anxiety Dietary restriction Lives in care home Arthritis Back pain Non-smoker Shortness of breath on exertion Intellectual disability Recurrent major depression in full remission Hyperlipidemia Essential hypertension Urinary tract infection with hematuria Home Medications ?Medication ?Instructions ?Recorded ?Last Taken ?Type fenofibrate nanocrystallized 145 145 mg PO DAILY 07/0810/23/24 History mg tablet folic acid 400 mcg tablet 0.4 mg PO DAILY@0800 9 10/22/24 History garlic 200 mg tablet 350 mg PO DAILY 07/08/18 History loratadine 10 mg capsule (Claritin 10 mg PO DAILY 09/2110/22/24 History Liqui-Gel) omega-3 fatty acids-fish oil 340 3 ea PO DAILY 10/22/24 History mg-1,000 mg capsule (Fish Oil) ammonium lactate 12 % topical cream 1 applic topical D AILY 05/29/23 10/22/24 History atorvastatin 40 mg tablet 40 mg PO DAILY 05/29/2310/04 History clonidine HCl 0.2 mg tablet 0.2 mg PO BID 05/29/23 History doxazosin 2 mg tablet 2 mg PO QHS 05/29/23 5 History fluticasone propionate 50 2 spray intranasal DAILY 10/22/24 History mcg/actuation nasal spray,suspension (Allergy Relief (fluticasone)) losartan 100 mg tablet 100 mg PO DAILY 05/29/23 History multivitamin-ferrous 1 tab PO DAILY 05/29/2310/04 History fumarate-folic acid 18 mg-400 mcg tablet (Certavite-Antioxidant) nabumetone 500 mg tablet 500 mg PO BID PRN pain 05/29 Unknown History quetiapine 150 mg tablet,extended 100 mg PO 0700 05/2910/30/24 History release 24 hr neomycin-bacitracn Zn-polymyx 3.5 1 applic topical TID PRN dry skin 11/05/23 10/22/24 History mg-400 unit-5,000 unit/gram top oint (Neosporin (izx-jbv-wbzar)) oxcarbazepine 600 mg tablet 600 mg PO BID 11/05/23 History clonazepam 0.5 mg tablet 0.25 mg PO TID 10/15/2410/05 History quetiapine 200 mg tablet 200 mg PO 1600 10/15/2410/04 History cephalexin 500 mg capsule 500 mg PO TID #15 caps 10/23 Unknown Rx oxycodone 5 mg tablet 5 mg PO Q6H PRN pain 7 days #20 10/23/24 10/29/24 Rx tabs Allergy/AdvReac Type Severity Reaction Status Date / Time risperidone (From Risperdal) Allergy ANXIETY Verified 10/23/24 06:26 Family History Mother Hyperlipidemia Father Hyperlipidemia Surgical History Hx of colonoscopy Hx of cystoscopy Hx of cystoscopy History of testicular surgery History of ankle surgery Social History household members: other details: Lives with others in residential home number of children: 0 Smoking Status: Never smoker alcohol intake: never substance use type: does not use Review of Systems (Anesthesia) ROS Narrative System reviewed and no additional complaints, except as documented. 10/30/24 1223 <Electronically signed by Vinay ybarra MD> Date _ Vinay Maciel MD Cosigner Signature: Date CC: ~ Signed [facility] Work Phone: 1(767) 351-616806-27-2025 Procedure note [facility] Medical Records Department [address] [place] [address] Operative Report 10/30/24 1410 MR#: [id number] Acct: [id number] Name: CHAN BURCIAGA Rep #:[id number] : 1980 44 From: Salvador Rush MD PCP: Dr. Ramiro Rosa MD Status:[facility] Location: [place] [address] Operative Report (Standard) Operative Information Date of Procedure: 10/30/24 Pre-Operative Diagnosis: Large bladder stones status post laser of left stones Post-Operative Diagnosis: Same Surgery/Procedure Performed: Cystolitholapaxy and laser of large bladder stones and removal of leftstent euclid operator: No Type of Anesthesia: General RN Documented Start/Stop Times: Operation Date: 10/30/24 12:40 Case Time Into Pre-Op 10/30/24 10:37 Procedure Start Time: 13:46 Procedure Stop Time: 14:14 Select all DRAINS/GRAFTS/IMPLANTS that apply: None Estimated Blood Loss: None Specimen collected: No Description of surgery: This is a 44-year-old male who last week and lasered multiple bunch of stones inthe ureter tube andup in the kidney there is a stent on that left side he had awhole bunch of really hard large stonesin the bladder today we can laser the stones in the bladder and remove the stent. Patient was takenback to the operating room after smooth duction of anesthesia went in the bladder with a 21 Salvadorean rigid cystourethroscope went inside the bladder grabbed the existing stent from the left side and pulled out gently I then went to the stones and used a 916 ?m laser fiber and piece by piece of the laser each stone there are several stones on total size were greater than 2 cm in size after lasering all the stones little tiny pieces then all the pieces were then flushed out of the bladder he did have a large obstructive prostate large median lobe probably would benefit from surgical intervention of the prostate but for now we will puthim on medical therapy with Flomax and Proscar. He will go home today and I will have him come back to the office for checkup and we will plan to do a TURP in the near future Surgical Findings: Large stones in the bladder lasered completely and removed stones were greater than 3 cm in size Complications Complications: No Admit VTE Documentation VTE Present on Admission: No VTE Mechan Device Prophylaxis: SCD's VTE Pharm Prophylaxis ordered?: No 10/30/24 1414 Cosigner Signature (if applicable): CC: Dr. Ramiro Rosa MD; Dr. Salvador Rush MD~ Signed [facility]06-27-2025 Discharge summary [facility] Medical Records Department [address] [place] [address] Instructions for Home/Discharge Instructions 10/30/24 1331 MR#: [id number] Acct: [id number] Name: CHAN BURCIAGA Rep #:[id number] : 1980 44 From: Salvador Rush MD PCP: Dr. Ramiro Rosa MD Status:REG [facility] Discharge Instructions Diet Discharge Diet: No restrictions DC O2, CPAP, BIPAP needs Home O2 Discharge instructions: No Dressing / Incision Discharge Activity: Return to Normal Activity Follow Up Care Please Follow Up With: Salvador Rush MD When: Call [phone] for an appointment Test Results: Test results from this visit will be discussed in further detail at your follow- up appointment, if applicable. Discharge Plan Admission Primary Reason for Your Visit: laser bladder stones Attending Provider: Salvador Rush Primary Care Provider: Ramiro Rosa Instructions Print Language: Algerian Discharge Orders/Prescriptions Prescriptions: New sulfamethoxazole-trimethoprim [Bactrim DS] 800-160 mg tablet 1 tab PO BID Qty: 14 0RF tamsulosin [Flomax] 0.4 mg capsule 0.4 mg PO QHS Qty: 30 1RF finasteride [Proscar] 5 mg tablet 5 mg PO DAILY Qty: 30 1RF Continued quetiapine 150 mg tablet extended release 24 hr 100 mg PO 0700 Patient Comments: TAKE 1 TABLET BY MOUTHEONCE [...] mg tablet 600 mg PO BID Neosporin (ypj-akc-mnloi) 3.5mg-400 unit- 5,000 unit/gram ointment 1 applic [...] 200 MG tablet 350 mg PO DAILY quetiapine 200 mg tablet 200 mg PO 1600 clonazepam 0.5 mg tablet 0.25 mg PO TID cephalexin 500 mg capsule 500 mg PO TID Qty: 15 0RF oxycodone 5 mg tablet 5 mg PO Q6H PRN (Reason: pain) 7 Days Qty: 20 0RF Referrals / Follow Up: Ramiro Rosa MD [Primary Care Provider] - Salvador Rush MD [Med Staff - Active Staff] - Disposition Disposition (needs filled in before D/C Order can be placed): Home, Self Care 10/30/24 1332Salvador Rush MD CC: Dr. Ramiro Rosa MD ~ Signed [facility]06-27-2025 Consult note [facility] Medical Records Department [address] [place] [address] Pre-Anesthesia Evaluation 10/30/24 1214 MR#: [id number] Acct: [id number] Name: CHAN BURCIAGA Rep #:[id number] : 1980 44 From: Vinay Maciel MD PCP: Dr. Ramiro Rosa MD Status:REG [facility] Y Race: C Location: [place] [address] ASA Classification* ASA Classification ASA Classification: 3 Assessment & Plan Anesthesia* Anesthesia Assessment Anesthesia [...] anesthesia risk assessments. Anesthesia Type Anesthesia Type: General (LMA versus Norris scope for endotracheal intubation.) History Source History Obtained from:: Patient and Chart Anesthesia Focused Assessment* Temperature: 100.7 F Pulse Rate: 108 Blood Pressure: 130/85 Respiratory Rate: 18 Pulse Ox: 96 Oxygen Delivery Method: Room Air Airway Assessment Mouth opens: >3 cm Mallampati Score: IV Teeth Condition: Intact Neck Range of motion (ROM): Limited ROM Labs Anesthesia Preop lab: CBC WBC 15.1 K/mm3 (4.4-11.0) H 10/30/24 11:15 5 RBC 4.32 M/mm3 (4.6-6.2) L 10/30/24 11:15 10/30/24 Hgb 12.4 g/dL (13.0-16.5) L 10/30/24 11:15 5 Hct 36.9 % (40-54) L 10/30/24 11:15 10/30/24 Plt Count 399 K/mm3 (150-450) 10/30/24 11:15 10/30/24 CHEMISTRY Potassium 4.7 mmol/L (3.3-5.1) 10/30/24 11:15 10/30/24 Sodium 132 mmol/L (133-145) L 10/30/24 11:15 10/30/24 BUN 13 mg/dL (4-19) 10/30/24 11:15 10/30/24 Creatinine 1.09 mg/dL (0.70-1.20) 10/30/24 11:15 10/30/24 Glucose 122 mg/dL (70-99) H 10/30/24 11:15 10/30/24 COAG Pre-Assessment Diagnosis/Proposed Procedure Planned Operative Procedure(s): LITHOPLAXY OF BLADDER STONE Anesthesia History Anesthesia History - event planning manager: Anesthesia History - event planning manager Hx Hospitalization Yes: 10/09/24 KIDNEY STONE 10/28/24 16:22 Any Problems With Anesthesia No 10/28/24 16:22 Cholinesterase deficiency No 10/28/24 16:22 You/Your Family Experience No 10/28/24 16:22 fever (hyperthermia) with Relationship Recent Exposure to Contagious No 10/30/24 11:29 Disease Does patient have nerve No 10/28/24 16:22 stimulator Patient instructed to have device shut off --Does patient have Pacemaker No 10/30/24 11:29 or ICD? When Was Last Pacemaker Check QUESTION #4 FULL TEXT: You/Your Family Experience fever (hyperthermia) with Anesthesia Last Oral Intake Last Oral intake: Last Oral Intake NPO since 06:00 10/30/24 11:29 Meds taken in AM with sips of Yes 10/30/24 11:29 water? Meds patient instructed to take am of surgery Any additional information?: Yes Meds taken in AM with sips of water?: Yes PONV PONV - event planning manager: PONV - event planning manager Female No 10/28/24 16:22 HX of Motion Sickness No 10/28/24 16:22 HX of N/V After Surgery No 10/28/24 16:22 Non-Smoker Yes 10/28/24 16:22 Duration of Surgery greater No 10/28/24 16:22 than 60 minutes Number of Risk Factors 1 10/28/24 16:22 PONV Score Low Risk 10/28/24 16:22 Height & Weight Height & Weight: Anesthesia: Height & Weight Height 5 ft 5 in 10/30/24 11:29 Weight: 84 kg 10/30/24 11:29 Body Mass Index (BMI) 30.8 10/30/24 11:29 Respiratory Assessment Respiratory Assessment - event planning manager: Respiratory Tract Infection Hx - event planning manager Hx Respiratory Tract Infection No 10/28/24 16:22 STOP Sleep Apnea STOP Sleep Apnea - event planning manager: STOP Sleep Apnea - event planning manager Hx Hypertension Yes: CONTROLLED WITH MED 10/28/24 16:22 Hx Sleep Apnea No 10/28/24 16:22 CPAP BIPAP Do you snore loudly (louder No 10/28/24 16:22 than talking or can be heard Do you often feel tired/ No 10/28/24 16:22 fatigued/ sleepy during daytime? Has anyone observed you stop No 10/28/24 16:22 breathing during sleep? STOP Results Negative 10/28/24 16:22 QUESTION #5 FULL TEXT : Do you snore loudly (louder than talking or can be heard through closeddoors)? 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 Specify any problems Hx of Preganancy in last 3 N/A 10/28/24 16:22 Months Nurse Filling Out Transfusion [facility] 10/28/24 16:22 & Questions: Date: 10/28/24 10/28/24 16:22 Time: 16:23 10/28/24 16:22 Patient unable to answer at this time (ie. confused, unrespo /Reproduction History /Reproductive History - event planning manager: /Reproductive Hx- event planning manager Hx Now No 10/28/24 16:22 Gestational Age (in weeks): EDC: Hx Hx Para Hx Section SAB No 10/15/24 10:22 Active Medications Active Medications: Current Medications Generic Name Dose Route Start Last Admin Trade Name Freq PRN Reason Stop Dose Admin Lactated Ringer's 1,000 mls @ 15 mls/hr 10/30/24 10:45 10/30/24 11:35 IV 15 mls/hr .Q48H VIDHI Administration PFSH Medical History Anxiety Dietary restriction Lives in care home Arthritis Back pain Non-smoker Shortness of breath on exertion Intellectual disability Recurrent major depression in full remission Hyperlipidemia Essential hypertension Urinary tract infection with hematuria Home Medications ?Medication ?Instructions ?Recorded ?Last Taken ?Type fenofibrate nanocrystallized 145 145 mg PO DAILY 07/0810/23/24 History mg tablet folic acid 400 mcg tablet 0.4 mg PO DAILY@0800 9 10/22/24 History garlic 200 mg tablet 350 mg PO DAILY 07/08/18 History loratadine 10 mg capsule (Claritin 10 mg PO DAILY 09/2110/22/24 History Liqui-Gel) omega-3 fatty acids-fish oil 340 3 ea PO DAILY 10/22/24 History mg-1,000 mg capsule (Fish Oil) ammonium lactate 12 % topical cream 1 applic topical D AILY 05/29/23 10/22/24 History atorvastatin 40 mg tablet 40 mg PO DAILY 05/29/2310/04 History clonidine HCl 0.2 mg tablet 0.2 mg PO BID 05/29/23 History doxazosin 2 mg tablet 2 mg PO QHS 05/29/23 5 History fluticasone propionate 50 2 spray intranasal DAILY 10/22/24 History mcg/actuation nasal spray,suspension (Allergy Relief (fluticasone)) losartan 100 mg tablet 100 mg PO DAILY 05/29/23 History multivitamin-ferrous 1 tab PO DAILY 05/29/2310/04 History fumarate-folic acid 18 mg-400 mcg tablet (Certavite-Antioxidant) nabumetone 500 mg tablet 500 mg PO BID PRN pain 05/29 Unknown History quetiapine 150 mg tablet,extended 100 mg PO 0700 05/2910/30/24 History release 24 hr neomycin-bacitracn Zn-polymyx 3.5 1 applic topical TID PRN dry skin 11/05/23 10/22/24 History mg-400 unit-5,000 unit/gram top oint (Neosporin (kew-gxh-qmekk)) oxcarbazepine 600 mg tablet 600 mg PO BID 11/05/23 History clonazepam 0.5 mg tablet 0.25 mg PO TID 10/15/2410/05 History quetiapine 200 mg tablet 200 mg PO 1600 10/15/2410/04 History cephalexin 500 mg capsule 500 mg PO TID #15 caps 10/23 Unknown Rx oxycodone 5 mg tablet 5 mg PO Q6H PRN pain 7 days #20 10/23/24 10/29/24 Rx tabs Allergy/AdvReac Type Severity Reaction Status Date / Time risperidone (From Risperdal) Allergy ANXIETY Verified 10/23/24 06:26 Family History Mother Hyperlipidemia Father Hyperlipidemia Surgical History Hx of colonoscopy Hx of cystoscopy Hx of cystoscopy History of testicular surgery History of ankle surgery Social History household members: other details: Lives with others in residential home number of children: 0 Smoking Status: Never smoker alcohol intake: never substance use type: does not use Review of Systems (Anesthesia) ROS Narrative System reviewed and no additional complaints, except as documented. 10/30/24 1223 tate HERNANDEZ> Date _ Vinay Regalado Signature: Date CC: ~ Signed [facility]06-20-2025 Discharge summary [facility] Medical Records Department [address] [place] [address] Instructions for Home/Discharge Instructions 10/23/24 0849 MR#: [id number] Acct: [id number] Name: CHAN BURCIAGA Rep #:[id number] : 1980 44 From: Salvador Rush MD PCP: Dr. Ramiro Rosa MD Status:[place] [facility] Discharge Instructions Diet Discharge Diet: No restrictions DC O2, CPAP, BIPAP needs Home O2 Discharge instructions: No Dressing / Incision Discharge Activity: Return to Normal Activity and May Not Drive (while taking narcotic pain medications.) Dressing / Incision Call your doctor if you observe: Fever of 101 or Higher Follow Up Care Please Follow Up With: Salvador Rush MD When: Call [phone] for an appointment Test Results: Test results from this visit will be discussed in further detail at your follow- up appointment, if applicable. Discharge Plan Admission Primary Reason for Your Visit: laser stone and stent Attending Provider: Salvador Rush Primary Care Provider: Ramiro Rosa Instructions Print Language: Algerian Discharge Orders/Prescriptions Prescriptions: New cephalexin 500 mg capsule 500 mg PO TID Qty: 15 0RF oxycodone 5 mg tablet 5 mg PO Q6H PRN (Reason: pain) 7 Days Qty: 20 0RF Continued quetiapine 150 mg tablet extended release 24 hr 100 mg PO 0700 Patient Comments: TAKE 1 TABLET BY MOUTHEONCE [...] mg tablet 600 mg PO BID Neosporin (xql-bkh-zwudy) 3.5mg-400 unit- 5,000 unit/gram ointment 1 applic [...] 200 MG tablet 350 mg PO DAILY quetiapine 200 mg tablet 200 mg PO 1600 clonazepam 0.5 mg tablet 0.25 mg PO TID Referrals / Follow Up: Ramiro Rosa MD [Primary Care Provider] - Disposition Disposition (needs filled in before D/C Order can be placed): Home, Self Care 10/23/24 0849Salvador Rush MD CC: Dr. Ramiro Rosa MD ~ Signed [facility]06-20-2025 Consult note [facility] Medical Records Department [address] [place] [address] Anesthesia Postop Eval I 10/23/24 0858 MR#: [id number] Acct: [id number] Name: CHAN BURCIAGA Rep #:[id number] : 1980 44 From: Kirk LUNDBERG PCP: Dr. Ramiro Rosa MD Status:REG SDC Y Race: C Location: [place] [address] Anesthesia: Postop Eval I Current Vital Signs Temperature: 97 F Pulse Rate: 97 Blood Pressure: 113/78 Respiratory Rate: 16 Pulse Ox: 94 Assessment Airway patent: Yes Spontaneous unlabored respirations: Yes nausea: No Vomiting: No Anesthesia Complication: No Fluid Hydration Crystalloid volume administer (ml): 800 Total IV fluid infused: 800 Progress Note Anesthesia document: Postop Eval 1 completed: Yes 10/23/24 0859 LOTUS NOTES DEVELOPER> Date _ Kirk Askew LOTUS NOTES DEVELOPER Cosigner Signature: Date CC: ~ Signed [facility]06-20-2025 Procedure note [facility] Medical Records Department [address] [place] [address] Operative Report 10/23/24 0849 MR#: [id number] Acct: [id number] Name: CHAN BURCIAGA Rep #:[id number] : 1980 44 From: Salvador Rush MD PCP: Dr. Ramiro Rosa MD Status:[facility] Location: [place] [address] Operative Report (Standard) Operative Information Date of Procedure: 10/23/24 Pre-Operative Diagnosis: Kidney stones and ureteral stones large and multiple Post-Operative Diagnosis: The same Surgery/Procedure Performed: Cystoscopy left ureteroscopy laser lithotripsy of multiple stones in the ureter multiple stones in the kidney and left stent placement euclid operator: No Type of Anesthesia: General RN Documented Start/Stop Times: Operation Date: 10/23/24 07:30 Case Time Into Pre-Op 10/23/24 06:07 Out of Pre-Op 10/23/24 07:20 Anesthesia Start 10/23/24 07:25 Into Room 10/23/24 07:25 Procedure Start 10/23/24 07:38 Procedure End 10/23/24 08:45 Procedure Start Time: 07:38 Procedure Stop Time: 08:50 Select all DRAINS/GRAFTS/IMPLANTS that apply: Drains Drain details: 6 Salvadorean by 26 cm stent Estimated Blood Loss: None Specimen collected: No Description of surgery: Patient was taken back to the operating room after smooth induction of general anesthesia he was placed supine on the operating room table and then in dorsolithotomy position. The penis and testicleswere prepped and draped in usual sterile fashion went into the bladder with a 21 Salvadorean rigid cystourethroscope he had a large amount of bladder stones that were known and they can take care of thesetoday since he has obstructing stones working at work on first I then grabbed the stent and pulled the stent out to the meatus and then through the stent I put a wire up on the left side and then over the wire went in with a flexible ureteroscope I first encountered 2 very large stones in the ureter these were lasered completely using the thulium laser I then worked my way up the ureter and foundanother stone this was lasered again then up in the kidney I lasered a stone in the upper pole thatwas quite large stone in the midpole that was quite large and then multiple large stone in the lower pole I was not able to reach 1 stone in the lower pole this will have to be treated with shockwave lithotripsy in the future. I then worked my way down the ureter lasered some other stones as a wentdown the ureter I then went back in with a semirigid ureteroscope and lasered some distal stones fragments that were coming down the ureter and then I came out of the bladder drained the bladder and then we placed a stent up on the left side stent coiled in the kidney bladder in good position the bladder was drained plan will be to bring him back next week for stent removal and we will laser the bladder stones. Surgical Findings: Multiple stones in the ureter lasered completely multiple stones in the kidney with most of them lasered the lower pole stone in the left kidney could not be reached what to do shockwave lithotripsy Complications Complications: No Admit VTE Documentation VTE Present on Admission: No VTE Mechan Device Prophylaxis: SCD's VTE Pharm Prophylaxis ordered?: No 10/23/24 0852 Cosigner Signature (if applicable): CC: Dr. Ramiro Rosa MD; Dr. Salvador Rush MD~ Signed [facility]06-20-2025 Consult note Author [facility] Note Date/Time October 23, 2024 6:49 am [facility] Medical Records Department [address] [place] [address] Pre-Anesthesia Evaluation 10/23/24 0643 MR#: [id number] Acct: [id number] Name: CHAN BURCIAGA Rep #:[id number] : 1980 44 From: Vinay Maciel MD PCP: Dr. Ramiro Rosa MD Status:REG SDC Y Race: C Location: [facility] ASA Classification* ASA Classification ASA Classification: 2 Assessment & Plan Anesthesia* Anesthesia Assessment Anesthesia [...] anesthesia risk assessments. Anesthesia Type Anesthesia Type: General History Source History Obtained from:: Patient and Chart Anesthesia Focused Assessment* Temperature: 96.3 F Pulse Rate: 87 Blood Pressure: 136/92 Respiratory Rate: 16 Pulse Ox: 97 Oxygen Delivery Method: Room Air Airway Assessment Mouth opens: >3 cm Mallampati Score: IV Teeth Condition: Intact Neck Range of motion (ROM): Limited ROM Labs Anesthesia Preop lab: CBC WBC 9.1 [...] COAG Pre-Assessment Diagnosis/Proposed Procedure Planned Operative Procedure(s): LEFT URETEROSCOPY LASER STENT Anesthesia History Anesthesia History - event planning manager: Anesthesia History - event planning manager Hx Hospitalization Yes: 10/09/24 KIDNEY STONE 10/15/24 10:22 Any Problems With Anesthesia No 10/15/24 10:22 Cholinesterase deficiency No 10/15/24 10:22 You/Your Family Experience No 10/15/24 10:22 fever (hyperthermia) with Relationship Recent Exposure to Contagious No 10/23/24 06:29 Disease Does patient have nerve No 10/15/24 10:22 stimulator Patient instructed to have device shut off --Does patient have Pacemaker No 10/23/24 06:29 or ICD? When Was Last Pacemaker Check QUESTION #4 FULL TEXT: You/Your Family Experience fever (hyperthermia) with Anesthesia Last Oral Intake Last Oral intake: Last Oral Intake NPO since 05:00 10/23/24 06:29 Meds taken in AM with sips of Yes 10/23/24 06:29 water? Meds patient instructed to take am of surgery Any additional information?: Yes Meds taken in AM with sips of water?: Yes PONV PONV - event planning manager: PONV - event planning manager Female No 10/15/24 10:22 HX of Motion Sickness No 10/15/24 10:22 HX of N/V After Surgery No 10/15/24 10:22 Non-Smoker No 10/15/24 10:22 Duration of Surgery greater No 10/15/24 10:22 than 60 minutes Number of Risk Factors PONV Score Height & Weight Height & Weight: Anesthesia: Height & Weight Height 5 ft 5 in 10/23/24 06:29 Weight: 85.6 kg 10/23/24 06:29 Body Mass Index (BMI) 31.4 10/23/24 06:29 Respiratory Assessment Respiratory Assessment - event planning manager: Respiratory Tract Infection Hx - event planning manager Hx Respiratory Tract Infection No: COUGH 10/15/24 10:22 Any additional information?: Yes Hx Respiratory Tract Infection: No STOP Sleep Apnea STOP Sleep Apnea - event planning manager: STOP Sleep Apnea - event planning manager Hx Hypertension Yes: CONTROLLED WITH MED 10/15/24 [...] Tobacco Use History Tobacco Use History - event planning manager: Tobacco Use History - event planning manager Tobacco Use Non-smoker 03/02/21 15:59 Smoking Status Never smoker 10/15/24 10:22 Hx Tobacco Use No 10/15/24 10:22 Years Smoking Packs Smoked per Day Smoking Cessation Date was within the last 15 years Hx Smoking Cessation Date Hx Smoking Cessation Counseling Hematologic Medial History Hematologic Hx - event planning manager: 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 Specify any problems Hx of Preganancy in last 3 N/A 10/15/24 10:22 Months Nurse Filling Out Transfusion DSCHRIBER 10/15/24 10:22 & Questions: Date: 10/15/24 10/15/24 10:22 Time: 10:24 10/15/24 10:22 Patient unable to answer at this time (ie. confused, unrespo /Reproduction History /Reproductive History - event planning manager: /Reproductive Hx- event planning manager Hx Now No 10/15/24 10:22 Gestational Age (in weeks): EDC: Hx Hx Para Hx Section SAB No 10/15/24 10:22 Active Medications Active Medications: Current Medications Generic Name Dose Route Start Last Admin Trade Name Freq PRN Reason Stop Dose Admin Cefazolin Sodium 2 gm/ Sodium 110 mls @ 200 mls/hr 10/23/24 07:30 Chloride IV 10/23/24 08:02 INTRAOP ONE Lactated Ringer's 1,000 mls @ 15 mls/hr 10/23/24 06:15 10/23/24 06:28 IV 15 mls/hr .Q48H VIDHI Administration PFSH Medical History Anxiety Dietary restriction Lives in care home Arthritis Back pain Non-smoker Shortness of breath on exertion Intellectual disability Recurrent major depression in full remission Hyperlipidemia Essential hypertension Urinary tract infection with hematuria Home Medications ?Medication ?Instructions ?Recorded ?Last Taken ?Type fenofibrate nanocrystallized 145 145 mg PO DAILY 07/0810/23/24 History mg tablet folic acid 400 mcg tablet 0.4 mg PO DAILY@0800 9 10/22/24 History garlic 200 mg tablet 350 mg PO DAILY 07/08/18 History loratadine 10 mg capsule (Claritin 10 mg PO DAILY 09/2110/22/24 History Liqui-Gel) omega-3 fatty acids-fish oil 340 3 ea PO DAILY 10/22/24 History mg-1,000 mg capsule (Fish Oil) ammonium lactate 12 % topical cream 1 applic topical D AILY 05/29/23 10/22/24 History atorvastatin 40 mg tablet 40 mg PO DAILY 05/29/2310/04 History clonidine HCl 0.2 mg tablet 0.2 mg PO BID 05/29/23 History doxazosin 2 mg tablet 2 mg PO QHS 05/29/23 5 History fluticasone propionate 50 2 spray intranasal DAILY 10/22/24 History mcg/actuation nasal spray,suspension (Allergy Relief (fluticasone)) losartan 100 mg tablet 100 mg PO DAILY 05/29/23 History multivitamin-ferrous 1 tab PO DAILY 05/29/2310/04 History fumarate-folic acid 18 mg-400 mcg tablet (Certavite-Antioxidant) nabumetone 500 mg tablet 500 mg PO BID PRN pain 05/29 Unknown History quetiapine 150 mg tablet,extended 100 mg PO 0700 05/2910/23/24 History release 24 hr neomycin-bacitracn Zn-polymyx 3.5 1 applic topical TID PRN dry skin 11/05/23 10/22/24 History mg-400 unit-5,000 unit/gram top oint (Neosporin (voe-ism-stlkj)) oxcarbazepine 600 mg tablet 600 mg PO BID 11/05/23 History clonazepam 0.5 mg tablet 0.25 mg PO TID 10/15/2410/05 History quetiapine 200 mg tablet 200 mg PO 1600 10/15/2410/04 History Allergy/AdvReac Type Severity Reaction Status Date / Time risperidone (From Risperdal) Allergy ANXIETY Verified 10/23/24 06:26 Family History Mother Hyperlipidemia Father Hyperlipidemia Surgical History Hx of colonoscopy Hx of cystoscopy Hx of cystoscopy History of testicular surgery History of ankle surgery Social History household members: other details: Lives with others in residential home number of children: 0 Smoking Status: Never smoker alcohol intake: never substance use type: does not use Review of Systems (Anesthesia) ROS Narrative System reviewed and no additional complaints, except as documented. 10/23/24 0649 <Electronically signed by Vinay ybarra MD> Date _ Vinay Maciel MD Cosigner Signature: Date CC: ~ Signed [facility] Work Phone: 1(505) 343-259506-20-2025 Consult note [facility] Medical Records Department [address] [place] [address] Pre-Anesthesia Evaluation 10/23/24 0643 MR#: [id number] Acct: [id number] Name: CHAN BURCIAGA Rep #:[id number] : 1980 44 From: Vinay Maciel MD PCP: Dr. Ramiro Rosa MD Status:REG [facility] [place] Y Race: C Location: [facility] ASA Classification* ASA Classification ASA Classification: 2 Assessment & Plan Anesthesia* Anesthesia Assessment Anesthesia [...] anesthesia risk assessments. Anesthesia Type Anesthesia Type: General History Source History Obtained from:: Patient and Chart Anesthesia Focused Assessment* Temperature: 96.3 F Pulse Rate: 87 Blood Pressure: 136/92 Respiratory Rate: 16 Pulse Ox: 97 Oxygen Delivery Method: Room Air Airway Assessment Mouth opens: >3 cm Mallampati Score: IV Teeth Condition: Intact Neck Range of motion (ROM): Limited ROM Labs Anesthesia Preop lab: CBC WBC 9.1 [...] COAG Pre-Assessment Diagnosis/Proposed Procedure Planned Operative Procedure(s): LEFT URETEROSCOPY LASER STENT Anesthesia History Anesthesia History - event planning manager: Anesthesia History - event planning manager Hx Hospitalization Yes: 10/09/24 KIDNEY STONE 10/15/24 10:22 Any Problems With Anesthesia No 10/15/24 10:22 Cholinesterase deficiency No 10/15/24 10:22 You/Your Family Experience No 10/15/24 10:22 fever (hyperthermia) with Relationship Recent Exposure to Contagious No 10/23/24 06:29 Disease Does patient have nerve No 10/15/24 10:22 stimulator Patient instructed to have device shut off --Does patient have Pacemaker No 10/23/24 06:29 or ICD? When Was Last Pacemaker Check QUESTION #4 FULL TEXT: You/Your Family Experience fever (hyperthermia) with Anesthesia Last Oral Intake Last Oral intake: Last Oral Intake NPO since 05:00 10/23/24 06:29 Meds taken in AM with sips of Yes 10/23/24 06:29 water? Meds patient instructed to take am of surgery Any additional information?: Yes Meds taken in AM with sips of water?: Yes PONV PONV - event planning manager: PONV - event planning manager Female No 10/15/24 10:22 HX of Motion Sickness No 10/15/24 10:22 HX of N/V After Surgery No 10/15/24 10:22 Non-Smoker No 10/15/24 10:22 Duration of Surgery greater No 10/15/24 10:22 than 60 minutes Number of Risk Factors PONV Score Height & Weight Height & Weight: Anesthesia: Height & Weight Height 5 ft 5 in 10/23/24 06:29 Weight: 85.6 kg 10/23/24 06:29 Body Mass Index (BMI) 31.4 10/23/24 06:29 Respiratory Assessment Respiratory Assessment - event planning manager: Respiratory Tract Infection Hx - event planning manager Hx Respiratory Tract Infection No: COUGH 10/15/24 10:22 Any additional information?: Yes Hx Respiratory Tract Infection: No STOP Sleep Apnea STOP Sleep Apnea - event planning manager: STOP Sleep Apnea - event planning manager Hx Hypertension Yes: CONTROLLED WITH MED 10/15/24 [...] than talking or can be heard through closeddoors)? 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 Specify any problems Hx of Preganancy in last 3 N/A 10/15/24 10:22 Months Nurse Filling Out Transfusion DSCHRIBER 10/15/24 10:22 & Questions: Date: 10/15/24 10/15/24 10:22 Time: 10:24 10/15/24 10:22 Patient unable to answer at this time (ie. confused, unrespo /Reproduction History /Reproductive History - event planning manager: /Reproductive Hx- event planning manager Hx Now No 10/15/24 10:22 Gestational Age (in weeks): EDC: Hx Hx Para Hx Section SAB No 10/15/24 10:22 Active Medications Active Medications: Current Medications Generic Name Dose Route Start Last Admin Trade Name Freq PRN Reason Stop Dose Admin Cefazolin Sodium 2 gm/ Sodium 110 mls @ 200 mls/hr 10/23/24 07:30 Chloride IV 10/23/24 08:02 INTRAOP ONE Lactated Ringer's 1,000 mls @ 15 mls/hr 10/23/24 06:15 10/23/24 06:28 IV 15 mls/hr .Q48H VIDHI Administration PFSH Medical History Anxiety Dietary restriction Lives in care home Arthritis Back pain Non-smoker Shortness of breath on exertion Intellectual disability Recurrent major depression in full remission Hyperlipidemia Essential hypertension Urinary tract infection with hematuria Home Medications ?Medication ?Instructions ?Recorded ?Last Taken ?Type fenofibrate nanocrystallized 145 145 mg PO DAILY 07/0810/23/24 History mg tablet folic acid 400 mcg tablet 0.4 mg PO DAILY@0800 9 10/22/24 History garlic 200 mg tablet 350 mg PO DAILY 07/08/18 History loratadine 10 mg capsule (Claritin 10 mg PO DAILY 09/2110/22/24 History Liqui-Gel) omega-3 fatty acids-fish oil 340 3 ea PO DAILY 10/22/24 History mg-1,000 mg capsule (Fish Oil) ammonium lactate 12 % topical cream 1 applic topical D AILY 05/29/23 10/22/24 History atorvastatin 40 mg tablet 40 mg PO DAILY 05/29/2310/04 History clonidine HCl 0.2 mg tablet 0.2 mg PO BID 05/29/23 History doxazosin 2 mg tablet 2 mg PO QHS 05/29/23 5 History fluticasone propionate 50 2 spray intranasal DAILY 10/22/24 History mcg/actuation nasal spray,suspension (Allergy Relief (fluticasone)) losartan 100 mg tablet 100 mg PO DAILY 05/29/23 History multivitamin-ferrous 1 tab PO DAILY 05/29/2310/04 History fumarate-folic acid 18 mg-400 mcg tablet (Certavite-Antioxidant) nabumetone 500 mg tablet 500 mg PO BID PRN pain 05/29 Unknown History quetiapine 150 mg tablet,extended 100 mg PO 0705/2910/23/24 History release 24 hr neomycin-bacitracn Zn-polymyx 3.5 1 applic topical TID PRN dry skin 11/05/23 10/22/24 History mg-400 unit-5,000 unit/gram top oint (Neosporin (gfn-rtp-gujyv)) oxcarbazepine 600 mg tablet 600 mg PO BID 11/05/23 History clonazepam 0.5 mg tablet 0.25 mg PO TID 10/15/2410/05 History quetiapine 200 mg tablet 200 mg PO 1600 10/15/2410/04 History Allergy/AdvReac Type Severity Reaction Status Date / Time risperidone (From Risperdal) Allergy ANXIETY Verified 10/23/24 06:26 Family History Mother Hyperlipidemia Father Hyperlipidemia Surgical History Hx of colonoscopy Hx of cystoscopy Hx of cystoscopy History of testicular surgery History of ankle surgery Social History household members: other details: Lives with others in residential home number of children: 0 Smoking Status: Never smoker alcohol intake: never substance use type: does not use Review of Systems (Anesthesia) ROS Narrative System reviewed and no additional complaints, except as documented. 10/23/24 0649 tate HERNANDEZ> Date _ Vinay Maciel MD Cosigner Signature: Date CC: ~ Signed [facility]06-12-2025 Evaluation + Plan note* Assessment & Plan Note - Ramiro Rosa MD - 10/15/2024 12:38 PM EDTAssociated Problem(s): Recurrent major depressive disorder, in full remission (HCC) Remission, continue Trileptal 600 mg and Seroquel 100 mg daily and clonazepam 0.25 mg 3 times a day [facility]06-12-2025 Miscellaneous Notes* Assessment & Plan Note - Ramiro Rosa MD - 10/15/2024 12:38 PM EDTAssociated Problem(s): Recurrent major depressive disorder, in full remission (HCC) Remission, continue Trileptal 600 mg and Seroquel 100 mg daily and clonazepam 0.25 mg 3 times a day * Assessment & Plan Note - Ramiro Rosa MD - 10/15/2024 12:37 PM EDT Associated Problem(s): Hyperlipidemia LDL goal <100 Controlled, continue atorvastatin 40 mg daily and fenofibrate 145 mg daily * Assessment & Plan Note - Ramiro Rosa MD - 10/15/2024 12:37 PM EDT Associated Problem(s): Calculus of kidney Currently has a stent in place is waiting for surgery to break up the stone. Follow-up with urologyas scheduled. * Assessment & Plan Note - Ramiro Rosa MD - 10/15/2024 12:37 PM EDT Associated Problem(s): Essential hypertension Controlled, continue clonidine 0.2 mg, losartan 100 mg, documented in this encounterSF[facility] [id number] Evaluation + Plan note* Assessment & Plan Note - Ramiro Rosa MD - 10/15/2024 12:37 PM EDT Associated Problem(s): Hyperlipidemia LDL goal <100 Controlled, continue atorvastatin 40 mg daily and fenofibrate 145 mg daily [id number] Evaluation + Plan note* Assessment & Plan Note - Ramiro Rosa MD - 10/15/2024 12:37 PM EDTAssociated Problem(s): Calculus of kidney Currently has a stent in place is waiting for surgery to break up the stone. Follow-up with urologyas scheduled. [id number] Evaluation + Plan note* Assessment & Plan Note - Ramiro Rosa MD - 10/15/2024 12:37 PM EDTAssociated Problem(s): Essential hypertension Controlled, continue clonidine 0.2 mg, losartan 100 mg, [id number] History of Present illness Narrative* Ramiro Rosa MD - 10/15/2024 11:45 AM EDT Images from the original note were not included. 10/15/2024 Chan Burciaga (: 1980) is a 43 y.o. male , Established patient, here for evaluation of thefollowing chief complaint(s): Follow-up (6m follow up, medication check, recent ED visit for kidney stone) ASSESSMENT/PLAN: 1. Essential hypertension Assessment & Plan: Controlled, continue clonidine 0.2 mg, losartan 100 mg, 2. Calculus of kidney Assessment & Plan: Currently has a stent in place is waiting for surgery to break up the stone. Follow-up with urologyas scheduled. 3. Hyperlipidemia LDL goal <100 Assessment & Plan: Controlled, continue atorvastatin 40 mg daily and fenofibrate 145 mg daily 4. Recurrent major depressive disorder, in full remission (HCC) Assessment & Plan: Remission, continue Trileptal 600 mg and Seroquel 100 mg daily and clonazepam 0.25 mg 3 times a day Follow up in about 6 months (around 04/16/2025). SUBJECTIVE/OBJECTIVE: HPI -Chan comes in today for a 6-month follow-up on his hypertension, hyperlipidemia and depression and these all seem to be well-controlled at this time. He recently had another kidney stone he had a stent placed and he is now waiting to have surgery tobreak up the stone. Review of Systems Constitutional: [...] MD 10/15/2024 12:39 PM documented in this [facility]06-06-2025 Consult note [facility] Medical Records Department [address] [place] [address] Pre-Anesthesia Evaluation 10/09/24 1214 MR#: [id number] Acct: [id number] Name: CHAN BURCIAGA Rep #:[id number] : 1980 43 From: Sandro Julian MD [...] stent placement. Anesthesia History Anesthesia History - event planning manager: Anesthesia History - event planning manager Hx Hospitalization No 12/16/23 15:36 Any Problems [...] take am of surgery PONV PONV - event planning manager: PONV - event planning manager Female HX of Motion Sickness HX of N/V After Surgery Non-Smoker Duration of Surgery greater than 60 minutes Number of Risk Factors PONV Score Height & Weight Height & Weight: Anesthesia: Height & Weight Height 5 ft 4.96 in 10/09/24 10:19 Weight: 86 kg 10/09/24 10:19 Body Mass Index (BMI) 31.6 10/09/24 10:19 Respiratory Assessment Respiratory Assessment - event planning manager: Respiratory Tract Infection Hx - event planning manager Hx Respiratory Tract Infection No 12/16/23 15:36 STOP Sleep Apnea STOP Sleep Apnea - event planning manager: STOP Sleep Apnea - event planning manager Hx Hypertension Yes: CONTROLLED WITH MED 10/08/24 [...] than talking or can be heard through closeddoors)? 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 Hx of Blood Transfusion No 10/08/24 21:22 [...] confused, unrespo /Reproduction History /Reproductive History - event planning manager: /Reproductive Hx- event planning manager Hx Now Gestational Age (in weeks): EDC: [...] 2 spray 10/09/24 10:00 Fluticasone 0.05% 1 [place] Nasal.Sry NASAL DAILY VIDHI Guaifenesin 20 ml 10/08/24 21:21 10/09/24 03:46 Guaifenesin 10 Ml Udc (200mg/10ml) PO 20 ml Q4H PRN PRN Administration COUGH Hydralazine HCl 10 mg 10/08/24 21:21 Hydralazine 20 Mg/Ml Vial IV Q4H PRN PRN SBP > 160 Protocol Sodium Chloride 250 mls @ 15 mls/hr 10/08/24 21:42 IV .S05U20M PRN Saline Flush Sodium Chloride 250 mls @ 15 mls/hr 10/08/24 21:42 IV .[id number] PRN Additional IVPB Infusion Cefazolin Sodium 2 [...] Losartan Potassium 100 Mg Tablet PO DAILY [facility] Protocol Melatonin 3 mg 10/08/24 21:21 Melatonin [...] SALINE FLUSH PFSH Medical History Lives in care home Arthritis Back pain Non-smoker Shortness of breath [...] History mg-400 unit-5,000 unit/gram top oint (Neosporin (zdh-qsc-sckef)) oxcarbazepine 600 mg tablet 600 mg PO [...] additional complaints, except as documented. 10/09/24 1214 > Date _ Sandro Julian MD Cosigner Signature: Date CC: ~ Signed [facility]06-06-2025 Consult note [facility] Medical Records Department [address] [place] [address] Anesthesia Postop Eval II 10/09/24 1338 MR#: [id number] Acct: [id number] Name: CHAN BURCIAGA Rep #:[id number] : 1980 43 From: Sandro Julian MD PCP: Dr. Ramiro Rosa MD Status:ADM IN Y Race: C Location: [place] [address] Anesthesia Postop Eval I Sum Postop Eval Completion status Anesthesia document: Postop Eval 1 completed: Yes Anesthesia Postop Eval I Summary Anesthesia Postop Eval I Summary: Anesthesia Postop Eval I: Assessment Summary Airway patent Yes 10/09/24 13:03 LOTUS NOTES DEVELOPER.SOBR Spontaneous unlabored Yes 10/09/24 13:03 LOTUS NOTES DEVELOPER.SOBR respirations Mental status Awake,Calm 10/09/24 13:03 LOTUS NOTES DEVELOPER.SOBR nausea No 10/09/24 13:03 LOTUS NOTES DEVELOPER.SOBR Vomiting No 10/09/24 13:03 LOTUS NOTES DEVELOPER.SOBR Anesthesia Postop Eval I: Fluid Summary Crystalloid volume administer 500 10/09/24 13:03 LOTUS NOTES DEVELOPER.SOBR (ml) Colloids volume administered ( ml) Blood Product volume administered (ml) Total IV fluid infused 500 10/09/24 13:03 LOTUS NOTES DEVELOPER.SOBR Anesthesia Postop Eval I: Summary Notes Anesthesia Complication No 10/09/24 13:03 LOTUS NOTES DEVELOPER.SOBR Anesthesia Complication Comment: Post-operative progress note Anesthesia: Postop Eval II Evaluation Mental status: Awake Pain Level: 0 nausea: No Vomiting: No 10/09/24 1338 > Date _ Sandro Regalado Signature: Date CC: ~ Signed [facility]06-06-2025 Discharge summary [facility] Medical Records Department [address] [place] [address] Discharge Summary 10/09/24 1608 MR#: [id number] Acct: [id number] Name: CHAN BURCIAGA Rep #:[id number] : 1980 43 From: Austin avalos MD PCP: Dr. 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 ED on 10/08/24 with history of [...] after morphine but discussion with patient and care home staff he rates his discomfort previously potentially 7-8 out of 10 in severity and morein the back/flank. Workup in the ED included T97.6, heart rate 101, BP 141/94, respiratory rate 16,percent room air with most recent repeat vital [...] ureteral stone?43-year-old male who resides in a care home secondary to intellectual debilities presents to the hospital with abdominal pain and leftflank pain. He was to have a left ureteral stone. The pain going on for about 5 days so urology was consulted and had a cystoscopy today witha left ureteral stent. He will need to follow-up as an outpatient with urology for definitive laserlithotripsy. He did tolerate the procedure well and [...] % (Auto) 68.7, Lymph % (Auto) 19.2, Prentiss% (Auto) 8.0, Eos % (Auto) 2.9, Baso [...] Clarity Cloudy, Urine pH 7.0, Ur Specific [place] 1.010, Urine Protein 30 H, Urine Glucose [...] % (Auto) 53.3, Lymph % (Auto) 31.8, Prentiss% (Auto) 8.4, Eos % (Auto) 5.5 H, [...] 3.9, Globulin 2.2, Albumin/ Globulin Ratio 1.8 Radiography Diagnostic Testing: Radiology Impression Abdomen/Pelvis CT 10/08/24 17:09 IMPRESSION: 9 mm obstructive stone at the distal left ureter with associated upstream moderate hydroureteronephrosis. Multiple urinary bladder stones are noted. Mild thickening of the urinary bladder wall which may reflect cystitis versus partial nondistention; consider correlation with urinalysis. Enlarged prostate with abutment onto the urinary bladder wall. Reading Location: [facility] D/C Instructions Discharge Diet: Low fat [...] risk with narcotics therefore I do recommend wwdy-teo-svrhics stool softeners while taking narcotics. Discharge Orders/Prescriptions [...] mg tablet 600 mg PO BID Neosporin (ovh-swx-dbnzs) 3.5mg-400 unit- 5,000 unit/gram ointment 1 applic [...] Self Care Charges/Coding Visit Charges Inpatient E&M: 08729 Disch Hosp >30min 10/09/24 1615 Cosigner Signature (if applicable): CC: Dr. Ramiro Rosa MD; Dr. Austin Mares MD~ Signed [facility]06-06-2025 [facility] Medical Records Department [address] [place] [address] Discharge Summary 10/09/24 1608 MR#: [id number] Acct: [id number] Name: CHAN BURCIAGA Rep #: [id number] : 1980 43 From: Austin Mares MD PCP: Dr. Ramiro Rosa MD Status:ADM IN Location: [place] [address] Providers Date of Admission: 10/08/24 Primary Care [...] 3.5 mg-400 unit-5,000 unit/gram top oint (Neosporin (akn-fcf-hbfqq)) 1 applic topical TID PRN dry skin [...] M w/ intellectual debilities living in a care home w/ PMHx: CKD stage II per GFR trending, HTN, HLD, Anxiety and Depression/Mood disorder, Obesity who presents to the [facility] ED on 10/08/24 with history of [...] after morphine but discussion with patient and care home staff he rates his discomfort previously potentially [...] ureteral stone???43-year-old male who resides in a care home secondary to intellectual debilities presents to the [...] from an infectious standpoin (more content not included)...[facility] 10-09-2024 Discharge summary [facility] Medical Records Department [address] [place] [address] Instructions for Home/Discharge Instructions 10/09/24 1545 MR#: [id number] Acct: [id number] Name: CHAN BURCIAGA Rep #:[id number] : 1980 43 From: Austin avalos MD [...] risk with narcotics therefore I do recommend snjb-ukr-ezxpmbg stool softeners while taking narcotics. Discharge Orders/Prescriptions [...] mg tablet 600 mg PO BID Neosporin (nqx-fbs-wpowz) 3.5mg-400 unit- 5,000 unit/gram ointment 1 applic [...] can be placed): Home, Self Care 10/09/24 1553Austin Mares MD CC: Dr. Yamileth Aguirre MD; Dr. Ramiro Rosa MD; Dr. Salvador Rush MD ~ Signed [facility]06-06-2025 Consult note Author Sandro jaimie [facility] Note Date/Time October 09, 2024 4:25p [facility] Medical Records Department [address] [place] [address] Anesthesia Postop Eval II 10/09/24 1338 MR#: [id number] Acct: [id number] Name: CHAN BURCIAGA Rep #:[id number] : 1980 43 From: Sandro Julian MD PCP: Dr. Ramiro Rosa MD Status:ADM IN Y Race: C Location: MS3 MS308 -1 Anesthesia Postop Eval I Sum Postop Eval Completion status Anesthesia document: Postop Eval 1 completed: Yes Anesthesia Postop Eval I Summary Anesthesia Postop Eval I Summary: Anesthesia Postop Eval I: Assessment Summary Airway patent Yes 10/09/24 13:03 LOTUS NOTES DEVELOPER.SOBR Spontaneous unlabored Yes 10/09/24 13:03 LOTUS NOTES DEVELOPER.SOBR respirations Mental status Awake,Calm 10/09/24 13:03 LOTUS NOTES DEVELOPER.SOBR nausea No 10/09/24 13:03 LOTUS NOTES DEVELOPER.SOBR Vomiting No 10/09/24 13:03 LOTUS NOTES DEVELOPER.SOBR Anesthesia Postop Eval I: Fluid Summary Crystalloid volume administer 500 10/09/24 13:03 LOTUS NOTES DEVELOPER.SOBR (ml) Colloids volume administered ( ml) Blood Product volume administered (ml) Total IV fluid infused 500 10/09/24 13:03 LOTUS NOTES DEVELOPER.SOBR Anesthesia Postop Eval I: Summary Notes Anesthesia Complication No 10/09/24 13:03 LOTUS NOTES DEVELOPER.SOBR Anesthesia Complication Comment: Post-operative progress note Anesthesia: Postop Eval II Evaluation Mental status: Awake Pain Level: 0 nausea: No Vomiting: No 10/09/24 2858 <Electronically signed by Sandro Julian MD > Date _ Sandro Julian MD Cosigner Signature: Date CC: ~ Signed [facility] Work Phone: 1(280) 631-578206-06-2025 Consult note Author Jeevan [facility] Note Date/Time October 09, 2024 1:03p [facility] Medical Records Department [address] [place] [address] Anesthesia Postop Eval I 10/09/24 1302 MR#: [id number] Acct: [id number] Name: CHAN BURCIAGA Rep #:[id number] : 1980 43 From: Jeevan LUNDBERG PCP: Dr. Ramiro Rosa MD Status:ADM IN Y Race: C Location: MS3 MS308 -1 Anesthesia: Postop Eval I Current Vital [...] Jeevan Madden CRNA> Date _ Jeevan Madden LOTUS NOTES DEVELOPER Cosigner Signature: Date CC: ~ Signed [facility] Work Phone: 1(930) 185-241106-06-2025 Consult note Author Sandro Julian [facility] Note Date/Time October 09, 2024 4:25p m [facility] Medical Records Department [address] [place] [address] Pre-Anesthesia Evaluation 10/09/24 1214 MR#: [id number] Acct: [id number] Name: CHAN BURCIAGA Rep #:[id number] : 1980 43 From: Sandro Julian MD PCP: Dr. Ramiro Rosa MD Status:ADM IN Y Race: C Location: [place] [address] ASA Classification* ASA Classification ASA Classification: 3 [...] stent placement. Anesthesia History Anesthesia History - event planning manager: Anesthesia History - event planning manager Hx Hospitalization No 12/16/23 15:36 Any Problems [...] take am of surgery PONV PONV - event planning manager: PONV - event planning manager Female HX of Motion Sickness HX of N/V After Surgery Non-Smoker Duration of Surgery greater than 60 minutes Number of Risk Factors PONV Score Height & Weight Height & Weight: Anesthesia: Height & Weight Height 5 ft 4.96 in 10/09/24 10:19 Weight: 86 kg 10/09/24 10:19 Body Mass Index (BMI) 31.6 10/09/24 10:19 Respiratory Assessment Respiratory Assessment - event planning manager: Respiratory Tract Infection Hx - event planning manager Hx Respiratory Tract Infection No 12/16/23 15:36 STOP Sleep Apnea STOP Sleep Apnea - event planning manager: STOP Sleep Apnea - event planning manager Hx Hypertension Yes: CONTROLLED WITH MED 10/08/24 [...] 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 Specify any problems Hx of Preganancy in last 3 N/A 10/08/24 21:22 Months Nurse Filling Out Transfusion [email or web address] 10/08/24 21:22 & Questions: Date: 10/08/24 10/08/24 21:22 Time: 10/08/24 21:22 Patient unable to answer at this time (ie. confused, unrespo /Reproduction History /Reproductive History - event planning manager: /Reproductive Hx- event planning manager Hx Now Gestational Age (in weeks): EDC: Hx Hx Para Hx Section SAB No 12/16/23 15:36 Active Medications Active Medications: Current Medications Generic Name Dose Route Start Last Admin Trade Name Freq PRN Reason Stop Dose Admin Acetaminophen 650 mg 10/08/24 21:21 10/08/24 22:02 Acetaminophen 325 Mg Tablet PO 650 mg Q4H PRN PRN Administration Fever, pain 1-02/12 Al Hydroxide/Mg Hydroxide 30 ml 10/08/24 21:21 [...] 2 spray 10/09/24 10:00 Fluticasone 0.05% 1 [place] Nasal.Sry NASAL DAILY VIDHI Guaifenesin 20 ml 10/08/24 21:21 10/09/24 03:46 Guaifenesin 10 Ml Udc (200mg/10ml) PO 20 ml Q4H PRN PRN Administration COUGH Hydralazine HCl 10 mg 10/08/24 21:21 Hydralazine 20 Mg/Ml Vial IV Q4H PRN PRN SBP > 160 Protocol Sodium Chloride 250 mls @ 15 mls/hr 10/08/24 21:42 IV .G88U43M PRN Saline Flush Sodium Chloride 250 mls @ 15 mls/hr 10/08/24 21:42 IV .U09O70B PRN Additional IVPB Infusion Cefazolin Sodium 2 gm/ Sodium 110 mls @ 150 mls/hr 10/09/24 12:04 Chloride IV 10/09/24 12:47 X1 ONE Ketorolac Tromethamine 15 mg 10/08/24 21:21 Ketorolac 15 Mg/Ml Vial IV 10/13/24 21:21 Q6H PRN PRN Pain Score 1-10 Lactic Acid 1 applic 10/09/24 10:00 Ammonium Lactate 225 Gm Bottle TOPICAL DAILY [facility] Loratadine 10 mg 10/09/24 10:00 Loratadine 10 Mg Tablet PO DAILY [facility] Losartan Potassium 100 mg 10/09/24 10:00 Losartan Potassium 100 Mg Tablet PO DAILY [facility] Protocol Melatonin 3 mg 10/08/24 21:21 Melatonin [...] 16:00 Quetiapine 100 Mg Tablet PO 1600 [facility] Quetiapine Fumarate 50 mg 10/09/24 16:00 Quetiapine 25 Mg Tablet PO 1600 [facility] Senna/Docusate Sodium 2 tablet 10/08/24 21:21 Senna/Docusate Sodium 1 Tablet PO BID PRN PRN Constipation Sodium Chloride 10 - 40 ml 10/08/24 21:42 10/09/24 03:45 0.9% Saline Lock 10 Ml Syringe IV 10 ml UD PRN Administration SALINE FLUSH [facility] Medical History Lives in care home Arthritis Back pain Non-smoker Shortness of breath [...] History mg-400 unit-5,000 unit/gram top oint (Neosporin (tnf-aaw-maxcm)) oxcarbazepine 600 mg tablet 600 mg PO [...] MD Cosigner Signature: Date CC: ~ Signed [facility] Work Phone: 1(460) 723-818306-06-2025 Consult note Author Salvador Rush [facility] Note Date/Time October 09, 2024 12:10 pm [facility] Medical Records Department [address] [place] [address] Consultation - Urology 10/09/24 1139 MR#: [id number] Acct: [id number] Name: CHAN BURCIAGA Rep #:[id number] : 1980 43 From: Salvador Rush MD PCP: Dr. Ramiro Rosa MD Status:ADM IN Location: MS3 QL967-2 HPI Consult Data Date of Consult: 10/09/24 [...] findings a separate setting once everything stable. [facility] Medical History Lives in care home Arthritis Back pain Non-smoker Shortness of breath [...] History mg-400 unit-5,000 unit/gram top oint (Neosporin (gih-xgn-gtasx)) oxcarbazepine 600 mg tablet 600 mg PO [...] % (Auto) 68.7, Lymph % (Auto) 19.2, Prentiss% (Auto) 8.0, Eos % (Auto) 2.9, Baso [...] Clarity Cloudy, Urine pH 7.0, Ur Specific [place] 1.010, Urine Protein 30 H, Urine Glucose [...] % (Auto) 53.3, Lymph % (Auto) 31.8, Prentiss% (Auto) 8.4, Eos % (Auto) 5.5 H, [...] onto the urinary bladder wall. Reading Location: [facility] 10/09/24 1140 <Electronically signed by Salvador [...] cc: Dr. Ramiro Rosa MD ~* Signed [facility] Work Phone: [phone]) 180-524506-06-2025 Consult note [facility] Medical Records Department [address] [place] [address] Anesthesia Postop Eval I 10/09/24 1302 MR#: [id number] Acct: [id number] Name: CHAN BURCIAGA Rep #:[id number] : 1980 43 From: Jeevan LUNDBERG PCP: Dr. Ramiro Rosa MD Status:ADM IN Y Race: C Location: [place] [address] Anesthesia: Postop Eval I Current Vital Signs [...] Postop Eval 1 completed: Yes 10/09/24 1303 LOTUS NOTES DEVELOPER> Date _ Jeevan [place] LOTUS NOTES DEVELOPER Cosigner Signature: Date CC: ~ Signed [facility]06-06-2025 Procedure note [facility] Medical Records Department [address] [place] [address] Operative Report 10/09/24 1246 MR#: [id number] Acct: [id number] Name: CHAN BURCIAGA Rep #:[id number] : 1980 43 From: Salvador Rush MD PCP: Dr. Ramiro Rosa MD Status:ADM IN [facility] (Standard) Operative Information Date of Procedure: 10/09/24 Pre-Operative Diagnosis: Left obstructing kidney stone Post-Operative Diagnosis: Same Surgery/Procedure Performed: Cystoscopy and left stent placement euclid operator: No Type of Anesthesia: General RN Documented [...] One of the bladder with a 21 Salvadorean rigid cystourethroscope found that he had a [...] for laser lithotripsy in the future. Patient roland was a reversed thing back to the [...] Rosa MD; Dr. Salvador Rush MD~ Signed [facility]06-06-2025 Consult note [facility] Medical Records Department [address] [place] [address] Consultation - Urology 10/09/24 1139 MR#: [id number] Acct: [id number] Name: CHAN BURCIAGA Rep #:[id number] : 1980 43 From: Salvador Rush MD PCP: Dr. Ramiro Rosa MD Status:ADM IN Location: [facility] [place]-8 HPI Consult Data Date of Consult: 10/09/24 [...] findings a separate setting once everything stable. [facility] Medical History Lives in care home Arthritis Back pain Non-smoker Shortness of breath [...] History mg-400 unit-5,000 unit/gram top oint (Neosporin (pmq-dbt-fwjtc)) oxcarbazepine 600 mg tablet 600 mg PO [...] % (Auto) 68.7, Lymph % (Auto) 19.2, Prentiss% (Auto) 8.0, Eos % (Auto) 2.9, Baso [...] Clarity Cloudy, Urine pH 7.0, Ur Specific [place] 1.010, Urine Protein 30 H, Urine Glucose [...] % (Auto) 53.3, Lymph % (Auto) 31.8, Prentiss% (Auto) 8.4, Eos % (Auto) 5.5 H, [...] onto the urinary bladder wall. Reading Location: [facility] 10/09/24 1140 Cosigner Signature (if applicable): [...] cc: Dr. Ramiro Rosa MD ~* Signed [facility]06-06-2025 Discharge summary Author Brad Goins [facility] Note Date/Time October 08, 2024 10:07 pm [facility] Medical Records Department [address] [place] [address] Emergency Department Summary 10/08/24 MR#: [id number] Acct: [id number] Name: CHAN BURCIAGA Rep #:[id number] : 1980 43 From: Brad Goins MD PCP: Dr. Ramiro Rosa MD Status:ADM IN Location: [place] [address]-1 HPI HPI - GI History of Present [...] or Hematuria Narrative Narrative: 43-year-old male from care home. History of hypertension kidney stones. Said the [...] No PFSH PFSH Medical History Lives in care home Arthritis Back pain Non-smoker Shortness of breath [...] History mg-400 unit-5,000 unit/gram top oint (Neosporin (pgj-pft-uwxch)) oxcarbazepine 600 mg tablet 600 mg PO [...] % (Auto) 68.7 Lymph % (Auto) 19.2 Prentiss % (Auto) 8.0 Eos % (Auto) 2.9 [...] Clarity Cloudy Urine pH 7.0 Ur Specific [place]o 1.010 Urine Protein 30 H Urine Glucose [...] onto the urinary bladder wall. Reading Location: [facility] Discharge Plan Triage Chief Complaint: Abd [...] mg tablet 600 mg PO BID Neosporin (fec-zsj-kbvhh) 3.5mg-400 unit- 5,000 unit/gram ointment 1 applic [...] MD [Primary Care Provider] - Print Language: Algerian What to do if you have Problems For any increased pain, shortness of breath, bleeding, nausea or vomiting, chestpain, or any unexpected problems, contact your Primary Care Provider. Call [facility] ([phone]) or report to the closest Emergency Room. Call 911 if necessary. 10/08/242206 <Electronically signed by Brad Goins MD> Cosigner Signature (if applicable): CC: Dr. Ramiro Rosa MD ~ Signed [facility] Work Phone: 1(673) 134-554506-05-2025 History and physical note Author Yamileth Aguirre [facility] Note Date/Time October 08, 2024 8:46p m [facility] Medical Records Department [address] [place] [address] H&P Exam - Hospitalist 10/08/242001 MR#: [id number] Acct: [id number] Name: CHAN BURCIAGA Rep #:[id number] : 1980 43 From: Yamileth Aguirre MD PCP: Dr. Ramiro Rosa MD Status:ADM IN Location: [facility] SH555-8 HPI - General General Date of Admission: 10/08/24 Date of Service: 10/08/24 Chief Complaint: Abdominal pain, flank pain. HPI Narrative The patient is a 43 y/o M w/ intellectual debilities living in a care home w/ PMHx: CKD stage II per GFR trending, HTN, HLD, Anxiety and Depression/Mood disorder, Obesity who presents to the [facility] ED on 10/08/24 with history of [...] after morphine but discussion with patient and care home staff he rates his discomfort previously potentially [...] IV x 1. EDdiscussed case with urology. [facility] Medical History Lives in care home Arthritis Back pain Non-smoker Shortness of breath [...] History mg-400 unit-5,000 unit/gram top oint (Neosporin (qxw-ras-taoct)) oxcarbazepine 600 mg tablet 600 mg PO [...] alert, oriented to self, place, recent vents, care home staff present, remains cooperative, seated upright in [...] currently is baseline intact per discussion with care home staff, pupils equally reactive to light and [...] % (Auto) 68.7, Lymph % (Auto) 19.2, Prentiss% (Auto) 8.0, Eos % (Auto) 2.9, Baso [...] Clarity Cloudy, Urine pH 7.0, Ur Specific [place] 1.010, Urine Protein 30 H, Urine Glucose [...] onto the urinary bladder wall. Reading Location: [facility] Assessment & Plan Assessment/Plan (1) Kidney stone on left side: PLAN: Plan The patient is a 43 y/o M w/ intellectual debilities living in a care home w/ PMHx: CKD stage II per GFR trending, HTN, HLD, Anxiety and Depression/Mood disorder, Obesity who presents to the [facility] ED on 10/08/24 with history of [...] STATUS: Full Code per discussion with the care home staff. Charges/Coding Visit Charges Inpatient E&M: 42109 Init Hosp L3 10/08/242045 <Electronically signed by Yamileth Aguirre MD> Cosigner Signature (if applicable): CC: Dr. Yamileth Aguirre MD; Dr. Ramiro Rosa MD~ Signed [facility] Work Phone: 1(455) 163-698906-05-2025 Discharge summary [facility] Medical Records Department [address] [place] [address] Emergency Department Summary 10/08/24 MR#: [id number] Acct: [id number] Name: CHAN BURCIAGA Rep #:[id number] : 1980 43 From: Brad Goins MD PCP: Dr. Ramiro Rosa MD Status:ADM IN Location: MS3 DI405-2 HPI HPI - GI History of Present [...] or Hematuria Narrative Narrative: 43-year-old male from care home. History of hypertension kidney stones. Said the [...] Prior similar symptoms: No Recent [facility] Medical History Lives in care home Arthritis Back pain Non-smoker Shortness of breath [...] History mg-400 unit-5,000 unit/gram top oint (Neosporin (acd-gwk-rjfel)) oxcarbazepine 600 mg tablet 600 mg PO [...] % (Auto) 68.7 Lymph % (Auto) 19.2 Prentiss % (Auto) 8.0 Eos % (Auto) 2.9 [...] Clarity Cloudy Urine pH 7.0 Ur Specific [place]canso 1.010 Urine Protein 30 H Urine Glucose [...] onto the urinary bladder wall. Reading Location: [facility] Discharge Plan Triage Chief Complaint: Abd [...] mg tablet 600 mg PO BID Neosporin (edr-nun-nnttv) 3.5mg-400 unit- 5,000 unit/gram ointment 1 applic [...] MD [Primary Care Provider] - Print Language: Algerian What to do if you have Problems For any increased pain, shortness of breath, bleeding, nausea or vomiting, chestpain, or any unexpected problems, contact your Primary Care Provider. Call [facility] ([phone]) or report tothe closest Emergency Room. Call 911 if necessary. 10/08/242206 Cosigner Signature (if applicable): CC: Dr. Ramiro Rosa MD ~ Signed [facility]06-05-2025 Evaluation note* Diagnosis Onset Date Resolution Status Admit Date Abdominal pain acute October 08, 2024 8:03pm History of hypertension acute J 2024 8:03pm Intractable abdominal pain acute October 08, 2024 8:03pm Kidney stone on left side acute October 08, 2024 8:03pm [facility] Work Phone: [phone]) 324-787006-05-2025 History and physical note [facility] Medical Records Department [address] [place] [address] H&P Exam - Hospitalist 10/08/242001 MR#: [id number] Acct: [id number] Name: CHAN BURCIAGA Rep #:[id number] : 1980 43 From: Yamileth Aguirre MD PCP: Dr. Ramiro Rosa MD Status:ADM [facility] - General General Date of Admission: 10/08/24 Date of Service: 10/08/24 Chief Complaint: Abdominal pain, flank pain. HPI Narrative The patient is a 43 y/o M w/ intellectual debilities living in a care home w/ PMHx: CKD stage II per GFR trending, HTN, HLD, Anxiety and Depression/Mood disorder, Obesity who presents to the [facility] ED on 10/08/24 with history of [...] after morphine but discussion with patient and care home staff he rates his discomfort previously potentially [...] IV x 1. EDdiscussed case with urology. [facility] Medical History Lives in care home Arthritis Back pain Non-smoker Shortness of breath [...] History mg-400 unit-5,000 unit/gram top oint (Neosporin (gfh-vua-vbkqd)) oxcarbazepine 600 mg tablet 600 mg PO [...] alert, oriented to self, place, recent vents, care home staff present, remains cooperative, seated upright in [...] currently is baseline intact per discussion with care home staff, pupils equally reactive to light andaccommodation, [...] % (Auto) 68.7, Lymph % (Auto) 19.2, Prentiss% (Auto) 8.0, Eos % (Auto) 2.9, Baso [...] Clarity Cloudy, Urine pH 7.0, Ur Specific [place]cans[place] 1.010, Urine Protein 30 H, Urine Glucose [...] onto the urinary bladder wall. Reading Location: [facility] Assessment & Plan Assessment/Plan (1) Kidney stone on left side: PLAN: Plan The patient is a 43 y/o M w/ intellectual debilities living in a care home w/ PMHx: CKD stage II per GFR trending, HTN, HLD, Anxiety and Depression/Mood disorder, Obesity who presents to the [facility] ED on 10/08/24 with history of [...] STATUS: Full Code per discussion with the care home staff. Charges/Coding Visit Charges Inpatient E&M: 89988 Init Hosp L3 10/08/242045 Cosigner Signature (if applicable): CC: Dr. Yamileth Aguirre MD; Dr. Ramiro Rosa MD~ Signed [facility]06-05-2025 Radiology Diagnostic study note [facility] Imaging Services [address] [place] [address] Abdomen/Pelvis W IV Cont ONLY MR#: [id number] Acct: [id number] Name: CHAN BURCIAGA Rep #: [id number] : 1980 M 43 From: Silvia Morley MD PCP: Dr. Ramiro Rosa MD Status: REG ER Study:Abdomen/Pelvis W IV Cont ONLY Date of E xam: 10/08/24 Exam# [id number] Ordering Dr: Devin Goins MD PROCEDURE: ABDOMEN/PELVIS [...] onto the urinary bladder wall. Reading Location: [facility] CC: Dr. Ramiro Rosa MD; Dr. Brad Goins MD ~ Rn Utilization Management Um: Signed [facility]06-05-2025 NoteHNO ID: [id number] Author: ZACH CARDENAS MD Service: ? Author Type: Physician Type: Progress Notes Filed: 10/08/2024 16:34 Note Text: [facility] Subjective Chan Burciaga is a [...] He is not ill-appearing. Comments: Accompanied by care home caregiver Eyes: Extraocular Movements: Extraocular movements intact. [...] caregiver will take him. Zach Cardenas MD [facility]06-05-2025 History of Present illness Narrative* [...] He is not ill-appearing. Comments: Accompanied by care home caregiver Eyes: Extraocular Movements: Extraocular movements intact. [...] Cardenas MD MDM [facility] Telephone encounter Note * Telephone Encounter - YANNICK Jones CNP - 10/02/2024 12:47 PM EDT Reviewed chart. Refill appropriate. RX sent. [facility]-29-4635 Miscellaneous Notes* Telephone Encounter - YANNICK Jones [...] refill. Next appt: 10/15/2024 documented in this encounterSFayette [facility] HospitalKjzcoj76-43-8095 Telephone encounter Note* Telephone Encounter - Puja White - 10/02/2024 12:18 PM EDT Pharmacy sent over fax requesting refills for a 31 day supply with 11 refills OR 93 day supply with3 refills. I pended a 93 day supply with 1 refill. Next appt: 10/15/2024 [facility]Yeaaqf91-62-0087 Telephone encounter Note* Telephone Encounter - Pari Wiley RN - 09/29/2024 2:15 PM EDT Tena nurse with [facility] (pt's care facility) calling back-given provider's recommendations and verbalizes understanding. [facility]05-27-2025 Miscellaneous Notes* Telephone Encounter - Pari Wiley RN - 09/29/2024 2:15 PM EDT Tena nurse with [facility] ('s care facility) calling back-given provider's recommendations and verbalizes understanding. [...] blood in the urine [facility]Way[facility]05-[facility]25 Telephone encounter Note * Telephone Encounter - Sabrina Dang LPN - 09/28/2024 3:10 PM EDT Left message for patient to return call for results.Sabrian Dang LPN [facility]05-26-2025 Telephone encounter Note* Telephone Encounter - Nicole Starr PA - 09/28/2024 10:04 AM EDT Please let patient know urine culture revealed no UTI. Please follow-up with PCP to ensure resolution of blood in the urine [facility]05-25-2025 NoteHNO ID: [id number] Author: SEAN VERDUZCO APRN.GOVERNMENT CLERK Service: ? Author Type: Nurse Practitioner Type: Progress Notes Filed: 09/27/2024 10:14 Note Text: [facility] Subjective Chan Burciaga is a [...] of care. This note was generated using [employer] software. It may contain errors in wording, punctuation, or spelling. Sean Verduzco APRN.SHELBY History and Record Review Clinical information obtained from an independent historian. History obtained from or confirmed by: other (see comments) and parent. External record(s) reviewed: prior outpatient record. Disposition The patient was discharged. [facility] History of Present illness Narrative* Sean Verduzco APRN.SHELBY - 09/27/2024 10:00 AM EDT [facility] Subjective Chan G Burciaga is a 43 year old male. [...] plan of care. This note was generated usingWhale Path software. It may contain errors in wording, punctuation, or spelling. Sean Verduzco APRN.SHELBY History and Record Review Clinical information obtained from an independent historian. History obtained from or confirmed by:other (see comments) and parent. External record(s) reviewed: prior outpatient record. Disposition The patient was discharged. Procedures documented in [facility]Way[facility]04-17-2025 Telephone encounter Note * Telephone Encounter - Barb Leung MA - 08/20/2024 9:00 AM EDT Prescription Request: Last medication check: 10/24/2023 Last physical exam: 04/20/2024 Next scheduled appointment: 10/15/2024 CSA on file (date): N/A Last urine drug screen: N/A Last date of refill on this medication 05/01/2024 [facility] HospitalLawgpa21-79-4408 Miscellaneous Notes* Telephone Encounter - Barb Leung MA - 08/20/2024 9:00 AM EDT Prescription Request: Last medication check: 10/24/2023 Last physical exam: 04/20/2024 Next scheduled appointment: 10/15/2024 CSA on file (date): N/A Last urine drug screen: N/A Last date of refill on this medication 05/01/2024 documented in this [facility]04-07-2025 Telephone encounter Note* Telephone Encounter - Carmella Morrison - 08/10/2024 1:27 PM EDT Error [place] [id number] Miscellaneous Notes* Telephone Encounter - Carmella Morrison - 08/10/2024 1:27 PM EDT Error documented in this [facility]03-20-2025 Telephone encounter Note* Telephone Encounter - Geovanna Sheila Rebollar - 07/23/2024 12:38 PM EDT Medication [...] prior to picking up the medication: Yes [facility] HospitalZilwxc41-70-9720 Miscellaneous Notes* Telephone Encounter - Geovanna Sheila Rebollar - 07/23/2024 12:38 PM EDT Medication [...] up the medication: Yes documented in this [facility]03-11-2025 Telephone encounter Note* Telephone Encounter - Lucila [...] prior to picking up the medication: Yes [facility] HospitalRxrpku80-10-2697 Miscellaneous Notes* Telephone Encounter - Lucila Malik [...] up the medication: Yes documented in this [facility]02-18-2025 Telephone encounter Note* Telephone Encounter - Antonella Silva MA - 06/23/2024 10:22 AM EST Prescription Request: Last medication check: 10/24/2023 Last physical exam: 04/20/2024 Next scheduled appointment: 10/20/2024 Last date of refill on this medication: 06/04/23 [place] [id number] Miscellaneous Notes* Telephone Encounter - Antonella Silva MA - 06/23/2024 10:22 AM EST Prescription Request: Last medication check: 10/24/2023 Last physical exam: 04/20/2024 Next scheduled appointment: 10/20/2024 Last date of refill on this medication: 06/04/23 documented in this [facility]12-30-2024 Telephone encounter Note* Telephone Encounter - YANNICK Jones CNP - 05/04/2024 9:45 AM EST Reviewed chart. Refill appropriate. RX sent. [facility] HospitalYoiujz80-90-8131 Miscellaneous Notes* Telephone Encounter - YANNICK Jones CNP - 05/04/2024 9:45 AM EST Reviewed chart. Refill appropriate. RX sent. * Telephone Encounter - Rizwana Gupta MA - 05/04/2024 9:43 AM EST [place] pharmacy requesting refill for Folic Acid 400mcg for 9 days w/1 refill. Prescription Request: Last medication check: 10/24/2023 Last physical exam: 04/20/2024 Next scheduled appointment: 10/20/2024 Last date of refill on this medication: 12/03/2023 documented in this [facility]12-30-2024 Telephone encounter Note* Telephone Encounter - Rizwana Gupta MA - 05/04/2024 9:43 AM EST [place] pharmacy requesting refill for Folic Acid 400mcg for 9 days w/1 refill. Prescription Request: Last medication check: 10/24/2023 Last physical exam: 04/20/2024 Next scheduled appointment: 10/20/2024 Last date of refill on this medication: 12/03/2023 [facility] HospitalIthupk35-41-7069 Telephone encounter Note* Telephone Encounter - YANNICK Jones CNP - 05/01/2024 11:31 AM EST Reviewed chart. Refill appropriate. RX sent. [place] [id number] Miscellaneous Notes* Telephone Encounter - YANNICK Jones CNP - 05/01/2024 11:31 AM EST Reviewed chart. Refill appropriate. RX sent. * Telephone Encounter - Lexus Landrum MA - 05/01/2024 10:04 AM EST Prescription Request: Last medication check: 10/24/23 Last physical exam: 04/20/24 Next scheduled appointment: 10/20/24 Last date of refill on this medication 12/03/23 90 day 1 refill documented in this [facility]12-27-2024 Telephone encounter Note* Telephone Encounter - Lexus Landrum MA - 05/01/2024 10:04 AM EST Prescription Request: Last medication check: 10/24/23 Last physical exam: 04/20/24 Next scheduled appointment: 10/20/24 Last date of refill on this medication 12/03/23 90 day 1 refill [facility] HospitalJyrlll07-85-9378 Evaluation + Plan note* Assessment & Plan Note - Ramiro Rosa MD - 04/20/2024 12:50 PM ESTAssociated Problem(s): Seasonal allergic rhinitis due to pollen Stable, continue Flonase and Claritin. [facility] HospitalIlrppw27-79-6639 Evaluation + Plan note* Assessment & Plan Note - Ramiro Rosa MD - 04/20/2024 12:50 PM ESTAssociated Problem(s): Recurrent major depressive disorder, in full remission (HCC) Stable, managed by psych continue current medications [facility] HospitalLdbiiq12-96-0733 Miscellaneous Notes* Assessment & Plan Note - Ramiro Rosa MD - 04/20/2024 12:50 PM ESTAssociated Problem(s): Seasonal allergic rhinitis due to pollen Stable, continue Flonase and Claritin. * Assessment & Plan Note - Ramiro Rsoa MD - 04/20/2024 12:50 PM EST Associated [...] on sleep sleep study documented in this [facility]12-16-2024 Evaluation + Plan note* Assessment & Plan Note - Ramiro Rosa MD - 04/20/2024 12:49 PM EST Associated Problem(s): Intellectual disability Stable, no current problem [facility] HospitalCkweir08-45-8841 Evaluation + Plan note* Assessment & Plan Note - Ramiro Rosa MD - 04/20/2024 12:49 PM ESTAssociated Problem(s): Hyperlipidemia LDL goal <100 controlled, continue a atorvastatin 40 mg daily and fenofibrate 145 mg daily [facility] HospitalHgohbs25-42-6897 Evaluation + Plan note* Assessment & Plan Note - Ramiro Rosa MD - 04/20/2024 12:48 PM ESTAssociated Problem(s): Essential hypertension Can roll, continue clonidine 0.2 mg, doxazosin 2 mg losartan 100 mg [facility] HospitalWnwqmd43-84-8781 Evaluation + Plan note* Assessment & Plan Note - Ramiro Rosa MD - 04/20/2024 12:48 PM ESTAssociated Problem(s): Loud snoring Stable, no sleep apnea on sleep sleep study [facility] HospitalCynukf13-53-0943 History of Present illness Narrative* Lexus Landrum [...] intellectual disability and he lives in a care home. He has hypertension and his blood pressure [...] MD 04/20/2024 12:50 PM documented in this [facility]12-02-2024 Telephone encounter Note* Telephone Encounter - YANNICK Jones CNP - 04/06/2024 2:12 PM EST Reviewed chart. Refill appropriate. RX sent. [facility] HospitalKqiksu70-50-8545 Miscellaneous Notes* Telephone Encounter - YANNICK Jones CNP - 04/06/2024 2:12 PM EST Reviewed chart. Refill appropriate. RX sent. * Telephone Encounter - Rizwana Gupta MA - 04/06/2024 1:37 PM EST Prescription Request: Last medication check: 10/24/2023 Last physical exam: 04/18/2023 Next scheduled appointment: 04/20/2024 Last date of refill on this medication: 11/12/2023 documented in this [facility]12-02-2024 Telephone encounter Note* Telephone Encounter - Rizwana Gupta MA - 04/06/2024 1:37 PM EST Prescription Request: Last medication check: 10/24/2023 Last physical exam: 04/18/2023 Next scheduled appointment: 04/20/2024 Last date of refill on this medication: 11/12/2023 [facility] HospitalRhbroo13-25-9170 Telephone encounter Note* Telephone Encounter - YANNICK Jones CNP - 02/03/2024 10:05 AM EDT [facility] HospitalDmvnye41-70-8824 Miscellaneous Notes* Telephone Encounter - YANNICK Jones CNP - 02/03/2024 10:05 AM EDT * Telephone Encounter - Rizwana Gupta MA - 02/03/2024 9:28 AM EDT Pharmacy requesting refill. Prescription Request: Last medication check: 10/24/2023 Last physical exam: 04/18/2023 Next scheduled appointment: 04/20/2024 Last date of refill on this medication: 03/29/2023 documented in this encounterSFayette [facility] HospitalOevbvu26-54-1634 Telephone encounter Note* Telephone Encounter - Rizwana Gupta MA - 02/03/2024 9:28 AM EDT Pharmacy requesting refill. Prescription Request: Last medication check: 10/24/2023 Last physical exam: 04/18/2023 Next scheduled appointment: 04/20/2024 Last date of refill on this medication: 03/29/2023 [facility] HospitalCcvwef99-53-8715 Telephone encounter Note* Telephone Encounter - Lynn [...] relayed to the patient from encounter: Yes [facility] HospitalQmldvz15-29-2231 Miscellaneous Notes* Telephone Encounter - Lynn Watts [...] patient from encounter: Yes documented in this [facility]08-15-2024 [facility] Medical Records Department [address] [place] [address] History Physical Exam 12/19/23 1005 MR#: [id number] Acct: [id number] Name: CHAN BURCIAGA Rep #: [id number] : 1980 43 From: Michael Laguerre DO PCP: Dr. Ramiro Rosa MD Status:[facility] Location: [place] [address] HPI - General General Date of Admission: 12/19/23 Date of Service: 12/19/23 Chief Complaint: Screening colonoscopy HPI Narrative CHAN BURCIAGA, is a 43 M who presents today for screening colonoscopy. He is never had a colonoscopy in the past. He does not have any abdominal pain, chest pain or shortness of breath. [facility] Medical History (Updated 12/16/23 @ 15:42 by Debora Wong) Lives in care home Arthritis Back pain Non-smoker Shortness of breath [...] History mg-400 unit-5,000 unit/gram top oint (Neosporin (srf-jat-rcort)) oxcarbazepine 600 mg tablet 600 mg PO [...] 12/19/23 09:20 12/19/23 09: (more content not included)...[facility]08-15-2024 Telephone encounter Note* Telephone Encounter - Lexus Landrum MA - 12/19/2023 7:45 AM EDT Prescription Request: Last medication check: 10/24/23 Last physical exam: 04/18/23 Next scheduled appointment: 04/20/24 Last date of refill on this medication 06/07/23 [facility]Jgknjb76-[facility]-7951 Miscellaneous Notes* Telephone Encounter - Lexus Landrum MA - 12/19/2023 7:45 AM EDT Prescription Request: Last medication check: 10/24/23 Last physical exam: 04/18/23 Next scheduled appointment: 04/20/24 Last date of refill on this medication 06/07/23 documented in this encounterSFayette County Memorial HospitalSzrptf46-50-7935 Telephone encounter Note* Telephone Encounter - YANNICK Jones CNP - 12/03/2023 5:32 PM EDT Reviewed chart. Refill appropriate. RX sent. [facility] HospitalJjtudr80-53-3876 Miscellaneous Notes* Telephone Encounter - YANNICK Jones CNP - 12/03/2023 5:32 PM EDT Reviewed chart. Refill appropriate. RX sent. * Telephone Encounter - Puja White - 12/03/2023 4:40 PM EDT Prescription Request: Last medication check: 10/24/23 Last physical exam: 04/18/23 Next scheduled appointment: 9/5/24 Last date of refill on this medication 06/26/23 documented in this [facility]07-30-2024 Telephone encounter Note* Telephone Encounter - Puja White - 12/03/2023 4:40 PM EDT Prescription Request: Last medication check: 10/24/23 Last physical exam: 04/18/23 Next scheduled appointment: 01/09/24 Last date of refill on this medication 06/26/23 [facility] HospitalRxafsl15-83-3941 Telephone encounter Note* Telephone Encounter - Lexus Landrum MA - 11/12/2023 7:05 AM EDT Prescription Request: Last medication check: 10/24/23 Last physical exam: 04/18/23 Next scheduled appointment: 04/20/24 Last date of refill on this medication 06/04/23 [facility] HospitalCqmcff80-19-4745 Miscellaneous Notes* Telephone Encounter - Lexus Landrum MA - 11/12/2023 7:05 AM EDT Prescription Request: Last medication check: 10/24/23 Last physical exam: 04/18/23 Next scheduled appointment: 04/20/24 Last date of refill on this medication 06/04/23 documented in this [facility]06-20-2024 Evaluation + Plan note* Assessment & Plan Note - Ramiro Rosa MD - 10/24/2023 11:48 AM EDT Associated Problem(s): Seasonal allergic rhinitis due to pollen Stable, continue Claritin and Flonase. [facility] HospitalQvbroa99-60-3561 Evaluation + Plan note* Assessment & Plan Note - Ramiro Rosa MD - 10/24/2023 11:48 AM EDTAssociated Problem(s): Recurrent major depressive disorder, in full remission (HCC) Remission, continue Seroquel 150 mg nightly [facility] HospitalZvinke26-92-0520 Miscellaneous Notes* Assessment & Plan Note - [...] for home sleep study. documented in this [facility]06-20-2024 Evaluation + Plan note* Assessment & Plan Note - Ramiro Rosa MD - 10/24/2023 11:47 AM EDT Associated Problem(s): Hyperlipidemia LDL goal <100 Controlled, continue atorvastatin 40 mg daily and fenofibrate 100 mg daily [facility] HospitalIjujll02-88-1263 Evaluation + Plan note* Assessment & Plan Note - Ramiro Rosa MD - 10/24/2023 11:46 AM EDTAssociated Problem(s): Essential hypertension Controlled, continue doxazosin 2 mg, clonidine 0.2 mg twice a day and losartan 100 mg daily [facility] HospitalGleull00-41-9538 Evaluation + Plan note* Assessment & Plan Note - Ramiro Rosa MD - 10/24/2023 11:45 AM EDTAssociated Problem(s): Loud snoring Order home sleep study. [facility] HospitalXzzjjc84-05-6020 Evaluation + Plan note* Assessment & Plan Note - Ramiro Rosa MD - 10/24/2023 11:45 AM EDTAssociated Problem(s): MILAGROS (obstructive sleep apnea) Witnessed apneic episodes, will schedule patient for home sleep study. 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 Rx sent if we need to we will send him back to physical therapy. [facility] HospitalXddzrv09-24-4623 Miscellaneous Notes* Assessment & Plan Note - Ramrio Rosa MD - 09/27/2023 12:24 PM EDTAssociated Problem(s): Chronic midline low back pain without sciatica Will refill his nabumetone and he is to take that regularly twice a day for up to 1 to 2 weeks. Rx sent if we need to we will send him back to physical therapy. documented in this [facility]05-24-2024 History of Present illness Narrative* Lexus Landrum [...] MD 09/27/2023 12:24 PM documented in this [facility]04-21-2024 Discharge summary Author Milly Andrew [facility] August 25, 2023 9:15pm Note Date/Time August 25, 2023 9:1 5pm [facility] Physical Therapy [facility] [address] [place] [address] / REHABILITATION SERVICES DISCHARGE SUMMARY MR#: [id number] Acct: [id number] Name: CHAN BURCIAGA Rep #: [id number] : 1980 42 From: Milly Andrew PT, [...] BETTER. HE IS APPROPRIATE FOR DISCHARGE TO [facility] AT THIS TIME. UPON EXAM TODAY: THIS [...] please feel free to call me at [phone]. Thank you for the referral of thispatient. Sincerely, Mlily Andrew, PT, Cert MDT Balance/Gait/Functional tests Balance/Special Test Scores Oswestry Low Back Score: 8 30 Second Chair Rise Test Seconds: 16 Improvement % Improvement: 50 <Electronically signed by Milly Andrew PT Cert. MDT> 08/25/232114 CC: Dr. Ramiro Rosa MD ~ MERY Signed [facility] Work Phone: 1(488) 191-145903-07-2024 Telephone encounter Note* Telephone Encounter - Puja White - 07/11/2023 8:27 AM EST Prescription Request: Last medication check: 10/18/22 Last physical exam: 04/18/23 Next scheduled appointment: 10/24/23 Last date of refill on this medication 01/08/23 [facility] HospitalOfasdb88-63-0159 Miscellaneous Notes* Telephone Encounter - Puja White - 07/11/2023 8:27 AM EST Prescription Request: Last medication check: 10/18/22 Last physical exam: 04/18/23 Next scheduled appointment: 10/24/23 Last date of refill on this medication 01/08/23 documented in this encounterSFayette County Memorial HospitalHxsnsm39-65-5226 Telephone encounter Note* Telephone Encounter - Puja White - 07/02/2023 12:04 PM EST Prescription Request: Last medication check: 10/18/22 Last physical exam: 04/18/23 Next scheduled appointment: 10/24/23 Last date of refill on this medication 08/08/22 [facility] HospitalUrvdjp93-08-6777 Miscellaneous Notes* Telephone Encounter - Puja White - 07/02/2023 12:04 PM EST Prescription Request: Last medication check: 10/18/22 Last physical exam: 04/18/23 Next scheduled appointment: 10/24/23 Last date of refill on this medication 08/08/22 documented in this [facility]02-02-2024 Telephone encounter Note* Telephone Encounter - Puja White - 06/07/2023 8:01 AM EST Prescription Request: Last medication check: 10/18/22 Last physical exam: 04/18/23 Next scheduled appointment: 10/24/23 Last date of refill on this medication 08/08/22 [facility] HospitalJtgjfu18-24-1860 Miscellaneous Notes* Telephone Encounter - Puja White - 06/07/2023 8:01 AM EST Prescription Request: Last medication check: 10/18/22 Last physical exam: 04/18/23 Next scheduled appointment: 10/24/23 Last date of refill on this medication 08/08/22 documented in this [facility]12-20-2023 Telephone encounter Note* Telephone Encounter - Antonella Silva MA - 04/24/2023 11:30 AM EST Prescription Request: Last medication check: 10/18/22 Last physical exam: 04/18/23 Next scheduled appointment: 10/24/2023 Last date of refill on this medication: 02/19/22 [facility] HospitalQnttsu61-77-0644 Miscellaneous Notes* Telephone Encounter - Antonella Silva MA - 04/24/2023 11:30 AM EST Prescription Request: Last medication check: 10/18/22 Last physical exam: 04/18/23 Next scheduled appointment: 10/24/2023 Last date of refill on this medication: 02/19/22 documented in this [facility]12-14-2023 Evaluation + Plan note* Assessment & Plan Note - Ramiro Rosa MD - 04/18/2023 10:35 AM EST Associated Problem(s): Chronic midline low back pain without sciatica Continue nabumetone and will start him in physical therapy. [facility] HospitalLryukn27-44-7588 Miscellaneous Notes* Assessment & Plan Note - [...] and losartan 100 mg documented in this [facility]12-14-2023 Evaluation + Plan note* Assessment & Plan Note - Ramiro Rosa MD - 04/18/2023 10:34 AM EST Associated Problem(s): Hyperlipidemia LDL goal <100 Controlled, continue atorvastatin 40 mg daily and fenofibrate 145 mg daily [facility] HospitalWmyhno83-99-4451 Evaluation + Plan note* Assessment & Plan Note - Ramiro Rosa MD - 04/18/2023 10:34 AM ESTAssociated Problem(s): Intellectual disability Stable, no significant change [facility] HospitalOsnfun98-52-4059 Evaluation + Plan note* Assessment & Plan Note - Ramiro Rosa MD - 04/18/2023 10:33 AM ESTAssociated Problem(s): Recurrent major depressive disorder, in full remission (HCC) Remission, continue Trileptal and Seroquel, these are managed by psych [facility] HospitalUxbuwk73-79-5434 Evaluation + Plan note* Assessment & Plan Note - Ramiro Rosa MD - 04/18/2023 10:33 AM ESTAssociated Problem(s): Seasonal allergic rhinitis due to pollen Currently stable, continue allergy medicines as needed. [facility] HospitalTrqlff12-47-8478 Evaluation + Plan note* Assessment & Plan Note - Ramiro Rosa MD - 04/18/2023 10:33 AM ESTAssociated Problem(s): Essential hypertension Controlled, continue clonidine 0.2 mg, doxazosin 2 mg and losartan 100 mg [facility] HospitalTtcgec93-26-1698 History of Present illness Narrative* Antonella Silva [...] Healthy male, fill out paperwork for his care home 2. Essential hypertension Assessment & Plan: Controlled, [...] MD 04/18/2023 10:35 AM documented in this [facility]11-24-2023 Telephone encounter Note* Telephone Encounter - YANNICK Jones CNP - 03/29/2023 11:06 AM EST Reviewed chart. Refill appropriate. RX sent. [facility] HospitalLokhuy70-72-5290 Miscellaneous Notes* Telephone Encounter - YANNICK Jones CNP - 03/29/2023 11:06 AM EST Reviewed chart. Refill appropriate. RX sent. * Telephone Encounter - Antonella Silva MA - 03/29/2023 11:04 AM EST Prescription Request: Last medication check: 10/18/22 Last physical exam: 04/19/22 Next scheduled appointment: 04/18/23 Last date of refill on this medication 8.4.23 documented in this [place] [address]-24-2023 Telephone encounter Note* Telephone Encounter - Antonella Silva MA - 03/29/2023 11:04 AM EST Prescription Request: Last medication check: 10/18/22 Last physical exam: 04/19/22 Next scheduled appointment: 04/18/23 Last date of refill on this medication 8.4.23 [facility] HospitalMmkctj52-25-1662 Telephone encounter Note* Telephone Encounter - Ramiro Rosa MD - 02/18/2023 4:11 PM EDT Okay, thank you [facility] HospitalUwtqxo23-70-2545 Miscellaneous Notes* Telephone Encounter - Ramiro Rosa [...] EDT S: Patient's caregiver Iesha spoke with [facility] nurse regarding toe injury B: Onset of [...] are no appointments available this week that [facility] nurse can schedule. Offered first available which is 02-25-23. Declined stating that pt has an appointment on that day with his foot doctor. Asking if there is anyway for him to be seen this week. R: TE sent to the office for review. Please contact Iesha at [phone] if able to be seen sooner or with further interventions. Advised to keep covered with antibiotic ointment. Ice if painful.Understands care advice. Instructed to call back with new or worsening symptoms. Reason for Disposition Toenail is completely torn off Protocols used: Toe Ftsibb-EHIKQ-PP documented in this [facility]2023 Telephone encounter Note* Telephone Encounter - Antonella Silva MA - 02/18/2023 3:46 PM EDT Notified, states he went to urgent care today but will keep appt on 02/25/23 with the foot doctor as well. [facility] HospitalKgyerr78-65-3382 Telephone encounter Note* Telephone Encounter - Ramiro Rosa MD - 02/18/2023 3:45 PM EDT If he has an appointment on the with the foot doctor he should keep that. [facility] HospitalGogxxo02-86-0897 History of Present illness Narrative* Yulia Lujan APRN.GOVERNMENT CLERK - 02/18/2023 3:00 PM EDT This note was created using Savoredriter. Subjective Chan Burciaga is a 42 year old male. 42 year old male with PMH mild ID, impulse control, NOS, mycotic toenails, hyperlipidemia, and organic brain delusional personality disorder presents for complaints of toe pain. Acute onset 0130 today He ripped his toenail off, citing that he has a habit of doing same. States bored and nothing to do Accompanied by staff of [facility], where patient resides, citing he has done similar in past. He has a stitchdown thread laster, and appt made for next week. Wanted to get him checked out Staff applied topical ATB cream No fever or chills No active bleeding Pain when he puts on his tennis shoes. The history is provided by the patient and a caregiver. The history is limited by a developmental delay. No humanities and languages professor was used. Pain (foot) Pain location: right [...] mg tablet Take 500 mg by mouth. Ihiavmmb-UyxucreiqKz-Sjbqjtwyv 3.5-500-10,000 jz-uaav-tire oint APPLY TOPICALLY TO INSIDE OF NOSE 3TIMES DAILY NEEDED FOR DRY PATCHES omega 7-vkh-fhg-fish oil 300 mg-100 mg- 150 mg-1,000 mg [...] with podiatry in 2 weeks Yulia Lujan APRN.GOVERNMENT CLERK [facility] Telephone encounter Note * Telephone Encounter - Milly Miller RN - 02/18/2023 12:27 PM EDT S: Patient's caregiver Iesha spoke with [facility] nurse regarding toe injury B: Onset [...] are no appointments available this week that [facility] nurse can schedule. Offered first available which is 02-25-23. Declined stating that pt has an appointment on that day with his foot doctor. Asking if there is anyway for him to be seen this week. R: TE sent to the office for review. Please contact Iesha at [phone] if able to be seen sooner or with further interventions. Advised to keep covered with antibiotic ointment. Ice if painful.Understands care advice. Instructed to call back with new or worsening symptoms. Reason for Disposition Toenail is completely torn off Protocols used: Toe Crvtjh-XIBPQ-YS [facility] HospitalOktrid23-59-9218 Telephone encounter Note* Telephone Encounter - Cindi Fisher MA - 01/08/2023 11:18 AM EDT Prescription Request: Last medication check: 10/18/22 Last physical exam: 04/19/22 Next scheduled appointment: 04/18/23 Last date of refill on this medication 07/09/22 31 days 5 refills [facility] Exyyqk70-34-3296 Miscellaneous Notes* Telephone Encounter - Cindi Fisher MA - 01/08/2023 11:18 AM EDT Prescription Request: Last medication check: 10/18/22 Last physical exam: 04/19/22 Next scheduled appointment: 04/18/23 Last date of refill on this medication 07/09/22 31 days 5 refills documented in this [facility]08-04-2023 Telephone encounter Note* Telephone Encounter - Cindi Fisher MA - 12/07/2022 6:51 AM EDT Prescription Request: Last medication check: 10/18/22 Last physical exam: 04/19/22 Next scheduled appointment: 04/18/23 Last date of refill on this medication 08/14/22 16g 3 refills [place] [id number] Miscellaneous Notes* Telephone Encounter - Cindi Fisher MA - 12/07/2022 6:51 AM EDT Prescription Request: Last medication check: 10/18/22 Last physical exam: 04/19/22 Next scheduled appointment: 04/18/23 Last date of refill on this medication 08/14/22 16g 3 refills documented in this [facility]06-29-2023 Telephone encounter Note* Telephone Encounter - Antonella Silva MA - 11/01/2022 10:58 AM EDT Prescription Request: Last medication check: 10/18/22 Last physical exam: 04/19/22 Next scheduled appointment: 04/18/23 Last date of refill on this medication: 05/15/22 [place] [id number] Miscellaneous Notes* Telephone Encounter - Antonella Silva MA - 11/01/2022 10:58 AM EDT Prescription Request: Last medication check: 10/18/22 Last physical exam: 04/19/22 Next scheduled appointment: 04/18/23 Last date of refill on this medication: 05/15/22 documented in this encounterSFayette County Memorial HospitalTjenaa47-25-1694 Telephone encounter Note* Telephone Encounter - Azul Walters - 10/25/2022 3:00 PM EDT Message released to patient as written. Patient's further questions if applicable: Yes Iesha states she has a new # [phone]. Iesha states they need the order for the prescription faxed to their office at [phone]. Stating the patient should take the medication once every 12 hours as needed for pain. Please advise. Were all questions from office addressed or relayed to the patient from encounter: Yes [facility] HospitalGztabp96-93-9888 Miscellaneous Notes* Telephone Encounter - Azul Walters - 10/25/2022 3:00 PM EDT Message released to patient as written. Patient's further questions if applicable: Yes Iesha states she has a new # [phone]. Iesha states they need the order for the prescription faxed to their office at [phone]. Stating the patient should take the medication [...] note were not included. YANNICK Deal CNP [facility] Clinical Telephone Operator 23 hours ago (8:32 AM) HL It [...] note were not included. YANNICK Deal CNP [facility] Clinical Telephone Operator 8 minutes ago (8:32 AM) HL It [...] of caller: Iesha Cali Contact phone number: [phone] Relationship to Patient: Nurse Charge Rn, [facility] Provider: Dr. Rosa Practice: [facility] Chief [...] order and to please fax this to: [phone] Attn: Laureen Gilmore. Please advise. Thank you. Best time of day caller can be reached: Any Patient advised that office/PCP has 24-48 business hours to return their call: Yes documented in this encounterSFayette County Memorial HospitalJorprc75-08-2482 Telephone encounter Note* Telephone Encounter - Antonella Silva MA - 10/24/2022 9:17 AM EDT Called Iesha, no answer and no vm. [facility] HospitalOhrktj72-20-6515 Telephone encounter Note* Telephone Encounter - Antonella Silva MA - 10/23/2022 8:20 AM EDT Images from the original note were not included. YANNICK Deal CNP [facility] [place] Clinical Telephone Operator 23 hours ago (8:32 AM) HL It was sent for 60 tablets. Even though it was sent saying twice a day he can use it twice a day, which is every 12 hours, as needed. Called Iesha, no answer and no vm. [facility] HospitalTrsvxy82-86-9698 Telephone encounter Note* Telephone Encounter - Antonella Silva MA - 10/22/2022 8:41 AM EDT Images from the original note were not included. YANNICK Deal CNP [facility] [place] Clinical Telephone Operator 8 minutes ago (8:32 AM) HL It was sent for 60 tablets. Even though it was sent saying twice a day he can use it twice a day, which is every 12 hours, as needed. I called Iesha back, no answer and vm is not set up. [address] StreetCebdzl65-15-9208 Telephone encounter Note* Telephone Encounter - YANNICK Deal CNP - 10/22/2022 8:32 AM EDT It was sent for 60 tablets. Even though it was sent saying twice a day he can use it twice a day, which is every 12 hours, as needed. [facility] HospitalKuylpy99-83-6276 Telephone encounter Note* Telephone Encounter - Madelin MaguireJose Manuel Puentes - 10/19/2022 2:14 PM EDT Name of caller: Iesha Carranzacker Contact phone number: [phone] Relationship to Patient: Nurse Charge Rn, [facility] Provider: Dr. Rosa Practice: [facility] Chief [...] order and to please fax this to: [phone] Attn: Laureen Gilmore. Please advise. Thank you. Best time of day caller can be reached: Any Patient advised that office/PCP has 24-48 business hours to return their call: Yes [facility] HospitalHuvkte60-04-0617 Evaluation + Plan note* Assessment & Plan Note - Ramiro Rosa MD - 10/18/2022 4:30 PM EDTAssociated Problem(s): Recurrent major depressive disorder, in full remission (HCC) Remission, continue Trileptal and Seroquel as prescribed by his psych. [facility] HospitalUljqso96-36-2766 Evaluation + Plan note* Assessment & Plan Note - Ramiro Rosa MD - 10/18/2022 4:30 PM EDTAssociated Problem(s): Hyperlipidemia LDL goal <100 Controlled, continue atorvastatin 40 mg daily and fenofibrate 145 mg daily [facility] HospitalBwypiq41-43-2897 Evaluation + Plan note* Assessment & Plan Note - Ramiro Rosa MD - 10/18/2022 4:30 PM EDTAssociated Problem(s): Acute midline low back pain without sciatica Comes and goes, we will get him a refill on his nabumetone to be used twice a day as needed. [facility] HospitalCbvrpz78-54-2271 Miscellaneous Notes* Assessment & Plan Note - [...] losartan 100 mg daily documented in this [facility]06-15-2023 Evaluation + Plan note* Assessment & Plan Note - Ramiro Rosa MD - 10/18/2022 4:29 PM EDT Associated Problem(s): Essential hypertension Controlled, continue losartan 100 mg daily [facility] HospitalWzmaof91-02-8199 History of Present illness Narrative* Lexus Landrum MA - 10/18/2022 2:15 PM EDT Patient verified by last name and date of . Patient wants a teacher aide clerical in the room during during the visit. no Process Control Engineer na [place] in room during visit * [...] MD 10/18/2022 4:31 PM documented in this [place] [address]-24-2023 Evaluation + Plan note* Assessment & Plan Note - Ramiro Rosa MD - 08/27/2022 12:35 PM EDT Associated Problem(s): Acute midline low back pain without sciatica We will send him for x-rays of his lumbar spine. Nabumetone 500 mg twice a day for up to 7 days and he can use Tylenol in addition to that. [place] [address]Vjzpxg32-76-1716 Miscellaneous Notes* Assessment & Plan Note - Ramiro Rosa MD - 08/27/2022 12:35 PM EDTAssociated Problem(s): Acute midline low back pain without sciatica We will send him for x-rays of his lumbar spine. Nabumetone 500 mg twice a day for up to 7 days and he can use Tylenol in addition to that. documented in this [place] [address]-24-2023 History of Present illness Narrative* Ramiro Rosa [...] MD 08/27/2022 12:36 PM documented in this encounterSFayette County Memorial HospitalVbbdwm53-66-0531 Telephone encounter Note* Telephone Encounter - YANNICK Jones CNP - 08/08/2022 9:05 AM EDT Reviewed chart. Refill appropriate. RX sent. [facility] HospitalXqafcg06-42-8374 Miscellaneous Notes* Telephone Encounter - YANNICK Jones [...] 90 day 1 refill documented in this [facility]04-05-2023 Telephone encounter Note* Telephone Encounter - Lexus Landrum MA - 08/08/2022 8:23 AM EDT Prescription Request: Last medication check: 10/12/21 Last physical exam: 04/19/22 Next scheduled appointment: 10/18/22 CSA on file (date): na Last urine drug screen: na Last date of refill on this medication 02/19/22 loratadine, folic acid, fenofibrate, multivitamin, omega 3 all 1month 5 refills 04/19/22 atorvastatin 90 day 1 refill [facility] HospitalDzmobd04-92-6043 Telephone encounter Note* Telephone Encounter - YANNICK Deal CNP - 07/09/2022 2:58 PM EST Rx sent. Follow up as scheduled. [facility] HospitalNiqatp16-88-3972 Miscellaneous Notes* Telephone Encounter - YANNICK Deal [...] 90 day 1 refill documented in this encounterSFayette [id number] Telephone encounter Note* Telephone Encounter - Lexus Landrum MA - 07/09/2022 7:23 AM EST Prescription Request: Last medication check: 10/12/21 Last physical exam: 04/19/22 Next scheduled appointment: 10/18/22 CSA on file (date): na Last urine drug screen: na Last date of refill on this medication 02/26/22 90 day 1 [id number] Telephone encounter Note* Telephone Encounter - Cindi Fisher - 05/04/2022 12:42 PM EST Iesha notifsimon. [facility] [id number] Miscellaneous Notes* Telephone Encounter - Cindi Fisher - 05/04/2022 12:42 PM EST Iesha notifsimon. * Telephone Encounter - YANNICK Jones CNP [...] Name of caller: Iesha Contact phone number: [phone] Relationship to Patient: Nurse Charge Rn at [facility] Provider: Dr Rosa Practice: [facility] Chief Complaint/Reason for Call: Caller [...] return their call: Yes documented in this encounterSFayette County [facility] [id number] Telephone encounter Note* Telephone Encounter - YANNICK Jones CNP - 05/04/2022 12:24 PM EST The fax was reviewed. Blood pressures remain elevated. Increase losartan to 100 mg and monitor blood pressure daily, provide readings to office in 2 weeks. Will sent new rx [facility] [id number] Telephone encounter Note* Telephone Encounter - Dmitry Benedict - 05/04/2022 11:05 AM EST URGENT: PATIENT WILL BE OUT OF BP MEDICATION THIS WEEKEND. Name of caller: Iesha Contact phone number: [phone] Relationship to Patient: Nurse Charge Rn at [facility] Provider: Dr Rosa Practice: [facility] Chief Complaint/Reason for Call: Caller [...] business hours to return their call: Yes [facility]+Reason for visit Narrative* Chief Complaint COVID COVID TEST Reason for Visit COVID-19 [facility] Work Phone: Chifz complaint+Reason for visit Narrative* Chief Complaint COVID COVID TEST HTN Reason for Visit COVID-19 [facility] Work Phone: Consult note Author Kirk Askew [facility] Note Date/Time October 23, 2024 8:59 am [facility] Medical Records Department [address] [place] [address] Anesthesia Postop Eval I 10/23/24 0858 MR#: [id number] Acct: [id number] Name: CHAN BURCIAGA Rep #:[id number] : 1980 44 From: Kirk LUNDBERG PCP: Dr. Ramiro Rosa MD Status:[facility] Y Race: C Location: [place] [address] Anesthesia: Postop Eval I Current Vital Signs Temperature: 97 F Pulse Rate: 97 Blood Pressure: 113/78 Respiratory Rate: 16 Pulse Ox: 94 Assessment Airway patent: Yes Spontaneous unlabored respirations: Yes nausea: No Vomiting: No Anesthesia Complication: No Fluid Hydration Crystalloid volume administer (ml): 800 Total IV fluid infused: 800 Progress Note Anesthesia document: Postop Eval 1 completed: Yes 10/23/24 0859 <Electronically signed by Kirk Askew CRNA> Date _ Kirk Askew CRNA Cosigner Signature: Date CC: ~ Signed [facility] Work Phone: Consult note Author Oliverio Candelaria [facility] Note Date/Time October 30, 2024 3:09 pm [facility] Medical Records Department [address] [facility] [place] [address] Anesthesia Postop Eval I 10/30/24 1508 MR#: [id number] Acct: [id number] Name: CHAN BURCIAGA Rep #:[id number] : 1980 44 From: Oliverio ordaz CRNA PCP: Dr. Ramiro Rosa MD Status:[facility] Y Race: C Location: [place] [address] Anesthesia: Postop Eval I Current Vital Signs Temperature: 99.9 F Pulse Rate: 96 Blood Pressure: 125/74 Respiratory Rate: 16 Pulse Ox: 93 Oxygen Delivery Method: Nasal Cannula Assessment Airway patent: Yes Spontaneous unlabored respirations: Yes nausea: No Vomiting: No Anesthesia Complication: No Fluid Hydration Crystalloid volume administer (ml): 1,000 Total IV fluid infused: 1,000 Progress Note Anesthesia document: Postop Eval 1 completed: Yes 10/30/24 2674 <Electronically signed by Oliverio rosario CRNA> Date _ Oliverio Candelaria CRNA Cosigner Signature: Date CC: ~ Signed [facility] Work Phone: Discharge summary Author Austin Mares [facility] Note Date/Time October 09, 2024 3:53p m [facility] Medical Records Department [address] [place] [address] Instructions for Home/Discharge Instructions 10/09/24 1545 MR#: [id number] Acct: [id number] Name: CHAN BURCIAGA Rep #:[id number] : 1980 43 From: [place] avalos MD [...] risk with narcotics therefore I do recommend ufcf-ala-babdbjz stool softeners while taking narcotics. Discharge Orders/Prescriptions [...] mg tablet 600 mg PO BID Neosporin (qsf-sjn-kboco) 3.5mg-400 unit- 5,000 unit/gram ointment 1 applic [...] can be placed): Home, Self Care 10/09/24 1833<Electronically signed by [place] Mares MD>Austin Mares MD CC: Dr. Yamileth Aguirre MD; Dr. Ramiro Rosa MD; Dr. Salvador Rush MD ~ Signed [facility] Work Phone: Discharge summary Author Austin Mares [facility] Note Date/Time October 09, 2024 4:15p m [facility] Medical Records Department [address] [place] [address] Discharge Summary 10/09/24 1608 MR#: [id number] Acct: [id number] Name: CHAN BURCIAGA Rep #:[id number] : 1980 43 From: [place] avalos MD PCP: Dr. Ramiro Rosa MD Status:ADM IN [id number] Prov[facility] Date of Admission: 10/08/24 Primary Care [...] 3.5 mg-400 unit-5,000 unit/gram top oint (Neosporin (hfq-umb-gunra)) 1 applic topical TID PRN dry skin [...] M w/ intellectual debilities living in a care home w/ PMHx: CKD stage II per GFR trending, HTN, HLD, Anxiety and Depression/Mood disorder, Obesity who presents to the [facility] ED on 10/08/24 with history of [...] after morphine but discussion with patient and care home staff he rates his discomfort previously potentially [...] ureteral stone?43-year-old male who resides in a care home secondary to intellectual debilities presents to the [...] % (Auto) 68.7, Lymph % (Auto) 19.2, Prentiss% (Auto) 8.0, Eos % (Auto) 2.9, Baso [...] Clarity Cloudy, Urine pH 7.0, Ur Specific [place] 1.010, Urine Protein 30 H, Urine Glucose [...] % (Auto) 53.3, Lymph % (Auto) 31.8, Prentiss% (Auto) 8.4, Eos % (Auto) 5.5 H, [...] onto the urinary bladder wall. Reading Location: [facility] D/C Instructions Discharge Diet: Low fat / [...] risk with narcotics therefore I do recommend ryvg-cdr-xjgoxvv stool softeners while taking narcotics. Discharge Orders/Prescriptions [...] mg tablet 600 mg PO BID Neosporin (vqw-nql-lprsn) 3.5mg-400 unit- 5,000 unit/gram ointment 1 applic [...] Self Care Charges/Coding Visit Charges Inpatient E&M: 61602 Disch Hosp >30min 10/09/24 1615 <Electronically signed by [place] Mares MD> Cosigner Signature (if applicable): CC: Dr. Ramiro Rosa MD; Dr. [place] Mares MD~ Signed [facility] Work Phone: Discharge summary Author Salvador Rush [facility] Note Date/Time October 23, 2024 10:1 8am [facility] Medical Records Department [address] [place] [address] Instructions for Home/Discharge Instructions 10/23/24 0849 MR#: [id number] Acct: [id number] Name: CHAN BURCIAGA Rep #:[id number] : 1980 44 From: Salvador Rush MD PCP: Dr. Ramiro Rosa MD Status:REG NDC Discharge Instructions Diet Discharge Diet: No restrictions DC O2, CPAP, BIPAP needs Home O2 Discharge instructions: No Dressing / Incision Discharge Activity: Return to Normal Activity and May Not Drive (while taking narcotic pain medications.) Dressing / Incision Call your doctor if you observe: Fever of 101 or Higher Follow Up Care Please Follow Up With: Salvador Rush MD When: Call [phone] for an appointment Test Results: Test results from this visit will be discussed in further detail at your follow- up appointment, if applicable. Discharge Plan Admission Primary Reason for Your Visit: laser stone and stent Attending Provider: Salvador Rush Primary Care Provider: Ramiro Rosa Instructions Print Language: Algerian Discharge Orders/Prescriptions Prescriptions: New cephalexin 500 mg capsule 500 mg PO TID Qty: 15 0RF oxycodone 5 mg tablet 5 mg PO Q6H PRN (Reason: pain) 7 Days Qty: 20 0RF Continued quetiapine 150 mg tablet extended release 24 hr 100 mg PO 0700 Patient Comments: TAKE 1 TABLET BY MOUTHEONCE [...] mg tablet 600 mg PO BID Neosporin (lxs-ocl-wjtzb) 3.5mg-400 unit- 5,000 unit/gram ointment 1 applic [...] 200 MG tablet 350 mg PO DAILY quetiapine 200 mg tablet 200 mg PO 1600 clonazepam 0.5 mg tablet 0.25 mg PO TID Referrals / Follow Up: Ramiro Rosa MD [Primary Care Provider] - Disposition Disposition (needs filled in before D/C Order can be placed): Home, Self Care 10/23/24 0849<Electronically signed by Salvador Rush MD>Salvador Rush MD CC: Dr. Ramiro Rosa MD ~ Signed [facility] Work Phone: Discharge summary Author Salvador Rush [facility] Note Date/Time October 30, 2024 1:32 pm [facility] Medical Records Department [address] [place] [address] Instructions for Home/Discharge Instructions 10/30/24 1331 MR#: [id number] Acct: [id number] Name: CHAN BURCIAAG Rep #:[id number] : 1980 44 From: Salvador Rush MD PCP: Dr. Ramiro Rosa MD Status:REG NDC Discharge Instructions Diet Discharge Diet: No restrictions DC O2, CPAP, BIPAP needs Home O2 Discharge instructions: No Dressing / Incision Discharge Activity: Return to Normal Activity Follow Up Care Please Follow Up With: Salvador Rush MD When: Call [phone] for an appointment Test Results: Test results from this visit will be discussed in further detail at your follow- up appointment, if applicable. Discharge Plan Admission Primary Reason for Your Visit: laser bladder stones Attending Provider: Salvador Rush Primary Care Provider: Ramiro Rosa Instructions Print Language: Algerian Discharge Orders/Prescriptions Prescriptions: New sulfamethoxazole-trimethoprim [Bactrim DS] 800-160 mg tablet 1 tab PO BID Qty: 14 0RF tamsulosin [Flomax] 0.4 mg capsule 0.4 mg PO QHS Qty: 30 1RF finasteride [Proscar] 5 mg tablet 5 mg PO DAILY Qty: 30 1RF Continued quetiapine 150 mg tablet extended release 24 hr 100 mg PO 0700 Patient Comments: TAKE 1 TABLET BY MOUTHEONCE [...] mg tablet 600 mg PO BID Neosporin (jij-txx-ltkjj) 3.5mg-400 unit- 5,000 unit/gram ointment 1 applic [...] 200 MG tablet 350 mg PO DAILY quetiapine 200 mg tablet 200 mg PO 1600 clonazepam 0.5 mg tablet 0.25 mg PO TID cephalexin 500 mg capsule 500 mg PO TID Qty: 15 0RF oxycodone 5 mg tablet 5 mg PO Q6H PRN (Reason: pain) 7 Days Qty: 20 0RF Referrals / Follow Up: Ramiro Rosa MD [Primary Care Provider] - Salvador Rush MD [Med Staff - Active Staff] - Disposition Disposition (needs filled in before D/C Order can be placed): Home, Self Care 10/30/24 1332<Electronically signed by Salvador Rush MD>Salvador Rush MD CC: Dr. Ramiro Rosa MD ~ Signed [facility] Work Phone: Evaluation note* Diagnosis Onset Date Resolution Status COVID-19 acute [facility] Work Phone: Evaluation noteNo assessment information available [facility] Work Phone: Evaluation note* Diagnosis Acute midline low back pain without sciatica- Primary Acute midline low back pain without sciatica [facility] Diagnosis Acute midline low back pain without sciatica [facility] Diagnosis Essential hypertension- Primary Unspecified essential hypertension Hyperlipidemia LDL goal <100 Other and unspecified hyperlipidemia Recurrent major depressive disorder, in full remission (HCC) Acute midline low back pain without sciatica [facility] Diagnosis Seasonal allergic rhinitis due to pollen [facility]* Diagnosis Toenail torn away- Primary [facility] Diagnosis Seasonal allergic rhinitis due to pollen [facility]* Diagnosis Annual physical exam- Primary [...] pain without sciatica [facility]* Diagnosis Onset Date Resolution Status Urinary tract infection with hematuria acute [facility] Work Phone: Evaluation note* Diagnosis Essential hypertension- Primary Unspecified essential hypertension Hyperlipidemia LDL goal <100 Other and unspecified hyperlipidemia [facility]* Diagnosis Chronic midline low back pain without sciatica- Primary [facility]* Diagnosis Essential hypertension- Primary Unspecified essential hypertension Hyperlipidemia LDL goal <100 Other and unspecified hyperlipidemia Recurrent major depressive disorder, in full remission (HCC) Seasonal allergic rhinitis due to pollen MILAGROS (obstructive sleep apnea) Obstructive sleep apnea (adult) (pediatric) Loud snoring Screening for colon cancer Special screening for malignant neoplasms, colon [facility]* Diagnosis Hyperlipidemia LDL goal <100 Other and unspecified hyperlipidemia [facility]* Diagnosis Seasonal allergic rhinitis due to pollen [facility]* Diagnosis MILAGROS (obstructive sleep apnea) Obstructive sleep apnea (adult) (pediatric) Loud snoring [facility]* Diagnosis Annual physical exam- Primary [...] and unspecified hyperlipidemia [facility] Diagnosis Annual physical exam- Primary [...] and unspecified hyperlipidemia [facility]* Diagnosis Acute cystitis with hematuria- Primary Acute cystitis [facility] Diagnosis Annual physical exam- [...] and unspecified hyperlipidemia [facility]* Diagnosis Onset Date Resolution Status Admit Date Abdominal pain acute October 08, 2024 8:03pm History of hypertension acute J 2024 8:03pm Intractable abdominal pain acute October 08, 2024 8:03pm Kidney stone on left side acute October 08, 2024 8:03pm [facility] Work Phone: Evaluation note* Diagnosis Midline low back pain, unspecified chronicity, unspecified whether sciatica present- Primary Abdominal pain, unspecified abdominal location Microscopic hematuria History of kidney stones Personal history of urinary calculi [facility] Diagnosis Annual physical exam- Primary [...] HealthHistory and physical note Author Yamileth Aguirre [facility] Note Date/Time October 08, 2024 8:46p [facility] Medical Records Department [address] [place] [address] H&P Exam - Hospitalist 10/08/242001 MR#: [id number] Acct: [id number] Name: CHAN BURCIAGA Rep #:[id number] : 1980 43 From: Yamileth Aguirre MD PCP: Dr. Ramiro Rosa MD Status:ADM IN Location: [facility] [id number] HPI - General General Date of Admission: 10/08/24 Date of Service: 10/08/24 Chief Complaint: Abdominal pain, flank pain. HPI Narrative The patient is a 43 y/o M w/ intellectual debilities living in a care home w/ PMHx: CKD stage II per GFR trending, HTN, HLD, Anxiety and Depression/Mood disorder, Obesity who presents to the [facility] ED on 10/08/24 with history of [...] after morphine but discussion with patient and care home staff he rates his discomfort previously potentially [...] IV x 1. EDdiscussed case with urology. [facility] Medical History Lives in care home Arthritis Back pain Non-smoker Shortness of breath on exertion Intellectual disability Recurrent major depression in full remission Hyperlipidemia Essential hypertension Urinary tract infection with hematuria Home Medications ?Medication ?Instructions ?Recorded ?Last Taken ?Type fenofibrate nanocrystallized 145 145 mg PO DAILY 07/0812/18/23 History mg tablet folic acid 400 mcg tablet 0.4 mg PO DAILY@0800 12/18/23 History garlic 200 mg tablet 350 [...] History mg-400 unit-5,000 unit/gram top oint (Neosporin (muy-bpa-knumt)) oxcarbazepine 600 mg tablet 600 mg PO [...] alert, oriented to self, place, recent vents, care home staff present, remains cooperative, seated upright in [...] currently is baseline intact per discussion with care home staff, pupils equally reactive to light and [...] % (Auto) 68.7, Lymph % (Auto) 19.2, Prentiss% (Auto) 8.0, Eos % (Auto) 2.9, Baso [...] Clarity Cloudy, Urine pH 7.0, Ur Specific [place] 1.010, Urine Protein 30 H, Urine Glucose [...] onto the urinary bladder wall. Reading Location: [facility] Assessment & Plan Assessment/Plan (1) Kidney stone on left side: PLAN: Plan The patient is a 43 y/o M w/ intellectual debilities living in a care home w/ PMHx: CKD stage II per GFR trending, HTN, HLD, Anxiety and Depression/Mood disorder, Obesity who presents to the [facility] ED on 10/08/24 with history of [...] STATUS: Full Code per discussion with the care home staff. Charges/Coding Visit Charges Inpatient E&M: 62517 Init Hosp L3 10/08/242045 <Electronically signed by Yamileth Aguirre MD> Cosigner Signature (if applicable): CC: Dr. Yamileth Aguirre MD; Dr. Ramiro Rosa MD~ Signed [facility] Work Phone: Hospital Discharge instructions Additional Instructions Constipation is a risk with narcotics therefore I do recommend ryko-wwd-dyceund stool softeners while taking narcotics.[facility] Work Phone: Reason for referral (narrative)No reason for referral information [facility] Work Phone: Advance Directives No Advanced Directives Records Found Advance Directive Response Recorded Date/ Time Living Will No March 03 12:18pm Power of Electric Power Line Repairer No March 03, 2021 12:18pm Advance Directive Response Recorded Date/ Time Living Will No April 17, 2 022 11:27am Power of Electric Power Line Repairer No April 17, 2022 11:27am Advance Directive Response Recorded Date/ Time Living Will No April 17, 2 022 12:27pm Power of Electric Power Line Repairer No April 17, 2022 12:27pm Advance Directive Response Recorded Date/ Time Do you have a Healthcare Power of Electric Power Line Repairer? Yes October 08, 2024 5:01pm Advance Directive Response Recorded Date/ Time Do you have a Healthcare Power of Electric Power Line Repairer? 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 No October 15, 2024 10:22am Do you have a Healthcare Power of Electric Power Line Repairer? Yes October 08, 2024 9:22pm Advance Directive Response Recorded Date/ Time Do you have a Healthcare Power of Electric Power Line Repairer? No October 15, 2024 10:22am Do you have a Healthcare Power of Electric Power Line Repairer? No October 28, 2024 4:22pm Do you have a Healthcare Power of Electric Power Line Repairer? Yes October 08, 2024 9:22pm Reason for Referral Specialty Diagnoses / Procedures Referred By Contac t Referred To Contact Physical Therapy Diagnoses Chronic midline low back pain without sciatica Procedures ND OFFICE/OUTPATIENT NEW HIGH MDM 60-74 MINUTES Ramiro Rosa MD [address] [place] [address] Referral ID Status Reason Start Date Expiration Date Visits Requested Visits Authorized [id number] Pending Review Eval and Treat 3 10/15/2023 99 99 Scheduling Instructions [facility] [place] Specialty Diagnoses / Procedures Referred By Contac t Referred To Contact Sleep Medicine Diagnoses MILAGROS (obstructive sleep apnea) Loud snoring Procedures Home sleep test Ramiro Rosa MD [address] [place] [address] Referral ID Status Reason Start Date Expiration Date V isits Requested Visits Authorized [id number] Authorized 10/24/2023 10/18/2024 1 1 Specialty Diagnoses / Procedures Referred By Contac t Referred To Contact Gastroenterology Diagnoses Screening for colon cancer Procedures ND OFFICE/OUTPATIENT [facility] MDM 60 MINUTES Ramiro Rosa MD [address] [place] [address] Friend, [address] [place] [address] Referral ID Status Reason Start Date Expiration Date Visits Requested Visits Authorized [id number] Pending Review Specialty Services Required 10/24/2023 10/23/2024 [...] WITH HYDRON EPHROSIS October 09, 2024 4:08pm Chief Complaint Admit Date NEPHROLITHIASIS, OBSTRUCTIVE WITH HYDRON EPHROSIS October 08, 2024 8:03pm Shortness of breath October 09, 2024 9:58a m NEPHROLITHIASIS, OBSTRUCTIVE WITH HYDRON EPHROSIS October 09, 2024 4:08pm L URETEROSCOPY LASER STENT October 23 5:59am Chief Complaint Admit Date NEPHROLITHIASIS, OBSTRUCTIVE WITH HYDRON EPHROSIS October 08, 2024 8:03pm Shortness of breath October 09, 2024 9:58a m NEPHROLITHIASIS, OBSTRUCTIVE WITH HYDRON EPHROSIS October 09, 2024 4:08pm L URETEROSCOPY LASER STENT October 23 5:59am Cysto,Litholapaxy,Laser,Bladder Stones. Left Sten October 30, 2024 10:34am Family History No Family History Records Found [...] Procedures Home sleep test Ramiro Rosa MD [address] [place] [address], [address] [place] [phone] Referral ID Status Reason Start Date Expiration Date Visits Re quested Visits Authorized [id number] Closed 10/24/2023 10/18/2024 1 1 Reason Onset [...] Provider Active St art: October 08, 2024 [employer] Relationship Specialty Start Date End Date Ramiro Rosa MD [place], [place] [phone] PCP - General 03/11/15 Team Status: Active Member Role Status Dates Dr. Ramiro Rosa MD Family Provider Active Dr. Ramiro Rosa MD Primary Care Provider Active Team Status: Inactive Member Role Status Dates Dr. Ramiro Rosa MD Primary Care Provider Active Dr. Eleni Borden MD Attending Provider Active [employer] Relationship Specialty Start Date End Date Ramiro Rosa MD [address] [place] [phone] PCP - General 03/11/15 [employer] Relationship Specialty Start Date End Date Ramiro Rosa MD [place], [place] [phone] PCP - General 03/11/15 [employer] Relationship Specialty Start Date End Date Ramiro Rosa MD [address] [facility] [place] [address] PCP - General 03/11/15 [employer] Relationship Specialty Start Date End Date Ramiro Rosa MD [address] [facility] [place] [address] PCP - General 03/11/15 [employer] Relationship Specialty Start Date End Date Ramiro Rosa MD [address] [facility] [place] [address] PCP - General 03/11/15 [employer] Relationship Specialty Start Date End Date Ramiro Rosa MD [address] [place] [address] [place] [address] PCP - General 03/11/15 [employer] Relationship Specialty Start Date End Date Ramiro Rosa MD [address] [facility] [place] [address] PCP - General 03/11/15 [employer] Relationship Specialty Start Date End Date Ramiro Rosa [address] [place] [address] [place] [address] PCP - General Family Medicine 06/12/21 [employer] Relationship Specialty Start Date End Date Ramiro Rosa MD [address] [facility] [place] [address] PCP - General 03/11/15 [employer] Relationship Specialty Start Date End [place] [address] PCP - General 03/11/15 [employer] Relationship Specialty Start Date End [place] [address] PCP - General 03/11/15 Team Status: Inactive Member Role Status Dates Dr. Ramiro Rosa MD Primary Care Provider, Referri ng Provider Active Bernabe PISANO PA Attending Provider Active Team Status: Inactive Member Role Status Dates Dr. Ramiro Rosa MD Primary Care Provider Active Bernabe PISANO PA Attending Provider, Referring Pr ovider Active [employer] Relationship Specialty Start Date End [place] [address] PCP - General 03/11/15 [employer] Relationship Specialty Start Date End [place] [address] PCP - General 03/11/15 Team Status: Inactive Member Role Status Dates Dr. Ramiro Rosa MD Primary Care Provider, Attendi ng Provider Active [employer] Relationship Specialty Start Date End [place] [address] PCP - General 03/11/15 [employer] Relationship Specialty Start Date End [place] [address] PCP - General 03/11/15 [employer] Relationship Specialty Start Date End Date Ramiro Rosa MD [facility] [place] [address] PCP - General 03/11/15 [employer] Relationship Specialty Start Date End Date Ramiro Rosa MD [facility] [place] [address] PCP - General 03/11/15 [employer] Relationship Specialty Start Date End Date Ramiro Rosa MD [address] [facility] [place] [place] [address] PCP - General 03/11/15 [employer] Relationship Specialty Start Date End Date Ramiro Rosa MD 25 [facility] [place] [address] PCP - General 03/11/15 [employer] Relationship Specialty Start Date End Date Ramiro Rosa MD 25 [facility] [place] [address] PCP - General 03/11/15 [employer] Relationship Specialty Start Date End Date Ramiro Rosa MD 25 [facility] [place] [address] PCP - General 03/11/15 [employer] Relationship Specialty Start Date End Date Ramiro Rosa MD 25 [facility] [place] [address] PCP - General 03/11/15 [employer] Relationship Specialty Start Date End Date Ramiro Rosa MD [address] [place] [address] PCP - General 03/11/15 [employer] Relationship Specialty Start Date End Date Ramiro Rosa MD 25 [facility] [place] [address] PCP - General 03/11/15 [employer] Relationship Specialty Start Date End Date Ramiro Rosa MD 25 [facility] [place] [address] PCP - General 03/11/15 [employer] Relationship Specialty Start Date End Date Ramiro Rosa MD [address] [facility] [place] [address] PCP - General 03/11/15 [employer] Relationship Specialty Start Date End Date Ramiro Rosa MD 25 [facility] [place] [address] PCP - General 03/11/15 [employer] Relationship Specialty Start Date End Date Ramiro Rosa MD 25 [facility] [place] [address] PCP - General 03/11/15 [employer] Relationship Specialty Start Date End Date Ramiro Rosa [address] [place] [address] PCP - General Family Medicine 06/12/21 [employer] Relationship Specialty Start Date End Date Ramiro Rosa [address] [place] [address] PCP - General Family Medicine 06/12/21 [employer] Relationship Specialty Start Date End Date Ramiro Rosa [address] [facility] [place] [address] PCP - General Family Medicine 06/12/21 Team [...] Other Provider Active Start: October 09, 2024 [employer] Relationship Specialty Start Date End Date Ramiro Rosa MD [address] [place] [address] PCP - General 03/11/15 Team Status: Active Member Role Status Dates Dr. Ramiro Rosa MD Primary Care Provider Active Start: October 09, 2024 End: October 09, 2024 Dr. Delbert Faye MD Attending Provider Active Start: October 09, 2024 End: October 09, 2024 Dr. Yamileth Aguirre MD Referring Provider Active Start: October 09, 2024 End: October 09, 2024 Team Status: Inactive Member Role Status Dates Dr. Ramiro Rosa MD Primary Care Provider Active Start: October 23, 2024 End: October 23, 2024 Dr. Salvador Rush MD Attending Provider Active Start: October 23, 2024 End: October 23, 2024 Dr. Salvador Rush MD Referring Provider Active Start: October 23, 2024 End: October 23, 2024 Team Status: Active Member Role/Relationship Status Dates Dr. Ramiro Rosa MD Primary Care Provider Active Team Status: Inactive Member Role/Relationship Status Dates Dr. Ramiro Rosa MD Primary [...] October 09, 2024 Team Status: Active Member Role/Relationship Status Dates Dr. Ramiro Rosa MD Primary Care Provider Active Start: October 09, 2024 End: October 09, 2024 Dr. Delbert Faye MD Attending Provider Active Start: October 09, 2024 End: October 09, 2024 Dr. Yamileth Aguirre MD Referring Provider Active Start: October 09, 2024 End: October 09, 2024 Team Status: Active Member Role/Relationship Status Dates Dr. Ramiro Rosa MD Primary [...] Other Provider Active Start: October 09, 2024 Team Status: Inactive Member Role/Relationship Status Dates Dr. Ramiro Rosa MD Primary Care Provider Active Start: October 23, 2024 End: October 23, 2024 Dr. Salvador Rush MD Attending Provider Active Start: October 23, 2024 End: October 23, 2024 Dr. Salvador Rush MD Referring Provider Active Start: October 23, 2024 End: October 23, 2024 Team Status: Inactive Member Role/Relationship Status Dates Dr. Ramiro Rosa MD Primary Care Provider Active Start: October 30, 2024 End: October 30, 2024 Dr. Salvador Rush MD Attending Provider Active Start: October 30, 2024 End: October 30, 2024 Dr. Salvador Rush MD Referring Provider Active Start: October 30, 2024 End: October 30, 2024 Source Comments (unrecognize d section and content) In the event this informatio n is protected by the Federal Confidentiality of Alcohol and Drug Abuse Patient Records regulations: The Federal rules restrict any use of the information to criminally investigate or prosecute any alcohol or drug abuse patient.[facility] the event this information is protected by the Federal Confidentiality of Alcohol and Drug Abuse Patient Records regulations: The Federal rules restrict any use of the information to criminally investigate or prosecute any alcohol or drug abuse patient.[facility] the event this information is protected by the Federal Confidentiality of Alcohol and Drug Abuse Patient Records regulations: The Federal rules restrict any use of the information to criminally investigate or prosecute any alcohol or drug abuse patient.[facility] the event this information is protected by the Federal Confidentiality of Alcohol and Drug Abuse Patient Records regulations: The Federal rules restrict any use of the information to criminally investigate or prosecute any alcohol or drug abuse patient.[facility] (unrecognized sect ion and content) No Status Records FoundNo Status Records FoundNo Status Records Found INFORMATION SOURCE (unrecogn ized section and content) DATE CREATED AUTHOR 10/11/2024 [facility] DATE CREATED AUTHOR AUTHOR'S ORGANIZ ATION 11/05/2024 [facility] DATE CREATED AUTHOR AUTHOR'S ORGANIZ ATION 11/06/2024 [facility] FOR RECORDS PERTAINING TO PATIENTS WHO [...] BE BASED ON THE PRIMARY CLINICAL RECORDS. [facility] [employer] [facility]. provides no warranty or guarantee of the accuracy or completeness of information in this document.
[2024-11-13 08:44] LABS: Hematocrit 35.4 % (40-54); Hemoglobin 11.9 g/dL (13.0-16.5); Immature Granulocytes Count 0.050 X10^3/uL (0.0-0.0); Mean Corp Hgb Conc 33.6 g/dL (32-36); Mean Corpuscular Volume 85.7 fL (80-94); Mean Platelet Vol. 8.3 fl (6.2-12.0); NRBC Flagged by Analyzer 0 % (0-5); Platelet Count 496 K/mm3 (150-450); RBC Distribution Width CV 13.5 % (11.6-14.6); RBC Distribution Width SD 42.4 fl (35.1-43.9); Red Blood Count 4.13 M/mm3 (4.6-6.2); White Blood Count 6.9 K/mm3 (4.4-11.0)
[2024-11-13 09:13] LABS: Anion Gap 10 (5-15); BUN 16 mg/dL (4-19); BUN/Creat Ratio 15.6 RATIO (10-20); Calcium,Total 9.7 mg/dL (7.6-11.0); Carbon Dioxide 23.5 mmol/L (21.0-32.0); Chloride 102 mmol/L (98-108); Estimated Creatinine Clearance 93.00 ml/min (50-250); Glucose 115 mg/dL (70-99); Potassium 3.8 mmol/L (3.3-5.1)
[2024-11-13 09:21] LABS: Mucous, Urine 0 SEEN /hpf (<or=2+); Squamous Epithelial Cells - UA 0 SEEN /hpf (0-5)
[2024-11-13 09:26] LABS: Color, Urine Yellow (Yellow); Glucose, Dipstick Normal (Normal); Ketone-Dipstick Negative (Negative); Leukocyte Esterase-Dipstick 100 /ul (Negative); Nitrite-Dipstick Negative (Negative); Occult Blood-Urine 250 /ul (Negative); Protein-Dipstick 30 mg/dl (Negative); Specific Gravity, Urine 1.015 (1.002-1.030); Urine Bilirubin Dipstick Negative (Negative)
[2024-11-13 09:33] VITALS: BP 109/76; PULSE 71; RESP 18; O2SAT 97
[2024-11-13 09:33] LABS: Red Blood Cells-Urine 10-25 SEEN /hpf (0-5)
[2024-11-13] MEDS: 0.9% Normal Saline (1000mL) 1,000 ML 999 ML IV (09:36)
[2024-11-13 10:47] VITALS: BP 121/79; PULSE 64; RESP 18; TEMP 36.4; O2SAT 98
== END 2024-11-13 11:01 | disposition home or self-care (01) ==
PROVIDERS: Emergency Provider Surgery; PCP Family Medicine; Visit Provider Surgery
DX: R31.9 Hematuria, unspecified (principal); N39.0 Urinary tract infection, site not specified; E78.5 Hyperlipidemia, unspecified; I10 Essential (primary) hypertension; Z79.899 Other long term (current) drug therapy; F41.9 Anxiety disorder, unspecified; Z87.442 Personal history of urinary calculi
CPT/HCPCS: 74176; 80048; 81001; 85025; 87077; 87086; 87088; 87186; 96360; 99283

== ENCOUNTER 2024-12-04 12:07 | Observation (INO) | payer MEDICAID, SELFPAY ==
--- NOTE | 2024-11-27 17:53 | PAT.ANESEVAL ---
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 When Was Last Pacemaker Check QUESTION #4 FULL TEXT: You/Your Family Experience fever (hyperthermia) with Anesthesia Last Oral Intake Last Oral intake: Last Oral Intake NPO since Meds taken in AM with sips of water? Meds patient instructed to take am of surgery PONV PONV - library media specialist: PONV - library media specialist Female No 11/27/24 10:42 HX of Motion Sickness No 11/27/24 10:42 HX of N/V After Surgery No 11/27/24 10:42 Non-Smoker Yes 11/27/24 10:42 Duration of Surgery greater Yes 11/27/24 10:42 than 60 minutes Number of Risk Factors 2 11/27/24 10:42 PONV Score Moderate Risk 11/27/24 10:42 Height & Weight Height & Weight: Anesthesia: Height & Weight Height 5 ft 5 in 11/13/24 07:33 Respiratory Assessment Respiratory Assessment - library media specialist: Respiratory Tract Infection Hx - library media specialist Hx Respiratory Tract Infection No 11/27/24 10:42 STOP Sleep Apnea STOP Sleep Apnea - library media specialist: STOP Sleep Apnea - library media specialist Hx Hypertension Yes: CONTROLLED WITH MED 11/27/24 10:42 Hx Sleep Apnea No 11/27/24 10:42 CPAP BIPAP Do you snore loudly (louder Yes 11/27/24 10:42 than talking or can be heard Do you often feel tired/ Yes 11/27/24 10:42 fatigued/ sleepy during daytime? Has anyone observed you stop No 11/27/24 10:42 breathing during sleep? STOP Results Positive 11/27/24 10:42 QUESTION #5 FULL TEXT : Do you snore loudly (louder than talking or can be heard through closed doors)? 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 Specify any problems Hx of Preganancy in last 3 N/A 11/27/24 10:42 Months Nurse Filling Out Transfusion DSCHRIBER 11/27/24 10:42 & Questions: Date: 11/27/24 11/27/24 10:42 Time: 10:43 11/27/24 10:42 Patient unable to answer at this time (ie. confused, unrespo /Reproduction History /Reproductive History - library media specialist: /Reproductive Hx- library media specialist Hx Now No 11/27/24 10:42 Gestational Age (in weeks): EDC: Hx Hx Para Hx Section SAB No 11/27/24 10:42 PFSH Medical History (Updated 11/27/24 @ 10:48 by Debora Wong) Bladder disease Anxiety Lives in [facility]pc Arthritis Back pain Non-smoker Shortness of breath on exertion Intellectual disability Recurrent major depression in full remission Hyperlipidemia Essential hypertension Urinary tract infection with hematuria Home Medications ?Medication ?Instructions ?Recorded ?Last Taken ?Type fenofibrate nanocrystallized 145 145 mg PO DAILY 07/08/18 10/23/24 History mg tablet folic acid 400 mcg tablet 0.4 mg PO DAILY@0800 07/08/18 10/22/24 History garlic 200 mg tablet 350 mg PO DAILY 07/08/18 10/22/24 History loratadine 10 mg capsule (Claritin 10 mg PO DAILY 07/08/18 10/22/24 History Liqui-Gel) omega-3 fatty acids-fish oil 340 3 ea PO DAILY 07/08/18 10/22/24 History mg-1,000 mg capsule (Fish Oil) ammonium lactate 12 % topical cream 1 applic topical DAILY 05/29/23 10/22/24 History atorvastatin 40 mg tablet 40 mg PO DAILY 05/29/23 10/22/24 History clonidine HCl 0.2 mg tablet 0.2 mg PO BID 05/29/23 10/30/24 History doxazosin 2 mg tablet 2 mg PO QHS 05/29/23 10/22/24 History fluticasone propionate 50 2 spray intranasal DAILY 05/29/23 10/22/24 History mcg/actuation nasal spray,suspension (Allergy Relief (fluticasone)) losartan 100 mg tablet 100 mg PO DAILY 05/29/23 10/30/24 History multivitamin-ferrous 1 tab PO DAILY 05/29/23 10/22/24 History fumarate-folic acid 18 mg-400 mcg tablet (Certavite-Antioxidant) nabumetone 500 mg tablet 500 mg PO BID PRN pain 05/29/23 Unknown History quetiapine 150 mg tablet,extended 100 mg PO 0700 05/29/23 10/30/24 History release 24 hr neomycin-bacitracn Zn-polymyx 3.5 1 applic topical TID PRN dry skin 11/05/23 10/22/24 History mg-400 unit-5,000 unit/gram top oint (Neosporin (izb-seb-qqtyb)) oxcarbazepine 600 mg tablet 600 mg PO BID 11/05/23 10/30/24 History clonazepam 0.5 mg tablet 0.25 mg PO TID 10/15/24 10/30/24 History quetiapine 200 mg tablet 200 mg PO 1600 10/15/24 10/22/24 History finasteride 5 mg tablet (Proscar) 5 mg PO DAILY #30 tabs 10/30/24 Unknown Rx tamsulosin 0.4 mg capsule (Flomax) 0.4 mg PO QHS #30 caps 10/30/24 Unknown Rx Allergy/AdvReac Type Severity Reaction Status Date / Time risperidone (From Risperdal) Allergy ANXIETY Verified 11/27/24 10:38 Family History Mother Hyperlipidemia Father Hyperlipidemia Surgical History (Updated 11/27/24 @ 10:48 by Debora Wong) Hx of colonoscopy Hx of cystoscopy Hx of cystoscopy History of testicular surgery History of ankle surgery Social History household members: other details: Lives with others in residential home number of children: 0 Smoking Status: Never smoker alcohol intake: never substance use type: does not use Audit: Pertinent Findings Pertinent Findings EKG Perinent findings: 10/09/2024. Normal sinus rhythm. Incomplete right bundle branch block. Compared to EKG of September 28, 2010, ST no longer depressed and lateral leads. T wave inversion is no longer evident in lateral leads. Recommendation Anesthesia Recommendation Anesthesia recommendation: OPTIMIZED for anesthesia
--- NOTE | 2024-11-27 17:53 | PAT.ANESEVAL ---
Pre-Assessment Diagnosis/Proposed Procedure Planned Operative Procedure(s): TURP Anesthesia History Anesthesia History - rn training: Anesthesia History - rn training Hx Hospitalization Yes: 10/09/24 KIDNEY STONE 11/27/24 10:42 Any Problems With Anesthesia No 11/27/24 10:42 Cholinesterase deficiency No 11/27/24 10:42 You/Your Family Experience No 11/27/24 10:42 fever (hyperthermia) with Relationship Recent Exposure to Contagious No 10/30/24 11:29 Disease Does patient have nerve No 11/27/24 10:42 stimulator Patient instructed to have device shut off --Does patient have Pacemaker or ICD? When Was Last Pacemaker Check QUESTION #4 FULL TEXT: You/Your Family Experience fever (hyperthermia) with Anesthesia Last Oral Intake Last Oral intake: Last Oral Intake NPO since Meds taken in AM with sips of water? Meds patient instructed to take am of surgery PONV PONV - rn training: PONV - rn training Female No 11/27/24 10:42 HX of Motion Sickness No 11/27/24 10:42 HX of N/V After Surgery No 11/27/24 10:42 Non-Smoker Yes 11/27/24 10:42 Duration of Surgery greater Yes 11/27/24 10:42 than 60 minutes Number of Risk Factors 2 11/27/24 10:42 PONV Score Moderate Risk 11/27/24 10:42 Height & Weight Height & Weight: Anesthesia: Height & Weight Height 5 ft 5 in 11/13/24 07:33 Respiratory Assessment Respiratory Assessment - rn training: Respiratory Tract Infection Hx - rn training Hx Respiratory Tract Infection No 11/27/24 10:42 STOP Sleep Apnea STOP Sleep Apnea - rn training: STOP Sleep Apnea - rn training Hx Hypertension Yes: CONTROLLED WITH MED 11/27/24 10:42 Hx Sleep Apnea No 11/27/24 10:42 CPAP BIPAP Do you snore loudly (louder Yes 11/27/24 10:42 than talking or can be heard Do you often feel tired/ Yes 11/27/24 10:42 fatigued/ sleepy during daytime? Has anyone observed you stop No 11/27/24 10:42 breathing during sleep? STOP Results Positive 11/27/24 10:42 QUESTION #5 FULL TEXT : Do you snore loudly (louder than talking or can be heard through closed doors)? 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 Specify any problems Hx of Preganancy in last 3 N/A 11/27/24 10:42 Months Nurse Filling Out Transfusion DSCHRIBER 11/27/24 10:42 & Questions: Date: 11/27/24 11/27/24 10:42 Time: 10:43 11/27/24 10:42 Patient unable to answer at this time (ie. confused, unrespo /Reproduction History /Reproductive History - rn training: /Reproductive Hx- rn training Hx Now No 11/27/24 10:42 Gestational Age (in weeks): EDC: Hx Hx Para Hx Section SAB No 11/27/24 10:42 PFSH Medical History (Updated 11/27/24 @ 10:48 by Debora Wong) Bladder disease Anxiety Lives in [facility]dc Arthritis Back pain Non-smoker Shortness of breath on exertion Intellectual disability Recurrent major depression in full remission Hyperlipidemia Essential hypertension Urinary tract infection with hematuria Home Medications ?Medication ?Instructions ?Recorded ?Last Taken ?Type fenofibrate nanocrystallized 145 145 mg PO DAILY 07/08/18 10/23/24 History mg tablet folic acid 400 mcg tablet 0.4 mg PO DAILY@0800 07/08/18 10/22/24 History garlic 200 mg tablet 350 mg PO DAILY 07/08/18 10/22/24 History loratadine 10 mg capsule (Claritin 10 mg PO DAILY 07/08/18 10/22/24 History Liqui-Gel) omega-3 fatty acids-fish oil 340 3 ea PO DAILY 07/08/18 10/22/24 History mg-1,000 mg capsule (Fish Oil) ammonium lactate 12 % topical cream 1 applic topical DAILY 05/29/23 10/22/24 History atorvastatin 40 mg tablet 40 mg PO DAILY 05/29/23 10/22/24 History clonidine HCl 0.2 mg tablet 0.2 mg PO BID 05/29/23 10/30/24 History doxazosin 2 mg tablet 2 mg PO QHS 05/29/23 10/22/24 History fluticasone propionate 50 2 spray intranasal DAILY 05/29/23 10/22/24 History mcg/actuation nasal spray,suspension (Allergy Relief (fluticasone)) losartan 100 mg tablet 100 mg PO DAILY 05/29/23 10/30/24 History multivitamin-ferrous 1 tab PO DAILY 05/29/23 10/22/24 History fumarate-folic acid 18 mg-400 mcg tablet (Certavite-Antioxidant) nabumetone 500 mg tablet 500 mg PO BID PRN pain 05/29/23 Unknown History quetiapine 150 mg tablet,extended 100 mg PO 0700 05/29/23 10/30/24 History release 24 hr neomycin-bacitracn Zn-polymyx 3.5 1 applic topical TID PRN dry skin 11/05/23 10/22/24 History mg-400 unit-5,000 unit/gram top oint (Neosporin ([id number]-tci-cxpsp)) oxcarbazepine 600 mg tablet 600 mg PO BID 11/05/23 10/30/24 History clonazepam 0.5 mg tablet 0.25 mg PO TID 10/15/24 10/30/24 History quetiapine 200 mg tablet 200 mg PO 1600 10/15/24 10/22/24 History finasteride 5 mg tablet (Proscar) 5 mg PO DAILY #30 tabs 10/30/24 Unknown Rx tamsulosin 0.4 mg capsule (Flomax) 0.4 mg PO QHS #30 caps 10/30/24 Unknown Rx Allergy/AdvReac Type Severity Reaction Status Date / Time risperidone (From Risperdal) Allergy ANXIETY Verified 11/27/24 10:38 Family History Mother Hyperlipidemia Father Hyperlipidemia Surgical History (Updated 11/27/24 @ 10:48 by Debora Wong) Hx of colonoscopy Hx of cystoscopy Hx of cystoscopy History of testicular surgery History of ankle surgery Social History household members: other details: Lives with others in residential home number of children: 0 Smoking Status: Never smoker alcohol intake: never substance use type: does not use Audit: Pertinent Findings Pertinent Findings EKG Perinent findings: 10/09/2024. Normal sinus rhythm. Incomplete right bundle branch block. Compared to EKG of September 28, 2010, ST no longer depressed and lateral leads. T wave inversion is no longer evident in lateral leads. Recommendation Anesthesia Recommendation Anesthesia recommendation: OPTIMIZED for anesthesia
[2024-12-04] VITALS (14 sets, daily range): BP systolic 80–142; BP diastolic 60–101; PULSE 73–117; RESP 16–20; TEMP 36.1–37; O2SAT 93–98; BMI 30.4
--- NOTE | 2024-12-04 06:58 | HP.PCM_ITS ---
[facility] - General General Date of Service: 12/04/24 Chief Complaint: BPH with obstruction HPI Narrative CHAN ACE, is a 44 M who presents for a transurethral resection of the prostate for obstruction he has a very large obstructing prostate and we are to proceed with a TURP PENDING SALE TO [facility] Medical History (Updated 11/27/24 @ 10:48 by Debora Wong) Bladder disease Anxiety Lives in [place] Arthritis Back pain Non-smoker Shortness of breath on exertion Intellectual disability Recurrent major depression in full remission Hyperlipidemia Essential hypertension Urinary tract infection with hematuria Home Medications ?Medication ?Instructions ?Recorded ?Last Taken ?Type fenofibrate nanocrystallized 145 145 mg PO DAILY 07/0810/23/24 History mg tablet folic acid 400 mcg tablet 0.4 mg PO DAILY@0800 9 10/22/24 History garlic 200 mg tablet 350 mg PO DAILY 07/08/18 History loratadine 10 mg capsule (Claritin 10 mg PO DAILY 09/2110/22/24 History Liqui-Gel) omega-3 fatty acids-fish oil 340 3 ea PO DAILY 9 10/22/24 History mg-1,000 mg capsule (Fish Oil) ammonium lactate 12 % topical cream 1 applic topical D AILY 05/29/23 10/22/24 History atorvastatin 40 mg tablet 40 mg PO DAILY 05/29/2310/04 History clonidine HCl 0.2 mg tablet 0.2 mg PO BID 05/29/23 History doxazosin 2 mg tablet 2 mg PO QHS 05/29/23 5 History fluticasone propionate 50 2 spray intranasal DAILY 10/22/24 History mcg/actuation nasal spray,suspension (Allergy Relief (fluticasone)) losartan 100 mg tablet 100 mg PO DAILY 05/29/23 History multivitamin-ferrous 1 tab PO DAILY 05/29/2310/04 History fumarate-folic acid 18 mg-400 mcg tablet (Certavite-Antioxidant) nabumetone 500 mg tablet 500 mg PO BID PRN pain 05/29 Unknown History quetiapine 150 mg tablet,extended 100 mg PO 0700 05/2910/30/24 History release 24 hr neomycin-bacitracn Zn-polymyx 3.5 1 applic topical TID PRN dry skin 11/05/23 10/22/24 History mg-400 unit-5,000 unit/gram top oint (Neosporin ([id number]-[id number])) oxcarbazepine 600 mg tablet 600 mg PO BID 11/05/23 History clonazepam 0.5 mg tablet 0.25 mg PO TID 10/15/2410/05 History quetiapine 200 mg tablet 200 mg PO 1600 10/15/2410/04 History finasteride 5 mg tablet (Proscar) 5 mg PO DAILY #30 ta bs 10/30/24 Unknown Rx tamsulosin 0.4 mg capsule (Flomax) 0.4 mg PO QHS #30 c aps 10/30/24 Unknown Rx Allergy/AdvReac Type Severity Reaction Status Date / Time risperidone (From Risperdal) Allergy ANXIETY Verified 11/27/24 10:38 Family History Mother Hyperlipidemia Father Hyperlipidemia Surgical History (Updated 11/27/24 @ 10:48 by Debora Wong) Hx of colonoscopy Hx of cystoscopy Hx of cystoscopy History of testicular surgery History of ankle surgery Social History household members: other details: Lives with others in residential home number of children: 0 Smoking Status: Never smoker alcohol intake: never substance use type: does not use
--- NOTE | 2024-12-04 06:58 | HP.PCM_ITS ---
[facility] - General General Date of Service: 12/04/24 Chief Complaint: BPH with obstruction HPI Narrative CHAN ACE, is a 44 M who presents for a transurethral resection of the prostate for obstruction he has a very large obstructing prostate and we are to proceed with a TURP [facility] Medical History (Updated 11/27/24 @ 10:48 by Debora Wong) Bladder disease Anxiety Lives in [facility] Arthritis Back pain Non-smoker Shortness of breath on exertion Intellectual disability Recurrent major depression in full remission Hyperlipidemia Essential hypertension Urinary tract infection with hematuria Home Medications ?Medication ?Instructions ?Recorded ?Last Taken ?Type fenofibrate nanocrystallized 145 145 mg PO DAILY 07/0810/23/24 History mg tablet folic acid 400 mcg tablet 0.4 mg PO DAILY@0800 9 10/22/24 History garlic 200 mg tablet 350 mg PO DAILY 07/08/18 History loratadine 10 mg capsule (Claritin 10 mg PO DAILY 09/2110/22/24 History Liqui-Gel) omega-3 fatty acids-fish oil 340 3 ea PO DAILY 9 10/22/24 History mg-1,000 mg capsule (Fish Oil) ammonium lactate 12 % topical cream 1 applic topical D AILY 05/29/23 10/22/24 History atorvastatin 40 mg tablet 40 mg PO DAILY 05/29/2310/04 History clonidine HCl 0.2 mg tablet 0.2 mg PO BID 05/29/23 History doxazosin 2 mg tablet 2 mg PO QHS 05/29/23 5 History fluticasone propionate 50 2 spray intranasal DAILY 10/22/24 History mcg/actuation nasal spray,suspension (Allergy Relief (fluticasone)) losartan 100 mg tablet 100 mg PO DAILY 05/29/23 History multivitamin-ferrous 1 tab PO DAILY 05/29/2310/04 History fumarate-folic acid 18 mg-400 mcg tablet (Certavite-Antioxidant) nabumetone 500 mg tablet 500 mg PO BID PRN pain 05/29 Unknown History quetiapine 150 mg tablet,extended 100 mg PO 0700 05/2910/30/24 History release 24 hr neomycin-bacitracn Zn-polymyx 3.5 1 applic topical TID PRN dry skin 11/05/23 10/22/24 History mg-400 unit-5,000 unit/gram top oint (Neosporin ([id number])) oxcarbazepine 600 mg tablet 600 mg PO BID 11/05/23 History clonazepam 0.5 mg tablet 0.25 mg PO TID 10/15/2410/05 History quetiapine 200 mg tablet 200 mg PO 1600 10/15/2410/04 History finasteride 5 mg tablet (Proscar) 5 mg PO DAILY #30 ta bs 10/30/24 Unknown Rx tamsulosin 0.4 mg capsule (Flomax) 0.4 mg PO QHS #30 c aps 10/30/24 Unknown Rx Allergy/AdvReac Type Severity Reaction Status Date / Time risperidone (From Risperdal) Allergy ANXIETY Verified 11/27/24 10:38 Family History Mother Hyperlipidemia Father Hyperlipidemia Surgical History (Updated 11/27/24 @ 10:48 by Debora Wong) Hx of colonoscopy Hx of cystoscopy Hx of cystoscopy History of testicular surgery History of ankle surgery Social History household members: other details: Lives with others in residential home number of children: 0 Smoking Status: Never smoker alcohol intake: never substance use type: does not use
--- NOTE | 2024-12-04 06:58 | PCM.HP.STD ---
[facility] - General General Date of Service: 12/04/24 Chief Complaint: BPH with obstruction HPI Narrative CHAN ACE, is a 44 M who presents for a transurethral resection of the prostate for obstruction he has a very large obstructing prostate and we are to proceed with a TUR[facility] Medical History (Updated 11/27/24 @ 10:48 by Debora Wong) Bladder disease Anxiety Lives in [facility] Arthritis Back pain Non-smoker Shortness of breath on exertion Intellectual disability Recurrent major depression in full remission Hyperlipidemia Essential hypertension Urinary tract infection with hematuria Home Medications ?Medication ?Instructions ?Recorded ?Last Taken ?Type fenofibrate nanocrystallized 145 145 mg PO DAILY 07/08/18 10/23/24 History mg tablet folic acid 400 mcg tablet 0.4 mg PO DAILY@0800 07/08/18 10/22/24 History garlic 200 mg tablet 350 mg PO DAILY 07/08/18 10/22/24 History loratadine 10 mg capsule (Claritin 10 mg PO DAILY 07/08/18 10/22/24 History Liqui-Gel) omega-3 fatty acids-fish oil 340 3 ea PO DAILY 07/08/18 10/22/24 History mg-1,000 mg capsule (Fish Oil) ammonium lactate 12 % topical cream 1 applic topical DAILY 05/29/23 10/22/24 History atorvastatin 40 mg tablet 40 mg PO DAILY 05/29/23 10/22/24 History clonidine HCl 0.2 mg tablet 0.2 mg PO BID 05/29/23 10/30/24 History doxazosin 2 mg tablet 2 mg PO QHS 05/29/23 10/22/24 History fluticasone propionate 50 2 spray intranasal DAILY 05/29/23 10/22/24 History mcg/actuation nasal spray,suspension (Allergy Relief (fluticasone)) losartan 100 mg tablet 100 mg PO DAILY 05/29/23 10/30/24 History multivitamin-ferrous 1 tab PO DAILY 05/29/23 10/22/24 History fumarate-folic acid 18 mg-400 mcg tablet (Certavite-Antioxidant) nabumetone 500 mg tablet 500 mg PO BID PRN pain 05/29/23 Unknown History quetiapine 150 mg tablet,extended 100 mg PO 0700 05/29/23 10/30/24 History release 24 hr neomycin-bacitracn Zn-polymyx 3.5 1 applic topical TID PRN dry skin 11/05/23 10/22/24 History mg-400 unit-5,000 unit/gram top oint (Neosporin ([id number])) oxcarbazepine 600 mg tablet 600 mg PO BID 11/05/23 10/30/24 History clonazepam 0.5 mg tablet 0.25 mg PO TID 10/15/24 10/30/24 History quetiapine 200 mg tablet 200 mg PO 1600 10/15/24 10/22/24 History finasteride 5 mg tablet (Proscar) 5 mg PO DAILY #30 tabs 10/30/24 Unknown Rx tamsulosin 0.4 mg capsule (Flomax) 0.4 mg PO QHS #30 caps 10/30/24 Unknown Rx Allergy/AdvReac Type Severity Reaction Status Date / Time risperidone (From Risperdal) Allergy ANXIETY Verified 11/27/24 10:38 Family History Mother Hyperlipidemia Father Hyperlipidemia Surgical History (Updated 11/27/24 @ 10:48 by Debora Wong) Hx of colonoscopy Hx of cystoscopy Hx of cystoscopy History of testicular surgery History of ankle surgery Social History household members: other details: Lives with others in residential home number of children: 0 Smoking Status: Never smoker alcohol intake: never substance use type: does not use
--- NOTE | 2024-12-04 06:58 | PCM.HP.STD ---
[facility] - General General Date of Service: 12/04/24 Chief Complaint: BPH with obstruction HPI Narrative CHAN ACE, is a 44 M who presents for a transurethral resection of the prostate for obstruction he has a very large obstructing prostate and we are to proceed with a TURP [facility] Medical History (Updated 11/27/24 @ 10:48 by Debora Wong) Bladder disease Anxiety Lives in care home Arthritis Back pain Non-smoker Shortness of breath on exertion Intellectual disability Recurrent major depression in full remission Hyperlipidemia Essential hypertension Urinary tract infection with hematuria Home Medications ?Medication ?Instructions ?Recorded ?Last Taken ?Type fenofibrate nanocrystallized 145 145 mg PO DAILY 07/08/18 10/23/24 History mg tablet folic acid 400 mcg tablet 0.4 mg PO DAILY@0800 07/08/18 10/22/24 History garlic 200 mg tablet 350 mg PO DAILY 07/08/18 10/22/24 History loratadine 10 mg capsule (Claritin 10 mg PO DAILY 07/08/18 10/22/24 History Liqui-Gel) omega-3 fatty acids-fish oil 340 3 ea PO DAILY 07/08/18 10/22/24 History mg-1,000 mg capsule (Fish Oil) ammonium lactate 12 % topical cream 1 applic topical DAILY 05/29/23 10/22/24 History atorvastatin 40 mg tablet 40 mg PO DAILY 05/29/23 10/22/24 History clonidine HCl 0.2 mg tablet 0.2 mg PO BID 05/29/23 10/30/24 History doxazosin 2 mg tablet 2 mg PO QHS 05/29/23 10/22/24 History fluticasone propionate 50 2 spray intranasal DAILY 05/29/23 10/22/24 History mcg/actuation nasal spray,suspension (Allergy Relief (fluticasone)) losartan 100 mg tablet 100 mg PO DAILY 05/29/23 10/30/24 History multivitamin-ferrous 1 tab PO DAILY 05/29/23 10/22/24 History fumarate-folic acid 18 mg-400 mcg tablet (Certavite-Antioxidant) nabumetone 500 mg tablet 500 mg PO BID PRN pain 05/29/23 Unknown History quetiapine 150 mg tablet,extended 100 mg PO 0700 05/29/23 10/30/24 History release 24 hr neomycin-bacitracn Zn-polymyx 3.5 1 applic topical TID PRN dry skin 11/05/23 10/22/24 History mg-400 unit-5,000 unit/gram top oint (Neosporin (qed-gor-begrh)) oxcarbazepine 600 mg tablet 600 mg PO BID 11/05/23 10/30/24 History clonazepam 0.5 mg tablet 0.25 mg PO TID 10/15/24 10/30/24 History quetiapine 200 mg tablet 200 mg PO 1600 10/15/24 10/22/24 History finasteride 5 mg tablet (Proscar) 5 mg PO DAILY #30 tabs 10/30/24 Unknown Rx tamsulosin 0.4 mg capsule (Flomax) 0.4 mg PO QHS #30 caps 10/30/24 Unknown Rx Allergy/AdvReac Type Severity Reaction Status Date / Time risperidone (From Risperdal) Allergy ANXIETY Verified 11/27/24 10:38 Family History Mother Hyperlipidemia Father Hyperlipidemia Surgical History (Updated 11/27/24 @ 10:48 by Debora Wong) Hx of colonoscopy Hx of cystoscopy Hx of cystoscopy History of testicular surgery History of ankle surgery Social History household members: other details: Lives with others in residential home number of children: 0 Smoking Status: Never smoker alcohol intake: never substance use type: does not use
[2024-12-04] MEDS: Lactated Ringers 1,000 ML 15 ML IV (09:57)
--- NOTE | 2024-12-04 10:22 | PRE.ANES_ITS ---
ASA Classification* ASA Classification ASA Classification: 3 Assessment & Plan Anesthesia* Anesthesia Assessment Anesthesia Assessment: Discussed sedation and/or anesthesia options, risks, benefits, and alternatives with patient/parents/legal guardian/POA. Questions invited. The patient/parents/legal guardian/POA seems to understand and agrees to proceed with anesthesia plan. Reviewed the physical assessment, medical history, allergy history and patient home medications list prior to surgery/procedure/anesthetic and documented any changes. Performed airway and anesthesia risk assessments. Anesthesia Type Anesthesia Type: General (Consider [place] scope if endotracheal intubation.) History Source History Obtained from:: Patient, Chart and Parent/ Guardian Anesthesia Focused Assessment* Temperature: 97.1 F Pulse Rate: 81 Blood Pressure: 105/70 Respiratory Rate: 16 Pulse Ox: 97 Oxygen Delivery Method: Room Air Airway Assessment Mouth opens: >3 cm Mallampati Score: IV Teeth Condition: Intact Neck Range of motion (ROM): Limited ROM (Somewhat Decreased) Labs Anesthesia Preop lab: CBC WBC 6.9 K/mm3 (4.4-11.0) 11/13/24 08:40 11/13/24 RBC 4.13 M/mm3 (4.6-6.2) L 11/13/24 08:40 11/13/24 Hgb 11.9 g/dL (13.0-16.5) L 11/13/24 08:40 5 Hct 35.4 % (40-54) L 11/13/24 08:40 11/13/24 Plt Count 496 K/mm3 (150-450) H 11/13/24 08:40 11/13/24 CHEMISTRY Potassium 3.8 mmol/L (3.3-5.1) 11/13/24 08:40 11/13/24 Sodium 135 mmol/L (133-145) 11/13/24 08:40 11/13/24 BUN 16 mg/dL (4-19) 11/13/24 08:40 11/13/24 Creatinine 1.02 mg/dL (0.70-1.20) 11/13/24 08:40 11/13/24 Glucose 115 mg/dL (70-99) H 11/13/24 08:40 11/13/24 COAG Pre-Assessment Diagnosis/Proposed Procedure Planned Operative Procedure(s): TURP Anesthesia History 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 When Was Last Pacemaker Check QUESTION #4 FULL TEXT: You/Your Family Experience fever (hyperthermia) with Anesthesia Last Oral Intake Last Oral intake: Last Oral Intake NPO since 20:00 12/04/24 09:54 Meds taken in AM with sips of water? Meds patient instructed to take am of surgery PONV PONV - leadership development instructor: PONV - leadership development instructor Female No 11/27/24 10:42 HX of Motion Sickness No 11/27/24 10:42 HX of N/V After Surgery No 11/27/24 10:42 Non-Smoker Yes 11/27/24 10:42 Duration of Surgery greater Yes 11/27/24 10:42 than 60 minutes Number of Risk Factors 2 11/27/24 10:42 PONV Score Moderate Risk 11/27/24 10:42 Height & Weight Height & Weight: Anesthesia: Height & Weight Height 5 ft 5 in 12/04/24 09:54 Weight: 82.8 kg 12/04/24 09:54 Body Mass Index (BMI) 30.4 12/04/24 09:54 Respiratory Assessment Respiratory Assessment - leadership development instructor: Respiratory Tract Infection Hx - leadership development instructor Hx Respiratory Tract Infection No 11/27/24 10:42 STOP Sleep Apnea STOP Sleep Apnea - leadership development instructor: STOP Sleep Apnea - leadership development instructor Hx Hypertension Yes: CONTROLLED WITH MED 11/27/24 10:42 Hx Sleep Apnea No 11/27/24 10:42 CPAP BIPAP Do you snore loudly (louder Yes 11/27/24 10:42 than talking or can be heard Do you often feel tired/ Yes 11/27/24 10:42 fatigued/ sleepy during daytime? Has anyone observed you stop No 11/27/24 10:42 breathing during sleep? STOP Results Positive 11/27/24 10:42 QUESTION #5 FULL TEXT : Do you snore loudly (louder than talking or can be heard through closed doors)? 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 Specify any problems Hx of Preganancy in last 3 N/A 11/27/24 10:42 Months Nurse Filling Out Transfusion DSCHRIBER 11/27/24 10:42 & Questions: Date: 11/27/24 11/27/24 10:42 Time: 10:43 11/27/24 10:42 Patient unable to answer at this time (ie. confused, unrespo /Reproduction History /Reproductive History - leadership development instructor: /Reproductive Hx- leadership development instructor Hx Now No 11/27/24 10:42 Gestational Age (in weeks): EDC: Hx Hx Para Hx Section SAB No 11/27/24 10:42 Active Medications Active Medications: Current Medications Generic Name Dose Route Start Last Admin Trade Name Freq PRN Reason Stop Dose Admin Cefazolin Sodium 2 gm/ Sodium 110 mls @ 200 mls/hr 12/04/24 11:30 Chloride IV 12/04/24 12:02 INTRAOP ONE Lactated Ringer's 1,000 mls @ 15 mls/hr 12/04/24 09:45 12/04/24 09:57 IV 15 mls/hr .Q48H VIDHI Administration PFSH Medical History Bladder disease Anxiety [facility] Arthritis Back pain Non-smoker Shortness of breath on exertion Intellectual disability Recurrent major depression in full remission Hyperlipidemia Essential hypertension Urinary tract infection with hematuria Home Medications ?Medication ?Instructions ?Recorded ?Last Taken ?Type fenofibrate nanocrystallized 145 145 mg PO DAILY 07/0812/03/24 History mg tablet folic acid 400 mcg tablet 0.4 mg PO DAILY@0800 9 12/03/24 History garlic 200 mg tablet 350 mg PO DAILY 07/08/18 History loratadine 10 mg capsule (Claritin 10 mg PO DAILY 09/2112/03/24 History Liqui-Gel) omega-3 fatty acids-fish oil 340 3 ea PO DAILY 9 11/27/24 History mg-1,000 mg capsule (Fish Oil) ammonium lactate 12 % topical cream 1 applic topical D AILY 05/29/23 10/22/24 History atorvastatin 40 mg tablet 40 mg PO DAILY 05/29/2311/05 History clonidine HCl 0.2 mg tablet 0.2 mg PO BID 05/29/2305/30 History doxazosin 2 mg tablet 2 mg PO QHS 05/29/23 5 History fluticasone propionate 50 2 spray intranasal DAILY 12/03/24 History mcg/actuation nasal spray,suspension (Allergy Relief (fluticasone)) losartan 100 mg tablet 100 mg PO DAILY 05/29/2305/30 History multivitamin-ferrous 1 tab PO DAILY 05/29/2311/05 History fumarate-folic acid 18 mg-400 mcg tablet (Certavite-Antioxidant) nabumetone 500 mg tablet 500 mg PO BID PRN pain 05/29 Unknown History quetiapine 150 mg tablet,extended 100 mg PO 0700 05/2912/04/24 History release 24 hr neomycin-bacitracn Zn-polymyx 3.5 1 applic topical TID PRN dry skin 11/05/23 10/22/24 History mg-400 unit-5,000 unit/gram top oint (Neosporin ([id number])) oxcarbazepine 600 mg tablet 600 mg PO BID 11/05/2305/30 History clonazepam 0.5 mg tablet 0.25 mg PO TID 10/15/24 08/0 05/30 History quetiapine 200 mg tablet 200 mg PO 1600 10/15/24 07/3 05/30 History finasteride 5 mg tablet (Proscar) 5 mg PO DAILY #30 ta bs 10/30/24 12/03/24 Rx tamsulosin 0.4 mg capsule (Flomax) 0.4 mg PO QHS #30 c aps 10/30/24 12/03/24 Rx Allergy/AdvReac Type Severity Reaction Status Date / Time risperidone (From Risperdal) Allergy ANXIETY Verified 12/04/24 09:50 Family History Mother Hyperlipidemia Father Hyperlipidemia Surgical History Hx of colonoscopy Hx of cystoscopy Hx of cystoscopy History of testicular surgery History of ankle surgery Social History household members: other details: Lives with others in residential home number of children: 0 Smoking Status: Never smoker alcohol intake: never substance use type: does not use Review of Systems (Anesthesia) ROS Narrative System reviewed and no additional complaints, except as documented.
--- NOTE | 2024-12-04 10:22 | PRE.ANES_ITS ---
ASA Classification* ASA Classification ASA Classification: 3 Assessment & Plan Anesthesia* Anesthesia Assessment Anesthesia Assessment: Discussed sedation and/or anesthesia options, risks, benefits, and alternatives with patient/parents/legal guardian/POA. Questions invited. The patient/parents/legal guardian/POA seems to understand and agrees to proceed with anesthesia plan. Reviewed the physical assessment, medical history, allergy history and patient home medications list prior to surgery/procedure/anesthetic and documented any changes. Performed airway and anesthesia risk assessments. Anesthesia Type Anesthesia Type: General (Consider Jefferson scope if endotracheal intubation.) History Source History Obtained from:: Patient, Chart and Parent/ Guardian Anesthesia Focused Assessment* Temperature: 97.1 F Pulse Rate: 81 Blood Pressure: 105/70 Respiratory Rate: 16 Pulse Ox: 97 Oxygen Delivery Method: Room Air Airway Assessment Mouth opens: >3 cm Mallampati Score: IV Teeth Condition: Intact Neck Range of motion (ROM): Limited ROM (Somewhat Decreased) Labs Anesthesia Preop lab: CBC WBC 6.9 K/mm3 (4.4-11.0) 11/13/24 08:40 11/13/24 RBC 4.13 M/mm3 (4.6-6.2) L 11/13/24 08:40 11/13/24 Hgb 11.9 g/dL (13.0-16.5) L 11/13/24 08:40 5 Hct 35.4 % (40-54) L 11/13/24 08:40 11/13/24 Plt Count 496 K/mm3 (150-450) H 11/13/24 08:40 11/13/24 CHEMISTRY Potassium 3.8 mmol/L (3.3-5.1) 11/13/24 08:40 11/13/24 Sodium 135 mmol/L (133-145) 11/13/24 08:40 11/13/24 BUN 16 mg/dL (4-19) 11/13/24 08:40 11/13/24 Creatinine 1.02 mg/dL (0.70-1.20) 11/13/24 08:40 11/13/24 Glucose 115 mg/dL (70-99) H 11/13/24 08:40 11/13/24 COAG Pre-Assessment Diagnosis/Proposed Procedure Planned Operative Procedure(s): TURP Anesthesia History Anesthesia History - load dropper: Anesthesia History - load dropper Hx Hospitalization Yes: 10/09/24 KIDNEY STONE 11/27/24 10:42 Any Problems With Anesthesia No 11/27/24 10:42 Cholinesterase deficiency No 11/27/24 10:42 You/Your Family Experience No 11/27/24 10:42 fever (hyperthermia) with Relationship Recent Exposure to Contagious No 12/04/24 09:54 Disease Does patient have nerve No 11/27/24 10:42 stimulator Patient instructed to have device shut off --Does patient have Pacemaker No 12/04/24 09:54 or ICD? When Was Last Pacemaker Check QUESTION #4 FULL TEXT: You/Your Family Experience fever (hyperthermia) with Anesthesia Last Oral Intake Last Oral intake: Last Oral Intake NPO since 20:00 12/04/24 09:54 Meds taken in AM with sips of water? Meds patient instructed to take am of surgery PONV PONV - load dropper: PONV - load dropper Female No 11/27/24 10:42 HX of Motion Sickness No 11/27/24 10:42 HX of N/V After Surgery No 11/27/24 10:42 Non-Smoker Yes 11/27/24 10:42 Duration of Surgery greater Yes 11/27/24 10:42 than 60 minutes Number of Risk Factors 2 11/27/24 10:42 PONV Score Moderate Risk 11/27/24 10:42 Height & Weight Height & Weight: Anesthesia: Height & Weight Height 5 ft 5 in 12/04/24 09:54 Weight: 82.8 kg 12/04/24 09:54 Body Mass Index (BMI) 30.4 12/04/24 09:54 Respiratory Assessment Respiratory Assessment - load dropper: Respiratory Tract Infection Hx - load dropper Hx Respiratory Tract Infection No 11/27/24 10:42 STOP Sleep Apnea STOP Sleep Apnea - load dropper: STOP Sleep Apnea - load dropper Hx Hypertension Yes: CONTROLLED WITH MED 11/27/24 10:42 Hx Sleep Apnea No 11/27/24 10:42 CPAP BIPAP Do you snore loudly (louder Yes 11/27/24 10:42 than talking or can be heard Do you often feel tired/ Yes 11/27/24 10:42 fatigued/ sleepy during daytime? Has anyone observed you stop No 11/27/24 10:42 breathing during sleep? STOP Results Positive 11/27/24 10:42 QUESTION #5 FULL TEXT : Do you snore loudly (louder than talking or can be heard through closed doors)? 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 Specify any problems Hx of Preganancy in last 3 N/A 11/27/24 10:42 Months Nurse Filling Out Transfusion DSCHRIBER 11/27/24 10:42 & Questions: Date: 11/27/24 11/27/24 10:42 Time: 10:43 11/27/24 10:42 Patient unable to answer at this time (ie. confused, unrespo /Reproduction History /Reproductive History - load dropper: /Reproductive Hx- load dropper Hx Now No 11/27/24 10:42 Gestational Age (in weeks): EDC: Hx Hx Para Hx Section SAB No 11/27/24 10:42 Active Medications Active Medications: Current Medications Generic Name Dose Route Start Last Admin Trade Name Freq PRN Reason Stop Dose Admin Cefazolin Sodium 2 gm/ Sodium 110 mls @ 200 mls/hr 12/04/24 11:30 Chloride IV 12/04/24 12:02 INTRAOP ONE Lactated Ringer's 1,000 mls @ 15 mls/hr 12/04/24 09:45 12/04/24 09:57 IV 15 mls/hr .Q48H VIDHI Administration PFSH Medical History Bladder disease Anxiety Lives in assisted Arthritis Back pain Non-smoker Shortness of breath on exertion Intellectual disability Recurrent major depression in full remission Hyperlipidemia Essential hypertension Urinary tract infection with hematuria Home Medications ?Medication ?Instructions ?Recorded ?Last Taken ?Type fenofibrate nanocrystallized 145 145 mg PO DAILY 07/0812/03/24 History mg tablet folic acid 400 mcg tablet 0.4 mg PO DAILY@0800 9 12/03/24 History garlic 200 mg tablet 350 mg PO DAILY 07/08/18 History loratadine 10 mg capsule (Claritin 10 mg PO DAILY 09/2112/03/24 History Liqui-Gel) omega-3 fatty acids-fish oil 340 3 ea PO DAILY 9 11/27/24 History mg-1,000 mg capsule (Fish Oil) ammonium lactate 12 % topical cream 1 applic topical D AILY 05/29/23 10/22/24 History atorvastatin 40 mg tablet 40 mg PO DAILY 05/29/2311/05 History clonidine HCl 0.2 mg tablet 0.2 mg PO BID 05/29/2305/30 History doxazosin 2 mg tablet 2 mg PO QHS 05/29/23 5 History fluticasone propionate 50 2 spray intranasal DAILY 12/03/24 History mcg/actuation nasal spray,suspension (Allergy Relief (fluticasone)) losartan 100 mg tablet 100 mg PO DAILY 05/29/2305/30 History multivitamin-ferrous 1 tab PO DAILY 05/29/2311/05 History fumarate-folic acid 18 mg-400 mcg tablet (Certavite-Antioxidant) nabumetone 500 mg tablet 500 mg PO BID PRN pain 05/29 Unknown History quetiapine 150 mg tablet,extended 100 mg PO 0700 05/2912/04/24 History release 24 hr neomycin-bacitracn Zn-polymyx 3.5 1 applic topical TID PRN dry skin 11/05/23 10/22/24 History mg-400 unit-5,000 unit/gram top oint (Neosporin (lra-uth-lmbdt)) oxcarbazepine 600 mg tablet 600 mg PO BID 11/05/2305/30 History clonazepam 0.5 mg tablet 0.25 mg PO TID 10/15/24 08/0 05/30 History quetiapine 200 mg tablet 200 mg PO 1600 10/15/24 07/3 05/30 History finasteride 5 mg tablet (Proscar) 5 mg PO DAILY #30 ta bs 10/30/24 12/03/24 Rx tamsulosin 0.4 mg capsule (Flomax) 0.4 mg PO QHS #30 c aps 10/30/24 12/03/24 Rx Allergy/AdvReac Type Severity Reaction Status Date / Time risperidone (From Risperdal) Allergy ANXIETY Verified 12/04/24 09:50 Family History Mother Hyperlipidemia Father Hyperlipidemia Surgical History Hx of colonoscopy Hx of cystoscopy Hx of cystoscopy History of testicular surgery History of ankle surgery Social History household members: other details: Lives with others in residential home number of children: 0 Smoking Status: Never smoker alcohol intake: never substance use type: does not use Review of Systems (Anesthesia) ROS Narrative System reviewed and no additional complaints, except as documented.
--- NOTE | 2024-12-04 11:30 | PROS_PTH ---
PATIENT: CHAN ACE LOC: MS3 U#:[id number] AGE/SX: 44/M ROOM: [facility] [place] RE12/04/[address]: Dr. Salvador Rush MD : 1980 BED: 1 DIS: 12/05/2024 SPEC #: [id number] RECD: 12/04/24 14:10 STATUS: HUSSEIN CANALES #: [id number] LUNA: 12/04/24 11:[address]: Salvador Rush DEPT: SURGICAL PATHOLOGY RECD BY: Shawn Lopez ENTERED: 12/04/24 15:06 SP TYPE: TURP OTHR DR: Dr. Ramiro Sheets MD Tissues: A - Prostate, NOS Procedures: Surgery Specimen Level IV HEADER OPERATION: Cysto, transurethral resection prostate PRE-OP DIAGNOSIS: Benign prostatic hyperplasia with obstruction TISSUE SUBMITTED: A- Prostate tissue MICROSCOPIC DIAGNOSIS A. Prostate, transurethral resection: -Benign stromal and glandular hyperplasia with patchy acute inflammation. MICROSCOPIC DESCRIPTION Slides are reviewed. GROSS DESCRIPTION A. Received in formalin labeled with the patient's name and date of . Designated as prostate tissue is a 10.7 g, 5.0 x 4.6 x 1.3 cm aggregate of irregular, sands, rubbery and cauterized tissue fragments. Entirely submitted in 7 cassettes. [place] 12/04/2024 CPT:73277
--- NOTE | 2024-12-04 11:30 | PROS_PTH ---
PATIENT: CHAN ACE LOC: MS3 U#:[id number] AGE/SX: 44/M ROOM: [facility] [place] RE12/04/[address]: Dr. Salvador Rush MD : 1980 BED: 1 DIS: 12/05/2024 SPEC #: [id number] RECD: 12/04/24 14:10 STATUS: HUSSEIN CANALES #: [id number] LUNA: 12/04/24 11:[address]: Salvador Rush DEPT: SURGICAL PATHOLOGY RECD BY: Shawn Lopez ENTERED: 12/04/24 15:06 SP TYPE: TURP OTHR DR: Dr. Ramiro Sheets MD Tissues: A - Prostate, NOS Procedures: Surgery Specimen Level IV HEADER OPERATION: Cysto, transurethral resection prostate PRE-OP DIAGNOSIS: Benign prostatic hyperplasia with obstruction TISSUE SUBMITTED: A- Prostate tissue MICROSCOPIC DIAGNOSIS A. Prostate, transurethral resection: -Benign stromal and glandular hyperplasia with patchy acute inflammation. MICROSCOPIC DESCRIPTION Slides are reviewed. GROSS DESCRIPTION A. Received in formalin labeled with the patient's name and date of . Designated as prostate tissue is a 10.7 g, 5.0 x 4.6 x 1.3 cm aggregate of irregular, sands, rubbery and cauterized tissue fragments. Entirely submitted in 7 cassettes. [place] 12/04/2024 CPT:63064
--- NOTE | 2024-12-04 12:10 | DCINST_ITS ---
Discharge Instructions DC O2, CPAP, BIPAP needs Home O2 Discharge instructions: No Dressing / Incision Discharge Activity: Return to Normal Activity and May Not Drive (while taking narcotic pain medications.) Dressing / Incision Call your doctor if you observe: Fever of 101 or Higher Follow Up Care Please Follow Up With: Salvador Rush MD When: Call [phone] for an appointment Test Results: Test results from this visit will be discussed in further detail at your follow- up appointment, if applicable. Discharge Plan Admission Primary Reason for Your Visit: Transurethral section of prostate Attending Provider: Slavador Rush Primary Care Provider: Ramiro Sheets Instructions Print Language: Romanian Discharge Orders/Prescriptions Prescriptions: Continued quetiapine 150 mg tablet extended release 24 hr 100 mg PO 0700 Patient Comments: TAKE 1 TABLET BY MOUTHEONCE DAILY AT 4PM ammonium lactate 12 % cream 1 applic topical DAILY atorvastatin 40 mg tablet 40 mg PO DAILY Certavite-Antioxidant 18-400 mg-mcg tablet 1 tab PO DAILY clonidine HCl 0.2 mg tablet 0.2 mg PO BID doxazosin 2 mg tablet 2 mg PO QHS fluticasone propionate [Allergy Relief (fluticasone)] 50 mcg/actuation spray,suspension 2 spray intranasal DAILY Rx Instructions: administer into each nostril losartan 100 mg tablet 100 mg PO DAILY nabumetone 500 mg tablet 500 mg PO BID PRN (Reason: pain) Patient Comments: take 1 tablet by mouth twice a day oxcarbazepine 600 mg tablet 600 mg PO BID Neosporin (acx-drc-hmgan) 3.5mg-400 unit- 5,000 unit/gram ointment 1 applic topical TID PRN (Reason: dry skin) Rx Instructions: To inside of nose for dry patches folic acid 0.4 MG tablet 0.4 mg PO DAILY@0800 fenofibrate nanocrystallized 145 MG tablet 145 mg PO DAILY Fish Oil 1 EACH capsule 3 ea PO DAILY Claritin Liqui-Gel 10 MG capsule 10 mg PO DAILY garlic 200 MG tablet 350 mg PO DAILY quetiapine 200 mg tablet 200 mg PO 1600 clonazepam 0.5 mg tablet 0.25 mg PO TID Discontinued tamsulosin [Flomax] 0.4 mg capsule 0.4 mg PO QHS Qty: 30 1RF finasteride [Proscar] 5 mg tablet 5 mg PO DAILY Qty: 30 1RF Referrals / Follow Up: Ramiro Sheets MD [Primary Care Provider] - Salvador Rush MD [Med Staff - Active Staff] - Disposition Disposition (needs filled in before D/C Order can be placed): Home, Self Care
--- NOTE | 2024-12-04 12:10 | PCM.OPRPT ---
Operative Report (Standard) Operative Information Date of Procedure: 12/04/24 Pre-Operative Diagnosis: BPH with obstruction Post-Operative Diagnosis: The same Surgery/Procedure Performed: Transurethral section of prostate animal nutrition consultant: No Type of Anesthesia: General RN Documented Start/Stop Times: Operation Date: 12/04/24 11:30 Case Time Into Pre-Op 12/04/24 09:38 Anesthesia Start 12/04/24 11:08 Into Room 12/04/24 11:08 Out of Pre-Op 12/04/24 11:08 Procedure Start 12/04/24 11:20 Procedure End 12/04/24 11:59 Procedure Start Time: 11:20 Procedure Stop Time: :59 Select all DRAINS/GRAFTS/IMPLANTS that apply: Drains Drain details: 22 [place] three-way Fisher Estimated Blood Loss: Minimal Specimen collected: Yes Description of specimen(s) removed: Prostate tissue Description of surgery: In the preoperative setting I discussed with the patient how the surgery would be done with expect afterwards. We discussed how a prostate resection is done and we discussed the risk of the surgery including, bleeding, infection, retrograde ejaculation, changes with ejaculation or intercourse,. We discussed the possibility that the resection of the prostate may not alleviate his urinary symptoms. We discussed the small risk of developing scar tissue along the urethral channel and strictures. We also discussed the chance of the prostate could grow back and he may need further surgery or treatment in the future for prostate problems. Patient was taken back to the operating room, timeout procedure was performed, he was identified and marked and placed on the operating room table. He underwent general anesthesia. He was placed in dorsolithotomy position. Penis and testicles were prepped and draped in usual sterile fashion. Went into the bladder using the visual obturator with a resectoscope. Once inside the bladder identified the right and left ureteral orifice. I then identified the prostate and the anatomy of the prostate. I marked out the area of the sphincter and the verumontanum was identified. I then proceeded with the prostate resection first resected the median lobe. And then resected the right lobe of the prostate. Then to resect the left lobe of the prostate. I then resected the apical tissue of the prostate. This was a complete resection of all obstructive tissue to improve voiding and relieve obstruction. I then made sure that there was no injury to the sphincter or the verumontanum was still intact. At the end of the resection all the chips were Ellik out of the bladder. I then identified the left and right ureteral orifice and these were confirmed to be in good position and effluxing and not injured. The resectoscope was removed, a 22 [place] catheter was placed into the bladder on continuous irrigation. And the urine was fairly light pink color and draining normally. He was taken back to the PACU in good condition. Surgical Findings: Obstructed prostate resected completely Complications Complications: No Admit VTE Documentation VTE Present on Admission: No VTE Mechan Device Prophylaxis: SCD's VTE Pharm Prophylaxis ordered?: No
--- NOTE | 2024-12-04 12:10 | PCM.OPRPT ---
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: No Type of Anesthesia: General RN Documented Start/Stop Times: Operation Date: 12/04/24 11:30 Case Time Into Pre-Op 12/04/24 09:38 Anesthesia Start 12/04/24 11:08 Into Room 12/04/24 11:08 Out of Pre-Op 12/04/24 11:08 Procedure Start 12/04/24 11:20 Procedure End 12/04/24 11:59 Procedure Start Time: 11:20 Procedure Stop Time: :59 Select all DRAINS/GRAFTS/IMPLANTS that apply: Drains Drain details: 22 [place] three-way Fisher Estimated Blood Loss: Minimal Specimen collected: Yes Description of specimen(s) removed: Prostate tissue Description of surgery: In the preoperative setting I discussed with the patient how the surgery would be done with expect afterwards. We discussed how a prostate resection is done and we discussed the risk of the surgery including, bleeding, infection, retrograde ejaculation, changes with ejaculation or intercourse,. We discussed the possibility that the resection of the prostate may not alleviate his urinary symptoms. We discussed the small risk of developing scar tissue along the urethral channel and strictures. We also discussed the chance of the prostate could grow back and he may need further surgery or treatment in the future for prostate problems. Patient was taken back to the operating room, timeout procedure was performed, he was identified and marked and placed on the operating room table. He underwent general anesthesia. He was placed in dorsolithotomy position. Penis and testicles were prepped and draped in usual sterile fashion. Went into the bladder using the visual obturator with a resectoscope. Once inside the bladder identified the right and left ureteral orifice. I then identified the prostate and the anatomy of the prostate. I marked out the area of the sphincter and the verumontanum was identified. I then proceeded with the prostate resection first resected the median lobe. And then resected the right lobe of the prostate. Then to resect the left lobe of the prostate. I then resected the apical tissue of the prostate. This was a complete resection of all obstructive tissue to improve voiding and relieve obstruction. I then made sure that there was no injury to the sphincter or the verumontanum was still intact. At the end of the resection all the chips were Ellik out of the bladder. I then identified the left and right ureteral orifice and these were confirmed to be in good position and effluxing and not injured. The resectoscope was removed, a 22 Ukrainian catheter was placed into the bladder on continuous irrigation. And the urine was fairly light pink color and draining normally. He was taken back to the PACU in good condition. Surgical Findings: Obstructed prostate resected completely Complications Complications: No Admit VTE Documentation VTE Present on Admission: No VTE Mechan Device Prophylaxis: SCD's VTE Pharm Prophylaxis ordered?: No
--- NOTE | 2024-12-04 12:13 | PCM.POST.ANE ---
Anesthesia: Postop Eval I Current Vital Signs Temperature: 97.2 F Pulse Rate: 83 Blood Pressure: 113/65 Respiratory Rate: 20 Pulse Ox: 94 Oxygen Delivery Method: Room Air Assessment Airway patent: Yes Spontaneous unlabored respirations: Yes Mental status: Asleep nausea: No Vomiting: No Anesthesia Complication: No Fluid Hydration Crystalloid volume administer (ml): 300 Total IV fluid infused: 300 Progress Note Anesthesia document: Postop Eval 1 completed: Yes
[2024-12-04] MEDS: 0.9% Normal Saline (1000mL) 1,000 ML 125 ML IV ×2 (14:34→23:16)
[2024-12-04] MEDS: Cefazolin 1 GM/50 ML BAG IV (18:24)
[2024-12-05 00:10] VITALS: BP 119/82; PULSE 109; RESP 16; TEMP 37.6; O2SAT 94
[2024-12-05] MEDS: Cefazolin 1 GM/50 ML BAG IV (02:02)
[2024-12-05 03:05] VITALS: BP 125/66; PULSE 109; RESP 16; TEMP 37.4; O2SAT 98
[2024-12-05 06:12] VITALS: BP 119/68; PULSE 93; RESP 16; TEMP 36.9; O2SAT 94
[2024-12-05 09:03] VITALS: PULSE 90
[2024-12-05 09:09] VITALS: BP 126/73; PULSE 92; RESP 18; TEMP 36.6; O2SAT 93
--- NOTE | 2024-12-05 09:15 | CASEMGMT ---
Social Work SW called pt's father/guardian(document showing parents are guardians in [facility]), confirmed plan will be for pt to return to long term at d/c. As per pt's father, the long term will pick pt up. SW called pt's pillowcase sewer from the long term, Iesha Cali. She confirms pt can return to long term at d/c and to just call her when pt is ready, they will pick pt up. SW inquired if pt can return if he has a Fisher catheter, she states she thinks so, to just let her know. She has spoken w/nursing however and was told it would be taken out today. Green sheet on the chart in anticipation of weekend discharge back to the long term. EARNESTINE [place]
--- NOTE | 2024-12-05 09:15 | CASEMGMT ---
Social Work SW called pt's father/guardian(document showing parents are guardians in [facility]), confirmed plan will be for pt to return to [facility] at d/c. As per pt's father, the penitentiary will pick pt up. SW called pt's pillowcase cutter from the penitentiary, Iesha Cali. She confirms pt can return to penitentiary at d/c and to just call her when pt is ready, they will pick pt up. SW inquired if pt can return if he has a Fisher catheter, she states she thinks so, to just let her know. She has spoken w/nursing however and was told it would be taken out today. Green sheet on the chart in anticipation of weekend discharge back to the penitentiary. EARNEST[place]
[2024-12-05] MEDS: Fluticasone 0.05% 1 SPRAY NASAL.SRY 2 SPRAY NASAL (09:21)
--- NOTE | 2024-12-05 09:38 | DS.PCM_ITS ---
Providers Date of Admission: 12/04/24 Date of Discharge: 12/05/24 Primary Care Physician: Dr. Ramiro Sheets MD Reason For Visit: Cysto,Transurethral Resection Prostate Medications at Discharge Home Medications fenofibrate nanocrystallized 145 mg tablet 145 mg PO DAILY 07/08/18 folic acid 400 mcg tablet 0.4 mg PO DAILY@0800 07/08/18 garlic 200 mg tablet 350 mg PO DAILY 07/08/18 loratadine 10 mg capsule (Claritin Liqui-Gel) 10 mg PO DAILY 07/08/18 omega-3 fatty acids-fish oil 340 mg-1,000 mg capsule (Fish Oil) 3 ea PO DAILY 07/08/18 ammonium lactate 12 % topical cream 1 applic topical DAILY 05/29/23 atorvastatin 40 mg tablet 40 mg PO DAILY 05/29/23 clonidine HCl 0.2 mg tablet 0.2 mg PO BID 05/29/23 doxazosin 2 mg tablet 2 mg PO QHS 05/29/23 fluticasone propionate 50 mcg/actuation nasal spray,suspension (Allergy Relief (fluticasone)) 2 spray intranasal DAILY 05/29/23 losartan 100 mg tablet 100 mg PO DAILY 05/29/23 multivitamin-ferrous fumarate-folic acid 18 mg-400 mcg tablet (Certavite- Antioxidant) 1 tab PO DAILY 05/29/23 nabumetone 500 mg tablet 500 mg PO BID PRN pain 05/29/23 neomycin-bacitracn Zn-polymyx 3.5 mg-400 unit-5,000 unit/gram top oint (Neosporin (gce-[id number])) 1 applic topical TID PRN dry skin 11/05/23 oxcarbazepine 600 mg tablet 600 mg PO BID 11/05/23 clonazepam 0.5 mg tablet 0.25 mg PO TID 10/15/24 quetiapine 200 mg tablet 200 mg PO 1600 bipolar 10/15/24 quetiapine 100 mg tablet 100 mg PO DAILY 12/04/24 quetiapine 200 mg tablet,extended release 24 hr 200 mg PO QHS 12/04/24 Hospital Course Operations TURP Weight / BMI Weight Weight: 82.8 kg Body Mass Index (BMI) 30.4 ABG / Lab / Microbiology Data Laboratory: Laboratory Results - last 24 hr 12/04/24 20:27: POC Glucose 143 H D/C Instructions Call your doctor if you observe: Fever of 101 or Higher DC O2, CPAP, BIPAP Needs Home O2 Discharge instructions: No Please Follow Up With: Salvador Rush MD When: Call [phone] for an appointment Meaningful Use Info Meaningful Use Meaningful Use Diagnoses (Choose all that apply): None applicable Discharge Plan Admission Admit Date/Time: 12/04/24 12:07 Primary Reason for Your Visit: Transurethral section of prostate Attending Provider: Salvador Rush Primary Care Provider: Ramiro Sheets Discharge Orders/Prescriptions Prescriptions: Continued ammonium lactate 12 % cream 1 applic topical DAILY atorvastatin 40 mg tablet 40 mg PO DAILY Certavite-Antioxidant 18-400 mg-mcg tablet 1 tab PO DAILY clonidine HCl 0.2 mg tablet 0.2 mg PO BID doxazosin 2 mg tablet 2 mg PO QHS fluticasone propionate [Allergy Relief (fluticasone)] 50 mcg/actuation spray,suspension 2 spray intranasal DAILY Rx Instructions: administer into each nostril losartan 100 mg tablet 100 mg PO DAILY nabumetone 500 mg tablet 500 mg PO BID PRN (Reason: pain) Patient Comments: take 1 tablet by mouth twice a day oxcarbazepine 600 mg tablet 600 mg PO BID Neosporin ([id number]-[id number]) 3.5mg-400 unit- 5,000 unit/gram ointment 1 applic topical TID PRN (Reason: dry skin) Rx Instructions: To inside of nose for dry patches folic acid 0.4 MG tablet 0.4 mg PO DAILY@0800 fenofibrate nanocrystallized 145 MG tablet 145 mg PO DAILY Fish Oil 1 EACH capsule 3 ea PO DAILY Claritin Liqui-Gel 10 MG capsule 10 mg PO DAILY garlic 200 MG tablet 350 mg PO DAILY quetiapine 200 mg tablet 200 mg PO 1600 clonazepam 0.5 mg tablet 0.25 mg PO TID Discontinued tamsulosin [Flomax] 0.4 mg capsule 0.4 mg PO QHS Qty: 30 1RF finasteride [Proscar] 5 mg tablet 5 mg PO DAILY Qty: 30 1RF No Action quetiapine 100 mg tablet 100 mg PO DAILY quetiapine 200 mg tablet extended release 24 hr 200 mg PO QHS Referrals / Follow Up: Ramiro Sheets MD [Primary Care Provider] - Salvador Rush MD [Med Staff - Active Staff] - Disposition Discharge Orders: Discharge Patient (Routine); Ordered 12/05/24 Ordered By: Dr. Salvador Rush
[2024-12-05] MEDS: Ensure Plus High Protein 120 ML LIQUID PO (11:48)
[2024-12-05 12:29] VITALS: BP 129/71; PULSE 93; RESP 16; TEMP 36.8; O2SAT 95
== END 2024-12-05 12:45 | disposition home or self-care (01) ==
LOC: SDC 13:01 → MS3 13:01
PROVIDERS: Admitting Provider Urology; PCP Family Medicine; Referring Provider Urology; Visit Provider Urology
PROC: 0VT08ZZ Resection of Prostate, Via Natural or Artificial Opening Endoscopic (ICD-10-PCS; CPT 52601; principal; 2024-12-04 11:20)
DX: N40.1 Benign prostatic hyperplasia with lower urinary tract symptoms (principal); E78.5 Hyperlipidemia, unspecified; I10 Essential (primary) hypertension; N13.8 Other obstructive and reflux uropathy; Z79.899 Other long term (current) drug therapy; F79 Unspecified intellectual disabilities
CPT/HCPCS: 52601; 00914; J2405; 82962; 88305; 96361; 96365; 96366; 96372; 96375; 97802; 99221; G0378

== ENCOUNTER → 2024-12-09 | Outpatient (CLI) | payer MEDICAID, SELFPAY ==
[2024-12-09 12:38] LABS: Hematocrit 38.0 % (40-54); Hemoglobin 12.3 g/dL (13.0-16.5); Mean Corp Hgb Conc 32.4 g/dL (32-36); Mean Corpuscular Volume 87.4 fL (80-94); Mean Platelet Vol. 9.0 fl (6.2-12.0); Platelet Count 511 K/mm3 (150-450); RBC Distribution Width CV 14.5 % (11.6-14.6); RBC Distribution Width SD 46.9 fl (35.1-43.9); Red Blood Count 4.35 M/mm3 (4.6-6.2); White Blood Count 10.2 K/mm3 (4.4-11.0)
[2024-12-09 13:22] LABS: AST(SGOT) 33 U/L (<=37); Alanine Aminotransfer ALT/SGPT 50 U/L (<=46); Albumin, Serum 4.1 g/dL (3.5-5.0); Alkaline Phosphatase 100 U/L (40-129); Anion Gap 14 (5-15); BUN 14 mg/dL (4-19); BUN/Creat Ratio 13.5 RATIO (10-20); Calcium,Total 9.6 mg/dL (7.6-11.0); Carbon Dioxide 21.3 mmol/L (21.0-32.0); Chloride 106 mmol/L (98-108); Globulin 2.2 g/dL (2.2-4.2); Glucose 89 mg/dL (70-99); Potassium 4.4 mmol/L (3.3-5.1)
[2024-12-13 12:08] LABS: Trileptal-Oxcarbazepine 22 ug/mL (10-35)
== END | disposition home or self-care (01) ==
LOC: LABSPEC 08:55
PROVIDERS: PCP Family Medicine; Visit Provider Internal Medicine
DX: F06.30 Mood disorder due to known physiological condition, unspecified (principal)
CPT/HCPCS: 80053; 82542; 85027

== ENCOUNTER 2025-01-25 15:04 | Emergency (ER) | payer MEDICAID, SELFPAY ==
[2025-01-25 15:22] VITALS: BP 144/106; PULSE 110; RESP 18; TEMP 36.6; O2SAT 98; BMI 31.4
--- NOTE | 2025-01-25 17:09 | ED.RN ---
[facility] DECIDED TO LEAVE WITH PT.
== END 2025-01-25 17:04 | disposition left against medical advice (07) ==
LOC: ED 17:35
PROVIDERS: PCP Family Medicine
DX: Z00.00 Encounter for general adult medical examination without abnormal findings (principal)
CPT/HCPCS: 99281

== ENCOUNTER → 2025-03-15 | Outpatient (CLI) | payer MEDICAID, SELFPAY ==
--- OUTSIDE RECORDS SUMMARY | 2025-03-15 19:59 | XMS RPT_ITS | CCD ---
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 2.2-4.2 [facility] Comment on above: Performed By: #### L 500.4050, L100.0500, L400.0001 #### [facility] [address] [place], [address] Glucose [Mass/Vol] 89 mg/dL Normal 70-99 [facility] Comment on above: Performed By: #### L 500.4050, L100.0500, L400.0001 #### [facility] [address] [place], [address] Potassium [Moles/Vol] 4.4 mmol/L Normal 3.3-5.1 [facility] Comment on above: Result Comment: Hemo lysis present, Results??could be affected. ?? Performed By: #### L 500.4050, L100.0500, L400.0001 #### [facility] [address] [place], [address] Sodium [Moles/Vol] 141 mmol/L Normal 133-145 [facility] Comment on above: Performed By: #### L 500.4050, L100.0500, L400.0001 #### [facility] [address] [place], [address] T PROT 6.3 g/dL Normal 5.9-8.4 [facility] Comment on above: Performed By: #### L 500.4050, L100.0500, L400.0001 #### [facility] [address] [place], [address] Urea nitrogen [Mass/Vol] 14 mg/dL Normal 4-19 [facility] Comment on above: Performed By: #### L 500.4050, L100.0500, L400.0001 #### [facility] [address] [place], [address] Erythrocyte distribution wid th ratioOrdered By: Dajuan Morrison on 12-09-2024 Erythrocyte distribution width (RBC) [Ratio] 14.5 % 11.6-14.6 [facility] Erythrocyte distribution wid th standard deviationOrdered By: Dajuan Morrison on 12-09-2024 Erythrocyte distribution width (RBC) [Ratio] 46.9 fl High 35.1-43.9 [facility] Glomerular filtration rate ( GFR) estimation/1.73 sq m using serum, plasma, or whole bOrdered By: Dajuan Morrison on 12-09-2024 GFR/1.73 sq M.predicted among non-blacks MDRD (S/P/Bld) [Vol rate/Area] 93 mL/min/{1.73_m2} >60 [facility] Comment on above: mL/min/1.73m2 CKD-EP I Creatinine Equation (2020) Hematocrit Auto (Bld) [Volum e fraction]Ordered By: Dajuan Morrison on 12-09-2024 Hematocrit (Bld) [Volume fraction] 38.0 % Low 40-54 [facility] Hemoglobin measurementOrdere d By: Dajuan Morrison on 12-09-2024 Hemoglobin (Bld) [Mass/Vol] 12.3 g/dL Low 13.0-16.5 [facility] - Chemistry and C hemistry - challengeOrdered By: Dajuan Morrison on 12-09-2024 AST [Catalytic activity/Vol] 33 U/L <38 [facility] Comment on above: Hemolysis present, R esults could be affected. MCV (mean corpuscular volume ) determinationOrdered By: Dajuan Morrison on 12-09-2024 MCV (RBC) [Entitic vol] 87.4 fL 80-94 [facility] Mean corpuscular hemoglobin (MCH) determinationOrdered By: Dajuan Morrison on 12-09-2024 MCH (RBC) [Entitic mass] 28.3 pg 27.0-32.0 [facility] Mean corpuscular hemoglobin concentration (MCHC) determinationOrdered By: Dajuan Morrison on 12-09-2024 MCHC (RBC) [Mass/Vol] 32.4 g/dL 32-36 [facility] Mean platelet volume determi nationOrdered By: Dajuan Morrison on 12-09-2024 Platelet mean volume (Bld) [Entitic vol] 9.0 fL 6.2-12.0 [facility] Platelet countOrdered By: Mary Morrison on 12-09-2024 Platelets (Bld) [#/Vol] 511 10*3/uL High 150-450 [facility] Potassium measurement (mass/ volume)Ordered By: Dajuan Morrison on 12-09-2024 Potassium (Unsp spec) [Mass/Vol] 4.4 mmol/L 3.3-5.1 [facility] Comment on above: Hemolysis present, R esults could be affected. RBC Auto (Bld) [#/Vol]Ordere d By: Dajuan Morrison on 12-09-2024 RBC (Bld) [#/Vol] 4.35 10*6/uL Low 4.6-6.2 [facility] Serum creatinine measurement (mass/volume)Ordered By: Dajuan Morrison on 12-09-2024 Creatinine [Mass/Vol] 1.01 mg/dL 0.70-1.20 [facility] Serum globulin measurementOr dered By: Dajuan Morrison on 12-09-2024 Globulin (S) [Mass/Vol] 2.2 g/dL 2.2-4.2 [facility] Serum glucose measurement (m ass/volume)Ordered By: Dajuan Morrison on 12-09-2024 Glucose [Mass/Vol] 89 mg/dL 70-99 [facility] Serum or plasma alanine rousseau otransferase (ALT) measurementOrdered By: Dajuan Morrison on 12-09-2024 ALT [Catalytic activity/Vol] 50 U/L High <47 [facility] Serum or plasma albumin ashlee urement (mass/volume)Ordered By: Dajuan Morrison on 12-09-2024 Albumin [Mass/Vol] 4.1 g/dL 3.5-5.0 [facility] Serum or plasma albumin/glob ulin mass ratioOrdered By: Dajuan Morrison on 12-09-2024 Albumin/Globulin [Mass ratio] 1.9 {ratio} 0.9-2.4 [facility] Serum or plasma alkaline monica sphatase measurementOrdered By: Dajuan Morrison on 12-09-2024 ALP [Catalytic activity/Vol] 100 U/L 40-129 [facility] Serum or plasma calcium ashlee urement (mass/volume)Ordered By: Dajuan Morrison on 12-09-2024 Calcium [Mass/Vol] 9.6 mg/dL 7.6-11.0 [facility] Serum or plasma oxcarbazepin e measurement (mass/volume)Ordered By: Dajuan Morrison on 12-09-2024 OXcarbazepine [Mass/Vol] 22 ug/mL 10-35 [facility] Comment on above: This test was develo ped and its performance characteristicsdetermined by [employer]. It has not been cleared orapproved by the Food and Drug Administration. Detection Limit = 1Performed at: [facility] [employer] [id number] Director: Andra Sawant MD, Phone: [phone] Serum or plasma urea nitroge n measurement (mass/volume)Ordered By: Dajuan Morrison on 12-09-2024 Urea nitrogen [Mass/Vol] 14 mg/dL 4-19 [facility] Sodium levelOrdered By: Cricket Morrison on 12-09-2024 Sodium [Moles/Vol] 141 mmol/L 133-145 [facility] Total proteinOrdered By: Juvenal Morrison on 12-09-2024 Protein [Mass/Vol] 6.3 g/dL 5.9-8.4 [facility] White blood cell (WBC) count Ordered By: Dajuan Morrison on 12-09-2024 WBC (Bld) [#/Vol] 10.2 10*3/uL 4.4-11.0 [facility] Bedside Glucoseon 12-04-2024 FINGERSTICK GLU 143 mg/dL High 74-106 [facility] Comment on above: Result Comment: KADI PHAN OF PATIENT CARE PER NURSING PROTOCOL Performed By: #### L 500.4050, L100.0500, L400.0001 #### [facility] [address] [place], [address] Discharge Instructionon Discharge Instruction [facility] Medical Records Department [address] [place] [address] Instructions for Home/Discharge Instructions 12/04/24 1210 MR#: [id number] Acct: [id number] Name: CHAN BURCIAGA Rep #: [id number] : 1980 44 From: Salvador Rush MD PCP: Dr. Ramiro Rosa MD Status:REG [facility] Discharge Instructions DC O2, CPAP, BIPAP needs Home O2 Discharge instructions: No Dressing / Incision Discharge Activity: Return to Normal Activity and May Not Drive (while taking narcotic pain medications.) Dressing / Incision Call your doctor if you observe: Fever of 101 or Higher Follow Up Care Please Follow Up With: Salvador Rush MD When: Call [phone] for an appointment Test Results: Test results from this visit will be discussed in further detail at your follow-up appointment, if applicable. Discharge Plan Admission Primary Reason for Your Visit: Transurethral section of prostate Attending Provider: Salvador Rush Primary Care Provider: Ramiro Rosa Instructions Print Language: Afghan Discharge Orders/Prescriptions Prescriptions: Continued quetiapine 150 mg tablet extended release [...] mg tablet 600 mg PO BID Neosporin (gbm-dlz-wczli) 3.5mg-400 unit- 5,000 unit/gram ointment 1 applic [...] 0.5 mg tablet 0.25 mg PO TID Discontinued tamsulosin [Flomax] 0.4 mg capsule 0.4 mg PO QHS Qty: 30 1RF finasteride [Proscar] 5 mg tablet 5 mg PO DAILY Qty: 30 1RF Referrals / Follow Up: Ramiro Rosa MD [Primary Care Provider] - Salvador Rush MD [Med Staff - Active Staff] - Disposition Disposition (needs filled in before D/C Order can be placed): Home, Self Care 12/04/24 1210 Salvador Rush MD CC: Dr. Ramiro Rosa MD Signed Normal [facility] Glucose measurement at bedsi deOrdered By: Salvador Rush on 12-04-2024 Glucose [Mass/Vol] 143 mg/dL High 74-106 [facility] Comment on above: MANAGEMENT OF PATIEN T CARE PER NURSING PROTOCOL MR/POSTOP.ANEon 12-04-2024 MR/POSTOP.[facility] Medical Records Department [address] [place] [address] Anesthesia Postop Eval I 12/04/24 1213 MR#: [id number] Acct: [id number] Name: MARTIR BURCIAGAN Rep #: [id number] : 1980 44 From: Carmen Macias RESIDENT IN DIAGNOSTIC RADIOLOGY PCP: Dr. Ramiro Rosa MD Status:REG [facility] Y Race: C Location: [place] [address] Anesthesia: Postop Eval I Current Vital Signs Temperature: 97.2 F Pulse Rate: 83 Blood Pressure: 113/65 Respiratory Rate: 20 Pulse Ox: 94 Oxygen Delivery Method: Room Air Assessment Airway patent: Yes Spontaneous unlabored respirations: Yes Mental status: Asleep nausea: No Vomiting: No Anesthesia Complication: No Fluid Hydration Crystalloid volume administer (ml): 300 Total IV fluid infused: 300 Progress Note Anesthesia document: Postop Eval 1 completed: Yes 12/04/24 1214 Date Carmen Goodeigner Signature: Date CC: Signed Normal [facility] Operative Reporton 5 Operative Report [facility] Medical Records Department [address] [place] [address] Operative Report 12/04/24 1210 MR#: [id number] Acct: [id number] Name: CHAN BURCIAGA Rep #: [id number] : 1980 44 From: Salvador Rush MD PCP: Dr. Ramiro Rosa MD Status:REG [facility] Location: [place] [address] Operative Report (Standard) Operative Information Date of Procedure: 12/04/24 Pre-Operative Diagnosis: BPH with obstruction Post-Operative Diagnosis: The same Surgery/Procedure Performed: Transurethral section of prostate employment representative: No Type of Anesthesia: General RN Documented Start/Stop Times: Operation Date: 12/04/24 11:30 Case Time Into Pre-Op 12/04/24 09:38 Anesthesia Start 12/04/24 11:08 Into Room 12/04/24 11:08 Out of Pre-Op 12/04/24 11:08 Procedure Start 12/04/24 11:20 Procedure End 12/04/24 11:59 Procedure Start Time: 11:20 Procedure Stop Time: 11:59 Select all DRAINS/GRAFTS/IMPLANTS that apply: Drains Drain details: 22 Tongan three-way Fisher Estimated Blood Loss: Minimal Specimen collected: Yes Description of specimen(s) removed: Prostate tissue Description of surgery: In the preoperative setting I discussed with the patient how the surgery would be done with expect afterwards. We discussed how a prostate resection is done and we discussed the risk of the surgery including, bleeding, infection, retrograde ejaculation, changes with ejaculation or intercourse,. We discussed the possibility that the resection of the prostate may not alleviate his urinary symptoms. We discussed the small risk of developing scar tissue along the urethral channel and strictures. We also discussed the chance of the prostate could grow back and he may need further surgery or treatment in the future for prostate problems. Patient was taken back to the operating room, timeout procedure was performed, he was identified and marked and placed on the operating room table. He underwent general anesthesia. He was placed in dorsolithotomy position. Penis and testicles were prepped and draped in usual sterile fashion. Went into the bladder using the visual obturator with a resectoscope. Once inside the bladder identified the right and left ureteral orifice. I then identified the prostate and the anatomy of the prostate. I marked out the area of the sphincter and the verumontanum was identified. I then proceeded with the prostate resection first resected the median lobe. And then resected the right lobe of the prostate. Then to resect the left lobe of the prostate. I then resected the apical tissue of the prostate. This was a complete resection of all obstructive tissue to improve voiding and relieve obstruction. I then made sure that there was no injury to the sphincter or the verumontanum was still intact. At the end of the resection all the chips were Ellik out of the bladder. I then identified the left and right ureteral orifice and these were confirmed to be in good position and effluxing and not injured. The resectoscope was removed, a 22 Tongan catheter was placed into the bladder on continuous irrigation. And the urine was fairly light pink color and draining normally. He was taken back to the PACU in good condition. Surgical Findings: Obstructed prostate resected completely Complications Complications: No Admit VTE Documentation VTE Present on Admission: No VTE Mechan Device Prophylaxis: SCD's VTE Pharm Prophylaxis ordered?: No 12/04/24 1211 Cosigner Signature (if applicable): CC: Dr. Ramiro Rosa MD; Dr. Salvador Rush MD Signed Normal [facility] Surgery Specimen Level Zhou 12-04-2024 Surgery Specimen Level IV Patient Age/Sex Location Account Attending Physician CHAN BURCIAGA 44/M MS3 [id number] Dr. Salvador Rush MD Specimen: [id number] Received: 12/04/24 Status: HUSSEIN Pressley Num: [id number] Spec Type: TURP Subm Dr: Dr. Salvador Rush MD HEADER OPERATION: Cysto, transurethral resection prostate PRE-OP DIAGNOSIS: Benign prostatic hyperplasia with obstruction TISSUE SUBMITTED: A- Prostate tissue MICROSCOPIC DIAGNOSIS A. Prostate, transurethral resection: -Benign stromal and glandular hyperplasia with patchy acute inflammation. MICROSCOPIC DESCRIPTION Slides are reviewed. GROSS DESCRIPTION A. Received in formalin labeled with the patient's name and date of . Designated as " prostate tissue" is a 10.7 g, 5.0 x 4.6 x 1.3 cm aggregate of irregular, sands, rubbery and cauterized tissue fragments. Entirely submitted in 7 cassettes. [place] 12/04/2024 [facility]:[id number] Patient Age/Sex Location Account Attending Physician CHAN BURCIAGA 44/M MS3 [id number] Dr. Salvador Rush MD Signed (signature on file) Dr. Stefanie Chávez MD 12/08/24 1415 Normal [facility] Comment on above: Performed By: #### P SUIV ####[facility] [id number] [place], [address] 36on 12-03-2024 36 Fax from [facility] Prescription Request: fluticasone (Flonase) 50 MCG/ACT nasal spray Last medication check: 12/24/23 Last physical exam: 04/20/24 Next scheduled appointment: 12/15/24 Last date of refill on this medication 02/03/24 (qty 16g refill 11) [facility] MR/PAT.[facility] 11-27-2024 MR/PAT.[facility] Medical Records Department [address] [place] [address] PAT - Anesthesia 11/27/24 1753 MR#: [id number] Acct: [id number] Name: CHAN BURCIAGA Rep #: [id number] : 1980 44 From: Vinay Maciel MD PCP: Dr. 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 When Was Last Pacemaker Check QUESTION #4 FULL TEXT: You/Your Family Experience fever (hyperthermia) with Anesthesia Last Oral Intake Last Oral intake: Last Oral Intake NPO since Meds taken in AM with sips of water? Meds patient instructed to take am of surgery PONV PONV - environmental services floor tech: PONV - environmental services floor tech Female No 11/27/24 10:42 HX of Motion Sickness No 11/27/24 10:42 HX of N/V After Surgery No 11/27/24 10:42 Non-Smoker Yes 11/27/24 10:42 Duration of Surgery greater Yes 11/27/24 10:42 than 60 minutes Number of Risk Factors 2 11/27/24 10:42 PONV Score Moderate Risk 11/27/24 10:42 Height Weight Height Weight: Anesthesia: Height Weight Height 5 ft 5 in 11/13/24 07:33 Respiratory Assessment Respiratory Assessment - environmental services floor tech: Respiratory Tract Infection Hx - environmental services floor tech Hx Respiratory Tract Infection No 11/27/24 10:42 STOP Sleep Apnea STOP Sleep Apnea - environmental services floor tech: STOP Sleep Apnea - environmental services floor tech Hx Hypertension Yes: CONTROLLED WITH MED 11/27/24 10:42 Hx Sleep Apnea No 11/27/24 10:42 CPAP BIPAP Do you snore loudly (louder Yes 11/27/24 10:42 than talking or can be heard Do you often feel tired/ Yes 11/27/24 10:42 fatigued/ sleepy during daytime? Has anyone observed you stop No 11/27/24 10:42 breathing during sleep? STOP Results Positive 11/27/24 10:42 QUESTION #5 FULL TEXT : Do you snore loudly (louder than talking or can be heard through closed doors)? 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 Specify any problems Hx of Preganancy in last 3 N/A 11/27/24 10:42 Months Nurse Filling Out Transfusion DSCHRIBER 11/27/24 10:42 Questions: Date: 11/27/24 11/27/24 10:42 Time: 10:43 11/27/24 10:42 Patient unable to answer at this time (ie. confused, unrespo /Reproduction History /Reproductive History - environmental services floor tech: /Reproductive Hx- environmental services floor tech Hx Now No 11/27/24 10:42 Gestational Age (in weeks): EDC: Hx Hx Para Hx Section SAB No 11/27/24 10:42 [facility] Medical History (Updated 11/27/24 @ 10:48 by Debora Wong) Bladder disease Anxiety Lives in snf Arthritis Back pain Non-smoker Shortness of breath [...] % topical cream 1 applic topical DAILY (more content not included)... 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 FYI Best time of day caller can be reached: no Patient advised that office/PCP has 24-48 business hours to return their call: No Normal [facility] Urine Cultureon 11-16-2024 [facility] Enterococcus danie rum [place] Count 11,000-25,000 Enterococcus gallinarum: REACTION Ampicillin Islt BIRGIT <=2 Ciprofloxacin Islt BIRGIT <=0.5 S Gentamicin Synergy Susc Islt SYN-S S levoFLOXacin Islt BIRGIT 1 S Linezolid Islt BIRGIT 2 S Nitrofurantoin Islt BIRGIT <=16 S Streptomycin High Pot Susc Islt SYN-S S Tetracycline Islt BIRGIT <=1 S Vancomycin Islt BIRGIT R Normal [facility] Comment on above: Performed By: #### M 100.2200 ####[facility] [id number] [place], [address] Abdomen/Pelvis without Conto n 11-13-2024 Abdomen/Pelvis without Cont [facility] Imaging Services [address] [place], [place] [address] Abdomen/Pelvis without Cont MR#: [id number] Acct: [id number] Name: CHAN BURCIAGA Rep #: [id number] : 1980 M 44 From: Cristhian de la cruz MD PCP: Dr. Ramiro Rosa MD Status: REG ER Study: Abdomen/Pelvis without Cont Date of Exam: 11/03 05/30 Exam# [id number] Ordering Dr: Cristian Hua DO PROCEDURE: ABDOMEN/PELVIS WITHOUT CONT 11/13/2024 REASON FOR EXAM: PAIN Hematuria. History of bilateral renal calculi and obstructive uropathy. TECHNIQUE: ABDOMEN/PELVIS WITHOUT CONT Noncontrast technique limits evaluation of the abdominal and pelvic viscera. Coronal and Sagittal reconstruction series were provided. One or more dose reduction techniques were used (e.g., Automated exposure control, adjustment of the mA and/or kV according to patient size, use of iterative reconstruction technique). RADIATION DOSE SUMMARY: CTDlvol: 11.61 mGy DLP: 684.8 mGycm COMPARISON: Prior study dated October 08, 2024. FINDINGS: Lung bases: Mild dependent atelectasis. Coronary artery calcification. Liver: Diffuse fatty infiltration. Gallbladder: Sludge is seen within the gallbladder lumen. Spleen: Normal size. Pancreas: Normal size. No surrounding inflammation. Adrenals: Unremarkable Kidneys: Once again, there were multiple small bilateral intrarenal calculi. Stable left renal cysts. No evidence of ureteral obstruction at this time. The previously seen calculus in the distal left ureter is not seen at this time. Bladder: Unremarkable. The previously seen multiple stones at the base of the bladder are not seen at this time. Prosthetic enlargement with indentation of the bladder base. Bilateral inguinal hernias containing fat more prominent on the right side. Bowel: Unremarkable Appendix: Unremarkable Lymph nodes: No lymph nodes are seen. Vasculature: Unremarkable Peritoneum / Retroperitoneum: Unremarkable. Bones: Mild degree of degenerative changes of the lumbar spine. CT/Abdomen/Pelvis without Cont IMPRESSION: Multiple nonobstructive bilateral intrarenal calculi. No evidence of obstructive uropathy at this time. Small bilateral inguinal hernias containing fat worse on the right side. Prostatic enlargement with indentation of the bladder base. Fatty infiltration of the liver. Reading Location: [place] [address] CC: Dr. Cristian Hua DO; Dr. Ramiro Rosa MD Medical Records Receptionist: Signed Normal [facility] Absolute lymphocyte countOrd ered By: Cristian Hua on 11-13-2024 Lymphocytes Auto (Unsp spec) [#/Vol] 2.32 10*3/uL 0.83-4.51 [facility] Absolute neutrophil countOrd ered By: Cristian Hua on 11-13-2024 Neutrophils (Bld) [#/Vol] 3.8 10*3/uL 2.0-7.7 [facility] Anion gap in Serum or Plasma Ordered By: Cristian Hua on 11-13-2024 Anion gap [Moles/Vol] 10 mmol/L 5-15 [facility] Automated lymphocyte count a s percentage of total leukocytesOrdered By: Cristian Hua on 11-13-2024 Lymphocytes/100 WBC Auto (Unsp spec) 33.5 % 19-41 [facility] BUN/creatinine ratioOrdered By: Cristian Hua on 11-13-2024 Urea nitrogen/Creatinine [Mass ratio] 15.6 mg/mg 10-20 [facility] Basic Metabolic Profile (BMP )on 11-13-2024 BUN/CRE 15.6 RATIO Normal 10-20 [facility] Comment on above: Performed By: #### L 500.2500, L100.0100 ####[facility] [address] [place], [address] Calcium [Mass/Vol] 9.7 mg/dL Normal 7.6-11.0 [facility] Comment on above: Performed By: #### L 500.2500, L100.0100 ####[facility] [address] [place], [address] Chloride [Moles/Vol] 102 mmol/L Normal 98-108 [facility] Comment on above: Performed By: #### L 500.2500, L100.0100 ####[facility] [address] [place], [address] CO2 [Moles/Vol] 23.5 mmol/L Normal 21.0-32.0 [facility] Comment on above: Performed By: #### L 500.2500, L100.0100 ####[facility] [address] [place], [address] Creatinine [Mass/Vol] 1.02 mg/dL Normal 0.70-1.20 [facility] Comment on above: Performed By: #### L 500.2500, L100.0100 ####[facility] [address] [place], [address] ECRCL 93.00 ml/min Normal 50-250 [facility] Comment on above: Performed By: #### L 500.2500, L100.0100 ####[facility] [address] [place], [address] GAP 10 Normal 5-15 [facility] Comment on above: Performed By: #### L 500.2500, L100.0100 ####[facility] [address] [place], [address] GFR/1.73 sq M.predicted among non-blacks MDRD (S/P/Bld) [Vol rate/Area] 92 mL/min/{1.73_m2} Normal >60 [facility] Comment on above: Result Comment: mL/m in/1.73m2 CKD-EPI Creatinine Equation (2020) Performed By: #### L 500.2500, L100.0100 ####[facility] [address] [place], [address] Glucose [Mass/Vol] 115 mg/dL High 70-99 [facility] Comment on above: Performed By: #### L 500.2500, L100.0100 ####[facility] [address] [place], [address] Potassium [Moles/Vol] 3.8 mmol/L Normal 3.3-5.1 [facility] Comment on above: Performed By: #### L 500.2500, L100.0100 ####[facility] [address] [place], [address] Sodium [Moles/Vol] 135 mmol/L Normal 133-145 [facility] Comment on above: Performed By: #### L 500.2500, L100.0100 ####[facility] [address] [place], [address] Urea nitrogen [Mass/Vol] 16 mg/dL Normal 4-19 [facility] Comment on above: Performed By: #### L 500.2500, L100.0100 ####[facility] [address] [place], [address] Basophil percentageOrdered B y: Cristian Hua on 11-13-2024 Basophils/100 WBC (Bld) 0.9 % 0-1 [facility] Bilirubin Test strip Ql (U)O rdered By: Cristian Hua on 11-13-2024 Bilirubin Ql (U) Negative Negative [facility] CBC W/Diff, Automatedon 07- Absolute Lymph 2.32 X10 3/uL Normal 0.83-4.51 [facility] Comment on above: Performed By: #### L 500.2500, L100.0100 #### [facility] [address] [place], [address] Absolute Neut 3.8 X10 3/uL Normal 2.0-7.7 [facility] Comment on above: Performed By: #### L 500.2500, L100.0100 #### [facility] [address] [place], [address] Basophils/100 WBC (Bld) 0.9 % Normal 0-1 [facility] Comment on above: Performed By: #### L 500.2500, L100.0100 #### [facility] [address] [place], [address] Eosinophils/100 WBC (Bld) 3.6 % Normal 0-5 [facility] Comment on above: Performed By: #### L 500.2500, L100.0100 #### [facility] [address] [place], [address] Erythrocyte distribution width (RBC) [Ratio] 13.5 % Normal 11.6-14.6 [facility] Comment on above: Performed By: #### L 500.2500, L100.0100 #### [facility] [address] [place], [address] Hematocrit (Bld) [Volume fraction] 35.4 % Low 40-54 [facility] Comment on above: Performed By: #### L 500.2500, L100.0100 #### [facility] [address] [place], [address] Hemoglobin (Bld) [Mass/Vol] 11.9 g/dL Low 13.0-16.5 [facility] Comment on above: Performed By: #### L 500.2500, L100.0100 #### [facility] [address] [place], [address] IG% 0.700 Normal 0.0-0.9 [facility] Comment on above: Result Comment: IG% - Immature Granulocytes (promyelocytes, myelocytes and metamyelocytes) > 1% indicates that a LEFT SHIFT is Present. Performed By: #### L 500.2500, L100.0100 #### [facility] [address] [place], [address] Lymphocytes/100 WBC (Bld) 33.5 % Normal 19-41 [facility] Comment on above: Performed By: #### L 500.2500, L100.0100 #### [facility] [address] [place], [address] MCH (RBC) [Entitic mass] 28.8 pg Normal 27.0-32.0 [facility] Comment on above: Performed By: #### L 500.2500, L100.0100 #### [facility] [address] [place], [address] MCHC (RBC) [Mass/Vol] 33.6 g/dL Normal 32-36 [facility] Comment on above: Performed By: #### L 500.2500, L100.0100 #### [facility] [address] [place], [address] MCV (RBC) [Entitic vol] 85.7 fL Normal 80-94 [facility] Comment on above: Performed By: #### L 500.2500, L100.0100 #### [facility] [address] [place], [address] Monocytes/100 WBC (Bld) 6.8 % Normal 0-10 [facility] Comment on above: Performed By: #### L 500.2500, L100.0100 #### [facility] [address] [place], [address] Neutrophils/100 WBC (Bld) 54.5 % Normal 47-70 [facility] Comment on above: Performed By: #### L 500.2500, L100.0100 #### [facility] [address] [place], [address] Nucleated RBC (Bld) [#/Vol] 0 10*3/uL Normal 0-5 [facility] Comment on above: Performed By: #### L 500.2500, L100.0100 #### [facility] [address] [place], [address] Platelet mean volume (Bld) [Entitic vol] 8.3 fL Normal 6.2-12.0 [facility] Comment on above: Performed By: #### L 500.2500, L100.0100 #### [facility] [address] [place], [address] Platelets (Bld) [#/Vol] 496 10*3/uL High 150-450 [facility] Comment on above: Performed By: #### L 500.2500, L100.0100 #### [facility] [address] [place], [address] RBC (Bld) [#/Vol] 4.13 10*6/uL Low 4.6-6.2 [facility] Comment on above: Performed By: #### L 500.2500, L100.0100 #### [facility] [address] [place], [address] RDW SD 42.4 fl Normal 35.1-43.9 [facility] Comment on above: Performed By: #### L 500.2500, L100.0100 #### [facility] [address] [place], [address] WBC (Bld) [#/Vol] 6.9 10*3/uL Normal 4.4-11.0 [facility] Comment on above: Performed By: #### L 500.2500, L100.0100 #### [facility] [address] [place], [address] Carbon dioxide, total [Moles /volume] in Central venous bloodOrdered By: Cristian Hua on 11-13-2024 CO2 [Moles/Vol] 23.5 mmol/L 21.0-32.0 [facility] Chloride assayOrdered By: Guevara Hua on 11-13-2024 Chloride [Moles/Vol] 102 mmol/L 98-108 [facility] Emergency Department Summary on 11-13-2024 Emergency Department Summary [facility] Medical Records Department [address] [place] [address] Emergency Department Summary 11/13/24 MR#: [id number] Acct: [id number] Name: CHAN BURCIAGA Rep #: [id number] : 1980 44 From: Cristian Hua DO PCP: Dr. Ramiro Rosa MD Status:REG ER Location: ED ADDENDUM by Dr. Cristian Hua DO on 11/13/24 at 1023 Given patient is on prolonging QTc medications will switch to a 7-day course of Bactrim instead of Levaquin. 11/13/24 1023 Cosigner Signature (if applicable): cc: Dr. Ramiro Rosa MD * Signed HPI History of Present Illness Chief Complaint: Complaint Narrative Narrative: Chief complaint and HPI: Hematuria. 44-year-old male with past medical history of urolithiasis, HTN who presents for evaluation of hematuria. 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 Patient follows with Dr. Rush. He had a cystoscopylithoplexy and laser of large bladder stones and removal of left stent on 10/30. 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 Hematuria continued until he passed a large clot today. He endorses dysuria. Denies any fever, chills, shortness of breath, chest pain abdominal pain, nausea, vomiting. States he feels like he is emptying his bladder. Review of systems: See HPI Medications: As listed on the chart Allergies: As listed on the chart PFSH: Per chart Vital signs: As listed on the chart. Reviewed. Physical exam: Gen: Alert and oriented, NAD Head: Normocephalic, atraumatic Eyes: No sclera icterus, conjunctiva clear ENT: Moist mucous membranes Neck: Trachea midline, No JVD CV: RRR, no murmurs, no peripheral edema Resp: Lungs CTA BL, no w/r/c GI: Abd soft, non-distended, non-tender, no r/r/g : No CVA tenderness. Circumcised penis. No penile tenderness or discharge. No penile or testicular swelling. Normal lie and position of the testicles. No testicular tenderness, masses, or skin changes. Cremasteric reflexes intact and equal bilaterally. No rashes. No palpable hernias. No blood at penile meatus. Musc: Full ROM, no deformity Skin: Warm, dry Neuro: Alert, oriented, grossly intact, sensation intact Psych: Cooperative, appropriate mood and affect [facility] Medical History Anxiety Dietary restriction Lives in snf Arthritis Back pain Non-smoker Shortness of breath [...] topical cream 1 applic topical DAILY 05/29/23 10/22/24 History atorvastatin 40 mg tablet 40 mg PO DAILY 05/29/23 10/22/24 H istory clonidine HCl 0.2 mg tablet 0.2 mg PO BID 05/29/23 10/30/24 Hi story doxazosin 2 mg tablet 2 mg PO QHS 05/29/23 10/22/24 Hist ory fluticasone propionate 50 2 spray intranasal DAILY 05/29/23 10/22/24 History mcg/actuation nasal spray,suspension (Allergy Relief (fluticasone)) losartan 100 mg tablet 100 mg PO DAILY 05/29/23 10/30/24 History multivitamin-ferrous 1 tab PO DAILY 05/29/23 10/22/24 H istory fumarate-folic acid 18 mg-400 mcg tablet (Certavite-Antioxidant) nabumetone 500 mg tablet 500 mg PO BID PRN pain 05/29/23 Un known History quetiapine 150 mg tablet,extended 100 mg PO 0700 05/29/23 10/30/24 History release 24 hr neomycin-bacitracn Zn-polymyx 3.5 1 applic topical TID PRN dry skin 11/05/23 10/22/24 History mg-400 unit-5,000 unit/gram top oint (Neosporin (jay-[id number]-[id number])) oxcarbazepine 600 mg tablet 600 mg PO BID 11/05/23 10/30/24 Hi story clonazepam 0.5 mg tablet 0.25 mg PO TID 10/15/24 10/30/24 H istory quetiapine 200 mg tablet 200 mg PO 1600 10/15/24 10/22/24 H istory cephalexin 500 mg capsule 500 mg PO TID #15 caps 10/23/24 Un known Rx oxycodone 5 mg tablet 5 mg PO Q6H PRN pain 7 days #20 10/29/24 Rx tabs finasteride 5 mg tablet (Proscar) 5 mg PO DAILY #30 tabs 10/30/24 U nknown Rx sulfamethoxazole 800 1 tab PO BID #14 tabs 10/30/24 Unk nown Rx mg-trimethoprim 160 mg tablet (Bactrim DS) tamsulosin 0.4 mg capsule (Flomax) 0.4 mg PO QHS #30 (more content not included)... Normal [facility] Eosinophil percentageOrdered By: Cristian Hua on 11-13-2024 Eosinophils/100 WBC (Bld) 3.6 % 0-5 [facility] Erythrocyte distribution wid th ratioOrdered By: Cristian Hua on 11-13-2024 Erythrocyte distribution width (RBC) [Ratio] 13.5 % 11.6-14.6 [facility] Erythrocyte distribution wid th standard deviationOrdered By: Cristianblayne Doyle on 11-13-2024 Erythrocyte distribution width (RBC) [Ratio] 42.4 fl 35.1-43.9 [facility] Glomerular filtration rate ( GFR) estimation/1.73 sq m using serum, plasma, or whole bOrdered By: Cristianblayne Hua on 11-13-2024 GFR/1.73 sq M.predicted among non-blacks MDRD (S/P/Bld) [Vol rate/Area] 92 mL/min/{1.73_m2} >60 [facility] Comment on above: mL/min/1.73m2 CKD-EP I Creatinine Equation (2020) Hematocrit Auto (Bld) [Volum e fraction]Ordered By: Cristian Hua on 11-13-2024 Hematocrit (Bld) [Volume fraction] 35.4 % Low 40-54 [facility] Hemoglobin measurementOrdere d By: Cristian Hua on 11-13-2024 Hemoglobin (Bld) [Mass/Vol] 11.9 g/dL Low 13.0-16.5 [facility] Immature granulocytes/100 WB C Auto (Bld)Ordered By: Cristian Hua on 11-13-2024 Immature granulocytes/100 WBC (Bld) 0.700 % 0.0-0.9 [facility] Comment on above: IG% - Immature Granu locytes (promyelocytes, myelocytes and metamyelocytes) > 1% indicates that a LEFT SHIFT is Present. Ketones Test strip Ql (U)Ord ered By: Cristian Hua on 11-13-2024 Ketones Ql (U) Negative Negative [facility] MCV (mean corpuscular volume ) determinationOrdered By: Cristian Hua on 11-13-2024 MCV (RBC) [Entitic vol] 85.7 fL 80-94 [facility] Mean corpuscular hemoglobin (MCH) determinationOrdered By: Cristian Hua on 11-13-2024 MCH (RBC) [Entitic mass] 28.8 pg 27.0-32.0 [facility] Mean corpuscular hemoglobin concentration (MCHC) determinationOrdered By: Cristian Hua on 11-13-2024 MCHC (RBC) [Mass/Vol] 33.6 g/dL 32-36 [facility] Mean platelet volume determi nationOrdered By: Cristian Hua on 11-13-2024 Platelet mean volume (Bld) [Entitic vol] 8.3 fL 6.2-12.0 [facility] Microscopic analysis of urin e for red blood cells (RBC)Ordered By: Cristian Hua on 11-13-2024 Microscopic analysis of urine for red blood cells (RBC) 10-25 SEEN /hpf 0-5 [facility] Monocyte percentageOrdered B y: Cristian Hua on 11-13-2024 Monocytes/100 WBC (Bld) 6.8 % 0-10 [facility] Mucus LM Ql (Urine sed)Order ed By: Cristian Hua on 11-13-2024 Mucus Ql (Urine sed) 0 SEEN /hpf [facility] Neutrophil percentageOrdered By: Cristian Hua on 11-13-2024 Neutrophils/100 WBC (Bld) 54.5 % 47-70 [facility] Nitrite Test strip Ql (U)Ord ered By: Cristian Hua on 11-13-2024 Nitrite Ql (U) Negative Negative [facility] Nucleated red blood cell per centageOrdered By: Cristian Hua on 11-13-2024 Nucleated RBC/100 WBC (Bld) [Ratio] 0 % 0-5 [facility] Platelet countOrdered By: Guevara Hua on 11-13-2024 Platelets (Bld) [#/Vol] 496 10*3/uL High 150-450 [facility] Potassium measurement (mass/ volume)Ordered By: Cristian Hua on 11-13-2024 Potassium (Unsp spec) [Mass/Vol] 3.8 mmol/L 3.3-5.1 [facility] Protein Test strip Ql (U)Ord ered By: Cristian Hua on 11-13-2024 Protein Ql (U) 30 mg/dl High Negative [facility] RBC Auto (Bld) [#/Vol]Ordere d By: Cristian Hua on 11-13-2024 RBC (Bld) [#/Vol] 4.13 10*6/uL Low 4.6-6.2 [facility] Serum creatinine measurement (mass/volume)Ordered By: Cristian Hua on 11-13-2024 Creatinine [Mass/Vol] 1.02 mg/dL 0.70-1.20 [facility] Serum glucose measurement (m ass/volume)Ordered By: Cristian Hua on 11-13-2024 Glucose [Mass/Vol] 115 mg/dL High 70-99 [facility] Serum or plasma calcium ashlee urement (mass/volume)Ordered By: Cristian Doyle on 11-13-2024 Calcium [Mass/Vol] 9.7 mg/dL 7.6-11.0 [facility] Serum or plasma urea nitroge n measurement (mass/volume)Ordered By: Cristian Hua on 11-13-2024 Urea nitrogen [Mass/Vol] 16 mg/dL 4-19 [facility] Sodium levelOrdered By: Simon Hua on 11-13-2024 Sodium [Moles/Vol] 135 mmol/L 133-145 [facility] Squamous epithelial cells de tection in urine sediment by light microscopyOrdered By: Cristian Hua on 11-13-2024 Epithelial cells.squamous LM Ql (Urine sed) 0 SEEN /hpf 0-5 [facility] Urinalysis, Completeon 11-13 RBC 10-25 SEEN Normal 0-5 [facility] Comment on above: Order Comment: CLEAN CATCH Performed By: #### L 400.0001 #### [facility] [address] [place], [address] WBC 10-25 SEEN Normal 0-5 [facility] Comment on above: Order Comment: CLEAN CATCH Performed By: #### L 400.0001 #### [facility] [address] [place], [address] BACTERIA 0 SEEN Normal None Seen [facility] Comment on above: Order Comment: CLEAN CATCH Performed By: #### L 400.0001 #### [facility] [address] [place], [address] EPI,SQUAMOUS 0 SEEN Normal 0-5 [facility] Comment on above: Order Comment: CLEAN CATCH Performed By: #### L 400.0001 #### [facility] [address] [place], [address] Mucus Ql (Urine sed) 0 SEEN Normal [facility] Comment on above: Order Comment: CLEAN CATCH Performed By: #### L 400.0001 #### [facility] [address] [place], [address] Urine clarityOrdered By: Greg Hua on 11-13-2024 Clarity (U) Sl. Cloudy Clear [facility] Urine color determinationOrd ered By: Cristian Hua on 11-13-2024 Color (U) Yellow Yellow [facility] Urine cultureOrdered By: Greg Hua on 11-13-2024 Bacteria identified Cx Nom (U) Enterococcus gallinarum Abnormal [facility] Urine glucose detectionOrder ed By: Cristian Hua on 11-13-2024 Glucose Ql (U) Normal mg/dl Normal [facility] Urine leukocyte esterase det ection by dipstickOrdered By: Cristian Hua on 11-13-2024 Leukocyte esterase Test strip Ql (U) 100 /ul High Negative [facility] Urine pHOrdered By: Cristian Soto on 11-13-2024 pH (U) 7.0 [pH] 5.0 - 8.0 [facility] Urine sediment bacteria coun t by microscopy (number/high power field)Ordered By: Cristian KlCharles on 11-13-2024 Bacteria LM.HPF (Urine sed) [#/Area] 0 /[HPF] None Seen [facility] Urine specific gravity measu rementOrdered By: [facility] Alexander Campust on 11-13-2024 Specific gravity (U) [Rel density] 1.015 1.002-1.03 0 [facility] Urine urobilinogen measureme ntOrdered By: [facility] Alexander Campust on 11-13-2024 Urobilinogen Ql (U) Normal mg/dl Normal [facility] White blood cell (WBC) count Ordered By: [facility] on 11-13-2024 WBC (Bld) [#/Vol] 6.9 10*3/uL 4.4-11.0 [facility] White blood cell countOrdere d By: [facility] 11-[facility]-2024 White blood cell count 10-25 SEEN /hpf 0-5 [facility] 36on 11-04-2024 36 Rx sent. Follow up a s scheduled. [facility] 36 Fax from [facility] Prescription Request: omega-3 (Fish Oil) 1000 MG capsule Last medication check: 10/24/23 Last physical exam: 04/20/24 Next scheduled appointment: 04/22/25 Last date of refill on this medication 10/02/24 ( qty 90 refill 1) [facility] MR/[id number] 11-02-2024 MR/POSTOPAN2 [facility] Medical Records Department [address] [place] [address] Anesthesia Postop Eval II 11/02/24 1001 MR#: [id number] Acct: [id number] Name: MALKACHAN Rep #: [id number] : 1980 44 From: Vinay Maciel MD PCP: Dr. Ramiro Rosa MD Status:[facility] Y Race: C [place] [facility] [place]esthesia Postop Eval I Sum Postop Eval Completion status Anesthesia document: Postop Eval 1 completed: Yes Anesthesia Postop Eval I Summary Anesthesia Postop Eval I Summary: Anesthesia Postop Eval I: Assessment Summary Airway patent Yes 10/30/24 15:09 RESIDENT IN DIAGNOSTIC RADIOLOGY.ACAR Spontaneous unlabored Yes 10/30/24 15:09 RESIDENT IN DIAGNOSTIC RADIOLOGY.ACAR respirations Mental status nausea No 10/30/24 15:09 RESIDENT IN DIAGNOSTIC RADIOLOGY.ACAR Vomiting No 10/30/24 15:09 RESIDENT IN DIAGNOSTIC RADIOLOGY.ACAR Anesthesia Postop Eval I: Fluid Summary Crystalloid volume administer 1,000 10/30/24 15:09 RESIDENT IN DIAGNOSTIC RADIOLOGY.ACAR (ml) Colloids volume administered ( ml) Blood Product volume administered (ml) Total IV fluid infused 1,000 10/30/24 15:09 RESIDENT IN DIAGNOSTIC RADIOLOGY.ACAR Anesthesia Postop Eval I: Summary Notes Anesthesia Complication No 10/30/24 15:09 RESIDENT IN DIAGNOSTIC RADIOLOGY.ACAR Anesthesia Complication Comment: Post-operative progress note Anesthesia: Postop Eval II Evaluation Mental status: Awake and Calm Pain Level: 1 nausea: No Vomiting: No Complications Anesthesia Complication: No 11/02/24 1002 Date Vinay Maciel MD Cosigner Signature: Date CC: Signed Normal [facility] Anion gap in Serum or Plasma Ordered By: Salvador Rush on 10-30-2024 Anion gap [Moles/Vol] 13 mmol/L 5-15 [facility] [place] BUN/creatinine ratioOrdered By: Salvador Rush on 10-30-2024 Urea nitrogen/Creatinine [Mass ratio] 11.7 mg/mg 10-20 [facility] Bilirubin, totalOrdered By: Salvador Rush on 10-30-2024 Bilirubin [Mass/Vol] 0.51 mg/dL 0.00-1.30 [facility] CBC-Complete Blood Cnt No Di ffon 10-30-2024 Erythrocyte distribution width (RBC) [Ratio] 13.5 % Normal 11.6-14.6 [facility] Comment on above: Performed By: #### L 500.4050, L100.0500, L400.0001 #### [facility] [address] [place], [address] Hematocrit (Bld) [Volume fraction] 36.9 % Low 40-54 [facility] Comment on above: Performed By: #### L 500.4050, L100.0500, L400.0001 #### [facility] [address] [place], [address] Hemoglobin (Bld) [Mass/Vol] 12.4 g/dL Low 13.0-16.5 [facility] Comment on above: Performed By: #### L 500.4050, L100.0500, L400.0001 #### [facility] [address] [place], [address] MCH (RBC) [Entitic mass] 28.7 pg Normal 27.0-32.0 [facility] Comment on above: Performed By: #### L 500.4050, L100.0500, L400.0001 #### [facility] [address] [place], [address] MCHC (RBC) [Mass/Vol] 33.6 g/dL Normal 32-36 [facility] [place] Comment on above: Performed By: #### L 500.4050, L100.0500, L400.0001 #### [facility] [address] [place], [address] MCV (RBC) [Entitic vol] 85.4 fL Normal 80-94 [facility] Comment on above: Performed By: #### L 500.4050, L100.0500, L400.0001 #### [facility] [address] [place], [address] Platelet mean volume (Bld) [Entitic vol] 9.0 fL Normal 6.2-12.0 [facility] Comment on above: Performed By: #### L 500.4050, L100.0500, L400.0001 #### [facility] [address] [place], [address] Platelets (Bld) [#/Vol] 399 10*3/uL Normal 150-450 [facility] Comment on above: Performed By: #### L 500.4050, L100.0500, L400.0001 #### [facility] [address] [place], [address] RBC (Bld) [#/Vol] 4.32 10*6/uL Low 4.6-6.2 [facility] Comment on above: Performed By: #### L 500.4050, L100.0500, L400.0001 #### [facility] [address] [place], [address] RDW SD 42.9 fl Normal 35.1-43.9 [facility] Comment on above: Performed By: #### L 500.4050, L100.0500, L400.0001 #### [facility] [address] [place], [address] WBC (Bld) [#/Vol] 15.1 10*3/uL High 4.4-11.0 [facility] Comment on above: Performed By: #### L 500.4050, L100.0500, L400.0001 #### [facility] [address] [place], [address] Carbon dioxide, total [Moles /volume] in Central venous bloodOrdered By: Salvador Rush on 10-30-2024 CO2 [Moles/Vol] 20.9 mmol/L Low 21.0-32.0 [facility] Chloride assayOrdered By: Lana Rush on 10-30-2024 Chloride [Moles/Vol] 98 mmol/L 98-108 [facility] Comprehensive Metabolic Prof ilon 10-30-2024 Albumin [Mass/Vol] 4.2 g/dL Normal 3.5-5.0 [facility] Comment on above: Performed By: #### L 500.4050, L100.0500, L400.0001 #### [facility] [address] [place], [address] Albumin/Globulin [Mass ratio] 1.7 {ratio} Normal 0.9-2.4 [facility] Comment on above: Performed By: #### L 500.4050, L100.0500, L400.0001 #### [facility] [address] [place], [address] ALK PHOS 93 U/L Normal 40-129 [facility] Comment on above: Performed By: #### L 500.4050, L100.0500, L400.0001 #### [facility] [address] [place], [address] ALT [Catalytic activity/Vol] 64 U/L High <=46 [facility] Comment on above: Result Comment: Hemo lysis present, Results??could be affected. ?? Performed By: #### L 500.4050, L100.0500, L400.0001 #### [facility] [address] [place], [address] AST [Catalytic activity/Vol] 57 U/L High <=37 [facility] Comment on above: Result Comment: Hemo lysis present, Results??could be affected. ?? Performed By: #### L 500.4050, L100.0500, L400.0001 #### [facility] [address] [place], [address] Bilirubin [Mass/Vol] 0.51 mg/dL Normal 0.00-1.30 [facility] Comment on above: Performed By: #### L 500.4050, L100.0500, L400.0001 #### [facility] [address] [place], [address] BUN/CRE 11.7 RATIO Normal 10-20 [facility] Comment on above: Performed By: #### L 500.4050, L100.0500, L400.0001 #### [facility] [address] [place], [address] Calcium [Mass/Vol] 9.6 mg/dL Normal 7.6-11.0 [facility] Comment on above: Performed By: #### L 500.4050, L100.0500, L400.0001 #### [facility] [address] [place], [address] Chloride [Moles/Vol] 98 mmol/L Normal 98-108 [facility] Comment on above: Performed By: #### L 500.4050, L100.0500, L400.0001 #### [facility] [address] [place], [address] CO2 [Moles/Vol] 20.9 mmol/L Low 21.0-32.0 [facility] Comment on above: Performed By: #### L 500.4050, L100.0500, L400.0001 #### [facility] [address] [place], [address] Creatinine [Mass/Vol] 1.09 mg/dL Normal 0.70-1.20 [facility] [place] Comment on above: Performed By: #### L 500.4050, L100.0500, L400.0001 #### [facility] [address] [place], [address] ECRCL 84.44 ml/min Normal 50-250 [facility] Comment on above: Performed By: #### L 500.4050, L100.0500, L400.0001 #### [facility] [address] [place], [address] GAP 13 Normal 5-15 [facility] Comment on above: Performed By: #### L 500.4050, L100.0500, L400.0001 #### [facility] [address] [place], [address] GFR/1.73 sq M.predicted among non-blacks MDRD (S/P/Bld) [Vol rate/Area] 85 mL/min/{1.73_m2} Normal >60 [facility] Comment on above: Result Comment: mL/m in/1.73m2 CKD-EPI Creatinine Equation (2020) Performed By: #### L 500.4050, L100.0500, L400.0001 #### [facility] [address] [place], [address] Globulin (S) [Mass/Vol] 2.5 g/dL Normal 2.2-4.2 [facility] Comment on above: Performed By: #### L 500.4050, L100.0500, L400.0001 #### [facility] [address] [place], [address] Glucose [Mass/Vol] 122 mg/dL High 70-99 [facility] Comment on above: Performed By: #### L 500.4050, L100.0500, L400.0001 #### [facility] [address] [place], [address] Potassium [Moles/Vol] 4.7 mmol/L Normal 3.3-5.1 [facility] [place] [facility] Comment on above: Result Comment: Hemo lysis present, Results??could be affected. ?? Performed By: #### L 500.4050, L100.0500, L400.0001 #### [facility] [address] [place], [address] Sodium [Moles/Vol] 132 mmol/L Low 133-145 [facility] Comment on above: Performed By: #### L 500.4050, L100.0500, L400.0001 #### [facility] [address] [place], [address] T PROT 6.7 g/dL Normal 5.9-8.4 [facility] Comment on above: Performed By: #### L 500.4050, L100.0500, L400.0001 #### [facility] [address] [place], [address] Urea nitrogen [Mass/Vol] 13 mg/dL Normal 4-19 [facility] Comment on above: Performed By: #### L 500.4050, L100.0500, L400.0001 #### [facility] [address] [place], [address] Discharge Instructionon 10-05 Discharge Instruction [facility] Medical Records Department [address] [place] [address] Instructions for Home/Discharge Instructions 10/30/24 1331 MR#: [id number] Acct: [id number] Name: CHAN BURCIAGA Rep #: [id number] : 1980 44 From: Salvador Rush MD PCP: Dr. Ramiro Rosa MD Status:REG [facility] [place] Discharge Instructions Diet Discharge Diet: No restrictions DC O2, CPAP, BIPAP needs Home O2 Discharge instructions: No Dressing / Incision Discharge Activity: Return to Normal Activity Follow Up Care Please Follow Up With: Salvador Rush MD When: Call [phone] for an appointment Test Results: Test results from this visit will be discussed in further detail at your follow-up appointment, if applicable. Discharge Plan Admission Primary Reason for Your Visit: laser bladder stones Attending Provider: Salvador Rush Primary Care Provider: Ramiro Rosa Instructions Print Language: Afghan Discharge Orders/Prescriptions Prescriptions: New sulfamethoxazole-trimethopr im [Bactrim [...] mg tablet 600 mg PO BID Neosporin (acv-wih-satlf) 3.5mg-400 unit- 5,000 unit/gram ointment 1 applic [...] CC: Dr. Ramiro Rosa MD Signed Normal [facility] Erythrocyte distribution wid th ratioOrdered By: Salvador Rush on 10-30-2024 Erythrocyte distribution width (RBC) [Ratio] 13.5 % 11.6-14.6 [facility] Erythrocyte distribution wid th standard deviationOrdered By: Salvador Rush on 10-30-2024 Erythrocyte distribution width (RBC) [Ratio] 42.9 fl 35.1-43.9 [facility] Glomerular filtration rate ( GFR) estimation/1.73 sq m using serum, plasma, or whole bOrdered By: Salvador Rsuh on 10-30-2024 GFR/1.73 sq M.predicted among non-blacks MDRD (S/P/Bld) [Vol rate/Area] 85 mL/min/{1.73_m2} >60 [facility] Comment on above: mL/min/1.73m2 CKD-EP I Creatinine Equation (2020) Hematocrit Auto (Bld) [Volum e fraction]Ordered By: Salvador Rush on 10-30-2024 Hematocrit (Bld) [Volume fraction] 36.9 % Low 40-54 [facility] Hemoglobin measurementOrdere d By: Salvador Rush on 10-30-2024 Hemoglobin (Bld) [Mass/Vol] 12.4 g/dL Low 13.0-16.5 [facility] - Chemistry and C hemistry - challengeOrdered By: Salvador Rush on 10-30-2024 AST [Catalytic activity/Vol] 57 U/L High <38 [facility] Comment on above: Hemolysis present, R esults could be affected. MCV (mean corpuscular volume ) determinationOrdered By: Salvador Rush on 10-30-2024 MCV (RBC) [Entitic vol] 85.4 fL 80-94 [facility] MR/POSTOP.ANEon 10-30-2024 MR/POSTOP.ANE [facility] Medical Records Department [address] [place] [address] Anesthesia Postop Eval I 10/30/24 1508 MR#: [id number] Acct: [id number] Name: CHAN BURCIAGA Rep #: [id number] : 1980 44 From: Oliverio Candelaria CRNA PCP: Dr. Ramiro Rosa MD Status:REG SDC Y Race: C Location: [place] [address] Anesthesia: Postop Eval I Current Vital Signs [...] CRNA Cosigner Signature: Date CC: Signed Normal [facility] Mean corpuscular hemoglobin (MCH) determinationOrdered By: Salvador Rush on 10-30-2024 MCH (RBC) [Entitic mass] 28.7 pg 27.0-32.0 [facility] Mean corpuscular hemoglobin concentration (MCHC) determinationOrdered By: Salvador Rush on 10-30-2024 MCHC (RBC) [Mass/Vol] 33.6 g/dL 32-36 [facility] Mean platelet volume determi nationOrdered By: Salvador Rush on 10-30-2024 Platelet mean volume (Bld) [Entitic vol] 9.0 fL 6.2-12.0 [facility] Operative Reporton Operative Report [facility] Medical Records Department [address] [place] [address] Operative Report 10/30/24 1410 MR#: [id number] Acct: [id number] Name: CHAN BURCIAGA Rep #: [id number] : 1980 44 From: Salvador Rush MD PCP: Dr. Ramiro Rosa MD Status:[facility] Location[place] [facility] [place] Operative Report (Standard) Operative Information Date of Procedure: 10/30/24 Pre-Operative Diagnosis: Large bladder stones status post laser of left stones Post-Operative Diagnosis: Same Surgery/Procedure Performed: Cystolitholapaxy and laser of large bladder stones and removal of left stent employment representative: No Type of Anesthesia: General RN Documented [...] went in the bladder with a 21 [place] rigid cystourethroscope went inside the bladder grabbed [...] MD; Dr. Salvador Rush MD * Signed [facility] Platelet countOrdered By: Lana Rush on 10-30-2024 Platelets (Bld) [#/Vol] 399 10*3/uL 150-450 [facility] Potassium measurement (mass/ volume)Ordered By: Salvador Rush on 10-30-2024 Potassium (Unsp spec) [Mass/Vol] 4.7 mmol/L 3.3-5.1 [facility] Comment on above: Hemolysis present, R esults could be affected. RBC Auto (Bld) [#/Vol]Ordere d By: Salvador Rush on 10-30-2024 RBC (Bld) [#/Vol] 4.32 10*6/uL Low 4.6-6.2 [facility] Serum creatinine measurement (mass/volume)Ordered By: Salvador Rush on 10-30-2024 Creatinine [Mass/Vol] 1.09 mg/dL 0.70-1.20 [facility] Serum globulin measurementOr dered By: Salvador Rush on 10-30-2024 Globulin (S) [Mass/Vol] 2.5 g/dL 2.2-4.2 [facility] Serum glucose measurement (m ass/volume)Ordered By: Salvador Rush on 10-30-2024 Glucose [Mass/Vol] 122 mg/dL High 70-99 [facility] Serum or plasma alanine rousseau otransferase (ALT) measurementOrdered By: Salvador Rush on 10-30-2024 ALT [Catalytic activity/Vol] 64 U/L High <47 [facility] Comment on above: Hemolysis present, R esults could be affected. Serum or plasma albumin ashlee urement (mass/volume)Ordered By: Salvador Rush on 10-30-2024 Albumin [Mass/Vol] 4.2 g/dL 3.5-5.0 [facility] Serum or plasma albumin/glob ulin mass ratioOrdered By: Salvador Rush on 10-30-2024 Albumin/Globulin [Mass ratio] 1.7 {ratio} 0.9-2.4 [facility] Serum or plasma alkaline monica sphatase measurementOrdered By: Salvador Rush on 10-30-2024 ALP [Catalytic activity/Vol] 93 U/L 40-129 [facility] Serum or plasma calcium ashlee urement (mass/volume)Ordered By: Salvador Rush on 10-30-2024 Calcium [Mass/Vol] 9.6 mg/dL 7.6-11.0 [facility] Serum or plasma urea nitroge n measurement (mass/volume)Ordered By: Salvadorhenny Rush on 10-30-2024 Urea nitrogen [Mass/Vol] 13 mg/dL 4-19 [facility] Sodium levelOrdered By: Salvadorhenny Rush on 10-30-2024 Sodium [Moles/Vol] 132 mmol/L Low 133-145 [facility] Total proteinOrdered By: Colby Rush on 10-30-2024 Protein [Mass/Vol] 6.7 g/dL 5.9-8.4 [facility] Urinalysis, Completeon 10-30 BACTERIA Normal None Seen [facility] Comment on above: Order Comment: CLEAN CATCH Result Comment: NO S PECIMEN REC'D Performed By: #### L 500.4050, L100.0500, L400.0001 #### [facility] [address] [place], [address] BILIRUBIN URINE Normal Negative [facility] Comment on above: Order Comment: CLEAN CATCH Result Comment: NO S PECIMEN REC'D Performed By: #### L 500.4050, L100.0500, L400.0001 #### [facility] [address] [place], [address] Clarity (U) Normal Clear [facility] Comment on above: Order Comment: CLEAN CATCH Result Comment: NO S PECIMEN REC'D Performed By: #### L 500.4050, L100.0500, L400.0001 #### [facility] [address] [place], [address] Color (U) Normal Yellow [facility] Comment on above: Order Comment: CLEAN CATCH Result Comment: NO S PECIMEN REC'D Performed By: #### L 500.4050, L100.0500, L400.0001 #### [facility] [address] [place], [address] EPI,SQUAMOUS Normal 0-5 [facility] Comment on above: Order Comment: CLEAN CATCH Result Comment: NO S PECIMEN REC'D Performed By: #### L 500.4050, L100.0500, L400.0001 #### [facility] [address] [place], [address] GLUCOSE, UR Normal Normal [facility] Comment on above: Order Comment: CLEAN CATCH Result Comment: NO S PECIMEN REC'D Performed By: #### L 500.4050, L100.0500, L400.0001 #### [facility] [address] [place], [address] KETONE UR Normal Negative [facility] Comment on above: Order Comment: CLEAN CATCH Result Comment: NO S PECIMEN REC'D Performed By: #### L 500.4050, L100.0500, L400.0001 #### [facility] [address] [place], [address] LEUK ESTERASE Normal Negative [facility] Comment on above: Order Comment: CLEAN CATCH Result Comment: NO S PECIMEN REC'D Performed By: #### L 500.4050, L100.0500, L400.0001 #### [facility] [address] [place], [address] Mucus Ql (Urine sed) Normal [facility] Comment on above: Order Comment: CLEAN CATCH Result Comment: NO S PECIMEN REC'D Performed By: #### L 500.4050, L100.0500, L400.0001 #### [facility] [address] [place], [address] Nitrite Ql (U) Normal Negative [facility] Comment on above: Order Comment: CLEAN CATCH Result Comment: NO S PECIMEN REC'D Performed By: #### L 500.4050, L100.0500, L400.0001 #### [facility] [address] [place], [address] OCCULT BLOOD-UR Normal Negative [facility] Comment on above: Order Comment: CLEAN CATCH Result Comment: NO S PECIMEN REC'D Performed By: #### L 500.4050, L100.0500, L400.0001 #### [facility] [address] [place], [address] pH UR Normal 5.0 - 8.0 [facility] Comment on above: Order Comment: CLEAN CATCH Result Comment: NO S PECIMEN REC'D Performed By: #### L 500.4050, L100.0500, L400.0001 #### [facility] [address] [place], [address] PROT DIPSTX Normal Negative [facility] Comment on above: Order Comment: CLEAN CATCH Result Comment: NO S PECIMEN REC'D Performed By: #### L 500.4050, L100.0500, L400.0001 #### [facility] [address] [place], [address] RBC Normal 0-5 [facility] Comment on above: Order Comment: CLEAN CATCH Result Comment: NO S PECIMEN REC'D Performed By: #### L 500.4050, L100.0500, L400.0001 #### [facility] [address] [place], [address] SP.GR. DIPSTX Normal 1.002-1.03 0 [facility] Comment on above: Order Comment: CLEAN CATCH Result Comment: NO S PECIMEN REC'D Performed By: #### L 500.4050, L100.0500, L400.0001 #### [facility] [address] [place], [address] UR Preservative Normal [facility] Comment on above: Order Comment: CLEAN CATCH Result Comment: NO S PECIMEN REC'D Performed By: #### L 500.4050, L100.0500, L400.0001 #### [facility] [address] [place], [address] UROBILI Normal Normal [facility] Comment on above: Order Comment: CLEAN CATCH Result Comment: NO S PECIMEN REC'D Performed By: #### L 500.4050, L100.0500, L400.0001 #### [facility] [address] [place], [address] WBC Normal 0-5 [facility] Comment on above: Order Comment: CLEAN CATCH Result Comment: NO S PECIMEN REC'D Performed By: #### L 500.4050, L100.0500, L400.0001 #### [facility] [address] [place], [address] White blood cell (WBC) count Ordered By: Salvador Rush on 10-30-2024 WBC (Bld) [#/Vol] 15.1 10*3/uL High 4.4-11.0 [facility] MR/PAT.ANEon 10-28-2024 MR/PAT.ANE [facility] Medical Records Department [address] [place] [address] PAT - Anesthesia 10/28/245 MR#: [id number] Acct: [id number] Name: CHAN BURCIAGA Rep #: [id number] : 1980 44 From: Baljeet Keen MD PCP: Dr. 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: Anesthesia History - environmental services floor tech Hx Hospitalization Yes: 10/09/24 KIDNEY STONE 10/28/24 [...] take am of surgery PONV PONV - environmental services floor tech: PONV - environmental services floor tech Female No 10/28/24 16:22 HX of Motion [...] 10/23/24 06:29 Respiratory Assessment Respiratory Assessment - environmental services floor tech: Respiratory Tract Infection Hx - environmental services floor tech Hx Respiratory Tract Infection No 10/28/24 16:22 STOP Sleep Apnea STOP Sleep Apnea - environmental services floor tech: STOP Sleep Apnea - environmental services floor tech Hx Hypertension Yes: CONTROLLED WITH MED 10/28/24 [...] Tobacco Use History Tobacco Use History - environmental services floor tech: Tobacco Use History - environmental services floor tech Tobacco Use Non-smoker 03/02/21 15:59 Smoking Status Never smoker 10/28/24 16:22 Hx Tobacco Use No 10/28/24 16:22 Years Smoking Packs Smoked per Day Smoking Cessation Date was within the last 15 years Hx Smoking Cessation Date Hx Smoking Cessation Counseling Hematologic Medial History Hematologic Hx - environmental services floor tech: 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 Specify any problems Hx of Preganancy in last 3 N/A 10/28/24 16:22 Months Nurse Filling Out Transfusion [facility] 10/28/24 16:22 Questions: Date: 10/28/24 10/28/24 16:22 Time: 16:23 10/28/24 16:22 Patient unable to answer at this time (ie. confused, unrespo /Reproduction History /Reproductive History - environmental services floor tech: /Reproductive Hx- environmental services floor tech Hx Now No 10/28/24 16:22 Gestational Age (in weeks): EDC: Hx Hx Para Hx Section SAB No 10/15/24 10:22 [facility] Medical History Anxiety Dietary restriction Lives in snf Arthritis Back pain Non-smoker Shortness of breath [...] topical cr (more content not included)... Normal [facility] Discharge Instructionon 10-05 Discharge Instruction [facility] Medical Records Department [address] [place] [address] Instructions for Home/Discharge Instructions 10/23/24 0849 MR#: [id number] Acct: [id number] Name: MARTIR BURCIAGAN Rep #: [id number] : 1980 44 From: Salvador Rush MD PCP: Dr. Ramiro Rosa MD Status:REG [place] Discharge Instructions Diet Discharge Diet: No restrictions DC O2, CPAP, BIPAP needs Home O2 Discharge instructions: No Dressing / Incision Discharge Activity: Return to Normal Activity and May Not Drive (while taking narcotic pain medications.) Dressing / Incision Call your doctor if you observe: Fever of 101 or Higher Follow Up Care Please Follow Up With: Salvador Rush MD When: Call [phone] for an appointment Test Results: Test results from this visit will be discussed in further detail at your follow-up appointment, if applicable. Discharge Plan Admission Primary Reason for Your Visit: laser stone and stent Attending Provider: Salvador Rush Primary Care Provider: Ramiro Rosa Instructions Print Language: Afghan Discharge Orders/Prescriptions Prescriptions: New cephalexin 500 mg [...] mg tablet 600 mg PO BID Neosporin (epg-uyj-melmx) 3.5mg-400 unit- 5,000 unit/gram ointment 1 applic [...] MD CC: Dr. Ramiro Rosa MD Signed [facility] MR/POSTOP.ANEon 10-23-2024 MR/POSTOP.[facility] Medical Records Department [address] [place] [address] Anesthesia Postop Eval I 10/23/24 0858 MR#: [id number] Acct: [id number] Name: CHAN BURCIAGA Rep #: [id number] : 1980 44 From: Kirk Askew CRNA PCP: Dr. Ramiro Rosa MD Status:[facility] Y Race: C Location: [place] [address] Anesthesia: Postop Eval I Current Vital Signs Temperature: 97 F Pulse Rate: 97 Blood Pressure: 113/78 Respiratory Rate: 16 Pulse Ox: 94 Assessment Airway patent: Yes Spontaneous unlabored respirations: Yes nausea: No Vomiting: No Anesthesia Complication: No Fluid Hydration Crystalloid volume administer (ml): 800 Total IV fluid infused: 800 Progress Note Anesthesia document: Postop Eval 1 completed: Yes 10/23/24 0859 Date Kirk Askew CRNA Cosigner Signature: Date CC: Signed [facility] MR/[id number] 10-23-2024 MR/POSTOPAN2 [facility] Medical Records Department [address] [place] [address] Anesthesia Postop Eval II 10/23/24 1542 MR#: [id number] Acct: [id number] Name: CHAN BURCIAGA Rep #: [id number] : 1980 44 From: Padmini Page RESIDENT IN DIAGNOSTIC RADIOLOGY PCP: Dr. Ramiro Rosa MD Status:[facility] Y Race: C [place] [facility] [place]esthesia Postop Eval I Sum Postop Eval Completion status Anesthesia document: Postop Eval 1 completed: Yes Anesthesia Postop Eval I Summary Anesthesia Postop Eval I Summary: Anesthesia Postop Eval I: Assessment Summary Airway patent Yes 10/23/24 08:58 RESIDENT IN DIAGNOSTIC RADIOLOGY.TNES Spontaneous unlabored Yes 10/23/24 08:58 RESIDENT IN DIAGNOSTIC RADIOLOGY.TNES respirations Mental status nausea No 10/23/24 08:58 RESIDENT IN DIAGNOSTIC RADIOLOGY.TNES Vomiting No 10/23/24 08:58 RESIDENT IN DIAGNOSTIC RADIOLOGY.TNES Anesthesia Postop Eval I: Fluid Summary Crystalloid volume administer 800 10/23/24 08:58 RESIDENT IN DIAGNOSTIC RADIOLOGY.TNES (ml) Colloids volume administered ( ml) Blood Product volume administered (ml) Total IV fluid infused 800 10/23/24 08:58 RESIDENT IN DIAGNOSTIC RADIOLOGY.TNES Anesthesia Postop Eval I: Summary Notes Anesthesia Complication No 10/23/24 08:58 RESIDENT IN DIAGNOSTIC RADIOLOGY.TNES Anesthesia Complication Comment: Post-operative progress note Anesthesia: Postop Eval II Evaluation Mental status: Awake Pain Level: 2 nausea: No Vomiting: No 10/23/24 1542 Date Padmini Page RESIDENT IN DIAGNOSTIC RADIOLOGY Cosigner Signature: Date CC: Signed Normal [facility] Operative Reporton 5 Operative Report [facility] Medical Records Department [address] [place] [address] Operative Report 10/23/24 0849 MR#: [id number] Acct: [id number] Name: CHAN BURCIAGA Rep #: [id number] : 1980 44 From: Salvador Rush MD PCP: Dr. Ramiro Rosa MD Status:[facility] Location: AC AC01-1 Operative Report (Standard) Operative Information Date of Procedure: 10/23/24 Pre-Operative Diagnosis: Kidney stones and ureteral stones large and multiple Post-Operative Diagnosis: The same Surgery/Procedure Performed: Cystoscopy left ureteroscopy laser lithotripsy of multiple stones in the ureter multiple stones in the kidney and left stent placement employment representative: No Type of Anesthesia: General RN Documented Start/Stop Times: Operation Date: 10/23/24 07:30 Case Time Into Pre-Op 10/23/24 06:07 Out of Pre-Op 10/23/24 07:20 Anesthesia Start 10/23/24 07:25 Into Room 10/23/24 07:25 Procedure Start 10/23/24 07:38 Procedure End 10/23/24 08:45 Procedure Start Time: 07:38 Procedure Stop Time: 08:50 Select all DRAINS/GRAFTS/IMPLANTS that apply: Drains Drain details: 6 Tongan by 26 cm stent Estimated Blood Loss: None Specimen collected: No Description of surgery: Patient was taken back to the operating room after smooth induction of general anesthesia he was placed supine on the operating room table and then in dorsolithotomy position. The penis and testicles were prepped and draped in usual sterile fashion went into the bladder with a 21 Tongan rigid cystourethroscope he had a large amount [...] Rosa MD; Dr. Salvador Rush MD Signed [facility] MR/PAT.MANISH 10-15-2024 MR/PAT.[facility] Medical Records Department [address] [place] [address] PAT - Anesthesia 10/15/24 1113 MR#: [id number] Acct: [id number] Name: CHAN BURCIAGA Rep #: [id number] : 1980 43 From: Sandro Julian MD PCP: Dr. Ramiro Rosa MD Status:PRE [facility] [place] Y Race: C [place] [facility] [place] Pre-Assessment Diagnosis/Proposed Procedure Planned Operative Procedure(s): LEFT URETEROSCOPY LASER STENT 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: Anesthesia History - environmental services floor tech Hx Hospitalization Yes: 10/09/24 KIDNEY STONE 10/15/24 [...] take am of surgery PONV PONV - environmental services floor tech: PONV - environmental services floor tech Female No 10/15/24 10:22 HX of Motion Sickness No 10/15/24 10:22 HX of N/V After Surgery No 10/15/24 10:22 Non-Smoker No 10/15/24 10:22 Duration of Surgery greater No 10/15/24 10:22 than 60 minutes Number of Risk Factors PONV Score Height Weight Height Weight: Anesthesia: Height Weight Height 5 ft 4.96 in 10/09/24 10:19 Respiratory Assessment Respiratory Assessment - environmental services floor tech: Respiratory Tract Infection Hx - environmental services floor tech Hx Respiratory Tract Infection No: COUGH 10/15/24 10:22 STOP Sleep Apnea STOP Sleep Apnea - environmental services floor tech: STOP Sleep Apnea - environmental services floor tech Hx Hypertension Yes: CONTROLLED WITH MED 10/15/24 [...] Tobacco Use History Tobacco Use History - environmental services floor tech: Tobacco Use History - environmental services floor tech Tobacco Use Non-smoker 03/02/21 15:59 Smoking Status Never smoker 10/15/24 10:22 Hx Tobacco Use No 10/15/24 10:22 Years Smoking Packs Smoked per Day Smoking Cessation Date was within the last 15 years Hx Smoking Cessation Date Hx Smoking Cessation Counseling Hematologic Medial History Hematologic Hx - environmental services floor tech: 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 Specify any problems Hx of Preganancy in last 3 N/A 10/15/24 10:22 Months Nurse Filling Out Transfusion DSCHRIBER 10/15/24 10:22 Questions: Date: 10/15/24 10/15/24 10:22 Time: 10:24 06/12/25 10:22 Patient unable to answer at this time (ie. confused, unrespo /Reproduction History /Reproductive History - environmental services floor tech: /Reproductive Hx- environmental services floor tech Hx Now No 10/15/24 10:22 Gestational Age (in weeks): EDC: Hx Hx Para Hx Section SAB No 10/15/24 10:22 [facility] Medical History (Updated 10/15/24 @ 10:30 by Debora Wong) Anxiety Dietary restriction Lives in snf Arthritis Back pain Non-smoker Shortness of breath [...] 05/29/23 08 (more content not included)... Normal [facility] Office Visiton 10-15-2024 Follow-up visit [id number] Cb Burciaga 1980 M Date Provider Department Center 10/15/2024 [id number] [facility]A [facility] Family History Family Status - Relation Status Age at Mother Father Alive Level of Service:32178 [place] OFFICE/OUTPATIENT ESTABLISHED MOD MDM 30 MIN Reason for Visit and Comments: Follow-up [138597] - 6m follow up, medication check, recent ED visit for kidney stone Normal [facility] Progress Noteon 10-15-2024 Progress Note Remission, continue Trileptal 600 mg and Seroquel 100 mg daily and clonazepam 0.25 mg 3 times a day Normal [facility] Progress Note Controlled, continue atorvastatin 40 mg daily and fenofibrate 145 mg daily [facility] Progress Note Currently has a sten t in place is waiting for surgery to break up the stone. Follow-up with urology as scheduled. Normal [facility] Progress Note Controlled, continue clonidine 0.2 mg, losartan 100 mg, Normal [facility] Progress Note 10/15/2024 Chan Burciaga (: [...] Weight: 190 lb (86.2 kg) Height: 5' 5" (1.651 m) Physical Exam Vitals and nursing [...] note. Ramiro Rosa MD 10/15/2024 12:39 PM [facility] 12 Lead EKGon 10-09-2024 12 Lead EKG [facility] Cardiovascular Services [address] [place] [address] 12 Lead EKG 10/09/24 0958 MR#: [id number] Acct: [id number] Name: CHAN BURCIAGA Rep #: [id number] : 1980 43 From: Delbert Faye MD [...] in Lateral leads Confirmed by Delbert Faye ([id number]), associate entertainment editor KATELYNN RODRIGUEZ ([id number]) on 10/12/2024 9:11:11 AM Referred By: CARLA Confirmed By: Delbert Faye 10/12/24910 Date Delbert Faye MD CC: Dr. Sandro Julian MD; Dr. Ramiro Rosa MD; Dr. Austin Mares MD Signed Normal [facility] Absolute lymphocyte countOrd ered By: Carla on 10-09-2024 Lymphocytes Auto (Unsp spec) [#/Vol] 2.90 10*3/uL 0.83-4.51 [facility] Absolute neutrophil countOrd ered By: Carla on 10-09-2024 Neutrophils (Bld) [#/Vol] 4.9 10*3/uL 2.0-7.7 [facility] Anion gap in Serum or Plasma Ordered By: Carla on 10-09-2024 Anion gap [Moles/Vol] 12 mmol/L 5-15 [facility] Automated lymphocyte count a s percentage of total leukocytesOrdered By: Carla on 10-09-2024 Lymphocytes/100 WBC Auto (Unsp spec) 31.8 % 19-41 [facility] BUN/creatinine ratioOrdered By: Carla on 10-09-2024 Urea nitrogen/Creatinine [Mass ratio] 12.4 mg/mg 10-20 [facility] Basophil percentageOrdered B y: Carla on 10-09-2024 Basophils/100 WBC (Bld) 0.7 % 0-1 [facility] Bilirubin, totalOrdered By: Carla on 10-09-2024 Bilirubin [Mass/Vol] 0.38 mg/dL 0.00-1.30 [facility] CBC W/Diff, Automatedon Absolute Lymph 2.90 X10 3/uL Normal 0.83-4.51 [facility] Comment on above: Performed By: #### L 500.4050, L100.0100 ####[facility] [address] [place], [address] Absolute Neut 4.9 X10 3/uL Normal 2.0-7.7 [facility] Comment on above: Performed By: #### L 500.4050, L100.0100 ####[facility] [address] [place], [address] Basophils/100 WBC (Bld) 0.7 % Normal 0-1 [facility] Comment on above: Performed By: #### L 500.4050, L100.0100 ####[facility] [address] [place], [address] Eosinophils/100 WBC (Bld) 5.5 % High 0-5 [facility] Comment on above: Performed By: #### L 500.4050, L100.0100 ####[facility] [address] [place], [address] Erythrocyte distribution width (RBC) [Ratio] 13.7 % Normal 11.6-14.6 [facility] Comment on above: Performed By: #### L 500.4050, L100.0100 ####[facility] [address] [place], [address] Hematocrit (Bld) [Volume fraction] 38.1 % Low 40-54 [facility] Comment on above: Performed By: #### L 500.4050, L100.0100 ####[facility] [address] [place], [address] Hemoglobin (Bld) [Mass/Vol] 12.7 g/dL Low 13.0-16.5 [facility] Comment on above: Performed By: #### L 500.4050, L100.0100 ####[facility] [address] [place], [address] IG% 0.300 Normal 0.0-0.9 [facility] Comment on above: Result Comment: IG% - Immature Granulocytes (promyelocytes, myelocytes and metamyelocytes) > 1% indicates that a LEFT SHIFT is Present. Performed By: #### L 500.4050, L100.0100 ####[facility] [address] [place], [address] Lymphocytes/100 WBC (Bld) 31.8 % Normal 19-41 [facility] Comment on above: Performed By: #### L 500.4050, L100.0100 ####[facility] [address] [place], [address] MCH (RBC) [Entitic mass] 28.8 pg Normal 27.0-32.0 [facility] Comment on above: Performed By: #### L 500.4050, L100.0100 ####[facility] [address] [place], [address] MCHC (RBC) [Mass/Vol] 33.3 g/dL Normal 32-36 [facility] Comment on above: Performed By: #### L 500.4050, L100.0100 ####[facility] [address] [place], [address] MCV (RBC) [Entitic vol] 86.4 fL Normal 80-94 [facility] Comment on above: Performed By: #### L 500.4050, L100.0100 ####[facility] [address] [place], [address] Monocytes/100 WBC (Bld) 8.4 % Normal 0-10 [facility] Comment on above: Performed By: #### L 500.4050, L100.0100 ####[facility] [address] [place], [address] Neutrophils/100 WBC (Bld) 53.3 % Normal 47-70 [facility] Comment on above: Performed By: #### L 500.4050, L100.0100 ####[facility] [address] [place], [address] Nucleated RBC (Bld) [#/Vol] 0 10*3/uL Normal 0-5 [facility] Comment on above: Performed By: #### L 500.4050, L100.0100 ####[facility] [address] [place], [address] Platelet mean volume (Bld) [Entitic vol] 8.8 fL Normal 6.2-12.0 [facility] Comment on above: Performed By: #### L 500.4050, L100.0100 ####[facility] [address] [place], [address] Platelets (Bld) [#/Vol] 332 10*3/uL Normal 150-450 [facility] Comment on above: Performed By: #### L 500.4050, L100.0100 ####[facility] [address] [place], [address] RBC (Bld) [#/Vol] 4.41 10*6/uL Low 4.6-6.2 [facility] Comment on above: Performed By: #### L 500.4050, L100.0100 ####[facility] [address] [place], [address] RDW SD 42.9 fl Normal 35.1-43.9 [facility] Comment on above: Performed By: #### L 500.4050, L100.0100 ####[facility] [address] [place], [address] WBC (Bld) [#/Vol] 9.1 10*3/uL Normal 4.4-11.0 [facility] Comment on above: Performed By: #### L 500.4050, L100.0100 ####[facility] [address] [place], [address] Carbon dioxide, total [Moles /volume] in Central venous bloodOrdered By: Yamileth Aguirre on 10-09-2024 CO2 [Moles/Vol] 21.2 mmol/L 21.0-32.0 [facility] Chloride assayOrdered By: Cynthia Aguirre on 10-09-2024 Chloride [Moles/Vol] 104 mmol/L 98-108 [facility] Comprehensive Metabolic Prof ilon 10-09-2024 Albumin [Mass/Vol] 3.9 g/dL Normal 3.5-5.0 [facility] Comment on above: Performed By: #### L 500.4050, L100.0100 ####[facility] [address] [place], [address] Albumin/Globulin [Mass ratio] 1.8 {ratio} Normal 0.9-2.4 [facility] Comment on above: Performed By: #### L 500.4050, L100.0100 ####[facility] [address] [place], [address] ALK PHOS 67 U/L Normal 40-129 [facility] Comment on above: Performed By: #### L 500.4050, L100.0100 ####[facility] [address] [place], [address] ALT [Catalytic activity/Vol] 55 U/L High <=46 [facility] Comment on above: Performed By: #### L 500.4050, L100.0100 ####[facility] [address] [place], [address] AST [Catalytic activity/Vol] 40 U/L High <=37 [facility] Comment on above: Performed By: #### L 500.4050, L100.0100 ####[facility] [address] [place], [address] Bilirubin [Mass/Vol] 0.38 mg/dL Normal 0.00-1.30 [facility] Comment on above: Performed By: #### L 500.4050, L100.0100 ####[facility] [address] [place], [address] BUN/CRE 12.4 RATIO Normal 10-20 [facility] Comment on above: Performed By: #### L 500.4050, L100.0100 ####[facility] [address] [place], [address] Calcium [Mass/Vol] 9.1 mg/dL Normal 7.6-11.0 [facility] Comment on above: Performed By: #### L 500.4050, L100.0100 ####[facility] [address] [place], [address] Chloride [Moles/Vol] 104 mmol/L Normal 98-108 [facility] Comment on above: Performed By: #### L 500.4050, L100.0100 ####[facility] [address] [place], [address] CO2 [Moles/Vol] 21.2 mmol/L Normal 21.0-32.0 [facility] Comment on above: Performed By: #### L 500.4050, L100.0100 ####[facility] [address] [place], [address] Creatinine [Mass/Vol] 1.39 mg/dL High 0.70-1.20 [facility] Comment on above: Performed By: #### L 500.4050, L100.0100 ####[facility] [address] [place], [address] ECRCL 67.68 ml/min Normal 50-250 [facility] Comment on above: Performed By: #### L 500.4050, L100.0100 ####[facility] [address] [place], [address] GAP 12 Normal 5-15 [facility] Comment on above: Performed By: #### L 500.4050, L100.0100 ####[facility] [address] [place], [address] GFR/1.73 sq M.predicted among non-blacks MDRD (S/P/Bld) [Vol rate/Area] 64 mL/min/{1.73_m2} Normal >60 [facility] Comment on above: Result Comment: mL/m in/1.73m2 CKD-EPI Creatinine Equation (2020) Performed By: #### L 500.4050, L100.0100 ####[facility] [address] [place], [address] Globulin (S) [Mass/Vol] 2.2 g/dL Normal 2.2-4.2 [facility] Comment on above: Performed By: #### L 500.4050, L100.0100 ####[facility] [address] [place], [address] Glucose [Mass/Vol] 100 mg/dL High 70-99 [facility] Comment on above: Performed By: #### L 500.4050, L100.0100 ####[facility] [address] [place], [address] Potassium [Moles/Vol] 3.8 mmol/L Normal 3.3-5.1 [facility] Comment on above: Performed By: #### L 500.4050, L100.0100 ####[facility] [address] [place], [address] Sodium [Moles/Vol] 137 mmol/L Normal 133-145 [facility] Comment on above: Performed By: #### L 500.4050, L100.0100 ####[facility] [address] [place], [address] T PROT 6.2 g/dL Normal 5.9-8.4 [facility] Comment on above: Performed By: #### L 500.4050, L100.0100 ####[facility] [address] [place], [address] Urea nitrogen [Mass/Vol] 17 mg/dL Normal 4-19 [facility] Comment on above: Performed By: #### L 500.4050, L100.0100 ####[facility] [address] [place], [address] Consultation - Urologyon Consultation - Urology [facility] Medical Records Department [address] [place] [address] Consultation - Urology 10/09/24 1139 MR#: [id number] Acct: [id number] Name: CHAN BURCIAGA Rep #: [id number] : 1980 43 From: Salvador Rush MD PCP: Dr. Ramiro Rosa MD Status:ADM IN Location: [facility] [place] EF503-6 HPI Consult Data Date of Consult: 10/09/24 [...] findings a separate setting once everything stable. [facility] Medical History Lives in snf Arthritis Back pain Non-smoker Shortness of breath [...] History mg-400 unit-5,000 unit/gram top oint (Neosporin (rhu-nqy-ytkvd)) oxcarbazepine 600 mg tablet 600 mg PO [...] % (Auto) 68.7, Lymph % (Auto) 19.2, [place] % (Auto) 8.0, Eos % (Auto) 2.9, [...] Clarity Cloudy, Urine pH 7.0, Ur Specific Rarden 1.010, U rine Protein 30 H, Urine Glucose (UA) Normal, Urine Ketones Negative, Urine Occult Blood 250 H, Urine Nitrite Negative, Urine Bilirubin Negative, Urine Urobilinogen Normal, Ur Leukocyte Esterase 25 H, Urine RBC > 100 SEEN, (more content not included)... Normal [facility] Discharge Instructionon 060 Discharge Instruction [facility] Medical Records Department [address] [place] [address] Instructions for Home/Discharge Instructions 10/09/24 1545 MR#: [id number] Acct: [id number] Name: CHAN BURCIAGA Rep #: [id number] : 1980 43 From: Austin Mares MD [...] risk with narcotics therefore I do recommend okut-rlq-wfopezv stool softeners while taking narcotics. Discharge Orders/Prescriptions [...] mg tablet 600 mg PO BID Neosporin (qfq-lrw-wtpbv) 3.5mg-400 unit- 5,000 unit/gram ointment 1 applic [...] can be placed): Home, Self Care 10/09/24 5479 Austin Mares MD CC: Dr. Yamileth Aguirre MD; Dr. Ramiro Rosa MD; Dr. Salvador Rush MD Signed Normal [facility] Eosinophil percentageOrdered By: Yamileth Aguirre on 10-09-2024 Eosinophils/100 WBC (Bld) 5.5 % High 0-5 [facility] Erythrocyte distribution wid th ratioOrdered By: Yamileth Aguirre on 10-09-2024 Erythrocyte distribution width (RBC) [Ratio] 13.7 % 11.6-14.6 [facility] Erythrocyte distribution wid th standard deviationOrdered By: Yamileth Carla on 10-09-2024 Erythrocyte distribution width (RBC) [Ratio] 42.9 fl 35.1-43.9 [facility] Glomerular filtration rate ( GFR) estimation/1.73 sq m using serum, plasma, or whole bOrdered By: Yamileth Aguirre on 10-09-2024 GFR/1.73 sq M.predicted among non-blacks MDRD (S/P/Bld) [Vol rate/Area] 64 mL/min/{1.73_m2} >60 [facility] Comment on above: mL/min/1.73m2 CKD-EP I Creatinine Equation (2020) Hematocrit Auto (Bld) [Volum e fraction]Ordered By: Yamileth Aguirre on 10-09-2024 Hematocrit (Bld) [Volume fraction] 38.1 % Low 40-54 [facility] Hemoglobin measurementOrdere d By: Yamileth Aguirre on 10-09-2024 Hemoglobin (Bld) [Mass/Vol] 12.7 g/dL Low 13.0-16.5 [facility] Immature granulocytes/100 WB C Auto (Bld)Ordered By: Yamileth Aguirre on 10-09-2024 Immature granulocytes/100 WBC (Bld) 0.300 % 0.0-0.9 [facility] Comment on above: IG% - Immature Granu locytes (promyelocytes, myelocytes and metamyelocytes) > 1% indicates that a LEFT SHIFT is Present. Laboratory - Chemistry and C hemistry - challengeOrdered By: Yamileth Aguirre on 10-09-2024 AST [Catalytic activity/Vol] 40 U/L High <38 [facility] MCV (mean corpuscular volume ) determinationOrdered By: Yamileth Aguirre on 10-09-2024 MCV (RBC) [Entitic vol] 86.4 fL 80-94 [facility] MR/POSTOP.ANEon 10-09-2024 MR/POSTOP.ANE [facility] Medical Records Department [address] [place] [address] Anesthesia Postop Eval I 10/09/24 1302 MR#: [id number] Acct: [id number] Name: CHAN BURCIAGA Rep #: [id number] : 1980 43 From: Jeevan Madden CRNA PCP: Dr. Ramiro Rosa MD Status:ADM IN Y Race: C Location: [place]3 [id number] Anesthesia: Postop Eval I Current Vital Signs [...] completed: Yes 10/09/24 1303 Date Jeevan [place] RESIDENT IN DIAGNOSTIC RADIOLOGY Cosigner Signature: Date CC: Signed Normal [facility] MR/[id number] 10-09-2024 MR/POSTOPAN2 [facility] Medical Records Department [address] [place] [address] Anesthesia Postop Eval II 10/09/24 1338 MR#: [id number] Acct: [id number] Name: CHAN BURCIAGA Rep #: [id number] : 1980 43 From: Sandro Julian MD PCP: Dr. Ramiro Rosa MD Status:ADM IN Y Race: C Location: OR3 EE213-9 Anesthesia Postop Eval I Sum Postop Eval Completion status Anesthesia document: Postop Eval 1 completed: Yes Anesthesia Postop Eval I Summary Anesthesia Postop Eval I Summary: Anesthesia Postop Eval I: Assessment Summary Airway patent Yes 10/09/24 13:03 RESIDENT IN DIAGNOSTIC RADIOLOGY.SOBR Spontaneous unlabored Yes 10/09/24 13:03 RESIDENT IN DIAGNOSTIC RADIOLOGY.SOBR respirations Mental status Awake,Calm 10/09/24 13:03 RESIDENT IN DIAGNOSTIC RADIOLOGY.SOBR nausea No 10/09/24 13:03 RESIDENT IN DIAGNOSTIC RADIOLOGY.SOBR Vomiting No 10/09/24 13:03 RESIDENT IN DIAGNOSTIC RADIOLOGY.SOBR Anesthesia Postop Eval I: Fluid Summary Crystalloid volume administer 500 10/09/24 13:03 RESIDENT IN DIAGNOSTIC RADIOLOGY.SOBR (ml) Colloids volume administered ( ml) Blood Product volume administered (ml) Total IV fluid infused 500 10/09/24 13:03 RESIDENT IN DIAGNOSTIC RADIOLOGY.SOBR Anesthesia Postop Eval I: Summary Notes Anesthesia Complication No 10/09/24 13:03 RESIDENT IN DIAGNOSTIC RADIOLOGY.SOBR Anesthesia Complication Comment: Post-operative progress note Anesthesia: Postop Eval II Evaluation Mental status: Awake Pain Level: 0 nausea: No Vomiting: No 10/09/24 1338 Date Sandro Goodeignjd Signature: Date CC: Signed Normal [facility] Mean corpuscular hemoglobin (MCH) determinationOrdered By: [facility] on 10-09-2024 MCH (RBC) [Entitic mass] 28.8 pg 27.0-32.0 [facility] Mean corpuscular hemoglobin concentration (MCHC) determinationOrdered By: on 10-09-2024 MCHC (RBC) [Mass/Vol] 33.3 g/dL 32-36 [facility] Mean platelet volume determi nationOrdered By: Yamileth on 10-09-2024 Platelet mean volume (Bld) [Entitic vol] 8.8 fL 6.2-12.0 [facility] Monocyte percentageOrdered B y: Yamileth on 10-09-2024 Monocytes/100 WBC (Bld) 8.4 % 0-10 [facility] Neutrophil percentageOrdered By: on 10-09-2024 Neutrophils/100 WBC (Bld) 53.3 % 47-70 [facility] Nucleated red blood cell per centageOrdered By: [facility] on 10-09-2024 Nucleated RBC/100 WBC (Bld) [Ratio] 0 % 0-5 [facility] Operative Reporton 5 Operative Report [facility] Medical Records Department [address] [place] [address] Operative Report 10/09/24 1246 MR#: [id number] Acct: [id number] Name: CHAN BURCIAGA Rep #: [id number] : 1980 43 From: Salvador Rush MD PCP: Dr. Ramiro Rosa MD Status:ADM IN Location: MS3 OC814-9 Operative Report (Standard) Operative Information Date of Procedure: 10/09/24 Pre-Operative Diagnosis: Left obstructing kidney stone Post-Operative Diagnosis: Same Surgery/Procedure Performed: Cystoscopy and left stent placement employment representative: No Type of Anesthesia: General RN Documented [...] One of the bladder with a 21 Tongan rigid cystourethroscope found that he had a [...] MD; Dr. Salvador Rush MD Signed Normal [facility] Platelet countOrdered By: Cynthia Aguirre on 10-09-2024 Platelets (Bld) [#/Vol] 332 10*3/uL 150-450 [facility] Potassium measurement (mass/ volume)Ordered By: Yamileth Aguirre on 10-09-2024 Potassium (Unsp spec) [Mass/Vol] 3.8 mmol/L 3.3-5.1 [facility] RBC Auto (Bld) [#/Vol]Ordere d By: Yamileth Aguirre on 10-09-2024 RBC (Bld) [#/Vol] 4.41 10*6/uL Low 4.6-6.2 [facility] Serum creatinine measurement (mass/volume)Ordered By: Yamileth Aguirre on 10-09-2024 Creatinine [Mass/Vol] 1.39 mg/dL High 0.70-1.20 [facility] Serum globulin measurementOr dered By: Yamileth Aguirre on 10-09-2024 Globulin (S) [Mass/Vol] 2.2 g/dL 2.2-4.2 [facility] Serum glucose measurement (m ass/volume)Ordered By: Yamileth Aguirre on 10-09-2024 Glucose [Mass/Vol] 100 mg/dL High 70-99 [facility] Serum or plasma alanine rousseau otransferase (ALT) measurementOrdered By: Yamileth Aguirre on 10-09-2024 ALT [Catalytic activity/Vol] 55 U/L High <47 [facility] Serum or plasma albumin ashlee urement (mass/volume)Ordered By: Yamileth Aguirre 10-09-2024 Albumin [Mass/Vol] 3.9 g/dL 3.5-5.0 [facility] Serum or plasma albumin/glob ulin mass ratioOrdered By: Yamileth Aguirre 10-09-2024 Albumin/Globulin [Mass ratio] 1.8 {ratio} 0.9-2.4 [facility] Serum or plasma alkaline monica sphatase measurementOrdered By: Yamileth Aguirre 10-09-2024 ALP [Catalytic activity/Vol] 67 U/L 40-129 [facility] Serum or plasma calcium ashlee urement (mass/volume)Ordered By: Yamileth Aguirre 10-09-2024 Calcium [Mass/Vol] 9.1 mg/dL 7.6-11.0 [facility] Serum or plasma urea nitroge n measurement (mass/volume)Ordered By: Yamileth Aguirre 10-09-2024 Urea nitrogen [Mass/Vol] 17 mg/dL 4-19 [facility] Sodium levelOrdered By: Christopher Aguirre on 10-09-2024 Sodium [Moles/Vol] 137 mmol/L 133-145 [facility] Total proteinOrdered By: Trey umn White on 10-09-2024 Protein [Mass/Vol] 6.2 g/dL 5.9-8.4 [facility] White blood cell (WBC) count Ordered By: Yamileth White on 10-09-2024 WBC (Bld) [#/Vol] 9.1 10*3/uL 4.4-11.0 [facility] 36on 10-08-2024 36 Agree, thank you [facility] 36 S: Patient's caregiv er, Iesha, spoke with [facility] nurse regarding abdominal pain and back pain [...] that Guideline.) Protocols used: Abdominal Pain -ADULT-AH [facility] Abdomen/Pelvis W IV Cont ONL Yon 10-08-2024 Abdomen/Pelvis W IV Cont ONLY [facility] Imaging Services [address] [place] [address] Abdomen/Pelvis W IV Cont ONLY MR#: [id number] Acct: [id number] Name: CHAN BURCIAGA Rep #: [id number] : 1980 M 43 From: Jd Garza PCP: Dr. Ramiro Rosa MD Status: REG ER Study: Abdomen/Pelvis W IV Cont ONLY Date of Exam: Exam# [id number] Ordering Dr: Brad Goins MD PROCEDURE: ABDOMEN/PELVIS [...] onto the urinary bladder wall. Reading Location: [facility] CC: Dr. Ramiro Rosa MD; Dr. Brad Goins MD Medical Records Receptionist: Signed Normal [facility] Absolute lymphocyte countOrd ered By: Brad Goins on 10-08-2024 Lymphocytes Auto (Unsp spec) [#/Vol] 2.64 10*3/uL 0.83-4.51 [facility] Absolute neutrophil countOrd ered By: Brad Goins on 10-08-2024 Neutrophils (Bld) [#/Vol] 9.5 10*3/uL High 2.0-7.7 [facility] Anion gap in Serum or Plasma Ordered By: Brad Goins on 10-08-2024 Anion gap [Moles/Vol] 15 mmol/L 5- [facility] Automated lymphocyte count a s percentage of total leukocytesOrdered By: Brad Goins on 10-08-2024 Lymphocytes/100 WBC Auto (Unsp spec) 19.2 % 19- [facility] BUN/creatinine ratioOrdered By: Brad Goins on 10-08-2024 Urea nitrogen/Creatinine [Mass ratio] 13.4 mg/mg 10- [facility] Basophil percentageOrdered B y: Brad Goins on 10-08-2024 Basophils/100 WBC (Bld) 0.5 % 0-1 [facility] Bilirubin Test strip Ql (U)O rdered By: Brad Goins on 10-08-2024 Bilirubin Ql (U) Negative Negative [facility] Bilirubin, totalOrdered By: Brad Goins on 10-08-2024 Bilirubin [Mass/Vol] 0.33 mg/dL 0.00-1.30 [facility] CBC W/Diff, Automatedon Absolute Lymph 2.64 X10 3/uL Normal 0.83-4.51 [facility] Comment on above: Performed By: #### L 500.4050, L100.0100 #### [facility] Laboratory [address] [place], [place], [id number] Absolute Neut 9.5 X10 3/uL High 2.0-7.7 [facility] Comment on above: Performed By: #### L 500.4050, L100.0100 #### [facility] [address] [place], [address] Basophils/100 WBC (Bld) 0.5 % Normal 0-1 [facility] Comment on above: Performed By: #### L 500.4050, L100.0100 #### [facility] [address] [place], [address] Eosinophils/100 WBC (Bld) 2.9 % Normal 0-5 [facility] Comment on above: Performed By: #### L 500.4050, L100.0100 #### [facility] [address] [place], [address] Erythrocyte distribution width (RBC) [Ratio] 13.4 % Normal 11.6-14.6 [facility] Comment on above: Performed By: #### L 500.4050, L100.0100 #### [facility] [address] [place], [address] Hematocrit (Bld) [Volume fraction] 40.6 % Normal 40-54 [facility] Comment on above: Performed By: #### L 500.4050, L100.0100 #### [facility] [address] [place], [address] Hemoglobin (Bld) [Mass/Vol] 13.7 g/dL Normal 13.0-16.5 [facility] Comment on above: Performed By: #### L 500.4050, L100.0100 #### [facility] [address] [place], [address] IG% 0.700 Normal 0.0-0.9 [facility] Comment on above: Result Comment: IG% - Immature Granulocytes (promyelocytes, myelocytes and metamyelocytes) > 1% indicates that a LEFT SHIFT is Present. Performed By: #### L 500.4050, L100.0100 #### [facility] [address] [place], [address] Lymphocytes/100 WBC (Bld) 19.2 % Normal 19-41 [facility] Comment on above: Performed By: #### L 500.4050, L100.0100 #### [facility] [address] [place], [address] MCH (RBC) [Entitic mass] 29.0 pg Normal 27.0-32.0 [facility] Comment on above: Performed By: #### L 500.4050, L100.0100 #### [facility] [address] [place], [address] MCHC (RBC) [Mass/Vol] 33.7 g/dL Normal 32-36 [facility] Comment on above: Performed By: #### L 500.4050, L100.0100 #### [facility] [address] [place], [address] MCV (RBC) [Entitic vol] 85.8 fL Normal 80-94 [facility] Comment on above: Performed By: #### L 500.4050, L100.0100 #### [facility] [address] [place], [address] Monocytes/100 WBC (Bld) 8.0 % Normal 0-10 [facility] Comment on above: Performed By: #### L 500.4050, L100.0100 #### [facility] [address] [place], [address] Neutrophils/100 WBC (Bld) 68.7 % Normal 47-70 [facility] Comment on above: Performed By: #### L 500.4050, L100.0100 #### [facility] [address] [place], [address] Nucleated RBC (Bld) [#/Vol] 0 10*3/uL Normal 0-5 [facility] Comment on above: Performed By: #### L 500.4050, L100.0100 #### [facility] [address] [place], [address] Platelet mean volume (Bld) [Entitic vol] 9.0 fL Normal 6.2-12.0 [facility] Comment on above: Performed By: #### L 500.4050, L100.0100 #### [facility] [address] [place], [address] Platelets (Bld) [#/Vol] 327 10*3/uL Normal 150-450 [facility] Comment on above: Performed By: #### L 500.4050, L100.0100 #### [facility] [address] [place], [address] RBC (Bld) [#/Vol] 4.73 10*6/uL Normal 4.6-6.2 [facility] Comment on above: Performed By: #### L 500.4050, L100.0100 #### [facility] [address] [place], [address] RDW SD 41.9 fl Normal 35.1-43.9 [facility] Comment on above: Performed By: #### L 500.4050, L100.0100 #### [facility] [address] [place], [address] WBC (Bld) [#/Vol] 13.8 10*3/uL High 4.4-11.0 [facility] Comment on above: Performed By: #### L 500.4050, L100.0100 #### [facility] [address] [place], [address] CNOVstevie 10-08-2024 CNOV Office Visit (UCWSTR ) CHAN BURCIAGA ([id number]) 1980 M Date Time Provider Department 10/08/24 4:15 PM [facility] During your visit today, we recorded the following information about you: Temperature Pulse Respiration Blood pressure 97 degrees 97/minute 20/minute 134/88 Weight 85 kg Zach Cardenas MD 10/08/2024 4:34 PM Signed [facility] Subjective Chan Burciaga is a [...] He is not ill-appearing. Comments: Accompanied by snf caregiver Eyes: Extraocular Movements: Extraocular movements intact. [...] kidney stones [Z87.442] Order(s):UA DIP, URINE (POC) [3010917] Order #: [id number]. #:[id number] Prescriptions as of 10/11/2024 - clonazePAM [...] tablet Take 500 mg by mouth. - Noitafta-EwxfafhomVr-Jpjyhe vikram 3.5-500-10,000 cv-qmpy-jldg oint APPLY TOPICALLY TO INSIDE OF NOSE 3 TIMES DAILY NEEDED FOR DR (more content not included)... Normal [facility] Carbon dioxide, total [Moles /volume] in Central venous bloodOrdered By: Brad Goins on 10-08-2024 CO2 [Moles/Vol] 19.3 mmol/L Low 21.0-32.0 [facility] Chloride assayOrdered By: Hemanth Goins on 10-08-2024 Chloride [Moles/Vol] 101 mmol/L 98-108 [facility] Comprehensive Metabolic Prof ilon 10-08-2024 Albumin [Mass/Vol] 4.4 g/dL Normal 3.5-5.0 [facility] Comment on above: Performed By: #### L 500.4050, L100.0100 #### [facility] [address] [place], [address] Albumin/Globulin [Mass ratio] 1.6 {ratio} Normal 0.9-2.4 [facility] Comment on above: Performed By: #### L 500.4050, L100.0100 #### [facility] [address] [place], [address] ALK PHOS 75 U/L Normal 40-129 [facility] Comment on above: Performed By: #### L 500.4050, L100.0100 #### [facility] [address] [place], [address] ALT [Catalytic activity/Vol] 66 U/L High <=46 [facility] Comment on above: Performed By: #### L 500.4050, L100.0100 #### [facility] [address] [place], [address] AST [Catalytic activity/Vol] 51 U/L High <=37 [facility] Comment on above: Performed By: #### L 500.4050, L100.0100 #### [facility] [address] [place], [address] Bilirubin [Mass/Vol] 0.33 mg/dL Normal 0.00-1.30 [facility] Comment on above: Performed By: #### L 500.4050, L100.0100 #### [facility] [address] [place], [address] BUN/CRE 13.4 RATIO Normal 10-20 [facility] Comment on above: Performed By: #### L 500.4050, L100.0100 #### [facility] [address] [place], [address] Calcium [Mass/Vol] 9.9 mg/dL Normal 7.6-11.0 [facility] Comment on above: Performed By: #### L 500.4050, L100.0100 #### [facility] [address] [place], [address] Chloride [Moles/Vol] 101 mmol/L Normal 98-108 [facility] Comment on above: Performed By: #### L 500.4050, L100.0100 #### [facility] [address] [place], [address] CO2 [Moles/Vol] 19.3 mmol/L Low 21.0-32.0 [facility] Comment on above: Performed By: #### L 500.4050, L100.0100 #### [facility] [address] [place], [address] Creatinine [Mass/Vol] 1.32 mg/dL High 0.70-1.20 [facility] Comment on above: Performed By: #### L 500.4050, L100.0100 #### [facility] [address] [place], [address] ECRCL 72.57 ml/min Normal 50-250 [facility] Comment on above: Performed By: #### L 500.4050, L100.0100 #### [facility] [address] [place], [address] GAP 15 Normal 5-15 [facility] Comment on above: Performed By: #### L 500.4050, L100.0100 #### [facility] [address] [place], [address] GFR/1.73 sq M.predicted among non-blacks MDRD (S/P/Bld) [Vol rate/Area] 68 mL/min/{1.73_m2} Normal >60 [facility] Comment on above: Result Comment: mL/m in/1.73m2 CKD-EPI Creatinine Equation (2020) Performed By: #### L 500.4050, L100.0100 #### [facility] [address] [place], [address] Globulin (S) [Mass/Vol] 2.7 g/dL Normal 2.2-4.2 [facility] Comment on above: Performed By: #### L 500.4050, L100.0100 #### [facility] [address] [place], [address] Glucose [Mass/Vol] 100 mg/dL High 70-99 [facility] Comment on above: Performed By: #### L 500.4050, L100.0100 #### [facility] [address] [place], [address] Potassium [Moles/Vol] 4.0 mmol/L Normal 3.3-5.1 [facility] Comment on above: Performed By: #### L 500.4050, L100.0100 #### [facility] [address] [place], [address] Sodium [Moles/Vol] 135 mmol/L Normal 133-145 [facility] Comment on above: Performed By: #### L 500.4050, L100.0100 #### [facility] [address] [place], [address] T PROT 7.1 g/dL Normal 5.9-8.4 [facility] Comment on above: Performed By: #### L 500.4050, L100.0100 #### [facility] [address] [place], [address] Urea nitrogen [Mass/Vol] 18 mg/dL Normal 4-19 [facility] Comment on above: Performed By: #### L 500.4050, L100.0100 #### [facility] [address] [place], [address] Emergency Department Summary on 10-08-2024 Emergency Department Summary [facility] Medical Records Department [address] [place] [address] Emergency Department Summary 10/08/24 MR#: [id number] Acct: [id number] Name: CHAN BURCIAGA Rep #: [id number] : 1980 43 From: Brad Goins MD PCP: Dr. Ramiro Rosa MD Status:ADM [facility] - GI History of Present [...] or Hematuria Narrative Narrative: 43-year-old male from snf. History of hypertension kidney stones. Said the [...] No PFSH PFS Medical History Lives in snf Arthritis Back pain Non-smoker Shortness of breath [...] History mg-400 unit-5,000 unit/gram top oint (Neosporin (ffu-etn-txhub)) oxcarbazepine 600 mg tablet 600 mg PO [...] Physical E (more content not included)... Normal [facility] Eosinophil percentageOrdered By: Brad Goins on 10-08-2024 Eosinophils/100 WBC (Bld) 2.9 % 0-5 [facility] Erythrocyte distribution wid th ratioOrdered By: Brad Goins on 10-08-2024 Erythrocyte distribution width (RBC) [Ratio] 13.4 % 11.6-14.6 [facility] Erythrocyte distribution wid th standard deviationOrdered By: Brad Goins on 10-08-2024 Erythrocyte distribution width (RBC) [Ratio] 41.9 fl 35.1-43.9 [facility] Glomerular filtration rate ( GFR) estimation/1.73 sq m using serum, plasma, or whole bOrdered By: Brad Goins on 10-08-2024 GFR/1.73 sq M.predicted among non-blacks MDRD (S/P/Bld) [Vol rate/Area] 68 mL/min/{1.73_m2} >60 [facility] Comment on above: mL/min/1.73m2 CKD-EP I Creatinine Equation (2020) H AND P Exam - [facility] 10-08-2024 H&P Exam - Hospitalist [facility] Medical Records Department [address] [place] [address] H P Exam - Hospitalist 10/08/242001 MR#: [id number] Acct: [id number] Name: CHAN BURCIAGA Rep #: [id number] : 1980 43 From: Yamileth Aguirre MD PCP: Dr. Ramiro Rosa MD Status:ADM IN Location: [facility] HPI - General General Date of Admission: 10/08/24 Date of Service: 10/08/24 Chief Complaint: Abdominal pain, flank pain. HPI Narrative The patient is a 43 y/o M w/ intellectual debilities living in a snf w/ PMHx: CKD stage II per GFR trending, HTN, HLD, Anxiety and Depression/Mood disorder, Obesity who presents to the [facility] ED on 10/08/24 with history [...] after morphine but discussion with patient and snf staff he rates his discomfort previously potentially [...] x 1. ED discussed case with urology. [facility] Medical History Lives in snf Arthritis Back pain Non-smoker Shortness of breath [...] History mg-400 unit-5,000 unit/gram top oint (Neosporin (lay-lbk-zrprt)) oxcarbazepine 600 mg tablet 600 mg PO [...] with oth (more content not included)... Normal [facility] Hematocrit Auto (Bld) [Volum e fraction]Ordered By: Brad Goins on 10-08-2024 Hematocrit (Bld) [Volume fraction] 40.6 % 40-54 [facility] Hemoglobin measurementOrdere d By: Brad Goins on 10-08-2024 Hemoglobin (Bld) [Mass/Vol] 13.7 g/dL 13.0-16.5 [facility] Immature granulocytes/100 WB C Auto (Bld)Ordered By: Brad Goins on 10-08-2024 Immature granulocytes/100 WBC (Bld) 0.700 % 0.0-0.9 [facility] Comment on above: IG% - Immature Granu locytes (promyelocytes, myelocytes and metamyelocytes) > 1% indicates that a LEFT SHIFT is Present. Ketones Test strip Ql (U)Ord ered By: Brad Goins on 10-08-2024 Ketones Ql (U) Negative Negative [facility] - Chemistry and C hemistry - challengeOrdered By: Brad Goins on 10-08-2024 AST [Catalytic activity/Vol] 51 U/L High <38 [facility] MCV (mean corpuscular volume ) determinationOrdered By: Brad Goins on 10-08-2024 MCV (RBC) [Entitic vol] 85.8 fL 80-94 [facility] Mean corpuscular hemoglobin (MCH) determinationOrdered By: Brad Goins on 10-08-2024 MCH (RBC) [Entitic mass] 29.0 pg 27.0-32.0 [facility] Mean corpuscular hemoglobin concentration (MCHC) determinationOrdered By: Brad Goins on 10-08-2024 MCHC (RBC) [Mass/Vol] 33.7 g/dL 32-36 [facility] Mean platelet volume determi nationOrdered By: Brad Goins on 10-08-2024 Platelet mean volume (Bld) [Entitic vol] 9.0 fL 6.2-12.0 [facility] Microscopic analysis of urin e for red blood cells (RBC)Ordered By: Bard Goins on 10-08-2024 Microscopic analysis of urine for red blood cells (RBC) > 100 SEEN /hpf 0-5 [facility] Monocyte percentageOrdered B y: Brad Goins on 10-08-2024 Monocytes/100 WBC (Bld) 8.0 % 0-10 [facility] Mucus LM Ql (Urine sed)Order ed By: Brad Goins on 10-08-2024 Mucus Ql (Urine sed) 0 SEEN /hpf [facility] Neutrophil percentageOrdered By: Brad Goins on 10-08-2024 Neutrophils/100 WBC (Bld) 68.7 % 47-70 [facility] Nitrite Test strip Ql (U)Ord ered By: Brad Goins on 10-08-2024 Nitrite Ql (U) Negative Negative [facility] Nucleated red blood cell per centageOrdered By: Brad Goins on 10-08-2024 Nucleated RBC/100 WBC (Bld) [Ratio] 0 % 0-5 [facility] Platelet countOrdered By: Hemanth Goins on 10-08-2024 Platelets (Bld) [#/Vol] 327 10*3/uL 150-450 [facility] Potassium measurement (mass/ volume)Ordered By: Brad Goins on 10-08-2024 Potassium (Unsp spec) [Mass/Vol] 4.0 mmol/L 3.3-5.1 [facility] Protein Test strip Ql (U)Ord ered By: Brad Goins on 10-08-2024 Protein Ql (U) 30 mg/dl High Negative [facility] RBC Auto (Bld) [#/Vol]Ordere d By: Brad Goins on 10-08-2024 RBC (Bld) [#/Vol] 4.73 10*6/uL 4.6-6.2 [facility] Serum creatinine measurement (mass/volume)Ordered By: Brad Goins on 10-08-2024 Creatinine [Mass/Vol] 1.32 mg/dL High 0.70-1.20 [facility] Serum globulin measurementOr dered By: Brad Goins on 10-08-2024 Globulin (S) [Mass/Vol] 2.7 g/dL 2.2-4.2 [facility] Serum glucose measurement (m ass/volume)Ordered By: Brad Goins on 10-08-2024 Glucose [Mass/Vol] 100 mg/dL High 70-99 [facility] Serum or plasma alanine rousseau otransferase (ALT) measurementOrdered By: Brad Goins on 10-08-2024 ALT [Catalytic activity/Vol] 66 U/L High <47 [facility] Serum or plasma albumin ashlee urement (mass/volume)Ordered By: Brad Goins on 10-08-2024 Albumin [Mass/Vol] 4.4 g/dL 3.5-5.0 [facility] Serum or plasma albumin/glob ulin mass ratioOrdered By: Brad Goins on 10-08-2024 Albumin/Globulin [Mass ratio] 1.6 {ratio} 0.9-2.4 [facility] Serum or plasma alkaline monica sphatase measurementOrdered By: Brad Goins on 10-08-2024 ALP [Catalytic activity/Vol] 75 U/L 40-129 [facility] Serum or plasma calcium ashlee urement (mass/volume)Ordered By: Brad Goins on 10-08-2024 Calcium [Mass/Vol] 9.9 mg/dL 7.6-11.0 [facility] Serum or plasma urea nitroge n measurement (mass/volume)Ordered By: Brad Goins on 10-08-2024 Urea nitrogen [Mass/Vol] 18 mg/dL 4-19 [facility] Sodium levelOrdered By: Brad Goins on 10-08-2024 Sodium [Moles/Vol] 135 mmol/L 133-145 [facility] Squamous epithelial cells de tection in urine sediment by light microscopyOrdered By: Brad Goins on 10-08-2024 Epithelial cells.squamous LM Ql (Urine sed) 0 SEEN /hpf 0-5 [facility] Total proteinOrdered By: Marek Goins on 10-08-2024 Protein [Mass/Vol] 7.1 g/dL 5.9-8.4 [facility] UA DIP, URINE (POC)on 2024 BILIRUBIN UA (POCT) Negative Negative [facility] CLARITY UA (POCT) Cloudy [facility] COLOR UA (POCT) Dark yellow [facility] d [facility] GLUCOSE UA (POCT) Negative Negative mg/dL [facility] Hemoglobin Ql (U) Large Abnormal Negative [facility] Interpretation and review of laboratory results Abnormal [facility] KETONE UA (POCT) Negative Negative mg/dL [facility] LEUKOCYTES UA (POCT) Negative Negative [facility] NITRITE UA (POCT) Negative Negative [facility] PH UA (POCT) 7 4.5 - 8.0 [facility] Protein Ql (U) 30 mg/dL Abnormal Negative [facility] SPECIFIC GRAVITY UA (POCT) 1.02 1.005 - 1.030 [facility] UROBILINOGEN UA (POCT) 1 Lin l E.U./dL [facility] Location:[facility], [address] [place] [address], [place], [place], [id number] [place] [address] POINT OF CARE [facility] Urinalysis, Completeon 10-08 BACTERIA 2+ /hpf Normal None Seen [facility] Comment on above: Order Comment: CLEAN CATCH Performed By: #### L 400.0001 ####[facility] [address] [place], [address] RBC > 100 SEEN Normal 0-5 [facility] Comment on above: Order Comment: CLEAN CATCH Performed By: #### L 400.0001 ####[facility] [address] [place], [address] EPI,SQUAMOUS 0 SEEN Normal 0-5 [facility] Comment on above: Order Comment: CLEAN CATCH Performed By: #### L 400.0001 ####[facility] [address] [place], [address] Mucus Ql (Urine sed) 0 SEEN Normal [facility] Comment on above: Order Comment: CLEAN CATCH Performed By: #### L 400.0001 ####[facility] [address] [place], [address] WBC 0 SEEN Normal 0-5 [facility] Comment on above: Order Comment: CLEAN CATCH Performed By: #### L 400.0001 ####[facility] [address] [place], [address] Urine clarityOrdered By: Marek Goins on 10-08-2024 Clarity (U) Cloudy Clear [facility] Urine color determinationOrd ered By: Brad Goins on 10-08-2024 Color (U) Yellow Yellow [facility] Urine glucose detectionOrder ed By: Brad Goins on 10-08-2024 Glucose Ql (U) Normal mg/dl Normal [facility] Urine leukocyte esterase det ection by dipstickOrdered By: Brad Goins on 10-08-2024 Leukocyte esterase Test strip Ql (U) 25 /ul High Negative [facility] Urine pHOrdered By: Brad marquez on 10-08-2024 pH (U) 7.0 [pH] 5.0 - 8.0 [facility] Urine sediment bacteria coun t by microscopy (number/high power field)Ordered By: Brad Goins on 10-08-2024 Bacteria LM.HPF (Urine sed) [#/Area] 2 /[HPF] None Seen [facility] Urine specific gravity measu rementOrdered By: Brad Goins on 10-08-2024 Specific gravity (U) [Rel density] 1.010 1.002-1.03 0 [facility] Urine urobilinogen measureme ntOrdered By: Brad Goins on 10-08-2024 Urobilinogen Ql (U) Normal mg/dl Normal [facility] White blood cell (WBC) count Ordered By: Brad Goins on 10-08-2024 WBC (Bld) [#/Vol] 13.8 10*3/uL High 4.4-11.0 [facility] White blood cell countOrdere d By: Brad Goins on 10-08-2024 White blood cell count 0 SEEN /hpf 0-5 [facility] 36on 10-02-2024 36 Reviewed chart. Refi ll appropriate. RX sent. Normal [facility] 36 Pharmacy sent over f ax requesting refills for a 31 day supply with 11 refills OR 93 day supply with 3 refills. I pended a 93 day supply with 1 refill. Next appt: 10/15/2024 Normal [facility] Bacteria Ur Culton Bacteria identified Cx Nom (U) ORGANISM ID: 1 <10,000 CFU/ml Normal urogenital princess Normal [facility] Comment on above: Performed By: #### 6 30-4 #### [facility] CLIA [id number] [address] [place] [address] [place] CNOVon 09-27-2024 CNOV Office Visit (UCWSTR ) CHAN BURCIAGA ([id number]) 1980 M Date Time Provider Department 09/27/24 10:00 AM [facility] During your visit today, we recorded the following information about you: Temperature Pulse Blood pressure Weight 97.1 degrees 96/minute 110/66 86.2 kg Sean Verduzco APRN.[facility] 09/27/2024 10:14 AM Signed [facility] Subjective Chan Burciaga is a [...] of care. This note was generated using [employer] software. It may contain errors in wording, punctuation, or spelling. Sean Verduzco APRN.[employer] History and Record Review Clinical information obtained from an independent historian. History obtained from or confirmed by: other (see comments) and parent. External record(s) reviewed: prior outpatient record. Disposition The patient was discharged. Procedures Referring Provider: SELF [200] Allergies As of Date: 09/27/2024 Noted Allergy Reaction RISPERIDONE 03/10/2015 1 - Mental Status Change Date Reviewed: 09/27/2024 Reviewed by: Sean Verduzco APRN.[employer] - Fully Assessed Reason for Visit: Hematuria [335] Primary Visit Diagnosis:Acute cystitis with hematuria [N30.01] Order(s):BACTERIAL CULTURE, URINE [SQURCUL] Order #: [id number]. #:[id number] UA DIP, URINE (POC) [[id number]] Order #: [id number] UA DIP, URINE (POC) [[id number]] Order #: [id number]. #:[id number] -LAB cephALEXin (KEFLEX) 500 mg capsuleTake 1 [...] BY M (more content not included)... Normal [facility] UA DIP, URINE (POC)on 2024 BILIRUBIN UA (POCT) Small Abnormal Negative [facility] CLARITY UA (POCT) Cloudy [facility] COLOR UA (POCT) [facility] GLUCOSE UA (POCT) Negative Negative mg/dL [facility] Hemoglobin Ql (U) Large Abnormal Negative [facility] Interpretation and review of laboratory results Abnormal [facility] KETONE UA (POCT) Negative Negative mg/dL [facility] LEUKOCYTES UA (POCT) Negative Negative [facility] NITRITE UA (POCT) Negative Negative [facility] PH UA (POCT) 6.5 4.5 - 8.0 [facility] Protein Ql (U) 100 mg/dL Abnormal Negative [facility] SPECIFIC GRAVITY UA (POCT) 1.02 1.005 - 1.030 [facility] UROBILINOGEN UA (POCT) 1 Lin l E.U./dL [facility] Location:[address], [place], [address] [facility] POINT OF CARE [facility] 36on 09-24-2024 36 Medication name: nab [...] medication tab): 07/23/24 Updated/Validated preferred pharmacy: Yes Iain MCBRIDE ([facility]) - [facility] [address] [facility] [address] [address] Patient instructed to contact the pharmacy prior to picking up the medication: Yes [place] [id number] 36 Notified Brad. [place] [address] Yes, he is still see ing Dr. Rosa and yes I will continue to sign for his home care [place] [address] Name of caller: Brad ([facility]) Contact phone number: [phone] Relationship to Patient: na Provider: Dr. Rosa Practice: [facility] Chief Complaint/Reason for Call: Calling to advise Pt will have re-cert for longterm next week. Needs to verify that Pt is still seeing Dr. Rosa and that Dr. Rosa will continue to follow Pt for services. Please advise Best time of day caller can be reached: Any AM Patient advised that office/PCP has 24-48 business hours to return their call: Yes [facility] 3609-04-2024 36 Rx sent. Follow up a s scheduled. [place] [address] Received fax for ref ill request. Pended. [place] [id number] 36 Prescription Request : Last medication check: 10/24/2023 Last physical exam: 04/20/2024 Next scheduled appointment: 10/15/2024 CSA on file (date): N/A Last urine drug screen: N/A Last date of refill on this medication 05/01/[address] 08-10-2024 [address] 07-23-2024 36 Medication name: nab quanetone (Relafen) 500 MG tablet Medication dosage: 500 [...] prior to picking up the medication: Yes [address] 07-15-2024 36 Notified Brad. [place] [address] Okay to continue, ye s we will sign and follow [place] [address] Name of caller: Brad Contact phone number: [phone] Relationship to Patient: [facility] Provider: Dr. Rosa Practice: [facility] Chief Complaint/Reason for Call: Brad called and stated Chan is doing fine and is asking to re certify patient for longterm to be continued and is asking to have a call back by 07/17/24. Brad is asking to follow and sign the plan of care. Please advise. Best time of day caller can be reached: any Patient advised that office/PCP has 24-48 business hours to return their call: Yes [address] 07-14-2024 36 Medication name: doxazosin (Cardura) [...] to picking up the medication: Yes Normal [facility] Trileptal-Oxcarbazepineon OXCARBAZEPINE 31 ug/mL Normal - [facility] Comment on above: Result Comment: This test was developed and its performance characteristics determined by [employer]. It has not been cleared or approved by the Food and Drug Administration. Detection Limit = 1 Performed at: [facility] [address] [id number] Telephone Service Representative: Andra Sawant MD, Phone: [phone] Performed By: #### L 100.0500, L500.4050, L3800.1700 ####[facility] [address] [place], [address] Albumin to globulin ratioOrd ered By: Dajuan Morrison on 06-26-2024 Albumin/Globulin [Mass ratio] 1.2 {ratio} 0.9-2.4 [facility] Bilirubin, totalOrdered By: Dajuan Morrison on 06-26-2024 Bilirubin [Mass/Vol] 0.50 mg/dL 0.20-1.00 [facility] Comment on above: For patients on eltr ombopag therapy, use of Dimension [place] TBIL is not recommended. Blood urea nitrogen (BUN)/cr eatinine ratioOrdered By: Dajuan Morrison on 06-26-2024 Urea nitrogen/Creatinine [Mass ratio] 15.7 mg/mg 10-20 [facility] CBC-Complete Blood Cnt No Di ffon 06-26-2024 Erythrocyte distribution width (RBC) [Ratio] 13.3 % Normal 11.6-14.6 [facility] Comment on above: Performed By: #### L 100.0500, L500.4050, L3800.1700 ####[facility] [address] [place], [address] Hematocrit (Bld) [Volume fraction] 42.3 % Normal 40-54 [facility] Comment on above: Performed By: #### L 100.0500, L500.4050, L3800.1700 ####[facility] [address] [place], [address] Hemoglobin (Bld) [Mass/Vol] 14.0 g/dL Normal 13.0-16.5 [facility] Comment on above: Performed By: #### L 100.0500, L500.4050, L3800.1700 ####[facility] [address] [place], [address] MCH (RBC) [Entitic mass] 28.6 pg Normal 27.0-32.0 [facility] Comment on above: Performed By: #### L 100.0500, L500.4050, L3800.1700 ####[facility] [address] [place], [address] MCHC (RBC) [Mass/Vol] 33.1 g/dL Normal 32-36 [facility] Comment on above: Performed By: #### L 100.0500, L500.4050, L3800.1700 ####[facility] [address] [place], [address] MCV (RBC) [Entitic vol] 86.5 fL Normal 80-94 [facility] Comment on above: Performed By: #### L 100.0500, L500.4050, L3800.1700 ####[facility] [address] [place], [address] Platelet mean volume (Bld) [Entitic vol] 9.3 fL Normal 6.2-12.0 [facility] Comment on above: Performed By: #### L 100.0500, L500.4050, L3800.1700 ####[facility] [address] [place], [address] Platelets (Bld) [#/Vol] 324 10*3/uL Normal 150-450 [facility] Comment on above: Performed By: #### L 100.0500, L500.4050, L3800.1700 ####[facility] [address] [place], [address] RBC (Bld) [#/Vol] 4.89 10*6/uL Normal 4.6-6.2 [facility] Comment on above: Performed By: #### L 100.0500, L500.4050, L3800.1700 ####[facility] [address] [place], [address] RDW SD 42.1 fl Normal 35.1-43.9 [facility] Comment on above: Performed By: #### L 100.0500, L500.4050, L3800.1700 ####[facility] [address] [place], [address] WBC (Bld) [#/Vol] 9.2 10*3/uL Normal 4.4-11.0 [facility] Comment on above: Performed By: #### L 100.0500, L500.4050, L3800.1700 ####[facility] [address] [place], [address] Carbon dioxide measurementOr dered By: aDjuan Morrison on 06-26-2024 CO2 [Moles/Vol] 23.0 mmol/L 21.0-32.0 [facility] Chloride measurementOrdered By: Dajuan Morrison on 06-26-2024 Chloride [Moles/Vol] 107 mmol/L 98-107 [facility] Comprehensive Metabolic Prof ilon 06-26-2024 Albumin [Mass/Vol] 3.7 g/dL Normal 3.2-5.0 [facility] Comment on above: Performed By: #### L 100.0500, L500.4050, L3800.1700 ####[facility] [address] [place], [address] Albumin/Globulin [Mass ratio] 1.2 {ratio} Normal 0.9-2.4 [facility] Comment on above: Performed By: #### L 100.0500, L500.4050, L3800.1700 ####[facility] [address] [place], [address] ALK P 63 U/L Normal 45-117 [facility] Comment on above: Performed By: #### L 100.0500, L500.4050, L3800.1700 ####[facility] [address] [place], [address] ALT [Catalytic activity/Vol] 99 U/L High 16-61 [facility] Comment on above: Performed By: #### L 100.0500, L500.4050, L3800.1700 ####[facility] [address] [place], [address] AST [Catalytic activity/Vol] 41 U/L High 15-37 [facility] Comment on above: Performed By: #### L 100.0500, L500.4050, L3800.1700 ####[facility] [address] [place], [address] Bilirubin [Mass/Vol] 0.50 mg/dL Normal 0.20-1.00 [facility] Comment on above: Result Comment: For patients on eltrombopag therapy, use of Dimension [place] TBIL is not recommended. Performed By: #### L 100.0500, L500.4050, L3800.1700 ####[facility] [address] [place], [address] BUN/CRE 15.7 RATIO Normal 10-20 [facility] Comment on above: Performed By: #### L 100.0500, L500.4050, L3800.1700 ####[facility] [address] [place], [address] CA,Total 9.4 mg/dL Normal 8.5-10.1 [facility] Comment on above: Performed By: #### L 100.0500, L500.4050, L3800.1700 ####[facility] [address] [place], [address] Chloride [Moles/Vol] 107 mmol/L Normal 98-107 [facility] Comment on above: Performed By: #### L 100.0500, L500.4050, L3800.1700 ####[facility] [address] [place], [address] CO2 [Moles/Vol] 23.0 mmol/L Normal 21.0-32.0 [facility] Comment on above: Performed By: #### L 100.0500, L500.4050, L3800.1700 ####[facility] [address] [place], [address] Creatinine [Mass/Vol] 1.08 mg/dL Normal 0.70-1.30 [facility] Comment on above: Result Comment: The validity of the calculated GFR GFRAA in patients over 70 years has not been determined. Clinical correlation is essential. Performed By: #### L 100.0500, L500.4050, L3800.1700 ####[facility] [address] [place], [address] EST GFR - AA 95 mL/min Normal >60 [facility] Comment on above: Result Comment: Afri can Syrian GFR Calc Performed By: #### L 100.0500, L500.4050, L3800.1700 ####[facility] [address] [place], [address] GAP 8 Normal 5-15 [facility] Comment on above: Performed By: #### L 100.0500, L500.4050, L3800.1700 ####[facility] [address] [place], [address] GFR/1.73 sq M.predicted among non-blacks MDRD (S/P/Bld) [Vol rate/Area] 78 mL/min/{1.73_m2} Normal >60 [facility] Comment on above: Result Comment: Non- GFR Calc Performed By: #### L 100.0500, L500.4050, L3800.1700 ####[facility] [address] [place], [address] Globulin (S) [Mass/Vol] 3.2 g/dL Normal 2.2-4.2 [facility] Comment on above: Performed By: #### L 100.0500, L500.4050, L3800.1700 ####[facility] [address] [place], [address] Glucose [Mass/Vol] 107 mg/dL High 74-106 [facility] Comment on above: Result Comment: Fast ing Glucose result from 100 to 125 mg/dL suggests IMPAIRED HOMEOSTASIS per A.D.A. criteria. Performed By: #### L 100.0500, L500.4050, L3800.1700 ####[facility] [address] [place], [address] Potassium [Moles/Vol] 3.8 mmol/L Normal 3.5-5.1 [facility] Comment on above: Performed By: #### L 100.0500, L500.4050, L3800.1700 ####[facility] [address] [place], [address] Sodium [Moles/Vol] 138 mmol/L Normal 136-145 [facility] Comment on above: Performed By: #### L 100.0500, L500.4050, L3800.1700 ####[facility] [address] [place], [address] T PROT 6.9 g/dL Normal 6.4-8.2 [facility] Comment on above: Performed By: #### L 100.0500, L500.4050, L3800.1700 ####[facility] [address] [place], [address] Urea nitrogen [Mass/Vol] 17 mg/dL Normal 7-18 [facility] Comment on above: Performed By: #### L 100.0500, L500.4050, L3800.1700 ####[facility] [address] [place], [address] Erythrocyte distribution wid th ratioOrdered By: Dajuan Morrison on 06-26-2024 Erythrocyte distribution width (RBC) [Ratio] 13.3 % 11.6-14.6 [facility] Erythrocyte distribution wid th standard deviationOrdered By: Dajuan Morrison on 06-26-2024 Erythrocyte distribution width (RBC) [Entitic vol] 42.1 fL 35.1-43.9 [facility] Erythrocyte distribution width (RBC) [Ratio] 42.1 fl 35.1-43.9 [facility] Estimated glomerular filtrat ion rate (GFR) AmericanOrdered By: Dajuan Morrison on 06-26-2024 Estimated GFR (MDRD) Amer 95 mL/min >60 [facility] Comment on above: GFR Calc Glomerular filtration rate ( GFR) estimationOrdered By: Dajuan Morrison on 06-26-2024 Estimated GFR (MDRD) Non-Af Amer 78 mL/min >60 [facility] Comment on above: Non- GFR Calc GFR/1.73 sq M.predicted among non-blacks MDRD (S/P/Bld) [Vol rate/Area] 78 mL/min/{1.73_m2} >60 [facility] Comment on above: Non- GFR Calc Glucose measurementOrdered B y: Dajuan Morrison on 06-26-2024 Glucose [Mass/Vol] 107 mg/dL High 74-106 [facility] Comment on above: Fasting Glucose resu lt from 100 to 125 mg/dL suggests IMPAIRED HOMEOSTASIS per A.D.A. criteria. Hematocrit Auto (Bld) [Volum e fraction]Ordered By: Dajuan Morrison on 06-26-2024 Hematocrit (Bld) [Volume fraction] 42.3 % 40-54 [facility] Hemoglobin measurementOrdere d By: Dajuan Morrison on 06-26-2024 Hemoglobin (Bld) [Mass/Vol] 14.0 g/dL 13.0-16.5 [facility] Laboratory - Chemistry and C hemistry - challengeOrdered By: Dajuan Morrison on 06-26-2024 AST [Catalytic activity/Vol] 41 U/L High 15-37 [facility] MCV (mean corpuscular volume ) determinationOrdered By: Dajuan Morrison on 06-26-2024 MCV (RBC) [Entitic vol] 86.5 fL 80-94 [facility] Mean corpuscular hemoglobin (MCH) determinationOrdered By: Dajuan Morrison on 06-26-2024 MCH (RBC) [Entitic mass] 28.6 pg 27.0-32.0 [facility] Mean corpuscular hemoglobin concentration (MCHC) determinationOrdered By: Dajuan Morrison on 06-26-2024 MCHC (RBC) [Mass/Vol] 33.1 g/dL 32-36 [facility] Mean platelet volume determi nationOrdered By: Dajuan Morrison on 06-26-2024 Platelet mean volume (Bld) [Entitic vol] 9.3 fL 6.2-12.0 [facility] OXcarbazepine [Mass/Vol]Orde red By: Dajuan Morrison on 06-26-2024 Oxcarbazepine Level 31 ug/mL 10-35 [facility] Comment on above: This test was develo ped and its performance characteristicsdetermined by [employer]. It has not been cleared orapproved by the Food and Drug Administration. Detection Limit = 1Performed at: [facility] [address] [id number] Director: Andra Sawant MD, Phone: [phone] Platelet countOrdered By: Mary Morrison on 06-26-2024 Platelets (Bld) [#/Vol] 324 10*3/uL 150-450 [facility] Potassium measurementOrdered By: Dajuan Morrison on 06-26-2024 Potassium [Moles/Vol] 3.8 mmol/L 3.5-5.1 [facility] RBC Auto (Bld) [#/Vol]Ordere d By: Dajuan Morrison on 06-26-2024 RBC (Bld) [#/Vol] 4.89 10*6/uL 4.6-6.2 [facility] Serum anion gap measurementO rdered By: Dajuan Morrison on 06-26-2024 Anion gap [Moles/Vol] 8 mmol/L 5-15 [facility] [place] Serum globulin measurementOr dered By: Dajuan Morrison on 06-26-2024 Globulin (S) [Mass/Vol] 3.2 g/dL 2.2-4.2 [facility] Serum or plasma alanine rousseau otransferase (ALT) measurementOrdered By: Dajuan Morrison on 06-26-2024 ALT [Catalytic activity/Vol] 99 U/L High 16-61 [facility] Serum or plasma albumin ashlee urement (mass/volume)Ordered By: Dajuan Morrison on 06-26-2024 Albumin [Mass/Vol] 3.7 g/dL 3.2-5.0 [facility] Serum or plasma alkaline monica sphatase measurementOrdered By: Dajuan Morrison on 06-26-2024 ALP [Catalytic activity/Vol] 63 U/L 45-117 [facility] Serum or plasma calcium ashlee urement (mass/volume)Ordered By: Dajuan Morrison on 06-26-2024 Calcium [Mass/Vol] 9.4 mg/dL 8.5-10.1 [facility] Serum or plasma creatinine m easurement (mass/volume)Ordered By: Dajuan Morrison on 06-26-2024 Creatinine [Mass/Vol] 1.08 mg/dL 0.70-1.30 [facility] Comment on above: The validity of the calculated GFR & GFRAA in patients over 70 years has not been determined. Clinical correlation is essential. Serum or plasma oxcarbazepin e measurement (mass/volume)Ordered By: Dajuan Morrison on 06-26-2024 OXcarbazepine [Mass/Vol] 31 ug/mL 10-35 [facility] Comment on above: This test was develo ped and its performance characteristicsdetermined by [facility]. It has not been cleared orapproved by the Food and Drug Administration. Detection Limit = 1Performed at: [facility] [address] [place], [place] [id number] Director: Andra Sawant MD, Phone: [phone] Serum or plasma urea nitroge n measurement (mass/volume)Ordered By: Dajuan Morrison on 06-26-2024 Urea nitrogen [Mass/Vol] 17 mg/dL 7- [facility] Sodium levelOrdered By: Cricket Morrison on 06-26-2024 Sodium [Moles/Vol] 138 mmol/L 136-145 [facility] Total proteinOrdered By: Juvenal Morrison on 06-26-2024 Protein [Mass/Vol] 6.9 g/dL 6.4-8.2 [facility] White blood cell (WBC) count Ordered By: Dajuan Morrison on 06-26-2024 WBC (Bld) [#/Vol] 9.2 10*3/uL 4.4-11.0 [facility] 36on 06-23-2024 36 Prescription Request : Last medication check: 10/24/2023 Last physical exam: 04/20/2024 Next scheduled appointment: 10/20/2024 Last date of refill on this medication: 06/04/23 [facility] 36on 05-04-2024 36 Reviewed chart. Refi ll appropriate. RX sent. [address] pharmacy requesting refill for Folic Acid [...] [facility] Follow-up visit [id number] Cb Burciaga awn 1980 M Date Provider Department Center 04/20/2024 [id number] ROSA [facility] Family History Family Status - Relation Status Age at Mother Father Alive Level of Service:11119 [place] PERIODIC PREVENTIVE MED EST PATIENT 40-64YRS Reason for Visit and Comments: Annual Exam [83] Blood Work [047898] Health Maintenance [872] - 4th covid vaccine- not done Normal [facility] Progress Noteon 04-20-2024 Progress Note Stable, continue Foster nase and Claritin. 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 He has hypertension and his blood pressure [...] lb 12.8 oz (86.5 kg) Height: 5' 5.5" (1.664 m) Physical Exam Vitals and nursing [...] Reviewed chart. Refi ll appropriate. RX sent. [place] [address] Prescription Request : Last medication check: 10/24/2023 Last physical exam: 04/18/2023 Next scheduled appointment: 04/20/2024 Last date of refill on this medication: 11/12/2023 [facility] 36on 03-20-2024 36 Notified on angela luo. [facility] 36 Will follow patient. Thank you. [facility] 36 Name of caller: Brad Contact phone number: [phone] Relationship to Patient: [facility] Provider: Dr. Rosa Practice: [facility] Chief [...] their call: Yes [facility] Home sleep teston 01-16-2024 [facility] Culture, urineOrdered By: St heri Miles on 05-29-2023 Bacteria identified Cx Nom (U) [place] odontolyticus [facility] Laboratory - Chemistry and C hemistry - challengeon 05-29-2023 Bilirubin Ql (U) Small (1+) [facility] Glucose Ql (U) Negative [facility] Ketones Ql (U) Negative [facility] pH (U) 7.5 [pH] [facility] Specific gravity (U) [Rel density] 1.010 [facility] Urobilinogen (U) [Mass/Vol] 0.1287447 mg/dL [facility] Laboratory - Hematology and Cell countson 05-29-2023 Hemoglobin Ql (U) Hemolyzed [facility] Laboratory - Specimen inform ationon 05-29-2023 Clarity (U) Slightly Hazy [facility] Color (U) Dk Yellow [facility] Laboratory - Urinalysison Nitrite Ql (U) Negative [facility] Protein Ql (U) Trace [facility] No Panel Informationon 05-29 Urine Leukocytes Positive [facility] Urine Non-Hemolyzed Blood Large [facility] XR Lumbar spine 4 Viewson Mild to moderate mul tilevel degenerative changes. Probable bilateral renal calculi measuring up to 1 cm. Further evaluation with renal ultrasound is recommended. Report Dictated on Electronically Signed By: Isidro Lara Electronically Signed Date/Time: 08/27/2022 4:16 PM EDT [facility] [employer] Patient Name: CHAN CONNELL : 1980 [...] bilateral kidneys measuring up to 1 cm. [facility] RADIOLOGY SYSTEM Isidro Lara MD - 08/27/2022 [...] Electronically Signed Date/Time: 08/27/2022 4:16 PM EDT [facility] [employer] Radiology Study observation (narrative) [employer] XR Lumbar spine 4 ViewsOrder ed By: Isidro Lara on 08-27-2022 [employer] Work Phone: [id number] percentageOrdered B y: Dr. Borden on 08-09-2022 Bilirubin [Mass/Vol] 0.40 mg/dL 0.20-1.00 [facility] Comment on above: For patients on eltr ombopag therapy, use of Dimension [place] TBIL is not recommended. Chloride [Moles/Vol] 105 mmol/L 98-107 [facility] Cholesterol [Mass/Vol] 151 mg/dL <200 [facility] Comment on above: <200 mg/dL Desirable 200-240 mg/dL Borderline >240 mg/dL High Risk Glucose [Mass/Vol] 91 mg/dL 74-106 [facility] Potassium [Moles/Vol] 3.9 mmol/L 3.5-5.1 [facility] Protein [Mass/Vol] 7.3 g/dL 6.4-8.2 [facility] Sodium [Moles/Vol] 136 mmol/L 136-145 [facility] Triglyceride [Mass/Vol] 142 mg/dL <199 [facility] Comment on above: The drugs N-Acetylcy steine and Metamizole may falsely depress this assay.Serum Triglycerides Reference Interval Normal <150 mg/dL Borderline high 150 - 199 mg/dL High 200 - 499 mg/dL Very High > or = 500 mg/dL Laboratory - Chemistry and C hemistry - challengeOrdered By: Dr. Borden on 08-09-2022 ALP [Catalytic activity/Vol] 56 U/L 45-117 [facility] ALT [Catalytic activity/Vol] 138 U/L 16-61 [facility] CO2 [Moles/Vol] 26.0 mmol/L 21.0-32.0 [facility] Globulin (S) [Mass/Vol] 3.2 g/dL 2.2-4.2 [facility] Urea nitrogen/Creatinine [Mass ratio] 11.7 mg/mg 10-20 [facility] No Panel InformationOrdered By: Dr. Borden on 08-09-2022 Estimated GFR (MDRD) Amer 93 mL/min >60 [facility] Comment on above: GFR Calc Estimated GFR (MDRD) Non-Af Amer 77 mL/min >60 [facility] Comment on above: Non- GFR Calc Serum or plasma albumin ashlee urement (mass/volume)Ordered By: Dr. Borden on 08-09-2022 Albumin [Mass/Vol] 4.1 g/dL 3.2-5.0 [facility] Serum or plasma albumin/glob ulin mass ratioOrdered By: Dr. Borden on 08-09-2022 Albumin/Globulin [Mass ratio] 1.3 {ratio} 0.9-2.4 [facility] Serum or plasma calcium ashlee urement (mass/volume)Ordered By: Dr. Borden on 08-09-2022 Calcium [Mass/Vol] 10.0 mg/dL 8.5-10.1 [facility] Serum or plasma cholesterol in HDL measurement (mass/volume)Ordered By: Dr. Borden on 08-09-2022 Cholesterol in HDL [Mass/Vol] 42 mg/dL >40 [facility] Comment on above: The drugs N-Acetylcy steine and Metamizole may falsely depress this assay. Reference Range HDL <40 mg/dL Low HDL Cholesterol HDL >or= 60 mg/dL High HDL Cholesterol Serum or plasma cholesterol in VLDL measurement (mass/volume)Ordered By: Dr. Borden on 08-09-2022 Cholesterol in VLDL [Mass/Vol] 28 mg/dL 5-40 [facility] Serum or plasma creatinine m easurement (mass/volume)Ordered By: Dr. Borden on 08-09-2022 Creatinine [Mass/Vol] 1.11 mg/dL 0.70-1.30 [facility] Comment on above: The validity of the calculated GFR & GFRAA in patients over 70 years has not been determined. Clinical correlation is essential. Serum or plasma low density lipoprotein (LDL) cholesterol measurement (mass/volume)Ordered By: Dr. Borden on 08-09-2022 Cholesterol in LDL [Mass/Vol] 81 mg/dL 0-130 [facility] Serum or plasma urea nitroge n measurement (mass/volume)Ordered By: Dr. Borden on 08-09-2022 Urea nitrogen [Mass/Vol] 13 mg/dL 7-18 [facility] Thin prep Papanicolaou smear with manual screeningOrdered By: Dr. Borden on 08-09-2022 Thin prep Papanicolaou smear with manual screening 63 U/L 15-37 [facility] Thin prep Papanicolaou smear with manual screening 5 5-15 [facility] Whole blood hemoglobin A1c/t otal hemoglobin ratio (mass fraction)Ordered By: Dr. Borden on 08-09-2022 HbA1c (Bld) [Mass fraction] 5.4 % 3.8-5.6 [facility] Comment on above: Normal < 5.7 % Predi abetic 5.7 - 6.4 % Diabetic >or= 6.5 % Please note range changes. Basophil percentageon 2021 Bilirubin [Mass/Vol] 0.30 mg/dL 0.20-1.00 [facility] Work Phone: Comment on above: For patients on eltr ombopag therapy, use of Dimension [place] TBIL is not recommended. Chloride [Moles/Vol] 108 mmol/L 98-107 [facility] Work Phone: Cholesterol [Mass/Vol] 199 mg/dL <200 [facility] Work Phone: Comment on above: <200 mg/dL Desirable 200-240 mg/dL Borderline >240 mg/dL High Risk Glucose [Mass/Vol] 113 mg/dL 74-106 [facility] Work Phone: Comment on above: Fasting Glucose resu lt from 100 to 125 mg/dL suggests IMPAIRED HOMEOSTASIS per A.D.A. criteria. Potassium [Moles/Vol] 3.7 mmol/L 3.5-5.1 [facility] Work Phone: Protein [Mass/Vol] 7.4 g/dL 6.4-8.2 [facility] Work Phone: Sodium [Moles/Vol] 140 mmol/L 136-145 [facility] Work Phone: Triglyceride [Mass/Vol] 239 mg/dL <199 [facility] Work Phone: Comment on above: The drugs N-Acetylcy steine and Metamizole may falsely depress this assay.Serum Triglycerides Reference Interval Normal <150 mg/dL Borderline high 150 - 199 mg/dL High 200 - 499 mg/dL Very High > or = 500 mg/dL WBC (Bld) [#/Vol] 9.8 10*3/uL 4.4-11.0 [facility] Work Phone: Blood erythrocytes count (nu mber/volume)on 02-23-2022 RBC (Bld) [#/Vol] 5.30 10*6/uL 4.6-6.2 [facility] Work Phone: Blood hemoglobin measurement (mass/volume)on 02-23-2022 Hemoglobin (Bld) [Mass/Vol] 15.4 g/dL 13.0-16.5 [facility] Work Phone: Blood platelet mean volumeon 02-23-2022 Platelet mean volume (Bld) [Entitic vol] 9.4 fL 6.2-12.0 [facility] Work Phone: Determination of erythrocyte mean corpuscular volume (MCV)on 02-23-2022 MCV (RBC) [Entitic vol] 86.4 fL 80-94 [facility] Work Phone: Hematocrit Auto (Bld) [Volum e fraction]on 02-23-2022 Hematocrit (Bld) [Volume fraction] 45.8 % 40-54 [facility] Work Phone: Laboratory - Chemistry and C hemistry - challengeon 02-23-2022 ALP [Catalytic activity/Vol] 72 U/L 45-117 [facility] Work Phone: ALT [Catalytic activity/Vol] 120 U/L 16-61 [facility] Work Phone: CO2 [Moles/Vol] 24.0 mmol/L 21.0-32.0 [facility] Work Phone: Globulin (S) [Mass/Vol] 3.4 g/dL 2.2-4.2 [facility] Work Phone: Urea nitrogen/Creatinine [Mass ratio] 9.9 mg/mg 10-20 [facility] Work Phone: Laboratory - Hematology and Cell countson 02-23-2022 Erythrocyte distribution width (RBC) [Entitic vol] 42.0 fL 35.1-43.9 [facility] Work Phone: Erythrocyte distribution width (RBC) [Ratio] 13.4 % 11.6-14.6 [facility] Work Phone: MCH (RBC) [Entitic mass] 29.1 pg 27.0-32.0 [facility] Work Phone: MCHC Auto (RBC) [Mass/Vol]on 02-23-2022 MCHC (RBC) [Mass/Vol] 33.6 g/dL 32-36 [facility] Work Phone: No Panel Informationon 02-23 Estimated GFR (MDRD) Amer 104 mL/min >60 [facility] Work Phone: Comment on above: GFR Calc Estimated GFR (MDRD) Non-Af Amer 86 mL/min >60 [facility] Work Phone: Comment on above: Non- GFR Calc Platelets bldon 02-23-2022 Platelets (Bld) [#/Vol] 382 10*3/uL 150-450 [facility] Work Phone: Serum or plasma albumin ashlee urement (mass/volume)on 02-23-2022 Albumin [Mass/Vol] 4.0 g/dL 3.2-5.0 [facility] Work Phone: Serum or plasma albumin/glob ulin mass ratioon 02-23-2022 Albumin/Globulin [Mass ratio] 1.2 {ratio} 0.9-2.4 [facility] Work Phone: Serum or plasma calcium ashlee urement (mass/volume)on 02-23-2022 Calcium [Mass/Vol] 9.5 mg/dL 8.5-10.1 [facility] Work Phone: Serum or plasma cholesterol in HDL measurement (mass/volume)on 02-23-2022 Cholesterol in HDL [Mass/Vol] 35 mg/dL >40 [facility] Work Phone: Comment on above: The drugs N-Acetylcy steine and Metamizole may falsely depress this assay. Reference Range HDL <40 mg/dL Low HDL Cholesterol HDL >or= 60 mg/dL High HDL Cholesterol Serum or plasma cholesterol in VLDL measurement (mass/volume)on 02-23-2022 Cholesterol in VLDL [Mass/Vol] 48 mg/dL 5-40 [facility] Work Phone: Serum or plasma creatinine m easurement (mass/volume)on 02-23-2022 Creatinine [Mass/Vol] 1.01 mg/dL 0.70-1.30 [facility] Work Phone: Comment on above: The validity of the calculated GFR & GFRAA in patients over 70 years has not been determined. Clinical correlation is essential. Serum or plasma low density lipoprotein (LDL) cholesterol measurement (mass/volume)on 02-23-2022 Cholesterol in LDL [Mass/Vol] 116 mg/dL 0-130 [facility] Work Phone: Serum or plasma oxcarbazepin e measurement (mass/volume)on 02-23-2022 OXcarbazepine [Mass/Vol] 22 ug/mL 10-35 [facility] Work Phone: Comment on above: This test was develo ped and its performance characteristicsdetermined by [facility]. It has not been cleared orapproved by the Food and Drug Administration. Detection Limit = 1Performed at: [address] [place], [place] [id number] Director: Andra Sawant MD, Phone: [phone] Serum or plasma urea nitroge n measurement (mass/volume)on 02-23-2022 Urea nitrogen [Mass/Vol] 10 mg/dL 7-18 [facility] Work Phone: Thin prep Papanicolaou smear with manual screeningon 02-23-2022 Thin prep Papanicolaou smear with manual screening 53 U/L 15- [facility] Work Phone: Thin prep Papanicolaou smear with manual screening 8 5-15 [facility] Work Phone: Whole blood hemoglobin A1c/t otal hemoglobin ratio (mass fraction)on 02-23-2022 HbA1c (Bld) [Mass fraction] 5.8 % 3.8-5.6 [facility] Work Phone: Comment on above: Normal < 5.7 % Predi abetic 5.7 - 6.4 % Diabetic >or= 6.5 % Please note range changes. No Panel Informationon 02-19 POC SARS CoV-2 Antigen Negative [facility] Work Phone: No Panel Informationon 02-09 POC SARS CoV-2 Antigen Positive [facility] Work Phone: Vital Signs Date Time Vital Sign Value Performing Clinician Facility 02-03-2025 07:24-0400 Body height 165.1 cm Ramiro Rosa MD Work Phone: [facility] 02-03-2025 07:24-0400 Body mass index (BMI) [Ratio] 31.42 kg/m2 Ramiro Rosa MD Work Phone: [facility] 02-03-2025 07:24-0400 Body weight 85.64 kg Ramiro Rosa MD Work Phone: [facility] 02-03-2025 07:24-0400 Diastolic blood pressure 73 mm[Hg] Ramiro Rosa MD Work Phone: [facility] 02-03-2025 07:24-0400 Heart rate 82 /min Ramiro Rosa MD Work Phone: [facility] 02-03-2025 07:24-0400 SaO2% (BldA) [Mass fraction] 94 % Ramiro Rosa MD Work Phone: [facility] 02-03-2025 07:24-0400 Systolic blood pressure 116 mm[Hg] Ramiro Rosa MD Work Phone: [facility] 01-25-2025 15:22-0400 Body height 165.[address] Ramiro Rosa MD Work Phone: [facility] 01-25-2025 15:22-0400 Body mass index (BMI) [Ratio] 31.4 kg/m2 Dr. Ramiro Rosa MD Work Phone: [facility] 01-25-2025 15:22-0400 Body temperature 97.9 [degF] Dr. Ramiro Rosa MD Work Phone: [facility] 01-25-2025 15:22-0400 Body weight 85.[address] Ramiro Rosa MD Work Phone: [facility] 01-25-2025 15:22-0400 Diastolic blood pressure 106 mm[Hg] Dr. Ramiro Rosa MD Work Phone: [facility] 01-25-2025 15:22-0400 Heart rate 110 /min Dr. Ramiro Rosa MD Work Phone: [facility] 01-25-2025 15:22-0400 Respiratory rate 18 /min Dr. Ramiro Rosa MD Work Phone: [facility] 01-25-2025 15:22-0400 SaO2% (BldA) [Mass fraction] 98 % Dr. Ramiro Rosa MD Work Phone: [facility] 01-25-2025 15:22-0400 Systolic blood pressure 144 mm[Hg] Dr. Ramiro Rosa MD Work Phone: [facility] 12-15-2024 09:54-0400 Body height 165.1 cm Ramiro Rosa MD Work Phone: [facility] 12-15-2024 09:54-0400 Body mass index (BMI) [Ratio] 31.12 kg/m2 Ramiro Rosa MD Work Phone: [facility] 12-15-2024 09:54-0400 Body weight 84.82 kg Ramiro Rosa MD Work Phone: [facility] 12-15-2024 09:54-0400 Diastolic blood pressure 66 mm[Hg] Ramiro Rosa MD Work Phone: [facility] 12-15-2024 09:54-0400 Heart rate 85 /min Ramiro Rosa MD Work Phone: [facility] 12-15-2024 09:54-0400 SaO2% (BldA) [Mass fraction] 95 % Ramiro Rosa MD Work Phone: [facility] 12-15-2024 09:54-0400 Systolic blood pressure 99 mm[Hg] Ramiro Rosa MD Work Phone: [facility] 12-05-2024 12:29-0400 Body temperature 98.2 [degF] Dr. Ramiro Rosa MD Work Phone: [facility] 12-05-2024 12:29-0400 Diastolic blood pressure 71 mm[Hg] Dr. Ramiro Rosa MD Work Phone: [facility] 12-05-2024 12:29-0400 Heart rate 93 /min Dr. Ramiro Rosa MD Work Phone: [facility] 12-05-2024 12:29-0400 Respiratory rate 16 /min Dr. Ramiro Rosa MD Work Phone: [facility] 12-05-2024 12:29-0400 SaO2% (BldA) [Mass fraction] 95 % Dr. Ramiro Rosa MD Work Phone: [facility] 12-05-2024 12:29-0400 Systolic blood pressure 129 mm[Hg] Dr. Ramiro Rosa MD Work Phone: [phone](045)320-459463 [place] [address] 12-04-2024 14:44-0400 Body height 165.[address] Ramiro Rosa MD Work Phone: 5(586)286-490763 [place] [address] 12-04-2024 14:44-0400 Body weight 82.[address] Ramiro Rosa MD Work Phone: 1(580)[phone] [place] [address] 12-04-2024 13:21-0400 Body mass index (BMI) [Ratio] 30.4 kg/m2 Dr. Ramiro Rosa MD Work Phone: 0(722)232-269263 [place] [address] 11-13-2024 10:47-0400 Body temperature 97.6 [degF] Dr. Ramiro Rosa MD Work Phone: 7(668)[phone] [place] [address] 11-13-2024 10:47-0400 Diastolic blood pressure 79 mm[Hg] Dr. Ramiro Rosa MD Work Phone: 1(752)516-447343 [place] [address] 11-13-2024 10:47-0400 Heart rate 64 /min Dr. Ramiro Rosa MD Work Phone: 3(631)[phone] [place] [address] 11-13-2024 10:47-0400 Respiratory rate 18 /min Dr. Ramiro Rosa MD Work Phone: 4(181)[phone] [place] [address] 11-13-2024 10:47-0400 SaO2% (BldA) [Mass fraction] 98 % Dr. Ramiro Rosa MD Work Phone: 0(132)[phone] [place] [address] 11-13-2024 10:47-0400 Systolic blood pressure 121 mm[Hg] Dr. Ramiro Rosa MD Work Phone: 1(724)[phone] [place] [address] 11-13-2024 07:33-0400 Body height 165.[address] Ramiro Rosa MD Work Phone: [facility] 11-13-2024 07:33-0400 Body mass index (BMI) [Ratio] 32.8 kg/m2 Dr. Ramiro Rosa MD Work Phone: [facility] 11-13-2024 07:33-0400 Body weight 89.[address] Ramiro Rosa MD Work Phone: [facility] 10-30-2024 15:09-0400 Body temperature 99.9 [degF] Dr. Ramiro Rosa MD Work Phone: [facility] 10-30-2024 15:09-0400 Diastolic blood pressure 74 mm[Hg] Dr. Ramiro Rosa MD Work Phone: [facility] 10-30-2024 15:09-0400 Heart rate 96 /min Dr. Ramiro Rosa MD Work Phone: 2(647)[phone] [place] [address] 10-30-2024 15:09-0400 Respiratory rate 16 /min Dr. Ramiro Rosa MD Work Phone: [facility] 10-30-2024 15:09-0400 SaO2% (BldA) [Mass fraction] 93 % Dr. Ramiro Rosa MD Work Phone: [facility] 10-30-2024 15:09-0400 Systolic blood pressure 125 mm[Hg] Dr. Ramiro Rosa MD Work Phone: [facility] 10-30-2024 14:30-0400 Inhaled oxygen flow rate 2 L/min Dr. Ramiro Rosa MD Work Phone: [facility] 10-30-2024 11:29-0400 Body height 165.[address] Ramiro Rosa MD Work Phone: [facility] 10-30-2024 11:29-0400 Body mass index (BMI) [Ratio] 30.8 kg/m2 Dr. Ramiro Rosa MD Work Phone: [facility] 10-30-2024 11:29-0400 Body weight [address] Ramiro Rosa MD Work Phone: [facility] 10-23-2024 10:16-0400 Body temperature 96.8 [degF] Dr. Ramiro Rosa MD Work Phone: [facility] 10-23-2024 10:16-0400 Diastolic blood pressure 80 mm[Hg] Dr. Ramiro Rosa MD Work Phone: [facility] 10-23-2024 10:16-0400 Heart rate 65 /min Dr. Ramiro Rosa MD Work Phone: [facility] 10-23-2024 10:16-0400 Respiratory rate 18 /min Dr. Ramiro Rosa MD Work Phone: 4(730)[phone] [place] [address] 10-23-2024 10:16-0400 SaO2% (BldA) [Mass fraction] 95 % Dr. Ramiro Rosa MD Work Phone: [facility] 10-23-2024 10:16-0400 Systolic blood pressure 121 mm[Hg] Dr. Ramiro Rosa MD Work Phone: [facility] 10-23-2024 06:29-0400 Body height 165.[address] Ramiro Rosa MD Work Phone: [facility] 10-23-2024 06:29-0400 Body mass index (BMI) [Ratio] 31.4 kg/m2 Dr. Ramiro Rosa MD Work Phone: [facility] 10-23-2024 06:29-0400 Body weight 85.[address] Ramiro Rosa MD Work Phone: [facility] 10-15-2024 11:44-0400 Body height 165.1 cm Ramiro Rosa MD Work Phone: [facility] 10-15-2024 11:44-0400 Body mass index (BMI) [Ratio] 31.62 kg/m2 Ramiro Rosa MD Work Phone: [facility] 10-15-2024 11:44-0400 Body weight 86.18 kg Ramiro Rosa MD Work Phone: [facility] 10-15-2024 11:44-0400 Diastolic blood pressure 81 mm[Hg] Ramiro Rosa MD Work Phone: [facility] 10-15-2024 11:44-0400 Heart rate 95 /min Ramiro Rosa MD Work Phone: [facility] 10-15-2024 11:44-0400 SaO2% (BldA) [Mass fraction] 95 % Ramiro Rosa MD Work Phone: [facility] 10-15-2024 11:44-0400 Systolic blood pressure 120 mm[Hg] Ramiro Rosa MD Work Phone: [facility] 10-09-2024 13:56-0400 SaO2% (BldA) [Mass fraction] 95 % Dr. Ramiro Rosa MD Work Phone: [facility] 10-09-2024 13:32-0400 Body temperature 98.1 [degF] Dr. Ramiro Rosa MD Work Phone: [facility] 10-09-2024 13:32-0400 Diastolic blood pressure 87 mm[Hg] Dr. Ramiro Rosa MD Work Phone: [facility] 10-09-2024 13:32-0400 Heart rate 80 /min Dr. Ramiro Rosa MD Work Phone: [facility] 10-09-2024 13:32-0400 Respiratory rate 16 /min Dr. Ramiro Rosa MD Work Phone: [facility] 10-09-2024 13:32-0400 Systolic blood pressure 144 mm[Hg] Dr. Ramiro Rosa MD Work Phone: [facility] 10-09-2024 13:10-0400 Inhaled oxygen flow rate 2 L/min Dr. Ramiro Rosa MD Work Phone: [facility] 10-09-2024 10:19-0400 Body height [address] Ramiro Rosa MD Work Phone: [facility] 10-09-2024 10:19-0400 Body mass index (BMI) [Ratio] 31.6 kg/m2 Dr. Ramiro Rosa MD Work Phone: 3(612)982-719243 [place] [address] 10-09-2024 10:19-0400 Body weight [address] Ramiro Rosa MD Work Phone: 4(024)128-011743 [place] [address] 10-08-2024 19:56-0400 Body temperature 98 [degF] Dr. Ramiro Rosa MD Work Phone: 4(828)885-590363 [place] [address] 10-08-2024 19:56-0400 Diastolic blood pressure 90 mm[Hg] Dr. Ramiro Rosa MD Work Phone: 2(116)697-230343 [place] [address] 10-08-2024 19:56-0400 Heart rate 96 /min Dr. Ramiro Rosa MD Work Phone: 7(280)954-458743 [place] [address] 10-08-2024 19:56-0400 Respiratory rate 18 /min Dr. Ramiro Rosa MD Work Phone: [facility] 10-08-2024 19:56-0400 SaO2% (BldA) [Mass fraction] 97 % Dr. Ramiro Rosa MD Work Phone: 3(839)029-906743 [place] [address] 10-08-2024 19:56-0400 Systolic blood pressure 149 mm[Hg] Dr. Ramiro Rosa MD Work Phone: 9(109)771-190043 [place] [address] 10-08-2024 16:53-0400 Body height 167.[address] Ramiro Rosa MD Work Phone: 9(993)132-770643 [place] [address] 10-08-2024 16:53-0400 Body mass index (BMI) [Ratio] 30.5 kg/m2 Dr. Ramiro Rosa MD Work Phone: 1(877)753-819243 [place] [address] 10-08-2024 16:53-0400 Body weight 85.[address] Ramiro Rosa MD Work Phone: [facility] 10-08-2024 16:16-0400 Body temperature 97 [degF] Zach Cardenas MD Work Phone: [facility] 10-08-2024 16:16-0400 Body weight 85 kg Zach Cardenas MD Work Phone: [facility] 10-08-2024 16:16-0400 Diastolic blood pressure 88 mm[Hg] Zach Cardenas MD Work Phone: [facility] 10-08-2024 16:16-0400 Heart rate 97 /min Zach Cardenas MD Work Phone: [facility] 10-08-2024 16:16-0400 Respiratory rate 20 /min Zach Cardenas MD Work Phone: [facility] 10-08-2024 16:16-0400 SaO2% (BldA) [Mass fraction] 95 % Zach Cardenas MD Work Phone: [facility] 10-08-2024 16:16-0400 Systolic blood pressure 134 mm[Hg] Zach Cardenas MD Work Phone: [facility] 09-27-2024 09:54-0400 Body temperature 97.11 [degF] Sean Verduzco RESIDENTIAL CONCIERGE.ANIMAL HANDLER Work Phone: [facility] 09-27-2024 09:54-0400 Body weight 86.2 kg Sean Verduzco RESIDENTIAL CONCIERGE.ANIMAL HANDLER Work Phone: [facility] 09-27-2024 09:54-0400 Diastolic blood pressure 66 mm[Hg] Sean Verduzco RESIDENTIAL CONCIERGE.ANIMAL HANDLER Work Phone: [facility] 09-27-2024 09:54-0400 Heart rate 96 /min Sean Verduzco APRN.ANIMAL HANDLER Work Phone: [facility] 09-27-2024 09:54-0400 SaO2% (BldA) [Mass fraction] 96 % Sean Verduzco RESIDENTIAL CONCIERGE.ANIMAL HANDLER Work Phone: [facility] 09-27-2024 09:54-0400 Systolic blood pressure 110 mm[Hg] Sean Verduzco APRN.ANIMAL HANDLER Work Phone: [facility] 04-20-2024 11:04-0500 Body height 166.4 cm Ramiro Rosa MD Work Phone: [facility] 04-20-2024 11:04-0500 Body mass index (BMI) [Ratio] 31.27 kg/m2 Ramiro Rosa MD Work Phone: [facility] 04-20-2024 11:04-0500 Body weight 86.55 kg Ramiro Rosa MD Work Phone: [facility] 04-20-2024 11:04-0500 Diastolic blood pressure 74 mm[Hg] Ramiro Rosa MD Work Phone: [facility] 04-20-2024 11:04-0500 Heart rate 73 /min Ramiro Rosa MD Work Phone: [facility] 04-20-2024 11:04-0500 SaO2% (BldA) [Mass fraction] 94 % Ramiro Rosa MD Work Phone: [facility] 04-20-2024 11:04-0500 Systolic blood pressure 117 mm[Hg] Ramiro Rosa MD Work Phone: [facility] 10-24-2023 09:29-0400 Body height 166.4 cm Ramiro Rosa MD Work Phone: [facility] [employer] 10-24-2023 09:29-0400 Body mass index (BMI) [Ratio] 30.09 kg/m2 Ramiro Rosa MD Work Phone: [facility] [employer] 10-24-2023 09:29-0400 Body weight 83.28 kg Ramiro Rosa MD Work Phone: [facility] [employer] 10-24-2023 09:29-0400 Diastolic blood pressure 76 mm[Hg] Ramiro Rosa MD Work Phone: [facility] [employer] 10-24-2023 09:29-0400 Heart rate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 Sign Date: 01/25/2025 7:13:31 PM Ordering Provider: [facility]09-22-2025 Note* Exam Date Time Procedure Performing Provider Status 01/25/25 7:[address] Spine Lumbar w/o Contrast JALEN RICH MD; Auth (Verified) [id number] ORIGINAL EXAMINATION: CT OF THE LUMBAR SPINE WITHOUT CONTRAST 01/25/2025 TECHNIQUE: CT of the lumbar spine was performed without the administration of intravenous contrast. Multiplanar reformatted images are provided for review. Adjustment of mA and/or kV according to patient size was utilized. Automated exposure control, iterative reconstruction, and/or weight based adjustment of the mA/kV was utilized to reduce the radiation dose to as low as reasonably achievable. COMPARISON: None HISTORY: ORDERING SYSTEM PROVIDED HISTORY: Reason for Exam: Low back pain, trauma FINDINGS: BONES/ALIGNMENT: There is no traumatic malalignment of the spine. The vertebral body heights are maintained. DEGENERATIVE CHANGES: Multilevel degenerative changes. No high-grade spinal canal or neural foraminal stenosis. Disc osteophyte complexes at L3-L4, L4-L5 and L5-S1. SOFT TISSUES/RETROPERITONEUM: Nonobstructing nephrolithiasis bilaterally. Mild right pelvicaliectasis and partially imaged hydroureter; if concern for nonvisualized distal ureteral obstructing stone or other obstructing process, findings could be related. IMPRESSION: No acute fracture of the lumbar spine. Nonobstructing nephrolithiasis bilaterally. Mild right pelvicaliectasis and partially imaged hydroureter; if concern for nonvisualized distal ureteral obstructing stone or other obstructing process, findings could be related. Interpreted by: Jalen Rich Preliminary Report By: Jalen Rich Electronically signed By Jalen Rich Dictated Date: 01/25/2025 7:07:27 PM Prelim Date: 01/25/2025 7:10:37 PM Sign Date: 01/25/2025 7:10:37 PM Ordering Provider: [facility]09-02-2025 Telephone encounter Note* Telephone Encounter - YANNICK Jones CNP - 01/05/2025 11:56 AM EDT Reviewed chart. Refill appropriate. [facility]. [id number] Miscellaneous Notes* Telephone Encounter - YANNICK Jones CNP - 01/05/2025 11:56 AM EDT Reviewed chart. Refill appropriate. RX sent. * Telephone Encounter - Lexus Landrum MA - 01/05/2025 10:34 AM EDT Prescription Request: Last medication check: 10/15/24 Last physical exam: 04/20/24 Next scheduled appointment: 04/22/25 Last date of refill on this medication 11/04/24 93 capsules 1 refill [id number] Telephone encounter Note* Telephone Encounter - Lexus Landrum MA - 01/05/2025 10:34 AM EDT Prescription Request: Last medication check: 10/15/24 Last physical exam: 04/20/24 Next scheduled appointment: 04/22/25 Last date of refill on this medication 11/04/24 93 capsules 1 [facility]ill [id number] Telephone encounter Note* Telephone Encounter - YANNICK Jones CNP - 12/22/2024 3:13 PM EDT Reviewed chart. Refill appropriate. RX sent. [facility] [id number] Miscellaneous Notes* Telephone Encounter - YANNICK Jones CNP - 12/22/2024 3:13 PM EDT Reviewed chart. Refill appropriate. RX sent. * Telephone Encounter - Lexus Landrum MA - 12/22/2024 2:18 PM EDT Prescription Request: Last medication check: 10/15/24 Last physical exam: 04/20/24 Next scheduled appointment: 04/22/25 Last date of refill on this medication 12/19/23 31 tablets 11 refills documented in this [place] [id number] Telephone encounter Note* Telephone Encounter - Lexus Landrum MA - 12/22/2024 2:18 PM EDT Prescription Request: Last medication check: 10/15/24 Last physical exam: 04/20/24 Next scheduled appointment: 04/22/25 Last date of refill on this medication 12/19/23 31 tablets 11 [id number] Evaluation + Plan note* Assessment & Plan Note - Ramiro Rosa MD - 12/15/2024 10:22 AM EDTAssociated Problem(s): Benign prostatic hyperplasia with urinary retention Currently resolved after having surgery for a TURP [id number] Miscellaneous Notes* Assessment & Plan Note - Ramiro Rosa MD - 12/15/2024 10:22 AM EDTAssociated Problem(s): Benign prostatic hyperplasia with urinary retention Currently resolved after having surgery for a TURP documented in this [address]12-2025 History of Present illness Narrative* Lexus Landrum MA - 12/15/2024 10:00 AM EDT Patient verified by last name and date of . * Ramiro Rosa MD - 12/15/2024 10:00 AM EDT Images from the original note were not included. 12/15/2024 Chan Burciaga (: 1980) is a 44 y.o. male , Established patient, here for evaluation of thefollowing chief complaint(s): Transitional Care Management Outreach and Hospital Follow-up ([facility] 12/04-12/05/24/) ASSESSMENT/PLAN: 1. Benign prostatic hyperplasia with urinary retention Assessment & Plan: Currently resolved after having surgery for a TURP Follow up if symptoms worsen or fail to improve. SUBJECTIVE/OBJECTIVE: MIGUEL ÁNGEL Monaco comes in today for follow-up on a hospitalization for a TURP for his enlarged prostate he was having some urinary retention. Says he is doing well other than when he coughs or sneezes he has a tendency to leak urine. He is wearing depends and we discussed that that should get better with time. He is due to see his urologist in follow-up. We are unable to do at [facility] because there is no documentation of contact within 48 hours. Review of Systems Constitutional: Negative for chills and fever. Respiratory: Negative for shortness of breath. Cardiovascular: Negative for chest pain and palpitations. Gastrointestinal: Negative for abdominal pain, blood in stool, constipation and diarrhea. Genitourinary: Negative for dysuria, frequency, hematuria and urgency. Vitals: 12/15/24 0954 BP: 99/66 Pulse: 85 SpO2: 95% Weight: 187 lb (84.8 kg) Height: 5' 5" (1.651 m) Physical Exam Vitals and nursing note reviewed. Constitutional: General: He is not in acute distress. Appearance: Normal appearance. HENT: Head: Normocephalic. Mouth/Throat: Mouth: Mucous membranes are moist. Pharynx: Oropharynx is clear. Eyes: Extraocular Movements: Extraocular movements intact. Pupils: Pupils are equal, round, and reactive to light. Cardiovascular: Rate and Rhythm: Normal rate and regular rhythm. Heart sounds: Normal heart sounds. Pulmonary: Effort: Pulmonary effort is normal. Breath sounds: Normal breath sounds. Musculoskeletal: Cervical back: Neck supple. Neurological: Mental Status: He is alert. An electronic signature was used to authenticate this note. Ramiro Rosa MD 12/15/2024 10:22 AM documented in this [facility]08-02-2025 Discharge summary [facility] Medical Records Department [address] [place] [address] Discharge Summary 12/05/24 0938 MR#: [id number] Acct: [id number] Name: CHAN BURCIAGA Rep #:[id number] : 1980 44 From: Salvador Rush MD PCP: Dr. Ramiro Rosa MD Status:ADM REAGAN [place] [facility] [place] [facility]-4 Providers Date of Admission: 12/04/24 Date of Discharge: 12/05/24 Primary Care Physician: Dr. Ramiro Rosa MD Reason For Visit: Cysto,Transurethral Resection Prostate Medications at Discharge Home Medications fenofibrate nanocrystallized [...] 500 mg PO BID PRN pain 05/29/23 neomycin-bacitracn Zn-polymyx 3.5 mg-400 unit-5,000 unit/gram top oint (Neosporin (ler-xwf-ldonj)) 1 applic topical TID PRN dry skin 11/05/23 oxcarbazepine 600 mg tablet 600 mg PO BID 11/05/23 clonazepam 0.5 mg tablet 0.25 mg PO TID 10/15/24 quetiapine 200 mg tablet 200 mg PO 1600 bipolar 10/15/24 quetiapine 100 mg tablet 100 mg PO DAILY 12/04/24 quetiapine 200 mg tablet,extended release 24 hr 200 mg PO QHS 12/04/24 Hospital Course Operations TURP Weight / BMI Weight Weight: 82.8 kg Body Mass Index (BMI) 30.4 ABG / Lab / Microbiology Data Laboratory: Laboratory Results - last 24 hr 12/04/24 20:27: POC Glucose 143 H D/C Instructions Call your doctor if you observe: Fever of 101 or Higher DC O2, CPAP, BIPAP Needs Home O2 Discharge instructions: No Please Follow Up With: Salvador Rush MD When: Call [phone] for an appointment Meaningful Use Info Meaningful Use Meaningful Use Diagnoses (Choose all that apply): None applicable Discharge Plan Admission Admit Date/Time: 12/04/24 12:07 Primary Reason for Your Visit: Transurethral section of prostate Attending Provider: Salvador Rush Primary Care Provider: Ramiro Rosa Discharge Orders/Prescriptions Prescriptions: Continued ammonium lactate 12 % cream 1 applic [...] mg tablet 600 mg PO BID Neosporin (nuh-nmd-rydaf) 3.5mg-400 unit- 5,000 unit/gram ointment 1 applic [...] 0.5 mg tablet 0.25 mg PO TID Discontinued tamsulosin [Flomax] 0.4 mg capsule 0.4 mg PO QHS Qty: 30 1RF finasteride [Proscar] 5 mg tablet 5 mg PO DAILY Qty: 30 1RF No Action quetiapine 100 mg tablet 100 mg PO DAILY quetiapine 200 mg tablet extended release 24 hr 200 mg PO QHS Referrals / Follow Up: Ramiro Rosa MD [Primary Care Provider] - Salvador Rush MD [Med Staff - Active Staff] - Disposition Discharge Orders: Discharge Patient (Routine); Ordered 12/05/24 Ordered By: Dr. Salvador Rush 12/05/24 09 Cosigner Signature (if applicable): CC: Dr. Ramiro Rosa MD; Dr. Salvador Rush MD~ Signed [facility]08-02-2025 Discharge summary Author Salvador Rush [facility] Note Date/Time December 05, 2024 12: 45pm [facility] Medical Records Department [address] [place] [address] Discharge Summary 12/05/24 0938 MR#: [id number] Acct: [id number] Name: CHAN BURCIAGA Rep #:[id number] : 1980 44 From: Salvador Rush MD PCP: Dr. Ramiro Rosa MD Status:ADM REAGAN Location: [place] [address] Providers Date of Admission: 12/04/24 Date of Discharge: 12/05/24 Primary Care Physician: Dr. Ramiro Rosa MD Reason For Visit: Cysto,Transurethral Resection Prostate Medications at Discharge Home Medications fenofibrate nanocrystallized [...] 500 mg PO BID PRN pain 05/29/23 neomycin-bacitracn Zn-polymyx 3.5 mg-400 unit-5,000 unit/gram top oint (Neosporin (xpw-wfa-zplxx)) 1 applic topical TID PRN dry skin 11/05/23 oxcarbazepine 600 mg tablet 600 mg PO BID 11/05/23 clonazepam 0.5 mg tablet 0.25 mg PO TID 10/15/24 quetiapine 200 mg tablet 200 mg PO 1600 bipolar 10/15/24 quetiapine 100 mg tablet 100 mg PO DAILY 12/04/24 quetiapine 200 mg tablet,extended release 24 hr 200 mg PO QHS 12/04/24 Hospital Course Operations TURP Weight / BMI Weight Weight: 82.8 kg Body Mass Index (BMI) 30.4 ABG / Lab / Microbiology Data Laboratory: Laboratory Results - last 24 hr 12/04/24 20:27: POC Glucose 143 H D/C Instructions Call your doctor if you observe: Fever of 101 or Higher DC O2, CPAP, BIPAP Needs Home O2 Discharge instructions: No Please Follow Up With: Salvador Rush MD When: Call [phone] for an appointment Meaningful Use Info Meaningful Use Meaningful Use Diagnoses (Choose all that apply): None applicable Discharge Plan Admission Admit Date/Time: 12/04/24 12:07 Primary Reason for Your Visit: Transurethral section of prostate Attending Provider: Salvador Rush Primary Care Provider: Ramiro Rosa Discharge Orders/Prescriptions Prescriptions: Continued ammonium lactate 12 % cream 1 applic [...] mg tablet 600 mg PO BID Neosporin (rge-xhv-zcfse) 3.5mg-400 unit- 5,000 unit/gram ointment 1 applic [...] 0.5 mg tablet 0.25 mg PO TID Discontinued tamsulosin [Flomax] 0.4 mg capsule 0.4 mg PO QHS Qty: 30 1RF finasteride [Proscar] 5 mg tablet 5 mg PO DAILY Qty: 30 1RF No Action quetiapine 100 mg tablet 100 mg PO DAILY quetiapine 200 mg tablet extended release 24 hr 200 mg PO QHS Referrals / Follow Up: Ramiro Rosa MD [Primary Care Provider] - Salvador Rush MD [Med Staff - Active Staff] - Disposition Discharge Orders: Discharge Patient (Routine); Ordered 12/05/24 Ordered By: Dr. Salvador Rush 12/05/24 0938 <Electronically signed by Salvador Rush MD> Cosigner Signature (if applicable): CC: Dr. Ramiro Rosa MD; Dr. Salvador Rush MD~ Signed [facility] Work Phone: 1(628) 451-545608-02-2025 [facility] Medical Records Department [address] [place] [address] Discharge Summary 12/05/2438 MR#: [id number] Acct: [id number] Name: CAHN BURCIAGA Rep #: [id number] : 1980 44 From: Salvador Rush MD PCP: Dr. Ramiro Rosa MD Status:ADM REAGAN Location[place] [facility] [place] Providers Date of Admission: 12/04/24 Date of Discharge: 12/05/24 Primary Care Physician: Dr. Ramiro Rosa MD Reason For Visit: Cysto,Transurethral Resection Prostate Medications at Discharge Home Medications fenofibrate nanocrystallized [...] 500 mg PO BID PRN pain 05/29/23 neomycin-bacitracn Zn-polymyx 3.5 mg-400 unit-5,000 unit/gram top oint (Neosporin (xzc-wee-hpjkx)) 1 applic topical TID PRN dry skin 11/05/23 oxcarbazepine 600 mg tablet 600 mg PO BID 11/05/23 clonazepam 0.5 mg tablet 0.25 mg PO TID 10/15/24 quetiapine 200 mg tablet 200 mg PO 1600 bipolar 10/15/24 quetiapine 100 mg tablet 100 mg PO DAILY 12/04/24 quetiapine 200 mg tablet,extended release 24 hr 200 mg PO QHS 12/04/24 Hospital Course Operations TURP Weight / BMI Weight Weight: 82.8 kg Body Mass Index (BMI) 30.4 ABG / Lab / Microbiology Data Laboratory: Laboratory Results - last 24 hr 12/04/24 20:27: POC Glucose 143 H D/C Instructions Call your doctor if you observe: Fever of 101 or Higher DC O2, CPAP, BIPAP Needs Home O2 Discharge instructions: No Please Follow Up With: Salvador Rush MD When: Call [phone] for an appointment Meaningful Use Info Meaningful Use Meaningful Use Diagnoses (Choose all that apply): None applicable Discharge Plan Admission Admit Date/Time: 12/04/24 12:07 Primary Reason for Your Visit: Transurethral section of prostate Attending Provider: Salvador Rush Primary Care Provider: Ramiro Rosa Discharge Orders/Prescriptions Prescriptions: Continued ammonium lactate 12 % cream 1 applic [...] mg tablet 600 mg PO BID Neosporin (mpz-ero-tqyuo) 3.5mg-400 unit- 5,000 unit/gram ointment 1 applic [...] 0.5 mg tablet 0.25 mg PO TID Discontinued tamsulosin [Flomax] 0.4 mg capsule 0.4 mg PO QHS Qty: 30 1RF finasteride [Proscar] 5 mg tablet 5 mg PO DAILY Qty: 30 1RF No Action quetiapine 100 mg tablet 100 mg PO DAILY quetiapine 200 mg tablet extended release 24 hr 200 mg PO QHS Referrals / Follow Up: Ramiro Rosa MD [Primary Care Provider] - Salvador Rush MD [Med Staff - Active Staff] - Disposition Discharge Orders: Discharge Patient (Routine); Ordered 12/05/24 Ordered By: Dr. Salvador Rush 12/05/24 0938 Cosigner Signature (if applicable): CC: Dr. Ramiro Rosa MD; Dr. Salvador Rush MD [facility]08-01-2025 Consult note Author Carmen Macias [facility] Note Date/Time December 04, 2024 12: 14pm [facility] Medical Records Department [address] [place] [address] Anesthesia Postop Eval I 12/04/24 1213 MR#: [id number] Acct: [id number] Name: MARTIR BURCIAGAN Rep #:[id number] : 1980 44 From: Carmen Macias CRNA PCP: Dr. Ramiro Rosa MD Status:REG SDC Y Race: C Location: [place] [address] Anesthesia: Postop Eval I Current Vital Signs Temperature: 97.2 F Pulse Rate: 83 Blood Pressure: 113/65 Respiratory Rate: 20 Pulse Ox: 94 Oxygen Delivery Method: Room Air Assessment Airway patent: Yes Spontaneous unlabored respirations: Yes Mental status: Asleep nausea: No Vomiting: No Anesthesia Complication: No Fluid Hydration Crystalloid volume administer (ml): 300 Total IV fluid infused: 300 Progress Note Anesthesia document: Postop Eval 1 completed: Yes 12/04/24 1214 <Electronically signed by Carmen Chaneldesiraeelana RESIDENT IN DIAGNOSTIC RADIOLOGY> Date _ Carmen Macias RESIDENT IN DIAGNOSTIC RADIOLOGY Cosigner Signature: Date CC: ~ Signed [facility] Work Phone: 1(718) 583-840208-01-2025 Discharge summary Author Salvador Rush [facility] Note Date/Time December 04, 2024 12: 10pm [facility] Medical Records Department [address] [place] [address] Instructions for Home/Discharge Instructions 12/04/24 1210 MR#: [id number] Acct: [id number] Name: CHAN BURCIAGA Rep #:[id number] : 1980 44 From: Salvador Rush MD PCP: Dr. Ramiro Rosa MD Status:REG SDC Discharge Instructions DC O2, CPAP, BIPAP needs Home O2 Discharge instructions: No Dressing / Incision Discharge Activity: Return to Normal Activity and May Not Drive (while taking narcotic pain medications.) Dressing / Incision Call your doctor if you observe: Fever of 101 or Higher Follow Up Care Please Follow Up With: Salvador Rush MD When: Call [phone] for an appointment Test Results: Test results from this visit will be discussed in further detail at your follow- up appointment, if applicable. Discharge Plan Admission Primary Reason for Your Visit: Transurethral section of prostate Attending Provider: Salvador Rush Primary Care Provider: Ramiro Rosa Instructions Print Language: Afghan Discharge Orders/Prescriptions Prescriptions: Continued quetiapine 150 mg tablet extended release [...] mg tablet 600 mg PO BID Neosporin (zqi-ptm-xkosz) 3.5mg-400 unit- 5,000 unit/gram ointment 1 applic [...] 0.5 mg tablet 0.25 mg PO TID Discontinued tamsulosin [Flomax] 0.4 mg capsule 0.4 mg PO QHS Qty: 30 1RF finasteride [Proscar] 5 mg tablet 5 mg PO DAILY Qty: 30 1RF Referrals / Follow Up: Ramiro Rosa MD [Primary Care Provider] - Salvador Rush MD [Med Staff - Active Staff] - Disposition Disposition (needs filled in before D/C Order can be placed): Home, Self Care 12/04/24 1210<Electronically signed by Salvador Rush MD>Salvador Rush MD CC: Dr. Ramiro Rosa MD ~ Signed [facility] Work Phone: 1(295) 406-921108-01-2025 Consult note Author [facility]ay [facility] Note Date/Time December 04, 2024 10: 33am [facility] Medical Records Department [address] [place] [address] Pre-Anesthesia Evaluation 12/04/24 1022 MR#: [id number] Acct: [id number] Name: CHAN BURCIAGA Rep #:[id number] : 1980 44 From: Vinay Maciel MD PCP: Dr. Ramiro Rosa MD Status:REG SDC Y Race: C Location: [facility] ASA Classification* ASA Classification ASA Classification: 3 [...] risk assessments. Anesthesia Type Anesthesia Type: General (Consider [place] scope if endotracheal intubation.) History Source History Obtained from:: Patient, Chart and Parent/ Guardian Anesthesia Focused Assessment* Temperature: 97.1 F Pulse Rate: 81 Blood Pressure: 105/70 Respiratory Rate: 16 Pulse Ox: 97 Oxygen Delivery Method: Room Air Airway Assessment Mouth opens: >3 cm Mallampati Score: IV Teeth Condition: Intact Neck Range of motion (ROM): Limited ROM (Somewhat Decreased) Labs Anesthesia Preop lab: CBC WBC 6.9 K/mm3 (4.4-11.0) 11/13/24 08:40 11/13/24 RBC 4.13 M/mm3 (4.6-6.2) L 11/13/24 08:40 11/13/24 Hgb 11.9 g/dL (13.0-16.5) L 11/13/24 08:40 5 Hct 35.4 % (40-54) L 11/13/24 08:40 11/13/24 Plt Count 496 K/mm3 (150-450) H 11/13/24 08:40 11/13/24 CHEMISTRY Potassium 3.8 mmol/L (3.3-5.1) 11/13/24 08:40 11/13/24 Sodium 135 mmol/L (133-145) 11/13/24 08:40 11/13/24 BUN 16 mg/dL (4-19) 11/13/24 08:40 11/13/24 Creatinine 1.02 mg/dL (0.70-1.20) 11/13/24 08:40 11/13/24 Glucose 115 mg/dL (70-99) H 11/13/24 08:40 11/13/24 COAG Pre-Assessment Diagnosis/Proposed Procedure Planned Operative Procedure(s): TURP 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: Anesthesia History - environmental services floor tech Hx Hospitalization Yes: 10/09/24 KIDNEY STONE 11/27/24 10:42 Any Problems With Anesthesia No 11/27/24 10:42 Cholinesterase deficiency No 11/27/24 10:42 You/Your Family Experience No 11/27/24 10:42 fever (hyperthermia) with Relationship Recent Exposure to Contagious No 12/04/24 09:54 Disease Does patient have nerve No 11/27/24 10:42 stimulator Patient instructed to have device shut off --Does patient have Pacemaker No 12/04/24 09:54 or ICD? When Was Last Pacemaker Check QUESTION #4 FULL TEXT: You/Your Family Experience fever (hyperthermia) with Anesthesia Last Oral Intake Last Oral intake: Last Oral Intake NPO since 20:00 12/04/24 09:54 Meds taken in AM with sips of water? Meds patient instructed to take am of surgery PONV PONV - environmental services floor tech: PONV - environmental services floor tech Female No 11/27/24 10:42 HX of Motion Sickness No 11/27/24 10:42 HX of N/V After Surgery No 11/27/24 10:42 Non-Smoker Yes 11/27/24 10:42 Duration of Surgery greater Yes 11/27/24 10:42 than 60 minutes Number of Risk Factors 2 11/27/24 10:42 PONV Score Moderate Risk 11/27/24 10:42 Height & Weight Height & Weight: Anesthesia: Height & Weight Height 5 ft 5 in 12/04/24 09:54 Weight: 82.8 kg 12/04/24 09:54 Body Mass Index (BMI) 30.4 12/04/24 09:54 Respiratory Assessment Respiratory Assessment - environmental services floor tech: Respiratory Tract Infection Hx - environmental services floor tech Hx Respiratory Tract Infection No 11/27/24 10:42 STOP Sleep Apnea STOP Sleep Apnea - environmental services floor tech: STOP Sleep Apnea - environmental services floor tech Hx Hypertension Yes: CONTROLLED WITH MED 11/27/24 10:42 Hx Sleep Apnea No 11/27/24 10:42 CPAP BIPAP Do you snore loudly (louder Yes 11/27/24 10:42 than talking or can be heard Do you often feel tired/ Yes 11/27/24 10:42 fatigued/ sleepy during daytime? Has anyone observed you stop No 11/27/24 10:42 breathing during sleep? STOP Results Positive 11/27/24 10:42 QUESTION #5 FULL TEXT : Do you snore loudly (louder than talking or can be heard through closed doors)? 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 Specify any problems Hx of Preganancy in last 3 N/A 11/27/24 10:42 Months Nurse Filling Out Transfusion DSCHRIBER 11/27/24 10:42 & Questions: Date: 11/27/24 11/27/24 10:42 Time: 10:43 11/27/24 10:42 Patient unable to answer at this time (ie. confused, unrespo /Reproduction History /Reproductive History - environmental services floor tech: /Reproductive Hx- environmental services floor tech Hx Now No 11/27/24 10:42 Gestational Age (in weeks): EDC: Hx Hx Para Hx Section SAB No 11/27/24 10:42 Active Medications Active Medications: Current Medications Generic Name Dose Route Start Last Admin Trade Name Freq PRN Reason Stop Dose Admin Cefazolin Sodium 2 gm/ Sodium 110 mls @ 200 mls/hr 12/04/24 11:30 Chloride IV 12/04/24 12:02 INTRAOP ONE Lactated Ringer's 1,000 mls @ 15 mls/hr 12/04/24 09:45 12/04/24 09:57 IV 15 mls/hr .Q48H VIDHI Administration PFSH Medical History Bladder disease Anxiety Lives in snf Arthritis Back pain Non-smoker Shortness of breath on exertion Intellectual disability Recurrent major depression in full remission Hyperlipidemia Essential hypertension Urinary tract infection with hematuria Home Medications ?Medication ?Instructions ?Recorded ?Last Taken ?Type fenofibrate nanocrystallized 145 145 mg PO DAILY 07/0812/03/24 History mg tablet folic acid 400 mcg tablet 0.4 mg PO DAILY@0800 9 12/03/24 History garlic 200 mg tablet 350 mg PO DAILY 07/08/18 History loratadine 10 mg capsule (Claritin 10 mg PO DAILY 09/2112/03/24 History Liqui-Gel) omega-3 fatty acids-fish oil 340 3 ea PO DAILY 9 11/27/24 History mg-1,000 mg capsule (Fish Oil) ammonium lactate 12 % topical cream 1 applic topical D AILY 05/29/23 10/22/24 History atorvastatin 40 mg tablet 40 mg PO DAILY 05/29/2311/05 History clonidine HCl 0.2 mg tablet 0.2 mg PO BID 05/29/2305/30 History doxazosin 2 mg tablet 2 mg PO QHS 05/29/23 5 History fluticasone propionate 50 2 spray intranasal DAILY 12/03/24 History mcg/actuation nasal spray,suspension (Allergy Relief (fluticasone)) losartan 100 mg tablet 100 mg PO DAILY 05/29/2305/30 History multivitamin-ferrous 1 tab PO DAILY 05/29/2311/05 History fumarate-folic acid 18 mg-400 mcg tablet (Certavite-Antioxidant) nabumetone 500 mg tablet 500 mg PO BID PRN pain 05/29 Unknown History quetiapine 150 mg tablet,extended 100 mg PO 0705/2912/04/24 History release 24 hr neomycin-bacitracn Zn-polymyx 3.5 1 applic topical TID PRN dry skin 11/05/23 10/22/24 History mg-400 unit-5,000 unit/gram top oint (Neosporin (acm-zzu-sdbzz)) oxcarbazepine 600 mg tablet 600 mg PO BID 11/05/2305/30 History clonazepam 0.5 mg tablet 0.25 mg PO TID 10/15/24 08/05/30 History quetiapine 200 mg tablet 200 mg PO 1600 10/15/24 07/05/30 History finasteride 5 mg tablet (Proscar) 5 mg PO DAILY #30 ta bs 10/30/24 12/03/24 Rx tamsulosin 0.4 mg capsule (Flomax) 0.4 mg PO QHS #30 c aps 10/30/24 12/03/24 Rx Allergy/AdvReac Type Severity Reaction Status Date / Time risperidone (From Risperdal) Allergy ANXIETY Verified 12/04/24 09:50 Family History Mother Hyperlipidemia Father Hyperlipidemia Surgical [...] and no additional complaints, except as documented. 12/04/24 1033 <Electronically signed by Vinay ybarra MD> Date _ Vinay Maciel MD Cosigner Signature: Date CC: ~ Signed [facility] Work Phone: 1(207) 680-879208-01-2025 Consult note [facility] Medical Records Department [facility] [place] [address] Anesthesia Postop Eval I 12/04/24 1213 MR#: [id number] Acct: [id number] Name: CHAN BURCIAGA Rep #:[id number] : 1980 44 From: Carmen Macias RESIDENT IN DIAGNOSTIC RADIOLOGY PCP: Dr. Ramiro Rosa MD Status:REG [facility] [place] Race: C Location: [place] [address] Anesthesia: Postop Eval I Current Vital Signs Temperature: 97.2 F Pulse Rate: 83 Blood Pressure: 113/65 Respiratory Rate: 20 Pulse Ox: 94 Oxygen Delivery Method: Room Air Assessment Airway patent: Yes Spontaneous unlabored respirations: Yes Mental status: Asleep nausea: No Vomiting: No Anesthesia Complication: No Fluid Hydration Crystalloid volume administer (ml): 300 Total IV fluid infused: 300 Progress Note Anesthesia document: Postop Eval 1 completed: Yes 12/04/24 1214 RESIDENT IN DIAGNOSTIC RADIOLOGY> Date _ Carmen Macias RESIDENT IN DIAGNOSTIC RADIOLOGY Cosigner Signature: Date CC: ~ Signed [facility]08-01-2025 Procedure note [facility] Medical Records Department [address] [place] [address] Operative Report 12/04/24 1210 MR#: [id number] Acct: [id number] Name: CHAN BURCIAGA Rep #:[id number] : 1980 44 From: Salvador Rush MD PCP: Dr. Ramiro Rosa MD Status:[facility] Location: [address] Operative Report (Standard) Operative Information Date of Procedure: 12/04/24 Pre-Operative Diagnosis: BPH with obstruction Post-Operative Diagnosis: The same Surgery/Procedure Performed: Transurethral section of prostate employment representative: No Type of Anesthesia: General RN Documented Start/Stop Times: Operation Date: 12/04/24 11:30 Case Time Into Pre-Op 12/04/24 09:38 Anesthesia Start 12/04/24 11:08 Into Room 08/01/25 11:08 Out of Pre-Op 12/04/24 11:08 Procedure Start 12/04/24 11:20 Procedure End 12/04/24 11:59 Procedure Start Time: : Procedure Stop Time: Select all DRAINS/GRAFTS/IMPLANTS that apply: Drains Drain details: 22 Tongan three-way Fisher Estimated Blood Loss: Minimal Specimen collected: Yes Description of specimen(s) removed: Prostate tissue Description of surgery: In the preoperative setting I discussed with the patient how the surgery would be done with expect afterwards. We discussed how a prostate resection is done and we discussed the risk of the surgery including, bleeding, infection, retrograde ejaculation, changes with ejaculation or intercourse,. We discussed the possibility that the resection of the prostate may not alleviate his urinarysymptoms. We discussed the small risk of developing scar tissue along the urethral channel and strictures. We also discussed the chance of the prostate could grow back and he may need further surgery or treatment in the future for prostate problems. Patient was taken back to the operating room, timeout procedure was performed, he was identified and marked and placed on the operating room table. He underwent general anesthesia. He was placed in dorsolithotomy position. Penis and testicles were prepped and draped in usual sterile fashion. Went into the bladder using the visual obturator with a resectoscope. Once inside the bladderidentified the right and left ureteral orifice. I then identified the prostate and the anatomy of the prostate. Imarked out the area of the sphincter and theverumontanum was identified. I then proceeded with the prostate resection firstresected the median lobe. And then resected the right lobe of the prostate. Then to resect the left lobe of the prostate. I then resected the apical tissueof the prostate. Thiswas a complete resection of all obstructive tissue to improve voiding and relieve obstruction. I then made sure that there was no injury to the sphincter or the verumontanum was still intact. At the end of theresection all the chips were Ellik out of the bladder. I then identified the left and right ureteral orifice and these were confirmed to be in good position and effluxing and not injured. The resectoscope was removed, a 22 Tongan catheter was placed into the bladder on continuous irrigation. And the urine was fairly light pink color and draining normally. He was taken back to the PACU in good condition. Surgical Findings: Obstructed prostate resected completely Complications Complications: No Admit VTE Documentation VTE Present on Admission: No VTE Mechan Device Prophylaxis: SCD's VTE Pharm Prophylaxis ordered?: No 12/04/24 1211 Cosigner Signature (if applicable): CC: Dr. Ramiro Rosa MD; Dr. Salvador Rush MD~ Signed [facility]08-01-2025 Discharge summary [facility] Medical Records Department [address] [place] [address] Instructions for Home/Discharge Instructions 12/04/24 1210 MR#: [id number] Acct: [id number] Name: CHAN BURCIAGA Rep #:[id number] : 1980 44 From: Salvador Rush MD PCP: Dr. Ramiro Rosa MD Status:REG SDC Discharge Instructions DC O2, CPAP, BIPAP needs Home O2 Discharge instructions: No Dressing / Incision Discharge Activity: Return to Normal Activity and May Not Drive (while taking narcotic pain medications.) Dressing / Incision Call your doctor if you observe: Fever of 101 or Higher Follow Up Care Please Follow Up With: Salvador Rush MD When: Call [phone] for an appointment Test Results: Test results from this visit will be discussed in further detail at your follow- up appointment, if applicable. Discharge Plan Admission Primary Reason for Your Visit: Transurethral section of prostate Attending Provider: Salvador Rush Primary Care Provider: Ramiro Rosa Instructions Print Language: Afghan Discharge Orders/Prescriptions Prescriptions: Continued quetiapine 150 mg tablet extended release [...] mg tablet 600 mg PO BID Neosporin (wed-bbk-ezxwg) 3.5mg-400 unit- 5,000 unit/gram ointment 1 applic [...] 0.5 mg tablet 0.25 mg PO TID Discontinued tamsulosin [Flomax] 0.4 mg capsule 0.4 mg PO QHS Qty: 30 1RF finasteride [Proscar] 5 mg tablet 5 mg PO DAILY Qty: 30 1RF Referrals / Follow Up: Ramiro Rosa MD [Primary Care Provider] - Salvador Rush MD [Med Staff - Active Staff] - Disposition Disposition (needs filled in before D/C Order can be placed): Home, Self Care 12/04/24 1210Salvador Rush MD CC: Dr. Ramiro Rosa MD ~ Signed [facility]08-01-2025 Consult note [facility] Medical Records Department [address] [place] [address] Pre-Anesthesia Evaluation 12/04/24 1022 MR#: [id number] Acct: [id number] Name: CHAN BURCIAGA Rep #:[id number] : 1980 44 From: Vinay Maciel MD PCP: Dr. Ramiro Rosa MD Status:REG [facility] [place] Race: C Location: [facility] ASA Classification* ASA Classification ASA Classification: 3 [...] risk assessments. Anesthesia Type Anesthesia Type: General (Consider [place] scope if endotracheal intubation.) History Source History Obtained from:: Patient, Chart and Parent/ Guardian Anesthesia Focused Assessment* Temperature: 97.1 F Pulse Rate: 81 Blood Pressure: 105/70 Respiratory Rate: 16 Pulse Ox: 97 Oxygen Delivery Method: Room Air Airway Assessment Mouth opens: >3 cm Mallampati Score: IV Teeth Condition: Intact Neck Range of motion (ROM): Limited ROM (Somewhat Decreased) Labs Anesthesia Preop lab: CBC WBC 6.9 K/mm3 (4.4-11.0) 11/13/24 08:40 11/13/24 RBC 4.13 M/mm3 (4.6-6.2) L 11/13/24 08:40 11/13/24 Hgb 11.9 g/dL (13.0-16.5) L 11/13/24 08:40 5 Hct 35.4 % (40-54) L 11/13/24 08:40 11/13/24 Plt Count 496 K/mm3 (150-450) H 11/13/24 08:40 11/13/24 CHEMISTRY Potassium 3.8 mmol/L (3.3-5.1) 11/13/24 08:40 11/13/24 Sodium 135 mmol/L (133-145) 11/13/24 08:40 11/13/24 BUN 16 mg/dL (4-19) 11/13/24 08:40 11/13/24 Creatinine 1.02 mg/dL (0.70-1.20) 11/13/24 08:40 11/13/24 Glucose 115 mg/dL (70-99) H 11/13/24 08:40 11/13/24 COAG Pre-Assessment Diagnosis/Proposed Procedure Planned Operative Procedure(s): TURP 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: Anesthesia History - environmental services floor tech Hx Hospitalization Yes: 10/09/24 KIDNEY STONE 11/27/24 10:42 Any Problems With Anesthesia No 11/27/24 10:42 Cholinesterase deficiency No 11/27/24 10:42 You/Your Family Experience No 11/27/24 10:42 fever (hyperthermia) with Relationship Recent Exposure to Contagious No 12/04/24 09:54 Disease Does patient have nerve No 11/27/24 10:42 stimulator Patient instructed to have device shut off --Does patient have Pacemaker No 12/04/24 09:54 or ICD? When Was Last Pacemaker Check QUESTION #4 FULL TEXT: You/Your Family Experience fever (hyperthermia) with Anesthesia Last Oral Intake Last Oral intake: Last Oral Intake NPO since 20:00 12/04/24 09:54 Meds taken in AM with sips of water? Meds patient instructed to take am of surgery PONV PONV - environmental services floor tech: PONV - environmental services floor tech Female No 11/27/24 10:42 HX of Motion Sickness No 11/27/24 10:42 HX of N/V After Surgery No 11/27/24 10:42 Non-Smoker Yes 11/27/24 10:42 Duration of Surgery greater Yes 11/27/24 10:42 than 60 minutes Number of Risk Factors 2 11/27/24 10:42 PONV Score Moderate Risk 11/27/24 10:42 Height & Weight Height & Weight: Anesthesia: Height & Weight Height 5 ft 5 in 12/04/24 09:54 Weight: 82.8 kg 12/04/24 09:54 Body Mass Index (BMI) 30.4 12/04/24 09:54 Respiratory Assessment Respiratory Assessment - environmental services floor tech: Respiratory Tract Infection Hx - environmental services floor tech Hx Respiratory Tract Infection No 11/27/24 10:42 STOP Sleep Apnea STOP Sleep Apnea - environmental services floor tech: STOP Sleep Apnea - environmental services floor tech Hx Hypertension Yes: CONTROLLED WITH MED 11/27/24 10:42 Hx Sleep Apnea No 11/27/24 10:42 CPAP BIPAP Do you snore loudly (louder Yes 11/27/24 10:42 than talking or can be heard Do you often feel tired/ Yes 11/27/24 10:42 fatigued/ sleepy during daytime? Has anyone observed you stop No 11/27/24 10:42 breathing during sleep? STOP Results Positive 11/27/24 10:42 QUESTION #5 FULL TEXT : Do you snore loudly (louder than talking or can be heard through closeddoors)? 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 Specify any problems Hx of Preganancy in last 3 N/A 11/27/24 10:42 Months Nurse Filling Out Transfusion DSCHRIBER 11/27/24 10:42 & Questions: Date: 11/27/24 11/27/24 10:42 Time: 10:43 11/27/24 10:42 Patient unable to answer at this time (ie. confused, unrespo /Reproduction History /Reproductive History - environmental services floor tech: /Reproductive Hx- environmental services floor tech Hx Now No 11/27/24 10:42 Gestational Age (in weeks): EDC: Hx Hx Para Hx Section SAB No 11/27/24 10:42 Active Medications Active Medications: Current Medications Generic Name Dose Route Start Last Admin Trade Name Freq PRN Reason Stop Dose Admin Cefazolin Sodium 2 gm/ Sodium 110 mls @ 200 mls/hr 12/04/24 11:30 Chloride IV 12/04/24 12:02 INTRAOP ONE Lactated Ringer's 1,000 mls @ 15 mls/hr 12/04/24 09:45 12/04/24 09:57 IV 15 mls/hr .Q48H VIDHI Administration PFSH Medical History Bladder disease Anxiety Lives in snf Arthritis Back pain Non-smoker Shortness of breath on exertion Intellectual disability Recurrent major depression in full remission Hyperlipidemia Essential hypertension Urinary tract infection with hematuria Home Medications ?Medication ?Instructions ?Recorded ?Last Taken ?Type fenofibrate nanocrystallized 145 145 mg PO DAILY 07/0812/03/24 History mg tablet folic acid 400 mcg tablet 0.4 mg PO DAILY@0800 9 12/03/24 History garlic 200 mg tablet 350 mg PO DAILY 07/08/18 History loratadine 10 mg capsule (Claritin 10 mg PO DAILY 09/2112/03/24 History Liqui-Gel) omega-3 fatty acids-fish oil 340 3 ea PO DAILY 9 11/27/24 History mg-1,000 mg capsule (Fish Oil) ammonium lactate 12 % topical cream 1 applic topical D AILY 05/29/23 10/22/24 History atorvastatin 40 mg tablet 40 mg PO DAILY 05/29/2311/05 History clonidine HCl 0.2 mg tablet 0.2 mg PO BID 05/29/2305/30 History doxazosin 2 mg tablet 2 mg PO QHS 05/29/23 5 History fluticasone propionate 50 2 spray intranasal DAILY 12/03/24 History mcg/actuation nasal spray,suspension (Allergy Relief (fluticasone)) losartan 100 mg tablet 100 mg PO DAILY 05/29/2305/30 History multivitamin-ferrous 1 tab PO DAILY 05/29/2311/05 History fumarate-folic acid 18 mg-400 mcg tablet (Certavite-Antioxidant) nabumetone 500 mg tablet 500 mg PO BID PRN pain 05/29 Unknown History quetiapine 150 mg tablet,extended 100 mg PO 0700 05/2912/04/24 History release 24 hr neomycin-bacitracn Zn-polymyx 3.5 1 applic topical TID PRN dry skin 11/05/23 10/22/24 History mg-400 unit-5,000 unit/gram top oint (Neosporin (mcd-yku-rjbds)) oxcarbazepine 600 mg tablet 600 mg PO BID 11/05/2305/30 History clonazepam 0.5 mg tablet 0.25 mg PO TID 10/15/2405/30 History quetiapine 200 mg tablet 200 mg PO 1600 10/15/2411/05 History finasteride 5 mg tablet (Proscar) 5 mg PO DAILY #30 ta bs 10/30/24 12/03/24 Rx tamsulosin 0.4 mg capsule (Flomax) 0.4 mg PO QHS #30 c aps 10/30/24 12/03/24 Rx Allergy/AdvReac Type Severity Reaction Status Date / Time risperidone (From Risperdal) Allergy ANXIETY Verified 12/04/24 09:50 Family History Mother Hyperlipidemia Father Hyperlipidemia Surgical [...] and no additional complaints, except as documented. 12/04/24 1033 tate HERNANDEZ> Date _ Vinay Maciel MD Cosigner Signature: Date CC: ~ Signed [facility]08-01-2025 History and physical note Author Salvador Rush [facility] Note Date/Time December 04, 2024 6:5 9am [facility] Medical Records Department [address] [place] [address] History & Physical Exam 12/04/24 0658 MR#: [id number] Acct: [id number] Name: CHAN BURCIAGA Rep #:[id number] : 1980 44 From: Salvador Rush MD PCP: Dr. Ramiro Rosa MD Status:PRE [facility] Location[place] [facility] HPI - General General Date of Service: 12/04/24 Chief Complaint: BPH with obstruction HPI Narrative CHAN BURCIAGA, is a 44 M who presents for a transurethral resection of the prostate for obstruction he has a very large obstructing prostate and we are to proceed with a TURP [facility] Medical History (Updated 11/27/24 @ 10:48 by Debora Wong) Bladder disease Anxiety Lives in snf Arthritis Back pain Non-smoker Shortness of breath [...] History mg-400 unit-5,000 unit/gram top oint (Neosporin (efg-jez-nvcag)) oxcarbazepine 600 mg tablet 600 mg PO BID 11/05/23 History clonazepam 0.5 mg tablet 0.25 mg PO TID 10/15/2410/05 History quetiapine 200 mg tablet 200 mg PO 1600 10/15/2410/04 History finasteride 5 mg tablet (Proscar) 5 mg PO DAILY #30 ta bs 10/30/24 Unknown Rx tamsulosin 0.4 mg capsule (Flomax) 0.4 mg PO QHS #30 c aps 10/30/24 Unknown Rx Allergy/AdvReac Type Severity Reaction Status Date / Time risperidone (From Risperdal) Allergy ANXIETY Verified 11/27/24 10:38 Family History Mother Hyperlipidemia Father Hyperlipidemia Surgical History (Updated 11/27/24 @ 10:48 by Debora Wong) Hx of colonoscopy Hx of cystoscopy Hx of cystoscopy History of testicular surgery History of ankle surgery Social History household members: other details: Lives with others in residential home number of children: 0 Smoking Status: Never smoker alcohol intake: never substance use type: does not use 12/04/2459 <Electronically signed by Salvador Rush MD> Cosigner Signature (if applicable): CC: Dr. Ramiro Rosa MD; Dr. Salvador Rush MD~ Signed [facility] Work Phone: 1(812) 690-658008-01-2025 History and physical note [facility] Medical Records Department [address] [place] [address] History & Physical Exam 12/04/24 0658 MR#: [id number] Acct: [id number] Name: CHAN BURCIAGA Rep #:[id number] : 1980 44 From: Salvador Rush MD PCP: Dr. Ramiro Rosa MD Status:PRE [facility] [place] [facility] HPI - General General Date of Service: 12/04/24 Chief Complaint: BPH with obstruction HPI Narrative CHAN BURCIAGA, is a 44 M who presents for a transurethral resection of the prostate for obstruction he has a very large obstructing prostate and we are to proceed with a TURP [facility] Medical History (Updated 11/27/24 @ 10:48 by Debora Wong) Bladder disease Anxiety Lives in snf Arthritis Back pain Non-smoker Shortness of breath [...] History mg-400 unit-5,000 unit/gram top oint (Neosporin (jub-ieb-vinyr)) oxcarbazepine 600 mg tablet 600 mg PO BID 11/05/23 History clonazepam 0.5 mg tablet 0.25 mg PO TID 10/15/2410/05 History quetiapine 200 mg tablet 200 mg PO 1600 10/15/2410/04 History finasteride 5 mg tablet (Proscar) 5 mg PO DAILY #30 ta bs 10/30/24 Unknown Rx tamsulosin 0.4 mg capsule (Flomax) 0.4 mg PO QHS #30 c aps 10/30/24 Unknown Rx Allergy/AdvReac Type Severity Reaction Status Date / Time risperidone (From Risperdal) Allergy ANXIETY Verified 11/27/24 10:38 Family History Mother Hyperlipidemia Father Hyperlipidemia Surgical History (Updated 11/27/24 @ 10:48 by Debora Wong) Hx of colonoscopy Hx of cystoscopy Hx of cystoscopy History of testicular surgery History of ankle surgery Social History household members: other details: Lives with others in residential home number of children: 0 Smoking Status: Never smoker alcohol intake: never substance use type: does not use 12/04/24 0659 Cosigner Signature (if applicable): CC: Dr. Ramiro Rosa MD; Dr. Salvador Rush MD~ Signed [facility]08-01-2025 [facility] Medical Records Department [address] [place] [address] History Physical Exam 12/04/24 0658 MR#: [id number] Acct: [id number] Name: CHAN BURCIAGA Rep #: [id number] : 1980 44 From: Salvador Rush MD PCP: Dr. Ramiro Rosa MD Status:PRE [facility] [place] [facility] HPI - General General Date of Service: 12/04/24 Chief Complaint: BPH with obstruction HPI Narrative CHAN BURCIAGA, is a 44 M who presents for a transurethral resection of the prostate for obstruction he has a very large obstructing prostate and we are to proceed with a TURP [facility] Medical History (Updated 11/27/24 @ 10:48 by Debora Wong) Bladder disease Anxiety Lives in snf Arthritis Back pain Non-smoker Shortness of breath [...] topical cream 1 applic topical DAILY 05/29/23 10/22/24 History atorvastatin 40 mg tablet 40 mg PO DAILY 05/29/23 10/22/24 H istory clonidine HCl 0.2 mg tablet 0.2 mg PO BID 05/29/23 10/30/24 Hi story doxazosin 2 mg tablet 2 mg PO QHS 05/29/23 10/22/24 Hist ory fluticasone propionate 50 2 spray intranasal DAILY 05/29/23 10/22/24 History mcg/actuation nasal spray,suspension (Allergy Relief (fluticasone)) losartan 100 mg tablet 100 mg PO DAILY 05/29/23 10/30/24 History multivitamin-ferrous 1 tab PO DAILY 05/29/23 10/22/24 H istory fumarate-folic acid 18 mg-400 mcg tablet (Certavite-Antioxidant) nabumetone 500 mg tablet 500 mg PO BID PRN pain 05/29/23 Un known History quetiapine 150 mg tablet,extended 100 mg PO 0700 05/29/23 10/30/24 History release 24 hr neomycin-bacitracn Zn-polymyx 3.5 1 applic topical TID PRN dry skin 11/05/23 10/22/24 History mg-400 unit-5,000 unit/gram top oint (Neosporin (get-znp-aqhwv)) oxcarbazepine 600 mg tablet 600 mg PO BID 11/05/23 10/30/24 Hi story clonazepam 0.5 mg tablet 0.25 mg PO TID 10/15/24 10/30/24 H istory quetiapine 200 mg tablet 200 mg PO 1600 10/15/24 10/22/24 H istory finasteride 5 mg tablet (Proscar) 5 mg PO DAILY #30 tabs 10/30/24 U nknown Rx tamsulosin 0.4 mg capsule (Flomax) 0.4 mg PO QHS #30 caps 10/30/24 Unknown Rx Allergy/AdvReac Type Severity Reaction Status Date / Time risperidone (From Risperdal) Allergy ANXIETY Verified 11/27/24 10:38 Family History Mother Hyperlipidemia Father Hyperlipidemia Surgical History (Updated 11/27/24 @ 10:48 by Debora Wong) Hx of colonoscopy Hx of cystoscopy Hx of cystoscopy History of testicular surgery History of ankle surgery Social History household members: other details: Lives with others in residential home number of children: 0 Smoking Status: Never smoker alcohol intake: never substance use type: does not use 12/04/24 0659 Cosigner Signature (if applicable): CC: Dr. Ramiro Rosa MD; Dr. Salvador Rush [facility] encounter Note* Telephone Encounter - Jessica Sood - 12/03/2024 11:18 AM EDT Fax from [place] [facility] Prescription Request: fluticasone (Flonase) 50 MCG/ACT nasal spray Last medication check: 12/24/23 Last physical exam: 04/20/24 Next scheduled appointment: 12/15/24 Last date of refill on this medication 02/03/24 (qty 16g refill 11) [id number] Miscellaneous Notes* Telephone Encounter - Jessica Sood - 12/03/2024 11:18 AM EDT Fax from [place] [facility] Prescription Request: fluticasone (Flonase) 50 MCG/ACT nasal spray Last medication check: 12/24/23 Last physical exam: 04/20/24 Next scheduled appointment: 12/15/24 Last date of refill on this medication 02/03/24 (qty 16g refill 11) documented in this [facility]07-14-2025 Telephone encounter Note* Telephone Encounter - YANNICK Jones CNP - 11/16/2024 12:02 PM EDT Noted, [id number] Miscellaneous Notes* Telephone Encounter - YANNICK Jones CNP - 11/16/2024 12:02 PM EDT Noted, * Telephone Encounter - Julisa Varela - 11/16/2024 11:19 AM EDT Name of caller: Mary Contact phone number: [phone] Relationship to Patient: Nurse with [facility] Provider: Dr Rosa Practice: [facility] Chief Complaint/Reason for Call: Pt was in [facility] on Saturday due to blood in urine . FYI Best time of day caller can be reached: no Patient advised that office/PCP has 24-48 business hours to return their call: No documented in this [facility]07-14-2025 Telephone encounter Note* Telephone Encounter - Julisa Varela - 11/16/2024 11:19 AM EDT Name of caller: Mary Contact phone number: [phone] Relationship to Patient: Nurse with [facility] Provider: Dr Rosa Practice: [facility] Chief Complaint/Reason for Call: Pt was in [facility] on Saturday due to blood in urine . Best time of day caller can be reached: no Patient advised that office/PCP has 24-48 business hours to return their call: No [id number] Discharge summary [facility] Medical Records Department [address] [place] [address] Emergency Department Summary 11/13/24 MR#: [id number] Acct: [id number] Name: CHAN BURCIAGA Rep #:[id number] : 1980 44 From: Cristian naqvi DO PCP: Dr. Ramiro Rosa MD Status:[facility] ER Location: ED ADDENDUM by Dr. Cristian Hua DO on 11/13/24 at 1023 Given patient is on prolonging QTc medications will switch to a 7-day course of Bactrim instead of Levaquin. 11/13/24 1023 Cosigner Signature (if applicable): cc: Dr. Ramiro Rosa MD ~* Signed HPI History of Present Illness Chief Complaint: Complaint Narrative Narrative: Chief complaint and HPI: Hematuria. 44-year-old male with past medical history of urolithiasis, HTNwho presents for evaluation of hematuria. History taken bypatient, group fitness manager, and medical record. Patient follows with Dr. Rush. He had a cystoscopylithoplexy and laser of large bladder stones and removal of left stent on 10/30. 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 Hematuria continued until he passed a large clot today. He endorses dysuria. Denies any fever, chills, shortness of breath, chest pain abdominal pain, nausea, vomiting. States he feels like he is emptying his bladder. Review of systems: See HPI Medications: As listed on the chart Allergies: As listed on the chart PFSH: Per chart Vital signs: As listed on the chart. Reviewed. Physical exam: Gen: Alert and oriented, NAD Head: Normocephalic, atraumatic Eyes: No sclera icterus, conjunctiva clear ENT: Moist mucous membranes Neck: Trachea midline, No JVD CV: RRR, no murmurs, no peripheral edema Resp: Lungs CTA BL, no w/r/c GI: Abd soft, non-distended, non-tender, no r/r/g : No CVA tenderness. Circumcised penis. No penile tenderness or discharge. No penile or testicular swelling. Normal lie and position of the testicles. No testicular tenderness, masses, or skin changes. Cremasteric reflexes intact and equal bilaterally. No rashes. No palpable hernias. No blood at penile meatus. Musc: Full ROM, no deformity Skin: Warm, dry Neuro: Alert, oriented, grossly intact, sensation intact Psych: Cooperative, appropriate mood and affect [facility] Medical History Anxiety Dietary restriction Lives in snf Arthritis Back pain Non-smoker Shortness of breath [...] History mg-400 unit-5,000 unit/gram top oint (Neosporin (wbd-jke-sqjqh)) oxcarbazepine 600 mg tablet 600 mg PO BID 11/05/23 History clonazepam 0.5 mg tablet 0.25 mg PO TID 10/15/2410/05 History quetiapine 200 mg tablet 200 mg PO 1600 10/15/2410/04 History cephalexin 500 mg capsule 500 mg PO TID #15 caps 10/23 Unknown Rx oxycodone 5 mg tablet 5 mg PO Q6H PRN pain 7 days #20 10/23/24 10/29/24 Rx tabs finasteride 5 mg tablet (Proscar) 5 mg PO DAILY #30 ta bs 10/30/24 Unknown Rx sulfamethoxazole 800 1 tab PO BID #14 tabs Unknown Rx mg-trimethoprim 160 mg tablet (Bactrim DS) tamsulosin 0.4 mg capsule (Flomax) 0.4 mg PO QHS #30 c aps 10/30/24 Unknown Rx Allergy/AdvReac Type Severity Reaction Status Date / Time risperidone (From Risperdal) Allergy ANXIETY Verified 11/13/24 07:46 Family History Mother Hyperlipidemia Father Hyperlipidemia Surgical History Hx of colonoscopy Hx of cystoscopy Hx of cystoscopy History of testicular surgery History of ankle surgery Social History household members: other details: Lives with others in residential home number of children: 0 Smoking Status: Never smoker alcohol intake: never substance use type: does not use EXAM Physical Exam Const Vital Signs: 11/13/24 07:33 11/13/24 09:33 Temperature 98 F Temperature Source Temporal Pulse Rate 96 71 Respiratory Rate 14 18 Blood Pressure 126/88 H 109/76 Blood Pressure Mean 100 87 Pulse Ox 98 97 Oxygen Delivery Method Room Air Room Air MDM MDM MDM Narrative Medical decision making narrative: 44-year-old male with past medical history of urolithiasis, HTN who presents forevaluation of hematuria. 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 Patient follows with Dr. Rush. He had a cystoscopylithoplexyand laser of large bladder stones and removal of left stent on 10/30. I did personally review his operative note. Differential diagnosis includes but is not limited to hematuria, urinary retention, UTI, urolithiasis, hydronephrosis. NS bolus ordered. Will BladderScan the patient. Basic labs ordered with CT abdomen pelvis without contrast. Patient was bladder scan inour emergency department, bladder scan less than 200 mL. Patient not retaining urine. He wasable tovoid in our emergency department without difficulty. No gross hematuria. CBC without leukocytosis. Patient has baseline anemia of 11.9. This was compared to previous labs. He has thrombocytosis of 496. BMP unremarkable without significant electrolyte abnormality or VAL. UA is positivefor blood, leuk esterase, WBC. Negative for bacteria and nitrates. However still concerning for UTI. Urine culturesent. CT abdomen pelvis shows multiple nonobstructive bilateral intrarenal calculi. No evidence of obstructed uropathyat this time. Small bilateral inguinal hernias containing fat worse on the right side. Prostatic enlargement with identification of the bladder base. Fatty infiltration of the liver. Patient's hematuria likely secondary to UTI. He has no urinary retention or gross hematuria to indicate Fisher catheter placement. On chart review, patient has a urine culture from 2023 that grew out normal oral princess. However given patient's recent procedure, will cover him more broadly with a 7-day course of Levaquin. Follow-up with urology. Return back to the ED if symptoms change or worsen. Patient and snf care workerconfirmed understanding of the plan. Patient is stable to dischargehome. Impression: 1. UTI 2. Hematuria 3. History of urolithiasis requiring ureteral stent Lab Data Labs: Laboratory Results - last 24 hr 11/13/24 11/13/24 08:40 09:10 WBC 6.9 RBC 4.13 L Hgb 11.9 L Hct 35.4 L MCV 85.7 MCH 28.8 MCHC 33.6 RDW Std Deviation 42.4 RDW Coeff of Jaime 13.5 Plt Count 496 H MPV 8.3 Immature Gran % (Auto) 0.700 Neut % (Auto) 54.5 Lymph % (Auto) 33.5 [place] % (Auto) 6.8 Eos % (Auto) 3.6 Baso % (Auto) 0.9 Absolute Neuts (auto) 3.8 Absolute Lymphs (auto) 2.32 Nucleated RBC % 0 Sodium 135 Potassium 3.8 Chloride 102 Carbon Dioxide 23.5 Anion Gap 10 BUN 16 Creatinine 1.02 Estim Creat Clear Calc 93.00 Est GFR (MDRD) Non-Af 92 BUN/Creatinine Ratio 15.6 Glucose 115 H Calcium 9.7 Urine Color Yellow Urine Clarity Sl. Cloudy Urine pH 7.0 Ur Specific Rarden 1.015 Urine Protein 30 H Urine Glucose (UA) Normal Urine Ketones Negative Urine Occult Blood 250 H Urine Nitrite Negative Urine Bilirubin Negative Urine Urobilinogen Normal Ur Leukocyte Esterase 100 H Urine RBC 10-25 SEEN Urine WBC 10-25 SEEN Ur Squamous Epith Cells 0 SEEN Urine Bacteria 0 SEEN Urine Mucus 0 SEEN Radiography Diagnostic Testing: Clinical Impression(s) from Imaging Studies Abdomen/Pelvis CT 11/13/24 08:06 IMPRESSION: Multiple nonobstructive bilateral intrarenal calculi. No evidence of obstructive uropathy at this time. Small bilateral inguinal hernias containing fat worse on the right side. Prostatic enlargement with indentation of the bladder base. Fatty infiltration of the liver. Reading Location: [facility] Discharge Plan Triage Chief Complaint: Complaint ED Provider: Cristian Hua Dx/Rx/DC Orders Prescriptions: No Action quetiapine 150 [...] mg tablet 600 mg PO BID Neosporin (jzd-djk-mdzbm) 3.5mg-400 unit- 5,000 unit/gram ointment 1 applic [...] (Reason: pain) 7 Days Qty: 20 0RF sulfamethoxazole-trimethoprim [Bactrim DS] 800-160 mg tablet 1 tab PO BID Qty: 14 0RF tamsulosin [Flomax] 0.4 mg capsule 0.4 mg PO QHS Qty: 30 1RF finasteride [Proscar] 5 mg tablet 5 mg PO DAILY Qty: 30 1RF Primary Care Provider: Ramiro Rosa Referrals: Ramiro Rosa MD [Primary Care Provider] - Print Language: Afghan What to do if you have Problems For any increased pain, shortness of breath, bleeding, nausea or vomiting, chestpain, or any unexpected problems, contact your Primary Care Provider. Call [facility] ([phone]) or report tothe closest Emergency Room. Call 911 if necessary. 11/13/24 1018 Cosigner Signature (if applicable): CC: Dr. Ramiro Rosa MD ~ Signed [facility]07-11-2025 Radiology Diagnostic study note [facility] Imaging Services [address] [place], [place] [id number] Abdomen/Pelvis without Cont MR#: [id number] Acct: [id number] Name: CHAN BURCIAGA Rep #: [id number] : 1980 M 44 From: Gary Mahoney MD PCP: Dr. Ramiro Rosa MD Status: REG ER Study:Abdomen/Pelvis without Cont Date of Exa m: 11/13/24 Exam# [id number] Ordering Dr: Cristian Jimenez DO PROCEDURE: ABDOMEN/PELVIS WITHOUT CONT 11/13/2024 REASON FOR EXAM: PAIN Hematuria. History of bilateral renal calculi and obstructive uropathy. TECHNIQUE: ABDOMEN/PELVIS WITHOUT CONT Noncontrast technique limits evaluation of the abdominal and pelvic viscera. Coronal and Sagittal reconstruction series were provided. One or more dose reduction techniques were used (e.g., Automated exposure control, adjustment of the mA and/or kV according to patient size, use of iterative reconstruction technique). RADIATION DOSE SUMMARY: CTDlvol: 11.61 mGy DLP: 684.8 mGycm COMPARISON: Prior study dated October 08, 2024. FINDINGS: Lung bases: Mild dependent atelectasis. Coronary artery calcification. Liver: Diffuse fatty infiltration. Gallbladder: Sludge is seen within the gallbladder lumen. Spleen: Normal size. Pancreas: Normal size. No surrounding inflammation. Adrenals: Unremarkable Kidneys: Once again, there were multiple small bilateral intrarenal calculi. Stable left renal cysts. No evidence of ureteral obstruction at this time. The previously seen calculus in the distal left ureter is not seen at this time. Bladder: Unremarkable. The previously seen multiple stones at the base of the bladder are not seen at this time. Prosthetic enlargement with indentation of the bladder base. Bilateral inguinal hernias containing fat more prominent on the right side. Bowel: Unremarkable Appendix: Unremarkable Lymph nodes: No lymph nodes are seen. Vasculature: Unremarkable Peritoneum / Retroperitoneum: Unremarkable. Bones: Mild degree of degenerative changes of the lumbar spine. CT/Abdomen/Pelvis without Cont IMPRESSION: Multiple nonobstructive bilateral intrarenal calculi. No evidence of obstructive uropathy at this time. Small bilateral inguinal hernias containing fat worse on the right side. Prostatic enlargement with indentation of the bladder base. Fatty infiltration of the liver. Reading Location: [place] [address] CC: Dr. Cristian Hua DO; Dr. Ramiro Rosa MD ~ Medical Records Receptionist: Signed [facility]06-27-2025 Consult note [facility] Medical Records Department [address] [place] [address] Anesthesia Postop Eval I 10/30/24 1508 MR#: [id number] Acct: [id number] Name: CHAN BURCIAGA Rep #:[id number] : 1980 44 From: Oliverio Carrier o RESIDENT IN DIAGNOSTIC RADIOLOGY PCP: Dr. Ramiro Rosa MD Status:[place] [facility] [place] Race: C Location: [place] [address] Anesthesia: Postop Eval I Current Vital Signs [...] Postop Eval 1 completed: Yes 10/30/24 1509 ero RESIDENT IN DIAGNOSTIC RADIOLOGY> Date _ Oliverio Carriero RESIDENT IN DIAGNOSTIC RADIOLOGY Cosigner Signature: Date CC: ~ Signed [facility]06-27-2025 Consult note Author Vinay Maciel [facility] Note Date/Time October 30, 2024 12:2 3pm [facility] Medical Records Department [address] [place] [address] Pre-Anesthesia Evaluation 10/30/24 1214 MR#: [id number] Acct: [id number] Name: CHAN BURCIAGA Rep #:[id number] : 1980 44 From: Vinay Maciel MD PCP: Dr. 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 Hx Hospitalization Yes: 10/09/24 KIDNEY STONE 10/28/24 [...] sips of water?: Yes PONV PONV - environmental services floor tech: PONV - environmental services floor tech Female No 10/28/24 16:22 HX of Motion [...] 10/30/24 11:29 Respiratory Assessment Respiratory Assessment - environmental services floor tech: Respiratory Tract Infection Hx - environmental services floor tech Hx Respiratory Tract Infection No 10/28/24 16:22 STOP Sleep Apnea STOP Sleep Apnea - environmental services floor tech: STOP Sleep Apnea - environmental services floor tech Hx Hypertension Yes: CONTROLLED WITH MED 10/28/24 [...] Tobacco Use History Tobacco Use History - environmental services floor tech: Tobacco Use History - environmental services floor tech Tobacco Use Non-smoker 03/02/21 15:59 Smoking Status Never smoker 10/28/24 16:22 Hx Tobacco Use No 10/28/24 16:22 Years Smoking Packs Smoked per Day Smoking Cessation Date was within the last 15 years Hx Smoking Cessation Date Hx Smoking Cessation Counseling Hematologic Medial History Hematologic Hx - environmental services floor tech: 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 Specify any problems Hx of Preganancy in last 3 N/A 10/28/24 16:22 Months Nurse Filling Out Transfusion [facility] 10/28/24 16:22 & Questions: Date: 10/28/24 10/28/24 16:22 Time: 16:23 10/28/24 16:22 Patient unable to answer at this time (ie. confused, unrespo /Reproduction History /Reproductive History - environmental services floor tech: /Reproductive Hx- environmental services floor tech Hx Now No 10/28/24 16:22 Gestational Age [...] Medical History Anxiety Dietary restriction Lives in snf Arthritis Back pain Non-smoker Shortness of breath [...] History mg-400 unit-5,000 unit/gram top oint (Neosporin (umd-lgt-npcyz)) oxcarbazepine 600 mg tablet 600 mg PO [...] MD Cosigner Signature: Date CC: ~ Signed [facility] Work Phone: 1(298) 272-611506-27-2025 Procedure note [facility] Medical Records Department [address] [place] [address] Operative Report 10/30/24 1410 MR#: [id number] Acct: [id number] Name: CHAN BURCIAGA Rep #:[id number] : 1980 44 From: Salvador Rush MD PCP: Dr. Ramiro Rosa MD Status:[facility] Location: [place] [address] Operative Report (Standard) Operative Information Date of Procedure: 10/30/24 Pre-Operative Diagnosis: Large bladder stones status post laser of left stones Post-Operative Diagnosis: Same Surgery/Procedure Performed: Cystolitholapaxy and laser of large bladder stones and removal of leftstent employment representative: No Type of Anesthesia: General RN Documented [...] went in the bladder with a 21 Tongan rigid cystourethroscope went inside the bladder grabbed [...] Rosa MD; Dr. Salvador Rush MD~ Signed [facility]06-27-2025 Discharge summary [facility] Medical Records Department [address] [place] [address] Instructions for Home/Discharge Instructions 10/30/24 1331 MR#: [id number] Acct: [id number] Name: CHAN BURCIAGA Rep #:[id number] : 1980 44 From: Salvador Rush MD PCP: Dr. Ramiro Rosa MD Status:REG [facility] Discharge Instructions Diet Discharge Diet: No restrictions DC O2, CPAP, BIPAP needs Home O2 Discharge instructions: No Dressing / Incision Discharge Activity: Return to Normal Activity Follow Up Care Please Follow Up With: Salvador Rush MD When: Call [phone] for an appointment Test Results: Test results from this visit will be discussed in further detail at your follow- up appointment, if applicable. Discharge Plan Admission Primary Reason for Your Visit: laser bladder stones Attending Provider: Salvador Rush Primary Care Provider: Ramiro Rosa Instructions Print Language: Afghan Discharge Orders/Prescriptions Prescriptions: New sulfamethoxazole-trimethoprim [Bactrim DS] [...] mg tablet 600 mg PO BID Neosporin (vha-hfm-icgxy) 3.5mg-400 unit- 5,000 unit/gram ointment 1 applic [...] CC: Dr. Ramiro Rosa MD ~ Signed [facility]06-27-2025 Consult note [facility] Medical Records Department [address] [place] [address] Pre-Anesthesia Evaluation 10/30/24 1214 MR#: [id number] Acct: [id number] Name: CHAN BURCIAGA Rep #:[id number] : 1980 44 From: Vinay Maciel MD PCP: Dr. 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 tech Hx Hospitalization Yes: 10/09/24 KIDNEY STONE 10/28/24 [...] sips of water?: Yes PONV PONV - environmental services floor tech: PONV - environmental services floor tech Female No 10/28/24 16:22 HX of Motion [...] 10/30/24 11:29 Respiratory Assessment Respiratory Assessment - environmental services floor tech: Respiratory Tract Infection Hx - environmental services floor tech Hx Respiratory Tract Infection No 10/28/24 16:22 STOP Sleep Apnea STOP Sleep Apnea - environmental services floor tech: STOP Sleep Apnea - environmental services floor tech Hx Hypertension Yes: CONTROLLED WITH MED 10/28/24 [...] Tobacco Use History Tobacco Use History - environmental services floor tech: Tobacco Use History - environmental services floor tech Tobacco Use Non-smoker 03/02/21 15:59 Smoking Status Never smoker 10/28/24 16:22 Hx Tobacco Use No 10/28/24 16:22 Years Smoking Packs Smoked per Day Smoking Cessation Date was within the last 15 years Hx Smoking Cessation Date Hx Smoking Cessation Counseling Hematologic Medial History Hematologic Hx - environmental services floor tech: 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 Specify any problems Hx of Preganancy in last 3 N/A 10/28/24 16:22 Months Nurse Filling Out Transfusion [facility] 10/28/24 16:22 & Questions: Date: 10/28/24 10/28/24 16:22 Time: 16:23 10/28/24 16:22 Patient unable to answer at this time (ie. confused, unrespo /Reproduction History /Reproductive History - environmental services floor tech: /Reproductive Hx- environmental services floor tech Hx Now No 10/28/24 16:22 Gestational Age [...] Medical History Anxiety Dietary restriction Lives in snf Arthritis Back pain Non-smoker Shortness of breath [...] oil 340 3 ea PO DAILY 9 10/22/24 History mg-1,000 mg capsule (Fish Oil) [...] History mg-400 unit-5,000 unit/gram top oint (Neosporin (jta-wrz-abfbb)) oxcarbazepine 600 mg tablet 600 mg PO [...] 10/30/24 1223 tate HERNANDEZ> Date _ Vinay Maciel MD Cosigner Signature: Date CC: ~ Signed [facility]06-20-2025 Discharge summary [facility] Medical Records Department [address] [place] [address] Instructions for Home/Discharge Instructions 10/23/24 0849 MR#: [id number] Acct: [id number] Name: CHAN BURCIAGA Rep #:[id number] : 1980 44 From: Salvador Rush MD PCP: Dr. Ramiro Rosa MD Status:REG [facility] Discharge Instructions Diet Discharge Diet: No restrictions DC O2, CPAP, BIPAP needs Home O2 Discharge instructions: No Dressing / Incision Discharge Activity: Return to Normal Activity and May Not Drive (while taking narcotic pain medications.) Dressing / Incision Call your doctor if you observe: Fever of 101 or Higher Follow Up Care Please Follow Up With: Salvador Rush MD When: Call [phone] for an appointment Test Results: Test results from this visit will be discussed in further detail at your follow- up appointment, if applicable. Discharge Plan Admission Primary Reason for Your Visit: laser stone and stent Attending Provider: Salvador Rush Primary Care Provider: Ramiro Rosa Instructions Print Language: Afghan Discharge Orders/Prescriptions Prescriptions: New cephalexin 500 mg [...] mg tablet 600 mg PO BID Neosporin (rby-tcn-tsjbx) 3.5mg-400 unit- 5,000 unit/gram ointment 1 applic [...] CC: Dr. Ramiro Rosa MD ~ Signed [facility]06-20-2025 Consult note [facility] Medical Records Department [address] [place] [address] Anesthesia Postop Eval I 10/23/24 0858 MR#: [id number] Acct: [id number] Name: CHAN BURCIAGA Rep #:[id number] : 1980 44 From: Kirk LUNDBERG PCP: Dr. Ramiro Rosa MD Status:REG [facility] [place] Race: C Location: [place] [address] Anesthesia: Postop Eval I Current Vital Signs Temperature: 97 F Pulse Rate: 97 Blood Pressure: 113/78 Respiratory Rate: 16 Pulse Ox: 94 Assessment Airway patent: Yes Spontaneous unlabored respirations: Yes nausea: No Vomiting: No Anesthesia Complication: No Fluid Hydration Crystalloid volume administer (ml): 800 Total IV fluid infused: 800 Progress Note Anesthesia document: Postop Eval 1 completed: Yes 10/23/24 0859 RESIDENT IN DIAGNOSTIC RADIOLOGY> Date _ Kirkjocelyn GarcíaLadysmith RESIDENT IN DIAGNOSTIC RADIOLOGY Cosigner Signature: Date CC: ~ Signed [facility]06-20-2025 Procedure note [facility] Medical Records Department [address] [place] [address] Operative Report 10/23/24 0849 MR#: [id number] Acct: [id number] Name: CHAN BURCIAGA Rep #:[id number] : 1980 44 From: Salvador Rush MD PCP: Dr. Ramiro Rosa MD Status:REG [facility] Location: [address] Operative Report (Standard) Operative Information Date of Procedure: 10/23/24 Pre-Operative Diagnosis: Kidney stones and ureteral stones large and multiple Post-Operative Diagnosis: The same Surgery/Procedure Performed: Cystoscopy left ureteroscopy laser lithotripsy of multiple stones in the ureter multiple stones in the kidney and left stent placement employment representative: No Type of Anesthesia: General RN Documented Start/Stop Times: Operation Date: 10/23/24 07:30 Case Time Into Pre-Op 10/23/24 06:07 Out of Pre-Op 10/23/24 07:20 Anesthesia Start 10/23/24 07:25 Into Room 10/23/24 07:25 Procedure Start 10/23/24 07:38 Procedure End 10/23/24 08:45 Procedure Start Time: 07:38 Procedure Stop Time: 08:50 Select all DRAINS/GRAFTS/IMPLANTS that apply: Drains Drain details: 6 Tongan by 26 cm stent Estimated Blood Loss: None Specimen collected: No Description of surgery: Patient was taken back to the operating room after smooth induction of general anesthesia he was placed supine on the operating room table and then in dorsolithotomy position. The penis and testicleswere prepped and draped in usual sterile fashion went into the bladder with a 21 Tongan rigid cystourethroscope he had a large amount [...] Rosa MD; Dr. Salvador Rush MD~ Signed [facility]06-20-2025 Consult note Author Vinay Maciel [facility] Note Date/Time October 23, 2024 6:49 am [facility] Medical Records Department [address] [place] [address] Pre-Anesthesia Evaluation 10/23/24 0643 MR#: [id number] Acct: [id number] Name: CHAN BURCIAGA Rep #:[id number] : 1980 44 From: Vinay Maciel MD PCP: Dr. 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: Anesthesia History - environmental services floor tech Hx Hospitalization Yes: 10/09/24 KIDNEY STONE 10/15/24 [...] sips of water?: Yes PONV PONV - environmental services floor tech: PONV - environmental services floor tech Female No 10/15/24 10:22 HX of Motion [...] 10/23/24 06:29 Respiratory Assessment Respiratory Assessment - environmental services floor tech: Respiratory Tract Infection Hx - environmental services floor tech Hx Respiratory Tract Infection No: COUGH 10/15/24 10:22 Any additional information?: Yes Hx Respiratory Tract Infection: No STOP Sleep Apnea STOP Sleep Apnea - environmental services floor tech: STOP Sleep Apnea - environmental services floor tech Hx Hypertension Yes: CONTROLLED WITH MED 10/15/24 [...] Tobacco Use History Tobacco Use History - environmental services floor tech: Tobacco Use History - environmental services floor tech Tobacco Use Non-smoker 03/02/21 15:59 Smoking Status Never smoker 10/15/24 10:22 Hx Tobacco Use No 10/15/24 10:22 Years Smoking Packs Smoked per Day Smoking Cessation Date was within the last 15 years Hx Smoking Cessation Date Hx Smoking Cessation Counseling Hematologic Medial History Hematologic Hx - environmental services 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: 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 Hx of Blood Transfusion No 10/15/24 10:22 [...] confused, unrespo /Reproduction History /Reproductive History - environmental services floor tech: /Reproductive Hx- environmental services floor tech Hx Now No 10/15/24 10:22 Gestational Age [...] Medical History Anxiety Dietary restriction Lives in snf Arthritis Back pain Non-smoker Shortness of breath [...] History mg-400 unit-5,000 unit/gram top oint (Neosporin (iku-jpa-bfggf)) oxcarbazepine 600 mg tablet 600 mg PO [...] MD Cosigner Signature: Date CC: ~ Signed [facility] Work Phone: 1(693) 841-703506-20-2025 Consult note [facility] Medical Records Department [address] [place] [address] Pre-Anesthesia Evaluation 10/23/24 0643 MR#: [id number] Acct: [id number] Name: CHAN BURCIAGA Rep #:[id number] : 1980 44 From: Vinay Maciel MD PCP: Dr. 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: Anesthesia History - environmental services floor tech Hx Hospitalization Yes: 10/09/24 KIDNEY STONE 10/15/24 [...] sips of water?: Yes PONV PONV - environmental services floor tech: PONV - environmental services floor tech Female No 10/15/24 10:22 HX of Motion [...] 10/23/24 06:29 Respiratory Assessment Respiratory Assessment - environmental services floor tech: Respiratory Tract Infection Hx - environmental services floor tech Hx Respiratory Tract Infection No: COUGH 10/15/24 10:22 Any additional information?: Yes Hx Respiratory Tract Infection: No STOP Sleep Apnea STOP Sleep Apnea - environmental services floor tech: STOP Sleep Apnea - environmental services floor tech Hx Hypertension Yes: CONTROLLED WITH MED 10/15/24 [...] Tobacco Use History Tobacco Use History - environmental services floor tech: Tobacco Use History - environmental services floor tech Tobacco Use Non-smoker 03/02/21 15:59 Smoking Status Never smoker 10/15/24 10:22 Hx Tobacco Use No 10/15/24 10:22 Years Smoking Packs Smoked per Day Smoking Cessation Date was within the last 15 years Hx Smoking Cessation Date Hx Smoking Cessation Counseling Hematologic Medial History Hematologic Hx - environmental services floor tech: 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 Hx of Blood Transfusion No 10/15/24 10:22 [...] confused, unrespo /Reproduction History /Reproductive History - environmental services floor tech: /Reproductive Hx- environmental services floor tech Hx Now No 10/15/24 10:22 Gestational Age [...] Medical History Anxiety Dietary restriction Lives in snf Arthritis Back pain Non-smoker Shortness of breath [...] oil 340 3 ea PO DAILY 9 10/22/24 History mg-1,000 mg capsule (Fish Oil) [...] History mg-400 unit-5,000 unit/gram top oint (Neosporin (sic-prw-nbozq)) oxcarbazepine 600 mg tablet 600 mg PO [...] MD Cosigner Signature: Date CC: ~ Signed [facility]06-12-2025 Evaluation + Plan note* Assessment & Plan Note - Ramiro Rosa MD - 10/15/2024 12:38 PM EDTAssociated Problem(s): Recurrent major depressive disorder, in full remission (HCC) Remission, continue Trileptal 600 mg and Seroquel 100 mg daily and clonazepam 0.25 mg 3 times a day [id number] Miscellaneous Notes* Assessment & Plan Note - [...] mg, losartan 100 mg, documented in this encounterSMercy Memorial [id number] Evaluation + Plan note* Assessment & Plan Note - Ramiro Rosa MD - 10/15/2024 12:37 PM EDT Associated Problem(s): Hyperlipidemia LDL goal <100 Controlled, continue atorvastatin 40 mg daily and fenofibrate 145 mg daily [facility] [id number] Evaluation + Plan note* Assessment & Plan Note - Ramiro Rosa MD - 10/15/2024 12:37 PM EDTAssociated Problem(s): Calculus of kidney Currently has a stent in place is waiting for surgery to break up the stone. Follow-up with urologyas scheduled. [facility] [id number] Evaluation + Plan note* Assessment & Plan Note - Ramiro Rosa MD - 10/15/2024 12:37 PM EDTAssociated Problem(s): Essential hypertension Controlled, continue clonidine 0.2 mg, losartan 100 mg, [facility] [id number] History of Present illness Narrative* Ramiro Rosa [...] Weight: 190 lb (86.2 kg) Height: 5' 5" (1.651 m) Physical Exam Vitals and nursing [...] MD 10/15/2024 12:39 PM documented in this [facility]06-06-2025 Consult note [facility] Medical Records Department [address] [place] [address] Pre-Anesthesia Evaluation 10/09/24 1214 MR#: [id number] Acct: [id number] Name: CHAN BURCIAGA Rep #:[id number] : 1980 43 From: Sandro Julian MD PCP: Dr. Ramiro Rosa MD Status:ADM IN Y Race: C Location: [place] [address] ASA Classification* ASA Classification ASA Classification: 3 [...] stent placement. 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: Anesthesia History - environmental services floor tech Hx Hospitalization No 12/16/23 15:36 Any Problems [...] take am of surgery PONV PONV - environmental services floor tech: PONV - environmental services floor tech Female HX of Motion Sickness HX of N/V After Surgery Non-Smoker Duration of Surgery greater than 60 minutes Number of Risk Factors PONV Score Height & Weight Height & Weight: Anesthesia: Height & Weight Height 5 ft 4.96 in 10/09/24 10:19 Weight: 86 kg 10/09/24 10:19 Body Mass Index (BMI) 31.6 10/09/24 10:19 Respiratory Assessment Respiratory Assessment - environmental services floor tech: Respiratory Tract Infection Hx - environmental services floor tech Hx Respiratory Tract Infection No 12/16/23 15:36 STOP Sleep Apnea STOP Sleep Apnea - environmental services floor tech: STOP Sleep Apnea - environmental services floor tech Hx Hypertension Yes: CONTROLLED WITH MED 10/08/24 [...] Tobacco Use History Tobacco Use History - environmental services floor tech: Tobacco Use History - environmental services floor tech Tobacco Use Non-smoker 03/02/21 15:59 Smoking Status Never smoker 10/08/24 21:22 Hx Tobacco Use No 10/08/24 21:22 Years Smoking Packs Smoked per Day Smoking Cessation Date was within the last 15 years Hx Smoking Cessation Date Hx Smoking Cessation Counseling Hematologic Medial History Hematologic Hx - environmental services floor tech: 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 Specify any problems Hx of Preganancy in last 3 N/A 10/08/24 21:22 Months Nurse Filling Out Transfusion [id number] 10/08/24 21:22 & Questions: Date: 10/08/24 10/08/24 21:22 Time: 21:10/08/24 21:22 Patient unable to answer at this time (ie. confused, unrespo /Reproduction History /Reproductive History - environmental services floor tech: /Reproductive Hx- environmental services floor tech Hx Now Gestational Age (in weeks): EDC: [...] 2 spray 10/09/24 10:00 Fluticasone 0.05% 1 [place] Nasal.Sry NASAL DAILY VIDHI Guaifenesin 20 ml 10/08/24 21:21 10/09/24 03:46 Guaifenesin 10 Ml Udc (200mg/10ml) PO 20 ml Q4H PRN PRN Administration COUGH Hydralazine HCl 10 mg 10/08/24 21:21 Hydralazine 20 Mg/Ml Vial IV Q4H PRN PRN SBP > 160 Protocol Sodium Chloride 250 mls @ 15 mls/hr 10/08/24 21:42 IV .[id number] PRN Saline Flush Sodium Chloride 250 mls @ 15 mls/hr 10/08/24 21:42 IV .[id number] PRN Additional IVPB Infusion Cefazolin Sodium 2 gm/ Sodium 110 mls @ 150 mls/hr 10/09/24 12:04 Chloride IV 10/09/24 12:47 X1 ONE Ketorolac Tromethamine 15 mg 10/08/24 21:21 Ketorolac 15 Mg/Ml Vial IV 10/13/24 21:21 Q6H PRN PRN Pain Score 1-10 Lactic Acid 1 applic 10/09/24 10:00 Ammonium Lactate 225 Gm Bottle TOPICAL DAILY [facility] Loratadine 10 mg 10/09/24 10:00 Loratadine 10 Mg Tablet PO DAILY [facility] Losartan Potassium 100 mg 10/09/24 10:00 Losartan Potassium 100 Mg Tablet PO DAILY [facility] Protocol Melatonin 3 mg 10/08/24 21:21 Melatonin [...] 16:00 Quetiapine 100 Mg Tablet PO 1600 [facility] Quetiapine Fumarate 50 mg 10/09/24 16:00 Quetiapine 25 Mg Tablet PO 1600 [facility] Senna/Docusate Sodium 2 tablet 10/08/24 21:21 Senna/Docusate Sodium 1 Tablet PO BID PRN PRN Constipation Sodium Chloride 10 - 40 ml 10/08/24 21:42 10/09/24 03:45 0.9% Saline Lock 10 Ml Syringe IV 10 ml UD PRN Administration SALINE FLUSH [facility] Medical History Lives in snf Arthritis Back pain Non-smoker Shortness of breath [...] History mg-400 unit-5,000 unit/gram top oint (Neosporin (kqt-tqx-zbfhl)) oxcarbazepine 600 mg tablet 600 mg PO [...] MD Cosigner Signature: Date CC: ~ Signed [facility]06-06-2025 Consult note [facility] Medical Records Department [address] [place] [address] Anesthesia Postop Eval II 10/09/24 1338 MR#: [id number] Acct: [id number] Name: CHAN BURCIAGA Rep #:[id number] : 1980 43 From: Sandro Julian MD PCP: Dr. Ramiro Rosa MD Status:ADM IN Y Race: C Location: [facility] -1 Anesthesia Postop Eval I Sum Postop Eval Completion status Anesthesia document: Postop Eval 1 completed: Yes Anesthesia Postop Eval I Summary Anesthesia Postop Eval I Summary: Anesthesia Postop Eval I: Assessment Summary Airway patent Yes 10/09/24 13:03 RESIDENT IN DIAGNOSTIC RADIOLOGY.SOBR Spontaneous unlabored Yes 10/09/24 13:03 RESIDENT IN DIAGNOSTIC RADIOLOGY.SOBR respirations Mental status Awake,Calm 10/09/24 13:03 RESIDENT IN DIAGNOSTIC RADIOLOGY.SOBR nausea No 10/09/24 13:03 RESIDENT IN DIAGNOSTIC RADIOLOGY.SOBR Vomiting No 10/09/24 13:03 RESIDENT IN DIAGNOSTIC RADIOLOGY.SOBR Anesthesia Postop Eval I: Fluid Summary Crystalloid volume administer 500 10/09/24 13:03 RESIDENT IN DIAGNOSTIC RADIOLOGY.SOBR (ml) Colloids volume administered ( ml) Blood Product volume administered (ml) Total IV fluid infused 500 10/09/24 13:03 RESIDENT IN DIAGNOSTIC RADIOLOGY.SOBR Anesthesia Postop Eval I: Summary Notes Anesthesia Complication No 10/09/24 13:03 RESIDENT IN DIAGNOSTIC RADIOLOGY.SOBR Anesthesia Complication Comment: Post-operative progress note Anesthesia: Postop Eval II Evaluation Mental status: Awake Pain Level: 0 nausea: No Vomiting: No 10/09/24 1338 > Date _ Sandro Regalado Signature: Date CC: ~ Signed [facility]06-06-2025 Discharge summary [facility] Medical Records Department [address] [place] [address] Discharge Summary 10/09/24 1608 MR#: [id number] Acct: [id number] Name: CHAN BURCIAGA Rep #:[id number] : 1980 43 From: Austin avalos MD PCP: Dr. 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 w/ PMHx: CKD stage II per GFR trending, HTN, HLD, Anxiety and Depression/Mood disorder, Obesity who presents to the [facility] ED on 10/08/24 with history [...] after morphine but discussion with patient and snf staff he rates his discomfort previously potentially [...] ureteral stone?43-year-old male who resides in a snf secondary to intellectual debilities presents to the [...] % (Auto) 68.7, Lymph % (Auto) 19.2, Attala% (Auto) 8.0, Eos % (Auto) 2.9, Baso [...] Clarity Cloudy, Urine pH 7.0, Ur Specific Rarden 1.010, Urine Protein 30 H, Urine Glucose [...] % (Auto) 53.3, Lymph % (Auto) 31.8, Attala% (Auto) 8.4, Eos % (Auto) 5.5 H, [...] onto the urinary bladder wall. Reading Location: [facility] D/C Instructions Discharge Diet: Low fat [...] risk with narcotics therefore I do recommend aynp-wsm-bktslno stool softeners while taking narcotics. Discharge Orders/Prescriptions [...] mg tablet 600 mg PO BID Neosporin (huw-xmr-faxma) 3.5mg-400 unit- 5,000 unit/gram ointment 1 applic [...] Self Care Charges/Coding Visit Charges Inpatient E&M: 36814 Disch Hosp >30min 10/09/24 1615 Cosigner Signature (if applicable): CC: Dr. Ramiro Rosa MD; Dr. Austin Mares MD~ Signed [facility]06-06-2025 [facility] Medical Records Department [address] [place] [address] Discharge Summary 10/09/24 1608 MR#: [id number] Acct: [id number] Name: MARTIR BURCIAGAN Rep #: [id number] : 1980 43 From: Austin Mares MD PCP: Dr. 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 w/ PMHx: CKD stage II per GFR trending, HTN, HLD, Anxiety and Depression/Mood disorder, Obesity who presents to the [facility] ED on 10/08/24 with history [...] after morphine but discussion with patient and snf staff he rates his discomfort previously potentially [...] ureteral stone???43-year-old male who resides in a snf secondary to intellectual debilities presents to the [...] from an infectious standpoin (more content not included)...[facility] 10-09-2024 Discharge summary [facility] Medical Records Department [address] [facility] [place] [address] Instructions for Home/Discharge Instructions 10/09/24 1545 MR#: [id number] Acct: [id number] Name: CHAN BURCIAGA Rep #:[id number] : 1980 43 From: Austin avalos MD [...] risk with narcotics therefore I do recommend nntj-mbn-ykfvdyz stool softeners while taking narcotics. Discharge Orders/Prescriptions [...] mg tablet 600 mg PO BID Neosporin (avx-tyj-xnxbw) 3.5mg-400 unit- 5,000 unit/gram ointment 1 applic [...] MD; Dr. Salvador Rush MD ~ Signed [facility]06-06-2025 Consult note Author Sandro Julian [facility] Note Date/Time October 09, 2024 4:25p [facility] Medical Records Department [address] [place] [address] Anesthesia Postop Eval II 10/09/24 1338 MR#: [id number] Acct: [id number] Name: CHAN BURCIAGA Rep #:[id number] : 1980 43 From: Sandro Julian MD PCP: Dr. Ramiro Rosa MD Status:ADM IN Y Race: C Location: MS3 MS308 -1 Anesthesia Postop Eval I Sum Postop Eval Completion status Anesthesia document: Postop Eval 1 completed: Yes Anesthesia Postop Eval I Summary Anesthesia Postop Eval I Summary: Anesthesia Postop Eval I: Assessment Summary Airway patent Yes 10/09/24 13:03 RESIDENT IN DIAGNOSTIC RADIOLOGY.SOBR Spontaneous unlabored Yes 10/09/24 13:03 RESIDENT IN DIAGNOSTIC RADIOLOGY.SOBR respirations Mental status Awake,Calm 10/09/24 13:03 RESIDENT IN DIAGNOSTIC RADIOLOGY.SOBR nausea No 10/09/24 13:03 RESIDENT IN DIAGNOSTIC RADIOLOGY.SOBR Vomiting No 10/09/24 13:03 RESIDENT IN DIAGNOSTIC RADIOLOGY.SOBR Anesthesia Postop Eval I: Fluid Summary Crystalloid volume administer 500 10/09/24 13:03 RESIDENT IN DIAGNOSTIC RADIOLOGY.SOBR (ml) Colloids volume administered ( ml) Blood Product volume administered (ml) Total IV fluid infused 500 10/09/24 13:03 RESIDENT IN DIAGNOSTIC RADIOLOGY.SOBR Anesthesia Postop Eval I: Summary Notes Anesthesia Complication No 10/09/24 13:03 RESIDENT IN DIAGNOSTIC RADIOLOGY.SOBR Anesthesia Complication Comment: Post-operative progress note Anesthesia: Postop Eval II Evaluation Mental status: Awake Pain Level: 0 nausea: No Vomiting: No 10/09/24 1338 <Electronically signed by Sandro Julian MD > Date _ Sandro Peguero Signature: Date CC: ~ Signed [facility] Work Phone: 1(326) 306-576406-06-2025 Consult note Author Jeevan Madden [facility] Note Date/Time October 09, 2024 1:03p m [facility] Medical Records Department [address] [place] [address] Anesthesia Postop Eval I 10/09/24 1302 MR#: [id number] Acct: [id number] Name: CHAN BURCIAGA Rep #:[id number] : 1980 43 From: Jeevan LUNDBERG PCP: Dr. Ramiro Rosa MD Status:ADM IN Y Race: C Location: [place] [address] - Anesthesia: Postop Eval I Current Vital Signs [...] CRNA Cosigner Signature: Date CC: ~ Signed [facility] Work Phone: 1(118) 778-874206-06-2025 Consult note Author Sandro jaimie [facility] Note Date/Time October 09, 2024 4:25p [facility] Medical Records Department [address] [address] Pre-Anesthesia Evaluation 10/09/24 1214 MR#: [id number] Acct: [id number] Name: CHAN BURCIAGA Rep #:[id number] : 1980 43 From: Sandro Julian MD PCP: Dr. Ramiro Rosa MD Status:ADM IN Y Race: C [place] [facility] MS308 -1 ASA Classification* ASA Classification ASA [...] stent placement. 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: Anesthesia History - environmental services floor tech Hx Hospitalization No 12/16/23 15:36 Any Problems [...] take am of surgery PONV PONV - environmental services floor tech: PONV - environmental services floor tech Female HX of Motion Sickness HX of N/V After Surgery Non-Smoker Duration of Surgery greater than 60 minutes Number of Risk Factors PONV Score Height & Weight Height & Weight: Anesthesia: Height & Weight Height 5 ft 4.96 in 10/09/24 10:19 Weight: 86 kg 10/09/24 10:19 Body Mass Index (BMI) 31.6 10/09/24 10:19 Respiratory Assessment Respiratory Assessment - environmental services floor tech: Respiratory Tract Infection Hx - environmental services floor tech Hx Respiratory Tract Infection No 12/16/23 15:36 STOP Sleep Apnea STOP Sleep Apnea - environmental services floor tech: STOP Sleep Apnea - environmental services floor tech Hx Hypertension Yes: CONTROLLED WITH MED 10/08/24 [...] Tobacco Use History Tobacco Use History - environmental services floor tech: Tobacco Use History - environmental services floor tech Tobacco Use Non-smoker 10/28/21 15:59 Smoking Status Never smoker 10/08/24 21:22 Hx Tobacco Use No 10/08/24 21:22 Years Smoking Packs Smoked per Day Smoking Cessation Date was within the last 15 years Hx Smoking Cessation Date Hx Smoking Cessation Counseling Hematologic Medial History Hematologic Hx - environmental services 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: 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 Hx of Blood Transfusion No 10/08/24 21:22 [...] confused, unrespo /Reproduction History /Reproductive History - environmental services floor tech: /Reproductive Hx- environmental services floor tech Hx Now Gestational Age (in weeks): EDC: [...] 10:00 Fenofibrate 145 Mg Tablet PO DAILY [facility] Fluticasone Propionate 2 spray 10/09/24 10:00 Fluticasone 0.05% 1 [place] Nasal.Sry NASAL DAILY [facility] Guaifenesin 20 ml 10/08/24 21:21 10/09/24 03:46 Guaifenesin 10 Ml Udc (200mg/10ml) PO 20 ml Q4H PRN PRN Administration COUGH Hydralazine HCl 10 mg 10/08/24 21:21 Hydralazine 20 Mg/Ml Vial IV Q4H PRN PRN SBP > 160 Protocol Sodium Chloride 250 mls @ 15 mls/hr 10/08/24 21:42 IV .[id number] PRN Saline Flush Sodium Chloride 250 mls @ 15 mls/hr 10/08/24 21:42 IV .[id number] PRN Additional IVPB Infusion Cefazolin Sodium 2 gm/ Sodium 110 mls @ 150 mls/hr 10/09/24 12:04 Chloride IV 10/09/24 12:47 X1 ONE Ketorolac Tromethamine 15 mg 10/08/24 21:21 Ketorolac 15 Mg/Ml Vial IV 10/13/24 21:21 Q6H PRN PRN Pain Score 1-10 Lactic Acid 1 applic 10/09/24 10:00 Ammonium Lactate 225 Gm Bottle TOPICAL DAILY [facility] Loratadine 10 mg 10/09/24 10:00 Loratadine 10 Mg Tablet PO DAILY [facility] Losartan Potassium 100 mg 10/09/24 10:00 Losartan Potassium 100 Mg Tablet PO DAILY [facility] Protocol Melatonin 3 mg 10/08/24 21:21 Melatonin [...] 10 ml UD PRN Administration SALINE FLUSH [facility] Medical History Lives in snf Arthritis Back pain Non-smoker Shortness of breath [...] History mg-400 unit-5,000 unit/gram top oint (Neosporin (poi-kgy-ryqpj)) oxcarbazepine 600 mg tablet 600 mg PO [...] Sandro Regalado Signature: Date CC: ~ Signed [facility] Work Phone: 1(776) 996-627306-06-2025 Consult note Author Salvador Rush [facility] Note Date/Time October 09, 2024 12:10 pm [facility] Medical Records Department [address] [place] [address] Consultation - Urology 10/09/24 1139 MR#: [id number] Acct: [id number] Name: CHAN BURCIAGA Rep #:[id number] : 1980 43 From: Salvador Rush MD PCP: Dr. Ramiro Rosa MD Status:ADM IN Location[place] [facility] KQ378-1 HPI Consult Data Date of Consult: 10/09/24 [...] findings a separate setting once everything stable. [facility] Medical History Lives in snf Arthritis Back pain Non-smoker Shortness of breath [...] History mg-400 unit-5,000 unit/gram top oint (Neosporin (olc-sbs-rggiq)) oxcarbazepine 600 mg tablet 600 mg PO [...] % (Auto) 68.7, Lymph % (Auto) 19.2, Attala% (Auto) 8.0, Eos % (Auto) 2.9, Baso [...] Clarity Cloudy, Urine pH 7.0, Ur Specific Rarden 1.010, Urine Protein 30 H, Urine Glucose [...] % (Auto) 53.3, Lymph % (Auto) 31.8, Attala% (Auto) 8.4, Eos % (Auto) 5.5 H, [...] onto the urinary bladder wall. Reading Location: [facility] 10/09/24 1140 <Electronically signed by Salvador [...] cc: Dr. Ramiro Rosa MD ~* Signed [facility] Work Phone: 1(810) 383-522606-06-2025 Consult note [facility] Medical Records Department [address] [place] [address] Anesthesia Postop Eval I 10/09/24 1302 MR#: [id number] Acct: [id number] Name: MALKACHAN Rep #:[id number] : 1980 43 From: Jeevan LUNDBERG PCP: Dr. Ramiro Rosa MD Status:ADM IN Y Race: C Location: [place] [address] Anesthesia: Postop Eval I Current Vital Signs [...] Postop Eval 1 completed: Yes 10/09/24 1303 RESIDENT IN DIAGNOSTIC RADIOLOGY> Date _ Jeevan Madden RESIDENT IN DIAGNOSTIC RADIOLOGY Cosigner Signature: Date CC: ~ Signed [facility]06-06-2025 Procedure note [facility] Medical Records Department [address] [facility] [place] [address] Operative Report 10/09/24 1246 MR#: [id number] Acct: [id number] Name: BURCIAGACHAN Rep #:[id number] : 1980 43 From: Salvador Rush MD PCP: Dr. Ramiro Rosa MD Status:ADM IN Location: MS3 CF961-9 Operative Report (Standard) Operative Information Date of Procedure: 10/09/24 Pre-Operative Diagnosis: Left obstructing kidney stone Post-Operative Diagnosis: Same Surgery/Procedure Performed: Cystoscopy and left stent placement employment representative: No Type of Anesthesia: General RN Documented [...] One of the bladder with a 21 Tongan rigid cystourethroscope found that he had a [...] Rosa MD; Dr. Salvador Rush MD~ Signed [facility]06-06-2025 Consult note [facility] Medical Records Department [address] [place] [address] Consultation - Urology 10/09/24 1139 MR#: [id number] Acct: [id number] Name: CHAN BURCIAGA Rep #:[id number] : 1980 43 From: Salvador Rush MD PCP: Dr. Ramiro Rosa MD Status:ADM IN Location: MS3 OJ354-3 HPI Consult Data Date of Consult: 10/09/24 [...] findings a separate setting once everything stable. [facility] Medical History Lives in snf Arthritis Back pain Non-smoker Shortness of breath [...] History mg-400 unit-5,000 unit/gram top oint (Neosporin (fjd-thv-gerkv)) oxcarbazepine 600 mg tablet 600 mg PO [...] % (Auto) 68.7, Lymph % (Auto) 19.2, Attala% (Auto) 8.0, Eos % (Auto) 2.9, Baso [...] Clarity Cloudy, Urine pH 7.0, Ur Specific Rarden 1.010, Urine Protein 30 H, Urine Glucose [...] % (Auto) 53.3, Lymph % (Auto) 31.8, Attala% (Auto) 8.4, Eos % (Auto) 5.5 H, [...] onto the urinary bladder wall. Reading Location: [facility] 10/09/24 1140 Cosigner Signature (if applicable): [...] cc: Dr. Ramiro Rosa MD ~* Signed [facility]06-06-2025 Discharge summary Author Brad Goins [facility] Note Date/Time October 08, 2024 10:07 pm [facility] Medical Records Department [address] [place] [address] Emergency Department Summary 10/08/24 MR#: [id number] Acct: [id number] Name: CHAN BURCIAGA Rep #:[id number] : 1980 43 From: Brad Goins MD PCP: Dr. Ramiro Rosa MD Status:ADM IN Location[place] [facility] RI067-8 HPI HPI - GI History of Present [...] or Hematuria Narrative Narrative: 43-year-old male from snf. History of hypertension kidney stones. Said the [...] Prior similar symptoms: No Recent [facility] Medical History Lives in snf Arthritis Back pain Non-smoker Shortness of breath [...] History mg-400 unit-5,000 unit/gram top oint (Neosporin (uzc-uvj-esunj)) oxcarbazepine 600 mg tablet 600 mg PO [...] % (Auto) 68.7 Lymph % (Auto) 19.2 Attala % (Auto) 8.0 Eos % (Auto) 2.9 [...] Clarity Cloudy Urine pH 7.0 Ur Specific Rarden 1.010 Urine Protein 30 H Urine Glucose [...] onto the urinary bladder wall. Reading Location: [facility] Discharge Plan Triage Chief Complaint: Abd [...] mg tablet 600 mg PO BID Neosporin (avn-per-vkbgm) 3.5mg-400 unit- 5,000 unit/gram ointment 1 applic [...] MD [Primary Care Provider] - Print Language: Afghan What to do if you have Problems For any increased pain, shortness of breath, bleeding, nausea or vomiting, chestpain, or any unexpected problems, contact your Primary Care Provider. Call [facility] ([phone]) or report to the closest Emergency Room. Call 911 if necessary. 10/08/242206 <Electronically signed by Brad Goins MD> Cosigner Signature (if applicable): CC: Dr. Ramiro Rosa MD ~ Signed [facility] Work Phone: [phone]) [phone] History and physical note Author Yamileth Aguirre [facility] Note Date/Time October 08, 2024 8:46p m [facility] Medical Records Department [address] [place] [address] H&P Exam - Hospitalist 10/08/242001 MR#: [id number] Acct: [id number] Name: CHAN BURCIAGA Rep #:[id number] : 1980 43 From: Yamileth Aguirre MD PCP: Dr. Ramiro Rosa MD Status:ADM IN Location: OR3 EO122-9 HPI - General General Date of Admission: 10/08/24 Date of Service: 10/08/24 Chief Complaint: Abdominal pain, flank pain. 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 EDdiscussed case with urology. [facility] Medical History Lives in snf Arthritis Back pain Non-smoker Shortness of breath [...] History mg-400 unit-5,000 unit/gram top oint (Neosporin (qrk-juw-rklnj)) oxcarbazepine 600 mg tablet 600 mg PO [...] alert, oriented to self, place, recent vents, snf staff present, remains cooperative, seated upright in [...] currently is baseline intact per discussion with snf staff, pupils equally reactive to light and [...] % (Auto) 68.7, Lymph % (Auto) 19.2, Attala% (Auto) 8.0, Eos % (Auto) 2.9, Baso [...] Clarity Cloudy, Urine pH 7.0, Ur Specific Rarden 1.010, Urine Protein 30 H, Urine Glucose [...] onto the urinary bladder wall. Reading Location: [id number] Assessment & Plan Assessment/Plan (1) Kidney stone on left side: PLAN: Plan The patient is a 43 y/o M w/ intellectual debilities living in a snf w/ PMHx: CKD stage II per GFR trending, HTN, HLD, Anxiety and Depression/Mood disorder, Obesity who presents to the [facility] ED on 10/08/24 with history [...] STATUS: Full Code per discussion with the snf staff. Charges/Coding Visit Charges Inpatient E&M: 66018 Init Hosp L3 10/08/242045 <Electronically signed by Yamileth Aguirre MD> Cosigner Signature (if applicable): CC: Dr. Yamileth Aguirre MD; Dr. Ramiro Rosa MD~ Signed [facility] Work Phone: 1(754) 930-835606-05-2025 Discharge summary [facility] Medical Records Department [address] [place] [address] Emergency Department Summary 10/08/24 MR#: [id number] Acct: [id number] Name: CHAN BURCIAGA Rep #:[id number] : 1980 43 From: Brad Goins MD PCP: Dr. Ramiro Rosa MD Status:ADM IN Location: OR3 YI119-2 HPI HPI - GI History of Present [...] or Hematuria Narrative Narrative: 43-year-old male from snf. History of hypertension kidney stones. Said the [...] Prior similar symptoms: No Recent Illness/Hospitalization: No [facility] Medical History Lives in snf Arthritis Back pain Non-smoker Shortness of breath [...] History mg-400 unit-5,000 unit/gram top oint (Neosporin (kyn-bmb-rlcqa)) oxcarbazepine 600 mg tablet 600 mg PO [...] % (Auto) 68.7 Lymph % (Auto) 19.2 Attala % (Auto) 8.0 Eos % (Auto) 2.9 [...] Clarity Cloudy Urine pH 7.0 Ur Specific Rarden 1.010 Urine Protein 30 H Urine Glucose [...] onto the urinary bladder wall. Reading Location: [facility] Discharge Plan Triage Chief Complaint: Abd [...] mg tablet 600 mg PO BID Neosporin (vlp-lxa-bljwh) 3.5mg-400 unit- 5,000 unit/gram ointment 1 applic [...] MD [Primary Care Provider] - Print Language: Afghan What to do if you have Problems For any increased pain, shortness of breath, bleeding, nausea or vomiting, chestpain, or any unexpected problems, contact your Primary Care Provider. Call [facility] ([phone]) or report tothe closest Emergency Room. Call 911 if necessary. 10/08/242206 Cosigner Signature (if applicable): CC: Dr. Ramiro Rosa MD ~ Signed [facility]06-05-2025 Evaluation note* Diagnosis Onset Date Resolution Status Admit Date Abdominal pain acute October 08, 2024 8:03pm History of hypertension acute J 2024 8:03pm Intractable abdominal pain acute October 08, 2024 8:03pm Kidney stone on left side acute October 08, 2024 8:03pm [facility] Work Phone: 1(425) 300-755406-05-2025 History and physical note [facility] Medical Records Department [address] [place] [address] H&P Exam - Hospitalist 10/08/242001 MR#: [id number] Acct: [id number] Name: CHAN BURCIAGA Rep #:[id number] : 1980 43 From: Yamileth Aguirre MD PCP: Dr. Ramiro Rosa MD Status:ADM IN Location[place] [facility] [place] GC742-0 HPI - General General Date of Admission: 10/08/24 Date of Service: 10/08/24 Chief Complaint: Abdominal pain, flank pain. 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 EDdiscussed case with urology. [facility] Medical History Lives in snf Arthritis Back pain Non-smoker Shortness of breath [...] History mg-400 unit-5,000 unit/gram top oint (Neosporin (aby-ugo-akeso)) oxcarbazepine 600 mg tablet 600 mg PO [...] alert, oriented to self, place, recent vents, snf staff present, remains cooperative, seated upright in [...] currently is baseline intact per discussion with snf staff, pupils equally reactive to light andaccommodation, [...] % (Auto) 68.7, Lymph % (Auto) 19.2, Attala% (Auto) 8.0, Eos % (Auto) 2.9, Baso [...] Clarity Cloudy, Urine pH 7.0, Ur Specific Rarden 1.010, Urine Protein 30 H, Urine Glucose [...] onto the urinary bladder wall. Reading Location: [facility] Assessment & Plan Assessment/Plan (1) Kidney stone on left side: PLAN: Plan [facility] patient is a 43 y/o M w/ intellectual debilities living in a snf w/ PMHx: CKD stage II per GFR trending, HTN, HLD, Anxiety and Depression/Mood disorder, Obesity who presents to the [facility] ED on 10/08/24 with history [...] STATUS: Full Code per discussion with the snf staff. Charges/Coding Visit Charges Inpatient E&M: 60801 Init Hosp L3 10/08/242045 Cosigner Signature (if applicable): CC: Dr. Yamileth Aguirre MD; Dr. Ramiro Rosa MD~ Signed [facility]06-05-2025 Radiology Diagnostic study note [facility] Imaging Services [address] [place], [place] [address] Abdomen/Pelvis W IV Cont ONLY MR#: [id number] Acct: [id number] Name: CHAN BURCIAGA Rep #: [id number] : 1980 M 43 From: Silvia Morley MD PCP: Dr. Ramiro Rosa MD Status: REG ER Study:Abdomen/Pelvis W IV Cont ONLY Date of E xam: 10/08/24 Exam# [id number] Ordering Dr: Devin Goins MD PROCEDURE: ABDOMEN/PELVIS [...] onto the urinary bladder wall. Reading Location: [facility] CC: Dr. Ramiro Rosa MD; Dr. Brad Goins MD ~ Medical Records Receptionist: Signed [facility]06-05-2025 NoteHNO ID: [id number] Author: ZACH CARDENAS MD Service: ? Author Type: Physician Type: Progress Notes Filed: 10/08/2024 16:34 Note Text: [facility] Subjective Chan Burciaga is a 43 year [...] He is not ill-appearing. Comments: Accompanied by snf caregiver Eyes: Extraocular Movements: Extraocular movements intact. [...] caregiver will take him. Zach Cardenas MD [facility]06-05-2025 History of Present illness Narrative* Zach Cardenas MD - 10/08/2024 4:27 PM EDT [facility] Subjective Chan Burciaga is a [...] He is not ill-appearing. Comments: Accompanied by snf caregiver Eyes: Extraocular Movements: Extraocular movements intact. [...] Cardenas MD MDM Procedures [facility] Telephone encounter Note * Telephone Encounter - YANNICK Jones CNP - 10/02/2024 12:47 PM EDT Reviewed chart. Refill appropriate. RX sent. [facility] HospitalReattj27-13-1516 Miscellaneous Notes* Telephone Encounter - YANNICK Jones [...] refill. Next appt: 10/15/2024 documented in this encounterSMercy Memorial HospitalCilekd92-49-1656 Telephone encounter Note* Telephone Encounter - Puja White - 10/02/2024 12:18 PM EDT Pharmacy sent over fax requesting refills for a 31 day supply with 11 refills OR 93 day supply with3 refills. I pended a 93 day supply with 1 refill. Next appt: 10/15/2024 [facility] HospitalTjstvs27-49-5457 Telephone encounter Note* Telephone Encounter - Pari Wiley RN - 09/29/2024 2:15 PM EDT Tena nurse with [facility] (' care facility) calling back-given provider's recommendations and verbalizes understanding. [facility]05-27-[facility] Miscellaneous Notes* Telephone Encounter - Pari Wiley RN - 09/29/2024 2:15 PM EDT Tena nurse with [facility] ('s care facility) calling back-given provider's recommendations [...] blood in the urine [facility]25 Telephone encounter Note * Telephone Encounter - Sabrina Dang LPN - 09/28/2024 3:10 PM EDT Left message for patient to return call for results.Sabrina Dang LPN [facility]05-26[facility] Telephone encounter Note* Telephone Encounter - Nicole Starr PA - 09/28/2024 10:04 AM EDT Please let patient know urine culture revealed no UTI. Please follow-up with PCP to ensure resolution of blood in the urine [facility]05-25-2025 NoteHNO ID: [id number] Author: SEAN VERDUZCO APRN.ANIMAL HANDLER Service: ? Author Type: Nurse Practitioner Type: Progress Notes Filed: 09/27/2024 10:14 Note Text: [facility] Subjective Chan Burciaga is a [...] of care. This note was generated using [employer] software. It may contain errors in wording, punctuation, or spelling. Sean Verduzco APRN.SHELBY History and Record Review Clinical information obtained from an independent historian. History obtained from or confirmed by: other (see comments) and parent. External record(s) reviewed: prior outpatient record. Disposition The [facility] was [facility]. [facility] History of Present illness Narrative* Sean Verduzco APRN.SHELBY - 09/27/2024 10:00 AM EDT [facility] Subjective Chan Burciaga is a [...] plan of care. This note was generated using[employer] software. It may contain errors in wording, punctuation, or spelling. Sean Verduzco APRN.ANIMAL HANDLER History and Record Review Clinical information obtained from an independent historian. History obtained from or confirmed by:other (see comments) and parent. External record(s) reviewed: prior outpatient record. Disposition The patient was discharged. Procedures documented [facility]04-17-2025 Telephone encounter Note * Telephone Encounter - Barb Leung MA - 08/20/2024 9:00 AM EDT Prescription Request: Last medication check: 10/24/2023 Last physical exam: 04/20/2024 Next scheduled appointment: 10/15/2024 CSA on file (date): N/A Last urine drug screen: N/A Last date of refill on this medication 05/01/2024 [facility] HospitalSxafgo66-05-7803 Miscellaneous Notes* Telephone Encounter - Barb Leung MA - 08/20/2024 9:00 AM EDT Prescription Request: Last medication check: 10/24/2023 Last physical exam: 04/20/2024 Next scheduled appointment: 10/15/2024 CSA on file (date): N/A Last urine drug screen: N/A Last date of refill on this medication 05/01/[address] [facility]04-07-2025 Telephone encounter Note* Telephone Encounter - Carmella Morrison - 08/10/2024 1:27 PM EDT Error [facility] HospitalWtoaqb32-88-9466 Miscellaneous Notes* Telephone Encounter - Carmella Morrison - 08/10/2024 1:27 PM EDT Error documented in this [facility]03-20-2025 Telephone encounter Note* Telephone Encounter - Geovanna [...] doctor or facility: No Ordering provider: Dr. Roas Date of last office visit: 04.20.2024 Date of next office visit: 10.20.2024 Date of last refill: (see medication tab): 09.27.2023 Updated/Validated preferred pharmacy: Yes Patient instructed to contact the pharmacy prior to picking up the medication: Yes [facility] HospitalKxhvkf30-21-2547 Miscellaneous Notes* Telephone Encounter - Geovanna Rebollar [...] up the medication: Yes documented in this encounterSMercy Memorial HospitalYubght93-79-2082 Telephone encounter Note* Telephone Encounter - Lucila [...] prior to picking up the medication: Yes [facility] HospitalJhoery71-38-4014 Miscellaneous Notes* Telephone Encounter - Lucila Malik [...] up the medication: Yes documented in this [facility]02-18-2025 Telephone encounter Note* Telephone Encounter - Antonella Silva MA - 06/23/2024 10:22 AM EST Prescription Request: Last medication check: 10/24/2023 Last physical exam: 04/20/2024 Next scheduled appointment: 10/20/2024 Last date of refill on this medication: 06/04/23 [facility] HospitalHfytjx41-15-4348 Miscellaneous Notes* Telephone Encounter - Antonella Silva MA - 06/23/2024 10:22 AM EST Prescription Request: Last medication check: 10/24/2023 Last physical exam: 04/20/2024 Next scheduled appointment: 10/20/2024 Last date of refill on this medication: 06/04/[address] [facility]12-30-2024 Telephone encounter Note* Telephone Encounter - YANNICK Jones CNP - 05/04/2024 9:45 AM EST Reviewed chart. Refill appropriate. RX sent. [facility] HospitalEgjneh22-27-3649 Miscellaneous Notes* Telephone Encounter - YANNICK Jones CNP - 05/04/2024 9:45 AM EST Reviewed chart. Refill appropriate. RX sent. * Telephone Encounter - Rizwana Gupta MA - 05/04/2024 9:43 AM EST [place] pharmacy requesting refill for Folic Acid 400mcg for 9 days w/1 refill. Prescription Request: Last medication check: 10/24/2023 Last physical exam: 04/20/2024 Next scheduled appointment: 10/20/2024 Last date of refill on this medication: 12/03/2023 documented in this encounterSMercy Memorial HospitalYviocs67-91-1062 Telephone encounter Note* Telephone Encounter - Rizwana Gupta MA - 05/04/2024 9:43 AM EST [place] pharmacy requesting refill for Folic Acid 400mcg for 9 days w/1 refill. Prescription Request: Last medication check: 10/24/2023 Last physical exam: 04/20/2024 Next scheduled appointment: 10/20/2024 Last date of refill on this medication: 12/03/2023 [facility] HospitalZccrtg80-19-2886 Telephone encounter Note* Telephone Encounter - YANNICK Jones CNP - 05/01/2024 11:31 AM EST Reviewed chart. Refill appropriate. RX sent. [facility] HospitalYbdzha97-86-1569 Miscellaneous Notes* Telephone Encounter - YANNICK Jones CNP - 05/01/2024 11:31 AM EST Reviewed chart. Refill appropriate. RX sent. * Telephone Encounter - Lexus Landrum MA - 05/01/2024 10:04 AM EST Prescription Request: Last medication check: 10/24/23 Last physical exam: 04/20/24 Next scheduled appointment: 10/20/24 Last date of refill on this medication 12/03/23 90 day 1 refill documented in this [facility]12-27-2024 Telephone encounter Note* Telephone Encounter - Lexus Landrum MA - 05/01/2024 10:04 AM EST Prescription Request: Last medication check: 10/24/23 Last physical exam: 04/20/24 Next scheduled appointment: 10/20/24 Last date of refill on this medication 12/03/23 90 day 1 refill [place] [id number] Evaluation + Plan note* Assessment & Plan Note - Ramiro Rosa MD - 04/20/2024 12:50 PM ESTAssociated Problem(s): Seasonal allergic rhinitis due to pollen Stable, continue Flonase and Claritin. [place] [id number] Evaluation + Plan note* Assessment & Plan Note - Ramiro Rosa MD - 04/20/2024 12:50 PM ESTAssociated Problem(s): Recurrent major depressive disorder, in full remission (HCC) Stable, managed by psych continue current medications [facility] Phxjxh18-65-8798 Miscellaneous Notes* Assessment & Plan Note - [...] on sleep sleep study documented in this [facility]12-16-2024 Evaluation + Plan note* Assessment & Plan Note - Ramiro Rosa MD - 04/20/2024 12:49 PM EST Associated Problem(s): Intellectual disability Stable, no current problem [place] [id number] Evaluation + Plan note* Assessment & Plan Note - Ramiro Rosa MD - 04/20/2024 12:49 PM ESTAssociated Problem(s): Hyperlipidemia LDL goal <100 controlled, continue a atorvastatin 40 mg daily and fenofibrate 145 mg daily [facility] HospitalTtobaz05-39-1957 Evaluation + Plan note* Assessment & Plan Note - Ramiro Rosa MD - 04/20/2024 12:48 PM ESTAssociated Problem(s): Essential hypertension Can roll, continue clonidine 0.2 mg, doxazosin 2 mg losartan 100 mg [place] [id number] Evaluation + Plan note* Assessment & Plan Note - Ramiro Rosa MD - 04/20/2024 12:48 PM ESTAssociated Problem(s): Loud snoring Stable, no sleep apnea on sleep sleep study [place] [id number] History of Present illness Narrative* Lexus Landrum [...] intellectual disability and he lives in a snf. He has hypertension and his blood pressure [...] lb 12.8 oz (86.5 kg) Height: 5' 5.5" (1.664 m) Physical Exam Vitals and nursing [...] MD 04/20/2024 12:50 PM documented in this encounterSMercy Memorial HospitalNqanwv63-99-8241 Telephone encounter Note* Telephone Encounter - YANNICK Jones CNP - 04/06/2024 2:12 PM EST Reviewed chart. Refill appropriate. RX sent. [facility] HospitalAfjmjn68-96-1612 Miscellaneous Notes* Telephone Encounter - YANNICK Jones CNP - 04/06/2024 2:12 PM EST Reviewed chart. Refill appropriate. RX sent. * Telephone Encounter - Rizwana Gupta MA - 04/06/2024 1:37 PM EST Prescription Request: Last medication check: 10/24/2023 Last physical exam: 04/18/2023 Next scheduled appointment: 04/20/2024 Last date of refill on this medication: 11/12/2023 documented in this encounterSMercy Memorial HospitalFiaeco94-53-6070 Telephone encounter Note* Telephone Encounter - Rizwana Gupta MA - 04/06/2024 1:37 PM EST Prescription Request: Last medication check: 10/24/2023 Last physical exam: 04/18/2023 Next scheduled appointment: 04/20/2024 Last date of refill on this medication: 11/12/2023 [facility] HospitalKolerx54-36-3192 Telephone encounter Note* Telephone Encounter - YANNICK Jones CNP - 02/03/2024 10:05 AM EDT [facility] HospitalAnavkf21-24-8373 Miscellaneous Notes* Telephone Encounter - YANNICK Jones CNP - 02/03/2024 10:05 AM EDT * Telephone Encounter - Rizwana Gupta MA - 02/03/2024 9:28 AM EDT Pharmacy requesting refill. Prescription Request: Last medication check: 10/24/2023 Last physical exam: 04/18/2023 Next scheduled appointment: 04/20/2024 Last date of refill on this medication: 03/29/[address] [facility]09-30-2024 Telephone encounter Note* Telephone Encounter - Rizwana Gupta MA - 02/03/2024 9:28 AM EDT Pharmacy requesting refill. Prescription Request: Last medication check: 10/24/2023 Last physical exam: 04/18/2023 Next scheduled appointment: 04/20/2024 Last date of refill on this medication: 03/29/2023 [facility] HospitalEvkbmn16-93-0939 Telephone encounter Note* Telephone Encounter - Lynn [...] relayed to the patient from encounter: Yes [facility] HospitalBdiwid12-31-9711 Miscellaneous Notes* Telephone Encounter - Lynn Watts [...] patient from encounter: Yes documented in this [facility]08-15-2024 Telephone encounter Note* Telephone Encounter - Lexus Landrum MA - 12/19/2023 7:45 AM EDT Prescription Request: Last medication check: 10/24/23 Last physical exam: 04/18/23 Next scheduled appointment: 04/20/24 Last date of refill on this medication 06/07/23 [address]gemso32-84-1976 Miscellaneous Notes* Telephone Encounter - Lexus Landrum MA - 12/19/2023 7:45 AM EDT Prescription Request: Last medication check: 10/24/23 Last physical exam: 04/18/23 Next scheduled appointment: 04/20/24 Last date of refill on this medication 06/07/[address] [facility]07-30-2024 Telephone encounter Note* Telephone Encounter - YANNICK Jones CNP - 12/03/2023 5:32 PM EDT Reviewed chart. Refill appropriate. RX sent. [facility] HospitalEixhvp58-87-3948 Miscellaneous Notes* Telephone Encounter - YANNICK Jones CNP - 12/03/2023 5:32 PM EDT Reviewed chart. Refill appropriate. RX sent. * Telephone Encounter - Puja White - 12/03/2023 4:40 PM EDT Prescription Request: Last medication check: 10/24/23 Last physical exam: 04/18/23 Next scheduled appointment: 01/09/24 Last date of refill on this medication 06/26/[address] [facility]07-30-2024 Telephone encounter Note* Telephone Encounter - Puja White - 12/03/2023 4:40 PM EDT Prescription Request: Last medication check: 10/24/23 Last physical exam: 04/18/23 Next scheduled appointment: 01/09/24 Last date of refill on this medication 06/26/23 [facility] HospitalLkyjjn38-85-5476 Telephone encounter Note* Telephone Encounter - Lexus Landrum MA - 11/12/2023 7:05 AM EDT Prescription Request: Last medication check: 10/24/23 Last physical exam: 04/18/23 Next scheduled appointment: 04/20/24 Last date of refill on this medication 06/04/23 [facility] HospitalGqnyro71-86-1096 Miscellaneous Notes* Telephone Encounter - Lexus Landrum MA - 11/12/2023 7:05 AM EDT Prescription Request: Last medication check: 10/24/23 Last physical exam: 04/18/23 Next scheduled appointment: 04/20/24 Last date of refill on this medication 06/04/[address] [facility]06-20-2024 Evaluation + Plan note* Assessment & Plan Note - Ramiro Rosa MD - 10/24/2023 11:48 AM EDT Associated Problem(s): Seasonal allergic rhinitis due to pollen Stable, continue Claritin and Flonase. [facility] HospitalKqqoue57-08-6599 Evaluation + Plan note* Assessment & Plan Note - Ramiro Rosa MD - 10/24/2023 11:48 AM EDTAssociated Problem(s): Recurrent major depressive disorder, in full remission (HCC) Remission, continue Seroquel 150 mg nightly [facility] HospitalJpvfzc09-70-2908 Miscellaneous Notes* Assessment & Plan Note - [...] for home sleep study. documented in this encounterSMercy Memorial HospitalQuvmcg73-69-8859 Evaluation + Plan note* Assessment & Plan Note - Ramiro Rosa MD - 10/24/2023 11:47 AM EDT Associated Problem(s): Hyperlipidemia LDL goal <100 Controlled, continue atorvastatin 40 mg daily and fenofibrate 100 mg daily [facility] HospitalCorver44-04-7340 Evaluation + Plan note* Assessment & Plan Note - Ramiro Rosa MD - 10/24/2023 11:46 AM EDTAssociated Problem(s): Essential hypertension Controlled, continue doxazosin 2 mg, clonidine 0.2 mg twice a day and losartan 100 mg daily [facility] HospitalWztniz26-29-8824 Evaluation + Plan note* Assessment & Plan Note - Ramiro Rosa MD - 10/24/2023 11:45 AM EDTAssociated Problem(s): Loud snoring Order home sleep study. [facility] HospitalXfghgm67-27-4656 Evaluation + Plan note* Assessment & Plan Note - Ramiro Rosa MD - 10/24/2023 11:45 AM EDTAssociated Problem(s): MILAGROS (obstructive sleep apnea) Witnessed apneic episodes, will schedule patient for home sleep study. [facility] HospitalBvdeuv12-15-4479 History of Present illness Narrative* Lexus Landrum [...] is in full remission seasonalallergies and his pyrotechnic mixer that is with him said they were [...] lb 9.6 oz (83.3 kg) Height: 5' 5.5" (1.664 m) Physical Exam Vitals and nursing [...] MD 10/24/2023 11:50 AM documented in this [facility]05-24-2024 Evaluation + Plan note* Assessment & Plan Note - Ramiro Rosa MD - 09/27/2023 12:24 PM EDT Associated Problem(s): Chronic midline low back pain without sciatica Will refill his nabumetone and he is to take that regularly twice a day for up to 1 to 2 weeks. Rx sent if we need to we will send him back to physical therapy. [facility] HospitalYmrlxs60-90-0959 Miscellaneous Notes* Assessment & Plan Note - Ramiro Rosa MD - 09/27/2023 12:24 PM EDTAssociated Problem(s): Chronic midline low back pain without sciatica Will refill his nabumetone and he is to take that regularly twice a day for up to 1 to 2 weeks. Rx sent if we need to we will send him back to physical therapy. documented in this [facility]05-24-2024 History of Present illness Narrative* Lexus Landrum [...] lb 9.6 oz (81.9 kg) Height: 5' 5.5" (1.664 m) Physical Exam An electronic signature was used to authenticate this note. Ramiro Rosa MD 09/27/2023 12:24 PM documented in this [facility]04-21-2024 Discharge summary Author Milly Andrew [facility] August 25, 2023 9:15pm Note Date/Time August 25, 2023 9:1 5pm [facility] Physical Therapy [facility] [address] [place] [address]. [address] [place] [address] / REHABILITATION SERVICES DISCHARGE SUMMARY MR#: [id number] Acct: [id number] Name: CHAN BURCIAGA Rep #: [id number] : 1980 42 From: Milly Andrew PT, [...] HE IS APPROPRIATE FOR DISCHARGE TO [facility] AT THIS TIME. UPON EXAM TODAY: [...] please feel free to call me at [phone]. Thank you for the referral of thispatient. Sincerely, Milly Andrew, PT, Cert MDT Balance/Gait/Functional tests Balance/Special Test Scores Oswestry Low Back Score: 8 30 Second Chair Rise Test Seconds: 16 Improvement % Improvement: 50 <Electronically signed by Milly Andrew PT, Cert. MDT> 08/25/232114 CC: Dr. Ramiro Rosa MD ~ MERY Signed [facility] Work Phone: [phone]) 939-332803-07-2024 Telephone encounter Note* Telephone Encounter - Puja White - 07/11/2023 8:27 AM EST Prescription Request: Last medication check: 10/18/22 Last physical exam: 04/18/23 Next scheduled appointment: 10/24/23 Last date of refill on this medication 01/08/23 [facility] HospitalZuepsc39-32-0204 Miscellaneous Notes* Telephone Encounter - Puja White - 07/11/2023 8:27 AM EST Prescription Request: Last medication check: 10/18/22 Last physical exam: 04/18/23 Next scheduled appointment: 10/24/23 Last date of refill on this medication 01/08/[address] [facility]02-27-2024 Telephone encounter Note* Telephone Encounter - Puja White - 07/02/2023 12:04 PM EST Prescription Request: Last medication check: 10/18/22 Last physical exam: 04/18/23 Next scheduled appointment: 10/24/23 Last date of refill on this medication 08/08/22 [facility] HospitalSyvoyo14-69-3940 Miscellaneous Notes* Telephone Encounter - Puja White - 07/02/2023 12:04 PM EST Prescription Request: Last medication check: 10/18/22 Last physical exam: 04/18/23 Next scheduled appointment: 10/24/23 Last date of refill on this medication 08/08/[address] [facility]02-02-2024 Telephone encounter Note* Telephone Encounter - Puja White - 06/07/2023 8:01 AM EST Prescription Request: Last medication check: 10/18/22 Last physical exam: 04/18/23 Next scheduled appointment: 10/24/23 Last date of refill on this medication 08/08/22 [facility] HospitalSxduli99-96-9614 Miscellaneous Notes* Telephone Encounter - Puja White - 06/07/2023 8:01 AM EST Prescription Request: Last medication check: 10/18/22 Last physical exam: 04/18/23 Next scheduled appointment: 10/24/23 Last date of refill on this medication 08/08/[address] [facility]12-20-2023 Telephone encounter Note* Telephone Encounter - Antonella Silva MA - 04/24/2023 11:30 AM EST Prescription Request: Last medication check: 10/18/22 Last physical exam: 04/18/23 Next scheduled appointment: 10/24/2023 Last date of refill on this medication: 02/19/22 [facility] HospitalRjhsun53-88-2157 Miscellaneous Notes* Telephone Encounter - Antonella Silva MA - 04/24/2023 11:30 AM EST Prescription Request: Last medication check: 10/18/22 Last physical exam: 04/18/23 Next scheduled appointment: 10/24/2023 Last date of refill on this medication: 02/19/[address] [facility]12-14-2023 Evaluation + Plan note* Assessment & Plan Note - Ramiro Rosa MD - 04/18/2023 10:35 AM EST Associated Problem(s): Chronic midline low back pain without sciatica Continue nabumetone and will start him in physical therapy. [facility] HospitalQbmcgd07-23-9131 Miscellaneous Notes* Assessment & Plan Note - [...] and losartan [address] [facility]12-14-2023 Evaluation + Plan note* Assessment & Plan Note - Ramiro Rosa MD - 04/18/2023 10:34 AM EST Associated Problem(s): Hyperlipidemia LDL goal <100 Controlled, continue atorvastatin 40 mg daily and fenofibrate 145 mg daily [facility] HospitalSylcvr42-22-3044 Evaluation + Plan note* Assessment & Plan Note - Raimro Rosa MD - 04/18/2023 10:34 AM ESTAssociated Problem(s): Intellectual disability Stable, no significant change [facility] HospitalBfjexe54-52-3280 Evaluation + Plan note* Assessment & Plan Note - Ramiro Rosa MD - 04/18/2023 10:33 AM ESTAssociated Problem(s): Recurrent major depressive disorder, in full remission (HCC) Remission, continue Trileptal and Seroquel, these are managed by psych [facility] HospitalXqivha21-68-2217 Evaluation + Plan note* Assessment & Plan Note - Ramiro Rosa MD - 04/18/2023 10:33 AM ESTAssociated Problem(s): Seasonal allergic rhinitis due to pollen Currently stable, continue allergy medicines as needed. [facility] Bidhvu50-16-6934 Evaluation + Plan note* Assessment & Plan Note - Ramiro Rosa MD - 04/18/2023 10:33 AM ESTAssociated Problem(s): Essential hypertension Controlled, continue clonidine 0.2 mg, doxazosin 2 mg and losartan 100 mg [facility] Mrsuya71-78-4098 History of Present illness Narrative* Antonella Silva [...] Healthy male, fill out paperwork for his snf 2. Essential hypertension Assessment & Plan: Controlled, [...] Weight: 187 lb (84.8 kg) Height: 5' 5.5" (1.664 m) Physical Exam Vitals and nursing [...] MD 04/18/2023 10:35 AM documented in this [facility]11-24-2023 Telephone encounter Note* Telephone Encounter - YANNICK Jones CNP - 03/29/2023 11:06 AM EST Reviewed chart. Refill appropriate. RX sent. [facility] HospitalCfpfmn82-10-1495 Miscellaneous Notes* Telephone Encounter - YANNICK Jones CNP - 03/29/2023 11:06 AM EST Reviewed chart. Refill appropriate. RX sent. * Telephone Encounter - Antonella Silva MA - 03/29/2023 11:04 AM EST Prescription Request: Last medication check: 10/18/22 Last physical exam: 04/19/22 Next scheduled appointment: 04/18/23 Last date of refill on this medication 8.4.23 documented in this [place] [id number] Telephone encounter Note* Telephone Encounter - Antonella Silva MA - 03/29/2023 11:04 AM EST Prescription Request: Last medication check: 10/18/22 Last physical exam: 04/19/22 Next scheduled appointment: 04/18/23 Last date of refill on this medication 8.4.23 [facility] HospitalWtiksr57-33-7764 Telephone encounter Note* Telephone Encounter - Ramiro Rosa MD - 02/18/2023 4:11 PM EDT Okay, thank you [facility] HospitalWrhkol23-71-5403 Miscellaneous Notes* Telephone Encounter - Ramiro Rosa [...] are no appointments available this week that [facility] nurse can schedule. Offered first available which is 02-25-23. Declined stating that pt has an appointment on that day with his foot doctor. Asking if there is anyway for him to be seen this week. R: TE sent to the office for review. Please contact Iesha at [phone] if able to be seen sooner or with further interventions. Advised to keep covered with antibiotic ointment. Ice if painful.Understands care advice. Instructed to call back with new or worsening symptoms. Reason for Disposition Toenail is completely torn off Protocols used: Toe Mftvho-VEEUL-WA documented in this [facility]2023 Telephone encounter Note* Telephone Encounter - Antonella Silva MA - 02/18/2023 3:46 PM EDT Notified, states he went to urgent care today but will keep appt on 02/25/23 with the foot doctor as well. [facility] HospitalMdiboq46-43-0288 Telephone encounter Note* Telephone Encounter - Ramiro Rosa MD - 02/18/2023 3:45 PM EDT If he has an appointment on the with the foot doctor he should keep that. [facility] HospitalDjsris39-47-9481 History of Present illness Narrative* Yulia Lujan APRN.ANIMAL HANDLER - 02/18/2023 3:00 PM EDT This note was created using Zachary Prellriter. Subjective Chan Burciaga is a 42 year old male. 42 year old male with PMH mild ID, impulse control, NOS, mycotic toenails, hyperlipidemia, and organic brain delusional personality disorder presents for complaints of toe pain. Acute onset 0130 today He ripped his toenail off, citing that he has a habit of doing same. States "bored and nothing to do" Accompanied by staff of [place], where patient resides, citing he has done similar in past. He has a clothing consultant, and appt made for next week. Wanted to get him checked out Staff applied topical ATB cream No fever or chills No active bleeding Pain when he puts on his tennis shoes. The history is provided by the patient and a caregiver. The history is limited by a developmental delay. No water aerobics instructor was used. Pain (foot) Pain location: right [...] mg tablet Take 500 mg by mouth. Madkivee-UxbcsqmbmMq-Bbzcfzoim 3.5-500-10,000 dh-gadm-bgwt oint APPLY TOPICALLY TO INSIDE OF NOSE 3TIMES DAILY NEEDED FOR DRY PATCHES omega 9-zsc-hxc-fish oil 300 mg-100 mg- 150 mg-1,000 mg [...] with podiatry in 2 weeks Yulia Lujan APRN.ANIMAL HANDLER [facility] * Telephone Encounter - Milly Miller RN - 02/18/2023 12:27 PM EDT S: Patient's caregiver Iesha spoke with [facility] nurse regarding toe injury B: Onset of [...] are no appointments available this week that [facility] nurse can schedule. Offered first available which is 02-25-23. Declined stating that pt has an appointment on that day with his foot doctor. Asking if there is anyway for him to be seen this week. R: TE sent to the office for review. Please contact Iesha at [phone] if able to be seen sooner or with further interventions. Advised to keep covered with antibiotic ointment. Ice if painful.Understands care advice. Instructed to call back with new or worsening symptoms. Reason for Disposition Toenail is completely torn off Protocols used: Toe Tgqaui-JVGZR-UR [facility] HospitalZaypda35-12-1149 Telephone encounter Note* Telephone Encounter - Cindi Fisher MA - 01/08/2023 11:18 AM EDT Prescription Request: Last medication check: 10/18/22 Last physical exam: 04/19/22 Next scheduled appointment: 04/18/23 Last date of refill on this medication 07/09/22 31 days 5 refills [facility] [id number] Miscellaneous Notes* Telephone Encounter - Cindi Fisher MA - 01/08/2023 11:18 AM EDT Prescription Request: Last medication check: 10/18/22 Last physical exam: 04/19/22 Next scheduled appointment: 04/18/23 Last date of refill on this medication 07/09/22 31 days 5 refills documented in this [facility]08-04-2023 Telephone encounter Note* Telephone Encounter - Cindi Fisher MA - 12/07/2022 6:51 AM EDT Prescription Request: Last medication check: 10/18/22 Last physical exam: 04/19/22 Next scheduled appointment: 04/18/23 Last date of refill on this medication 08/14/22 16g 3 refills [facility] HospitalCfhlem71-50-3114 Miscellaneous Notes* Telephone Encounter - Cindi Fisher MA - 12/07/2022 6:51 AM EDT Prescription Request: Last medication check: 10/18/22 Last physical exam: 04/19/22 Next scheduled appointment: 04/18/23 Last date of refill on this medication 08/14/22 16g 3 refills documented in this [facility]06-29-2023 Telephone encounter Note* Telephone Encounter - Antonella Silva MA - 11/01/2022 10:58 AM EDT Prescription Request: Last medication check: 10/18/22 Last physical exam: 04/19/22 Next scheduled appointment: 04/18/23 Last date of refill on this medication: 05/15/22 [place] [id number] Miscellaneous Notes* Telephone Encounter - Antonella Silva MA - 11/01/2022 10:58 AM EDT Prescription Request: Last medication check: 10/18/22 Last physical exam: 04/19/22 Next scheduled appointment: 04/18/23 Last date of refill on this medication: 05/15/22 documented in this encounterSMercy [facility] HospitalNausob13-99-6480 Telephone encounter Note* Telephone Encounter - Azul Walters - 10/25/2022 3:00 PM EDT Message released to patient as written. Patient's further questions if applicable: Yes Iesha states she has a new # [phone]. Iesha states they need the order for the prescription faxed to their office at [phone]. Stating the patient should take the medication once every 12 hours as needed for pain. Please advise. Were all questions from office addressed or relayed to the patient from encounter: Yes [facility] HospitalOnzqkh08-88-2825 Miscellaneous Notes* Telephone Encounter - Azul Walters - 10/25/2022 3:00 PM EDT Message released to patient as written. Patient's further questions if applicable: Yes Iesha states she has a new # [phone]. Iesha states they need the order for the prescription faxed to their office at [phone]. Stating the patient should take the medication once every 12 hours as needed for pain. Please advise. Were all questions from office addressed or relayed to the patient from encounter: Yes * Telephone Encounter - Anotnella Silva MA - 10/24/2022 9:17 AM EDT Called Iesha, no answer and no vm. * Telephone Encounter - Antonella Silva MA - 10/23/2022 8:20 AM EDT Images from the original note were not included. YANNICK Deal CNP mg [facility] Clinical Hotbed Transfer Operator 23 hours ago (8:32 AM) HL [...] note were not included. YANNICK Deal CNP [facility] Clinical Hotbed Transfer Operator 8 minutes ago (8:32 AM) HL [...] of caller: Iesha Cali Contact phone number: [phone] Relationship to Patient: Seam Checker, Longterm Provider: Dr. Rosa Practice: [facility] Chief [...] order and to please fax this to: [phone] Attn: Laureen Gilmore. Please advise. Thank you. Best time of day caller can be reached: Any Patient advised that office/PCP has 24-48 business hours to return their call: Yes documented in this encounterSMercy Memorial HospitalBmbuuk03-33-6189 Telephone encounter Note* Telephone Encounter - Antonella Silva MA - 10/24/2022 9:17 AM EDT Called Iesha, no answer and no vm. [facility] HospitalVdkocd78-17-2010 Telephone encounter Note* Telephone Encounter - Antonella Silva MA - 10/23/2022 8:20 AM EDT Images from the original note were not included. YANNICK Deal CNP [facility] [place] Clinical Hotbed Transfer Operator 23 hours ago (8:32 AM) HL It was sent for 60 tablets. Even though it was sent saying twice a day he can use it twice a day, which is every 12 hours, as needed. Called Iesha, no answer and no vm. [address]zlakw94-64-8129 Telephone encounter Note* Telephone Encounter - Antonella Silva MA - 10/22/2022 8:41 AM EDT Images from the original note were not included. YANNICK Deal CNP [facility] [place] Clinical Hotbed Transfer Operator 8 minutes ago (8:32 AM) HL It was sent for 60 tablets. Even though it was sent saying twice a day he can use it twice a day, which is every 12 hours, as needed. I called Iesha back, no answer and vm is not set up. [address]Ndctwa45-45-2795 Telephone encounter Note* Telephone Encounter - YANNICK Deal CNP - 10/22/2022 8:32 AM EDT It was sent for 60 tablets. Even though it was sent saying twice a day he can use it twice a day, which is every 12 hours, as needed. [facility] HospitalByvqhs99-57-2421 Telephone encounter Note* Telephone Encounter - Madelin MaguireJose Manuel Puentes - 10/19/2022 2:14 PM EDT Name of caller: Iesha Viraj Contact phone number: [phone] Relationship to Patient: Seam Checker, Longterm Provider: Dr. Rosa Practice: [facility] Chief [...] order and to please fax this to: [phone] Attn: Laureen Gilmore. Please advise. Thank you. Best time of day caller can be reached: Any Patient advised that office/PCP has 24-48 business hours to return their call: Yes [facility] HospitalAmvlys58-56-0875 Evaluation + Plan note* Assessment & Plan Note - Ramiro Rosa MD - 10/18/2022 4:30 PM EDTAssociated Problem(s): Recurrent major depressive disorder, in full remission (HCC) Remission, continue Trileptal and Seroquel as prescribed by his psych. [facility] HospitalRwtavm46-66-9564 Evaluation + Plan note* Assessment & Plan Note - Ramiro Rosa MD - 10/18/2022 4:30 PM EDTAssociated Problem(s): Hyperlipidemia LDL goal <100 Controlled, continue atorvastatin 40 mg daily and fenofibrate 145 mg daily [facility] HospitalPhpilp57-49-1133 Evaluation + Plan note* Assessment & Plan Note - Ramiro Rosa MD - 10/18/2022 4:30 PM EDTAssociated Problem(s): Acute midline low back pain without sciatica Comes and goes, we will get him a refill on his nabumetone to be used twice a day as needed. [facility] HospitalMgzhcb44-28-7132 Miscellaneous Notes* Assessment & Plan Note - [...] losartan 100 mg daily documented in this [facility]06-15-2023 Evaluation + Plan note* Assessment & Plan Note - Ramiro Rosa MD - 10/18/2022 4:29 PM EDT Associated Problem(s): Essential hypertension Controlled, continue losartan 100 mg daily [facility] HospitalMvervl24-30-4495 History of Present illness Narrative* Lexus Landrum MA - 10/18/2022 2:15 PM EDT Patient verified by last name and date of . Patient wants a feltmaker in the room during during the visit. no Property Investor na Chelsea in room during visit * [...] Weight: 184 lb (83.5 kg) Height: 5' 5.5" (1.664 m) Physical Exam Vitals and nursing [...] MD 10/18/2022 4:31 PM documented in this [place] [id number] Evaluation + Plan note* Assessment & Plan Note - Ramiro Rosa MD - 08/27/2022 12:35 PM EDT Associated Problem(s): Acute midline low back pain without sciatica We will send him for x-rays of his lumbar spine. Nabumetone 500 mg twice a day for up to 7 days and he can use Tylenol in addition to that. [place] [id number] Miscellaneous Notes* Assessment & Plan Note - Ramiro Rosa MD - 08/27/2022 12:35 PM EDTAssociated Problem(s): Acute midline low back pain without sciatica We will send him for x-rays of his lumbar spine. Nabumetone 500 mg twice a day for up to 7 days and he can use Tylenol in addition to that. documented in this [place] [address]-24-2023 History of Present illness Narrative* Ramiro Rosa [...] lb 3.2 oz (81.7 kg) Height: 5' 5.5" (1.664 m) Physical Exam Vitals and nursing [...] MD 08/27/2022 12:36 PM documented in this encounterSMercy Memorial HospitalXmstwr22-16-2170 Telephone encounter Note* Telephone Encounter - YANNICK Jones CNP - 08/08/2022 9:05 AM EDT Reviewed chart. Refill appropriate. RX sent. [facility] HospitalLwpdwx76-02-9224 Miscellaneous Notes* Telephone Encounter - YANNICK Jones [...] 90 day 1 refill documented in this [facility]04-05-2023 Telephone encounter Note* Telephone Encounter - Lexus Landrum MA - 08/08/2022 8:23 AM EDT Prescription Request: Last medication check: 10/12/21 Last physical exam: 04/19/22 Next scheduled appointment: 10/18/22 CSA on file (date): na Last urine drug screen: na Last date of refill on this medication 02/19/22 loratadine, folic acid, fenofibrate, multivitamin, omega 3 all 1month 5 refills 04/19/22 atorvastatin 90 day 1 refill [facility] HospitalZitaiu21-33-7060 Telephone encounter Note* Telephone Encounter - YANNICK Deal CNP - 07/09/2022 2:58 PM EST Rx sent. Follow up as scheduled. [facility] HospitalXcqyon76-69-4089 Miscellaneous Notes* Telephone Encounter - YANNICK Deal [...] 90 day 1 refill documented in this encounterSMercy Memorial HospitalVeuobd65-54-9103 Telephone encounter Note* Telephone Encounter - Lexus Landrum MA - 07/09/2022 7:23 AM EST Prescription Request: Last medication check: 10/12/21 Last physical exam: 04/19/22 Next scheduled appointment: 10/18/22 CSA on file (date): na Last urine drug screen: na Last date of refill on this medication 02/26/22 90 day 1 refill [facility] HospitalGvgwnp86-62-3317 Telephone encounter Note* Telephone Encounter - Cindi Fisher - 05/04/2022 12:42 PM EST Iesha notifsimon. [facility] HospitalGhnvxk38-69-6880 Miscellaneous Notes* Telephone Encounter - Cindi Fisher [...] Name of caller: Iesha Contact phone number: [phone] Relationship to Patient: Seam Checker at [facility] Provider: Dr Rosa Practice: [facility] Chief Complaint/Reason for Call: Caller [...] return their call: Yes documented in this encounterSMercy Memorial HospitalPxwmrf40-04-2479 Telephone encounter Note* Telephone Encounter - YANNICK Jones CNP - 05/04/2022 12:24 PM EST The fax was reviewed. Blood pressures remain elevated. Increase losartan to 100 mg and monitor blood pressure daily, provide readings to office in 2 weeks. Will sent new rx [facility] HospitalYnnrwp86-89-6431 Telephone encounter Note* Telephone Encounter - Dmitry Benedict - 05/04/2022 11:05 AM EST URGENT: PATIENT WILL BE OUT OF BP MEDICATION THIS WEEKEND. Name of caller: Iesha Contact phone number: [phone] Relationship to Patient: Seam Checker at [facility] Provider: Dr Rosa Practice: [facility] Chief Complaint/Reason for Call: Caller [...] business hours to return their call: Yes [facility]+Reason for visit Narrative* Chief Complaint COVID COVID TEST Reason for Visit COVID-19 [facility] Work Phone: Chiyi complaint+Reason for visit Narrative* Chief Complaint COVID COVID TEST HTN Reason for Visit COVID-19 [facility] Work Phone: Consult note Author Kirk Askew [facility] Note Date/Time October 23, 2024 8:59 am [facility] Medical Records Department [address] [place] [address] Anesthesia Postop Eval I 10/23/24 0858 MR#: [id number] Acct: [id number] Name: CHAN BURCIAGA Rep #:[id number] : 1980 44 From: Kirk LUNDBERG PCP: Dr. Ramiro Rosa MD Status:[facility] Y Race: C Location: [place] [address] Anesthesia: Postop Eval I Current Vital Signs [...] CRNA Cosigner Signature: Date CC: ~ Signed [facility] Work Phone: Consult note Author Oliverio Candelaria [facility] Note Date/Time October 30, 2024 3:09 pm [facility] Medical Records Department [address] [facility] [place] [address] Anesthesia Postop Eval I 10/30/24 1508 MR#: [id number] Acct: [id number] Name: CHAN BURCIAGA Rep #:[id number] : 1980 44 From: Oliverio ordaz CRNA PCP: Dr. Ramiro Rosa MD Status:[facility] Y Race: C Location: [place] [address] Anesthesia: Postop Eval I Current Vital Signs [...] document: Postop Eval 1 completed: Yes 10/30/24 9398 <Electronically signed by Oliverio rosario CRNA> Date _ Oliverio Candelaria CRNA Cosigner Signature: Date CC: ~ Signed [facility] Work Phone: Discharge summary Author Austin Mares [facility] Note Date/Time October 09, 2024 3:53p m [facility] Medical Records Department [address] [place] [address] Instructions for Home/Discharge Instructions 10/09/24 1545 MR#: [id number] Acct: [id number] Name: CHAN BURCIAGA Rep #:[id number] : 1980 43 From: Austin avalos MD [...] risk with narcotics therefore I do recommend ungm-gxj-rnvhqod stool softeners while taking narcotics. Discharge Orders/Prescriptions [...] mg tablet 600 mg PO BID Neosporin (nfi-cxu-vnqid) 3.5mg-400 unit- 5,000 unit/gram ointment 1 applic [...] can be placed): Home, Self Care 10/09/24 2053<Electronically signed by Austin Mares MD>Austin Mares MD CC: Dr. Yamileth Aguirre MD; Dr. Ramiro Rosa MD; Dr. Salvador Rush MD ~ Signed [facility] Work Phone: Discharge summary Author Austin Mares [facility] Note Date/Time October 09, 2024 4:15p m [facility] Medical Records Department [address] [place] [address] Discharge Summary 10/09/24 1608 MR#: [id number] Acct: [id number] Name: CHAN BURCIAGA Rep #:[id number] : 1980 43 From: Austin avalos MD PCP: Dr. Ramiro Rosa MD Status:ADM IN [facility] Prov[facility] Date of Admission: 10/08/24 Primary Care [...] 3.5 mg-400 unit-5,000 unit/gram top oint (Neosporin (eqp-qdj-gzxvj)) 1 applic topical TID PRN dry skin [...] M w/ intellectual debilities living in a snf w/ PMHx: CKD stage II per GFR trending, HTN, HLD, Anxiety and Depression/Mood disorder, Obesity who presents to the [facility] ED on 10/08/24 with history [...] after morphine but discussion with patient and snf staff he rates his discomfort previously potentially [...] ureteral stone?43-year-old male who resides in a snf secondary to intellectual debilities presents to the [...] % (Auto) 68.7, Lymph % (Auto) 19.2, Attala% (Auto) 8.0, Eos % (Auto) 2.9, Baso [...] Clarity Cloudy, Urine pH 7.0, Ur Specific Rarden 1.010, Urine Protein 30 H, Urine Glucose [...] % (Auto) 53.3, Lymph % (Auto) 31.8, Attala% (Auto) 8.4, Eos % (Auto) 5.5 H, [...] onto the urinary bladder wall. Reading Location: [id number] D/C Instructions Discharge Diet: Low fat / [...] risk with narcotics therefore I do recommend lilt-rig-qiatoxz stool softeners while taking narcotics. Discharge Orders/Prescriptions [...] mg tablet 600 mg PO BID Neosporin (tdb-phl-cjuzg) 3.5mg-400 unit- 5,000 unit/gram ointment 1 applic [...] Self Care Charges/Coding Visit Charges Inpatient E&M: 05846 Disch Hosp >30min 10/09/24 1615 <Electronically signed by Austin Mares MD> Cosigner Signature (if applicable): CC: Dr. Ramiro Rosa MD; Dr. Austin Mares MD~ Signed [facility] Work Phone: Discharge summary Author Salvador Rush [facility] Note Date/Time October 23, 2024 10:1 8am [facility] Medical Records Department [address] [place] [address] Instructions for Home/Discharge Instructions 10/23/24 0849 MR#: [id number] Acct: [id number] Name: CHAN BURCIAGA Rep #:[id number] : 1980 44 From: Salvador Rush MD PCP: Dr. Ramiro Rosa MD Status:REG CAC Discharge Instructions Diet Discharge Diet: No restrictions DC O2, CPAP, BIPAP needs Home O2 Discharge instructions: No Dressing / Incision Discharge Activity: Return to Normal Activity and May Not Drive (while taking narcotic pain medications.) Dressing / Incision Call your doctor if you observe: Fever of 101 or Higher Follow Up Care Please Follow Up With: Salvador Rush MD When: Call [phone] for an appointment Test Results: Test results from this visit will be discussed in further detail at your follow- up appointment, if applicable. Discharge Plan Admission Primary Reason for Your Visit: laser stone and stent Attending Provider: Salvador Rush Primary Care Provider: Ramiro Rosa Instructions Print Language: Afghan Discharge Orders/Prescriptions Prescriptions: New cephalexin 500 mg [...] mg tablet 600 mg PO BID Neosporin (mcg-gpf-ixnwg) 3.5mg-400 unit- 5,000 unit/gram ointment 1 applic [...] CC: Dr. Ramiro Rosa MD ~ Signed [facility] Work Phone: Discharge summary Author Salvador Rush [facility] Note Date/Time October 30, 2024 1:32 pm [facility] Medical Records Department [address] [place] [address] Instructions for Home/Discharge Instructions 10/30/24 1331 MR#: [id number] Acct: [id number] Name: CHAN BURCIAGA Rep #:[id number] : 1980 44 From: Salvador Rush MD PCP: Dr. Ramiro Rosa MD Status:REG CAC Discharge Instructions Diet Discharge Diet: No restrictions DC O2, CPAP, BIPAP needs Home O2 Discharge instructions: No Dressing / Incision Discharge Activity: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
== END | disposition home or self-care (01) ==
LOC: SL 19:55
PROVIDERS: PCP Family Medicine; Visit Provider Nurse Practitioner Family
DX: G47.10 Hypersomnia, unspecified (principal)
CPT/HCPCS: 95810

== ENCOUNTER → 2025-04-14 | Outpatient (CLI) | payer MEDICAID, SELFPAY | END | disposition home or self-care (01) | LOC: SL 11:38 | PROVIDERS: PCP Family Medicine; Referring Provider Nurse Practitioner Family; Visit Provider Nurse Practitioner Family | DX: G47.33 Obstructive sleep apnea (adult) (pediatric) (principal) ==